=== PATIENT | female | born 1945 | race Caucasian/White ===

== ENCOUNTER → 2023-12-16 05:44 | Outpatient (REF) | payer MEDICARE, MEDICAID, SELFPAY ==
[2023-12-16 08:53] LABS: Hematocrit 36.8 % (37-47); Hemoglobin 11.4 g/dL (12.0-15.0); Mean Corpuscular Hgb 29.8 pg (27.0-32.0); Mean Corpuscular Volume 96.3 fL (81-99); Mean Platelet Vol. 9.2 fl (6.2-12.0); Platelet Count 438 K/mm3 (150-450); RBC Distribution Width CV 14.1 % (11.6-14.6); RBC Distribution Width SD 48.8 fl (35.1-43.9); Red Blood Count 3.82 M/mm3 (4.2-5.4); White Blood Count 13.4 K/mm3 (4.4-11.0)
[2023-12-16 09:39] LABS: ALB/GLOB Ratio 0.6 RATIO (0.9-2.4); AST(SGOT) 22 U/L (15-37); Alanine Aminotransfer ALT/SGPT 25 U/L (13-56); Albumin, Serum 2.4 g/dL (3.2-5.0); Alkaline Phosphatase 111 U/L (45-117); Anion Gap 5 (5-15); BUN 24 mg/dL (7-18); BUN/Creat Ratio 34.5 RATIO (10-20); Chloride 101 mmol/L (98-107); EST Glomerular Filtration Rate 87 mL/min (>60); Est Glom Filt Rate - Afr Amer 105 mL/min (>60); Globulin 4.2 g/dL (2.2-4.2); Glucose 142 mg/dL (74-106); Potassium 4.2 mmol/L (3.5-5.1); Protein, Total 6.6 g/dL (6.4-8.2); Sodium Level 136 mmol/L (136-145)
[2023-12-18 04:08] LABS: KEPPRA (LEVETIRACETAM) 29.4 ug/mL (10.0-40.0)
== END ==
LOC: OLS.SANC 05:44
PROVIDERS: Visit Provider Internal Medicine
DX: E78.5 Hyperlipidemia, unspecified (principal); I50.9 Heart failure, unspecified; I11.0 Hypertensive heart disease with heart failure
CPT/HCPCS: 36415; 80053; 80177; 85027

== ENCOUNTER → 2023-12-18 04:00 | Outpatient (REF) | payer MEDICARE, MEDICAID, SELFPAY ==
[2023-12-18 08:42] LABS: Hematocrit 36.3 % (37-47); Hemoglobin 11.4 g/dL (12.0-15.0); Mean Corp Hgb Conc 31.4 g/dL (32-36); Mean Corpuscular Hgb 30.2 pg (27.0-32.0); Platelet Count 377 K/mm3 (150-450); RBC Distribution Width CV 14.1 % (11.6-14.6); RBC Distribution Width SD 48.9 fl (35.1-43.9); Red Blood Count 3.78 M/mm3 (4.2-5.4); White Blood Count 10.6 K/mm3 (4.4-11.0)
[2023-12-18 08:53] LABS: Anion Gap 5 (5-15); BUN 23 mg/dL (7-18); BUN/Creat Ratio 34.7 RATIO (10-20); Calcium,Total 8.9 mg/dL (8.5-10.1); Chloride 97 mmol/L (98-107); Creatinine, Serum 0.66 mg/dL (0.55-1.02); EST Glomerular Filtration Rate 92 mL/min (>60); Est Glom Filt Rate - Afr Amer 111 mL/min (>60); Glucose 117 mg/dL (74-106); Potassium 3.6 mmol/L (3.5-5.1); Sodium Level 136 mmol/L (136-145)
[2023-12-18 09:11] LABS: Color, Urine Yellow (Yellow); Glucose, Dipstick Normal (Normal); Ketone-Dipstick Negative (Negative); Leukocyte Esterase-Dipstick 100 /ul (Negative); Nitrite-Dipstick Negative (Negative); Occult Blood-Urine Negative /ul (Negative); Protein-Dipstick Negative (Negative); Specific Gravity, Urine 1.015 (1.002-1.030); Urine Bilirubin Dipstick Negative (Negative); Urine Clarity Clear (Clear); Urine Urobilinogen Normal (Normal)
== END ==
LOC: OLS.SANC 04:00
PROVIDERS: Referring Provider Internal Medicine; Visit Provider Internal Medicine
DX: I50.9 Heart failure, unspecified (principal); J44.9 Chronic obstructive pulmonary disease, unspecified; E11.9 Type 2 diabetes mellitus without complications; Z79.899 Other long term (current) drug therapy
CPT/HCPCS: 36415; 80048; 81002; 85027; 87077; 87086; 87088; 87186

== ENCOUNTER → 2023-12-25 04:00 | Outpatient (REF) | payer MEDICARE, MEDICAID, SELFPAY ==
[2023-12-25 09:07] LABS: Hematocrit 35.5 % (37-47); Hemoglobin 11.1 g/dL (12.0-15.0); Mean Corp Hgb Conc 31.3 g/dL (32-36); Mean Corpuscular Hgb 30.2 pg (27.0-32.0); Mean Corpuscular Volume 96.5 fL (81-99); Platelet Count 219 K/mm3 (150-450); RBC Distribution Width CV 13.9 % (11.6-14.6); RBC Distribution Width SD 49.1 fl (35.1-43.9); Red Blood Count 3.68 M/mm3 (4.2-5.4); White Blood Count 8.5 K/mm3 (4.4-11.0)
[2023-12-25 09:29] LABS: Anion Gap 2 (5-15); BUN 19 mg/dL (7-18); BUN/Creat Ratio 17.3 RATIO (10-20); Chloride 96 mmol/L (98-107); EST Glomerular Filtration Rate 51 mL/min (>60); Est Glom Filt Rate - Afr Amer 62 mL/min (>60); Glucose 103 mg/dL (74-106); Potassium 3.4 mmol/L (3.5-5.1); Sodium Level 137 mmol/L (136-145)
== END ==
LOC: OLS.SANC 04:00
PROVIDERS: Referring Provider Internal Medicine; Visit Provider Internal Medicine
DX: J44.9 Chronic obstructive pulmonary disease, unspecified (principal); E11.9 Type 2 diabetes mellitus without complications; I10 Essential (primary) hypertension; E78.5 Hyperlipidemia, unspecified
CPT/HCPCS: 36415; 80048; 85027

== ENCOUNTER → 2024-05-20 | Outpatient (REF) | payer MEDICARE, MEDICAID, SELFPAY ==
[2024-05-20 08:22] LABS: Hematocrit 42.8 % (37-47); Hemoglobin 13.5 g/dL (12.0-15.0); Mean Corp Hgb Conc 31.5 g/dL (32-36); Mean Corpuscular Hgb 29.9 pg (27.0-32.0); Mean Corpuscular Volume 94.9 fL (81-99); Mean Platelet Vol. 9.7 fl (6.2-12.0); Platelet Count 280 K/mm3 (150-450); RBC Distribution Width CV 13.2 % (11.6-14.6); RBC Distribution Width SD 46.2 fl (35.1-43.9); Red Blood Count 4.51 M/mm3 (4.2-5.4); White Blood Count 11.1 K/mm3 (4.4-11.0)
[2024-05-20 08:24] LABS: Anion Gap 3 (5-15); BUN 15 mg/dL (7-18); BUN/Creat Ratio 17.3 RATIO (10-20); Calcium,Total 9.4 mg/dL (8.5-10.1); Chloride 106 mmol/L (98-107); Creatinine, Serum 0.87 mg/dL (0.55-1.02); EST Glomerular Filtration Rate 67 mL/min (>60); Est Glom Filt Rate - Afr Amer 82 mL/min (>60); Glucose 115 mg/dL (74-106); Potassium 4.1 mmol/L (3.5-5.1); Sodium Level 141 mmol/L (136-145)
[2024-05-20 08:48] LABS: Hemoglobin A1c 6.4 % (3.8-5.6)
[2024-05-22 16:11] LABS: KEPPRA (LEVETIRACETAM) 52.4 ug/mL (10.0-40.0)
== END ==
LOC: OLS.SANC 04:00
PROVIDERS: Referring Provider Internal Medicine; Visit Provider Internal Medicine
DX: J44.9 Chronic obstructive pulmonary disease, unspecified (principal); E11.9 Type 2 diabetes mellitus without complications; E78.5 Hyperlipidemia, unspecified; Z79.899 Other long term (current) drug therapy
CPT/HCPCS: 36415; 80048; 80177; 83036; 85027

== ENCOUNTER → 2024-06-05 05:00 | Outpatient (REF) | payer MEDICARE, MEDICAID, SELFPAY ==
[2024-06-08 16:09] LABS: KEPPRA (LEVETIRACETAM) 28.7 ug/mL (10.0-40.0)
== END ==
LOC: OLS.SANC 05:00
DX: Z79.899 Other long term (current) drug therapy (principal)
CPT/HCPCS: 36415; 80177

== ENCOUNTER → 2024-09-17 | Outpatient (REF) | payer MEDICARE, MEDICAID, SELFPAY | LOC: OLS.SANC 04:00 | DX: G40.89 Other seizures (principal); Z79.899 Other long term (current) drug therapy | CPT/HCPCS: 36415; 80177 ==

== ENCOUNTER → 2024-09-25 | Outpatient (REF) | payer MEDICARE, MEDICAID, SELFPAY ==
[2024-09-29 16:09] LABS: KEPPRA (LEVETIRACETAM) 28.8 ug/mL (10.0-40.0)
== END ==
LOC: OLS.SANC 05:00
PROVIDERS: Visit Provider Internal Medicine
DX: Z79.899 Other long term (current) drug therapy (principal)
CPT/HCPCS: 36415; 80177

== ENCOUNTER → 2024-11-16 | Outpatient (REF) | payer MEDICARE, SELFPAY ==
[2024-11-16 09:59] LABS: Hematocrit 37.4 % (37-47); Hemoglobin 11.6 g/dL (12.0-15.0); Mean Corpuscular Hgb 29.9 pg (27.0-32.0); Mean Corpuscular Volume 96.4 fL (81-99); Mean Platelet Vol. 9.7 fl (6.2-12.0); Platelet Count 315 K/mm3 (150-450); RBC Distribution Width CV 13.8 % (11.6-14.6); RBC Distribution Width SD 48.7 fl (35.1-43.9); Red Blood Count 3.88 M/mm3 (4.2-5.4); White Blood Count 8.8 K/mm3 (4.4-11.0)
[2024-11-16 10:14] LABS: Anion Gap 7 (5-15); BUN 12 mg/dL (4-19); BUN/Creat Ratio 15.5 RATIO (10-20); Calcium,Total 9.4 mg/dL (7.6-11.0); Carbon Dioxide 29.8 mmol/L (21.0-32.0); Chloride 104 mmol/L (98-108); EST Glomerular Filtration Rate 76 (>60); Glucose 98 mg/dL (70-99); Potassium 4.6 mmol/L (3.3-5.1); Sodium Level 142 mmol/L (133-145)
== END ==
LOC: OLS.SANC 05:00
DX: I50.9 Heart failure, unspecified (principal); J44.9 Chronic obstructive pulmonary disease, unspecified; E11.9 Type 2 diabetes mellitus without complications; E78.5 Hyperlipidemia, unspecified
CPT/HCPCS: 36415; 80048; 85027

== ENCOUNTER → 2024-12-30 | Outpatient (REF) | payer MEDICARE, SELFPAY ==
--- OUTSIDE RECORDS SUMMARY | 2024-12-30 04:09 | XMS RPT_ITS | CCD ---
Author Organization [facility] Care Team Providers Care Delicatessen Clerk Name Role Phone Emanuel Novak Unavailable Unavailable VAUGHN, ROMÁN Unavailable Unavailable VAUGHN, ROMÁN Unavailable Unavailable VAUGHN, ROMÁN Unavailable Unavailable VAUGHN, ROMÁN Unavailable Unavailable VAUGHN, ROMÁN Unavailable Unavailable OCTAVIA WILDE Unavailable Unavailable VAUGHN, ROMÁN Unavailable Unavailable VAUGHN, ROMÁN Unavailable Unavailable Cid, Mariaelena Unavailable Unavailable VAUGHN, ROMÁN Unavailable Unavailable VAUGHN, ROMÁN Unavailable Unavailable Hashiguchi, Luke Unavailable Unavailable VAUGHN, ROMÁN Unavailable Unavailable VAUGHN, ROMÁN Unavailable Unavailable Radwany, Umang Unavailable Unavailable VAUGHN, ROMÁN Unavailable Unavailable VAUGHN, ROMÁN Unavailable Unavailable Radwany, Umang Unavailable Unavailable VAUGHN, ROMÁN Unavailable Unavailable VAUGHN, ROMÁN Unavailable Unavailable Zaira EVANS, Shivani Tesfaye Primary Care Prov ider Savage Elise BURGER Unavailable Plate DO, Tami S Primary Care Provider Dahiana Martin MD Unavailable Plate DO, Tami S Primary Care Provider Dahiana Martin MD Unavailable Plate DO, Tami S Primary Care Provider Dahiana Martin MD Unavailable Plate DO, Tami S Primary Care Provider Dahiana Martin MD Unavailable Veronica EVANS MD, Dahiana Primary Care Provider Plate DO, Tami S Primary Care Provider Veronica EVANS MD, Dahiana Primary Care Provider Plate DO, Tami S Primary Care Provider Vaughn DO, Antonio Primary Care Provider Clement DO, Barbara Unavailable Clement DO, Barbara Unavailable Clement DO, Barbara Unavailable Dawood Carcamo RN Unavailable Unavailable Vaughn DO, Antonio Unavailable BILLY HOBSON Attending Unavailable No Family, Physician Primary Care Unavailable [place] DO, Susan Unavailable Vaughn DO, Antonio Primary Care Provider Dawood Carcamo RN Unavailable Unavailable Vaughn DO, Antonio Primary Care Provider [phone] VAUGHN, ANTONIO Primary Care Unavailable PLATE, TAMI S Admitting Unavailable PLATE, TAMI S Attending Unavailable VADIM HAIRSTONOSI Admitting Unavailable VAUGHN, ANTONIO Primary Care Unavailable LEW DUBON Attending Unavailera Acevedo MD [facility] Primary Care Provider HectorMayur Primary Care Provider Kristina EVANS, Dr. Dickerson Attending Provider Unava ilable Kristina EVANS, Dr. Dickerson Referring Provider Unava ilable Luis Whittaker Attending Provider Unavailab JASON Jimenez Attending Unavailable MAYUR YOUNG Primary Care Unavailable MORANJASON SEXTON Attending Unavailable HECTOR MAYUR Primary Care Unavailable VONNIE LOVE Attending Unavailable [facility] Primary Care Unavailable BA CLEMENT Attending Unavailable SELWYN PENA Admitting Unavailable MURIEL MCKEON Consulting Unavailable MAYUR YOUNG Primary Care Unavailable VONNIE LOVE Referring Unavailable HECTOR MAYUR Primary Care Unavailable Sadie Barnes MD Attending Provider Unava ilable Luis Whittaker Attending Unavailable Sadie Godfrey Attending Unavail able Katsaros RAJAN, Luis Attending Unavailable Capricea Sadie TOLENTINO Attending Unavail able Katsaros Luis TOLENTINO Attending Unavailable Desire TOLENTINO, Luis Referring Unavailable Katsaros RAJAN, Luis Referring Unavailable Katsaros RAJAN, Luis Attending Unavailable Katsaros RAJAN, Luis Referring Unavailable Katsaros OLS, Luis Attending Unavailable AcevedoJayla Morales Attending Unavailable Acevedo Jayla TOLENTINO Attending Unavailable Acevedo Jayla TOLENTINO Referring Unavailable Antonio Vaughn DO Primary Care Provider Adrian Antonio BURGER Unavailable Barbara Herman DO Unavailable Susan Rodriguez DO Unavailable ACEVEDO, ISIAH Primary Care Unavailable ANTONIO VAUGHN M Primary Care Unavailable LEYDI LEON Referring Unavailable ANTONOI VAUGHN M Primary Care Unavailable SELF Referring Unavailable ACEVEDO, ISIAH Primary Care Unavailable MINISTERIO ESPOSITO Attending Unavailable ACEVEDO, ISIAH Primary Care Unavailable YAZMIN MITCHELL Admitting Unavailable ACEVEDO, ISIAH Primary Care Unavailable YAZMIN MITCHELL Attending Unavailable ACEVEDO, ISIAH Primary Care Unavailable MARVA JACOBS Attending Unavailable HECTOR BERGER Admitting UnavailLAUREN Conrad Consulting Unavailable ACEVEDO, ISIAH Primary Care Unavailable ELIZA LION Attending Unavailable Allergies Allergy Classification Reported Allergen(s) Allergy Type Date of Onset Reaction(s) Facility Acetaminophen (3 sources) Acetaminophen Drug Allergy 6 GI Upset [facility] Work Phone: Nitrate Vasodilator (3 sources) Nitroglycerin Drug Allergy 5 Cough [facility] NSAIDs (3 sources) nabumetone Drug Allergy 5 GI Upset [facility] Work Phone: Opioid Agonists (6 sources) Codeine Drug Allergy 5 Rash, Other: See Comments [facility] Proton Pump Inhibitors (3 sources) Omeprazole Drug Allergy 5 Diarrhea [facility] (20 sources) Acetaminophen; Translations: [ACETAMINOPHEN] Drug Allergy 6 GI Upset [facility] Work Phone: (20 sources) Codeine; Translations: [CODEINE] Drug Allergy 5 Rash, Unknown [facility] (20 sources) nabumetone; Translations: [NABUMETONE] Drug Allergy 5 GI Upset [facility] (20 sources) Nitroglycerin; Translations: [NITROGLYCERIN] Drug Allergy 5 Cough, Unknown [facility] (20 sources) Omeprazole; Translations: [OMEPRAZOLE] Drug Allergy 5 Diarrhea [facility] (20 sources) Propoxyphene; Translations: [PROPOXYPHENE] Drug Allergy 5 Other: See Comments [facility] (8 sources) Acetaminophen Drug Allergy 6 Nausea And Vomiting [facility] (8 sources) Acetaminophen / Codeine Drug Allergy 4 [facility] (8 sources) nabumetone Drug Allergy 5 Nausea And Vomiting [facility] (8 sources) Nitroglycerin Allergy to substance 5 [facility] Medications Current Medications Medication Drug Class(es) Dates Sig (Normalized) Sig (Original) [id number] 200 actuat albuterol 0.09 mg/actuat metered dose inhaler (20 sources) beta2-Adrenergic Agonist Start: 12-11-2023 take 2 puff(s) by inhalation every six hours as needed for wheezing albuterol HFA (PROVENTIL HFA, VENTOLIN HFA) 90 mcg/actuation inhaler Inhale 2 Puffs as instructed every 6 hours as needed for wheezing/shortnes s of breath. 12/11/2023 Active Start: 11-18-2023 take 2 puff(s) by in halation three times daily Ventolin HFA 108 (90 Base) MCG/ACT inhaler Inhale 2 puffs three times daily. 11/18/2023 Active Start: 04-05-2023 End: 11-15-2023 take 2 puff(s) by mouth every six hours as needed albuterol HFA (PROVENTIL HFA, VENTOLIN HFA) 90 mcg/actuation inhaler Indications: MARY (obstructive sleep apnea) INHALE 2 PUFFS BY MOUTH EVERY 6 HOURS INSTRUCTED NEEDED 18 g 1 11/15/2023 Active Start: 03-09-2023 take 2 puff(s) by mo uth every six hours as needed albuterol HFA (PROVENTIL HFA, VENTOLIN HFA) 90 mcg/actuation inhaler Indications: MARY (obstructive sleep apnea) INHALE 2 PUFFS BY MOUTH EVERY 6 HOURS INSTRUCTED NEEDED 8.5 g 11 03/09/2023 Active Start: 12-30-2020 End: 09-21-2022 take 2 puff(s) by mouth every six hours as needed albuterol HFA (PROVENTIL HFA, VENTOLIN HFA) 90 mcg/actuation inhaler Indications: MARY (obstructive sleep apnea) INHALE 2 PUFFS BY MOUTH EVERY 6 HOURS INSTRUCTED NEEDED 8.5 g 11 09/21/2022 Suspended Comment on above: INHALE 2 PUFFS BY MO [facility] EVERY 6 HOURS INSTRUCTED NEEDED albuterol 0.833 mg/ml / ipratropium bromide 0.167 mg/ml inhalation solution (6 sources) Anticholinergic, beta2-Adrenergic Agonist Start: 10-19-2024 End: 11-18-2024 ipratropium-albuterol (Duo-Neb) 0.5-2.5 mg/3 mL nebulizer solution Indications: Chronic bronchitis, unspecified chronic bronchitis type (HCC) Take 3 mL by nebulization 4 times daily. 180 mL 1 11/18/2024 Active Start: 07-10-2024 End: 07-15-2024 3 mL, Nebulization, 3 times daily, First dose (after last modification) on Sat07/10/24 at 2000 Start: 07-07-2024 End: 07-10-2024 3 mL, Nebulization, 4 times daily, First dose on Sat07/07/24 at 2200 amoxicillin 875 mg oral tablet (1 source) Penicillin-class Antibacterial Start: 12-29-2023 End: 01-03-2024 take 1 tablet by mouth every twelve hours amoxicillin (AMOXIL) 875 mg tablet Take 1 tablet by mouth every 12 hours for 5 days. 10 tablet 0 12/29/2023 01/03/2024 Active amoxicillin 875 mg / clavulanate 125 mg oral tablet (2 sources) Penicillin-class Antibacterial Start: 08-15-2022 End: 08-20-2022 take 1 tablet by mouth twice daily amoxicillin-clavu lanic acid (AUGMENTIN) 875-125 mg per tablet Take 1 tablet by mouth twice daily for 5 days. 10 tablet 0 08/15/2022 08/20/2022 Active Comment on above: Take 1 tablet by jose juan twice daily for 5 days. apixaban 5 mg oral tablet (1 source) Factor Xa Inhibitor Start: 12-23-2024 take 1 tablet by mouth twice daily apixaban (ELIQUIS) 5 mg tab(s) Indications: Atrial flutter, unspecified type (HCC) Take 1 tablet by mouth two times a day. 90 tablet 3 12/23/2024 Active atorvastatin 80 mg oral tablet (20 sources) HMG-CoA Reductase Inhibitor Start: 07-18-2023 End: 07-15-2024 take 1 tablet by mouth once daily at bedtime atorvastatin (LIPITOR) 80 mg tablet Indications: Type 2 diabetes mellitus with complication, without long-term current use of insulin (HCC) Take 1 tablet by mouth daily at bedtime. 90 tablet 1 11/15/2023 Active Start: 02-02-2021 End: 04-06-2023 take 1 tablet by mouth once daily at bedtime atorvastatin (LIPITOR) 80 mg tablet Indications: Type 2 diabetes mellitus with complication, without long-term current use of insulin (HCC) Take 1 tablet by mouth daily at bedtime. 90 tablet 1 04/05/2023 Active Comment on above: TAKE 1 TABLET BY JOSE JUAN TH AT BEDTIME Take 1 tablet by jose juan th daily at bedtime. TAKE 1 TABLET BY JOSE JUAN TH EVERY NIGHT AT BEDTIME D7-ojpkv-L35-coffee -phosphatid 1.7 mg-400 mcg- 2.4 mcg cap (20 sources) Start: 12-11-2023 take 1 capsule by mouth once daily L2-higzz-X84-coffe e-phosphatid 1.7 mg-400 mcg- 2.4 mcg cap Take 1 capsule by mouth once daily. 12/11/2023 Active Start: 12-11-2023 take 1 capsule by mouth once daily R7-wtzcb-C29Q08-dzsozw-qsxlakskvc 1.7 mg-40 0 mcg- 2.4 mcg cap Take 1 capsule by mouth once daily. 0 12/11/2023 Active Start: 11-15-2023 take 1 capsule by mouth once daily O8-scqsz-O27J67-kjnpwp-kgwomrrdxp 1.7 mg-40 0 mcg- 2.4 mcg cap Take 1 capsule by mouth once daily. 90 capsule 1 11/15/2023 Active End: 11-15-2023 take 1 capsule by mouth once daily A4-rbunm-Q17H07-ufelhx-huuqcomudz 1.7 mg-40 0 mcg- 2.4 mcg cap Take 1 capsule by mouth once daily. 0 11/15/2023 Discontinued take 1 capsule by mouth once daily A2-mecun-H25G34-zwtuxw-dkjhhddqol 1.7 mg-40 0 mcg- 2.4 mcg cap Take 1 capsule by mouth once daily. 0 Active take 1 capsule by mouth once daily S9-ymeuq-F86N69-xpxqbf-vesoihjopf 1.7 mg-40 0 mcg- 2.4 mcg cap Take 1 capsule by mouth once daily. 0 Suspended Comment on above: Take 1 capsule by mo [facility] once daily. biotin 10 mg oral capsule (20 sources) Start: 12-11-2023 take 1 capsule by mouth once daily Biotin 10,000 mcg cap Take 1 capsule by mouth once daily. 12/11/2023 Active Start: 12-11-2023 biotin 10 MG c apsule Take 10,000 mcg by mouth daily. 12/11/2023 Active End: 12-09-2024 take 1 tablet by mouth once daily BIOTIN 10,000 TABLET Take 1 tablet by mouth once daily. 12/09/2024 Discontinued [facility] BI[facility]IN 10,000 TABLET Take 1 tablet by mouth once daily. Active take 1 tablet by jose juan once daily BIOTIN 10,000 TABLET Take 1 tablet by mouth once daily. 0 Active Comment on above: Take 1 tablet by jose juan once daily. bisacodyl 5 mg delayed release oral tablet (2 sources) Stimulant Laxative take 1 tablet by mouth every twenty-four hours as needed for constipation bisacodyl (Bisacodyl EC) 5 MG EC tablet Take 5 mg by mouth Daily as needed for constipation. Do not crush, chew, or split. Active calcium carbonate 1250 mg / cholecalciferol 200 unt oral tablet (20 sources) Vitamin D Start: 03-09-20 take 1 tablet by mouth once daily in the morning calcium-carbonate -vitamin D3 (OYSTER SHELL CALCIUM-VITAMIN D) 500 mg-5 mcg (200 unit) per tablet TAKE 1 TABLET BY MOUTH EVERY MORNING 30 tablet 5 10/08/2023 Active Start: 05-04-2022 End: 12-28-2022 take 1 tablet by mouth once daily in the morning fulwhzu-pocmvuvux-rgpfcey D3 (OYSTER SHE LL CALCIUM-VITAMIN D) 500 mg-5 mcg (200 unit) per tablet TAKE 1 TABLET BY MOUTH EVERY MORNING 30 tablet 5 12/28/2022 Suspended Start: 03-17-2021 End: 02-26-2022 take 1 tablet by mouth once daily in the morning kfqmqsp-auiophrda-dufxvua D3 (OYSTER SHE LL CALCIUM-VITAMIN D) 500 mg(1,250mg) -200 unit per tablet TAKE 1 TABLET BY MOUTH EVERY MORNING 31 tablet 11 03/17/2021 02/26/2022 Discontinued (.All criteria met for discontinuation) Comment on above: TAKE 1 TABLET BY JOSE JUAN TH EVERY MORNING Calcium Carbonate-Vitamin D (Oyster Shell Calcium/D) 500-5 MG-MCG tablet (10 sources) Start: take 1 tablet by mouth once daily Calcium Carbonate-Vitamin D (Oyster Shell Calcium/D) 500-5 MG-MCG tablet Take 1 tablet by mouth daily. 10/08/2023 Active cefdinir 300 mg oral capsule (3 sources) Cephalosporin Antibacterial Start: End: cefdinir (OMNICEF) 300 mg capsule Take 1 capsule by mouth two times a day for 1 day. Patient should start on November 06, 2024. 2 capsule 11/06/2024 11/07/2024 Active cetirizine hydrochloride 10 mg oral tablet (20 sources) Histamine-1 Receptor Antagonist Start: take 0.5 tablet by mouth once daily cetirizine (ZyrTEC) 10 MG tablet Take 0.5 tablets (5 mg) by mouth daily. 0 07/14/2024 Active Start: 07-09-2024 End: 07-15-2024 take 5 mg by mouth once daily 5 mg, Oral, Daily, First dose on [place] 07/09/24 at 0800 Start: 03-09-2023 End: 07-14-2024 take 1 tablet by mouth once daily cetirizine (ZYRTEC) 10 mg tablet Indications: Allergic rhinitis, unspecified seasonality, unspecified trigger Take 1 tablet by mouth once daily. 31 tablet 11 03/09/2023 Active Start: 02-13-2023 End: 03-07-2023 take 1 tablet by mouth once daily cetirizine (ZYRTEC) 10 mg tablet Indications: Allergic rhinitis, unspecified seasonality, unspecified trigger TAKE 1 TABLET BY MOUTH EVERY DAY 31 tablet 11 03/07/2023 Active Start: 05-03-2021 End: 01-29-2023 take 1 tablet by mouth once daily cetirizine (ZYRTEC) 10 mg tablet Take 1 tablet by mouth once daily. 30 tablet 5 08/02/2022 01/29/2023 Active Comment on above: Take 1 tablet by jose juan once daily. TAKE 1 TABLET BY JOSE JUAN TH EVERY DAY Cobalamin Combinations (Neuriva Plus) capsule (10 sources) Start: 11-15-19 take 1 capsule by mouth once daily Cobalamin Combinations (Neuriva Plus) capsule Take 1 capsule by mouth daily. 11/15/2023 Active diclofenac sodium 0.01 mg/mg topical gel (20 sources) Nonsteroidal Anti-inflammatory Drug Start: 04-05-20 apply 4 g topically every six hours as needed diclofenac (VOLTAREN) 1 % topical gel Apply 4 g to affected area four times a day as needed (Pain). 450 g 2 04/05/2023 Active Start: 03-09-2023 apply 4 g topically every six hours as needed diclofenac (VOLTAREN) 1 % topical gel Apply 4 g to affected area four times daily as needed (Pain). 450 g 2 03/09/2023 Active Start: 05-04-2022 apply 4 g topically every six hours as needed diclofenac (VOLTAREN) 1 % topical gel Apply 4 g to affected area four times daily as needed (Pain). 450 g 2 05/04/2022 Suspended Start: 02-14-2022 End: 05-04-2022 diclofenac (VOLTAREN) 1 % to pical gel Comment on above: Apply 4 g to affecte d area four times daily as needed (Pain). Apply 4 g to affecte d area four times a day as needed (Pain). doxycycline monohydrate 100 mg oral tablet (2 sources) Tetracycline-class Drug Start: 3 End: 3 take 1 tablet by mouth twice daily doxycycline monohydrate 100 mg tablet Take 1 tablet by mouth twice daily for 5 days. 10 tablet 0 08/15/2022 08/20/2022 Active Comment on above: Take 1 tablet by jose juan twice daily for 5 days. fluticasone propionate 0.05 mg/actuat metered dose nasal spray (20 sources) Corticosteroid Start: 4 take 1 spray(s) nasal route once daily fluticasone (FLONASE ALLERGY RELIEF) 50 mcg/actuation nasal spray Use 1 [place] in each nostril once daily. 12/11/2023 Active Start: 11-15-2023 fluticasone (F lonase) 50 MCG/ACT nasal spray 1 spray daily. 11/15/2023 Active Start: 07-24-2023 End: 11-15-2023 take 1 spray(s) nasal route once daily fluticasone (FLONASE) 50 mcg/actuation nasal spray Indications: Allergic rhinitis, unspecified seasonality, unspecified trigger Use 1 [place] in each nostril once daily. 16 g 11/15/2023 Active Start: 04-05-2023 End: 04-12-2023 take 1 spray(s) nasal route once daily fluticasone (FLONASE) 50 mcg/actuation nasal spray Indications: Allergic rhinitis, unspecified seasonality, unspecified trigger Use 1 [place] in each nostril once daily. 16 g 0 04/12/2023 Active Start: 11-02-2018 End: 02-26-2022 take 1 spray(s) nasal route once daily fluticasone (FLONASE) 50 mcg/actuation nasal spray USE 1 SPRAY IN EACH NOSTRIL EVERY DAY 16 g 11 11/02/2018 02/26/2022 Discontinued (.All criteria met for discontinuation) Comment on above: USE 1 SPRAY IN EACH NOSTRIL EVERY DAY Use 1 [place] in each nostril once daily. isopropyl alcohol 0.7 ml/ml medicated pad (20 sources) Start: 11-18-2023 Alcohol Swabs (Alcohol Prep) 70 % pads 11/18/2023 Active Start: 03-09-2023 End: 10-23-2023 alcohol swabs (ALCOHOL PREP PADS) Indications: Type 2 diabetes mellitus with complication, without long-term current use of insulin (HCC) APPLY TOPICALLY TO AFFECTED AREA(S) EVERY DAY DIRECTED 100 Each 11 03/09/2023 10/23/2023 Discontinued (Adjust Sig - Block E-Cancel) Start: 03-17-2021 End: 03-07-2023 alcohol swabs (ALCOHOL PREP PADS) Indications: Type 2 diabetes mellitus with complication, without long-term current use of insulin (HCC) APPLY TOPICALLY TO AFFECTED AREA(S) EVERY DAY DIRECTED 100 Each 11 03/07/2023 Active Comment on above: APPLY 1 APPLICATION TOPICALLY TO THE AFFECTED AREA(S) EVERY DAY APPLY TOPICALLY TO A FFECTED AREA(S) EVERY DAY DIRECTED levETIRAcetam 750 mg oral tablet (20 sources) Start: 12-29-19 End: 08-11-19 take 1 tablet by mouth twice daily levETIRAcetam (Keppra) 750 MG tablet Take 750 mg by mouth twice a day. 11/15/2023 Active Start: 08-04-2021 End: 12-20-2022 take 1 tablet by mouth twice daily levETIRAcetam (KEPPRA) 750 mg tablet Indications: Seizure disorder (HCC) Take 1 tablet by mouth twice daily. 180 tablet 0 09/21/2022 Active take 1 tablet by jose juan th twice daily levETIRAcetam (KEPPRA) 500 mg tablet Take 500 mg by mouth two times a day. Active Comment on above: TAKE 1 TABLET BY JOSE JUAN TH TWICE DAILY Take 1 tablet by jose juan th twice daily. Take 1 tablet by jose juan th two times a day. magnesium hydroxide 80 mg/ml oral suspension (2 sources) take 30 mL by mouth once daily magnesium hydroxide (Milk of Magnesia) 400 MG/5ML suspension Take 30 mL by mouth Nightly. Active magnesium oxide 400 mg oral tablet (9 sources) Start: 5 End: 5 take 1 tablet by mouth once daily magnesium oxide (MAG-OX) 400 mg (241.3 mg magnesium) tablet Take 1 tablet by mouth once daily. 30 tablet 11/05/2024 Active metFORMIN hydrochloride 1000 mg oral tablet (20 sources) Biguanide Start: 2 End: 5 take 1 tablet by mouth twice daily at mealtime metFORMIN (GLUCOPHAGE) 1,000 mg tablet Indications: Type 2 diabetes mellitus with complication, without long-term current use of insulin (HCC) Take 1 tablet by mouth two times a day with meals. 180 tablet 2 11/15/2023 Active Start: 09-01-2021 take 1 tablet by jose juan th twice daily at mealtime metFORMIN (GLUCOPHAGE) 1,000 mg tablet Indications: Type 2 diabetes mellitus with complication, without long-term current use of insulin (HCC) TAKE 1 TABLET BY MOUTH TWICE DAILY WITH MEALS 62 tablet 11 09/01/2021 Active Comment on above: TAKE 1 TABLET BY JOSE JUAN TH TWICE DAILY WITH MEALS Take 1 tablet by jose juan th twice daily with meals. Take 1 tablet by jose juan th two times a day with meals. multivitamin with minerals (VISION/OPTIGEN) tablet (20 sources) Start: 03-09-2023 take 1 tablet by mouth once daily multivitamin with minerals (VISION/OPTIGEN) tablet Take 1 tablet by mouth once daily. 250 tablet 3 03/09/2023 Suspended Start: 03-09-2023 take 1 tablet by jose juan th once daily multivitamin with minerals (VISION/OPTIGEN) tablet Take 1 tablet by mouth once daily. 250 tablet 3 03/09/2023 Active take 1 tablet by jose juan th once daily multivitamin with minerals (VISION/OPTIGEN) tablet Take 1 tablet by mouth once daily. 0 Suspended take 1 tablet by jose juan th once daily multivitamin with minerals (VISION/OPTIGEN) tablet Take 1 tablet by mouth once daily. 0 Active Comment on above: Take 1 tablet by jose juan th once daily. mupirocin 0.02 mg/mg topical ointment (20 sources) RNA Synthetase Inhibitor Antibacterial Start: 03-09-2023 End: 03-14-2023 mupirocin (BACTROBAN) 2 % ointment Indications: Skin lesion of breast Apply 1 application to affected area three times daily for 5 days. 22 g 0 03/09/2023 03/14/2023 Active Start: 01-30-2022 mupirocin (TL TROBAN) 2 % ointment Indications: Skin lesion of breast Apply 1 application to affected area three times daily. 22 g 0 01/30/2022 Suspended Comment on above: Apply 1 application to affected area three times daily. Apply 1 application to affected area three times daily for 5 days. nystatin 100 unt/mg topical powder (20 sources) Polyene Antifungal Start: 11-18-2023 Nystop [id number] UNIT/GM powder Apply 1 Application topically daily. 11/18/2023 Active Start: 04-05-2023 nystatin (MYCO STATIN) powder APPLY TOPICALLY TO AFFECTED AREAS TWICE DAILY 60 g 11 04/05/2023 Active Start: 03-09-2023 nystatin (MYCO STATIN) powder APPLY TOPICALLY TO AFFECTED AREAS TWICE DAILY 60 g 11 03/09/2023 Active Start: 11-26-2022 nystatin (MYCO STATIN) powder APPLY TOPICALLY TO AFFECTED AREAS TWICE DAILY 60 g 11 11/26/2022 Suspended Start: 12-06-2020 End: 12-06-2021 nystatin (NYSTOP) powder ABDIRIZAK LY TOPICALLY TO AFFECTED AREA(S) two TIMES DAILY 60 g 11 12/06/2021 Active Comment on above: APPLY TOPICALLY TO A FFECTED AREA(S) two TIMES DAILY APPLY TOPICALLY TO A FFECTED AREAS TWICE DAILY polyethylene glycol 3350 04471 mg powder for oral solution (11 sources) Osmotic Laxative Start: 11-05-2024 polyethylene glycol 3350 (MIRALAX) 17 gram/dose powder Take 17 g by mouth once daily. Dissolve dose in 4 - 8 ounces of liquid and take as directed. 476 g 11/05/2024 Active Start: 11-05-2024 polyethylene g lycol, PEG, 3350 (Glycolax) 17 GM/SCOOP powder Take 17 g by mouth daily. 11/05/2024 Active Start: 07-07-2024 End: 07-15-2024 take 17 g by mouth every twenty-four hours as needed for constipation polyethylene glycol 400 4 mg/ml / propylene glycol 3 mg/ml ophthalmic solution (1 source) Start: 11-21-2023 Polyethyl Glycol-Propyl Glycol (Systane) 0.4-0.3 % solution 1 drop 2 times daily. 11/21/2023 Active polyvinyl alcohol 0.014 ml/ml ophthalmic solution (20 sources) Start: 04-05-2023 End: 09-14-2024 polyvinyl alcohol (LIQUIFILM TEARS) 1.4 % ophthalmic solution Use 1 Drop in both eyes as needed. 15 mL 11/21/2023 Active Comment on above: Use 1 Drop in both e yes as needed. prednisoLONE acetate 10 mg/ml ophthalmic suspension (20 sources) Corticosteroid Start: 10-26-2023 take 1 drop(s) into the eye(s) every eight hours prednisoLONE acetate (Pred-Forte) 1 % ophthalmic suspension Administer 1 drop into affected eye(s) every 8 hours. 10/26/2023 Active Start: 06-13-2020 End: 02-26-2022 prednisoLONE acetate (PRED F ORTE, ECONOPRED PLUS) 1 % ophthalmic suspension Use 1 Drop in the left eye four times daily. 5 mL 1 06/13/2020 02/26/2022 Discontinued prednisoLONE noemy benitez (PRED FORTE) 1 % ophthalmic suspension Use 1 Drop in both eyes three times a day. Active End: 12-09-2024 prednisoLONE acetate (PRED F ORTE, ECONOPRED PLUS) 1 % ophthalmic suspension 1 Drop three times a day. Both eyes 12/09/2024 Discontinued prednisoLONE noemy benitez (PRED FORTE, ECONOPRED PLUS) 1 % ophthalmic suspension 1 Drop three times a day. Both eyes 0 Active Comment on above: Use 1 Drop in the le ft eye four times daily. 1 Drop three times a day. 1 Drop three times a day. Both eyes predniSONE 20 mg oral tablet (6 sources) Start: 07-13-2024 End: 07-18-2024 take 1 tablet by mouth once daily predniSONE (Deltasone) 20 MG tablet Take 1 tablet (20 mg) by mouth daily for 2 doses. 2 tablet 07/16/2024 07/18/2024 Active Start: 12-12-2023 End: 12-14-2023 take 2 tablets by mouth once daily predniSONE (DELTASONE) 20 mg tablet Take 2 tablets by mouth once daily for 2 doses. 4 tablet 0 12/12/2023 12/14/2023 Active Start: 05-18-2023 End: 05-20-2023 take 2 tablets by mouth once daily predniSONE (DELTASONE) 20 mg tablet Take 2 tablets by mouth once daily for 2 doses. 4 tablet 0 05/18/2023 05/20/2023 Suspended Comment on above: Take 2 tablets by [facility] once daily for 2 doses. sennosides, residential 8.6 mg oral tablet (8 sources) Start: 11-06-19 25 End: 12-06-19 25 take 1 tablet by mouth once daily sennosides (Senokot) 8.6 MG tablet Take 8.6 mg by mouth daily. 11/05/2024 12/05/2024 Active 30 actuat umeclidinium 0.0625 mg/actuat / vilanterol 0.025 mg/actuat dry powder inhaler (20 sources) Anticholinergic, beta2-Adrenergic Agonist Start: 05-18-20 23 End: 11-15-19 24 take 1 dose by inhalation once daily umeclidinium-vilant key (ANORO ELLIPTA) 62.5-25 mcg/actuation inhaler Inhale 1 Inhalation as instructed once daily. 60 Each 3 11/15/2023 Active Comment on above: Inhale 1 Inhalation as instructed once daily. Vitamin E external oil (20 sources) Start: 10-03-19 Vitamin E external oil Apply 1 application to affected area once daily. 30 mL 10/03/2023 Active Start: 10-03-2023 Vitamin E exte rnal oil Apply 1 application to affected area once daily. 30 mL 0 10/03/2023 Suspended Start: 10-03-2023 Vitamin E exte rnal oil Apply 1 application to affected area once daily. 30 mL 0 10/03/2023 Active Start: 06-10-2023 Vitamin E exte rnal oil Apply 1 application to affected area once daily. 30 mL 0 06/10/2023 Active Start: 04-24-2023 End: 06-10-2023 Vitamin E external oil Apply 1 application to affected area once daily. 30 mL 0 04/24/2023 06/10/2023 Discontinued Start: 04-24-2023 Vitamin E exte rnal oil Apply 1 application to affected area once daily. 30 mL 0 04/24/2023 Suspended Start: 04-24-2023 Vitamin E exte rnal oil Apply 1 application to affected area once daily. 30 mL 0 04/24/2023 Active Comment on above: Apply 1 application to affected area once daily. Completed/Discontinued Medications Medication Drug Class(es) Dates Sig (Normalized) Sig (Original) Acetaminophen (14 sources) Start: 07-07-2024 End: 07-15-2024 take 1 tablet by mouth every six hours as needed for pain and fever acetaminophen (Tylenol) tablet 650 mg Start: 07-07-2024 End: 07-07-2024 650 mg, Oral, Once, On Sat at 1455, For 1 dose, Maximum dose of acetaminophen is 4000 mg from all sources in 24 hours. take 2 capsules by m outh every six hours as needed acetaminophen 325 mg cap Take 650 mg by mouth every 6 hours as needed for pain or fever (specify temp.). Active take 325 mg rectal r oute every four hours as needed for pain acetaminophen (Tylenol) 325 MG suppository Insert 325 mg into the rectum every 4 hours as needed for mild pain (1-3). Active aspirin 81 mg delayed release oral tablet (20 sources) Platelet Aggregation Inhibitor, Nonsteroidal Anti-inflammatory Drug Start: 07-08-2024 End: 07-15-2024 take 81 mg by mouth once daily 81 mg, Oral, Daily, First dose on Sat07/08/24 at 1150, Do not crush, chew, or split. Start: 12-11-2023 take 1 tablet by jose juan th once daily aspirin 81 mg chewable tablet Take 1 tablet by mouth once daily. 12/11/2023 Active Start: 04-05-2023 End: 11-15-2023 aspirin ([place] CHEWABLE ASPI RIN) 81 mg chewable tablet Orally 100 tablet 2 11/15/2023 Active Start: 03-09-2023 aspirin (VALORIE CHEWABLE ASPIRIN) 81 mg chewable tablet Orally 100 tablet 2 03/09/2023 Active Start: 01-20-2018 End: 02-26-2022 take 1 tablet by mouth once daily aspirin, enteric coated (ASPIRIN, ENTERIC COATED) 81 mg EC tablet Indications: Type 2 diabetes mellitus with other specified complication, without long-term current use of insulin (HCC) Take 81 mg by mouth once daily. 0 01/20/2018 02/26/2022 Discontinued (.All criteria met for discontinuation) aspirin (VALORIE C HEWABLE ASPIRIN) 81 mg chewable tablet Orally 0 Suspended Comment on above: Take 81 mg by mouth once daily. Orally B6/folic/B12/coffee/phosphat i d (NEURIVA PLUS BRAIN PERFORMANCE ORAL) (20 sources) B6/folic/B12/cof fee/phosphat id (NEURIVA PLUS BRAIN PERFORMANCE ORAL) Take by mouth. 0 Suspended B6/folic/B12/cof fee/phosphatid (NEURIVA PLUS BRAIN PERFORMANCE ORAL) Take by mouth. 0 Active Comment on above: Take by mouth. Calcium Carbonate (18 sources) End: 07-05-2022 calcium carbonate (TUMS 500 ORAL) Take by mouth. 0 07/05/2022 Discontinued calcium carbonat e (TUMS 500 ORAL) Take by mouth. 0 Active Comment on above: Take by mouth. cholecalciferol 9.52 unt/ml / glucose 357 mg/ml oral gel (2 sources) Vitamin D Start: 07-07-2024 End: 07-15-2024 Diaper,Brief, Adult,Disposable (PREVAIL UNDERWEAR) (20 sources) Start: 10-09-2023 End: 10-23-2023 Diaper,Brief, Adult,Disposable (PREVAIL UNDERWEAR) Indications: Stress incontinence 1 Units once daily. 48 Each 10/09/2023 10/23/2023 Discontinued (Adjust Sig - Block E-Cancel) Start: 10-09-2023 Diaper,Brief, Adult,Disposable (PREVAIL UNDERWEAR) Indications: Stress incontinence 1 Units once daily. 48 Each 10/09/2023 Suspended Start: 10-09-2023 Diaper,Brief, Adult,Disposable (PREVAIL UNDERWEAR) Indications: Stress incontinence 1 Units once daily. 48 Each 10/09/2023 Active Start: 03-09-2023 End: 10-09-2023 Diaper,Brief, Adult,Disposab le (PREVAIL UNDERWEAR) Indications: Stress incontinence 1 Units once daily. 48 Each 03/09/2023 10/09/2023 Discontinued Start: 03-09-2023 Diaper,Brief, Adult,Disposable (PREVAIL UNDERWEAR) Indications: Stress incontinence 1 Units once daily. 48 Each 03/09/2023 Suspended Start: 03-09-2023 Diaper,Brief, Adult,Disposable (PREVAIL UNDERWEAR) Indications: Stress incontinence 1 Units once daily. 48 Each 03/09/2023 Active Comment on above: 1 Units once daily. Diaper,Brief, Adult,Disposable (PREVAIL UNDERWEAR) misc (20 sources) Start: 09-11-2019 Diaper,Brief, Adult,Disposable (PREVAIL UNDERWEAR) misc Indications: Stress incontinence 1 Units once daily. 48 Each 09/11/2019 Suspended Start: 09-11-2019 Diaper,Brief, Adult,Disposable (PREVAIL UNDERWEAR) misc Indications: Stress incontinence 1 Units once daily. 48 Each 09/11/2019 Active Comment on above: 1 Units once daily. Dietary Supplement cap (7 sources) End: 02-26-2022 take 1 capsule by mouth once daily Dietary Supplement cap Take by mouth once daily. Prevagen to help with memory 0 02/26/2022 Discontinued (.All criteria met for discontinuation) take 1 capsule by mouth once cain ly Dietary Supplement cap Take by mouth once daily. Prevagen to help with memory 0 Active Comment on above: Take by mouth once d aily. Prevagen to help with memory Disposable Gloves (DISPOSABLE LATEX-FREE GLOVES) [facility] (7 sources) Start: 10-09-2023 End: 10-23-2023 Disposable Gloves (DISPOSABLE LATEX-FREE GLOVES) [facility] 1 Box as directed. 10 Each 10/09/2023 10/23/2023 Discontinued (Adjust Sig - Block E-Cancel) Start: 10-09-2023 Disposable Katie ves (DISPOSABLE LATEX-FREE GLOVES) [facility] 1 Box as directed. 10 Each 1 10/09/2023 Suspended Start: 10-09-2023 Disposable Katie ves (DISPOSABLE LATEX-FREE GLOVES) [facility] 1 Box as directed. 10 Each 10/09/2023 Active Comment on above: 1 Box as directed. DL-Vitamin E Acetate oil (18 sources) Start: 09-22-2020 End: 02-26-2022 DL-Vitamin E Acetate oil Apply 1 application to affected area once daily. 89 mL 2 09/22/2020 02/26/2022 Discontinued (.All criteria met for discontinuation) Start: 09-22-2020 DL-Vitamin E A cetate oil Apply 1 application to affected area once daily. 89 mL 2 09/22/2020 Active Comment on above: Apply 1 application to affected area once daily. 0.4 ml enoxaparin sodium 100 mg/ml prefilled syringe (2 sources) Low Molecular Weight Heparin Start: 025 End: 025 inject 40 mg by subcutaneous injection every twenty-four hours 40 mg, SubCUTAneous, Every 24 hours scheduled (Daily), First dose on Sat07/08/24 at 0900, Indication of Use: Prophylaxis-DVT/PE, Indications: Prophylaxis of Venous Thromboembolism ergocalciferol, vitamin D2, (VITAMIN D2 ORAL) (18 sources) End: 022 ergocalciferol, vitamin D2, (VITAMIN D2 ORAL) Take by mouth. 0 07/05/2022 Discontinued ergocalciferol, vitamin D2, (VITAMIN D2 ORAL) Take by mouth. 0 Active Comment on above: Take by mouth. 120 actuat formoterol fumarate 0.0048 mg/actuat / glycopyrrolate 0.009 mg/actuat metered dose inhaler (2 sources) beta2-Adrenergic Agonist Start: 07-09-2024 End: 07-15-2024 take 2 puff(s) by inhalation twice daily 2 puff, Inhalation, 2 times daily, First dose on Sat07/09/24 at 0800 2 ml furosemide 10 mg/ml injection (20 sources) Loop Diuretic Start: 07-13-2024 End: 07-13-2024 40 mg, IntraVENous, Once, On Sat07/13/24 at 0930, For 1 dose Start: 07-10-2024 End: 07-11-2024 40 mg, IntraVENous, 2 times daily, First dose on Sat07/10/24 at 0945, For 2 days Start: 07-08-2024 End: 07-09-2024 40 mg, IntraVENous, Once, On Sat07/09/24 at 0910, For 1 dose Start: 12-11-2023 End: 01-17-2024 take 2 tablets by mouth once daily, then take 1 tablet by mouth once daily furosemide (LASIX) 20 mg tablet Take 2 tablets by mouth once daily for 7 days, THEN 1 tablet once daily. 12/11/2023 Active Start: 05-24-2023 End: 07-15-2024 take 1 tablet by mouth once daily furosemide (LASIX) 20 mg tablet Take 1 tablet by mouth once daily. 90 tablet 1 11/15/2023 Active Start: 05-17-2023 take 1 tablet by jose juan th once daily furosemide (LASIX) 40 mg tablet Take 1 tablet by mouth once daily. 30 tablet 0 05/17/2023 Suspended Start: 05-03-2021 End: 04-06-2023 furosemide (LASIX) 20 mg tab let Indications: Leg swelling Take 1 tablet by mouth as needed. 90 tablet 1 04/05/2023 Active Comment on above: Take 1 tablet by jose juan th once daily. TAKE 1 TABLET BY JOSE JUAN TH EVERY DAY Take 1 tablet by jose juan th as needed. glucagon (rdna) 1 mg injection (2 sources) Antihypoglycemic Agent Start: 07-07-2024 End: 07-15-2024 glucosamine/msm/chond roit sulf (GLUCOSAMINE [id number] ORAL) (18 sources) End: 02-26-2022 glucosamine/msm/chondro it sulf (GLUCOSAMINE [id number] ORAL) Take by mouth once daily. 0 02/26/2022 Discontinued (.All criteria met for discontinuation) glucosamine/msm/ chondroit sulf (GLUCOSAMINE [id number] ORAL) Take by mouth once daily. 0 Active Comment on above: Take by mouth once d aily. 150 ml glucose 50 mg/ml inje ction (4 sources) Start: 07-07-2024 End: 07-15-2024 Start: 07-07-2024 End: 07-15-2024 12 hr guaiFENesin 600 mg extended release oral tablet (2 sources) Start: 07-07-2024 End: 07-15-2024 take 600 mg by mouth twice daily 600 mg, Oral, 2 times daily, First dose on Sat07/07/24 at 2200, Administer with plenty of fluids to ensure proper action. Do not crush, chew, or split. Incontinence Pad, Liner, Disp (BLADDER CONTROL PAD EXTRA PLUS) pads (18 sources) Start: 05-05-2021 End: 02-26-2022 Incontinence Pad, Liner, Disp (BLADDER CONTROL PAD EXTRA PLUS) pads Indications: Stress incontinence Change pad 4 times daily as needed 120 Each 5 05/05/2021 02/26/2022 Discontinued (.All criteria met for discontinuation) Start: 05-05-2021 Incontinence P ad, Liner, Disp (BLADDER CONTROL PAD EXTRA PLUS) pads Indications: Stress incontinence Change pad 4 times daily as needed 120 Each 5 05/05/2021 Active Comment on above: Change pad 4 times d aily as needed Incontinence Pad, Liner, Disp (PREVAIL PADS) pads (18 sources) Start: 09-11-2019 End: 02-26-2022 Incontinence Pad, Liner, Disp (PREVAIL PADS) pads Indications: Stress incontinence 1 Units once daily. 66 Each 5 09/11/2019 02/26/2022 Discontinued (.All criteria met for discontinuation) Start: 09-11-2019 Incontinence P ad, Liner, Disp (PREVAIL PADS) pads Indications: Stress incontinence 1 Units once daily. 66 Each 5 09/11/2019 Active Comment on above: 1 Units once daily. Incontinence Pad, Liner, Disp pads (20 sources) Start: 10-09-2023 End: 10-23-2023 Incontinence Pad, Liner, Disp pads Indications: Stress incontinence Use as many pads/liners daily as needed 200 Each 4 10/09/2023 10/23/2023 Discontinued (Adjust Sig - Block E-Cancel) Start: 10-09-2023 Incontinence P ad, Liner, Disp pads Indications: Stress incontinence Use as many pads/liners daily as needed 200 Each 4 10/09/2023 Suspended Start: 10-09-2023 Incontinence P ad, Liner, Disp pads Indications: Stress incontinence Use as many pads/liners daily as needed 200 Each 10/09/2023 Active Start: 03-09-2023 End: 10-23-2023 Incontinence Pad, Liner, Dis p pads 1 Pad as needed. 200 Each 03/09/2023 10/23/2023 Discontinued (Adjust Sig - Block E-Cancel) Start: 03-09-2023 Incontinence P ad, Liner, Disp pads 1 Pad as needed. 200 Each 03/09/2023 Suspended Start: 03-09-2023 Incontinence P ad, Liner, Disp pads 1 Pad as needed. 200 Each 03/09/2023 Active Incontinence Pad , Liner, Disp pads Comment on above: 1 Pad as needed. Use as many pads/hawk ers daily as needed Insulin Lispro (Humalog) injection 0-12 Units (2 sources) Start: 07-08-2024 End: 07-15-2024 Insulin Lispro (Humalog) injection 0-12 Units Latex Gloves (LATEX GLOVES, LARGE) misc (20 sources) Start: 03-09-2023 End: 10-23-2023 Latex Gloves (LATEX GLOVES, LARGE) misc Indications: Stress incontinence 1 Units once daily. 120 Each 03/09/2023 10/23/2023 Discontinued (Adjust Sig - Block E-Cancel) Start: 03-09-2023 Latex Gloves ( LATEX GLOVES, LARGE) misc Indications: Stress incontinence 1 Units once daily. 120 Each 03/09/2023 Suspended Start: 03-09-2023 Latex Gloves ( LATEX GLOVES, LARGE) misc Indications: Stress incontinence 1 Units once daily. 120 Each 03/09/2023 Active Start: 02-26-2022 Latex Gloves ( LATEX GLOVES, LARGE) misc Indications: Stress incontinence 1 Units once daily. 120 Each 02/26/2022 Suspended Start: 02-26-2022 Latex Gloves ( LATEX GLOVES, LARGE) [facility] Indications: Stress incontinence 1 Units once daily. 120 Each 02/26/2022 Active Comment on above: 1 Units once daily. lidocaine 0.05 mg/mg medicated patch (20 sources) Antiarrhythmic, Amide Local Anesthetic Start: 03-09-20 apply 1 dose transdermal route once daily, then apply 1 dose transdermal route every twelve hours lidocaine (LIDODERM) 5 % Apply 1 Patch as directed once daily. to lateral chest wall. Remove patch after 12 hours. 30 Patch 3 03/09/2023 Active Comment on above: Apply 1 Patch as dir ected once daily. to lateral chest wall. Remove patch after 12 hours. loratadine 10 mg oral tablet (7 sources) End: 09-15-19 take 1 tablet by mouth once daily loratadine (Claritin) 10 MG tablet Take 1 tablet by mouth daily. 09/14/2024 Discontinued (Therapy completed) 50 ml magnesium sulfate 40 mg/ml injection (2 sources) Start: 07-07-20 End: 07-08-19 2,000 mg, IntraVENous, at 25 mL/hr, Administer over 2 Hours, Once, On Sat07/07/24 at 2200, For 1 dose, Recommended infusion rate not to exceed 1,000 mg (milligrams) per hour. MEDICATION, NON-DATABASE (18 sources) End: 02-27-20 MEDICATION, NON-DATABASE once daily. Prevagen 0 02/26/2022 Discontinued (.All criteria met for discontinuation) MEDICATION, NON- DATABASE once daily. Prevagen 0 Active Comment on above: once daily. Prevagen multivitamin with minerals (HAIR,SKIN AND NAILS) tablet (17 sources) take 1 tablet by mouth once daily multivitamin with minerals (HAIR,SKIN AND NAILS) tablet Take 1 tablet by mouth once daily. 0 Active Comment on above: Take 1 tablet by jose juan once daily. ondansetron ODT (Zofran-ODT) disintegrating tablet 4 mg (2 sources) Start: 024 End: 025 take 1 tablet by mouth every eight hours as needed for nausea and vomiting ondansetron ODT (Zofran-ODT) disintegrating tablet 4 mg piperacillin-tazobacta m (Zosyn) 3,375 mg in sodium chloride 0.9 % 50 mL IVPB Mini-Bag Plus (2 sources) Start: 025 End: take 3375 mg intravenously every eight hours 3,375 mg, IntraVENous, at 12.5 mL/hr, Administer over 4 Hours, Every 8 hours, First dose on Sat07/08/24 at 0100, Mini-Bag Plus bag, Suspected Indication (Select all that apply): Pneumonia (CAP) piperacillin-tazobacta m (Zosyn) 4,500 mg in sodium chloride 0.9 % 100 mL IVPB Mini-Bag Plus (2 sources) Start: End: 4,500 mg, IntraVENous, at 200 mL/hr, Administer over 0.5 Hours, Once, On Sat07/07/24 at 1625, For 1 dose, Mini-Bag Plus bag, Suspected Indication (Select all that apply): Pneumonia (HAP) propylene glycol 6 mg/ml ophthalmic solution (18 sources) Start: 018 End: take 2 drop(s) into the eye(s) once daily propylene glycol (SYSTANE BALANCE) 0.6 % drop Use 2 Drops in the right eye once daily. 0 04/01/2018 02/26/2022 Discontinued (.All criteria met for discontinuation) Comment on above: Use 2 Drops in the r ight eye once daily. PULSE OXIMETER [facility] (18 sources) Start: End: PULSE OXIMETER [facility] Indications: Shortness of breath , Syncope, unspecified syncope type 1 Piece once daily. Check oxygen saturation when feeling dizzy or short of breath. If O2 1 Each 0 01/13/2021 02/26/2022 Discontinued (.All criteria met for discontinuation) Start: 01-13-2021 PULSE OXIMETER [facility] Indications: Shortness of breath , Syncope, unspecified syncope type 1 Piece once daily. Check oxygen saturation when feeling dizzy or short of breath. If O2 1 Each 0 01/13/2021 Active Comment on above: 1 Piece once daily. Check oxygen saturation when feeling dizzy or short of breath. If O2< 88%, please call the office. 1000 ml sodium chloride 9 mg/ml injection (4 sources) Start: End: take 50 mL intravenously every hour 50 mL/hr, IntraVENous, Continuous, Starting on Sat07/07/24 at 2000, For 12 hours Start: 07-07-2024 End: 07-07-2024 500 mL, IntraVENous, at 500 mL/hr, Administer over 1 Hours, Once, On Sat07/07/24 at 1455, For 1 dose Vancomycin (4 sources) Glycopeptide Antibacterial Start: 07-08-2024 End: 07-10-2024 1,250 mg, IntraVENous, at 166.7 mL/hr, Administer over 90 Minutes, Every 24 hours, First dose (after last modification) on Sat07/08/24 at 2200, premix bag, Suspected Indication (Select all that apply): Pneumonia (CAP) Start: 07-07-2024 End: 07-07-2024 1,500 mg, IntraVENous, at 12 5 mL/hr, Administer over 120 Minutes, Once, On Sat07/07/24 at 1625, For 1 dose, premix bag, Suspected Indication (Select all that apply): Pneumonia (HAP) vitamin e 100 unt oral capsule (19 sources) Start: 04-22-2023 End: 04-24-2023 take 1 capsule by mouth once daily vitamin E, dl,tocopheryl acet, (VITAMIN E, DL, ACETATE,) 45 mg (100 unit) capsule Take 1 capsule by mouth once daily. 30 capsule 0 04/22/2023 04/24/2023 Discontinued End: 02-26-2022 take 1 capsule by mouth once daily alpha tocopheryl acetate (VITAMIN E) 100 unit capsule Take 100 Units by mouth once daily. 0 02/26/2022 Discontinued (.All criteria met for discontinuation) Comment on above: Take 100 Units by mo ut once daily. Take 1 capsule by mo [facility] once daily. Problems Active Problems Problem Classification Problem Date Documented Da te Episodic/Chronic Anxiety disorders (20 sources) Anxiety; Translations: [Anxiety disorder, unspecified] Onset: 5 02-06-2018 Chronic Cardiac dysrhythmias (20 sources) Sinus node dysfunction; Translations: [Sick sinus syndrome] Onset: 4 10-23-2023 Chronic Cataract (20 sources) Bilateral cortical age-related cataract eyes; Translations: [Cortical age-related cataract, bilateral] Onset: 8 Resolved: 3 04-01-2018 Chronic Chronic obstructive pulmonary disease and bronchiectasis (20 sources) Chronic obstructive lung disease; Translations: [Chronic obstructive pulmonary disease, unspecified] Onset: 5 10-14-2020 Chronic Conduction disorders (20 sources) Jiménez-Hutson attack; 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, unspecified] Onset: 4 10-21-2023 Chronic Congestive heart failure; nonhypertensive (20 sources) Acute heart failure co-occurrent with normal ejection fraction; Translations: [Acute diastolic (congestive) heart failure] Onset: 3 05-17-2023 Chronic Diabetes mellitus with complications (20 sources) Type 2 diabetes mellitus with hyperosmolarity without nonketotic hyperglycemic-hyperosm olar coma ([facility]); Translations: [Type 2 diabetes mellitus] Onset: 8 12-25-2020 Chronic Diabetes mellitus without complication (20 sources) Diabetes mellitus type 2 without retinopathy; Translations: [Type 2 diabetes mellitus without complications] Onset: 5 09-16-2020 Chronic Diseases of mouth; excluding dental (2 sources) Other lesions of oral mucosa; Translations: [Other lesions of oral mucosa] Onset: 8 Episodic Diseases of white blood cells (11 sources) Elevated white blood cell count, unspecified; Translations: [Leukocytosis] Onset: 8 11-03-2024 Chronic Disorders of lipid metabolism (20 sources) Hypercholesterolemia; Translations: [Pure hypercholesterolemia, unspecified] Onset: 5 01-22-2019 Chronic Epilepsy; convulsions (20 sources) Seizure disorder; Translations: [Epilepsy, unspecified, not intractable, without status epilepticus] Onset: 8 12-25-2020 Chronic Esophageal disorders (20 sources) Gastroesophageal reflux disease; Translations: [Gastro-esophageal reflux disease without esophagitis] Onset: 5 12-25-2020 Chronic Essential hypertension (20 sources) Essential (primary) hypertension; Translations: [Hypertensive disorder] Onset: 5 Resolved: 3 12-25-2020 Chronic Fluid and electrolyte disorders (20 sources) Dehydration; Translations: [Dehydration] Onset: 3 03-09-2023 Episodic Gastrointestinal hemorrhage (9 sources) Black feces; Translations: [Melena] Onset: 5 11-03-2024 Episodic Genitourinary symptoms and ill-defined conditions (20 sources) Genuine stress incontinence; Translations: [Stress incontinence (female) (male)] Onset: 9 08-06-2018 Chronic Headache; including migraine (10 sources) Migraine; Translations: [Migraine, unspecified, not intractable, without status migrainosus] Onset: 5 04-19-2022 Chronic Hypertension with complications and secondary hypertension (15 sources) Secondary hypertension; Translations: [Other secondary hypertension] Onset: 3 Chronic Immunizations and screening for infectious disease (5 sources) Encounter for immunization; Translations: [Vaccination needed] Onset: 7 Episodic Malaise and fatigue (20 sources) Other malaise; Translations: [Asthenia] Onset: 5 12-25-2020 Episodic Mood disorders (10 sources) Depressive disorder; Translations: [Depression] Onset: 5 04-19-2022 Chronic Nausea and vomiting (9 sources) Nausea; Translations: [Nausea] Onset: 5 11-03-2024 Episodic Noninfectious gastroenteritis (1 source) Chronic diarrhea; Translations: [Noninfective gastroenteritis and colitis, unspecified] Episodic Osteoarthritis (20 sources) Osteoarthritis; Translations: [Unspecified osteoarthritis, unspecified site] Onset: 5 02-09-2018 Chronic Osteoporosis (2 sources) Age-related osteoporosis without current pathological fracture; Translations: [Age-related osteoporosis w/o current pathological fracture] Onset: 8 Chronic Other aftercare (1 source) Post-discharge follow-up; Translations: [Encounter for follow-up examination after completed treatment for conditions other than malignant neoplasm] 08-13-2024 Episodic Other aftercare (2 sources) Other jail (current) drug therapy; Translations: [Other ferry [employer] agent (current) drug therapy] Onset: 4 Episodic Other connective tissue disease (4 sources) Swelling of bilateral lower limbs; Translations: [Other specified soft tissue disorders] Episodic Other connective tissue disease (1 source) Pain in hallux; Translations: [Pain in left toe(s)] Episodic Other connective tissue disease (2 sources) Swelling of lower limb; Translations: [Other specified soft tissue disorders] Episodic Other diseases of veins and lymphatics (20 sources) Lymphedema of bilateral lower limbs; Translations: [Lymphedema, not elsewhere classified] Onset: 8 04-01-2018 Chronic Other diseases of veins and lymphatics (20 sources) Lymphedema; Translations: [Lymphedema, not elsewhere classified] Onset: 5 12-09-2023 Chronic Other ear and sense organ disorders (2 sources) Unspecified hearing loss, bilateral; Translations: [Unspecified hearing loss, bilateral] Onset: 7 Chronic Other ear and sense organ disorders (1 source) Decreased hearing ; Translations: [Unspecified hearing loss, bilateral] 01-18-2023 Chronic Other gastrointestinal disorders (10 sources) Diarrhea; Translations: [Diarrhea, unspecified] Onset: 5 Episodic Other gastrointestinal disorders (2 sources) Diarrhea, unspecified; Translations: [Diarrhea, unspecified type] Onset: 4 Episodic Other inflammatory condition of skin (2 sources) Erythema intertrigo; Translations: [Erythema intertrigo] Onset: 8 Episodic Other lower respiratory disease (20 sources) Fibrosis of lung; Translations: [Pulmonary fibrosis, unspecified] Onset: 1 03-28-2021 Chronic Other lower respiratory disease (20 sources) Interstitial lung disease; Translations: [Interstitial pulmonary disease, unspecified] Onset: 3 05-17-2023 Chronic Other lower respiratory disease (2 sources) Pulmonary fibrosis, unspecified; Translations: [Pulmonary fibrosis, unspecified (HCC)] Onset: 5 Chronic Other lower respiratory disease (2 sources) Interstitial pulmonary disease, unspecified; Translations: [Interstitial pulmonary disease, unspecified (HCC)] Onset: 5 Chronic Other lower respiratory disease (20 sources) Dyspnea; Translations: [Shortness of breath] Onset: 2 Episodic Other lower respiratory disease (20 sources) H/O: pneumonia; Translations: [Personal history of pneumonia (recurrent)] Onset: 3 03-29-2023 Episodic Other lower respiratory disease (9 sources) Productive cough ; Translations: [Productive cough] Onset: 5 11-03-2024 Episodic Other lower respiratory disease (1 source) Hypoxemia; Translations: [Hypoxia] Onset: 5 Episodic Other non-traumatic joint disorders (1 source) Chronic pain of right upper limb; Translations: [Pain in right shoulder] 05-28-2023 Episodic Other nutritional; endocrine; and metabolic disorders (4 sources) Morbid (severe) obesity due to excess calories; Translations: [Morbid (severe) obesity due to excess calories] Onset: 8 Chronic Other nutritional; endocrine; and metabolic disorders (20 sources) Extreme obesity with alveolar hypoventilation; Translations: [Morbid (severe) obesity with alveolar hypoventilation] Onset: 8 11-24-2019 Chronic Other nutritional; endocrine; and metabolic disorders (20 sources) Severe obesity; Translations: [Morbid (severe) obesity due to excess calories] Onset: 1 12-25-2020 Chronic Other nutritional; endocrine; and metabolic disorders (16 sources) Body mass index 40+ - severely obese; Translations: [Morbid (severe) obesity due to excess calories] Onset: 3 Chronic Other nutritional; endocrine; and metabolic disorders (17 sources) Morbid obesity; Translations: [Morbid (severe) obesity due to excess calories] Onset: 5 05-28-2023 Chronic Other nutritional; endocrine; and metabolic disorders (14 sources) Excess panniculus of abdomen; Translations: [Localized adiposity] Onset: 4 12-05-2023 Chronic Other skin disorders (4 sources) Hypertrophy of nail; Translations: [Onychogryphosis] Episodic Other skin disorders (4 sources) Callosity; Translations: [Corns and callosities] Episodic Other skin disorders (1 source) Lesion of skin of breast; Translations: [Other specified disorders of the skin and subcutaneous tissue] Episodic Other upper respiratory disease (20 sources) Allergic rhinitis; Translations: [Allergic rhinitis, unspecified] Onset: 5 02-06-2018 Chronic Other upper respiratory disease (13 sources) Seasonal allergic rhinitis; Translations: [Other seasonal allergic rhinitis] Onset: 4 12-28-2023 Chronic Other upper respiratory disease (2 sources) Allergic rhinitis, unspecified; Translations: [Allergic rhinitis, unspecified] Onset: 2 Chronic Peripheral and visceral atherosclerosis (9 sources) Peripheral vascular disease; Translations: [Peripheral vascular disease, unspecified] Chronic Pneumonia (except that caused by tuberculosis or sexually transmitted disease) (20 sources) Community acquired pneumonia; Translations: [Pneumonia, unspecified organism] Onset: 3 Resolved: 4 03-05-2023 Episodic Pulmonary heart disease (20 sources) Pulmonary hypertension; Translations: [Pulmonary hypertension, unspecified] Onset: 1 03-28-2021 Chronic Residual codes; unclassified (20 sources) Obstructive sleep apnea syndrome; Translations: [Obstructive sleep apnea (adult) (pediatric)] Onset: 5 12-25-2020 Chronic Residual codes; unclassified (2 sources) Altered mental status; Translations: [Altered mental status, unspecified] 07-07-2024 Episodic Respiratory failure; insufficiency; arrest (adult) (20 sources) Chronic hypoxemic respiratory failure; Translations: [Chronic respiratory failure with hypoxia] Onset: 4 Resolved: 4 05-28-2023 Chronic Respiratory failure; insufficiency; arrest (adult) (6 sources) Acute respiratory failure with hypoxia; Translations: [Acute hypoxemic respiratory failure] Onset: 4 07-08-2024 Episodic Retinal detachments; defects; vascular occlusion; and retinopathy (20 sources) Retinal pigment epithelial abnormality; 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] Onset: 1 09-16-2020 Chronic Rheumatoid arthritis and related disease (14 sources) Rheumatoid arthritis; Translations: [Rheumatoid arthritis, unspecified] Onset: 4 12-04-2023 Chronic Spondylosis; intervertebral disc disorders; other back problems (2 sources) Radiculopathy, lumbar region; Translations: [Radiculopathy, lumbar region] Onset: 8 Episodic Superficial injury; contusion (1 source) Subungual hematoma of toe of left foot; Translations: [Contusion of left lesser toe(s) with damage to nail, initial encounter] Episodic Unclassified (20 sources) Obstructive sleep apnea (adult) (pediatric); Translations: [Body mass index (BMI) 45.0-49.9, adult] Onset: 8 12-04-2023 Chronic Unclassified (11 sources) Encounter for screening mammogram for malignant neoplasm of breast; Translations: [Other specified abnormal findings of blood chemistry] Onset: 7 11-03-2024 Episodic Unclassified (1 source) OPENED IN ERROR 03-15-2023 Past or Other Problems Problem Classification Problem Date Documented Da te Episodic/Chronic Abdominal hernia (20 sources) Hiatal hernia; Translations: [Diaphragmatic hernia without obstruction or gangrene] Onset: 2018 2018 Episodic Acute and unspecified renal failure (14 sources) Acute renal failure syndrome; Translations: [Acute kidney failure, unspecified] Onset: 12-28-2023 Resolved: 12-29-2023 12-29-2023 Episodic Administrative/social admission (20 sources) Housing unsuited to needs; Translations: [Inadequate housing] Onset: 12-23-2020 12-25-2020 Episodic Blindness and vision defects (20 sources) Disorder of refraction; Translations: [Unspecified disorder of refraction] Onset: 09-16-2020 09-16-2020 Episodic Calculus of urinary tract (20 sources) Kidney stone; Translations: [Calculus of kidney] Onset: 03-04-2015 Resolved: 03-29-2023 10-14-2020 Episodic Cardiac dysrhythmias (20 sources) Bradycardia; Translations: [Bradycardia, unspecified] Onset: 10-21-2023 10-21-2023 Episodic Conditions associated with dizziness or vertigo (10 sources) Dizziness; Translations: [Dizziness and giddiness] Onset: 03-04-2015 04-19-2022 Episodic E Codes: Fall (20 sources) Fall; Translations: [Unspecified fall, subsequent encounter] Onset: 12-04-2023 Resolved: 12-10-2023 Episodic Epilepsy; convulsions (11 sources) Seizure; Translations: [Unspecified convulsions] Onset: 03-04-2015 03-13-2023 Episodic Gastroduodenal ulcer (except hemorrhage) (20 sources) H/O: peptic ulcer; Translations: [Personal history of peptic ulcer disease] Onset: 2018 2018 Episodic Genitourinary symptoms and ill-defined conditions (20 sources) Dysuria; Translations: [Proteinuria, unspecified] Onset: 11-19-2017 Resolved: 05-17-2023 05-17-2023 Episodic Medical examination/evaluation (2 sources) Encounter for general adult medical examination without abnormal findings; Translations: [Encntr for general adult medical exam w/o abnormal findings] Onset: 01-22-2017 Episodic Mycoses (10 sources) Dermal mycosis; Translations: [Superficial mycosis, unspecified] Onset: 06-07-2015 04-19-2022 Episodic Other aftercare (2 sources) Encounter for follow-up examination after completed treatment for conditions other than malignant neoplasm; Translations: [Encounter for follow-up examination after completed treatment for conditions other than malignant neoplasm] Onset: 08-13-2024 Episodic Other circulatory disease (20 sources) Elevated blood-pressure reading without diagnosis of hypertension; Translations: [Elevated blood-pressure reading, without diagnosis of hypertension] Onset: 03-28-2021 03-28-2021 Episodic Other connective tissue disease (20 sources) Recurrent falls ; Translations: [Repeated falls] Onset: 10-19-2023 10-19-2023 Episodic Other eye disorders (20 sources) H/O: Bilateral cataract extraction; Translations: [Cataract extraction status, right eye] Onset: 11-24-2019 11-24-2019 Episodic Other inflammatory condition of skin (20 sources) Intertrigo; Translations: [Erythema intertrigo] Onset: 03-28-2019 03-28-2019 Episodic Other inflammatory condition of skin (20 sources) Irritant contact dermatitis; Translations: [Erythema intertrigo] Onset: 03-28-2019 05-17-2023 Episodic Other lower respiratory disease (20 sources) Restrictive lung disease; Translations: [Other disorders of lung] Onset: 03-13-2018 05-23-2019 Episodic Other lower respiratory disease (20 sources) Radiologic infiltrate of lung ; Translations: [Other nonspecific abnormal finding of lung field] Onset: 12-23-2020 12-25-2020 Episodic Other lower respiratory disease (20 sources) Single lobe lung infiltrate; Translations: [Other nonspecific abnormal finding of lung field] Onset: 12-23-2020 Resolved: 10-19-2023 12-25-2020 Episodic Other lower respiratory disease (20 sources) Acute pulmonary edema; Translations: [Acute pulmonary edema] Onset: 05-14-2023 Resolved: 05-17-2023 05-17-2023 Episodic Other lower respiratory disease (1 source) Shortness of breath; Translations: [Shortness of breath] Onset: 09-22-2024 Episodic Other nutritional; endocrine; and metabolic disorders (20 sources) Hypomagnesemia; Translations: [Hypomagnesemia] Onset: 10-19-2023 Resolved: 12-09-2024 10-19-2023 Chronic Residual codes; unclassified (3 sources) Altered mental status, unspecified; Translations: [Altered mental status, unspecified altered mental status type] Onset: 12-04-2023 Episodic Screening and history of mental health and substance abuse codes (3 sources) Tobacco use and exposure - finding; Translations: [Personal history of nicotine dependence] Onset: 08-13-2024 08-13-2024 Episodic Septicemia (except in labor) (4 sources) Sepsis; Translations: [Sepsis, unspecified organism] Onset: 07-07-2024 07-07-2024 Episodic Syncope (20 sources) Syncope and collapse; Translations: [Syncope and collapse] Onset: 12-23-2020 12-25-2020 Episodic Unclassified (2 sources) Asymptomatic menopausal state; Translations: [Asymptomatic menopausal state] Onset: 04-12-2017 Episodic Urinary tract infections (20 sources) Urinary tract infectious disease; Translations: [Urinary tract infection, site not specified] Onset: 03-05-2023 Resolved: 12-10-2023 03-05-2023 Episodic Results Test Name Value Interpretation Reference Range Facility [facility] 12-23-2024 CNPN Normal [facility] CNOVon 12-14-2024 CNOV Normal [facility] CNCOon 12-10-[address] [facility] 12-10-2024 [facility] Basic metabolic 2000 panelon 12-09-2024 Anion gap [Moles/Vol] 11 mmol/L Normal 8-15 [facility] Comment on above: Order Comment: Speci men Type: BLOOD SPECIMENOrdering Facility: [facility] Address: [address] [place] [address] [place] [id number] Performed By: #### 1 9123-9, 31318-2, 2776- ####[facility]ATORYCLIA [id number] [place] [address] [place] Calcium [Mass/Vol] 8.5 mg/dL Normal 8.5-10.2 [facility] Comment on above: Order Comment: Speci men Type: BLOOD SPECIMENOrdering Facility: [facility] Address: [address] [place] [address] Performed By: #### 1 9123-9, 46631-1, 2776- ####[facility]ATORYCLIA [id number] [place] [address] [place] Chloride [Moles/Vol] 98 mmol/L Normal 98-107 [facility] Comment on above: Order Comment: Speci men Type: BLOOD SPECIMENOrdering Facility: [facility] Address: [address] [place] [address] Performed By: #### 1 9123-9, 58144-8, 2776-07 ####[facility]ATORYCLIA [id number] [place] [address] [place] CO2 [Moles/Vol] 28 mmol/L Normal 22-30 [facility] Comment on above: Order Comment: Speci men Type: BLOOD SPECIMENOrdering Facility: [facility] Address: [address] [place] [address] Performed By: #### 1 9123-9, 58363-2, 2776-07 ####[facility]ATORYCLIA [id number] [place] [address] [place] Creatinine [Mass/Vol] 0.85 mg/dL Normal 0.58-0.96 [facility] Comment on above: Order Comment: Speci men Type: BLOOD SPECIMENOrdering Facility: [facility] Address: [address] [place] [address] Performed By: #### 1 9123-9, 24733-5, 2776- ####[facility]ATORYCLIA [id number] [place] [address] [place] Creatinine and Glomerular filtration rate.predicted panel (S/P/Bld) 71 mL/min/1.73m??? Normal >=60 [facility] Comment on above: Order Comment: Ashu garcia Type: BLOOD SPECIMENOrdering Facility: [facility] Address: [address] [place] [address] Result Comment: Whitney mated Glomerular Filtration Rate (eGFR) is calculated using the 2020 CKD-EPI creatinine equation. This equation utilizes serum creatinine, sex, and age as parameters. The creatinine assay has traceable calibration to isotope dilution-mass spectrometry. Refer to KDIGO guidelines for clinical interpretation. In patients with unstable renal function, e.g. those with acute kidney injury, the eGFR may not accurately reflect actual GFR. Performed By: #### 1 9123-9, 17150-6, 2776- ####[facility]ATORYCLIA [id number] [place] [address] [place] Glucose [Mass/Vol] 115 mg/dL High 74-99 [facility] Comment on above: Order Comment: Ashu garcia Type: BLOOD SPECIMENOrdering Facility: [facility] Address: [address] [place] [address] Result Comment: The [place] [employer] (ADA) provides guidance for cutoff values for fasting glucose and random glucose. The ADA defines fasting as no caloric intake for at least 8 hours. Fasting plasma glucose results between 100 to 125 mg/dL indicate increased risk for diabetes (prediabetes).Fasting plasma glucose results greater than or equal to 126 mg/dL meet the criteria for diagnosis of diabetes. In the absence of unequivocal hyperglycemia, results should be confirmed by repeat testing. In a patient with classic symptoms of hyperglycemia or hyperglycemic crisis, random plasma glucose results greater than or equal to 200 mg/dL meet the criteria for diagnosis of diabetes.Reference: Standards of Medical Care in Diabetes 2016, [place] [employer]. Diabetes Care. 2016.39(Suppl 1). Performed By: #### 1 9123-9, 17857-7, 2776-07 ####[facility]ATORYCLIA [id number] [place] [address] [place] Potassium [Moles/Vol] 4.1 mmol/L Normal 3.7-5.1 [facility] Comment on above: Order Comment: Speci men Type: BLOOD SPECIMENOrdering Facility: [facility] Address: [address] [place] [address] Performed By: #### 1 9123-9, 23723-5, 2777- ####[facility]ATORYCLIA [id number] [address] [place] Sodium [Moles/Vol] 137 mmol/L Normal 136-144 [facility] Comment on above: Order Comment: Speci men Type: BLOOD SPECIMENOrdering Facility: [facility] Address: [address] [place] [address] Performed By: #### 1 9123-9, 39087-9, 27701-05 ####[facility]ATORYCLIA [id number] [address] [place] Urea nitrogen [Mass/Vol] 20 mg/dL Normal 7-21 [facility] Comment on above: Order Comment: Speci men Type: BLOOD SPECIMENOrdering Facility: [facility] Address: [address] [place] [address] Performed By: #### 1 9123-9, 42567-2, 2777 ####[facility]ATORYCLIA [id number] [address] [place] CASE MANAGEMon 12-09-2024 CASE MANAGEM Normal [facility] CBC panel Auto (Bld)on 12-09 Erythrocyte distribution width (RBC) [Ratio] 14.7 % Normal 11.5-15.0 [facility] Comment on above: Order Comment: Speci men Type: BLOOD SPECIMENOrdering Facility: [facility] Address: [address] [place] [address] Performed By: #### 5 8410-2 ####[facility]ATORYCLIA [id number] [address] [place] Hematocrit (Bld) [Volume fraction] 35.2 % Low 36.0-46.0 [facility] Comment on above: Order Comment: Speci men Type: BLOOD SPECIMENOrdering Facility: [facility] Address: [address] [place] [address] Performed By: #### 5 8410-2 ####[facility]ATORYCLIA [id number] [address] STATES OF [facility] Hemoglobin (Bld) [Mass/Vol] 11.1 g/dL Low 11.5-15.5 [facility] Comment on above: Order Comment: Speci men Type: BLOOD SPECIMENOrdering Facility: [facility] Address: [address] [place] [address] Performed By: #### 5 8410-2 ####[facility]ORATORYCLIA [id number] [address] OF [facility] MCH (RBC) [Entitic mass] 30.0 pg Normal 26.0-34.0 [facility] Comment on above: Order Comment: Speci men Type: BLOOD SPECIMENOrdering Facility: [facility] Address: [address] [place] [address] Performed By: #### 5 8410-2 ####[facility]ATORYCLIA [id number] [address] MCHC (RBC) [Mass/Vol] 31.5 g/dL Normal 30.5-36.0 [facility] Comment on above: Order Comment: Speci men Type: BLOOD SPECIMENOrdering Facility: [facility] Address: [address] [place] [address] Performed By: #### 5 8410-2 ####[facility]ATORYCLIA [id number] [address] MCV (RBC) [Entitic vol] 95.1 fL Normal 80.0-100.0 [facility] Comment on above: Order Comment: Speci men Type: BLOOD SPECIMENOrdering Facility: [facility] Address: [address] [place] [address] Performed By: #### 5 8410-2 ####[facility]ATORYCLIA [id number] [address] Nucleated RBC (Bld) [#/Vol] 10*3/uL Normal <0.01 [facility] Comment on above: Order Comment: Speci men Type: BLOOD SPECIMENOrdering Facility: [facility] Address: [address] [place] [address] Performed By: #### 5 8410-2 ####[facility]ATORYCLIA [id number] [address] [place] Platelet mean volume (Bld) [Entitic vol] 9.1 fL Normal 9.0-12.7 [facility] Comment on above: Order Comment: Speci men Type: BLOOD SPECIMENOrdering Facility: [facility] Address: [address] [place] [address] Performed By: #### 5 8410-2 ####[facility]ATORYCLIA [id number] [address] [place] Platelets (Bld) [#/Vol] 300 10*3/uL Normal 150-400 [facility] Comment on above: Order Comment: Speci men Type: BLOOD SPECIMENOrdering Facility: [facility] Address: [address] [place] [address] Performed By: #### 5 8410-2 ####[facility]ATORYCLIA [id number] [address] [place] RBC (Bld) [#/Vol] 3.70 10*6/uL Low 3.90-5.20 [facility] Comment on above: Order Comment: Speci men Type: BLOOD SPECIMENOrdering Facility: [facility] Address: [address] [place] [address] Performed By: #### 5 8410-2 ####[facility]ATORYCLIA [id number] [address] [place] WBC (Bld) [#/Vol] 10.62 10*3/uL Normal 3.70-11.00 [facility] Comment on above: Order Comment: Speci men Type: BLOOD SPECIMENOrdering Facility: [facility] Address: [address] [place] [address] Performed By: #### 5 8410-2 ####[facility]ATORYCLIA [id number] [address] [place] CNDSon 12-09-2024 CNDS Normal [facility] Magnesium SerPl-ncon 12-09 Magnesium [Mass/Vol] 1.9 mg/dL Normal 1.7-2.3 [facility] Comment on above: Order Comment: Speci men Type: BLOOD SPECIMENOrdering Facility: [facility] Address: [address] [place] [address] Performed By: #### 1 9123-9, 61256-0, 2777-1 ####[facility]ATORYCLIA [id number] [address] OF [facility] NURSING PROGon 12-09-2024 NURSING PROG Normal [facility] Phosphate SerPl-ncon 12-09 Phosphate [Mass/Vol] 3.9 mg/dL Normal 2.7-4.8 [facility] Comment on above: Order Comment: Speci men Type: BLOOD SPECIMENOrdering Facility: [facility] Address: [address] [place] [address] Performed By: #### 1 9123-9, 74933-2, 2777- ####[facility]ATORYCLIA [id number] [address] [place] Basic metabolic 2000 panelon 12-08-2024 Anion gap [Moles/Vol] 12 mmol/L Normal 8-15 [facility] Comment on above: Order Comment: Speci men Type: BLOOD SPECIMENOrdering Facility: [facility] Address: [address] [place] [address] Performed By: #### 1 9123-9, 80618-6, 45801-4, 2777-1 ####[facility]ATORYCLIA [id number] [address] OF [facility] Calcium [Mass/Vol] 8.5 mg/dL Normal 8.5-10.2 [facility] Comment on above: Order Comment: Speci men Type: BLOOD SPECIMENOrdering Facility: [facility] Address: [address] [place] [address] Performed By: #### 1 9123-9, 00413-0, 65920-9, 2777-1 ####[facility]ATORYCLIA [id number] [place] [address] [place] Chloride [Moles/Vol] 99 mmol/L Normal 98-107 [facility] Comment on above: Order Comment: Speci men Type: BLOOD SPECIMENOrdering Facility: [facility] Address: [address] [place] [address] Performed By: #### 1 9123-9, 81086-4, 53896-7, 2777-1 ####[facility] [id number] [address] [place] CO2 [Moles/Vol] 26 mmol/L Normal 22-30 [facility] Comment on above: Order Comment: Speci men Type: BLOOD SPECIMENOrdering Facility: [facility] Address: [address] [place] [address] Performed By: #### 1 9123-9, 21530-2, 44517-9, 2777-1 ####[facility]ORYCLIA [id number] [address] [place] Creatinine [Mass/Vol] 0.90 mg/dL Normal 0.58-0.96 [facility] Comment on above: Order Comment: Speci men Type: BLOOD SPECIMENOrdering Facility: [facility] Address: [address] [place] [address] Performed By: #### 1 9123-9, 52553-9, 03343-1, 2777-1 ####[facility]ATORYCLIA [id number] [address] Creatinine and Glomerular filtration rate.predicted panel (S/P/Bld) 66 mL/min/1.73m??? Normal >=60 [facility] Comment on above: Order Comment: Speci men Type: BLOOD SPECIMENOrdering Facility: [facility] Address: [address] [place] [address] Result Comment: Whitney mated Glomerular Filtration Rate (eGFR) is calculated using the 2020 CKD-EPI creatinine equation. This equation utilizes serum creatinine, sex, and age as parameters. The creatinine assay has traceable calibration to isotope dilution-mass spectrometry. Refer to KDIGO guidelines for clinical interpretation. In patients with unstable renal function, e.g. those with acute kidney injury, the eGFR may not accurately reflect actual GFR. Performed By: #### 1 9123-9, 03114-9, 10370-9, 2777-1 ####[facility]ATORYCLIA [id number] [place] [address] [place] Glucose [Mass/Vol] 207 mg/dL High 74-99 [facility] Comment on above: Order Comment: Ashu garcia Type: BLOOD SPECIMENOrdering Facility: [facility] [facility] Address: [address] [place] [address] Result Comment: The [place] [employer] (ADA) provides guidance for cutoff values for fasting glucose and random glucose. The ADA defines fasting as no caloric intake for at least 8 hours. Fasting plasma glucose results between 100 to 125 mg/dL indicate increased risk for diabetes (prediabetes).Fasting plasma glucose results greater than or equal to 126 mg/dL meet the criteria for diagnosis of diabetes. In the absence of unequivocal hyperglycemia, results should be confirmed by repeat testing. In a patient with classic symptoms of hyperglycemia or hyperglycemic crisis, random plasma glucose results greater than or equal to 200 mg/dL meet the criteria for diagnosis of diabetes.Reference: Standards of Medical Care in Diabetes 2016, [place] [employer]. Diabetes Care. 2016.39(Suppl 1). Performed By: #### 1 9123-9, 37376-1, 37665-1, 277-1 ####[facility] LABORATORYIA [id number] [place] [address] [place] Potassium [Moles/Vol] 4.1 mmol/L Normal 3.7-5.1 [facility] Comment on above: Order Comment: Ashu garcia Type: BLOOD SPECIMENOrdering Facility: [facility] Address: [address] [place] [address] Performed By: #### 1 9123-9, 73734-1, 78256-4, 277-1 ####[facility] LABORATORYCLIA [id number] [address] STATES OF [facility] Sodium [Moles/Vol] 137 mmol/L Normal 136-144 [facility] Comment on above: Order Comment: Speci men Type: BLOOD SPECIMENOrdering Facility: [facility] Address: [address] [place] [address] Performed By: #### 1 9123-9, 84268-1, 21366-0, 2777-1 ####[facility]ORATORYCLIA [id number] [address] [place] Urea nitrogen [Mass/Vol] 18 mg/dL Normal 7-21 [facility] Comment on above: Order Comment: Speci men Type: BLOOD SPECIMENOrdering Facility: [facility] Address: [address] [place] [address] Performed By: #### 1 9123-9, 36347-7, 30948-2, 2777-1 ####[facility]ORATORYCLIA [id number] [address] [place] CASE MGT INIT ASSESon 2024 CASE MGT INIT ASSES Normal [facility] CBC panel Auto (Bld)on 12-08 Erythrocyte distribution width (RBC) [Ratio] 14.6 % Normal 11.5-15.0 [facility] Comment on above: Order Comment: Speci men Type: BLOOD SPECIMENOrdering Facility: [facility] Address: [address] [place] [address] Performed By: #### 5 8410-2 ####[facility] LABORATORYCLIA [id number] [address] OF [facility] Hematocrit (Bld) [Volume fraction] 36.1 % Normal 36.0-46.0 [facility] Comment on above: Order Comment: Speci men Type: BLOOD SPECIMENOrdering Facility: [facility] Address: [address] [place] [address] Performed By: #### 5 8410-2 ####[facility] LABORATORYCLIA [id number] [address] OF [facility] Hemoglobin (Bld) [Mass/Vol] 11.5 g/dL Normal 11.5-15.5 [facility] Comment on above: Order Comment: Speci men Type: BLOOD SPECIMENOrdering Facility: [facility] Address: [address] [place] [address] Performed By: #### 5 8410-2 ####[facility]ORATORYCLIA [id number] [address] MCH (RBC) [Entitic mass] 29.7 pg Normal 26.0-34.0 [facility] Comment on above: Order Comment: Speci men Type: BLOOD SPECIMENOrdering Facility: [facility] Address: [address] [place] [address] Performed By: #### 5 8410-2 ####[facility] LABORATORYCLIA [id number] [address] MCHC (RBC) [Mass/Vol] 31.9 g/dL Normal 30.5-36.0 [facility] Comment on above: Order Comment: Speci men Type: BLOOD SPECIMENOrdering Facility: [facility] Address: [address] [place] [address] Performed By: #### 5 8410-2 ####[facility]ORATORYCLIA [id number] [address] MCV (RBC) [Entitic vol] 93.3 fL Normal 80.0-100.0 [facility] Comment on above: Order Comment: Speci men Type: BLOOD SPECIMENOrdering Facility: [facility] Address: [address] [place] [address] Performed By: #### 5 8410-2 ####[facility]ORATORYCLIA [id number] [address] Nucleated RBC (Bld) [#/Vol] 10*3/uL Normal <0.01 [facility] Comment on above: Order Comment: Speci men Type: BLOOD SPECIMENOrdering Facility: [facility] Address: [address] [place] [address] Performed By: #### 5 8410-2 ####[facility]ORATORYCLIA [id number] [address] [place] Platelet mean volume (Bld) [Entitic vol] 9.2 fL Normal 9.0-12.7 [facility] Comment on above: Order Comment: Speci men Type: BLOOD SPECIMENOrdering Facility: [facility] Address: [address] [place] [address] Performed By: #### 5 8410-2 ####[facility]ORATORYCLIA [id number] [address] [place] Platelets (Bld) [#/Vol] 274 10*3/uL Normal 150-400 [facility] Comment on above: Order Comment: Speci men Type: BLOOD SPECIMENOrdering Facility: [facility] Address: [address] [place] [address] Performed By: #### 5 8410-2 ####[facility]ORATORYCLIA [id number] [address] [place] RBC (Bld) [#/Vol] 3.87 10*6/uL Low 3.90-5.20 [facility] Comment on above: Order Comment: Speci men Type: BLOOD SPECIMENOrdering Facility: [facility] Address: [address] [place] [address] Performed By: #### 5 8410-2 ####[facility]ORATORYCLIA [id number] [address] [place] WBC (Bld) [#/Vol] 5.74 10*3/uL Normal 3.70-11.00 [facility] Comment on above: Order Comment: Speci men Type: BLOOD SPECIMENOrdering Facility: [facility] Address: [address] [place] [address] Performed By: #### 5 8410-2 ####[facility]ORATORYCLIA [id number] [address] [place] Gas and Carbon monoxide pane l (BldV)on 12-08-2024 Base excess Calc (BldV) [Moles/Vol] 3 mmol/L High 0-2 [facility] Comment on above: Order Comment: Speci men Type: VENOUS BLOOD SPECIMENOrdering Facility: [facility] Address: [address] [place] [address] Performed By: #### 2 4344-4 ####[facility]ORATORYCLIA [id number] [address] [place] Body temperature 97.88 [degF] Normal [facility] Comment on above: Order Comment: Speci men Type: VENOUS BLOOD SPECIMENOrdering Facility: [facility] Address: [address] [place] [address] Performed By: #### 2 4344-4 ####[facility]ORATORYCLIA [id number] [address] [place] Calcium.ionized (BldV) [Mass/Vol] 1.17 mmol/L Normal 1.08-1.30 [facility] Comment on above: Order Comment: Speci men Type: VENOUS BLOOD SPECIMENOrdering Facility: [facility] Address: [address] [place] [address] Performed By: #### 2 4344-4 ####[facility]ORATORYCLIA [id number] [address] [place] Calcium.ionized adjusted to pH 7.4 (BldA) [Moles/Vol] 1.12 mmol/L Normal 1.08-1.30 [facility] Comment on above: Order Comment: Speci men Type: VENOUS BLOOD SPECIMENOrdering Facility: [facility] Address: [address] [place] [address] Performed By: #### 2 4344-4 ####[facility]ORATORYCLIA [id number] [address] [place] Carboxyhemoglobin (BldV) [Mass fraction] 2.3 % High 0.0-2.0 [facility] Comment on above: Order Comment: Speci men Type: VENOUS BLOOD SPECIMENOrdering Facility: [facility] Address: [address] [place] [address] Result Comment: Carb oxyhemoglobin Reference Range for Smokers: 2.0-8.0% Performed By: #### 2 4344-4 ####[facility]ORATORYCLIA [id number] [place] [address] [place] Chloride [Moles/Vol] 100 mmol/L Normal 97-105 [facility] Comment on above: Order Comment: Speci men Type: VENOUS BLOOD SPECIMENOrdering Facility: [facility] Address: [address] [place] [address] Performed By: #### 2 4344-4 ####[facility] LABORATORYCLIA [id number] [address] [place] CO2 (BldV) [Partial pressure] 60 mm[Hg] High 42-55 [facility] Comment on above: Order Comment: Speci men Type: VENOUS BLOOD SPECIMENOrdering Facility: [facility] Address: [address] [place] [address] Performed By: #### 2 4344-4 ####[facility]ORATORYCLIA [id number] [address] [place] CO2 adjusted to patient's actual temperature (BldV) [Partial pressure] 59 mmHg High 42-55 [facility] Comment on above: Order Comment: Speci men Type: VENOUS BLOOD SPECIMENOrdering Facility: [facility] Address: [address] [place] [address] Performed By: #### 2 4344-4 ####[facility] [facility]ORATORYCLIA [id number] [place] [address] [place] Glucose [Mass/Vol] 210 mg/dL High 60-105 [facility] Comment on above: Order Comment: Speci men Type: VENOUS BLOOD SPECIMENOrdering Facility: [facility] Address: [address] [place] [address] Performed By: #### 2 4344-4 ####[facility]ORATORYCLIA [id number] [place] [address] [place] HCO3 (Bld) [Moles/Vol] 30 mmol/L High 24-28 [facility] Comment on above: Order Comment: Speci men Type: VENOUS BLOOD SPECIMENOrdering Facility: [facility] Address: [facility] [place] [address] Performed By: #### 2 4344-4 ####[facility]ORATORYCLIA [id number] [address] [place] Hematocrit (Bld) [Volume fraction] 36.5 % Normal 36.0-46.0 [facility] Comment on above: Order Comment: Speci men Type: VENOUS BLOOD SPECIMENOrdering Facility: [facility] Address: [address] [place] [address] Performed By: #### 2 4344-4 ####[facility]ORATORYCLIA [id number] [address] [place] Hemoglobin (Bld) [Mass/Vol] 11.9 g/dL Normal 11.5-15.5 [facility] Comment on above: Order Comment: Speci men Type: VENOUS BLOOD SPECIMENOrdering Facility: [facility] Address: [address] [place] [address] Performed By: #### 2 4344-4 ####[facility]ORATORYCLIA [id number] [address] [place] Lactate [Moles/Vol] 2.3 mmol/L High 0.5-2.2 [facility] Comment on above: Order Comment: Speci men Type: VENOUS BLOOD SPECIMENOrdering Facility: [facility] Address: [address] [place] [address] Performed By: #### 2 4344-4 ####[facility]ORATORYCLIA [id number] [address] [place] Methemoglobin (Bld) [Mass fraction] 0.8 % Normal 0.0-1.5 [facility] Comment on above: Order Comment: Speci men Type: VENOUS BLOOD SPECIMENOrdering Facility: [facility] Address: [address] [place] [address] Performed By: #### 2 4344-4 ####[facility]ORATORYCLIA [id number] [address] [place] O2 THERAPY NC = Nasal Cannula Normal [facility] Comment on above: Order Comment: Speci men Type: VENOUS BLOOD SPECIMENOrdering Facility: [facility] Address: [address] [place] [address] Result Comment: 4L Performed By: #### 2 4344-4 ####[facility]ORATORYCLIA [id number] [address] [place] Oxygen (BldV) [Partial pressure] 72 mm[Hg] High 35-45 [facility] Comment on above: Order Comment: Speci men Type: VENOUS BLOOD SPECIMENOrdering Facility: [facility] Address: [address] [place] [address] Performed By: #### 2 4344-4 ####[facility]ORATORYCLIA [id number] [address] [place] Oxygen adjusted to patient's actual temperature (BldV) [Partial pressure] 70 mmHg High 35-45 [facility] Comment on above: Order Comment: Speci men Type: VENOUS BLOOD SPECIMENOrdering Facility: [facility] Address: [address] [place] [address] Performed By: #### 2 4344-4 ####[facility]ORATORYCLIA [id number] [address] [place] Oxygen saturation in Venous blood 92 % High 60-85 [facility] Comment on above: Order Comment: Speci men Type: VENOUS BLOOD SPECIMENOrdering Facility: [facility] Address: [address] [place] [address] Performed By: #### 2 4344-4 ####[facility]ATORYCLIA [id number] [address] [place] Oxyhemoglobin (BldV) [Mass fraction] 89 % High 60-85 [facility] Comment on above: Order Comment: Speci men Type: VENOUS BLOOD SPECIMENOrdering Facility: [facility] Address: [address] [place] [address] Performed By: #### 2 4344-4 ####[facility]ORATORYCLIA [id number] [place] [address] [place] pH (BldV) 7.32 [pH] Normal 7.32-7.42 [facility] Comment on above: Order Comment: Speci men Type: VENOUS BLOOD SPECIMENOrdering Facility: [facility] Address: [address] [place] [address] Performed By: #### 2 4344-4 ####[facility]ATORYCLIA [id number] [address] [place] pH adjusted to patient's actual temperature (BldV) 7.33 Normal 7.32-7.42 [facility] Comment on above: Order Comment: Speci men Type: VENOUS BLOOD SPECIMENOrdering Facility: [facility] Address: [address] [place] [address] Performed By: #### 2 4344-4 ####[facility]ORATORYCLIA [id number] [place] [address] [place] Potassium [Moles/Vol] 4.0 mmol/L Normal 3.5-5.0 [facility] Comment on above: Order Comment: Speci men Type: VENOUS BLOOD SPECIMENOrdering Facility: [facility] Address: [address] [place] [address] Performed By: #### 2 4344-4 ####[facility]ORATORYCLIA [id number] [place] [address] [place] Sodium [Moles/Vol] 141 mmol/L Normal 136-144 [facility] Comment on above: Order Comment: Speci men Type: VENOUS BLOOD SPECIMENOrdering Facility: [facility] Address: [address] [place] [address] Performed By: #### 2 4344-4 ####[facility]ORATORYCLIA [id number] [place] [address] [place] Magnesium SerPl-mCncon 12-08 Magnesium [Mass/Vol] 1.2 mg/dL Low 1.7-2.3 [facility] Comment on above: Order Comment: Speci men Type: BLOOD SPECIMENOrdering Facility: [facility] Address: [address] [place] [address] Performed By: #### 1 9123-9, 00468-5, 38194-7, 2777-1 ####[facility]ATORYCLIA [id number] [address] [place] Phosphate SerPl-mCncon 12-08 Phosphate [Mass/Vol] 4.4 mg/dL Normal 2.7-4.8 [facility] Comment on above: Order Comment: Speci men Type: BLOOD SPECIMENOrdering Facility: [facility] Address: [address] [place] [address] Performed By: #### 1 9123-9, 60131-5, 84678-2, 2776- ####[facility] [id number] [address] Procalcitonin SerPl-mCncon 0 12-08-2024 Procalcitonin [Mass/Vol] ng/mL Normal <0.09 [facility] Comment on above: Order Comment: Speci [facility] Type: BLOOD SPECIMENOrdering Facility: [facility] Address: [address] [place] [address] Result Comment: For a guided interpretation of test results, please visit the Change in Procalcitonin Calculator, [email or web address]. Performed By: #### 1 9123-9, 16756-3, 32632-2, 277-1 ####[facility]ATORYCLIA [id number] [address] [place] Bacteria Ur Culton Bacteria identified Cx Nom (U) Abnormal [facility] Comment on above: Performed By: #### 6 30-4, 61480-8 ####[facility]ATORYCLIA [id number] [place] [address] [place] CBC W Auto Differential pane l (Bld)on 12-07-2024 Basophils (Bld) [#/Vol] 0.08 10*3/uL Normal <0.11 [facility] Comment on above: Order Comment: Speci men Type: BLOOD SPECIMENOrdering Facility: [facility] Address: [address] [place] [address] Performed By: #### 5 7021-8 ####[facility]ORATORYCLIA [id number] [address] STATES [facility] Basophils/100 WBC (Bld) 0.8 % Normal A [facility] Comment on above: Order Comment: Speci men Type: BLOOD SPECIMENOrdering Facility: [facility] Address: [address] [place] [address] Performed By: #### 5 7021-8 ####[facility]ORATORYCLIA [id number] [address] Differential cell count method Nom (Bld) Auto Normal [facility] Comment on above: Order Comment: Speci men Type: BLOOD SPECIMENOrdering Facility: [facility] Address: [address] [place] [address] Performed By: #### 5 7021-8 ####[facility]ORATORYCLIA [id number] [address] OF [facility] Eosinophils (Bld) [#/Vol] 0.69 10*3/uL High <0.46 [facility] Comment on above: Order Comment: Speci men Type: BLOOD SPECIMENOrdering Facility: [facility] Address: [address] [place] [address] Performed By: #### 5 7021-8 ####[facility]ATORYCLIA [id number] [address] Eosinophils/100 WBC (Bld) 6.9 % Normal [facility] Comment on above: Order Comment: Speci men Type: BLOOD SPECIMENOrdering Facility: [facility] Address: [address] [place] [address] Performed By: #### 5 7021-8 ####[facility]ORATORYCLIA [id number] [place] [address] [place] Erythrocyte distribution width (RBC) [Ratio] 14.6 % Normal 11.5-15.0 [facility] Comment on above: Order Comment: Speci men Type: BLOOD SPECIMENOrdering Facility: [facility] Address: [address] [place] [address] Performed By: #### 5 7021-8 ####[facility]ATORYCLIA [id number] [address] [place] Hematocrit (Bld) [Volume fraction] 40.2 % Normal 36.0-46.0 [facility] Comment on above: Order Comment: Speci men Type: BLOOD SPECIMENOrdering Facility: [facility] Address: [address] [place] [address] Performed By: #### 5 7021-8 ####[facility]ATORYCLIA [id number] [address] [place] Hemoglobin (Bld) [Mass/Vol] 12.5 g/dL Normal 11.5-15.5 [facility] Comment on above: Order Comment: Speci men Type: BLOOD SPECIMENOrdering Facility: [facility] Address: [address] [place] [address] Performed By: #### 5 7021-8 ####[facility]ATORYCLIA [id number] [address] [place] Immature granulocytes (Bld) [#/Vol] 0.03 10*3/uL Normal <0.10 [facility] Comment on above: Order Comment: Speci men Type: BLOOD SPECIMENOrdering Facility: [facility] Address: [address] [place] [address] Performed By: #### 5 7021-8 ####[facility]ATORYCLIA [id number] [address] [place] Immature granulocytes/100 WBC (Bld) 0.3 % Normal [facility] Comment on above: Order Comment: Speci men Type: BLOOD SPECIMENOrdering Facility: [facility] Address: [address] [place] [address] Performed By: #### 5 7021-8 ####[facility]ATORYCLIA [id number] [address] [place] Lymphocytes (Bld) [#/Vol] 3.00 10*3/uL Normal 1.00-4.00 [facility] Comment on above: Order Comment: Speci men Type: BLOOD SPECIMENOrdering Facility: [facility] Address: [address] [place] [address] Performed By: #### 5 7021-8 ####[facility]ATORYCLIA [id number] [address] Lymphocytes/100 WBC (Bld) 29.9 % Normal [facility] Comment on above: Order Comment: Speci men Type: BLOOD SPECIMENOrdering Facility: [facility] Address: [address] [place] [address] Performed By: #### 5 7021-8 ####[facility]ATORYCLIA [id number] [address] MCH (RBC) [Entitic mass] 29.6 pg Normal 26.0-34.0 [facility] Comment on above: Order Comment: Speci men Type: BLOOD SPECIMENOrdering Facility: [facility] Address: [address] [place] [address] Performed By: #### 5 7021-8 ####[facility]ATORYCLIA [id number] [address] [place] MCHC (RBC) [Mass/Vol] 31.1 g/dL Normal 30.5-36.0 [facility] Comment on above: Order Comment: Speci men Type: BLOOD SPECIMENOrdering Facility: [facility] Address: [address] [place] [address] Performed By: #### 5 7021-8 ####[facility]ATORYCLIA [id number] [address] MCV (RBC) [Entitic vol] 95.0 fL Normal 80.0-100.0 [facility] Comment on above: Order Comment: Speci men Type: BLOOD SPECIMENOrdering Facility: [facility] Address: [address] [place] [address] Performed By: #### 5 7021-8 ####[facility]ORATORYCLIA [id number] [address] [place] Monocytes (Bld) [#/Vol] 0.71 10*3/uL Normal <0.87 [facility] Comment on above: Order Comment: Speci men Type: BLOOD SPECIMENOrdering Facility: [facility] Address: [address] [place] [address] Performed By: #### 5 7021-8 ####[facility] LABORATORYCLIA [id number] [address] Monocytes/100 WBC (Bld) 7.1 % Normal A [facility] Comment on above: Order Comment: Speci men Type: BLOOD SPECIMENOrdering Facility: [facility] Address: [address] [place] [address] Performed By: #### 5 7021-8 ####[facility]ORATORYCLIA [id number] [address] [place] Neutrophils (Bld) [#/Vol] 5.53 10*3/uL Normal 1.45-7.50 [facility] Comment on above: Order Comment: Speci men Type: BLOOD SPECIMENOrdering Facility: [facility] Address: [address] [place] [address] Performed By: #### 5 7021-8 ####[facility]ATORYCLIA [id number] [address] [place] Neutrophils/100 WBC (Bld) 55.0 % Normal [facility] Comment on above: Order Comment: Speci men Type: BLOOD SPECIMENOrdering Facility: [facility] Address: [address] [place] [address] Performed By: #### 5 7021-8 ####[facility]ORATORYCLIA [id number] [address] [place] Nucleated RBC (Bld) [#/Vol] 10*3/uL Normal <0.01 [facility] Comment on above: Order Comment: Speci men Type: BLOOD SPECIMENOrdering Facility: [facility] Address: [address] [place] [address] Performed By: #### 5 7021-8 ####[facility]ORATORYCLIA [id number] [place] [address] [place] Nucleated RBC/100 WBC (Bld) [Ratio] 0.0 /100 WBC Normal [facility] Comment on above: Order Comment: Speci men Type: BLOOD SPECIMENOrdering Facility: [facility] Address: [address] [place] [address] Performed By: #### 5 7021-8 ####[facility]ATORYCLIA [id number] [place] [address] [place] Platelet mean volume (Bld) [Entitic vol] 9.1 fL Normal 9.0-12.7 [facility] Comment on above: Order Comment: Speci men Type: BLOOD SPECIMENOrdering Facility: [facility] Address: [address] [place] [address] Performed By: #### 5 7021-8 ####[facility]ATORYCLIA [id number] [place] [address] [place] Platelets (Bld) [#/Vol] 288 10*3/uL Normal 150-400 [facility] Comment on above: Order Comment: Speci men Type: BLOOD SPECIMENOrdering Facility: [facility] Address: [address] [place] [address] Performed By: #### 5 7021-8 ####[facility]ATORYCLIA [id number] [place] [address] [place] RBC (Bld) [#/Vol] 4.23 10*6/uL Normal 3.90-5.20 [facility] Comment on above: Order Comment: Speci men Type: BLOOD SPECIMENOrdering Facility: [facility] Address: [address] [place] [address] Performed By: #### 5 7021-8 ####[facility]ORATORYCLIA [id number] [place] [address] [place] WBC (Bld) [#/Vol] 10.04 10*3/uL Normal 3.70-11.00 [facility] Comment on above: Order Comment: Speci men Type: BLOOD SPECIMENOrdering Facility: [facility] Address: [address] [place] [address] Performed By: #### 5 7021-8 ####[facility] LABORATORYCLIA [id number] [address] [place] CNPNon 12-07-2024 CNPN Normal [facility] Comprehensive metabolic 2000 panelon 12-07-2024 Albumin [Mass/Vol] 3.2 g/dL Low 3.9-4.9 [facility] Comment on above: Order Comment: Speci men Type: BLOOD SPECIMENOrdering Facility: [facility] Address: [address] [place] [address] Performed By: #### 2 4323-8, 67911-1, 51049-3 ####[facility]ORATORYCLIA [id number] [address] [place] ALP [Catalytic activity/Vol] 100 U/L Normal 34-123 [facility] Comment on above: Order Comment: Speci men Type: BLOOD SPECIMENOrdering Facility: [facility] Address: [address] [place] [address] Performed By: #### 2 4323-8, 94448-6, 20988-3 ####[facility]ATORYCLIA [id number] [address] [place] ALT With P-5'-P [Catalytic activity/Vol] 7 U/L Normal 7-38 [facility] Comment on above: Order Comment: Speci men Type: BLOOD SPECIMENOrdering Facility: [facility] Address: [address] [place] [address] Performed By: #### 2 4323-8, 31813-8, 39477-9 ####[facility]ORATORYCLIA [id number] [address] Anion gap [Moles/Vol] 8 mmol/L Normal 8-15 [facility] Comment on above: Order Comment: Speci men Type: BLOOD SPECIMENOrdering Facility: [facility] Address: [address] [place] [address] Performed By: #### 2 4323-8, 31809-8, 60031-3 ####[facility]ORATORYCLIA [id number] [place] [address] [place] AST With P-5'-P [Catalytic activity/Vol] 13 U/L Normal 13-35 [facility] Comment on above: Order Comment: Speci men Type: BLOOD SPECIMENOrdering Facility: [facility] Address: [address] [place] [address] Performed By: #### 2 4323-8, 49785-8, 00334-9 ####[facility]ATORYCLIA [id number] [place] [address] [place] Bilirubin [Mass/Vol] 0.4 mg/dL Normal 0.2-1.3 [facility] Comment on above: Order Comment: Speci men Type: BLOOD SPECIMENOrdering Facility: [facility] Address: [address] [place] [address] Performed By: #### 2 4323-8, 78651-8, 96444-1 ####[facility]ORATORYCLIA [id number] [place] [address] [place] Calcium [Mass/Vol] 9.2 mg/dL Normal 8.5-10.2 [facility] Comment on above: Order Comment: Speci men Type: BLOOD SPECIMENOrdering Facility: [facility] Address: [address] [place] [address] Performed By: #### 2 4323-8, 47571-6, 48971-7 ####[facility]ATORYCLIA [id number] [place] [address] [place] Chloride [Moles/Vol] 101 mmol/L Normal 98-107 [facility] Comment on above: Order Comment: Speci men Type: BLOOD SPECIMENOrdering Facility: [facility] Address: [address] [place], [place] [address] Performed By: #### 2 4323-8, 90953-4, 23405-0 ####[facility] [id number] [place] [id number] [place] CO2 [Moles/Vol] 30 mmol/L Normal 22-30 [facility] Comment on above: Order Comment: Speci men Type: BLOOD SPECIMENOrdering Facility: [facility] Address: [address] [place] [address] Performed By: #### 2 4323-8, 20957-7, 96113-6 ####[facility]ITALCLIA [id number] [address] OF [facility] Creatinine [Mass/Vol] 0.86 mg/dL Normal 0.58-0.96 [facility] Comment on above: Order Comment: Speci men Type: BLOOD SPECIMENOrdering Facility: [facility] Address: [address] [place] [address] Performed By: #### 2 4323-8, 81497-6, 75137-9 ####[facility]PITALIA [id number] [address] Creatinine and Glomerular filtration rate.predicted panel (S/P/Bld) 70 mL/min/1.73m??? Normal >=60 [facility] Comment on above: Order Comment: Speci men Type: BLOOD SPECIMENOrdering Facility: [facility] Address: [address] [place] [address] Result Comment: Whitney mated Glomerular Filtration Rate (eGFR) is calculated using the 2020 CKD-EPI creatinine equation. This equation utilizes serum creatinine, sex, and age as parameters. The creatinine assay has traceable calibration to isotope dilution-mass spectrometry. Refer to KDIGO guidelines for clinical interpretation. In patients with unstable renal function, e.g. those with acute kidney injury, the eGFR may not accurately reflect actual GFR. Performed By: #### 2 4323-8, 68815-5, 39375-0 ####[facility]ATORYCLIA [id number] [place] [id number] [place] Glucose [Mass/Vol] 95 mg/dL Normal 74-99 [facility] Comment on above: Order Comment: Speci men Type: BLOOD SPECIMENOrdering Facility: [facility] Address: [address] [place] [address] Result Comment: The [place] [employer] (ADA) provides guidance for cutoff values for fasting glucose and random glucose. The ADA defines fasting as no caloric intake for at least 8 hours. Fasting plasma glucose results between 100 to 125 mg/dL indicate increased risk for diabetes (prediabetes).Fasting plasma glucose results greater than or equal to 126 mg/dL meet the criteria for diagnosis of diabetes. In the absence of unequivocal hyperglycemia, results should be confirmed by repeat testing. In a patient with classic symptoms of hyperglycemia or hyperglycemic crisis, random plasma glucose results greater than or equal to 200 mg/dL meet the criteria for diagnosis of diabetes.Reference: Standards of Medical Care in Diabetes 2016, [place] [employer]. Diabetes Care. 2016.39(Suppl 1). Performed By: #### 2 4323-8, 51551-1, 65349-8 ####[facility]ATORYCLIA [id number] [place] [address] [place] Potassium [Moles/Vol] 4.0 mmol/L Normal 3.7-5.1 [facility] Comment on above: Order Comment: Ashu garcia Type: BLOOD SPECIMENOrdering Facility: [facility] Address: [address] [place] [address] Performed By: #### 2 4323-8, 52896-8, 90767-1 ####[facility]ATORYCLIA [id number] [place] [id number] [place] Protein [Mass/Vol] 7.4 g/dL Normal 6.3-8.0 [facility] Comment on above: Order Comment: Ashu garcia Type: BLOOD SPECIMENOrdering Facility: [facility] Address: [address] [place] [address] Performed By: #### 2 4323-8, 05639-0, 21172-0 ####[facility]ORATORYCLIA [id number] [place] [address] [place] Sodium [Moles/Vol] 139 mmol/L Normal 136-144 [facility] Comment on above: Order Comment: Speci men Type: BLOOD SPECIMENOrdering Facility: [facility] Address: [address] [place], [place] [address] Performed By: #### 2 4323-8, 01325-6, 17310-7 ####[facility]ATORYCLIA [id number] [place] [id number] [facility] Urea nitrogen [Mass/Vol] 10 mg/dL Normal 7-21 [facility] Comment on above: Order Comment: Speci men Type: BLOOD SPECIMENOrdering Facility: [facility] Address: [address] [place], [place] [address] Performed By: #### 2 4323-8, 10073-6, 21506-4 ####[facility]ORATORYCLIA [id number] [place] [id number] [facility] ED NOTEon 12-07-2024 ED NOTE HNO ID: [id number] Author: RICO BRAUN RN Service: Emergency Medicine Author Type: Registered Nurse Type: ED Notes Filed: 12/07/2024 23:02 Note Text: Called up to 4200 to ensure bed is ready. Per community pharmacist bed is ready at this time. [facility] ED NOTE HNO ID: [id number] Author: XOCHITL MARTINEZ RN Service: ? Author Type: Registered Nurse Type: ED Notes Filed: 12/07/2024 18:30 Note Text: Meal tray given. Pt more sleepy than earlier. BGL checked. Pt denies any needs. [facility] ED NOTE HNO ID: [id number] Author: XOCHITL MARTINEZ RN Service: ? Author Type: Registered Nurse Type: ED Notes Filed: 12/07/2024 18:29 Note Text: Attempted to check blood glucose, pt refsused. Pt also refusing insulin [facility] ED NOTE HNO ID: [id number] Author: PINO ODOM RN Service: ? Author Type: Registered Nurse Type: ED Notes Filed: 12/07/2024 17:00 Note Text: Bed: 11-ED Expected date: Expected time: Means of arrival: Comments: squad Normal [facility] ED NOTE Normal [facility] ED PROV NOTEon 12-07-2024 ED PROV NOTE Normal [facility] ED PROV NOTE Normal [facility] HIGH SENSITIVITY TROPONIN T (INITIAL)on 12-07-2024 Troponin T.cardiac High sensitivity method [Mass/Vol] 9 ng/L Normal <12 [facility] Comment on above: Order Comment: Speci men Type: BLOOD SPECIMENOrdering Facility: [facility] Address: [address] [place] [address] Performed By: #### L [id number] ####[facility]ATORYCLIA [id number] [address] HIGH SENSITIVITY TROPONIN T (SECOND)on 12-07-2024 Troponin T.cardiac High sensitivity method [Mass/Vol] 8 ng/L Normal <12 [facility] Comment on above: Order Comment: Speci men Type: BLOOD SPECIMENOrdering Facility: [facility] Address: [address] [place] [address] Performed By: #### L [id number] ####[facility]ATORYCLIA [id number] [address] STATES [facility] HISTORY PHYSICALon HISTORY PHYSICAL Normal [facility] NT-proBNP SerPl-mCncon 12-07 Natriuretic peptide.B prohormone N-Terminal [Mass/Vol] 1788 pg/mL High <450 [facility] Comment on above: Order Comment: Speci men Type: BLOOD SPECIMENOrdering Facility: [facility] Address: [address] [place] [address] Performed By: #### 2 4323-8, 48527-4, 67402-0 ####[facility]ATORYCLIA [id number] [address] Procalcitonin SerPl-mCncon 0 12-07-2024 Procalcitonin [Mass/Vol] ng/mL Normal <0.09 [facility] Comment on above: Order Comment: Speci men Type: BLOOD SPECIMENOrdering Facility: [facility] Address: [address] [place] [address] Result Comment: For a guided interpretation of test results, please visit the Change in Procalcitonin Calculator, [email or web address]. Performed By: #### 2 4323-8, 25577-3, 63899-9 ####[facility]ATORYCLIA [id number] [address] OF [facility] STREPTOCOCCUS PNEUMONIAE ANT IGEN URINEon 12-07-2024 STREPTOCOCCUS PNEUMONIAE ANTIGEN URINE Normal [facility] Comment on above: Performed By: #### S PNAG ####[facility]ORATORYCLIA [id number] [address] Urinalysis complete panel (U )on 12-07-2024 Bilirubin Ql (U) Negative Normal Negative [facility] Comment on above: Order Comment: Speci men Type: URINE SPECIMENOrdering Facility: [facility] Address: [address] [place] [address] Performed By: #### 6 30-4, 16550-8 ####[facility]ATORYCLIA [id number] [address] [place] Clarity (Unsp spec) Clear Normal Clear [facility] Comment on above: Order Comment: Speci men Type: URINE SPECIMENOrdering Facility: [facility] Address: [address] [place] [address] Performed By: #### 6 30-4, 13692-9 ####[facility]ATORYCLIA [id number] [address] Color (U) Light Yellow Normal yellow [facility] Comment on above: Order Comment: Speci men Type: URINE SPECIMENOrdering Facility: [facility] Address: [address] [place] [address] Performed By: #### 6 30-4, 01220-3 ####[facility]ATORYCLIA [id number] [address] [place] Epithelial cells LM.HPF (Urine sed) [#/Area] Few Normal [facility] Comment on above: Order Comment: Speci men Type: URINE SPECIMENOrdering Facility: [facility] Address: [address] [place] [address] Performed By: #### 6 30-4, 37820-3 ####[facility]ORATORYCLIA [id number] [address] Glucose Test strip (U) [Mass/Vol] Negative Normal Trace, Negative [facility] Comment on above: Order Comment: Speci men Type: URINE SPECIMENOrdering Facility: [facility] Address: [address] [place] [address] Performed By: #### 6 30-4, 93137-7 ####[facility]ORATORYCLIA [id number] [address] Hemoglobin Ql (U) Negative Normal Negative, Trace [facility] Comment on above: Order Comment: Speci men Type: URINE SPECIMENOrdering Facility: [facility] Address: [address] [place] [address] Performed By: #### 6 30-4, 96845-3 ####[facility]ATORYCLIA [id number] [address] Ketones Ql (U) Negative Normal Negative, Trace [facility] Comment on above: Order Comment: Speci men Type: URINE SPECIMENOrdering Facility: [facility] Address: [address] [place] [address] Performed By: #### 6 30-4, 83911-1 ####[facility]ATORYCLIA [id number] [address] Leukocyte esterase Test strip Ql (U) 500 [place]/uL Abnormal Negative, 25 [place]/uL [facility] Comment on above: Order Comment: Speci men Type: URINE SPECIMENOrdering Facility: [facility] Address: [address] [place] [address] Performed By: #### 6 30-4, 06001-4 ####[facility] LABORATORYCLIA [id number] [address] [place] Nitrite Ql (U) 1+ Abnormal Negative [facility] Comment on above: Order Comment: Speci men Type: URINE SPECIMENOrdering Facility: [facility] Address: [address] [place] [address] Performed By: #### 6 30-4, 38366-3 ####[facility]ATORYCLIA [id number] [address] STATES OF [facility] pH (U) 5.0 [pH] Normal 5.0-8.0 [facility] Comment on above: Order Comment: Speci men Type: URINE SPECIMENOrdering Facility: [facility] Address: [address] [place] [address] Performed By: #### 6 30-4, 47262-6 ####[facility]ATORYCLIA [id number] [address] [place] Protein (U) [Mass/Vol] Negative Normal Trace , Negative [facility] Comment on above: Order Comment: Speci men Type: URINE SPECIMENOrdering Facility: [facility] Address: [address] [place] [address] Performed By: #### 6 30-4, 64076-7 ####[facility]ATORYCLIA [id number] [address] [place] RBC LM.HPF (Urine sed) [#/Area] 3-5 /HPF Abnormal 0-3 /HPF [facility] Comment on above: Order Comment: Speci men Type: URINE SPECIMENOrdering Facility: [facility] Address: [address] [place] [address] Performed By: #### 6 30-4, 99384-7 ####[facility]ATORYCLIA [id number] [address] [place] Specific gravity (U) [Rel density] 1.010 Normal 1.005-1.030 [facility] Comment on above: Order Comment: Speci men Type: URINE SPECIMENOrdering Facility: [facility] Address: [address] [place] [address] Performed By: #### 6 30-4, 11493-3 ####[facility]ATORYCLIA [id number] [place] [address] [facility] Urobilinogen Ql (U) Normal Normal Normal [facility] Comment on above: Order Comment: Speci men Type: URINE SPECIMENOrdering Facility: [facility] Address: [address] [place], [place] [address] Performed By: #### 6 30-4, 39933-7 ####[facility]ORATORYCLIA [id number] [place] [address] [facility] WBC LM.HPF (Urine sed) [#/Area] 11-25 /HPF Abnormal 0-5 /HPF [facility] Comment on above: Order Comment: Speci men Type: URINE SPECIMENOrdering Facility: [facility] Address: [address] [place], [place] [address] Performed By: #### 6 30-4, 59305-7 ####[facility]ORATORYCLIA [id number] [place] [address] [facility] XR CHEST 1V FRONTALon 2024 XR CHEST 1V FRONTAL Normal [facility] 37on 11-18-2024 37 YOUR APPOINTMENT TOMarilia HARVEY WAS WITH THE [facility], COPD CLINIC, PULMONARY AND SLEEP MEDICINE OFFICE. PLEASE CALL OUR OFFICE AT [phone] for our [place] office location or [phone] for our [place] location, IF YOU HAVE NOT RECEIVED YOUR TEST RESULTS 7 DAYS AFTER TESTING IS COMPLETED. PLEASE REMEMBER TO REQUEST REFILLS AT YOUR OFFICE VISITS. PHONE/FAX REQUESTS REQUIRE 48-72 HOURS FOR RESPONSE. A FRIENDLY REMINDER COPAYS ARE DUE AT TIME OF SERVICE. THANK YOU. Our Patients Are Important! We want to improve and you can help. After your visit we want you to feel: Listened to, Respected and have your health care explained. You may receive a survey asking you about your visit. Please complete the survey. We will use your feedback to make improvements. COVID-19 VACCINATION INFORMATION: PH. [phone] [email or web address] /VACCINE [facility] Central Scheduling [phone] [facility] Sleep Scheduling [phone] Normal [facility] Office Visiton 11-18-2024 Follow-up visit [id number] Tata Lopes 1945 F Date Provider Department Center 11/18/2024 [id number]-OSKFSUKJASON MORAN SHMGMITPULM None Family History Problem Relation Age of Onset Dementia Mother Family Status - Relation Status Age at Mother Level of Service:05853 AR OFFICE/OUTPATIENT ESTABLISHED MOD MDM 30 MIN Reason for Visit and Comments: Follow-up [098151] - 2month,copd,mary Normal [facility] Progress Noteon 11-18-2024 Progress Note [facility]- Pulmonary and Sleep Medicine [address] [place] , [address] [facility] [address] PH: [phone] Visit type: An Established patient 11/18/2024 CHIEF COMPLAINT/REASON FOR REFERRAL: Chief Complaint Patient presents with Follow-up 2month,copd,mary History of Present Illness Ana Lopes is a 79 y.o. female with history of pulmonary fibrosis, COPD chronic respiratory failure on supplemental oxygen, DVT hypertension sleep apnea currently in extended-care facility presents to the office for follow-up on 2 to 3 L supplemental oxygen Patient states that she walks with a physical therapist with a walker Pneumonia vaccine: not sure Seasonal flu vaccine: 2023 COVID vaccine:04/2023 RSV vaccine: not sure MMRC Dyspnea Scale: Grade Description of Breathlessness 0 I only get breathless with strenuous exercise. 1 I get short of breath when hurrying on level ground or walking up a slight hill. 2 On level ground, I walk slower than people of the same age because of breathlessness, or have to stop for breath when walking at my own pace. 3 I stop for breath after walking about 100 yards or after a few minutes on level ground. 4 I am too breathless to leave the house or I am breathless when dressing. PastMedical History Medical History[1] Past Surgical History Surgical History[2] Allergies Allergies[3] Medications Current Medications[4] Social History Social History Tobacco Use Smoking status: Former Smokeless tobacco: Never Tobacco comments: Quit smoking: quit in highschool Substance Use Topics Alcohol use: No Alcohol/week: 0.0 standard drinks of alcohol FamilyHistory Family History[5] Review of Systems Review of Systems Constitutional: Positive for fatigue. Respiratory: Positive for apnea and shortness of breath. Cardiovascular: Positive for leg swelling. Physical Exam Vitals: 11/18/24 1032 BP: 100/62 Pulse: 104 SpO2: 92% Weight: 224 lb (102 kg) Height: 5' 2" (1.575 m) Physical Exam Vitals reviewed. Constitutional: Appearance: She is obese. HENT: Head: Normocephalic and atraumatic. Cardiovascular: Rate and Rhythm: Normal rate and regular rhythm. Pulses: Normal pulses. Heart sounds: Normal heart sounds. Pulmonary: Effort: Pulmonary effort is normal. Breath sounds: Rales present. Musculoskeletal: Cervical back: Normal range of motion. Neurological: Mental Status: She is alert. Psychiatric: Mood and Affect: Mood normal. Behavior: Behavior normal. Data Reviewed and Summarized LABS and Studies: Available studies were personally reviewed. Salient findings summarized in HPI & A/P Imaging: Available studies were personally reviewed. Salient findings summarized in HPI & A/P CT scan of the chest done on 10 September 2024 interpreted by me shows bilateral interstitial changes consistent with fibrosis with mild bronchiectasis there are some areas of groundglass opacities as well stable in comparison to previous CAT scan, 08 July 2024 PFT's: Pulmonary Functions Testing Results: No results found for: "FEV1", "FVC", "CUE6OHC", "TLC", DLCO Assessment and Plan 1. Pulmonary fibrosis (HCC) (Primary) PFT never done 2. Chronic respiratory failure with hypoxia (HCC) Continue supplemental oxygen 3. Chronic bronchitis, unspecified chronic bronchitis type (HCC) - ipratropium-albuterol (Duo-Neb) 0.5-2.5 mg/3 mL nebulizer solution; Take 3 mL by nebulization 4 times daily. Dispense: 180 mL; Refill: 1 4. MARY (obstructive sleep apnea) Encourage patient to use CPAP patient currently in a facility 5. Morbid obesity (HCC) -Weight loss 6. Allergic rhinitis, unspecified seasonality, unspecified trigger Continue Victor Hugoe Jason Moran MD Pulmonary, Critical Care, & Sleep Medicine Portions of the information within this encounter were entered using an electronic dictation system. Best attempts were made to edit/proofread the information prior to note completion. Despite the review of information, some errors may remain. If there are questions related to the information contained within the note please contact the [1] Past Medical History: Diagnosis Date Allergic rhinitis Anxiety COPD (chronic obstructive pulmonary disease) (HCC) Debility Depression Dizziness DM2 (diabetes mellitus, type 2) (HCC) DVT (deep venous thrombosis) (HCC) GERD (gastroesophageal reflux disease) Hypercholesteremia Hypertension Lymphedema Migraine headache Morbid obesity (HCC) Nephrolithiasis status post perc nephrolithotomy MARY (obstructive sleep apnea) Osteoarthrosis Pneumonia Seizures (HCC) [2] Past Surgical History: Procedure Laterality Date CHOLECYSTECTOMY 1991 EYE SURGERY 2005 orbital I and D KIDNEY STONE SURGERY 2011 right then left nephrolithotomy TONSILLECTOMY (HISTORICAL) [3] Allergies Allergen Reactions Acetaminophen-Codeine Nitroglycerin Other Reaction(s): Co (more content not included)... Normal [facility] Anion gap in Serum or Plasma Ordered By: Sadie Barnes on 11-16-2024 Anion gap [Moles/Vol] 7 mmol/L 5-15 [facility] Automated blood erythrocyte countOrdered By: Sadie Barnes on 11-16-2024 RBC (Bld) [#/Vol] 3.88 10*6/uL Low 4.2-5.4 [facility] Comment on above: Order Comment: 207.1 Performed By: #### L 500.2500, L100.0500 #### [facility] [address], [place], [id number] Automated blood hematocrit ( percentage)Ordered By: Sadie Barnes on 11-16-2024 Hematocrit (Bld) [Volume fraction] 37.4 % Normal 37-47 [facility] Comment on above: Order Comment: 207.1 Performed By: #### L 500.2500, L100.0500 #### [facility] [address] [place], [address] BUN/creatinine ratioOrdered By: Sadie Barnes on 11-16-2024 Urea nitrogen/Creatinine [Mass ratio] 15.5 mg/mg - [facility] Basic Metabolic Profile (BMP )on 11-16-2024 BUN/CRE 15.5 RATIO Normal - [facility] Comment on above: Order Comment: 304.1 Performed By: #### L 100.0500, L500.2500 #### [facility] [address] [place], [address] GAP 7 Normal 5-15 [facility] Comment on above: Order Comment: 304.1 Performed By: #### L 100.0500, L500.2500 #### [facility] [address] [place], [address] Potassium [Moles/Vol] 4.6 mmol/L Normal 3.3-5.1 [facility] Comment on above: Order Comment: 304.1 Performed By: #### L 100.0500, L500.2500 #### [facility] [address] [place], [address] CBC-Complete Blood Cnt No Di ffon 11-16-2024 RDW SD 48.7 fl High 35.1-43.9 [facility] Comment on above: Order Comment: 207.1 Performed By: #### L 500.2500, L100.0500 #### [facility] [address] [place], [address] Carbon dioxide, total [Moles /volume] in Central venous bloodOrdered By: Sadie Barnes on 11-16-2024 CO2 [Moles/Vol] 29.8 mmol/L Normal 21.0-32.0 [facility] Comment on above: Order Comment: 304.1 Performed By: #### L 100.0500, L500.2500 #### [facility] [address] [place], [address] Chloride assayOrdered By: Lee Barnes on 11-16-2024 Chloride [Moles/Vol] 104 mmol/L Normal 98-108 [facility] Comment on above: Order Comment: 304.1 Performed By: #### L 100.0500, L500.2500 #### [facility] [address] [place], [place], [address] Erythrocyte distribution wid th ratioOrdered By: Sadie Barnes on 11-16-2024 Erythrocyte distribution width (RBC) [Ratio] 13.8 % Normal 11.6-14.6 [facility] Comment on above: Order Comment: 207.1 Performed By: #### L 500.2500, L100.0500 #### [facility] [address] [place], [address] (866) Erythrocyte distribution wid th standard deviationOrdered By: Sadie Barnes on 11-16-2024 Erythrocyte distribution width (RBC) [Ratio] 48.7 fl High 35.1-43.9 [facility] Glomerular filtration rate ( GFR) estimation/1.73 sq m using serum, plasma, or whole bOrdered By: Sadie Barnes on 11-16-2024 GFR/1.73 sq M.predicted among non-blacks MDRD (S/P/Bld) [Vol rate/Area] 76 mL/min/{1.73_m2} Normal >60 [facility] Comment on above: mL/min/1.73m2 CKD-EP I Creatinine Equation (2020) Order Comment: 304.1 Result Comment: mL/m in/1.73m2 CKD-EPI Creatinine Equation (2020) Performed By: #### L 100.0500, L500.2500 #### [facility] [address] [place], [address] Hemoglobin measurementOrdere d By: Sadie Barnes on 11-16-2024 Hemoglobin (Bld) [Mass/Vol] 11.6 g/dL Low 12.0-15.0 [facility] Comment on above: Order Comment: 207.1 Performed By: #### L 500.2500, L100.0500 #### [facility] [address] [place], [address] MCV (mean corpuscular volume ) determinationOrdered By: Sadie Barnes on 11-16-2024 MCV (RBC) [Entitic vol] 96.4 fL Normal 81-99 [facility] Comment on above: Order Comment: 207.1 Performed By: #### L 500.2500, L100.0500 #### [facility] [address] [place], [address] Mean corpuscular hemoglobin (MCH) determinationOrdered By: Sadie Barnes on 11-16-2024 MCH (RBC) [Entitic mass] 29.9 pg Normal 27.0-32.0 [facility] Comment on above: Order Comment: 207.1 Performed By: #### L 500.2500, L100.0500 #### [facility] [address] [place], [address] Mean corpuscular hemoglobin concentration (MCHC) determinationOrdered By: Sadie Barnes on 11-16-2024 MCHC (RBC) [Mass/Vol] 31.0 g/dL Low 32-36 [facility] Comment on above: Order Comment: 207.1 Performed By: #### L 500.2500, L100.0500 #### [facility] [address] [place], [address] Mean platelet volume determi nationOrdered By: Sadie Barnes on 11-16-2024 Platelet mean volume (Bld) [Entitic vol] 9.7 fL Normal 6.2-12.0 [facility] Comment on above: Order Comment: 207.1 Performed By: #### L 500.2500, L100.0500 #### [facility] [address] [place], [address] Platelet countOrdered By: Lee Barnes on 11-16-2024 Platelets (Bld) [#/Vol] 315 10*3/uL Normal 150-450 [facility] Comment on above: Order Comment: 207.1 Performed By: #### L 500.2500, L100.0500 #### [facility] [address] [place], [address] Potassium measurement (mass/ volume)Ordered By: Sadie Barnes on 11-16-2024 Potassium (Unsp spec) [Mass/Vol] 4.6 mmol/L 3.3-5.1 [facility] Serum creatinine measurement (mass/volume)Ordered By: Sadie Barnes on 11-16-2024 Creatinine [Mass/Vol] 0.80 mg/dL Normal 0.70-1.20 [facility] Comment on above: Order Comment: 304.1 Performed By: #### L 100.0500, L500.2500 #### [facility] [address] [place], [address] Serum glucose measurement (m ass/volume)Ordered By: Sadie Barnes on 11-16-2024 Glucose [Mass/Vol] 98 mg/dL Normal 70-99 [facility] Comment on above: Order Comment: 304.1 Performed By: #### L 100.0500, L500.2500 #### [facility] [address] [place], [address] Serum or plasma calcium lainey urement (mass/volume)Ordered By: Sadie Barnes on 11-16-2024 Calcium [Mass/Vol] 9.4 mg/dL Normal 7.6-11.0 [facility] Comment on above: Order Comment: 304.1 Performed By: #### L 100.0500, L500.2500 #### [facility] [address] [place], [address] Serum or plasma urea nitroge n measurement (mass/volume)Ordered By: Sadie Barnes on 11-16-2024 Urea nitrogen [Mass/Vol] 12 mg/dL Normal 4-19 [facility] Comment on above: Order Comment: 304.1 Performed By: #### L 100.0500, L500.2500 #### [facility] [address] [place], [address] Sodium levelOrdered By: David Barnes on 11-16-2024 Sodium [Moles/Vol] 142 mmol/L Normal 133-145 [facility] Comment on above: Order Comment: 304.1 Performed By: #### L 100.0500, L500.2500 #### [facility] [address] [place], [address] White blood cell (WBC) count Ordered By: Janicestephanie Barnes on 11-16-2024 WBC (Bld) [#/Vol] 8.8 10*3/uL Normal 4.4-11.0 [facility] Comment on above: Order Comment: 207.1 Performed By: #### L 500.2500, L100.0500 #### [facility] [address] [place], [address] Basic Metabolic Profile (BMP )on 11-13-2024 BUN Normal 4-19 [facility] Comment on above: Order Comment: 304.1 Result Comment: UTO X1 Performed By: #### L 100.0500, L500.2500 #### [facility] [address] [place], [address] BUN/CRE Normal 10-20 [facility] Comment on above: Order Comment: 304.1 Result Comment: UTO X1 Performed By: #### L 100.0500, L500.2500 #### [facility] [address] [place], [address] Calcium Normal 7.6-11.0 [facility] Comment on above: Order Comment: 304.1 Result Comment: UTO X1 Performed By: #### L 100.0500, L500.2500 #### [facility] [address] [place], [address] CL Normal 98-108 [facility] Comment on above: Order Comment: 304.1 Result Comment: UTO X1 Performed By: #### L 100.0500, L500.2500 #### [facility] [address] [place], [address] CO2 Normal 21.0-32.0 [facility] Comment on above: Order Comment: 304.1 Result Comment: UTO X1 Performed By: #### L 100.0500, L500.2500 #### [facility] [address] [place], [address] CREAT,SERUM Normal 0.70-1.20 [facility] Comment on above: Order Comment: 304.1 Result Comment: UTO X1 Performed By: #### L 100.0500, L500.2500 #### [facility] [address] [place], [address] eGFR Normal >60 [facility] Comment on above: Order Comment: 304.1 Result Comment: UTO X1 Performed By: #### L 100.0500, L500.2500 #### [facility] [address] [place], [address] GAP Normal 5-15 [facility] Comment on above: Order Comment: 304.1 Result Comment: UTO X1 Performed By: #### L 100.0500, L500.2500 #### [facility] [address] [place], [address] GLU Normal 70-99 [facility] Comment on above: Order Comment: 304.1 Result Comment: UTO X1 Performed By: #### L 100.0500, L500.2500 #### [facility] [address] [place], [address] Potassium Normal 3.3-5.1 [facility] Comment on above: Order Comment: 304.1 Result Comment: UTO X1 Performed By: #### L 100.0500, L500.2500 #### [facility] [address] [place], [address] Basic Metabolic Profile (BMP) Normal 133-145 [facility] Comment on above: Order Comment: 304.1 Result Comment: UTO X1 Performed By: #### L 100.0500, L500.2500 #### [facility] [address] [place], [address] CBC-Complete Blood Cnt No Di ffon 11-13-2024 HCT Normal 37-47 [facility] Comment on above: Order Comment: 304.1 Result Comment: UTO X1 Performed By: #### L 100.0500, L500.2500 #### [facility] [address] [place], [address] HGB Normal 12.0-15.0 [facility] Comment on above: Order Comment: 304.1 Result Comment: UTO X1 Performed By: #### L 100.0500, L500.2500 #### [facility] [address] [place], [address] MCH Normal 27.0-32.0 [facility] Comment on above: Order Comment: 304.1 Result Comment: UTO X1 Performed By: #### L 100.0500, L500.2500 #### [facility] [address] [place], [address] MCHC Normal 32-36 [facility] Comment on above: Order Comment: 304.1 Result Comment: UTO X1 Performed By: #### L 100.0500, L500.2500 #### [facility] [address] [place], [address] MCV Normal 81-99 [facility] Comment on above: Order Comment: 304.1 Result Comment: UTO X1 Performed By: #### L 100.0500, L500.2500 #### [facility] [address] [place], [address] PLT Normal 150-450 [facility] Comment on above: Order Comment: 304.1 Result Comment: UTO X1 Performed By: #### L 100.0500, L500.2500 #### [facility] [address] [place], [address] RBC Normal 4.2-5.4 [facility] Comment on above: Order Comment: 304.1 Result Comment: UTO X1 Performed By: #### L 100.0500, L500.2500 #### [facility] [address] [place], [address] RDW CV Normal 11.6-14.6 [facility] Comment on above: Order Comment: 304.1 Result Comment: UTO X1 Performed By: #### L 100.0500, L500.2500 #### [facility] [address] [place], [address] RDW SD Normal 35.1-43.9 [facility] Comment on above: Order Comment: 304.1 Result Comment: UTO X1 Performed By: #### L 100.0500, L500.2500 #### [facility] [address] [place], [address] WBC Normal 4.4-11.0 [facility] Comment on above: Order Comment: 304.1 Result Comment: UTO X1 Performed By: #### L 100.0500, L500.2500 #### [facility] [address] [place], [address] CNPNon 11-06-2024 CNPN Normal [facility] No Panel Informationon 11-06 BLANK _ [facility] Implant Date 10/22/2023 [facility] PACEMAKER REMOTE CHECKon AV Delay Adaptive Paced Minimum (ms) 300 ms [facility] AV Delay Adaptive Sensed Minimum (ms) 250 ms [facility] AV Delay Adaptive Status DISABLED [facility] Battery Voltage (volts) 3.04 V [facility] Дмитрий RA Pacing Amplitude (volts) 2.25 V [facility] Дмитрий RA Pacing Polarity BI [facility] Дмитрий RA Pacing Pulse Width (ms) 0.4 ms [facility] Дмитрий RA Sensing Amplitude (mvolts) 0.3 mV [facility] Дмитрий RA Sensing Blanking Period (ms) 150 ms [facility] Дмитрий RA Sensing Polarity BI [facility] Дмитрий RA Sensing Refractory Period (ms) Auto [facility] Дмитрий RV Pacing Amplitude (volts) 2 V [facility] Дмитрий RV Pacing Polarity BI [facility] Дмитрий RV Pacing Pulse Width (ms) 0.4 ms [facility] Дмитрий RV Sensing Amplitude (mvolts) 0.9 mV [facility] Дмитрий RV Sensing Blanking Period (ms) 200 ms [facility] Дмитрий RV Sensing Polarity BI [facility] Hysteresis Rate (bpm) DISABLED [facility] Lead1 Mfg Medtronic [facility] Lead2 Mfg Medtronic [facility] Location RV [facility] Location RA [facility] Lower Rate (bpm) 60 {beats}/min [facility] Max Sensor Rate (bmp) 120 {beats}/min [facility] Model [id number] Rakel XT DR MRI Cl [facility] Model 3830-69 [facility] Model 5076-52 Capsurefix Novus [facility] Pacing Mode DDD [facility] PM-Device Mfg MDT [facility] PM-Percent Pacing (A) 9.44 % [facility] PM-Percent Pacing (V) 99.47 % [facility] PM-PMT Intervention ENABLED [facility] PM-PVC Intervention ENABLED [facility] PM-Rate Modulation Acceleration Reaction 30 s [facility] PM-Rate Modulation ADL Rate (bpm) 95 {beats}/min [facility] PM-Rate Modulation Deceleration Exercise [facility] PM-Rate Modulation Greenlee 3 [facility] PM-Rate Modulation Threshold Low [facility] RA Bipolar Impedance ohms 589 ohm [facility] RA Unipolar Impedance ohms 304 ohm [facility] RV Bipolar Impedance ohms 532 ohm [facility] RV Unipolar Impedance 380 ohm [facility] Serial Number [id number] [facility] Serial Number [id number] [facility] Serial Number [id number] [facility] Thresh RA Capture Amplitude (volts) 1.125 V [facility] Thresh RA Capture Duration (ms) 0.4 ms [facility] Thresh RA Sensing Amplitude (mvolts) 4 mV [facility] Thresh RV Capture Amplitude (volts) 0.625 V [facility] Thresh RV Capture Duration (ms) 0.4 ms [facility] Thresh RV Sensing Amplitude (mvolts) 9 mV [facility] Tracking Rate (bpm) 120 {beats}/min [facility] PM remote interrogation. Presenting EGM shows p-synch RV paced @ 90 ppm. Interrogation shows no ventricular high rate or mode switch episodes since last check. Lead impedances and sensing measurements stable. Battery voltage stable. Recommended replacement time is 11.5 years. Vamshi CVT NOTE TO PROVIDERS: "CARD" Flowsheets contain detailed device programming and testing data. Paceart/Interrogation PDF can be found under CARDIAC DATA AND REPORT, "Scanned Documents" section. PACEART 11/06/2024 Formattin g of this note might be different from the original. PM remote interrogation. Presenting EGM shows p-synch RV paced @ 90 ppm. Interrogation shows no ventricular high rate or mode switch episodes since last check. Lead impedances and sensing measurements stable. Battery voltage stable. Recommended replacement time is 11.5 years. Vamshi CVT NOTE TO PROVIDERS: "CARD" Flowsheets contain detailed device programming and testing data. Paceart/Interrogation PDF can be found under CARDIAC DATA AND REPORT, "Scanned Documents" section. [facility] Basic Metabolic Profile (BMP )on 11-05-2024 BUN Normal 4-19 [facility] Comment on above: Order Comment: 304-1 Result Comment: [facility] Performed By: #### L 100.0500, L500.2500 #### [facility] [address] [facility] [address] BUN/CRE Normal 10-20 [facility] Comment on above: Order Comment: 304-1 Result Comment: [facility] Performed By: #### L 100.0500, L500.2500 #### [facility] [address] [place], [address] Calcium Normal 7.6-11.0 [facility] Comment on above: Order Comment: 304-1 Result Comment: [facility] Performed By: #### L 100.0500, L500.2500 #### [facility] [address] [place], [address] CL Normal 98-108 [facility] Comment on above: Order Comment: 304-1 Result Comment: [facility] Performed By: #### L 100.0500, L500.2500 #### [facility] [address] [place], [address] CO2 Normal 21.0-32.0 [facility] Comment on above: Order Comment: 304-1 Result Comment: [facility] Performed By: #### L 100.0500, L500.2500 #### [facility] [address] [place], [address] CREAT,SERUM Normal 0.70-1.20 [facility] Comment on above: Order Comment: 304- Result Comment: [facility] Performed By: #### L 100.0500, L500.2500 #### [facility] [address] [place], [address] eGFR Normal >60 [facility] Comment on above: Order Comment: 304- Result Comment: [facility] Performed By: #### L 100.0500, L500.2500 #### [facility] [address] [place], [address] GAP Normal 5-15 [facility] Comment on above: Order Comment: 304- Result Comment: [facility]SE Performed By: #### L 100.0500, L500.2500 #### [facility] [address] [place], [address] GLU Normal 70-99 [facility] Comment on above: Order Comment: 304-1 Result Comment: [facility] Performed By: #### L 100.0500, L500.2500 #### [facility] [address] [place], [address] Potassium Normal 3.3-5.1 [facility] Comment on above: Order Comment: 304-1 Result Comment: [facility] Performed By: #### L 100.0500, L500.2500 #### [facility] [address] [place], [address] Basic Metabolic Profile (BMP) Normal 133-145 [facility] Comment on above: Order Comment: 304-1 Result Comment: [facility]SE Performed By: #### L 100.0500, L500.2500 #### [facility] [address] [place], [address] Basic metabolic 2000 panelon 11-05-2024 Anion gap [Moles/Vol] 9 mmol/L Normal 8-15 [facility] Comment on above: Order Comment: Speci men Type: BLOOD SPECIMENOrdering Facility: [facility] Address: [address] [place] [address] Performed By: #### 2 4321-2, ####[facility]ORY[facility]IA [id number] [place] [address] [place] Calcium [Mass/Vol] 8.8 mg/dL Normal 8.5-10.2 [facility] Comment on above: Order Comment: Speci men Type: BLOOD SPECIMENOrdering Facility: [facility] Address: [address] [place] [address] Performed By: #### 2 4321-2, ####[facility]ATORYCLIA [id number] [place] [address] [place] Chloride [Moles/Vol] 99 mmol/L Normal 98-107 [facility] Comment on above: Order Comment: Speci men Type: BLOOD SPECIMENOrdering Facility: [facility] Address: [address] [place] [address] Performed By: #### 2 4321-2, ####[facility]ORYCLIA [id number] [place] [address] [place] CO2 [Moles/Vol] 27 mmol/L Normal 22-30 [facility] Comment on above: Order Comment: Speci men Type: BLOOD SPECIMENOrdering Facility: [facility] Address: [address] [place] [address] Performed By: #### 2 4321-2, ####[facility]ATORYCLIA [id number] [address] STATES OF [facility] Creatinine [Mass/Vol] 0.86 mg/dL Normal 0.58-0.96 [facility] Comment on above: Order Comment: Ashu garcia Type: BLOOD SPECIMENOrdering Facility: [facility] Address: [address] [place] [address] Performed By: #### 2 4321-2, ####[facility]ORATORYIA [id number] [address] Creatinine and Glomerular filtration rate.predicted panel (S/P/Bld) 70 mL/min/1.73m??? Normal >=60 [facility] Comment on above: Order Comment: Ashu garcia Type: BLOOD SPECIMENOrdering Facility: [facility] Address: [address] [place] [address] Result Comment: Whitney mated Glomerular Filtration Rate (eGFR) is calculated using the 2020 CKD-EPI creatinine equation. This equation utilizes serum creatinine, sex, and age as parameters. The creatinine assay has traceable calibration to isotope dilution-mass spectrometry. Refer to KDIGO guidelines for clinical interpretation. In patients with unstable renal function, e.g. those with acute kidney injury, the eGFR may not accurately reflect actual GFR. Performed By: #### 2 4321-2, ####[facility]ORATORYIA [id number] [place] [id number] [place] Glucose [Mass/Vol] 125 mg/dL High 74-99 [facility] Comment on above: Order Comment: Ashu garcia Type: BLOOD SPECIMENOrdering Facility: [facility] Address: [address] [place] [address] Result Comment: The [place] [employer] (ADA) provides guidance for cutoff values for fasting glucose and random glucose. The ADA defines fasting as no caloric intake for at least 8 hours. Fasting plasma glucose results between 100 to 125 mg/dL indicate increased risk for diabetes (prediabetes).Fasting plasma glucose results greater than or equal to 126 mg/dL meet the criteria for diagnosis of diabetes. In the absence of unequivocal hyperglycemia, results should be confirmed by repeat testing. In a patient with classic symptoms of hyperglycemia or hyperglycemic crisis, random plasma glucose results greater than or equal to 200 mg/dL meet the criteria for diagnosis of diabetes.Reference: Standards of Medical Care in Diabetes 2016, [place] [employer]. Diabetes Care. 2016.39(Suppl 1). Performed By: #### 2 4321-2, ####[facility]ATORYCLIA [id number] [address] STATES OF [facility] Potassium [Moles/Vol] 4.0 mmol/L Normal 3.7-5.1 [facility] Comment on above: Order Comment: Speci men Type: BLOOD SPECIMENOrdering Facility: [facility] Address: [address] [place] [address] Performed By: #### 2 4320-08, ####[facility]ATORYCLIA [id number] [address] STATES OF [facility] Sodium [Moles/Vol] 135 mmol/L Low 136-144 [facility] Comment on above: Order Comment: Adii jose Type: BLOOD SPECIMENOrdering Facility: [facility] Address: [address] [place] [address] Performed By: #### 2 4320-08, ####[facility]ATORYCLIA [id number] [address] STATES [facility] Urea nitrogen [Mass/Vol] 17 mg/dL Normal 7-21 [facility] Comment on above: Order Comment: Ashu garcia Type: BLOOD SPECIMENOrdering Facility: [facility] Address: [address] [place] [address] Performed By: #### 2 2, ####[facility]ATORYCLIA [id number] [place] [id number] [place] CASE MANAGEMon 11-05-2024 CASE MANAGEM Normal [facility] CBC panel Auto (Bld)on 11-05 Erythrocyte distribution width (RBC) [Ratio] 13.5 % Normal 11.5-15.0 [facility] Comment on above: Order Comment: Speci men Type: BLOOD SPECIMENOrdering Facility: [facility] Address: [address] [place] [address] Performed By: #### 5 8410-2 ####[facility]ATORYCLIA [id number] [address] Hematocrit (Bld) [Volume fraction] 38.6 % Normal 36.0-46.0 [facility] Comment on above: Order Comment: Speci men Type: BLOOD SPECIMENOrdering Facility: [facility] Address: [address] [place] [address] Performed By: #### 5 8410-2 ####[facility]ATORYCLIA [id number] [address] OF [facility] Hemoglobin (Bld) [Mass/Vol] 12.4 g/dL Normal 11.5-15.5 [facility] Comment on above: Order Comment: Speci men Type: BLOOD SPECIMENOrdering Facility: [facility] Address: [address] [place] [address] Performed By: #### 5 8410-2 ####[facility]ATORYCLIA [id number] [address] MCH (RBC) [Entitic mass] 30.2 pg Normal 26.0-34.0 [facility] Comment on above: Order Comment: Speci men Type: BLOOD SPECIMENOrdering Facility: [facility] Address: [address] [place] [address] Performed By: #### 5 8410-2 ####[facility]ORATORYCLIA [id number] [address] OF [facility] MCHC (RBC) [Mass/Vol] 32.1 g/dL Normal 30.5-36.0 [facility] Comment on above: Order Comment: Speci men Type: BLOOD SPECIMENOrdering Facility: [facility] Address: [address] [place] [address] Performed By: #### 5 8410-2 ####[facility]ATORYCLIA [id number] [address] MCV (RBC) [Entitic vol] 94.1 fL Normal 80.0-100.[address] [facility] Comment on above: Order Comment: Speci men Type: BLOOD SPECIMENOrdering Facility: [facility] Address: [address] [place] [address] Performed By: #### 5 8410-2 ####[facility]ORATORYCLIA [id number] [place] [address] [place] Nucleated RBC (Bld) [#/Vol] 10*3/uL Normal <0.01 [facility] Comment on above: Order Comment: Speci men Type: BLOOD SPECIMENOrdering Facility: [facility] Address: [address] [place] [address] Performed By: #### 5 8410-2 ####[facility]ORATORYCLIA [id number] [address] [place] Platelet mean volume (Bld) [Entitic vol] 9.2 fL Normal 9.0-12.7 [facility] Comment on above: Order Comment: Speci men Type: BLOOD SPECIMENOrdering Facility: [facility] Address: [address] [place] [address] Performed By: #### 5 8410-2 ####[facility]ORATORYCLIA [id number] [address] [place] Platelets (Bld) [#/Vol] 305 10*3/uL Normal 150-400 [facility] Comment on above: Order Comment: Speci men Type: BLOOD SPECIMENOrdering Facility: [facility] Address: [address] [place] [address] Performed By: #### 5 8410-2 ####[facility]ORATORYCLIA [id number] [place] [address] [place] RBC (Bld) [#/Vol] 4.10 10*6/uL Normal 3.90-5.20 [facility] Comment on above: Order Comment: Speci men Type: BLOOD SPECIMENOrdering Facility: [facility] Address: [address] [place] [address] Performed By: #### 5 8410-2 ####[facility]ORATORYCLIA [id number] [place] [address] [place] WBC (Bld) [#/Vol] 9.41 10*3/uL Normal 3.70-11.00 [facility] Comment on above: Order Comment: Speci men Type: BLOOD SPECIMENOrdering Facility: [facility] Address: [address] [place] [address] Performed By: #### 5 8410-2 ####[facility]ORATORYCLIA [id number] [place] [address] [place] CBC-Complete Blood Cnt No Di ffon 11-05-2024 HCT Normal 37-47 [place] Comment on above: Order Comment: Result Comment: [facility] Performed By: #### L 100.0500, L500.2500 #### [facility] [address] [place], [address] HGB Normal 12.0-15.0 [place] Comment on above: Order Comment: Result Comment: [facility] Performed By: #### L 100.0500, L500.2500 #### [facility] [address] [place], [address] MCH Normal 27.0-32.0 [facility] Comment on above: Order Comment: 304 Result Comment: [facility] Performed By: #### L 100.0500, L500.2500 #### [facility] [address] [place], [address] MCHC Normal 32-36 [facility] Comment on above: Order Comment: 304-1 Result Comment: [facility] Performed By: #### L 100.0500, L500.2500 #### [facility] [address] [place], [address] MCV Normal 81-99 [facility] Comment on above: Order Comment: 304-1 Result Comment: [facility] Performed By: #### L 100.0500, L500.2500 #### [facility] [address] [place], [address] PLT Normal 150-450 [facility] Comment on above: Order Comment: 304-1 Result Comment: [facility] Performed By: #### L 100.0500, L500.2500 #### [facility] [address] [place], [address] RBC Normal 4.2-5.4 [facility] Comment on above: Order Comment: 304-1 Result Comment: [facility] Performed By: #### L 100.0500, L500.2500 #### [facility] [address] [place], [address] RDW CV Normal 11.6-14.6 [facility] Comment on above: Order Comment: 304- Result Comment: [facility] Performed By: #### L 100.0500, L500.2500 #### [facility] [address] [place], [address] RDW SD Normal 35.1-43.9 [facility] Comment on above: Order Comment: 304- Result Comment: [facility] Performed By: #### L 100.0500, L500.2500 #### [facility] [address] [place], [address] WBC Normal 4.4-11.0 [facility] Comment on above: Order Comment: 304- Result Comment: [facility] Performed By: #### L 100.0500, L500.2500 #### [facility] [address] [place], [address] CNDSon 11-05-2024 CNDS Normal [facility] Magnesium SerPl-mCncon 11-05 Magnesium [Mass/Vol] 1.5 mg/dL Low 1.7-2.3 [facility] Comment on above: Order Comment: Speci men Type: BLOOD SPECIMENOrdering Facility: [facility] Address: [address] [place] [address] Performed By: #### 2 4320-2, ####[facility] LABORATORYCLIA [id number] [place] [address] [place] Basic metabolic 2000 panelon 11-04-2024 Anion gap [Moles/Vol] 10 mmol/L Normal 8-15 [facility] Comment on above: Order Comment: Speci men Type: BLOOD SPECIMENOrdering Facility: [facility] Address: [address] [place] [address] Performed By: #### 2 4320-2, ####[facility] LABORATORYCLIA [id number] [place] [address] [place] Calcium [Mass/Vol] 8.8 mg/dL Normal 8.5-10.2 [facility] Comment on above: Order Comment: Speci men Type: BLOOD SPECIMENOrdering Facility: [facility] Address: [address] [place] [address] Performed By: #### 2 4320-08, ####[facility] LABORATORYCLIA [id number] [place] [address] [place] Chloride [Moles/Vol] 100 mmol/L Normal 98-107 [facility] Comment on above: Order Comment: Speci men Type: BLOOD SPECIMENOrdering Facility: [facility] Address: [address] [place] [address] Performed By: #### 2 4320-2, ####[facility]ATORYCLIA [id number] [place] [address] [place] CO2 [Moles/Vol] 28 mmol/L Normal 22-30 [facility] Comment on above: Order Comment: Speci men Type: BLOOD SPECIMENOrdering Facility: [facility] Address: [address] [place], [place] [address] Performed By: #### 2 4320-2, ####[facility]OSPITALIA [id number] [place] [address] [place] [facility] Creatinine [Mass/Vol] 0.95 mg/dL Normal 0.58-0.96 [facility] Comment on above: Order Comment: Ashu garcia Type: BLOOD SPECIMENOrdering Facility: [facility] Address: [address] [place] [address] Performed By: #### 2 4321-2, ####[facility] HOSPITALIA [id number] [place] [id number] [facility] Creatinine and Glomerular filtration rate.predicted panel (S/P/Bld) 62 mL/min/1.73m??? Normal >=60 [facility] Comment on above: Order Comment: Ashu garcia Type: BLOOD SPECIMENOrdering Facility: [facility] Address: [address] [place] [address] Result Comment: Whitney mated Glomerular Filtration Rate (eGFR) is calculated using the 2020 CKD-EPI creatinine equation. This equation utilizes serum creatinine, sex, and age as parameters. The creatinine assay has traceable calibration to isotope dilution-mass spectrometry. Refer to KDIGO guidelines for clinical interpretation. In patients with unstable renal function, e.g. those with acute kidney injury, the eGFR may not accurately reflect actual GFR. Performed By: #### 2 4321-2, ####[facility] HOSPITALIA [id number] [place] [address] [place] Glucose [Mass/Vol] 122 mg/dL High 74-99 [facility] Comment on above: Order Comment: Ashu garcia Type: BLOOD SPECIMENOrdering Facility: [facility] Address: [address] [place] [address] Result Comment: The [place] [employer] (ADA) provides guidance for cutoff values for fasting glucose and random glucose. The ADA defines fasting as no caloric intake for at least 8 hours. Fasting plasma glucose results between 100 to 125 mg/dL indicate increased risk for diabetes (prediabetes).Fasting plasma glucose results greater than or equal to 126 mg/dL meet the criteria for diagnosis of diabetes. In the absence of unequivocal hyperglycemia, results should be confirmed by repeat testing. In a patient with classic symptoms of hyperglycemia or hyperglycemic crisis, random plasma glucose results greater than or equal to 200 mg/dL meet the criteria for diagnosis of diabetes.Reference: Standards of Medical Care in Diabetes 2016, [place] [employer]. Diabetes Care. 2016.39(Suppl 1). Performed By: #### 2 1-2, ####[facility]ORATORYCLIA [id number] [place] [address] [place] Potassium [Moles/Vol] 4.3 mmol/L Normal 3.7-5.1 [facility] Comment on above: Order Comment: Speci men Type: BLOOD SPECIMENOrdering Facility: [facility] Address: [address] [place] [address] Performed By: #### 2 4320-08, ####[facility]ORATORYCLIA [id number] [address] [place] Sodium [Moles/Vol] 138 mmol/L Normal 136-144 [facility] Comment on above: Order Comment: Adii jose Type: BLOOD SPECIMENOrdering Facility: [facility] Address: [address] [place] [address] Performed By: #### 2 4320-08, ####[facility]ATORYCLIA [id number] [address] [place] Urea nitrogen [Mass/Vol] 18 mg/dL Normal 7-21 [facility] Comment on above: Order Comment: Ashu garcia Type: BLOOD SPECIMENOrdering Facility: [facility] Address: [address] [place] [address] Performed By: #### 2 4320-08, ####[facility]ORATORYCLIA [id number] [address] [place] CASE MGT INIT ASSESon 2024 CASE MGT INIT ASSES Normal [facility] CBC panel Auto (Bld)on 11-04 Erythrocyte distribution width (RBC) [Ratio] 13.7 % Normal 11.5-15.0 [facility] Comment on above: Order Comment: Adii men Type: BLOOD SPECIMENOrdering Facility: [facility] Address: [address] [place] [address] Performed By: #### 5 8410-2 ####[facility]ORATORYCLIA [id number] [address] Hematocrit (Bld) [Volume fraction] 40.2 % Normal 36.0-46.0 [facility] Comment on above: Order Comment: Speci men Type: BLOOD SPECIMENOrdering Facility: [facility] Address: [address] [place] [address] Performed By: #### 5 8410-2 ####[facility]ORATORYCLIA [id number] [address] OF [facility] Hemoglobin (Bld) [Mass/Vol] 12.9 g/dL Normal 11.5-15.5 [facility] Comment on above: Order Comment: Speci men Type: BLOOD SPECIMENOrdering Facility: [facility] Address: [address] [place] [address] Performed By: #### 5 8410-2 ####[facility]ORATORYCLIA [id number] [address] MCH (RBC) [Entitic mass] 30.4 pg Normal 26.0-34.0 [facility] Comment on above: Order Comment: Speci men Type: BLOOD SPECIMENOrdering Facility: [facility] Address: [address] [place] [address] Performed By: #### 5 8410-2 ####[facility]ORATORYCLIA [id number] [address] [place] MCHC (RBC) [Mass/Vol] 32.1 g/dL Normal 30.5-36.0 [facility] Comment on above: Order Comment: Speci men Type: BLOOD SPECIMENOrdering Facility: [facility] Address: [address] [place] [address] Performed By: #### 5 8410-2 ####[facility]ORATORYCLIA [id number] [place] [address] [place] MCV (RBC) [Entitic vol] 94.8 fL Normal 80.0-100.[address] [facility] Comment on above: Order Comment: Speci men Type: BLOOD SPECIMENOrdering Facility: [facility] Address: [address] [place] [address] Performed By: #### 5 8410-2 ####[facility]ORATORYCLIA [id number] [place] [address] [place] Nucleated RBC (Bld) [#/Vol] 10*3/uL Normal <0.01 [facility] Comment on above: Order Comment: Speci men Type: BLOOD SPECIMENOrdering Facility: [facility] Address: [address] [place] [address] Performed By: #### 5 8410-2 ####[facility]ATORYCLIA [id number] [address] [place] Platelet mean volume (Bld) [Entitic vol] 9.3 fL Normal 9.0-12.7 [facility] Comment on above: Order Comment: Speci men Type: BLOOD SPECIMENOrdering Facility: [facility] Address: [address] [place] [address] Performed By: #### 5 8410-2 ####[facility]ATORYCLIA [id number] [address] [place] Platelets (Bld) [#/Vol] 304 10*3/uL Normal 150-400 [facility] Comment on above: Order Comment: Speci men Type: BLOOD SPECIMENOrdering Facility: [facility] Address: [address] [place] [address] Performed By: #### 5 8410-2 ####[facility]ATORYCLIA [id number] [place] [address] [place] RBC (Bld) [#/Vol] 4.24 10*6/uL Normal 3.90-5.20 [facility] Comment on above: Order Comment: Speci men Type: BLOOD SPECIMENOrdering Facility: [facility] Address: [address] [place] [address] Performed By: #### 5 8410-2 ####[facility]ATORYCLIA [id number] [address] [place] WBC (Bld) [#/Vol] 10.64 10*3/uL Normal 3.70-11.00 [facility] Comment on above: Order Comment: Speci men Type: BLOOD SPECIMENOrdering Facility: [facility] Address: [address] [place] [address] Performed By: #### 5 8410-2 ####[facility]ATORYCLIA [id number] [address] [place] CONSULT PROGon 11-04-2024 CONSULT PROG Normal [facility] CONSULT PROG Normal [facility] Magnesium SerPl-mCncon 11-04 Magnesium [Mass/Vol] 1.6 mg/dL Low 1.7-2.3 [facility] Comment on above: Order Comment: Speci men Type: BLOOD SPECIMENOrdering Facility: [facility] Address: [address] [place] [address] Performed By: #### 2 4321-2, 87535-0 ####[facility]ATORYCLIA [id number] [address] NURSING PROGon 11-04-2024 NURSING PROG Normal [facility] THERAPY NTon 11-04-2024 THERAPY NT Normal [facility] Basic Metabolic Profile (BMP )on 11-03-2024 BUN Normal 4-19 [facility] Comment on above: Order Comment: 304.1 Result Comment: [facility] Performed By: #### L 100.0500, L500.2500 #### [facility] [address] [place], [address] BUN/CRE Normal 10-20 [facility] Comment on above: Order Comment: 304.1 Result Comment: [facility] Performed By: #### L 100.0500, L500.2500 #### [facility] [address] [place], [address] Calcium Normal 7.6-11.0 [facility] Comment on above: Order Comment: 304.1 Result Comment: [facility] Performed By: #### L 100.0500, L500.2500 #### [facility] [address] [place], [address] CL Normal 98-108 [facility] Comment on above: Order Comment: 304.1 Result Comment: [facility] Performed By: #### L 100.0500, L500.2500 #### [facility] [address] [place], [address] CO2 Normal 21.0-32.0 [facility] Comment on above: Order Comment: 304.1 Result Comment: [facility] Performed By: #### L 100.0500, L500.2500 #### [facility] [address] [place], [address] CREAT,SERUM Normal 0.70-1.20 [facility] Comment on above: Order Comment: 304.1 Result Comment: [facility] Performed By: #### L 100.0500, L500.2500 #### [facility] [address] [place], [address] eGFR Normal >60 [facility] Comment on above: Order Comment: 304.1 Result Comment: [facility] Performed By: #### L 100.0500, L500.2500 #### [facility] [address] [place], [address] GAP Normal 5-15 [facility] Comment on above: Order Comment: 304.1 Result Comment: [facility] Performed By: #### L 100.0500, L500.2500 #### [facility] [address] [place], [address] GLU Normal 70-99 [facility] Comment on above: Order Comment: 304.1 Result Comment: [facility] Performed By: #### L 100.0500, L500.2500 #### [facility] [address] [place], [address] Potassium Normal 3.3-5.1 [facility] Comment on above: Order Comment: 304.1 Result Comment: [facility] Performed By: #### L 100.0500, L500.2500 #### [facility] [address] [place], [address] Basic Metabolic Profile (BMP) Normal 133-145 [facility] Comment on above: Order Comment: 304.1 Result Comment: [facility] I [facility] Performed By: #### L 100.0500, L500.2500 #### [facility] [address] [place], [address] Basic metabolic 2000 panelon 11-03-2024 Anion gap [Moles/Vol] 13 mmol/L Normal 8-15 [facility] Comment on above: Order Comment: Speci men Type: BLOOD SPECIMENOrdering Facility: [facility] Address: [address] [place] [address] Performed By: #### 3 3959-8, 24031-0, 80464-1 ####[facility]ORATORYCLIA [id number] [place] [address] [place] Calcium [Mass/Vol] 7.7 mg/dL Low 8.5-10.2 [facility] Comment on above: Order Comment: Speci men Type: BLOOD SPECIMENOrdering Facility: [facility] Address: [address] [place] [address] Performed By: #### 3 3959-8, 56044-0, 06131-3 ####[facility]ORATORYCLIA [id number] [place] [address] [place] Chloride [Moles/Vol] 104 mmol/L Normal 98-107 [facility] Comment on above: Order Comment: Speci men Type: BLOOD SPECIMENOrdering Facility: [facility] Address: [address] [place] [address] Performed By: #### 3 3959-8, 12365-9, 84817-2 ####[facility]ATORYCLIA [id number] [place] [address] [place] CO2 [Moles/Vol] 22 mmol/L Normal 22-30 [facility] Comment on above: Order Comment: Speci men Type: BLOOD SPECIMENOrdering Facility: [facility] Address: [address] [place] [address] Performed By: #### 3 3959-8, 13472-5, ####[facility]ATORYCLIA [id number] [address] STATES OF [facility] Creatinine [Mass/Vol] 0.87 mg/dL Normal 0.58-0.96 [facility] Comment on above: Order Comment: Speci men Type: BLOOD SPECIMENOrdering Facility: [facility] Address: [address] [place] [address] Performed By: #### 3 3959-8, , ####[facility]PITALIA [id number] [address] Creatinine and Glomerular filtration rate.predicted panel (S/P/Bld) 69 mL/min/1.73m??? Normal >=60 [facility] Comment on above: Order Comment: Speci men Type: BLOOD SPECIMENOrdering Facility: [facility] Address: [address] [place] [address] Result Comment: Whitney mated Glomerular Filtration Rate (eGFR) is calculated using the 2020 CKD-EPI creatinine equation. This equation utilizes serum creatinine, sex, and age as parameters. The creatinine assay has traceable calibration to isotope dilution-mass spectrometry. Refer to KDIGO guidelines for clinical interpretation. In patients with unstable renal function, e.g. those with acute kidney injury, the eGFR may not accurately reflect actual GFR. Performed By: #### 3 3959-8, 04704-9, 63007-0 ####[facility]ORATORYCLIA [id number] [place] [address] [place] Glucose [Mass/Vol] 189 mg/dL High 74-99 [facility] Comment on above: Order Comment: Speci men Type: BLOOD SPECIMENOrdering Facility: [facility] Address: [address] [place] [address] Result Comment: The [place] [employer] (ADA) provides guidance for cutoff values for fasting glucose and random glucose. The ADA defines fasting as no caloric intake for at least 8 hours. Fasting plasma glucose results between 100 to 125 mg/dL indicate increased risk for diabetes (prediabetes).Fasting plasma glucose results greater than or equal to 126 mg/dL meet the criteria for diagnosis of diabetes. In the absence of unequivocal hyperglycemia, results should be confirmed by repeat testing. In a patient with classic symptoms of hyperglycemia or hyperglycemic crisis, random plasma glucose results greater than or equal to 200 mg/dL meet the criteria for diagnosis of diabetes.Reference: Standards of Medical Care in Diabetes 2016, [place] [employer]. Diabetes Care. 2016.39(Suppl 1). Performed By: #### 3 3959-8, 09130-8, 82854-6 ####[facility]ORATORYCLIA [id number] [place] [address] [place] Potassium [Moles/Vol] 3.6 mmol/L Low 3.7-5.1 [facility] Comment on above: Order Comment: Ashu garcia Type: BLOOD SPECIMENOrdering Facility: [facility] Address: [address] [place] [address] Performed By: #### 3 3959-8, 30550-5, 05933-6 ####[facility]ATORYCLIA [id number] [place] [address] [place] Sodium [Moles/Vol] 139 mmol/L Normal 136-144 [facility] Comment on above: Order Comment: Adii men Type: BLOOD SPECIMENOrdering Facility: [facility] Address: [address] [place] [address] Performed By: #### 3 3959-8, 13434-3, 60041-1 ####[facility]ATORYCLIA [id number] [place] [address] [place] Urea nitrogen [Mass/Vol] 17 mg/dL Normal 7-21 [facility] Comment on above: Order Comment: Speci men Type: BLOOD SPECIMENOrdering Facility: [facility] Address: [address] [place] [address] Performed By: #### 3 3959-8, 85579-4, 21786-2 ####[facility]ATORYCLIA [id number] [address] CBC panel Auto (Bld)on 11-03 Erythrocyte distribution width (RBC) [Ratio] 13.7 % Normal 11.5-15.0 [facility] Comment on above: Order Comment: Speci men Type: BLOOD SPECIMENOrdering Facility: [facility] Address: [address] [place] [address] Performed By: #### 5 8410-2 ####[facility]ORATORYCLIA [id number] [address] [place] Hematocrit (Bld) [Volume fraction] 40.2 % Normal 36.0-46.0 [facility] Comment on above: Order Comment: Speci men Type: BLOOD SPECIMENOrdering Facility: [facility] Address: [address] [place] [address] Performed By: #### 5 8410-2 ####[facility]ATORYCLIA [id number] [address] [place] Hemoglobin (Bld) [Mass/Vol] 13.0 g/dL Normal 11.5-15.5 [facility] Comment on above: Order Comment: Speci men Type: BLOOD SPECIMENOrdering Facility: [facility] Address: [address] [place] [address] Performed By: #### 5 8410-2 ####[facility]ATORYCLIA [id number] [address] [place] MCH (RBC) [Entitic mass] 30.3 pg Normal 26.0-34.0 [facility] Comment on above: Order Comment: Speci men Type: BLOOD SPECIMENOrdering Facility: [facility] Address: [address] [place] [address] Performed By: #### 5 8410-2 ####[facility]ATORYCLIA [id number] [address] [place] MCHC (RBC) [Mass/Vol] 32.3 g/dL Normal 30.5-36.0 [facility] Comment on above: Order Comment: Speci men Type: BLOOD SPECIMENOrdering Facility: [facility] Address: [address] [place] [address] Performed By: #### 5 8410-2 ####[facility]ORATORYCLIA [id number] [address] OF [facility] MCV (RBC) [Entitic vol] 93.7 fL Normal 80.0-100.0 [facility] Comment on above: Order Comment: Speci men Type: BLOOD SPECIMENOrdering Facility: [facility] Address: [address] [place] [address] Performed By: #### 5 8410-2 ####[facility]ATORYCLIA [id number] [address] Nucleated RBC (Bld) [#/Vol] 10*3/uL Normal <0.01 [facility] Comment on above: Order Comment: Speci men Type: BLOOD SPECIMENOrdering Facility: [facility] Address: [address] [place] [address] Performed By: #### 5 8410-2 ####[facility]ATORYCLIA [id number] [address] [place] Platelet mean volume (Bld) [Entitic vol] 9.1 fL Normal 9.0-12.7 [facility] Comment on above: Order Comment: Speci men Type: BLOOD SPECIMENOrdering Facility: [facility] Address: [address] [place] [address] Performed By: #### 5 8410-2 ####[facility]ATORYCLIA [id number] [address] [place] Platelets (Bld) [#/Vol] 302 10*3/uL Normal 150-400 [facility] Comment on above: Order Comment: Speci men Type: BLOOD SPECIMENOrdering Facility: [facility] Address: [address] [place], [place] [address] Performed By: #### 5 8410-2 ####[facility]ORATORYCLIA [id number] [place] [id number] [place] RBC (Bld) [#/Vol] 4.29 10*6/uL Normal 3.90-5.20 [facility] Comment on above: Order Comment: Speci men Type: BLOOD SPECIMENOrdering Facility: [facility] [facility] Address: [address] [place] [address] Performed By: #### 5 8410-2 ####[facility]ORATORYCLIA [id number] [place] [id number] [place] WBC (Bld) [#/Vol] 12.58 10*3/uL High 3.70-11.00 [facility] Comment on above: Order Comment: Speci men Type: BLOOD SPECIMENOrdering Facility: [facility] Address: [address] [place] [address] Performed By: #### 5 8410-2 ####[facility]ORATORYCLIA [id number] [place] [id number] [facility] [place] CBC-Complete Blood Cnt No Di ffon 11-03-2024 HCT Normal 37-47 [place] Comment on above: Order Comment: 304.1 Result Comment: [facility] Performed By: #### L 100.0500, L500.2500 #### [facility] [address] [place], [address] HGB Normal 12.0-15.0 [place] Comment on above: Order Comment: 304.1 Result Comment: [facility] Performed By: #### L 100.0500, L500.2500 #### [facility] [address] [facility] [place], [address] MCH Normal 27.0-32.0 [place] Comment on above: Order Comment: 304.1 Result Comment: [facility] Performed By: #### L 100.0500, L500.2500 #### [facility] [address] [place], [address] MCHC Normal 32-36 [place] Comment on above: Order Comment: 304.1 Result Comment: [facility] Performed By: #### L 100.0500, L500.2500 #### [facility] [address] [place], [address] MCV Normal 81-99 [place] Comment on above: Order Comment: 304.1 Result Comment: [facility] Performed By: #### L 100.0500, L500.2500 #### [facility] [address] [place], [address] PLT Normal 150-450 [place] Comment on above: Order Comment: 304.1 Result Comment: [facility] Performed By: #### L 100.0500, L500.2500 #### [facility] [address] [place], [address] RBC Normal 4.2-5.4 [place] Comment on above: Order Comment: 304.1 Result Comment: [facility] Performed By: #### L 100.0500, L500.2500 #### [facility] [address] [place], [address] RDW CV Normal 11.6-14.6 [facility] Comment on above: Order Comment: 304.1 Result Comment: [facility] Performed By: #### L 100.0500, L500.2500 #### [facility] [address] [place], [address] RDW SD Normal 35.1-43.9 [facility] Comment on above: Order Comment: 304.1 Result Comment: [facility] Performed By: #### L 100.0500, L500.2500 #### [facility] [address] [place], [address] WBC Normal 4.4-11.0 [facility] Comment on above: Order Comment: 304.1 Result Comment: [facility] Performed By: #### L 100.0500, L500.2500 #### [facility] [place], [address] CONSULTon 11-03-2024 CONSULT Normal [facility] ED NOTEon 11-03-2024 ED NOTE HNO ID: [id number] Author: HALI SAHU RN Service: Emergency Medicine Author Type: Registered Nurse Type: ED Notes Filed: 11/03/2024 14:35 Note Text: Bed is ready per 4200 [facility] ED NOTE HNO ID: [id number] Author: HALI SAHU RN Service: Emergency Medicine Author Type: Registered Nurse Type: ED Notes Filed: 11/03/2024 14:02 Note Text: PT to BS [facility] ED NOTE HNO ID: [id number] Author: HALI SAHU RN Service: Emergency Medicine Author Type: Registered Nurse Type: ED Notes Filed: 11/03/2024 14:02 Note Text: Pt ate approx 80% of her lunch tray [facility] ED NOTE HNO ID: [id number] Author: HALI SHAU RN Service: Emergency Medicine Author Type: Registered Nurse Type: ED Notes Filed: 11/03/2024 12:55 Note Text: Lunch tray offered to pt @ this time. Pt fell back to sleep Normal [facility] ED NOTE HNO ID: [id number] Author: HALI SAHU RN Service: Emergency Medicine Author Type: Registered Nurse Type: ED Notes Filed: 11/03/2024 10:40 Note Text: Physician consult @ BS [facility] ED NOTE Normal [facility] ED NOTE Normal [facility] ED NOTE Normal [facility] ED NOTE HNO ID: [id number] Author: ALISON MCCOY RN Service: ? Author Type: Registered Nurse Type: ED Notes Filed: 11/03/2024 02:57 Note Text: Seizure precautions placed at bedside, RT notified of pt duoneb and CPAP Normal [facility] Gas + CO Pnl BldVon 11-04-19 25 Lactate [Moles/Vol] 1.3 mmol/L Normal 0.5-2.2 [facility] Comment on above: Order Comment: Speci men Type: VENOUS BLOOD SPECIMENOrdering Facility: [facility] Address: [address] [place] [address] Performed By: #### 2 4344-4 ####[facility]ORATORYCLIA [id number] [address] Order Comment: Speci men Type: BLOOD SPECIMENOrdering Facility: [facility] Address: [address] [place] [address] Performed By: #### 3 2693-4 ####[facility]ATORYCLIA [id number] [address] Gas and Carbon monoxide pane l (BldV)on 11-03-2024 Base excess Calc (BldV) [Moles/Vol] 1 mmol/L Normal 0-2 [facility] Comment on above: Order Comment: Speci men Type: VENOUS BLOOD SPECIMENOrdering Facility: [facility] Address: [address] [place] [address] Performed By: #### 2 4344-4 ####[facility]ATORYCLIA [id number] [address] Body temperature 98.42 [degF] Normal [facility] Comment on above: Order Comment: Speci men Type: VENOUS BLOOD SPECIMENOrdering Facility: [facility] Address: [address] [place] [address] Performed By: #### 2 4344-4 ####[facility]ORATORYCLIA [id number] [address] [place] [facility] Calcium.ionized (BldV) [Mass/Vol] 1.16 mmol/L Normal 1.08-1.30 [facility] Comment on above: Order Comment: Speci men Type: VENOUS BLOOD SPECIMENOrdering Facility: [facility] Address: [address] [place] [address] Performed By: #### 2 4344-4 ####[facility]ORATORYCLIA [id number] [address] Calcium.ionized adjusted to pH 7.4 (BldA) [Moles/Vol] 1.11 mmol/L Normal 1.08-1.30 [facility] Comment on above: Order Comment: Speci men Type: VENOUS BLOOD SPECIMENOrdering Facility: [facility] Address: [address] [place] [address] Performed By: #### 2 4344-4 ####[facility]ATORYCLIA [id number] [address] [place] Carboxyhemoglobin (BldV) [Mass fraction] 1.7 % Normal 0.0-2.0 [facility] Comment on above: Order Comment: Speci men Type: VENOUS BLOOD SPECIMENOrdering Facility: [facility] Address: [address] [place] [address] Result Comment: Carb oxyhemoglobin Reference Range for Smokers: 2.0-8.0% Performed By: #### 2 4344-4 ####[facility]ATORYCLIA [id number] [address] [place] Chloride [Moles/Vol] 103 mmol/L Normal 97-105 [facility] Comment on above: Order Comment: Speci men Type: VENOUS BLOOD SPECIMENOrdering Facility: [facility] Address: [address] [place] [address] Performed By: #### 2 4344-4 ####[facility]ORATORYCLIA [id number] [address] [place] CO2 (BldV) [Partial pressure] 53 mm[Hg] Normal 42-55 [facility] Comment on above: Order Comment: Speci men Type: VENOUS BLOOD SPECIMENOrdering Facility: [facility] Address: [address] [place] [address] Performed By: #### 2 4344-4 ####[facility]ATORYCLIA [id number] [address] [place] CO2 adjusted to patient's actual temperature (BldV) [Partial pressure] 53 mmHg Normal 42-55 [facility] Comment on above: Order Comment: Speci men Type: VENOUS BLOOD SPECIMENOrdering Facility: [facility] Address: [address] [place] [address] Performed By: #### 2 4344-4 ####[facility]ORATORYCLIA [id number] [address] [place] Glucose [Mass/Vol] 129 mg/dL High 60-105 [facility] Comment on above: Order Comment: Speci men Type: VENOUS BLOOD SPECIMENOrdering Facility: [facility] Address: [address] [place] [address] Performed By: #### 2 4344-4 ####[facility]ATORYCLIA [id number] [address] [place] HCO3 (Bld) [Moles/Vol] 27 mmol/L Normal 24-28 [facility] Comment on above: Order Comment: Speci men Type: VENOUS BLOOD SPECIMENOrdering Facility: [facility] Address: [address] [place] [address] Performed By: #### 2 4344-4 ####[facility]ATORYCLIA [id number] [address] [place] Hematocrit (Bld) [Volume fraction] 40.3 % Normal 36.0-46.0 [facility] Comment on above: Order Comment: Speci men Type: VENOUS BLOOD SPECIMENOrdering Facility: [facility] Address: [address] [place] [address] Performed By: #### 2 4344-4 ####[facility]ORATORYCLIA [id number] [place] [address] [place] Hemoglobin (Bld) [Mass/Vol] 13.1 g/dL Normal 11.5-15.5 [facility] Comment on above: Order Comment: Speci men Type: VENOUS BLOOD SPECIMENOrdering Facility: [facility] Address: [address] [place] [address] Performed By: #### 2 4344-4 ####[facility]ORATORYCLIA [id number] [place] [address] Methemoglobin (Bld) [Mass fraction] 0.6 % Normal 0.0-1.5 [facility] Comment on above: Order Comment: Speci men Type: VENOUS BLOOD SPECIMENOrdering Facility: [facility] Address: [address] [place] [address] Performed By: #### 2 4344-4 ####[facility]ORATORYCLIA [id number] [address] O2 THERAPY Positive Normal [facility] Comment on above: Order Comment: Speci men Type: VENOUS BLOOD SPECIMENOrdering Facility: [facility] Address: [address] [place] [address] Performed By: #### 2 4344-4 ####[facility]ATORYCLIA [id number] [address] Oxygen (BldV) [Partial pressure] 52 mm[Hg] High 35-45 [facility] Comment on above: Order Comment: Speci men Type: VENOUS BLOOD SPECIMENOrdering Facility: [facility] Address: [address] [place] [address] Performed By: #### 2 4344-4 ####[facility]ATORYCLIA [id number] [address] Oxygen adjusted to patient's actual temperature (BldV) [Partial pressure] 51 mmHg High 35-45 [facility] Comment on above: Order Comment: Speci men Type: VENOUS BLOOD SPECIMENOrdering Facility: [facility] Address: [address] [place] [address] Performed By: #### 2 4344-4 ####[facility]ORATORYCLIA [id number] [address] Oxygen saturation in Venous blood 79 % Normal 60-85 [facility] Comment on above: Order Comment: Speci men Type: VENOUS BLOOD SPECIMENOrdering Facility: [facility] Address: [address] [place] [address] Performed By: #### 2 4344-4 ####[facility] LABORATORYCLIA [id number] [address] [place] Oxyhemoglobin (BldV) [Mass fraction] 78 % Normal 60-85 [facility] Comment on above: Order Comment: Speci men Type: VENOUS BLOOD SPECIMENOrdering Facility: [facility] Address: [address] [place] [address] Performed By: #### 2 4344-4 ####[facility]ORATORYCLIA [id number] [place] [address] [place] pH (BldV) 7.33 [pH] Normal 7.32-7.42 [facility] Comment on above: Order Comment: Speci men Type: VENOUS BLOOD SPECIMENOrdering Facility: [facility] Address: [address] [place] [address] Performed By: #### 2 4344-4 ####[facility]ORATORYCLIA [id number] [address] STATES [facility] pH adjusted to patient's actual temperature (BldV) 7.33 Normal 7.32-7.42 [facility] Comment on above: Order Comment: Speci men Type: VENOUS BLOOD SPECIMENOrdering Facility: [facility] Address: [address] [place] [address] Performed By: #### 2 4344-4 ####[facility]ATORYCLIA [id number] [place] [address] [place] Potassium [Moles/Vol] 3.7 mmol/L Normal 3.5-5.0 [facility] Comment on above: Order Comment: Speci men Type: VENOUS BLOOD SPECIMENOrdering Facility: [facility] Address: [address] [place] [address] Performed By: #### 2 4344-4 ####[facility]ATORYCLIA [id number] [place] [address] [place] Sodium [Moles/Vol] 141 mmol/L Normal 136-144 [facility] Comment on above: Order Comment: Speci men Type: VENOUS BLOOD SPECIMENOrdering Facility: [facility] Address: [address] [place] [address] Performed By: #### 2 4344-4 ####[facility]ORATORYCLIA [id number] [place] [address] [place] [facility] HISTORY PHYSICALon HISTORY PHYSICAL Normal [facility] HISTORY PHYSICAL Normal [facility] HbA1c (Bld)on 11-03-2024 Average glucose Estimated from glycated hemoglobin (Bld) [Mass/Vol] 143 mg/dL Normal [facility] Comment on above: Order Comment: Speci men Type: BLOOD SPECIMENOrdering Facility: [facility] Address: [address] [place] [address] Result Comment: eAG: (Estimated average glucose) is a calculated value from HgbA1c and is distribution sales representative of the average blood glucose level in the last 2-3 month period. Performed By: #### 5 5454-3 ####[facility] LABCLIA [id number] [address] STATES [facility] HbA1c (Bld) [Mass fraction] 6.6 % High 4.3-5.6 [facility] Comment on above: Order Comment: Specej [facility] Type: BLOOD SPECIMENOrdering Facility: [facility] Address: [address] [place] [address] Result Comment: Amer ican Diabetes Association guidelines indicate that patients with HgbA1c in the range 5.7-6.4% are at increased risk for development of diabetes, and intervention by lifestyle modification may be beneficial. HgbA1c greater or equal to 6.5% is considered diagnostic of diabetes. Performed By: #### 5 5454-3 ####[facility] LABCLIA [id number] [place] [id number] [facility] [place] LIPID PANEL, NONFASTINGon Cholesterol [Mass/Vol] 76 mg/dL Normal <200 [facility] Comment on above: Order Comment: Adii men Type: BLOOD SPECIMENOrdering Facility: [facility] Address: [address] [place] [address] Result Comment: <200 mg/dL, Desirable 200-239 mg/dL, Borderline high>239 mg/dL, High Performed By: #### L IPNF, , 3015-3, 2776-07 ####[facility]ATORYCLIA [id number] [address] HDL CHOLESTEROL, NF 25 mg/dL Low >39 [facility] Comment on above: Order Comment: Speci men Type: BLOOD SPECIMENOrdering Facility: [facility] Address: [address] [place] [address] Result Comment: 40-5 9 mg/dL, Acceptable>59 mg/dL, High: Negative risk factor for coronary heart disease<40 mg/dL, Low: Positive risk factor for coronary heart disease Performed By: #### L IPNF, , 3015-09, 2776-07 ####[facility]ATORYCLIA [id number] [address] LDL CHOLESTEROL CALCULATED, NF 23 mg/dL Normal <100 [facility] Comment on above: Order Comment: Adii [facility] Type: BLOOD SPECIMENOrdering Facility: [facility] Address: [address] [place] [address] Result Comment: <100 mg/dL, Optimal 100-129 mg/dL, Near optimal/above optimal 130-159 mg/dL, Borderline high 160-189 mg/dL, High>189 mg/dL, Very highSecondary prevention optimal LDL Cholesterol levels are recommended to be <70 mg/dLLDL cholesterol is calculated using the Chris-NIH equation. Performed By: #### L IPNF, , 3015-09, 2776-07 ####[facility]ATORYCLIA [id number] [address] LDL/HDL RATIO, NF 0.92 mg/dL Normal <2.54 [facility] Comment on above: Order Comment: Ashu [facility] Type: BLOOD SPECIMENOrdering Facility: [facility] Address: [address] [place] [address] Result Comment: Refe rence:1. National Cholesterol Education Program ATP III Guideline At-A-Glance Quick Desk Reference: National Heart, Lung, and Blood [place]. National Institutes of Health. 2001: NIH Publication No. 01-3305.2. An International Atherosclerosis Society position paper: global recommendations for the management of dyslipidemia: executive summary, Atherosclerosis. 2014: 232(2):410-413. Performed By: #### L DARY, , 3015-09, 2776-07 ####[facility]ATORYCLIA [id number] [address] NON HDL CHOL, NF 51 mg/dL Normal <130 [facility] Comment on above: Order Comment: Speci men Type: BLOOD SPECIMENOrdering Facility: [facility] Address: [address] [place] [address] Result Comment: <130 mg/dL, Optimal 130-159 mg/dL, Near optimal/above optimal 160-189 mg/dL, Borderline high 190-219 mg/dL, High>219 mg/dL, Very highSecondary prevention optimal non HDL Cholesterol levels are recommended to be <100 mg/dL Performed By: #### Ankur FOOTE, , 3015-09, 2776-07 ####[facility]ATORYCLIA [id number] [address] T CHOL/HDL RATIO NF 3.04 mg/dL Normal <5.10 [facility] Comment on above: Order Comment: Speci men Type: BLOOD SPECIMENOrdering Facility: [facility] Address: [address] [place] [address] Performed By: #### Ankur FOOTE, , 3015-09, 2776-07 ####[facility]ATORYCLIA [id number] [address] TRIGLYCERIDES, NF 165 mg/dL High <150 [facility] Comment on above: Order Comment: Speci men Type: BLOOD SPECIMENOrdering Facility: [facility] Address: [facility] [place] [address] Result Comment: <150 mg/dL, Normal 150-199 mg/dL, Borderline high 200-499 mg/dL, High>499 mg/dL, Very high Performed By: #### Ankur FOOTE, , 3015-09, 2776-07 ####[facility]ORATORYCLIA [id number] [place] [address] [place] VLDL CHOLESTEROL, NF 21 mg/dL Normal <30 [facility] Comment on above: Order Comment: Ashu garcia Type: BLOOD SPECIMENOrdering Facility: [facility] Address: [address] [place] [address] Performed By: #### [place], [address]-5, 3016-3, 2777-1 ####[facility]ATORYCLIA [id number] [place] [address] [place] Magnesium SerPl-mCncon 11-03 Magnesium [Mass/Vol] 1.4 mg/dL Low 1.7-2.3 [facility] Comment on above: Order Comment: Ashu garcia Type: BLOOD SPECIMENOrdering Facility: [facility] Address: [address] [place] [address] Performed By: #### [place], [address]-7, 3016-3, 2777-1 ####[facility]ATORYCLIA [id number] [address] [place] PT panel Coag (PPP)on 2024 INR Coag (PPP) [Relative time] 1.1 {INR} Normal 0.9-1.3 [facility] Comment on above: Order Comment: Ashu garcia Type: BLOOD SPECIMENOrdering Facility: [facility] Address: [address] [place] [address] Result Comment: Supriya min K Antagonist (VKA) Therapeutic Range: INR 2 to 3 (Target INR of 2.5)Note: For patients treated with VKA drugs, such as warfarin, the [place] [employer] 2012 Guideline recommends a therapeutic INR range of 2 to 3 (target INR of 2.5). This recommendation includes high-risk patients with antiphospholipid syndrome with previous arterial or venous thromboembolism, current-generation mechanical or bioprosthetic aortic heart valve replacement.Note: Patients with mechanical aortic valve replacement and additional risk factors for thromboembolic events (atrial fibrillation, previous thromboembolism, LV dysfunction, hypercoagulable conditions) or an older generation mechanical AVR (i.e., ball in-Cage) or any mechanical MVR should have a INR therapeutic range of 2.5 to 3.5 (target INR of 3).Betty GH, et al. Chest 2012, 141:7S-47SNishimura RA, et al. [facility] 2017, 70: 252-289 Performed By: #### 3 4528-0, 62631-8 ####[facility]ATORYCLIA [id number] [place] [address] [place] PT Coag (PPP) [Time] 11.6 s Normal 9.7-13.0 [facility] Comment on above: Order Comment: Speci men Type: BLOOD SPECIMENOrdering Facility: [facility] Address: [address] [place] [address] Performed By: #### 3 4528-0, 35901-3 ####[facility]ATORYCLIA [id number] [place] [id number] [place] Phosphate SerPl-mCncon 11-03 Phosphate [Mass/Vol] 4.3 mg/dL Normal 2.7-4.8 [facility] Comment on above: Order Comment: Speci men Type: BLOOD SPECIMENOrdering Facility: [facility] Address: [address] [place] [address] Performed By: #### L IPNF, 71210-2, 3016-3, 2777-1 ####[facility]ORATORYCLIA [id number] [place] [address] [place] Prealbumin [Mass/Vol]on 10-07 Prealbumin Nephelometry [Mass/Vol] 13 mg/dL Low 17-36 [facility] Comment on above: Order Comment: Speci men Type: BLOOD SPECIMENOrdering Facility: [facility] Address: [address] [place] [address] Performed By: #### 3 3959-8, 73047-3, 42412-4 ####[facility]ATORYCLIA [id number] [place] [id number] [place] Procalcitonin SerPl-mCncon 0 11-03-2024 Procalcitonin [Mass/Vol] ng/mL Normal <0.09 [facility] Comment on above: Order Comment: Speci men Type: BLOOD SPECIMENOrdering Facility: [facility] Address: [address] [place] [address] Result Comment: For a guided interpretation of test results, please visit the Change in Procalcitonin Calculator, [email or web address]. Performed By: #### 3 3959-8, 58176-8, 15133-4 ####[facility]ORATORYCLIA [id number] [address] STREPTOCOCCUS PNEUMONIAE ANT IGEN URINEon 11-03-2024 STREPTOCOCCUS PNEUMONIAE ANTIGEN URINE Normal [facility] Comment on above: Performed By: #### S PNAG ####[facility]ATORYCLIA [id number] [address] THERAPY NTon 11-03-2024 THERAPY NT Normal [facility] TSH SerPl-aCncon 11-03-2024 TSH Qn 2.420 m[IU]/L Normal 0.270-4.200 [facility] Comment on above: Order Comment: Speci men Type: BLOOD SPECIMENOrdering Facility: [facility] Address: [address] [place] [address] Performed By: #### L IPNF, 20089-9, 3016-3, 2777-1 ####[facility]ATORYCLIA [id number] [address] aPTT PPPon 11-03-2024 aPTT Coag (PPP) [Time] 23.9 s Normal 23.0-32.4 [facility] Comment on above: Order Comment: Speci men Type: BLOOD SPECIMENOrdering Facility: [facility] Address: [address] [place] [address] Performed By: #### 3 4528-0, 22842-6 ####[facility]ATORYCLIA [id number] [address] [place] ALLIED HEALTHon 11-02-2024 ALLIED HEALTH Normal [facility] Bacteria Bld Culton 11-03-19 25 Bacteria identified Cx Nom (Bld) CULTURE, BLOOD: No growth 5 days Normal [facility] Comment on above: Performed By: #### 6 00-7 ####[facility]ATORYCLIA [id number] [address] Bacteria identified Cx Nom (Bld) CULTURE, BLOOD: No growth 5 days Normal [facility] Comment on above: Performed By: #### 6 00-7 ####[facility]ATORYCLIA [id number] [address] Bacteria Ur Culton 5 Bacteria identified Cx Nom (U) CULTURE, URINE: 50,000-<100,000 CFU/mL Three or more organisms, no one type predominant, suggesting contamination during collection. Recollect if clinically indicated. Abnormal [facility] Comment on above: Performed By: #### 6 30-4, 40223-7 ####[facility]ATORYCLIA [id number] [address] CBC W Auto Differential pane l (Bld)on 11-02-2024 Basophils (Bld) [#/Vol] 0.07 10*3/uL Normal <0.11 [facility] Comment on above: Order Comment: Speci men Type: BLOOD SPECIMENOrdering Facility: [facility] Address: [address] [place] [address] Performed By: #### 5 7021-8 ####[facility]ORATORYCLIA [id number] [address] Basophils/100 WBC (Bld) 0.6 % Normal A [facility] Comment on above: Order Comment: Speci men Type: BLOOD SPECIMENOrdering Facility: [facility] [facility] Address: [address] [place] [address] Performed By: #### 5 7021-8 ####[facility]ORATORYCLIA [id number] [address] Differential cell count method Nom (Bld) Auto Normal [facility] Comment on above: Order Comment: Speci men Type: BLOOD SPECIMENOrdering Facility: [facility] Address: [address] [place] [address] Performed By: #### 5 7021-8 ####[facility]ORATORYCLIA [id number] [address] Eosinophils (Bld) [#/Vol] 0.78 10*3/uL High <0.46 [facility] Comment on above: Order Comment: Speci men Type: BLOOD SPECIMENOrdering Facility: [facility] Address: [address] [place] [address] Performed By: #### 5 7021-8 ####[facility]ORATORYCLIA [id number] [address] Eosinophils/100 WBC (Bld) 6.5 % Normal [facility] Comment on above: Order Comment: Speci men Type: BLOOD SPECIMENOrdering Facility: [facility] Address: [address] [place] [address] Performed By: #### 5 7021-8 ####[facility]ORATORYCLIA [id number] [address] Erythrocyte distribution width (RBC) [Ratio] 13.8 % Normal 11.5-15.0 [facility] Comment on above: Order Comment: Speci men Type: BLOOD SPECIMENOrdering Facility: [facility] Address: [address] [place] [address] Performed By: #### 5 7021-8 ####[facility]ATORYCLIA [id number] [address] Hematocrit (Bld) [Volume fraction] 40.6 % Normal 36.0-46.0 [facility] Comment on above: Order Comment: Speci men Type: BLOOD SPECIMENOrdering Facility: [facility] Address: [address] [place] [address] Performed By: #### 5 7021-8 ####[facility]ATORYCLIA [id number] [address] [place] Hemoglobin (Bld) [Mass/Vol] 13.1 g/dL Normal 11.5-15.5 [facility] Comment on above: Order Comment: Speci men Type: BLOOD SPECIMENOrdering Facility: [facility] Address: [address] [place] [address] Performed By: #### 5 7021-8 ####[facility]ORATORYCLIA [id number] [place] [address] [place] Immature granulocytes (Bld) [#/Vol] 0.04 10*3/uL Normal <0.10 [facility] Comment on above: Order Comment: Speci men Type: BLOOD SPECIMENOrdering Facility: [facility] Address: [address] [place] [address] Performed By: #### 5 7021-8 ####[facility]ATORYCLIA [id number] [address] [place] Immature granulocytes/100 WBC (Bld) 0.3 % Normal [facility] Comment on above: Order Comment: Speci men Type: BLOOD SPECIMENOrdering Facility: [facility] Address: [address] [place] [address] Performed By: #### 5 7021-8 ####[facility]ORATORYCLIA [id number] [place] [address] [place] Lymphocytes (Bld) [#/Vol] 3.37 10*3/uL Normal 1.00-4.00 [facility] Comment on above: Order Comment: Speci men Type: BLOOD SPECIMENOrdering Facility: [facility] Address: [address] [place] [address] Performed By: #### 5 7021-8 ####[facility]ORATORYCLIA [id number] [place] [address] [place] Lymphocytes/100 WBC (Bld) 28.2 % Normal [facility] Comment on above: Order Comment: Speci men Type: BLOOD SPECIMENOrdering Facility: [facility] Address: [address] [place] [address] Performed By: #### 5 7021-8 ####[facility]ORATORYCLIA [id number] [address] MCH (RBC) [Entitic mass] 30.4 pg Normal 26.0-34.0 [facility] Comment on above: Order Comment: Speci men Type: BLOOD SPECIMENOrdering Facility: [facility] Address: [address] [place] [address] Performed By: #### 5 7021-8 ####[facility]ATORYCLIA [id number] [address] [place] MCHC (RBC) [Mass/Vol] 32.3 g/dL Normal 30.5-36.0 [facility] Comment on above: Order Comment: Speci men Type: BLOOD SPECIMENOrdering Facility: [facility] Address: [address] [place] [address] Performed By: #### 5 7021-8 ####[facility]ATORYCLIA [id number] [address] MCV (RBC) [Entitic vol] 94.2 fL Normal 80.0-100.0 [facility] Comment on above: Order Comment: Speci men Type: BLOOD SPECIMENOrdering Facility: [facility] Address: [address] [place] [address] Performed By: #### 5 7021-8 ####[facility]ATORYCLIA [id number] [address] Monocytes (Bld) [#/Vol] 0.85 10*3/uL Normal <0.87 [facility] Comment on above: Order Comment: Speci men Type: BLOOD SPECIMENOrdering Facility: [facility] Address: [address] [place] [address] Performed By: #### 5 7021-8 ####[facility]ATORYCLIA [id number] [address] Monocytes/100 WBC (Bld) 7.1 % Normal [facility] Comment on above: Order Comment: Speci men Type: BLOOD SPECIMENOrdering Facility: [facility] Address: [address] [place] [address] Performed By: #### 5 7021-8 ####[facility]ORATORYCLIA [id number] [place] [address] [place] Neutrophils (Bld) [#/Vol] 6.83 10*3/uL Normal 1.45-7.50 [facility] Comment on above: Order Comment: Speci men Type: BLOOD SPECIMENOrdering Facility: [facility] Address: [address] [place] [address] Performed By: #### 5 7021-8 ####[facility]ATORYCLIA [id number] [address] [place] Neutrophils/100 WBC (Bld) 57.3 % Normal [facility] Comment on above: Order Comment: Speci men Type: BLOOD SPECIMENOrdering Facility: [facility] Address: [address] [place] [address] Performed By: #### 5 7021-8 ####[facility]ATORYCLIA [id number] [address] [place] Nucleated RBC (Bld) [#/Vol] 0.02 10*3/uL High <0.01 [facility] Comment on above: Order Comment: Speci men Type: BLOOD SPECIMENOrdering Facility: [facility] Address: [address] [place] [address] Performed By: #### 5 7021-8 ####[facility]ATORYCLIA [id number] [address] [place] Nucleated RBC/100 WBC (Bld) [Ratio] 0.2 /100 WBC Normal [facility] Comment on above: Order Comment: Speci men Type: BLOOD SPECIMENOrdering Facility: [facility] Address: [address] [place] [address] Performed By: #### 5 7021-8 ####[facility]ORATORYCLIA [id number] [address] [place] Platelet mean volume (Bld) [Entitic vol] 9.8 fL Normal 9.0-12.7 [facility] Comment on above: Order Comment: Speci men Type: BLOOD SPECIMENOrdering Facility: [facility] Address: [address] [place] [address] Performed By: #### 5 7021-8 ####[facility]ATORYCLIA [id number] [address] Platelets (Bld) [#/Vol] 321 10*3/uL Normal 150-400 [facility] Comment on above: Order Comment: Speci men Type: BLOOD SPECIMENOrdering Facility: [facility] Address: [address] [place] [address] Performed By: #### 5 7021-8 ####[facility]ATORYCLIA [id number] [address] [place] RBC (Bld) [#/Vol] 4.31 10*6/uL Normal 3.90-5.20 [facility] Comment on above: Order Comment: Speci men Type: BLOOD SPECIMENOrdering Facility: [facility] Address: [address] [place] [address] Performed By: #### 5 7021-8 ####[facility]ORATORYCLIA [id number] [address] OF [facility] WBC (Bld) [#/Vol] 11.94 10*3/uL High 3.70-11.00 [facility] Comment on above: Order Comment: Speci men Type: BLOOD SPECIMENOrdering Facility: [facility] Address: [address] [place] [address] Performed By: #### 5 7021-8 ####[facility]ATORYCLIA [id number] [address] [place] ABD/PEL W IVCONon 025 CT ABD/PEL W IVCON Normal [facility] CTA CHEST (NON GATED) W IVCO N PEon 11-02-2024 CTA CHEST (NON GATED) W IVCON PE Normal [facility] Comprehensive metabolic 2000 panelon 11-02-2024 Albumin [Mass/Vol] 3.2 g/dL Low 3.9-4.9 [facility] Comment on above: Order Comment: Speci men Type: BLOOD SPECIMENOrdering Facility: [facility] Address: [address] [place] [address] Performed By: #### 3 3762-6, 3040-3, 85387-2, 80096-7 ####[facility]ATORYCLIA [id number] [place], [place] [id number] [place] [address] [place] [facility] ALP [Catalytic activity/Vol] 94 U/L Normal 34-123 [facility] Comment on above: Order Comment: Speci men Type: BLOOD SPECIMENOrdering Facility: [facility] Address: [address] [place] [address] Performed By: #### 3 3762-6, 3040-3, 96187-1, ####[facility]CLIA [id number] [address] STATES OF [facility] ALT With P-5'-P [Catalytic activity/Vol] 7 U/L Normal 7-38 [facility] Comment on above: Order Comment: Speci men Type: BLOOD SPECIMENOrdering Facility: [facility] Address: [address] [place] [address] Performed By: #### 3 3762-6, 3040-3, 25481-7, 22644-1 ####[facility]ITALCLIA [id number] [address] STATES OF [facility] Anion gap [Moles/Vol] 13 mmol/L Normal 8-15 [facility] Comment on above: Order Comment: Speci men Type: BLOOD SPECIMENOrdering Facility: [facility] Address: [address] [place] [address] Performed By: #### 3 3762-6, 3040-3, 31325-6, 74092-9 ####[facility]ATORYCLIA [id number] [address] STATES OF [facility] AST With P-5'-P [Catalytic activity/Vol] 13 U/L Normal 13-35 [facility] Comment on above: Order Comment: Speci men Type: BLOOD SPECIMENOrdering Facility: [facility] Address: [address] [place] [address] Performed By: #### 3 3762-6, 3040-3, 81508-1, ####[facility]ORATORYCLIA [id number] [place] [address] [place] Bilirubin [Mass/Vol] 0.4 mg/dL Normal 0.2-1.3 [facility] Comment on above: Order Comment: Speci men Type: BLOOD SPECIMENOrdering Facility: [facility] Address: [address] [place] [address] Performed By: #### 3 3762-6, 3040-3, 07710-9, ####[facility]ATORYCLIA [id number] [place] [address] [place] Calcium [Mass/Vol] 8.8 mg/dL Normal 8.5-10.2 [facility] Comment on above: Order Comment: Speci men Type: BLOOD SPECIMENOrdering Facility: [facility] Address: [address] [place] [address] Performed By: #### 3 3762-6, 3040-3, 87637-6, ####[facility]ATORYCLIA [id number] [place] [address] [place] Chloride [Moles/Vol] 105 mmol/L Normal 98-107 [facility] Comment on above: Order Comment: Speci men Type: BLOOD SPECIMENOrdering Facility: [facility] Address: [address] [place] [address] Performed By: #### 3 3762-6, 3040-3, 39603-7, 06055-6 ####[facility]ATORYCLIA [id number] [place] [address] [place] CO2 [Moles/Vol] 21 mmol/L Low 22-30 [facility] Comment on above: Order Comment: Speci men Type: BLOOD SPECIMENOrdering Facility: [facility] Address: [address] [place] [address] Performed By: #### 3 3762-6, 3040-3, 73301-4, 52047-1 ####[facility]ITALCLIA [id number] [place] [address] [place] [facility] Creatinine [Mass/Vol] 1.06 mg/dL High 0.58-0.96 [facility] Comment on above: Order Comment: Speci jose Type: BLOOD SPECIMENOrdering Facility: [facility] Address: [address] [place] [address] Performed By: #### 3 3762-6, 3040-3, 69650-8, 45602-4 ####[facility] HOSPITALIA [id number] [place] [id number] [facility] Creatinine and Glomerular filtration rate.predicted panel (S/P/Bld) 54 mL/min/1.73m??? Low >=60 [facility] Comment on above: Order Comment: Ashu garcia Type: BLOOD SPECIMENOrdering Facility: [facility] Address: [address] [place] [address] Result Comment: Whitney mated Glomerular Filtration Rate (eGFR) is calculated using the 2020 CKD-EPI creatinine equation. This equation utilizes serum creatinine, sex, and age as parameters. The creatinine assay has traceable calibration to isotope dilution-mass spectrometry. Refer to KDIGO guidelines for clinical interpretation. In patients with unstable renal function, e.g. those with acute kidney injury, the eGFR may not accurately reflect actual GFR. Performed By: #### 3 3762-6, 3040-3, 88017-3, 05852-3 ####[facility]ORATORYCLIA [id number] [place] [id number] [place] [facility] Glucose [Mass/Vol] 145 mg/dL High 74-99 [facility] Comment on above: Order Comment: Speci men Type: BLOOD SPECIMENOrdering Facility: [facility] Address: [address] [place] [address] Result Comment: The [place] [employer] (ADA) provides guidance for cutoff values for fasting glucose and random glucose. The ADA defines fasting as no caloric intake for at least 8 hours. Fasting plasma glucose results between 100 to 125 mg/dL indicate increased risk for diabetes (prediabetes).Fasting plasma glucose results greater than or equal to 126 mg/dL meet the criteria for diagnosis of diabetes. In the absence of unequivocal hyperglycemia, results should be confirmed by repeat testing. In a patient with classic symptoms of hyperglycemia or hyperglycemic crisis, random plasma glucose results greater than or equal to 200 mg/dL meet the criteria for diagnosis of diabetes.Reference: Standards of Medical Care in Diabetes 2016, [place] [employer]. Diabetes Care. 2016.39(Suppl 1). Performed By: #### 3 3762-6, 3040-3, 19229-2, 54332-3 ####[facility]ORATORYCLIA [id number] [place] [address] [place] Potassium [Moles/Vol] 4.6 mmol/L Normal 3.7-5.1 [facility] Comment on above: Order Comment: Ashu garcia Type: BLOOD SPECIMENOrdering Facility: [facility] Address: [address] [place] [address] Performed By: #### 3 3762-6, 3040-3, 45199-0, 09175-3 ####[facility]ORATORYCLIA [id number] [place] [address] [place] Protein [Mass/Vol] 7.1 g/dL Normal 6.3-8.0 [facility] Comment on above: Order Comment: Ashu garcia Type: BLOOD SPECIMENOrdering Facility: [facility] Address: [address] [place] [address] Performed By: #### 3 3762-6, 3040-3, 16134-2, 72385-7 ####[facility]ORATORYCLIA [id number] [place] [address] [place] Sodium [Moles/Vol] 139 mmol/L Normal 136-144 [facility] Comment on above: Order Comment: Ashu garcia Type: BLOOD SPECIMENOrdering Facility: [facility] Address: [address] [place] [address] Performed By: #### 3 3762-6, 3040-3, 35751-1, 81364-2 ####[facility]ORATORYCLIA [id number] [facility] [address] [address] Urea nitrogen [Mass/Vol] 22 mg/dL High 7-21 [facility] Comment on above: Order Comment: Speci men Type: BLOOD SPECIMENOrdering Facility: [facility] Address: [facility] [place] [address] Performed By: #### 3 3762-6, 3040-3, 92767-4, 98784-1 ####[facility]ORATORYCLIA [id number] [address] ED NOTEon 11-02-2024 ED NOTE HNO ID: [id number] Author: PILI MOURA RN Service: ? Author Type: Registered Nurse Type: ED Notes Filed: 11/02/2024 22:50 Note Text: Bed: 14-ED Expected date: Expected time: Means of arrival: Comments: Room 47 Normal [facility] ED NOTE HNO ID: [id number] Author: DAWOOD SUTTON RN Service: Emergency Medicine Author Type: Registered Nurse Type: ED Notes Filed: 11/02/2024 20:36 Note Text: Patient's linens changed and patient positioned for comfort. [facility] ED NOTE HNO ID: [id number] Author: DAWOOD SUTTON RN Service: Emergency Medicine Author Type: Registered Nurse Type: ED Notes Filed: 11/02/2024 17:50 Note Text: CT notified that patient is ready for exam. [facility] ED NOTE HNO ID: [id number] Author: DAWOOD SUTTON RN Service: Emergency Medicine Author Type: Registered Nurse Type: ED Notes Filed: 11/02/2024 17:08 Note Text: RT notified that patient is ready for Duoneb. [facility] ED NOTE HNO ID: [id number] Author: KALYANI SHARPE RN Service: ? Author Type: Registered Nurse Type: ED Notes Filed: 11/02/2024 16:07 Note Text: Bed: 47-ED Expected date: Expected time: Means of arrival: Comments: [facility] hgb Normal [facility] ED PROV NOTEon 11-02-2024 ED PROV NOTE Normal [facility] HIGH SENSITIVITY TROPONIN T (INITIAL)on 11-02-2024 Troponin T.cardiac High sensitivity method [Mass/Vol] 12 ng/L High <12 [facility] Comment on above: Order Comment: Speci men Type: BLOOD SPECIMENOrdering Facility: [facility] Address: [address] [place] [address] Performed By: #### L [id number] ####[facility]ATORYCLIA [id number] [address] HIGH SENSITIVITY TROPONIN T (SECOND)on 11-02-2024 Troponin T.cardiac High sensitivity method [Mass/Vol] 10 ng/L Normal <12 [facility] Comment on above: Order Comment: Speci men Type: BLOOD SPECIMENOrdering Facility: [facility] Address: [address] [place] [address] Performed By: #### L [id number] ####[facility]ATORYCLIA [id number] [address] HIGH SENSITIVITY TROPONIN T (THIRD) 3 HRS AFTER INITIALon 11-02-2024 Troponin T.cardiac High sensitivity method [Mass/Vol] 9 ng/L Normal <12 [facility] Comment on above: Order Comment: Speci men Type: BLOOD SPECIMENOrdering Facility: [facility] Address: [address] [place] [address] Performed By: #### L [id number] ####[facility]ORATORYCLIA [id number] [address] [place] Legionella Ag Ur Qlon 2024 Legionella sp Ag Ql (U) Negative Normal Negative A [facility] Comment on above: Order Comment: Speci men Type: URINE SPECIMENOrdering Facility: [facility] Address: [address] [place] [address] Result Comment: Pres umptive negative for L. pneumophila serogroup 1 antigen in urine, suggesting no recent or current infection. Infection due to Legionella cannot be ruled out since other serogroups and species may cause disease, antigen may not be present in urine in early infection, and the level of antigen present in the urine may be below the detection limit of the test. Performed By: #### 3 2781-7 ####[facility]ORATORYCLIA [id number] [place] [address] [place] Lipase SerPl-cCncon 11-03-19 25 Lipase [Catalytic activity/Vol] 31 U/L Normal 16-61 [facility] Comment on above: Order Comment: Speci men Type: BLOOD SPECIMENOrdering Facility: [facility] Address: [address] [place] [address] Performed By: #### 3 3762-6, 3040-3, 32909-9, 34304-8 ####[facility]ATORYCLIA [id number] [place] [address] [place] [facility]-02 Magnesium [Mass/Vol] 1.5 mg/dL Low 1.7-2.3 [facility] Comment on above: Order Comment: Speci men Type: BLOOD SPECIMENOrdering Facility: [facility] Address: [address] [place] [address] Performed By: #### 3 3762-6, 3040-3, 40850-2, 60700-2 ####[facility]ITALCLIA [id number] [address] [facility] Barbourl-ncon 11-02 Natriuretic peptide.B prohormone N-Terminal [Mass/Vol] 8202 pg/mL High <450 [facility] Comment on above: Order Comment: Speci men Type: BLOOD SPECIMENOrdering Facility: [facility] Address: [address] [place] [address] Performed By: #### 3 3762-6, 3040-3, 73276-9, 28532-5 ####[facility]ATORYCLIA [id number] [address] [place] Urinalysis complete panel (U )on 11-02-2024 Bacteria LM.HPF (Urine sed) [#/Area] Few Abnormal None Seen [facility] Comment on above: Order Comment: Speci men Type: URINE SPECIMENOrdering Facility: [facility] Address: [address] [place], [place] [address] Performed By: #### 6 30-4, 39905-8 ####[facility]ORATORYCLIA [id number] [address] Bilirubin Ql (U) Negative Normal Negative [facility] Comment on above: Order Comment: Speci men Type: URINE SPECIMENOrdering Facility: [facility] Address: [address] [place] [address] Performed By: #### 6 30-4, 73530-7 ####[facility]ATORYCLIA [id number] [address] Clarity (Unsp spec) Clear Normal Clear [facility] Comment on above: Order Comment: Speci men Type: URINE SPECIMENOrdering Facility: [facility] Address: [address] [place] [address] Performed By: #### 6 30-4, 83231-3 ####[facility]ATORYCLIA [id number] [address] Color (U) Light Yellow Normal yellow [facility] Comment on above: Order Comment: Speci men Type: URINE SPECIMENOrdering Facility: [facility] Address: [address] [place] [address] Performed By: #### 6 30-4, 01587-4 ####[facility]ATORYCLIA [id number] [address] Epithelial cells LM.HPF (Urine sed) [#/Area] Few Normal [facility] Comment on above: Order Comment: Speci men Type: URINE SPECIMENOrdering Facility: [facility] Address: [address] [place] [address] Performed By: #### 6 30-4, 72814-5 ####[facility]ATORYCLIA [id number] [address] Glucose Test strip (U) [Mass/Vol] Negative Normal Trace, Negative [facility] Comment on above: Order Comment: Speci men Type: URINE SPECIMENOrdering Facility: [facility] Address: [address] [place] [address] Performed By: #### 6 30-4, 07024-0 ####[facility]ATORYCLIA [id number] [place] [address] [place] Hemoglobin Ql (U) Negative Normal Negative, Trace [facility] Comment on above: Order Comment: Speci men Type: URINE SPECIMENOrdering Facility: [facility] Address: [address] [place] [address] Performed By: #### 6 30-4, 86841-4 ####[facility]ATORYCLIA [id number] [place] [address] [place] Ketones Ql (U) Negative Normal Negative, Trace [facility] Comment on above: Order Comment: Speci men Type: URINE SPECIMENOrdering Facility: [facility] Address: [address] [place] [address] Performed By: #### 6 30-4, 67888-9 ####[facility]ATORYCLIA [id number] [address] Leukocyte esterase Test strip Ql (U) 500 [place]/uL Abnormal Negative, 25 [place]/uL [facility] Comment on above: Order Comment: Speci men Type: URINE SPECIMENOrdering Facility: [facility] Address: [address] [place] [address] Performed By: #### 6 30-4, 22971-4 ####[facility]ATORYCLIA [id number] [address] [place] Nitrite Ql (U) 2+ Abnormal Negative [facility] Comment on above: Order Comment: Speci men Type: URINE SPECIMENOrdering Facility: [facility] Address: [address] [place] [address] Performed By: #### 6 30-4, 33914-8 ####[facility]ATORYCLIA [id number] [address] [place] pH (U) 5.5 [pH] Normal 5.0-8.0 [facility] Comment on above: Order Comment: Speci men Type: URINE SPECIMENOrdering Facility: [facility] Address: [address] [place] [address] Performed By: #### 6 30-, 95711-8 ####[facility]ATORYCLIA [id number] [address] Protein (U) [Mass/Vol] Negative Normal Trace , Negative [facility] Comment on above: Order Comment: Speci men Type: URINE SPECIMENOrdering Facility: [facility] Address: [address] [place] [address] Performed By: #### 6 30, 28063-8 ####[facility]ATORYCLIA [id number] [address] RBC LM.HPF (Urine sed) [#/Area] 3-5 /HPF Abnormal 0-3 /HPF [facility] Comment on above: Order Comment: Speci men Type: URINE SPECIMENOrdering Facility: [facility] Address: [address] [place] [address] Performed By: #### 6 30-, 44957-0 ####[facility] [id number] [address] Specific gravity (U) [Rel density] 1.036 High 1.005-1.030 [facility] Comment on above: Order Comment: Speci men Type: URINE SPECIMENOrdering Facility: [facility] Address: [address] [place] [address] Performed By: #### 6 30-, 36893-7 ####[facility]ORATORYCLIA [id number] [address] Urobilinogen Ql (U) Normal Normal Normal [facility] Comment on above: Order Comment: Speci men Type: URINE SPECIMENOrdering Facility: [facility] Address: [address] [place] [address] Performed By: #### 6 30-, 11398-3 ####[facility]ORATORYCLIA [id number] [address] WBC LM.HPF (Urine sed) [#/Area] 11-25 /HPF Abnormal 0-5 /HPF [facility] Comment on above: Order Comment: Speci men Type: URINE SPECIMENOrdering Facility: [facility] Address: [address] [place] [address] Performed By: #### 6 30-4, 47181-8 ####[facility]ORATORYCLIA [id number] [place] [address] [facility] KEPPRA (LEVETIRACETAM)on KEPPRA 28.8 ug/mL Normal 10.0-40.0 [place] Comment on above: Order Comment: 304.1 Result Comment: Perf ormed at: [facility] [address] [id number] Director Employee Safety And Health: Yudy Owen MD, Phone: [phone] Performed By: #### L 100.0500, L500.2500 #### [facility] [address] [facility] [place], [address] LevetiracetamOrdered By: Pet noman Phipps on 09-25-2024 Levetiracetam (Keppra) Level 28.8 ug/mL 10.0-40.0 [place] Comment on above: Performed at: [facility] [address] [id number] Director: Yudy Owen MD, Phone: [phone] levETIRAcetam [Mass/Vol] 28.8 ug/mL 10.0-40.0 [place] Comment on above: Performed at: [employer] [address] [id number] Director: Yudy Owen MD, Phone: [phone] CBC W Auto Differential pane l (Bld)on 09-22-2024 Basophils (Bld) [#/Vol] 0.10 10*3/uL Normal <0.11 [facility] Comment on above: Order Comment: Speci men Type: BLOOD SPECIMENOrdering Facility: [facility] Address: [address] [place] [address] [facility] Performed By: #### 5 7021-8 ####[facility] LABORATORYCLIA [id number] [address] Basophils/100 WBC (Bld) 0.8 % Normal [facility] Comment on above: Order Comment: Speci men Type: BLOOD SPECIMENOrdering Facility: [facility] Address: [address] [place] [address] Performed By: #### 5 7021-8 ####[facility]ATORYCLIA [id number] [address] OF [facility] Differential cell count method Nom (Bld) Auto Normal [facility] Comment on above: Order Comment: Speci men Type: BLOOD SPECIMENOrdering Facility: [facility] Address: [address] [place] [address] Performed By: #### 5 7021-8 ####[facility]ORATORYCLIA [id number] [address] OF [facility] Eosinophils (Bld) [#/Vol] 0.97 10*3/uL High <0.46 [facility] Comment on above: Order Comment: Speci men Type: BLOOD SPECIMENOrdering Facility: [facility] Address: [address] [place] [address] Performed By: #### 5 7021-8 ####[facility]ATORYCLIA [id number] [address] Eosinophils/100 WBC (Bld) 7.8 % Normal [facility] Comment on above: Order Comment: Speci men Type: BLOOD SPECIMENOrdering Facility: [facility] Address: [address] [place] [address] Performed By: #### 5 7021-8 ####[facility]ORYCLIA [id number] [address] Erythrocyte distribution width (RBC) [Ratio] 13.6 % Normal 11.5-15.0 [facility] Comment on above: Order Comment: Speci men Type: BLOOD SPECIMENOrdering Facility: [facility] Address: [address] [place] [address] Performed By: #### 5 7021-8 ####[facility]ORATORYCLIA [id number] [address] [place] Hematocrit (Bld) [Volume fraction] 47.2 % High 36.0-46.0 [facility] Comment on above: Order Comment: Speci men Type: BLOOD SPECIMENOrdering Facility: [facility] Address: [address] [place] [address] Performed By: #### 5 7021-8 ####[facility]ATORYCLIA [id number] [address] [place] Hemoglobin (Bld) [Mass/Vol] 15.3 g/dL Normal 11.5-15.5 [facility] Comment on above: Order Comment: Speci men Type: BLOOD SPECIMENOrdering Facility: [facility] Address: [address] [place] [address] Performed By: #### 5 7021-8 ####[facility]ATORYCLIA [id number] [address] [place] Immature granulocytes (Bld) [#/Vol] 0.03 10*3/uL Normal <0.10 [facility] Comment on above: Order Comment: Speci men Type: BLOOD SPECIMENOrdering Facility: [facility] Address: [address] [place] [address] Performed By: #### 5 7021-8 ####[facility]ATORYCLIA [id number] [address] [place] Immature granulocytes/100 WBC (Bld) 0.2 % Normal [facility] Comment on above: Order Comment: Speci men Type: BLOOD SPECIMENOrdering Facility: [facility] Address: [address] [place] [address] Performed By: #### 5 7021-8 ####[facility]ORATORYCLIA [id number] [place] [address] [place] Lymphocytes (Bld) [#/Vol] 4.81 10*3/uL High 1.00-4.00 [facility] Comment on above: Order Comment: Speci men Type: BLOOD SPECIMENOrdering Facility: [facility] Address: [address] [place] [address] Performed By: #### 5 7021-8 ####[facility]ATORYCLIA [id number] [address] STATES [facility] Lymphocytes/100 WBC (Bld) 38.7 % Normal [facility] Comment on above: Order Comment: Speci men Type: BLOOD SPECIMENOrdering Facility: [facility] Address: [address] [place] [address] Performed By: #### 5 7021-8 ####[facility]ATORYCLIA [id number] [address] [place] MCH (RBC) [Entitic mass] 30.7 pg Normal 26.0-34.0 [facility] Comment on above: Order Comment: Speci men Type: BLOOD SPECIMENOrdering Facility: [facility] Address: [address] [place] [address] Performed By: #### 5 7021-8 ####[facility]ATORYCLIA [id number] [address] STATES [facility] MCHC (RBC) [Mass/Vol] 32.4 g/dL Normal 30.5-36.0 [facility] Comment on above: Order Comment: Speci men Type: BLOOD SPECIMENOrdering Facility: [facility] Address: [address] [place] [address] Performed By: #### 5 7021-8 ####[facility]ATORYCLIA [id number] [address] [place] MCV (RBC) [Entitic vol] 94.8 fL Normal 80.0-100.0 [facility] Comment on above: Order Comment: Speci men Type: BLOOD SPECIMENOrdering Facility: [facility] Address: [address] [place] [address] Performed By: #### 5 7021-8 ####[facility]ORATORYCLIA [id number] [place] [address] [place] Monocytes (Bld) [#/Vol] 0.90 10*3/uL High <0.87 [facility] Comment on above: Order Comment: Speci men Type: BLOOD SPECIMENOrdering Facility: [facility] Address: [address] [place] [address] Performed By: #### 5 7021-8 ####[facility] LABORATORYCLIA [id number] [place] [address] [place] Monocytes/100 WBC (Bld) 7.2 % Normal [facility] Comment on above: Order Comment: Speci men Type: BLOOD SPECIMENOrdering Facility: [facility] Address: [address] [place] [address] Performed By: #### 5 7021-8 ####[facility] [facility]ORATORYCLIA [id number] [address] [place] Neutrophils (Bld) [#/Vol] 5.61 10*3/uL Normal 1.45-7.50 [facility] Comment on above: Order Comment: Speci men Type: BLOOD SPECIMENOrdering Facility: [facility] Address: [address] [place] [address] Performed By: #### 5 7021-8 ####[facility]ATORYCLIA [id number] [address] [place] Neutrophils/100 WBC (Bld) 45.3 % Normal [facility] Comment on above: Order Comment: Speci men Type: BLOOD SPECIMENOrdering Facility: [facility] Address: [address] [place] [address] Performed By: #### 5 7021-8 ####[facility]ORATORYCLIA [id number] [place] [address] [place] Nucleated RBC (Bld) [#/Vol] 10*3/uL Normal <0.01 [facility] Comment on above: Order Comment: Speci men Type: BLOOD SPECIMENOrdering Facility: [facility] Address: [address] [place] [address] Performed By: #### 5 7021-8 ####[facility] [facility]ORATORYCLIA [id number] [place] [address] [place] Nucleated RBC/100 WBC (Bld) [Ratio] 0.0 /100 WBC Normal [facility] Comment on above: Order Comment: Speci men Type: BLOOD SPECIMENOrdering Facility: [facility] Address: [address] [place] [address] Performed By: #### 5 7021-8 ####[facility]ORATORYCLIA [id number] [place] [address] [place] Platelet mean volume (Bld) [Entitic vol] 9.3 fL Normal 9.0-12.7 [facility] Comment on above: Order Comment: Speci men Type: BLOOD SPECIMENOrdering Facility: [facility] Address: [address] [place] [address] Performed By: #### 5 7021-8 ####[facility]ORATORYCLIA [id number] [address] [place] Platelets (Bld) [#/Vol] 340 10*3/uL Normal 150-400 [facility] Comment on above: Order Comment: Speci men Type: BLOOD SPECIMENOrdering Facility: [facility] Address: [address] [place] [address] Performed By: #### 5 7021-8 ####[facility]ORATORYCLIA [id number] [place] [address] [place] RBC (Bld) [#/Vol] 4.98 10*6/uL Normal 3.90-5.20 [facility] Comment on above: Order Comment: Speci men Type: BLOOD SPECIMENOrdering Facility: [facility] Address: [address] [place] [address] Performed By: #### 5 7021-8 ####[facility]ORATORYCLIA [id number] [address] [place] WBC (Bld) [#/Vol] 12.42 10*3/uL High 3.70-11.00 [facility] Comment on above: Order Comment: Speci men Type: BLOOD SPECIMENOrdering Facility: [facility] Address: [address] [place] [address] Performed By: #### 5 7021-8 ####[facility]ORATORYCLIA [id number] [place] [id number] [facility] Comprehensive metabolic 2000 panelon 09-22-2024 Albumin [Mass/Vol] 3.8 g/dL Low 3.9-4.9 [facility] Comment on above: Order Comment: Speci men Type: BLOOD SPECIMENOrdering Facility: [facility] Address: [address] [place] [address] Performed By: #### 2 4323-8, 51543-8 ####[facility]ORATORYCLIA [id number] [address] OF [facility] ALP [Catalytic activity/Vol] 113 U/L Normal 34-123 [facility] Comment on above: Order Comment: Speci men Type: BLOOD SPECIMENOrdering Facility: [facility] Address: [address] [place] [address] Performed By: #### 2 4323-8, 88356-0 ####[facility]ATORYCLIA [id number] [address] ALT With P-5'-P [Catalytic activity/Vol] Normal [facility] Comment on above: Order Comment: Speci men Type: BLOOD SPECIMENOrdering Facility: [facility] Address: [address] [place] [address] Result Comment: Unab le to assay due to interference from hemolysis. Suggest reorder as clinically indicated. Performed By: #### 2 4323-8, 26899-9 ####[facility]ATORYCLIA [id number] [address] Anion gap [Moles/Vol] 13 mmol/L Normal 8-15 [facility] Comment on above: Order Comment: Speci men Type: BLOOD SPECIMENOrdering Facility: [facility] Address: [address] [place] [address] Performed By: #### 2 4323-8, 64469-6 ####[facility]ATORYCLIA [id number] [place] [address] [place] AST With P-5'-P [Catalytic activity/Vol] Normal [facility] Comment on above: Order Comment: Speci men Type: BLOOD SPECIMENOrdering Facility: [facility] Address: [address] [place] [address] Result Comment: Unab le to assay due to interference from hemolysis. Suggest reorder as clinically indicated. Performed By: #### 2 4323-8, 32393-9 ####[facility]ATORYCLIA [id number] [place] [address] [place] Bilirubin [Mass/Vol] 0.3 mg/dL Normal 0.2-1.3 [facility] Comment on above: Order Comment: Speci men Type: BLOOD SPECIMENOrdering Facility: [facility] Address: [address] [place] [address] Performed By: #### 2 4323-8, 32689-7 ####[facility]ATORYCLIA [id number] [place] [address] [place] Calcium [Mass/Vol] 9.7 mg/dL Normal 8.5-10.2 [facility] Comment on above: Order Comment: Speci men Type: BLOOD SPECIMENOrdering Facility: [facility] Address: [address] [place] [address] Performed By: #### 2 4323-8, 25990-2 ####[facility]ATORYCLIA [id number] [place] [address] [place] Chloride [Moles/Vol] 100 mmol/L Normal 98-107 [facility] Comment on above: Order Comment: Speci men Type: BLOOD SPECIMENOrdering Facility: [facility] Address: [address] [place] [address] Performed By: #### 2 4323-8, 88491-6 ####[facility]ATORYCLIA [id number] [place] [address] [place] CO2 [Moles/Vol] 25 mmol/L Normal 22-30 [facility] Comment on above: Order Comment: Speci men Type: BLOOD SPECIMENOrdering Facility: [facility] Address: [address] [place] [address] Performed By: #### 2 4323-8, 87908-2 ####[facility]ITALCL[facility] [id number] [address] [place] Creatinine [Mass/Vol] 0.95 mg/dL Normal 0.58-0.96 [facility] Comment on above: Order Comment: Speci men Type: BLOOD SPECIMENOrdering Facility: [facility] Address: [address] [place] [address] Performed By: #### 2 4323-8, 06334-9 ####[facility]ATORYCLIA [id number] [address] Creatinine and Glomerular filtration rate.predicted panel (S/P/Bld) 62 mL/min/1.73m??? Normal >=60 [facility] Comment on above: Order Comment: Ashu men Type: BLOOD SPECIMENOrdering Facility: [facility] Address: [address] [place] [address] Result Comment: Whitney mated Glomerular Filtration Rate (eGFR) is calculated using the 2020 CKD-EPI creatinine equation. This equation utilizes serum creatinine, sex, and age as parameters. The creatinine assay has traceable calibration to isotope dilution-mass spectrometry. Refer to KDIGO guidelines for clinical interpretation. In patients with unstable renal function, e.g. those with acute kidney injury, the eGFR may not accurately reflect actual GFR. Performed By: #### 2 4323-8, 70070-5 ####[facility]ATORYCLIA [id number] [address] [place] Glucose [Mass/Vol] 111 mg/dL High 74-99 [facility] Comment on above: Order Comment: Ashu jose Type: BLOOD SPECIMENOrdering Facility: [facility] Address: [address] [place] [address] Result Comment: The [place] [employer] (ADA) provides guidance for cutoff values for fasting glucose and random glucose. The ADA defines fasting as no caloric intake for at least 8 hours. Fasting plasma glucose results between 100 to 125 mg/dL indicate increased risk for diabetes (prediabetes).Fasting plasma glucose results greater than or equal to 126 mg/dL meet the criteria for diagnosis of diabetes. In the absence of unequivocal hyperglycemia, results should be confirmed by repeat testing. In a patient with classic symptoms of hyperglycemia or hyperglycemic crisis, random plasma glucose results greater than or equal to 200 mg/dL meet the criteria for diagnosis of diabetes.Reference: Standards of Medical Care in Diabetes 2016, [place] [employer]. Diabetes Care. 2016.39(Suppl 1). Performed By: #### 2 4323-8, 14945-6 ####[facility]ORATORYCLIA [id number] [place] [address] [place] Potassium [Moles/Vol] 5.0 mmol/L Normal 3.7-5.1 [facility] Comment on above: Order Comment: Ashu garcia Type: BLOOD SPECIMENOrdering Facility: [facility] Address: [address] [place] [address] Performed By: #### 2 4323-8, 79686-4 ####[facility]ATORYCLIA [id number] [place] [address] [place] Protein [Mass/Vol] 8.1 g/dL High 6.3-8.0 [facility] Comment on above: Order Comment: Ashu garcia Type: BLOOD SPECIMENOrdering Facility: [facility] Address: [address] [place] [address] Performed By: #### 2 4323-8, 41069-1 ####[facility]ATORYCLIA [id number] [place] [address] [place] Sodium [Moles/Vol] 138 mmol/L Normal 136-144 [facility] Comment on above: Order Comment: Ashu garcia Type: BLOOD SPECIMENOrdering Facility: [facility] Address: [address] [place] [address] Performed By: #### 2 4323-8, 66873-2 ####[facility]ORATORYCLIA [id number] [place] [address] [place] Urea nitrogen [Mass/Vol] 18 mg/dL Normal 7-21 [facility] Comment on above: Order Comment: Speci men Type: BLOOD SPECIMENOrdering Facility: [facility] Address: [address] [place] [address] Performed By: #### 2 4323-8, 60529-9 ####[facility]ORATORYCLIA [id number] [place] [address] [place] ECG COMPLETEon 09-22-2024 ECG COMPLETE Normal [facility] ED NOTEon 09-22-2024 ED NOTE Normal [facility] ED NOTE HNO ID: [id number] Author: LUPE GREEN RN Service: Emergency Medicine Author Type: Registered Nurse Type: ED Notes Filed: 09/22/2024 17:53 Note Text: 4- Ride called Normal [facility] ED NOTE HNO ID: [id number] Author: LUPE GREEN RN Service: Emergency Medicine Author Type: Registered Nurse Type: ED Notes Filed: 09/22/2024 17:48 Note Text: Rpt. Given to Lisa at [facility] Normal [facility] ED NOTE HNO ID: [id number] Author: LUPE GREEN RN Service: Emergency Medicine Author Type: Registered Nurse Type: ED Notes Filed: 09/22/2024 14:38 Note Text: Xray called; left vocera message Normal [facility] ED NOTE HNO ID: [id number] Author: TRE JAY PA-C Service: Emergency Medicine Author Type: Physician [employer] [facility] Manager Type: ED Notes Filed: 09/22/2024 13:58 Note Text: I did not evaluate or participate in the care of this patient. Normal [facility] ED NOTE Normal [facility] ED NOTE Normal [facility] ED PROV NOTEon 09-22-2024 ED PROV NOTE Normal [facility] ED PROV NOTE Normal [facility] ED PROV NOTE Normal [facility] HIGH SENSITIVITY TROPONIN T (INITIAL)on 09-22-2024 Troponin T.cardiac High sensitivity method [Mass/Vol] 8 ng/L Normal <12 [facility] Comment on above: Order Comment: Speci men Type: BLOOD SPECIMENOrdering Facility: [facility] Address: [address] [place] [address] Performed By: #### L [id number] ####[facility]ATORYCLIA [id number] [address] HIGH SENSITIVITY TROPONIN T (SECOND)on 09-22-2024 Troponin T.cardiac High sensitivity method [Mass/Vol] 7 ng/L Normal <12 [facility] Comment on above: Order Comment: Speci men Type: BLOOD SPECIMENOrdering Facility: [facility] Address: [address] [place] [address] Performed By: #### L [id number] ####[facility]ORATORYCLIA [id number] [place] [id number] [facility] [place] NT-proBNP [facility] Natriuretic peptide.B prohormone N-Terminal [Mass/Vol] 705 pg/mL High <450 [facility] Comment on above: Order Comment: Speci men Type: BLOOD SPECIMENOrdering Facility: [facility] Address: [address] [place] [address] Performed By: #### 2 4323-8, 32169-8 ####[facility]ORATORYCLIA [id number] [address] [place] XR CHEST 2V FRONTAL/LATon XR CHEST 2V FRONTAL/LAT Normal A [facility] KEPPRA (LEVETIRACETAM)on KEPPRA 45.0 ug/mL Abnormal 10.0-40.0 [place] Comment on above: Order Comment: 304.1 Result Comment: Perf ormed at: [facility] [address] [id number] Director Employee Safety And Health: Yudy Owen MD, Phone: [phone] Performed By: #### L 3310.0000 #### [facility] [address] [place], [place], [id number] LevetiracetamOrdered By: Garcia Acevedo on 09-17-2024 Levetiracetam (Keppra) Level 45.0 ug/mL High 10.0-40.0 [facility] Comment on above: Performed at: [facility] - [facility] [address] [place], [place] [id number] Director: Yudy Owen MD, Phone: [phone] levETIRAcetam [Mass/Vol] 45.0 ug/mL High 10.0-40.0 [facility] Comment on above: Performed at: [facility] [address] [id number] Director: Yudy Owen MD, Phone: [phone] Office Visiton 09-14-2024 Follow-up visit [id number] Tata Lopes Ankur 1945 F Date Provider Department Center 09/14/2024 96183-LSBYQYTJASON PAGE SHMGMITPULRebeka None Family History Problem Relation Age of Onset Dementia Mother Family Status - Relation Status Age at Mother Level of Service:01284 AR OFFICE/OUTPATIENT ESTABLISHED MOD MDM 30 MIN Reason for Visit and Comments: Follow-up [878365] - 1 month Normal [facility] Progress Noteon 09-14-2024 Progress Note [facility]- Pulmonary and Sleep Medicine [address] , [address] [facility] [address] PH: [phone] Visit type: An Established patient 09/14/2024 CHIEF COMPLAINT/REASON FOR REFERRAL: Chief Complaint Patient presents with Follow-up 1 month History of Present Illness Ana Lopes is a 79 y.o. female with multiple medical problems including pulmonary fibrosis COPD chronic respiratory failure DVT hypertension hyperlipidemia sleep apnea recent hospitalization from 07 July to 15 July at [facility] for sepsis secondary to pneumonia treated with antibiotics, acute on chronic heart failure with reduced ejection fraction discharged home patient currently at an extended care facility, uses a walker for mobility dyspnea on exertion MMRC Dyspnea Scale: Grade Description of Breathlessness 0 I only get breathless with strenuous exercise. 1 I get short of breath when hurrying on level ground or walking up a slight hill. 2 On level ground, I walk slower than people of the same age because of breathlessness, or have to stop for breath when walking at my own pace. 3 I stop for breath after walking about 100 yards or after a few minutes on level ground. 4 I am too breathless to leave the house or I am breathless when dressing. PastMedical History Past Medical History: Diagnosis Date Allergic rhinitis Anxiety COPD (chronic obstructive pulmonary disease) ([facility]) Debility Depression Dizziness DM2 (diabetes mellitus, type 2) ([facility]) DVT (deep venous thrombosis) ([facility]) GERD (gastroesophageal reflux disease) Hypercholesteremia Hypertension Lymphedema Migraine headache Morbid obesity ([facility]) Nephrolithiasis status post perc nephrolithotomy MARY (obstructive sleep apnea) Osteoarthrosis Pneumonia Seizures ([facility]) Past Surgical History Past Surgical History: Procedure Laterality Date CHOLECYSTECTOMY 1991 EYE SURGERY 2005 orbital I and D KIDNEY STONE SURGERY 2011 right then left nephrolithotomy TONSILLECTOMY (HISTORICAL) Allergies Allergies Allergen Reactions Acetaminophen-Codeine Nitroglycerin Other Reaction(s): Cough, Unknown Seizure Omeprazole Diarrhea Propoxyphene Other Reaction(s): Other: See Comments Headache Acetaminophen Nausea And Vomiting Other Reaction(s): GI Upset Codeine Rash Other Reaction(s): Unknown Nabumetone Nausea And Vomiting Other Reaction(s): GI Upset Medications Current Outpatient Medications: acetaminophen (Tylenol) 325 MG suppository, Insert 325 mg into the rectum every 4 hours as needed for mild pain (1-3)., Disp: , Rfl: Alcohol Swabs (Alcohol Prep) 70 % pads, , Disp: , Rfl: aspirin 81 MG chewable tablet, Chew 81 mg daily., Disp: , Rfl: atorvastatin (Lipitor) 80 MG tablet, Take 80 mg by mouth daily., Disp: , Rfl: biotin 10 MG capsule, Take 10,000 mcg by mouth daily., Disp: , Rfl: bisacodyl (Bisacodyl EC) 5 MG EC tablet, Take 5 mg by mouth Daily as needed for constipation. Do not crush, chew, or split., Disp: , Rfl: Calcium Carbonate-Vitamin D (Oyster Shell Calcium/D) 500-5 MG-MCG tablet, Take 1 tablet by mouth daily., Disp: , Rfl: cetirizine (ZyrTEC) 10 MG tablet, Take 0.5 tablets (5 mg) by mouth daily., Disp: , Rfl: 0 Cobalamin Combinations (Neuriva Plus) capsule, Take 1 capsule by mouth daily., Disp: , Rfl: Diclofenac Sodium (Voltaren) 1 % gel, Apply 4 g topically 4 times a day., Disp: , Rfl: fluticasone (Flonase) 50 MCG/ACT nasal spray, 1 spray daily., Disp: , Rfl: furosemide (Lasix) 20 MG tablet, Take 20 mg by mouth daily., Disp: , Rfl: Lancets (OneTouch Delica Plus [id number]) [facility], , Disp: , Rfl: levETIRAcetam (Keppra) 750 MG tablet, Take 750 mg by mouth twice a day., Disp: , Rfl: magnesium hydroxide (Milk of Magnesia) 400 MG/5ML suspension, Take 30 mL by mouth Nightly., Disp: , Rfl: metFORMIN (Glucophage) 1000 MG tablet, Take 1 tablet by mouth 2 times daily (with meals)., Disp: , Rfl: Nystop [id number] UNIT/GM powder, Apply 1 Application topically daily., Disp: , Rfl: OneTouch Verio test strip, , Disp: , Rfl: umeclidinium-vilantero l (Anoro Ellipta) 62.5-25 MCG/ACT aerosol powder , Inhale 1 Inhalation daily., Disp: , Rfl: Ventolin HFA 108 (90 Base) MCG/ACT inhaler, Inhale 2 puffs three times daily., Disp: , Rfl: Social History Social History Tobacco Use Smoking status: Former Smokeless tobacco: Never Tobacco comments: Quit smoking: quit in [employer] Substance Use Topics Alcohol use: No Alcohol/week: 0.0 standard drinks of alcohol FamilyHistory Family History Problem Relation Name Age of Onset Dementia Mother Review of Systems Review of Systems Constitutional: Positive for fatigue. Respiratory: Positive for apnea and shortness of breath. Cardiovascular: Positive for leg swelling. Physical Exam Vitals: 09/14/24 0914 BP: 121/70 Pulse: 62 SpO2: 93% Weight: 227 lb (103 kg) Height: 5' 2" (1.575 m) Physical Exam Vitals r (more content not included)... Normal [facility] CT CHEST WO IV CONTRASTon CT CHEST WO IV CONTRAST [facility] 1945 [id number] Exam Date/Time: 09/10/2024 15:27 Procedure: CT CHEST WO IV CONTRAST Ordering Provider: LOVE JULIE Reason For Exam: follow up ?ILD EXAMINATION: CT CHEST WO IV CONTRAST CLINICAL HISTORY: follow up ?ILD COMPARISON: 07/08/2024 TECHNIQUE: Contiguous axial images of the chest without contrast were obtained from above the lung apices through the level of the adrenal glands. Dose reduction was employed with automated exposure control. FINDINGS: Cardiovasculature: The heart is large. Moderate coronary calcifications are noted. Atherosclerotic plaque is present within the thoracic aorta. Pacemaker leads in the right atrium and ventricle. Calcification of the mitral annulus. Large pulmonary trunk. Mediastinum/Pericardiu m: Mild thickening of the esophageal wall. Lymph Nodes: Stable mediastinal lymph nodes, a few of which are mildly enlarged. Pleura: Unremarkable Central Airways: Widely patent. Lungs: Diffuse fibrotic interstitial opacities bilaterally with mild bronchiectasis and several areas of groundglass opacity bilaterally. No significant change from the prior study. Nodules: No nodules are present that require follow up. Included images of the upper abdomen: Unremarkable Visualized musculoskeletal structures: No acute fracture or destructive osseous lesion is identified. IMPRESSION: Diffuse interstitial lung disease and bronchiectasis are similar to the prior study. Associated pulmonary hypertension. Cardiomegaly and moderate coronary artery calcification. Nonspecific esophageal wall thickening. Report Dictated on Electronically Signed By: Jarrell Guallpa MD Electronically Signed Date/Time: 09/11/2024 1:47 PM EST F/U PT NOT SURE WHY SHE IS HAVING THIS TEST DONE [facility] 08-21-2024 36 Name of caller: Zahira Contact phone number: [phone] [facility] to [facility] Provider: THIAGO Love CNP Practice: [facility] Chief Complaint/Reason for Call: fpc need the BIPAP order faxed to them. #[phone] Best time of day caller can be reached: PM Normal [facility] [id number] 36 Your patient has bee n scheduled for their CT chest WO on 09/10/24 at [facility]. If testing requires an insurance authorization, the authorization must be in place 48 hours prior to the scheduled test or testing will be cancelled. Thank you, Central Scheduling Normal [facility] 36on 08-13-2024 36 Noted, thank you [facility] 36 Spoke with nurse taking care of patient at [facility]. She tells me patient does not have active order for BiPAP and would likely need to bring in her own home device to use there. During office visit today, patient stated she is agreeable to resume her PAP therapy. I have placed an order for this, please send to DME supplier. I am aware she hasn't had sleep study done since 2019, so new medicare guidelines may require she have a repeat sleep study to re-instate her PAP. Please let me know if that is the case and if patient is agreeable to new sleep study, I will order. [facility] 37on 08-13-2024 37 YOUR APPOINTMENT TOMarilia HARVEY WAS WITH THE [facility], COPD CLINIC, PULMONARY AND SLEEP MEDICINE OFFICE. PLEASE CALL OUR OFFICE AT [phone] for our [place] office location or [phone] for our [place] location, IF YOU HAVE NOT RECEIVED YOUR TEST RESULTS 7 DAYS AFTER TESTING IS COMPLETED. PLEASE REMEMBER TO REQUEST REFILLS AT YOUR OFFICE VISITS. PHONE/FAX REQUESTS REQUIRE 48-72 HOURS FOR RESPONSE. A FRIENDLY REMINDER COPAYS ARE DUE AT TIME OF SERVICE. THANK YOU. Our Patients Are Important! We want to improve and you can help. After your visit we want you to feel: Listened to, Respected and have your health care explained. You may receive a survey asking you about your visit. Please complete the survey. We will use your feedback to make improvements. COVID-19 VACCINATION INFORMATION: [facility] [phone] [email or web address] /[email or web address] [facility] Central Scheduling [phone] [facility] Sleep Scheduling [phone] [facility] Office Visiton 08-13-2024 Follow-up visit [id number] Tata Lopes 1945 F Date Provider Department Center 08/13/2024 [facility]2601[facility] None Family History Problem Relation Age of Onset Dementia Mother Family Status - Relation Status Age at Mother Level of Service:16494 AR OFFICE/OUTPATIENT ESTABLISHED MOD MDM 30 MIN Reason for Visit and Comments: Hospital Follow-up [832] - Copd Normal [facility] Progress Noteon 08-13-2024 Progress Note [facility] [address] [place] [address] Date of Service: 08/13/2024 Visit type: An Established patient Chief Complaint/Reason for Referral: Hospital Follow-up (Copd ) SUBJECTIVE History of Present Illness: Ana Lopes ( 1945) is a 79 y.o. female patient, with significant PMH of seizure disorder, HFrEF, CHB s/p PPM, COPD, chronic hypoxic respiratory failure, MARY, and tobacco use, being seen for hospital follow up. The patient was admitted to [facility] on 07/07-07/15/24 for acute on chronic HFpEF. Pulmonary consulted for pulmonary edema. CXR with patchy opacities in RUL and LLL, though PNA work up negative. Started empiric antibiotics, but discontinued due to negative work up. Treated with diuretics. Remained on baseline 2L O2. Discharged in stable condition to SNF. Today, patient reports dyspnea has been stable at baseline. Feels sleepy, which is normal for her. Reports dry cough for quite a long time. She is unable to quantify how long. Takes anoro daily, which she feels does help. Has chronic nasal congestion, and uses nasal spray which helps. Uses 2L O2 all the time. Spends majority of time in chair, but able to walk short distances such as to the bathroom and back. Working with therapy. States she has resided at SNF for last 8 months, but planning to move to independent living but unsure when. Says she hasn't been using her CPAP because it got recalled and she didn't turn it in yet. Says she would use it, because it did make her feel better before. ESS: ACT: CAT: MMRC Dyspnea Scale: Grade Description of Breathlessness 0 I only get breathless with strenuous exercise. 1 I get short of breath when hurrying on level ground or walking up a slight hill. 2 On level ground, I walk slower than people of the same age because of breathlessness, or have to stop for breath when walking at my own pace. 3 I stop for breath after walking about 100 yards or after a few minutes on level ground. 4 I am too breathless to leave the house or I am breathless when dressing. OBJECTIVE MEDICAL HISTORY: Past Medical History: Diagnosis Date Allergic rhinitis Anxiety COPD (chronic obstructive pulmonary disease) ([facility]) Debility Depression Dizziness DM2 (diabetes mellitus, type 2) ([facility]) DVT (deep venous thrombosis) ([facility]) GERD (gastroesophageal reflux disease) Hypercholesteremia Hypertension Lymphedema Migraine headache Morbid obesity ([facility]) Nephrolithiasis status post perc nephrolithotomy MARY (obstructive sleep apnea) Osteoarthrosis Pneumonia Seizures ([facility]) SURGICAL HISTORY: Past Surgical History: Procedure Laterality Date CHOLECYSTECTOMY 1991 EYE SURGERY 2005 orbital I and D KIDNEY STONE SURGERY 2012 right then left nephrolithotomy TONSILLECTOMY (HISTORICAL) ALLERGIES: Allergies Allergen Reactions Acetaminophen-Codeine Nitroglycerin Other Reaction(s): Cough, Unknown Seizure Omeprazole Diarrhea Propoxyphene Other Reaction(s): Other: See Comments Headache Acetaminophen Nausea And Vomiting Other Reaction(s): GI Upset Codeine Rash Other Reaction(s): Unknown Nabumetone Nausea And Vomiting Other Reaction(s): GI Upset MEDICATIONS: Current Outpatient Medications: Alcohol Swabs (Alcohol Prep) 70 % pads, , Disp: , Rfl: aspirin 81 MG chewable tablet, Chew 81 mg daily., Disp: , Rfl: atorvastatin (Lipitor) 80 MG tablet, Take 80 mg by mouth daily., Disp: , Rfl: biotin 10 MG capsule, Take 10,000 mcg by mouth daily., Disp: , Rfl: Calcium Carbonate-Vitamin D (Oyster Shell Calcium/D) 500-5 MG-MCG tablet, Take 1 tablet by mouth daily., Disp: , Rfl: cetirizine (ZyrTEC) 10 MG tablet, Take 0.5 tablets (5 mg) by mouth daily., Disp: , Rfl: 0 Cobalamin Combinations (Neuriva Plus) capsule, Take 1 capsule by mouth daily., Disp: , Rfl: Diclofenac Sodium (Voltaren) 1 % gel, Apply 4 g topically 4 times a day., Disp: , Rfl: fluticasone (Flonase) 50 MCG/ACT nasal spray, 1 spray daily., Disp: , Rfl: furosemide (Lasix) 20 MG tablet, Take 20 mg by mouth daily., Disp: , Rfl: Lancets (OneTouch Delica Plus [id number]) [facility], , Disp: , Rfl: levETIRAcetam (Keppra) 750 MG tablet, Take 750 mg by mouth twice a day., Disp: , Rfl: metFORMIN (Glucophage) 1000 MG tablet, Take 1 tablet by mouth 2 times daily (with meals)., Disp: , Rfl: Nystop [id number] UNIT/GM powder, Apply 1 Application topically daily., Disp: , Rfl: OneTouch Verio test strip, , Disp: , Rfl: polyvinyl alcohol (Liquifilm Tears) 1.4 % ophthalmic solution, Administer 1 drop into affected eye(s) if needed., Disp: , Rfl: prednisoLONE acetate (Pred-Forte) 1 % ophthalmic suspension, 1 drop by Other route 3 times a day., Disp: , Rfl: umeclidinium-vilantero l (Anoro Ellipta) 62.5-25 MCG/ACT aerosol powder , Inhale 1 Inhalation daily., Disp: , Rfl: Ventolin HFA 108 (90 Base) MCG/AC (more content not included)... Normal [facility] No Panel Informationon 07-22 BLANK _ [facility] Implant Date 10/22/2023 [facility] PACEMAKER REMOTE CHECKon AV Delay Adaptive Paced Minimum (ms) 300 ms [facility] AV Delay Adaptive Sensed Minimum (ms) 250 ms [facility] AV Delay Adaptive Status DISABLED [facility] Battery Voltage (volts) 3.06 V [facility] Дмитрий RA Pacing Amplitude (volts) 1.5 V [facility] Дмитрий RA Pacing Polarity BI [facility] Дмитрий RA Pacing Pulse Width (ms) 0.4 ms [facility] Дмитрий RA Sensing Amplitude (mvolts) 0.3 mV [facility] Дмитрий RA Sensing Blanking Period (ms) 150 ms [facility] Дмитрий RA Sensing Polarity BI [facility] Дмитрий RA Sensing Refractory Period (ms) Auto [facility] Дмитрий RV Pacing Amplitude (volts) 2 V [facility] Дмитрий RV Pacing Polarity BI [facility] Дмитрий RV Pacing Pulse Width (ms) 0.4 ms [facility] Дмитрий RV Sensing Amplitude (mvolts) 0.9 mV [facility] Дмитрий RV Sensing Blanking Period (ms) 200 ms [facility] Дмитрий RV Sensing Polarity BI [facility] Hysteresis Rate (bpm) DISABLED [facility] Lead1 [facility] Lead2 Mfg Medtronic [facility] Location RV [facility] Location RA [facility] Lower Rate (bpm) 60 {beats}/min [facility] Max Sensor Rate (bmp) 120 {beats}/min [facility] Model [id number] Rakel XT DR MRI Cl [facility] Model 3830-69 [facility] Model 5076-52 Capsurefix Novus [facility] Pacing Mode DDD [facility] PM-Device Mfg MDT [facility] PM-Percent Pacing (A) 10.88 % [facility] PM-Percent Pacing (V) 94.07 % [facility] PM-PMT Intervention ENABLED [facility] PM-PVC Intervention ENABLED [facility] PM-Rate Modulation Acceleration Reaction 30 s [facility] PM-Rate Modulation ADL Rate (bpm) 95 {beats}/min [facility] PM-Rate Modulation Deceleration Exercise [facility] PM-Rate Modulation Greenlee 3 [facility] PM-Rate Modulation Threshold Low [facility] RA Bipolar Impedance ohms 437 ohm [facility] RA Unipolar Impedance ohms 304 ohm [facility] RV Bipolar Impedance ohms 551 ohm [facility] RV Unipolar Impedance 380 ohm [facility] Serial Number [id number] [facility] Serial Number [id number] [facility] Serial Number [id number] [facility] Thresh RA Capture Amplitude (volts) 0.625 V [facility] Thresh RA Capture Duration (ms) 0.4 ms [facility] Thresh RA Sensing Amplitude (mvolts) 3.375 mV [facility] Thresh RV Capture Amplitude (volts) 0.5 V [facility] Thresh RV Capture Duration (ms) 0.4 ms [facility] Thresh RV Sensing Amplitude (mvolts) 7.875 mV [facility] Tracking Rate (bpm) 120 {beats}/min [facility] PM remote interrogation. Presenting EGM shows p-synch RV paced @ 75 ppm. Interrogation shows no ventricular high rate or mode switch episodes since last check. Lead impedances and sensing measurements stable. Battery voltage stable. Recommended replacement time is 11.9 years. Vamshi CVT NOTE TO PROVIDERS: "CARD" Flowsheets contain detailed device programming and testing data. Paceart/Interrogation PDF can be found under CARDIAC DATA AND REPORT, "Scanned Documents" section. PACEART 07/22/2024 Formattin g of this note might be different from the original. PM remote interrogation. Presenting EGM shows p-synch RV paced @ 75 ppm. Interrogation shows no ventricular high rate or mode switch episodes since last check. Lead impedances and sensing measurements stable. Battery voltage stable. Recommended replacement time is 11.9 years. [employer]amshi CVT NOTE TO PROVIDERS: "CARD" Flowsheets contain detailed device programming and testing data. Paceart/Interrogation PDF can be found under CARDIAC DATA AND REPORT, "Scanned Documents" section. [facility] [id number] 07-15-2024 [id number] Asked by T[facility] to set transport to return to [facility]. The [employer] Vehicle you requested for Ana Middleton in unit/room [facility] [id number] on 07/15/2024 is scheduled to arrive at 6:00pm ESTSmartStart is handling this ride and you can contact them at . Pt, nurse, unit sec, TCC, and facility informed of time. [facility] [phone] [facility] tasked in Carepo rt yesterday to begin [facility] auth for [facility]. Submitting for auth this AM. TCC will continue to follow. [facility] BASIC METABOLIC PANELon -0 Anion gap [Moles/Vol] 8 mmol/L Normal 3-13 [facility] Comment on above: Performed By: #### L AB15 ####Supply Officer: JUSTICE ABDULLAHI ([id number])[facility] (SBHLAB)[address] Calcium [Mass/Vol] 9.1 mg/dL Normal 8.8-10.0 [facility] Comment on above: Performed By: #### L AB15 ####Supply Officer: JUSTICE ABDULLAHI ([id number])[facility] ([facility])[address] Chloride [Moles/Vol] 102 mmol/L Normal 98-107 [facility] Comment on above: Performed By: #### L AB15 ####Supply Officer: JUSTICE ABDULLAHI ([id number])[facility] ([facility])[address] CO2 [Moles/Vol] 30 mmol/L Normal 23-31 [facility] Comment on above: Performed By: #### L AB15 ####Supply Officer: JUSTICE ABDULLAHI ([id number])[facility] ([facility])[address] Creatinine [Mass/Vol] 0.78 mg/dL Normal 0.57-1.11 [facility] Comment on above: Performed By: #### L AB15 ####Supply Officer: JUSTICE ABDULLAHI ([id number])[facility] [place] [address] [place] GLOMERULAR FILTRATION RATE ML/MIN/1.73 SQ M.PREDICTED 78.3 mL/min/1.73m*2 Normal >60.0 [facility] Comment on above: Result Comment: Calc ulation based on the Chronic Kidney Disease Epidemiology Collaboration (CKD-EPI) equation refit without adjustment for race Performed By: #### L AB15 ####Supply Officer: JUSTICE ABDULLAHI ([id number])[facility] (HLAB)[address] Glucose [Mass/Vol] 155 mg/dL High 82-115 [facility] Comment on above: Performed By: #### L AB15 ####Supply Officer: JUSTICE ABDULLAHI ([id number])[facility] ([facility])[address] [place] [address] [place] Potassium [Moles/Vol] 4.3 mmol/L Normal 3.5-5.1 [facility] Comment on above: Result Comment: [facility] potassium values may be up to 0.5 mmol/L lower than serum values. Performed By: #### L AB15 ####Supply Officer: JUSTICE ABDULLAHI ([id number])[facility] ([facility])[address] Sodium [Moles/Vol] 140 mmol/L Normal 136-145 [facility] Comment on above: Performed By: #### L AB15 ####Supply Officer: JUSTICE BHAVESHNARA ([id number])[facility] ([facility])[address] Urea nitrogen [Mass/Vol] 26 mg/dL High 9-23 [facility] Comment on above: Performed By: #### L AB15 ####Supply Officer: JUSTICE ABDULLAHI ([id number])[facility] ([facility])[address] Basic metabolic 1998 panelon 07-15-2024 Anion gap [Moles/Vol] 8 mmol/L 3 - 13 mmol/L [facility] Calcium [Mass/Vol] 9.1 mg/dL 8.8 - 10. 0 mg/dL [facility] Chloride [Moles/Vol] 102 mmol/L 98 - 10 7 mmol/L [facility] CO2 [Moles/Vol] 30 mmol/L 23 - 31 mmol/L [facility] Creatinine [Mass/Vol] 0.78 mg/dL 0.57 - 1.11 mg/dL [facility] GFR/1.73 sq M.predicted (S/P/Bld) [Vol rate/Area] 78.3 mL/min - PINF [facility] Comment on above: Calculation based on the Chronic Kidney Disease Epidemiology Collaboration (CKD-EPI) equation refit without adjustment for race Glucose [Mass/Vol] 155 mg/dL High 82 - 115 mg/dL [facility] Interpretation and review of laboratory results Abnormal [facility] Potassium [Moles/Vol] 4.3 mmol/L 3.5 - 5.1 mmol/L [facility] Comment on above: Plasma potassium guillermo ues may be up to 0.5 mmol/L lower than serum values. Sodium [Moles/Vol] 140 mmol/L 136 - 145 mmol/L [facility] Urea nitrogen [Mass/Vol] 26 mg/dL High 9 - 23 mg/d L [facility] CBC W Auto Differential pane l (Bld)on 07-15-2024 Basophils (Bld) [#/Vol] 0.1 10*3/uL 0.0 - 0.2 10*3/uL [facility] Basophils/100 WBC (Bld) 0.5 % 0.0 - 2.0 % [facility] Eosinophils (Bld) [#/Vol] 0.3 10*3/uL 0.0 - 0.5 10*3/uL [facility] Eosinophils/100 WBC (Bld) 2.6 % 0.0 - 6.0 % [facility] Erythrocyte distribution width (RBC) [Ratio] 15 % 11.5 - 15.0 % [facility] Hematocrit (Bld) [Volume fraction] 35.2 % 35.0 - 47.0 % [facility] Hemoglobin (Bld) [Mass/Vol] 11.4 g/dL Low 11.7 - 16.0 g/dL [facility] Immature granulocytes (Bld) [#/Vol] 0 10*3/uL NINF - 0.1 10*3/uL [facility] Immature granulocytes/100 WBC (Bld) 0.4 % 0.0 - 2.0 % [facility] Interpretation and review of laboratory results Abnormal [facility] Lymphocytes (Bld) [#/Vol] 3.2 10*3/uL 1.0 - 4.3 10*3/uL [facility] Lymphocytes/100 WBC (Bld) 32.4 % 15.0 - 45.0 % [facility] MCH (RBC) [Entitic mass] 30.1 pg 26. 0 - 34.0 pg [facility] MCHC (RBC) [Mass/Vol] 32.4 % 30.5 - 36.0 % [facility] MCV (RBC) [Entitic vol] 92.9 fL 77.0 - 99.0 fL [facility] Monocytes (Bld) [#/Vol] 0.7 10*3/uL 0.0 - 0.9 10*3/uL [facility] Monocytes/100 WBC (Bld) 6.7 % 5.0 - 13.0 % [facility] Neutrophils (Bld) [#/Vol] 5.6 10*3/uL 1.8 - 7.5 10*3/uL [facility] Neutrophils/100 WBC (Bld) 57.4 % 38.0 - 82.0 % [facility] Nucleated RBC/100 WBC (Bld) [Ratio] 0 % [facility] Platelet mean volume (Bld) [Entitic vol] 9 fL 9.0 - 12.7 fL [facility] Platelets (Bld) [#/Vol] 283 10*3/uL 140 - 440 10*3/uL [facility] RBC (Bld) [#/Vol] 3.79 10*6/uL Low 3.80 - 5.2 0 10*6/uL [facility] WBC (Bld) [#/Vol] 9.8 10*3/uL 3.6 - 10.7 10*3/uL [facility] CBC WITH AUTO DIFFERENTIALon 07-15-2024 Basophils (Bld) [#/Vol] 0.1 10*3/uL Normal 0.0-0.2 [facility] Comment on above: Performed By: #### L [id number] ####Supply Officer: JUSTICE ABDULLAHI ([id number])[facility] ([facility])[address] [place] [address] Basophils/100 WBC (Bld) 0.5 % Normal 0.0-2.0 [facility] Comment on above: Performed By: #### L [id number] ####Supply Officer: JUSTICE ABDULLAHI ([id number])[facility] ([facility] [place] [address] Eosinophils (Bld) [#/Vol] 0.3 10*3/uL Normal 0.0-0.5 [facility] Comment on above: Performed By: #### L [id number] ####Supply Officer: JUSTICE ABDULLAHI ([id number])[facility] [place] ([facility])[address] [place] [address] Eosinophils/100 WBC (Bld) 2.6 % Normal 0.0-6.0 [facility] Comment on above: Performed By: #### L [id number] ####Supply Officer: JUSTICE ABDULLAHI ([id number])[facility] ([facility])[address] [place] [address] Erythrocyte distribution width (RBC) [Ratio] 15.0 % Normal 11.5-15.0 [facility] Comment on above: Performed By: #### L [id number] ####Supply Officer: JUSTICE ABDULLAHI ([id number])[facility] ([facility])[address] [place] [address] Hematocrit (Bld) [Volume fraction] 35.2 % Normal 35.0-47.0 [facility] Comment on above: Performed By: #### L [id number] ####Supply Officer: JUSTICE ABDULLAHI ([phone])[facility] ([facility])[address] [place] [address] Hemoglobin (Bld) [Mass/Vol] 11.4 g/dL Low 11.7-16.0 [facility] Comment on above: Performed By: #### L [id number] ####Supply Officer: JUSTICE ABDULLAHI ([id number])[facility] ([facility])[address] [place] [address] IMMATURE GRANS % 0.4 % Normal 0.0-2.0 [facility] Comment on above: Performed By: #### L [id number] ####Supply Officer: JUSTICE ABDULLAHI ([id number])[facility] ([facility])[address] [place] [address] IMMATURE GRANS ABSOLUTE 0.0 10*3/uL Normal <0.1 [facility] Comment on above: Performed By: #### L [id number] ####Supply Officer: JUSTICE ABDULLAHI ([id number])[facility] ([facility])[address] [place] [address] Lymphocytes (Bld) [#/Vol] 3.2 10*3/uL Normal 1.0-4.3 [facility] Comment on above: Performed By: #### L [id number] ####Supply Officer: JUSTICE OPSINANARA ([id number])[facility])[address] [place] [address] Lymphocytes/100 WBC (Bld) 32.4 % Normal 15.0-45.0 [facility] Comment on above: Performed By: #### L [id number] ####Supply Officer: JUSTICE OSPINANARA ([id number])[facility] ([facility])[address] MCH (RBC) [Entitic mass] 30.1 pg Normal 26.0-34.0 [facility] Comment on above: Performed By: #### L [id number] ####Supply Officer: JUSTICE KAYLEN ([id number])[facility] ([facility])[address] MCHC 32.4 % Normal 30.5-36.0 [facility] Comment on above: Performed By: #### L [id number] ####Supply Officer: JUSTICE KAYLEN ([id number])[facility] [place] (SBHLAB)[address] [place] [address] MCV (RBC) [Entitic vol] 92.9 fL Normal 77.0-99.0 [facility] Comment on above: Performed By: #### L [id number] ####Supply Officer: JUSTICE OSPINANARA ([phone])[facility] [place] ([facility])[address] [place] [address] Monocytes (Bld) [#/Vol] 0.7 10*3/uL Normal 0.0-0.9 [facility] Comment on above: Performed By: #### L [id number] ####Supply Officer: JUSTICE ABDULLAHI ([id number])[facility] [place] (SBHLAB)[address] [place] [address] [place] Monocytes/100 WBC (Bld) 6.7 % Normal 5.0-13.0 [facility] Comment on above: Performed By: #### L [id number] ####Supply Officer: JUSTICE OSPINANARA ([id number])[facility] [place] (SBHL[facility])[address] NEUTROPHILS ABSOLUTE 5.6 10*3/uL Normal 1.8-7.5 [facility] Comment on above: Performed By: #### L [id number] ####Supply Officer: JUSTICE ABDULLAHI ([id number])[facility] [place] ([facility])[address] Neutrophils/100 WBC (Bld) 57.4 % Normal 38.0-82.0 [facility] Comment on above: Performed By: #### L [id number] ####Supply Officer: JUSTICE ABDULLAHI ([id number])[facility] [place] ([facility])[address] NRBC 0.0 /100 WBCs Normal 0.0-2.0 [facility] Comment on above: Performed By: #### L [id number] ####Supply Officer: JUSTICE ABDULLAHI ([id number])[facility] [place] ([facility])[address] Platelet mean volume (Bld) [Entitic vol] 9.0 fL Normal 9.0-12.7 [facility] Comment on above: Performed By: #### L [id number] ####Supply Officer: JUSTICE ABDULLAHI ([id number])[facility] [place] ([facility])[address] [place] [address] [place] Platelets (Bld) [#/Vol] 283 10*3/uL Normal 140-440 [facility] Comment on above: Performed By: #### L [id number] ####Supply Officer: JUSTICE ABDULLAHI ([id number])[facility] [place] ([facility])[address] [place] [address] [place] RBC (Bld) [#/Vol] 3.79 10*6/uL Low 3.80-5.20 [facility] Comment on above: Performed By: #### L [id number] ####Supply Officer: JUSTICE ABDULLAHI ([id number])[facility] [place] ([facility])[address] [place] [address] [place] WBC (Bld) [#/Vol] 9.8 10*3/uL Normal 3.6-10.7 [facility] Comment on above: Performed By: #### L [id number] ####Supply Officer: JUSTICE ABDULLAHI ([id number])[facility] ([facility])[address] [place] [address] Consulton 07-15-2024 Consult [facility] Wound Care Prevention CONSULT Note Ana Lopes AGE: 79 y.o. GENDER: female : 1945 Subjective: HISTORY of PRESENT ILLNESS HPI Ana Lopes is a 79 y.o. female who presents for a wound care prevention consult. History of Wound Context: Ana is a 79 y.o. female who presents with chief complaint of altered mental status and fall from SNF. She was sent in from facility with altered mental status and was found down on the floor. She states she had a seizure but none witnessed or reported. Consult placed for Enrique score prevention and skin assessment was performed with legal director at bedside and no open wounds or areas of concern for breakdown found. Hospital prevention measures in place, including: Broomfield sheet (obtained) with pillows/wedges, Foam heel protectors (obtained and applied), Heels elevated off bed on pillows, Sacral foam (obtained and applied), Zinc/Moisture Barrier ointment (obtained), Waffle chair cushion (obtain for pt once getting out of bed to chair). PAST MEDICAL HISTORY Past Medical History: Diagnosis Date Allergic rhinitis Anxiety COPD (chronic obstructive pulmonary disease) ([facility]) Debility Depression Dizziness DM2 (diabetes mellitus, type 2) ([facility]) DVT (deep venous thrombosis) ([facility]) GERD (gastroesophageal reflux disease) Hypercholesteremia Hypertension Lymphedema Migraine headache Morbid obesity (CMS/HCC) ([facility]) Nephrolithiasis status post perc nephrolithotomy MARY (obstructive sleep apnea) Osteoarthrosis Pneumonia Seizures ([facility]/HCC) ([facility]) PAST SURGICAL HISTORY Past Surgical History: Procedure Laterality Date CHOLECYSTECTOMY 1991 EYE SURGERY 2006 orbital I and D KIDNEY STONE SURGERY 2012 right then left nephrolithotomy TONSILLECTOMY (HISTORICAL) FAMILY HISTORY Family History Problem Relation Name Age of Onset Dementia Mother SOCIAL HISTORY Social History Tobacco Use Smoking status: Former Smokeless tobacco: Never Tobacco comments: Quit smoking: quit in highschool Substance Use Topics Alcohol use: No Alcohol/week: 0.0 standard drinks of alcohol Drug use: No ALLERGIES No Known Allergies MEDICATIONS No current facility-administered medications on file prior to encounter. Current Outpatient Medications on File Prior to Encounter Medication Sig Dispense Refill atorvastatin (Lipitor) 80 MG tablet Take 80 mg by mouth daily. biotin 10 MG capsule Take 10,000 mcg by mouth daily. Calcium Carbonate-Vitamin D (Oyster Shell Calcium/D) 500-5 MG-MCG tablet Take 1 tablet by mouth daily. Cobalamin Combinations (Neuriva Plus) capsule Take 1 capsule by mouth daily. Diclofenac Sodium (Voltaren) 1 % gel Apply 4 g topically 4 times a day. fluticasone (Flonase) 50 MCG/ACT nasal spray 1 spray daily. furosemide (Lasix) 20 MG tablet Take 20 mg by mouth daily. levETIRAcetam (Keppra) 750 MG tablet Take 750 mg by mouth twice a day. metFORMIN (Glucophage) 1000 MG tablet Take 1 tablet by mouth 2 times daily (with meals). umeclidinium-vilantero l (Anoro Ellipta) 62.5-25 MCG/ACT aerosol powder Inhale 1 Inhalation daily. [DISCONTINUED] cetirizine (ZyrTEC) 10 MG tablet Take 10 mg by mouth daily. REVIEW OF SYSTEMS Pertinent items are noted in HPI. Objective: BP 111/58 (BP Location: Left arm, Patient Position: Sitting) Pulse 80 Temp 36.5 ?C (97.7 ?F) (Temporal) Resp 18 Ht 5' 4" (1.626 m) Wt 227 lb 1.2 oz (103 kg) SpO2 95% BMI 38.98 kg/m? PHYSICAL EXAM General appearance: in no apparent distress, well developed and well nourished, in no respiratory distress and acyanotic, alert, and oriented times 3 Skin: warm and dry, no open wounds or rashes Pulmonary: Normal effort, no respiratory distress, no cyanosis Abdomen: soft, nontender, and nondistended Extremities: no cyanosis, clubbing or edema LABS CBC: Lab Results Component Value Date WBC 9.8 07/15/2024 HGB 11.4 (L) 07/15/2024 HCT 35.2 07/15/2024 MCV 92.9 07/15/2024 PLT 283 07/15/2024 BMP: Lab Results Component Value Date NA 140 07/15/2024 K 4.3 07/15/2024 CL 102 07/15/2024 CO2 30 07/15/2024 BUN 26 (H) 07/15/2024 CREATININE 0.78 07/15/2024 PT/INR: No results found for: "PROTIME", INR Prealbumin: No results found for: PREALBUMIN Albumin:No components found for: "LABALBU" Sed Rate:No results found for: "SEDRATE" Micro: No components found for: "BC" Assessment/Plan: PREVENTION RECOMMENDATION: 1. Turn and reposition every 2 hours and PRN while in bed 2. Reposition every 1 hour while sitting up in chair. Limit time up in chair to 2 hour time intervals if patient is unable to reposition self. 3. Q2H incontinence checks, NO BRIEFS IN BED 4. Monitor bony prominences for redness or skin breakdown 5. Change foam dressing for prevention applied to site/bony prominence every 7 days. Pull back foam dressing and reassess skin every shift. 6. Maintain head (more content not included)... Normal [facility] Laboratory - Chemistry and C hemistry - challengeon 07-15-2024 Glucose [Mass/Vol] 258 mg/dL High 70 - 100 mg/dL [facility] Panels Glucose [Mass/Vol] 152 mg/dL High 70 - 100 mg/dL [facility] Glucose [Mass/Vol] 178 mg/dL High 70 - 100 mg/dL [facility] No Panel Informationon 07-15 Interpretation and review of laboratory results Abnormal [facility] Performed by: [facility] [employer] [facility], [address] [place] [id number] CLIA ID: [id number] [facility] Interpretation and review of laboratory results Abnormal [facility] Performed by: [facility], [address] [place] [id number] CLIA ID: [id number] [facility] Interpretation and review of laboratory results Abnormal [facility] Performed by: [facility], [address] [place] [id number] CLIA ID: [id number] [facility] Nursing Noteon 07-15-2024 Nursing Note Wound Care consulted for Pressure Injury Prevention. Pt's Enrique score= 18 on 07/14 Pt's pressure points assessed. Pt's Heels, Buttocks/coccyx, Back, Elbows, Occiput and ears all intact. Prevention Measures in place, including: Broomfield sheet (obtained) with pillows/wedges, Foam heel protectors (obtained and applied), Heels elevated off bed on pillows, Sacral foam (obtained and applied), Zinc/Moisture Barrier ointment (obtained), Waffle chair cushion (obtain for pt once getting out of bed to chair). Skin Care precaution order set in place. Dietitian consult in place. PT/OT consult in place. D/W nursing staff. Will continue to follow pt. Please secure chat for any questions or concerns. Xochitl Brown RN Normal [facility] BASIC METABOLIC PANELon 01-0 Anion gap [Moles/Vol] 8 mmol/L Normal 3-13 [facility] Comment on above: Performed By: #### L [id number] ####Supply Officer: JUSTICE ABDULLAHI ([id number])[facility] ([facility])[address] [place] [address] Calcium [Mass/Vol] 9.3 mg/dL Normal 8.8-10.0 [facility] Comment on above: Performed By: #### L [id number] ####Supply Officer: JUSTICE ABDULLAHI ([phone])[facility] ([facility])[address] [place] [address] Chloride [Moles/Vol] 100 mmol/L Normal 98-107 [facility] Comment on above: Performed By: #### L [id number] ####Supply Officer: JUSTICE ABDULLAHI ([id number])[facility] ([facility])[address] [place] [address] CO2 [Moles/Vol] 31 mmol/L Normal 23-31 [facility] Comment on above: Performed By: #### L AB15 ####Supply Officer: JUSTICE ABDULLAHI ([id number])[facility] ([facility])[address] [place] [address] Glucose [Mass/Vol] 129 mg/dL High 82-115 [facility] Comment on above: Performed By: #### L AB15 ####Supply Officer: JUSTICE ORNELASCER ([id number])[facility] [place] ([facility])[address] Potassium [Moles/Vol] 4.1 mmol/L Normal 3.5-5.1 [facility] Comment on above: Plasma potassium guillermo ues may be up to 0.5 mmol/L lower than serum values. Result Comment: [facility] potassium values may be up to 0.5 mmol/L lower than serum values. Performed By: #### L AB15 ####Supply Officer: JUSTICE ABDULLAHI ([id number])[facility] [place] ([facility])[address] Sodium [Moles/Vol] 139 mmol/L Normal 136-145 [facility] Comment on above: Performed By: #### L AB15 ####Supply Officer: JUSTICE ABDULLAHI ([id number])[facility] [place] ([facility])[address] Urea nitrogen [Mass/Vol] 24 mg/dL High 9-23 [facility] Comment on above: Performed By: #### L AB15 ####Supply Officer: JUSTICE ABDULLAHI ([phone])[facility] [place] ([facility])[address] Creatinine [Mass/Vol] 0.70 mg/dL Normal 0.57-1.11 [facility] Comment on above: Performed By: #### L AB15 ####Supply Officer: JUSTICE OSPINANARA ([id number])[facility] [place] (SB[facility])[address] [place] [address] [place] GLOMERULAR FILTRATION RATE ML/MIN/1.73 SQ M.PREDICTED 89.2 mL/min/1.73m*2 Normal >60.0 [facility] Comment on above: Result Comment: Calc ulation based on the Chronic Kidney Disease Epidemiology Collaboration (CKD-EPI) equation refit without adjustment for race Performed By: #### L AB15 ####Supply Officer: JUSTICE ABDULLAHI ([id number])[facility] [place] ([facility])[address] Basic metabolic 1998 panelon 07-14-2024 Creatinine [Mass/Vol] 0.7 mg/dL 0.57 - 1.11 mg/dL [facility] GFR/1.73 sq M.predicted (S/P/Bld) [Vol rate/Area] 89.2 mL/min - PINF [facility] Comment on above: Calculation based on the Chronic Kidney Disease Epidemiology Collaboration (CKD-EPI) equation refit without adjustment for race Interpretation and review of laboratory results Abnormal [facility] CBC W Auto Differential pane l (Bld)on 07-14-2024 Immature granulocytes (Bld) [#/Vol] 0 10*3/uL NINF - 0.1 10*3/uL [facility] Immature granulocytes/100 WBC (Bld) 0.2 % 0.0 - 2.0 % [facility] Interpretation and review of laboratory results Abnormal [facility] MCHC (RBC) [Mass/Vol] 31.7 % 30.5 - 36.0 % [facility] MCV (RBC) [Entitic vol] 93 fL 77.0 - 99.0 fL [facility] Monocytes/100 WBC (Bld) 8 % 5.0 - 13.0 % [facility] Neutrophils (Bld) [#/Vol] 4.9 10*3/uL 1.8 - 7.5 10*3/uL [facility] Nucleated RBC/100 WBC (Bld) [Ratio] 0 % [facility] CBC WITH AUTO DIFFERENTIALon 07-14-2024 Basophils (Bld) [#/Vol] 0.1 10*3/uL Normal 0.0-0.2 [facility] Comment on above: Performed By: #### L [id number] #### Supply Officer: JUSTICE ABDULLAHI ([id number]) [facility] ([facility]) [address] [place] [address] [place] Basophils/100 WBC (Bld) 0.5 % Normal 0.0-2.0 [facility] Comment on above: Performed By: #### L [id number] #### Supply Officer: JUSTICE ABDULLAHI ([phone]) [facility] (SB[facility]) [address] [place] [address] [place] Eosinophils (Bld) [#/Vol] 0.4 10*3/uL Normal 0.0-0.5 [facility] Comment on above: Performed By: #### L [id number] #### Supply Officer: JUSTICE ABDULLAHI ([id number]) [facility] ([facility]) [address] Eosinophils/100 WBC (Bld) 3.9 % Normal 0.0-6.0 [facility] Comment on above: Performed By: #### L [id number] #### Supply Officer: JUSTICE ABDULLAHI ([id number]) [facility] ([facility]) [address] [place] [address] Erythrocyte distribution width (RBC) [Ratio] 15.2 % High 11.5-15.0 [facility] Comment on above: Performed By: #### L [id number] #### Supply Officer: JUSTICE ABDULLAHI ([phone]) [facility] ([facility]) [address] [place] [address] Hematocrit (Bld) [Volume fraction] 35.7 % Normal 35.0-47.0 [facility] Comment on above: Performed By: #### L [id number] #### Supply Officer: JUSTICE KAYLEN ([id number]) [facility] ([facility]) [address] [place] [address] Hemoglobin (Bld) [Mass/Vol] 11.3 g/dL Low 11.7-16.0 [facility] Comment on above: Performed By: #### L [id number] #### Supply Officer: JUSTICE KAYLEN ([id number]) [facility] [address] Lymphocytes (Bld) [#/Vol] 3.1 10*3/uL Normal 1.0-4.3 [facility] Comment on above: Performed By: #### L [id number] #### Supply Officer: JUSTICE KAYLEN ([id number]) [facility] [address] [place] [address] [place] Lymphocytes/100 WBC (Bld) 33.8 % Normal 15.0-45.0 [facility] Comment on above: Performed By: #### L [id number] #### Supply Officer: JUSTICE OSPINANARA ([id number]) [facility] (SB[facility]) [address] MCH (RBC) [Entitic mass] 29.4 pg Normal 26.0-34.0 [facility] Comment on above: Performed By: #### L [id number] #### Supply Officer: JUSTICE OSPINANARA ([id number]) [facility] ([facility]) [address] Monocytes (Bld) [#/Vol] 0.7 10*3/uL Normal 0.0-0.9 [facility] Comment on above: Performed By: #### L [id number] #### Supply Officer: JUSTICE RODRIGUEZGERONIMO ([phone]) [facility] [address] Neutrophils/100 WBC (Bld) 53.6 % Normal 38.0-82.0 [facility] Comment on above: Performed By: #### L [id number] #### Supply Officer: JUSTICE OSPINANARA ([id number]) [facility] [address] Platelet mean volume (Bld) [Entitic vol] 9.3 fL Normal 9.0-12.7 [facility] Comment on above: Performed By: #### L [id number] #### Supply Officer: JUSTICE OSPINANARA ([id number]) [facility] ([facility]) [address] Platelets (Bld) [#/Vol] 273 10*3/uL Normal 140-440 [facility] Comment on above: Performed By: #### L [id number] #### Supply Officer: JUSTICE ABDULLAHI ([id number]) [facility] ([facility]) [address] RBC (Bld) [#/Vol] 3.84 10*6/uL Normal 3.80-5.20 [facility] Comment on above: Performed By: #### L [id number] #### Supply Officer: JUSTICE ABDULLAHI ([id number]) [facility] ([facility]) [address] WBC (Bld) [#/Vol] 9.2 10*3/uL Normal 3.6-10.7 [facility] Comment on above: Performed By: #### L [id number] #### Supply Officer: JUSTICE ABDULLAHI ([id number]) [facility] [address] IMMATURE GRANS % 0.2 % Normal 0.0-2.0 [facility] Comment on above: Performed By: #### L [id number] #### Supply Officer: JUSTICE ABDULLAHI ([phone]) [facility]) [address] [place] [address] IMMATURE GRANS ABSOLUTE 0.0 10*3/uL Normal <0.1 [facility] Comment on above: Performed By: #### L [id number] #### Supply Officer: JUSTICE ABDULLAHI ([id number]) [facility]) [address] [place] [address] MCHC 31.7 % Normal 30.5-36.0 [facility] Comment on above: Performed By: #### L [id number] #### Supply Officer: JUSTICE ABDULLAHI ([id number]) [facility] [address] [place] [address] MCV (RBC) [Entitic vol] 93.0 fL Normal 77.0-99.0 [facility] Comment on above: Performed By: #### L [id number] #### Supply Officer: JUSTICE ABDULLAHI ([id number]) [facility] (HLAB) [address] Monocytes/100 WBC (Bld) 8.0 % Normal 5.0-13.0 [facility] Comment on above: Performed By: #### L [id number] #### Supply Officer: JUSTICE ABDULLAHI ([id number]) [facility] (SBHLAB) [address] NEUTROPHILS ABSOLUTE 4.9 10*3/uL Normal 1.8-7.5 [facility] Comment on above: Performed By: #### L [id number] #### Supply Officer: JUSTICE ABDULLAHI ([id number]) [facility] (SBHLAB) [address] NRBC 0.0 /100 WBCs Normal 0.0-2.0 [facility] Comment on above: Performed By: #### L [id number] #### Supply Officer: JUSTICE ABDULLAHI ([id number]) [facility] (SBHLAB) [address] [place] [address] Laboratory - Chemistry and C hemistry - challengeon 07-14-2024 Glucose [Mass/Vol] 288 mg/dL High 70 - 100 mg/dL [facility] Glucose [Mass/Vol] 263 mg/dL High 70 - 100 mg/dL [facility] Glucose [Mass/Vol] 202 mg/dL High 70 - 100 mg/dL [facility] Glucose [Mass/Vol] 125 mg/dL High 70 - 100 mg/dL [facility] No Panel Informationon 07-14 Interpretation and review of laboratory results Abnormal [facility] Performed by: [facility], [address] [place] [id number] CLIA ID: [id number] [facility] Livra Panels [facility] Interpretation and review of laboratory results Abnormal [facility] Performed by: [facility], [address] [place] [id number] CLIA ID: [id number] [facility] Interpretation and review of laboratory results Abnormal [facility] Performed by: [facility], [address] [place] [id number] CLIA ID: [id number] [facility] Livra Panels [facility] Interpretation and review of laboratory results Abnormal [facility] Performed by: [facility], [address] [place] [id number] CLIA ID: [id number] [facility] Progress Noteon 07-14-2024 Progress Note OCCUPATIONAL THERAPY [facility] Treatment Note Name/MRN: Ana Lopes ([id number]) Date of : 1945 Age: 79 y.o. Room/Bed: [facility] A Visit #: 2 out of 7 visits Discharge Recommendation: Retirement Facility Equipment Needed: No Prior Level of Function Prior Level of ADL Function: Independent Prior Level of Mobility: Independent; Device: Front wheeled walker and Wheelchair - manual FWW for short distances, W/c for longer distances. Prior Level of Transfers: Independent Assessment Pt tolerated session fairly well and continues to improve with OT POC. Pt completed bed mobility with SBA-Min A and toileting tasks with CGA. She performed STS transfers, stand step transfer, BSC transfer, and standing balance with CGA. She is limited by impaired strength, balance, and endurance. Pt would continue to benefit from skilled OT services in order to increase safety and improve functional activity tolerance necessary for ADL task completion. OT rec is SNF upon planned discharge. Subjective Pt supine in bed upon arrival, pleasant and agreeable. Per RN, pt okay to see. Pain: Pt denies any current pain. Medical Precautions: No active isolations Proper PPE donned/doffed in accordance with facility standards. Fall Risk: Cherry Fall Risk Score: 85 (High Risk) Precautions/Restrictio ns: N/A Family/Caregiver Present: none Objective ADLs Toileting: Contact Guard Pt completed toileting tasks at BS with CGA, she completed standing pericare. CGA for stability in standing while completing hygiene. Bed Mobility Supine to sit: SBA Sit to supine: Min Assist Pt completed bed mobility from supine to EOB with SBA, HOB elevated and with use of bed rails. Increased time to complete. She required Min A to return to supine for light mgmt of BLEs back into bed. Denied dizziness with positional changes. Transfers/Mobility Sit to stand: Contact Guard Stand to sit: Contact Guard Stand step: Contact Guard Bedside commode: Contact Guard Standing balance: Contact Guard Pt performed STS transfers to/from EOB to FWW with CGA, VC's for hand placement for push up from/reach back to seated surfaces with fair carry over. CGA for stand step transfer to BSC, heavy reliance on FWW. CGA for steadiness. VC's for sequencing/device mgmt with fair carry over. CGA for [place] to[place] [facility] she demo'd good hand placement for push up from/reach back to arms of [facility]. Pt completed standing balance at FWW for approx 2 min with CGA, she demo'd increased reliance on FWW. Slight instability but no true LOB noted. Device(s) used: Front wheeled walker Cognition -WFL Plan Continue acute OT per plan of care. Safety/Education Safety Safety Devices in place: All fall risk precautions in place, call light within reach, left in bed, gait belt, patient at risk for falls, nurse notified, and no alarms engaged upon entry Restraints: No Education Education Given To: patient Education Provided: OT Role, Plan of Care, ADL Adaptive Strategies, Transfer Training, Energy Conservation, Fall Prevention Education, Discharge Recommendations, and Benefits of Increasing Activity Education Method: Verbal, Demonstration, and Teach Back Barriers to Learning: None Education Outcome: Verbalized Understanding, Demonstrated Understanding, and Continued Education Needed AM-PAC AM-PAC Inpatient Daily Activity Raw Score: 16 ADL Inpatient CMS G-Code Modifier: CK Goals Patient Stated Goal: none stated at this time. Encounter Problems Encounter Problems (Active) Dressing Upper Extremities Patient will complete upper body dressing MOD I (Not Addressed) Start: 07/09/24 Expected End: 07/19/24 Dressings Lower Extremities Patient will dress lower body MOD I (Not Addressed) Start: 07/09/24 Expected End: 07/19/24 Mobility Patient will demonstrate functional mobility with MOD I And FWW (Progressing) Start: 07/09/24 Expected End: 07/19/24 Therapeutic Exercise Pt will demo good participation in BUE exercises to increase endurance and strength for participation in ADL tasks. (Not Addressed) Start: 07/09/24 Expected End: 07/19/24 Toileting Patient will complete toileting tasks at standard toilet with modified independence. (Progressing) Start: 07/09/24 Expected End: 07/19/24 Transfers Patient will complete functional transfer with rolling walker with modified independence in order to prepare for ambulation. (Progressing) Start: 07/09/24 Expected End: 07/19/24 Therapy Time Individual Co-treatment Time In 1018 Time Out 1042 Minutes 24 Timed Code Treatment Minutes: 24 Minutes (1 ADL, 1 THER ACT) CRISTINO Palacio Normal [facility] Progress Note PHYSICAL THERAPY [facility] Treatment Note Name/MRN: Ana Lopes ([id number]) Date of : 1945 Age: 79 y.o. Room/Bed: B4464/B4464 A Visit #: 2 out of 7 Discharge Recommendation: Retirement Facility Other: TBD at next leve of care Assessment Pt demos minimal progress toward therapy goals. Pt requires SBA to min A for bed mobility, min A for functional transfers and lateral steps EOB. Pt is currently limited by weakness, endurance, fatigue and will benefit from acute skilled PT to address current deficits. Recommendation for SNF remains appropriate. Subjective Pt pleasant and agreeable to therapy session Pain: Pt denies any current pain. Medical Precautions: No active isolations Proper PPE donned/doffed in accordance with facility standards. Fall Risk: Cherry Fall Risk Score: 85 (High Risk) Precautions/Restrictio ns: N/A Overall Cognitive Status: WFL Overall Orientation Status: Oriented x4 Family/Caregiver Present: none Objective Bed Mobility Supine to sit: SBA Sit to supine: Min Assist Pt completes supine->sit at SBA with HOB elevated and use of bed rails. Increased time and effort required to complete. Pt returns to supine requiring min A x1 to elevate LLE into bed with cues for positioning. Transfers/Mobility Sit to stand: Min Assist Stand to sit: Min Assist Pt completes x2 sit<->stand transfers from EOB to standard walker. Pt requires min A x1 to elevate and assist in controlled descent. Cues provided for hand placement when descending with fair carryover. Lateral steps: Pt completes ~4 lateral steps EOB requiring min A x1 for weightshifting and walker management. X2 bouts with seated rest break between trials. Device(s) used: Standard walker Plan Continue acute PT per plan of care. Safety/Education Safety Safety Devices in place: All fall risk precautions in place, call light within reach, left in bed, gait belt, patient at risk for falls, and no alarms engaged upon entry Restraints: N/A Education Education Given To: patient Education Provided: PT Role, PT Goals, Plan of Care, Transfer Training, Energy Conservation, Equipment, Discharge Recommendations, and Benefits of Increasing Activity Education Method: Verbal and Demonstration Barriers to Learning: None Education Outcome: Verbalized Understanding, Demonstrated Understanding, and Continued Education Needed Outcome Measures AM-PAC AM-PAC Inpatient Mobility Raw Score (No Stairs) : 14 Goals Patient Stated Goal: pt did not state Encounter Problems Encounter Problems (Active) Balance Patient will maintain dynamic standing balance for 5 minutes with modified independence in order to demonstrate decreased risk of falling. (Not Addressed) Start: 07/09/24 Expected End: 07/16/24 Exercise Patient will complete lower extremity exercises for 1-2 sets / 10 reps in order to improve strength and activity tolerance for mobility. (Not Addressed) Start: 07/09/24 Expected End: 07/16/24 Mobility Patient will ambulate 25 feet x 2 with modified independence and rolling walker in order to improve safety and independence with mobility. (Progressing) Start: 07/09/24 Expected End: 07/16/24 Patient will propel the wheelchair for 100 ft and modified independence in order to improve safety and independence with functional mobility. (Not Addressed) Start: 07/09/24 Expected End: 07/16/24 Transfers Patient will perform bed mobility with modified independence in order to improve independence and prepare for out of bed mobility. (Progressing) Start: 07/09/24 Expected End: 07/16/24 Patient will complete functional transfers with rolling walker with modified independence in order to prepare for ambulation. (Progressing) Start: 07/09/24 Expected End: 07/16/24 Therapy Time Individual Co-treatment Time In 0935 Time Out 0945 Minutes 10 Timed Code Treatment Minutes: 8 Minutes (ther act x1) Betzaida Johnson, PT [facility] Progress Note [facility], Pulmonary Medicine [address] [place] [id number] Patient - Ana Lopes, Age - 79 y.o. - 1945 Room Number - [id number] A Consulting - Ba Clement MD [phone] Date of Admission - 07/07/2024 2:12 PM Hospital Day - 7 Chief Complaint Ana Lopes is a 79 y.o. female who presented with chief complaint of altered mental status. Pulmonary following for pulmonary edema Hx Seizure disorder (on Keppra), CHB s/p PPM, reported COPD (no PFT, on Anoro), chronic respiratory failure (2-3 liters NC), prior tobacco use, obesity and MARY not currently using PAP therapy. Interval history Patient awake lying in bed watching TV. States her breathing is better today. Reports occasional productive cough. On 2 L nasal cannula. No new overnight concerns. A pertinent review of systems was performed and was otherwise non-contributory except as detailed in subjective section above. Objective Vitals: BP 105/55 (BP Location: Right arm, Patient Position: Lying) Pulse 64 Temp (!) 35.9 ?C (96.7 ?F) (Temporal) Resp 18 Ht 5' 4" (1.626 m) Wt 235 lb (107 kg) SpO2 94% BMI 40.34 kg/m? Pulse Ox: SpO2 Av.8 % Min: 94 % Max: 96 % Supplemental O2: O2 Flow Rate (L/min): 2 L/min I/O 24HR INTAKE/OUTPUT: No intake or output data in the 24 hours ending 07/14/24 0937 Exam Physical Exam Vitals and nursing note reviewed. Constitutional: General: She is not in acute distress. Appearance: She is obese. HENT: Head: Normocephalic and atraumatic. Nose: Nose normal. No congestion or rhinorrhea. Eyes: General: No scleral icterus. Conjunctiva/sclera: Conjunctivae normal. Pupils: Pupils are equal, round, and reactive to light. Cardiovascular: Rate and Rhythm: Normal rate and regular rhythm. Pulmonary: Effort: Pulmonary effort is normal. No respiratory distress. Breath sounds: No stridor. Rales present. No wheezing or rhonchi. Chest: Chest wall: No tenderness. Musculoskeletal: Right lower leg: No edema. Left lower leg: No edema. Neurological: General: No focal deficit present. Mental Status: She is alert and oriented to person, place, and time. Mental status is at baseline. Psychiatric: Mood and Affect: Mood normal. Behavior: Behavior normal. Thought Content: Thought content normal. Judgment: Judgment normal. Medications Current Medications aspirin, 81 mg, Oral, Daily atorvastatin, 80 mg, Oral, Daily cetirizine, 5 mg, Oral, Daily enoxaparin, 40 mg, SubCUTAneous, Daily furosemide, 20 mg, Oral, Daily Glycopyrrolate-Formote rol, 2 puff, Inhalation, BID guaiFENesin, 600 mg, Oral, BID influenza, 0.5 mL, IntraMUSCular, Prior to discharge insulin lispro, 0-12 Units, SubCUTAneous, TID WC And insulin lispro, 0-12 Units, SubCUTAneous, Nightly ipratropium-albuterol, 3 mL, Nebulization, TID levETIRAcetam, 750 mg, Oral, BID predniSONE, 20 mg, Oral, Daily PRN Mediations PRN medications: acetaminophen OR acetaminophen, dextrose, dextrose, glucagon (rDNA), glucose, ondansetron ODT OR ondansetron, polyethylene glycol (PEG) 3350 Labs CBC Results from last 7 days Lab Units 07/14/24 0500 WBC AUTO 10*3/uL 9.2 HEMOGLOBIN g/dL 11.3* HEMATOCRIT % 35.7 PLATELETS 10*3/uL 273 BMP: Results from last 7 days Lab Units 07/14/24 0500 07/12/24 0411 07/11/24 0235 SODIUM mmol/L 139 141 137 POTASSIUM mmol/L 4.1 4.1 4.1 CHLORIDE mmol/L 100 102 100 CO2 mmol/L 31 29 30 BUN mg/dL 24* 21 21 CREATININE mg/dL 0.70 0.70 0.74 GLUCOSE mg/dL 129* 126* 124* CALCIUM mg/dL 9.3 9.2 9.0 LIVER PROFILE Results from last 7 days Lab Units 07/11/24 0235 07/10/24 0549 07/09/24 0419 ALK PHOS U/L 81 78 77 BILIRUBIN TOTAL mg/dL 0.3 0.4 0.5 PROTEIN TOTAL g/dL 6.8 6.7 6.5 ALT U/L 6 <6 <6 AST U/L 19 18 21 Cultures COVID/Flu/RSV: Negative Respiratory pathogens PCR: Negative Urine antigens: Negative Urine culture: + E. Coli, ESBL Blood cultures: NGTD x 48 hours MRSA PCR: negative Radiology CXR 07/13/24: MPRESSION: Lines, tubes, and devices: Unchanged dual chamber pacemaker. Lungs and pleura: Likely underlying chronic interstitial coarsening. Patchy opacities in the right upper lung and left lower lobe are similar compared to prior exam. No sizable pleural effusion or pneumothorax. Cardiomediastinal silhouette: Stable cardiomediastinal silhouette. Other: Degenerative changes of the spine and shoulders CT chest 07/08/24: Impression: Suspected pulmonary edema, superimposed on chronic interstitial changes, scarring/fibrosis. Short-term interval follow-up recommended. Cardiomegaly with cardiac pacemaker. Slightly enlarged main pulmonary artery, which may be seen with pulmonary arterial hypertension Echocardiogram 07/09/24: Left Ventricle: Left ventricle is mildly dilated. Normal wall thickness. Mildly reduced left ventricular systoli (more content not included)... Normal [facility] 30on 07-13-2024 30 Problem: Knowledge Deficit Goal: Patient/family/caregiv er demonstrates understanding of disease process, treatment plan, medications, and discharge instructions Outcome: Progressing Problem: Problem Interventions Goal: Promote nutritional intake Outcome: Progressing Normal [facility] [id number] 07-13-2024 [id number] IV Lasix changed to PO, pt stated breathing is much better". PNA testing all neg, atb DC. Will need updated PT and OT notes to submit for [facility] insurance auth. [facility] will continue to follow. Normal [facility] Laboratory - Chemistry and C hemistry - challengeon 07-13-2024 Glucose [Mass/Vol] 248 mg/dL High 70 - 100 mg/dL [facility]ra Panels Glucose [Mass/Vol] 258 mg/dL High 70 - 100 mg/dL [facility] Pan[facility] Glucose [Mass/Vol] 158 mg/dL High 70 - 100 mg/dL [facility] Panels Glucose [Mass/Vol] 111 mg/dL High 70 - 100 mg/dL [facility]ra Panels No Panel Informationon 07-13 Interpretation and review of laboratory results Abnormal [facility] Per[facility] by: [facility], [address] [place] [id number] CLIA ID: [id number] [facility] Livra Panels [facility] Interpretation and review of laboratory results Abnormal [facility] Performed by: [facility], [address] [facility] [address] CLIA ID: [id number] [facility] Livra Panels [facility] Interpretation and review of laboratory results Abnormal [facility] Performed by: [facility], [address] [facility] [address] CLIA ID: [id number] [facility] Livra Panels [facility] Interpretation and review of laboratory results Abnormal [facility] Performed by: [facility], [address] [facility] [address] CLIA ID: [id number] [facility] Progress Noteon 07-13-2024 Progress Note Speech-Language Pathology SPEECH LANGUAGE PATHOLOGY [facility] Dysphagia Treatment Note Patient Name: Ana Lopes Evaluation Date: 07/13/2024 Date of : 1945 Admission Date: 07/07/2024 2:12 PM Age: 79 y.o. Room[facility]Bed: [facility] A Subjective Patient alert and cooperative. Seen semi-upright in bed. Answers all basic questions with clear vocal quality. Follows all basic commands. No visitors at bedside. Current Diet: Dietary Orders (From admission, onward) Start Ordered 07/13/24 1015 Adult diet Easy to Chew; 5 carb choices (75 gm/meal) Diet effective now Comments: CHOPPED MEATS Question Answer Comment Diet type Easy to Chew Carbohydrate restriction: 5 carb choices (75 gm/meal) 07/13/24 1014 Aspiration Precautions: - Upright positioning for all PO intake - Small bites/sips - Alternate solid and liquids as needed - Consistent mouth care Oxygen: Oxygen Therapy: Supplemental oxygen O2 Delivery Method: Nasal cannula O2 Flow Rate (L/min): 2 L/min Pt was talking about previous toileting needs. Pain: Pt denies any current pain. PPE Worn: surgical mask, gloves Objective & Assessment Dysphagia Treatment Dysphagia Activity 1: Assess tolerance of recommended diet and advanced diet trials. Pt with appropriate tolerance of easy to chew/soft diet. "I don't eat meat" She does complain about certain foods. Agree to small trial of more cracker with peanut butter. +taking very small bites, chewing is prolonged, however adequate with soft foods for ease and safety. Feel pt is at baseline function. Edentulous and unable to chew if food if regular/hard. Plan & Recommendations Plan: Goals met. Recommend Easy to chew solids (chopped meats) and Thin liquids and meds as tolerated and the following precautions: - Upright positioning for all PO intake - PO only when fully alert - Alternate solid and liquids as needed - Consistent mouth care D/C Recommendations: No follow up therapy recommended post discharge Education Education Given: swallowing strategies, diet recommendations Given To: patient Response: verbalizes understanding Goals Patient Stated Goal: To eat pizza, I like pizza. Encounter Problems Encounter Problems (Resolved) Swallowing Patient will tolerate the least restrictive diet consistency to allow for safe consumption of daily meals (Completed) Start: 07/08/24 Expected End: 07/22/24 Resolved: 07/13/24 Patient will demonstrate safe swallowing Intervention/technique s (Completed) Start: 07/08/24 Expected End: 07/22/24 Resolved: 07/13/24 Therapy Time SENIOR RADIATION THERAPIST Individual Minutes Time In: 1429 Time Out: 1440 Minutes: 11 Ena Dsouza, VALERIANO [facility] Progress Note Nutrition Assessment Type and Reason for Visit: Reassess Nutrition Recommendations/Plan: Continue with Adult diet Easy to Chew; 5 carb choices (75 gm/meal). Will send chopped meats. Please document pt's PO intakes via flowsheet to accurately assess PO intake adequacy. ONS not currently indicated; PO intakes are adequate. Monitor intakes, weights, and labs weekly. RD will follow. 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 Tried to assure pt that she is on solid foods. Pt stated that she does not like receiving ground meats. Per SENIOR RADIATION THERAPIST recommendation on 07/09, recommended Easy to Chew with chopped meats; will modify to reflect the same in order to encourage PO intakes. Pt was sitting on the BSC during RD visit this AM, so RD kept interview brief to give pt privacy. Last documented BM prior to today was 07/06 (7 days if accurate) Estimated Daily Nutrient Needs: Energy Requirements Based On: Kcal/kg Weight Used for Energy Requirements: [place] Weight for Energy Calculation (kg): 55 kg Total Energy Requirements (kcals/day): 5437-1071 (25-30 kcal/kg IBW) Weight Used for Protein Requirements: [place] Weight in Kg Used for Protein Requirements: 55 kg Estimated Total Protein (g/day): 55-83 (1.0-1.5 g protein/kg IBW) Estimated Daily Total Fluid (ml/day): per MD Nutrition Related Findings: no edema; Glucose 126, 124, 120, Hgb 12.0, Hct 37.9, albumin 2.7, Hgb A1c 6.0% (07/08/24) Wound Type: (red coccyx, ab fold) Current Nutrition Therapies: Adult diet Easy to Chew; 5 carb choices (75 gm/meal) Current Oral Intake Average Meal Intake: 76-100%, 51-75% Average Supplements Intake: None Ordered Anthropometric Measures: Height: 162.6 cm (5' 4") Current Body Weight: 107 kg (235 lb) Weight Source: Bed Scale Admission Body Weight: 103 kg (228 lb) (stated) Usual Body Weight: 103 kg (228 lb) (per EMR--> 220# 10/03/23 and 10/15/23; 229.5# 12/28/23. per SNF 28# on 06/11/24) % Weight Change (Calculated): -1.2 [place] Body Weight (lbs) (Calculated): 120 lbs [place] Body Weight (Kg) (Calculated): 55 kg % [place] Body Weight (Calculated): 195.8 % BMI (kg/m2) (Calculated): 40.3 Weight Adjustment For: No Adjustment BMI Categories: Obese Class 3 (BMI 40.0 or greater) Nutrition Diagnosis: Altered nutrition-related lab values related to endocrine dysfuntion as evidenced by lab values Biting/chewing (masticatory) difficulty related to partial or complete edentulism as evidenced by poor dentition, other (comment) (on Easy to Chew diet) Nutrition Interventions: Nutrition Education/Counseling: No recommendation at this time Coordination of Nutrition Care: Continue to monitor while inpatient Plan of Care discussed with: Patient Goals: Previous Goal Met: Progressing toward Goal(s) Goals: PO intake 75% or greater, by next RD assessment, other (specify) Specify Other Goals: Will tolerate diet textures with ease of mastication Nutrition Monitoring and Evaluation: Behavioral-Environment al Outcomes: None Identified Food/Nutrient Intake Outcomes: Diet Advancement/Tolerance, Food and Nutrient Intake Physical Signs/Symptoms Outcomes: Biochemical Data, GI Status, Nausea or Vomiting, Fluid Status or Edema, Nutrition Focused Physical Findings, Skin, Weight Discharge Planning: Continue current diet Darin Dumont RD Contact: *[phone] or via Secure Chat [facility] Progress Note [facility], Pulmonary Medicine [address], [facility] [id number] Patient - Ana Lopes, Age - 79 y.o. - 1945 Room Number - [id number] A Consulting - Ba Clement MD [facility] [phone] Date of Admission - 07/07/2024 2:12 PM Hospital Day - 6 Chief Complaint Ana Lopes is a 79 y.o. female who presented with chief complaint of altered mental status. Pulmonary following for pulmonary edema Hx Seizure disorder (on Keppra), CHB s/p PPM, reported COPD (no PFT, on Anoro), chronic respiratory failure (2-3 liters NC), prior tobacco use, obesity and MARY not currently using PAP therapy. Interval history Patient awake lying in bed receiving am breathing treatment. Reports increased cough through the night. Appears comfortable and in no acute distress. On 2 liters NC. Declined PAP last night. No additional concerns at this time. A pertinent review of systems was performed and was otherwise non-contributory except as detailed in subjective section above. Objective Vitals: BP 157/95 (BP Location: Left arm, Patient Position: Lying) Pulse 74 Temp 36.1 ?C (96.9 ?F) (Temporal) Resp 18 Ht 5' 4" (1.626 m) Wt 235 lb 14.3 oz (107 kg) Comment: Bed Scale SpO2 95% BMI 40.49 kg/m? Pulse Ox: SpO2 Av.8 % Min: 90 % Max: 97 % Supplemental O2: O2 Flow Rate (L/min): 2 L/min I/O 24HR INTAKE/OUTPUT: Intake/Output Summary (Last 24 hours) at 07/13/2024 0908 Last data filed at 07/12/2024 2213 Gross per 24 hour Intake 390 ml Output -- Net 390 ml Exam Physical Exam Vitals and nursing note reviewed. Constitutional: General: She is not in acute distress. Appearance: She is obese. HENT: Head: Normocephalic and atraumatic. Nose: Nose normal. No congestion or rhinorrhea. Eyes: General: No scleral icterus. Conjunctiva/sclera: Conjunctivae normal. Pupils: Pupils are equal, round, and reactive to light. Cardiovascular: Rate and Rhythm: Normal rate and regular rhythm. Pulmonary: Effort: Pulmonary effort is normal. No respiratory distress. Breath sounds: No stridor. Wheezing and rales present. No rhonchi. Chest: Chest wall: No tenderness. Musculoskeletal: Right lower leg: No edema. Left lower leg: No edema. Neurological: General: No focal deficit present. Mental Status: She is alert and oriented to person, place, and time. Mental status is at baseline. Psychiatric: Mood and Affect: Mood normal. Behavior: Behavior normal. Thought Content: Thought content normal. Judgment: Judgment normal. Medications Current Medications aspirin, 81 mg, Oral, Daily atorvastatin, 80 mg, Oral, Daily cetirizine, 5 mg, Oral, Daily enoxaparin, 40 mg, SubCUTAneous, Daily [Held by provider] furosemide, 20 mg, Oral, Daily Glycopyrrolate-Formote rol, 2 puff, Inhalation, BID guaiFENesin, 600 mg, Oral, BID influenza, 0.5 mL, IntraMUSCular, Prior to discharge insulin lispro, 0-12 Units, SubCUTAneous, TID WC And insulin lispro, 0-12 Units, SubCUTAneous, Nightly ipratropium-albuterol, 3 mL, Nebulization, TID levETIRAcetam, 750 mg, Oral, BID predniSONE, 20 mg, Oral, Daily PRN Mediations PRN medications: acetaminophen OR acetaminophen, dextrose, dextrose, glucagon (rDNA), glucose, ondansetron ODT OR ondansetron, polyethylene glycol (PEG) 3350 Labs CBC Results from last 7 days Lab Units 07/12/24 0411 WBC AUTO 10*3/uL 8.7 HEMOGLOBIN g/dL 12.0 HEMATOCRIT % 37.9 PLATELETS 10*3/uL 270 BMP: Results from last 7 days Lab Units 07/12/24 0411 07/11/24 0235 07/10/24 0549 SODIUM mmol/L 141 137 139 POTASSIUM mmol/L 4.1 4.1 3.9 CHLORIDE mmol/L 102 100 104 CO2 mmol/L 29 30 28 BUN mg/dL 21 21 14 CREATININE mg/dL 0.70 0.74 0.77 GLUCOSE mg/dL 126* 124* 120* CALCIUM mg/dL 9.2 9.0 9.0 LIVER PROFILE Results from last 7 days Lab Units 07/11/24 0235 07/10/24 0549 07/09/24 0419 ALK PHOS U/L 81 78 77 BILIRUBIN TOTAL mg/dL 0.3 0.4 0.5 PROTEIN TOTAL g/dL 6.8 6.7 6.5 ALT U/L 6 <6 <6 AST U/L 19 18 21 Cultures COVID/Flu/RSV: Negative Respiratory pathogens PCR: Negative Urine antigens: Negative Urine culture: + E. Coli, ESBL Blood cultures: NGTD x 48 hours MRSA PCR: negative Radiology CXR 07/13/24: - Ordered, pending CT chest 07/08/24: Impression: Suspected pulmonary edema, superimposed on chronic interstitial changes, scarring/fibrosis. Short-term interval follow-up recommended. Cardiomegaly with cardiac pacemaker. Slightly enlarged main pulmonary artery, which may be seen with pulmonary arterial hypertension Echocardiogram 07/09/24: Left Ventricle: Left ventricle is mildly dilated. Normal wall thickness. Mildly reduced left ventricular systolic function. The EF by visual approximation is 45%. Mild hypokinesis of the following segments: mid anteroseptal. Indeterminate diastolic function due to poor image quality. Right Ventricle: Not well (more content not included)... Normal [facility] XR CHEST 1 VIEWon 07-13-2024 XR CHEST 1 VIEW Patient Name: ANA LOPES : 1945 [facility]#: [id number] Exam Date/Time: 07/13/2024 09:24 Procedure: XR CHEST 1 VIEW Ordering Provider: LEUNG HEIDI Reason For Exam: shortness of breath, worsening cough EXAMINATION: CHEST RADIOGRAPH (SINGLE VIEW AP OR PA) Clinical History: shortness of breath, worsening cough Comparison: AP chest radiograph 07/11/2024 RESULT: See impression IMPRESSION: Lines, tubes, and devices: Unchanged dual chamber pacemaker. Lungs and pleura: Likely underlying chronic interstitial coarsening. Patchy opacities in the right upper lung and left lower lobe are similar compared to prior exam. No sizable pleural effusion or pneumothorax. Cardiomediastinal silhouette: Stable cardiomediastinal silhouette. Other: Degenerative changes of the spine and shoulders Report Dictated on Electronically Signed By: Gerard An MD Electronically Signed Date/Time: 07/13/2024 10:20 AM EST Congested cough; follow up pneumonia Normal [facility] XR Chest Single viewon 07-13 Lines, tubes, and devices: Unchanged dual chamber pacemaker. Lungs and pleura: Likely underlying chronic interstitial coarsening. Patchy opacities in the right upper lung and left lower lobe are similar compared to prior exam. No sizable pleural effusion or pneumothorax. Cardiomediastinal silhouette: Stable cardiomediastinal silhouette. Other: Degenerative changes of the spine and shoulders Report Dictated on Electronically Signed By: Gerard An MD Electronically Signed Date/Time: 07/13/2024 10:20 AM [facility] Patient Name: ANA LOPES : 1945 Exam Date/Time: 07/13/2024 09:24 Procedure: XR CHEST 1 VIEW Ordering Provider: LEUNG HEIDI Reason For Exam: shortness of breath, worsening cough EXAMINATION: CHEST RADIOGRAPH (SINGLE VIEW AP OR PA) Clinical History: shortness of breath, worsening cough Comparison: AP chest radiograph 07/11/2024 RESULT: See impression [facility] Gerard An MD - 07/13/2024 Patient Name: ANA LOPES : 1945 Exam Date/Time: 07/13/2024 09:24 Procedure: XR CHEST 1 VIEW Ordering Provider: LEUNG HEIDI Reason For Exam: shortness of breath, worsening cough EXAMINATION: CHEST RADIOGRAPH (SINGLE VIEW AP OR PA) Clinical History: shortness of breath, worsening cough Comparison: AP chest radiograph 07/11/2024 RESULT: See impression IMPRESSION: Lines, tubes, and devices: Unchanged dual chamber pacemaker. Lungs and pleura: Likely underlying chronic interstitial coarsening. Patchy opacities in the right upper lung and left lower lobe are similar compared to prior exam. No sizable pleural effusion or pneumothorax. Cardiomediastinal silhouette: Stable cardiomediastinal silhouette. Other: Degenerative changes of the spine and shoulders Report Dictated on Electronically Signed By: Gerard An MD Electronically Signed Date/Time: 07/13/2024 10:20 AM EST [facility] Radiology Study observation (narrative) [facility] BASIC METABOLIC PANELon 01-0 Anion gap [Moles/Vol] 10 mmol/L Normal 3-13 [facility] Comment on above: Performed By: #### L [id number] ####Supply Officer: JUSTICE ABDULLAHI ([phone])[facility] ([facility])[address] Calcium [Mass/Vol] 9.2 mg/dL Normal 8.8-10.0 [facility] Comment on above: Performed By: #### L AB15 ####Supply Officer: JUSTICE ABDULLAHI ([phone])[facility] ([facility])[address] Chloride [Moles/Vol] 102 mmol/L Normal 98-107 [facility] Comment on above: Performed By: #### L AB15 ####Supply Officer: JUSTICE ABDULLAHI ([id number])[facility] ([facility])[address] CO2 [Moles/Vol] 29 mmol/L Normal 23-31 [facility] Comment on above: Performed By: #### L AB15 ####Supply Officer: JUSTICE ABDULLAHI ([id number])[facility] ([facility])155 [place] [address] [place] Creatinine [Mass/Vol] 0.70 mg/dL Normal 0.57-1.11 [facility] Comment on above: Performed By: #### L AB15 ####Supply Officer: JUSTICE ABDULLAHI ([phone])[facility] ([facility])[address] GLOMERULAR FILTRATION RATE ML/MIN/1.73 SQ M.PREDICTED 89.2 mL/min/1.73m*2 Normal >60.0 [facility] Comment on above: Result Comment: Calc ulation based on the Chronic Kidney Disease Epidemiology Collaboration (CKD-EPI) equation refit without adjustment for race Performed By: #### L AB15 ####Supply Officer: JUSTICE ABDULLAHI ([id number])[facility]ENT[facility] ([facility])[address] Glucose [Mass/Vol] 126 mg/dL High 82-115 [facility] Comment on above: Performed By: #### L AB15 ####Supply Officer: JUSTICE ABDULLAHI ([phone])[facility] ([facility])[address] Potassium [Moles/Vol] 4.1 mmol/L Normal 3.5-5.1 [facility] Comment on above: Result Comment: [facility] potassium values may be up to 0.5 mmol/L lower than serum values. Performed By: #### L AB15 ####Supply Officer: JUSTICE ABDULLAHI ([phone])[facility] ([facility])[address] Sodium [Moles/Vol] 141 mmol/L Normal 136-145 [facility] Comment on above: Performed By: #### L AB15 ####Supply Officer: JUSTICE ABDULLAHI ([id number])[facility] ([facility])[address] Urea nitrogen [Mass/Vol] 21 mg/dL Normal 9-23 [facility] Comment on above: Performed By: #### L AB15 ####Supply Officer: JUSTICE ABDULLAHI ([phone])[facility] ([facility])[address] Bacteria identified Cx Nom ( Bld)on 07-12-2024 Interpretation and review of laboratory results Normal [facility] Blood Collection Sit e: Left Arm [facility] Blood Collection Sit e: Right Arm [facility] Basic metabolic 1998 panelon 07-12-2024 Anion gap [Moles/Vol] 10 mmol/L 3 - 13 mmol/L [facility] Calcium [Mass/Vol] 9.2 mg/dL 8.8 - 10. 0 mg/dL [facility] Chloride [Moles/Vol] 102 mmol/L 98 - 10 7 mmol/L [facility] CO2 [Moles/Vol] 29 mmol/L 23 - 31 mmol/L [facility] Creatinine [Mass/Vol] 0.7 mg/dL 0.57 - 1.11 mg/dL [facility] GFR/1.73 sq M.predicted (S/P/Bld) [Vol rate/Area] 89.2 mL/min - PINF [facility] Comment on above: Calculation based on the Chronic Kidney Disease Epidemiology Collaboration (CKD-EPI) equation refit without adjustment for race Glucose [Mass/Vol] 126 mg/dL High 82 - 115 mg/dL [facility] Interpretation and review of laboratory results Abnormal [facility] Potassium [Moles/Vol] 4.1 mmol/L 3.5 - 5.1 mmol/L [facility] Comment on above: Plasma potassium guillermo ues may be up to 0.5 mmol/L lower than serum values. Sodium [Moles/Vol] 141 mmol/L 136 - 145 mmol/L [facility] Urea nitrogen [Mass/Vol] 21 mg/dL 9 - 23 mg/d L [facility] CBC (HEMOGRAM)on 07-12-2024 Erythrocyte distribution width (RBC) [Ratio] 15.4 % High 11.5-15.0 [facility] Comment on above: Performed By: #### L [id number] ####Supply Officer: JUSTICE ABDULLAHI ([id number])[facility] ([facility])[address] [place] [address] Hematocrit (Bld) [Volume fraction] 37.9 % Normal 35.0-47.0 [facility] Comment on above: Performed By: #### L [id number] ####Supply Officer: JUSTICE ABDULLAHI ([id number])[facility] ([facility])[address] [place] [address] Hemoglobin (Bld) [Mass/Vol] 12.0 g/dL Normal 11.7-16.0 [facility] Comment on above: Performed By: #### L [id number] ####Supply Officer: JUSTICE ABDULLAHI ([id number])[facility]ENTERRuth [facility]ENTER[facility] ([facility])[address] MCH (RBC) [Entitic mass] 29.3 pg Normal 26.0-34.0 [facility] Comment on above: Performed By: #### L [id number] ####Supply Officer: JUSTICE ABDULLAHI ([id number])[facility] ([facility])[address] MCHC 31.7 % Normal 30.5-36.0 [facility] Comment on above: Performed By: #### L [id number] ####Supply Officer: JUSTICE ABDULLAHI ([id number])[facility]ENTERRuth [facility] CENTERMichael ([facility])[address] MCV (RBC) [Entitic vol] 92.7 fL Normal 77.0-99.0 [facility] Comment on above: Performed By: #### L [id number] ####Supply Officer: JUSTICE ABDULLAHI ([phone])[facility] ([facility])[address] Platelet mean volume (Bld) [Entitic vol] 9.1 fL Normal 9.0-12.7 [facility] Comment on above: Performed By: #### L [id number] ####Supply Officer: JUSTICE ABDULLAHI ([id number])[facility] ([facility])[address] Platelets (Bld) [#/Vol] 270 10*3/uL Normal 140-440 [facility] Comment on above: Performed By: #### L [id number] ####Supply Officer: JUSTICE ABDULLAHI ([id number])[facility] ([facility])[address] RBC (Bld) [#/Vol] 4.09 10*6/uL Normal 3.80-5.20 [facility] Comment on above: Performed By: #### L [id number] ####Supply Officer: JUSTICE ABDULLAHI ([id number])[facility] ([facility])[address] [place] [address] WBC (Bld) [#/Vol] 8.7 10*3/uL Normal 3.6-10.7 [facility] Comment on above: Performed By: #### L [id number] ####Supply Officer: JUSTICE OSPINANARA ([id number])[facility] ([facility])[address] CBC panel Auto (Bld)on 07-12 Erythrocyte distribution width (RBC) [Ratio] 15.4 % High 11.5 - 15.0 % [facility] Hematocrit (Bld) [Volume fraction] 37.9 % 35.0 - 47.0 % [facility] Hemoglobin (Bld) [Mass/Vol] 12 g/dL 11.7 - 16.0 g/dL [facility] Interpretation and review of laboratory results Abnormal [facility] MCH (RBC) [Entitic mass] 29.3 pg 26. 0 - 34.0 pg [facility] MCHC (RBC) [Mass/Vol] 31.7 % 30.5 - 36.0 % [facility] MCV (RBC) [Entitic vol] 92.7 fL 77.0 - 99.0 fL [facility] Platelet mean volume (Bld) [Entitic vol] 9.1 fL 9.0 - 12.7 fL [facility] Platelets (Bld) [#/Vol] 270 10*3/uL 140 - 440 10*3/uL [facility] RBC (Bld) [#/Vol] 4.09 10*6/uL 3.80 - 5.2 0 10*6/uL [facility] WBC (Bld) [#/Vol] 8.7 10*3/uL 3.6 - 10.7 10*3/uL [facility] Laboratory - Chemistry and C hemistry - challengeon 07-12-2024 Glucose [Mass/Vol] 199 mg/dL High 70 - 100 mg/dL [facility] Glucose [Mass/Vol] 137 mg/dL High 70 - 100 mg/dL [facility] Glucose [Mass/Vol] 189 mg/dL High 70 - 100 mg/dL [facility] Glucose [Mass/Vol] 117 mg/dL High 70 - 100 mg/dL [facility] Laboratory - Microbiology an d Antimicrobial susceptibilityon 07-12-2024 Bacteria identified Cx Nom (Bld) No growth at 5 days [facility] No Panel Informationon 07-12 Interpretation and review of laboratory results Abnormal [facility] Performed by: [facility], [address] [place] [address], [facility] [address] CLIA ID: [id number] [facility] Interpretation and review of laboratory results Abnormal [facility] Performed by: [facility], [address] [facility], [facility] [address] CLIA ID: [id number] [facility] Interpretation and review of laboratory results Abnormal [facility] Performed by: [facility], [address] [facility], [facility] [address] CLIA ID: [id number] [facility] Interpretation and review of laboratory results Abnormal [facility] Performed by: [facility], [address] [place] [address], [facility] [address] CLIA ID: [id number] [facility] Progress Noteon 07-12-2024 Progress Note PHYSICAL THERAPY [facility] Treatment Note Name/MRN: Ana Lopes ([id number]) Date of : 1945 Age: 79 y.o. Room[facility]Bed: [facility] A Visit #: 1 out of 7 visits Discharge Recommendation: Retirement Facility Other[facility] Prior Level of Function Prior Level of ADL Function: Independent Prior Level of Mobility: Independent; Device: Front wheeled walker and Wheelchair - manual FWW for short distances, wheelchair for longer distances OOR Prior Level of Transfers: Independent Assessment Pt demonstrates fair tolerance to session. Pt completes bed mobility with Min A, transfers with CGA-Min A. Pt declines ambulation this session due to fatigue. Pt is limited by fatigue, weakness, and decreased activity tolerance. Pt will continue to benefit from skilled PT services to improve in overall safety and independence. Recommend SNF at discharge. Subjective Pt supine in bed, agreeable to session. Per RN, pt okay for therapy. Pain: Pt denies any current pain. Medical Precautions: No active isolations Proper PPE donned/doffed in accordance with facility standards. Fall Risk: Cherry Fall Risk Score: 70 (High Risk) Precautions/Restrictio ns: N/A Overall Cognitive Status: WFL Overall Orientation Status: Oriented x4 Family/Caregiver Present: none Objective Bed Mobility Supine to sit: Min Assist Sit to supine: Min Assist Pt completes supine to sit with HOB elevated and use of bedrail. Pt completes with increased time and effort. Pt requires Min A for assisting with lifting trunk upright. Pt completes sit to supine with Min A for assisting lifting B LE into bed. Transfers/Mobility Sit to stand: Contact Guard Stand to sit: Contact Guard Stand step: Contact Guard, Min Assist Bedside commode: Contact Guard Pt completes STS transfer from EOB to FWW with CGA. Pt requires cues for hand placement for transfers. Pt completes stand step transfer from EOB to BSC with FWW and CGA-Min A for balance. Increased flexed posture during transfer. Cues for safety with FWW management. Pt completes transfer from BSC to FWW with CGA. Pt able to complete toilet hygiene, but requires assist for overall completion. Device(s) used: Front wheeled walker Plan Continue acute PT per plan of care. Safety/Education Safety Safety Devices in place: All fall risk precautions in place, call light within reach, left in bed, gait belt, patient at risk for falls, nurse notified, and no alarms engaged upon entry Restraints: No Education Education Given To: patient Education Provided: PT Role, PT Goals, Plan of Care, Transfer Training, Discharge Recommendations, and Benefits of Increasing Activity Education Method: Verbal and Demonstration Barriers to Learning: None Education Outcome: Verbalized Understanding, Demonstrated Understanding, and Continued Education Needed Outcome Measures AM-PAC AM-PAC Inpatient Mobility Raw Score (No Stairs) : 14 Goals Patient Stated Goal: Patient states she wants to stop falling. Encounter Problems Encounter Problems (Active) Balance Patient will maintain dynamic standing balance for 5 minutes with modified independence in order to demonstrate decreased risk of falling. Start: 07/09/24 Expected End: 07/16/24 Exercise Patient will complete lower extremity exercises for 1-2 sets / 10 reps in order to improve strength and activity tolerance for mobility. Start: 07/09/24 Expected End: 07/16/24 Mobility Patient will ambulate 25 feet x 2 with modified independence and rolling walker in order to improve safety and independence with mobility. Start: 07/09/24 Expected End: 07/16/24 Patient will propel the wheelchair for 100 ft and modified independence in order to improve safety and independence with functional mobility. Start: 07/09/24 Expected End: 07/16/24 Transfers Patient will perform bed mobility with modified independence in order to improve independence and prepare for out of bed mobility. Start: 07/09/24 Expected End: 07/16/24 Patient will complete functional transfers with rolling walker with modified independence in order to prepare for ambulation. Start: 07/09/24 Expected End: 07/16/24 Therapy Time Individual Co-treatment Time In 0814 Time Out 0843 Minutes 29 Timed Code Treatment Minutes: 26 Minutes (2 theract) [place], PT Normal [facility] CBC W Auto Differential pane l (Bld)on 07-11-2024 Basophils (Bld) [#/Vol] 0.1 10*3/uL 0.0 - 0.2 10*3/uL [facility] Basophils/100 WBC (Bld) 0.7 % 0.0 - 2.0 % [facility] Eosinophils (Bld) [#/Vol] 0.9 10*3/uL High 0.0 - 0.5 10*3/uL [facility] Eosinophils/100 WBC (Bld) 10.2 % High 0.0 - 6.0 % [facility] Erythrocyte distribution width (RBC) [Ratio] 15.7 % High 11.5 - 15.0 % [facility] Hematocrit (Bld) [Volume fraction] 36 % 35.0 - 47.0 % [facility] Hemoglobin (Bld) [Mass/Vol] 11.6 g/dL Low 11.7 - 16.0 g/dL [facility] Immature granulocytes (Bld) [#/Vol] 0 10*3/uL NINF - 0.1 10*3/uL [facility] Immature granulocytes/100 WBC (Bld) 0.2 % 0.0 - 2.0 % [facility] Interpretation and review of laboratory results Abnormal [facility] Lymphocytes (Bld) [#/Vol] 3.1 10*3/uL 1.0 - 4.3 10*3/uL [facility] Lymphocytes/100 WBC (Bld) 34.4 % 15.0 - 45.0 % [facility] MCH (RBC) [Entitic mass] 30.2 pg 26. 0 - 34.0 pg [facility] MCHC (RBC) [Mass/Vol] 32.2 % 30.5 - 36.0 % [facility] MCV (RBC) [Entitic vol] 93.8 fL 77.0 - 99.0 fL [facility] Monocytes (Bld) [#/Vol] 0.9 10*3/uL 0.0 - 0.9 10*3/uL [facility] Monocytes/100 WBC (Bld) 9.3 % 5.0 - 13.0 % [facility] Neutrophils (Bld) [#/Vol] 4.1 10*3/uL 1.8 - 7.5 10*3/uL [facility] Neutrophils/100 WBC (Bld) 45.2 % 38.0 - 82.0 % [facility] Nucleated RBC/100 WBC (Bld) [Ratio] 0 % [facility] Platelet mean volume (Bld) [Entitic vol] 9 fL 9.0 - 12.7 fL [facility] Platelets (Bld) [#/Vol] 264 10*3/uL 140 - 440 10*3/uL [facility] RBC (Bld) [#/Vol] 3.84 10*6/uL 3.80 - 5.2 0 10*6/uL [facility] WBC (Bld) [#/Vol] 9.1 10*3/uL 3.6 - 10.7 10*3/uL [facility] CBC WITH AUTO DIFFERENTIALon 07-11-2024 Basophils (Bld) [#/Vol] 0.1 10*3/uL Normal 0.0-0.2 [facility] Comment on above: Performed By: #### L [id number] #### Supply Officer: JUSTICE ABDULLAHI ([phone]) [facility] ([facility]) [address] [place] [address] Basophils/100 WBC (Bld) 0.7 % Normal 0.0-2.0 [facility] Comment on above: Performed By: #### L [id number] #### Supply Officer: JUSTICE ABDULLAHI ([id number]) [facility] [place] ([facility]) [address] Eosinophils (Bld) [#/Vol] 0.9 10*3/uL High 0.0-0.5 [facility] Comment on above: Performed By: #### L [id number] #### Supply Officer: JUSTICE ABDULLAHI ([id number]) [facility] ([facility]) [address] Eosinophils/100 WBC (Bld) 10.2 % High 0.0-6.0 [facility] Comment on above: Performed By: #### L [id number] #### Supply Officer: JUSTICE ABDULLAHI ([id number]) [facility] ([facility]) [address] Erythrocyte distribution width (RBC) [Ratio] 15.7 % High 11.5-15.0 [facility] Comment on above: Performed By: #### L [id number] #### Supply Officer: JUSTICE ABDULLAHI ([id number]) [facility] ([facility]) [address] Hematocrit (Bld) [Volume fraction] 36.0 % Normal 35.0-47.0 [facility] Comment on above: Performed By: #### L [id number] #### Supply Officer: JUSTICE ABDULLAHI ([id number]) [facility] [address] [place] [address] Hemoglobin (Bld) [Mass/Vol] 11.6 g/dL Low 11.7-16.0 [facility] Comment on above: Performed By: #### L [id number] #### Supply Officer: JUSTICE ABDULLAHI ([phone]) [facility] [address] IMMATURE GRANS % 0.2 % Normal 0.0-2.0 [facility] Comment on above: Performed By: #### L [id number] #### Supply Officer: JUSTICE ABDULLAHI ([id number]) [facility] ([facility] [address] IMMATURE GRANS ABSOLUTE 0.0 10*3/uL Normal <0.1 [facility] Comment on above: Performed By: #### L [id number] #### Supply Officer: JUSTICE ABDULLAHI ([phone]) [facility] ([facility]) [address] Lymphocytes (Bld) [#/Vol] 3.1 10*3/uL Normal 1.0-4.3 [facility] Comment on above: Performed By: #### L [id number] #### Supply Officer: JUSTICE ABDULLAHI ([id number]) [facility] ([facility]) [address] Lymphocytes/100 WBC (Bld) 34.4 % Normal 15.0-45.0 [facility] Comment on above: Performed By: #### L [id number] #### Supply Officer: JUSTICE ABDULLAHI ([id number]) [facility] ([facility]) [address] MCH (RBC) [Entitic mass] 30.2 pg Normal 26.0-34.0 [facility] Comment on above: Performed By: #### L [id number] #### Supply Officer: JUSTICE ABDULLAHI ([id number]) [facility] ([facility]) [address] MCHC 32.2 % Normal 30.5-36.0 [facility] Comment on above: Performed By: #### L [id number] #### Supply Officer: JUSTICE ABDULLAHI ([phone]) [facility] ([facility]) [address] MCV (RBC) [Entitic vol] 93.8 fL Normal 77.0-99.0 S [facility] Comment on above: Performed By: #### L [id number] #### Supply Officer: JUSTICE ABDULLAHI ([id number]) [facility] ([facility]) [address] Monocytes (Bld) [#/Vol] 0.9 10*3/uL Normal 0.0-0.9 [facility] Comment on above: Performed By: #### L [id number] #### Supply Officer: JUSTICE ABDULLAHI ([phone]) [facility] ([facility]) [address] [place] [address] [place] Monocytes/100 WBC (Bld) 9.3 % Normal 5.0-13.0 [facility] Comment on above: Performed By: #### L [id number] #### Supply Officer: JUSTICE ABDULLAHI ([id number]) [facility] [place] ([facility]) [address] NEUTROPHILS ABSOLUTE 4.1 10*3/uL Normal 1.8-7.5 [facility] Comment on above: Performed By: #### L [id number] #### Supply Officer: JUSTICE ABDULLAHI ([id number]) [facility] [place] ([facility]) [address] Neutrophils/100 WBC (Bld) 45.2 % Normal 38.0-82.0 [facility] Comment on above: Performed By: #### L [id number] #### Supply Officer: JUSTICE ABDULLAHI ([id number]) [facility] ([facility]) [address] NRBC 0.0 /100 WBCs Normal 0.0-2.0 [facility] Comment on above: Performed By: #### L [id number] #### Supply Officer: JUSTICE ABDULLAHI ([id number]) [facility] [place] ([facility]) [address] [place] [address] [place] Platelet mean volume (Bld) [Entitic vol] 9.0 fL Normal 9.0-12.7 [facility] Comment on above: Performed By: #### L [id number] #### Supply Officer: JUSTICE ABDULLAHI ([id number]) [facility] ([facility]) [address] Platelets (Bld) [#/Vol] 264 10*3/uL Normal 140-440 [facility] Comment on above: Performed By: #### L [id number] #### Supply Officer: JUSTICE ABDULLAHI ([id number]) [facility] ([facility]) [address] RBC (Bld) [#/Vol] 3.84 10*6/uL Normal 3.80-5.20 [facility] Comment on above: Performed By: #### L [id number] #### Supply Officer: JUSTICE ABDULLAHI ([id number]) [facility] ([facility]) [address] WBC (Bld) [#/Vol] 9.1 10*3/uL Normal 3.6-10.7 [facility] Comment on above: Performed By: #### L [id number] #### Supply Officer: JUSTICE ABDULLAHI ([id number]) [facility] ([facility]) [address] COMPREHENSIVE METABOLIC PANE Jamie 07-11-2024 Albumin [Mass/Vol] 2.7 g/dL Low 3.4-4.8 [facility] Comment on above: Performed By: #### L [id number] #### Supply Officer: JUSTICE ABDULLAHI ([id number]) [facility] ([facility]) [address] ALP [Catalytic activity/Vol] 81 U/L Normal 40-150 [facility] Comment on above: Performed By: #### L [id number] #### Supply Officer: JUSTICE ABDULLAHI ([id number]) [facility] ([facility]) [address] ALT [Catalytic activity/Vol] 6 U/L Normal <30 [facility] Comment on above: Performed By: #### L [id number] #### Supply Officer: JUSTICE ABDULLAHI ([id number]) [facility] ([facility]) [address] [place], [place] [address] [place] [address] Anion gap [Moles/Vol] 7 mmol/L Normal 3-13 [facility] Comment on above: Performed By: #### L [id number] #### Supply Officer: JUSTICE ABDULLAHI ([id number]) [facility] ([facility]) [address] AST [Catalytic activity/Vol] 19 U/L Normal <34 [facility] Comment on above: Performed By: #### L [id number] #### Supply Officer: JUSTICE ABDULLAHI ([id number]) [facility] ([facility]) [address] Bilirubin [Mass/Vol] 0.3 mg/dL Normal <1.2 [facility] Comment on above: Performed By: #### L [id number] #### Supply Officer: JUSTICE ABDULLAHI ([phone]) [facility] ([facility]) [address] Calcium [Mass/Vol] 9.0 mg/dL Normal 8.8-10.0 [facility] Comment on above: Performed By: #### L [id number] #### Supply Officer: JUSTICE ABDULLAHI ([id number]) [facility] ([facility]) [address] [place] [address] [place] Chloride [Moles/Vol] 100 mmol/L Normal 98-107 [facility] Comment on above: Performed By: #### L [id number] #### Supply Officer: JUSTICE ABDULLAHI ([id number]) [facility] ([facility]) [address] [place] [address] [place] CO2 [Moles/Vol] 30 mmol/L Normal 23-31 [facility] Comment on above: Performed By: #### L [id number] #### Supply Officer: JUSTICE ABDULLAHI ([phone]) [facility] ([facility]) [address] [place] [address] [place] Creatinine [Mass/Vol] 0.74 mg/dL Normal 0.57-1.11 [facility] Comment on above: Performed By: #### L [id number] #### Supply Officer: JUSTICE ABDULLAHI ([id number]) [facility] ([facility]) [address] GLOMERULAR FILTRATION RATE ML/MIN/1.73 SQ M.PREDICTED 83.4 mL/min/1.73m*2 Normal >60.0 [facility] Comment on above: Result Comment: Calc ulation based on the Chronic Kidney Disease Epidemiology Collaboration (CKD-EPI) equation refit without adjustment for race Performed By: #### L [id number] #### Supply Officer: JUSTICE ABDULLAHI ([id number]) [facility] ([facility]) [address] [place] [address] Glucose [Mass/Vol] 124 mg/dL High 82-115 [facility] Comment on above: Performed By: #### L [id number] #### Supply Officer: JUSTICE ABDULLAHI ([id number]) [facility] ([facility]) [address] [place] [address] Potassium [Moles/Vol] 4.1 mmol/L Normal 3.5-5.1 [facility] Comment on above: Result Comment: [facility] potassium values may be up to 0.5 mmol/L lower than serum values. Performed By: #### L [id number] #### Supply Officer: JUSTICE ABDULLAHI ([phone]) [facility] ([facility]) [address] [place] [address] Protein [Mass/Vol] 6.8 g/dL Normal 6.4-8.3 [facility] Comment on above: Performed By: #### L [id number] #### Supply Officer: JUSTICE ABDULLAHI ([id number]) [facility] ([facility]) [address] [place] [address] Sodium [Moles/Vol] 137 mmol/L Normal 136-145 [facility] Comment on above: Performed By: #### L [id number] #### Supply Officer: JUSTICE ABDULLAHI ([id number]) [facility] ([facility]) [address] Urea nitrogen [Mass/Vol] 21 mg/dL Normal 9-23 [facility] Comment on above: Performed By: #### L [id number] #### Supply Officer: JUSTICE ABDULLAHI ([phone]) [facility] ([facility]) [address] Comprehensive metabolic 1998 panelon 07-11-2024 Albumin [Mass/Vol] 2.7 g/dL Low 3.4 - 4.8 g/dL [facility] ALP [Catalytic activity/Vol] 81 U/L 40 - 150 U/L [facility] ALT [Catalytic activity/Vol] 6 U/L NINF - 30 U/L [facility] Anion gap [Moles/Vol] 7 mmol/L 3 - 13 mmol/L [facility] AST [Catalytic activity/Vol] 19 U/L NINF - 34 U/L [facility] Bilirubin [Mass/Vol] 0.3 mg/dL NINF - 1.2 mg/dL [facility] Calcium [Mass/Vol] 9 mg/dL 8.8 - 10. 0 mg/dL [facility] Chloride [Moles/Vol] 100 mmol/L 98 - 10 7 mmol/L [facility] CO2 [Moles/Vol] 30 mmol/L 23 - 31 mmol/L [facility] Creatinine [Mass/Vol] 0.74 mg/dL 0.57 - 1.11 mg/dL [facility] GFR/1.73 sq M.predicted (S/P/Bld) [Vol rate/Area] 83.4 mL/min - PINF [facility] Comment on above: Calculation based on the Chronic Kidney Disease Epidemiology Collaboration (CKD-EPI) equation refit without adjustment for race Glucose [Mass/Vol] 124 mg/dL High 82 - 115 mg/dL [facility] Interpretation and review of laboratory results Abnormal [facility] Potassium [Moles/Vol] 4.1 mmol/L 3.5 - 5.1 mmol/L [facility] Comment on above: Plasma potassium guillermo ues may be up to 0.5 mmol/L lower than serum values. Protein [Mass/Vol] 6.8 g/dL 6.4 - 8.3 g/dL [facility] Sodium [Moles/Vol] 137 mmol/L 136 - 145 mmol/L [facility] Urea nitrogen [Mass/Vol] 21 mg/dL 9 - 23 mg/d L [facility] - Chemistry and C hemistry - challengeon 07-11-2024 Glucose [Mass/Vol] 196 mg/dL High 70 - 100 mg/dL [facility] Glucose [Mass/Vol] 144 mg/dL High 70 - 100 mg/dL [facility] Glucose [Mass/Vol] 192 mg/dL High 70 - 100 mg/dL [facility] Glucose [Mass/Vol] 122 mg/dL High 70 - 100 mg/dL [facility] - Drug toxicology on 07-11-2024 levETIRAcetam [Mass/Vol] 13.8 ug/mL [facility] Comment on above: Brivaracetam (Briviact(R), Rikelta(R)) exhibits significant cross-reactivity in the Levetiracetam (Keppra(R), Spritam(R)) immunoassay. If Brivaracetam has been prescribed, order test code 16826 Levetiracetam by LCMSMS. Test Performed by [facility], [facility], [address] [place] [id number] Scooter Hairston M.D., Ph.D., Director of Laboratories , CLIA [id number] No Panel Informationon 07-11 Interpretation and review of laboratory results Abnormal [facility] Performed by: [facility], [address] [place] [id number] CLIA ID: [id number] [facility] Interpretation and review of laboratory results Abnormal [facility] Performed by: [facility], [address] [place] [address] CLIA ID: [id number] [facility] Interpretation and review of laboratory results Abnormal [facility] Performed by: [facility], [address] [place] [address] CLIA ID: [id number] [facility] Interpretation and review of laboratory results Abnormal [facility] Performed by: [facility], [address] [facility] [address] CLIA ID: [id number] [facility] Progress Noteon 07-11-2024 Progress Note OCCUPATIONAL THERAPY [facility] Treatment Note Name/MRN: Ana Lopes ([id number]) Date of : 1945 Age: 79 y.o. Room/Bed: [facility] A Visit #: 1 out of 7 visits Discharge Recommendation: [facility] Facility Equipment Needed: No Prior Level of Function Prior Level of ADL Function: Independent Prior Level of Mobility: Independent; Device: Front wheeled walker and Wheelchair - manual FWW for short distances, W/c for longer distances. Prior Level of Transfers: Independent Assessment Pt in bed upon arrival, agreeable to OT tx. Pt was SBA-min assist for bed-mobility, CGA for STS, CGA for light mobility and CGA for functional transfers. Pt was CGA for LB pericare with increased time to complete. Pt is progressing well OT goals but still remains below baseline. She is limited by increased fatigue, weakness, and instability at this time. She would benefit from skilled OT services to adapt to deficits and increase Occupational Performance. Recommend plan discharge for SNF at this time. Subjective Ok to see for therapy. Pain: Pt denies any current pain. Medical Precautions: No active isolations Proper PPE donned/doffed in accordance with facility standards. Fall Risk: Cherry Fall Risk Score: 70 (High Risk) Precautions/Restrictio ns: N/A Family/Caregiver Present: none Objective ADLs LE Dressing: Dependent Toileting: Contact Guard Pt was dependent for donning socks d/t limited reach. Pt completed posterior hygiene and anterior in standing with increased time to complete. Bed Mobility Supine to sit: SBA Sit to supine: Min Assist HOB slightly elevated and use of bed-rails. Pt completed supine to sit with increased time to complete. No reports of dizziness with positional changes. Pt returned supine with min assist to elevate BL LE's into bed. Transfers/Mobility Sit to stand: Contact Guard Stand to sit: Contact Guard Stand step: Contact Guard Bedside commode: Contact Guard Standing balance: Contact Guard Functional mobility: Contact Guard Pt completed x2 STS to fww with CGA for steadiness with STS d/t increased fatigue. Pt completed stand step transfer to EOB with heavy reliance of fww and CGA for balance. Pt completed stand pivot transfer with CGA for steadiness and increased time to complete, v/c's for sequencing provided. Pt completed light mobility with CGA and fww. Device(s) used: Front wheeled walker Cognition wfl Plan Continue acute OT per plan of care. Safety/Education Safety Safety Devices in place: All fall risk precautions in place, call light within reach, left in bed, gait belt, patient at risk for falls, and nurse notified Restraints: No Education Education Given To: patient Education Provided: OT Role, Plan of Care, ADL Adaptive Strategies, Transfer Training, Equipment, Fall Prevention Education, Discharge Recommendations, and Benefits of Increasing Activity Education Method: Verbal, Demonstration, and Teach Back Barriers to Learning: None Education Outcome: Continued Education Needed AM-PAC AM-PAC Inpatient Daily Activity Raw Score: 16 ADL Inpatient CMS G-Code Modifier: CK Goals Patient Stated Goal: none stated at this time. Encounter Problems Encounter Problems (Active) Dressing Upper Extremities Patient will complete upper body dressing MOD I (Not Addressed) Start: 07/09/24 Expected End: 07/19/24 Dressings Lower Extremities Patient will dress lower body MOD I (Not Addressed) Start: 07/09/24 Expected End: 07/19/24 Mobility Patient will demonstrate functional mobility with MOD I And FWW (Progressing) Start: 07/09/24 Expected End: 07/19/24 Therapeutic Exercise Pt will demo good participation in BUE exercises to increase endurance and strength for participation in ADL tasks. (Not Addressed) Start: 07/09/24 Expected End: 07/19/24 Toileting Patient will complete toileting tasks at standard toilet with modified independence. (Progressing) Start: 07/09/24 Expected End: 07/19/24 Transfers Patient will complete functional transfer with rolling walker with modified independence in order to prepare for ambulation. (Progressing) Start: 07/09/24 Expected End: 07/19/24 Therapy Time Individual Co-treatment Time In 1257 Time Out 1322 Minutes 25 Timed Code Treatment Minutes: 25 Minutes (1 ADL, 1 ACT) JANAK Ellis/Ankur [facility] XR CHEST 1 VIEWon 07-11-2024 XR CHEST 1 VIEW Patient Name: ANA LOPES : 1945 Exam Date/Time: 07/11/2024 09:05 Procedure: XR CHEST 1 VIEW Ordering Provider: GARCIA ANGELA Reason For Exam: INCREASED COUGH EXAMINATION: XR chest AP. EXAM DATE AND TIME: 07/11/2024 9:05 AM EST INDICATION: INCREASED COUGH ADDITIONAL INFORMATION: 79-year-old female with increased cough presents for evaluation COMPARISON: Chest x-ray dated 07/10/2024 TECHNIQUE: Frontal view of the chest was obtained. FINDINGS: Lines/support devices: Unchanged left chest ICD. Cardiomediastinal silhouette: Within normal limits. Lungs/pleura: New patchy airspace opacities project over the right upper lobe. Stable appearance of medial left basilar patchy airspace opacities on a background of chronic lung changes. No pleural effusions or pneumothorax. Osseous structures: Unchanged. Other findings: None. IMPRESSION: New patchy airspace opacities projecting over the right upper lobe, suspicious for pneumonia. Report Dictated on Electronically Signed By: Burke Izaguirre MD Electronically Signed Date/Time: 07/11/2024 9:36 AM EST [facility] XR Chest Single viewon 07-11 New patchy airspace opacities projecting over the right upper lobe, suspicious for pneumonia. Report Dictated on Electronically Signed By: Burke Izaguirre MD Electronically Signed Date/Time: 07/11/2024 9:36 AM EST [facility] 1945 [id number] Exam Date/Time: 07/11/2024 09:05 Procedure: XR CHEST 1 VIEW Ordering Provider: GARCIA ANGELA Reason For Exam: INCREASED COUGH EXAMINATION: XR chest AP. EXAM DATE & TIME: 07/11/2024 9:05 AM EST INDICATION: INCREASED COUGH ADDITIONAL INFORMATION: 79-year-old female with increased cough presents for evaluation COMPARISON: Chest x-ray dated 07/10/2024 TECHNIQUE: Frontal view of the chest was obtained. FINDINGS: Lines/support devices: Unchanged left chest ICD. Cardiomediastinal silhouette: Within normal limits. Lungs/pleura: New patchy airspace opacities project over the right upper lobe. Stable appearance of medial left basilar patchy airspace opacities on a background of chronic lung changes. No pleural effusions or pneumothorax. Osseous structures: Unchanged. Other findings: None. [facility] Burke Izaguirre MD - 07/11/2024 Patient Name: ANA LOPES : 1945 [facility]#: [id number] Exam Date/Time: 07/11/2024 09:05 Procedure: XR CHEST 1 VIEW Ordering Provider: GARCIA ANGELA Reason For Exam: INCREASED COUGH EXAMINATION: XR chest AP. EXAM DATE & TIME: 07/11/2024 9:05 AM EST INDICATION: INCREASED COUGH ADDITIONAL INFORMATION: 79-year-old female with increased cough presents for evaluation COMPARISON: Chest x-ray dated 07/10/2024 TECHNIQUE: Frontal view of the chest was obtained. FINDINGS: Lines/support devices: Unchanged left chest ICD. Cardiomediastinal silhouette: Within normal limits. Lungs/pleura: New patchy airspace opacities project over the right upper lobe. Stable appearance of medial left basilar patchy airspace opacities on a background of chronic lung changes. No pleural effusions or pneumothorax. Osseous structures: Unchanged. Other findings: None. IMPRESSION: New patchy airspace opacities projecting over the right upper lobe, suspicious for pneumonia. Report Dictated on Electronically Signed By: Burke Izaguirre MD Electronically Signed Date/Time: 07/11/2024 9:36 AM EST [facility] Radiology Study observation (narrative) [facility] XR Chest Single viewOrdered By: Burke Izaguirre on 07-11-2024 [facility] [employer] Work Phone: 30on 07-10-2024 30 Problem: Knowledge Deficit Goal: Patient/family/caregiv er demonstrates understanding of disease process, treatment plan, medications, and discharge instructions Outcome: Progressing Problem: Potential for Compromised Skin Integrity Goal: Skin Integrity is Maintained or Improved Outcome: Progressing Goal: Nutritional status is improving Outcome: Progressing Problem: Urinary Incontinence Goal: Perineal skin integrity is maintained or improved Outcome: Progressing Problem: Problem Interventions Goal: Promote nutritional intake Outcome: Progressing Normal [facility] [id number] 07-10-2024 [id number] Pt from [facility] PT/OT rec SNF, will need auth to return skilled. TCC will continue to follow. Normal [facility] Bacteria identified Cx Nom ( U)Ordered By: Sun Colunga on 07-10-2024 Interpretation and review of laboratory results Abnormal [facility] CBC W Auto Differential pane l (Bld)on 07-10-2024 Basophils (Bld) [#/Vol] 0.1 10*3/uL 0.0 - 0.2 10*3/uL [facility] Basophils/100 WBC (Bld) 0.8 % 0.0 - 2.0 % [facility] Eosinophils (Bld) [#/Vol] 0.9 10*3/uL High 0.0 - 0.5 10*3/uL [facility] Eosinophils/100 WBC (Bld) 10.2 % High 0.0 - 6.0 % [facility] Erythrocyte distribution width (RBC) [Ratio] 15.8 % High 11.5 - 15.0 % [facility] Hematocrit (Bld) [Volume fraction] 36.8 % 35.0 - 47.0 % [facility] Hemoglobin (Bld) [Mass/Vol] 11.7 g/dL 11.7 - 16.0 g/dL [facility] Immature granulocytes (Bld) [#/Vol] 0 10*3/uL NINF - 0.1 10*3/uL [facility] Immature granulocytes/100 WBC (Bld) 0.2 % 0.0 - 2.0 % [facility] Interpretation and review of laboratory results Abnormal [facility] Lymphocytes (Bld) [#/Vol] 2.8 10*3/uL 1.0 - 4.3 10*3/uL [facility] Lymphocytes/100 WBC (Bld) 31.7 % 15.0 - 45.0 % [facility] MCH (RBC) [Entitic mass] 29.9 pg 26. 0 - 34.0 pg [facility] MCHC (RBC) [Mass/Vol] 31.8 % 30.5 - 36.0 % [facility] MCV (RBC) [Entitic vol] 94.1 fL 77.0 - 99.0 fL [facility] Monocytes (Bld) [#/Vol] 0.7 10*3/uL 0.0 - 0.9 10*3/uL [facility] Monocytes/100 WBC (Bld) 8.1 % 5.0 - 13.0 % [facility] Neutrophils (Bld) [#/Vol] 4.3 10*3/uL 1.8 - 7.5 10*3/uL [facility] Neutrophils/100 WBC (Bld) 49 % 38.0 - 82.0 % [facility] Nucleated RBC/100 WBC (Bld) [Ratio] 0 % [facility] Platelet mean volume (Bld) [Entitic vol] 9.1 fL 9.0 - 12.7 fL [facility] Platelets (Bld) [#/Vol] 247 10*3/uL 140 - 440 10*3/uL [facility] RBC (Bld) [#/Vol] 3.91 10*6/uL 3.80 - 5.2 0 10*6/uL [facility] WBC (Bld) [#/Vol] 8.8 10*3/uL 3.6 - 10.7 10*3/uL [facility] CBC WITH AUTO DIFFERENTIALon 07-10-2024 Basophils (Bld) [#/Vol] 0.1 10*3/uL Normal 0.0-0.2 [facility] Comment on above: Performed By: #### L [id number] ####Supply Officer: JUSTICE ABDULLAHI ([phone])[facility] ([facility] [place] [address] Basophils/100 WBC (Bld) 0.8 % Normal 0.0-2.0 S [facility] Comment on above: Performed By: #### L [id number] ####Supply Officer: JUSTICE ABDULLAHI ([phone])[facility] ([facility])[address] Eosinophils (Bld) [#/Vol] 0.9 10*3/uL High 0.0-0.5 [facility] Comment on above: Performed By: #### L [id number] ####Supply Officer: JUSTICE ABDULLAHI ([phone])[facility] ([facility])[address] Eosinophils/100 WBC (Bld) 10.2 % High 0.0-6.0 [facility] Comment on above: Performed By: #### L [id number] ####Supply Officer: JUSTICE ABDULLAHI ([id number])[facility] ([facility])[address] Erythrocyte distribution width (RBC) [Ratio] 15.8 % High 11.5-15.0 [facility] Comment on above: Performed By: #### L [id number] ####Supply Officer: JUSTICE ABDULLAHI ([phone])[facility] ([facility])[address] Hematocrit (Bld) [Volume fraction] 36.8 % Normal 35.0-47.0 [facility] Comment on above: Performed By: #### L [id number] ####Supply Officer: JUSTICE ABDULLAHI ([phone])[facility])[address] [place] [address] Hemoglobin (Bld) [Mass/Vol] 11.7 g/dL Normal 11.7-16.0 [facility] Comment on above: Performed By: #### L [id number] ####Supply Officer: JUSTICE ABDULLAHI ([phone])[facility])[address] IMMATURE GRANS % 0.2 % Normal 0.0-2.0 [facility] Comment on above: Performed By: #### L [id number] ####Supply Officer: JUSTICE ABDULLAHI ([phone])[facility])[address] IMMATURE GRANS ABSOLUTE 0.0 10*3/uL Normal <0.1 [facility] Comment on above: Performed By: #### L [id number] ####Supply Officer: JUSTICE ABDULLAHI ([phone])[facility] ([facility])[address] Lymphocytes (Bld) [#/Vol] 2.8 10*3/uL Normal 1.0-4.3 [facility] Comment on above: Performed By: #### L [id number] ####Supply Officer: JUSTICE ABDULLAHI ([phone])[facility] [place] ([facility])[address] Lymphocytes/100 WBC (Bld) 31.7 % Normal 15.0-45.0 [facility] Comment on above: Performed By: #### L [id number] ####Supply Officer: JUSTICE ABDULLAHI ([id number])[facility] [place] ([facility])[address] MCH (RBC) [Entitic mass] 29.9 pg Normal 26.0-34.0 [facility] Comment on above: Performed By: #### L [id number] ####Supply Officer: JUSTICE ABDULLAHI ([phone])[facility] MCHC 31.8 % Normal 30.5-36.0 [facility] Comment on above: Performed By: #### L [id number] ####Supply Officer: JUSTICE ABDULLAHI ([phone])[facility] [place] ([facility])[address] MCV (RBC) [Entitic vol] 94.1 fL Normal 77.0-99.0 [facility] Comment on above: Performed By: #### L [id number] ####Supply Officer: JUSTICE ABDULLAHI ([id number])[facility] [place] ([facility])[address] [place] [address] [place] Monocytes (Bld) [#/Vol] 0.7 10*3/uL Normal 0.0-0.9 [facility] Comment on above: Performed By: #### L [id number] ####Supply Officer: JUSTICE ABDULLAHI ([id number])[facility] ([facility])[address] Monocytes/100 WBC (Bld) 8.1 % Normal 5.0-13.0 [facility] Comment on above: Performed By: #### L [id number] ####Supply Officer: JUSTICE ABDULLAHI ([id number])[facility] [place] ([facility])[address] NEUTROPHILS ABSOLUTE 4.3 10*3/uL Normal 1.8-7.5 [facility] Comment on above: Performed By: #### L [id number] ####Supply Officer: JUSTICE ABDULLAHI ([id number])[facility] ([facility])[address] Neutrophils/100 WBC (Bld) 49.0 % Normal 38.0-82.0 [facility] Comment on above: Performed By: #### L [id number] ####Supply Officer: JUSTICE ABDULLAHI ([id number])[facility] [place] ([facility])[address] NRBC 0.0 /100 WBCs Normal 0.0-2.0 [facility] Comment on above: Performed By: #### L [id number] ####Supply Officer: JUSTICE ABDULLAHI ([id number])[facility] [place] ([facility])[address] Platelet mean volume (Bld) [Entitic vol] 9.1 fL Normal 9.0-12.7 [facility] Comment on above: Performed By: #### L [id number] ####Supply Officer: JUSTICE ABDULLAHI ([id number])[facility] ([facility])[address] [place] [address] [place] Platelets (Bld) [#/Vol] 247 10*3/uL Normal 140-440 [facility] Comment on above: Performed By: #### L [id number] ####Supply Officer: JUSTICE ABDULLAHI ([phone])[facility] [place] ([facility])[address] RBC (Bld) [#/Vol] 3.91 10*6/uL Normal 3.80-5.20 [facility] Comment on above: Performed By: #### L [id number] ####Supply Officer: JUSTICE ABDULLAHI ([phone])[facility] ([facility])[address] WBC (Bld) [#/Vol] 8.8 10*3/uL Normal 3.6-10.7 [facility] Comment on above: Performed By: #### L [id number] ####Supply Officer: JUSTICE ABDULLAHI ([phone])[facility] ([facility])[address] COMPREHENSIVE METABOLIC PANE Jamie 07-10-2024 Albumin [Mass/Vol] 2.7 g/dL Low 3.4-4.8 [facility] Comment on above: Performed By: #### L [id number] #### Supply Officer: JUSTICE ABDULLAHI ([phone]) [facility] ([facility] [address] ALP [Catalytic activity/Vol] 78 U/L Normal 40-150 [facility] Comment on above: Performed By: #### L [id number] #### Supply Officer: JUSTICE ABDULLAHI ([id number]) [facility] ([facility] [address] ALT [Catalytic activity/Vol] U/L Normal <30 [facility] Comment on above: Performed By: #### L [id number] #### Supply Officer: JUSTICE ABDULLAHI ([id number]) [facility] ([facility] [address] Anion gap [Moles/Vol] 7 mmol/L Normal 3-13 [facility] Comment on above: Performed By: #### L [id number] #### Supply Officer: JUSTICE ABDULLAHI ([id number]) [facility] ([facility]) [address] [place] [address] [place] AST [Catalytic activity/Vol] 18 U/L Normal <34 [facility] Comment on above: Performed By: #### L [id number] #### Supply Officer: JUSTICE ABDULLAHI ([id number]) [facility] [place] ([facility]) [address] [place] [address] [place] Bilirubin [Mass/Vol] 0.4 mg/dL Normal <1.2 [facility] Comment on above: Performed By: #### L [id number] #### Supply Officer: JUSTICE ABDULLAHI ([id number]) [facility] [place] ([facility]) [address] Calcium [Mass/Vol] 9.0 mg/dL Normal 8.8-10.0 [facility] Comment on above: Performed By: #### L [id number] #### Supply Officer: JUSTICE ABDULLAHI ([phone]) [facility] [place] ([facility]) [address] [place] [address] [place] Chloride [Moles/Vol] 104 mmol/L Normal 98-107 [facility] Comment on above: Performed By: #### L [id number] #### Supply Officer: JUSTICE ABDULLAHI ([id number]) [facility] [place] ([facility]) [address] [place] [address] [place] CO2 [Moles/Vol] 28 mmol/L Normal 23-31 [facility] Comment on above: Performed By: #### L [id number] #### Supply Officer: JUSTICE ABDULLAHI ([id number]) [facility] [place] ([facility]) [address] [place] [address] [place] Creatinine [Mass/Vol] 0.77 mg/dL Normal 0.57-1.11 [facility] Comment on above: Performed By: #### L [id number] #### Supply Officer: JUSTICE ABDULLAHI ([id number]) [facility] [place] ([facility]) [address] [place] [address] [place] GLOMERULAR FILTRATION RATE ML/MIN/1.73 SQ M.PREDICTED 79.6 mL/min/1.73m*2 Normal >60.0 [facility] Comment on above: Result Comment: Calc ulation based on the Chronic Kidney Disease Epidemiology Collaboration (CKD-EPI) equation refit without adjustment for race Performed By: #### L [id number] #### Supply Officer: JUSTICE ABDULLAHI ([phone]) [facility] [address] [place] [address] [place] Glucose [Mass/Vol] 120 mg/dL High 82-115 [facility] Comment on above: Performed By: #### L [id number] #### Supply Officer: JUSTICE ABDULLAHI ([id number]) [facility]) [address] Potassium [Moles/Vol] 3.9 mmol/L Normal 3.5-5.1 [facility] Comment on above: Result Comment: [facility] potassium values may be up to 0.5 mmol/L lower than serum values. Performed By: #### L [id number] #### Supply Officer: JUSTICE ABDULLAHI ([id number]) [facility]) [address] Protein [Mass/Vol] 6.7 g/dL Normal 6.4-8.3 [facility] Comment on above: Performed By: #### L [id number] #### Supply Officer: JUSTICE ABDULLAHI ([phone]) [facility] [address] [place] [address] [place] Sodium [Moles/Vol] 139 mmol/L Normal 136-145 [facility] Comment on above: Performed By: #### L [id number] #### Supply Officer: JUSTICE ABDULLAHI ([phone]) [facility] [address] [place] [address] [place] Urea nitrogen [Mass/Vol] 14 mg/dL Normal 9-23 [facility] Comment on above: Performed By: #### L [id number] #### Supply Officer: JUSTICE ABDULLAHI ([id number]) [facility] [place] ([facility]) [address] Comprehensive metabolic 1998 panelon 07-10-2024 Albumin [Mass/Vol] 2.7 g/dL Low 3.4 - 4.8 g/dL [facility] ALP [Catalytic activity/Vol] 78 U/L 40 - 150 U/L [facility] ALT [Catalytic activity/Vol] U/L NINF - 30 U/L [facility] Anion gap [Moles/Vol] 7 mmol/L 3 - 13 mmol/L [facility] AST [Catalytic activity/Vol] 18 U/L NINF - 34 U/L [facility] Bilirubin [Mass/Vol] 0.4 mg/dL NINF - 1.2 mg/dL [facility] Calcium [Mass/Vol] 9 mg/dL 8.8 - 10. 0 mg/dL [facility] Chloride [Moles/Vol] 104 mmol/L 98 - 10 7 mmol/L [facility] CO2 [Moles/Vol] 28 mmol/L 23 - 31 mmol/L [facility] Creatinine [Mass/Vol] 0.77 mg/dL 0.57 - 1.11 mg/dL [facility] GFR/1.73 sq M.predicted (S/P/Bld) [Vol rate/Area] 79.6 mL/min - PINF [facility] Comment on above: Calculation based on the Chronic Kidney Disease Epidemiology Collaboration (CKD-EPI) equation refit without adjustment for race Glucose [Mass/Vol] 120 mg/dL High 82 - 115 mg/dL [facility] Interpretation and review of laboratory results Abnormal [facility] Potassium [Moles/Vol] 3.9 mmol/L 3.5 - 5.1 mmol/L [facility] Comment on above: Plasma potassium guillermo ues may be up to 0.5 mmol/L lower than serum values. Protein [Mass/Vol] 6.7 g/dL 6.4 - 8.3 g/dL [facility] Sodium [Moles/Vol] 139 mmol/L 136 - 145 mmol/L [facility] Urea nitrogen [Mass/Vol] 14 mg/dL 9 - 23 mg/d L [facility] Consulton 07-10-2024 Consult Vancomycin therapy h as been discontinued by Brittany Garcia on 07/10/24. Thank you for the consult. Pharmacy signing off for vancomycin dosing. Chloe Garnica, GregoryD Date: 07/10/24 Time: 9:39 AM Normal [facility] Laboratory - Chemistry and C hemistry - challengeon 07-10-2024 Glucose [Mass/Vol] 218 mg/dL High 70 - 100 mg/dL [facility] Glucose [Mass/Vol] 147 mg/dL High 70 - 100 mg/dL [facility] Glucose [Mass/Vol] 172 mg/dL High 70 - 100 mg/dL [facility] Glucose [Mass/Vol] 103 mg/dL High 70 - 100 mg/dL [facility] Laboratory - Microbiology an d Antimicrobial susceptibilityOrdered By: Sun Colunga on 07-10-2024 Bacteria identified Cx Nom (U) >100,000 CFU/mL Escherichia coli Abnormal [facility] Comment on above: This phenotype is zimmer ggestive of an ESBL-producing organism. Treatment with beta-lactam antibiotics other than carbapenems may not be effective. MRSA BY PCRon 07-10-2024 MRSA BY PCR STAPHYLOCOCCUS AUREU S Reference Not Detected Not Detected MECA GENE Reference Not Detected Not Detected ORDER COMMENTS: No Staphylococcus aureus detected. Negative nasal MRSA PCR has a high negative predictive value for MRSA pneumonia. Consider stopping Vancomycin if no other clinical indication. Contact Antimicrobial Stewardship for further recommendations. Staphylococcus aureus nasal screen by real-time PCR. This test was modified and its performance characteristics determined by [facility] Microbiology Service. The U. S. Food and Drug Administration has not approved or cleared this test; however, FDA clearance or approval is not currently required for clinical use. The results are not intended to be used as the sole means for clinical diagnosis or patient management decisions. Normal [facility] Comment on above: Performed By: #### L [id number] ####Supply Officer: ENA MARRERO ([phone])[facility] ([facility])[address] [place] [address] MRSA DNA [place]+probe Ql (Nose) on 07-10-2024 Interpretation and review of laboratory results Normal [facility] mecA gene Not detected Not Detected [facility] Staphylococcus aureus Not detected Not Detected [facility] No Staphylococcus aureus detected. Negative nasal MRSA PCR has a high negative predictive value for MRSA pneumonia. Consider stopping Vancomycin if no other clinical indication. Contact Antimicrobial Stewardship for further recommendations. Staphylococcus aureus nasal screen by real-time PCR. This test was modified and its performance characteristics determined by [facility]. The U. S. Food and Drug Administration has not approved or cleared this test; however, FDA clearance or approval is not currently required for clinical use. The results are not intended to be used as the sole means for clinical diagnosis or patient management decisions. [facility] No Panel Informationon 07-10 Interpretation and review of laboratory results Abnormal [facility] Performed by: [facility] [place] [facility], [address] [facility] [address] CLIA ID: [id number] [facility] Interpretation and review of laboratory results Abnormal [facility] Performed by: [facility], [address] [facility] [address] CLIA ID: [id number] [facility] Interpretation and review of laboratory results Abnormal [facility] Performed by: [facility] [place] [facility], [address] [facility] [address] CLIA ID: [id number] [facility] Interpretation and review of laboratory results Abnormal [facility] Performed by: [facility], [facility] [address] CLIA ID: [id number] [facility] Progress Noteon 07-10-2024 Progress Note Pt chart reviewed an d attempted to see for therapy. Pt sleeping upon arrival, states she is too tired to participate in therapy. Unable to encourage. Will continue to follow and attempt as schedule allows. Bettye BRICENO/Ankur Normal [facility] Progress Note [facility], Pulmonary Medicine [address], [facility] [address] Patient - Ana Lopes, Age - 79 y.o. - 1945 Room Number - [id number] A Consulting - Rambo Mcclelland DO Primary Care Physician - Mayur Young Date of Admission - 07/07/2024 2:12 PM Hospital Day - 3 Chief Complaint Ana Lopes is a 79 y.o. female who presented with chief complaint of altered mental status. Pulmonary following for pulmonary edema Hx Seizure disorder (on Keppra), CHB s/p PPM, reported COPD (no PFT, on Anoro), chronic respiratory failure (2-3 liters NC), prior tobacco use, obesity and MARY not currently using PAP therapy. Interval history Patient awake sitting up in bed eating a banana. States her breathing is better today. No chest pain, cough, shortness of breath, nausea, vomiting, fever or chills. On 2 liters NC which is her baseline. No new overnight concerns. A pertinent review of systems was performed and was otherwise non-contributory except as detailed in subjective section above. Objective Vitals: BP 110/56 (BP Location: Left arm, Patient Position: Lying) Pulse 71 Temp 36.3 ?C (97.4 ?F) (Temporal) Resp 16 Ht 5' 4" (1.626 m) Wt 225 lb (102 kg) SpO2 96% BMI 38.62 kg/m? Pulse Ox: SpO2 Av.2 % Min: 95 % Max: 98 % Supplemental O2: O2 Flow Rate (L/min): 2 L/min I/O 24HR INTAKE/OUTPUT: Intake/Output Summary (Last 24 hours) at 07/10/2024 1426 Last data filed at 07/09/2024 1751 Gross per 24 hour Intake 50 ml Output -- Net 50 ml Exam Physical Exam Vitals and nursing note reviewed. Constitutional: General: She is not in acute distress. Appearance: She is obese. HENT: Head: Normocephalic and atraumatic. Nose: Nose normal. No congestion or rhinorrhea. Eyes: General: No scleral icterus. Conjunctiva/sclera: Conjunctivae normal. Pupils: Pupils are equal, round, and reactive to light. Cardiovascular: Rate and Rhythm: Normal rate and regular rhythm. Pulmonary: Effort: Pulmonary effort is normal. No respiratory distress. Breath sounds: No stridor. Rales present. No wheezing or rhonchi. Chest: Chest wall: No tenderness. Musculoskeletal: Right lower leg: No edema. Left lower leg: No edema. Neurological: General: No focal deficit present. Mental Status: She is alert and oriented to person, place, and time. Mental status is at baseline. Psychiatric: Mood and Affect: Mood normal. Behavior: Behavior normal. Thought Content: Thought content normal. Judgment: Judgment normal. Medications Current Medications aspirin, 81 mg, Oral, Daily atorvastatin, 80 mg, Oral, Daily cetirizine, 5 mg, Oral, Daily enoxaparin, 40 mg, SubCUTAneous, Daily furosemide, 40 mg, IntraVENous, BID [Held by provider] furosemide, 20 mg, Oral, Daily Glycopyrrolate-Formote rol, 2 puff, Inhalation, BID guaiFENesin, 600 mg, Oral, BID influenza, 0.5 mL, IntraMUSCular, Prior to discharge insulin lispro, 0-12 Units, SubCUTAneous, TID WC And insulin lispro, 0-12 Units, SubCUTAneous, Nightly ipratropium-albuterol, 3 mL, Nebulization, TID levETIRAcetam, 750 mg, Oral, BID PRN Mediations PRN medications: acetaminophen OR acetaminophen, dextrose, dextrose, glucagon (rDNA), glucose, ondansetron ODT OR ondansetron, polyethylene glycol (PEG) 3350 Labs CBC Results from last 7 days Lab Units 07/10/24 0549 WBC AUTO 10*3/uL 8.8 HEMOGLOBIN g/dL 11.7 HEMATOCRIT % 36.8 PLATELETS 10*3/uL 247 BMP: Results from last 7 days Lab Units 07/10/24 0549 07/09/24 0419 07/08/24 0515 SODIUM mmol/L 139 138 139 POTASSIUM mmol/L 3.9 3.9 4.1 CHLORIDE mmol/L 104 107 107 CO2 mmol/L 28 23 26 BUN mg/dL 14 15 16 CREATININE mg/dL 0.77 0.83 0.81 GLUCOSE mg/dL 120* 106 127* CALCIUM mg/dL 9.0 8.5* 8.9 LIVER PROFILE Results from last 7 days Lab Units 07/10/24 0549 07/09/24 0419 07/08/24 0515 ALK PHOS U/L 78 77 79 BILIRUBIN TOTAL mg/dL 0.4 0.5 0.6 PROTEIN TOTAL g/dL 6.7 6.5 6.6 ALT U/L <6 <6 <6 AST U/L 18 21 21 Cultures COVID/Flu/RSV: Negative Respiratory pathogens PCR: Negative Urine antigens: Negative Urine culture: + E. Coli, ESBL Blood cultures: NGTD x 48 hours MRSA PCR: negative Radiology CXR 07/10/24: IMPRESSION: Diffuse interstitial edema, unchanged. Cardiomegaly is stable. Interval moderate gastrectasis. CT chest 07/08/24: Impression: Suspected pulmonary edema, superimposed on chronic interstitial changes, scarring/fibrosis. Short-term interval follow-up recommended. Cardiomegaly with cardiac pacemaker. Slightly enlarged main pulmonary artery, which may be seen with pulmonary arterial hypertension Outpatient testing Pulmonary function test 05/22/21: Located under media tab: No overt airflow obstruction. Reduced VC could be secondary to restriction or air trapping. No lung volumes available. Absolute Value % Predicted Z-score FEV1/FVC 93% FEV1 0.94 44 FVC (more content not included)... Normal [facility] Progress Note Speech-Language Pathology SPEECH LANGUAGE PATHOLOGY [facility] Dysphagia Treatment Note Patient Name: Ana Lopes Evaluation Date: 07/10/2024 Date of : 1945 Admission Date: 07/07/2024 2:12 PM Age: 79 y.o. Room[facility]Bed: [facility] A Subjective Patient was sleeping and woke easily; some hard of hearing. Seen upright in bed, after repositioning. Answers all basic questions with clear vocal quality. Follows all basic commands. No visitors at bedside. Spoke with BLANCA Whitlock who cleared pt for treatment. Current Diet: Dietary Orders (From admission, onward) Start Ordered 07/10/24 0912 Adult diet Easy to Chew; 5 carb choices (75 gm/meal) Diet effective now Comments: Ground meats Question Answer Comment Diet type Easy to Chew Carbohydrate restriction: 5 carb choices (75 gm/meal) 07/10/24 0911 Aspiration Precautions: - Upright positioning for all PO intake - Slow rate of intake - Small bites/sips - Alternate solid and liquids - Consistent mouth care Oxygen: Oxygen Therapy: Supplemental oxygen O2 Delivery Method: Nasal cannula O2 Flow Rate (L/min): 2 L/min I don't eat eggs Pain: Pt denies any current pain. PPE Worn: surgical mask, gloves Objective & Assessment Dysphagia Treatment Dysphagia Activity 1: Assess tolerance of recommended diet and advanced diet trials. Pt with continue c/o not getting noodles in her chicken noodle soup. Seen with breakfast tray. Would not trial eggs. Dislike for same, especially after emesis before. Only like fried egg. Pt with good oral control and oral transit of oatmeal. More cracker require some additional manipulation. Overtly functional control and oral transit. Feel pt would be appropriate for soft bread items, however would continue to have difficulty with meats d/t edentulous status. Spoke with physician re: advancement and diet was modified to Easy to chew and will trial ground meats. This will increased food choices and ability to have mixed textures. Plan & Recommendations Plan: Assess advanced diet textures prandially. Recommend Easy to chew solids with ground (?chopped) meats and Thin liquids and meds as tolerated and the following precautions: - Upright positioning for all PO intake - Small bites/sips - Alternate solid and liquids as needed - Consistent mouth care D/C Recommendations: No follow up therapy recommended post discharge Education Education Given: swallowing strategies, diet recommendations Given To: patient Response: demonstrated understanding Goals Patient Stated Goal: To have hot chocolate" Encounter Problems Encounter Problems (Active) Swallowing Patient will tolerate the least restrictive diet consistency to allow for safe consumption of daily meals (Progressing) Start: 07/08/24 Expected End: 07/22/24 Patient will demonstrate safe swallowing Intervention/technique s (Progressing) Start: 07/08/24 Expected End: 07/22/24 Therapy Time SENIOR RADIATION THERAPIST Individual Minutes Time In: 0839 Time Out: 0856 Minutes: 17 VALERIANO Torres [facility] XR CHEST 1 VIEWon 07-10-2024 XR CHEST 1 VIEW Patient Name: ANA LOPES : 1945 Exam Date/Time: 07/10/2024 10:45 Procedure: XR CHEST 1 VIEW Ordering Provider: MCKEON MANSUR Reason For Exam: follow pulm edema EXAM: XR Chest, 1 View CLINICAL INDICATION: follow pulm edema TECHNIQUE: Frontal view of the chest. COMPARISON: XR Chest dated 07/09/2024 FINDINGS: LUNGS AND PLEURAL SPACES: Diffuse bilateral interstitial edema, unchanged. Vascular pedicle is widened. No focal consolidation. No pneumothorax. HEART: Mild cardiomegaly, unchanged. MEDIASTINUM: Unremarkable. Normal mediastinal contour. BONES/JOINTS: Thoracic degenerative spondylosis. No acute fracture. TUBES, LINES AND DEVICES: Left pacemaker leads terminate in RA, unchanged. UPPER ABDOMEN: Interval moderate gastrectasis. IMPRESSION: Diffuse interstitial edema, unchanged. Cardiomegaly is stable. Interval moderate gastrectasis. Report Dictated on Electronically Signed By: Dawood Cosme DO Electronically Signed Date/Time: 07/10/2024 10:52 AM EST Pt c/o mid epigastric pain; mid back pain; follow up edema Normal [facility] XR Chest Single viewon 07-10 Diffuse interstitial edema, unchanged. Cardiomegaly is stable. Interval moderate gastrectasis. Report Dictated on Electronically Signed By: Dawood Cosme DO Electronically Signed Date/Time: 07/10/2024 10:[address] [facility] Patient Name: ANA LOPES : 1945 Exam Date/Time: 07/10/2024 10:45 Procedure: XR CHEST 1 VIEW Ordering Provider: MCKEON MANSUR Reason For Exam: follow pulm edema EXAM: XR Chest, 1 View CLINICAL INDICATION: follow pulm edema TECHNIQUE: Frontal view of the chest. COMPARISON: XR Chest dated 07/09/2024 FINDINGS: LUNGS AND PLEURAL SPACES: Diffuse bilateral interstitial edema, unchanged. Vascular pedicle is widened. No focal consolidation. No pneumothorax. HEART: Mild cardiomegaly, unchanged. MEDIASTINUM: Unremarkable. Normal mediastinal contour. BONES/JOINTS: Thoracic degenerative spondylosis. No acute fracture. TUBES, LINES AND DEVICES: Left pacemaker leads terminate in RA, unchanged. UPPER ABDOMEN: Interval moderate gastrectasis. [facility] Dawood Cosme DO - 07/10/2024 Patient Name: ANA LOPES : 1945 Exam Date/Time: 07/10/2024 10:45 Procedure: XR CHEST 1 VIEW Ordering Provider: MCKEON MANSUR Reason For Exam: follow pulm edema EXAM: XR Chest, 1 View CLINICAL INDICATION: follow pulm edema TECHNIQUE: Frontal view of the chest. COMPARISON: XR Chest dated 07/09/2024 FINDINGS: LUNGS AND PLEURAL SPACES: Diffuse bilateral interstitial edema, unchanged. Vascular pedicle is widened. No focal consolidation. No pneumothorax. HEART: Mild cardiomegaly, unchanged. MEDIASTINUM: Unremarkable. Normal mediastinal contour. BONES/JOINTS: Thoracic degenerative spondylosis. No acute fracture. TUBES, LINES AND DEVICES: Left pacemaker leads terminate in RA, unchanged. UPPER ABDOMEN: Interval moderate gastrectasis. IMPRESSION: Diffuse interstitial edema, unchanged. Cardiomegaly is stable. Interval moderate gastrectasis. Report Dictated on Electronically Signed By: Dawood Cosme DO Electronically Signed Date/Time: 07/10/2024 10:52 AM EST [facility] Radiology Study observation (narrative) [facility] kenya 30on 07-09-2024 30 Problem: Knowledge Deficit Goal: Patient/family/caregiv er demonstrates understanding of disease process, treatment plan, medications, and discharge instructions Outcome: Progressing Problem: Potential for Compromised Skin Integrity Goal: Skin Integrity is Maintained or Improved Outcome: Progressing Flowsheets (Taken 07/09/2024103) Skin integrity is maintained or improved: Assess and monitor skin integrity Keep skin clean and dry Identify patients at risk for skin breakdown on admission and per policy Problem: Urinary Incontinence Goal: Perineal skin integrity is maintained or improved Flowsheets (Taken 07/09/2024103) Perineal skin integrity is maintained or improved: Assess genitourinary system, perineal skin, labs (urinalysis), and history of incontinence to include past management, aggravating, and alleviating factors Keep skin clean and dry Normal [facility] CBC W Auto Differential pane l (Bld)on 07-09-2024 Basophils (Bld) [#/Vol] 0.1 10*3/uL 0.0 - 0.2 10*3/uL [facility] Basophils/100 WBC (Bld) 0.8 % 0.0 - 2.0 % [facility] Eosinophils (Bld) [#/Vol] 0.8 10*3/uL High 0.0 - 0.5 10*3/uL [facility] Eosinophils/100 WBC (Bld) 8.2 % High 0.0 - 6.0 % [facility] Erythrocyte distribution width (RBC) [Ratio] 15.8 % High 11.5 - 15.0 % [facility] Hematocrit (Bld) [Volume fraction] 36.3 % 35.0 - 47.0 % [facility] Hemoglobin (Bld) [Mass/Vol] 11.6 g/dL Low 11.7 - 16.0 g/dL [facility] Livra Panels Immature granulocytes (Bld) [#/Vol] 0 10*3/uL NINF - 0.1 10*3/uL [facility] Immature granulocytes/100 WBC (Bld) 0.3 % 0.0 - 2.0 % [facility] Interpretation and review of laboratory results Abnormal [facility] Lymphocytes (Bld) [#/Vol] 2.7 10*3/uL 1.0 - 4.3 10*3/uL [facility] Lymphocytes/100 WBC (Bld) 29.4 % 15.0 - 45.0 % [facility] MCH (RBC) [Entitic mass] 30.1 pg 26. 0 - 34.0 pg [facility] MCHC (RBC) [Mass/Vol] 32 % 30.5 - 36.0 % [facility] MCV (RBC) [Entitic vol] 94.3 fL 77.0 - 99.0 fL [facility] [employer] Monocytes (Bld) [#/Vol] 0.8 10*3/uL 0.0 - 0.9 10*3/uL [facility] Monocytes/100 WBC (Bld) 8.4 % 5.0 - 13.0 % [facility] Neutrophils (Bld) [#/Vol] 4.9 10*3/uL 1.8 - 7.5 10*3/uL [facility] Neutrophils/100 WBC (Bld) 52.9 % 38.0 - 82.0 % [facility] Nucleated RBC/100 WBC (Bld) [Ratio] 0 % [facility] Platelet mean volume (Bld) [Entitic vol] 9 fL 9.0 - 12.7 fL [facility] Platelets (Bld) [#/Vol] 231 10*3/uL 140 - 440 10*3/uL [facility] RBC (Bld) [#/Vol] 3.85 10*6/uL 3.80 - 5.2 0 10*6/uL [facility] WBC (Bld) [#/Vol] 9.3 10*3/uL 3.6 - 10.7 10*3/uL [facility] CBC WITH AUTO DIFFERENTIALon 07-09-2024 Basophils (Bld) [#/Vol] 0.1 10*3/uL Normal 0.0-0.2 [facility] Comment on above: Performed By: #### L [id number] ####Supply Officer: JUSTICE ABDULLAHI ([id number])[facility] (SBHLAB)[address] Basophils/100 WBC (Bld) 0.8 % Normal 0.0-2.0 [facility] Comment on above: Performed By: #### L [id number] ####Supply Officer: JUSTICE ABDULLAHI ([id number])[facility] (SBHLAB)[address] Eosinophils (Bld) [#/Vol] 0.8 10*3/uL High 0.0-0.5 [facility] Comment on above: Performed By: #### L [id number] ####Supply Officer: JUSTICE ABDULLAHI ([id number])[facility] [place] ([facility])[address] Eosinophils/100 WBC (Bld) 8.2 % High 0.0-6.0 [facility] Comment on above: Performed By: #### L [id number] ####Supply Officer: JUSTICE ABDULLAHI ([id number])[facility] [place] (SB[facility])[address] [place] [address] Erythrocyte distribution width (RBC) [Ratio] 15.8 % High 11.5-15.0 [facility] Comment on above: Performed By: #### L [id number] ####Supply Officer: JUSTICE ABDULLAHI ([id number])[facility] (SB[facility])[address] [place] [address] Hematocrit (Bld) [Volume fraction] 36.3 % Normal 35.0-47.0 [facility] Comment on above: Performed By: #### L [id number] ####Supply Officer: JUSTICE ABDULLAHI ([id number])[facility] [place] ([facility])[address] [place] [address] Hemoglobin (Bld) [Mass/Vol] 11.6 g/dL Low 11.7-16.0 [facility] Comment on above: Performed By: #### L [id number] ####Supply Officer: JUSTICE ABDULLAHI ([phone])[facility] ([facility])[address] IMMATURE GRANS % 0.3 % Normal 0.0-2.0 [facility] Comment on above: Performed By: #### L [id number] ####Supply Officer: JUSTICE ABDULLAHI ([id number])[facility] ([facility])[address] IMMATURE GRANS ABSOLUTE 0.0 10*3/uL Normal <0.1 [facility] Comment on above: Performed By: #### L [id number] ####Supply Officer: JUSTICE ABDULLAHI ([id number])[facility] (SBAB)[address] [place] [address] Lymphocytes (Bld) [#/Vol] 2.7 10*3/uL Normal 1.0-4.3 [facility] Comment on above: Performed By: #### L [id number] ####Supply Officer: JUSTICE ABDULLAHI ([id number])[facility] (SBAB)[address] [place] [address] Lymphocytes/100 WBC (Bld) 29.4 % Normal 15.0-45.0 [facility] Comment on above: Performed By: #### L [id number] ####Supply Officer: JUSTICE ABDULLAHI ([id number])[facility] ([facility])[address] [place] [address] MCH (RBC) [Entitic mass] 30.1 pg Normal 26.0-34.0 [facility] Comment on above: Performed By: #### L [id number] ####Supply Officer: JUSTICE ABDULLAHI ([id number])[facility] (SB[facility])[address] [place] [address] MCHC 32.0 % Normal 30.5-36.0 [facility] Comment on above: Performed By: #### L [id number] ####Supply Officer: JSUTICE ABDULLAHI ([id number])[facility] ([facility])[address] MCV (RBC) [Entitic vol] 94.3 fL Normal 77.0-99.0 [facility] Comment on above: Performed By: #### L [id number] ####Supply Officer: JUSTICE ABDULLAHI ([id number])[facility] [place] ([facility])[address] Monocytes (Bld) [#/Vol] 0.8 10*3/uL Normal 0.0-0.9 [facility] Comment on above: Performed By: #### L [id number] ####Supply Officer: JUSTICE ABDULLAHI ([id number])[facility] [place] ([facility])[address] Monocytes/100 WBC (Bld) 8.4 % Normal 5.0-13.0 [facility] Comment on above: Performed By: #### L [id number] ####Supply Officer: JUSTICE ABDULLAHI ([id number])[facility] [place] ([facility])[address] NEUTROPHILS ABSOLUTE 4.9 10*3/uL Normal 1.8-7.5 [facility] Comment on above: Performed By: #### L [id number] ####Supply Officer: JUSTICE ABDULLAHI ([id number])[facility] [place] ([facility])[address] Neutrophils/100 WBC (Bld) 52.9 % Normal 38.0-82.0 [facility] Comment on above: Performed By: #### L [id number] ####Supply Officer: JUSTICE ABDULLAHI ([id number])[facility] [place] ([facility])[address] NRBC 0.0 /100 WBCs Normal 0.0-2.0 [facility] Comment on above: Performed By: #### L [id number] ####Supply Officer: JUSTICE ABDULLAHI ([id number])[facility] ([facility])[address] Platelet mean volume (Bld) [Entitic vol] 9.0 fL Normal 9.0-12.7 [facility] Comment on above: Performed By: #### L [id number] ####Supply Officer: JUSTICE ABDULLAHI ([id number])[facility] ([facility])[address] Platelets (Bld) [#/Vol] 231 10*3/uL Normal 140-440 [facility] Comment on above: Performed By: #### L [id number] ####Supply Officer: JUSTICE OSPINANARA ([id number])[facility] (SB[facility])[address] [place] [address] RBC (Bld) [#/Vol] 3.85 10*6/uL Normal 3.80-5.20 [facility] Comment on above: Performed By: #### L [id number] ####Supply Officer: JUSTICE ABDULLAHI ([id number])[facility] ([facility])[address] WBC (Bld) [#/Vol] 9.3 10*3/uL Normal 3.6-10.7 [facility] Comment on above: Performed By: #### L [id number] ####Supply Officer: JUSTICE ABDULLAHI ([id number])[facility] ([facility])[address] COMPREHENSIVE METABOLIC PANE Jamie 07-09-2024 Albumin [Mass/Vol] 2.6 g/dL Low 3.4-4.8 [facility] Comment on above: Performed By: #### L [id number] #### Supply Officer: JUSTICE ABDULLAHI ([id number]) [facility] ([facility]) [address] ALP [Catalytic activity/Vol] 77 U/L Normal 40-150 [facility] Comment on above: Performed By: #### L [id number] #### Supply Officer: JUSTICE ABDULLAHI ([id number]) [facility] (HLAB) [address] ALT [Catalytic activity/Vol] U/L Normal <30 [facility] Comment on above: Performed By: #### L [id number] #### Supply Officer: JUSTICE ABDULLAHI ([id number]) [facility] (HLAB) [address] Anion gap [Moles/Vol] 8 mmol/L Normal 3-13 [facility] Comment on above: Performed By: #### L AB17 #### Supply Officer: JUSTICE ABDULLAHI ([id number]) [facility] [address] AST [Catalytic activity/Vol] 21 U/L Normal <34 [facility] Comment on above: Performed By: #### L [id number] #### Supply Officer: JUSTICE ABDULLAHI ([id number]) [facility] [address] Bilirubin [Mass/Vol] 0.5 mg/dL Normal <1.2 [facility] Comment on above: Performed By: #### L [id number] #### Supply Officer: JUSTICE ABDULLAHI ([id number]) [facility] (HLAB) [address] Calcium [Mass/Vol] 8.5 mg/dL Low 8.8-10.0 [facility] Comment on above: Performed By: #### L [id number] #### Supply Officer: JUSTICE ABDULLAHI ([id number]) [facility] (HL[facility]) [address] Chloride [Moles/Vol] 107 mmol/L Normal 98-107 [facility] Comment on above: Performed By: #### L [id number] #### Supply Officer: JUSTICE ABDULLAHI ([id number]) [facility] ([facility]) [address] CO2 [Moles/Vol] 23 mmol/L Normal 23-31 [facility] Comment on above: Performed By: #### L [id number] #### Supply Officer: JUSTICE ABDULLAHI ([id number]) [facility] ([facility]) [address] Creatinine [Mass/Vol] 0.83 mg/dL Normal 0.57-1.11 [facility] Comment on above: Performed By: #### L AB17 #### Supply Officer: JUSTICE ABDULLAHI ([id number]) [facility] [address] GLOMERULAR FILTRATION RATE ML/MIN/1.73 SQ M.PREDICTED 72.7 mL/min/1.73m*2 Normal >60.0 [facility] Comment on above: Result Comment: Calc ulation based on the Chronic Kidney Disease Epidemiology Collaboration (CKD-EPI) equation refit without adjustment for race Performed By: #### L [id number] #### Supply Officer: JUSTICE ABDULLAHI ([id number]) [facility] [address] Glucose [Mass/Vol] 106 mg/dL Normal 82-115 [facility] Comment on above: Performed By: #### L [id number] #### Supply Officer: JUSTICE ABDULLAHI ([id number]) [facility] ([facility]) [address] Potassium [Moles/Vol] 3.9 mmol/L Normal 3.5-5.1 [facility] Comment on above: Result Comment: [facility] potassium values may be up to 0.5 mmol/L lower than serum values. Performed By: #### L [id number] #### Supply Officer: JUSTICE ABDULLAHI ([id number]) [facility] ([facility]) [address] Protein [Mass/Vol] 6.5 g/dL Normal 6.4-8.3 [facility] Comment on above: Performed By: #### L [id number] #### Supply Officer: JUSTICE ABDULLAHI ([id number]) [facility] ([facility]) [address] Sodium [Moles/Vol] 138 mmol/L Normal 136-145 [facility] Comment on above: Performed By: #### L [id number] #### Supply Officer: JUSTICE ABDULLAHI ([id number]) [facility] ([facility]) [address] Urea nitrogen [Mass/Vol] 15 mg/dL Normal 9-23 [facility] Comment on above: Performed By: #### L [id number] #### Supply Officer: JUSTICE OSPINANARA ([id number]) [facility] [address] Comprehensive metabolic 1998 panelon 07-09-2024 Albumin [Mass/Vol] 2.6 g/dL Low 3.4 - 4.8 g/dL [facility] ALP [Catalytic activity/Vol] 77 U/L 40 - 150 U/L [facility] ALT [Catalytic activity/Vol] U/L NINF - 30 U/L [facility] Anion gap [Moles/Vol] 8 mmol/L 3 - 13 mmol/L [facility] AST [Catalytic activity/Vol] 21 U/L [facility] U/L [facility] Bilirubin [Mass/Vol] 0.5 mg/dL NINF - 1.2 mg/dL [facility] Calcium [Mass/Vol] 8.5 mg/dL Low 8.8 - 10. 0 mg/dL [facility] Chloride [Moles/Vol] 107 mmol/L 98 - 10 7 mmol/L [facility] CO2 [Moles/Vol] 23 mmol/L 23 - 31 mmol/L [facility] Creatinine [Mass/Vol] 0.83 mg/dL 0.57 - 1.11 mg/dL [facility] GFR/1.73 sq M.predicted (S/P/Bld) [Vol rate/Area] 72.7 mL/min - PINF [facility] Comment on above: Calculation based on the Chronic Kidney Disease Epidemiology Collaboration (CKD-EPI) equation refit without adjustment for race Glucose [Mass/Vol] 106 mg/dL 82 - 115 mg/dL [facility] Interpretation and review of laboratory results Abnormal [facility] Potassium [Moles/Vol] 3.9 mmol/L 3.5 - 5.1 mmol/L [facility] Comment on above: Plasma potassium guillermo ues may be up to 0.5 mmol/L lower than serum values. Protein [Mass/Vol] 6.5 g/dL 6.4 - 8.3 g/dL [facility] Sodium [Moles/Vol] 138 mmol/L 136 - 145 mmol/L [facility] Urea nitrogen [Mass/Vol] 15 mg/dL 9 - 23 mg/d L [facility] ECG 12-LEADon 07-09-2024 ECG 12-LEAD IMPRESSION: Sinus or ectopic atrial rhythm No acute change compared to first previous EKG. Prolonged AR interval Left bundle branch block Prolonged QT interval Electronically Signed On 07-09-2024 02:33:46 EST by Selwyn Lai Normal [facility] Laboratory - Chemistry and C hemistry - challengeon 07-09-2024 Glucose [Mass/Vol] 163 mg/dL High 70 - 100 mg/dL [facility] Glucose [Mass/Vol] 133 mg/dL High 70 - 100 mg/dL [facility] Glucose [Mass/Vol] 157 mg/dL High 70 - 100 mg/dL [facility] Glucose [Mass/Vol] 115 mg/dL High 70 - 100 mg/dL [facility] Laboratory - Drug toxicology on 07-09-2024 levETIRAcetam [Mass/Vol] 32.9 ug/mL [facility] Comment on above: Brivaracetam (Briviact(R), Rikelta(R)) exhibits significant cross-reactivity in the Levetiracetam (Keppra(R), Spritam(R)) immunoassay. If Brivaracetam has been prescribed, order test code 65201 Levetiracetam by LCMSMS. Test Performed by [facility], [address] [place] [address] Scooter Hairston M.D., Ph.D., Director of Laboratories , CLIA [id number] No Panel Informationon 07-09 Interpretation and review of laboratory results Abnormal [facility] Performed by: [facility], [address] [facility], [facility] [address] CLIA ID: [id number] [facility] Interpretation and review of laboratory results Abnormal [facility] Performed by: [facility], [address] [facility], [facility] [address] CLIA ID: [id number] [facility] Interpretation and review of laboratory results Abnormal [facility] Performed by: [facility], [address] [facility], [facility] [address] CLIA ID: [id number] [facility] Interpretation and review of laboratory results Abnormal [facility] Performed by: [facility], [address] [facility], [facility] [address] CLIA ID: [id number] [facility] P [place] 0 degrees [facility] AR Interval 296 ms [facility] QRS [place] 52 degrees [facility] QRSD Interval 141 ms [facility] QT Interval 534 ms [facility] QTC Interval 629 ms [facility] T Wave [place] 73 degrees [facility] Sinus or ectopic atrial rhythm No acute change compared to first previous EKG. Prolonged AR interval Left bundle branch block Prolonged QT interval Electronically Signed On 07-09-2024 02:33:46 EST by Selwyn Lai CV Selwyn Khan MD - 07/09/2024 IMPRESSION: Sinus or ectopic atrial rhythm No acute change compared to first previous EKG. Prolonged AR interval Left bundle branch block Prolonged QT interval Electronically Signed On 07-09-2024 02:33:46 EST by Selwyn Lai [facility] Progress Noteon 07-09-2024 Progress Note Speech-Language Pathology SPEECH LANGUAGE PATHOLOGY [facility] Dysphagia Treatment Note Patient Name: Ana Lopes Evaluation Date: 07/09/2024 Date of : 1945 Admission Date: 07/07/2024 2:12 PM Age: 79 y.o. Room/Bed: 35/35 Subjective Patient alert and cooperative. Seen upright in bed. No visitors at bedside. Pt is hard of hearing. I don't like the liquid diet that they are giving me" Pain: Pt denies any current pain. PPE Worn: gloves Objective & Assessment Dysphagia Treatment # of Activities: 1 Dysphagia Activity 1: Assess tolerance of recommended diet and advanced diet trials. Pt with limited mastication d/t edentulous status. Pt is suspected to be on soft foods with ground meats per her description. She ordered chicken noodle soup for lunch and only got broth d/t soft and bite sized diet will not allow mixed textures. Pt taking bites of more cracker with very slow mastication using her gums. Pt is able to gum the soft foods. Will suggest soft easy to chew diet and chop her meats fine. Pt is able to cut up into smaller bites as needed. Foods just need cooked soft for ease of preparation. Plan & Recommendations Plan: RECOMMEND advanced diet to EASY TO CHEW with chopped meat, cook foods soft. (Add chopped meats in comments) - Upright positioning for all PO intake - Slow rate of intake - Small bites/sips - Alternate solid and liquids - Consistent mouth care D/C Recommendations: No follow up therapy recommended post discharge Education Education Given: diet recommendations Given To: patient Response: demonstrated understanding Goals Patient Stated Goal: To get something other than liquids" Encounter Problems Encounter Problems (Active) Swallowing Patient will tolerate the least restrictive diet consistency to allow for safe consumption of daily meals (Progressing) Start: 07/08/24 Expected End: 07/22/24 Patient will demonstrate safe swallowing Intervention/technique s (Progressing) Start: 07/08/24 Expected End: 07/22/24 Therapy Time Ena Dsouza, VALERIANO [facility] Progress Note [facility] Pulmonary Medicine [address] [place] [id number] Patient - Ana Lopes, Age - 79 y.o. - 1945 Room Number - 35/35 Consulting - Rambo Mcclelland DO Primary Care Physician - Mayur Young Date of Admission - 07/07/2024 2:12 PM Hospital Day - 2 Chief Complaint: shortness of breath Ana Lopes is a 79 y.o. female who pulmonary is following for pulmonary edema Interval History Patient doing well this morning. Saturating well on home 3 LPM O2. She desaturated to 85% when off oxygen. She feels mildly improved compared to yesterday, still has some cough, non-productive. She is hemodynamically stable and in no acute distress. All other systems reviewed and negative unless otherwise stated in HPI. Objective Vitals: BP 96/50 Pulse 87 Temp 36.4 ?C (97.6 ?F) (Temporal) Resp 15 Ht 5' 4" (1.626 m) Wt 225 lb 5 oz (102 kg) SpO2 99% BMI 38.67 kg/m? Pulse Ox: SpO2 Av.2 % Min: 95 % Max: 100 % Supplemental O2: O2 Flow Rate (L/min): 3 L/min I/O 24HR INTAKE/OUTPUT: Intake/Output Summary (Last 24 hours) at 07/09/2024 0907 Last data filed at 07/08/2024 1338 Gross per 24 hour Intake 50 ml Output -- Net 50 ml Exam General appearance: Awake, alert, no acute distress. On 3 liters/min NC. HEENT: Normocephalic, atraumatic. No scleral icterus, no right/left eye discharge. Conjunctivae normal. Pupils equal round and reactive to light. Right external ear normal, Left external ear normal. No congestion. Mouth: mucous membranes moist. Pharynx, Oropharynx is clear. No oropharyngeal exudate. Neck: ROM normal, No thyromegaly. No cervical lymphadenopathy Cardiovascular: Regular rate and rhythm. Heart sounds normal. Negative for murmur, friction rub, or gallop. Pulmonary: Effort normal, no respiratory distress. No stridor. Bilateral crackles, no wheezing. Abdomen: Soft, no distention, no abdominal tenderness. No guarding. No masses. Musculoskeletal: ROM normal. Skin: Warm and dry. Skin is not jaundiced. No rash Extremities: No clubbing or cyanosis. No lower extremity edema. Neurological: No focal deficits. Alert and oriented x person, place and time. Mental status is at baseline. No motor weakness. Psychiatric: Mood, behavior, thought content normal. Cooperative with exam. Medications Current Medications aspirin, 81 mg, Oral, Daily atorvastatin, 80 mg, Oral, Daily cetirizine, 5 mg, Oral, Daily enoxaparin, 40 mg, SubCUTAneous, Daily furosemide, 40 mg, IntraVENous, Once furosemide, 20 mg, Oral, Daily Glycopyrrolate-Formote rol, 2 puff, Inhalation, BID guaiFENesin, 600 mg, Oral, BID influenza, 0.5 mL, IntraMUSCular, Prior to discharge insulin lispro, 0-12 Units, SubCUTAneous, TID WC And insulin lispro, 0-12 Units, SubCUTAneous, Nightly ipratropium-albuterol, 3 mL, Nebulization, 4x daily levETIRAcetam, 750 mg, Oral, BID piperacillin-tazobacta m, 3,375 mg, IntraVENous, q8h vancomycin, 1,250 mg, IntraVENous, q24h PRN Mediations PRN medications: acetaminophen OR acetaminophen, dextrose, dextrose, glucagon (rDNA), glucose, ondansetron ODT OR ondansetron, polyethylene glycol (PEG) 3350 IV Drips/Infusions Labs CBC Results from last 7 days Lab Units 07/09/24418 WBC AUTO 10*3/uL 9.3 HEMOGLOBIN g/dL 11.6* HEMATOCRIT % 36.3 PLATELETS 10*3/uL 231 BMP: Results from last 7 days Lab Units 07/09/2441807/08/24 0515 07/07/24 1515 SODIUM mmol/L 138 139 137 POTASSIUM mmol/L 3.9 4.1 5.3* CHLORIDE mmol/L 107 107 104 CO2 mmol/L 23 26 22* BUN mg/dL 15 16 19 CREATININE mg/dL 0.83 0.81 1.00 GLUCOSE mg/dL 106 127* 205* CALCIUM mg/dL 8.5* 8.9 10.0 ABG: LIVER PROFILE Results from last 7 days Lab Units 07/09/24 04107/08/2415 07/07/24 1515 ALK PHOS U/L 77 79 98 BILIRUBIN TOTAL mg/dL 0.5 0.6 0.5 PROTEIN TOTAL g/dL 6.5 6.6 8.6* ALT U/L <6 <6 12 AST U/L 21 21 34* INR PTT No results found for: "PTT" PFT (05/22/21) - Media tab Absolute Value % Predicted Z-score FEV1/FVC 93% FEV1 0.94 44 FVC 1.01 36 TLC RV/TLC DLCO My personal interpretation: Spirometry shows no overt airflow obstruction. Reduction in vital capacity could be due to restriction or air trapping, but there are no lung volumes. Sleep study 04/08/2019 1. Moderate obstructive sleep apnea. Respiratory events were associated with oxygen desaturations to a parth of 86.0%. This apnea-hypopnea index (AHI) may be underestimated due to the absence of recorded REM sleep in the baseline portion of the study. 2. At a Bilevel PAP setting of 16/11 cmH2O, during which sleep was recorded in the supine position, the overall apnea-hypopnea index (AHI) was normalized, snoring was eliminated, and oxygen saturation was maintained above 90%. HOWEVER, during this study, the REM related apnea-hypopnea index was not normalized and remained in the severe range on pressure settings as high as 14 (more content not included)... Normal [facility] [employer] [facility] US Heart TransthoracicOrdere d By: Wicho Mc on 07-09-2024 Ao Root Index 1.55 cm/m2 [facility] [email or web address] Work Phone: Aortic Arch 2.7 cm [facility] [employer] Phone: [phone] Aortic Root 3.2 cm [facility] [employer] Work Phone: [phone] Aortic valve Orifice area by US 2.8 cm2 [facility] [employer] Phone: [phone] Ascending Aorta 3.3 cm [facility] Work Phone: [phone] Ascending Aorta Index 1.6 cm/m2 [facility] [employer] Work Phone: [phone] Est. RA Pressure 3 mmHg [facility] Work Phone: [phone] Fractional Shortening 2D 28 % 28 - 44 % [facility] [employer] Phone: Interpretation and review of laboratory results Abnormal [facility] [employer] Phone: [phone] IVC Diameter 1.5 cm [facility] [employer] Phone: [phone] IVSd 0.9 cm 0.6 - 0.9 cm [facility] [employer] Phone: [phone] LA Diameter 3.4 cm [facility] [employer] Phone: [phone] LA Size Index 1.65 cm/m2 [facility] Work Phone: LA Volume 4C 52 mL 22 - 52 mL [facility] [employer] Phone: LA Volume Index 4C 25 mL/m2 16 - 34 mL/m2 [facility] Health Work Phone: [phone] LA/AO Root Ratio 1.06 [facility] Work Phone: [phone] LV Mass 2D 142.7 g 67 - 162 g [facility] Health Work Phone: [phone] LV Mass 2D Index 69.3 g/m2 43 - 95 g/m2 [facility] [employer] Work Phone: [phone] LV RWT Ratio 0.38 [facility] [employer] Work Phone: [phone] LVIDd 4.7 cm 3.9 - 5.3 cm [facility] [employer] Work Phone: [phone] LVIDd Index 2.28 cm/m2 [facility] [employer] Work Phone: [phone] LVIDs 3.4 cm [facility] [employer] Work Phone: [phone] LVIDs Index 1.65 cm/m2 [facility] [employer] Work Phone: [phone] LVOT Cardiac Output 2.5 liter/minute [facility] [employer] Work Phone: [phone] LVOT Diameter 1.9 cm [facility] Work Phone: [phone] LVOT Mean Gradient 1 mmHg [facility] [employer] Work Phone: [phone] LVOT Peak Gradient 1 mmHg [facility] [employer] Work Phone: [phone] LVOT Peak Velocity 0.6 m/s [facility] [employer] Work Phone: [phone] LVOT Stroke Volume Index 14 mL/m2 [facility] [employer] Work Phone: [phone] LVOT SV 28.9 ml [facility] [employer] Work Phone: [phone] LVOT VTI 10.2 cm [facility] [employer] Work Phone: [phone] LVPWd 0.9 cm 0.6 - 0.9 cm [facility] [employer] Work Phone: [phone] PASP 26 mmHg [facility] [employer] Work Phone: [phone] RVSP 26 mmHg [facility] [employer] Work Phone: [phone] Sinotubular Junction 2.3 cm [facility] [employer] Work Phone: [phone] TAPSE 1.6 cm Abnormal 1.7 cm [facility] [employer] Work Phone: [phone] TR Max Velocity 2.41 m/s Liborio Mukherjee [facility] Work Phone: [phone] Peak Gradient 23 mmHg [facility] Work Phone: [phone] [facility] Work Phone: [phone] [facility] Transthoracicon Left Ventricle: Left ventricle is mildly dilated. Normal wall thickness. Mildly reduced left ventricular systolic function. The EF by visual approximation is 45%. Mild hypokinesis of the following segments: mid anteroseptal. Indeterminate diastolic function due to poor image quality. Right Ventricle: Not well visualized. Mildly reduced systolic function. TAPSE is abnormal. Aortic Valve: Mild (1+) regurgitation with a centrally directed jet. Mitral Valve: Valve structure is normal. Mild annular calcification (posterior). Mild to moderate (1-2+) regurgitation. Tricuspid Valve: RVSP is 26 mmHg. Left Atrium: Left atrium size is normal. IVC/SVC: IVC diameter is normal and decreases greater than 50% during inspiration; therefore the estimated right atrial pressure is normal (~3 mmHg). This study can be compared to 1 dated May 15, 2023. On that study the LV systolic function and ejection fraction were normal. On this study, the anteroseptal region appears abnormal. This may be from ventricular pacing or a ventricular conduction delay not related to the pacer. Left Ventricle Left ventricle is mildly dilated. Normal wall thickness. Mildly reduced left ventricular systolic function. The EF by visual approximation is 45%. Mild hypokinesis of the following segments: mid anteroseptal. Indeterminate diastolic function due to poor image quality. Right Ventricle Not well visualized. Mildly reduced systolic function. TAPSE is abnormal. Left Atrium Left atrium size is normal. Right Atrium Not well visualized. IVC/SVC IVC diameter is normal and decreases greater than 50% during inspiration; therefore the estimated right atrial pressure is normal (~3 mmHg). Mitral Valve Valve structure is normal. Mild annular calcification (posterior). Mild to moderate (1-2+) regurgitation. No stenosis noted. Tricuspid Valve Valve structure is normal. Mild (1+) regurgitation. RVSP is 26 mmHg. Aortic Valve Trileaflet. No cusp thickening. No cusp calcification. Mild (1+) regurgitation with a centrally directed jet. No stenosis. Pulmonic Valve The pulmonic valve visualization is suboptimal but appears to be functioning normally. Trace regurgitation. Ascending Aorta Normal sized sinuses of Valsalva and ascending aorta. Pericardium No pericardial effusion. Septum No interatrial shunt visualized on color Doppler. Pulmonary Artery Pulmonary hypertension not present. Study Details Image quality: suboptimal. Heart rate: 96 bpm. Blood pressure: 96/50 mmHg. Cardiac history: PPM/AICD. Technical qualifiers: Technically difficult study due to patient's body habitus and procedure performed with the patient in a supine position. Patient declined use of ultrasound enhancement agent to enhance imaging. CV CPACS Vital signson 07-09-2024 Heart rate 83 /min bpm [facility] XR Chest Single viewon 07-09 FINDINGS AND IMPRESSION: SUPPORT DEVICES: Unchanged left pacemaker OSSEOUS STRUCTURES: Unremarkable. HEART AND MEDIASTINUM: The cardiomediastinal silhouette appears unchanged from the prior exam. LUNGS AND PLEURA: Unchanged pulmonary edema. No new consolidation. No sizable pleural effusion. Report Dictated on Electronically Signed By: Rohith Casey MD Electronically Signed Date/Time: 07/09/2024 8:52 AM [facility] RADIOLOGY SYSTEM Patient Name: ANA LOPES : 1945 Exam Date/Time: 07/09/2024 08:42 Procedure: XR CHEST 1 VIEW Ordering Provider: MCKEON MANSUR Reason For Exam: follow-up pulm edema CHEST CLINICAL INDICATION: Pulmonary edema TECHNIQUE: AP portable chest COMPARISON: 07/07/2024 [facility] Rohith Casey MD - 07/09/2024 Patient Name: ANA LOPES : 1945 Exam Date/Time: 07/09/2024 08:42 Procedure: XR CHEST 1 VIEW Ordering Provider: MCKEON MANSUR Reason For Exam: follow-up pulm edema CHEST CLINICAL INDICATION: Pulmonary edema TECHNIQUE: AP portable chest COMPARISON: 07/07/2024 IMPRESSION: FINDINGS AND IMPRESSION: SUPPORT DEVICES: Unchanged left pacemaker OSSEOUS STRUCTURES: Unremarkable. HEART AND MEDIASTINUM: The cardiomediastinal silhouette appears unchanged from the prior exam. LUNGS AND PLEURA: Unchanged pulmonary edema. No new consolidation. No sizable pleural effusion. Report Dictated on Electronically Signed By: Rohith Casey MD Electronically Signed Date/Time: 07/09/2024 8:52 AM EST [facility] [employer] Radiology Study observation (narrative) [facility] He alth XR Chest Single viewOrdered By: Rohith Casey on 07-09-2024 [facility] [employer] Work Phone: CBC W Auto Differential pane l (Bld)Ordered By: Carrington Olmos on 07-08-2024 Basophils (Bld) [#/Vol] 0.1 10*3/uL 0.0 - 0.2 10*3/uL [facility] [employer] Basophils/100 WBC (Bld) 0.7 % 0.0 - 2.0 % [facility] [employer] Eosinophils (Bld) [#/Vol] 0.6 10*3/uL High 0.0 - 0.5 10*3/uL [facility] [employer] Eosinophils/100 WBC (Bld) 6.6 % High 0.0 - 6.0 % [facility] [employer] Erythrocyte distribution width (RBC) [Ratio] 15.7 % High 11.5 - 15.0 % [facility] [employer] Hematocrit (Bld) [Volume fraction] 39.2 % 35.0 - 47.0 % [facility] [employer] Hemoglobin (Bld) [Mass/Vol] 12.4 g/dL 11.7 - 16.0 g/dL [facility] [employer] Immature granulocytes (Bld) [#/Vol] 0 10*3/uL NINF - 0.1 10*3/uL [facility] [employer] Immature granulocytes/100 WBC (Bld) 0.2 % 0.0 - 2.0 % [facility] [employer] Interpretation and review of laboratory results Abnormal [facility] [employer] Lymphocytes (Bld) [#/Vol] 2.8 10*3/uL 1.0 - 4.3 10*3/uL [facility] [employer] Lymphocytes/100 WBC (Bld) 30.9 % 15.0 - 45.0 % [facility] MCH (RBC) [Entitic mass] 29.6 pg 26. 0 - 34.0 pg [facility] [employer] MCHC (RBC) [Mass/Vol] 31.6 % 30.5 - 36.0 % [facility] [employer] MCV (RBC) [Entitic vol] 93.6 fL 77.0 - 99.0 fL [facility] Monocytes (Bld) [#/Vol] 0.8 10*3/uL 0.0 - 0.9 10*3/uL [facility] Monocytes/100 WBC (Bld) 8.3 % 5.0 - 13.0 % [facility] Neutrophils (Bld) [#/Vol] 4.8 10*3/uL 1.8 - 7.5 10*3/uL [facility] Neutrophils/100 WBC (Bld) 53.3 % 38.0 - 82.0 % [facility] Nucleated RBC/100 WBC (Bld) [Ratio] 0 % [facility] [employer] Platelet mean volume (Bld) [Entitic vol] 9.2 fL 9.0 - 12.7 fL [facility] Platelets (Bld) [#/Vol] 277 10*3/uL 140 - 440 10*3/uL [facility] RBC (Bld) [#/Vol] 4.19 10*6/uL 3.80 - 5.2 0 10*6/uL [facility] WBC (Bld) [#/Vol] 9.1 10*3/uL 3.6 - 10.7 10*3/uL [facility] CBC WITH AUTO DIFFERENTIALon 07-08-2024 Basophils (Bld) [#/Vol] 0.1 10*3/uL Normal 0.0-0.2 [facility] Comment on above: Performed By: #### L [id number] ####Supply Officer: JUSTICE ABDULLAHI ([id number])[facility] ([facility])[address] [place] [address] Basophils/100 WBC (Bld) 0.7 % Normal 0.0-2.0 S [facility] Comment on above: Performed By: #### L [id number] ####Supply Officer: JUSTICE ABDULLAHI ([id number])[facility] ([facility])[address] Eosinophils (Bld) [#/Vol] 0.6 10*3/uL High 0.0-0.5 [facility] Comment on above: Performed By: #### L [id number] ####Supply Officer: JUSTICE ABDULLAHI ([id number])[facility] ([facility])[address] Eosinophils/100 WBC (Bld) 6.6 % High 0.0-6.0 [facility] Comment on above: Performed By: #### L [id number] ####Supply Officer: JUSTICE ABDULLAHI ([id number])[facility] ([facility])[address] Erythrocyte distribution width (RBC) [Ratio] 15.7 % High 11.5-15.0 [facility] Comment on above: Performed By: #### L [id number] ####Supply Officer: JUSTICE ABDULLAHI ([id number])[facility] ([facility])[address] [place] [address] Hematocrit (Bld) [Volume fraction] 39.2 % Normal 35.0-47.0 [facility] Comment on above: Performed By: #### L [id number] ####Supply Officer: JUSTICE ABDULLAHI ([id number])[facility] ([facility])[address] [place] [address] Hemoglobin (Bld) [Mass/Vol] 12.4 g/dL Normal 11.7-16.0 [facility] Comment on above: Performed By: #### L [id number] ####Supply Officer: JUSTICE ABDULLAHI ([id number])[facility])[address] IMMATURE GRANS % 0.2 % Normal 0.0-2.0 [facility] Comment on above: Performed By: #### L [id number] ####Supply Officer: JUSTICE ABDULLAHI ([id number])[facility] ([facility])[address] IMMATURE GRANS ABSOLUTE 0.0 10*3/uL Normal <0.1 [facility] Comment on above: Performed By: #### L [id number] ####Supply Officer: JUSTICE ABDULLAHI ([id number])[facility] ([facility])[address] Lymphocytes (Bld) [#/Vol] 2.8 10*3/uL Normal 1.0-4.3 [facility] Comment on above: Performed By: #### L [id number] ####Supply Officer: JUSTICE ABDULLAHI ([id number])[facility] ([facility])[address] Lymphocytes/100 WBC (Bld) 30.9 % Normal 15.0-45.0 [facility] Comment on above: Performed By: #### L [id number] ####Supply Officer: JUSTICE ABDULLAHI ([id number])[facility]ENT[facility]uth JONASN ([facility])[address] MCH (RBC) [Entitic mass] 29.6 pg Normal 26.0-34.0 [facility] Comment on above: Performed By: #### L [id number] ####Supply Officer: JUSTICE ABDULLAHI ([id number])[facility]uth JONASMichael ([facility])[address] MCHC 31.6 % Normal 30.5-36.0 [facility] Comment on above: Performed By: #### L [id number] ####Supply Officer: JUSTICE ABDULLAHI ([id number])[facility] LUCEROJAZMIN ([facility])[address] MCV (RBC) [Entitic vol] 93.6 fL Normal 77.0-99.0 [facility] Comment on above: Performed By: #### L [id number] ####Supply Officer: JUSTICE ABDULLAHI ([id number])[facility] LUCEROLOYDN ([facility])[address] Monocytes (Bld) [#/Vol] 0.8 10*3/uL Normal 0.0-0.9 [facility] Comment on above: Performed By: #### L [id number] ####Supply Officer: JUSTICE ABDULLAHI ([id number])[facility] ([facility])[address] [place] [address] [place] Monocytes/100 WBC (Bld) 8.3 % Normal 5.0-13.0 [facility] Comment on above: Performed By: #### L [id number] ####Supply Officer: JUSTICE ABDULLAHI ([id number])[facility] [place] ([facility])[address] NEUTROPHILS ABSOLUTE 4.8 10*3/uL Normal 1.8-7.5 [facility] Comment on above: Performed By: #### L [id number] ####Supply Officer: JUSTICE ABDULLAHI ([id number])[facility] [place] ([facility])[address] Neutrophils/100 WBC (Bld) 53.3 % Normal 38.0-82.0 [facility] Comment on above: Performed By: #### L [id number] ####Supply Officer: JUSTICE ABDULLAHI ([id number])[facility] [place] ([facility])[address] NRBC 0.0 /100 WBCs Normal 0.0-2.0 [facility] Comment on above: Performed By: #### L [id number] ####Supply Officer: JUSTICE ABDULLAHI ([id number])[facility] [place] ([facility])[address] [place] [address] [place] Platelet mean volume (Bld) [Entitic vol] 9.2 fL Normal 9.0-12.7 [facility] Comment on above: Performed By: #### L [id number] ####Supply Officer: JUSTICE ABDULLAHI ([id number])[facility] [place] ([facility])[address] [place] [address] [place] Platelets (Bld) [#/Vol] 277 10*3/uL Normal 140-440 [facility] Comment on above: Performed By: #### L [id number] ####Supply Officer: JUSTICE ABDULLAHI ([id number])[facility]ENT[facility]uth [facility] ([facility])[address] RBC (Bld) [#/Vol] 4.19 10*6/uL Normal 3.80-5.20 [facility] Comment on above: Performed By: #### L [id number] ####Supply Officer: JUSTICE OSPINANARA ([id number])[facility] ([facility])[address] WBC (Bld) [#/Vol] 9.1 10*3/uL Normal 3.6-10.7 [facility] Comment on above: Performed By: #### L [id number] ####Supply Officer: JUSTICE ABDULLAHI ([id number])[facility] ([facility])[address] [place] [address] COMPREHENSIVE METABOLIC PANE Jamie 07-08-2024 Albumin [Mass/Vol] 2.7 g/dL Low 3.4-4.8 [facility] Comment on above: Performed By: #### L [id number], [id number], [id number] ####Supply Officer: JUSTICE ABDULLAHI ([id number])[facility] ([facility])[address] [place] [address] ALP [Catalytic activity/Vol] 79 U/L Normal 40-150 [facility] Comment on above: Performed By: #### L [id number], [id number], [id number] ####Supply Officer: JUSTICE ABDULLAHI ([id number])[facility] ([facility])[address] ALT [Catalytic activity/Vol] U/L Normal <30 [facility] Comment on above: Performed By: #### L [id number], [id number], [id number] ####Supply Officer: JUSTICE ABDULLAHI ([id number])[facility] ([facility])[address] [place] [address] Anion gap [Moles/Vol] 6 mmol/L Normal 3-13 [facility] Comment on above: Performed By: #### L [id number], [id number], [id number] ####Supply Officer: JUSTICE KAYLEN ([id number])[facility]ENTERRuth MOE ([facility])[address] AST [Catalytic activity/Vol] 21 U/L Normal <34 [facility] Comment on above: Performed By: #### L [id number], [id number], [id number] ####Supply Officer: JUSTICE KAYLEN ([id number])[facility] ([facility])[address] Bilirubin [Mass/Vol] 0.6 mg/dL Normal <1.2 [facility] Comment on above: Performed By: #### L [id number], [id number], [id number] ####Supply Officer: JUSTICE KAYLEN ([id number])[facility] ([facility])[address] Calcium [Mass/Vol] 8.9 mg/dL Normal 8.8-10.0 [facility] Comment on above: Performed By: #### L [id number], [id number], [id number] ####Supply Officer: JUSTICE RODRIGUEZMALICKNARA ([id number])[facility]ENT[facility]uth [facility] ([facility])[address] [place] [address] [place] Chloride [Moles/Vol] 107 mmol/L Normal 98-107 [facility] Comment on above: Performed By: #### L [id number], [id number], [id number] ####Supply Officer: JUSTICE OSPINANARA ([id number])[facility] ([facility])[address] [place] [address] [place] CO2 [Moles/Vol] 26 mmol/L Normal 23-31 [facility] Comment on above: Performed By: #### L [id number], [id number], [id number] ####Supply Officer: JUSTICE RODRIGUEZGERONIMO ([id number])[facility] ([facility])[address] [place] [address] [place] Creatinine [Mass/Vol] 0.81 mg/dL Normal 0.57-1.11 [facility] Comment on above: Performed By: #### L AB17, [id number], [id number] ####Supply Officer: JUSTICE ABDULLAHI ([id number])[facility] ([facility])[address] [place] [address] GLOMERULAR FILTRATION RATE ML/MIN/1.73 SQ M.PREDICTED 74.9 mL/min/1.73m*2 Normal >60.0 [facility] Comment on above: Result Comment: Calc ulation based on the Chronic Kidney Disease Epidemiology Collaboration (CKD-EPI) equation refit without adjustment for race Performed By: #### L [id number], [id number], [id number] ####Supply Officer: JUSTICE ABDULLAHI ([id number])[facility] ([facility])[address] [place] [address] Glucose [Mass/Vol] 127 mg/dL High 82-115 [facility] Comment on above: Performed By: #### Ankur AB17, [id number], [id number] ####Supply Officer: JUSTICE ABDULLAHI ([id number])[facility] ([facility])[address] [place] [address] Potassium [Moles/Vol] 4.1 mmol/L Normal 3.5-5.1 [facility] Comment on above: Result Comment: [facility] potassium values may be up to 0.5 mmol/L lower than serum values. Performed By: #### Ankur AB17, [id number], [id number] ####Supply Officer: JUSTICE ABDULLAHI ([id number])[facility] ([facility])[address] [place] [address] Protein [Mass/Vol] 6.6 g/dL Normal 6.4-8.3 [facility] Comment on above: Performed By: #### L AB17, [id number], [id number] ####Supply Officer: JUSTICE ABDULLAHI ([id number])[facility])[address] [place] [address] Sodium [Moles/Vol] 139 mmol/L Normal 136-145 [facility] Comment on above: Performed By: #### L AB17, [id number], [id number] ####Supply Officer: JUSTICE ABDULLAHI ([id number])[facility] ([facility])[address] [place] [address] Urea nitrogen [Mass/Vol] 16 mg/dL Normal 9-23 [facility] Comment on above: Performed By: #### L AB17, [id number], [id number] ####Supply Officer: JUSTICE ABDULLAHI ([id number])[facility] ([facility])[address] [place] [address] CT CHEST WO IV CONTRASTon CT CHEST WO IV CONTRAST [facility] 1945 [id number] Exam Date/Time: 07/08/2024 10:43 Procedure: CT CHEST WO IV CONTRAST Ordering Provider: MCKEON MANSUR Reason For Exam: Pneumonia, complication suspected, xray done Examination: CT chest Indication: Pneumonia, complication suspected, xray done Technique: Axial CT images of the chest were obtained from the thoracic inlet through the lung bases at 1 mm intervals without IV contrast. Dose reduction was employed with automatic exposure control. Coronal and sagittal reconstructions were also provided for review. Findings: The main pulmonary artery is slightly enlarged, relative to the ascending thoracic aorta. It measures approximately 3.7 cm in the ascending thoracic aorta measures approximately 3.3 cm. Moderate left-sided coronary artery calcification present. Heart size is slightly enlarged. Fairly extensive mitral valve annular calcification present. There is a left-sided cardiac pacemaker present. Mild to moderate calcification of the thoracic aorta is noted. There is no significant adenopathy demonstrated. There are small subcentimeter mediastinal lymph nodes. There is no sizable pleural or pericardial effusion. There is extensive coarsening of interstitium with scarring/fibrotic changes. The visualized upper abdomen is grossly unremarkable. Small to moderate anterior osteophytes of the spine are present. IMPRESSION: Impression: Suspected pulmonary edema, superimposed on chronic interstitial changes, scarring/fibrosis. Short-term interval follow-up recommended. Cardiomegaly with cardiac pacemaker. Slightly enlarged main pulmonary artery, which may be seen with pulmonary arterial hypertension. Report Dictated on Electronically Signed By: Khang Pinedo MD Electronically Signed Date/Time: 07/08/2024 11:21 AM EST Table formatting from the original note was not included. Unwitnessed fall, found by fpc staff Normal [facility] CT Chest WO contraston 07-08 Impression: Suspected pulmonary edema, superimposed on chronic interstitial changes, scarring/fibrosis. Short-term interval follow-up recommended. Cardiomegaly with cardiac pacemaker. Slightly enlarged main pulmonary artery, which may be seen with pulmonary arterial hypertension. Report Dictated on Electronically Signed By: Khang Pinedo MD Electronically Signed Date/Time: 07/08/2024 11:21 AM EST [facility] [employer] [facility] Patient Name: ANA LPOES DOB: 1945 Exam Date/Time: 07/08/2024 10:43 Procedure: CT CHEST WO IV CONTRAST Ordering Provider: MCKEON MANSUR Reason For Exam: Pneumonia, complication suspected, xray done Examination: CT chest Indication: Pneumonia, complication suspected, xray done Technique: Axial CT images of the chest were obtained from the thoracic inlet through the lung bases at 1 mm intervals without IV contrast. Dose reduction was employed with automatic exposure control. Coronal and sagittal reconstructions were also provided for review. Findings: The main pulmonary artery is slightly enlarged, relative to the ascending thoracic aorta. It measures approximately 3.7 cm in the ascending thoracic aorta measures approximately 3.3 cm. Moderate left-sided coronary artery calcification present. Heart size is slightly enlarged. Fairly extensive mitral valve annular calcification present. There is a left-sided cardiac pacemaker present. Mild to moderate calcification of the thoracic aorta is noted. There is no significant adenopathy demonstrated. There are small subcentimeter mediastinal lymph nodes. There is no sizable pleural or pericardial effusion. There is extensive coarsening of interstitium with scarring/fibrotic changes. The visualized upper abdomen is grossly unremarkable. Small to moderate anterior osteophytes of the spine are present. [facility] Khang Pinedo MD - 07/08/2024 Patient Name: ANA LOPES : 1945 [facility]#: [id number] Exam Date/Time: 07/08/2024 10:43 Procedure: CT CHEST WO IV CONTRAST Ordering Provider: MCKEON MANSUR Reason For Exam: Pneumonia, complication suspected, xray done Examination: CT chest Indication: Pneumonia, complication suspected, xray done Technique: Axial CT images of the chest were obtained from the thoracic inlet through the lung bases at 1 mm intervals without IV contrast. Dose reduction was employed with automatic exposure control. Coronal and sagittal reconstructions were also provided for review. Findings: The main pulmonary artery is slightly enlarged, relative to the ascending thoracic aorta. It measures approximately 3.7 cm in the ascending thoracic aorta measures approximately 3.3 cm. Moderate left-sided coronary artery calcification present. Heart size is slightly enlarged. Fairly extensive mitral valve annular calcification present. There is a left-sided cardiac pacemaker present. Mild to moderate calcification of the thoracic aorta is noted. There is no significant adenopathy demonstrated. There are small subcentimeter mediastinal lymph nodes. There is no sizable pleural or pericardial effusion. There is extensive coarsening of interstitium with scarring/fibrotic changes. The visualized upper abdomen is grossly unremarkable. Small to moderate anterior osteophytes of the spine are present. IMPRESSION: Impression: Suspected pulmonary edema, superimposed on chronic interstitial changes, scarring/fibrosis. Short-term interval follow-up recommended. Cardiomegaly with cardiac pacemaker. Slightly enlarged main pulmonary artery, which may be seen with pulmonary arterial hypertension. Report Dictated on Electronically Signed By: Khang Pinedo MD Electronically Signed Date/Time: 07/08/2024 11:21 AM EST [facility] Radiology Study observation (narrative) [facility] alth CT Chest WO contrastOrdered By: Khang Pinedo on 07-08-2024 [employer] Work Phone: Comprehensive metabolic 1998 panelOrdered By: Walker Guerrero on 07-08-2024 Albumin [Mass/Vol] 2.7 g/dL Low 3.4 - 4.8 g/dL [facility] ALP [Catalytic activity/Vol] 79 U/L 40 - 150 U/L [facility] ALT [Catalytic activity/Vol] U/L NINF - 30 U/L [facility] Anion gap [Moles/Vol] 6 mmol/L 3 - 13 mmol/L [facility] AST [Catalytic activity/Vol] 21 U/L NINF - 34 U/L [facility] Bilirubin [Mass/Vol] 0.6 mg/dL NINF - 1.2 mg/dL [facility] Calcium [Mass/Vol] 8.9 mg/dL 8.8 - 10. 0 mg/dL [facility] Chloride [Moles/Vol] 107 mmol/L 98 - 10 7 mmol/L [facility] CO2 [Moles/Vol] 26 mmol/L 23 - 31 mmol/L [facility] Creatinine [Mass/Vol] 0.81 mg/dL 0.57 - 1.11 mg/dL [facility] GFR/1.73 sq M.predicted (S/P/Bld) [Vol rate/Area] 74.9 mL/min - PINF [facility] Comment on above: Calculation based on the Chronic Kidney Disease Epidemiology Collaboration (CKD-EPI) equation refit without adjustment for race Glucose [Mass/Vol] 127 mg/dL High 82 - 115 mg/dL [facility] Interpretation and review of laboratory results Abnormal [facility] Potassium [Moles/Vol] 4.1 mmol/L 3.5 - 5.1 mmol/L [facility] Comment on above: Plasma potassium guillermo ues may be up to 0.5 mmol/L lower than serum values. Protein [Mass/Vol] 6.6 g/dL 6.4 - 8.3 g/dL [facility] Sodium [Moles/Vol] 139 mmol/L 136 - 145 mmol/L [facility] Urea nitrogen [Mass/Vol] 16 mg/dL 9 - 23 mg/d L [facility] Consulton 07-08-2024 Consult [facility] Pulmonary Medicine [address] [place] [address] [id number] 1945 Date of Admission - 07/07/2024 2:12 PM Date of Evaluation - 07/08/2024 Room - [facility] Hospital Day - 1 Consulting - Selwyn Lai MD;Mickey* PCP - Mayur Young Reason for Consult SOB/cough/hx COPD/MARY" History of Present Illness Ana Lopes is a 79 y.o. female admitted for possible seizure. Patient has a past medical history of: - seizures on Keppra - CHB s/p PPM - reported COPD on Anoro - chronic hypoxemic respiratory failure on 2-3 LPM - prior tobacco abuse - obesity class II - MARY, not currently on PAP therapy Patient is new to the [facility] pulmonary service, patient has never been evaluated by a supervisor patching in the past. She was given a diagnosis of COPD, currently uses Anoro, but she does not remember the names of her inhalers. She was admitted to [facility] from [facility] [place] 07/07/24 after she was found unresponsive in bed, unclear if she had a true seizure. Patient reports missing her afternoon dose of Keppra yesterday, she also states dose was reduced from 750 BID to 500 BID recently. She currently feels back to baseline, but she does endorse worsening dyspnea compared to baseline along with associated dry cough. Saturating well on 3 LPM O2. She denies fever, chills, chest pain, wheezing, orthopnea, hemoptysis, abdominal pain, nausea, vomiting, diarrhea, constipation,lighthead edness, dizziness, dysuria, hematuria, melena, hematochezia, leg pain, leg swelling. She endorses a smoking history but cannot tell me when she started or quit, just states she stopped "a long time ago." She is hemodynamically stable and in no acute distress. Active Hospital Problem List Patient Active Problem List Diagnosis Morbid obesity (HCC) Seizures (HCC) Dizziness DM2 (diabetes mellitus, type 2) ([facility]) Debility Fungal skin infection Hypertension Hypercholesteremia Lymphedema Nephrolithiasis Osteoarthrosis Migraine headache Anxiety Depression MARY (obstructive sleep apnea) COPD (chronic obstructive pulmonary disease) (HCC) GERD (gastroesophageal reflux disease) Allergic rhinitis Pneumonia due to infectious organism, unspecified laterality, unspecified part of lung Medical History Past Medical History Past Medical History: Diagnosis Date Allergic rhinitis Anxiety COPD (chronic obstructive pulmonary disease) (HCC) Debility Depression Dizziness DM2 (diabetes mellitus, type 2) ([facility]) DVT (deep venous thrombosis) (HCC) GERD (gastroesophageal reflux disease) Hypercholesteremia Hypertension Lymphedema Migraine headache Morbid obesity (CMS/HCC) (HCC) Nephrolithiasis status post perc nephrolithotomy MARY (obstructive sleep apnea) Osteoarthrosis Pneumonia Seizures (CMS/HCC) (HCC) Past Surgical History Past Surgical History: Procedure Laterality Date CHOLECYSTECTOMY 1992 EYE SURGERY 2006 orbital I and D KIDNEY STONE SURGERY 2012 right then left nephrolithotomy TONSILLECTOMY (HISTORICAL) Social History Social History Socioeconomic History Marital status: Spouse name: Not on file Number of children: Not on file Years of education: Not on file Highest education level: Not on file Occupational History Not on file Tobacco Use Smoking status: Former Smokeless tobacco: Never Tobacco comments: Quit smoking: quit in highschool Substance and Sexual Activity Alcohol use: No Alcohol/week: 0.0 standard drinks of alcohol Drug use: No Sexual activity: Not on file Other Topics Concern Not on file Social History Narrative Not on file Social Drivers of Health Financial Resource Strain: Low Risk (05/21/2023) Received from [facility], [facility] Overall Financial Resource Strain (CARDIA) Difficulty of Paying Living Expenses: Not very hard Food Insecurity: Patient Declined (12/29/2023) Received from [facility] Hunger Vital Sign Worried About Running Out of Food in the Last Year: Patient declined Ran Out of Food in the Last Year: Patient declined Transportation Needs: Patient Declined (12/29/2023) Received from [facility] PRAPARE - Transportation Lack of Transportation (Medical): Patient declined Lack of Transportation (Non-Medical): Patient declined Physical Activity: Not on file Stress: Not on file Social Connections: Not on file Intimate Partner Violence: Not on file Housing Stability: Patient Declined (12/29/2023) Received from [facility] Housing Stability Vital Sign Unable to Pay for Housing in the Last Year: Patient declined Number of Places Lived in the Last Year: Not on file Unstable Housing in the Last Year: Patient declined Family History Family History Problem Relation Name Age of Onset Dementia Mother Immunization History Immunization History Administered Date(s) Administ (more content not included)... Normal [facility] ED Nursing Noteon 07-08-2024 ED Nursing Note Requested sputum sample from pt. Pt states she is unable to cough up any sputum at this time [facility] ED Nursing Note Secure chat with pharmacist for retiming of vancomycin due to pt being difficult IV access and only having one PIV with zosyn running which is not compatible with vancomycin per lexicomp Normal [facility] ED Nursing Note Meal tray ordered Normal [facility] ED Nursing Note Meal tray still not arrived. Called dietary and reordered tray. Per dietary pt was showing up in ED room 24. Dietary updated pt room on their end and will be delivering tray shortly. Normal [facility] ED Nursing Note Meal tray ordered Normal [facility] ED Nursing Note Called lab to see if pt urine sample is available for legionella add-on. Normal [facility] HEMOGLOBIN A1Con 07-08-2024 Glucose [Mass/Vol] 126 mg/dL Normal [facility] Comment on above: Result Comment: FIDELINA Woo COMMENTS: If not done within the last 3 mos HbA1c values of 5.7-6.4 percent indicate an increased risk for developing diabetes mellitus. HbA1c values greater than or equal to 6.5 percent are diagnostic of diabetes mellitus. For diagnosis of diabetes in individuals without unequivocal hyperglycemia, results should be confirmed by repeat testing. Performed By: #### L [id number] ####Supply Officer: JUSTICE ABDULLAHI ([id number])[facility] ([facility])[address] [place] [address] HEMOGLOBIN A1C 6.0 %HbA1C High <5.7 [facility] Comment on above: Result Comment: Norm al less than 5.7% Prediabetes 5.7% to 6.4% Diabetes 6.5% or higher --HgbA1C levels may not be accurate in patients who have renal disease, received recent blood transfusions, are anemic, or who have dyshemoglobinemia. Performed By: #### L [id number] ####Supply Officer: JUSTICE ABDULLAHI ([id number])[facility] ([facility])[address] [place] [address] LACTIC ACID WITH REFLEXon Lactate [Moles/Vol] 0.9 mmol/L Normal 0.5-2.2 [facility] Comment on above: Performed By: #### L [id number] #### Supply Officer: JUSTICE ABDULLAHI ([id number]) [facility]) [address] [place] [address] LEVETIRACETAM LEVEL (BKR QUE ST)on 07-08-2024 QUEST LEVETIRACETAM, IMMUNOASSAY 13.8 mcg/mL Normal 6.0-46.0 [facility] Comment on above: Result Comment: Brivaracetam (Briviact(R), Rikelta(R)) exhibits significant cross-reactivity in the Levetiracetam (Keppra(R), Spritam(R)) immunoassay. If Brivaracetam has been prescribed, order test code 15618 Levetiracetam by LCMSMS. Test Performed by [facility], [employer] [facility], [address] [place] [address] Scooter Hairston M.D., Ph.D., Director of Laboratories , CLIA [id number] Performed By: #### L [id number] #### Supply Officer: JUSTICE ABDULLAHI ([id number]) [facility] ([facility]) [address] [place] [address] Laboratory - Chemistry and C hemistry - challengeon 07-08-2024 Glucose [Mass/Vol] 154 mg/dL High 70 - 100 mg/dL [facility] Glucose [Mass/Vol] 174 mg/dL High 70 - 100 mg/dL [facility] Glucose [Mass/Vol] 147 mg/dL High 70 - 100 mg/dL [facility] Glucose [Mass/Vol] 132 mg/dL High 70 - 100 mg/dL [facility] Procalcitonin [Mass/Vol] 0.02 ng/mL [facility] - 0.07 ng/mL [facility] Average glucose Estimated from glycated hemoglobin (Bld) [Mass/Vol] 126 mg/dL [facility] Lactate [Moles/Vol] 0.9 mmol/L 0.5 - 2. 2 mmol/L [facility] Laboratory - Drug toxicology on 07-08-2024 Vancomycin [Mass/Vol] 13.2 ug/mL [facility] Laboratory - Hematology and Cell countson 07-08-2024 HbA1c (Bld) [Mass fraction] 6 % High [facility] Comment on above: Normal less than 5.7 % Prediabetes 5.7% to 6.4% Diabetes 6.5% or higher --HgbA1C levels may not be accurate in patients who have renal disease, received recent blood transfusions, are anemic, or who have dyshemoglobinemia. NT PRO BNPon 07-08-2024 Natriuretic peptide B (Bld) [Mass/Vol] 1548 pg/mL High <450 [facility] [facility] Comment on above: Performed By: #### L [id number] #### Supply Officer: JUSTICE ABDULLAHI ([id number]) [facility] ([facility]) [address] Natriuretic peptide B [Mass/ Vol]on 07-08-2024 Interpretation and review of laboratory results Abnormal [facility] Natriuretic peptide B (Bld) [Mass/Vol] 1548 pg/mL High NINF - 450 pg/mL [facility] [facility] No Panel Informationon 07-08 Interpretation and review of laboratory results Abnormal [facility] Performed by: [facility], [address] [place] [id number] CLIA ID: [id number] [facility] Interpretation and review of laboratory results Abnormal [facility] Performed by: [facility], [address] [place] [id number] CLIA ID: [id number] [facility] [facility] Interpretation and review of laboratory results Abnormal [facility] Performed by: [facility], [address] [place] [id number] CLIA ID: [id number] [facility] [facility] Interpretation and review of laboratory results Abnormal [facility] Performed by: [facility], [address] [place] [id number] CLIA ID: [id number] [facility] Interpretation and review of laboratory results Abnormal [facility] HbA1c values of 5.7-6.4 percent indicate an increased risk for developing diabetes mellitus. HbA1c values greater than or equal to 6.5 percent are diagnostic of diabetes mellitus. For diagnosis of diabetes in individuals without unequivocal hyperglycemia, results should be confirmed by repeat testing. [facility] Toxicity is seen at concentrations >80-100 ug/mL Therapeutic (Peak) range: 20-40 Therapeutic (Trough) range: 5-10 [facility] Interpretation and review of laboratory results Normal [facility] No Panel InformationOrdered By: David Jacques on 07-08-2024 Interpretation and review of laboratory results Normal [facility] Legionella pneumophila Ag Not detected Not Detected [facility] Streptococcus pneumoniae Ag Not detected Not Detected [facility] Methodology: Lateral flow enzyme immunoassay This assay is approved for detection of antigens to Streptococcus pneumoniae and Legionella pneumophila serogroup 1; however, other L. pneumophila serogroups may also be detected. [facility] PROCALCITONIN TESTon 025 PROCALCITONIN 0.02 ng/mL Normal <0.07 [facility] Comment on above: Result Comment: FIDELINA Woo COMMENTS: PCT <0.50 = Low risk of severe sepsis and/or septic shock. PCT >2.00 = High risk of severe sepsis and/or septic shock. Performed By: #### L [id number], [id number], [id number] ####Supply Officer: JUSTICE ABDULLAHI ([id number])[facility] ([facility])[address] [place] [address] Procalcitonin [Mass/Vol]on 0 07-08-2024 Interpretation and review of laboratory results Normal [facility] PCT <0.50 = Low risk of severe sepsis and/or septic shock. PCT >2.00 = High risk of severe sepsis and/or septic shock. [facility] Progress Noteon 07-08-2024 Progress Note Nutrition Assessment Type and Reason for Visit: Initial, Consult (Enrique) Nutrition Recommendations/Plan: Per MNT protocol, downgraded diet per SENIOR RADIATION THERAPIST recommendations to: Soft and Bite Sized: 5 carbohydrate choices/75 g CHO per meal diet Assist patient ion room-service participation and encourage patient to select well balanced meals Please document all oral intake in EMR for most accurate nutrient intake assessment As able, please obtain weekly standing scale weights for most accurate anthropometric data and calculation of macronutrient and fluid needs RDN to continue to monitor weekly: fluid accumulation, weight, skin integrity, trends in lab values, tolerance of PO, improvement in clinical status, discharge planning. 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 Presented to [facility] after an unwitnessed fall from [facility] [place]. Significant labs on admit: K+(5.3), Mg+(1.5), AST(34), WBC(10.9), lactic acid(2.9), troponins(45->33). +Urine with nitrated and leukocytes. Chest imaging on admit with Bilateral mild interstitial infiltrates. Head CT without evidence of an acute intracranial abnormality. Pulmonology consulted, recommending empiric diuresis and antibiotics. Recommending nocturnal BiPAP. Resting in bed at time of assessment, irritable that her lunch ahs not yet been delivered. Alerted patient that it may take up to one hour to deliver. Last oral intake was ?tuna casserole for supper yesterday?. Denies: pain, nausea, GI distress when eating. Per review of chart on [employer] diet at facility. Per patient UBW is 228#,confirmed with SNF- weight noted on 06/11/24. Difficult to keep on track regarding diet and nutrition concerns as patient was focused on ?that nurse forgetting to give me my medication. And she called me a liar!?. Patient listed many of the medications she was prescribed to RDN. Deferred NFPE Estimated Daily Nutrient Needs: Energy Requirements Based On: Kcal/kg Weight Used for Energy Requirements: [place] Weight for Energy Calculation (kg): 55 kg Total Energy Requirements (kcals/day): 3639-4084 (25-30 kcal/kg IBW) Weight Used for Protein Requirements: [place] Weight in Kg Used for Protein Requirements: 55 kg Estimated Total Protein (g/day): 55-83 (1.0-1.5 g protein/kg IBW) Estimated Daily Total Fluid (ml/day): per MD Nutrition Related Findings: +I/O balance, A+Ox3. +edentulous, Enrique score=12. SENIOR RADIATION THERAPIST recommending Soft and Bite Sized Diet. Meds: Lovenox, insulin, Keppra, Zosyn. Labs: BNP(1548), BGL(114->132->147). Wound Type: Wound Consult Pending Current Nutrition Therapies: Adult diet Dysphagia - Soft and Bite Sized; 5 carb choices (75 gm/meal) Current Oral Intake Average Meal Intake: Unable to assess (No PO since admit) Average Supplements Intake: None Ordered Anthropometric Measures: Height: 162.6 cm (5' 4") Current Body Weight: 102 kg (225 lb 5 oz) Weight Source: Bed Scale Admission Body Weight: 103 kg (228 lb) (stated) Usual Body Weight: 103 kg (228 lb) (per EMR--> 220# 10/03/23 and 10/15/23; 229.5# 12/28/23. per SNF 28# on 06/11/24) % Weight Change (Calculated): -1.2 [place] Body Weight (lbs) (Calculated): 120 lbs [place] Body Weight (Kg) (Calculated): 55 kg % [place] Body Weight (Calculated): 187.8 % BMI (kg/m2) (Calculated): 38.7 Weight Adjustment For: No Adjustment BMI Categories: Obese Class 2 (BMI 35.0 -39.9) Nutrition Diagnosis: Altered nutrition-related lab values related to endocrine dysfuntion as evidenced by lab values related to as evidenced by Nutrition Interventions: Nutrition Education/Counseling: Education not indicated Coordination of Nutrition Care: Continue to monitor while inpatient, Speech Therapy Plan of Care discussed with: patient Goals: Goals: PO intake 50% or greater, prior to discharge Nutrition Monitoring and Evaluation: Behavioral-Environment al Outcomes: None Identified Food/Nutrient Intake Outcomes: Food and Nutrient Intake Physical Signs/Symptoms Outcomes: Biochemical Data, Chewing or Swallowing, GI Status, Meal Time Behavior, Hemodynamic Status, Weight, Skin, Fluid Status or Edema, Nutrition Focused Physical Findings, Nausea or Vomiting Discharge Planning: Continue current diet Nazia Mathis RDN, LDN, Contact: *[phone] [facility] Progress Note Speech-Language Pathology SPEECH LANGUAGE PATHOLOGY [facility] Bedside Swallow Evaluation Patient Name: Ana Lopes Evaluation Date: 07/08/2024 Date of : 1945 Admission Date: 07/07/2024 2:12 PM Age: 79 y.o. Room/Bed: / IMPRESSION: No s/s oropharyngeal dysphagia. No overt clinical s/s pulmonary compromise with PO. Risk factors for aspiration include GERD, MARY, COPD, pna rule out. RECOMMENDATION: Recommend Soft and bite-sized solids and Thin liquids and meds as tolerated and the following precautions: - Upright positioning for all PO intake - Slow rate of intake - Small bites/sips - Alternate solid and liquids - Consistent mouth care Dysphagia NOMS: Level 6: Swallowing is safe, and individual eats and drinks independently and requires no more than minimal cueing. Individual usually self-cues when difficulty occurs. May need to avoid specific food items (e.g., popcorn) or require additional time (due to difficulty with mastication). Pt would benefit from skilled acute SENIOR RADIATION THERAPIST services to address least restrictive diet. Frequency: 3 days/wk for 2 weeks Barriers: None Prognosis: good D/C Recommendations: to be determined Subjective Patient alert and cooperative. Seen upright in bed. Answers all basic questions with clear, strong vocal quality. Follows all basic commands. Visitors at bedside - RN. Spoke with RN, Savannah, who cleared pt to be evaluated. Dysphagia History: No history of SENIOR RADIATION THERAPIST services in EMR with retrospective chart review Baseline Diet: "They have me on ground meat at the [facility]" mechanical soft? Current Diet: Dietary Orders (From admission, onward) Start Ordered 07/07/242146 Adult diet Regular; 4 carb choices (60 gm/meal) Diet effective now Question Answer Comment Diet type Regular Carbohydrate restriction: 4 carb choices (60 gm/meal) 07/07/242145 Tube Feeding: no Tracheostomy: no Recent Chest Xray/CT of Chest: XR chest 1 view 07/07/2024 Impression Mild interstitial infiltrates bilaterally may be due to edema or interstitial pneumonia. Report Dictated on Electronically Signed By: Dawood Cosme DO Electronically Signed Date/Time: 07/07/2024 3:37 PM EST Oxygen: Oxygen Therapy: Supplemental oxygen O2 Delivery Method: Nasal cannula O2 Flow Rate (L/min): (S) 3 L/min (decreased to 3L N[place]) Past Medical History: Past Medical History: Diagnosis Date Allergic rhinitis Anxiety COPD (chronic obstructive pulmonary disease) ([facility]) Debility Depression Dizziness DM2 (diabetes mellitus, type 2) ([facility]) DVT (deep venous thrombosis) ([facility]) GERD (gastroesophageal reflux disease) Hypercholesteremia Hypertension Lymphedema Migraine headache Morbid obesity (CMS/HCC) ([facility]) Nephrolithiasis status post perc nephrolithotomy MARY (obstructive sleep apnea) Osteoarthrosis Pneumonia Seizures ([facility]/HCC) ([facility]) Past Surgical History: Past Surgical History: Procedure Laterality Date CHOLECYSTECTOMY 1991 EYE SURGERY 2005 orbital I and D KIDNEY STONE SURGERY 2011 right then left nephrolithotomy TONSILLECTOMY (HISTORICAL) Admission Diagnosis: Patient Active Problem List Diagnosis Date Noted Pneumonia due to infectious organism, unspecified laterality, unspecified part of lung 07/07/2024 Fungal skin infection 06/07/2015 Morbid obesity ([facility]) 03/04/2015 Seizures ([facility]) 03/04/2015 Dizziness 03/04/2015 DM2 (diabetes mellitus, type 2) ([facility]) 03/04/2015 Debility 03/04/2015 Hypertension 03/04/2015 Hypercholesteremia 03/04/2015 Lymphedema 03/04/2015 Nephrolithiasis 03/04/2015 Osteoarthrosis 03/04/2015 Migraine headache 03/04/2015 Anxiety 03/04/2015 Depression 03/04/2015 MARY (obstructive sleep apnea) 03/04/2015 COPD (chronic obstructive pulmonary disease) ([facility]) 03/04/2015 GERD (gastroesophageal reflux disease) 03/04/2015 Allergic rhinitis 03/04/2015 History of Present Illness: Ana Lopes is a 79 y.o. female who presents to the emergency department patient presents with altered mental status. She said she lowered her self to the ground. She has history of seizures. She has had cough congestion. Patient overall poor historian. By squad. Sent in from [facility]. Patient Complaint: "I can't chew real hard stuff like peanuts or crusty bread" Pain: Pt denies any current pain. PPE Worn: surgical mask, gloves Objective Bedside swallow eval completed. Oral Motor Mechanism Adequate structure, strength, and ROM in lingual, labial, and buccal musculature. 1 volitional swallow. Edentulous Oral Hygiene: moist, clean Swallowing Examination PO Trials - thin liquid, (cup edge, self administered) - puree, (fed by clinician) - soft and bite sized solids - regular solids Oral Phase Pt with adequate oral receipt of PO trials. No anterior spillage. Mastication with regular appeared disorganized, incomplete, and prolonged. Oral transit time a (more content not included)... Normal [facility] Respiratory pathogens DNA an d RNA panel ISRAEL+non-probe (Nph)on 07-08-2024 Adenovirus Not detected Not Detected [facility] th B. pertussis DNA ISRAEL+probe Ql (Unsp spec) Not detected Not Detected [facility] ealth Bordetella parapertussis Not detected Not Detec tiffany [facility] Chlamydia pneumoniae Not detected Not Detected [facility] Coronavirus 229E Not detected Not Detected [facility] Coronavirus HKU1 Not detected Not Detected [facility] Coronavirus NL63 Not detected Not Detected [facility] Coronavirus OC43 Not detected Not Detected [facility] FLUAV RNA ISRAEL+non-probe Ql (Nph) Not detected Not Detected [facility] FLUBV RNA ISRAEL+non-probe Ql (Nph) Not detected Not Detected [facility] Human Metapneumovirus Not detected Not Detected [facility] Human Rhinovirus/Enterovirus Not detected Not Detected [facility] Interpretation and review of laboratory results Normal [facility] Mycoplasma pneumoniae Not detected Not Detected [facility] Parainfluenza 1 Not detected Not Detected [facility] Parainfluenza 2 Not detected Not Detected [facility] Parainfluenza 3 Not detected Not Detected [facility] Parainfluenza 4 Not detected Not Detected [facility] Respiratory Syncytial Virus Not detected Not Detected [facility] SARS-CoV-2 (COVID-19) RNA ISRAEL+non-probe Ql (Nph) Not detected Not Detected [facility] Methodology: Multipl ex PCR [facility] VANCOMYCIN, RANDOMon 025 VANCOMYCIN 13.2 ug/mL Normal [facility] Comment on above: Result Comment: ORDE R COMMENTS: Toxicity is seen at concentrations >80-100 ug/mL Therapeutic (Peak) range: 20-40 Therapeutic (Trough) range: 5-10 Performed By: #### L [id number] ####Supply Officer: JUSTICE ABDULLAHI ([id number])[facility] ([facility])[address] [place] [address] BLOOD CULTUREon 07-07-2024 Bacteria identified Cx Nom (Bld) BLOOD CULTURE Reference No growth at 5 days ORDER COMMENTS: Blood Collection Site: Left Arm [ S = SUSCEPTIBLE R = RESISTANT I = INTERMEDIATE S-DD = Susceptible-dose dependent NS = Non-susceptible NO = No Interpretation ] Normal [facility] Comment on above: Performed By: #### L [id number] ####Supply Officer: ENA MARRERO ([id number])[facility] ([facility])[address] [place] [address] Bacteria identified Cx Nom (Bld) BLOOD CULTURE Reference No growth at 5 days ORDER COMMENTS: Blood Collection Site: Right Arm [ S = SUSCEPTIBLE R = RESISTANT I = INTERMEDIATE S-DD = Susceptible-dose dependent NS = Non-susceptible NO = No Interpretation ] Normal [facility] Comment on above: Performed By: #### L [id number] ####Supply Officer: ENA MARRERO ([id number])[facility] ([facility])[address] [place] [address] CBC W Auto Differential pane l (Bld)on 07-07-2024 Basophils (Bld) [#/Vol] 0.1 10*3/uL 0.0 - 0.2 10*3/uL [facility] Basophils/100 WBC (Bld) 0.7 % 0.0 - 2.0 % [facility] Eosinophils (Bld) [#/Vol] 0.4 10*3/uL 0.0 - 0.5 10*3/uL [facility] Eosinophils/100 WBC (Bld) 4 % 0.0 - 6.0 % [facility] Erythrocyte distribution width (RBC) [Ratio] 15.5 % High 11.5 - 15.0 % [facility] Hematocrit (Bld) [Volume fraction] 46.3 % 35.0 - 47.0 % [facility] Hemoglobin (Bld) [Mass/Vol] 14.9 g/dL 11.7 - 16.0 g/dL [facility] Immature granulocytes (Bld) [#/Vol] 0.1 10*3/uL High NINF - 0.1 10*3/uL [facility] Health Immature granulocytes/100 WBC (Bld) 0.5 % 0.0 - 2.0 % [facility] Interpretation and review of laboratory results Abnormal [facility] Lymphocytes (Bld) [#/Vol] 2.2 10*3/uL 1.0 - 4.3 10*3/uL [facility] Lymphocytes/100 WBC (Bld) 20.1 % 15.0 - 45.0 % [facility] MCH (RBC) [Entitic mass] 29.9 pg 26. 0 - 34.0 pg [facility] MCHC (RBC) [Mass/Vol] 32.2 % 30.5 - 36.0 % [facility] MCV (RBC) [Entitic vol] 93 fL 77.0 - 99.0 fL [facility] Monocytes (Bld) [#/Vol] 0.6 10*3/uL 0.0 - 0.9 10*3/uL [facility] Monocytes/100 WBC (Bld) 5.2 % 5.0 - 13.0 % [facility] Neutrophils (Bld) [#/Vol] 7.6 10*3/uL High 1.8 - 7.5 10*3/uL [facility] Neutrophils/100 WBC (Bld) 69.5 % 38.0 - 82.0 % [facility] Nucleated RBC/100 WBC (Bld) [Ratio] 0 % [facility] Platelet mean volume (Bld) [Entitic vol] 9.4 fL 9.0 - 12.7 fL [facility] Platelets (Bld) [#/Vol] 321 10*3/uL 140 - 440 10*3/uL [facility] RBC (Bld) [#/Vol] 4.98 10*6/uL 3.80 - 5.2 0 10*6/uL [facility] WBC (Bld) [#/Vol] 10.9 10*3/uL High 3.6 - 10.7 10*3/uL [facility] CBC WITH AUTO DIFFERENTIALon 07-07-2024 Basophils (Bld) [#/Vol] 0.1 10*3/uL Normal 0.0-0.2 [facility] Comment on above: Performed By: #### L [id number] #### Supply Officer: JUSTICE ABDULLAHI ([id number]) [facility] ([facility]) [address] Basophils/100 WBC (Bld) 0.7 % Normal 0.0-2.0 S [facility] Comment on above: Performed By: #### L [id number] #### Supply Officer: JUSTICE ABDULLAHI ([id number]) [facility] ([facility]) [address] [place] [place] [address] [place] Eosinophils (Bld) [#/Vol] 0.4 10*3/uL Normal 0.0-0.5 [facility] Comment on above: Performed By: #### L [id number] #### Supply Officer: JUSTICE ABDULLAHI ([id number]) [facility] ([facility] [address] Eosinophils/100 WBC (Bld) 4.0 % Normal 0.0-6.0 [facility] Comment on above: Performed By: #### L [id number] #### Supply Officer: JUSTICE ABDULLAHI ([id number]) [facility] ([facility]) [address] Erythrocyte distribution width (RBC) [Ratio] 15.5 % High 11.5-15.0 [facility] Comment on above: Performed By: #### L [id number] #### Supply Officer: JUSTICE ABDULLAHI ([id number]) [facility] ([facility]) [address] Hematocrit (Bld) [Volume fraction] 46.3 % Normal 35.0-47.0 [facility] Comment on above: Performed By: #### L [id number] #### Supply Officer: JUSTICE ABDULLAHI ([id number]) [facility] ([facility]) [address] Hemoglobin (Bld) [Mass/Vol] 14.9 g/dL Normal 11.7-16.0 [facility] Comment on above: Performed By: #### L [id number] #### Supply Officer: JUSTICE ABDULLAHI ([id number]) [facility] ([facility]) [address] IMMATURE GRANS % 0.5 % Normal 0.0-2.0 [facility] Comment on above: Performed By: #### L [id number] #### Supply Officer: JUSTICE ABDULLAHI ([id number]) [facility] ([facility]) [address] IMMATURE GRANS ABSOLUTE 0.1 10*3/uL High <0.1 [facility] Comment on above: Performed By: #### L [id number] #### Supply Officer: JUSTICE ABDULLAHI ([id number]) [facility] ([facility]) [address] Lymphocytes (Bld) [#/Vol] 2.2 10*3/uL Normal 1.0-4.3 [facility] Comment on above: Performed By: #### L [id number] #### Supply Officer: JUSTICE ABDULLAHI ([id number]) [facility] ([facility]) [address] Lymphocytes/100 WBC (Bld) 20.1 % Normal 15.0-45.0 [facility] Comment on above: Performed By: #### L [id number] #### Supply Officer: JUSTICE ABDULLAHI ([id number]) [facility] ([facility]) [address] MCH (RBC) [Entitic mass] 29.9 pg Normal 26.0-34.0 [facility] Comment on above: Performed By: #### L [id number] #### Supply Officer: JUSTICE ABDULLAHI ([id number]) [facility] ([facility]) [address] MCHC 32.2 % Normal 30.5-36.0 [facility] Comment on above: Performed By: #### L [id number] #### Supply Officer: JUSTICE ABDULLAHI ([id number]) [facility] ([facility]) [address] MCV (RBC) [Entitic vol] 93.0 fL Normal 77.0-99.0 S [facility] Comment on above: Performed By: #### L [id number] #### Supply Officer: JUSTICE ABDULLAHI ([id number]) [facility] ([facility]) [address] Monocytes (Bld) [#/Vol] 0.6 10*3/uL Normal 0.0-0.9 [facility] Comment on above: Performed By: #### L [id number] #### Supply Officer: JUSTICE ABDULLAHI ([id number]) [facility] ([facility] [address] Monocytes/100 WBC (Bld) 5.2 % Normal 5.0-13.0 [facility] Comment on above: Performed By: #### L [id number] #### Supply Officer: JUSTICE ABDULLAHI ([id number]) [facility] ([facility]) [address] NEUTROPHILS ABSOLUTE 7.6 10*3/uL High 1.8-7.5 [facility] Comment on above: Performed By: #### L [id number] #### Supply Officer: JUSTICE ABDULLAHI ([id number]) [facility] ([facility] [address] Neutrophils/100 WBC (Bld) 69.5 % Normal 38.0-82.0 [facility] Comment on above: Performed By: #### L [id number] #### Supply Officer: JUSTICE ABDULLAHI ([id number]) [facility] ([facility]) [address] NRBC 0.0 /100 WBCs Normal 0.0-2.0 [facility] Comment on above: Performed By: #### L [id number] #### Supply Officer: JUSTICE ABDULLAHI ([id number]) [facility] ([facility]) [address] [place] [address] [place] Platelet mean volume (Bld) [Entitic vol] 9.4 fL Normal 9.0-12.7 [facility] Comment on above: Performed By: #### L [id number] #### Supply Officer: JUSTICE ABDULLAHI ([id number]) [facility] ([facility]) [address] [place] [address] [place] Platelets (Bld) [#/Vol] 321 10*3/uL Normal 140-440 [facility] Comment on above: Performed By: #### L [id number] #### Supply Officer: JUSTICE ABDULLAHI ([id number]) [facility] ([facility]) [address] RBC (Bld) [#/Vol] 4.98 10*6/uL Normal 3.80-5.20 [facility] Comment on above: Performed By: #### L [id number] #### Supply Officer: JUSTICE ABDULLAHI ([id number]) [facility] ([facility]) [address] WBC (Bld) [#/Vol] 10.9 10*3/uL High 3.6-10.7 [facility] Comment on above: Performed By: #### L [id number] #### Supply Officer: JUSTICE ABDULLAHI ([id number]) [facility] ([facility]) [address] [place] [address] COMPLETE URINALYSISon 2023 BACTERIA (#/HPF) IN URINE Many Abnormal Negative [facility] Comment on above: Performed By: #### L [id number] ####Supply Officer: ENA MARRERO ([id number])[facility] ([facility])[address] [place] [address]#### [id number] ####Supply Officer: JUSTICE ABDULLAHI ([id number])[facility] ([facility])[address] [place] [address] BILIRUBIN, TOTAL PRESENCE IN URINE Negative Normal Negative [facility] Comment on above: Performed By: #### L [id number] ####Supply Officer: ENA MARRERO ([id number])[facility] ([facility])[address] [place] [address]#### [id number] ####Supply Officer: JUSTICE ABDULLAHI ([id number])[facility] ([facility])[address] [place] [address] Clarity (U) Cloudy Abnormal Clear [facility] Comment on above: Performed By: #### L [id number] ####Supply Officer: ENA MARRERO ([id number])[facility] ([facility])[address] [place] [address]#### [id number] ####Supply Officer: JUSTICE ABDULLAHI ([id number])[facility] ([facility])[address] [place] [address] Color (U) Yellow Normal Lt. Yellow [facility] Comment on above: Performed By: #### L [id number] ####Supply Officer: ENA MARRERO ([id number])[facility] ([facility])[address] [place] [address]#### [id number] ####Supply Officer: JUSTICE ABDULLAHI ([id number])[facility] ([facility])[address] [place] [address] GLUCOSE (MG/DL) IN URINE Normal Normal Normal (<70 ) [facility] Comment on above: Performed By: #### L [id number] ####Supply Officer: ENA MARRERO ([id number])[facility] ([facility])[address] [place] [address]#### [id number] ####Supply Officer: JUSTICE ABDULLAHI ([id number])[facility] ([facility])[address] [place] [address] HEMOGLOBIN PRESENCE IN URINE Negative Normal Negative [facility] Comment on above: Performed By: #### L [id number] ####Supply Officer: ENA MARRERO ([id number])[facility] ([facility])[address] [place] [address]#### [id number] ####Supply Officer: JUSTICE ABDULLAHI ([id number])[facility] ([facility])[address] [place] [address] HYALINE CASTS (#/LPF) IN URINE SEDIMENT BY MICROSCOPY 3-5 Abnormal Negative [facility] Comment on above: Performed By: #### L [id number] ####Supply Officer: ENA MARRERO ([id number])[facility] ([facility])[address] [place] [address]#### [id number] ####Supply Officer: JUSTICE ABDULLAHI ([id number])[facility] ([facility])[address] [place] [address] Ketones Ql (U) Negative Normal Negative [facility] Comment on above: Performed By: #### L [id number] ####Supply Officer: ENA MARRERO ([id number])[facility] ([facility])[address] [place] [address]#### [id number] ####Supply Officer: JUSTICE ABDULLAHI ([id number])[facility] ([facility])[address] [place] [address] LEUKOCYTE ESTERASE PRESENCE IN URINE BY TEST STRIP 500 [place]/uL Abnormal Negative [facility] Comment on above: Performed By: #### L [id number] ####Supply Officer: ENA MARRERO ([id number])[facility] ([facility])[address] [place] [address]#### [id number] ####Supply Officer: JUSTICE ABDULLAHI ([id number])[facility] ([facility])[address] [place] [address] MUCUS (#/LPF) IN URINE SEDIMENT Few Normal Negative [facility] Comment on above: Performed By: #### L [id number] ####Supply Officer: ENA MARRERO ([id number])[facility] ([facility])[address] [place] [address]#### [id number] ####Supply Officer: JUSTICE ABDULLAHI ([id number])[facility] ([facility])[address] [place] [address] NITRITE PRESENCE IN URINE Positive Abnormal Negative [facility] Comment on above: Performed By: #### L [id number] ####Supply Officer: ENA MARRERO ([id number])[facility] ([facility])[address] [place] [address]#### [id number] ####Supply Officer: JUSTICE [id number])[facility] ([facility])[address] [place] [address] pH (U) 5.0 [pH] Normal 5.0-8.0 [facility] Comment on above: Performed By: #### L [id number] ####Supply Officer: ENA MARRERO ([id number])[facility] ([facility])[address] [place] [address]#### [id number] ####Supply Officer: JUSTICE ABDULLAHI ([phone])[facility] ([facility])[address] [place] [address] Protein (U) [Mass/Vol] Negative Normal Negative [facility] Comment on above: Performed By: #### L [id number] ####Supply Officer: ENA MARRERO ([id number])[facility] ([facility])[address] [place] [address]#### [id number] ####Supply Officer: JUSTICE ABDULLAHI ([id number])[facility] ([facility])[address] [place] [address] RBC (#/HPF) IN URINE SEDIMENT 3-5 Abnormal 0-2 [facility] Comment on above: Performed By: #### L [id number] ####Supply Officer: ENA MARRERO ([id number])[facility] ([facility])[address] [place] [address]#### [id number] ####Supply Officer: JUSTICE ABDULLAHI ([id number])[facility] ([facility])[address] [place] [address] Specific gravity (U) [Rel density] 1.014 Normal 1.005-1.030 [facility] Comment on above: Performed By: #### L [id number] ####Supply Officer: ENA MARRERO ([id number])[facility] ([facility])[address] [place] [address]#### [id number] ####Supply Officer: JUSTICE ABDULLAHI ([phone])[facility] [facility] ([facility] SQUAMOUS EPITHELIAL CELLS (#/HPF) IN URINE SEDIMENT 0-2 Normal 3-5 [facility] Comment on above: Performed By: #### L [id number] ####Supply Officer: ENA MARRERO ([phone])[facility] ([facility])[address] [place] [address]#### [id number] ####Supply Officer: JUSTICE ABDULLAHI ([phone])[facility] ([facility])[address] UROBILINOGEN (MG/DL) IN URINE Normal Normal Normal (0-1) [facility] Comment on above: Performed By: #### L [id number] ####Supply Officer: ENA MARRERO ([phone])[facility] ([facility])[address] [place] [address]#### [id number] ####Supply Officer: JUSTICE ABDULLAHI ([phone])[facility] ([facility])[address] [place] [address] WBC (LEUKOCYTE) (#/HPF) IN URINE SEDIMENT 51-100 Abnormal 0-5 [facility] Comment on above: Performed By: #### L [id number] ####Supply Officer: ENA MARRERO ([id number])[facility] ([facility])[address] [place] [address]#### [id number] ####Supply Officer: JUSTICE ABDULLAHI ([phone])[facility] ([facility])[address] COMPREHENSIVE METABOLIC PANE Jamie 07-07-2024 Albumin [Mass/Vol] 3.4 g/dL Normal 3.4-4.8 [facility] Comment on above: Performed By: #### L [id number], [id number], [id number] ####Supply Officer: JUSTICE ABDULLAHI ([phone])[facility] ([facility])[address] [place] [address] [place] ALP [Catalytic activity/Vol] 98 U/L Normal 40-150 [facility] Comment on above: Performed By: #### Ankur [id number], [id number], [id number] ####Supply Officer: JUSTICE ABDULLAHI ([phone])[facility] ALT [Catalytic activity/Vol] 12 U/L Normal <30 [facility] Comment on above: Performed By: #### Ankur [id number], [id number], LAB17 ####Supply Officer: JUSTICE ABDULLAHI ([phone])[facility] ([facility] Anion gap [Moles/Vol] 11 mmol/L Normal 3-13 [facility] Comment on above: Performed By: #### Ankur [id number], [id number], [id number] ####Supply Officer: JUSTICE ABDULLAHI ([id number])[facility] AST [Catalytic activity/Vol] 34 U/L High <34 [facility] Comment on above: Result Comment: TC Potential interference from hemolysis Performed By: #### Ankur [id number], [id number], LAB17 ####Supply Officer: JUSTICE ABDULLAHI ([id number])[facility] ([facility] Bilirubin [Mass/Vol] 0.5 mg/dL Normal <1.2 [facility] Comment on above: Performed By: #### L [id number], [id number], LAB17 ####Supply Officer: JUSTICE ABDULLAHI ([id number])[facility] ([facility])[address] Calcium [Mass/Vol] 10.0 mg/dL Normal 8.8-10.0 [facility] Comment on above: Performed By: #### Ankur [id number], [id number], LAB17 ####Supply Officer: JUSTICE ABDULLAHI ([phone])[facility] [place] ([facility])[address] [place] [address] [place] Chloride [Moles/Vol] 104 mmol/L Normal 98-107 [facility] Comment on above: Performed By: #### Ankur [id number], [id number], LAB17 ####Supply Officer: JUSTICE ABDULLAHI ([id number])[facility] JONASN (SBHLAB)[address] [place] [address] [place] CO2 [Moles/Vol] 22 mmol/L Low 23-31 [facility] Comment on above: Performed By: #### Ankur [id number], [id number], LAB17 ####Supply Officer: JUSTICE ABDULLAHI ([id number])[facility]uth [facility] ([facility])[address] Creatinine [Mass/Vol] 1.00 mg/dL Normal 0.57-1.11 [facility] Comment on above: Performed By: #### Ankur [id number], [id number], LAB17 ####Supply Officer: JUSTICE ABDULLAHI ([phone])[facility]uth [facility] ([facility])[address] [place] [address] [place] GLOMERULAR FILTRATION RATE ML/MIN/1.73 SQ M.PREDICTED 58.1 mL/min/1.73m*2 Low >60.0 [facility] Comment on above: Result Comment: Calc ulation based on the Chronic Kidney Disease Epidemiology Collaboration (CKD-EPI) equation refit without adjustment for race Performed By: #### Ankur [id number], [id number], LAB17 ####Supply Officer: JUSTICE ABDULLAHI ([phone])[facility] JONASN ([facility])[address] [place] [address] [place] Glucose [Mass/Vol] 205 mg/dL High 82-115 [facility] Comment on above: Performed By: #### Ankur [id number], [id number], LAB17 ####Supply Officer: JUSTICE ABDULLAHI ([phone])[facility] ([facility])[address] [place] [address] [place] Potassium [Moles/Vol] 5.3 mmol/L High 3.5-5.1 [facility] Comment on above: Result Comment: [facility] potassium values may be up to 0.5 mmol/L lower than serum values. Performed By: #### L [id number], [id number], LAB17 ####Supply Officer: JUSTICE ABDULLAHI ([id number])[facility] ([facility])[address] Protein [Mass/Vol] 8.6 g/dL High 6.4-8.3 [facility] Comment on above: Performed By: #### L [id number], [id number], LAB17 ####Supply Officer: JUSTICE ABDULLAHI ([id number])[facility] ([facility])[address] Sodium [Moles/Vol] 137 mmol/L Normal 136-145 [facility] Comment on above: Performed By: #### L [id number], [id number], LAB17 ####Supply Officer: JUSTICE ABDULLAHI ([id number])[facility] ([facility])[address] Urea nitrogen [Mass/Vol] 19 mg/dL Normal 9-23 [facility] Comment on above: Performed By: #### L [id number], [id number], LAB17 ####Supply Officer: JUSTICE ABDULLAHI ([id number])[facility] ([facility])[address] COVID-19, Flu A/B, and RSV C omboon 07-07-2024 Interpretation and review of laboratory results Normal [facility] CT HEAD WO IV CONTRASTon CT HEAD WO IV CONTRAST Patient Name: ANA NUNEZ : 1945 Exam Date/Time: 07/07/2024 15:04 Procedure: CT HEAD WO IV CONTRAST Ordering Provider: LAI GREGORY Reason For Exam: dizzy, possible seizure EXAMINATION: CT HEAD WO IV CONTRAST HISTORY: dizzy, possible seizure TECHNIQUE: CT head without contrast. Dose reduction was employed with automated exposure control. COMPARISON: Head CT 11/09/2014 RESULT: Acute change: No evidence of an acute intracranial process. Hemorrhage: No evidence of acute intracranial hemorrhage. Mass Lesion / Mass Effect: No evidence of an intracranial mass, extra-axial fluid collection, or significant localized mass effect. Chronic change: Scattered patchy foci of low attenuation are present within supratentorial white matter which is a nonspecific finding but likely represents mild microvascular ischemia. Mineralization of the bilateral globus pallidus and bilateral cerebellar hemispheres. Atherosclerotic calcifications of the carotid siphons. Parenchyma: There is mild generalized volume loss. Ventricles: Normal caliber and morphology. Other: The calvarium, skull base, imaged paranasal sinuses, mastoids, orbits and extracranial soft tissues are unremarkable. IMPRESSION: No CT evidence of an acute intracranial abnormality. Chronic parenchymal changes as described. Report Dictated on Electronically Signed By: Gerard An MD Electronically Signed Date/Time: 07/07/2024 4:10 PM EST Table formatting from the original note was not included. Altered Mental Status Fall Unwitnessed fall, found by [facility]pc staff Table formatting from the original note was not included. Pt unable to recall her birthday upon arrival to the ED. Denies pain. 2L NC at baseline. 85% SpO2 upon EMS arrival. History of seizures. Normal [facility] CT Head WO contraston [address] evidence of an acute intracranial abnormality. Chronic parenchymal changes as described. Report Dictated on Electronically Signed By: Gerard An MD Electronically Signed Date/Time: 07/07/2024 4:10 PM [facility] RADIOLOGY SYSTEM [facility] 1945 [id number] Exam Date/Time: 07/07/2024 15:04 Procedure: CT HEAD WO IV CONTRAST Ordering Provider: LAI GREGORY Reason For Exam: dizzy, possible seizure EXAMINATION: CT HEAD WO IV CONTRAST HISTORY: dizzy, possible seizure TECHNIQUE: CT head without contrast. Dose reduction was employed with automated exposure control. COMPARISON: Head CT 11/09/2014 RESULT: Acute change: No evidence of an acute intracranial process. Hemorrhage: No evidence of acute intracranial hemorrhage. Mass Lesion / Mass Effect: No evidence of an intracranial mass, extra-axial fluid collection, or significant localized mass effect. Chronic change: Scattered patchy foci of low attenuation are present within supratentorial white matter which is a nonspecific finding but likely represents mild microvascular ischemia. Mineralization of the bilateral globus pallidus and bilateral cerebellar hemispheres. Atherosclerotic calcifications of the carotid siphons. Parenchyma: There is mild generalized volume loss. Ventricles: Normal caliber and morphology. Other: The calvarium, skull base, imaged paranasal sinuses, mastoids, orbits and extracranial soft tissues are unremarkable. [facility] Gerard An MD - 07/07/2024 Patient Name: ANA LOPES : 1945 [facility]#: [id number] Exam Date/Time: 07/07/2024 15:04 Procedure: CT HEAD WO IV CONTRAST Ordering Provider: LAI GREGORY Reason For Exam: dizzy, possible seizure EXAMINATION: CT HEAD WO IV CONTRAST HISTORY: dizzy, possible seizure TECHNIQUE: CT head without contrast. Dose reduction was employed with automated exposure control. COMPARISON: Head CT 11/09/2014 RESULT: Acute change: No evidence of an acute intracranial process. Hemorrhage: No evidence of acute intracranial hemorrhage. Mass Lesion / Mass Effect: No evidence of an intracranial mass, extra-axial fluid collection, or significant localized mass effect. Chronic change: Scattered patchy foci of low attenuation are present within supratentorial white matter which is a nonspecific finding but likely represents mild microvascular ischemia. Mineralization of the bilateral globus pallidus and bilateral cerebellar hemispheres. Atherosclerotic calcifications of the carotid siphons. Parenchyma: There is mild generalized volume loss. Ventricles: Normal caliber and morphology. Other: The calvarium, skull base, imaged paranasal sinuses, mastoids, orbits and extracranial soft tissues are unremarkable. IMPRESSION: No CT evidence of an acute intracranial abnormality. Chronic parenchymal changes as described. Report Dictated on Electronically Signed By: Gerard An MD Electronically Signed Date/Time: 07/07/2024 4:10 PM EST [facility] Radiology Study observation (narrative) [facility] CT Head WO contrastOrdered B y: Gerard An on 07-07-2024 [facility] Work Phone: Comprehensive metabolic 1998 panelon 07-07-2024 Albumin [Mass/Vol] 3.4 g/dL 3.4 - 4.8 g/dL [facility] [facility] ALP [Catalytic activity/Vol] 98 U/L 40 - 150 U/L [facility] ALT [Catalytic activity/Vol] 12 U/L NINF - 30 U/L [facility] Anion gap [Moles/Vol] 11 mmol/L 3 - 13 mmol/L [facility] AST [Catalytic activity/Vol] 34 U/L High NINF - 34 U/L [facility] Comment on above: TC Potential interference from hemolysis Bilirubin [Mass/Vol] 0.5 mg/dL NINF - 1.2 mg/dL [facility] Calcium [Mass/Vol] 10 mg/dL 8.8 - 10. 0 mg/dL [facility] Chloride [Moles/Vol] 104 mmol/L 98 - 10 7 mmol/L [facility] CO2 [Moles/Vol] 22 mmol/L Low 23 - 31 mmol/L [facility] Creatinine [Mass/Vol] 1 mg/dL 0.57 - 1.11 mg/dL [facility] GFR/1.73 sq M.predicted (S/P/Bld) [Vol rate/Area] 58.1 mL/min Low - PINF [facility] Comment on above: Calculation based on the Chronic Kidney Disease Epidemiology Collaboration (CKD-EPI) equation refit without adjustment for race Glucose [Mass/Vol] 205 mg/dL High 82 - 115 mg/dL [facility] Potassium [Moles/Vol] 5.3 mmol/L High 3.5 - 5.1 mmol/L [facility] Comment on above: Plasma potassium guillermo ues may be up to 0.5 mmol/L lower than serum values. Protein [Mass/Vol] 8.6 g/dL High 6.4 - 8.3 g/dL [facility] Sodium [Moles/Vol] 137 mmol/L 136 - 145 mmol/L [facility] Urea nitrogen [Mass/Vol] 19 mg/dL 9 - 23 mg/d L [facility] Consulton 07-07-2024 Consult Pharmacy Managed Vancomycin Dosing Service Consult Note Consult Date: 07/07/24 Patient Name: Ana Lopes Allergies: Patient has no known allergies. Age: 79 y.o. Sex: female Estimated body mass index is 38.67 kg/m? as calculated from the following: Height as of this encounter: 1.626 m (5' 4"). Weight as of this encounter: 102 kg (225 lb 5 oz). Lab Results Component Value Date CREATININE 1.00 07/07/2024 BUN 19 07/07/2024 WBC 10.9 (H) 07/07/2024 Calculated CrCl: 75.6 mL/min Consulted By: Dr. Pena Infectious Diagnosis: CAP (AUC Goal 400-600 mg/L*hr) Antimicrobials: Patient recently received an antibiotic (last 12 hours) Date/Time Action Medication Dose Rate 07/07/24 1756 New Bag vancomycin IVPB 1500 mg in 250 mL NS (premix) 1,500 mg 125 mL/hr 07/07/24 1649 New Bag piperacillin-tazobacta m (Zosyn) 4,500 mg in sodium chloride 0.9 % 100 mL IVPB Mini-Bag Plus 4,500 mg 200 mL/hr Assessment/Plan: Doses, serum creatinine, and vancomycin levels interfaced automatically to [employer] and data has been analyzed and interpreted. Start Vancomycin 1250 mg Q 24 hours based on patient age, weight, renal function, and infectious diagnosis (12.3 mg/kg). Predicted AUC = 536 mg/L*hr (goal 400-600 mg/L*hr) Will assess level on 07-08-24 040 and adjust as appropriate. Trend serum creatinine. Orders placed. Thank you for this consult. Please secure text or call with questions. ____ DATE: 07/07/24 TIME: 9:49 PM Epi P[facility]ell [facility] Clinical Pharmacist Available via Secure Chat [facility] ECG 12-LEADon 07-07-2024 ECG 12-LEAD IMPRESSION: Sinus or ectopic atrial rhythm Prolonged AR interval IVCD, consider LBBB Electronically Signed On 07-07-2024 21:17:34 EST by Selwyn Lai [facility] ED Nursing Noteon 07-07-2024 ED Nursing Note Pt arrives via EMS after an unwitnessed fall at [facility]. Per EMS, nursing staff found pt on the floor by her bed. Per EMS, pt states she "slid out of bed". Nursing staff also reports periods of unresponsiveness. Pt is normally A&O x4, was disoriented per nursing staff. Pt unable to recall her birthday upon arrival to the ED. Denies pain. 2L NC at baseline. 85% SpO2 upon EMS arrival. History of seizures. Normal [facility] ED Provider Noteon ED Provider Note [facility] ED EMERGENCY DEPARTMENT ENCOUNTER Pt Name: Ana Lopes Birthdate 1945 Date of evaluation: 07/07/2024 Provider: Selwyn Lai MD CHIEF COMPLAINT Chief Complaint Patient presents with Altered Mental Status Fall Unwitnessed fall, found by [facility] staff HISTORY OF PRESENT ILLNESS (Location/Symptom, Timing/Onset,Context/S etting, Quality, Duration, Modifying Factors, Severity) Note limiting factors. Ana Lopes is a 79 y.o. female who presents to the emergency department patient presents with altered mental status. She said she lowered her self to the ground. She has history of seizures. She has had cough congestion. Patient overall poor historian. By remi. Sent in from [facility]. HPI Historian is the patient Nurse's notes for past medical history, surgical history, social history were reviewed. Medications and allergies reviewed. PAST MEDICAL HISTORY Past Medical History: Diagnosis Date Allergic rhinitis Anxiety COPD (chronic obstructive pulmonary disease) ([facility]) Debility Depression Dizziness DM2 (diabetes mellitus, type 2) ([facility]) DVT (deep venous thrombosis) ([facility]) GERD (gastroesophageal reflux disease) Hypercholesteremia Hypertension Lymphedema Migraine headache Morbid obesity (CMS/HCC) ([facility]) Nephrolithiasis status post perc nephrolithotomy MARY (obstructive sleep apnea) Osteoarthrosis Pneumonia Seizures ([facility]/HCC) ([facility]) SURGICALHISTORY Past Surgical History: Procedure Laterality Date CHOLECYSTECTOMY 1991 EYE SURGERY 2005 orbital I and D KIDNEY STONE SURGERY 2011 right then left nephrolithotomy TONSILLECTOMY (HISTORICAL) CURRENT MEDICATIONS Previous Medications No medications on file Patient has no known allergies. FAMILY HISTORY Family History Problem Relation Name Age of Onset Dementia Mother SOCIAL HISTORY Social History Socioeconomic History Marital status: Tobacco Use Smoking status: Former Smokeless tobacco: Never Tobacco comments: Quit smoking: quit in highschool Substance and Sexual Activity Alcohol use: No Alcohol/week: 0.0 standard drinks of alcohol Drug use: No Social Drivers of Health Financial Resource Strain: Low Risk (05/21/2023) Received from [facility], [facility] Overall Financial Resource Strain (CARDIA) Difficulty of Paying Living Expenses: Not very hard Food Insecurity: Patient Declined (12/29/2023) Received from [facility] Hunger Vital Sign Worried About Running Out of Food in the Last Year: Patient declined Ran Out of Food in the Last Year: Patient declined Transportation Needs: Patient Declined (12/29/2023) Received from [facility] PRAPARE - Transportation Lack of Transportation (Medical): Patient declined Lack of Transportation (Non-Medical): Patient declined Housing Stability: Patient Declined (12/29/2023) Received from [facility] Housing Stability Vital Sign Unable to Pay for Housing in the Last Year: Patient declined Unstable Housing in the Last Year: Patient declined SCREENINGS PHYSICAL EXAM (up to 7 for level 4, 8 or more for level 5) @EDTRIAGEVSS@ Appropriate PPE including n 95, gown, gloves, goggles where worn when appropriate with this patient. Physical Exam Vital signs reviewed general: Alert and oriented ?3 head: Atraumatic, no cephalhematoma eyes: Equal round reactive to light and accommodating, pupils are equal, round and reactive to light and accommodation oropharynx: Clear and well hydrated neck: Supple heart: Regular rate and rhythm, no murmurs lungs: Coarse breath sounds slightly diminished bilaterally abdomen: Soft nontender, positive bowel sounds, no peritoneal findings. Extremities: Moving all fours, no tenderness. Normal capillary refill. Skin: No rash or lesions -to the exposed skin neurologically: Alert and oriented ?3, cranial nerves grossly intact, strength diffusely weak but no focal weakness, sensation, intact. NIH equals 0 DIAGNOSTIC RESULTS RADIOLOGY: Interpretation per the Radiologist below, if availableat the time of this note: CT head wo IV contrast Final Result No CT evidence of an acute intracranial abnormality. Chronic parenchymal changes as described. Report Dictated on Electronically Signed By: Gerard An MD Electronically Signed Date/Time: 07/07/2024 4:10 PM EST XR chest 1 view Final Result Mild interstitial infiltrates bilaterally may be due to edema or interstitial pneumonia. Report Dictated on Electronically Signed By: Dawood Cosme DO Electronically Signed Date/Time: 07/07/2024 3:37 PM EST ED BEDSIDE ULTRASOUND: Performed by ED Physician - none LABS: Labs Reviewed COMPREHENSIVE METABOLIC PANEL - Abnormal Result Value SODIUM 137 POTASSIUM 5.3 (*) CHLORIDE 104 CARBON DIOXIDE 22 (*) ANION GAP 11 UREA NITROGEN 19 CREATININE 1.00 (more content not included)... Normal [facility] HIGH SENSITIVITY TROPONIN, S ERIAL BASELINEon 07-07-2024 TROPONIN HIGH SENSITIVITY BASELINE 45 ng/L High <=14 [facility] Comment on above: Performed By: #### L [id number], [id number], LAB17 ####Supply Officer: JUSTICE ABDULLAHI ([phone])[facility] ([facility])[address] [place] [address] HIGH SENSITIVITY TROPONIN, S ERIAL, SECOND TESTon 07-07-2024 TROPONIN HS DELTA, BASELINE TO SECOND -12 ng/L Normal <=2 [facility] Comment on above: Result Comment: A tr oponin delta greater than or equal to 15 ng/L is significant for acute cardiac injury. Values less than 15 but greater than 2 are an intermediate change requiring a 3rd serial troponin to be drawn. Values less than or equal to 2 indicate acute cardiac injury is not likely, see external algorithms for further clinical guidance. Performed By: #### L [id number] ####Supply Officer: JUSTICE ABDULLAHI ([phone])[facility] ([facility])[address] [place] [address] TROPONIN HS, SERIAL REFLEX, TEST TWO 33 ng/L High <=14 [facility] Comment on above: Performed By: #### L [id number] ####Supply Officer: JUSTICE ABDULLAHI ([phone])[facility] ([facility])[address] [place] [address] LACTIC ACID WITH REFLEXon Lactate [Moles/Vol] 2.1 mmol/L Normal 0.5-2.2 [facility] Comment on above: Performed By: #### L [id number] #### Supply Officer: JUSTICE ABDULLAHI ([phone]) [facility] ([facility]) [address] [place] [address] Lactate [Moles/Vol] 2.9 mmol/L High 0.5-2.2 [facility] Comment on above: Performed By: #### L [id number] ####Supply Officer: JUSTICE ABDULLAHI ([phone])[facility] ([facility])[address] LEGIONELLA AND STREPTOCOCCUS URINE ANTIGENon 07-07-2024 LEGIONELLA AND STREPTOCOCCUS URINE ANTIGEN LEGIONELLA PNEUMOPHILA URINE ANTIGEN Reference Not Detected Not Detected STREPTOCOCCUS PNEUMONIAE URINE ANTIGEN Reference Not Detected Not Detected ORDER COMMENTS: Methodology: Lateral flow enzyme immunoassay This assay is approved for detection of antigens to Streptococcus pneumoniae and Legionella pneumophila serogroup 1; however, other L. pneumophila serogroups may also be detected. Normal [facility] Comment on above: Performed By: #### L [id number] #### Supply Officer: ENA MARRERO ([phone]) [facility] ([facility]) [address] [place] [address] LEVETIRACETAM LEVEL (BKR QUE ST)on 07-07-2024 QUEST LEVETIRACETAM, IMMUNOASSAY 32.9 mcg/mL Normal 6.0-46.0 [facility] Comment on above: Result Comment: Brivaracetam (Briviact(R), Rikelta(R)) exhibits significant cross-reactivity in the Levetiracetam (Keppra(R), Spritam(R)) immunoassay. If Brivaracetam has been prescribed, order test code 83053 Levetiracetam by LCMSMS. Test Performed by [facility], [facility], [address] [place] [id number] Scooter Hairston M.D., Ph.D., Director of Laboratories , CLIA [id number] Performed By: #### L [id number] #### Supply Officer: JUSTICE ABDULLAHI ([phone]) [facility] ([facility]) [address] Laboratory - Chemistry and C hemistry - challengeon 07-07-2024 Glucose [Mass/Vol] 114 mg/dL High 70 - 100 mg/dL [facility] Lactate [Moles/Vol] 2.1 mmol/L 0.5 - 2. 2 mmol/L [facility] Magnesium [Mass/Vol] 1.5 mg/dL Low 1.6 - 2 .6 mg/dL [facility] Lactate [Moles/Vol] 2.9 mmol/L High 0.5 - 2. 2 mmol/L [facility] Laboratory - Microbiology an d Antimicrobial susceptibilityon 07-07-2024 FLUAV RNA ISRA[place]+probe Ql (Resp) Not detected Not Detected [facility] FLUBV RNA ISRAEL+probe Ql (Resp) Not detected Not Detected [facility] RSV RNA ISRAEL+probe Ql (Resp) Not detected Not Detected [facility] SARS-CoV-2 (COVID-19) RNA ISRAEL+probe Ql (Resp) Not detected Not Detected [facility] alth SARS-CoV-2 (COVID-19) RNA ISRAEL+probe Ql (Unsp spec) Methodology: real-time, RT-PCR The SARS-CoV-2, Flu A/B, and RSV Combo assay is intended for in vitro diagnostic use under the FDA Emergency Use Authorization (EUA). This test has not been FDA cleared or approved. In compliance with this authorization, please visit www.fda.gov/media/5684 35/download or www.fda.gov/media/1420 36/download to access the applicable information sheets. [facility] MAGNESIUMon 07-07-2024 Magnesium [Mass/Vol] 1.5 mg/dL Low 1.6-2.6 [facility] Comment on above: Result Comment: FIDELINA Woo COMMENTS: Higher values can be expected in females during menses. Performed By: #### L [id number], [id number], [id number] ####Supply Officer: JUSTICE ABDULLAHI ([phone])[facility] ([facility])[address] Magnesium [Mass/Vol]on 07-07 Higher values can be expected in females during menses. [facility] No Panel Informationon 07-07 Interpretation and review of laboratory results Abnormal [facility] Performed by: [facility], [address] [place] [address], [place] [address] CLIA ID: [id number] [facility] P [place] 138 degrees [facility] AR Interval 300 ms [facility] QRS [place] 60 degrees [facility] QRSD Interval 132 ms [facility] h QT Interval 445 ms [facility] QTC Interval 444 ms [facility] T Wave [place] 93 degrees [facility] Sinus or ectopic atrial rhythm Prolonged AR interval IVCD, consider LBBB Electronically Signed On 07-07-2024 21:17:34 EST by Selwyn Lai CV Selwyn Khan MD - 07/07/2024 IMPRESSION: Sinus or ectopic atrial rhythm Prolonged AR interval IVCD, consider LBBB Electronically Signed On 07-07-2024 21:17:34 EST by Selwyn Lai [facility] Interpretation and review of laboratory results Normal [facility] Interpretation and review of laboratory results Abnormal [facility] Troponin HS Delta, Baseline to Second -12 ng/L NINF - 2 ng/L [facility] Comment on above: A troponin delta gre ater than or equal to 15 ng/L is significant for acute cardiac injury. Values less than 15 but greater than 2 are an intermediate change requiring a 3rd serial troponin to be drawn. Values less than or equal to 2 indicate acute cardiac injury is not likely, see external algorithms for further clinical guidance. Troponin HS, Serial Second 33 ng/L High NINF - 14 ng/L [facility] Interpretation and review of laboratory results Abnormal [facility] Troponin HS, Serial Baseline 45 ng/L High NINF - 14 ng/L [facility] Interpretation and review of laboratory results Abnormal [facility] Interpretation and review of laboratory results Abnormal [facility] RESPIRATORY PATHOGENS PANEL BY PCRon 07-07-2024 RESPIRATORY PATHOGENS PANEL BY PCR SARS-COV-2 Reference Not Detected Not Detected ADENOVIRUS Reference Not Detected Not Detected CORONAVIRUS HKU1 Reference Not Detected Not Detected CORONAVIRUS NL63 Reference Not Detected Not Detected CORONAVIRUS 229E Reference Not Detected Not Detected CORONAVIRUS OC43 Reference Not Detected Not Detected HUMAN METAPNEUMOVIRUS Reference Not Detected Not Detected HUMAN RHINOVIRUS/ENTEROVIRUS Reference Not Detected Not Detected INFLUENZA A Reference Not Detected Not Detected INFLUENZA B Reference Not Detected Not Detected PARAINFLUENZA 1 Reference Not Detected Not Detected PARAINFLUENZA 2 Reference Not Detected Not Detected PARAINFLUENZA 3 Reference Not Detected Not Detected PARAINFLUENZA 4 Reference Not Detected Not Detected RESPIRATORY SYNCYTIAL VIRUS Reference Not Detected Not Detected BORDETELLA PERTUSSIS Reference Not Detected Not Detected BORDETELLA PARAPERTUSSIS Reference Not Detected Not Detected CHLAMYDIA PNEUMONIAE Reference Not Detected Not Detected MYCOPLASMA PNEUMONIAE Reference Not Detected Not Detected ORDER COMMENTS: Methodology: Multiplex PCR Normal [facility] Comment on above: Performed By: #### L [id number] ####Supply Officer: ENA MARRERO ([id number])[facility] ([facility])[address] [place] [address] SARS-COV-2, FLU A/B, AND RSV COMBOon 07-07-2024 SARS-CoV-2 (COVID-19) RNA ISRAEL+probe Ql (Unsp spec) SARS-COV-2 Reference Not Detected Not Detected RESPIRATORY SYNCYTIAL VIRUS Reference Not Detected Not Detected INFLUENZA A (CEPHEID) Reference Not Detected Not Detected INFLUENZA B (CEPHEID) Reference Not Detected Not Detected ORDER COMMENTS: Methodology: real-time, RT-PCR The SARS-CoV-2, Flu A/B, and RSV Combo assay is intended for in vitro diagnostic use under the FDA Emergency Use Authorization (EUA). This test has not been FDA cleared or approved. In compliance with this authorization, please visit www.fda.gov/media/1424 35/download or www.fda.gov/media/1424 36/download to access the applicable information sheets. Normal [facility] Comment on above: Performed By: #### L [id number] ####Supply Officer: JUSTICE ABDULLAHI ([id number])[facility] ([facility])[address] [place] [address] URINE CULTUREon 07-07-2024 Bacteria identified Cx Nom (U) URINE CULTURE (A) Reference ESCHERICHIA COLI >100,000 CFU/mL Escherichia coli (A) This phenotype is suggestive of an ESBL-producing organism. Treatment with beta-lactam antibiotics other than carbapenems may not be effective. Organism: ESCHERICHIA COLI Antibiotic DARIN Interpretation Status Amoxicillin / Clavulanate R F Ampicillin R F Ampicillin / Sulbactam R F Aztreonam >=64 ug/ml R F Cefazolin R F Cefepime R F Ceftriaxone >=64 ug/ml R F Ciprofloxacin >=4 ug/ml R F Gentamicin <=1 ug/ml S F Meropenem <=0.25 ug/ml S F Nitrofurantoin <=16 ug/ml S F Piperacillin / Tazobactam R F Trimethoprim / Sulfamethoxazole >=320 ug/ml R F [ S = SUSCEPTIBLE R = RESISTANT I = INTERMEDIATE S-DD = Susceptible-dose dependent NS = Non-susceptible NO = No Interpretation ] Normal [facility] Comment on above: Performed By: #### L [id number] ####Supply Officer: ENA MARRERO ([id number])[facility] ([facility])[address] [place] [address]#### [id number] ####Supply Officer: JUSTICE ABDULLAHI ([id number])[facility] ([facility])[address] [place] [address] Urinalysis complete panel (U )Ordered By: Masha Jordan on 07-07-2024 Bacteria LM.HPF (Urine sed) [#/Area] Many Abnormal Negative /HPF [facility] Bilirubin Ql (U) Negative Negative mg/dL [facility] Clarity (U) Cloudy Abnormal Clear [facility] Color (U) Yellow Lt. Yellow [facility] Epithelial cells.squamous LM.HPF (Urine sed) [#/Area] 0-2 [facility] h Glucose Ql (U) Normal Normal (<70) mg/dL [facility] Hemoglobin Ql (U) Negative Negative mg/dL [facility] Hyaline casts Auto (Urine sed) [#/Area] 3-5 Abnormal Negative /LPF [facility] Interpretation and review of laboratory results Abnormal [facility] Ketones (U) [Mass/Vol] Negative Negat todd mg/dL [facility] Leukocyte esterase Test strip Ql (U) 500 Abnormal Negative [place]/uL [facility] Mucus LM.HPF (Urine sed) [#/Area] Few Negative /LPF [facility] Nitrite Ql (U) Positive Abnormal Negative [facility] th pH (U) 5.0 [pH] 5.0 - 8.0 pH [facility] Protein (U) [Mass/Vol] Negative Negat todd mg/dL [facility] RBC LM.HPF (Urine sed) [#/Area] 3-5 Abnormal [facility] Specific gravity (U) [Rel density] 1.014 1.005 - 1.030 [facility] Urobilinogen (U) [Mass/Vol] Normal Normal (0-1) mg/dL [facility] WBC LM.HPF (Urine sed) [#/Area] 51-100 Abnormal [facility] Vital signson 07-07-2024 Heart rate 60 /min bpm [facility] XR Chest Single viewon 07-07 Mild interstitial infiltrates bilaterally may be due to edema or interstitial pneumonia. Report Dictated on Electronically Signed By: Dawood Cosme DO Electronically Signed Date/Time: 07/07/2024 3:37 PM EST [facility] Patient Name: ANA LOPES : 1945 Exam Date/Time: 07/07/2024 15:11 Procedure: XR CHEST 1 VIEW Ordering Provider: LAI GREGORY Reason For Exam: fever EXAM: XR Chest, 1 View CLINICAL INDICATION: fever TECHNIQUE: Frontal view of the chest. COMPARISON: 10/09/2016 FINDINGS: LUNGS AND PLEURAL SPACES: Mild interstitial infiltrates bilaterally may be due to edema or interstitial pneumonia. No pneumothorax. No pleural effusion. HEART: Borderline cardiomegaly, unchanged. MEDIASTINUM: Unremarkable. Normal mediastinal contour. BONES/JOINTS: Unremarkable. No acute fracture. TUBES, LINES AND DEVICES: Interval pacemaker leads terminate in the RA and RV. [facility] Dawood Cosme DO - 07/07/2024 Patient Name: ANA LOPES : 1945 Exam Date/Time: 07/07/2024 15:11 Procedure: XR CHEST 1 VIEW Ordering Provider: LAI GREGORY Reason For Exam: fever EXAM: XR Chest, 1 View CLINICAL INDICATION: fever TECHNIQUE: Frontal view of the chest. COMPARISON: 10/09/2016 FINDINGS: LUNGS AND PLEURAL SPACES: Mild interstitial infiltrates bilaterally may be due to edema or interstitial pneumonia. No pneumothorax. No pleural effusion. HEART: Borderline cardiomegaly, unchanged. MEDIASTINUM: Unremarkable. Normal mediastinal contour. BONES/JOINTS: Unremarkable. No acute fracture. TUBES, LINES AND DEVICES: Interval pacemaker leads terminate in the RA and RV. IMPRESSION: Mild interstitial infiltrates bilaterally may be due to edema or interstitial pneumonia. Report Dictated on Electronically Signed By: Dawood Cosme DO Electronically Signed Date/Time: 07/07/2024 3:37 PM EST [facility] Radiology Study observation (narrative) [facility] XR Chest Single viewOrdered By: Dawood Cosme on 07-07-2024 [facility] [employer] Work Phone: KEPPRA (LEVETIRACETAM)on KEPPRA 28.7 ug/mL Normal 10.0-40.0 [place] Comment on above: Order Comment: 409.1 Result Comment: Perf ormed at: [email or web address] [id number] Director Employee Safety And Health: Yudy Owen MD, Phone: [phone] Performed By: #### L 3310.0000 #### [facility] [address] [place], [address] CNPTOUTREACHon 05-27-2024 CNPTOUTREACH Normal [facility] KEPPRA (LEVETIRACETAM)on KEPPRA 52.4 ug/mL Abnormal 10.0-40.0 [place] Comment on above: Order Comment: 207.1 Result Comment: Perf ormed at: [email or web address] [id number] Director Employee Safety And Health: Yudy Owen MD, Phone: [phone] Performed By: #### L 500.2500, L100.0500 #### [facility] [address] [place], [address] Basic Metabolic Profile (BMP )on 05-20-2024 BUN/CRE 17.3 RATIO Normal - [facility] Comment on above: Order Comment: 409.1 Performed By: #### L [id number], L100.0500, L500.2500, L3310.0000 #### [facility] [address] [place], [address] CA,Total 9.4 mg/dL Normal 8.5-10.1 [facility] Comment on above: Order Comment: 409.1 Performed By: #### L 501.9985, L100.0500, L500.2500, L3310.0000 #### [facility] [address] [place], [address] Chloride [Moles/Vol] 106 mmol/L Normal 98-107 [facility] Comment on above: Order Comment: 409.1 Performed By: #### L 501.9985, L100.0500, L500.2500, L3310.0000 #### [facility] [address] [place], [address] CO2 [Moles/Vol] 32.0 mmol/L Normal 21.0-32.0 [facility] Comment on above: Order Comment: 409.1 Performed By: #### L 501.9985, L100.0500, L500.2500, L3310.0000 #### [facility] [address] [place], [address] Creatinine [Mass/Vol] 0.87 mg/dL Normal 0.55-1.02 [facility] Comment on above: Order Comment: 409.1 Result Comment: The validity of the calculated GFR GFRAA in patients over 70 years has not been determined. Clinical correlation is essential. Performed By: #### L 501.9985, L100.0500, L500.2500, L3310.0000 #### [facility] [address] [place], [address] EST GFR - AA 82 mL/min Normal >60 [facility] Comment on above: Order Comment: 409.1 Result Comment: Afri can [place] GFR Calc Performed By: #### L 501.9985, L100.0500, L500.2500, L3310.0000 #### [facility] [address] [place], [address] GAP 3 Low 5-15 [facility] Comment on above: Order Comment: 409.1 Performed By: #### L 501.9985, L100.0500, L500.2500, L3310.0000 #### [facility] [address] [place], [address] GFR/1.73 sq M.predicted among non-blacks MDRD (S/P/Bld) [Vol rate/Area] 67 mL/min/{1.73_m2} Normal >60 [facility] Comment on above: Order Comment: 409.1 Result Comment: Non- GFR Calc Performed By: #### L 501.9985, L100.0500, L500.2500, L3310.0000 #### [facility] [address] [place], [address] Glucose [Mass/Vol] 115 mg/dL High 74-106 [facility] Comment on above: Order Comment: 409.1 Result Comment: Fast ing Glucose result from 100 to 125 mg/dL suggests IMPAIRED HOMEOSTASIS per A.D.A. criteria. Performed By: #### L 501.9985, L100.0500, L500.2500, L3310.0000 #### [facility] [address] [place], [address] Potassium [Moles/Vol] 4.1 mmol/L Normal 3.5-5.1 [facility] Comment on above: Order Comment: 409.1 Performed By: #### L 501.9985, L100.0500, L500.2500, L3310.0000 #### [facility] [address] [place], [address] Sodium [Moles/Vol] 141 mmol/L Normal 136-145 [facility] Comment on above: Order Comment: 409.1 Performed By: #### L 501.9985, L100.0500, L500.2500, L3310.0000 #### [facility] [address] [place], [address] Urea nitrogen [Mass/Vol] 15 mg/dL Normal 7-18 [place] Comment on above: Order Comment: 409.1 Performed By: #### L 501.9985, L100.0500, L500.2500, L3310.0000 #### [facility] [address] [place], [address] CBC-Complete Blood Cnt No Di ffon 05-20-2024 Erythrocyte distribution width (RBC) [Ratio] 13.2 % Normal 11.6-14.6 [facility] Comment on above: Order Comment: 409.1 Performed By: #### L 501.9985, L100.0500, L500.2500, L3310.0000 #### [facility] [address] [place], [address] Hematocrit (Bld) [Volume fraction] 42.8 % Normal 37-47 [facility] Comment on above: Order Comment: 409.1 Performed By: #### L 501.9985, L100.0500, L500.2500, L3310.0000 #### [facility] [address] [place], [address] Hemoglobin (Bld) [Mass/Vol] 13.5 g/dL Normal 12.0-15.0 [facility] Comment on above: Order Comment: 409.1 Performed By: #### L 501.9985, L100.0500, L500.2500, L3310.0000 #### [facility] [address] [place], [address] MCH (RBC) [Entitic mass] 29.9 pg Normal 27.0-32.0 [facility] Comment on above: Order Comment: 409.1 Performed By: #### L 501.9985, L100.0500, L500.2500, L3310.0000 #### [facility] [address] [place], [address] MCHC (RBC) [Mass/Vol] 31.5 g/dL Low 32-36 [facility] Comment on above: Order Comment: 409.1 Performed By: #### L 501.9985, L100.0500, L500.2500, L3310.0000 #### [facility] [address] [place], [address] MCV (RBC) [Entitic vol] 94.9 fL Normal 81-99 [facility] Comment on above: Order Comment: 409.1 Performed By: #### L 501.9985, L100.0500, L500.2500, L3310.0000 #### [facility] [address] [place], [address] Platelet mean volume (Bld) [Entitic vol] 9.7 fL Normal 6.2-12.0 [facility] Comment on above: Order Comment: 409.1 Performed By: #### L 501.9985, L100.0500, L500.2500, L3310.0000 #### [facility] [address] [place], [address] Platelets (Bld) [#/Vol] 280 10*3/uL Normal 150-450 [facility] Comment on above: Order Comment: 409.1 Performed By: #### L 501.9985, L100.0500, L500.2500, L3310.0000 #### [facility] [address] [place], [address] RBC (Bld) [#/Vol] 4.51 10*6/uL Normal 4.2-5.4 [facility] Comment on above: Order Comment: 409.1 Performed By: #### L 501.9985, L100.0500, L500.2500, L3310.0000 #### [facility] [address] [place], [address] RDW SD 46.2 fl High 35.1-43.9 [facility] Comment on above: Order Comment: 409.1 Performed By: #### L 501.9985, L100.0500, L500.2500, L3310.0000 #### [facility] [address] [place], [address] WBC (Bld) [#/Vol] 11.1 10*3/uL High 4.4-11.0 [facility] Comment on above: Order Comment: 409.1 Performed By: #### L 501.9985, L100.0500, L500.2500, L3310.0000 #### [facility] [address] [place], [address] Hemoglobin A1con 05-20-2024 HbA1c (Bld) [Mass fraction] 6.4 % High 3.8-5.6 [facility] Comment on above: Order Comment: 207.1 Result Comment: Norm al < 5.7 % Prediabetic 5.7 - 6.4 % Diabetic >or= 6.5 % Please note range changes. Performed By: #### L 500.2500, L100.0500 #### [facility] [address] [place], [place], [address] [facility] A[facility] ([id number]) 1945 F T Date Time Provider Department 04/20/24 VONNIE ZIEGLER [facility] During your visit today, we recorded the following information about you: Allergies As of Date: 04/20/2024 Noted Allergy Reaction CODEINE 03/09/2023 16 - Unknown NITROGLYCERIN 03/04/2015 3 - Cough Comments: Seizure NITROGLYCERIN 03/09/2023 16 - Unknown OMEPRAZOLE 03/04/2015 6 - Diarrhea PROPOXYPHENE 03/04/2015 14 - Other: See Comments Comments: Headache ACETAMINOPHEN 03/15/2016 8 - GI Upset CODEINE 03/04/2015 2 - Rash NABUMETONE 03/04/2015 8 - GI Upset Date Reviewed: 12/27/2023 Reviewed by: Umang Phillips RN - Fully Assessed Prescriptions as of 12/10/2024 - Senna 8.6 mg tab Take 8.6 mg by mouth once daily. - polyethylene glycol 3350 (MIRALAX) 17 gram/dose powder Take 17 g by mouth once daily. Dissolve dose in 4 - 8 ounces of liquid and take as directed. - magnesium oxide (MAG-OX) 400 mg (241.3 mg magnesium) tablet Take 1 tablet by mouth once daily. - levETIRAcetam (KEPPRA) 500 mg tablet Take 500 mg by mouth two times a day. - acetaminophen 325 mg cap Take 650 mg by mouth every 6 hours as needed for pain or fever (specify temp.). - aspirin 81 mg chewable tablet Take 1 tablet by mouth once daily. - Biotin 10,000 mcg cap Take 1 capsule by mouth once daily. - prednisoLONE acetate (PRED FORTE) 1 % ophthalmic suspension Use 1 Drop in both eyes three times a day. - polyvinyl alcohol (LIQUIFILM TEARS) 1.4 % ophthalmic solution Use 1 Drop in both eyes as needed. - albuterol HFA (PROVENTIL HFA, VENTOLIN HFA) 90 mcg/actuation inhaler INHALE 2 PUFFS BY MOUTH EVERY 6 HOURS INSTRUCTED NEEDED - [id number]-[id number] osphatid 1.7 mg-400 mcg- 2.4 mcg cap Take 1 capsule by mouth once daily. - umeclidinium-vilantero l (ANORO ELLIPTA) 62.5-25 mcg/actuation inhaler Inhale 1 Inhalation as instructed once daily. - atorvastatin (LIPITOR) 80 mg tablet Take 1 tablet by mouth daily at bedtime. - fluticasone (FLONASE) 50 mcg/actuation nasal spray Use 1 [place] in each nostril once daily. - furosemide (LASIX) 20 mg tablet Take 1 tablet by mouth once daily. - metFORMIN (GLUCOPHAGE) 1,000 mg tablet Take 1 tablet by mouth two times a day with meals. - odavela-yyuwzezzf-svzc min D3 (OYSTER SHELL CALCIUM-VITAMIN D) 500 mg-5 mcg (200 unit) per tablet TAKE 1 TABLET BY MOUTH EVERY MORNING - Vitamin E external oil Apply 1 application to affected area once daily. - nystatin (MYCOSTATIN) powder APPLY TOPICALLY TO AFFECTED AREAS TWICE DAILY - diclofenac (VOLTAREN) 1 % topical gel Apply 4 g to affected area four times a day as needed (Pain). - multivitamin with minerals (VISION/OPTIGEN) tablet Take 1 tablet by mouth once daily. - cetirizine (ZYRTEC) 10 mg tablet Take 1 tablet by mouth once daily. Meds Comments as of 02/26/2022: Updated on 02/26/22 per a packing slip from "[facility]" on 01/17/22 Problem List As Of Date 04/20/2024 Noted Resolved Debility [R53.81] 02/06/2018 Hypercholesteremia [E78.00] 02/06/2018 MARY (obstructive sleep apnea) [G47.33] 02/06/2018 Allergic rhinitis [J30.9] 02/06/2018 Anxiety [F41.9] 02/06/2018 Hypertension [I10] 02/06/2018 03/09/2023 Seizure disorder (HCC) [G40.909] 02/06/2018 Lymphedema of both lower extremities [I89.0] 02/09/2018 GERD (gastroesophageal reflux disease) [K21.9] 02/09/2018 Osteoarthrosis [M19.90] 02/09/2018 Type 2 diabetes mellitus with complication, wit*02/26/2018 Restrictive lung disease [J98.4] 03/13/2018 Cortical age-related cataract of both eyes [H25*04/01/2018 Class 3 obesity with alveolar hypoventilation w*04/01/2018 History of peptic ulcer disease [Z87.11] 2018 Hiatal hernia [K44.9] 2018 Stress incontinence [N39.3] 08/06/2018 Intertriginous dermatitis associated with moist*03/28/2019 History of bilateral cataract extraction [Z98.4*11/24/2019 Refractive error [H52.7] 09/16/2020 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] 09/16/2020 Type 2 diabetes mellitus without retinopathy (H*09/16/2020 Pseudophakia of both eyes [Z96.1] 09/16/2020 Pseudophakia of left eye [Z96.1] 09/16/2020 03/29/2023 Nephrolithiasis [N20.0] 10/14/2020 03/29/2023 COPD (chronic obstructive pulmonary disease) (H*10/14/2020 Syncope and collapse [R55] 12/23/2020 Inadequate housing [Z59.10] 12/23/2020 Infiltrate of upper lobe of right lung present *12/23/2020 10/19/2023 Lung fibrosis (HCC) [J84.10] 03/28/2021 Pulmonary hypertension (HCC) [I27.20] 03/28/2021 Pneumonia [J18.9] 03/05/2023 03/05/2023 Asymptomatic bacteriuria [R82.71] 03/05/2023 05/17/2023 Acute pulmonary edema (HCC) [J81.0] 05/14/2023 05/17/2023 Chronic heart failure with preserved ejection f*05/16/2023 Interstitial lung disease (HCC) [J84.9] 05/16/2023 Breakthrough seizure (HCC) [G40.919] 10/19/2023 Frequent falls [R29.6] 10/19/2023 Hypomagnesemia [ (more content not included)... Normal [facility] CNPNon 04-14-2024 CNPN Normal [facility] No Panel Informationon 04-13 BLANK _ [facility] Implant Date 10/22/2023 [facility] PACEMAKER REMOTE CHECKon AV Delay Adaptive Paced Minimum (ms) 300 ms [facility] AV Delay Adaptive Sensed Minimum (ms) 250 ms [facility] AV Delay Adaptive Status DISABLED [facility] Battery Voltage (volts) 3.11 V [facility] Дмитрий RA Pacing Amplitude (volts) 2.25 V [facility] Дмитрий RA Pacing Polarity BI [facility] Дмитрий RA Pacing Pulse Width (ms) 0.4 ms [facility] Дмитрий RA Sensing Amplitude (mvolts) 0.3 mV [facility] Дмитрий RA Sensing Blanking Period (ms) 150 ms [facility] Дмитрий RA Sensing Polarity BI [facility] Дмитрий RA Sensing Refractory Period (ms) Auto [facility] Дмитрий RV Pacing Amplitude (volts) 2 V [facility] Дмитрий RV Pacing Polarity BI [facility] Дмитрий RV Pacing Pulse Width (ms) 0.4 ms [facility] Дмитрий RV Sensing Amplitude (mvolts) 0.9 mV [facility] Дмитрий RV Sensing Blanking Period (ms) 200 ms [facility] Дмитрий RV Sensing Polarity BI [facility] Hysteresis Rate (bpm) DISABLED [facility] Lead1 [employer]fg [employer] [facility] [facility] [facility] Location RV [facility] Location RA [facility] Lower Rate (bpm) 60 {beats}/min [facility] Max Sensor Rate (bmp) 120 {beats}/min [facility] Model [id number] [place] XT DR MRI Cl [facility] Model 3830-69 [facility] Model 5076-52 Capsurefix Novus [facility] Pacing Mode DDD [facility] PM-Device Mfg MDT [facility] PM-Percent Pacing (A) 5.9 % [facility] PM-Percent Pacing (V) 99.84 % [facility] PM-PMT Intervention ENABLED [facility] PM-PVC Intervention ENABLED [facility] PM-Rate Modulation Acceleration Reaction 30 s [facility] PM-Rate Modulation ADL Rate (bpm) 95 {beats}/min [facility] PM-Rate Modulation Deceleration Exercise [facility] PM-Rate Modulation Greenlee 3 [facility] PM-Rate Modulation Threshold Low [facility] RA Bipolar Impedance ohms 627 ohm [facility] RA Unipolar Impedance ohms 304 ohm [facility] RV Bipolar Impedance ohms 570 ohm [facility] RV Unipolar Impedance 418 ohm [facility] Serial Number [id number] [facility] Serial Number [id number] [facility] Serial Number [id number] [facility] Thresh RA Capture Amplitude (volts) 1.125 V [facility] Thresh RA Capture Duration (ms) 0.4 ms [facility] Thresh RA Sensing Amplitude (mvolts) 3.125 mV [facility] Thresh RV Capture Amplitude (volts) 0.625 V [facility] Thresh RV Capture Duration (ms) 0.4 ms [facility] Thresh RV Sensing Amplitude (mvolts) 6.5 mV [facility] Tracking Rate (bpm) 120 {beats}/min [facility] PM remote interrogation. 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 Interrogation shows 1 ventricular high rate and no mode switch episodes since last check 01/06/24. EGM shows NSVT, duration 14 beats. Lead impedances and RA sensing measurements stable. Battery voltage stable. Recommended replacement time is 12.2 years (11.7-12.8 years). Sushil Gamez RN NOTE TO PROVIDERS: "CARD" Flowsheets contain detailed device programming and testing data. Paceart/Interrogation PDF can be found under CARDIAC DATA AND REPORT, "Scanned Documents" section. PACEART 04/13/2024 Formattin g of this note might be different from the original. PM remote interrogation. 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 Interrogation shows 1 ventricular high rate and no mode switch episodes since last check 01/06/24. EGM shows NSVT, duration 14 beats. Lead impedances and RA sensing measurements stable. Battery voltage stable. Recommended replacement time is 12.2 years (11.7-12.8 years). Sushil Gamez RN NOTE TO PROVIDERS: "CARD" Flowsheets contain detailed device programming and testing data. Paceart/Interrogation PDF can be found under CARDIAC DATA AND REPORT, "Scanned Documents" section. [facility] CNPNon 01-07-2024 CNPN Normal [facility] No Panel Informationon 01-05 BLANK _ [facility] Implant Date 10/22/2023 [facility] PACEMAKER REMOTE CHECKon AV Delay Adaptive Paced Minimum (ms) 300 ms [facility] AV Delay Adaptive Sensed Minimum (ms) 250 ms [facility] AV Delay Adaptive Status DISABLED [facility] Battery Voltage (volts) 3.16 V [facility] Дмитрий RA Pacing Amplitude (volts) 2 V [facility] Дмитрий RA Pacing Polarity BI [facility] Дмитрий RA Pacing Pulse Width (ms) 0.4 ms [facility] Дмитрий RA Sensing Amplitude (mvolts) 0.3 mV [facility] Дмитрий RA Sensing Blanking Period (ms) 150 ms [facility] Дмитрий RA Sensing Polarity BI [facility] Дмитрий RA Sensing Refractory Period (ms) Auto [facility] Дмитрий RV Pacing Amplitude (volts) 2 V [facility] Дмитрий RV Pacing Polarity BI [facility] Дмитрий RV Pacing Pulse Width (ms) 0.4 ms [facility] Дмитрий RV Sensing Amplitude (mvolts) 0.9 mV [facility] Дмитрий RV Sensing Blanking Period (ms) 200 ms [facility] Дмитрий RV Sensing Polarity BI [facility] Hysteresis Rate (bpm) DISABLED [facility] Lead1 Mfg Medtronic [facility] Lead2 Mfg Medtronic [facility] Location RV [facility] Location RA [facility] Lower Rate (bpm) 60 {beats}/min [facility] Max Sensor Rate (bmp) 120 {beats}/min [facility] Model [id number] [place] XT DR MRI Cl [facility] Model 3830-69 [facility] Model 5076-52 Capsurefix Novus [facility] Pacing Mode DDD [facility] PM-Device Mfg MDT [facility] PM-Percent Pacing (A) 21.77 % [facility] PM-Percent Pacing (V) 99.87 % [facility] PM-PMT Intervention ENABLED [facility] PM-PVC Intervention ENABLED [facility] PM-Rate Modulation Acceleration Reaction 30 s [facility] PM-Rate Modulation ADL Rate (bpm) 95 {beats}/min [facility] PM-Rate Modulation Deceleration Exercise [facility] PM-Rate Modulation Greenlee 3 [facility] PM-Rate Modulation Threshold Low [facility] RA Bipolar Impedance ohms 475 ohm [facility] RA Unipolar Impedance ohms 304 ohm [facility] RV Bipolar Impedance ohms 570 ohm [facility] RV Unipolar Impedance 418 ohm [facility] Serial Number [id number] [facility] Serial Number [id number] [facility] Serial Number [id number] [facility] Thresh RA Capture Amplitude (volts) 0.875 V [facility] Thresh RA Capture Duration (ms) 0.4 ms [facility] Thresh RA Sensing Amplitude (mvolts) 2.875 mV [facility] Thresh RV Capture Amplitude (volts) 0.625 V [facility] Thresh RV Capture Duration (ms) 0.4 ms [facility] Thresh RV Sensing Amplitude (mvolts) 7 mV [facility] Tracking Rate (bpm) 120 {beats}/min [facility] PM remote interrogation. 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 Interrogation shows no ventricular high rate or mode switch episodes since last check. Lead impedances and sensing measurements stable. Battery voltage stable. Recommended replacement time is 12.7 years. Pooja Ferrera RN NOTE TO PROVIDERS: "CARD" Flowsheets contain detailed device programming and testing data. Paceart/Interrogation PDF can be found under CARDIAC DATA AND REPORT, "Scanned Documents" section. PACEART 01/06/2024 Formattin g of this note might be different from the original. PM remote interrogation. 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 Interrogation shows no ventricular high rate or mode switch episodes since last check. Lead impedances and sensing measurements stable. Battery voltage stable. Recommended replacement time is 12.7 years. Pooja Ferrera RN NOTE TO PROVIDERS: "CARD" Flowsheets contain detailed device programming and testing data. Paceart/Interrogation PDF can be found under CARDIAC DATA AND REPORT, "Scanned Documents" section. [facility] CNPTOUTREACHon 01-01-2024 CNPUTREA Normal [facility] CNPTOUTREACHon 12-30-2023 [facility] Basic metabolic 2000 panelon 12-29-2023 Anion gap [Moles/Vol] 9 mmol/L Normal 8-15 [facility] Comment on above: Order Comment: Speci men Type: URINE SPECIMEN Ordering Facility: [facility] Address: [address] [place] [address] Performed By: #### 2 4356-8 #### [facility] CLIA [id number] [address] [place] [address] Order Comment: Speci men Type: BLOOD SPECIMENOrdering Facility: [facility] Address: [address] [place] [address] Performed By: #### 2 4321-2 ####[facility] [id number] [address] STATES OF [facility] Calcium [Mass/Vol] 8.6 mg/dL Normal 8.5-10.2 [facility] Comment on above: Order Comment: Speci men Type: URINE SPECIMEN Ordering Facility: [facility] Address: [address] [place] [address] Performed By: #### 2 4356-8 #### [facility] CLIA [id number] [address] [place] [address] Order Comment: Speci men Type: BLOOD SPECIMENOrdering Facility: [facility] Address: [address] [place] [address] Performed By: #### 2 4321-2 ####[facility] [id number] [address] Chloride [Moles/Vol] 99 mmol/L Normal 98-107 [facility] Comment on above: Order Comment: Speci men Type: URINE SPECIMEN Ordering Facility: [facility] Address: [address] [place] [address] Performed By: #### 2 4356-8 #### [facility] CLIA [id number] [address] Order Comment: Speci men Type: BLOOD SPECIMENOrdering Facility: [facility] Address: [address] [place] [address] Performed By: #### 2 4321-2 ####[facility] [id number] [address] CO2 [Moles/Vol] 31 mmol/L High 22-30 [facility] Comment on above: Order Comment: Speci men Type: URINE SPECIMEN Ordering Facility: [facility] Address: [address] [place] [address] Performed By: #### 2 4356-8 #### [facility] CLIA [id number] [address] Order Comment: Speci men Type: BLOOD SPECIMENOrdering Facility: [facility] Address: [address] [place] [address] Performed By: #### 2 4321-2 ####[facility] [id number] [address] [place] Creatinine [Mass/Vol] 0.82 mg/dL Normal 0.58-0.96 [facility] Comment on above: Order Comment: Speci men Type: URINE SPECIMEN Ordering Facility: [facility] Address: [address] [place] [address] Performed By: #### 2 4356-8 #### [facility] CL[facility] [id number] [address] Order Comment: Speci men Type: BLOOD SPECIMENOrdering Facility: [facility] Address: [address] [place] [address] Performed By: #### 2 4321-2 ####[facility] [id number] [address] Creatinine and Glomerular filtration rate.predicted panel (S/P/Bld) 74 mL/min/1.73m??? Normal >=60 [facility] Comment on above: Order Comment: Speci men Type: URINE SPECIMEN Ordering Facility: [facility] Address: [address] [place] [address] Result Comment: Whitney mated Glomerular Filtration Rate (eGFR) is calculated using the 2020 CKD-EPI creatinine equation. This equation utilizes serum creatinine, sex, and age as parameters. The creatinine assay has traceable calibration to isotope dilution-mass spectrometry. Refer to KDIGO guidelines for clinical interpretation. In patients with unstable renal function, e.g. those with acute kidney injury, the eGFR may not accurately reflect actual GFR. Performed By: #### 2 4356-8 #### [facility] CLIA [id number] [address] [place] [address] Order Comment: Speci men Type: BLOOD SPECIMENOrdering Facility: [facility] Address: [address] [place] [address] Result Comment: Whitney mated Glomerular Filtration Rate (eGFR) is calculated using the 2020 CKD-EPI creatinine equation. This equation utilizes serum creatinine, sex, and age as parameters. The creatinine assay has traceable calibration to isotope dilution-mass spectrometry. Refer to KDIGO guidelines for clinical interpretation. In patients with unstable renal function, e.g. those with acute kidney injury, the eGFR may not accurately reflect actual GFR. Performed By: #### 2 4321-2 ####[facility] [id number] [address] STATES OF [facility] Glucose [Mass/Vol] 102 mg/dL High 74-99 [facility] Comment on above: Order Comment: [facility] Type: URINE SPECIMEN Ordering Facility: [facility] Address: [address] [place] [address] Result Comment: The [place] [employer] (ADA) provides guidance for cutoff values for fasting glucose and random glucose. The ADA defines fasting as no caloric intake for at least 8 hours. Fasting plasma glucose results between 100 to 125 mg/dL indicate increased risk for diabetes (prediabetes). Fasting plasma glucose results greater than or equal to 126 mg/dL meet the criteria for diagnosis of diabetes. In the absence of unequivocal hyperglycemia, results should be confirmed by repeat testing. In a patient with classic symptoms of hyperglycemia or hyperglycemic crisis, random plasma glucose results greater than or equal to 200 mg/dL meet the criteria for diagnosis of diabetes. Reference: Standards of Medical Care in Diabetes 2016, [place] [employer]. Diabetes Care. 2016.39(Suppl 1). Performed By: #### 2 4356-8 #### [facility] CLIA [id number] [address] OF [facility] Type: BLOOD SPECIMENOrdering Facility: [facility] Address: [address] [place] [address] Result Comment: The [place] [employer] (ADA) provides guidance for cutoff values for fasting glucose and random glucose. The ADA defines fasting as no caloric intake for at least 8 hours. Fasting plasma glucose results between 100 to 125 mg/dL indicate increased risk for diabetes (prediabetes).Fasting plasma glucose results greater than or equal to 126 mg/dL meet the criteria for diagnosis of diabetes. In the absence of unequivocal hyperglycemia, results should be confirmed by repeat testing. In a patient with classic symptoms of hyperglycemia or hyperglycemic crisis, random plasma glucose results greater than or equal to 200 mg/dL meet the criteria for diagnosis of diabetes.Reference: Standards of Medical Care in Diabetes 2016, [place] [employer]. Diabetes Care. 2016.39(Suppl 1). Performed By: #### 2 4321-2 ####[facility] [id number] [address] [place] Potassium [Moles/Vol] 3.8 mmol/L Normal 3.7-5.1 [facility] Comment on above: Order Comment: Adii men Type: URINE SPECIMEN Ordering Facility: [facility] Address: [address] [place] [address] Performed By: #### 2 4356-8 #### [facility] CLIA [id number] [address] Order Comment: Speci men Type: BLOOD SPECIMENOrdering Facility: [facility] Address: [address] [place] [address] Performed By: #### 2 4321-2 ####[facility] [id number] [address] Sodium [Moles/Vol] 139 mmol/L Normal 136-144 [facility] Comment on above: Order Comment: Speci men Type: URINE SPECIMEN Ordering Facility: [facility] Address: [address] [place] [address] Performed By: #### 2 4356-8 #### [facility] CLIA [id number] [address] Order Comment: Speci men Type: BLOOD SPECIMENOrdering Facility: [facility] Address: [address] [place] [address] Performed By: #### 2 4321-2 ####[facility] [id number] [address] Urea nitrogen [Mass/Vol] 12 mg/dL Normal 7-21 [facility] Comment on above: Order Comment: Speci men Type: URINE SPECIMEN Ordering Facility: [facility] Address: [address] [place] [address] Performed By: #### 2 4356-8 #### [facility] CLIA [id number] [address] Order Comment: Speci men Type: BLOOD SPECIMENOrdering Facility: [facility] Address: [facility] [place] [address] Performed By: #### 2 4321-2 ####[facility] [id number] [address] CASE MANAGEMon 12-29-2023 CASE MANAGEM Normal [facility] CASE MANAGEM Normal [facility] CASE MGT INIT ASSESon 2023 CASE MGT INIT ASSES Normal [facility] CBC panel Auto (Bld)on 12-28 Erythrocyte distribution width (RBC) [Ratio] 14.0 % Normal 11.5-15.0 [facility] Comment on above: Order Comment: Speci men Type: BLOOD SPECIMENOrdering Facility: [facility] Address: [address] [place] [address] Performed By: #### 5 8410-2 ####[facility] [id number] [address] Order Comment: Speci men Type: BLOOD SPECIMENOrdering Facility: [facility] Address: [address] [place] [address] Performed By: #### 5 8410-2 ####[facility] [id number] [address] [place] Hematocrit (Bld) [Volume fraction] 34.9 % Low 36.0-46.0 [facility] Comment on above: Order Comment: Speci men Type: BLOOD SPECIMENOrdering Facility: [facility] Address: [address] [place] [address] Performed By: #### 5 8410-2 ####[facility] [id number] [address] Order Comment: Speci men Type: BLOOD SPECIMENOrdering Facility: [facility] Address: [address] [place] [address] Performed By: #### 5 8410-2 ####[facility] [id number] [place] [address] [place] Hemoglobin (Bld) [Mass/Vol] 11.1 g/dL Low 11.5-15.5 [facility] Comment on above: Order Comment: Speci men Type: BLOOD SPECIMENOrdering Facility: [facility] Address: [address] [place] [address] Performed By: #### 5 8410-2 ####[facility] [id number] [address] Order Comment: Speci men Type: BLOOD SPECIMENOrdering Facility: [facility] Address: [address] [place] [address] Performed By: #### 5 8410-2 ####[facility] [id number] [address] MCH (RBC) [Entitic mass] 30.7 pg Normal 26.0-34.0 [facility] Comment on above: Order Comment: Speci men Type: BLOOD SPECIMENOrdering Facility: [facility] Address: [address] [place] [address] Performed By: #### 5 8410-2 ####[facility]ORY[facility]IA [id number] [address] Order Comment: Speci men Type: BLOOD SPECIMENOrdering Facility: [facility] Address: [address] [place] [address] Performed By: #### 5 8410-2 ####[facility] [id number] [address] MCHC (RBC) [Mass/Vol] 31.8 g/dL Normal 30.5-36.0 [facility] Comment on above: Order Comment: Speci men Type: BLOOD SPECIMENOrdering Facility: [facility] Address: [address] [place] [address] Performed By: #### 5 8410-2 ####[facility] [id number] [address] Order Comment: Speci men Type: BLOOD SPECIMENOrdering Facility: [facility] Address: [address] [place] [address] Performed By: #### 5 8410-2 ####[facility]ORYCLIA [id number] [address] OF [facility] MCV (RBC) [Entitic vol] 96.4 fL Normal 80.0-100.0 [facility] Comment on above: Order Comment: Speci men Type: BLOOD SPECIMENOrdering Facility: [facility] Address: [address] [place] [address] Performed By: #### 5 8410-2 ####[facility] [id number] [address] Order Comment: Speci men Type: BLOOD SPECIMENOrdering Facility: [facility] Address: [address] [place] [address] Performed By: #### 5 8410-2 ####[facility] [id number] [address] Nucleated RBC (Bld) [#/Vol] 10*3/uL Normal <0.01 [facility] Comment on above: Order Comment: Speci men Type: BLOOD SPECIMENOrdering Facility: [facility] Address: [address] [place] [address] Performed By: #### 5 8410-2 ####[facility]ORYCLIA [id number] [address] Order Comment: Speci men Type: BLOOD SPECIMENOrdering Facility: [facility] Address: [address] [place] [address] Performed By: #### 5 8410-2 ####[facility] [id number] [address] Platelet mean volume (Bld) [Entitic vol] 9.4 fL Normal 9.0-12.7 [facility] Comment on above: Order Comment: Speci men Type: BLOOD SPECIMENOrdering Facility: [facility] Address: [address] [place] [address] Performed By: #### 5 8410-2 ####[facility] [id number] [address] Order Comment: Speci men Type: BLOOD SPECIMENOrdering Facility: [facility] Address: [address] [place] [address] Performed By: #### 5 8410-2 ####[facility] [id number] [address] Platelets (Bld) [#/Vol] 157 10*3/uL Normal 150-400 [facility] Comment on above: Order Comment: Speci men Type: BLOOD SPECIMENOrdering Facility: [facility] Address: [address] [place] [address] Performed By: #### 5 8410-2 ####[facility] [id number] [address] Order Comment: Speci men Type: BLOOD SPECIMENOrdering Facility: [facility] Address: [address] [place] [address] Performed By: #### 5 8410-2 ####[facility] [id number] [address] RBC (Bld) [#/Vol] 3.62 10*6/uL Low 3.90-5.20 [facility] Comment on above: Order Comment: Speci men Type: BLOOD SPECIMENOrdering Facility: [facility] Address: [address] [place] [address] Performed By: #### 5 8410-2 ####[facility] [id number] [address] Order Comment: Speci men Type: BLOOD SPECIMENOrdering Facility: [facility] Address: [address] [place] [address] Performed By: #### 5 8410-2 ####[facility] [id number] [address] WBC (Bld) [#/Vol] 7.59 10*3/uL Normal 3.70-11.00 [facility] Comment on above: Order Comment: Speci men Type: BLOOD SPECIMENOrdering Facility: [facility] Address: [address] [place] [address] Performed By: #### 5 8410-2 ####[facility]ORY[facility]IA [id number] [address] Order Comment: Ashu garcia Type: BLOOD SPECIMENOrdering Facility: [facility] Address: [address] [place] [address] Performed By: #### 5 8410-2 ####[facility]ORYCL[facility] [id number] [address] CNDSon 12-29-2023 CNDS HNO ID: [id number] Author: TAMI LONG DO Service: Family Practice Author Type: Resident Type: Discharge Summary Filed: 12/29/2023 23:54 Note Text: Attestation signed by Tami Long DO at 12/29/2023 11:54 PM Attending Note I evaluated the patient 12/29/23 and personally participated in the clayton components. I agree with the resident's findings and plan as documented and have discussed the case and management of the patient's care with the resident. Plan of care discussed with: Provider, RN, Patient. Pt tolerating po well, no N/V/D since admission Labs look good pLAN: - CM to assist with d/c back to SNF I have performed the szbf-rn-qann and relevant services for a total of < 30 minutes. Signature: Tami Long DO Date: December 29, 2023 Time: 11:51 PM DISCHARGE SUMMARY [facility] Patient Name: Ana Lopes Admission Date: 12/27/2023 Discharge Date: 12/29/2023 Length of Stay: 1 day(s) Disposition:SNF: Name of Facility: [facility] Condition at Discharge: Stable Code Status: Not on file Attending At Discharge: Dr. Tami Long DO Reason For Admission: SAQIB (acute kidney injury) (HCC) Physical Exam see today's progress note HOSPITAL DIAGNOSIS LIST: Principal Problem (Resolved): SAQIB (acute kidney injury) (HCC) (POA: Yes) Active Problems: Chronic obstructive pulmonary disease, unspecified (HCC) (POA: Yes) Chronic diastolic (congestive) heart failure (HCC) (POA: Yes) Hyperlipidemia, unspecified (POA: Yes) Hypertensive heart disease with heart failure (HCC) (POA: Yes) Interstitial pulmonary disease, unspecified (HCC) (POA: Yes) Morbid (severe) obesity with alveolar hypoventilation (HCC) (POA: Yes) Obstructive sleep apnea (adult) (pediatric) (POA: Yes) Presence of cardiac pacemaker (POA: Yes) Rheumatoid arthritis, unspecified (HCC) (POA: Yes) Type 2 diabetes mellitus without complication, without long-term current use of insulin (HCC) (POA: Yes) Sick sinus syndrome (HCC) (POA: Yes) Seizure disorder (HCC) (POA: Yes) Lymphedema (POA: Yes) UTI (urinary tract infection) (POA: Yes) Seasonal rhinitis (POA: Yes) Medications: Medication List START taking these medications amoxicillin 875 mg tablet Commonly known as: AMOXIL Take 1 tablet by mouth every 12 hours for 5 days. CONTINUE taking these medications albuterol HFA 90 mcg/actuation inhaler Commonly known as: PROVENTIL HFA, VENTOLIN HFA Inhale 2 Puffs as instructed every 6 hours as needed for wheezing/shortness of breath. aspirin 81 mg chewable tablet Take 1 tablet by mouth once daily. atorvastatin 80 mg tablet Commonly known as: LIPITOR Take 1 tablet by mouth once daily. A0-ydyyp-[id number]-zjabfs-se osphatid 1.7 mg-400 mcg- 2.4 mcg Cap Take 1 capsule by mouth once daily. Biotin 10,000 mcg Cap Take 1 capsule by mouth once daily. xqmqace-ygdkkynnd-lxjd min D3 500 mg-5 mcg (200 unit) per tablet Commonly known as: Oyster Shell Calcium-Vitamin D Take 1 tablet by mouth once daily. cetirizine 10 mg tablet Commonly known as: ZyrTEC Take 1 tablet by mouth once daily. diclofenac 1 % topical gel Commonly known as: VOLTAREN ARTHRITIS PAIN Apply 4 g to affected area four times daily. fluticasone 50 mcg/actuation nasal spray Commonly known as: FLONASE ALLERGY RELIEF Use 1 [place] in each nostril once daily. furosemide 20 mg tablet Commonly known as: LASIX Take 2 tablets by mouth once daily for 7 days, THEN 1 tablet once daily. Start taking on: December 11, 2023 levETIRAcetam 750 mg tablet Commonly known as: KEPPRA Take 1 tablet by mouth two times a day. metFORMIN 1,000 mg tablet Commonly known as: GLUCOPHAGE Take 1 tablet by mouth two times a day with meals. polyvinyl alcohol 1.4 % ophthalmic solution Commonly known as: LIQUIFILM TEARS Use 1 Drop in both eyes as needed (both eyes). PRED FORTE 1 % ophthalmic suspension Generic drug: prednisoLONE acetate umeclidinium-vilantero l 62.5-25 mcg/actuation inhaler Commonly known as: ANORO ELLIPTA Inhale 1 Inhalation as instructed once daily. Hospital Course: Ana Lopes is a 78 year old female presented with past medical history of Type II DM, sick sinus syndrome s/p pacemaker, HTN, HFpEF, HLD, seizure disorder, MARY, morbid obesity with hypoventilation syndrome, COPD, interstitial pulmonary disease, lymphedema, and RAMON who was admitted to [facility] for SAQIB. Patient was treated with Rocephin for UTI, therapy was altered based on culture data. Patient condition improved and she returned to baseline. She was able to be discharged back to SNF in stable condition with plan for outpatient follow-up with PCP. Outpatient Follow Up Issues: - Follow-up with Antonio Vaughn DO in 7 to 14 days [place] FOR FOLLOW UP: -Follow-up on urine culture sensi (more content not included)... Normal [facility] CNDS Normal [facility] Basic metabolic 2000 panelon 12-28-2023 Anion gap [Moles/Vol] 10 mmol/L Normal 8-15 [facility] Comment on above: Order Comment: Speci men Type: BLOOD SPECIMENOrdering Facility: [facility] Address: [address] [place] [address] [place] [address] Performed By: #### 2 4321-2 ####[facility]ATORYCLIA [id number] [address] Order Comment: Speci men Type: BLOOD SPECIMENOrdering Facility: [facility] Address: [address] [place] [address] Performed By: #### 2 4321-2 ####[facility]ORATORYCLIA [id number] [address] STATES OF [facility] Calcium [Mass/Vol] 8.3 mg/dL Low 8.5-10.2 [facility] Comment on above: Order Comment: Speci men Type: BLOOD SPECIMENOrdering Facility: [facility] Address: [address] [place] [address] Performed By: #### 2 4321-2 ####[facility]ORATORYCLIA [id number] [address] Order Comment: Speci men Type: BLOOD SPECIMENOrdering Facility: [facility] Address: [address] [place] [address] Performed By: #### 2 4321-2 ####[facility]ORATORYCLIA [id number] [place] [address] [place] Chloride [Moles/Vol] 98 mmol/L Normal 98-107 [facility] Comment on above: Order Comment: Speci men Type: BLOOD SPECIMENOrdering Facility: [facility] Address: [address] [place] [address] Performed By: #### 2 4321-2 ####[facility]ATORYCLIA [id number] [address] Order Comment: Speci men Type: BLOOD SPECIMENOrdering Facility: [facility] Address: [address] [place] [address] Performed By: #### 2 4321-2 ####[facility]ORATORYCLIA [id number] [address] [place] CO2 [Moles/Vol] 33 mmol/L High 22-30 [facility] Comment on above: Order Comment: Speci men Type: BLOOD SPECIMENOrdering Facility: [facility] Address: [address] [place] [address] Performed By: #### 2 4321-2 ####[facility]ATORYCLIA [id number] [address] Order Comment: Speci men Type: BLOOD SPECIMENOrdering Facility: [facility] Address: [address] [place] [address] Performed By: #### 2 4321-2 ####[facility]ATORYCLIA [id number] [address] Creatinine [Mass/Vol] 0.89 mg/dL Normal 0.58-0.96 [facility] Comment on above: Order Comment: Speci men Type: BLOOD SPECIMENOrdering Facility: [facility] Address: [address] [place] [address] Performed By: #### 2 4321-2 ####[facility]PITALIA [id number] [address] Order Comment: Speci men Type: BLOOD SPECIMENOrdering Facility: [facility] Address: [address] [place] [address] Performed By: #### 2 4321-2 ####[facility]PITALIA [id number] [address] Creatinine and Glomerular filtration rate.predicted panel (S/P/Bld) 67 mL/min/1.73m??? Normal >=60 [facility] Comment on above: Order Comment: Speci men Type: BLOOD SPECIMENOrdering Facility: [facility] Address: [address] [place] [address] Result Comment: Whitney mated Glomerular Filtration Rate (eGFR) is calculated using the 2020 CKD-EPI creatinine equation. This equation utilizes serum creatinine, sex, and age as parameters. The creatinine assay has traceable calibration to isotope dilution-mass spectrometry. Refer to KDIGO guidelines for clinical interpretation. In patients with unstable renal function, e.g. those with acute kidney injury, the eGFR may not accurately reflect actual GFR. Performed By: #### 2 4321-2 ####[facility]ITALIA [id number] [address] Order Comment: Ashu garcia Type: BLOOD SPECIMENOrdering Facility: [facility] Address: [address] [place] [address] Result Comment: Whitney mated Glomerular Filtration Rate (eGFR) is calculated using the 2020 CKD-EPI creatinine equation. This equation utilizes serum creatinine, sex, and age as parameters. The creatinine assay has traceable calibration to isotope dilution-mass spectrometry. Refer to KDIGO guidelines for clinical interpretation. In patients with unstable renal function, e.g. those with acute kidney injury, the eGFR may not accurately reflect actual GFR. Performed By: #### 2 4321-2 ####[facility] [id number] [address] STATES [facility] Glucose [Mass/Vol] 88 mg/dL Normal 74-99 [facility] Comment on above: Order Comment: Ashu garcia Type: BLOOD SPECIMENOrdering Facility: [facility] Address: [address] [place] [address] Result Comment: The [place] [employer] (ADA) provides guidance for cutoff values for fasting glucose and random glucose. The ADA defines fasting as no caloric intake for at least 8 hours. Fasting plasma glucose results between 100 to 125 mg/dL indicate increased risk for diabetes (prediabetes). Fasting plasma glucose results greater than or equal to 126 mg/dL meet the criteria for diagnosis of diabetes. In the absence of unequivocal hyperglycemia, results should be confirmed by repeat testing. In a patient with classic symptoms of hyperglycemia or hyperglycemic crisis, random plasma glucose results greater than or equal to 200 mg/dL meet the criteria for diagnosis of diabetes. Reference: Standards of Medical Care in Diabetes 2016, [place] [employer]. Diabetes Care. 2016.39(Suppl 1). Performed By: #### 2 4321-2 ####[facility]ORATORYIA [id number] [address] Order Comment: Ashu garcia Type: BLOOD SPECIMENOrdering Facility: [facility] Address: [address] [place] [address] Result Comment: The [place] Diabetes [employer] (ADA) provides guidance for cutoff values for fasting glucose and random glucose. The ADA defines fasting as no caloric intake for at least 8 hours. Fasting plasma glucose results between 100 to 125 mg/dL indicate increased risk for diabetes (prediabetes).Fasting plasma glucose results greater than or equal to 126 mg/dL meet the criteria for diagnosis of diabetes. In the absence of unequivocal hyperglycemia, results should be confirmed by repeat testing. In a patient with classic symptoms of hyperglycemia or hyperglycemic crisis, random plasma glucose results greater than or equal to 200 mg/dL meet the criteria for diagnosis of diabetes.Reference: Standards of Medical Care in Diabetes 2016, [place] [employer]. Diabetes Care. 2016.39(Suppl 1). Performed By: #### 2 4321-2 ####[facility]ORATORYCLIA [id number] [address] Potassium [Moles/Vol] 3.5 mmol/L Low 3.7-5.1 [facility] Comment on above: Order Comment: Speci men Type: BLOOD SPECIMENOrdering Facility: [facility] Address: [address] [place] [address] Performed By: #### 2 1-2 ####[facility]ORATORYCLIA [id number] [address] Order Comment: Speci men Type: BLOOD SPECIMENOrdering Facility: [facility] Address: [address] [place] [address] Performed By: #### 2 1-2 ####[facility]ATORYCLIA [id number] [address] Sodium [Moles/Vol] 141 mmol/L Normal 136-144 [facility] Comment on above: Order Comment: Speci men Type: BLOOD SPECIMENOrdering Facility: [facility] Address: [address] [place] [address] Performed By: #### 2 1-2 ####[facility]ATORYCLIA [id number] [address] Order Comment: Speci men Type: BLOOD SPECIMENOrdering Facility: [facility] Address: [address] [place] [address] Performed By: #### 2 4321-2 ####[facility]ATORYCLIA [id number] [address] Urea nitrogen [Mass/Vol] 13 mg/dL Normal 7-21 [facility] Comment on above: Order Comment: Speci men Type: BLOOD SPECIMENOrdering Facility: [facility] Address: [address] [place] [address] Performed By: #### 2 4321-2 ####[facility]ORATORYCLIA [id number] [address] Order Comment: Speci men Type: BLOOD SPECIMENOrdering Facility: [facility] Address: [address] [place] [address] Performed By: #### 2 4321-2 ####[facility]ORATORYCLIA [id number] [address] CBC panel Auto (Bld)on 12-27 Erythrocyte distribution width (RBC) [Ratio] 14.0 % Normal 11.5-15.0 [facility] Comment on above: Order Comment: Speci men Type: BLOOD SPECIMENOrdering Facility: [facility] Address: [address] [place] [address] Performed By: #### 5 8410-2 ####[facility]ATORYCLIA [id number] [address] Order Comment: Speci men Type: BLOOD SPECIMENOrdering Facility: [facility] Address: [address] [place] [address] Performed By: #### 5 8410-2 ####[facility]ORATORYCLIA [id number] [address] Hematocrit (Bld) [Volume fraction] 35.2 % Low 36.0-46.0 [facility] Comment on above: Order Comment: Speci men Type: BLOOD SPECIMENOrdering Facility: [facility] Address: [address] [place] [address] Performed By: #### 5 8410-2 ####[facility]ORATORYCLIA [id number] [address] Order Comment: Speci men Type: BLOOD SPECIMENOrdering Facility: [facility] Address: [address] [place] [address] Performed By: #### 5 8410-2 ####[facility]ATORYCLIA [id number] [address] Hemoglobin (Bld) [Mass/Vol] 11.0 g/dL Low 11.5-15.5 [facility] Comment on above: Order Comment: Speci men Type: BLOOD SPECIMENOrdering Facility: [facility] Address: [address] [place] [address] Performed By: #### 5 8410-2 ####[facility]ATORYCLIA [id number] [address] Order Comment: Speci men Type: BLOOD SPECIMENOrdering Facility: [facility] Address: [address] [place] [address] Performed By: #### 5 8410-2 ####[facility]ATORYCLIA [id number] [address] MCH (RBC) [Entitic mass] 30.3 pg Normal 26.0-34.0 [facility] Comment on above: Order Comment: Speci men Type: BLOOD SPECIMENOrdering Facility: [facility] Address: [address] [place] [address] Performed By: #### 5 8410-2 ####[facility]ATORYCLIA [id number] [address] Order Comment: Speci men Type: BLOOD SPECIMENOrdering Facility: [facility] Address: [address] [place] [address] Performed By: #### 5 8410-2 ####[facility]ATORYCLIA [id number] [address] MCHC (RBC) [Mass/Vol] 31.3 g/dL Normal 30.5-36.0 [facility] Comment on above: Order Comment: Speci men Type: BLOOD SPECIMENOrdering Facility: [facility] Address: [address] [place] [address] Performed By: #### 5 8410-2 ####[facility]ATORYCLIA [id number] [address] Order Comment: Speci men Type: BLOOD SPECIMENOrdering Facility: [facility] Address: [address] [place] [address] Performed By: #### 5 8410-2 ####[facility]ATORYCLIA [id number] [address] MCV (RBC) [Entitic vol] 97.0 fL Normal 80.0-100.0 [facility] Comment on above: Order Comment: Speci men Type: BLOOD SPECIMENOrdering Facility: [facility] Address: [address] [place] [address] Performed By: #### 5 8410-2 ####[facility]ATORYCLIA [id number] [address] Order Comment: Speci men Type: BLOOD SPECIMENOrdering Facility: [facility] Address: [address] [place] [address] Performed By: #### 5 8410-2 ####[facility]ATORYCLIA [id number] [address] Nucleated RBC (Bld) [#/Vol] 10*3/uL Normal <0.01 [facility] Comment on above: Order Comment: Speci men Type: BLOOD SPECIMENOrdering Facility: [facility] Address: [address] [place] [address] Performed By: #### 5 8410-2 ####[facility]ATORYCLIA [id number] [address] Order Comment: Speci men Type: BLOOD SPECIMENOrdering Facility: [facility] Address: [address] [place] [address] Performed By: #### 5 8410-2 ####[facility]ATORYCLIA [id number] [address] Platelet mean volume (Bld) [Entitic vol] 9.6 fL Normal 9.0-12.7 [facility] Comment on above: Order Comment: Speci men Type: BLOOD SPECIMENOrdering Facility: [facility] Address: [address] [place] [address] Performed By: #### 5 8410-2 ####[facility]ORATORYCLIA [id number] [address] Order Comment: Speci men Type: BLOOD SPECIMENOrdering Facility: [facility] Address: [address] [place] [address] Performed By: #### 5 8410-2 ####[facility]ORYCLIA [id number] [address] Platelets (Bld) [#/Vol] 166 10*3/uL Normal 150-400 [facility] Comment on above: Order Comment: Speci men Type: BLOOD SPECIMENOrdering Facility: [facility] Address: [address] [place] [address] Performed By: #### 5 8410-2 ####[facility]ORYCLIA [id number] [address] Order Comment: Speci men Type: BLOOD SPECIMENOrdering Facility: [facility] Address: [address] [place] [address] Performed By: #### 5 8410-2 ####[facility]ORYCLIA [id number] [address] RBC (Bld) [#/Vol] 3.63 10*6/uL Low 3.90-5.20 [facility] Comment on above: Order Comment: Speci men Type: BLOOD SPECIMENOrdering Facility: [facility] Address: [address] [place] [address] Performed By: #### 5 8410-2 ####[facility]ATORYCLIA [id number] [address] Order Comment: Speci men Type: BLOOD SPECIMENOrdering Facility: [facility] Address: [address] [place], [place] [address] Performed By: #### 5 8410-2 ####[facility]ATORYCLIA [id number] [address] WBC (Bld) [#/Vol] 9.18 10*3/uL Normal 3.70-11.00 [facility] Comment on above: Order Comment: Speci men Type: BLOOD SPECIMENOrdering Facility: [facility] Address: [address] [place] [address] Performed By: #### 5 8410-2 ####[facility]ORYCLIA [id number] [address] Order Comment: Speci men Type: BLOOD SPECIMENOrdering Facility: [facility] Address: [address] [place] [address] Performed By: #### 5 8410-2 ####[facility]ATORYCLIA [id number] [place] [id number] [facility] ED NOTEon 12-28-2023 ED NOTE HNO ID: [id number] Author: LANNY BEASLEY, BLANCA Service: Emergency Medicine Author Type: Registered Nurse Type: ED Notes Filed: 12/28/2023 02:34 Note Text: Pt report called to [id number]. Pt report given to Leeanne RIOS Normal [facility] ED NOTE HNO ID: [id number] Author: JASPREET FIELDS CT Service: ? Author Type: Registered Nurse Type: ED Notes Filed: 12/28/2023 02:34 Note Text: Up w/ jaspreet Normal [facility] ED NOTE HNO ID: [id number] Author: LANNY BEASLEY, BLANCA Service: Emergency Medicine Author Type: Registered Nurse Type: ED Notes Filed: 12/28/2023 00:37 Note Text: Admitting Resident at bedside. Made aware pt BP has been reading soft with SBPs in 90s and 100s and DBPs reading in 30s and 40s. No further orders at this time. Normal [facility] ED NOTE Normal [facility] XR CHEST 1V FRONTALon 2023 XR CHEST 1V FRONTAL * * *Final Report* * * DATE OF EXAM: Dec 28 2023 1:41AM AKX [id number] - XR CHEST 1V FRONTAL / PROCEDURE REASON: Wheezing * * * * Physician Interpretation * * * * EXAMINATION: CHEST RADIOGRAPH (SINGLE VIEW AP OR PA) CLINICAL HISTORY: Wheezing, Other, crackles in lung bases B/L after fluid administration MQ: XC1_5 Comparison: 12/08/2023. RESULT: Lines, tubes, and devices: Left-sided pacemaker. Lungs and pleura: Prominence of interstitial markings. Cardiomediastinal silhouette: Normal cardiomediastinal silhouette. IMPRESSION: Chronic lung disease. Director Patient: PSCRhona Transcribe Date/Time: Dec 28 2023 2:01A Dictated by : RACHANA TUTTLE MD This examination was interpreted and the report reviewed and electronically signed by: RACHANA TUTTLE MD on Dec 28 2023 2:03AM EST [id number] Normal [facility] XR CHEST 1V FRONTAL Normal [facility] ALLIED HEALTHon 12-27-2023 ALLIED HEALTH HNO ID: [id number] Author: BETZAIDA MICHAELS RT(R) Service: Radiology Author Type: Battery Tester Field Type: [employer] [facility] Filed: 12/27/2023 21:50 Note Text: Radiology Service Progress Note DATE OF SERVICE: December 27, 2023 TIME: 9:49 PM PATIENT IDENTITY VERIFICATION COMPLETED USING TWO (2) STANDARD IDENTIFIERS: Name and Date of confirmed by patient verbally. FALL SCREENING: Has the patient had 2 falls in the last year or 1 fall with injury or currently using an Ambulatory Assistive Device (Walker, Cane, Wheelchair, Crutches, etc.)? Emergency Room Patient: Screened in ED PATIENT GENDER DATA: Female. status: : No status: NO. PATIENT RELEVANT IMPLANT DATA REVIEWED: Not Applicable PATIENT PRESENTS WITH AN IMPLANTABLE OR ATTACHED MARGARINE CHURN OPERATOR: No ALLERGIES: Reviewed and unchanged CONTRAST ALLERGY: NO. EXAM: CT -CONTRAST INDUCED NEPHROPATHY RISK FACTORS: Not applicable CREATININE: Creatinine Date Value Ref Range Status 12/27/2023 1.08 (H) 0.58 - 0.96 mg/dL Final 12/11/2023 0.59 0.58 - 0.96 mg/dL Final 12/10/2023 0.57 (L) 0.58 - 0.96 mg/dL Final Estimated Glomerular Filtration Rate Date Value Ref Range Status 12/27/2023 53 (L) >=60 mL/min/1.73m? Final Comment: Estimated Glomerular Filtration Rate (eGFR) is calculated using the 2020 CKD-EPI creatinine equation. This equation utilizes serum creatinine, sex, and age as parameters. The creatinine assay has traceable calibration to isotope dilution-mass spectrometry. Refer to KDIGO guidelines for clinical interpretation. In patients with unstable renal function, e.g. those with acute kidney injury, the eGFR may not accurately reflect actual GFR. P.O.C.T. RESULTS: POC done: Yes, See Lab Tab December 27, 2023 TREATMENT: N/A and No Hydration needed. PERIPHERAL IV DATA: Inpatient - refer to [facility] documentation RADIOLOGY DEPARTMENT: CT; Exam(s) Completed: Abdomen/Pelvis SIGNATURE: RT Susanne(R) PATIENT NAME: Ana Lopes DATE: December 27, 2023 TIME: 9:49 PM Normal [facility] CBC W Auto Differential pane l (Bld)on 12-27-2023 Basophils (Bld) [#/Vol] 0.04 10*3/uL Normal <0.11 [facility] Comment on above: Order Comment: Speci men Type: BLOOD SPECIMENOrdering Facility: [facility] Address: [address] [place] [address] Performed By: #### 5 7021-8 ####[facility]ORATORYCLIA [id number] [place] [address] [place] Basophils/100 WBC (Bld) 0.4 % Normal A [facility] Comment on above: Order Comment: Speci men Type: BLOOD SPECIMENOrdering Facility: [facility] Address: [address] [place] [address] Performed By: #### 5 7021-8 ####[facility]ATORYCLIA [id number] [place] [address] [place] Differential cell count method Nom (Bld) Auto Normal [facility] Comment on above: Order Comment: Speci men Type: BLOOD SPECIMENOrdering Facility: [facility] Address: [address] [place] [address] Performed By: #### 5 7021-8 ####[facility]ORYCLIA [id number] [address] [place] Eosinophils (Bld) [#/Vol] 0.65 10*3/uL High <0.46 [facility] Comment on above: Order Comment: Speci men Type: BLOOD SPECIMENOrdering Facility: [facility] Address: [address] [place] [address] Performed By: #### 5 7021-8 ####[facility]ORYCLIA [id number] [address] [place] Eosinophils/100 WBC (Bld) 7.0 % Normal [facility] Comment on above: Order Comment: Speci men Type: BLOOD SPECIMENOrdering Facility: [facility] Address: [address] [place] [address] Performed By: #### 5 7021-8 ####[facility]ORYCLIA [id number] [address] Erythrocyte distribution width (RBC) [Ratio] 13.9 % Normal 11.5-15.0 [facility] Comment on above: Order Comment: Speci men Type: BLOOD SPECIMENOrdering Facility: [facility] Address: [address] [place] [address] Performed By: #### 5 7021-8 ####[facility]ORATORYCLIA [id number] [address] [place] Hematocrit (Bld) [Volume fraction] 37.6 % Normal 36.0-46.0 [facility] Comment on above: Order Comment: Speci men Type: BLOOD SPECIMENOrdering Facility: [facility] Address: [address] [place] [address] Performed By: #### 5 7021-8 ####[facility]ORATORYCLIA [id number] [address] Hemoglobin (Bld) [Mass/Vol] 12.0 g/dL Normal 11.5-15.5 [facility] Comment on above: Order Comment: Speci men Type: BLOOD SPECIMENOrdering Facility: [facility] Address: [address] [place] [address] Performed By: #### 5 7021-8 ####[facility] LABORATORYCLIA [id number] [address] Immature granulocytes (Bld) [#/Vol] 10*3/uL Normal <0.10 [facility] Comment on above: Order Comment: Speci men Type: BLOOD SPECIMENOrdering Facility: [facility] Address: [address] [place] [address] Performed By: #### 5 7021-8 ####[facility]ATORYCLIA [id number] [address] Immature granulocytes/100 WBC (Bld) 0.2 % Normal [facility] Comment on above: Order Comment: Speci men Type: BLOOD SPECIMENOrdering Facility: [facility] Address: [address] [place] [address] Performed By: #### 5 7021-8 ####[facility]ATORYCLIA [id number] [address] STATES [facility] Lymphocytes (Bld) [#/Vol] 2.86 10*3/uL Normal 1.00-4.00 [facility] Comment on above: Order Comment: Speci men Type: BLOOD SPECIMENOrdering Facility: [facility] Address: [address] [place] [address] Performed By: #### 5 7021-8 ####[facility]ATORYCLIA [id number] [address] Lymphocytes/100 WBC (Bld) 30.6 % Normal [facility] Comment on above: Order Comment: Speci men Type: BLOOD SPECIMENOrdering Facility: [facility] Address: [address] [place] [address] Performed By: #### 5 7021-8 ####[facility]ATORYCLIA [id number] [place] [address] [place] MCH (RBC) [Entitic mass] 30.7 pg Normal 26.0-34.0 [facility] Comment on above: Order Comment: Speci men Type: BLOOD SPECIMENOrdering Facility: [facility] Address: [address] [place] [address] Performed By: #### 5 7021-8 ####[facility]ATORYCLIA [id number] [address] [place] MCHC (RBC) [Mass/Vol] 31.9 g/dL Normal 30.5-36.0 [facility] Comment on above: Order Comment: Speci men Type: BLOOD SPECIMENOrdering Facility: [facility] Address: [address] [place] [address] Performed By: #### 5 7021-8 ####[facility]ATORYCLIA [id number] [address] [place] MCV (RBC) [Entitic vol] 96.2 fL Normal 80.0-100.0 [facility] Comment on above: Order Comment: Speci men Type: BLOOD SPECIMENOrdering Facility: [facility] Address: [address] [place] [address] Performed By: #### 5 7021-8 ####[facility]ATORYCLIA [id number] [address] [place] Monocytes (Bld) [#/Vol] 0.80 10*3/uL Normal <0.87 [facility] Comment on above: Order Comment: Speci men Type: BLOOD SPECIMENOrdering Facility: [facility] Address: [address] [place] [address] Performed By: #### 5 7021-8 ####[facility]ATORYCLIA [id number] [address] Monocytes/100 WBC (Bld) 8.6 % Normal [facility] Comment on above: Order Comment: Speci men Type: BLOOD SPECIMENOrdering Facility: [facility] Address: [address] [place] [address] Performed By: #### 5 7021-8 ####[facility]ATORYCLIA [id number] [place] [address] [place] Neutrophils (Bld) [#/Vol] 4.97 10*3/uL Normal 1.45-7.50 [facility] Comment on above: Order Comment: Speci men Type: BLOOD SPECIMENOrdering Facility: [facility] Address: [address] [place] [address] Performed By: #### 5 7021-8 ####[facility]ATORYCLIA [id number] [place] [address] [place] Neutrophils/100 WBC (Bld) 53.2 % Normal [facility] Comment on above: Order Comment: Speci men Type: BLOOD SPECIMENOrdering Facility: [facility] Address: [address] [place] [address] Performed By: #### 5 7021-8 ####[facility]ATORYCLIA [id number] [place] [address] [place] Nucleated RBC (Bld) [#/Vol] 10*3/uL Normal <0.01 [facility] Comment on above: Order Comment: Speci men Type: BLOOD SPECIMENOrdering Facility: [facility] Address: [address] [place] [address] Performed By: #### 5 7021-8 ####[facility]ATORYCLIA [id number] [address] [place] Nucleated RBC/100 WBC (Bld) [Ratio] 0.0 /100 WBC Normal [facility] Comment on above: Order Comment: Speci men Type: BLOOD SPECIMENOrdering Facility: [facility] Address: [address] [place] [address] Performed By: #### 5 7021-8 ####[facility]ATORYCLIA [id number] [place] [address] [place] Platelet mean volume (Bld) [Entitic vol] 9.7 fL Normal 9.0-12.7 [facility] Comment on above: Order Comment: Speci men Type: BLOOD SPECIMENOrdering Facility: [facility] Address: [address] [place] [address] Performed By: #### 5 7021-8 ####[facility]ATORYCLIA [id number] [place] [address] [place] Platelets (Bld) [#/Vol] 190 10*3/uL Normal 150-400 [facility] Comment on above: Order Comment: Speci men Type: BLOOD SPECIMENOrdering Facility: [facility] Address: [address] [place] [address] Performed By: #### 5 7021-8 ####[facility]ATORYCLIA [id number] [place] [address] [place] RBC (Bld) [#/Vol] 3.91 10*6/uL Normal 3.90-5.20 [facility] Comment on above: Order Comment: Speci men Type: BLOOD SPECIMENOrdering Facility: [facility] Address: [address] [place] [address] Performed By: #### 5 7021-8 ####[facility]ATORYCLIA [id number] [address] OF [facility] WBC (Bld) [#/Vol] 9.34 10*3/uL Normal 3.70-11.00 [facility] Comment on above: Order Comment: Speci men Type: BLOOD SPECIMENOrdering Facility: [facility] Address: [address] [place] [address] Performed By: #### 5 7021-8 ####[facility]ORATORYCLIA [id number] [address] OF [facility] CT ABD/PEL W IVCONon 024 CT ABD/PEL W IVCON * * *Final Report* * * DATE OF EXAM: Dec 27 2023 9:53PM [facility] 0530 - CT ABD/PEL W IVCON / PROCEDURE REASON: Abdominal abscess/infection suspected * * * * Physician Interpretation * * * * EXAMINATION: CT ABDOMEN AND PELVIS WITH IV CONTRAST CLINICAL HISTORY: Diarrhea TECHNIQUE: CT of the abdomen and pelvis was performed using standard technique, scanning from just above the dome of the diaphragm to the symphysis pubis. MQ: CTAP_3 Contrast: IV: 100 ml of Omnipaque 350 : ml of CT Radiation dose: Integrated Dose-length product (DLP) for this visit = 1314 mGy*cm. CT Dose Reduction Employed: Automated exposure control(AEC) and iterative recon COMPARISON: None. RESULT: Lung bases: Fibrotic-type changes are seen in the visualized lung bases. Liver: Normal liver parenchyma is noted. No focal hepatic mass is seen. The portal vein and hepatic veins are within normal limits. Bile ducts: No intra or extrahepatic bile duct dilatation is noted. Gallbladder: Surgically absent. Spleen: The spleen is of normal size and enhancement Pancreas: The pancreatic parenchyma is of normal enhancement without a discrete mass identified. No peripancreatic fluid or fat stranding is appreciated. The pancreatic duct is of normal caliber. Adrenal glands :The adrenal glands are normal in morphology. No discrete nodule is identified. Kidneys: Normal enhancement of the renal parenchyma is noted. No solid mass is identified. No discrete stone is identified. There is no evidence of hydronephrosis or hydroureter. Abdominal aorta: The abdominal aorta is of normal caliber without evidence of dissection. A normal-appearing aortic bifurcation is present. Lymphadenopathy: There is no intra-abdominal, retroperitoneal, or inguinal lymphadenopathy. Ascites: No fluid collection is seen in the abdomen or pelvis. Urinary bladder: The urinary bladder is unremarkable without an intraluminal filling defect. No perivesical fat stranding is appreciated. Bowel: No dilated loops of small bowel are seen to suggest bowel obstruction. Appendix: The appendix is of normal caliber without periappendiceal inflammatory changes. Osseous structures: No osteolytic or osteoblastic bone lesion is identified. No acute osseous abnormality is seen. IMPRESSION: 1. No evidence of significant intra-abdominal or intrapelvic pathology. Director [facility] Transcribe Date/Time: Dec 27 2023 10:01P Dictated by : CLEMENTINA LUJAN MD This examination was interpreted and the report reviewed and electronically signed by: CLEMENTINA LUJAN MD on Dec 27 2023 10:23PM EST [id number] Normal [facility] Comprehensive metabolic 2000 panelon 12-27-2023 Albumin [Mass/Vol] 3.5 g/dL Low 3.9-4.9 [facility] Comment on above: Order Comment: Speci men Type: BLOOD SPECIMENOrdering Facility: [facility] Address: [address] [place] [address] Performed By: #### 2 4323-8, 3040-3 ####[facility]ATORYCLIA [id number] [place], [place] [id number] [place] [address] [place] ALP [Catalytic activity/Vol] 87 U/L Normal 34-123 [facility] Comment on above: Order Comment: Speci men Type: BLOOD SPECIMENOrdering Facility: [facility] Address: [address] [place] [address] Performed By: #### 2 4323-8, 3040-3 ####[facility]ORATORYCLIA [id number] [address] STATES OF [facility] ALT With P-5'-P [Catalytic activity/Vol] 9 U/L Normal 7-38 [facility] Comment on above: Order Comment: Speci men Type: BLOOD SPECIMENOrdering Facility: [facility] Address: [address] [place] [address] Performed By: #### 2 4323-8, 0-3 ####[facility]ORATORYCLIA [id number] [address] [place] Anion gap [Moles/Vol] 8 mmol/L Normal 8-15 [facility] Comment on above: Order Comment: Speci men Type: BLOOD SPECIMENOrdering Facility: [facility] Address: [address] [place] [address] Performed By: #### 2 4323-8, 0-3 ####[facility]ATORYCLIA [id number] [address] [place] AST With P-5'-P [Catalytic activity/Vol] 16 U/L Normal 13-35 [facility] Comment on above: Order Comment: Speci men Type: BLOOD SPECIMENOrdering Facility: [facility] Address: [address] [place] [address] Performed By: #### 2 4323-8, 3040-3 ####[facility]ATORYCLIA [id number] [address] [place] Bilirubin [Mass/Vol] 0.4 mg/dL Normal 0.2-1.3 [facility] Comment on above: Order Comment: Speci men Type: BLOOD SPECIMENOrdering Facility: [facility] Address: [address] [place] [address] Performed By: #### 2 4323-8, 0-3 ####[facility] LABORATORYCLIA [id number] [place] [address] [place] Calcium [Mass/Vol] 9.0 mg/dL Normal 8.5-10.2 [facility] Comment on above: Order Comment: Speci men Type: BLOOD SPECIMENOrdering Facility: [facility] Address: [address] [place] [address] Performed By: #### 2 4323-8, 3039-3 ####[facility]ORATORYCLIA [id number] [place] [address] [place] Chloride [Moles/Vol] 94 mmol/L Low 98-107 [facility] Comment on above: Order Comment: Speci men Type: BLOOD SPECIMENOrdering Facility: [facility] Address: [address] [place] [address] Performed By: #### 2 4323-8, 3039-3 ####[facility]ATORYCLIA [id number] [place] [address] [place] CO2 [Moles/Vol] 38 mmol/L High 22-30 [facility] Comment on above: Order Comment: Speci men Type: BLOOD SPECIMENOrdering Facility: [facility] Address: [address] [place] [address] Performed By: #### 2 4323-8, 0-3 ####[facility] LABORATORYCLIA [id number] [place] [address] [place] Creatinine [Mass/Vol] 1.08 mg/dL High 0.58-0.96 [facility] Comment on above: Order Comment: Speci men Type: BLOOD SPECIMENOrdering Facility: [facility] Address: [address] [place] [address] Performed By: #### 2 4323-8, 0-3 ####[facility] HOSPITALIA [id number] [place] [address] [place] Creatinine and Glomerular filtration rate.predicted panel (S/P/Bld) 53 mL/min/1.73m??? Low >=60 [facility] Comment on above: Order Comment: Ashu garcia Type: BLOOD SPECIMENOrdering Facility: [facility] Address: [address] [place] [address] Result Comment: Whitney mated Glomerular Filtration Rate (eGFR) is calculated using the 2020 CKD-EPI creatinine equation. This equation utilizes serum creatinine, sex, and age as parameters. The creatinine assay has traceable calibration to isotope dilution-mass spectrometry. Refer to KDIGO guidelines for clinical interpretation. In patients with unstable renal function, e.g. those with acute kidney injury, the eGFR may not accurately reflect actual GFR. Performed By: #### 2 4323-8, 3040-3 ####[facility] HOSPITALIA [id number] [place] [id number] [place] Glucose [Mass/Vol] 102 mg/dL High 74-99 [facility] Comment on above: Order Comment: Ashu garcia Type: BLOOD SPECIMENOrdering Facility: [facility] Address: [address] [place] [address] Result Comment: The [place] [employer] (ADA) provides guidance for cutoff values for fasting glucose and random glucose. The ADA defines fasting as no caloric intake for at least 8 hours. Fasting plasma glucose results between 100 to 125 mg/dL indicate increased risk for diabetes (prediabetes). Fasting plasma glucose results greater than or equal to 126 mg/dL meet the criteria for diagnosis of diabetes. In the absence of unequivocal hyperglycemia, results should be confirmed by repeat testing. In a patient with classic symptoms of hyperglycemia or hyperglycemic crisis, random plasma glucose results greater than or equal to 200 mg/dL meet the criteria for diagnosis of diabetes. Reference: Standards of Medical Care in Diabetes 2016, [place] [employer]. Diabetes Care. 2016.39(Suppl 1). Performed By: #### 2 4323-8, 3040-3 ####[facility] HOSPITALIA [id number] [place] [address] [place] Potassium [Moles/Vol] 3.7 mmol/L Normal 3.7-5.1 [facility] Comment on above: Order Comment: Speci men Type: BLOOD SPECIMENOrdering Facility: [facility] Address: [address] [place] [address] Performed By: #### 2 4323-8, 3040-3 ####[facility]ORATORYCLIA [id number] [place] [address] [place] Protein [Mass/Vol] 7.0 g/dL Normal 6.3-8.0 [facility] Comment on above: Order Comment: Speci men Type: BLOOD SPECIMENOrdering Facility: [facility] Address: [address] [place] [address] Performed By: #### 2 4323-8, 3040-3 ####[facility]ORATORYCLIA [id number] [address] STATES [facility] Sodium [Moles/Vol] 140 mmol/L Normal 136-144 [facility] Comment on above: Order Comment: Speci men Type: BLOOD SPECIMENOrdering Facility: [facility] Address: [address] [place] [address] Performed By: #### 2 4323-8, 3040-3 ####[facility]ORATORYCLIA [id number] [address] STATES OF [facility] Urea nitrogen [Mass/Vol] 10 mg/dL Normal 7-21 [facility] Comment on above: Order Comment: Speci men Type: BLOOD SPECIMENOrdering Facility: [facility] Address: [address] [place] [address] Performed By: #### 2 4323-8, 3040-3 ####[facility]ATORYCLIA [id number] [place] [id number] [place] ECG COMPLETEon 12-27-2023 ECG COMPLETE Ventricular Rate : 6 3 BPM Atrial Rate : 63 BPM P-R Interval : 274 ms QRS Duration : 144 ms Q-T Interval : 446 ms QTC Calculation(Bazett) : 456 ms Calculated P [place] : -9 degrees Calculated R [place] : 85 degrees Calculated T [place] : -12 degrees Atrial-sensed ventricular-paced rhythm with prolonged AV conduction ABNORMAL ECG WHEN COMPARED WITH ECG OF 09-Dec-2023 08:15, VENT. RATE HAS DECREASED by 47 bpm Confirmed by DO PELAEZ ROHIT ([id number]) on 12/27/2023 6:19:33 PM NAME : ANA LOPES PID : [id number] : 1945 Gender : Female Race : ORD : [id number] Procedure Date : Dec 27 2023 18:12:54 Edit Date : Dec 27 2023 18:19:35 Diagnosis: Atrial-sensed ventricular-paced rhythm with prolonged AV conduction ABNORMAL ECG WHEN COMPARED WITH ECG OF 09-Dec-2023 08:15, VENT. RATE HAS DECREASED by 47 bpm Confirmed by DO PELAEZ ROHIT ([id number]) on 12/27/2023 6:19:33 PM Test Reason : Arrhythmia Location : 4 : [facility] Overread By : DO PELAEZ ROHIT Edited By : DO PELAEZ ROHIT Referred By : , Acquired by : UMANG PHILLIPS [facility] ED NOTEon 12-27-2023 ED NOTE HNO ID: [id number] Author: LANNY BEASLEY RN Service: Emergency Medicine Author Type: Registered Nurse Type: ED Notes Filed: 12/27/2023 22:08 Note Text: Pt states she can not urinated. Pt bladder scanned. ER Resident made aware Normal [facility] ED NOTE HNO ID: [id number] Author: LANNY BEASLEY RN Service: Emergency Medicine Author Type: Registered Nurse Type: ED Notes Filed: 12/27/2023 20:14 Note Text: ER Resident made aware pt BP is soft. 95/41 (58). No further orders at this time Normal [facility] ED NOTE HNO ID: [id number] Author: LANNY BEASLEY RN Service: Emergency Medicine Author Type: Registered Nurse Type: ED Notes Filed: 12/27/2023 19:12 Note Text: CT notified patient is ready for scans. Normal [facility] ED NOTE HNO ID: [id number] Author: LAKESHIA SHAFFER, Medic Service: ? Author Type: [employer] Field Type: ED Notes Filed: 12/27/2023 16:16 Note Text: Bed: 21-ED Expected date: Expected time: Means of arrival: Comments: Physicians 78yo [place] few wks from [place] Normal [facility] ED PROV NOTEon 12-27-2023 ED PROV NOTE HNO ID: [id number] Author: YARY PELAEZ DO Service: Emergency Medicine Author Type: Physician Type: ED Provider Notes Filed: 12/28/2023 12:33 Note Text: Attending Note I evaluated the patient and personally participated in the clayton components. I agree with the resident's findings and plan as documented and have discussed the case and management of the patient's care with the resident. This is a 78-year-old female who was recently admitted here for pneumonia has been convalescing at an [facility] and started having diarrhea yesterday and vomiting today. She has some lower abdominal pain. No fever or chills. No chest pain or shortness of breath. No black or bloody stools. No other complaints. She is awake alert oriented x 3. Head atraumatic normocephalic. Pharynx patent without stridor. Lungs clear bilaterally. Heart regular rate rhythm no murmurs. Abdomen soft nondistended. There is minimal tenderness in the suprapubic region without peritoneal signs. No palpable masses. Distal pulses intact and equal. No cyanosis of the skin. GCS 15. We are getting blood work and will send the stool for C. difficile. We will also get imaging of the belly. EKG has been ordered. Disposition pending. YARY PELAEZ S 12/28/23 1233 Normal [facility] ED PROV NOTE HNO ID: [id number] Author: YARY PELAEZ DO Service: Emergency Medicine Author Type: Physician Type: ED Provider Notes Filed: 12/28/2023 12:04 Note Text: ED Provider Note Patient Name: Ana Lopes : 1945 SERVICE DATE: 12/27/23 History Patient presents with: Nausea AND Vomiting: Pt recently went to [facility] and having complaints of n/v with diarrhea on and off. Pt stated she told them to stop giving her lactulose. Pt complains of no abdominal pain at this time but did throw up her breakfast today. She was recently admitted with pneumonia and went to rehab. The patient is a 78-year-old female past medical history significant for CHF, lymphedema, morbid obesity who presents with nausea, vomiting, diarrhea. Patient currently on levofloxacin for pneumonia and lactulose for diarrhea. Patient reports she has had 5 episodes of diarrhea in the past 2 days. Describes them as watery without any blood. Admits to right lower quadrant pain. Has had 1 episode of vomiting of about 100 mL without blood. Patient reports she does have an appetite. History provided by: Patient No past medical history on file. No past surgical history on file. No family history on file. Social History Tobacco Use Smoking status: Not on file Smokeless tobacco: Not on file Substance and Sexual Activity Alcohol use: Not on file Drug use: Not on file Sexual activity: Not on file ALLERGIES No Known Allergies Review of Systems Constitutional: Negative for chills, diaphoresis and fatigue. HENT: Negative for congestion, facial swelling and rhinorrhea. Eyes: Negative for discharge, redness and visual disturbance. Respiratory: Negative for cough, choking and wheezing. Cardiovascular: Negative for chest pain, palpitations and leg swelling. Gastrointestinal: Negative for abdominal distention, abdominal pain and nausea. Endocrine: Negative for cold intolerance, heat intolerance and polyuria. Genitourinary: Negative for difficulty urinating, dysuria and flank pain. Musculoskeletal: Negative for back pain, gait problem and joint swelling. Skin: Negative for pallor, rash and wound. Neurological: Negative for dizziness, facial asymmetry and headaches. Hematological: Negative for adenopathy. Psychiatric/Behavioral : Negative for agitation, confusion and hallucinations. Physical Exam Vitals BP Pulse Temp Temp src Resp SpO2 Weight Height 12/27/23 1624 12/27/23 1620 12/27/23 1619 12/27/23 1619 12/27/23 1620 12/27/23 1620 12/27/23 1620 -- 109/63 65 36.6 ?C (97.9 ?F) Oral 18 98 % 103.4 kg (228 lb) Physical Exam Vitals and nursing note reviewed. Constitutional: General: She is not in acute distress. Appearance: Normal appearance. HENT: Head: Normocephalic and atraumatic. Nose: Nose normal. No congestion or rhinorrhea. Mouth/Throat: Mouth: Mucous membranes are moist. Pharynx: No oropharyngeal exudate or posterior oropharyngeal erythema. Eyes: General: No scleral icterus. Right eye: No discharge. Left eye: No discharge. Conjunctiva/sclera: Conjunctivae normal. Cardiovascular: Rate and Rhythm: Normal rate and regular rhythm. Pulses: Normal pulses. Heart sounds: Normal heart sounds. No murmur heard. No friction rub. No gallop. Pulmonary: Effort: Pulmonary effort is normal. No respiratory distress. Breath sounds: Normal breath sounds. No wheezing or rhonchi. Chest: Chest wall: No tenderness. Abdominal: General: There is no distension. Tenderness: There is no abdominal tenderness. There is no right CVA tenderness, left CVA tenderness or guarding. Musculoskeletal: General: No swelling or signs of injury. Cervical back: Normal range of motion. No rigidity. Right lower leg: No edema. Left lower leg: No edema. Skin: General: Skin is warm. Capillary Refill: Capillary refill takes less than 2 seconds. Coloration: Skin is not jaundiced or pale. Findings: No bruising, erythema or rash. Neurological: General: No focal deficit present. Mental Status: She is alert and oriented to person, place, and time. Mental status is at baseline. Motor: No weakness. Psychiatric: Mood and Affect: Mood normal. Behavior: Behavior normal. Thought Content: Thought content normal. Judgment: Judgment normal. Diagnostic Testing ED Labs Ordered and Reviewed - No data to display Ultrasound Guided Peripheral Line Access US IV INSERTION (POC) ED USE ONLY ([place], NO AC) Date/Time: 12/28/2023 12:31 AM Performed by: Merly Gutierrez DO Authorized by: Manas Mcclain MD Indication: Patient requires placement of a peripheral venous catheter for emergent administration of IV fluids and or medications. Several blind peripheral attempts were unsuccessful. Procedure in detail Using the linear probe covered in a sterile sheath, a short inaxis views were obtaed of the: Basilic vein. This vein was completely compressible and was identified as (more content not included)... Normal [facility] HISTORY PHYSICALon HISTORY PHYSICAL HNO ID: [id number] Author: TAMI LONG DO Service: Family Practice Author Type: Resident Type: H&P Filed: 12/28/2023 17:31 Note Text: Attestation signed by Tami Long DO at 12/28/2023 5:31 PM Attending Note I evaluated the patient and performed H and P on morning of 12/28/23 after pt being admitted at midnight and personally participated in the clay[place] components. I agree with the resident's findings and plan as documented and have discussed the case and management of the patient's care with the resident. Plan of care discussed with: Provider, RN, Patient. Concerned about intractable N/V/D Admitted for IVF and close monitoring 24 - 48 hours DSP Signature: Tami Long DO Date: December 28, 2023 Time: 5:31 PM [facility] History and Physical Patient Name: Ana Lopes Date: December 27, 2023 Time: 11:55 PM Primary Care Provider: Antonio Vaughn DO Date of Admission: 12/27/2023 Admitting Facility: [facility] Service: [facility] Family Medicine Inpatient Service Attending: Dr. Tami Long DO Reason For Admission: SAQIB (acute kidney injury) (HCC) Subjective HPI: Ana is a 78 year old female with a pertinent PMH of Type II DM, sick sinus syndrome s/p pacemaker, HTN, HFpEF, HLD, seizure disorder, MARY, morbid obesity with hypoventilation syndrome, COPD, interstitial pulmonary disease, lymphedema, and RAMON who was admitted to [facility] for SAQIB. She states that 2 days ago she had 5 episodes of diarrhea and 1-2 episodes of emesis. She states that today, the nurse at her facility realized her SBP was 98 and had her brought to the ED. The patient denies any fevers or chills. She also denies chest pain, SOB. Her diarrhea has since stopped. However, she has had dysuria that started yesterday. ER course: CMP showed a creatinine of 1.08 (baseline of 0.7), EGFR of 53, and albumin of 3.5 but was otherwise unremarkable. Lipase was normal at 35. CBC was completely unremarkable. UA was positive for UTI with 500 leuk esterase, WBC >25, RBC > 25, and moderate bacteria. Culture is pending. CTAP shows no evidence of significant intra-abdominal or intrapelvic pathology. BP has been soft but improves with adjustment of BP cuff on arm. Review of Systems Constitutional: Negative for chills and fever. Respiratory: Negative for shortness of breath. Cardiovascular: Negative for chest pain. Gastrointestinal: Positive for diarrhea and nausea. Negative for abdominal pain. Genitourinary: Positive for dysuria. Past Medical History::No past medical history on file. Past Surgical History: No past surgical history on file. Past Family History: No family history on file. Past Social History: Home Medications: furosemide (LASIX) 20 mg tabletTake 2 tablets by mouth once daily for 7 days, THEN 1 tablet once daily.Disp: Rfl: levETIRAcetam (KEPPRA) 750 mg tabletTake 1 tablet by mouth two times a day.Disp: Rfl: cetirizine (ZYRTEC) 10 mg tabletTake 1 tablet by mouth once daily.Disp: Rfl: metFORMIN (GLUCOPHAGE) 1,000 mg tabletTake 1 tablet by mouth two times a day with meals.Disp: Rfl: atorvastatin (LIPITOR) 80 mg tabletTake 1 tablet by mouth once daily.Disp: Rfl: polyvinyl alcohol (LIQUIFILM TEARS) 1.4 % ophthalmic solutionUse 1 Drop in both eyes as needed (both eyes).Disp: Rfl: umeclidinium-vilantero l (ANORO ELLIPTA) 62.5-25 mcg/actuation inhalerInhale 1 Inhalation as instructed once daily.Disp: Rfl: sqhijpx-jiscpzdss-wdms min D3 (OYSTER SHELL CALCIUM-VITAMIN D) 500 mg-5 mcg (200 unit) per tabletTake 1 tablet by mouth once daily.Disp: Rfl: aspirin 81 mg chewable tabletTake 1 tablet by mouth once daily.Disp: Rfl: diclofenac (VOLTAREN ARTHRITIS PAIN) 1 % topical gelApply 4 g to affected area four times daily.Disp: Rfl: prednisoLONE acetate (PRED FORTE) 1 % ophthalmic suspensionUse 1 Drop in both eyes three times a day.Disp: Rfl: albuterol HFA (PROVENTIL HFA, VENTOLIN HFA) 90 mcg/actuation inhalerInhale 2 Puffs as instructed every 6 hours as needed for wheezing/shortness of breath.Disp: Rfl: [id number]-[id number]-[id number]-obhdnl-tf osphatid 1.7 mg-400 mcg- 2.4 mcg capTake 1 capsule by mouth once daily.Disp: Rfl: fluticasone (FLONASE ALLERGY RELIEF) 50 mcg/actuation nasal sprayUse 1 [place] in each nostril once daily.Disp: Rfl: Biotin 10,000 mcg capTake 1 capsule by mouth once daily.Disp: Rfl: Inpatient Medications: Current Facility-Administered Medications Medication Dose Route Frequency Provider Last Rate Last Admin iv contrast (radiology procedure) INTRAVENOUS DIRECTED PRN Merly Gutierrez DO NaCl 0.9% iv flush bag 20 mL INTRAVENOUS PRN Yary Pelaez DO Current Outpatient Medications Medication Sig Dispense Refill furosemide (LASIX) 20 mg tablet Take 2 tablets by (more content not included)... Normal [facility] HISTORY PHYSICAL Normal [facility] Lipase SerPl-cCncon 12-27-19 24 Lipase [Catalytic activity/Vol] 35 U/L Normal 16-61 [facility] Comment on above: Order Comment: Speci men Type: BLOOD SPECIMENOrdering Facility: [facility] Address: [address] [place] [address] Performed By: #### 2 4323-8, 3040-3 ####[facility] [id number] [place] [address] [place] Urinalysis complete panel (U )on 12-27-2023 Bacteria LM.HPF (Urine sed) [#/Area] Moderate Abnormal None Seen [facility] Comment on above: Order Comment: Speci men Type: URINE SPECIMEN [facility]ing [facility] Address: [address] [place] [address] Performed By: #### 2 4356-8 #### [facility] CLIA [id number] [address] Bilirubin Ql (U) Negative Normal Negative [facility] Comment on above: Order Comment: Speci men Type: URINE SPECIMEN [facility] Address: [facility] [address] [place] [address] Performed By: #### 2 4356-8 #### [facility] CLIA [id number] [address] OF [place] Clarity (Unsp spec) Dense Turbid Abnormal Clear [facility] Comment on above: Order Comment: Speci men Type: URINE SPECIMEN [facility]ing [facility] Address: [address] [place] [address] Performed By: #### 2 4356-8 #### [facility] CLIA [id number] [address] Color (U) [place] Abnormal yellow [facility] Comment on above: Order Comment: Speci men Type: URINE SPECIMEN [facility]ing [facility] Address: [address] [place] [address] Performed By: #### 2 4356-8 #### [facility] CLIA [id number] [address] Epithelial cells LM.HPF (Urine sed) [#/Area] Many Normal [facility] Comment on above: Order Comment: Speci men Type: URINE SPECIMEN [facility] Address: [address] [place] [address] Performed By: #### 2 4356-8 #### [facility] CLIA [id number] [address] [place] Glucose Test strip (U) [Mass/Vol] Negative Normal Trace, Negative [facility] Comment on above: Order Comment: Speci men Type: URINE SPECIMEN [facility] Address: [address] [place] [address] Performed By: #### 2 4356-8 #### [facility] CLIA [id number] [address] [place] [address] [place] Hemoglobin Ql (U) 2+ Abnormal Negative, Trace [facility] Comment on above: Order Comment: Speci men Type: URINE SPECIMEN [facility] Address: [address] [place] [address] Performed By: #### 2 4356-8 #### [facility] CLIA [id number] [address] OF [facility] Ketones Ql (U) Negative Normal Negative, Trace [facility] Comment on above: Order Comment: Speci men Type: URINE SPECIMEN [facility] Address: [address] [place] [address] Performed By: #### 2 4356-8 #### [facility] CLIA [id number] [address] Leukocyte esterase Test strip Ql (U) 500 [place]/uL Abnormal Negative, 25 [place]/uL [facility] Comment on above: Order Comment: Speci men Type: URINE SPECIMEN [facility] Address: [address] [place] [address] Performed By: #### 2 4356-8 #### [facility] CLIA [id number] [address] Nitrite Ql (U) Negative Normal Negative [facility] Comment on above: Order Comment: Speci men Type: URINE SPECIMEN [facility] Address: [address] [place] [address] Performed By: #### 2 4356-8 #### [facility] CLIA [id number] [address] OF [place] pH (U) 6.0 [pH] Normal 5.0-8.0 [facility] Comment on above: Order Comment: Speci men Type: URINE SPECIMEN [facility] Address: [address] [place] [address] Performed By: #### 2 4356-8 #### [facility] CLIA [id number] [address] [place] Protein (U) [Mass/Vol] 1+ Abnormal Trace , Negative [facility] Comment on above: Order Comment: Speci men Type: URINE SPECIMEN [facility] Address: [address] [place] [address] Performed By: #### 2 4356-8 #### [facility] CLIA [id number] [address] RBC LM.HPF (Urine sed) [#/Area] /[HPF] Abnormal 0-3 /HPF [facility] Comment on above: Order Comment: Speci men Type: URINE SPECIMEN [facility] Address: [address] [place] [address] Performed By: #### 2 4356-8 #### [facility] CLIA [id number] [address] Specific gravity (U) [Rel density] 1.022 Normal 1.005-1.030 [facility] Comment on above: Order Comment: Speci men Type: URINE SPECIMEN [facility] Address: [address] [place] [address] Performed By: #### 2 4356-8 #### [facility] CLIA [id number] [address] Urobilinogen Ql (U) Normal Normal Normal [facility] Comment on above: Order Comment: Speci men Type: URINE SPECIMEN [facility] Address: [address] [place] [address] Performed By: #### 2 4356-8 #### [facility] CLIA [id number] [address] [place] [address] WBC LM.HPF (Urine sed) [#/Area] /[HPF] Abnormal 0-5 /HPF [facility] Comment on above: Order Comment: Speci men Type: URINE SPECIMEN [facility] Address: [address] [place] [address] Performed By: #### 2 4356-8 #### [facility] CLIA [id number] [address] [place] [address] [place] Yeast.budding LM.HPF (Urine sed) [#/Area] Few Abnormal None Seen [facility] Comment on above: Order Comment: Speci men Type: URINE SPECIMEN [facility] Address: [address], [place] [address] Performed By: #### 2 4356-8 #### [facility] CLIA [id number] [address] [place] [address] [place] Urinalysis complete pnl [place] 12-27-2023 Urinalysis complete panel (U) COLOR: [place] CLARITY: Dense Turbid GLUCOSE, URINE: Negative BILIRUBIN, URINE: Negative KETONES, URINE: Negative SPECIFIC GRAVITY, UR: 1.022 HEMOGLOBIN/BLOOD, UR: 2+ PH, URINE: 6.0 PROTEIN, URINE: 1+ UROBILINOGEN: Normal NITRITES: Negative LEUKEST: 500 [place]/uL WBC, URINE: >25 /HPF RBC, URINE: >25 /HPF BACTERIA: Moderate SQUAMOUS EPITHELIAL CELLS: Many BUDDING YEAST (UA): Few ORGANISM ID: 1 >=100,000 CFU/ml Vancomycin resistant Enterocococcus faecalis Cephalosporins, clindamycin, and TMP-SMX are not effective for the treatment of enterococcal infections. ORGANISM ID: 2 10,000 -<50,000 CFU/ml Normal urogenital beka ORGANISM ID: 1 (VANCOMYCIN RESISTANT ENTEROCOCOCCUS FAECALIS) -- ANTIBIOTIC INTERPRETATION DARIN STATUS REFERENCE RANGE -- Ampicillin S 2 F Susceptible <=8 , Resistant >8 The results of ampicillin predict the susceptibility to amoxicillin, amoxicillin-clavulanat e, ampicillin-sulbactam and piperacillin-tazobacta m. Vancomycin R >16 F Susceptible <=4 , Intermediate >4 , Resistant >16 Daptomycin S 2 F Susceptible <=2 , Intermediate >2 , Resistant >4 Linezolid S 1 F Susceptible <=2 , Intermediate >2 , Resistant >4 Nitrofurantoin S <=16 F Susceptible <=32 , Intermediate >32 , Resistant >64 Abnormal [facility] Comment on above: Order Comment: Speci men Type: URINE SPECIMEN [facility] Address: [address] [place] [address] Performed By: #### 2 4356-8 #### [facility] CLIA [id number] [address] [place] [address] [facility] Basic Metabolic Profile (BMP )on 12-25-2023 BUN/CRE 17.3 RATIO Normal 10-20 [place] Comment on above: Order Comment: 207.1 Performed By: #### L 500.2500, L100.0500 #### [facility] [address] [place], [address] CA,Total 9.0 mg/dL Normal 8.5-10.1 [facility] Comment on above: Order Comment: 207.1 Performed By: #### L 500.2500, L100.0500 #### [facility] [address] [place], [address] Chloride [Moles/Vol] 96 mmol/L Low 98-107 [facility] Comment on above: Order Comment: 207.1 Performed By: #### L 500.2500, L100.0500 #### [facility] [address] [place], [address] CO2 [Moles/Vol] 39.0 mmol/L High 21.0-32.0 [facility] Comment on above: Order Comment: 207.1 Performed By: #### L 500.2500, L100.0500 #### [facility] [address] [place], [address] Creatinine [Mass/Vol] 1.10 mg/dL High 0.55-1.02 [facility] Comment on above: Order Comment: 207.1 Result Comment: The validity of the calculated GFR GFRAA in patients over 70 years has not been determined. Clinical correlation is essential. Performed By: #### L 500.2500, L100.0500 #### [facility] [address] [place], [address] EST GFR - AA 62 mL/min Normal >60 [facility] Comment on above: Order Comment: 207.1 Result Comment: Afri can [place] GFR Calc Performed By: #### L 500.2500, L100.0500 #### [facility] [address] [place], [address] GAP 2 Low 5-15 [facility] Comment on above: Order Comment: 207.1 Performed By: #### L 500.2500, L100.0500 #### [facility] [address] [place], [address] GFR/1.73 sq M.predicted among non-blacks MDRD (S/P/Bld) [Vol rate/Area] 51 mL/min/{1.73_m2} Low >60 [facility] Comment on above: Order Comment: 207.1 Result Comment: Non- GFR Calc Performed By: #### L 500.2500, L100.0500 #### [facility] [address] [place], [address] Glucose [Mass/Vol] 103 mg/dL Normal 74-106 [facility] Comment on above: Order Comment: 207.1 Result Comment: Fast ing Glucose result from 100 to 125 mg/dL suggests IMPAIRED HOMEOSTASIS per A.D.A. criteria. Performed By: #### L 500.2500, L100.0500 #### [facility] [address] [place], [address] Potassium [Moles/Vol] 3.4 mmol/L Low 3.5-5.1 [facility] Comment on above: Order Comment: 207.1 Performed By: #### L 500.2500, L100.0500 #### [facility] [address] [place], [address] Sodium [Moles/Vol] 137 mmol/L Normal 136-145 [facility] Comment on above: Order Comment: 207.1 Performed By: #### L 500.2500, L100.0500 #### [facility] [address] [place], [address] Urea nitrogen [Mass/Vol] 19 mg/dL High 7-18 [facility] Comment on above: Order Comment: 207.1 Performed By: #### L 500.2500, L100.0500 #### [facility] [address] [place], [address] CBC-Complete Blood Cnt No Di ffon 12-25-2023 Erythrocyte distribution width (RBC) [Ratio] 13.9 % Normal 11.6-14.6 [facility] Comment on above: Order Comment: 207.1 Performed By: #### L 500.2500, L100.0500 #### [facility] [address] [place], [address] Hematocrit (Bld) [Volume fraction] 35.5 % Low 37-47 [facility] Comment on above: Order Comment: 207.1 Performed By: #### L 500.2500, L100.0500 #### [facility] [address] [place], [address] Hemoglobin (Bld) [Mass/Vol] 11.1 g/dL Low 12.0-15.0 [facility] Comment on above: Order Comment: 207.1 Performed By: #### L 500.2500, L100.0500 #### [facility] [address] [place], [address] MCH (RBC) [Entitic mass] 30.2 pg Normal 27.0-32.0 [facility] Comment on above: Order Comment: 207.1 Performed By: #### L 500.2500, L100.0500 #### [facility] [address] [place], [address] MCHC (RBC) [Mass/Vol] 31.3 g/dL Low 32-36 [facility] Comment on above: Order Comment: 207.1 Performed By: #### L 500.2500, L100.0500 #### [facility] [address] [place], [address] MCV (RBC) [Entitic vol] 96.5 fL Normal 81-99 [facility] Comment on above: Order Comment: 207.1 Performed By: #### L 500.2500, L100.0500 #### [facility] [address] [place], [address] Platelet mean volume (Bld) [Entitic vol] 10.0 fL Normal 6.2-12.0 [facility] Comment on above: Order Comment: 207.1 Performed By: #### L 500.2500, L100.0500 #### [facility] [address] [place], [address] Platelets (Bld) [#/Vol] 219 10*3/uL Normal 150-450 [facility] Comment on above: Order Comment: 207.1 Performed By: #### L 500.2500, L100.0500 #### [facility] [address] [place], [address] RBC (Bld) [#/Vol] 3.68 10*6/uL Low 4.2-5.4 [facility] Comment on above: Order Comment: 207.1 Performed By: #### L 500.2500, L100.0500 #### [facility] [address] [place], [address] RDW SD 49.1 fl High 35.1-43.9 [facility] Comment on above: Order Comment: 207.1 Performed By: #### L 500.2500, L100.0500 #### [facility] [address] [place], [address] WBC (Bld) [#/Vol] 8.5 10*3/uL Normal 4.4-11.0 [facility] Comment on above: Order Comment: 207.1 Performed By: #### L 500.2500, L100.0500 #### [facility] [address] [place], [address] Urine Cultureon 12-21-2023 [facility] STRAIGHT CATH Enterococcus faecium [place] Count 80,000-100,000 Enterococcus faecium: REACTION Ampicillin Islt DARIN <=2 S Ciprofloxacin Islt DARIN 2 I Gentamicin Synergy Susc Islt SYN-S S levoFLOXacin Islt DARIN 2 S Linezolid Islt DARIN 2 S Nitrofurantoin Islt DARIN 64 I Streptomycin High Pot Susc Islt SYN-S S Tetracycline Islt DARIN >=16 R Vancomycin Islt DARIN <=0.5 S Normal [facility] Comment on above: Performed By: #### L 500.2500, L100.0500 #### [facility] [address] [place], [address] Basic Metabolic Profile (BMP )on 12-18-2023 BUN/CRE 34.7 RATIO High 10-20 [facility] Comment on above: Order Comment: 207.1 Performed By: #### L 500.2500, L100.0500 #### [facility] [address] [place], [address] CA,Total 8.9 mg/dL Normal 8.5-10.1 [facility] Comment on above: Order Comment: 207.1 Performed By: #### L 500.2500, L100.0500 #### [facility] [address] [place], [address] Chloride [Moles/Vol] 97 mmol/L Low 98-107 [facility] Comment on above: Order Comment: 207.1 Performed By: #### L 500.2500, L100.0500 #### [facility] [address] [place], [address] CO2 [Moles/Vol] 34.0 mmol/L High 21.0-32.0 [facility] Comment on above: Order Comment: 207.1 Performed By: #### L 500.2500, L100.0500 #### [facility] [address] [place], [address] Creatinine [Mass/Vol] 0.66 mg/dL Normal 0.55-1.02 [facility] Comment on above: Order Comment: 207.1 Result Comment: The validity of the calculated GFR GFRAA in patients over 70 years has not been determined. Clinical correlation is essential. Performed By: #### L 500.2500, L100.0500 #### [facility] [address] [place], [address] EST GFR - AA 111 mL/min Normal >60 [facility] Comment on above: Order Comment: 207.1 Result Comment: Afri can [place] GFR Calc Performed By: #### L 500.2500, L100.0500 #### [facility] [address] [place], [address] GAP 5 Normal 5-15 [facility] Comment on above: Order Comment: 207.1 Performed By: #### L 500.2500, L100.0500 #### [facility] [address] [place], [address] GFR/1.73 sq M.predicted among non-blacks MDRD (S/P/Bld) [Vol rate/Area] 92 mL/min/{1.73_m2} Normal >60 [facility] Comment on above: Order Comment: 207.1 Result Comment: Non- GFR Calc Performed By: #### L 500.2500, L100.0500 #### [facility] [address] [place], [address] Glucose [Mass/Vol] 117 mg/dL High 74-106 [facility] Comment on above: Order Comment: 207.1 Result Comment: Fast ing Glucose result from 100 to 125 mg/dL suggests IMPAIRED HOMEOSTASIS per A.D.A. criteria. Performed By: #### L 500.2500, L100.0500 #### [facility] [address] [place], [address] Potassium [Moles/Vol] 3.6 mmol/L Normal 3.5-5.1 [facility] Comment on above: Order Comment: 207.1 Performed By: #### L 500.2500, L100.0500 #### [facility] [address] [place], [address] Sodium [Moles/Vol] 136 mmol/L Normal 136-145 [facility] Comment on above: Order Comment: 207.1 Performed By: #### L 500.2500, L100.0500 #### [facility] [address] [place], [address] Urea nitrogen [Mass/Vol] 23 mg/dL High 7-18 [facility] Comment on above: Order Comment: 207.1 Performed By: #### L 500.2500, L100.0500 #### [facility] [address] [place], [address] CBC-Complete Blood Cnt No Di ffon 12-18-2023 Erythrocyte distribution width (RBC) [Ratio] 14.1 % Normal 11.6-14.6 [facility] Comment on above: Order Comment: 207.1 Performed By: #### L 500.2500, L100.0500 #### [facility] [address] [place], [address] Hematocrit (Bld) [Volume fraction] 36.3 % Low 37-47 [facility] Comment on above: Order Comment: 207.1 Performed By: #### L 500.2500, L100.0500 #### [facility] [address] [place], [address] Hemoglobin (Bld) [Mass/Vol] 11.4 g/dL Low 12.0-15.0 [facility] Comment on above: Order Comment: 207.1 Performed By: #### L 500.2500, L100.0500 #### [facility] [address] [place], [address] MCH (RBC) [Entitic mass] 30.2 pg Normal 27.0-32.0 [facility] Comment on above: Order Comment: 207.1 Performed By: #### L 500.2500, L100.0500 #### [facility] [address] [place], [address] MCHC (RBC) [Mass/Vol] 31.4 g/dL Low 32-36 [facility] Comment on above: Order Comment: 207.1 Performed By: #### L 500.2500, L100.0500 #### [facility] [address] [place], [address] MCV (RBC) [Entitic vol] 96.0 fL Normal 81-99 [facility] Comment on above: Order Comment: 207.1 Performed By: #### L 500.2500, L100.0500 #### [facility] [address] [place], [address] Platelet mean volume (Bld) [Entitic vol] 9.0 fL Normal 6.2-12.0 [facility] Comment on above: Order Comment: 207.1 Performed By: #### L 500.2500, L100.0500 #### [facility] [address] [place], [address] Platelets (Bld) [#/Vol] 377 10*3/uL Normal 150-450 [facility] Comment on above: Order Comment: 207.1 Performed By: #### L 500.2500, L100.0500 #### [facility] [address] [place], [address] RBC (Bld) [#/Vol] 3.78 10*6/uL Low 4.2-5.4 [facility] Comment on above: Order Comment: 207.1 Performed By: #### L 500.2500, L100.0500 #### [facility] [address] [place], [address] RDW SD 48.9 fl High 35.1-43.9 [facility] Comment on above: Order Comment: 207.1 Performed By: #### L 500.2500, L100.0500 #### [facility] [address] [place], [address] WBC (Bld) [#/Vol] 10.6 10*3/uL Normal 4.4-11.0 [facility] [facility] Comment on above: Order Comment: 207.1 Performed By: #### L 500.2500, L100.0500 #### [facility] [address] [place], [address] KEPPRA (LEVETIRACETAM)on KEPPRA 29.4 ug/mL Normal 10.0-40.0 [facility] Comment on above: Order Comment: 207.1 Result Comment: Perf ormed at: - [facility] [phone] Director Employee Safety And Health: Yudy Owen MD, Phone: [phone] Performed By: #### L 500.2500, L100.0500 #### [facility] [address] [place], [address] Urinalysis, Routine (Dipstic k)on 12-18-2023 BILIRUBIN URINE Negative Normal Negative [facility] Comment on above: Order Comment: 207.1 Performed By: #### L 500.2500, L100.0500 #### [facility] [address] [place], [address] Clarity (U) Clear Normal Clear [facility] Comment on above: Order Comment: 207.1 Performed By: #### L 500.2500, L100.0500 #### [facility] [address] [place], [address] Color (U) Yellow Normal Yellow [facility] Comment on above: Order Comment: 207.1 Performed By: #### L 500.2500, L100.0500 #### [facility] [address] [place], [address] GLUCOSE, UR Normal Normal Normal [facility] Comment on above: Order Comment: 207.1 Performed By: #### L 500.2500, L100.0500 #### [facility] [address] [place], [address] KETONE UR Negative Normal Negative [facility] Comment on above: Order Comment: 207.1 Performed By: #### L 500.2500, L100.0500 #### [facility] [address] [place], [address] LEUK ESTERASE 100 /ul Abnormal Negative [facility] Comment on above: Order Comment: 207.1 Performed By: #### L 500.2500, L100.0500 #### [facility] [address] [place], [address] Nitrite Ql (U) Negative Normal Negative [facility] Comment on above: Order Comment: 207.1 Performed By: #### L 500.2500, L100.0500 #### [facility] [address] [place], [address] OCCULT BLOOD-UR Negative Normal Negative [facility] Comment on above: Order Comment: 207.1 Performed By: #### L 500.2500, L100.0500 #### [facility] [address] [place], [address] pH UR 5.0 Normal 5.0 - 8.0 [facility] Comment on above: Order Comment: 207.1 Performed By: #### L 500.2500, L100.0500 #### [facility] [address] [place], [address] PROT DIPSTX Negative Normal Negative [facility] Comment on above: Order Comment: 207.1 Performed By: #### L 500.2500, L100.0500 #### [facility] [address] [place], [address] SP.GR. DIPSTX 1.015 Normal 1.002-1.030 [facility] Comment on above: Order Comment: 207.1 Performed By: #### L 500.2500, L100.0500 #### [facility] [address] [place], [address] UROBILI Normal Normal Normal [facility] Comment on above: Order Comment: 207.1 Performed By: #### L 500.2500, L100.0500 #### [facility] [address] [place], [address] CBC-Complete Blood Cnt No Di ffon 12-16-2023 Erythrocyte distribution width (RBC) [Ratio] 14.1 % Normal 11.6-14.6 [facility] Comment on above: Order Comment: 207.1 Performed By: #### L 500.2500, L100.0500 #### [facility] [address] [place], [address] Hematocrit (Bld) [Volume fraction] 36.8 % Low 37-47 [facility] Comment on above: Order Comment: 207.1 Performed By: #### L 500.2500, L100.0500 #### [facility] [address] [place], [address] Hemoglobin (Bld) [Mass/Vol] 11.4 g/dL Low 12.0-15.0 [facility] Comment on above: Order Comment: 207.1 Performed By: #### L 500.2500, L100.0500 #### [facility] [address] [place], [address] MCH (RBC) [Entitic mass] 29.8 pg Normal 27.0-32.0 [facility] Comment on above: Order Comment: 207.1 Performed By: #### L 500.2500, L100.0500 #### [facility] [address] [place], [address] MCHC (RBC) [Mass/Vol] 31.0 g/dL Low 32-36 [facility] Comment on above: Order Comment: 207.1 Performed By: #### L 500.2500, L100.0500 #### [facility] [address] [place], [address] MCV (RBC) [Entitic vol] 96.3 fL Normal 81-99 [facility] Comment on above: Order Comment: 207.1 Performed By: #### L 500.2500, L100.0500 #### [facility] [address] [place], [address] Platelet mean volume (Bld) [Entitic vol] 9.2 fL Normal 6.2-12.0 [facility] Comment on above: Order Comment: 207.1 Performed By: #### L 500.2500, L100.0500 #### [facility] [address] [place], [address] Platelets (Bld) [#/Vol] 438 10*3/uL Normal 150-450 [facility] Comment on above: Order Comment: 207.1 Performed By: #### L 500.2500, L100.0500 #### [facility] [address] [place], [address] RBC (Bld) [#/Vol] 3.82 10*6/uL Low 4.2-5.4 [facility] Comment on above: Order Comment: 207.1 Performed By: #### L 500.2500, L100.0500 #### [facility] [address] [place], [address] RDW SD 48.8 fl High 35.1-43.9 [facility] Comment on above: Order Comment: 207.1 Performed By: #### L 500.2500, L100.0500 #### [facility] [address] [place], [address] WBC (Bld) [#/Vol] 13.4 10*3/uL High 4.4-11.0 [facility] Comment on above: Order Comment: 207.1 Performed By: #### L 500.2500, L100.0500 #### [facility] [address] [place], [address] Comprehensive Metabolic Prof [facility] 12-16-2023 Albumin [Mass/Vol] 2.4 g/dL Low 3.2-5.0 [facility] Comment on above: Order Comment: 207.1 Performed By: #### L 500.2500, L100.0500 #### [facility] [address] [place], [address] Albumin/Globulin [Mass ratio] 0.6 {ratio} Low 0.9-2.4 [facility] Comment on above: Order Comment: 207.1 Performed By: #### L 500.2500, L100.0500 #### [facility] [address] [place], [address] ALK P 111 U/L Normal 45-117 [facility] Comment on above: Order Comment: 207.1 Performed By: #### L 500.2500, L100.0500 #### [facility] [address] [place], [address] ALT [Catalytic activity/Vol] 25 U/L Normal 13-56 [facility] Comment on above: Order Comment: 207.1 Performed By: #### L 500.2500, L100.0500 #### [facility] [address] [place], [address] AST [Catalytic activity/Vol] 22 U/L Normal 15-37 [facility] Comment on above: Order Comment: 207.1 Result Comment: Slig ht Hemolysis, Result may be falsely increased. Performed By: #### L 500.2500, L100.0500 #### [facility] [address] [place], [address] Bilirubin [Mass/Vol] 0.30 mg/dL Normal 0.20-1.00 [facility] Comment on above: Order Comment: 207.1 Result Comment: For patients on eltrombopag therapy, use of Dimension [place] TBIL is not recommended. Performed By: #### L 500.2500, L100.0500 #### [facility] [address] [place], [address] BUN/CRE 34.5 RATIO High 10-20 [facility] Comment on above: Order Comment: 207.1 Performed By: #### L 500.2500, L100.0500 #### [facility] [address] [place], [address] CA,Total 9.0 mg/dL Normal 8.5-10.1 [facility] Comment on above: Order Comment: 207.1 Performed By: #### L 500.2500, L100.0500 #### [facility] [address] [place], [address] Chloride [Moles/Vol] 101 mmol/L Normal 98-107 [facility] Comment on above: Order Comment: 207.1 Performed By: #### L 500.2500, L100.0500 #### [facility] [address] [place], [address] CO2 [Moles/Vol] 30.0 mmol/L Normal 21.0-32.0 [facility] Comment on above: Order Comment: 207.1 Performed By: #### L 500.2500, L100.0500 #### [facility] [address] [place], [address] Creatinine [Mass/Vol] 0.70 mg/dL Normal 0.55-1.02 [facility] Comment on above: Order Comment: 207.1 Result Comment: The validity of the calculated GFR GFRAA in patients over 70 years has not been determined. Clinical correlation is essential. Performed By: #### L 500.2500, L100.0500 #### [facility] [address] [place], [address] EST GFR - AA 105 mL/min Normal >60 [facility] Comment on above: Order Comment: 207.1 Result Comment: Afri can [place] GFR Calc Performed By: #### L 500.2500, L100.0500 #### [facility] [address] [place], [address] GAP 5 Normal 5-15 [facility] Comment on above: Order Comment: .1 Performed By: #### L 500.2500, L100.0500 #### [facility] [address] [place], [address] GFR/1.73 sq M.predicted among non-blacks MDRD (S/P/Bld) [Vol rate/Area] 87 mL/min/{1.73_m2} Normal >60 [facility] Comment on above: Order Comment: 207.1 Result Comment: Non- GFR Calc Performed By: #### L 500.2500, L100.0500 #### [facility] [address] [place], [address] Globulin (S) [Mass/Vol] 4.2 g/dL Normal 2.2-4.2 [facility] Comment on above: Order Comment: 207.1 Performed By: #### L 500.2500, L100.0500 #### [facility] [address] [place], [address] Glucose [Mass/Vol] 142 mg/dL High 74-106 [facility] Comment on above: Order Comment: 207.1 Result Comment: Fast ing Glucose result greater than or equal to 126 mg/dL suggests DIABETES MELLITUS per A.D.A. criteria. Performed By: #### L 500.2500, L100.0500 #### [facility] [address] [place], [address] Potassium [Moles/Vol] 4.2 mmol/L Normal 3.5-5.1 [facility] Comment on above: Order Comment: 207.1 Result Comment: Slig ht Hemolysis, Result may be falsely increased. Performed By: #### L 500.2500, L100.0500 #### [facility] [address] [place], [address] Sodium [Moles/Vol] 136 mmol/L Normal 136-145 [facility] Comment on above: Order Comment: 207.1 Performed By: #### L 500.2500, L100.0500 #### [facility] [address] [place], [address] T PROT 6.6 g/dL Normal 6.4-8.2 [facility] Comment on above: Order Comment: 207.1 Performed By: #### L 500.2500, L100.0500 #### [facility] [address] [place], [address] Urea nitrogen [Mass/Vol] 24 mg/dL High 7-18 [facility] Comment on above: Order Comment: 207.1 Performed By: #### L 500.2500, L100.0500 #### [facility] [address] [place], [address] Basic metabolic 2000 panelon 12-11-2023 Anion gap [Moles/Vol] 9 mmol/L Normal 8-15 [facility] Comment on above: Order Comment: Speci men Type: BLOOD SPECIMENOrdering Facility: [facility] Address: [address] [place] [address] Performed By: #### 2 4321-2 ####[facility] [id number] [place] [address] [place] Calcium [Mass/Vol] 9.4 mg/dL Normal 8.5-10.2 [facility] Comment on above: Order Comment: Speci men Type: BLOOD SPECIMENOrdering Facility: [facility] Address: [address] [place] [address] Performed By: #### 2 4321-2 ####[facility]ORYCLIA [id number] [place] [address] [place] Chloride [Moles/Vol] 96 mmol/L Low 98-107 [facility] Comment on above: Order Comment: Speci men Type: BLOOD SPECIMENOrdering Facility: [facility] Address: [address] [place] [address] Performed By: #### 2 4321-2 ####[facility]ORY[facility]IA [id number] [place] [address] [place] CO2 [Moles/Vol] 30 mmol/L Normal 22-30 [facility] Comment on above: Order Comment: Speci men Type: BLOOD SPECIMENOrdering Facility: [facility] Address: [address] [place] [address] Performed By: #### 2 4321-2 ####[facility]ORYCLIA [id number] [place] [address] [place] Creatinine [Mass/Vol] 0.59 mg/dL Normal 0.58-0.96 [facility] Comment on above: Order Comment: Speci men Type: BLOOD SPECIMENOrdering Facility: [facility] Address: [address] [place] [address] Performed By: #### 2 4321-2 ####[facility]ORYCLIA [id number] [place] [address] [place] Creatinine and Glomerular filtration rate.predicted panel (S/P/Bld) 94 mL/min/1.73m??? Normal >=60 [facility] Comment on above: Order Comment: Ashu garcia Type: BLOOD SPECIMENOrdering Facility: [facility] Address: [address] [place] [address] Result Comment: Whitney mated Glomerular Filtration Rate (eGFR) is calculated using the 2020 CKD-EPI creatinine equation. This equation utilizes serum creatinine, sex, and age as parameters. The creatinine assay has traceable calibration to isotope dilution-mass spectrometry. Refer to KDIGO guidelines for clinical interpretation. In patients with unstable renal function, e.g. those with acute kidney injury, the eGFR may not accurately reflect actual GFR. Performed By: #### 2 4321-2 ####[facility]ORYCLIA [id number] [place] [address] [place] Glucose [Mass/Vol] 195 mg/dL High 74-99 [facility] Comment on above: Order Comment: Ashu garcia Type: BLOOD SPECIMENOrdering Facility: [facility] Address: [address] [place] [address] Result Comment: The [place] Diabetes Association (ADA) provides guidance for cutoff values for fasting glucose and random glucose. The ADA defines fasting as no caloric intake for at least 8 hours. Fasting plasma glucose results between 100 to 125 mg/dL indicate increased risk for diabetes (prediabetes). Fasting plasma glucose results greater than or equal to 126 mg/dL meet the criteria for diagnosis of diabetes. In the absence of unequivocal hyperglycemia, results should be confirmed by repeat testing. In a patient with classic symptoms of hyperglycemia or hyperglycemic crisis, random plasma glucose results greater than or equal to 200 mg/dL meet the criteria for diagnosis of diabetes. Reference: Standards of Medical Care in Diabetes 2016, [place] [employer] Association. Diabetes Care. 2016.39(Suppl 1). Performed By: #### 2 4321-2 ####[facility]ORYCLIA [id number] [place] [id number] [place] Potassium [Moles/Vol] 4.4 mmol/L Normal 3.7-5.1 [facility] Comment on above: Order Comment: Ashu garcia Type: BLOOD SPECIMENOrdering Facility: [facility] Address: [address] [place], [place] [address] Performed By: #### 2 4321-2 ####[facility]ORYCLIA [id number] [place] [id number] [place] Sodium [Moles/Vol] 135 mmol/L Low 136-144 [facility] Comment on above: Order Comment: Speci men Type: BLOOD SPECIMENOrdering Facility: [facility] Address: [address] [place] [address] Performed By: #### 2 4321-2 ####[facility]ORYCLIA [id number] [place] [id number] [place] Urea nitrogen [Mass/Vol] 26 mg/dL High 7-21 [facility] Comment on above: Order Comment: Speci men Type: BLOOD SPECIMENOrdering Facility: [facility] Address: [address] [place] [address] Performed By: #### 2 4321-2 ####[facility]ORYCLIA [id number] [place] [id number] [place] CASE MANAGEMon 12-11-2023 CASE MANAGEM HNO ID: [id number] Author: JOSTIN ROCHE RN Service: ? Author Type: Registered Nurse Type: Care Mgt Progress Note Filed: 12/11/2023 13:24 Note Text: CARE MANAGEMENT DISCHARGE NOTE SERVICE DATE: December 11, 2023 SERVICE TIME: 1322 Admission Date: 12/04/2023 LOS: 7 days Discharge Arrangement Discharge Arrangement: [facility] Facility Was an expedited discharge program used?: No Services Arranged Provider Name: [facility] Caregiver Assessment Caregiver is ready, willing and able to meet the patient's needs as recommended by the inter-professional team: Yes Name of Caregiver: [facility] Transportation Arrangements Transportation Arrangements: Ambulance Transportation Agency and Phone #:: [facility] ( [facility] ) [phone] / [phone] Date of Trip: 12/11/23 Time of Trip: 1600 Type of Service: BLS Non-emergency Is Patient Medicaid Pending?: No Rocket Scientist Location: [facility] Destination: [facility] Financial Care Management Responsibility: None Handoff Communication: Additional Information: NA Precert to [facility] approved and transport arranged for 1600 via [facility]. Patient and son Chucky informed and agreeable to discharge plan. DC summary and 7000 sent to facility. Transport folder placed on chart and nursing informed of transport time. SIGNATURE: Jostin Roche RN PATIENT NAME: Ana Lopes DATE: December 11, 2023 TIME: 1:22 PM CONTACT #: [phone] Normal [facility] CASE MANAGEM HNO ID: [id number] Author: JOSTIN ROCHE RN Service: ? Author Type: Registered Nurse Type: Care Mgt Progress Note Filed: 12/11/2023 11:14 Note Text: CARE MANAGEMENT PROGRESS NOTE SERVICE DATE: 12/11/2023 SERVICE TIME: 949 LOS: 7 days IMM Follow Up Copy Given: Yes Copy given to:: Patient Method: In Person Informed patient that precert approved to [facility] and discharge planned for today and transport scheduled for 1600. Pt's sister in room and aware of discharge plan. Transport folder placed on chart. SIGNATURE: Jostin Roche RN PATIENT NAME: Ana Lopes DATE: December 11, 2023 TIME: 11:12 AM PAGER/CONTACT #: [phone] Normal [facility] CBC panel Auto (Bld)on 12-10 Erythrocyte distribution width (RBC) [Ratio] 13.1 % Normal 11.5-15.0 [facility] Comment on above: Order Comment: Speci jose Type: BLOOD SPECIMENOrdering Facility: [facility] Address: [address] [place] [address] Performed By: #### 5 8410-2 ####[facility]ORYCLIA [id number] [place] [address] [place] Hematocrit (Bld) [Volume fraction] 36.6 % Normal 36.0-46.0 [facility] Comment on above: Order Comment: Ashu men Type: BLOOD SPECIMENOrdering Facility: [facility] Address: [address] [place] [address] Performed By: #### 5 8410-2 ####[facility]ORYCLIA [id number] [address] STATES OF [facility] Hemoglobin (Bld) [Mass/Vol] 11.6 g/dL Normal 11.5-15.5 [facility] Comment on above: Order Comment: Speci men Type: BLOOD SPECIMENOrdering Facility: [facility] Address: [address] [place] [address] Performed By: #### 5 8410-2 ####[facility]ORYCLIA [id number] [address] MCH (RBC) [Entitic mass] 30.0 pg Normal 26.0-34.0 [facility] Comment on above: Order Comment: Speci men Type: BLOOD SPECIMENOrdering Facility: [facility] Address: [address] [place] [address] Performed By: #### 5 8410-2 ####[facility]ORYCLIA [id number] [address] MCHC (RBC) [Mass/Vol] 31.7 g/dL Normal 30.5-36.0 [facility] Comment on above: Order Comment: Speci men Type: BLOOD SPECIMENOrdering Facility: [facility] Address: [address] [place] [address] Performed By: #### 5 8410-2 ####[facility]ORYCLIA [id number] [address] [place] MCV (RBC) [Entitic vol] 94.6 fL Normal 80.0-100.0 [facility] Comment on above: Order Comment: Speci men Type: BLOOD SPECIMENOrdering Facility: [facility] Address: [address] [place] [address] Performed By: #### 5 8410-2 ####[facility]ORYCLIA [id number] [address] Nucleated RBC (Bld) [#/Vol] 10*3/uL Normal <0.01 [facility] Comment on above: Order Comment: Speci men Type: BLOOD SPECIMENOrdering Facility: [facility] Address: [address] [place] [address] Performed By: #### 5 8410-2 ####[facility]ORYCLIA [id number] [place] [id number] [place] Platelet mean volume (Bld) [Entitic vol] 9.1 fL Normal 9.0-12.7 [facility] Comment on above: Order Comment: Speci men Type: BLOOD SPECIMENOrdering Facility: [facility] Address: [facility] [place] [address] Performed By: #### 5 8410-2 ####[facility]ORYCLIA [id number] [address] [place] Platelets (Bld) [#/Vol] 348 10*3/uL Normal 150-400 [facility] Comment on above: Order Comment: Speci men Type: BLOOD SPECIMENOrdering Facility: [facility] Address: [address] [place] [address] Performed By: #### 5 8410-2 ####[facility]ATORYCLIA [id number] [place] [address] [place] RBC (Bld) [#/Vol] 3.87 10*6/uL Low 3.90-5.20 [facility] Comment on above: Order Comment: Speci men Type: BLOOD SPECIMENOrdering Facility: [facility] Address: [address] [place] [address] Performed By: #### 5 8410-2 ####[facility]ORYCLIA [id number] [address] [place] WBC (Bld) [#/Vol] 12.78 10*3/uL High 3.70-11.00 [facility] Comment on above: Order Comment: Speci men Type: BLOOD SPECIMENOrdering Facility: [facility] Address: [address] [place] [address] Performed By: #### 5 8410-2 ####[facility]ATORYCLIA [id number] [address] [place] CNDSon 12-11-2023 CNDS HNO ID: [id number] Author: LEW DUBON DO Service: Family Practice Author Type: Resident Type: Discharge Summary Filed: 12/11/2023 20:35 Note Text: Attestation signed by Lew Dubon DO at 12/11/2023 8:35 PM Attending Note I evaluated the patient and personally participated in the clayton components. I agree with the resident's findings and plan as documented and have discussed the case and management of the patient's care with the resident. Plan of care discussed with: Provider, RN, Patient. >30 minutes spent in discharge planning Signature: Lew Dubon DO Date: December 11, 2023 Time: 8:32 PM DISCHARGE SUMMARY [facility] Patient Name: Ana Lopes Admission Date: 12/04/2023 Discharge Date: 12/11/2023 Length of Stay: 7 day(s) Disposition:SNF: Name of Facility: [facility] Condition at Discharge: Stable Code Status: Not on file Attending At Discharge: Dr. Lew Dubon DO Reason For Admission: Fall and acute on chronic hypoxic respiratory failure altered mental status in the setting of left lung pneumonia and UTI Physical Exam Constitutional: Appearance: She is obese. HENT: Head: Normocephalic and atraumatic. Nose: Comments: With nasal cannula Cardiovascular: Rate and Rhythm: Normal rate and regular rhythm. Pulses: Normal pulses. Heart sounds: Normal heart sounds. Pulmonary: Effort: Pulmonary effort is normal. Breath sounds: Wheezing (mild wheezing on exhalation) present. Comments: Coarse breath sounds Abdominal: General: Abdomen is flat. Bowel sounds are normal. Palpations: Abdomen is soft. Skin: General: Skin is warm and dry. Capillary Refill: Capillary refill takes less than 2 seconds. Neurological: General: No focal deficit present. Mental Status: She is alert and oriented to person, place, and time. Psychiatric: Mood and Affect: Mood normal. Behavior: Behavior normal. HOSPITAL DIAGNOSIS LIST: Principal Problem (Resolved): Fall (POA: Yes) Active Problems: Chronic respiratory failure with hypoxia (HCC) (POA: Yes) Chronic obstructive pulmonary disease, unspecified (HCC) (POA: Yes) Chronic diastolic (congestive) heart failure (HCC) (POA: Yes) Body mass index (BMI) 45.0-49.9, adult (HCC) (POA: Yes) Atrioventricular block, complete (HCC) (POA: Yes) Dependence on supplemental oxygen (POA: Yes) Hyperlipidemia, unspecified (POA: Yes) Hypertensive heart disease with heart failure (HCC) (POA: Yes) Interstitial pulmonary disease, unspecified (HCC) (POA: Yes) Morbid (severe) obesity with alveolar hypoventilation (HCC) (POA: Yes) Obstructive sleep apnea (adult) (pediatric) (POA: Yes) Presence of cardiac pacemaker (POA: Yes) Rheumatoid arthritis, unspecified (HCC) (POA: Yes) Type 2 diabetes mellitus without complication, without long-term current use of insulin (HCC) (POA: Yes) Seizure disorder (HCC) (POA: Yes) Lymphedema (POA: Yes) Pannus, abdominal (POA: Yes) Resolved Problems: Pneumonia of left lung due to infectious organism (POA: Yes) Pneumonia, unspecified organism (POA: Yes) UTI (urinary tract infection) (POA: Yes) Medications: Medication List START taking these medications predniSONE 20 mg tablet Commonly known as: DELTASONE Take 2 tablets by mouth once daily for 2 doses. Start taking on: December 12, 2023 CHANGE how you take these medications furosemide 20 mg tablet Commonly known as: LASIX Take 2 tablets by mouth once daily for 7 days, THEN 1 tablet once daily. Start taking on: December 11, 2023 What changed: See the new instructions. CONTINUE taking these medications albuterol HFA 90 mcg/actuation inhaler Commonly known as: PROVENTIL HFA, VENTOLIN HFA Inhale 2 Puffs as instructed every 6 hours as needed for wheezing/shortness of breath. aspirin 81 mg chewable tablet Take 1 tablet by mouth once daily. atorvastatin 80 mg tablet Commonly known as: LIPITOR Take 1 tablet by mouth once daily. [id number]-ua osphatid 1.7 mg-400 mcg- 2.4 mcg Cap Take 1 capsule by mouth once daily. Biotin 10,000 mcg Cap Take 1 capsule by mouth once daily. bvszmtm-bmjdvbuod-cjrq min D3 500 mg-5 mcg (200 unit) per tablet Commonly known as: Oyster Shell Calcium-Vitamin D Take 1 tablet by mouth once daily. cetirizine 10 mg tablet Commonly known as: ZyrTEC Take 1 tablet by mouth once daily. diclofenac 1 % topical gel Commonly known as: VOLTAREN ARTHRITIS PAIN Apply 4 g to affected area four times daily. fluticasone 50 mcg/actuation nasal spray Commonly known as: FLONASE ALLERGY RELIEF Use 1 [place] in each nostril once daily. levETIRAcetam 750 mg tablet Commonly known as: KEPPRA Take 1 tablet by mouth two times a day. metFORMIN 1,000 mg tablet Commonly known as: GLUCOPHAGE Take 1 tablet by (more content not included)... Normal [facility] Basic metabolic 2000 panelon 12-10-2023 Anion gap [Moles/Vol] 10 mmol/L Normal 8-15 [facility] Comment on above: Order Comment: Speci men Type: BLOOD SPECIMENOrdering Facility: [facility] Address: [address] [place] [address] Performed By: #### 2 4321-2 ####[facility]ORYCLIA [id number] [place] [address] [place] Calcium [Mass/Vol] 9.0 mg/dL Normal 8.5-10.2 [facility] Comment on above: Order Comment: Speci men Type: BLOOD SPECIMENOrdering Facility: [facility] Address: [address] [place] [address] Performed By: #### 2 4321-2 ####[facility]ORYCLIA [id number] [address] OF [facility] Chloride [Moles/Vol] 95 mmol/L Low 98-107 [facility] Comment on above: Order Comment: Speci men Type: BLOOD SPECIMENOrdering Facility: [facility] Address: [address] [place] [address] Performed By: #### 2 4321-2 ####[facility]ORYCLIA [id number] [address] OF [place] CO2 [Moles/Vol] 30 mmol/L Normal 22-30 [facility] Comment on above: Order Comment: Speci men Type: BLOOD SPECIMENOrdering Facility: [facility] Address: [address] [place] [address] Performed By: #### 2 4321-2 ####[facility] [id number] [address] Creatinine [Mass/Vol] 0.57 mg/dL Low 0.58-0.96 [facility] Comment on above: Order Comment: Speci men Type: BLOOD SPECIMENOrdering Facility: [facility] Address: [address] [place] [address] Performed By: #### 2 4321-2 ####[facility]ORYCLIA [id number] [address] Creatinine and Glomerular filtration rate.predicted panel (S/P/Bld) 94 mL/min/1.73m??? Normal >=60 [facility] Comment on above: Order Comment: Speci men Type: BLOOD SPECIMENOrdering Facility: [facility] Address: [address] [place] [address] Result Comment: Whitney mated Glomerular Filtration Rate (eGFR) is calculated using the 2020 CKD-EPI creatinine equation. This equation utilizes serum creatinine, sex, and age as parameters. The creatinine assay has traceable calibration to isotope dilution-mass spectrometry. Refer to KDIGO guidelines for clinical interpretation. In patients with unstable renal function, e.g. those with acute kidney injury, the eGFR may not accurately reflect actual GFR. Performed By: #### 2 4321-2 ####[facility]ATORYCLIA [id number] [place] [address] [place] Glucose [Mass/Vol] 265 mg/dL High 74-99 [facility] Comment on above: Order Comment: Ashu garcia Type: BLOOD SPECIMENOrdering Facility: [facility] Address: [address] [place] [address] Result Comment: The [place] [employer] (ADA) provides guidance for cutoff values for fasting glucose and random glucose. The ADA defines fasting as no caloric intake for at least 8 hours. Fasting plasma glucose results between 100 to 125 mg/dL indicate increased risk for diabetes (prediabetes). Fasting plasma glucose results greater than or equal to 126 mg/dL meet the criteria for diagnosis of diabetes. In the absence of unequivocal hyperglycemia, results should be confirmed by repeat testing. In a patient with classic symptoms of hyperglycemia or hyperglycemic crisis, random plasma glucose results greater than or equal to 200 mg/dL meet the criteria for diagnosis of diabetes. Reference: Standards of Medical Care in Diabetes 2016, [place] [employer]. Diabetes Care. 2016.39(Suppl 1). Performed By: #### 2 4321-2 ####[facility]IA [id number] [place] [address] [place] Potassium [Moles/Vol] Normal [facility] Comment on above: Order Comment: Ashu garcia Type: BLOOD SPECIMENOrdering Facility: [facility] Address: [address] [place] [address] Result Comment: Unab le to assay due to interference from hemolysis. Suggest reorder as clinically indicated. Performed By: #### 2 4321-2 ####[facility]ATORYCLIA [id number] [place] [address] [place] Sodium [Moles/Vol] 135 mmol/L Low 136-144 [facility] Comment on above: Order Comment: Ashu garcia Type: BLOOD SPECIMENOrdering Facility: [facility] Address: [address] [place] [address] Performed By: #### 2 4321-2 ####[facility]ATORYCLIA [id number] [place] [address] [place] Urea nitrogen [Mass/Vol] 22 mg/dL High 7-21 [facility] Comment on above: Order Comment: Speci men Type: BLOOD SPECIMENOrdering Facility: [facility] Address: [facility] [place] [address] Performed By: #### 2 4321-2 ####[facility]ATORYCLIA [id number] [address] [place] Basic metabolic 2000 panelon 12-09-2023 Anion gap [Moles/Vol] 8 mmol/L Low 9-18 [facility] Comment on above: Order Comment: Speci men Type: URINE SPECIMEN [facility] Address: [address] [place] [address] Performed By: #### 2 4356-8 #### [facility] CLIA [id number] [address] [place] Calcium [Mass/Vol] 8.1 mg/dL Low 8.5-10.2 [facility] Comment on above: Order Comment: Speci men Type: URINE SPECIMEN [facility] Address: [address] [place] [address] Performed By: #### 2 4356-8 #### [facility] CLIA [id number] [address] [place] Chloride [Moles/Vol] 102 mmol/L Normal 97-105 [facility] Comment on above: Order Comment: Speci men Type: URINE SPECIMEN [facility] Address: [address] [place] [address] Performed By: #### 2 4356-8 #### [facility] CLIA [id number] [address] [place] [address] [place] CO2 [Moles/Vol] 29 mmol/L Normal 22-30 [facility] Comment on above: Order Comment: Speci men Type: URINE SPECIMEN [facility] Address: [address] [place] [address] Performed By: #### 2 4356-8 #### [facility] CLIA [id number] [address] [place] Creatinine [Mass/Vol] 0.77 mg/dL Normal 0.58-0.96 [facility] Comment on above: Order Comment: Ashu garcia Type: URINE SPECIMEN [facility] Address: [address] [place] [address] Performed By: #### 2 4356-8 #### [facility] CLIA [id number] [address] Creatinine and Glomerular filtration rate.predicted panel (S/P/Bld) 80 mL/min/1.73m??? Normal >=60 [facility] Comment on above: Order Comment: Ashu garcia Type: URINE SPECIMEN [facility] Address: [address] [place] [address] Result Comment: Whitney mated Glomerular Filtration Rate (eGFR) is calculated using the 2020 CKD-EPI creatinine equation. This equation utilizes serum creatinine, sex, and age as parameters. The creatinine assay has traceable calibration to isotope dilution-mass spectrometry. Refer to KDIGO guidelines for clinical interpretation. In patients with unstable renal function, e.g. those with acute kidney injury, the eGFR may not accurately reflect actual GFR. Performed By: #### 2 4356-8 #### [facility] CLIA [id number] [address] STATES OF [facility] Glucose [Mass/Vol] 123 mg/dL High 74-99 [facility] Comment on above: Order Comment: Ashu garcia Type: URINE SPECIMEN [facility] Address: [address] [place] [address] Result Comment: The [place] Diabetes [employer] (ADA) provides guidance for cutoff values for fasting glucose and random glucose. The ADA defines fasting as no caloric intake for at least 8 hours. Fasting plasma glucose results between 100 to 125 mg/dL indicate increased risk for diabetes (prediabetes). Fasting plasma glucose results greater than or equal to 126 mg/dL meet the criteria for diagnosis of diabetes. In the absence of unequivocal hyperglycemia, results should be confirmed by repeat testing. In a patient with classic symptoms of hyperglycemia or hyperglycemic crisis, random plasma glucose results greater than or equal to 200 mg/dL meet the criteria for diagnosis of diabetes. Reference: Standards of Medical Care in Diabetes 2016, [place] [employer]. Diabetes Care. 2016.39(Suppl 1). Performed By: #### 2 4356-8 #### [facility] CLIA [id number] [address] Potassium [Moles/Vol] 4.2 mmol/L Normal 3.7-5.1 [facility] Comment on above: Order Comment: Speci men Type: URINE SPECIMEN [facility] Address: [address] [place] [address] Performed By: #### 2 4356-8 #### [facility] CLIA [id number] [address] Sodium [Moles/Vol] 139 mmol/L Normal 136-144 [facility] Comment on above: Order Comment: Speci men Type: URINE SPECIMEN [facility] Address: [address] [place] [address] Performed By: #### 2 4356-8 #### [facility] CLIA [id number] [address] Urea nitrogen [Mass/Vol] 17 mg/dL Normal 7-21 [facility] Comment on above: Order Comment: Speci men Type: URINE SPECIMEN [facility] Address: [address] [place] [address] Performed By: #### 2 4356-8 #### [facility] CLIA [id number] [address] OF [facility] CASE MANAGEMon 12-09-2023 CASE MANAGEM HNO ID: [id number] Author: JOSTIN ROCHE RN Service: ? Author Type: Registered Nurse Type: Care Mgt Progress Note Filed: 12/09/2023 14:37 Note Text: CARE MANAGEMENT PROGRESS NOTE SERVICE DATE: 12/09/2023 SERVICE TIME: 1436 LOS: 5 days Needs Prior to Discharge: To Be Determined;Insurance Authorization;Discharg e Transportation Chart reviewed. [facility] is FOC. SNF attestation signed. Will need 7000. Tasked precert to be started. Pt will need cot transport at discharge. CM will continue to follow. SIGNATURE: Jostin Roche RN PATIENT NAME: Ana Lopes DATE: December 09, 2023 TIME: 2:36 PM PAGER/CONTACT #: [phone] Normal [facility] CBC panel Auto (Bld)on 12-08 Erythrocyte distribution width (RBC) [Ratio] 13.3 % Normal 11.5-15.0 [facility] Comment on above: Order Comment: Speci men Type: BLOOD SPECIMENOrdering Facility: [facility] Address: [address] [place] [address] Performed By: #### S PNAG #### [facility] CLIA [id number] [address] Hematocrit (Bld) [Volume fraction] 39.0 % Normal 36.0-46.0 [facility] Comment on above: Order Comment: Speci men Type: BLOOD SPECIMENOrdering Facility: [facility] Address: [address] [place] [address] Performed By: #### S PNAG #### [facility] CLIA [id number] [address] STATES OF [facility] Hemoglobin (Bld) [Mass/Vol] 11.9 g/dL Normal 11.5-15.5 [facility] Comment on above: Order Comment: Speci men Type: BLOOD SPECIMENOrdering Facility: [facility] Address: [address] [place] [address] Performed By: #### S PNAG #### [facility] CLIA [id number] [address] STATES [facility] MCH (RBC) [Entitic mass] 30.2 pg Normal 26.0-34.0 [facility] Comment on above: Order Comment: Speci men Type: BLOOD SPECIMENOrdering Facility: [facility] Address: [address] [place] [address] Performed By: #### S PNAG #### [facility] CLIA [id number] [address] [place] MCHC (RBC) [Mass/Vol] 30.5 g/dL Normal 30.5-36.0 [facility] Comment on above: Order Comment: Speci men Type: BLOOD SPECIMENOrdering Facility: [facility] Address: [address] [place] [address] Performed By: #### S PNAG #### [facility] CLIA [id number] [address] MCV (RBC) [Entitic vol] 99.0 fL Normal 80.0-100.0 [facility] Comment on above: Order Comment: Speci men Type: BLOOD SPECIMENOrdering Facility: [facility] Address: [address] [place] [address] Performed By: #### S PNAG #### [facility] CLIA [id number] [address] Nucleated RBC (Bld) [#/Vol] 10*3/uL Normal <0.01 [facility] Comment on above: Order Comment: Speci men Type: BLOOD SPECIMENOrdering Facility: [facility] Address: [address] [place] [address] Performed By: #### S PNAG #### [facility] CLIA [id number] [address] Platelet mean volume (Bld) [Entitic vol] 10.2 fL Normal 9.0-12.7 [facility] Comment on above: Order Comment: Speci men Type: BLOOD SPECIMENOrdering Facility: [facility] Address: [address] [place] [address] Performed By: #### S PNAG #### [facility] CLIA [id number] [address] Platelets (Bld) [#/Vol] 274 10*3/uL Normal 150-400 [facility] Comment on above: Order Comment: Speci men Type: BLOOD SPECIMENOrdering Facility: [facility] Address: [address] [place] [address] Performed By: #### S PNAG #### [facility] CLIA [id number] [address] [place] [address] [place] RBC (Bld) [#/Vol] 3.94 10*6/uL Normal 3.90-5.20 [facility] Comment on above: Order Comment: Speci men Type: BLOOD SPECIMENOrdering Facility: [facility] Address: [address] [place] [address] Performed By: #### S PNAG #### [facility] CLIA [id number] [address] OF [place] WBC (Bld) [#/Vol] 10.03 10*3/uL Normal 3.70-11.00 [facility] Comment on above: Order Comment: Speci men Type: BLOOD SPECIMENOrdering Facility: [facility] Address: [address] [place] [address] Performed By: #### S PNAG #### [facility] CLIA [id number] [address] ECG COMPLETEon 12-09-2023 ECG COMPLETE Ventricular Rate : 1 10 BPM Atrial Rate : 33 BPM QRS Duration : 106 ms Q-T Interval : 356 ms QTC Calculation(Bazett) : 481 ms Calculated R [place] : 68 degrees Calculated T [place] : -76 degrees Ventricular-paced rhythm ABNORMAL ECG WHEN COMPARED WITH ECG OF 04-Dec-2023 10:25, VENT. RATE HAS INCREASED by 46 bpm Confirmed by MD CRENSHAW KAMALESH ([id number]) on 12/10/2023 2:35:36 PM NAME : ANA LOPES PID : [id number] : 1945 Gender : Female Race : ORD : [id number] Procedure Date : Dec 09 2023 08:15:05 Edit Date : Dec 10 2023 14:35:40 Diagnosis: Ventricular-paced rhythm ABNORMAL ECG WHEN COMPARED WITH ECG OF 04-Dec-2023 10:25, VENT. RATE HAS INCREASED by 46 bpm Confirmed by MD CRENSHAW KAMALESH ([id number]) on 12/10/2023 2:35:36 PM Test Reason : Arrhythmia Location : [address] : [place] [address] Overread By : MD CRENSHAW KAMALESH Edited By : MD CRENSHAW KAMALESH Referred By : , Acquired by : DIVYA MADISON Normal [facility] XR ABDOMEN 1V SUPINEon 12-08 XR ABDOMEN 1V SUPINE * * *Final Report* * * DATE OF EXAM: Dec 09 2023 11:14AM AKX [id number] - XR ABDOMEN 1V SUPINE / PROCEDURE REASON: Abdominal pain * * * * Physician Interpretation * * * * PORTABLE SUPINE KUB TYPE ABDOMEN: CLINICAL INDICATION: Abdominal pain. COMPARISON: Chest radiograph 12/07/2022. Two portable supine KUB type abdomen radiographs are submitted. The radiographs are limited by body habitus. The subdiaphragmatic abdomen is not included. Overlying cardiac monitoring leads. Nondistended air-filled loops of small and large bowel. Moderate stool burden descending colon. Mild/moderate distended urinary bladder. Limited evaluation for the presence of free peritoneal air. Right upper quadrant surgical clips. Degenerative changes lumbar spine. IMPRESSION: Limited single view abdomen. Nonobstructive distribution of bowel gas. Mild/moderate distended urinary bladder. Director Patient: PSCB Transcribe Date/Time: Dec 10 2023 7:43A Dictated by : LAUREN STEELE MD This examination was interpreted and the report reviewed and electronically signed by: LAUREN STEELE MD on Dec 10 2023 7:49AM EST [id number] Normal [facility] Basic metabolic 2000 panelon 12-08-2023 Anion gap [Moles/Vol] 9 mmol/L Normal 9-18 [facility] Comment on above: Order Comment: Speci men Type: BLOOD SPECIMENOrdering Facility: [facility] Address: [address] [place], [place] [address] Performed By: #### 3 3959-8, 33701-6 ####[facility]ORYCLIA [id number] [place] [address] [place] Calcium [Mass/Vol] 8.8 mg/dL Normal 8.5-10.2 [facility] Comment on above: Order Comment: Speci men Type: BLOOD SPECIMENOrdering Facility: [facility] Address: [address] [place] [address] Performed By: #### 3 1499-8, 45741-4 ####[facility]ORYCLIA [id number] [address] OF [facility] Chloride [Moles/Vol] 98 mmol/L Normal 97-105 [facility] Comment on above: Order Comment: Speci men Type: BLOOD SPECIMENOrdering Facility: [facility] Address: [address] [place] [address] Performed By: #### 3 3959-8, 23249-3 ####[facility]ORYCLIA [id number] [address] OF [facility] CO2 [Moles/Vol] 30 mmol/L Normal 22-30 [facility] Comment on above: Order Comment: Speci men Type: BLOOD SPECIMENOrdering Facility: [facility] Address: [address] [place] [address] Performed By: #### 3 3959-8, 48060-7 ####[facility]ORYCLIA [id number] [address] Creatinine [Mass/Vol] 0.69 mg/dL Normal 0.58-0.96 [facility] Comment on above: Order Comment: Speci men Type: BLOOD SPECIMENOrdering Facility: [facility] Address: [address] [place] [address] Performed By: #### 3 3959-8, 60601-6 ####[facility]ORYCLIA [id number] [address] Creatinine and Glomerular filtration rate.predicted panel (S/P/Bld) 90 mL/min/1.73m??? Normal >=60 [facility] Comment on above: Order Comment: Speci men Type: BLOOD SPECIMENOrdering Facility: [facility] Address: [address] [place] [address] Result Comment: Whitney mated Glomerular Filtration Rate (eGFR) is calculated using the 2020 CKD-EPI creatinine equation. This equation utilizes serum creatinine, sex, and age as parameters. The creatinine assay has traceable calibration to isotope dilution-mass spectrometry. Refer to KDIGO guidelines for clinical interpretation. In patients with unstable renal function, e.g. those with acute kidney injury, the eGFR may not accurately reflect actual GFR. Performed By: #### 3 3959-8, 84013-6 ####[facility]ORYCLIA [id number] [place] [address] [place] Glucose [Mass/Vol] 167 mg/dL High 74-99 [facility] Comment on above: Order Comment: Ashu garcia Type: BLOOD SPECIMENOrdering Facility: [facility] Address: [address] [place] [address] Result Comment: The [place] [employer] (ADA) provides guidance for cutoff values for fasting glucose and random glucose. The ADA defines fasting as no caloric intake for at least 8 hours. Fasting plasma glucose results between 100 to 125 mg/dL indicate increased risk for diabetes (prediabetes). Fasting plasma glucose results greater than or equal to 126 mg/dL meet the criteria for diagnosis of diabetes. In the absence of unequivocal hyperglycemia, results should be confirmed by repeat testing. In a patient with classic symptoms of hyperglycemia or hyperglycemic crisis, random plasma glucose results greater than or equal to 200 mg/dL meet the criteria for diagnosis of diabetes. Reference: Standards of Medical Care in Diabetes 2016, [place] [employer]. Diabetes Care. 2016.39(Suppl 1). Performed By: #### 3 3959-8, 73885-3 ####[facility] [id number] [place] [address] [place] Potassium [Moles/Vol] 4.3 mmol/L Normal 3.7-5.1 [facility] Comment on above: Order Comment: Ashu garcia Type: BLOOD SPECIMENOrdering Facility: [facility] Address: [address] [place] [address] Performed By: #### 3 3959-8, 96339-2 ####[facility]ORYCLIA [id number] [place] [address] [place] Sodium [Moles/Vol] 137 mmol/L Normal 136-144 [facility] Comment on above: Order Comment: Ashu garcia Type: BLOOD SPECIMENOrdering Facility: [facility] Address: [address] [place] [address] Performed By: #### 3 3959-8, 75995-8 ####[facility]ORYCLIA [id number] [address] STATES [facility] Urea nitrogen [Mass/Vol] 19 mg/dL Normal 7-21 [facility] Comment on above: Order Comment: Speci men Type: BLOOD SPECIMENOrdering Facility: [facility] Address: [address] [place] [address] Performed By: #### 3 3959-8, 80221-4 ####[facility]ORYCLIA [id number] [address] CBC panel Auto (Bld)on 12-07 Erythrocyte distribution width (RBC) [Ratio] 13.2 % Normal 11.5-15.0 [facility] Comment on above: Order Comment: Speci men Type: BLOOD SPECIMENOrdering Facility: [facility] Address: [address] [place] [address] Performed By: #### S PNAG #### [facility] CLIA [id number] [address] Hematocrit (Bld) [Volume fraction] 35.7 % Low 36.0-46.0 [facility] Comment on above: Order Comment: Speci men Type: BLOOD SPECIMENOrdering Facility: [facility] Address: [address] [place] [address] Performed By: #### S PNAG #### [facility] CLIA [id number] [address] Hemoglobin (Bld) [Mass/Vol] 11.6 g/dL Normal 11.5-15.5 [facility] Comment on above: Order Comment: Speci men Type: BLOOD SPECIMENOrdering Facility: [facility] Address: [address] [place] [address] Performed By: #### S PNAG #### [facility] CLIA [id number] [address] [place] MCH (RBC) [Entitic mass] 30.9 pg Normal 26.0-34.0 [facility] Comment on above: Order Comment: Speci men Type: BLOOD SPECIMENOrdering Facility: [facility] Address: [address] [place] [address] Performed By: #### S PNAG #### [facility] CLIA [id number] [address] MCHC (RBC) [Mass/Vol] 32.5 g/dL Normal 30.5-36.0 [facility] Comment on above: Order Comment: Speci men Type: BLOOD SPECIMENOrdering Facility: [facility] Address: [address] [place] [address] Performed By: #### S PNAG #### [facility] CLIA [id number] [address] MCV (RBC) [Entitic vol] 95.2 fL Normal 80.0-100.0 [facility] Comment on above: Order Comment: Speci men Type: BLOOD SPECIMENOrdering Facility: [facility] Address: [address] [place] [address] Performed By: #### S PNAG #### [facility] CLIA [id number] [address] Nucleated RBC (Bld) [#/Vol] 10*3/uL Normal <0.01 [facility] Comment on above: Order Comment: Speci men Type: BLOOD SPECIMENOrdering Facility: [facility] Address: [address] [place] [address] Performed By: #### S PNAG #### [facility] CLIA [id number] [address] Platelet mean volume (Bld) [Entitic vol] 9.3 fL Normal 9.0-12.7 [facility] Comment on above: Order Comment: Speci men Type: BLOOD SPECIMENOrdering Facility: [facility] Address: [address] [place] [address] Performed By: #### S PNAG #### [facility] CLIA [id number] [address] Platelets (Bld) [#/Vol] 219 10*3/uL Normal 150-400 [facility] Comment on above: Order Comment: Speci men Type: BLOOD SPECIMENOrdering Facility: [facility] Address: [address] [place] [address] Performed By: #### S PNAG #### [facility] CLIA [id number] [address] RBC (Bld) [#/Vol] 3.75 10*6/uL Low 3.90-5.20 [facility] Comment on above: Order Comment: Speci men Type: BLOOD SPECIMENOrdering Facility: [facility] Address: [address] [place] [address] Performed By: #### S PNAG #### [facility] CLIA [id number] [address] WBC (Bld) [#/Vol] 7.23 10*3/uL Normal 3.70-11.00 [facility] Comment on above: Order Comment: Speci men Type: BLOOD SPECIMENOrdering Facility: [facility] Address: [address] [place] [address] Performed By: #### S PNAG #### [facility] CLIA [id number] [address] NURSING PROGon 12-08-2023 NURSING PROG HNO ID: [id number] Author: GALINA FORTE RN Service: Nursing Author Type: Registered Nurse Type: Nursing Progress Note Filed: 12/08/2023 16:40 Note Text: Pt c/o sharp abd pain in the LLQ. This RN assessed and palpated the abd and there is no distention or tenderness except for the LLQ. This RN notified CFM. New orders given. Normal [facility] Procalcitonin SerPl-mCncon 0 12-08-2023 Procalcitonin [Mass/Vol] 0.07 ng/mL Normal <0.09 [facility] Comment on above: Order Comment: Speci men Type: BLOOD SPECIMENOrdering Facility: [facility] Address: [address] [place] [address] Result Comment: For a guided interpretation of test results, please visit the Change in Procalcitonin Calculator, [email or web address]. Performed By: #### 3 3959-8, 36845-3 ####[facility] [id number] [place] [address] [facility] THERAPY NTon 12-08-2023 THERAPY NT HNO ID: [id number] Author: BURKE DUTTA, PT Service: Physical Therapy Author Type: Physical Therapist Type: Therapy (PT/OT/Speech/Resp) Filed: 12/08/2023 14:59 Note Text: Physical Therapy Treatment Summary SERVICE DATE: 12/08/2023 SERVICE TIME: 1420 to 1444 [id number] Clicks Score: 11 DISCHARGE RECOMMENDATIONS Subacute/SNF Recommended Discharge Disposition Comments: Pt is below her baseline level of mobility and is not able to move herself unassisted. Pt will need SNF level therapy to regain safe PLOF prior to return to home. Recommended Discharge Disposition Due to: Patient requires daily, facility-based rehabilitation from at least one discipline due to:, ADL impairment resulting in caregiver dependence, decline in functional status requiring daily skilled care ASSESSMENT Response to Therapy Interventions: Good Participation in Activities Continues to have decreased mobility from her baseline and is at continued increased risk of falling and injury. Recommend SNF setting P.T. at discharge to return to safe PLOF prior to return to home. 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 Reports using w/c for long distance. Normally has some assist with bathing ADL SUBJECTIVE willing to participate THERAPY DIAGNOSIS Reduced mobility-other, Muscle Weakness (generalized), Abnormalities of gait and mobility-other, General symptoms and signs-other TREATMENT INTERVENTIONS Therapeutic Exercise (21931), Therapeutic Activity (99030), Gait Training (16378) Timed Code Treatment (minutes): 24 Skilled Treatment Time (minutes): 24 Therapeutic Exercise (37381) Treatment Minutes: 12 $ Therapeutic Exercise (86060) Billed Units: 1 unit Patient completed supine open kinetic chain active range of motion including straight leg raise, heel slides, hip abduction, Ankle pumps, and quad/glute sets 1x10 without added resistance to increase strength required for safe performance of all transfers/ambulation Therapeutic Activity (03952) Treatment Minutes: 8 $ Therapeutic Activity (77339) Billed Units: 1 unit Directed in bed mobility and transfers sit to stand. Needed multiple attempts to come to stand and needed physical assist. Gait Training (54280) Treatment Minutes: 4 $ Gait Training (93789) Billed Units: 0 units Standing to walker x2. Patient needed to sit to rest only after taking a few side steps. TRAINING AND EDUCATION PROVIDED Anatomy and Impact on Deficits, Assistive Device Use, Bed Mobility, Benefits of In-Hospital Mobility, Discharge Planning, Disease Specific Education, Expected Functional Level, Falls Prevention, Precautions/Restrictio ns, Role of Physical Therapy THERAPEUTIC SKILLS USED Activity Dosing, Cues for Sequencing/Proper Technique for Activity, Cuing Verbal, Movement Facilitation, Muscle Activation Facilitation, Physical Assist FUNCTIONAL STATUS Bed Mobility Rolling: Minimal Assistance Supine To Sit: Moderate Assistance Sit to Supine: Moderate Assistance Transfers Sit To Stand: Moderate Assistance, Additional Information educated on safe technique Stand To Sit: Minimal Assistance Bed to Chair Gait Minimal Assistance Gait Device: Wheeled Walker Gait Distance (feet): 2 side steps x2 Stairs GOALS Able to Perform HEP with: Verbal Cues Only Rolling with: Minimal Assistance Transfer Supine to/from Sit with: Minimal Assistance Transfer Sit to/from Stand with: Minimal Assistance Ambulate with: Minimal Assistance Distance: 15' Device: Wheeled Walker Rehab Potential: Good Progress Toward Goals: Progressing as expected PLAN PT Frequency: 2 Times Per Week (2-3) Treatment Interventions: Education, Joint Mobility, Strengthening, Functional Mobility Training Plan for Next Visit: Sit to Stand Transfers, Walker Training SIGNATURE: Burke Dutta PT PATIENT NAME: Ana Lopes DATE: December 08, 2023 TIME: 2:55 PM Normal [facility] THERAPY NT HNO ID: [id number] Author: MICA CORONA OTR/L Service: Occupational Therapy Author Type: Occupational Therapist Type: Therapy (PT/OT/Speech/Resp) Filed: 12/08/2023 11:48 Note Text: Occupational Therapy Treatment Summary SERVICE DATE: 12/08/2023 SERVICE TIME: 1101 to 1126 ROOM: [id number] OT 6 Clicks Score: 16 DISCHARGE RECOMMENDATIONS Subacute/SNF Recommended Discharge Disposition Due to: Patient requires daily, facility-based rehabilitation from at least one discipline due to:, ADL impairment resulting in caregiver dependence, decline in functional status requiring daily skilled care, ongoing intervention of multiple therapy disciplines ASSESSMENT Response to Therapy Interventions: Good Participation in Activities Patient tolerated session well. Today she was able to get out of bed and get over to chair to complete grooming activity. Patient still remains weaker than baseline and continues to need increased assist for ADLs and transfers. Patient is also unsteady on feet and is noted to be a high fall risk at this time. Further OT services are warranted. 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 Reports using w/c for long distance. Normally has some assist with bathing ADL Baseline Cognition: Oriented to self, Oriented to place, Oriented to time, Oriented to situation SUBJECTIVE agreeable to session COGNITION Responsiveness: Alert Follows Commands: 2-step Commands THERAPY DIAGNOSIS Reduced mobility-other, Decreased activities of daily living (ADL), Muscle Weakness (generalized), Unsteadiness on feet TREATMENT INTERVENTIONS Self Penitentiary Management (96621), Therapeutic Activity (64196) Timed Code Treatment (minutes): 25 Skilled Treatment Time (minutes): 25 Therapeutic Activity (79050) Treatment Minutes: 15 $ Therapeutic Activity (06746) Billed Units: 1 unit Self Penitentiary Management (26784) Treatment Minutes: 10 $ Self Penitentiary Management (38655) Billed Units: 1 unit TRAINING AND EDUCATION PROVIDED Assistive Device Use, Bed Mobility, Benefits of In-Hospital Mobility, Discharge Planning, Disease Specific Education, Functional Mobility Involving ADLs, Lower Extremity Dressing, Role of Occupational Therapy, Safety/Judgment, Standing Balance to Improve Pershing with ADLs/Self-Care, Transfer - Bed to Chair, Transfer - Sit to Stand, Grooming Tasks THERAPEUTIC SKILLS USED Activity Dosing, Assessment of Tolerance Including Vitals Response to Activity, Cues for Sequencing/Proper Technique for Activity, Cuing Verbal, Physical Assist FUNCTIONAL STATUS Activities of Daily Living Assist Level Additional Information Feeding Independent Grooming Set Up While sitting up in chair, challenged patient to complete hair washing and hair combing activity to increase activity tolerance, participation in ADLs and maximize upper extremity strength. Bathing Upper Body Moderate Assistance Bathing Lower Body Maximal Assistance Dressing Upper Body Minimal Assistance Dressing Lower Body Maximal Assistance Jjqw-jr-iwuk verbal direction to don and doff socks. Toileting Maximal Assistance Mobility Assist Level Additional Information Bed Mobility Supine To Sit: Minimal Assistance Min direction to move each lower extremity closer to side of bed while engaging core in order sit upright. Sit To Supine: Minimal Assistance Not tested this session. Sit to Stand Minimal Assistance Min direction for hand and body placement when standing. Provided cues to not pull on walker frame when getting up. Stand to Sit Minimal Assistance Min direction for good eccentric control when sitting down in chair. Bed to Chair Minimal Assistance Bed To Chair Transfer Type: Stepping Bed To Chair Transfer Equipment: Wheeled Walker Min cues for walker management and fall prevention during dynamic mobility over to chair. Instructed patient on the benefit and value of receiving continued OT services at d/c to increased independence with self care and functional transfers. Provided increased time and educated on energy conservation throughout. Toilet/Commode Shower GOALS Able to perform HEP with: Independent (UB strengthening) Grooming with: Modified Independent Upper Body Bathing with: Set Up Upper Body Dressing with: Set Up Lower Body Bathing with: Moderate Assistance Lower Body Dressing with: Moderate Assistance Toilet Hygiene (more content not included)... Normal [facility] XR CHEST 2V FRONTAL/LATon XR CHEST 2V FRONTAL/LAT * * *Final Repor t* * * DATE OF EXAM: Dec 08 2023 4:49PM AKX [id number] - XR CHEST 2V FRONTAL/LAT / PROCEDURE REASON: Cough * * * * Physician Interpretation * * * * EXAMINATION: CHEST RADIOGRAPH (2 VIEW FRONTAL and LATERAL) CLINICAL HISTORY: Cough, Shortness of breath MQ: XC2_6 EXAM DATE/TIME: 12/08/2023 4:49 PM COMPARISON: 12/05/2023. RESULT: Lines, tubes, and devices: A left pacemaker remains in place. Lungs and pleura: There are persistent diffuse bilateral interstitial infiltrates probably due to combination of pulmonary fibrosis and bronchitis. Bronchopneumonia cannot be excluded. Correlation with prior outside exams and follow-up exams are recommended. The pleural margins appear unremarkable. Cardiomediastinal silhouette: Stable cardiomediastinal silhouette with cardiomegaly and prominence of both ilya of indeterminate nature. Bones and soft tissues: Unremarkable. IMPRESSION: Cardiomegaly, bilateral hilar prominence and bilateral interstitial parenchymal changes as described above. Correlation with prior outside exams and follow-up exams are recommended. Director Patient: RAY Transcribe Date/Time: Dec 08 2023 4:52P Dictated by : TERENCE SMITH MD This examination was interpreted and the report reviewed and electronically signed by: TERENCE SMITH MD on Dec 08 2023 4:54PM EST [id number] Normal [facility] Basic metabolic 2000 panelon 12-07-2023 Anion gap [Moles/Vol] 9 mmol/L Normal 9-18 [facility] Comment on above: Order Comment: Speci men Type: BLOOD SPECIMENOrdering Facility: [facility] Address: [address] [place] [address] Performed By: #### 2 4321-2 ####[facility] [id number] [place] [address] [place] Calcium [Mass/Vol] 8.3 mg/dL Low 8.5-10.2 [facility] Comment on above: Order Comment: Speci men Type: BLOOD SPECIMENOrdering Facility: [facility] Address: [address] [place] [address] Performed By: #### 2 4321-2 ####[facility] [id number] [place] [address] [place] Chloride [Moles/Vol] 96 mmol/L Low 97-105 [facility] Comment on above: Order Comment: Speci men Type: BLOOD SPECIMENOrdering Facility: [facility] Address: [address] [place] [address] Performed By: #### 2 4321-2 ####[facility] [id number] [address] STATES OF [facility] CO2 [Moles/Vol] 30 mmol/L Normal 22-30 [facility] Comment on above: Order Comment: Speci men Type: BLOOD SPECIMENOrdering Facility: [facility] Address: [address] [place] [address] Performed By: #### 2 4321-2 ####[facility] [id number] [address] STATES OF [facility] Creatinine [Mass/Vol] 0.87 mg/dL Normal 0.58-0.96 [facility] Comment on above: Order Comment: Speci men Type: BLOOD SPECIMENOrdering Facility: [facility] Address: [address] [place] [address] Performed By: #### 2 4321-2 ####[facility] [id number] [address] Creatinine and Glomerular filtration rate.predicted panel (S/P/Bld) 69 mL/min/1.73m??? Normal >=60 [facility] Comment on above: Order Comment: Speci men Type: BLOOD SPECIMENOrdering Facility: [facility] Address: [address] [place] [address] Result Comment: Whitney mated Glomerular Filtration Rate (eGFR) is calculated using the 2020 CKD-EPI creatinine equation. This equation utilizes serum creatinine, sex, and age as parameters. The creatinine assay has traceable calibration to isotope dilution-mass spectrometry. Refer to KDIGO guidelines for clinical interpretation. In patients with unstable renal function, e.g. those with acute kidney injury, the eGFR may not accurately reflect actual GFR. Performed By: #### 2 4321-2 ####[facility] [id number] [address] Glucose [Mass/Vol] 135 mg/dL High 74-99 [facility] Comment on above: Order Comment: Speci men Type: BLOOD SPECIMENOrdering Facility: [facility] Address: [address] [place], [place] [address] Result Comment: The [place] [employer] (ADA) provides guidance for cutoff values for fasting glucose and random glucose. The ADA defines fasting as no caloric intake for at least 8 hours. Fasting plasma glucose results between 100 to 125 mg/dL indicate increased risk for diabetes (prediabetes). Fasting plasma glucose results greater than or equal to 126 mg/dL meet the criteria for diagnosis of diabetes. In the absence of unequivocal hyperglycemia, results should be confirmed by repeat testing. In a patient with classic symptoms of hyperglycemia or hyperglycemic crisis, random plasma glucose results greater than or equal to 200 mg/dL meet the criteria for diagnosis of diabetes. Reference: Standards of Medical Care in Diabetes 2016, [place] [employer]. Diabetes Care. 2016.39(Suppl 1). Performed By: #### 2 4321-2 ####[facility] [id number] [place] [address] [place] Potassium [Moles/Vol] 4.0 mmol/L Normal 3.7-5.1 [facility] Comment on above: Order Comment: Ashu garcia Type: BLOOD SPECIMENOrdering Facility: [facility] Address: [address] [place] [address] Performed By: #### 2 4321-2 ####[facility] [id number] [place] [address] [place] Sodium [Moles/Vol] 135 mmol/L Low 136-144 [facility] Comment on above: Order Comment: Adii men Type: BLOOD SPECIMENOrdering Facility: [facility] Address: [address] [id number] Performed By: #### 2 4321-2 ####[facility]ORYCLIA [id number] [place] [address] [place] Urea nitrogen [Mass/Vol] 20 mg/dL Normal 7-21 [facility] Comment on above: Order Comment: Speci men Type: BLOOD SPECIMENOrdering Facility: [facility] Address: [address] [place] [address] Performed By: #### 2 4321-2 ####[facility]IA [id number] [address] CBC panel Auto (Bld)on 12-06 Erythrocyte distribution width (RBC) [Ratio] 13.5 % Normal 11.5-15.0 [facility] Comment on above: Order Comment: Speci men Type: BLOOD SPECIMENOrdering Facility: [facility] Address: [address] [place] [address] Performed By: #### 5 8410-2 ####[facility]IA [id number] [address] Hematocrit (Bld) [Volume fraction] 36.5 % Normal 36.0-46.0 [facility] Comment on above: Order Comment: Speci men Type: BLOOD SPECIMENOrdering Facility: [facility] Address: [address] [place] [address] Performed By: #### 5 8410-2 ####[facility]IA [id number] [address] Hemoglobin (Bld) [Mass/Vol] 11.7 g/dL Normal 11.5-15.5 [facility] Comment on above: Order Comment: Speci men Type: BLOOD SPECIMENOrdering Facility: [facility] Address: [address] [place] [address] Performed By: #### 5 8410-2 ####[facility]ORYCLIA [id number] [address] STATES [facility] MCH (RBC) [Entitic mass] 30.3 pg Normal 26.0-34.0 [facility] Comment on above: Order Comment: Speci men Type: BLOOD SPECIMENOrdering Facility: [facility] Address: [address] [place] [address] Performed By: #### 5 8410-2 ####[facility]ORYCLIA [id number] [address] [place] MCHC (RBC) [Mass/Vol] 32.1 g/dL Normal 30.5-36.0 [facility] Comment on above: Order Comment: Speci men Type: BLOOD SPECIMENOrdering Facility: [facility] Address: [address] [place] [address] Performed By: #### 5 8410-2 ####[facility]IA [id number] [address] MCV (RBC) [Entitic vol] 94.6 fL Normal 80.0-100.0 [facility] Comment on above: Order Comment: Speci men Type: BLOOD SPECIMENOrdering Facility: [facility] Address: [address] [place] [address] Performed By: #### 5 8410-2 ####[facility]ORYCLIA [id number] [address] OF [facility] Nucleated RBC (Bld) [#/Vol] 10*3/uL Normal <0.01 [facility] Comment on above: Order Comment: Speci men Type: BLOOD SPECIMENOrdering Facility: [facility] Address: [address] [place] [address] Performed By: #### 5 8410-2 ####[facility]ORYCLIA [id number] [address] Platelet mean volume (Bld) [Entitic vol] 9.4 fL Normal 9.0-12.7 [facility] Comment on above: Order Comment: Speci men Type: BLOOD SPECIMENOrdering Facility: [facility] Address: [address] [place] [address] Performed By: #### 5 8410-2 ####[facility]ORYCLIA [id number] [address] OF [place] Platelets (Bld) [#/Vol] 210 10*3/uL Normal 150-400 [facility] Comment on above: Order Comment: Speci men Type: BLOOD SPECIMENOrdering Facility: [facility] Address: [address] [place] [address] Performed By: #### 5 8410-2 ####[facility]ORYCLIA [id number] [place] [address] [place] RBC (Bld) [#/Vol] 3.86 10*6/uL Low 3.90-5.20 [facility] Comment on above: Order Comment: Speci men Type: BLOOD SPECIMENOrdering Facility: [facility] Address: [address] [place] [address] Performed By: #### 5 8410-2 ####[facility]ORYCLIA [id number] [place] [address] [place] WBC (Bld) [#/Vol] 7.38 10*3/uL Normal 3.70-11.00 [facility] Comment on above: Order Comment: Speci men Type: BLOOD SPECIMENOrdering Facility: [facility] Address: [address] [place] [address] Performed By: #### 5 8410-2 ####[facility]ORYCLIA [id number] [address] OF [place] Basic metabolic 2000 panelon 12-06-2023 Anion gap [Moles/Vol] 10 mmol/L Normal 9-18 [facility] Comment on above: Order Comment: Speci men Type: BLOOD SPECIMENOrdering Facility: [facility] Address: [address] [place] [address] Performed By: #### 2 4321-2 ####[facility]ORYCLIA [id number] [place] [address] [place] Calcium [Mass/Vol] 8.4 mg/dL Low 8.5-10.2 [facility] Comment on above: Order Comment: Speci men Type: BLOOD SPECIMENOrdering Facility: [facility] Address: [address] [place] [address] Performed By: #### 2 4321-2 ####[facility]ORYCLIA [id number] [address] [place] Chloride [Moles/Vol] 96 mmol/L Low 97-105 [facility] Comment on above: Order Comment: Speci men Type: BLOOD SPECIMENOrdering Facility: [facility] Address: [address] [place] [address] Performed By: #### 2 4321-2 ####[facility]ORYCLIA [id number] [place] [id number] [place] CO2 [Moles/Vol] 28 mmol/L Normal 22-30 [facility] Comment on above: Order Comment: Speci men Type: BLOOD SPECIMENOrdering Facility: [facility] Address: [address] [place] [address] Performed By: #### 2 4321-2 ####[facility]ORYCLIA [id number] [address] [place] Creatinine [Mass/Vol] 1.01 mg/dL High 0.58-0.96 [facility] Comment on above: Order Comment: Speci men Type: BLOOD SPECIMENOrdering Facility: [facility] Address: [address] [place] [address] Performed By: #### 2 4321-2 ####[facility]ORYCLIA [id number] [address] Creatinine and Glomerular filtration rate.predicted panel (S/P/Bld) 58 mL/min/1.73m??? Low >=60 [facility] Comment on above: Order Comment: Speci men Type: BLOOD SPECIMENOrdering Facility: [facility] Address: [address] [place] [address] Result Comment: Whitney mated Glomerular Filtration Rate (eGFR) is calculated using the 2020 CKD-EPI creatinine equation. This equation utilizes serum creatinine, sex, and age as parameters. The creatinine assay has traceable calibration to isotope dilution-mass spectrometry. Refer to KDIGO guidelines for clinical interpretation. In patients with unstable renal function, e.g. those with acute kidney injury, the eGFR may not accurately reflect actual GFR. Performed By: #### 2 4321-2 ####[facility]ORYCLIA [id number] [address] [place] Glucose [Mass/Vol] 202 mg/dL High 74-99 [facility] Comment on above: Order Comment: Ashu men Type: BLOOD SPECIMENOrdering Facility: [facility] Address: [address] [place] [address] Result Comment: The [place] Diabetes [employer] (ADA) provides guidance for cutoff values for fasting glucose and random glucose. The ADA defines fasting as no caloric intake for at least 8 hours. Fasting plasma glucose results between 100 to 125 mg/dL indicate increased risk for diabetes (prediabetes). Fasting plasma glucose results greater than or equal to 126 mg/dL meet the criteria for diagnosis of diabetes. In the absence of unequivocal hyperglycemia, results should be confirmed by repeat testing. In a patient with classic symptoms of hyperglycemia or hyperglycemic crisis, random plasma glucose results greater than or equal to 200 mg/dL meet the criteria for diagnosis of diabetes. Reference: Standards of Medical Care in Diabetes 2016, [place] [employer]. Diabetes Care. 2016.39(Suppl 1). Performed By: #### 2 4321-2 ####[facility]ORYCLIA [id number] [place] [address] [place] Potassium [Moles/Vol] 4.6 mmol/L Normal 3.7-5.1 [facility] Comment on above: Order Comment: Ashu jose Type: BLOOD SPECIMENOrdering Facility: [facility] Address: [address] [place] [address] Performed By: #### 2 4321-2 ####[facility]ORYCLIA [id number] [place] [address] [place] Sodium [Moles/Vol] 134 mmol/L Low 136-144 [facility] Comment on above: Order Comment: Adii men Type: BLOOD SPECIMENOrdering Facility: [facility] Address: [address] [place] [address] Performed By: #### 2 4321-2 ####[facility]ORYCLIA [id number] [place] [address] [place] Urea nitrogen [Mass/Vol] 22 mg/dL High 7-21 [facility] Comment on above: Order Comment: Adii men Type: BLOOD SPECIMENOrdering Facility: [facility] Address: [address] [place] [address] Performed By: #### 2 4321-2 ####[facility]ATORYCLIA [id number] [place] [address] [facility] CASE MANAGEMon 12-06-2023 CASE MANAGEM HNO ID: [id number] Author: JOSTIN ROCHE RN Service: ? Author Type: Registered Nurse Type: Care Mgt Progress Note Filed: 12/06/2023 15:55 Note Text: CARE MANAGEMENT PROGRESS NOTE SERVICE DATE: 12/06/2023 SERVICE TIME: 1553 LOS: 2 days Needs Prior to Discharge: To Be Determined;Accepting Facility;Bed Availability;Facility or Agency Choices;Insurance Authorization;Discharg e Transportation TC to pt's son Chucky regarding SNF choices. Referrals were sent to [facility]'s and informed Chucky that [facility] and [facility] accept. Chucky will review for FOC. SIGNATURE: Jostin Roche RN PATIENT NAME: Ana Lopes DATE: December 06, 2023 TIME: 3:53 PM PAGER/CONTACT #: [phone] [facility] CASE MANAGEM HNO ID: [id number] Author: LEW DUBON DO Service: Family Practice Author Type: Registered Nurse Type: Min Mgt Progress Note Filed: 12/06/2023 20:40 Note Text: Attestation signed by Lew Dubon DO at 12/06/2023 8:40 PM Agree with documented information Lew Dubon DO Physician Certification of Less Than 30 Days Post-Acute Nursing Facility Needed Earliest Possible Discharge Date: 12/06/23 To the best of my knowledge, all information provided about the individual is a true and an accurate reflection of Ana Lopes's needs. I certify that following the inpatient level of care, a post-acute nursing facility stay is required for less than 30 days related to the condition(s) for which the patient was treated during the inpatient level of care: Principal Problem: Fall Active Problems: Chronic respiratory failure with hypoxia (HCC) Chronic obstructive pulmonary disease, unspecified (HCC) Chronic diastolic (congestive) heart failure (HCC) Body mass index (BMI) 45.0-49.9, adult (HCC) Atrioventricular block, complete (HCC) Dependence on supplemental oxygen Hyperlipidemia, unspecified Hypertensive heart disease with heart failure (HCC) Interstitial pulmonary disease, unspecified (HCC) Morbid (severe) obesity with alveolar hypoventilation (HCC) Obstructive sleep apnea (adult) (pediatric) Presence of cardiac pacemaker Rheumatoid arthritis, unspecified (HCC) Type 2 diabetes mellitus without complication, without long-term current use of insulin (HCC) Pneumonia of left lung due to infectious organism Seizure disorder (HCC) Lymphedema Pneumonia, unspecified organism UTI (urinary tract infection) Pannus, abdominal Resolved Problems: * No resolved hospital problems. * Physician: Lew Dubon DO Normal [facility] CASE MANAGEM HNO ID: [id number] Author: JOSTIN ROCHE RN Service: ? Author Type: Registered Nurse Type: Care Mgt Progress Note Filed: 12/06/2023 11:31 Note Text: CARE MANAGEMENT PROGRESS NOTE SERVICE DATE: 12/06/2023 SERVICE TIME: 1128 LOS: 2 days Needs Prior to Discharge: To Be Determined;Accepting Facility;Bed Availability;Facility or Agency Choices;Insurance Authorization;Discharg e Transportation [place] of Choice Given: Yes Level of Care Discussed: Retirement Facility Financial Disclosure Provided: Yes Financial Disclosure Comments: [facility] Conmnected Care Provider List: Retirement Facility Provider list within the patient's requested geographic area shared with the patient/family: Yes within: 10 miles of zip code: [address] Quality and resource use metrics shared with the patient that are relevant to the patient's goals of care and treatment preferences:: Yes Metrics: Skin Integrity;Incidence of Major Falls;Potentially Preventable 30-day Post Discharge Readmission Rates Chart reviewed. Discussed SNF placement with pt as per therapy recs. Pt has been to [facility] multiple times and states she wants to go somewhere else. Pt requested CM call son as she states he wants a facility closer to him in [place]. TC to son Chucky and discussed SNF placement. Choice list emailed to Chucky at [email or web address]. Pt will need FOC, precert, 7000, and cot transportation. CM will continue to follow. SIGNATURE: Jostin Roche RN PATIENT NAME: Ana Lopes DATE: December 06, 2023 TIME: 11:28 AM PAGER/CONTACT #: [phone] Normal [facility] CBC panel Auto (Bld)on 12-05 Erythrocyte distribution width (RBC) [Ratio] 13.6 % Normal 11.5-15.0 [facility] Comment on above: Order Comment: Speci men Type: BLOOD SPECIMENOrdering Facility: [facility] Address: [address] [place] [address] Performed By: #### 5 8410-2 ####[facility]ATORYCLIA [id number] [place] [address] [place] Hematocrit (Bld) [Volume fraction] 38.7 % Normal 36.0-46.0 [facility] Comment on above: Order Comment: Speci jose Type: BLOOD SPECIMENOrdering Facility: [facility] Address: [address] [place] [address] Performed By: #### 5 8410-2 ####[facility]ATORYCLIA [id number] [place] [address] [place] Hemoglobin (Bld) [Mass/Vol] 12.6 g/dL Normal 11.5-15.5 [facility] Comment on above: Order Comment: Speci men Type: BLOOD SPECIMENOrdering Facility: [facility] Address: [facility] [place] [address] Performed By: #### 5 8410-2 ####[facility]ATORYCLIA [id number] [place] [address] [place] MCH (RBC) [Entitic mass] 30.8 pg Normal 26.0-34.0 [facility] Comment on above: Order Comment: Speci men Type: BLOOD SPECIMENOrdering Facility: [facility] Address: [address] [place] [address] Performed By: #### 5 8410-2 ####[facility]ATORYCLIA [id number] [address] [place] [facility] MCHC (RBC) [Mass/Vol] 32.6 g/dL Normal 30.5-36.0 [facility] Comment on above: Order Comment: Speci men Type: BLOOD SPECIMENOrdering Facility: [facility] Address: [address] [place] [address] Performed By: #### 5 8410-2 ####[facility]ATORYCLIA [id number] [address] [place] MCV (RBC) [Entitic vol] 94.6 fL Normal 80.0-100.0 [facility] Comment on above: Order Comment: Speci men Type: BLOOD SPECIMENOrdering Facility: [facility] Address: [address] [place] [address] Performed By: #### 5 8410-2 ####[facility]ORYCLIA [id number] [address] Nucleated RBC (Bld) [#/Vol] 10*3/uL Normal <0.01 [facility] Comment on above: Order Comment: Speci men Type: BLOOD SPECIMENOrdering Facility: [facility] Address: [address] [place] [address] Performed By: #### 5 8410-2 ####[facility]ATORYCLIA [id number] [address] Platelet mean volume (Bld) [Entitic vol] 9.3 fL Normal 9.0-12.7 [facility] Comment on above: Order Comment: Speci men Type: BLOOD SPECIMENOrdering Facility: [facility] Address: [address] [place] [address] Performed By: #### 5 8410-2 ####[facility]ATORYCLIA [id number] [place] [address] [place] Platelets (Bld) [#/Vol] 208 10*3/uL Normal 150-400 [facility] Comment on above: Order Comment: Speci men Type: BLOOD SPECIMENOrdering Facility: [facility] Address: [address] [place] [address] Performed By: #### 5 8410-2 ####[facility]ATORYCLIA [id number] [place] [id number] [facility] [place] RBC (Bld) [#/Vol] 4.09 10*6/uL Normal 3.90-5.20 [facility] Comment on above: Order Comment: Speci men Type: BLOOD SPECIMENOrdering Facility: [facility] Address: [address] [place] [address] Performed By: #### 5 8410-2 ####[facility]ATORYCLIA [id number] [address] WBC (Bld) [#/Vol] 7.18 10*3/uL Normal 3.70-11.00 [facility] Comment on above: Order Comment: Speci men Type: BLOOD SPECIMENOrdering Facility: [facility] Address: [address] [place] [address] Performed By: #### 5 8410-2 ####[facility]ATORYCLIA [id number] [place] [id number] [facility] CONSULT PROGon 12-06-2023 CONSULT PROG HNO ID: [id number] Author: ADAMARIS ORR RPh Service: Pharmacy Author Type: Pharmacist Type: Consult Progress Note Filed: 12/06/2023 08:44 Note Text: PHARMACY PROGRESS NOTE Patient Name: Ana Lopes Admission Date: 12/04/2023 Date of Consult: 12/06/2023 Time of Consult: 8:43 AM In accordance with the inpatient pharmacy consult agreement the following medication changes have been made: IV to PO Discontinue Azithromycin 500 mg IV q24h, change to azithromycin 500 mg PO q24h per IV to PO guidelines. *I retained the same duration of therapy as intended from the prior IV dosing regimen. Pharmacy will continue to monitor patient for continued eligibility of these medication changes. Please call with any questions or concerns. SIGNATURE: Adamaris Orr RPh DATE/TIME: 12/06/2023 8:43 AM Normal [facility] STREPTOCOCCUS PNEUMONIAE ANT IGEN URINEon 12-06-2023 STREPTOCOCCUS PNEUMONIAE ANTIGEN URINE STREP PNEUMO AG RESULT: Negative for Streptococcus pneumoniae antigen. Presumptive negative for pneumococcal pneumonia, suggesting no current or recent pneumococcal infection. Infection due to S.pneumoniae cannot be ruled out since the antigen present in the sample may be below the detection limit of the test. Normal [facility] Comment on above: Performed By: #### S PNAG #### [facility] CLIA [id number] [address] [place] [address] THERAPY NTon 12-06-2023 THERAPY NT HNO ID: [id number] Author: ROSALIND TOURE OTR/Ankur Service: Occupational Therapy Author Type: Occupational Therapist Type: Therapy (PT/OT/Speech/Resp) Filed: 12/06/2023 10:57 Note Text: Occupational Therapy Evaluation Summary SERVICE DATE: 12/06/2023 SERVICE TIME: 1018 to 1042 ROOM: [place] [address] OT 6 Clicks Score: 16 DISCHARGE RECOMMENDATIONS Subacute/SNF Recommended Discharge Disposition Due to: Patient requires daily, facility-based rehabilitation from at least one discipline due to:, ADL impairment resulting in caregiver dependence, decline in functional status requiring daily skilled care, ongoing intervention of multiple therapy disciplines ASSESSMENT Response to Therapy Interventions: Good Participation in Activities PRECAUTIONS Fall Risk, Bed/Chair Alarm CURRENT HOSPITAL COURSE fall at home and found to have pneumonia Relevant Past Medical History: obesity, DM2, HF, COPD, Pacemaker, HOME LIVING Patient Lives With: Self/Alone 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 Reports using w/c for long distance. Normally has some assist with bathing ADL Baseline Cognition: Oriented to self, Oriented to place, Oriented to time, Oriented to situation SUBJECTIVE agreeable to session; reports feeling weak COGNITION Responsiveness: Alert Follows Commands: 2-step Commands THERAPY DIAGNOSIS Reduced mobility-other, Decreased activities of daily living (ADL), Muscle Weakness (generalized), Unsteadiness on feet TREATMENT INTERVENTIONS Evaluation, Therapeutic Activity (62967) Timed Code Treatment (minutes): 8 Skilled Treatment Time (minutes): 24 $ Evaluation - Moderate (65752) Billed Units: 1 unit Therapeutic Activity (87443) Treatment Minutes: 8 $ Therapeutic Activity (24716) Billed Units: 1 unit Facilitated safe transition from supine to edge of bed sitting with min verbal cues and fall guarding assistance (min assist) to ensure safety. Cued patient on proper use of bed rails and proper hand placement. Instructed pt on safe sit-stand transfer with min cues to push from bed and to use momentum to come into standing. Able to stand on 2nd attempt after instruction. Then facilitated safe side stepping along bedside to assess functional mobility, activity tolerance, and ability to complete out of bed ADL transfers. Provided min verbal cues for step sequencing and wheeled walker navigation as well as fall guarding assistance to ensure safety due to weakness and low activity tolerance. TRAINING AND EDUCATION PROVIDED Activity Adaptation/Safety Deposit Supervisor y Strategies, Assistive Device Use, Bed Mobility, Benefits of In-Hospital Mobility, Energy Conservation, Functional Mobility Involving ADLs, Positioning, Precautions/Restrictio ns, Role of Occupational Therapy, Sitting Balance to Improve Pershing with ADLs/Self-Care, Standing Balance to Improve Pershing with ADLs/Self-Care, Transfer - Sit to Stand THERAPEUTIC SKILLS USED Activity Dosing, Assessment of Tolerance Including Vitals Response to Activity, Cues for Sequencing/Proper Technique for Activity, Cuing Verbal, Physical Assist FUNCTIONAL STATUS Activities of Daily Living Assist Level Additional Information Feeding Independent Grooming Set Up Bathing Upper Body Moderate Assistance Bathing Lower Body Maximal Assistance Dressing Upper Body Minimal Assistance Dressing Lower Body Maximal Assistance Toileting Maximal Assistance Mobility Assist Level Additional Information Bed Mobility Supine To Sit: Minimal Assistance Sit To Supine: Minimal Assistance Sit to Stand Minimal Assistance Stand to Sit Minimal Assistance Bed to Chair Toilet/Commode Shower Functional Mobility Minimal Assistance Functional Mobility Device: Wheeled Walker ROM STRENGTH Strength Limitation Comments: B UEs 4/5 ACTIVITY TOLERANCE Standing Activity: side stepping S Able to perform HEP with: Independent (UB strengthening) Grooming with: Modified Independent Upper Body Bathing with: Set Up Upper Body Dressing with: Set Up Lower Body Bathing with: Moderate Assistance Lower Body Dressing with: Moderate Assistance Toilet Hygiene with: Moderate Assistance Chair Transfer with: Minimal Assistance Toilet Transfer with: Minimal Assistance Tolerate (minutes of functional activity): 25 Functional Activity with: Contact Guard Assistance Rehab Potential: Good PLAN OT Frequency: 2 Times Per Week Treatment Interventions: Education, Self Care/Home Management, Strengthening, Functional Mobility Training SIGNATURE: INDIRA Hammond/Ankur PATIENT NAME: Ana Lopes DATE: December 06, 2023 MRN: [id number] (more content not included)... Normal [facility] THERAPY NT HNO ID: [id number] Author: BURKE DUTTA PT Service: Physical Therapy Author Type: Physical Therapist Type: Therapy (PT/OT/Speech/Resp) Filed: 12/06/2023 09:23 Note Text: Physical Therapy Evaluation Summary SERVICE DATE: 12/06/2023 SERVICE TIME: 0754 to 0823 ROOM: [place] [address] PT 6 Clicks Score: 11 DISCHARGE RECOMMENDATIONS Subacute/SNF Recommended Discharge Disposition Comments: Pt is below her baseline level of mobility and is not able to move herself unassisted. Pt will need SNF level therapy to regain safe PLOF prior to return to home. 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 Reports using w/c for long distance. SUBJECTIVE c/o being cold THERAPY DIAGNOSIS Reduced mobility-other, Muscle Weakness (generalized), Abnormalities of gait and mobility-other, General symptoms and signs-other TREATMENT INTERVENTIONS Evaluation, Therapeutic Activity (14760) Timed Code Treatment (minutes): 8 Skilled Treatment Time (minutes): 29 $ Evaluation-Moderate (07723) Billed Units: 1 unit Therapeutic Activity (64286) Treatment Minutes: 8 $ Therapeutic Activity (96295) Billed Units: 1 unit Directed in bed mobility and transfers using safe technique to stand to walker. Took multiple steps with walker but fatigued quickly and had to quickly return to sitting. Patient with poor endurance for ambulation TRAINING AND EDUCATION PROVIDED Anatomy and Impact on Deficits, Assistive Device Use, Bed Mobility, Benefits of In-Hospital Mobility, Discharge Planning, Disease Specific Education, Expected Functional Level, Falls Prevention, Precautions/Restrictio ns, Role of Physical Therapy THERAPEUTIC SKILLS USED Activity Dosing, Cues for Sequencing/Proper Technique for Activity, Cuing Verbal, Movement Facilitation, Muscle Activation Facilitation, Physical Assist FUNCTIONAL STATUS Bed Mobility Rolling: Minimal Assistance Supine To Sit: Moderate Assistance Sit to Supine: Moderate Assistance Transfers Sit To Stand: Moderate Assistance Stand To Sit: Minimal Assistance Bed to Chair Gait Minimal Assistance Gait Device: Wheeled Walker General Deviations/Observation s: Flexed trunk posture, Trisha decreased, Shuffling Gait Gait Distance (feet): 2 steps fwd and back and a few side steps Stairs Range of Motion: ROM Limitation Comments ROM Limitation Comments: limited by weakness and reported lack of energy Strength: Strength Limitation Comments Strength Limitation Comments: 3 to 4- GOALS Able to Perform HEP with: Verbal Cues Only Rolling with: Minimal Assistance Transfer Supine to/from Sit with: Minimal Assistance Transfer Sit to/from Stand with: Minimal Assistance Ambulate with: Minimal Assistance Distance: 15' Device: Wheeled Walker Rehab Potential: Good PLAN PT Frequency: 2 Times Per Week (2-3) Treatment Interventions: Education, Joint Mobility, Strengthening, Functional Mobility Training Plan for Next Visit: Sit to Stand Transfers, Walker Training SIGNATURE: Burke Dutta, PT PATIENT NAME: Ana Lopes DATE: December 06, 2023 TIME: 9:21 AM Normal [facility] levETIRAcetam SerPl-mCncon 0 12-06-2023 levETIRAcetam [Mass/Vol] 44.0 ug/mL Normal 12.0-46.0 [facility] Comment on above: Order Comment: Speci men Type: BLOOD SPECIMENOrdering Facility: [facility] Address: [address] [place] [address] Result Comment: This test is not suitable for patients receiving treatment with the drug brivaracetam (Briviact). The drug causes an interference that may lead to falsely elevated levetiracetam results. Reference ranges and high/low indicator flags are provided as general guidelines only. The treating physician must determine appropriate target levels/dosing based on the specific clinical situation. This test was developed and its performance characteristics determined by [facility] [place] ([facility]). It has not been cleared or approved by the FDA. [facility] is regulated under CLIA as qualified to perform high-complexity testing. This test is used for clinical purposes. It should not be regarded as investigational or for research. Performed By: #### 3 0471-7 ####[facility] LABCLIA [id number] [place] [address] [place] Basic metabolic 2000 panelon 12-05-2023 Anion gap [Moles/Vol] 14 mmol/L Normal 9-18 [facility] Comment on above: Order Comment: Speci men Type: BLOOD SPECIMENOrdering Facility: [facility] Address: [address] [place] [address] Performed By: #### 2 4321-2 ####[facility] [id number] [place] [address] [place] Calcium [Mass/Vol] 9.0 mg/dL Normal 8.5-10.2 [facility] Comment on above: Order Comment: Speci men Type: BLOOD SPECIMENOrdering Facility: [facility] Address: [address] [place] [address] Performed By: #### 2 4321-2 ####[facility]ORATORYCLIA [id number] [place] [address] [place] Chloride [Moles/Vol] 96 mmol/L Low 97-105 [facility] Comment on above: Order Comment: Speci men Type: BLOOD SPECIMENOrdering Facility: [facility] Address: [address] [place] [address] Performed By: #### 2 4321-2 ####[facility]ORYCLIA [id number] [address] STATES [facility] CO2 [Moles/Vol] 27 mmol/L Normal 22-30 [facility] Comment on above: Order Comment: Speci men Type: BLOOD SPECIMENOrdering Facility: [facility] Address: [address] [place] [address] Performed By: #### 2 4321-2 ####[facility]ORYCLIA [id number] [address] Creatinine [Mass/Vol] 0.96 mg/dL Normal 0.58-0.96 [facility] Comment on above: Order Comment: Speci men Type: BLOOD SPECIMENOrdering Facility: [facility] Address: [address] [place] [address] Performed By: #### 2 4321-2 ####[facility] [id number] [address] Creatinine and Glomerular filtration rate.predicted panel (S/P/Bld) 61 mL/min/1.73m??? Normal >=60 [facility] Comment on above: Order Comment: Speci men Type: BLOOD SPECIMENOrdering Facility: [facility] [facility] Address: [address] [place] [address] Result Comment: Whitney mated Glomerular Filtration Rate (eGFR) is calculated using the 2020 CKD-EPI creatinine equation. This equation utilizes serum creatinine, sex, and age as parameters. The creatinine assay has traceable calibration to isotope dilution-mass spectrometry. Refer to KDIGO guidelines for clinical interpretation. In patients with unstable renal function, e.g. those with acute kidney injury, the eGFR may not accurately reflect actual GFR. Performed By: #### 2 4321-2 ####[facility]ATORYCLIA [id number] [address] Glucose [Mass/Vol] 200 mg/dL High 74-99 [facility] Comment on above: Order Comment: Speci men Type: BLOOD SPECIMENOrdering Facility: [facility] Address: [address] [place] [address] Result Comment: The [place] Diabetes Association (ADA) provides guidance for cutoff values for fasting glucose and random glucose. The ADA defines fasting as no caloric intake for at least 8 hours. Fasting plasma glucose results between 100 to 125 mg/dL indicate increased risk for diabetes (prediabetes). Fasting plasma glucose results greater than or equal to 126 mg/dL meet the criteria for diagnosis of diabetes. In the absence of unequivocal hyperglycemia, results should be confirmed by repeat testing. In a patient with classic symptoms of hyperglycemia or hyperglycemic crisis, random plasma glucose results greater than or equal to 200 mg/dL meet the criteria for diagnosis of diabetes. Reference: Standards of Medical Care in Diabetes 2016, [place] Diabetes Association. Diabetes Care. 2016.39(Suppl 1). Performed By: #### 2 4321-2 ####[facility]ATORYCLIA [id number] [address] [place] Potassium [Moles/Vol] 4.6 mmol/L Normal 3.7-5.1 [facility] Comment on above: Order Comment: Speci men Type: BLOOD SPECIMENOrdering Facility: [facility] Address: [address] [place] [address] Performed By: #### 2 4321-2 ####[facility]ATORYCLIA [id number] [address] STATES [facility] Sodium [Moles/Vol] 137 mmol/L Normal 136-144 [facility] Comment on above: Order Comment: Speci men Type: BLOOD SPECIMENOrdering Facility: [facility] Address: [address] [place] [address] Performed By: #### 2 4321-2 ####[facility]ATORYCLIA [id number] [address] STATES [facility] Urea nitrogen [Mass/Vol] 15 mg/dL Normal 7-21 [facility] Comment on above: Order Comment: Speci men Type: BLOOD SPECIMENOrdering Facility: [facility] Address: [address] [place] [address] Performed By: #### 2 4321-2 ####[facility]ATORYCLIA [id number] [place] [address] [place] CASE MGT INIT Isauro 2023 CASE MGT INIT MIRACLE HNO ID: [id number] Author: JOSTIN ROCHE RN Service: ? Author Type: Registered Nurse Type: Care Mgt Initial Assessment Filed: 12/05/2023 13:37 Note Text: CARE MANAGEMENT: ASSESSMENT AND DISCHARGE PLAN SERVICE DATE: December 05, 2023 SERVICE TIME: 1331 PCP: Antonio Vaughn DO Primary Contact: Extended Emergency Contact Information Primary Emergency Contact: Ed Lopes Mobile Relation: Son Secondary Emergency Contact: Divya Dorantes Mobile Relation: Sister Admission Status: Inpatient Insurance Provider: [facility] DUAL COMPLETE HMO POS SNP Discharge Planning requested by: Per Department Practice Potential Transition Plans Retirement Facility/Intermediate Care Facility Advance Directives Current Advance Directive: Health Care Power of Full Stack Software Engineer In Chart: No Current Living Arrangements and Support Lives with: Alone Type of Residence: Private Residence (Apartment or Condo) Does the patient have to climb stairs at home?: No 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 No Discharge Planning Participant(s): Patient Patient/Family Comments: Caregiver Assessment: Caregiver is ready, willing and able to meet the patient's needs as recommended by the inter-professional team: Other: See Comment (TBD) Transport at Discharge: Needs Prior to Discharge: Needs Prior to Discharge: To Be Determined;Accepting Facility;Bed Availability;Facility or Agency Choices;Insurance Authorization;OT/PT Evaluation;Discharge Transportation Post-Acute Discharge Plan: Met with patient at bedside. 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 Pt also receives meals from [employer]. +PCP, +DME, +rx. Pt recently [facility] from [facility] (admission 10/24-). Pt states that she wants to go home rather than SNF. Therapy evaluations ordered and pending. Anticipate likely need for SNF. If SNF recommended, will need FOC, auth, 7000, and cot transportation. CM will continue to follow. SIGNATURE: Jostin Roche RN PATIENT NAME: Ana Lopes DATE: December 05, 2023 TIME: 1:31 PM CONTACT #: [phone] Normal [facility] CBC panel Auto (Bld)on 12-04 Erythrocyte distribution width (RBC) [Ratio] 13.7 % Normal 11.5-15.0 [facility] Comment on above: Order Comment: Speci men Type: BLOOD SPECIMENOrdering Facility: [facility] Address: [address] [place] [address] Performed By: #### 5 5454-3 ####[facility] LABCLIA [id number] [place] [address] [place]#### 48518-8 ####[facility]ORATORYCLIA [id number] [place] [address] [place] Hematocrit (Bld) [Volume fraction] 42.7 % Normal 36.0-46.0 [facility] Comment on above: Order Comment: Speci men Type: BLOOD SPECIMENOrdering Facility: [facility] Address: [address] [place] [address] Performed By: #### 5 5454-3 ####[facility] LABCLIA [id number] [place] [address] [place]#### 00146-5 ####[facility]ATORYCLIA [id number] [place] [address] [place] Hemoglobin (Bld) [Mass/Vol] 13.8 g/dL Normal 11.5-15.5 [facility] Comment on above: Order Comment: Speci men Type: BLOOD SPECIMENOrdering Facility: [facility] Address: [address] [place] [address] Performed By: #### 5 5454-3 ####[facility] LABCLIA [id number] [address]#### 31543-5 ####[facility]ATORYCLIA [id number] [address] MCH (RBC) [Entitic mass] 30.9 pg Normal 26.0-34.0 [facility] Comment on above: Order Comment: Speci men Type: BLOOD SPECIMENOrdering Facility: [facility] Address: [address] [place] [address] Performed By: #### 5 5454-3 ####[facility] LABCLIA [id number] [address] [place]#### 10162-2 ####[facility]ATORYCLIA [id number] [address] MCHC (RBC) [Mass/Vol] 32.3 g/dL Normal 30.5-36.0 [facility] Comment on above: Order Comment: Speci men Type: BLOOD SPECIMENOrdering Facility: [facility] Address: [address] [place] [address] Performed By: #### 5 5454-3 ####[facility] LABCLIA [id number] [address]#### 79922-4 ####[facility]ATORYCLIA [id number] [address] [place] MCV (RBC) [Entitic vol] 95.5 fL Normal 80.0-100.0 [facility] Comment on above: Order Comment: Speci men Type: BLOOD SPECIMENOrdering Facility: [facility] Address: [address] [place] [address] Performed By: #### 5 5454-3 ####[facility] LABCLIA [id number] [place] [address] [place]#### 05882-1 ####[facility]ATORYCLIA [id number] [address] [place] Nucleated RBC (Bld) [#/Vol] 10*3/uL Normal <0.01 [facility] Comment on above: Order Comment: Speci men Type: BLOOD SPECIMENOrdering Facility: [facility] Address: [address] [place] [address] Performed By: #### 5 5454-3 ####[facility] LABCLIA [id number] [place] [address] [place]#### 93691-1 ####[facility]ATORYCLIA [id number] [address] STATES [facility] Platelet mean volume (Bld) [Entitic vol] 9.2 fL Normal 9.0-12.7 [facility] Comment on above: Order Comment: Speci men Type: BLOOD SPECIMENOrdering Facility: [facility] Address: [address] [place] [address] Performed By: #### 5 5454-3 ####[facility] LABCLIA [id number] [address] [place]#### 26570-9 ####[facility]ATORYCLIA [id number] [address] [place] Platelets (Bld) [#/Vol] 245 10*3/uL Normal 150-400 [facility] Comment on above: Order Comment: Speci men Type: BLOOD SPECIMENOrdering Facility: [facility] Address: [address] [place] [address] Performed By: #### 5 5454-3 ####[facility] LABCLIA [id number] [place] [address] [place]#### 11394-0 ####[facility]ATORYCLIA [id number] [place] [address] [place] RBC (Bld) [#/Vol] 4.47 10*6/uL Normal 3.90-5.20 [facility] Comment on above: Order Comment: Speci men Type: BLOOD SPECIMENOrdering Facility: [facility] Address: [address] [place] [address] Performed By: #### 5 5454-3 ####[facility] LABCLIA [id number] [place] [address] [place]#### 64843-1 ####[facility]ATORYCLIA [id number] [address] [place] WBC (Bld) [#/Vol] 9.26 10*3/uL Normal 3.70-11.00 [facility] Comment on above: Order Comment: Speci men Type: BLOOD SPECIMENOrdering Facility: [facility] Address: [address] [place] [address] Performed By: #### 5 5454-3 ####[facility] LABCLIA [id number] [place] [address] [place]#### 18014-0 ####[facility]ATORYCLIA [id number] [address] [place] Gas and Carbon monoxide pane l (BldV)on 12-05-2023 Base excess Calc (BldV) [Moles/Vol] 2 mmol/L Normal 0-2 [facility] Comment on above: Order Comment: Speci men Type: VENOUS BLOOD SPECIMENOrdering Facility: [facility] Address: [facility] [place] [address] Performed By: #### 2 4344-4 ####[facility]ATORYCLIA [id number] [address] [place] Body temperature 99.32 [degF] Normal [facility] Comment on above: Order Comment: Speci men Type: VENOUS BLOOD SPECIMENOrdering Facility: [facility] Address: [address] [place] [address] Performed By: #### 2 4344-4 ####[facility]ATORYCLIA [id number] [address] Calcium.ionized (BldV) [Mass/Vol] 1.04 mmol/L Low 1.08-1.30 [facility] Comment on above: Order Comment: Speci men Type: VENOUS BLOOD SPECIMENOrdering Facility: [facility] Address: [address] [place] [address] Performed By: #### 2 4344-4 ####[facility]ATORYCLIA [id number] [address] Calcium.ionized adjusted to pH 7.4 (BldA) [Moles/Vol] 0.99 mmol/L Low 1.08-1.30 [facility] Comment on above: Order Comment: Speci men Type: VENOUS BLOOD SPECIMENOrdering Facility: [facility] Address: [address] [place] [address] Performed By: #### 2 4344-4 ####[facility]ORATORYCLIA [id number] [address] OF [facility] Carboxyhemoglobin (BldV) [Mass fraction] 1.9 % Normal 0.0-2.0 [facility] Comment on above: Order Comment: Speci men Type: VENOUS BLOOD SPECIMENOrdering Facility: [facility] Address: [address] [place] [address] Result Comment: Carb oxyhemoglobin Reference Range for Smokers: 2.0-8.0% Performed By: #### 2 4344-4 ####[facility]ATORYCLIA [id number] [address] OF [facility] Chloride [Moles/Vol] 108 mmol/L Normal 102-109 [facility] Comment on above: Order Comment: Speci men Type: VENOUS BLOOD SPECIMENOrdering Facility: [facility] Address: [address] [place] [address] Performed By: #### 2 4344-4 ####[facility]ATORYCLIA [id number] [place], [place] [address] [place] [address] [place] CO2 (BldV) [Partial pressure] 57 mm[Hg] High 42-55 [facility] Comment on above: Order Comment: Speci men Type: VENOUS BLOOD SPECIMENOrdering Facility: [facility] Address: [address] [place] [address] Performed By: #### 2 4344-4 ####[facility]ATORYCLIA [id number] [address] [place] CO2 adjusted to patient's actual temperature (BldV) [Partial pressure] 58 mmHg High 42-55 [facility] Comment on above: Order Comment: Speci men Type: VENOUS BLOOD SPECIMENOrdering Facility: [facility] Address: [address] [place] [address] Performed By: #### 2 4344-4 ####[facility]ATORYCLIA [id number] [address] [place] Glucose [Mass/Vol] 158 mg/dL High 60-105 [facility] Comment on above: Order Comment: Speci men Type: VENOUS BLOOD SPECIMENOrdering Facility: [facility] Address: [address] [place] [address] Performed By: #### 2 4344-4 ####[facility]ORYCLIA [id number] [address] [place] HCO3 (Bld) [Moles/Vol] 28 mmol/L Normal 24-28 [facility] Comment on above: Order Comment: Speci men Type: VENOUS BLOOD SPECIMENOrdering Facility: [facility] Address: [address] [place] [address] Performed By: #### 2 4344-4 ####[facility]ATORYCLIA [id number] [address] [place] Hematocrit (Bld) [Volume fraction] 38.6 % Normal 36.0-46.0 [facility] Comment on above: Order Comment: Speci men Type: VENOUS BLOOD SPECIMENOrdering Facility: [facility] Address: [address] [place] [address] Performed By: #### 2 4344-4 ####[facility]ATORYCLIA [id number] [address] [place] Hemoglobin (Bld) [Mass/Vol] 12.6 g/dL Normal 11.5-15.5 [facility] Comment on above: Order Comment: Speci men Type: VENOUS BLOOD SPECIMENOrdering Facility: [facility] Address: [address] [place] [address] Performed By: #### 2 4344-4 ####[facility]ATORYCLIA [id number] [address] [place] Lactate [Moles/Vol] 1.7 mmol/L Normal 0.5-2.2 [facility] Comment on above: Order Comment: Speci men Type: VENOUS BLOOD SPECIMENOrdering Facility: [facility] Address: [address] [place] [address] Performed By: #### 2 4344-4 ####[facility]ATORYCLIA [id number] [address] [place] Methemoglobin (Bld) [Mass fraction] 0.2 % Normal 0.0-1.5 [facility] Comment on above: Order Comment: Speci men Type: VENOUS BLOOD SPECIMENOrdering Facility: [facility] Address: [address] [place] [address] Performed By: #### 2 4344-4 ####[facility]ATORYCLIA [id number] [address] O2 THERAPY NC = Nasal Cannula Normal [facility] Comment on above: Order Comment: Speci men Type: VENOUS BLOOD SPECIMENOrdering Facility: [facility] Address: [address] [place] [address] Result Comment: Joanna rivero Performed By: #### 2 4344-4 ####[facility]ATORYCLIA [id number] [address] [place] Oxygen (BldV) [Partial pressure] 41 mm[Hg] Normal 35-45 [facility] Comment on above: Order Comment: Speci men Type: VENOUS BLOOD SPECIMENOrdering Facility: [facility] Address: [address] [place] [address] Performed By: #### 2 4344-4 ####[facility]ORATORYCLIA [id number] [address] [place] Oxygen adjusted to patient's actual temperature (BldV) [Partial pressure] 42 mmHg Normal 35-45 [facility] Comment on above: Order Comment: Speci men Type: VENOUS BLOOD SPECIMENOrdering Facility: [facility] Address: [address] [place] [address] Performed By: #### 2 4344-4 ####[facility]ORATORYCLIA [id number] [address] [place] Oxygen saturation in Venous blood 67 % Normal 60-85 [facility] Comment on above: Order Comment: Speci men Type: VENOUS BLOOD SPECIMENOrdering Facility: [facility] Address: [address] [place] [address] Performed By: #### 2 4344-4 ####[facility]ATORYCLIA [id number] [address] [place] Oxyhemoglobin (BldV) [Mass fraction] 66 % Normal 60-85 [facility] Comment on above: Order Comment: Speci men Type: VENOUS BLOOD SPECIMENOrdering Facility: [facility] Address: [address] [place] [address] Performed By: #### 2 4344-4 ####[facility]ORATORYCLIA [id number] [place] [address] [place] pH (BldV) 7.32 [pH] Normal 7.32-7.42 [facility] Comment on above: Order Comment: Speci men Type: VENOUS BLOOD SPECIMENOrdering Facility: [facility] Address: [address] [place] [address] Performed By: #### 2 4344-4 ####[facility]ORATORYCLIA [id number] [address] [place] pH adjusted to patient's actual temperature (BldV) 7.32 Normal 7.32-7.42 [facility] Comment on above: Order Comment: Speci men Type: VENOUS BLOOD SPECIMENOrdering Facility: [facility] Address: [address] [place] [address] Performed By: #### 2 4344-4 ####[facility]ATORYCLIA [id number] [place] [address] [place] Potassium [Moles/Vol] 3.7 mmol/L Normal 3.5-5.0 [facility] Comment on above: Order Comment: Speci men Type: VENOUS BLOOD SPECIMENOrdering Facility: [facility] Address: [address] [place] [address] Performed By: #### 2 4344-4 ####[facility]ATORYCLIA [id number] [address] [place] Sodium [Moles/Vol] 137 mmol/L Normal 136-144 [facility] Comment on above: Order Comment: Speci men Type: VENOUS BLOOD SPECIMENOrdering Facility: [facility] Address: [address] [place] [address] Performed By: #### 2 4344-4 ####[facility]ORATORYCLIA [id number] [address] [place] HbA1c (Bld)on 12-05-2023 Average glucose Estimated from glycated hemoglobin (Bld) [Mass/Vol] 134 mg/dL Normal [facility] Comment on above: Order Comment: Speci men Type: BLOOD SPECIMENOrdering Facility: [facility] Address: [address] [place] [address] Result Comment: eAG: (Estimated average glucose) is a calculated value from HgbA1c and is distribution sales representative of the average blood glucose level in the last 2-3 month period. Performed By: #### 5 5454-3 ####[facility] LABCLIA [id number] [facility] [id number] [address] [place]#### 42655-6 ####[facility]ORATORYCLIA [id number] [place] [address] [place] HbA1c (Bld) [Mass fraction] 6.3 % High 4.3-5.6 [facility] Comment on above: Order Comment: Speci men Type: BLOOD SPECIMENOrdering Facility: [facility] Address: [address] [place] [address] Result Comment: [place] Diabetes Association guidelines indicate that patients with HgbA1c in the range 5.7-6.4% are at increased risk for development of diabetes, and intervention by lifestyle modification may be beneficial. HgbA1c greater or equal to 6.5% is considered diagnostic of diabetes. Performed By: #### 5 5454-3 ####[facility] LABCLIA [id number] [address] [place]#### 81625-9 ####[facility]ORATORYCLIA [id number] [address] [place] NURSING PROGon 12-05-2023 NURSING PROG HNO ID: [id number] Author: JEANNA GARZON, BLANCA Service: Nursing Author Type: Registered Nurse Type: Nursing Progress Note Filed: 12/05/2023 01:14 Note Text: Dr. Raul Green came in to see patient. Pt's HR 105; RR 32 which triggers sepsis alert. He ordered stat VBG; Lasix 40 mg IV and duoneb treatment x 1 now. Called Tiago from Respiratory. Normal [facility] NUTRITIONon 12-05-2023 NUTRITION HNO ID: [id number] Author: LEYDA VILLASENOR RD Service: Nutrition Therapy Author Type: Registered Dietitian Type: Nutrition Filed: 12/05/2023 14:13 Note Text: NUTRITION THERAPY SCREEN NOTE SERVICE DATE: 12/05/2023 SERVICE TIME: 10:50 AM Care Plan: Change diet to carbohydrate controlled, with heart healthy Discharge Recommendations: Diet Diet: carbohydrate controlled, heart healthy Monitor and Evaluation: Meet greater than 75% of estimated needs Intake History: Nutrition Intake Prior to Admission: Greater than 75% estimated energy needs greater than or equal to 3 months Current Nutrition Intake: Less than 75% estimated energy needs Current Intake Over time: (today, ate most of breakfast except did not eat eggs because she does not like eggs, and will noted this for her in dietary meal order system.) Diet Orders (From admission, onward) Start Ordered 12/04/231829 DIET HEART HEALTHY START NOW Question: Heart Healthy Answer: 4 GM SODIUM (LOW SAT FAT) 12/04/231827 Anthropometrics: Height: 157.5 cm (5' 2") (per patient-) Weight: 109.2 kg (240 lb 11.9 oz) Usual Weight: 112.5 kg (248 lb) 11/12/2023- at [facility] Usual Weight Obtained From: Chart Review (per patient reported before she ever went into a [facility] her weight was 200 lbs.) Weight Change: Weight gain (and suspect bed weight from today of 109.2 kg is not accurate, and bed weight re-taken at this Dietitian visit and bed weight was 108.8 kg.) MNT Billing: $ Initial Assessment: 1-15 minutes SIGNATURE: Leyda Villasenor RD PATIENT NAME: Ana Lopes DATE: December 05, 2023 TIME: 10:50 AM Normal [facility] XR CHEST 2V FRONTAL/LATon XR CHEST 2V FRONTAL/LAT * * *Final Repor t* * * DATE OF EXAM: Dec 05 2023 7:48AM AKX [id number] - XR CHEST 2V FRONTAL/LAT / PROCEDURE REASON: Cough * * * * Physician Interpretation * * * * EXAMINATION: CHEST RADIOGRAPH (2 VIEW FRONTAL and LATERAL) CLINICAL HISTORY: Cough, Interstitial lung disease MQ: XC2_6 EXAM DATE/TIME: 12/05/2023 7:48 AM COMPARISON: 12/04/2023 RESULT: Lines, tubes, and devices: Stable pacemaker Lungs and pleura: Worsening bilateral perihilar infiltrate or edema. Also, there is increasing diffuse interstitial infiltrate or edema. Cardiomediastinal silhouette: Stable cardiomediastinal silhouette. Bones and soft tissues: Unremarkable. IMPRESSION: Increasing bilateral perihilar and interstitial infiltrate or edema. Director Patient: RAY Transcribe Date/Time: Dec 05 2023 7:50A Dictated by : DENY DELCID MD This examination was interpreted and the report reviewed and electronically signed by: DENY DELCID MD on Dec 05 2023 7:52AM EST [id number] Normal [facility] ALLIED HEALTHon 12-04-2023 ALLIED HEALTH HNO ID: [id number] Author: MARIA D MURPHY RT(R) Service: Radiology Author Type: Technologist Type: Allied Health Filed: 12/04/2023 11:50 Note Text: Radiology Service Progress Note PATIENT NAME: Ana Lopes DATE OF SERVICE: December 04, 2023 TIME: 11:50 AM PATIENT IDENTITY VERIFICATION COMPLETED USING TWO (2) IDENTIFIERS: Name and Date of confirmed by patient verbally and Name and Date of confirmed by identification band. FALL SCREENING: Has the patient had 2 falls in the last year or 1 fall with injury or currently using an Ambulatory Assistive Device (Walker, Cane, Wheelchair, Crutches, etc.)? Emergency Room Patient: Screened in ED PATIENT GENDER DATA: Female. status: : No status: NO. PATIENT RELEVANT IMPLANT DATA REVIEWED: Not Applicable PATIENT PRESENTS WITH AN IMPLANTABLE OR ATTACHED MARGARINE CHURN OPERATOR: No RADIOLOGY DEPARTMENT: CT; Exam(s) Completed: Brain PERIPHERAL IV DATA: Not applicable SIGNED BY: RT Destini(R) December 04, 2023 11:50 AM Normal [facility] CBC W Auto Differential pane l (Bld)on 12-04-2023 Basophils (Bld) [#/Vol] 0.08 10*3/uL Normal <0.11 [facility] Comment on above: Order Comment: Speci men Type: URINE SPECIMEN Ordering Facility: [facility] Address: [address] [place] [address] Performed By: #### 2 4356-8 #### [facility] CLIA [id number] [address] STATES OF [facility] Basophils/100 WBC (Bld) 1.0 % Normal A [facility] Comment on above: Order Comment: Speci men Type: URINE SPECIMEN Ordering Facility: [facility] Address: [address] [place] [address] Performed By: #### 2 4356-8 #### [facility] CLIA [id number] [address] [place] Differential cell count method Nom (Bld) Auto Normal [facility] Comment on above: Order Comment: Speci men Type: URINE SPECIMEN Ordering Facility: [facility] Address: [address] [place] [address] Performed By: #### 2 4356-8 #### [facility] CLIA [id number] [address] Eosinophils (Bld) [#/Vol] 0.17 10*3/uL Normal <0.46 [facility] Comment on above: Order Comment: Speci men Type: URINE SPECIMEN Ordering Facility: [facility] Address: [address] [place] [address] Performed By: #### 2 4356-8 #### [facility] CLIA [id number] [address] Eosinophils/100 WBC (Bld) 2.2 % Normal [facility] Comment on above: Order Comment: Speci men Type: URINE SPECIMEN Ordering Facility: [facility] Address: [address] [place] [address] Performed By: #### 2 4356-8 #### [facility] CLIA [id number] [address] Erythrocyte distribution width (RBC) [Ratio] 13.1 % Normal 11.5-15.0 [facility] Comment on above: Order Comment: Speci men Type: URINE SPECIMEN Ordering Facility: [facility] Address: [address] [place] [address] Performed By: #### 2 4356-8 #### [facility] CLIA [id number] [address] Hematocrit (Bld) [Volume fraction] 43.8 % Normal 36.0-46.0 [facility] Comment on above: Order Comment: Speci men Type: URINE SPECIMEN Ordering Facility: [facility] Address: [facility] [place] [address] Performed By: #### 2 4356-8 #### [facility] CLIA [id number] [address] [place] Hemoglobin (Bld) [Mass/Vol] 14.0 g/dL Normal 11.5-15.5 [facility] Comment on above: Order Comment: Speci men Type: URINE SPECIMEN Ordering Facility: [facility] Address: [address] [place] [address] Performed By: #### 2 4356-8 #### [facility] CLIA [id number] 1 [place] [address] [place] Immature granulocytes (Bld) [#/Vol] 0.03 10*3/uL Normal <0.10 [facility] Comment on above: Order Comment: Speci men Type: URINE SPECIMEN Ordering Facility: [facility] Address: [address] [place] [address] Performed By: #### 2 4356-8 #### [facility] CLIA [id number] [address] [place] Immature granulocytes/100 WBC (Bld) 0.4 % Normal [facility] Comment on above: Order Comment: Speci men Type: URINE SPECIMEN Ordering Facility: [facility] Address: [address] [place] [address] Performed By: #### 2 4356-8 #### [facility] CLIA [id number] [address] [place] Lymphocytes (Bld) [#/Vol] 1.53 10*3/uL Normal 1.00-4.00 [facility] Comment on above: Order Comment: Speci men Type: URINE SPECIMEN Ordering Facility: [facility] Address: [address] [place] [address] Performed By: #### 2 4356-8 #### [facility] CLIA [id number] [address] [place] Lymphocytes/100 WBC (Bld) 19.4 % Normal [facility] Comment on above: Order Comment: Speci men Type: URINE SPECIMEN Ordering Facility: [facility] Address: [facility] [place] [address] Performed By: #### 2 4356-8 #### [facility] CLIA [id number] [address] MCH (RBC) [Entitic mass] 30.7 pg Normal 26.0-34.0 [facility] Comment on above: Order Comment: Speci men Type: URINE SPECIMEN Ordering Facility: [facility] Address: [address] [place] [address] Performed By: #### 2 4356-8 #### [facility] CLIA [id number] [address] MCHC (RBC) [Mass/Vol] 32.0 g/dL Normal 30.5-36.0 [facility] Comment on above: Order Comment: Speci men Type: URINE SPECIMEN Ordering Facility: [facility] Address: [address] [place] [address] Performed By: #### 2 4356-8 #### [facility] CLIA [id number] [address] MCV (RBC) [Entitic vol] 96.1 fL Normal 80.0-100.[address] [facility] Comment on above: Order Comment: Speci men Type: URINE SPECIMEN Ordering Facility: [facility] Address: [address] [place] [address] Performed By: #### 2 4356-8 #### [facility] CLIA [id number] [address] Monocytes (Bld) [#/Vol] 0.72 10*3/uL Normal <0.87 [facility] Comment on above: Order Comment: Speci men Type: URINE SPECIMEN Ordering Facility: [facility] Address: [address] [place] [address] Performed By: #### 2 4356-8 #### [facility] CLIA [id number] [address] Monocytes/100 WBC (Bld) 9.1 % Normal [facility] Comment on above: Order Comment: Speci men Type: URINE SPECIMEN Ordering Facility: [facility] Address: [address] [place] [address] Performed By: #### 2 4356-8 #### [facility] CLIA [id number] [address] [place] Neutrophils (Bld) [#/Vol] 5.37 10*3/uL Normal 1.45-7.50 [facility] Comment on above: Order Comment: Speci men Type: URINE SPECIMEN Ordering Facility: [facility] Address: [address] [place] [address] Performed By: #### 2 4356-8 #### [facility] CLIA [id number] [address] Neutrophils/100 WBC (Bld) 67.9 % Normal [facility] Comment on above: Order Comment: Speci men Type: URINE SPECIMEN Ordering Facility: [facility] Address: [address] [place] [address] Performed By: #### 2 4356-8 #### [facility] CLIA [id number] [address] [place] Nucleated RBC (Bld) [#/Vol] 10*3/uL Normal <0.01 [facility] Comment on above: Order Comment: Speci men Type: URINE SPECIMEN Ordering Facility: [facility] Address: [address] [place] [address] Performed By: #### 2 4356-8 #### [facility] CLIA [id number] [address] [place] Nucleated RBC/100 WBC (Bld) [Ratio] 0.0 /100 WBC Normal [facility] Comment on above: Order Comment: Speci men Type: URINE SPECIMEN Ordering Facility: [facility] Address: [address] [place] [address] Performed By: #### 2 4356-8 #### [facility] CLIA [id number] [address] [place] Platelet mean volume (Bld) [Entitic vol] 10.0 fL Normal 9.0-12.7 [facility] Comment on above: Order Comment: Speci men Type: URINE SPECIMEN Ordering Facility: [facility] Address: [address] [place] [address] Performed By: #### 2 4356-8 #### [facility] CLIA [id number] [address] Platelets (Bld) [#/Vol] 228 10*3/uL Normal 150-400 [facility] Comment on above: Order Comment: Speci men Type: URINE SPECIMEN Ordering Facility: [facility] Address: [address] [place] [address] Performed By: #### 2 4356-8 #### [facility] CLIA [id number] [address] [place] [facility] RBC (Bld) [#/Vol] 4.56 10*6/uL Normal 3.90-5.20 [facility] Comment on above: Order Comment: Speci men Type: URINE SPECIMEN Ordering Facility: [facility] Address: [address] [place] [address] Performed By: #### 2 4356-8 #### [facility] CLIA [id number] [address] WBC (Bld) [#/Vol] 7.90 10*3/uL Normal 3.70-11.00 [facility] Comment on above: Order Comment: Speci men Type: URINE SPECIMEN Ordering Facility: [facility] Address: [address] [place] [address] Performed By: #### 2 4356-8 #### [facility] CLIA [id number] [address] CK SerPl-cCncon 12-04-2023 CK [Catalytic activity/Vol] 92 U/L Normal 42-196 [facility] Comment on above: Order Comment: Speci men Type: BLOOD SPECIMENOrdering Facility: [facility] Address: [address] [place] [address] Performed By: #### S PNAG #### [facility] CLIA [id number] [address] [place] OF [facility] CT BRAIN WO IVCONon 12-04-[address] BRAIN WO IVCON * * *Final Report* * * DATE OF EXAM: Dec 04 2023 11:53AM [facility] 0504 - CT BRAIN WO IVCON / PROCEDURE REASON: Mental status change, unknown cause * * * * Physician Interpretation * * * * EXAMINATION: CT BRAIN WO IVCON CLINICAL HISTORY: Change in mental status TECHNIQUE: Serial axial images without IV contrast were obtained from the vertex to the foramen magnum. MQ: CTBWO_3 CT Radiation dose: Integrated Dose-Length Product (DLP) for this visit = 678 mGy*cm CT Dose Reduction Employed: Iterative recon COMPARISON: None. RESULT: Localizer images: No additional findings. Post-operative change: None. Acute change: No evidence of an acute infarct or other acute parenchymal process. Hemorrhage: No evidence of acute intracranial hemorrhage. ECASS hemorrhagic transformation score: Not Applicable Mass Lesion / Mass Effect: There is no evidence of an intracranial mass or extraaxial fluid collection. No significant mass effect. Chronic change: Scattered patchy foci of low attenuation are present within supratentorial white matter which is a nonspecific finding but likely represents mild microvascular ischemia. Senescent calcifications noted in the basal ganglia and dentate nucleus of the cerebellum bilaterally. Parenchyma: There is no significant volume loss. The brain parenchyma is otherwise within normal limits for age. Ventricles: The ventricles are within normal limits of size and configuration for age. Paranasal sinuses and skull base: Mild mucosal thickening in the sphenoid sinuses. Mastoid air cells are clear. The skull base and imaged soft tissues are unremarkable. IMPRESSION: No CT evidence of acute intracranial pathology. Director Patient: RAY Transcribe Date/Time: Dec 04 2023 12:43P Dictated by : TACOS VERDIN MD This examination was interpreted and the report reviewed and electronically signed by: TCAOS VERDIN MD on Dec 04 2023 12:47PM EST [id number] Normal [facility] Comprehensive metabolic 2000 panelon 12-04-2023 Albumin [Mass/Vol] 2.7 g/dL Low 3.9-4.9 [facility] Comment on above: Order Comment: Speci men Type: URINE SPECIMEN Ordering Facility: [facility] Address: [address] [place] [address] Performed By: #### 2 4356-8 #### [facility] CLIA [id number] [address] ALP [Catalytic activity/Vol] 92 U/L Normal 34-123 [facility] Comment on above: Order Comment: Speci men Type: URINE SPECIMEN Ordering Facility: [facility] Address: [address] [place] [address] Performed By: #### 2 4356-8 #### [facility] CLIA [id number] [address] [place] ALT With P-5'-P [Catalytic activity/Vol] 10 U/L Normal 7-38 [facility] Comment on above: Order Comment: Speci men Type: URINE SPECIMEN Ordering Facility: [facility] Address: [address] [place] [address] Performed By: #### 2 4356-8 #### [facility] CLIA [id number] [address] [place] [facility] Anion gap [Moles/Vol] 9 mmol/L Normal 9-18 [facility] Comment on above: Order Comment: Speci men Type: URINE SPECIMEN Ordering Facility: [facility] Address: [address] [place] [address] Performed By: #### 2 4356-8 #### [facility] CLIA [id number] [address] AST With P-5'-P [Catalytic activity/Vol] 17 U/L Normal 13-35 [facility] Comment on above: Order Comment: Speci men Type: URINE SPECIMEN Ordering Facility: [facility] Address: [address] [place] [address] Performed By: #### 2 4356-8 #### [facility] CLIA [id number] [address] [place] Bilirubin [Mass/Vol] 0.2 mg/dL Normal 0.2-1.3 [facility] Comment on above: Order Comment: Speci men Type: URINE SPECIMEN Ordering Facility: [facility] Address: [address] [place] [address] Performed By: #### 2 4356-8 #### [facility] CLIA [id number] [address] [place] Calcium [Mass/Vol] 7.6 mg/dL Low 8.5-10.2 [facility] Comment on above: Order Comment: Speci men Type: URINE SPECIMEN Ordering Facility: [facility] Address: [address] [place] [address] Performed By: #### 2 4356-8 #### [facility] CLIA [id number] 1 [place] [address] [place] Chloride [Moles/Vol] 107 mmol/L High 97-105 [facility] Comment on above: Order Comment: Speci men Type: URINE SPECIMEN Ordering Facility: [facility] Address: [address] [place] [address] Performed By: #### 2 4356-8 #### [facility] CLIA [id number] 1 [place] [address] [place] CO2 [Moles/Vol] 24 mmol/L Normal 22-30 [facility] Comment on above: Order Comment: Speci men Type: URINE SPECIMEN Ordering Facility: [facility] Address: [address] [place] [address] Performed By: #### 2 4356-8 #### [facility] CLIA [id number] 1 [place] [address] [place] Creatinine [Mass/Vol] 0.68 mg/dL Normal 0.58-0.96 [facility] Comment on above: Order Comment: Speci men Type: URINE SPECIMEN Ordering Facility: [facility] Address: [address] [place] [address] Performed By: #### 2 4356-8 #### [facility] CLIA [id number] [address] [place] Creatinine and Glomerular filtration rate.predicted panel (S/P/Bld) 90 mL/min/1.73m??? Normal >=60 [facility] Comment on above: Order Comment: Speci men Type: URINE SPECIMEN Ordering Facility: [facility] Address: [address] [place] [address] Result Comment: Whitney mated Glomerular Filtration Rate (eGFR) is calculated using the 2020 CKD-EPI creatinine equation. This equation utilizes serum creatinine, sex, and age as parameters. The creatinine assay has traceable calibration to isotope dilution-mass spectrometry. Refer to KDIGO guidelines for clinical interpretation. In patients with unstable renal function, e.g. those with acute kidney injury, the eGFR may not accurately reflect actual GFR. Performed By: #### 2 4356-8 #### [facility] CLIA [id number] 1 [place] [address] [place] Glucose [Mass/Vol] 177 mg/dL High 74-99 [facility] Comment on above: Order Comment: Specej men Type: URINE SPECIMEN Ordering Facility: [facility] Address: [address] [place] [address] Result Comment: The [place] [employer] (ADA) provides guidance for cutoff values for fasting glucose and random glucose. The ADA defines fasting as no caloric intake for at least 8 hours. Fasting plasma glucose results between 100 to 125 mg/dL indicate increased risk for diabetes (prediabetes). Fasting plasma glucose results greater than or equal to 126 mg/dL meet the criteria for diagnosis of diabetes. In the absence of unequivocal hyperglycemia, results should be confirmed by repeat testing. In a patient with classic symptoms of hyperglycemia or hyperglycemic crisis, random plasma glucose results greater than or equal to 200 mg/dL meet the criteria for diagnosis of diabetes. Reference: Standards of Medical Care in Diabetes 2016, [place] [employer]. Diabetes Care. 2016.39(Suppl 1). Performed By: #### 2 4356-8 #### [facility] CLIA [id number] 1 [place] [address] [place] Potassium [Moles/Vol] 4.3 mmol/L Normal 3.7-5.1 [facility] Comment on above: Order Comment: Specej garcia Type: URINE SPECIMEN Ordering Facility: [facility] Address: [address] [place] [address] Performed By: #### 2 4356-8 #### [facility] CLIA [id number] [address] Protein [Mass/Vol] 5.9 g/dL Low 6.3-8.0 [facility] Comment on above: Order Comment: Speci men Type: URINE SPECIMEN Ordering Facility: [facility] Address: [address] [place] [address] Performed By: #### 2 4356-8 #### [facility] CLIA [id number] [address] OF [facility] Sodium [Moles/Vol] 140 mmol/L Normal 136-144 [facility] Comment on above: Order Comment: Speci men Type: URINE SPECIMEN Ordering Facility: [facility] Address: [address] [place] [address] Performed By: #### 2 4356-8 #### [facility] CLIA [id number] [address] STATES OF [facility] Urea nitrogen [Mass/Vol] 11 mg/dL Normal 7-21 [facility] Comment on above: Order Comment: Speci men Type: URINE SPECIMEN Ordering Facility: [facility] Address: [address] [place] [address] Performed By: #### 2 4356-8 #### [facility] CLIA [id number] [address] OF [facility] ED PROV NOTEon 12-04-2023 ED PROV NOTE HNO ID: [id number] Author: JEFF CHANEL DO Service: Emergency Medicine Author Type: Physician Type: ED Provider Notes Filed: 12/04/2023 17:05 Note Text: ED Provider Note Patient Name: Ana Huynh : 1945 SERVICE DATE: 12/04/23 History Patient presents with: Fall: Pt at home alone when she was able to get to the phone to call EMS after being on the floor for unknown amount of time. Pt defecated on self and covered with urine and feces on arrival. Pt alert and orient confused at times. -cp, -pain, -sob. Pt BS with EMS 236 Patient is a 78-year-old female with unknown past medical history who presents for altered mental status and possible fall. Patient presents from home where she states that she woke up on the ground and was unable to get up off of the ground. She is unsure what happened prior to this but does state that she has been having a persistent cough over the past couple days. She denies productivity with the cough or chest pain. She otherwise is unable to provide further history given questionable mental status change. She does live alone. Per EMS the patient was found to be soiled with feces and urine upon their arrival. No past medical history on file. No past surgical history on file. No family history on file. Social History Tobacco Use Smoking status: Not on file Smokeless tobacco: Not on file Substance and Sexual Activity Alcohol use: Not on file Drug use: Not on file Sexual activity: Not on file ALLERGIES Not on File Review of Systems Unable to perform ROS: Mental status change Physical Exam Vitals BP Pulse Temp Temp src Resp SpO2 Weight Height -- 12/04/23 1018 12/04/23 1025 12/04/23 1025 12/04/23 1018 12/04/23 1024 -- -- 63 36.8 ?C (98.3 ?F) Oral 12 98 % Physical Exam Vitals and nursing note reviewed. Constitutional: General: She is not in acute distress. Appearance: She is not ill-appearing. HENT: Head: Normocephalic and atraumatic. Right Ear: Tympanic membrane, ear canal and external ear normal. Left Ear: Tympanic membrane, ear canal and external ear normal. Nose: No congestion. Mouth/Throat: Mouth: Mucous membranes are moist. Pharynx: Oropharynx is clear. No oropharyngeal exudate or posterior oropharyngeal erythema. Eyes: Extraocular Movements: Extraocular movements intact. Conjunctiva/sclera: Conjunctivae normal. Pupils: Pupils are equal, round, and reactive to light. Cardiovascular: Rate and Rhythm: Normal rate. Rhythm irregular. Pulses: Normal pulses. Heart sounds: Normal heart sounds. No murmur heard. No friction rub. No gallop. Pulmonary: Effort: Pulmonary effort is normal. Breath sounds: No wheezing, rhonchi or rales. Abdominal: General: Abdomen is flat. Bowel sounds are normal. Palpations: Abdomen is soft. There is no mass. Tenderness: There is no abdominal tenderness. There is no right CVA tenderness, left CVA tenderness, guarding or rebound. Musculoskeletal: General: No tenderness or deformity. Normal range of motion. Cervical back: Normal range of motion and neck supple. Right lower leg: Edema present. Left lower leg: Edema present. Skin: General: Skin is warm and dry. Capillary Refill: Capillary refill takes less than 2 seconds. Findings: No erythema. Neurological: General: No focal deficit present. Mental Status: She is alert. She is disoriented. Cranial Nerves: No cranial nerve deficit. Sensory: No sensory deficit. Motor: No weakness. Diagnostic Testing ED Labs Ordered and Reviewed - No data to display Procedures ED Course / Clinical Impression Clinical Impressions as of 12/04/23 1702 Pneumonia of right lower lobe due to infectious organism Acute respiratory failure with hypoxia (HCC) Altered mental status, unspecified altered mental status type COVID-19 test performed per [facility] [place] policy for suspected COVID community exposure. MDM / Disposition / Plan Patient is a 78-year-old female who presents for evaluation of altered mental status and possible fall. See HPI. On exam patient is ill-appearing but nontoxic in nature and hemodynamically stable. She was found to be hypoxic on room air and started on 2 L nasal cannula. Heart regular rate but irregular rhythm. Lungs are diminished bilaterally with no wheezing rhonchi or rales. Abdomen soft nontender without rebound or guarding present on exam. Bilateral lower extremity edema noted which does appear chronic in nature. Patient alert and oriented x 1. Unknown baseline. Physical exam otherwise documented above. Patient's EKG showed AV dual paced rhythm with no acute ST segment elevation or change. Patient otherwise is unable to provide further history given mental status change. CBC showed no leukocytosis or anemia. CMP showed no elevated creatinine or gross electrolyte abnormality. VBG did show hypokalemia and anemia, however on serum studies there was no evidence of (more content not included)... Normal [facility] FLUABV+SARS-CoV-2+RSV Pnl Re sp ISRA[place]+probeon 12-04-2023 FLUABV+SARS-CoV-2+RSV Pnl Resp [place]+probe COVID 19 RESULT: Not detected The method used is RT-PCR or an equivalent NAAT method. Reference Range(the expected result in uninfected individuals): Not detected INFLUENZA A PCR: Not detected INFLUENZA B PCR: Not detected RSV PCR: Not detected Normal [facility] Comment on above: Performed By: #### 9 5941-1 ####[facility] [id number] [address] HIGH SENSITIVITY TROPONIN T (INITIAL)on 12-04-2023 Troponin T.cardiac High sensitivity method [Mass/Vol] 12 ng/L High <12 [facility] Comment on above: Order Comment: Ashu garcia Type: BLOOD SPECIMENOrdering Facility: [facility] Address: [address] [place] [address] Result Comment: When assessing risk for acute coronary syndromes: In patients undergoing blood draw greater than or equal to 2 hours from symptom onset, with history of very low to moderate risk and non-ischemic ECG, an initial hs-Troponin T less than 12 ng/L AND a 1 hour delta hs-Troponin T less than 3 ng/L should be considered very low risk for 30 day MACE. Performed By: #### L [id number] ####[facility] [id number] [address] HIGH SENSITIVITY TROPONIN T (SECOND)on 12-04-2023 Troponin T.cardiac High sensitivity method [Mass/Vol] 9 ng/L Normal <12 [facility] Comment on above: Order Comment: Ashu garcia Type: BLOOD SPECIMENOrdering Facility: [facility] Address: [address] [place] [address] Result Comment: When assessing risk for acute coronary syndromes: In patients undergoing blood draw greater than or equal to 2 hours from symptom onset, with history of very low to moderate risk and non-ischemic ECG, an initial hs-Troponin T less than 12 ng/L AND a 1 hour delta hs-Troponin T less than 3 ng/L should be considered very low risk for 30 day MACE. Performed By: #### L [id number] ####[facility]IA [id number] [address] HIGH SENSITIVITY TROPONIN T (THIRD) 3 HRS AFTER INITIALon 12-04-2023 Troponin T.cardiac High sensitivity method [Mass/Vol] 8 ng/L Normal <12 [facility] Comment on above: Order Comment: Speci men Type: BLOOD SPECIMENOrdering Facility: [facility] Address: [address] [place] [address] Result Comment: When assessing risk for acute coronary syndromes: In patients undergoing blood draw greater than or equal to 2 hours from symptom onset, with history of very low to moderate risk and non-ischemic ECG, an initial hs-Troponin T less than 12 ng/L AND a 1 hour delta hs-Troponin T less than 3 ng/L should be considered very low risk for 30 day MACE. Performed By: #### L [id number] ####[facility]ORYCLIA [id number] [place] [address] [place] HISTORY PHYSICALon HISTORY PHYSICAL HNO ID: [id number] Author: TAMI SOLORZANO PA-C Service: Family Practice Author Type: Physician [facility] Manager Type: H&P Filed: 12/04/2023 17:02 Note Text: [facility] History and Physical Patient Name: Ana Lopes Date: December 04, 2023 Time: 4:42 PM Primary Care Provider: Antonio Vaughn DO Date of Admission: 12/04/2023 Admitting Facility: [facility] Service: [facility] Inpatient Service Attending: Dr. Justin Hairston MD Reason For Admission: Pneumonia of left lung due to infectious organism Subjective HPI: Ana Lopes is a 78 year old female with past medical history of epilepsy, DM type II, HFpEF, COPD (on chronic 2L NC), interstitial lung disease, MARY, obesity, h/o complete heart block with pacemaker placement 10/21 who presented via EMS to [facility] with altered mental status after being on group after fall with no memory of what happened prior to fall but was able to state per ER that she has had a cough . Otherwise unable to give other information. Of note this chart was not correct and is in process of being merged with prior chart. Spoke with son who was unable to give much information . States patient lives alone but has daily aide and he states that patient thought she had COVID from being out in the rain. He is unable to confirm when she last took her medications but states aide plans on visiting hospital and will be able to provide this information. He does state mental status is not at baseline and she has had a cough and has been fatigued since pacemaker placement. ER course: Review of Systems Unable to perform ROS: Mental status change Past Medical History::No past medical history on file. Past Surgical History: No past surgical history on file. Past Family History: No family history on file. Past Social History: Home Medications: albuterol HFA (PROVENTIL HFA, VENTOLIN HFA) 90 mcg/actuation inhalerInhale 2 Puffs as instructed every 6 hours as needed for wheezing/shortness of breath.Disp: Rfl: aspirin 81 mg chewable tabletTake 81 mg by mouth once daily.Disp: Rfl: atorvastatin (LIPITOR) 80 mg tabletTake 80 mg by mouth once daily.Disp: Rfl: [id number]-ci osphatid 1.7 mg-400 mcg- 2.4 mcg capTake 1 capsule by mouth once daily.Disp: Rfl: Biotin 10,000 mcg capTake 1 capsule by mouth once daily.Disp: Rfl: balxmgd-sljvwygqt-dgsn min D3 (OYSTER SHELL CALCIUM-VITAMIN D) 500 mg-5 mcg (200 unit) per tabletTake 1 tablet by mouth once daily.Disp: Rfl: cetirizine (ZYRTEC) 10 mg tabletTake 10 mg by mouth once daily.Disp: Rfl: diclofenac (VOLTAREN ARTHRITIS PAIN) 1 % topical gelApply 4 g to affected area four times daily.Disp: Rfl: fluticasone (FLONASE ALLERGY RELIEF) 50 mcg/actuation nasal sprayUse 1 [place] in each nostril once daily.Disp: Rfl: furosemide (LASIX) 20 mg tabletTake 20 mg by mouth once daily.Disp: Rfl: levETIRAcetam (KEPPRA) 750 mg tabletTake 750 mg by mouth two times a day.Disp: Rfl: metFORMIN (GLUCOPHAGE) 1,000 mg tabletTake 1,000 mg by mouth two times a day with meals.Disp: Rfl: polyvinyl alcohol (LIQUIFILM TEARS) 1.4 % ophthalmic solutionUse 1 Drop in both eyes as needed (both eyes).Disp: Rfl: prednisoLONE acetate (PRED FORTE) 1 % ophthalmic suspensionUse 1 Drop in both eyes three times a day.Disp: Rfl: umeclidinium-vilantero l (ANORO ELLIPTA) 62.5-25 mcg/actuation inhalerInhale 1 Puff as instructed once daily.Disp: Rfl: Inpatient Medications: Current Facility-Administered Medications Medication Dose Route Frequency Provider Last Rate Last Admin NaCl 0.9% iv flush bag 20 mL INTRAVENOUS PRN Jeff Chanel, DO magnesium sulfate iv piggyback in sterile water 2 g 50 mL 2 g INTRAVENOUS ONCE Jeff Chanel, DO 25 mL/hr at 12/04/23 1545 2 g at 12/04/23 1545 Current Outpatient Medications Medication Sig Dispense Refill albuterol HFA (PROVENTIL HFA, VENTOLIN HFA) 90 mcg/actuation inhaler Inhale 2 Puffs as instructed every 6 hours as needed for wheezing/shortness of breath. aspirin 81 mg chewable tablet Take 81 mg by mouth once daily. atorvastatin (LIPITOR) 80 mg tablet Take 80 mg by mouth once daily. [id number]-tm osphatid 1.7 mg-400 mcg- 2.4 mcg cap Take 1 capsule by mouth once daily. Biotin 10,000 mcg cap Take 1 capsule by mouth once daily. harsqko-olhmqonpp-rssh min D3 (OYSTER SHELL CALCIUM-VITAMIN D) 500 mg-5 mcg (200 unit) per tablet Take 1 tablet by mouth once daily. cetirizine (ZYRTEC) 10 mg tablet Take 10 mg by mouth once daily. diclofenac (VOLTAREN ARTHRITIS PAIN) 1 % topical gel Apply 4 g to affected area four times daily. fluticasone (FLONASE ALLERGY RELIEF) 50 mcg/actuation nasal spray Use 1 [place] in each nostril once daily. furosemide (LASIX) 20 mg tablet Take 20 mg by mouth once daily. levETIRAcetam (KEPPRA) 750 mg tablet Take 750 mg by mouth two times a day. metFORMIN (GLUCOPHAGE) 1,000 mg tablet Take 1,000 mg by mouth (more content not included)... Normal [facility] Magnesium SerPl-mCncon 12-03 Magnesium [Mass/Vol] 1.1 mg/dL Low 1.7-2.3 [facility] Comment on above: Order Comment: Speci men Type: URINE SPECIMEN Ordering Facility: [facility] Address: [address] [place] [address] [place] [address] Performed By: #### 2 4356-8 #### [facility] CLIA [id number] [address] [place] [address] [place] Urinalysis complete pnl Uron 12-04-2023 Urinalysis complete panel (U) COLOR: Yellow CLARITY: Turbid GLUCOSE, URINE: Negative BILIRUBIN, URINE: Negative KETONES, URINE: Negative SPECIFIC GRAVITY, UR: 1.021 HEMOGLOBIN/BLOOD, UR: 2+ PH, URINE: 6.0 PROTEIN, URINE: 1+ UROBILINOGEN: Normal NITRITES: 2+ LEUKEST: 500 [place]/uL WBC, URINE: >25 /HPF RBC, URINE: 6-10 /HPF BACTERIA: Few SQUAMOUS EPITHELIAL CELLS: Few HYALINE CASTS: 1-3 /LPF CULTURE, URINE: >=100,000 CFU/mL Three or more organisms, no one type predominant, suggesting contamination during collection. Recollect if clinically indicated. Abnormal [facility] Comment on above: Order Comment: Speci men Type: URINE SPECIMEN Ordering Facility: [facility] Address: [address] [place] [address] Performed By: #### 2 4356-8 #### [facility] CLIA [id number] [address] [place] [address] [place] XR CHEST 1V FRONTALon 2023 XR CHEST 1V FRONTAL * * *Final Report* * * DATE OF EXAM: Dec 04 2023 10:42AM AKX [id number] - XR CHEST 1V FRONTAL / PROCEDURE REASON: Shortness of breath * * * * Physician Interpretation * * * * EXAMINATION: CHEST RADIOGRAPH (SINGLE VIEW AP OR PA) CLINICAL HISTORY: Shortness of breath MQ: XC1_5 Comparison: RESULT: Lines, tubes, and devices: There is a pacemaking device. Lungs and pleura: There is suspected centralized pulmonary vascular congestion. Mild left basilar atelectasis. No sizable consolidation or pneumothorax. Cardiomediastinal silhouette: Normal cardiomediastinal silhouette. Other: . IMPRESSION: Suspected centralized pulmonary vascular congestion. Left basilar atelectasis or developing pneumonia. Follow-up PA and lateral chest radiograph when patient is able. Director Patient: RAY Transcribe Date/Time: Dec 04 2023 10:58A Dictated by : MONY CASAS MD This examination was interpreted and the report reviewed and electronically signed by: MONY CASAS MD on Dec 04 2023 10:59AM EST [id number] Normal [facility] No Panel Informationon 10-22 BLANK _ [facility] Implant Date 10/22/2023 [facility] PAC[facility]AKER CLIN[facility] CHECKon AV Delay Adaptive Paced Minimum (ms) 300 ms [facility] AV Delay Adaptive Sensed Minimum (ms) 250 ms [facility] AV Delay Adaptive Status DISABLED [facility] Battery Voltage (volts) 3.14 V C [facility] Дмитрий RA Pacing Amplitude (volts) 3.5 V [facility] Дмитрий RA Pacing Polarity BI [facility] Дмитрий RA Pacing Pulse Width (ms) 0.4 ms [facility] Дмитрий RA Sensing Amplitude (mvolts) 0.3 mV [facility] Дмитрий RA Sensing Blanking Period (ms) 150 ms [facility] Дмитрий RA Sensing Polarity BI [facility] Дмитрий RA Sensing Refractory Period (ms) Auto [facility] Дмитрий RV Pacing Amplitude (volts) 3.5 V [facility] Дмитрий RV Pacing Polarity BI [facility] Дмитрий RV Pacing Pulse Width (ms) 0.4 ms [facility] Дмитрий RV Sensing Amplitude (mvolts) 0.9 mV [facility] Дмитрий RV Sensing Blanking Period (ms) 200 ms [facility] Дмитрий RV Sensing Polarity BI [facility] Hysteresis Rate (bpm) DISABLED [facility] Lead1 [facility] Lead2 Mfg [facility] Location RV [facility] Location RA [facility] Lower Rate (bpm) 60 {beats}/min [facility] Max Sensor Rate (bmp) 120 {beats}/min [facility] Model [id number] Rakel XT DR MRI [facility] Model 3830-69 [facility] Model 5076-52 Capsurefix Novus [facility] Pacemaker Dependent? NO [facility] Pacing Mode DDD [facility] PM-Device Mfg MDT [facility] PM-Percent Pacing (A) 34.39 % [facility] PM-Percent Pacing (V) 78.08 % [facility] PM-PMT Intervention ENABLED [facility] PM-PVC Intervention ENABLED [facility] PM-Rate Modulation Acceleration Reaction 30 s [facility] PM-Rate Modulation ADL Rate (bpm) 95 {beats}/min [facility] PM-Rate Modulation Deceleration Exercise [facility] PM-Rate Modulation [place] 3 [facility] PM-Rate Modulation Threshold Low [facility] RA Bipolar Impedance ohms 437 ohm [facility] RA Unipolar Impedance ohms 380 ohm [facility] Rhythm sinus rhythm @ 60 bpm [facility] RV Bipolar Impedance ohms 741 ohm [facility] RV Unipolar Impedance 570 ohm [facility] Serial Number [id number] [facility] Serial Number [id number] [facility] Serial Number [id number] [facility] Thresh RA Capture Amplitude (volts) 0.5 V [facility] Thresh RA Capture Duration (ms) 0.4 ms [facility] Thresh RA Sensing Amplitude (mvolts) 2.25 mV [facility] Thresh RV Capture Amplitude (volts) 0.25 V [facility] Thresh RV Capture Duration (ms) 0.4 ms [facility] Thresh RV Sensing Amplitude (mvolts) 8.75 mV [facility] Tracking Rate (bpm) 120 {beats}/min [facility] HEMOGLOBIN A1C (POC)on 01-18 HbA1c (Bld) [Mass fraction] 7.4 % Abnormal 4.2 - 5.6 % [facility] HEMOGLOBIN A1C (POC)on 12-21 HbA1c (Bld) [Mass fraction] 6.9 % Abnormal 4.2 - 5.6 % [facility] SCREENINGon 09-06-2020 [facility] SCREENING Final Report DATE OF EXAM: Sep 06 2020 10:50AM [facility] [id number] - [facility] SCREENING / PROCEDURE REASON: screening Physician Interpretation #[id number] - ENRIKE SCREENING BILATERAL DIGITAL SCREENING MAMMOGRAM WITH CAD: 09/06/2020 HISTORY: Screening/ Routine screening mammogram. Patient reports no breast problems. RESULT: TECHNIQUE: The study was acquired using full field digital technology and interpreted from soft copy. Current study was also evaluated with a Computer Aided Detection (CAD). Comparison is made to exams dated: 08/06/2019 mammogram, 06/09/2018 mammogram - [facility], and 03/27/2016 mammogram - [facility]. There are scattered fibroglandular elements in both breasts. No significant masses, calcifications, or other findings are seen in either breast. There has been no significant interval change. IMPRESSION: NEGATIVE There is no mammographic evidence of malignancy. A 1 year screening mammogram is recommended. Nelson ford/zaid:09/06/2020 11:39:09 Animal Biologist(s): Mariel Gloria)(Rebeka), Mobile Product Manager Center letter sent: Normal over 40 Mammogram BI-RADS: 1 Negative Multiple national specialty organizations have released breast cancer screening guidelines for women at average risk for developing breast cancer - guidelines that are based on both evidence and opinion, yet differ on when to start and how often to screen for breast cancer. With representation from Breast Imaging, Internal Medicine, Women's Health, Family Medicine, and Medical/Surgical Oncology, the [facility] has carefully reviewed the data and reached the following consensus: 1) All women should engage in shared decision-making with their providers to decide when to start and how often to screen; 2) All women should have the opportunity to start screening mammography at age 40; 3) For women ages 45-55, we recommend annual screening mammograms; 4) For women ages 55 and over, we support both the transition from an annual to a biennial interval if this aligns more with patient's values and preferences, or continuation with annual screening; 5) All women should discuss with their providers when to stop screening mammograms. Director Patient: Zaid Transcribe Date/Time: Sep 06 2020 10:32A Dictated by : NELSON PAZ MD This examination was interpreted and the report reviewed and electronically signed by: NELSON PAZ MD on Sep 06 2020 11:39AM EST Normal [facility] ANES POSTPROC EVALon 021 ANES POSTPROC EVAL HNO ID: [id number] Author: Cori Olivo Service: Anesthesiology Author Type: Anesthesiologist Type: Anesthesia Postprocedure Evaluation Filed: 08/30/2020 8:27 AM Note Text: POST ANESTHESIA EVALUATION NOTE : 1945 Procedure Summary Date: 08/30/20 Room / Location: [place] [address] / [facility] Anesthesia Start: 724 Anesthesia Stop: 756 Procedures: PHACOEMULSIFICATION CATARACT IMPLANT INTRAOCULAR LENS W/O ENDOSCOPIC CYCLOPHOTOCOAGULATION (Left Eye) OPHTHALMIC BIOMETRY BY PARTIAL COHERENCE INTERFEROMETRY W/INTRAOCULAR LENS POWER CALCULATION (Left Eye) Diagnosis: Nuclear senile cataract of left eye (Nuclear senile cataract of left eye [H25.12]) Surgeons: Mattie Cordon Responsible Provider: Cori Olivo Anesthesia Type: MAC ASA Status: 3 Anesthesia Type: MAC Last vitals Vitals Value Taken Time BP 137/84 08/30/20 0809 Temp 36.5 ?C (97.7 ?F) 08/30/20 0759 Pulse 76 08/30/20 0809 Resp 16 08/30/20 0809 SpO2 96 % 08/30/20 0809 Post Anesthesia Patient Status Patient Evaluation: PACU. PACU/ICU Patient Condition: stable. Anticipated Disposition: phase 2 then home. Neurological Status: aware and responsive. Pulmonary Status: breathing comfortably on room air Airway Control: returned to baseline unsupported. Cardiovascular Status: stable. Pain Management: clinically adequate - multimodal analgesia pain management approach Postoperative Hydration: acceptable. Intraoperative Events: no significant anesthesia events Post Operative Nausea/Vomiting Status: no significant post operative nausea or vomiting Anesthetic Observations: no significant anesthetic observations Recommendation: continue current plan of care. SIGNATURE: Cori Olivo MD PATIENT NAME: Ana Lopes DATE: August 30, 2020 TIME: 8:27 AM CSN: [id number] [facility] ANES PRE-OPon 08-30-2020 ANES PRE-OP HNO ID: [id number] Author: Cori Olivo Service: Anesthesiology Author Type: Anesthesiologist Type: Anesthesia Preprocedure Evaluation Filed: 08/30/2020 7:13 AM Note Text: ANESTHESIOLOGY DAY OF SURGERY NOTE : 1945 Procedure(s) (LRB): PHACOEMULSIFICATION CATARACT IMPLANT INTRAOCULAR LENS W/O ENDOSCOPIC CYCLOPHOTOCOAGULATION (Left) OPHTHALMIC BIOMETRY BY PARTIAL COHERENCE INTERFEROMETRY W/INTRAOCULAR LENS POWER CALCULATION (Left) Surgeon(s): Mattie Cordon Estimated body mass index is 51.03 kg/m? as calculated from the following: Height as of 08/15/20: 157.5 cm (5' 2"). Weight as of 08/15/20: 126.6 kg (279 lb). Most recent hematocrit and potassium results: Hematocrit 43.0 04/15/2020 Potassium 4.0 05/20/2020 Relevant Problems ANESTHESIA (+) MARY (obstructive sleep apnea) CARDIO (+) Hypertension ENDO (+) Type 2 diabetes mellitus with complication, without long-term current use of insulin (HCC) GI (+) GERD (gastroesophageal reflux disease) (+) Hiatal hernia NEURO-PSYCH (+) History of peptic ulcer disease (+) Seizure disorder (HCC) PULMONARY (+) MARY (obstructive sleep apnea) I - PHYSICAL EVALUATION AIRWAY Patient intubated: No. Tracheostomy tube not present Mallampati: II. TM distance: >3 FB. Neck ROM: limited flexion and extension. Mouth opening: adequate. Short neck: yes. Thick neck: no DENTAL Dental findings: edentulous. Additional exam findings: no II - ANESTHESIA PLAN ASA Score: 3 Anesthetic Plan: MAC Anesthetic plan additional comments: Last seizure about 6 months ago. The patient is not a current smoker. NPO Status: adequate Monitoring plan: standard ASA. Postoperative analgesic plan: parenteral or oral opioids. Anesthetic Risks, Benefits, Alternatives, Personnel Discussed. Consent obtained from: patient.Patient / Surrogate agrees to blood products: blood products not planned Significant changes in the patient condition since the History and Physical, not otherwise documented in primary service progress note: no. Potential Anesthesia issues that may suggest increased risk of complications or contraindication to planned procedure: none. No vitals data found for the desired time range. Facility-Administered Medications as of 08/30/2020 Medication Dose Route Frequency - sodium chloride 0.9 % (flush) 2-10 mL (BD POSIFLUSH) 2-10 mL INTRAVENOUS q 12 H - tropicamide 1 % 1 Drop (MYDRIACYL) 1 Drop LEFT EYE q 3 min - cyclopentolate 1 % 1 Drop (CYCLOGYL) 1 Drop LEFT EYE q 3 min - PHENYLephrine 2.5 % 1 Drop (AK-DILATE, VALORIE-SYNEPHRINE) 1 Drop LEFT EYE q 3 min - PHENYLephrine syringe 1.5% (15 mg/mL) (VALORIE-SYNEPHRINE) 2 mL LEFT EYE ONCE Outpatient Medications as of 08/30/2020 Medication Sig - [] diclofenac sodium (VOLTAREN) 1 % topical gel Apply 4 g to affected area four times daily. (Patient not taking: Reported on 06/03/2020 ) - DL-Vitamin E Acetate oil Apply 1 application to affected area once daily. - metFORMIN (GLUCOPHAGE) 1,000 mg tablet Take 1 tablet by mouth daily with breakfast. - [] cetirizine (ZYRTEC) 10 mg tablet Take 1 tablet by mouth once daily. - furosemide (LASIX) 20 mg tablet TAKE 1 TABLET BY MOUTH EVERY DAY - alcohol swabs APPLY 1 APPLICATION TO THE AFFECTED AREA(S) EVERY DAY - albuterol HFA (VENTOLIN HFA) 90 mcg/actuation inhaler Inhale 2 Puffs as instructed every 6 hours as needed. - nystatin (NYSTOP) powder APPLY TOPICALLY TO AFFECTED AREA(S) two TIMES DAILY - ONETOUCH VERIO test strip USE DIRECTED - Diaper,Brief, Adult,Disposable (PREVAIL UNDERWEAR) misc 1 Units once daily. - Incontinence Pad, Liner, Disp (PREVAIL PADS) pads 1 Units once daily. - Ketorolac Tromethamine (ACULAR LS) 0.4 % drop Use 1 Drop in the left eye four times daily. - atorvastatin (LIPITOR) 80 mg tablet TAKE 1 TABLET BY MOUTH AT BEDTIME - OYSTER SHELL CALCIUM-VITAMIN D 500 mg(1,250mg) -200 unit per tablet TAKE 1 TABLET BY MOUTH TWICE DAILY (Patient taking differently: Pt is only taking once daily. ) - fluticasone (FLONASE) 50 mcg/actuation nasal spray USE 1 SPRAY IN EACH NOSTRIL EVERY DAY - alpha tocopheryl acetate (VITAMIN E) 100 unit capsule Take 100 Units by mouth once daily. - multivitamin with minerals (HAIR,SKIN AND NAILS) tablet Take 1 tablet by mouth once daily. - propylene glycol (SYSTANE BALANCE) 0.6 % drop Use 2 Drops in the right eye once daily. - aspirin, enteric coated (ASPIRIN, ENTERIC COATED) 81 mg EC tablet Take 81 mg by mouth once daily. I have interviewed and examined the patient. I have reviewed the medical record and/or the pre-anesthesia evaluation, pertinent labs, and test results. This contains updated information obtained within 48 hours of Surgery/Procedure. SIGNATURE: Cori Olivo MD PATIENT NAME: Ana Lopes DATE: August 30, 2020 TIME: 7:04 AM CSN: [id number] [facility] HISTORY PHYSICALon HISTORY PHYSICAL HNO ID: [id number] Author: Mattie Cordon Service: Ophthalmology Author Type: Physician Type: HANDP Filed: 08/30/2020 7:02 AM Note Text: UPDATED HISTORY AND PHYSICAL EXAMINATION SERVICE DATE: 08/30/2020 SERVICE TIME: 7:02 AM PHYSICAL EXAM MUST BE COMPLETED ON ADMISSION The History and Physical (completed in the past 30 days) has been reviewed and the patient has been examined. The contents accurately reflect the patient's condition with the following additions or revisions since the HANDP was completed. Examination indicates no changes. This HANDP can be found in the Electronic Medical Record dated 08/15/20. SIGNATURE: Mattie Simon MD PATIENT NAME: Ana Lopes DATE: August 30, 2020 TIME: 7:02 AM PAGER: [facility] OPERATIVE NOon 08-30-2020 OPERATIVE NO HNO ID: [id number] Author: Mattie Cordon Service: Ophthalmology Author Type: Physician Type: Operative Report Filed: 08/30/2020 7:58 AM Note Text: OPERATIVE/PROCEDURE REPORT OPHTHAMOLOGY LOG ID: [id number] Surgery/Procedure Date: 08/30/2020 Incision/Procedure Start Time: 7:35 AM Incision Close/Procedure End Time: 7:56 AM Surgeon(s)/Procedurali st(s) and [facility] Manager(s): Surgeon(s) and Role: * Mattie Cordon - Primary Procedure(s): Procedure(s) (LRB): PHACOEMULSIFICATION CATARACT IMPLANT INTRAOCULAR LENS W/O ENDOSCOPIC CYCLOPHOTOCOAGULATION (Left) OPHTHALMIC BIOMETRY BY PARTIAL COHERENCE INTERFEROMETRY W/INTRAOCULAR LENS POWER CALCULATION (Left) Preoperative Diagnosis: Nuclear senile cataract of left eye [H25.12] Postoperative Diagnosis: Same as Preop Operative Indications: This is a 75 year old female who complains of inability to see distance and read out of the left eye. On examination, the patient was noted to have a dense nuclear sclerotic cataract in the left eye. The decision to proceed with cataract extraction and implant placement as below was made. Anesthesia: Monitored Anesthesia Care Procedure Details: After the risks and benefits of the procedure were fully explained to the patient and informed consent was obtained, the patient was brought to the operative field, placed in the supine position. Monitored anesthesia care had been achieved. A clear corneal paracentesis was created with katty blade. Then 0.1 cc of 1% MPF-free lidocaine was injected into the anterior chamber through the paracentesis site. A 3 mm katty keratome created a clear corneal temporal tunnel 3 hours counterclockwise from paracentesis after Healon had been used to fill the anterior chamber. Then a bent needle cystitome and Utrata forceps were used to create a continuous curvilinear capsulorrhexis. A zepwlm-[id number]-itvlnzv technique was used to remove the lens nucleus by phacoemulsification. Cortex was removed with Irrigation/ Aspiration. Healon was used to fill the capsular bag and the ACU0T0 with 25.5 diopters was injected through a shooter. I/A was used to remove healon. Each of the wounds was checked for leaks and found to be leak free, and the patient was taken to recovery in good condition after a pressure patch and shield had been applied. Estimated Blood Loss: Minimal unless noted here. Specimens: * No specimens in log * Implantable Devices: Implant Name Type Inv. Item Serial No. Correspondent Lot No. LRB Model Num No. Used LENS ACRYSOF ULTRASERT +25.5 DIOPTER ACRYLIC IOL 1 PIECE FOLDABLE UV BLUE - [id number] Intraocular Lens LENS ACRYSOF ULTRASERT +25.5 DIOPTER ACRYLIC IOL 1 PIECE FOLDABLE UV BLUE [id number] [facility] Left ACU0T0.255 1 Drains: None unless noted here. Complications: None I performed the entire procedure. SIGNATURE: Mattie Simon MD PATIENT NAME: Ana Lopes DATE: August 30, 2020 TIME: 7:57 AM PAGER/CONTACT #: [facility] 06-13-2020 [facility] Patient:Ana Lopes MRN: Height:5' 2"(1.575 m) Weight:279 lb (126.554 kg) Outpatient Medications as of 08/30/20: levETIRAcetam (KEPPRA) 750 mg tablet prednisoLONE acetate (PRED FORTE, ECONOPRED PLUS) 1 % ophthalmic suspension Gatifloxacin 0.5 % drop keTORolac (ACULAR) 0.5 % ophthalmic solution DL-Vitamin E Acetate oil metFORMIN (GLUCOPHAGE) 1,000 mg tablet furosemide (LASIX) 20 mg tablet alcohol swabs albuterol HFA (VENTOLIN HFA) 90 mcg/actuation inhaler nystatin (NYSTOP) powder ONETOUCH VERIO test strip Diaper,Brief, Adult,Disposable (PREVAIL UNDERWEAR) misc Incontinence Pad, Liner, Disp (PREVAIL PADS) pads Ketorolac Tromethamine (ACULAR LS) 0.4 % drop atorvastatin (LIPITOR) 80 mg tablet OYSTER SHELL CALCIUM-VITAMIN D 500 mg(1,250mg) -200 unit per tablet fluticasone (FLONASE) 50 mcg/actuation nasal spray alpha tocopheryl acetate (VITAMIN E) 100 unit capsule multivitamin with minerals (HAIR,SKIN AND NAILS) tablet propylene glycol (SYSTANE BALANCE) 0.6 % drop aspirin, enteric coated (ASPIRIN, ENTERIC COATED) 81 mg EC tablet Admission/Clinic Administered Medications as of 08/30/20: sodium chloride 0.9 % (flush) 2-10 mL (BD POSIFLUSH) PHENYLephrine syringe 1.5% (15 mg/mL) (VALORIE-SYNEPHRINE) Problem List: Debility [R53.81] Hypercholesteremia [E78.00] MARY (obstructive sleep apnea) [G47.33] Allergic rhinitis [J30.9] Anxiety [F41.9] Hypertension [I10] Seizure disorder (HCC) [G40.909] Lymphedema of both lower extremities [I89.0] GERD (gastroesophageal reflux disease) [K21.9] Osteoarthrosis [M19.90] Type 2 diabetes mellitus with complication, without long-term current use of insulin (HCC) [E11.8] Restrictive lung disease [J98.4] 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 with body mass index (BMI) of 45.0 to 49.9 in adult (HCC) [E66.2, Z68.42] History of peptic ulcer disease [Z87.11] Hiatal hernia [K44.9] Stress incontinence [N39.3] Intertrigo [L30.4] History of bilateral cataract extraction [Z98.41, Z98.42] Allergies: Nitroglycerin Omeprazole Propoxyphene Acetaminophen Codeine Nabumetone Date Verified: 08/30/20 Lab Values No results within the last 30 days for the following basenames: K,HCT Progress Notes (OPHT SUMMIT JOE): Masha Roper 08/26/2020 10:46 AM Signed Attempted to contact patient's sister Divya to inform to arrive at [address] [facility] [address] at 6:45 am for 08/30/20 surgery with Mattie Simon MD, to refrain from eating or drinking for 8 hours prior to arrival for surgery, to begin the eyedrops in the left eye on 08/28/20, and to remember to go to [facility] in [place] at 1:50 pm on 08/27/20. Left message on machine to call me with any questions or concerns. Progress Notes (FAMP AG ACC CFM): Zehra Guaman 08/26/2020 7:31 AM Signed Please review and complete. Will be placed in your temp file. Thank you. [facility] Basic Metabolic Panelon 05-1 Calcium 6.1 mg/dL Low 8.4-10.2 [facility] [employer] Comment on above: Performed By: #### H EMDF, LIPD2, BMP3, HA1C2 ####[facility] [address] [place] [address] Glucose mass conc 157 mg/dL High 70-100 [facility] Comment on above: Performed By: #### H EMDF, LIPD2, BMP3, HA1C2 ####[facility] [place] [address] Urea nitrogen 26 mg/dL High 7-20 [facility] Comment on above: Performed By: #### H EMDF, LIPD2, BMP3, HA1C2 ####[facility] [place] [address] Anion gap 20 Normal [facility] [employer] Comment on above: Performed By: #### H EMDF, LIPD2, BMP3, HA1C2 ####[facility] [place] [address] CO2 22 mmol/L Normal 22-30 [facility] [employer] Comment on above: Performed By: #### H EMDF, LIPD2, BMP3, HA1C2 ####[facility] [place] [address] Creatinine 1.12 mg/dL Normal 0.52-1.25 [facility] Comment on above: Performed By: #### H EMDF, LIPD2, BMP3, HA1C2 ####[address] [place] [address] eGFR (black) 58.2 mL/min/{1.73_m2} Normal >60 [facility] Comment on above: Performed By: #### H EMDF, LIPD2, BMP3, HA1C2 ####[address] [place] [address] eGFR (non-black) 48.0 mL/min/{1.73_m2} Normal >60 [facility] Comment on above: Result Comment: Sour ce- MDRD equation with creatinine calibration to IDMS(NKDEP) eGFR not recommended for drug dose adjustment Performed By: #### H EMDF, LIPD2, BMP3, HA1C2 ####[address] Potassium molar conc 4.1 mmol/L Normal 3.5-5.1 [facility] Comment on above: Performed By: #### H EMDF, LIPD2, BMP3, HA1C2 ####[address] Sodium 145 mmol/L Normal 137-145 [facility] Comment on above: Performed By: #### H EMDF, LIPD2, BMP3, HA1C2 ####[address] Chloride 103 mmol/L Normal 98-107 [facility] Comment on above: Performed By: #### H EMDF, LIPD2, BMP3, HA1C2 ####[address] [address] Hemoglobin A1Con 11-22-2017 Glucose mass conc 148 mg/dL Normal [facility] Comment on above: Performed By: #### H EMDF, LIPD2, BMP3, HA1C2 ####[address] [address] Hemoglobin A1c/Hemoglobin.total mass fraction (Bld) 6.8 % High 4.0-5.7 [facility] Comment on above: Result Comment: --Hg bA1C levels may not be accurate in patients who haverenal disease, received recent blood transfusions, are anemic,or who have dyshemoglobinemia. Performed By: #### H EMDF, LIPD2, BMP3, HA1C2 ####[address] Hemogram w/ Autodiffon 11-22 Abs Baso Cnt 0.1 10*3/uL Normal 0.0-0.2 [facility] Comment on above: Performed By: #### H EMDF, LIPD2, BMP3, HA1C2 ####[address] Basophils/100 WBC Auto (Bld) 0.6 % Normal 0.0-2.0 [facility] Comment on above: Performed By: #### H EMDF, LIPD2, BMP3, HA1C2 ####[address] Eosinophils 0.6 10*3/uL High 0.0-0.5 [facility] Comment on above: Performed By: #### H EMDF, LIPD2, BMP3, HA1C2 ####[address] Eosinophils/100 leukocytes 5.9 % Normal 1.0-6.0 [facility] Comment on above: Performed By: #### H EMDF, LIPD2, BMP3, HA1C2 ####[address] Erythrocyte distribution width Auto Ratio (RBC) 14.1 % Normal 11.5-14.5 [facility] Comment on above: Performed By: #### H EMDF, LIPD2, BMP3, HA1C2 ####[address] Erythrocytes (RBC) 4.74 10*6/uL Normal 3.80-5.20 [facility] Comment on above: Performed By: #### H EMDF, LIPD2, BMP3, HA1C2 ####[address] Granulocytes/100 WBC (Bld) 53.3 % Normal 40.0-80.0 [facility] Comment on above: Performed By: #### H EMDF, LIPD2, BMP3, HA1C2 ####[address] Hematocrit (HCT) 45.5 % Normal 35.0-47.0 [facility] Comment on above: Performed By: #### H EMDF, LIPD2, BMP3, HA1C2 ####[address] Hemoglobin mass conc (Bld) 15.4 g/dL Normal 11.7-16.0 [facility] Comment on above: Performed By: #### H EMDF, LIPD2, BMP3, HA1C2 ####[address] Lymphocytes 2.9 10*3/uL Normal 1.0-4.3 [facility] Comment on above: Performed By: #### H EMDF, LIPD2, BMP3, HA1C2 ####[address] Lymphocytes/100 leukocytes 30.2 % Normal 20.0-40.0 [facility] Comment on above: Performed By: #### H EMDF, LIPD2, BMP3, HA1C2 ####[address] MCH 32.4 pg Normal 26.0-34.0 [facility] Comment on above: Performed By: #### H EMDF, LIPD2, BMP3, HA1C2 ####[address] MCHC mass conc (RBC) 33.8 % Normal 32.0-36.0 [facility] Comment on above: Performed By: #### H EMDF, LIPD2, BMP3, HA1C2 ####[address] MCV 96.0 fL Normal 79.0-98.0 [facility] Comment on above: Performed By: #### H EMDF, LIPD2, BMP3, HA1C2 ####[address] [place], [place] Monocytes 0.9 10*3/uL High 0.0-0.8 [facility] Comment on above: Performed By: #### H EMDF, LIPD2, BMP3, HA1C2 ####[address] Monocytes/100 leukocytes 10.0 % Normal 2.0-10.0 [facility] Comment on above: Performed By: #### H EMDF, LIPD2, BMP3, HA1C2 ####[address] Neutrophils 5.1 10*3/uL Normal 1.8-7.0 [facility] Comment on above: Performed By: #### H EMDF, LIPD2, BMP3, HA1C2 ####[address] Platelet mean volume (PMV) 8.4 fL Normal 7.4-10.4 [facility] Comment on above: Performed By: #### H EMDF, LIPD2, BMP3, HA1C2 ####[address] Platelets 206 10*3/uL Normal 140-440 [facility] Comment on above: Performed By: #### H EMDF, LIPD2, BMP3, HA1C2 ####[address] WBC (Leukocytes) 9.5 10*3/uL Normal 3.6-10.7 [facility] Comment on above: Performed By: #### H EMDF, LIPD2, BMP3, HA1C2 ####[address] Lipid Panelon 11-22-2017 Cholesterol to HDL Ratio 20 Normal [facility] Comment on above: Result Comment: Ref Range:< 3 Low Risk for CHD3-6 Mod Risk for CHD> 6 High Risk for CHD Performed By: #### H EMDF, LIPD2, BMP3, HA1C2 ####[address] [place], [place] HDL Cholesterol 5 mg/dL Low 40-60 [facility] Comment on above: Performed By: #### H EMDF, LIPD2, BMP3, HA1C2 ####[address] [place], [place] Low Density Lipoprotein 44 mg/dL Normal <100 [facility] Comment on above: Performed By: #### H EMDF, LIPD2, BMP3, HA1C2 ####[address] [place], [place] Triglyceride 252 mg/dL Abnormal <150 [facility] Comment on above: Performed By: #### H EMDF, LIPD2, BMP3, HA1C2 ####[address] Cholesterol 99 mg/dL Normal < 200 [facility] Comment on above: Performed By: #### H EMDF, LIPD2, BMP3, HA1C2 ####[address] [place], [place] Microalbumin/Creat Ratioon 0 -2018 Microalb/Creat Ratio 66.3 mg/g High 0.0-29.9 [facility] Comment on above: Performed By: #### M ACR1 ####[address] Microalbumin, Ur 98.3 mg/L Normal No Range [facility] Comment on above: Result Comment: Micr oalbumin concentrations <30 are considered normal,30-300 are considered microalbuminuria (or risk of diabeticnephropathy), and >300 are considered clinical albuminuria(clinical nephropathy).Diabetes Care,27, Supplement 1, F81-64, 2003 Performed By: #### M ACR1 ####[address] Creatinine 148.3 mg/dL Normal No Range [facility] Comment on above: Performed By: #### M ACR1 ####[address] [place], [place] CULTURE URINEon 11-21-2017 CULTURE URINE 1 Organism Klebsiell a pneumoniae>100,000 CFU/ml 1 Organism An tibiotic Result Intrp Amika jose cruz(DARIN) <= 2 S Amoxicillin/Clavulanic Acid(DARIN) <= 2 S Ampicillin(DARIN) R Ampicillin/Sulbactam(M IC) = 4 S Aztreonam(DARIN) <= 1 S Cefazolin(DARIN) <= 4 S Cefepime(DARIN) <= 1 S Ceftriaxone(DARIN) <= 1 S Ciprofloxacin(DARIN) <= 0.25 S Ertapenem(DARIN) <= 0.5 S Gentamicin(DARIN) <= 1 S Levofloxacin(DARIN) <= 0.12 S Meropenem(DARIN) <= 0.25 S Nitrofurantoin(DARIN) = 64 I Pip/Tazobactam(DARIN) <= 4 S Trimeth/Sulfa(DARIN) <= 20 S Normal [facility] Comment on above: Order Comment: Speci men Source Comment:Urine, clean catch Performed By: #### C /UR ####[facility] [place] [address]F[facility] [place], [place] [id number] Urinalysis,Macroon 8 Bilirubin (direct) 1 Normal Negative [facility] Comment on above: Performed By: #### U AMAC, UAMIC ####[address] [place], [place] Ketone,Urine 2 + mg/dL Normal Negative [facility] Comment on above: Performed By: #### U AMAC, UAMIC ####[address] [place], [place] Occult Blood,Ur 250 {RBC}/uL Normal Negative [facility] Comment on above: Performed By: #### U AMAC, UAMIC ####[address] [place], [place] Specific Schriever,Urine 1.025 Normal 1.005-1.030 [facility] Comment on above: Performed By: #### U AMAC, UAMIC ####[address] [place], [place] Total Protein,Urine 25 mg/dL Normal Negative [facility] Comment on above: Performed By: #### U AMAC, UAMIC ####[facility] [id number] [place], [place] Urine, appearance cloudy Normal Clear [facility] Comment on above: Performed By: #### U AMAC, UAMIC ####[address] [place], [place] Urine, color dk.yel Normal Lt. Yellow [facility] Comment on above: Performed By: #### U AMAC, UAMIC ####[facility] [id number] [place], [place] Urine, glucose presence NORM Normal Negative [facility] Comment on above: Performed By: #### U AMAC, UAMIC ####[facility] [id number] [place], [place] Urine, nitrite presence Positive Normal Negative [facility] Comment on above: Performed By: #### U AMAC, UAMIC ####[facility] [employer] Urine, pH 5.0 Normal 5.0-8.0 [facility] Comment on above: Performed By: #### U AMAC, UAMIC ####[facility] [id number] [place], [place] Urine, urobilinogen NORM Normal 0-1 [facility] Comment on above: Performed By: #### U AMAC, UAMIC ####[facility] [id number] [place], [place] WBC (Leukocytes) 2 + Normal Negative [facility] Comment on above: Performed By: #### U AMAC, UAMIC ####[facility] [id number] [place], [place] Urinalysis,Microscopicon Ca Oxylate Crystals Moderate (6-50) Normal Negative [facility] Comment on above: Performed By: #### U AMAC, UAMIC ####[facility] [id number] [place], [place] Urine, bacteria in sediment Loaded (>100) Normal Negative [facility] Comment on above: Performed By: #### U AMAC, UAMIC ####[facility] [id number] [place], [place] Urine, epithelial cells in sediment 3 - 5 Normal 3-5 [facility] Comment on above: Performed By: #### U AMAC, UAMIC ####[facility] [id number] [place], [place] Urine, erythrocytes in sediment by area 26 - 50 Normal 0-2 [facility] Comment on above: Performed By: #### U AMAC, UAMIC ####[facility] [id number] [place], [place] Urine, leukocytes in sedmiment /[HPF] Normal 0-5 [facility] Comment on above: Performed By: #### U AMAC, UAMIC ####[facility] [id number] [place], [place] MG Mammogram Digital Screeni ng Blon 04-12-2017 MG Mammogram Digital Screening Bl Patient Name: ANA LOPES Mammography Exam Date/Time 04/12/2017 13:50:00 EDT Exam MG Mammogram Digital Screening Bl Ordering Physician Shelli VAUGHN YESHA Accession Number [id number] CPT4 Codes 90428 () Reason For Exam Screening Report PATIENT HISTORY: Patient is postmenopausal. No known family history of cancer. Took hormonal contraceptives for 20 years. Took estrogen for 6 months. Patient's BMI is 46.3. TIME SINCE LAST MAMMOGRAM: Last mammogram was performed 1 year and 1 month ago. REASON FOR EXAM: screening, asymptomatic. PROCEDURE: MG MAMMOGRAM DIGITAL SCREENING: APRIL 12, 2017 - Bilateral CC and MLO view(s) were taken. Prior study comparison: March 27, 2016, bilateral MG mammogram digital screening performed at [facility]. September 24, 2014, bilateral MG mammogram digital screening performed at [facility]. There are scattered fibroglandular densities. No suspicious masses, architectural distortions or suspiciously clustered microcalcifications are identified. There are no significant changes when compared with prior studies. Markings on images: BB's = Nipples; skin lesions Open orutsararmiut = Palpable Line = Scar 2D digital mammography imaging was performed and reviewed with CAD. ASSESSMENT: Category 1 Negative No mammographic evidence of malignancy. RECOMMENDATION: Routine screening mammogram of both breasts in 1 year. Final Signed Date and Time: 04/15/2017 8:20 am Signed by: MD DIALLO YUN ROBERT [facility] VL Venous Duplex US Lower Ex t Lefton 01-02-2017 VL Venous Duplex US Lower Ext Left Patient Name: ANA LOPES Ultrasound Exam Date/Time 01/02/2017 14:10:48 EDT Exam VL Venous Duplex US Lower Ext Left Ordering Physician MD HEATH DIANA Accession Number [id number] CPT4 Codes 97564 () Reason For Exam swelling Report [facility] --------- --- Left Lower Extremity Venous Duplex Report Patient Name: Ana Lopes : 1945 Study Date: 01/02/2017 (71yrs) Age: 71 Account: [id number] Gender: F Loc: BP: Ordering: Trudi Heath Technologist: Ordering Physician: Trudi Heath New Car Make Ready Mechanic: Masha Yoon RVT Interpreting Physician: Kian Jauregui MD --------- --- Location: [address] INDICATIONS: Edema - pitting. Hyperpigmented gaiter zone - trauma as child, has been that color since then. --------- --- CONCLUSIONS 1. The superficial and deep systems of the left lower extremity appear to be free of thrombus. There is mild reflux noted in the left deep femoral vein. The study was suboptimal as described n the table. --------- --- IMPRESSIONS: The superficial and deep systems of the left lower extremity appear to be free of thrombus. There is mild reflux noted in the left deep femoral vein. The study was suboptimal as described n the table. --------- --- STUDY DATA: Left lower extremity venous duplex evaluation. Birthdate: Patient birthdate: 1945. Age: Patient is 71 yr old. Sex: Gender: female. Ethnicity: Ethnicity: white. Height: Height: 0 cm. Weight: Weight: 0 kg. Doppler flow study including spectral analysis, color and escobar scale imaging. Patient status: Outpatient. Procedure: A vascular evaluation was performed. The images were obtained using a PlastiPure E9 vascular ultrasound machine. The study was technically limited due to body habitus and edema. --------- --- VENOUS FLOW AND IMAGING: + +-- +-------- +------- --------- --+ !Location !Overall !Flow properties !Comments ! + +-- +-------- +------- --------- --+ !Left common !Patent !Normal phasicity; ! --! !femoral ! !spontaneous; normal ! ! ! ! !augmentation; ! ! ! ! !compressible ! ! + +-- +-------- +------- --------- --+ !Left !Patent !Compressible ! --! !saphenofemoral ! ! ! ! !junction ! ! ! ! + +-- +-------- +------- --------- --+ !Left profunda !Patent !Normal phasicity; !1.61 seconds ! !femoral ! !spontaneous; normal !reflux. ! ! ! !augmentation; reflux ! ! + +-- +-------- +------- --------- --+ !L femoral proximal!Patent !Compressible ! --! + +-- +-------- +------- --------- --+ !L femoral mid !Difficult study!Normal phasicity; ! --! ! ! !spontaneous; normal ! ! ! ! !augmentation; ! ! ! ! !compressible ! ! + +-- +-------- +------- --------- --+ !L femoral distal !Difficult study!Compressible ! --! + +-- +-------- +------- --------- --+ !Left popliteal !Patent !Normal phasicity; ! --! ! ! !spontaneous; normal ! ! ! ! !augmentation; ! ! ! ! !compressible ! ! + +-- +-------- +------- --------- --+ !Left gastrocnemius!Patent !Compressible ! --! + +-- +-------- +------- --------- --+ !Left posterior !Difficult study!Compressible !Seen at ankle ! !tibial ! ! !only. ! + +-- +-------- +------- --------- --+ !Left peroneal !Not visualized ! -!Edema. ! + +-- +-------- +------- --------- --+ !Left soleal !Not visualized ! -!Edema. ! + +-- +-------- +------- --------- --+ !Left greater !Patent !Compressible ! --! !saphenous ! ! ! ! + +-- +-------- +------- --------- --+ !Left lesser !Patent !Compressible ! --! !saphenous ! ! ! ! + +-- +-------- +------- --------- --+ !Right common !Patent !Normal phasicity; ! --! !femoral ! !spontaneous; normal ! ! ! ! !augmentation; ! ! ! ! !compressible ! ! + +-- +-------- +------- --------- --+ Electronically signed by: Kian Jauregui MD [id number] Final Dictated: 01/02/2017 5:34 pm Dictating Physician: KIAN JAUREGUI Signed Date and Time: 01/02/2017 5:34 pm Signed by: KIAN JAUREGUI [facility] Vital Signs Date Time Vital Sign Value Performing Clinician Facility 12-14-2024 15:26-0400 Body height 157.5 cm Ministerio Esposito APRN.BOXING AND PRESSING SUPERVISOR Work Phone: [facility] 12-14-2024 15:26-0400 Body mass index (BMI) [Ratio] 43.71 kg/m2 Ministerio Esposito APRN.BOXING AND PRESSING SUPERVISOR Work Phone: [facility] 12-14-2024 15:26-0400 Body weight 108.41 kg Ministerio Esposito APRN.BOXING AND PRESSING SUPERVISOR Work Phone: [facility] Comment on above: PT REPORTED 12-14-2024 15:26-0400 Diastolic blood pressure 66 mm[Hg] Ministerio Esposito APRN.BOXING AND PRESSING SUPERVISOR Work Phone: [facility] 12-14-2024 15:26-0400 Heart rate 81 /min Ministerio Esposito APRN.BOXING AND PRESSING SUPERVISOR Work Phone: [facility] 12-14-2024 15:26-0400 SaO2% (BldA) [Mass fraction] 96 % Ministerio Esposito APRN.BOXING AND PRESSING SUPERVISOR Work Phone: [facility] 12-14-2024 15:26-0400 Systolic blood pressure 104 mm[Hg] Ministerio Esposito APRN.BOXING AND PRESSING SUPERVISOR Work Phone: [facility] 11-18-2024 10:32-0400 Body height 157.5 cm Jason Moran MD Work Phone: [facility] 11-18-2024 10:32-0400 Body mass index (BMI) [Ratio] 40.97 kg/m2 Jason Moran MD Work Phone: [facility] 11-18-2024 10:32-0400 Body weight 101.61 kg Jason Moran MD Work Phone: [facility] 11-18-2024 10:32-0400 Diastolic blood pressure 62 mm[Hg] Jason Moran MD Work Phone: [facility] 11-18-2024 10:32-0400 Heart rate 104 /min Jason Moran MD Work Phone: [facility] 11-18-2024 10:32-0400 SaO2% (BldA) [Mass fraction] 92 % Jason Moran MD Work Phone: [facility] Comment on above: 2L O2 C 11-18-2024 10:32-0400 Systolic blood pressure 100 mm[Hg] Jason Moran MD Work Phone: [facility] 09-14-2024 09:14-0400 Body height 157.5 cm Jason Moran MD Work Phone: [facility] 09-14-2024 09:14-0400 Body mass index (BMI) [Ratio] 41.52 kg/m2 Jason Moran MD Work Phone: [employer] [facility] 09-14-2024 09:14-0400 Body weight 102.97 kg Jason Moran MD Work Phone: [facility] 09-14-2024 09:14-0400 Diastolic blood pressure 70 mm[Hg] Jason Moran MD Work Phone: [employer] [facility] 09-14-2024 09:14-0400 Heart rate 62 /min Jason Moran MD Work Phone: [employer] [facility] 09-14-2024 09:14-0400 SaO2% (BldA) [Mass fraction] 93 % Jason Moran MD Work Phone: [employer] 09-14-2024 09:14-0400 Systolic blood pressure 121 mm[Hg] Jason Moran MD Work Phone: [employer] 08-13-2024 09:31-0500 Body height 157.5 cm Vonnie Love APRN - BOXING AND PRESSING SUPERVISOR Work Phone: [employer] 08-13-2024 09:31-0500 Body mass index (BMI) [Ratio] 40.97 kg/m2 Vonnie Love APRN - BOXING AND PRESSING SUPERVISOR Work Phone: [employer] 08-13-2024 09:31-0500 Body weight 101.61 kg Vonnie Love APRN - BOXING AND PRESSING SUPERVISOR Work Phone: [employer] 08-13-2024 09:31-0500 Diastolic blood pressure 70 mm[Hg] Vonnie Love APRN - BOXING AND PRESSING SUPERVISOR Work Phone: [employer] 08-13-2024 09:31-0500 Heart rate 60 /min Vonnie Love APRN - BOXING AND PRESSING SUPERVISOR Work Phone: [employer] 08-13-2024 09:31-0500 SaO2% (BldA) [Mass fraction] 91 % Vonnie Love APRN - [employer] Work Phone: [employer] Comment on above: 2 L O2 C 08-13-2024 09:31-0500 Systolic blood pressure 107 mm[Hg] Vonnie Love APRN - BOXING AND PRESSING SUPERVISOR Work Phone: [employer] 07-15-2024 14:36-0500 Heart rate 80 /min Selwyn Lai MD Work Phone: [employer] 07-15-2024 14:36-0500 Respiratory rate 18 /min Selwyn Lai MD Work Phone: [employer] 07-15-2024 14:36-0500 SaO2% (BldA) [Mass fraction] 95 % Selwyn Lai MD Work Phone: [employer] 07-15-2024 08:46-0500 Body temperature 97.7 [degF] Selwyn Lai MD Work Phone: [facility] 07-15-2024 08:46-0500 Diastolic blood pressure 58 mm[Hg] Selwyn Lai MD Work Phone: [facility] 07-15-2024 08:46-0500 Systolic blood pressure 111 mm[Hg] Selwyn Lai MD Work Phone: [facility] 07-15-2024 03:58-0500 Body mass index (BMI) [Ratio] 38.98 kg/m2 Selwyn Lai MD Work Phone: [facility] 07-15-2024 03:58-0500 Body weight 103 kg Selwyn Lai MD Work Phone: [facility] 07-13-2024 11:58-0500 Body height 162.6 cm Selwyn Lai MD Work Phone: [facility] 11-21-2023 08:50-0400 Body height 157.5 cm Juliet Fey WEIGH TANK OPERATOR.BOXING AND PRESSING SUPERVISOR Work Phone: [facility] 11-21-2023 08:50-0400 Body temperature 97 [degF] Juliet Fey WEIGH TANK OPERATOR.BOXING AND PRESSING SUPERVISOR Work Phone: [facility] 11-21-2023 08:50-0400 Diastolic blood pressure 76 mm[Hg] Juliet Fey WEIGH TANK OPERATOR.BOXING AND PRESSING SUPERVISOR Work Phone: [facility] 11-21-2023 08:50-0400 Heart rate 89 /min Juliet Fey WEIGH TANK OPERATOR.BOXING AND PRESSING SUPERVISOR Work Phone: [facility] 11-21-2023 08:50-0400 Respiratory rate 14 /min Juliet Fey WEIGH TANK OPERATOR.BOXING AND PRESSING SUPERVISOR Work Phone: [facility] 11-21-2023 08:50-0400 SaO2% (BldA) [Mass fraction] 97 % Juliet Fey WEIGH TANK OPERATOR.BOXING AND PRESSING SUPERVISOR Work Phone: [facility] Comment on above: 11-21-2023 08:50-0400 Systolic blood pressure 134 mm[Hg] Juliet Fey WEIGH TANK OPERATOR.BOXING AND PRESSING SUPERVISOR Work Phone: [facility] 11-15-2023 15:51-0400 Body temperature 98.01 [degF] Sharyn Kittoe WEIGH TANK OPERATOR.BOXING AND PRESSING SUPERVISOR Work Phone: [facility] 11-15-2023 15:51-0400 Diastolic blood pressure 66 mm[Hg] Sharyn Kittoe WEIGH TANK OPERATOR.BOXING AND PRESSING SUPERVISOR Work Phone: [facility] 11-15-2023 15:51-0400 Heart rate 78 /min Sharyn Kittoe WEIGH TANK OPERATOR.BOXING AND PRESSING SUPERVISOR Work Phone: [facility] 11-15-2023 15:51-0400 Respiratory rate 18 /min Sharyn Kittoe WEIGH TANK OPERATOR.BOXING AND PRESSING SUPERVISOR Work Phone: [facility] 11-15-2023 15:51-0400 SaO2% (BldA) [Mass fraction] 98 % Sharyn Kittoe WEIGH TANK OPERATOR.BOXING AND PRESSING SUPERVISOR Work Phone: [facility] 11-15-2023 15:51-0400 Systolic blood pressure 126 mm[Hg] Sharyn Kittoe WEIGH TANK OPERATOR.BOXING AND PRESSING SUPERVISOR Work Phone: [facility] 11-13-2023 12:47-0400 Body temperature 98.01 [degF] Sharyn Kittoe WEIGH TANK OPERATOR.BOXING AND PRESSING SUPERVISOR Work Phone: [facility] 11-13-2023 12:47-0400 Diastolic blood pressure 76 mm[Hg] Sharyn Kittoe WEIGH TANK OPERATOR.BOXING AND PRESSING SUPERVISOR Work Phone: [facility] 11-13-2023 12:47-0400 Heart rate 68 /min Sharyn Kittoe WEIGH TANK OPERATOR.BOXING AND PRESSING SUPERVISOR Work Phone: [facility] 11-13-2023 12:47-0400 Respiratory rate 18 /min Sharyn Kittoe WEIGH TANK OPERATOR.BOXING AND PRESSING SUPERVISOR Work Phone: [facility] 11-13-2023 12:47-0400 SaO2% (BldA) [Mass fraction] 98 % Sharyn Kittoe WEIGH TANK OPERATOR.BOXING AND PRESSING SUPERVISOR Work Phone: [facility] 11-13-2023 12:47-0400 Systolic blood pressure 132 mm[Hg] Sharyn Kittoe WEIGH TANK OPERATOR.BOXING AND PRESSING SUPERVISOR Work Phone: [facility] 11-12-2023 08:55-0400 Body temperature 98.01 [degF] Sharyn Kittoe WEIGH TANK OPERATOR.BOXING AND PRESSING SUPERVISOR Work Phone: [facility] 11-12-2023 08:55-0400 Diastolic blood pressure 62 mm[Hg] Sharyn Kittoe WEIGH TANK OPERATOR.BOXING AND PRESSING SUPERVISOR Work Phone: [facility] 11-12-2023 08:55-0400 Heart rate 78 /min Sharyn Kittoe WEIGH TANK OPERATOR.BOXING AND PRESSING SUPERVISOR Work Phone: [facility] 11-12-2023 08:55-0400 Respiratory rate 18 /min Sharyn Kittoe WEIGH TANK OPERATOR.BOXING AND PRESSING SUPERVISOR Work Phone: [facility] 11-12-2023 08:55-0400 SaO2% (BldA) [Mass fraction] 98 % Sharyn Kittoe WEIGH TANK OPERATOR.BOXING AND PRESSING SUPERVISOR Work Phone: [facility] 11-12-2023 08:55-0400 Systolic blood pressure 126 mm[Hg] Sharyn Kittoe WEIGH TANK OPERATOR.BOXING AND PRESSING SUPERVISOR Work Phone: [facility] 11-08-2023 15:23-0400 Body temperature 97.11 [degF] Sharyn Kittoe WEIGH TANK OPERATOR.BOXING AND PRESSING SUPERVISOR Work Phone: [facility] 11-08-2023 15:23-0400 Diastolic blood pressure 56 mm[Hg] Sharyn Kittoe WEIGH TANK OPERATOR.BOXING AND PRESSING SUPERVISOR Work Phone: [facility] 11-08-2023 15:23-0400 Heart rate 78 /min Sharyn Kittoe WEIGH TANK OPERATOR.BOXING AND PRESSING SUPERVISOR Work Phone: [facility] 11-08-2023 15:23-0400 Respiratory rate 18 /min Sharyn Kittoe WEIGH TANK OPERATOR.BOXING AND PRESSING SUPERVISOR Work Phone: [facility] 11-08-2023 15:23-0400 SaO2% (BldA) [Mass fraction] 98 % Sharyn Kittoe WEIGH TANK OPERATOR.BOXING AND PRESSING SUPERVISOR Work Phone: [facility] 11-08-2023 15:23-0400 Systolic blood pressure 124 mm[Hg] Sharyn Kimotoe WEIGH TANK OPERATOR.BOXING AND PRESSING SUPERVISOR Work Phone: [facility] 11-06-2023 14:19-0400 Body mass index (BMI) [Ratio] 45.32 kg/m2 Omaira Francisco Javier WEIGH TANK OPERATOR.BOXING AND PRESSING SUPERVISOR Work Phone: [facility] 11-06-2023 14:19-0400 Body temperature 97.9 [degF] Omaira Francisco Javier WEIGH TANK OPERATOR.BOXING AND PRESSING SUPERVISOR Work Phone: [facility] 11-06-2023 14:19-0400 Body weight 112.4 kg Omaira Francisco Javier WEIGH TANK OPERATOR.BOXING AND PRESSING SUPERVISOR Work Phone: [facility] 11-06-2023 14:19-0400 Diastolic blood pressure 68 mm[Hg] Omaira Francisco Javier WEIGH TANK OPERATOR.BOXING AND PRESSING SUPERVISOR Work Phone: [facility] 11-06-2023 14:19-0400 Heart rate 72 /min Omaira Francisco Javier WEIGH TANK OPERATOR.BOXING AND PRESSING SUPERVISOR Work Phone: [facility] 11-06-2023 14:19-0400 Respiratory rate 20 /min Omaira Francisco Javier WEIGH TANK OPERATOR.BOXING AND PRESSING SUPERVISOR Work Phone: [facility] 11-06-2023 14:19-0400 SaO2% (BldA) [Mass fraction] 95 % Omaira Francisco Javier WEIGH TANK OPERATOR.BOXING AND PRESSING SUPERVISOR Work Phone: [facility] 11-06-2023 14:19-0400 Systolic blood pressure 126 mm[Hg] Omaira Francisco Javier WEIGH TANK OPERATOR.BOXING AND PRESSING SUPERVISOR Work Phone: [facility] 11-05-2023 18:19-0400 Body temperature 97.9 [degF] Sharyn Mccaine WEIGH TANK OPERATOR.BOXING AND PRESSING SUPERVISOR Work Phone: [facility] 11-05-2023 18:19-0400 Diastolic blood pressure 72 mm[Hg] Sharyn Malintoe WEIGH TANK OPERATOR.BOXING AND PRESSING SUPERVISOR Work Phone: [facility] 11-05-2023 18:19-0400 Heart rate 67 /min Sharyn Kittoe WEIGH TANK OPERATOR.BOXING AND PRESSING SUPERVISOR Work Phone: [facility] 11-05-2023 18:19-0400 Respiratory rate 18 /min Sharyn Kittoe WEIGH TANK OPERATOR.BOXING AND PRESSING SUPERVISOR Work Phone: [facility] 11-05-2023 18:19-0400 SaO2% (BldA) [Mass fraction] 98 % Sharyn Kittoe WEIGH TANK OPERATOR.BOXING AND PRESSING SUPERVISOR Work Phone: [facility] 11-05-2023 18:19-0400 Systolic blood pressure 124 mm[Hg] Sharyn Kittoe WEIGH TANK OPERATOR.BOXING AND PRESSING SUPERVISOR Work Phone: [facility] 11-01-2023 19:35-0400 Body temperature 98.01 [degF] Sharyn Kittoe WEIGH TANK OPERATOR.BOXING AND PRESSING SUPERVISOR Work Phone: [facility] 11-01-2023 19:35-0400 Diastolic blood pressure 66 mm[Hg] Sharyn Kittoe WEIGH TANK OPERATOR.BOXING AND PRESSING SUPERVISOR Work Phone: [facility] 11-01-2023 19:35-0400 Heart rate 70 /min Sharyn Kittoe WEIGH TANK OPERATOR.BOXING AND PRESSING SUPERVISOR Work Phone: [facility] 11-01-2023 19:35-0400 Respiratory rate 18 /min Sahryn Kittoe WEIGH TANK OPERATOR.BOXING AND PRESSING SUPERVISOR Work Phone: [facility] 11-01-2023 19:35-0400 SaO2% (BldA) [Mass fraction] 97 % Sharyn Kittoe WEIGH TANK OPERATOR.BOXING AND PRESSING SUPERVISOR Work Phone: [facility] 11-01-2023 19:35-0400 Systolic blood pressure 124 mm[Hg] Sharyn Kittoe WEIGH TANK OPERATOR.BOXING AND PRESSING SUPERVISOR Work Phone: [facility] 10-29-2023 15:26-0400 Body temperature 98.01 [degF] Sharyn Kittoe WEIGH TANK OPERATOR.BOXING AND PRESSING SUPERVISOR Work Phone: [facility] 10-29-2023 15:26-0400 Diastolic blood pressure 60 mm[Hg] Sharyn Kittoe WEIGH TANK OPERATOR.BOXING AND PRESSING SUPERVISOR Work Phone: [facility] 10-29-2023 15:26-0400 Heart rate 65 /min Sharny Kittoe WEIGH TANK OPERATOR.BOXING AND PRESSING SUPERVISOR Work Phone: [facility] 10-29-2023 15:26-0400 Respiratory rate 18 /min Sharyn Kittoe WEIGH TANK OPERATOR.BOXING AND PRESSING SUPERVISOR Work Phone: [facility] 10-29-2023 15:26-0400 SaO2% (BldA) [Mass fraction] 98 % Sharyn Kittoe WEIGH TANK OPERATOR.BOXING AND PRESSING SUPERVISOR Work Phone: [facility] 10-29-2023 15:26-0400 Systolic blood pressure 124 mm[Hg] Sharyn Kittoe WEIGH TANK OPERATOR.BOXING AND PRESSING SUPERVISOR Work Phone: [facility] 10-15-2023 09:32-0400 Body height 157.5 cm Ese Marmolejo DPM Work Phone: [facility] 10-15-2023 09:32-0400 Body weight 99.79 kg Ese Marmolejo DPM Work Phone: [facility] 10-15-2023 09:32-0400 Respiratory rate 16 /min Ese Marmolejo DPM Work Phone: [facility] 06-08-2023 18:39-0500 Body temperature 97.81 [degF] Sharyn Kittoe WEIGH TANK OPERATOR.BOXING AND PRESSING SUPERVISOR Work Phone: [facility] 06-08-2023 18:39-0500 Diastolic blood pressure 60 mm[Hg] Sharyn Kittoe WEIGH TANK OPERATOR.BOXING AND PRESSING SUPERVISOR Work Phone: [facility] 06-08-2023 18:39-0500 Heart rate 69 /min Sharyn Kittoe WEIGH TANK OPERATOR.BOXING AND PRESSING SUPERVISOR Work Phone: [facility] 06-08-2023 18:39-0500 Respiratory rate 18 /min Sharyn Kittoe WEIGH TANK OPERATOR.BOXING AND PRESSING SUPERVISOR Work Phone: [facility] 06-08-2023 18:39-0500 SaO2% (BldA) [Mass fraction] 98 % Sharyn Kittoe WEIGH TANK OPERATOR.BOXING AND PRESSING SUPERVISOR Work Phone: [facility] 06-08-2023 18:39-0500 Systolic blood pressure 102 mm[Hg] Sharyn Kittoe WEIGH TANK OPERATOR.BOXING AND PRESSING SUPERVISOR Work Phone: [facility] 05-29-2023 07:32-0500 Body temperature 96.91 [degF] Sharyn Kittoe WEIGH TANK OPERATOR.BOXING AND PRESSING SUPERVISOR Work Phone: [facility] 05-29-2023 07:32-0500 Diastolic blood pressure 68 mm[Hg] Sharyn Kittoe WEIGH TANK OPERATOR.BOXING AND PRESSING SUPERVISOR Work Phone: [facility] 05-29-2023 07:32-0500 Heart rate 79 /min Sharyn Kittoe WEIGH TANK OPERATOR.BOXING AND PRESSING SUPERVISOR Work Phone: [facility] 05-29-2023 07:32-0500 Respiratory rate 18 /min Sharyn Kittoe WEIGH TANK OPERATOR.BOXING AND PRESSING SUPERVISOR Work Phone: [facility] 05-29-2023 07:32-0500 SaO2% (BldA) [Mass fraction] 98 % Sharyn Kittoe WEIGH TANK OPERATOR.BOXING AND PRESSING SUPERVISOR Work Phone: [facility] 05-29-2023 07:32-0500 Systolic blood pressure 109 mm[Hg] Sharyn Kittoe WEIGH TANK OPERATOR.BOXING AND PRESSING SUPERVISOR Work Phone: [facility] 05-28-2023 14:13-0500 Body height 157.5 cm Giorgio Ashland WEIGH TANK OPERATOR.BOXING AND PRESSING SUPERVISOR Work Phone: [facility] 05-28-2023 14:13-0500 Body temperature 97.2 [degF] Giorgio Ashland WEIGH TANK OPERATOR.BOXING AND PRESSING SUPERVISOR Work Phone: [facility] 05-28-2023 14:13-0500 Body weight 109.14 kg Giorgio [employer] WEIGH TANK OPERATOR.BOXING AND PRESSING SUPERVISOR Work Phone: [facility] 05-28-2023 14:13-0500 Diastolic blood pressure 68 mm[Hg] Giorgio Ashland WEIGH TANK OPERATOR.BOXING AND PRESSING SUPERVISOR Work Phone: [facility] 05-28-2023 14:13-0500 Heart rate 66 /min Giorgio [employer]acing [employer] WEIGH TANK OPERATOR.BOXING AND PRESSING SUPERVISOR Work Phone: [facility] 05-28-2023 14:13-0500 Respiratory rate 18 /min Giorgio Facing [employer] WEIGH TANK OPERATOR.BOXING AND PRESSING SUPERVISOR Work Phone: [facility] 05-28-2023 14:13-0500 SaO2% (BldA) [Mass fraction] 99 % Giorgio Ashland WEIGH TANK OPERATOR.BOXING AND PRESSING SUPERVISOR Work Phone: [facility] 05-28-2023 14:13-0500 Systolic blood pressure 144 mm[Hg] Giorgio Ashland WEIGH TANK OPERATOR.BOXING AND PRESSING SUPERVISOR Work Phone: [facility] 04-12-2023 14:24-0400 Diastolic blood pressure 68 mm[Hg] Susan Engelorf DO Work Phone: [facility] 04-12-2023 14:24-0400 Systolic blood pressure 120 mm[Hg] Susan Engelorf DO Work Phone: [facility] 04-12-2023 13:29-0400 Body height 157.5 cm Susan [employer] DO Work Phone: [facility] 04-12-2023 13:29-0400 Body temperature 97.39 [degF] Susan [employer] DO Work Phone: [facility] 04-12-2023 13:29-0400 Heart rate 97 /min Susan [employer] DO Work Phone: [facility] 04-12-2023 13:29-0400 Respiratory rate 20 /min Susan [employer] DO Work Phone: [facility] 04-12-2023 13:29-0400 SaO2% (BldA) [Mass fraction] 90 % Susan [employer] DO Work Phone: [facility] 03-29-2023 21:13-0400 Body temperature 98.01 [degF] Sharyn Andrade WEIGH TANK OPERATOR.BOXING AND PRESSING SUPERVISOR Work Phone: [facility] 03-29-2023 21:13-0400 Diastolic blood pressure 67 mm[Hg] Sharyn Kittoe WEIGH TANK OPERATOR.BOXING AND PRESSING SUPERVISOR Work Phone: [facility] 03-29-2023 21:13-0400 Heart rate 68 /min Sharyn Kittoe WEIGH TANK OPERATOR.BOXING AND PRESSING SUPERVISOR Work Phone: [facility] 03-29-2023 21:13-0400 Respiratory rate 18 /min Sharyn Kittoe WEIGH TANK OPERATOR.BOXING AND PRESSING SUPERVISOR Work Phone: [facility] 03-29-2023 21:13-0400 SaO2% (BldA) [Mass fraction] 98 % Sharyn Kittoe WEIGH TANK OPERATOR.BOXING AND PRESSING SUPERVISOR Work Phone: [facility] 03-29-2023 21:13-0400 Systolic blood pressure 122 mm[Hg] Sharyn Kittoe WEIGH TANK OPERATOR.BOXING AND PRESSING SUPERVISOR Work Phone: [facility] 03-26-2023 09:16-0400 Body temperature 98.01 [degF] Sharyn Kittoe WEIGH TANK OPERATOR.BOXING AND PRESSING SUPERVISOR Work Phone: [facility] 03-26-2023 09:16-0400 Diastolic blood pressure 65 mm[Hg] Sharyn Kittoe WEIGH TANK OPERATOR.BOXING AND PRESSING SUPERVISOR Work Phone: [facility] 03-26-2023 09:16-0400 Heart rate 68 /min Sharyn Kittoe WEIGH TANK OPERATOR.BOXING AND PRESSING SUPERVISOR Work Phone: [facility] 03-26-2023 09:16-0400 Respiratory rate 18 /min Sharyn Kittoe WEIGH TANK OPERATOR.BOXING AND PRESSING SUPERVISOR Work Phone: [facility] 03-26-2023 09:16-0400 SaO2% (BldA) [Mass fraction] 98 % Sharyn Kittoe WEIGH TANK OPERATOR.BOXING AND PRESSING SUPERVISOR Work Phone: [facility] 03-26-2023 09:16-0400 Systolic blood pressure 122 mm[Hg] Sharyn Kittoe WEIGH TANK OPERATOR.BOXING AND PRESSING SUPERVISOR Work Phone: [facility] 03-19-2023 09:24-0400 Body temperature 98.01 [degF] Sharyn Kittoe WEIGH TANK OPERATOR.BOXING AND PRESSING SUPERVISOR Work Phone: [facility] 03-19-2023 09:24-0400 Diastolic blood pressure 78 mm[Hg] Sharyn Kittoe WEIGH TANK OPERATOR.BOXING AND PRESSING SUPERVISOR Work Phone: [facility] 03-19-2023 09:24-0400 Heart rate 78 /min Sharyn Kittoe WEIGH TANK OPERATOR.BOXING AND PRESSING SUPERVISOR Work Phone: [facility] 03-19-2023 09:24-0400 Respiratory rate 18 /min Sharyn Kittoe WEIGH TANK OPERATOR.BOXING AND PRESSING SUPERVISOR Work Phone: [facility] 03-19-2023 09:24-0400 SaO2% (BldA) [Mass fraction] 97 % Sharyn Kittoe WEIGH TANK OPERATOR.BOXING AND PRESSING SUPERVISOR Work Phone: [facility] 03-19-2023 09:24-0400 Systolic blood pressure 116 mm[Hg] Sharyn Kittoe WEIGH TANK OPERATOR.BOXING AND PRESSING SUPERVISOR Work Phone: [facility] 03-15-2023 18:37-0400 Body temperature 98.01 [degF] Sharyn Kittoe WEIGH TANK OPERATOR.BOXING AND PRESSING SUPERVISOR Work Phone: [facility] 03-15-2023 18:37-0400 Diastolic blood pressure 61 mm[Hg] Sharyn Kittoe WEIGH TANK OPERATOR.BOXING AND PRESSING SUPERVISOR Work Phone: [facility] 03-15-2023 18:37-0400 Heart rate 65 /min Sharyn Kittoe WEIGH TANK OPERATOR.BOXING AND PRESSING SUPERVISOR Work Phone: [facility] 03-15-2023 18:37-0400 Respiratory rate 18 /min Sharyn Kittoe WEIGH TANK OPERATOR.BOXING AND PRESSING SUPERVISOR Work Phone: [facility] 03-15-2023 18:37-0400 SaO2% (BldA) [Mass fraction] 98 % Sharyn Kittoe WEIGH TANK OPERATOR.BOXING AND PRESSING SUPERVISOR Work Phone: [facility] 03-15-2023 18:37-0400 Systolic blood pressure 95 mm[Hg] Sharyn Kittoe WEIGH TANK OPERATOR.BOXING AND PRESSING SUPERVISOR Work Phone: [facility] 03-13-2023 11:33-0400 Body temperature 98.01 [degF] Sharyn Kittoe WEIGH TANK OPERATOR.BOXING AND PRESSING SUPERVISOR Work Phone: [facility] 03-13-2023 11:33-0400 Diastolic blood pressure 70 mm[Hg] Sharyn Kittoe WEIGH TANK OPERATOR.BOXING AND PRESSING SUPERVISOR Work Phone: [facility] 03-13-2023 11:33-0400 Heart rate 65 /min Sharyn Kittoe WEIGH TANK OPERATOR.BOXING AND PRESSING SUPERVISOR Work Phone: [facility] 03-13-2023 11:33-0400 Respiratory rate 18 /min Sharyn Kittoe WEIGH TANK OPERATOR.BOXING AND PRESSING SUPERVISOR Work Phone: [facility] 03-13-2023 11:33-0400 SaO2% (BldA) [Mass fraction] 98 % Sharyn Kittoe WEIGH TANK OPERATOR.BOXING AND PRESSING SUPERVISOR Work Phone: [facility] 03-13-2023 11:33-0400 Systolic blood pressure 120 mm[Hg] Sharyn Kittoe WEIGH TANK OPERATOR.BOXING AND PRESSING SUPERVISOR Work Phone: [facility] 01-18-2023 11:27-0400 Body height 157.5 cm Antonio Vaughn DO Work Phone: [facility] 01-18-2023 11:27-0400 Body temperature 97.59 [degF] Antonio Vaughn DO Work Phone: [facility] 01-18-2023 11:27-0400 Body weight 119.3 kg Antonio Vaughn DO Work Phone: [facility] 01-18-2023 11:27-0400 Diastolic blood pressure 71 mm[Hg] Antonio Vaughn DO Work Phone: [facility] 01-18-2023 11:27-0400 Heart rate 83 /min Antonio Vaughn DO Work Phone: [facility] 01-18-2023 11:27-0400 Respiratory rate 22 /min Antonio Vaughn DO Work Phone: [facility] 01-18-2023 11:27-0400 SaO2% (BldA) [Mass fraction] 93 % Antonio Vaughn DO Work Phone: [facility] 01-18-2023 11:27-0400 Systolic blood pressure 133 mm[Hg] Antonio Vaughn DO Work Phone: [facility] 01-01-2023 10:13-0400 Body height 157.5 cm Ese Marmolejo DPM Work Phone: [facility] 01-01-2023 10:13-0400 Body weight 120.2 kg Ese Marmolejo DPM Work Phone: [facility] 01-01-2023 10:13-0400 Respiratory rate 18 /min Ese Marmolejo DPM Work Phone: [facility] 10-22-2022 13:27-0400 Body height 157.5 cm Jennifer Hawkins MD Work Phone: [facility] 10-22-2022 13:27-0400 Body temperature 97.11 [degF] Jennifer Hawkins MD Work Phone: [facility] 10-22-2022 13:27-0400 Body weight 120.39 kg Jennifer Hawkins MD Work Phone: [facility] 10-22-2022 13:27-0400 Diastolic blood pressure 90 mm[Hg] Jennifer Hawkins MD Work Phone: [facility] 10-22-2022 13:27-0400 Heart rate 111 /min Jennifer Hawkins MD Work Phone: [facility] 10-22-2022 13:27-0400 SaO2% (BldA) [Mass fraction] 90 % Jennifer Hawkins MD Work Phone: [facility] 10-22-2022 13:27-0400 Systolic blood pressure 168 mm[Hg] Jennifer Hawkins MD Work Phone: [facility] 10-02-2022 09:48-0400 Body height 157.5 cm Ese Marmolejo DPM Work Phone: [facility] 10-02-2022 09:48-0400 Body weight 113.4 kg Ese Marmolejo DPM Work Phone: [facility] 10-02-2022 09:48-0400 Respiratory rate 16 /min Ese Marmolejo DPM Work Phone: [facility] 09-21-2022 13:55-0400 Body height 157.5 cm Ana Engel DO Work Phone: [facility] 09-21-2022 13:55-0400 Body temperature 98.49 [degF] Ana Engel DO Work Phone: [facility] 09-21-2022 13:55-0400 Diastolic blood pressure 64 mm[Hg] Ana Engel DO Work Phone: [facility] 09-21-2022 13:55-0400 Heart rate 80 /min Ana Enegl DO Work Phone: [facility] 09-21-2022 13:55-0400 Respiratory rate 22 /min Ana Engel DO Work Phone: [facility] 09-21-2022 13:55-0400 SaO2% (BldA) [Mass fraction] 94 % Ana Engel DO Work Phone: [facility] 09-21-2022 13:55-0400 Systolic blood pressure 127 mm[Hg] Ana Engel DO Work Phone: [facility] 02-26-2022 14:56-0400 Diastolic blood pressure 80 mm[Hg] Dahiana Martin MD Work Phone: [facility] 02-26-2022 14:56-0400 Systolic blood pressure 142 mm[Hg] Dahiana Martin MD Work Phone: [facility] 02-26-2022 14:29-0400 Body height 157.5 cm Dahiana Martin MD Work Phone: [facility] 02-26-2022 14:29-0400 Body temperature 97.2 [degF] Dahiana Martin MD Work Phone: [facility] 02-26-2022 14:29-0400 Heart rate 78 /min Dahiana Martin MD Work Phone: [facility] 02-26-2022 14:29-0400 Respiratory rate 16 /min Dahiana Martin MD Work Phone: [facility] 02-09-2022 13:30-0400 Diastolic blood pressure 90 mm[Hg] Lorenzo Torrez MD Work Phone: [facility] 02-09-2022 13:30-0400 Systolic blood pressure 160 mm[Hg] Lorenzo Torrez MD Work Phone: [facility] 02-09-2022 13:20-0400 Body temperature 97 [degF] Lorenzo Torrez MD Work Phone: [facility] 02-09-2022 13:20-0400 Heart rate 95 /min Lorenzo Torrez MD Work Phone: [facility] 02-09-2022 13:20-0400 Respiratory rate 18 /min Lorenzo Torrez MD Work Phone: [facility] 02-09-2022 13:20-0400 SaO2% (BldA) [Mass fraction] 94 % Lorenzo Torrez MD Work Phone: [facility] 01-30-2022 11:30-0400 Diastolic blood pressure 70 mm[Hg] Dahiana Martin MD Work Phone: [facility] 01-30-2022 11:30-0400 Heart rate 94 /min Dahiana Martin MD Work Phone: [facility] 01-30-2022 11:30-0400 SaO2% (BldA) [Mass fraction] 94 % Dahiana Martin MD Work Phone: [facility] 01-30-2022 11:30-0400 Systolic blood pressure 126 mm[Hg] Dahiana Martin MD Work Phone: [facility] 12-21-2021 11:17-0400 Body height 157.5 cm Eliseally Wan DO Work Phone: [facility] 12-21-2021 11:17-0400 Body temperature 97 [degF] Eliseally Wan DO Work Phone: [facility] 12-21-2021 11:17-0400 Diastolic blood pressure 76 mm[Hg] Elise Wan DO Work Phone: [facility] 12-21-2021 11:17-0400 Heart rate 105 /min Elise Wan DO Work Phone: [facility] 12-21-2021 11:17-0400 Respiratory rate 16 /min Elise Wan DO Work Phone: [facility] 12-21-2021 11:17-0400 SaO2% (BldA) [Mass fraction] 94 % Elise Wan DO Work Phone: [facility] 12-21-2021 11:17-0400 Systolic blood pressure 150 mm[Hg] Eliseally Wan DO Work Phone: [facility] 10-31-2021 09:20-0400 Body height 157.5 cm Ese Bennettchuyita DPM Work Phone: [facility] 10-31-2021 09:20-0400 Body weight 120.66 kg Ese Kichuyita DPM Work Phone: [facility] 10-31-2021 09:20-0400 Respiratory rate 16 /min Ese Kichuyita DPM Work Phone: [facility] Encounters Encounter Date Encounter Type Care Provider Facility Start: 12-23-2024 End: 12-25-2024 Telephone encounter Ministerio Esposito APRN.BOXING AND PRESSING SUPERVISOR Work Phone: [facility] [place] Start: 12-14-2024 End: 12-14-2024 Patient encounter procedure Ministerio Esposito APRN.BOXING AND PRESSING SUPERVISOR Work Phone: [facility] [place] Comment on above: Chronic heart failur e with preserved ejection fraction (HCC) (Primary Dx); Primary hypertension; Mixed hyperlipidemia; Presence of cardiac pacemaker; MARY (obstructive sleep apnea); Syncope and collapse Start: 12-14-2024 End: 12-14-2024 ambulatory SELF Facility:[facility] Start: 12-10-2024 End: 12-10-2024 Telephone encounter Ruchi Garcia RN [facility] Comment on above: [place] HFC; hospital ref erral Start: 12-07-2024 End: 12-09-2024 Evaluation and management of inpatient YAZMIN MITCHELL Facility:[facility] Start: 12-07-2024 End: 12-07-2024 Telephone encounter Wilma Leiva RN [facility] Comment on above: Orders; [place] HFC appt contact-no response/deferral Start: 11-18-2024 End: 11-18-2024 Office outpatient visit 25 minutes Jason Moran MD Work Phone: [facility] Comment on above: Pulmonary fibrosis ( HCC) (Primary Dx); Chronic respiratory failure with hypoxia (HCC); Chronic bronchitis, unspecified chronic bronchitis type (HCC); MARY (obstructive sleep apnea); Morbid obesity (HCC); Allergic rhinitis, unspecified seasonality, unspecified trigger Start: 11-18-2024 End: 11-18-2024 ambulatory [facility] Start: 11-16-2024 End: 11-16-[address] Jayla Acevedo MD [place] Work Phone: Start: 11-16-2024 End: 11-16-2024 Departed Referred [facility] Start: 11-16-2024 End: 11-16-2024 [facility] Facility:[place] Start: 11-13-2024 ambulatory [facility] kasandra OLS Facility:[place] Start: 11-13-2024 Registered Referred Sadie Costa [employer] Start: 11-06-2024 End: 11-06-2024 Telephone encounter Rosalind Carnes RN [facility] Comment on above: Appointment ([facility] ailure [facility] appt/ SNF letter) Start: 11-05-2024 End: 11-06-2024 Follow-up encounter Leydi Leon MD Work Phone: [facility] Start: 11-05-2024 End: 11-06-2024 Professional / ancillary services management Leydi Leon MD Work Phone: [facility] Start: 11-04-2024 End: 11-06-2024 ambulatory ISIAH ACEVEDO Facility:[place] [facility] Start: 11-04-2024 End: 11-04-2024 Follow-up encounter Rem Ck [facility] Comment on above: Remote Pacemaker Fol low Up Start: 11-04-2024 End: 11-04-2024 Patient encounter procedure Rem Device Ck [facility] Start: 11-02-2024 End: 11-05-2024 Evaluation and management of inpatient ISIAH ACEVEDO Facility:[place] [facility] Start: 09-25-2024 End: 09-25-[address] Jayla Acevedo MD [place] Work Phone: Start: 09-25-2024 End: 09-25-2024 Departed Referred Luis Phipps Iram Zoe [facility] Start: 09-25-2024 Registered Referred Luis Phipps Iram Zoe [facility] Start: 09-25-2024 End: 09-25-2024 ambulatory Luis TOLENTINO Facility:[place] Start: 09-22-2024 End: 09-22-2024 Emergency department patient visit ISIAH ACEVEDO Facility:[place] [facility] Start: 09-17-2024 End: 09-17-[address] Jayla Acevedo MD [place] Work Phone: Start: 09-17-2024 End: 09-17-2024 Departed Referred Jayla Acevedo [facility] Start: 09-17-2024 End: 09-17-2024 ambulatory Jayla TOLENTINO Facility:[place] Start: 09-14-2024 End: 09-14-2024 Office outpatient visit 25 minutes Jason Moran MD Work Phone: [employer] [facility] [employer] [facility] Comment on above: Pulmonary fibrosis ( HCC) (Primary Dx); MARY (obstructive sleep apnea); Morbid obesity (HCC); Chronic respiratory failure with hypoxia (HCC); Chronic bronchitis, unspecified chronic bronchitis type (HCC); Chronic systolic CHF (congestive heart failure) (HCC) Start: 09-14-2024 End: 09-14-2024 ambulatory JASON MORAN [facility] Start: 09-10-2024 End: 09-10-2024 Subsequent hospital visit by physician [facility] Exam Room [address] [facility] [address] Comment on above: ILD (interstitial suha ng disease) ([facility]) Start: 09-10-2024 End: 09-10-2024 ambulatory VONNIE IVAN [facility] Start: 08-17-2024 End: 09-09-2024 Telephone encounter Vonnie Love APRN [employer] Work Phone: [facility] Central Scheduling Comment on above: Test Scheduling (CT scheduled ) Start: 08-13-2024 End: 08-13-2024 Telephone encounter Vonnie Love APRN [employer] BOXING AND PRESSING SUPERVISOR Work Phone: [facility] Comment on above: Request For Order(s) Start: 08-13-2024 End: 08-13-2024 Office outpatient visit 25 minutes Vonnie Love APRN [employer] Work Phone: [facility] [employer] [facility] [employer] Comment on above: Hospital discharge f ollow-up (Primary Dx); Acute on chronic HFrEF (heart failure with reduced ejection fraction) (HCC); Chronic respiratory failure with hypoxia (HCC); Chronic obstructive pulmonary disease, unspecified COPD type (HCC); ILD (interstitial lung disease) (HCC); MARY (obstructive sleep apnea); Personal history of tobacco use, presenting hazards to health; Severe obesity (BMI >= 40) ([facility]) Start: 08-13-2024 End: 08-13-2024 ambulatory VONNIE IVAN [facility] Start: 07-22-2024 End: 07-22-2024 ambulatory ISIAH BANNER Facility:[facility] Start: 07-22-2024 End: 07-22-2024 Follow-up encounter Rem Ck [facility] Comment on above: Remote Pacemaker Fol low Up Start: 07-22-2024 End: 07-22-2024 Patient encounter procedure Rem Device Ck [facility] Start: 07-21-2024 End: 07-22-2024 Follow-up encounter Leydi Leon MD Work Phone: [facility] Start: 07-21-2024 End: 07-22-2024 Professional / ancillary services management Leydi Leon MD Work Phone: [facility] Start: 07-07-2024 End: 07-15-2024 Evaluation and management of inpatient Selwyn Lai MD Work Phone: [facility] Comment on above: Pneumonia due to inf ectious organism, unspecified laterality, unspecified part of lung (Primary Dx); Fall, initial encounter; Altered mental status, unspecified altered mental status type; Sepsis, due to unspecified organism, unspecified whether acute organ dysfunction present (HCC); Urinary tract infection with hematuria, site unspecified; Acute hypoxemic respiratory failure (HCC) Start: 06-05-2024 ambulatory Jayla TOLENTINO Fac ility:[place] Start: 05-27-2024 End: 05-27-2024 ambulatory Khadijah MCNEIL [employer] Start: 05-27-2024 End: 05-27-2024 Home visit Khadijah MCNEIL [employer] Comment on above: Transition Of Care ( SNF Update ([employer] Concierge Resident) ) Start: 05-20-2024 End: 05-20-2024 ambulatory Luis TOLENTINO Facility:[place] Start: 04-20-2024 End: 12-10-2024 Telephone encounter Vonnie Zieg[facility] Start: 04-14-2024 End: 04-14-2024 Telephone encounter Barbara Herman DO Work Phone: [facility] Comment on above: Forms ([facility] tad- oxygen order) Start: 04-13-2024 End: 04-13-2024 Professional / ancillary services management Leydi Leon MD Work Phone: [facility] Start: 04-13-2024 End: 04-13-2024 ambulatory ANTONIO VAUGHN Facility:[facility] Start: 04-13-2024 End: 04-13-2024 Follow-up encounter Leydi Leon MD Work Phone: [facility] Comment on above: Remote Pacemaker Fol low Up Start: 04-13-2024 End: 04-13-2024 Patient encounter procedure Rem Device Ck [facility] Start: 01-07-2024 Telephone encounter Juliet Maria bhavesh CONLEYBOXING AND PRESSING SUPERVISOR Work Phone: [facility] Comment on above: Orders (CPap) Start: 01-06-2024 End: 01-06-2024 ambulatory LEYDI LEON Facility:[facility] Start: 01-06-2024 Follow-up encounter Leydi strange MD Work Phone: [facility] Start: 01-06-2024 Professional / ancil vasiliy services management Leydi Leon MD Work Phone: [facility] Start: 01-06-2024 End: 01-06-2024 Patient encounter procedure Rem Device Ck [facility] Comment on above: Permanent Pacemaker Start: 01-01-2024 [facility] Start: 01-01-2024 [facility] Comment on above: Population Health Na vigation Outreach ([facility] Attributed Member - Chart Review/) Start: 12-30-2023 ambulatory Khadijah Barnes RN [facility] Start: 12-30-2023 Home visit Khadijah Barnes RN [facility] Comment on above: Transition Of Care ( [facility] discharge to [facility]) Start: 12-30-2023 ambulatory ISIAH ACEVEDO [facility] Start: 12-27-2023 End: 12-29-2023 Evaluation and management of inpatient ANTONIO VAUGHN Facility:[facility] Start: 12-25-2023 ambulatory Luis TOLENTINO Faci lity:[place] Start: 12-18-2023 ambulatory Luis TOLENTINO Faci lity:[place] Start: 12-16-2023 ambulatory Luis TOLENTINO Faci lity:[place] Start: 12-12-2023 ambulatory Khadijah Barnes RN [facility] Start: 12-12-2023 Home visit Khadijah Barnes RN [facility] Comment on above: Transition Of Care ( [facility] discharge to [facility]) Start: 12-10-2023 End: 03-16-2024 Telephone encounter Barbara Herman DO Work Phone: [facility] Comment on above: Orders (CPAP/BIPAP S upplies) Start: 12-04-2023 End: 12-11-2023 Evaluation and management of inpatient [facility] Facility:[facility] Start: 12-03-2023 Telephone encounter Juliet ospina APRN.BOXING AND PRESSING SUPERVISOR Work Phone: [facility] Comment on above: PAP Therapy Follow U p Start: 11-27-2023 Telephone encounter Barbara Hernandez cia DO Work Phone: [facility] Comment on above: Orders (Cpap supplie s) Start: 11-26-2023 ambulatory Dawood Carcamo RN [facility] Start: 11-26-2023 Home visit Dawood Carcamo RN [facility] Comment on above: Weekly phone contact (Recurring) for Transitional Care Management Start: 11-21-2023 Telephone encounter Barbara Hernandez cia DO Work Phone: [facility] Comment on above: Forms (First choice- #[id number]) Forms (First choice- #[id number]) Start: 11-21-2023 End: 11-21-2023 Patient encounter procedure Juliet Mejia APRN.BOXING AND PRESSING SUPERVISOR Work Phone: [facility] Comment on above: Hypercholesteremia ( Primary Dx); MARY (obstructive sleep apnea); Restrictive lung disease; Chronic obstructive pulmonary disease, unspecified COPD type (HCC); Lung fibrosis (HCC); Interstitial lung disease (HCC) Start: 11-19-2023 Telephone encounter Barbara Hernandez cia Work Phone: [facility] Comment on above: Forms (First choice- #[id number]) Start: 11-18-2023 ambulatory Khadijah Barnes RN [facility] Start: 11-18-2023 Home visit Khadijah Barnes RN [facility] Comment on above: Transition Of Care ( Discharged from [facility]) Initial phone contac t for Transitional Care Management Start: 11-15-2023 [facility] Sharyn Kittoe A PRN.BOXING AND PRESSING SUPERVISOR Work Phone: [facility] Comment on above: Chronic heart failur e with preserved ejection fraction (HCC) (Primary Dx); Type 2 diabetes mellitus with complication, without long-term current use of insulin (HCC); MARY (obstructive sleep apnea); Allergic rhinitis, unspecified seasonality, unspecified trigger; Seizure disorder (HCC); Chronic respiratory failure with hypoxia (HCC); Complete atrioventricular block (HCC); Pacemaker; Debility; Morbid obesity (HCC); PVD (peripheral vascular disease) (HCC) Start: 11-13-2023 ambulatory Sharyn Kittoe A PRN.BOXING AND PRESSING SUPERVISOR Work Phone: [facility] Comment on above: Chronic heart failur e with preserved ejection fraction (HCC) (Primary Dx); Chronic respiratory failure with hypoxia (HCC); Complete atrioventricular block (HCC); Pacemaker; Debility Start: 11-13-2023 Telemedicine consult ation with patient Sharyn Kittoe WEIGH TANK OPERATOR.BOXING AND PRESSING SUPERVISOR Work Phone: [facility] Start: 11-12-2023 ambulatory Sharyn Kittoe A PRN.BOXING AND PRESSING SUPERVISOR Work Phone: [facility] Comment on above: Chronic heart failur e with preserved ejection fraction (HCC) (Primary Dx); Chronic respiratory failure with hypoxia (HCC); Complete atrioventricular block (HCC); Pacemaker; Debility Start: 11-12-2023 Telemedicine consult ation with patient Sharyn Kittoe WEIGH TANK OPERATOR.BOXING AND PRESSING SUPERVISOR Work Phone: [facility] Start: 11-08-2023 ambulatory Sharyn Kittoe A PRN.BOXING AND PRESSING SUPERVISOR Work Phone: [facility] Comment on above: Chronic heart failur e with preserved ejection fraction (HCC) (Primary Dx); Chronic respiratory failure with hypoxia (HCC); Complete atrioventricular block (HCC); Pacemaker; Debility; Morbid obesity (HCC) Start: 11-08-2023 Telemedicine consult ation with patient Sharyn Andrade WEIGH TANK OPERATOR.BOXING AND PRESSING SUPERVISOR Work Phone: [facility] Start: 11-07-2023 Telephone encounter Barbara Hernandez cia Work Phone: [facility] Comment on above: Forms (Complete heal thcare- discharge order) Forms (Complete heal thcare- OT re-eval form) Forms (Complete. Hea lthcare- PT re eval) Forms (Complete heal thcare- change order) Forms (Complete. Hea lthcare- order) Forms (Complete heal thcare-change order) Forms (Complete. Hea lthcare- plan of care ( 4.2.24-5.31.24)) Forms (Complete Heal thcare- plan of care (2.2.24-4.1.24)) Forms (Complete heal thcare- recert order) Forms (Complete. Hea lthcare- transfer order) Start: 11-06-2023 ambulatory Omaira Francisco Javier A PRN.BOXING AND PRESSING SUPERVISOR Work Phone: [facility] Comment on above: Chronic heart failur e with preserved ejection fraction (HCC) (Primary Dx); Chronic respiratory failure with hypoxia (HCC); Complete atrioventricular block (HCC); Pacemaker; Debility; Morbid obesity (HCC) Start: 11-06-2023 Telemedicine consult ation with patient Omaira Mcintyre APRN.BOXING AND PRESSING SUPERVISOR Work Phone: [facility] Start: 11-05-2023 ambulatory Sharyn Kittoe A PRN.BOXING AND PRESSING SUPERVISOR Work Phone: [facility] Comment on above: Chronic heart failur e with preserved ejection fraction (HCC) (Primary Dx); Chronic respiratory failure with hypoxia (HCC); Complete atrioventricular block (HCC); Pacemaker; Debility Start: 11-05-2023 Telemedicine consult ation with patient Sharyn Malintoe WEIGH TANK OPERATOR.BOXING AND PRESSING SUPERVISOR Work Phone: [facility] Start: 11-05-2023 End: 11-05-2023 Nursing evaluation of patient and report Nurse Card Ag Joe Donaldson Work Phone: [facility] [place] Comment on above: Presence of cardiac pacemaker (Primary Dx) Start: 11-04-2023 Telephone encounter Lyedi strange MD Work Phone: [facility] [place] Comment on above: Patient Update Start: 11-01-2023 ambulatory Sharyn Miranda PRN.BOXING AND PRESSING SUPERVISOR Work Phone: [facility] Comment on above: Chronic heart failur e with preserved ejection fraction (HCC) (Primary Dx); Chronic respiratory failure with hypoxia (HCC); PVD (peripheral vascular disease) (HCC); Complete atrioventricular block (HCC); Pacemaker Start: 11-01-2023 Telemedicine consult ation with patient Sharyn Andrade APRN.BOXING AND PRESSING SUPERVISOR Work Phone: [facility] Start: 10-29-2023 ambulatory Sharyn Miranda PRN.[facility] Work Phone: [facility] Comment on above: Chronic heart failur e with preserved ejection fraction (HCC) (Primary Dx); Chronic respiratory failure with hypoxia (HCC); PVD (peripheral vascular disease) (HCC); Complete atrioventricular block (HCC); Pacemaker; Debility Start: 10-29-2023 Telemedicine consult ation with patient Sharyn Andrade APRN.BOXING AND PRESSING SUPERVISOR Work Phone: [facility] Start: 10-27-2023 Patient Outreach Ileana Garner RN Mobile Product Manager Comment on above: Transition Of Care ( [facility] Discharged to [facility]) Start: 10-23-2023 Follow-up encounter Leydi strange MD Work Phone: [facility] Start: 10-23-2023 Patient encounter procedure Ro buster Leon MD Work Phone: [facility] Start: 10-22-2023 Telephone encounter Leydi strange MD Work Phone: [facility] Comment on above: Wound Check Start: 10-21-2023 ambulatory Fernando Ng RN AG VN S Start: 10-21-2023 Evaluation and manag ement of inpatient Fernando Ng RN Mobile Product Manager Comment on above: Transition Of Care ( Inpatient TCM visit) Start: 10-16-2023 Telephone encounter Barbara Hernandez cia DO Work Phone: [facility] Comment on above: Patient Update Start: 10-15-2023 End: 10-15-2023 Patient encounter procedure Ese Marmolejo DPM Work Phone: [place] [facility] Comment on above: Onychauxis (Primary Dx); Lymphedema of both lower extremities; PVD (peripheral vascular disease) (HCC); Callus; Swelling of both lower extremities; Type 2 diabetes mellitus with complication, without long-term current use of insulin (HCC) Start: 10-11-2023 End: 10-11-[address]oc Work Phone: [facility] Comment on above: Chronic obstructive pulmonary disease, unspecified COPD type (HCC) (Primary Dx) Start: 10-11-2023 End: 10-11-2023 Tele[address] consultation with patient [facility] Work Phone: [facility] Start: 10-08-2023 Telephone encounter Barbara Hernandez cia DO Work Phone: [facility] [facility] Comment on above: Refill Request Start: 10-07-2023 Telephone encounter Antonio loera DO Work Phone: [facility] Comment on above: Refill Request Start: 10-01-2023 Refill Dahiana Martin MD Work Phone: [facility] Comment on above: Refill Request Start: 09-12-2023 Refill Barbarawiley Herman DO Work Phone: [facility] Comment on above: Refill Request Start: 08-30-2023 Refill Barbara Clement DO Work Phone: [facility] Comment on above: Refill Request Start: 06-24-2023 ambulatory Dawood Carcamo RN AG VNS Start: 06-24-2023 Follow-up encounter Dawood Miranda G Mobile Product Manager Comment on above: Transition Of Care ( TCM follow up) Start: 06-17-2023 ambulatory Dawood Carcamo RN AG VNS Start: 06-17-2023 Follow-up encounter Dawood Miranda G Mobile Product Manager Comment on above: Transition Of Care ( TCM follow up) Start: 06-10-2023 ambulatory Dawood Carcamo RN AG VNS Start: 06-10-2023 Telephone encounter Antonio Benton luz maria DO Work Phone: [facility] Comment on above: Transition Of Care ( [facility], [facility], 06/07/2023) Refill Request Start: 06-09-2023 Patient Outreach Fernando Miranda G Mobile Product Manager Comment on above: Transition Of Care ( DC from [facility] 06/09/23) Start: 06-07-2023 ambulatory Sharyndickson Andrade A PRN.BOXING AND PRESSING SUPERVISOR Work Phone: [facility] Comment on above: Chronic heart failur e with preserved ejection fraction (HCC) (Primary Dx); Chronic respiratory failure with hypoxia (HCC); Type 2 diabetes mellitus with complication, without long-term current use of insulin (HCC); Morbid obesity (HCC); Type 2 diabetes mellitus without complication, without long-term current use of insulin (HCC); MARY (obstructive sleep apnea); Chronic obstructive pulmonary disease, unspecified COPD type (HCC); Debility Start: 06-07-2023 Telemedicine consult ation with patient Sharyndickson Andrade WEIGH TANK OPERATOR.BOXING AND PRESSING SUPERVISOR Work Phone: [facility] Start: 06-07-2023 Telephone encounter Barbara Gar wilbur DO Work Phone: [facility] Comment on above: Appointment (Needs T CM) Start: 05-29-2023 ambulatory Sharyn Kittoe A PRN.BOXING AND PRESSING SUPERVISOR Work Phone: [facility] Comment on above: Chronic heart failur e with preserved ejection fraction (HCC) (Primary Dx); Chronic respiratory failure with hypoxia (HCC); Type 2 diabetes mellitus with complication, without long-term current use of insulin (HCC); Debility Start: 05-29-2023 Telemedicine consult ation with patient Sharyn Kitnimo DAS.BOXING AND PRESSING SUPERVISOR Work Phone: [facility] Start: 05-28-2023 [facility] Giorgio VELÁZQUEZ.BOXING AND PRESSING SUPERVISOR Work Phone: [facility] Comment on above: Debility (Primary Dx ); Morbid obesity (HCC); Chronic heart failure with preserved ejection fraction (HCC); Chronic respiratory failure with hypoxia (HCC); Type 2 diabetes mellitus without complication, without long-term current use of insulin (HCC); Seizure disorder (HCC); Chronic right shoulder pain Start: 05-27-2023 Patient Outreach Ileana Garner RN Mobile Product Manager Comment on above: Transition Of Care ( [facility] Discharged to [facility]) Start: 05-21-2023 ambulatory Fernando Ng RN VN S Start: 05-21-2023 Evaluation and manag ement of inpatient Fernando Ng RN Mobile Product Manager Comment on above: Transition Of Care ( Inpatient TCM visit) Start: 05-20-2023 ambulatory Dawood Carcamo RN VNS Start: 05-20-2023 Telephone encounter Barbara Hernandez cia DO Work Phone: [facility] Comment on above: Patient Update (Seiz ure activity and change in mental status ) Transition Of Care ( [facility], 05/17/2023) Start: 05-10-2023 Telephone encounter [facility] Comment on above: Appointment Patient Update Start: 05-03-2023 Telephone encounter [facility] Comment on above: Appointment Start: 05-01-2023 Telephone encounter Barbara Hernandez cia DO Work Phone: [facility] Comment on above: Forms (Medical servi ce-medical supplies) Start: 04-26-2023 Telephone encounter Barbarawiley Hernandez cia DO Work Phone: [facility] Start: 04-25-2023 ambulatory Dawood Carcamo RN VNS Start: 04-25-2023 Follow-up encounter Dawood Miranda G Mobile Product Manager Comment on above: Transition Of Care ( TCM follow up) Start: 04-23-2023 Telephone encounter Barbara Hernandez cia DO Work Phone: [facility] Comment on above: Medication Problem Start: 04-22-2023 Telephone encounter Antonio loera DO Work Phone: [facility] Comment on above: Orders (CPAP Machine ) Start: 04-18-2023 ambulatory Dawood Carcamo RN AG VNS Start: 04-18-2023 Follow-up encounter Dawood Miranda G Mobile Product Manager Comment on above: Transition Of Care ( TCM follow up) Start: 04-17-2023 Telephone encounter Barbara Hernandez cia DO Work Phone: [facility] Comment on above: Forms ([facility]- order # [id number]) Refill Request Start: 04-12-2023 End: 04-12-2023 Patient encounter procedure Susan Rodriguez DO Work Phone: [facility] Comment on above: History of community acquired pneumonia (Primary Dx); Allergic rhinitis, unspecified seasonality, unspecified trigger; Need for influenza vaccination Start: 04-01-2023 Refill Barbara Herman DO Work Phone: [facility] Comment on above: Refill Request Start: 03-29-2023 Telemedicine consult ation with patient Sharyn Raymond DAS.BOXING AND PRESSING SUPERVISOR Work Phone: [facility] Start: 03-29-2023 Telephone encounter Barbarawiley Hernandez cia DO Work Phone: [facility] Comment on above: Forms (Complete heal [facility] srvs. - orders.) Chronic obstructive pulmonary disease, unspecified COPD type (HCC) (Primary Dx); Type II diabetes mellitus with peripheral circulatory disorder (HCC); PVD (peripheral vascular disease) (HCC); Debility Start: 03-26-2023 [facility] Sharyn Kittoe A PRN.BOXING AND PRESSING SUPERVISOR Work Phone: [facility] Comment on above: Community acquired p [place], unspecified laterality (Primary Dx); Chronic obstructive pulmonary disease, unspecified COPD type (HCC); Type II diabetes mellitus with peripheral circulatory disorder (HCC); PVD (peripheral vascular disease) (HCC); Debility Start: 03-19-2023 [facility] Sharyn Kittoe A PRN.BOXING AND PRESSING SUPERVISOR Work Phone: [facility] Comment on above: Community acquired p [place], unspecified laterality (Primary Dx); Chronic obstructive pulmonary disease, unspecified COPD type (HCC); Type II diabetes mellitus with peripheral circulatory disorder (HCC); Debility Start: 03-15-2023 ambulatory Sharyn VELÁZQUEZ.KALPESH Work Phone: [facility] Comment on above: OPENED IN ERROR (Rudi salome Dx) Community acquired p [place], unspecified laterality (Primary Dx); Chronic obstructive pulmonary disease, unspecified COPD type (HCC); Type II diabetes mellitus with peripheral circulatory disorder (HCC); Debility; Urinary tract infection without hematuria, site unspecified Start: 03-15-2023 Telemedicine consult ation with patient Sharyndickson Malinnimo DAS.BOXING AND PRESSING SUPERVISOR Work Phone: [facility] Start: 03-13-2023 [facility] Sharyn VELÁZQUEZ.BOXING AND PRESSING SUPERVISOR Work Phone: [facility] Comment on above: Community acquired p [place], unspecified laterality (Primary Dx); Chronic obstructive pulmonary disease, unspecified COPD type (HCC); Type II diabetes mellitus with peripheral circulatory disorder (HCC); MARY on CPAP; Debility; Hyperlipidemia, unspecified hyperlipidemia type; Seizures (HCC); Urinary tract infection without hematuria, site unspecified Start: 03-12-2023 Patient Outreach Ileana Garner RN Mobile Product Manager Comment on above: Transition Of Care ( [facility] Discharged to [facility]) Start: 03-06-2023 ambulatory Kaitlin Saenz RN VN S Start: 03-06-2023 Evaluation and manag ement of inpatient Kaitlin Saenz RN Mobile Product Manager Comment on above: Transition Of Care ( Inpatient Visit) Start: 03-05-2023 Refill Dahiana Martin MD Work Phone: [facility] Comment on above: Refill Request Start: 03-04-2023 Telephone encounter Barbara Hernandez cia DO Work Phone: [facility] Comment on above: ER/Urgent Referral ( Diarrhea for 1 week, chills, and abd pain) Start: 02-21-2023 Refill Barbara Herman DO Work Phone: [facility] Comment on above: Refill Request Start: 02-18-2023 Telephone encounter Barbara Hernandez cia DO Work Phone: [facility] Comment on above: Results Start: 02-12-2023 Refill Barbara Herman DO Work Phone: [facility] Comment on above: Results; Refill Requ est (Keppra ) Start: 02-06-2023 Telephone encounter Barbara Hernandez cia DO Work Phone: [facility] Comment on above: Patient Question Start: 01-18-2023 End: 01-18-2023 Patient encounter procedure Antonio Adrian DO Work Phone: [facility] Comment on above: MARY (obstructive sle ep apnea) (Primary Dx); Type 2 diabetes mellitus with complication, without long-term current use of insulin ([facility]); Decreased hearing of both ears; Chronic obstructive pulmonary disease, unspecified COPD type ([facility]); Anxiety; Lymphedema of both lower extremities; Class 3 severe obesity due to excess calories with serious comorbidity and body mass index (BMI) of 45.0 to 49.9 in adult ([facility]) Start: 01-15-2023 Telephone encounter Dahiana aranda MD Work Phone: [facility] Comment on above: Forms (Medical servi ce company-medical suplies) Start: 01-04-2023 Telephone encounter Lupis sales WIRE COILER Work Phone: [facility] Comment on above: Follow Up Start: 01-01-2023 Telephone encounter Dahiana aranda MD Work Phone: [facility] Comment on above: Patient Question Start: 01-01-2023 End: 01-01-2023 Patient encounter procedure Ese Marmolejo DPRebeka Work Phone: [facility] Comment on above: Onychauxis (Primary Dx); Lymphedema of both lower extremities; PVD (peripheral vascular disease) ([facility]); Type 2 diabetes mellitus with complication, without long-term current use of insulin (HCC); Swelling of both lower extremities; Callus; Subungual hematoma of foot, left, initial encounter Start: 12-31-2022 Telephone encounter Dahiana aranda MD Work Phone: [facility] Comment on above: Forms (Complete [facility] srvs. - recert order.) Start: 12-28-2022 Refill Dahiana Martin MD Work Phone: [facility] Comment on above: Refill Request Start: 12-21-2022 Refill Dahiana Martin MD Work Phone: [facility] Comment on above: Refill Request Start: 10-22-2022 Telephone encounter Tami Long DO Work Phone: [facility] Comment on above: Orders (Neurology) Start: 10-22-2022 End: 10-22-2022 Patient encounter procedure Jennifer Hawkins MD Work Phone: [facility] Comment on above: Lymphedema of both l ower extremities (Primary Dx); Type 2 diabetes mellitus with complication, without long-term current use of insulin ([facility]); Morbid obesity with BMI of 45.0-49.9, adult (HCC); Shortness of breath; Leg swelling Start: 10-05-2022 Telephone encounter Dahiana aranda MD Work Phone: [facility] Comment on above: Forms (Complete [facility]- plan of care forms) Start: 10-02-2022 End: 10-02-2022 Patient encounter procedure Ese Marmolejo DPM Work Phone: [facility] Comment on above: Onychauxis (Primary Dx); Lymphedema of both lower extremities; PVD (peripheral vascular disease) ([facility]); Type 2 diabetes mellitus with complication, without long-term current use of insulin ([facility]); Swelling of both lower extremities; Callus Start: 09-25-2022 Telephone encounter Dahiana aranda MD Work Phone: [facility] Comment on above: Referral Start: 09-21-2022 End: 09-21-2022 Patient encounter procedure Ana Engel DO Work Phone: [facility] Comment on above: Seizure disorder (HC C) (Primary Dx); MARY (obstructive sleep apnea); Restrictive lung disease Start: 09-21-2022 Telephone encounter Dahiana aranda MD Work Phone: [facility] Comment on above: Orders Start: 09-06-2022 Telephone encounter Ese Alvarez zan DPM Work Phone: [facility] Comment on above: Appointment Refill Request Start: 08-31-2022 Telephone encounter Dahiana aranda MD Work Phone: [facility] Comment on above: Referral Request Start: 08-17-2022 Telephone encounter Dahiana aranda MD Work Phone: [facility] Comment on above: Forms (Complete [facility] thcare srvs. - order # [id number]) Start: 08-15-2022 Telephone encounter Dahiana aranda MD Work Phone: [facility] Comment on above: Chest Pain Start: 08-02-2022 Refill Peris Rajeevruth Marilia O Work Phone: [facility] Comment on above: Refill Request Start: 07-20-2022 Telephone encounter Dahiana aranda MD Work Phone: [facility] Comment on above: Forms (Complete [employer] thcare srvs. - order # [id number]) Start: 07-18-2022 Telephone encounter Lupis sales WIRE COILER Work Phone: [facility] Comment on above: Mom's Meals Start: 07-04-2022 Refill Dahiana Martin MD Work Phone: [facility] Comment on above: Refill Request Start: 06-11-2022 Telephone encounter Lupis sales WIRE COILER Work Phone: [facility] Comment on above: DJFS - NET TRANSPORT ATION Start: 06-05-2022 Telephone encounter Lupis sales WIRE COILER Work Phone: [facility] Comment on above: Refer / Community Re sources Start: 05-03-2022 Refill Dahiana Martin MD Work Phone: [facility] Comment on above: Refill Request Start: 05-02-2022 Telephone encounter Lupis sales WIRE COILER Work Phone: [facility] Comment on above: Follow Up Start: 05-01-2022 Refill Dahiana Martin MD Work Phone: [facility] Comment on above: Refill Request Start: 04-12-2022 Telephone encounter Lupis sales WIRE COILER Work Phone: [facility] Comment on above: Follow Up Start: 04-10-2022 Telephone encounter Dahiana aranda MD Work Phone: [facility] Comment on above: Forms (Complete heal thcare - order # [id number]) Start: 04-04-2022 End: 04-04-2022 Patient encounter procedure Flu Famp Ag Cfm Work Phone: [facility] Comment on above: Need for influenza v accination (Primary Dx) Start: 04-04-2022 Refill Elise Wan DO Work Phone: [facility] Comment on above: Refill Request Start: 03-23-2022 Telephone encounter Lupis sales WIRE COILER Work Phone: [facility] Comment on above: Follow Up (HOME PHON E NUMBER CHANGE) Start: 03-15-2022 Telephone encounter Lupis sales WIRE COILER Work Phone: [facility] Comment on above: NET TRansportation S ervices Start: 03-13-2022 Refill Dahiana Martin MD Work Phone: [facility] Comment on above: Refill Request Start: 03-02-2022 Telephone encounter Dahiana aranda MD Work Phone: [facility] Comment on above: Results Start: 03-01-2022 End: 03-01-2022 Subsequent hospital visit by physician [facility] Comment on above: Fall, subsequent enc ounter [W19.XXXD] Start: 02-27-2022 Telephone encounter Lupis sales WIRE COILER Work Phone: [facility] Comment on above: Follow Up (Scat Appl ication (Transportation)) Start: 02-26-2022 End: 02-26-2022 Patient encounter procedure Dahiana Martin MD Work Phone: [facility] Comment on above: Fall, subsequent enc ounter (Primary Dx); Pain of left great toe; Stress incontinence Start: 02-22-2022 Telephone encounter Lupis sales WIRE COILER Work Phone: [facility] Comment on above: Social Work Services (Living Will / Other Resources) Start: 02-19-2022 Telephone encounter Lupis sales WIRE COILER Work Phone: [facility] Comment on above: Advance Directives A ssist (Living Will) Start: 02-13-2022 Telephone encounter Lorenzo Torrez MD Work Phone: [facility] Comment on above: Orders (CPAP Supplie s ) Start: 02-09-2022 Telephone encounter Lupis sales WIRE COILER Work Phone: [facility] Comment on above: Social Work Services (Healthcare Power of Full Stack Software Engineer) Start: 02-09-2022 End: 02-09-2022 Patient encounter procedure Lorenzo Torrez MD Work Phone: [facility] Comment on above: MARY (obstructive sle ep apnea) (Primary Dx); Other secondary hypertension Start: 01-30-2022 Telephone encounter Lupis sales WIRE COILER Work Phone: [facility] Comment on above: Social Work Services (Patient Acknowledgement ) Start: 01-30-2022 End: 01-30-2022 Patient encounter procedure Dahiana Martin MD Work Phone: [facility] Comment on above: Skin lesion of breas t (Primary Dx); Need for vaccination Start: 01-29-2022 Telephone encounter Dahiana aranda MD Work Phone: [facility] Comment on above: Forms (Complete. [facility] srvs. - order# [id number]) Start: 12-27-2021 Orders Only Elise Wan DO Work Phone: [facility] Comment on above: Chronic diarrhea (Pr imary Dx) Start: 12-21-2021 End: 12-21-2021 Patient encounter procedure Elise Wan DO Work Phone: [facility] Comment on above: Diarrhea, unspecifie d type (Primary Dx); Type 2 diabetes mellitus without retinopathy (HCC); Stress incontinence Start: 12-11-2021 Telephone encounter Elise chaudhry DO Work Phone: [facility] Comment on above: Patient Question Start: 12-06-2021 Refill Elise Wan DO Work Phone: [facility] Comment on above: Refill Request Start: 11-13-2021 Telephone encounter Elise chaudhry DO Work Phone: [facility] Comment on above: Patient Request (SCA T TRANSPORTATION PHONE CALL ) Start: 10-31-2021 End: 10-31-2021 Patient encounter procedure Ese Marmolejo DPM Work Phone: [facility] Comment on above: Onychauxis (Primary Dx); Lymphedema of both lower extremities; PVD (peripheral vascular disease) ([facility]); Swelling of both lower extremities; Type 2 diabetes mellitus with complication, without long-term current use of insulin (HCC); Callus Start: 10-16-2021 Telephone encounter Elise chaudhry DO Work Phone: [facility] Comment on above: Forms (Complete heal thcare srvcs. - order # [id number]) Start: 10-10-2021 End: 10-10-2021 Subsequent hospital visit by physician Mri 3 [facility] (I-Stat/1.5t) Work Phone: [facility] Comment on above: Unspecified visual f ield defects [H53.40] Start: 02-11-2018 [facility]ulatory [facility] Start: 12-27-2017 Ambulatory [facility] Start: 11-22-2017 Ambulatory [facility] Start: 11-19-2017 [facility] Start: 04-12-2017 Amb[facility]AUGH[facility] Start: 04-09-2017 Amb[facility] Start: 01-22-2017 [facility] Procedures Date Procedure Procedure Detail Performing Clinician Start: 12-07-2024 Electrocardiogram CAROLFORREST PHYLICIA REDDYUR Start: 11-05-2024 PACEMAKER REMOTE CHECK Leydi Leon MD Work Phone: Start: 11-04-2024 Echocardiography VERNELL CHAVEZ ACEVEDO Start: 11-02-2024 Electrocardiogram MARCY ACEVEDO Start: 07-21-2024 PACEMAKER REMOTE CHECK Leydi Leon MD Work Phone: Start: 07-15-2024 Glucose quantitative blood xcpt reagent strip Ba Clement MD Work Phone: Start: 07-15-2024 Glucose quantitative blood xcpt reagent strip Ba Clement MD Work Phone: Start: 07-15-2024 Glucose quantitative blood xcpt reagent strip Ba Clement MD Work Phone: Start: 07-15-2024 Basic metabolic pane l calcium total Ba Clement MD Work Phone: Start: 07-14-2024 End: 07-14-2024 Basic metabolic panel calcium total Ba Clement MD Work Phone: Start: 07-13-2024 Glucose quantitative blood xcpt reagent strip Ba Clement MD Work Phone: Start: 07-13-2024 Glucose quantitative blood xcpt reagent strip Ba Clement MD Work Phone: Start: 07-13-2024 Glucose quantitative blood xcpt reagent strip Ba Clement MD Work Phone: Start: 07-13-2024 Radiologic exam ches t single view Urmila Leung WEIGH TANK OPERATOR - BOXING AND PRESSING SUPERVISOR Work Phone: Start: 07-13-2024 Glucose quantitative blood xcpt reagent strip Ba Clement MD Work Phone: Start: 07-12-2024 Glucose quantitative blood xcpt reagent strip Ba Clement MD Work Phone: Start: 07-12-2024 Glucose quantitative blood xcpt reagent strip Ba Clement MD Work Phone: Start: 07-12-2024 Glucose quantitative blood xcpt reagent strip Ba Clement MD Work Phone: Start: 07-12-2024 Glucose quantitative blood xcpt reagent strip Sadie Barnes MD Work Phone: Start: 07-12-2024 Basic metabolic pane l calcium total Brittany Garcia WEIGH TANK OPERATOR - BOXING AND PRESSING SUPERVISOR Work Phone: Start: 07-11-2024 Glucose quantitative blood xcpt reagent strip Rambo Vogt DO Work Phone: Start: 07-11-2024 Glucose quantitative blood xcpt reagent strip Rambo Vogt DO Work Phone: Start: 07-11-2024 Glucose quantitative blood xcpt reagent strip Rambo Vogt DO Work Phone: Start: 07-11-2024 Radiologic exam ches t single view Brittany Garcia WEIGH TANK OPERATOR - BOXING AND PRESSING SUPERVISOR Work Phone: Start: 07-11-2024 Glucose quantitative blood xcpt reagent strip Rambo Vogt DO Work Phone: Start: 07-11-2024 Comprehensive metabolic panel Selwyn Pena MD Work Phone: Start: 07-10-2024 Glucose quantitative blood xcpt reagent strip Rambo Vogt DO Work Phone: Start: 07-10-2024 Glucose quantitative blood xcpt reagent strip Rambo Vogt DO Work Phone: Start: 07-10-2024 Glucose quantitative blood xcpt reagent strip Rambo Vogt DO Work Phone: Start: 07-10-2024 Radiologic exam ches t single view Muriel Mckeon MD Work Phone: Start: 07-10-2024 Iadna s aureus methi cillin resist amp probe tq Muriel Mckeon MD Work Phone: Start: 07-10-2024 Glucose quantitative blood xcpt reagent strip Rambo Vogt DO Work Phone: Start: 07-10-2024 Comprehensive metabolic panel Selwyn Pena MD Work Phone: Start: 07-09-2024 Glucose quantitative blood xcpt reagent strip Rambo Mcclelland DO Work Phone: Start: 07-09-2024 Echo tthrc r-t 2d w/ wom-mode compl spec&colr d Muriel Mckeon MD Work Phone: Start: 07-09-2024 Glucose quantitative blood xcpt reagent strip Rambomarva Hannaharmony DO Work Phone: Start: 07-09-2024 Radiologic exam ches t single view Muriel Mckeon MD Work Phone: Start: 07-09-2024 Glucose quantitative blood xcpt reagent strip Selwyn Lai MD Work Phone: Start: 07-09-2024 End: 07-09-2024 Comprehensive metabolic panel Selwyn brower MD Work Phone: Start: 07-08-2024 Glucose quantitative blood xcpt reagent strip Selwyn Lai MD Work Phone: Start: 07-08-2024 Drug screen quantita tive levetiracetam Muriel Mckeon MD Work Phone: Start: 07-08-2024 Glucose quantitative blood xcpt reagent strip Selwyn Lai MD Work Phone: Start: 07-08-2024 Ct thorax w/o contra st material Muriel Mckeon MD Work Phone: Start: 07-08-2024 Glucose quantitative blood xcpt reagent strip Selwyn Lai MD Work Phone: Start: 07-08-2024 Ecg routine ecg w/le ast 12 lds trcg only w/o i&r Selwyn Pena MD Work Phone: Start: 07-08-2024 End: 07-08-2024 Comprehensive metabolic panel Selwyn brower MD Work Phone: Start: 07-08-2024 Drug screen quantita tive vancomycin Selwyn Pena MD Work Phone: Start: 07-08-2024 Assay of lactate Mickey Lai MD Work Phone: Start: 07-07-2024 Glucose quantitative blood xcpt reagent strip Selwyn Lai MD Work Phone: Start: 07-07-2024 Respiratory pathogen s DNA and RNA panel - Nasopharynx by ISRAEL with non-probe detection Selwyn Pena MD Work Phone: Start: 07-07-2024 Assay of lactate Mickey Lai MD Work Phone: Start: 07-07-2024 Culture bacterial qu anttative colony count urine Selwyn Lai MD Work Phone: Start: 07-07-2024 Urinalysis complete panel - Urine Selwyn Lai MD Work Phone: Start: 07-07-2024 Assay of troponin quantitative Selwyn Lai MD Work Phone: Start: 07-07-2024 Ct head/brain w/o co ntrast material Selwyn Lai MD Work Phone: Start: 07-07-2024 Radiologic exam ches t single view Selwyn Lai MD Work Phone: Start: 07-07-2024 SARS-COV-2, FLU A/B, AND RSV COMBO Selwyn Lai MD Work Phone: Start: 07-07-2024 Bacteria identified in Blood by Culture Selwyn Lai MD Work Phone: Start: 07-07-2024 Comprehensive metabolic panel Selwyn Lai MD Work Phone: Start: 07-07-2024 Drug screen quantita tive levetiracetam Selwyn Lai MD Work Phone: Start: 07-07-2024 Ecg routine ecg w/le ast 12 lds i&r only Selwyn Lai MD Work Phone: Start: 04-13-2024 PACEMAKER REMOTE CHECK Leydi Leon MD Work Phone: Start: 01-06-2024 PACEMAKER REMOTE CHECK Leydi Leon MD Work Phone: Start: 10-23-2023 PACEMAKER CLINIC CHECK Leydi Leon MD Work Phone: Start: 04-12-2023 INFLUENZA VACCINE, P RSV FREE, AGE 65+ YR, HIGH DOSE, QUADRIVALENT (FLUZONE HIGH-DOSE) Susan Michael DO Work Phone: Start: 01-18-2023 Hemoglobin A1c/Hemoglobin.total in Blood Antonio Vaughn DO Work Phone: Start: 04-04-2022 INFLUENZA SEASONAL QUADRIVALENT HIGH DOSE AGE 65+ Emanuel Vann MD Work Phone: Start: 01-30-2022 [employer] COVI D-19 VACCINE, AGE 12+ YR (OLSON TOP) Dahiana Martin MD Work Phone: Start: 12-21-2021 Hemoglobin A1c/Hemoglobin.total in Blood Elise Wan DO Work Phone: Start: 05-05-2021 Adult depression scr eening assessment Mri (I-Stat/1.5t) Work Phone: Start: 09-06-2020 Mammography Mri (I-Sta t/1.5t) Work Phone: Start: 11-05-2017 Colonoscopy Mri (I-Sta t/1.5t) Work Phone: Plan of Treatment Date Care Activity Detail Author Start: 12-14-2025 BP Controlled (<130/80) BP Controlled (<130/80) [facility] Start: 11-05-2025 Diabetes: Estimated Glomerular Filtration Rate for Kidney Health Diabetes: Estimated Glomerular Filtration Rate for Kidney Health [facility] Start: 11-03-2025 Hepatitis B surface antibody level LDL Cholesterol [facility] Start: 07-15-2025 Creatinine measurement Creatinine Level [facility] Start: 07-15-2025 Diabetes: Estimated Glomerular Filtration Rate for Kidney Health Diabetes: Estimated Glomerular Filtration Rate for Kidney Health [facility] Start: 07-15-2025 Potassium measurement Potassium Level [facility] Start: 07-09-2025 Echocardiography Echocardiogram [facility] Start: 06-18-2025 End: 06-18-2025 Patient encounter procedure 06/18/2025 2:00 PM EST Office Visit [facility] [place] [address] [place] [address] Ministerio Esposito, WEIGH TANK OPERATOR.BOXING AND PRESSING SUPERVISOR [address] [place], [place] [id number] 6 month f/u. eg [facility] [place] Comment on above: 6 month f/u. eg Start: 05-19-2025 End: 05-19-2025 Patient encounter procedure 05/19/2025 10:00 AM EST Office Visit [facility] Pulmonary and Sleep Medicine [facility] [address] [facility] [place] [phone] Jason Moran MD [address] [place] [address] [facility] Pulmonary critical access hospital Sleep Medicine [facility] Start: 05-05-2025 Hemoglobin A1c measurement HbA1C [facility] Start: 03-08-2025 Influenza vaccination Influenza Vaccine (Season Ended) [facility] Start: 02-19-2025 End: 02-19-2025 Patient encounter procedure [facility] Comment on above: PM/BOOKER Start: 01-05-2025 Hemoglobin A1c measurement HbA1C [facility] Start: 01-05-2025 End: 01-05-2025 Patient encounter procedure 01/05/2025 8:30 AM EDT Office Visit [facility] [place] [address] [facility] [address] [place] [address] Nelson Wilde, WEIGH TANK OPERATOR.BOXING AND PRESSING SUPERVISOR [address] [place], [place] [phone] Overdue f/u, [facility]. [facility] [place] Comment on above: Overdue f/u, aflutter. dl Start: 12-30-2024 End: 03-31-2025 CBC panel - Blood by Automated count COMPLETE BLOOD COUNT Lab Routine Atrial flutter, unspecified type (HCC) Expected: 12/30/2024 (Approximate), Expires: 03/31/2025 [place] Work Phone: Comment on above: Expected: 12/30/2024 (Approximate), Expi res: 03/31/2025 Start: 12-14-2024 End: 12-14-2024 Patient encounter procedure 12/14/2024 3:30 PM EDT Office Visit [facility] [place] [address] [place] [address] Ministerio Esposito APRN.BOXING AND PRESSING SUPERVISOR [address] [place] [address] Hospital follow up, CHF- hlk [facility] [place] Comment on above: Hospital follow up, CHF- hlk Start: 11-20-2024 Annual PCP Team Chronic Disease Visit Annual PCP Team Chronic Disease Visit [facility] Start: 11-18-2024 End: 11-18-2024 Patient encounter procedure 11/18/2024 10:45 AM EDT Office Visit [facility] Pulmonary and Sleep Medicine [address] [place] [phone] Jason Moran MD [address] [place] [id number] [facility] Pulmonary and Sleep Medicine [facility] Start: 11-14-2024 BP Controlled (<130/80) BP Controlled (<130/80) [facility] Start: 11-11-2024 BP Controlled (<130/80) BP Controlled (<130/80) [facility] Start: 11-07-2024 BP Controlled (<130/80) BP Controlled (<130/80) [facility] Start: 11-05-2024 BP Controlled (<130/80) BP Controlled (<130/80) [facility] Start: 11-04-2024 BP Controlled (<130/80) BP Controlled (<130/80) [facility] Start: 11-04-2024 End: 11-04-2024 Patient encounter procedure 11/04/2024 8:00 AM EDT Procedure [facility] [address] [place] [address] PM/BOOKER [facility] Comment on above: PM/BOOKER Start: 10-31-2024 BP Controlled (<130/80) BP Controlled (<130/80) [facility] Start: 10-28-2024 BP Controlled (<130/80) BP Controlled (<130/80) [facility] Start: 10-19-2024 Covid-19 Vaccine () Covid-19 Vaccine () [facility] Start: 10-14-2024 Diabetic foot examination Diabetic Foot Exam [facility] Start: 10-02-2024 Annual PCP Team Chronic Disease Visit Annual PCP Team Chronic Disease Visit [facility] Start: 09-14-2024 End: 09-14-2025 Complete PFT pre and post bronchodilator with FENO Complete PFT pre and post bronchodilator with FENO PFT Routine Pulmonary fibrosis (HCC) Chronic respiratory failure with hypoxia (HCC) Chronic bronchitis, unspecified chronic bronchitis type (HCC) Expected: 09/14/2024 (Approximate), Expires: 09/14/2025 [facility] Work Phone: Comment on above: Expected: 09/14/2024 (Approximate), Expi res: 09/14/2025 Start: 09-14-2024 End: 09-14-2024 Patient encounter procedure 09/14/2024 9:45 AM EDT Office Visit [facility] Pulmonary and Sleep Medicine [facility] [address] [place] [phone] Jason Moran MD [address] [place] [address] [facility] Pulmonary and Sleep Medicine [facility] Start: 09-10-2024 End: 09-10-2024 Patient encounter procedure 09/10/2024 4:15 PM EST Appointment [facility] [address] [place] [id number] [facility] [address] Start: 09-10-2024 Subsequent hospital visit by physician 09/10/2024 4:15 PM EST Hospital Encounter [facility] [address] [place] [address] [facility] [address] Start: 09-10-2024 End: 08-13-2025 CT Chest WO contrast [facility] Work Phone: Comment on above: Expected: 09/10/2024, Expires: Once for 1 Occurrenc es starting 09/10/2024 until 09/10/2024 Start: 08-13-2024 End: 08-13-2025 BIPAP BIPAP Respiratory Care Routine MARY (obstructive sleep apnea) Expected: 08/13/2024 (Approximate), Expires: 08/13/2025 [facility] Work Phone: Comment on above: Expected: 08/13/2024 (Approximate), Expi res: 08/13/2025 Start: 07-28-2024 End: 07-28-2024 Patient encounter procedure 07/28/2024 9:10 AM EST Office Visit [facility] Pulmonary and Sleep Medicine [address] [place] [phone] Vonnie Love APRN - [address] [address] [facility] Pulmonary and Sleep Medicine [facility] Start: 07-26-2024 Annual PCP Team Chronic Disease Visit Annual PCP Team Chronic Disease Visit [facility] Start: 07-26-2024 BP Controlled (<130/80) BP Controlled (<130/80) [facility] Start: 07-22-2024 End: 07-22-2024 Patient encounter procedure 07/22/2024 8:00 AM EST Procedure [facility] [address] [place] [address] remote mdt pm/booker/heart block [facility] Comment on above: remote mdt pm/booker/heart block Start: 07-08-2024 Advance Directive Discussion Advance Directive Discussion [facility] Start: 07-08-2024 Medicare Advantage Annual Wellness Visit Medicare Advantage Annual Wellness Visit [facility] Start: 07-07-2024 DTaP/Tdap/Td Vaccines (2 - Tdap) DTaP/Tdap/Td Vaccines (2 - Tdap) [facility] Start: 07-07-2024 Urine microalbumin profile [facility] Start: 06-08-2024 BP Controlled (<130/80) BP Controlled (<130/80) [facility] Start: 06-06-2024 Hemoglobin A1c measurement HbA1C [facility] Start: 06-04-2024 BP Controlled (<130/80) BP Controlled (<130/80) [facility] Start: 05-29-2024 BP Controlled (<130/80) BP Controlled (<130/80) [facility] Start: 04-13-2024 End: 04-13-2024 Patient encounter procedure 04/13/2024 8:00 AM EDT Procedure [facility] [address] [place] [address] med pm/booker/hb [facility] Comment on above: med pm/booker/hb Start: 04-12-2024 Annual PCP Team Chronic Disease Visit Annual PCP Team Chronic Disease Visit [facility] Start: 04-12-2024 BP Controlled (<130/80) BP Controlled (<130/80) [facility] Start: 03-29-2024 BP Controlled (<130/80) BP Controlled (<130/80) [facility] Start: 03-26-2024 BP Controlled (<130/80) BP Controlled (<130/80) [facility] Start: 03-19-2024 BP Controlled (<130/80) BP Controlled (<130/80) [facility] Start: 03-15-2024 BP CONTROLLED (<130/80) BP CONTROLLED (<130/80) [facility] Start: 03-13-2024 BP CONTROLLED (<130/80) BP CONTROLLED (<130/80) [facility] Start: 03-08-2024 Covid-19 Vaccine ( season) Covid-19 Vaccine () [facility] Start: 03-08-2024 Covid-19 Vaccine () Covid-19 Vaccine () [facility] Start: 03-08-2024 Covid-19 Vaccine () Covid-19 Vaccine () [facility] Start: 03-08-2024 Influenza [facility] Start: 02-21-2024 ANNUAL PCP TEAM CHRONIC DISEASE VISIT ANNUAL PCP TEAM CHRONIC DISEASE VISIT [facility] Start: 02-21-2024 BP CONTROLLED (<130/80) BP CONTROLLED (<130/80) [facility] Start: 01-30-2024 End: 04-30-2024 Basic metabolic 2000 panel - Serum or Plasma BASIC METABOLIC PANEL Lab Routine Hypercholesteremia Expected: 01/30/2024 (Approximate), Expires: 04/30/2024 [facility] Comment on above: Expected: 01/30/2024 (Approximate), Expi res: 04/30/2024 Start: 01-30-2024 End: 04-30-2024 Lipid 1996 panel - Serum or Plasma LIPID PANEL BASIC Lab Routine Hypercholesteremia Expected: 01/30/2024, Expires: 04/30/2024 [place] Work Phone: Comment on above: Expected: 01/30/2024, Expires: Start: 01-24-2024 Hemoglobin A1c measurement HbA1C [facility] Start: 01-21-2024 Glaucoma screening Dilated Retinal Exam [facility] Start: 01-21-2024 Hepatitis C antibody, confirmatory test DILATED RETINAL EXAM [facility] Start: 01-19-2024 ANNUAL PCP TEAM CHRONIC DISEASE VISIT ANNUAL PCP TEAM CHRONIC DISEASE VISIT [facility] Start: 01-14-2024 End: 01-14-2024 Patient encounter procedure 01/14/2024 11:00 AM EDT Office Visit [facility] [address] [place] [address] Ese Marmolejo DPM [address] [place] [address] Diabetic foot care, bl feet [facility] Comment on above: Diabetic foot care, bl feet Start: 01-06-2024 End: 01-06-2024 Patient encounter procedure 01/06/2024 8:00 AM EDT Procedure [facility] [address] [facility] [place] [address] pm/mdt/booker/6 wk/autocapture on, patient in fpc not able to come in [facility] Comment on above: pm/mdt/booker/6 wk/autocapture on, patient in fpc not able to come in Start: 12-12-2023 End: 12-12-2023 Patient encounter procedure 12/12/2023 1:20 PM EDT Office Visit [facility] [address] [place] [address] Barbara Herman DO [address] [place], [place] [phone] fpc follow up [facility] Comment on above: fpc follow up Start: 12-05-2023 End: 12-05-2023 Patient encounter procedure 12/05/2023 4:00 PM EDT Procedure [facility] [address] [facility] [place] [address] pm/booker/mdt/syncope/6 wk chk [facility] Comment on above: pm/booker/mdt/syncope/6 wk chk Start: 11-21-2023 End: 11-21-2023 Patient encounter procedure 11/21/2023 8:40 AM EDT Office Visit [facility] [address] [facility] [place] [phone] Juliet Mejia APRN.BOXING AND PRESSING SUPERVISOR [address] [place] [address] ER follow up. Ok per Jaye [facility] Medicine Comment on above: ER follow up. Ok per Jaye Start: 10-30-2023 End: 10-30-2023 Nursing evaluation of patient and report 10/30/2023 11:00 AM EDT Nurse Visit [facility] Cardiology [place] [address] [place] [address] Wound Check - Aquacel [facility] Comment on above: Wound Check - Aquacel Start: 10-23-2023 ANNUAL PCP TEAM CHRONIC DISEASE VISIT ANNUAL PCP TEAM CHRONIC DISEASE VISIT [facility] Start: 10-03-2023 3 comp foot exam completed DIABETIC FOOT EXAM [facility] Start: 10-03-2023 Diabetic foot examination Diabetic Foot Exam [facility] Start: 09-22-2023 ANNUAL PCP TEAM CHRONIC DISEASE VISIT ANNUAL PCP TEAM CHRONIC DISEASE VISIT [facility] Start: 09-22-2023 BP CONTROLLED (<130/80) BP CONTROLLED (<130/80) [facility] Start: 09-05-2023 Covid-19 Vaccine () Covid-19 Vaccine () [facility] Start: 08-21-2023 ANNUAL PCP TEAM CHRONIC DISEASE VISIT ANNUAL PCP TEAM CHRONIC DISEASE VISIT [facility] Start: 08-21-2023 Medicare Annual Wellness Visit Medicare Annual Wellness Visit [facility] Start: 07-21-2023 Hemoglobin A1c measurement HbA1C [facility] Start: 07-21-2023 Hemoglobin A1c/Hemoglobin.total in Blood HBA1C [facility] Start: 07-08-2023 Advance Directive Discussion Advance Directive Discussion [facility] Start: 07-08-2023 Behavioral Health Screening Behavioral Health Screening [facility] Start: 07-07-2023 DEPRESSION ASSESSMENT DEPRESSION ASSESSMENT [facility] Comment on above: Postponed from 07/08/2022 (Declined at t his time) Start: 05-11-2023 ANNUAL PCP TEAM CHRONIC DISEASE VISIT ANNUAL PCP TEAM CHRONIC DISEASE VISIT [facility] Start: 04-20-2023 End: 01-19-2024 ALBUMIN/CREAT RATIO RND UR ALBUMIN/CREAT RATIO RND UR Lab Routine Type 2 diabetes mellitus with complication, without long-term current use of insulin (HCC) Expected: 04/20/2023 (Approximate), Expires: 01/19/2024 [place] Work Phone: Comment on above: Expected: 04/20/2023 (Approximate), Expi res: 01/19/2024 Start: 04-20-2023 End: 01-19-2024 Alpha 1 antitrypsin [Mass/volume] in Serum or Plasma [id number] Lab Routine Chronic obstructive pulmonary disease, unspecified COPD type (HCC) Expected: 04/20/2023 (Approximate), Expires: 01/19/2024 [place] Work Phone: Comment on above: Expected: 04/20/2023 (Approximate), Expi res: 01/19/2024 Start: 04-20-2023 End: 01-19-2024 Comprehensive metabolic 2000 panel - Serum or Plasma COMP METABOLIC PANEL Lab Routine Type 2 diabetes mellitus with complication, without long-term current use of insulin (HCC) Expected: 04/20/2023 (Approximate), Expires: 01/19/2024 [place] Work Phone: Comment on above: Expected: 04/20/2023 (Approximate), Expi res: 01/19/2024 Start: 04-20-2023 End: 01-19-2024 Hemoglobin A1c in Blood HGB A1C Lab Routine Type 2 diabetes mellitus with complication, without long-term current use of insulin (HCC) Expected: 04/20/2023 (Approximate), Expires: 01/19/2024 [place] Work Phone: Comment on above: Expected: 04/20/2023 (Approximate), Expi res: 01/19/2024 Start: 04-20-2023 End: 01-19-2024 Lipid 1996 panel - Serum or Plasma LIPID PANEL BASIC Lab Routine Type 2 diabetes mellitus with complication, without long-term current use of insulin (HCC) Expected: 04/20/2023 (Approximate), Expires: 01/19/2024 [place] Work Phone: Comment on above: Expected: 04/20/2023 (Approximate), Expi res: 01/19/2024 Start: 04-07-2023 COVID-19 VACCINE (2 - Pfizer series) COVID-19 VACCINE (2 - Pfizer series) [facility] Comment on above: Postponed from 03/27/2022 (Postponed To Appropriate Date) Start: 03-08-2023 Covid-19 Vaccine () Covid-19 Vaccine () [facility] Start: 03-08-2023 Influenza vaccination [facility] Start: 02-26-2023 ANNUAL PCP TEAM CHRONIC DISEASE VISIT ANNUAL PCP TEAM CHRONIC DISEASE VISIT [facility] Start: 02-18-2023 Hemoglobin A1c/Hemoglobin.total in Blood HBA1C [facility] Start: 02-09-2023 ANNUAL PCP TEAM CHRONIC DISEASE VISIT ANNUAL PCP TEAM CHRONIC DISEASE VISIT [facility] Start: 01-30-2023 ANNUAL PCP TEAM CHRONIC DISEASE VISIT ANNUAL PCP TEAM CHRONIC DISEASE VISIT [facility] Start: 01-30-2023 BP CONTROLLED (<130/80) BP CONTROLLED (<130/80) [facility] Start: 12-21-2022 ANNUAL PCP TEAM CHRONIC DISEASE VISIT ANNUAL PCP TEAM CHRONIC DISEASE VISIT [facility] Start: 10-29-2022 End: 12-29-2022 Basic metabolic 2000 panel - Serum or Plasma BASIC METABOLIC PNL Lab Routine Lymphedema of both lower extremities Expected: 10/29/2022, Expires: 12/29/2022 [place] Work Phone: Comment on above: Expected: 10/29/2022, Expires: 3 Start: 09-22-2022 Diabetes: Urine Albumin-Creatinine Ratio for Kidney Health Diabetes: Urine Albumin-Creatinine Ratio for Kidney Health [facility] Start: 09-22-2022 Hepatitis B screening URINE ALBUMIN:CREATININE RATIO [facility] Start: 09-14-2022 ANNUAL PCP TEAM CHRONIC DISEASE VISIT ANNUAL PCP TEAM CHRONIC DISEASE VISIT [facility] Start: 09-06-2022 Mammography MAMMOGRAM [facility] Start: 07-08-2022 ADVANCE DIRECTIVE DISCUSSION ADVANCE DIRECTIVE DISCUSSION [facility] Start: 07-08-2022 DEPRESSION ASSESSMENT DEPRESSION ASSESSMENT [facility] Start: 06-22-2022 Hemoglobin A1c/Hemoglobin.total in Blood HBA1C [facility] Start: 05-05-2022 Adult depression screening assessment DEPRESSION SCREENING [facility] Start: 04-18-2022 3 comp foot exam completed DIABETIC FOOT EXAM [facility] Start: 2022 RSV Immunization for Adults (1 - 1-dose 75+ series) RSV Immunization for Adults (1 - 1-dose 75+ series) [facility] Start: 2022 RSV Vaccine (1 - 1-dose 75+ series) RSV Vaccine (1 - 1-dose 75+ series) [facility] Start: 03-27-2022 COVID-19 VACCINE (2 - Pfizer series) COVID-19 VACCINE (2 - Pfizer series) [facility] Start: 03-17-2022 Hemoglobin A1c/Hemoglobin.total in Blood HBA1C [facility] Start: 03-08-2022 Influenza vaccination INFLUENZA (#1) [facility] Start: 02-20-2022 COVID-19 VACCINE (2 - Pfizer series) COVID-19 VACCINE (2 - Pfizer series) [facility] Start: 01-30-2022 Hepatitis C antibody, confirmatory test DILATED RETINAL EXAM [facility] Start: 12-27-2021 End: 02-26-2022 Clostridioides difficile toxin genes [Presence] in Stool by ISRAEL with probe detection C. DIFFICILE PCR Lab Routine Chronic diarrhea Expected: 12/27/2021, Expires: 02/26/2022 [place] Work Phone: Comment on above: Expected: 12/27/2021, Expires: 2 Start: 12-27-2021 End: 02-26-2022 Gastrointestinal pathogens panel - Stool by Culture STOOL CULTURE/EIA Microbiology Routine Chronic diarrhea Expected: 12/27/2021, Expires: 02/26/2022 [place] Work Phone: Comment on above: Expected: 12/27/2021, Expires: 2 Start: 12-27-2021 End: 02-26-2022 Giardia lamblia+Cryptosporidium sp Ag [Presence] in Stool by Immunoassay CRYPTOSPORIDIUM AND GIARDIA ANTIGENS BY EIA Microbiology Routine Chronic diarrhea Expected: 12/27/2021, Expires: 02/26/2022 [place] Work Phone: Comment on above: Expected: 12/27/2021, Expires: 2 Start: 11-11-2021 Hepatitis B surface antibody level LDL CHOLESTEROL [facility] Start: 07-08-2021 ADVANCE DIRECTIVE DISCUSSION ADVANCE DIRECTIVE DISCUSSION [facility] Start: 07-08-2021 DEPRESSION ASSESSMENT DEPRESSION ASSESSMENT [facility] Start: 05-20-2021 BP CONTROLLED (<130/80) BP CONTROLLED (<130/80) [facility] Start: 11-05-2018 Colonoscopy COLONOSCOPY [facility] Start: 2012 BONE DENSITY BONE DENSITY [facility] Start: 2012 Bone Density Screening [facility] Start: 2012 Screening for osteoporosis Bone Density Screening [facility] Start: 2007 Hepatitis B Vaccine (1 of 3 - Risk 3-dose series) Hepatitis B Vaccine (1 of 3 - Risk 3-dose series) [facility] Start: 2007 RSV Vaccine (1 - 1-dose 60+ series) RSV Vaccine (1 - 1-dose 60+ series) [facility] Start: 1992 COLOGUARD (FIT-DNA) COLOGUARD (FIT-DNA) [facility] Start: [address] COLONOGRAPHY [facility] Start: 1992 FECAL OCCULT BLOOD FECAL OCCULT BLOOD [facility] [facility] Start: 1992 SIGMOIDOSCOPY SIGMOIDOSCOPY [facility] Start: 1977 Zoledronic acid therapy ALPHA-1 ANTITRYPSIN DEFICIENCY SCREENING [facility] Start: 1966 Urine microalbumin profile DTaP,Tdap,Td Vaccine (1 - Tdap) [facility] Start: 1965 Annual PCP Team Chronic Disease Visit Annual PCP Team Chronic Disease Visit [facility] Start: 1965 Depression Screening Depression Screening [facility] Start: 1965 Hepatitis B surface antibody level LDL Cholesterol [facility] Start: 1965 Hepatitis C screening Hepatitis C Screening [facility] Start: 1965 Spirometry Spirometry [facility] Start: 1959 Depression Monitoring Depression Monitoring [facility] Start: 1957 Diabetic foot examination Diabetic Foot Exam [facility] Start: 1957 Glaucoma screening Dilated Retinal Exam [facility] Start: 1957 Hepatitis B screening Urine Albumin:Creatinine Ratio [facility] Start: 1952 COVID-19 VACCINE (#1) COVID-19 VACCINE (#1) [facility] Start: 1952 COVID-19 VACCINE (1) COVID-19 VACCINE (1) [facility] Start: 1947 COVID-19 VACCINE (#1) COVID-19 VACCINE (#1) [facility] Start: 1947 Screening for osteoporosis Bone Density Scan [facility] End: 07-07-2024 Bacteria identified in Lower respiratory specimen by Aerobe culture Respiratory culture and Stain Microbiology Routine Once (Lab) for 1 Occurrences starting 07/07/2024 until 07/07/2024 [facility] Comment on above: Once (Lab) for 1 Occurrences starting until 07/07/2024 Debridement nail any method 6/> DEBRIDEMENT OF NAILS, 6 OR MORE Procedures Routine Onychauxis Lymphedema of both lower extremities PVD (peripheral vascular disease) ([facility]) Type 2 diabetes mellitus with complication, without long-term current use of insulin ([facility]) Ordered: 10/31/2021 [place] Work Phone: Comment on above: Ordered: 10/31/2021 Debridement nail any method 6/> DEBRIDEMENT OF NAILS, 6 OR MORE Procedures Routine Onychauxis Lymphedema of both lower extremities PVD (peripheral vascular disease) (HCC) Type 2 diabetes mellitus with complication, without long-term current use of insulin ([facility]) Ordered: 10/02/2022 [place] Work Phone: Comment on above: Ordered: 10/02/2022 Debridement nail any method 6/> DEBRIDEMENT OF NAILS, 6 OR MORE Procedures Routine Onychauxis Lymphedema of both lower extremities PVD (peripheral vascular disease) (HCC) Type 2 diabetes mellitus with complication, without long-term current use of insulin (HCC) Ordered: 01/01/2023 [place] Work Phone: Comment on above: Ordered: 01/01/2023 Debridement nail any method 6/> DEBRIDEMENT OF NAILS, 6 OR MORE Procedures Routine Onychauxis Lymphedema of both lower extremities PVD (peripheral vascular disease) (HCC) Swelling of both lower extremities Type 2 diabetes mellitus with complication, without long-term current use of insulin ([facility]) Ordered: 10/15/2023 [place] Work Phone: Comment on above: Ordered: 10/15/2023 End: 01-02-2024 EPIL EEG ROUTINE EPIL EEG ROUTINE NEUROLOGY Routine Seizure disorder (HCC) 1 Occurrences starting 01/01/2023 until 01/02/2024 [place] Work Phone: Comment on above: 1 Occurrences starting 01/01/2023 until 01/02/2024 End: 07-07-2024 Legionella and Streptococcus Urine Antigen [facility] Work Phone: Comment on above: Once (Lab) for 1 Occurrences starting until 07/07/2024 Paring/cutting benig n hyperkeratotic lesion 1 TRIM HYPERKERATOTIC SKIN LESION, ONE Procedures Routine PVD (peripheral vascular disease) (HCC) Type 2 diabetes mellitus with complication, without long-term current use of insulin (HCC) Callus Ordered: 10/31/2021 [place] Work Phone: Comment on above: Ordered: 10/31/2021 Paring/cutting benig n hyperkeratotic lesion 1 TRIM HYPERKERATOTIC SKIN LESION, ONE Procedures Routine Lymphedema of both lower extremities PVD (peripheral vascular disease) (HCC) Type 2 diabetes mellitus with complication, without long-term current use of insulin (HCC) Callus Ordered: 10/02/2022 [place] Work Phone: Comment on above: Ordered: 10/02/2022 Paring/cutting benig n hyperkeratotic lesion 1 TRIM HYPERKERATOTIC SKIN LESION, ONE Procedures Routine Onychauxis Lymphedema of both lower extremities PVD (peripheral vascular disease) (HCC) Type 2 diabetes mellitus with complication, without long-term current use of insulin (HCC) Ordered: 10/15/2023 [place] Work Phone: Comment on above: Ordered: 10/15/2023 End: 07-07-2024 Urine Hold Cup Urine Hold Cup Lab Timed Once for 1 Occurrences starting 07/07/2024 until 07/07/2024 [facility] Comment on above: Once for 1 Occurrences starting 07/07/20 until 07/07/2024 End: 03-28-2023 XR FOOT GENERAL 3V AP/LAT/OBL LEFT XR FOOT GENERAL 3V AP/LAT/OBL LEFT Radiology Routine Fall, subsequent encounter 1 Occurrences starting 02/26/2022 until 03/28/2023 [place] Work Phone: Comment on above: 1 Occurrences starting 02/26/2022 until 03/28/2023 End: 03-01-2022 XR FOOT GENERAL 3V AP/LAT/OBL LEFT [place] Work Phone: Comment on above: 1 Occurrences starting 03/01/2022 until 03/01/2022 [facility] Immunizations Immunization Date Immunization Notes Care Provider [facility] 07-08-2024 influenza vaccine A& B surf ant adjuvanted (Fluad) HIGH-DOSE injection 0.5 mL Selwyn Lai MD Work Phone: [facility] 04-12-2023 influenza (HD-IIV4) vaccine, age 65+ yr, high dose, quadrivalent, PF (FLUZONE HIGH-DOSE) Susan Rodriguez DO Work Phone: [facility] 04-12-2023 influenza virus vacc ine, unspecified formulation Leydi Leon MD Work Phone: [facility] 04-04-2022 influenza, high-dose , quadrivalent vaccine (FLUZONE HIGH DOSE QUADRIVALENT) Elise Wan DO Work Phone: [facility] 04-04-2022 influenza virus vacc ine, unspecified formulation Sharyn Andrade APRN.BOXING AND PRESSING SUPERVISOR Work Phone: [facility] 01-30-2022 COVID-19 vaccine, ag e 12+ yr ([employer] [facility]) Lupis Davenport WIRE COILER Work Phone: [facility] 03-28-2021 influenza, high-dose , quadrivalent vaccine (FLUZONE HIGH DOSE QUADRIVALENT) Mri (I-Stat/1.5t) Work Phone: [facility] Work Phone: 04-15-2020 influenza, high-dose , quadrivalent vaccine (FLUZONE HIGH DOSE QUADRIVALENT) Mri (I-Stat/1.5t) Work Phone: [facility] 01-06-2020 zoster vaccine recombinant Mri (I-Stat/1.5t) Work Phone: [facility] Work Phone: 08-10-2019 zoster vaccine recombinant Mri (I-Stat/1.5t) Work Phone: [facility] Work Phone: 03-25-2019 influenza, high dose seasonal, preservative-free Mri (I-Stat/1.5t) Work Phone: [facility] 04-01-2018 influenza, high dose seasonal, preservative-free Mri (I-Stat/1.5t) Work Phone: [facility] 04-09-2017 influenza, injectabl e, quadrivalent, contains preservative Selwyn Lai MD Work Phone: [facility] 04-09-2017 influenza, seasonal, injectable Mri (I-Stat/1.5t) Work Phone: [facility] Work Phone: 01-22-2017 pneumococcal conjuga te vaccine, 13 valent Mri (I-Stat/1.5t) Work Phone: [facility] Work Phone: 04-10-2016 influenza, injectabl e, quadrivalent, contains preservative Selwyn Lai MD Work Phone: [facility] 04-10-2016 influenza, seasonal, injectable Mri (I-Stat/1.5t) Work Phone: [facility] Work Phone: 10-11-2015 pneumococcal polysaccharide vaccine, 23 valent Mri (I-Stat/1.5t) Work Phone: [facility] Work Phone: 05-26-2015 influenza virus vacc ine, unspecified formulation Selwyn Lai MD Work Phone: [facility] 05-26-2015 influenza, seasonal, injectable Mri (I-Stat/1.5t) Work Phone: [facility] Work Phone: 07-07-2014 diphtheria, tetanus toxoids and acellular pertussis vaccine Mri (I-Stat/1.5t) Work Phone: [facility] Work Phone: NEGATED: Highlighted row has not occurred!07-15-2024 Seasonal trivalent influenza vaccine, adjuvanted, preservative free Selwyn Lai MD Work Phone: [facility] Comment on above: Deferred: Contraindi cation - pt had flu shot this season Payers Date Payer Category Payer Medicaid HMO UHC ANNA Larsen EDICAID ONLY [id number] 2023 Self-pay 2023 Unknown [id number] 2019 Medicare UHC MEDICARE [facility] DUAL COMPLETE HMO SNP [id number] 2019-Present [phone] [address] [place] [address] Medicare [id number] 2019 Medicare (Managed Care) [id number]. [id number] 2019 Medicare [facility] DUAL COMPLET E [facility] Address: [address] [place] [address] [id number] 2019 Unknown [id number] 2018 Medicaid [facility] MEDICAID [employer] [facility] MEDICAID [id number] 2018-Present [phone] [address] [place] [id number] Medicaid [id number] 2018 Medicaid [id number] 2018 Medicaid [id number] 2012 Medicare 2012 Medicare [id number] Private Health Insurance Unknown [id number] Unknown [id number] Unknown [id number] Unknown [id number] Unknown [id number] Unknown [id number] Unknown [id number] Unknown [id number] Unknown [id number] Social History Date Type Detail Facility Start: 09-18-2018 [facility] History of tobacco use Cigarette Smoker [facility] Start: 09-18-2018 End: 01-18-2023 Tobacco use and exposure Smokeless tobacco non-user [facility] Start: 09-14-2021 End: 11-03-2024 Alcohol intake Current non-drinker of alcohol (finding) [facility] Start: 02-09-2018 Tobacco Comment smoked for [address] [employer] in [employer] [facility] Start: 1945 Sex Assigned At Not on file C [facility] Start: 09-30-2021 End: 05-16-2022 Exposure to SARS-CoV-2 (event) Not sure [facility] Start: 01-30-2022 End: 01-18-2023 Tobacco smoking status NHIS Never smoked tobacco [facility] Start: 01-01-2023 End: 09-23-2024 History of Social function [facility] Work Phone: Start: 01-01-2023 End: 09-23-2024 Tobacco use panel [facility] Work Phone: Adult Depression Screening Assessment 0 [facility] Work Phone: How hard is it for y ou to pay for the very basics like food, housing, medical care, and heating Not very hard [facility] (I/We) worried wheth er (my/our) food would run out before (I/we) got money to buy more. Never true [facility] In the past 12 month s, was there a time when you were not able to pay the mortgage or rent on time? No [facility] Tobacco smoking consumption unknown [facility] History of tobacco use Current smoker [facility] Start: 02-05-2022 End: 10-12-2024 Sex Female (finding) [employer] Start: 1945 Sex Assigned At Female [facility] Medical Equipment Procedure Code Equipment Code Equipment Origin al Text Equipment Identifier Dates Lens Acrysof Ultrasert +25.5 Diopter Acrylic Iol 1 Piece Foldable Uv Blue - [id number] Start: 05-05-2019 Lens Acrysof Ultrasert +25.5 Diopter Acrylic Iol 1 Piece Foldable Uv Blue - [id number] Start: 08-30-2020 Start: 07-27-2021 End: 03-03-2024 Comment on above: 1 Strip twice daily. Use as instructed Use to check Blood G lucose level twice daily. USE TWICE DAILY TO C HECK BLOOD SUGAR DIRECTED [id number] Start: 10-22-2023 [id number] Capsurefix Novus [id number] Start: 10-22-[id number] [place] [address] Rios [id number] Start: 10-22-2023 Goals Date Patient Goal Desired Activity /State Personal health goal Functional Status Date Assessment Result Facility 12-09-2024 Are you deaf, or do you have serious difficulty hearing No 12/09/2024 12:23 PM Mariaelena Grove RN No [facility] 12-09-2024 Are you blind, or do you have serious difficulty seeing, even when wearing glasses No 12/09/2024 12:23 PM Mariaelena Grove RN No [facility] 12-09-2024 Do you have serious difficulty walking or climbing stairs Yes 12/09/2024 12:23 PM Mariaelena Grove RN Yes [facility] 12-09-2024 Do you have difficul ty dressing or bathing Yes 12/09/2024 12:23 PM Mariaelena Grove RN Yes [facility] 12-09-2024 Because of a physica l, mental, or emotional condition, do you have difficulty doing errands alone such as visiting a physician's office or shopping No 12/09/2024 12:23 PM Mariaelena Grove RN No [facility] 11-05-2024 Are you deaf, or do you have serious difficulty hearing No 11/05/2024 4:51 PM EDT Tre Mckeon RN No [facility] 11-05-2024 Do you have serious difficulty walking or climbing stairs Yes 11/05/2024 4:51 PM EDT Tre Mckeon, BLANCA Yes [facility] 11-05-2024 Do you have difficul ty dressing or bathing Yes 11/05/2024 4:51 PM EDT Tre Mckeon, BLANCA Yes [facility] 11-05-2024 Because of a physica l, mental, or emotional condition, do you have difficulty doing errands alone such as visiting a physician's office or shopping Yes 11/05/2024 4:51 PM EDT Tre Mckeon, BLANCA Yes [facility] 12-11-2023 Are you blind, or do you have serious difficulty seeing, even when wearing glasses No 12/11/2023 2:16 PM EDT Kelly Perea RN No [facility] 12-11-2023 Are you deaf, or do you have serious difficulty hearing No 12/11/2023 2:16 PM EDT Kelly Perea RN No [facility] 12-11-2023 Do you have serious difficulty walking or climbing stairs Yes 12/11/2023 2:16 PM EDT Kelly Perea RN Yes [facility] 12-11-2023 Do you have difficul ty dressing or bathing Yes 12/11/2023 2:16 PM EDT Kelly Perea RN Yes [facility] 12-11-2023 Because of a physica l, mental, or emotional condition, do you have difficulty doing errands alone such as visiting a physician's office or shopping Yes 12/11/2023 2:16 PM EDT Kelly Perea RN Yes [facility] Mental Status Date Assessment Result Facility 12-09-2024 Because of a physica l, mental, or emotional condition, do you have serious difficulty concentrating, remembering, or making decisions No 12/09/2024 12:23 PM EDT Mariaelena Cervantes RN No [facility] 11-05-2024 Because of a physica l, mental, or emotional condition, do you have serious difficulty concentrating, remembering, or making decisions Yes 11/05/2024 4:51 PM EDT Tre Mckeon, RN Yes [facility] 12-11-2023 Because of a physica l, mental, or emotional condition, do you have serious difficulty concentrating, remembering, or making decisions No 12/11/2023 2:16 PM EDT Kelly Perea, RN No [facility] Clinical Notes 10-16-2021 to 12-25-2024 Telephone Encounter - Jamila Raza - 12/25/2024 11:25 AM EDTTelephone Encounter - Jamila Raza - 12/25/2024 11:25 AM EDTPatient InstructionsPatient InstructionsPatient Instructions Note Date & Type Note Facility 12-25-2024 Telephone encounter Note Spoke to RN at [facility]. Informed RN about prescription being faxed over along with lab work (CBC) needing to be drawn in a week (12/30/24). Scanned faxed documents into chart. Pt is scheduled w/ GLASS HANDLER Elvin Wilde on . 01/05/25 at 8:30 AM at [facility]. Jamila Raza [facility] 12-25-2024 Miscellaneous Notes Spoke to RN at [facility]. Informed RN about prescription being faxed over along with lab work (CBC) needing to be drawn in a week (12/30/24). Scanned faxed documents into chart. Pt is scheduled w/ SANDRA Wilde on . 01/05/25 at 8:30 AM at [facility]. Jamila Raza Awaiting call back from [facility] to schedule appt. Jamila Raza Spoke with son regarding findings of A-flutter device check from Dr. Leon. Son states that patient now resides in nursing facility, [facility]. Called over and spoke with patient's nurse Umu regarding findings of device check. Explained to both patient and nurse regarding plan of care of initiating Eliquis with the potential of DCCV as well as referral over to electrophysiology. Reviewed patient's most recent lab work as well as hospital stay. There is a concern for potential GI bleed on 10/30/2024, which was deemed to be related to drinking linares juice. Most recent CBC shows hemoglobin at 11.1. Will order a repeat CBC in 1 week. Patient agreeable to plan of care. Patient and nurse requesting Eliquis prescription to be printed and sent over to her facility to be filled. Will print prescription and fax over to [phone] to [facility]. Please call patient and help coordinate an appointment with electrophysiology when possible. Thanks, Ministerio Esposito APRN.BOXING AND PRESSING SUPERVISOR documented in this encounter [facility] 12-25-2024 Telephone encounter Note Awaiting call back from [facility] to schedule appt. Jamila Raza [facility] 12-23-2024 Telephone encounter Note Spoke with son regarding findings of A-flutter device check from Dr. Leon. Son states that patient now resides in nursing facility, [facility]. Called over and spoke with patient's nurse Umu regarding findings of device check. Explained to both patient and nurse regarding plan of care of initiating Eliquis with the potential of DCCV as well as referral over to electrophysiology. Reviewed patient's most recent lab work as well as hospital stay. There is a concern for potential GI bleed on 10/30/2024, which was deemed to be related to drinking linares juice. Most recent CBC shows hemoglobin at 11.1. Will order a repeat CBC in 1 week. Patient agreeable to plan of care. Patient and nurse requesting Eliquis prescription to be printed and sent over to her facility to be filled. Will print prescription and fax over to [phone] to [facility]. Please call patient and help coordinate an appointment with electrophysiology when possible. Thanks, Ministerio Esposito APRN.CNP [facility] 12-23-2024 Telephone encounter Note ----- Message from Reece Guaman MD sent at 12/23/2024 1:45 PM EDT ----- Regarding: RE: new atrial flutter Hi Tone, Can you contact patient and start her on oral anticoagulation if there are no contraindications (nothing I noted on brief review of her chart). I agree that subsequent ISABELLE/CV would certainly be reasonable given that she has had persistent atrial flutter since 11/07. Otherwise, agree that patient should probably formally establish care with electrophysiology as well given she had complete heart block back in 10/29 for which she underwent pacemaker placement. Thanks, Kimberley ----- Message ----- From: Leydi Leon MD Sent: 12/23/2024 1:18 PM EDT To: Nelson Wilde APRN.CNP; Reece Guaman MD; # Subject: new atrial flutter Hi Ton Recent pacemaker interrogation reveals new atrial flutter that has been present since 11/07/2024. This was missed during recent hospitalization, likely because the cycle length of the atrial flutter is long (ie, slow rate) and the second P wave in the 2:1 flutter is buried in the QRS complexes. She is evidently not followed in EP outpatient clinic so I wanted to let you know of the atrial flutter so she can be considered for OAC (or not if risk is too high) and also perhaps to consider DCC if she sustains and is eligible for OAC. If you need/want us to see her we can get her in with Elvin Wilde sometime soon, let me know. Thanks Pierre [facility] Work Phone: 12-23-2024 Miscellaneous Notes ----- Message from Reece Guaman MD sent at 12/23/2024 1:45 PM EDT ----- Regarding: RE: new atrial flutter Hi Tone, Can you contact patient and start her on oral anticoagulation if there are no contraindications (nothing I noted on brief review of her chart). I agree that subsequent ISABELLE/CV would certainly be reasonable given that she has had persistent atrial flutter since 11/07. Otherwise, agree that patient should probably formally establish care with electrophysiology as well given she had complete heart block back in 10/29 for which she underwent pacemaker placement. Thanks, Kimberley ----- Message ----- From: Leydi Leon MD Sent: 12/23/2024 1:18 PM EDT To: Nelson Wilde APRN.CNP; Reece Guaman MD; # Subject: new atrial flutter Hi Ton Recent pacemaker interrogation reveals new atrial flutter that has been present since 11/07/2024. This was missed during recent hospitalization, likely because the cycle length of the atrial flutter is long (ie, slow rate) and the second P wave in the 2:1 flutter is buried in the QRS complexes. She is evidently not followed in EP outpatient clinic so I wanted to let you know of the atrial flutter so she can be considered for OAC (or not if risk is too high) and also perhaps to consider DCC if she sustains and is eligible for OAC. If you need/want us to see her we can get her in with Elvin Wilde sometime soon, let me know. Thanks Iperre documented in this encounter [facility] 12-14-2024 Instructions Ministerio Esposito APRN.CNP - 12/14/2024 3:52 PM EDT We discussed your recent hospital stay and follow-up care: - You were recently hospitalized for two days due to shortness of breath. You are currently following up with general cardiology. - Continue taking Lasix daily as prescribed to help prevent leg swelling and shortness of breath. Let us know if you experience worsening symptoms. - Avoid salt in your diet, as it can negatively affect your heart health. You mentioned you are already avoiding salt, which is excellent--please continue to do so. We discussed your sensitivity to cold air and certain smells: - Your sensitivity to cold air and strong smells, such as air sprays, may be related to your restrictive lung disease. These can cause lung constriction and worsen your symptoms. Avoid exposure to these triggers as much as possible. - You mentioned difficulty with your oxygen tank due to its size. If this continues to be a challenge, let us know so we can explore potential solutions. We discussed your CPAP machine: - You confirmed you have a CPAP machine for sleep apnea. Please continue using it as directed. If you encounter issues with its use or need assistance, let us know. We discussed your pacemaker: - Your pacemaker, placed last year, appears to be functioning well. There are no current concerns with your cardiac health. Follow-up: - I would like to see you again in six months for a follow-up visit. Please schedule this at the dental front office assistant before leaving. - You mentioned having another doctor s appointment in May. Please ensure you attend that as planned. If you have any new or worsening symptoms, such as increased shortness of breath, chest pain, or significant leg swelling, please contact our office or seek medical attention promptly. documented in this encounter [facility] 12-14-2024 History of Present illness Narrative PRIMARY CARE PHYSICIAN: Isiah Acevedo [address] [place] [address] Chief Complaint Patient presents with: [facility] Hospital Follow Up HISTORY OF PRESENT ILLNESS: Ms. Lopes is a 79 year old female who has a past medical history of seizure disorder, Jiménez-Hutson syncope, hypertension, HFpEF, complete atrioventricular block, bradycardia, sinus node dysfunction, hyperlipidemia, sick sinus syndrome, sleep apnea, pneumonia, hypokalemia, UTIs and diabetes type 2 comes into the office for follow-up. Patient is known to Dr. Guaman, who first saw the patient 11/03/2024 for CHF. During this time patient was admitted to the hospital for dyspnea exertion with diarrhea and cough. She stated that she was complaining of dyspnea exertion over the last 2 to 4 weeks and developed a cough over the last week. During her ED course she was found to have a proBNP elevated at 8202, troponins unremarkable at 12, 10 and 9. She was started on ceftriaxone due to concern for possible UTI and recommended for a echocardiogram. Echocardiogram revealed an EF of 50% and her last pacemaker check was in July 2024 which showed no arrhythmias. She was diuresed during hospital stay and transition to p.o. Lasix. Today she feels okay with continued complaints. The patient reports a recent hospitalization last week for two days due to dyspnea. She notes sensitivity to aerosols and cold air, which exacerbates her breathing difficulties. She uses a CPAP machine at night but reports challenges with its application by [facility] staff. She consistently uses 3 L of supplemental oxygen daily, though she finds the oxygen tank cumbersome to maneuver. She experiences intermittent lower extremity edema and has been taking Lasix daily, which she reports is effective, noting increased urinary frequency with four bathroom visits this morning. She denies any chest pain or worsening dyspnea. She adheres to a low-sodium diet, avoiding salt and pepper entirely. She mentions adverse reactions to a vitamin supplement provided at the [facility]pc, which causes gastrointestinal upset and diarrhea lasting three days. Pt denies chest pain, leg swelling, shortness of breath, heart palpitations, orthopnea, cough, fever, dizziness, near syncope or syncope, nausea, vomiting, diaphoresis, or falls. Reviewed medications, recent blood work, and testing. Reviewed with patient and adjusted as needed : PMH, PSH, Fam hx, Social hx, Allergies. Medications: Current Outpatient Medications Medication Sig Dispense Refill Senna 8.6 mg tab Take 8.6 mg by mouth once daily. polyethylene glycol 3350 (MIRALAX) 17 gram/dose powder Take 17 g by mouth once daily. Dissolve dose in 4 - 8 ounces of liquid and take as directed. 476 g 0 magnesium oxide (MAG-OX) 400 mg (241.3 mg magnesium) tablet Take 1 tablet by mouth once daily. 30 tablet 0 levETIRAcetam (KEPPRA) 500 mg tablet Take 500 mg by mouth two times a day. acetaminophen 325 mg cap Take 650 mg by mouth every 6 hours as needed for pain or fever (specify temp.). aspirin 81 mg chewable tablet Take 1 tablet by mouth once daily. polyvinyl alcohol (LIQUIFILM TEARS) 1.4 % ophthalmic solution Use 1 Drop in both eyes as needed. 15 mL 0 albuterol HFA (PROVENTIL HFA, VENTOLIN HFA) 90 mcg/actuation inhaler INHALE 2 PUFFS BY MOUTH EVERY 6 HOURS INSTRUCTED NEEDED 18 g 1 umeclidinium-vilanterol (ANORO ELLIPTA) 62.5-25 mcg/actuation inhaler Inhale 1 Inhalation as instructed once daily. 60 Each 3 atorvastatin (LIPITOR) 80 mg tablet Take 1 tablet by mouth daily at bedtime. 90 tablet 1 fluticasone (FLONASE) 50 mcg/actuation nasal spray Use 1 [place] in each nostril once daily. 16 g 0 furosemide (LASIX) 20 mg tablet Take 1 tablet by mouth once daily. 90 tablet 1 metFORMIN (GLUCOPHAGE) 1,000 mg tablet Take 1 tablet by mouth two times a day with meals. 180 tablet 2 diclofenac (VOLTAREN) 1 % topical gel Apply 4 g to affected area four times a day as needed (Pain). 450 g 2 multivitamin with minerals (VISION/OPTIGEN) tablet Take 1 tablet by mouth once daily. 250 tablet 3 cetirizine (ZYRTEC) 10 mg tablet Take 1 tablet by mouth once daily. 31 tablet 11 Biotin 10,000 mcg cap Take 1 capsule by mouth once daily. prednisoLONE acetate (PRED FORTE) 1 % ophthalmic suspension Use 1 Drop in both eyes three times a day. [id number] 1.7 mg-400 mcg- 2.4 mcg cap Take 1 capsule by mouth once daily. 90 capsule 1 twaphug-tsvqqzioo-eidvvpq D3 (OYSTER SHELL CALCIUM-VITAMIN D) 500 mg-5 mcg (200 unit) per tablet TAKE 1 TABLET BY MOUTH EVERY MORNING 30 tablet 5 Vitamin E external oil Apply 1 application to affected area once daily. (Patient not taking: Reported on 12/14/2024) 30 mL 0 nystatin (MYCOSTATIN) powder APPLY TOPICALLY TO AFFECTED AREAS TWICE DAILY (Patient not taking: Reported on 12/14/2024) 60 g 11 No current facility-administered medications for this visit. Review of Systems Constitutional: Negative for activity change, appetite change, chills, diaphoresis, fatigue, fever and unexpected weight change. Uses oxygen HENT: Negative for facial swelling and trouble swallowing. Eyes: Negative for visual disturbance. Respiratory: Positive for shortness of breath (Chronic shortness of breath). Negative for apnea, cough, chest tightness, wheezing and stridor. Cardiovascular: Negative for chest pain, palpitations and leg swelling. Gastrointestinal: Negative for abdominal distention, abdominal pain, blood in stool, nausea and vomiting. Genitourinary: Negative for hematuria. Musculoskeletal: Negative for arthralgias and myalgias. Neurological: Negative for dizziness, syncope, speech difficulty, weakness, light-headedness, numbness and headaches. Psychiatric/Behavioral: Negative for confusion and sleep disturbance. Physical Examination: Vitals:BP 104/66 Pulse 81 Ht 5' 2" (1.58m) Wt 239 lb (108.4kg) SpO2 96% BMI 43.70 kg/(m^2). Last 2 Encounter Wt Readings: Date: Wt: 12/07/2024 239 lb 13.8 oz (108.8 kg) 11/02/2024 242 lb 11.6 oz (110.1 kg) Physical Exam Vitals reviewed. Constitutional: Appearance: Normal appearance. HENT: Head: Normocephalic. Nose: Nose normal. Eyes: Pupils: Pupils are equal, round, and reactive to light. Neck: Vascular: No carotid bruit. Cardiovascular: Rate and Rhythm: Normal rate and regular rhythm. Pulses: Normal pulses. Heart sounds: Normal heart sounds. No murmur heard. No friction rub. No gallop. Pulmonary: Effort: Pulmonary effort is normal. No respiratory distress. Breath sounds: Normal breath sounds. No stridor. No wheezing, rhonchi or rales. Chest: Chest wall: No tenderness. Abdominal: General: Bowel sounds are normal. There is no distension. Palpations: Abdomen is soft. There is no mass. Tenderness: There is no abdominal tenderness. There is no guarding. Musculoskeletal: General: Normal range of motion. Right lower leg: No edema. Left lower leg: No edema. Skin: General: Skin is warm and dry. Neurological: General: No focal deficit present. Mental Status: She is alert and oriented to person, place, and time. Motor: No weakness. Gait: Gait abnormal (Uses wheelchair). Psychiatric: Mood and Affect: Mood normal. Behavior: Behavior normal. Prior Cardiac Testing EKG 12/07/2024: - Sinus rhythm with first-degree AV block Echo 11/04/2024: -EF 50% CONCLUSIONS: - Technically difficult exam due to body habitus and suboptimal positioning. - Exam indication: Evaluation of known heart failure to guide therapy - The left ventricle is normal in size. There is mild septal left ventricular hypertrophy. Left ventricular systolic function is mildly decreased. EF = 50 5% (visual est.) Definity contrast used for endocardial border detection. Left ventricular diastolic function was not evaluated due to pacing. - The right ventricle is dilated. Right ventricular systolic function is mildly decreased. - No significant valve disease. - Exam was compared with the prior echocardiographic exam performed on 05/15/2023. LV function slightly reduced when compared to report of prior study Cardiac data and report 11/05/2024: -PM remote interrogation. Presenting EGM shows p-synch RV paced @ 90 ppm. Interrogation shows no ventricular high rate or mode switch episodes since last check. Lead impedances and sensing measurements stable. Battery voltage stable. Recommended replacement time is 11.5 years. [facility] CVT Assessment and Plan: ASSESSMENT/PLAN: 1. Chronic heart failure with preserved ejection fraction (HCC) - ICD9: 428.9, ICD10: I50.32 (primary diagnosis) -Ef 50% noted on echocardiogram on 11/04/2024. -Patient currently feels well, appears euvolemic on examination -Currently being managed with Lasix 20 mg -Continue current regimen -Educated on importance of daily weights, daily blood pressure monitoring, and maintaining a cardiac diet. -Discussed foods to avoid such as canned foods, lunch meats, frozen meals, banerjee, sausage, and restaurant meals. -Encouraged to maintain a 2 L fluid restriction. 2. Primary hypertension - ICD9: 401.9, ICD10: I10 -BP 104/66 at time of visit -Currently being managed with lasix -Goal <130/80 -Continue current regimen -Educated patient to monitor blood pressure 1 hour after taking blood pressure medications and write down results to keep for future appointment. 3. Mixed hyperlipidemia - ICD9: 272.2, ICD10: E78.2 -Last lipid panel from 11/03/2024, cholesterol 76, HDL 25, LDL 23, and triglyceride 347. -On Lipitor 80 mg -Continue current regimen -Encouraged healthy lifestyle changes including exercise and diet 4. Presence of cardiac pacemaker - ICD9: V45.01, ICD10: Z95.0 -S/p placement in 2023 -Currently being managed by EP (Dr. Leon) -Continue current regimen 5. MARY (obstructive sleep apnea) - ICD9: 327.23, ICD10: G47.33 -Personal history -Patient has been complaint -Continue current regimen 6. Syncope and collapse - ICD9: 780.2, ICD10: R55 -Personal history -Patient currently denying -Continue current regimen Ministerio Esposito APRN.KALPESH Plan: Continue current regimen, follow up in 1 year Follow up planning: Return in about 6 months (around 06/15/2025) for Follow-up in 6 months with THIAGO or Dr. Guaman . Medical Decision Making: Problems: Moderate: 2+ stable chronic illnesses Data: Unique test result(s) reviewed: 2 Risk: Low: Low risk from testing/treatment Medical Decision Making Level: 3 - Low The above note was partially created using a dictation recognition software. A reasonable attempt has been made to correct any errors. I have confirmed and edited as necessary the [facility] and information obtained by others. Reviewed with patient to call office regarding symptoms and reviewed with patient that if the patient begins having increasing symptoms or if their symptoms became worse in severity to call 911 and present to the closest emergency or urgent care department for further evaluation. documented in this encounter [facility] 12-14-2024 Liz Benito [facility] 12-10-2024 Telephone encounter Note Patient was discharged from [facility] with an order to schedule with the Heart Failure Clinic. However, the patient was then immediately admitted to a custodial facility. A letter was mailed to the patient asking them to contact the Clinic upon discharge from the facility. [facility] 12-10-2024 Miscellaneous Notes Patient was discharged from [facility] with an order to schedule with the Heart Failure Clinic. However, the patient was then immediately admitted to a custodial facility. A letter was mailed to the patient asking them to contact the Clinic upon discharge from the facility. documented in this encounter [facility] 12-08-2024 Note [facility] 12-07-2024 Note SARS-COV-2 (AGENT OF COVID-19) RNA: Not detected INFLUENZA A RNA: Not detected INFLUENZA B RNA: Not detected RESPIRATORY SYNCYTIAL VIRUS (RSV) RNA: Not detected [facility] Comment on above: Performed By: #### 9 [id number] ####[facility]ORATORYCLIA [id number] [place] [address] [facility] 12-07-2024 Telephone encounter Note The patient was discharged from [facility] 11/05/24 with an order to schedule with the Heart Failure Clinic. The Clinic reached out to the patient with no response. Therefore, this is considered a deferral of the Clinic's services at this time. [facility] 12-07-2024 Miscellaneous Notes The patient was discharged from [facility] 11/05/24 with an order to schedule with the Heart Failure Clinic. The Clinic reached out to the patient with no response. Therefore, this is considered a deferral of the Clinic's services at this time. documented in this encounter [facility] 11-18-2024 History of Present illness Narrative Images from the original note were not included. [facility]- Pulmonary and Sleep Medicine [address], [address] [facility] [address] PH: [phone] Visit type: An Established patient 11/18/2024 CHIEF COMPLAINT/REASON FOR REFERRAL: Chief Complaint Patient presents with Follow-up 2month,copd,mary History of Present Illness Ana Lopes is a 79 y.o. female with history of pulmonary fibrosis, COPD chronic respiratory failure on supplemental oxygen, DVT hypertension sleep apnea currently in extended-care facility presents to the office for follow-up on 2 to 3 L supplemental oxygen Patient states that she walks with a physical therapist with a walker Pneumonia vaccine: not sure Seasonal flu vaccine: 2023 COVID vaccine:04/2023 RSV vaccine: not sure MMRC Dyspnea Scale: Grade Description of Breathlessness 0 I only get breathless with strenuous exercise. 1 I get short of breath when hurrying on level ground or walking up a slight hill. 2 On level ground, I walk slower than people of the same age because of breathlessness, or have to stop for breath when walking at my own pace. 3 I stop for breath after walking about 100 yards or after a few minutes on level ground. 4 I am too breathless to leave the house or I am breathless when dressing. PastMedical History Medical History[1] Past Surgical History Surgical History[2] Allergies Allergies[3] Medications Current Medications[4] Social History Social History Tobacco Use Smoking status: Former Smokeless tobacco: Never Tobacco comments: Quit smoking: quit in highschool Substance Use Topics Alcohol use: No Alcohol/week: 0.0 standard drinks of alcohol FamilyHistory Family History[5] Review of Systems Review of Systems Constitutional: Positive for fatigue. Respiratory: Positive for apnea and shortness of breath. Cardiovascular: Positive for leg swelling. Physical Exam Vitals: 11/18/24 1032 BP: 100/62 Pulse: 104 SpO2: 92% Weight: 224 lb (102 kg) Height: 5' 2" (1.575 m) Physical Exam Vitals reviewed. Constitutional: Appearance: She is obese. HENT: Head: Normocephalic and atraumatic. Cardiovascular: Rate and Rhythm: Normal rate and regular rhythm. Pulses: Normal pulses. Heart sounds: Normal heart sounds. Pulmonary: Effort: Pulmonary effort is normal. Breath sounds: Rales present. Musculoskeletal: Cervical back: Normal range of motion. Neurological: Mental Status: She is alert. Psychiatric: Mood and Affect: Mood normal. Behavior: Behavior normal. Data Reviewed and Summarized LABS and Studies: Available studies were personally reviewed. Salient findings summarized in HPI & A/P Imaging: Available studies were personally reviewed. Salient findings summarized in HPI & A/P CT scan of the chest done on 10 September 2024 interpreted by me shows bilateral interstitial changes consistent with fibrosis with mild bronchiectasis there are some areas of groundglass opacities as well stable in comparison to previous CAT scan, 08 July 2024 PFT's: Pulmonary Functions Testing Results: No results found for: "FEV1", "FVC", "QFO9LHT", "TLC", "DLCO" Assessment and Plan 1. Pulmonary fibrosis (HCC) (Primary) PFT never done 2. Chronic respiratory failure with hypoxia (HCC) Continue supplemental oxygen 3. Chronic bronchitis, unspecified chronic bronchitis type (HCC) - ipratropium-albuterol (Duo-Neb) 0.5-2.5 mg/3 mL nebulizer solution; Take 3 mL by nebulization 4 times daily. Dispense: 180 mL; Refill: 1 4. MARY (obstructive sleep apnea) Encourage patient to use CPAP patient currently in a facility 5. Morbid obesity (HCC) -Weight loss 6. Allergic rhinitis, unspecified seasonality, unspecified trigger Continue Flonase Jason Moran MD Pulmonary, Critical Care, & Sleep Medicine Portions of the information within this encounter were entered using an electronic dictation system. Best attempts were made to edit/proofread the information prior to note completion. Despite the review of information, some errors may remain. If there are questions related to the information contained within the note please contact the [1] Past Medical History: Diagnosis Date Allergic rhinitis Anxiety COPD (chronic obstructive pulmonary disease) (HCC) Debility Depression Dizziness DM2 (diabetes mellitus, type 2) (HCC) DVT (deep venous thrombosis) (HCC) GERD (gastroesophageal reflux disease) Hypercholesteremia Hypertension Lymphedema Migraine headache Morbid obesity (HCC) Nephrolithiasis status post perc nephrolithotomy MARY (obstructive sleep apnea) Osteoarthrosis Pneumonia Seizures (HCC) [2] Past Surgical History: Procedure Laterality Date CHOLECYSTECTOMY 1991 EYE SURGERY 2006 orbital I and D KIDNEY STONE SURGERY 2011 right then left nephrolithotomy TONSILLECTOMY (HISTORICAL) [3] Allergies Allergen Reactions Acetaminophen-Codeine Nitroglycerin Other Reaction(s): Cough, Unknown Seizure Omeprazole Diarrhea Propoxyphene Other Reaction(s): Other: See Comments Headache Acetaminophen Nausea And Vomiting Other Reaction(s): GI Upset Codeine Rash Other Reaction(s): Unknown Nabumetone Nausea And Vomiting Other Reaction(s): GI Upset [4] Current Outpatient Medications: acetaminophen (Tylenol) 325 MG suppository, Insert 325 mg into the rectum every 4 hours as needed for mild pain (1-3)., Disp: , Rfl: Alcohol Swabs (Alcohol Prep) 70 % pads, , Disp: , Rfl: aspirin 81 MG chewable tablet, Chew 81 mg daily., Disp: , Rfl: atorvastatin (Lipitor) 80 MG tablet, Take 80 mg by mouth daily., Disp: , Rfl: biotin 10 MG capsule, Take 10,000 mcg by mouth daily., Disp: , Rfl: bisacodyl (Bisacodyl EC) 5 MG EC tablet, Take 5 mg by mouth Daily as needed for constipation. Do not crush, chew, or split., Disp: , Rfl: Calcium Carbonate-Vitamin D (Oyster Shell Calcium/D) 500-5 MG-MCG tablet, Take 1 tablet by mouth daily., Disp: , Rfl: cetirizine (ZyrTEC) 10 MG tablet, Take 0.5 tablets (5 mg) by mouth daily., Disp: , Rfl: 0 Cobalamin Combinations (Neuriva Plus) capsule, Take 1 capsule by mouth daily., Disp: , Rfl: Diclofenac Sodium (Voltaren) 1 % gel, Apply 4 g topically 4 times a day., Disp: , Rfl: fluticasone (Flonase) 50 MCG/ACT nasal spray, 1 spray daily., Disp: , Rfl: furosemide (Lasix) 20 MG tablet, Take 20 mg by mouth daily., Disp: , Rfl: ipratropium-albuterol (Duo-Neb) 0.5-2.5 mg/3 mL nebulizer solution, Take 3 mL by nebulization 4 times daily., Disp: , Rfl: Lancets (OneTouch Delica Plus Uopffi31Q) [facility], , Disp: , Rfl: levETIRAcetam (Keppra) 750 MG tablet, Take 750 mg by mouth twice a day., Disp: , Rfl: magnesium hydroxide (Milk of Magnesia) 400 MG/5ML suspension, Take 30 mL by mouth Nightly., Disp: , Rfl: magnesium oxide (Mag-Ox) 400 MG tablet, Take 400 mg by mouth daily., Disp: , Rfl: metFORMIN (Glucophage) 1000 MG tablet, Take 1 tablet by mouth 2 times daily (with meals)., Disp: , Rfl: Nystop 574324 UNIT/GM powder, Apply 1 Application topically daily., Disp: , Rfl: OneTouch Verio test strip, , Disp: , Rfl: Polyethyl Glycol-Propyl Glycol (Systane) 0.4-0.3 % solution, 1 drop 2 times daily., Disp: , Rfl: polyethylene glycol, PEG, 3350 (Glycolax) 17 GM/SCOOP powder, Take 17 g by mouth daily., Disp: , Rfl: prednisoLONE acetate (Pred-Forte) 1 % ophthalmic suspension, Administer 1 drop into affected eye(s) every 8 hours., Disp: , Rfl: sennosides (Senokot) 8.6 MG tablet, Take 8.6 mg by mouth daily., Disp: , Rfl: umeclidinium-vilanterol (Anoro Ellipta) 62.5-25 MCG/ACT aerosol powder , Inhale 1 Inhalation daily., Disp: , Rfl: Ventolin HFA 108 (90 Base) MCG/ACT inhaler, Inhale 2 puffs three times daily., Disp: , Rfl: Calcium Carb-Cholecalciferol (Oyster Shell Calcium w/D) 500-5 MG-MCG tablet, Take 1 tablet by mouth daily. (Patient not taking: Reported on 11/18/2024), Disp: , Rfl: [5] Family History Problem Relation Name Age of Onset Dementia Mother documented in this encounter [facility] 11-18-2024 Instructions Michaelle Zepeda MA - 11/18/2024 10:45 AM EDT YOUR APPOINTMENT TODAY WAS WITH THE [facility], COPD CLINIC, PULMONARY AND SLEEP MEDICINE OFFICE. PLEASE CALL OUR OFFICE AT [phone] for our [place] office location or [phone] for our [place] location, IF YOU HAVE NOT RECEIVED YOUR TEST RESULTS 7 DAYS AFTER TESTING IS COMPLETED. PLEASE REMEMBER TO REQUEST REFILLS AT YOUR OFFICE VISITS. PHONE/FAX REQUESTS REQUIRE 48-72 HOURS FOR RESPONSE. A FRIENDLY REMINDER COPAYS ARE DUE AT TIME OF SERVICE. THANK YOU. Our Patients Are Important! We want to improve and you can help. After your visit we want you to feel: Listened to, Respected and have your health care explained. You may receive a survey asking you about your visit. Please complete the survey. We will use your feedback to make improvements. COVID-19 VACCINATION INFORMATION: PH. [phone] HEALTH.[email or web address] [facility] Scheduling [phone] [facility] Scheduling [phone] documented in this encounter [facility] 11-06-2024 Telephone encounter Note Patient was discharged from [facility] with an order to schedule with the Heart Failure Clinic. However, the patient was then immediately admitted to a custodial facility. A letter was mailed to the patient asking them to contact the Clinic upon discharge from the facility. [facility] 11-06-2024 Miscellaneous Notes Patient was discharged from [facility] with an order to schedule with the Heart Failure Clinic. However, the patient was then immediately admitted to a custodial facility. A letter was mailed to the patient asking them to contact the Clinic upon discharge from the facility. documented in this encounter [facility] 11-05-2024 Note [facility] 11-05-2024 Note [facility] 11-05-2024 [facility] 11-04-2024 [facility] 11-03-2024 [facility] 11-03-2024 Note [facility] 11-02-2024 Note SARS-COV-2 (AGENT OF COVID-19) RNA: Not detected INFLUENZA A RNA: Not detected INFLUENZA B RNA: Not detected RESPIRATORY SYNCYTIAL VIRUS (RSV) RNA: Not detected [facility] Comment on above: Performed By: #### 9 [id number] ####[facility]ORATORYCLIA [id number] [place] [address] [facility] [facility] 09-22-2024 Note SARS-COV-2 (AGENT OF COVID-19) RNA: Not detected INFLUENZA A RNA: Not detected INFLUENZA B RNA: Not detected RESPIRATORY SYNCYTIAL VIRUS (RSV) RNA: Not detected [facility] Comment on above: Performed By: #### [id number] ####[facility]ORATORYCLIA [id number] [place] [address] [facility] 09-14-2024 History of Present illness Narrative Images from the original note were not included. [facility]- Pulmonary and Sleep Medicine [address] , [address] [facility] [address] PH: [phone] Visit type: An Established patient 09/14/2024 CHIEF COMPLAINT/REASON FOR REFERRAL: Chief Complaint Patient presents with Follow-up 1 month History of Present Illness Ana Lopes is a 79 y.o. female with multiple medical problems including pulmonary fibrosis COPD chronic respiratory failure DVT hypertension hyperlipidemia sleep apnea recent hospitalization from 07 July to 15 July at [facility] for sepsis secondary to pneumonia treated with antibiotics, acute on chronic heart failure with reduced ejection fraction discharged home patient currently at an extended care facility, uses a walker for mobility dyspnea on exertion MMRC Dyspnea Scale: Grade Description of Breathlessness 0 I only get breathless with strenuous exercise. 1 I get short of breath when hurrying on level ground or walking up a slight hill. 2 On level ground, I walk slower than people of the same age because of breathlessness, or have to stop for breath when walking at my own pace. 3 I stop for breath after walking about 100 yards or after a few minutes on level ground. 4 I am too breathless to leave the house or I am breathless when dressing. PastMedical History Past Medical History: Diagnosis Date Allergic rhinitis Anxiety COPD (chronic obstructive pulmonary disease) ([facility]) Debility Depression Dizziness DM2 (diabetes mellitus, type 2) ([facility]) DVT (deep venous thrombosis) ([facility]) GERD (gastroesophageal reflux disease) Hypercholesteremia Hypertension Lymphedema Migraine headache Morbid obesity ([facility]) Nephrolithiasis status post perc nephrolithotomy MARY (obstructive sleep apnea) Osteoarthrosis Pneumonia Seizures (HCC) Past Surgical History Past Surgical History: Procedure Laterality Date CHOLECYSTECTOMY 1992 EYE SURGERY 2006 orbital I and D KIDNEY STONE SURGERY 2012 right then left nephrolithotomy TONSILLECTOMY (HISTORICAL) Allergies Allergies Allergen Reactions Acetaminophen-Codeine Nitroglycerin Other Reaction(s): Cough, Unknown Seizure Omeprazole Diarrhea Propoxyphene Other Reaction(s): Other: See Comments Headache Acetaminophen Nausea And Vomiting Other Reaction(s): GI Upset Codeine Rash Other Reaction(s): Unknown Nabumetone Nausea And Vomiting Other Reaction(s): GI Upset Medications Current Outpatient Medications: acetaminophen (Tylenol) 325 MG suppository, Insert 325 mg into the rectum every 4 hours as needed for mild pain (1-3)., Disp: , Rfl: Alcohol Swabs (Alcohol Prep) 70 % pads, , Disp: , Rfl: aspirin 81 MG chewable tablet, Chew 81 mg daily., Disp: , Rfl: atorvastatin (Lipitor) 80 MG tablet, Take 80 mg by mouth daily., Disp: , Rfl: biotin 10 MG capsule, Take 10,000 mcg by mouth daily., Disp: , Rfl: bisacodyl (Bisacodyl EC) 5 MG EC tablet, Take 5 mg by mouth Daily as needed for constipation. Do not crush, chew, or split., Disp: , Rfl: Calcium Carbonate-Vitamin D (Oyster Shell Calcium/D) 500-5 MG-MCG tablet, Take 1 tablet by mouth daily., Disp: , Rfl: cetirizine (ZyrTEC) 10 MG tablet, Take 0.5 tablets (5 mg) by mouth daily., Disp: , Rfl: 0 Cobalamin Combinations (Neuriva Plus) capsule, Take 1 capsule by mouth daily., Disp: , Rfl: Diclofenac Sodium (Voltaren) 1 % gel, Apply 4 g topically 4 times a day., Disp: , Rfl: fluticasone (Flonase) 50 MCG/ACT nasal spray, 1 spray daily., Disp: , Rfl: furosemide (Lasix) 20 MG tablet, Take 20 mg by mouth daily., Disp: , Rfl: Lancets (OneTouch Delica Plus [id number]) [facility], , Disp: , Rfl: levETIRAcetam (Keppra) 750 MG tablet, Take 750 mg by mouth twice a day., Disp: , Rfl: magnesium hydroxide (Milk of Magnesia) 400 MG/5ML suspension, Take 30 mL by mouth Nightly., Disp: , Rfl: metFORMIN (Glucophage) 1000 MG tablet, Take 1 tablet by mouth 2 times daily (with meals)., Disp: , Rfl: Nystop 650092 UNIT/GM powder, Apply 1 Application topically daily., Disp: , Rfl: OneTouch Verio test strip, , Disp: , Rfl: umeclidinium-vilanterol (Anoro Ellipta) 62.5-25 MCG/ACT aerosol powder , Inhale 1 Inhalation daily., Disp: , Rfl: Ventolin HFA 108 (90 Base) MCG/ACT inhaler, Inhale 2 puffs three times daily., Disp: , Rfl: Social History Social History Tobacco Use Smoking status: Former Smokeless tobacco: Never Tobacco comments: Quit smoking: quit in [employer] Substance Use Topics Alcohol use: No Alcohol/week: 0.0 standard drinks of alcohol FamilyHistory Family History Problem Relation Name Age of Onset Dementia Mother Review of Systems Review of Systems Constitutional: Positive for fatigue. Respiratory: Positive for apnea and shortness of breath. Cardiovascular: Positive for leg swelling. Physical Exam Vitals: 09/14/24 0914 BP: 121/70 Pulse: 62 SpO2: 93% Weight: 227 lb (103 kg) Height: 5' 2" (1.575 m) Physical Exam Vitals reviewed. Constitutional: Appearance: She is obese. HENT: Head: Normocephalic and atraumatic. Cardiovascular: Rate and Rhythm: Normal rate and regular rhythm. Pulses: Normal pulses. Heart sounds: Normal heart sounds. Pulmonary: Effort: Pulmonary effort is normal. Breath sounds: Rales present. Musculoskeletal: Cervical back: Normal range of motion. Right lower leg: Edema present. Left lower leg: Edema present. Neurological: Mental Status: She is alert. Psychiatric: Mood and Affect: Mood normal. Behavior: Behavior normal. Data Reviewed and Summarized LABS and Studies: Available studies were personally reviewed. Salient findings summarized in HPI & A/P Imaging: Available studies were personally reviewed. Salient findings summarized in HPI & A/P CT scan of the chest done on 10 September 2024 interpreted by me shows bilateral interstitial changes consistent with fibrosis with mild bronchiectasis there are some areas of groundglass opacities as well stable in comparison to previous CAT scan, 08 July 2024 PFT's: Pulmonary Functions Testing Results: Ordered Assessment and Plan 1. Pulmonary fibrosis (HCC) (Primary) Await PFT results patient potentially could be a candidate for antifibrotic therapy - Complete PFT pre and post bronchodilator with FENO; Future 2. MARY (obstructive sleep apnea) Encourage CPAP use 3. Morbid obesity (HCC) Counseled on weight loss 4. Chronic respiratory failure with hypoxia (HCC) Continue supplemental oxygen to keep oxygen saturation above 92 percentile - Complete PFT pre and post bronchodilator with FENO; Future 5. Chronic bronchitis, unspecified chronic bronchitis type (HCC) Continue as needed albuterol - Complete PFT pre and post bronchodilator with FENO; Future 6. Chronic systolic CHF (congestive heart failure) ([facility]) Appears to be compensated at this time echocardiogram from July 09, 2024 LVEF was 45% mild hypokinesis mid anteroseptal, indeterminate diastolic dysfunction Jason Moran MD Pulmonary, Critical Care, & Sleep Medicine Portions of the information within this encounter were entered using an electronic dictation system. Best attempts were made to edit/proofread the information prior to note completion. Despite the review of information, some errors may remain. If there are questions related to the information contained within the note please contact the documented in this encounter [facility] 08-21-2024 Telephone encounter Note Name of caller: Zahira Contact phone number: [phone] Relationship to Patient: t [facility] Provider: THIAGO Love CNP Practice: [facility] Chief Complaint/Reason for Call: [facility]pc need the BIPAP order faxed to them. #[phone] Best time of day caller can be reached: PM [facility] 08-21-2024 Miscellaneous Notes Name of caller: Tazloy Contact phone number: [phone] [facility] Provider: THIAGO Love CNP Practice: [facility] Chief Complaint/Reason for Call: fpc need the BIPAP order faxed to them. #[phone] Best time of day caller can be reached: PM Noted, thank you Spoke with nurse taking care of patient at [facility]. She tells me patient does not have active order for BiPAP and would likely need to bring in her own home device to use there. During office visit today, patient stated she is agreeable to resume her PAP therapy. I have placed an order for this, please send to DME supplier. I am aware she hasn't had sleep study done since 2019, so new medicare guidelines may require she have a repeat sleep study to re-instate her PAP. Please let me know if that is the case and if patient is agreeable to new sleep study, I will order. documented in this encounter [facility] 08-17-2024 Telephone encounter Note Your patient has been scheduled for their CT chest WO on 09/10/24 at [facility]. If testing requires an insurance authorization, the authorization must be in place 48 hours prior to the scheduled test or testing will be cancelled. Thank you, Central Scheduling [facility] 08-17-2024 Miscellaneous Notes Your patient has been scheduled for their CT chest WO on 09/10/24 at [facility]. If testing requires an insurance authorization, the authorization must be in place 48 hours prior to the scheduled test or testing will be cancelled. Thank you, Central Scheduling documented in this encounter [facility] 08-13-2024 Telephone encounter Note Noted, thank you [facility] 08-13-2024 Miscellaneous Notes Noted, thank you Spoke with nurse taking care of patient at [facility]. She tells me patient does not have active order for BiPAP and would likely need to bring in her own home device to use there. During office visit today, patient stated she is agreeable to resume her PAP therapy. I have placed an order for this, please send to DME supplier. I am aware she hasn't had sleep study done since 2019, so new medicare guidelines may require she have a repeat sleep study to re-instate her PAP. Please let me know if that is the case and if patient is agreeable to new sleep study, I will order. documented in this encounter [facility] 08-13-2024 Telephone encounter Note Spoke with nurse taking care of patient at [facility]. She tells me patient does not have active order for BiPAP and would likely need to bring in her own home device to use there. During office visit today, patient stated she is agreeable to resume her PAP therapy. I have placed an order for this, please send to DME supplier. I am aware she hasn't had sleep study done since 2019, so new medicare guidelines may require she have a repeat sleep study to re-instate her PAP. Please let me know if that is the case and if patient is agreeable to new sleep study, I will order. [facility] 08-13-2024 History of Present illness Narrative Images from the original note were not included. [facility] Pulmonary Medicine [address] [place] [address] Dr. [place]a [place] [address] Date of Service: 08/13/2024 Visit type: An Established patient Chief Complaint/Reason for Referral: Hospital Follow-up (Copd ) SUBJECTIVE History of Present Illness: Ana Lopes ( 1945) is a 79 y.o. female patient, with significant PMH of seizure disorder, HFrEF, CHB s/p PPM, COPD, chronic hypoxic respiratory failure, MARY, and tobacco use, being seen for hospital follow up. The patient was admitted to [facility] on 07/07-07/15/24 for acute on chronic HFpEF. Pulmonary consulted for pulmonary edema. CXR with patchy opacities in RUL and LLL, though PNA work up negative. Started empiric antibiotics, but discontinued due to negative work up. Treated with diuretics. Remained on baseline 2L O2. Discharged in stable condition to SNF. Today, patient reports dyspnea has been stable at baseline. Feels sleepy, which is normal for her. Reports dry cough for quite a long time. She is unable to quantify how long. Takes anoro daily, which she feels does help. Has chronic nasal congestion, and uses nasal spray which helps. Uses 2L O2 all the time. Spends majority of time in chair, but able to walk short distances such as to the bathroom and back. Working with therapy. States she has resided at SNF for last 8 months, but planning to move to independent living but unsure when. Says she hasn't been using her CPAP because it got recalled and she didn't turn it in yet. Says she would use it, because it did make her feel better before. ESS: ACT: CAT: MMRC Dyspnea Scale: Grade Description of Breathlessness 0 I only get breathless with strenuous exercise. 1 I get short of breath when hurrying on level ground or walking up a slight hill. 2 On level ground, I walk slower than people of the same age because of breathlessness, or have to stop for breath when walking at my own pace. 3 I stop for breath after walking about 100 yards or after a few minutes on level ground. 4 I am too breathless to leave the house or I am breathless when dressing. OBJECTIVE MEDICAL HISTORY: Past Medical History: Diagnosis Date Allergic rhinitis Anxiety COPD (chronic obstructive pulmonary disease) (HCC) Debility Depression Dizziness DM2 (diabetes mellitus, type 2) (HCC) DVT (deep venous thrombosis) (HCC) GERD (gastroesophageal reflux disease) Hypercholesteremia Hypertension Lymphedema Migraine headache Morbid obesity (HCC) Nephrolithiasis status post perc nephrolithotomy MARY (obstructive sleep apnea) Osteoarthrosis Pneumonia Seizures (HCC) SURGICAL HISTORY: Past Surgical History: Procedure Laterality Date CHOLECYSTECTOMY 1991 EYE SURGERY 2005 orbital I and D KIDNEY STONE SURGERY 2011 right then left nephrolithotomy TONSILLECTOMY (HISTORICAL) ALLERGIES: Allergies Allergen Reactions Acetaminophen-Codeine Nitroglycerin Other Reaction(s): Cough, Unknown Seizure Omeprazole Diarrhea Propoxyphene Other Reaction(s): Other: See Comments Headache Acetaminophen Nausea And Vomiting Other Reaction(s): GI Upset Codeine Rash Other Reaction(s): Unknown Nabumetone Nausea And Vomiting Other Reaction(s): GI Upset MEDICATIONS: Current Outpatient Medications: Alcohol Swabs (Alcohol Prep) 70 % pads, , Disp: , Rfl: aspirin 81 MG chewable tablet, Chew 81 mg daily., Disp: , Rfl: atorvastatin (Lipitor) 80 MG tablet, Take 80 mg by mouth daily., Disp: , Rfl: biotin 10 MG capsule, Take 10,000 mcg by mouth daily., Disp: , Rfl: Calcium Carbonate-Vitamin D (Oyster Shell Calcium/D) 500-5 MG-MCG tablet, Take 1 tablet by mouth daily., Disp: , Rfl: cetirizine (ZyrTEC) 10 MG tablet, Take 0.5 tablets (5 mg) by mouth daily., Disp: , Rfl: 0 Cobalamin Combinations (Neuriva Plus) capsule, Take 1 capsule by mouth daily., Disp: , Rfl: Diclofenac Sodium (Voltaren) 1 % gel, Apply 4 g topically 4 times a day., Disp: , Rfl: fluticasone (Flonase) 50 MCG/ACT nasal spray, 1 spray daily., Disp: , Rfl: furosemide (Lasix) 20 MG tablet, Take 20 mg by mouth daily., Disp: , Rfl: Lancets (OneTouch Delica Plus [id number]) [facility], , Disp: , Rfl: levETIRAcetam (Keppra) 750 MG tablet, Take 750 mg by mouth twice a day., Disp: , Rfl: metFORMIN (Glucophage) 1000 MG tablet, Take 1 tablet by mouth 2 times daily (with meals)., Disp: , Rfl: Nystop 751199 UNIT/GM powder, Apply 1 Application topically daily., Disp: , Rfl: OneTouch Verio test strip, , Disp: , Rfl: polyvinyl alcohol (Liquifilm Tears) 1.4 % ophthalmic solution, Administer 1 drop into affected eye(s) if needed., Disp: , Rfl: prednisoLONE acetate (Pred-Forte) 1 % ophthalmic suspension, 1 drop by Other route 3 times a day., Disp: , Rfl: umeclidinium-vilanterol (Anoro Ellipta) 62.5-25 MCG/ACT aerosol powder , Inhale 1 Inhalation daily., Disp: , Rfl: Ventolin HFA 108 (90 Base) MCG/ACT inhaler, Inhale 2 puffs three times daily., Disp: , Rfl: loratadine (Claritin) 10 MG tablet, Take 1 tablet by mouth daily. (Patient not taking: Reported on 08/13/2024), Disp: , Rfl: SOCIAL HISTORY: Social History Tobacco Use Smoking status: Former Smokeless tobacco: Never Tobacco comments: Quit smoking: quit in [employer] Substance Use Topics Alcohol use: No Alcohol/week: 0.0 standard drinks of alcohol FAMILY HISTORY: Family History Problem Relation Name Age of Onset Dementia Mother REVIEW OF SYSTEMS: Review of Systems Constitutional: Negative for activity change, appetite change, chills, fatigue, fever and unexpected weight change. HENT: Negative for congestion, postnasal drip, rhinorrhea, sneezing and sore throat. Respiratory: Positive for cough. Negative for apnea, chest tightness, shortness of breath and wheezing. Cardiovascular: Negative for chest pain, palpitations and leg swelling. Allergic/Immunologic: Negative for environmental allergies. Psychiatric/Behavioral: Negative for sleep disturbance. VITAL SIGNS: BP 107/70 Pulse 60 Ht 5' 2" (1.575 m) Wt 224 lb (102 kg) SpO2 91% Comment: 2 L O2 C BMI 40.97 kg/m PHYSICAL EXAM: Physical Exam DATA REVIEWED: PFT's--05/2021 IMPRESSION: Spirometry shows no obstruction.The reduced FVC suggests restriction. Recommend lung volumes if clinically indicated. The spirometric results may be reflective of the patient's body habitus. The [id number] is normal suggesting again small peripheral airways obstruction as would be seen in COPD or asthma. CXR-- CT Chest--07/08/24 ASSESSMENT and PLAN 1. Hospital discharge follow-up (Primary) -acute pulmonary issues stabilized 2. Acute on chronic HFrEF (heart failure with reduced ejection fraction) ([facility]) -appears clinically stable, euvolemic on exam. Diuretics as per cardiology 3. Chronic respiratory failure with hypoxia ([facility]) -on 2L O2 baseline. Continue supplemental O2, goal to keep pulse ox around 92% 4. Chronic obstructive pulmonary disease, unspecified COPD type ([facility]) -patient reports possible history of. Using anoro with benefit. Continue as prescribed 5. ILD (interstitial lung disease) ([facility]) -possibly indicated on CT imaging as well as PFTs in 2020. Will follow up CT in about 1 more month, and if definite ILD changes, consider repeating PFTs to obtain new baseline 6. MARY (obstructive sleep apnea) -sleep study from 2019 with moderate MARY. Patient reports she has not been using her PAP because it was recalled. Will try to arrange BiPAP therapy, as patient is agreeable to use, and did find benefit with use previously. -previously recommended Auto BiPAP 24-11 cm with PS 5. Will reach out to nursing facility to see if this can be set up there. 7. Personal history of tobacco use, presenting hazards to health -remote, quit in highschool? 8. Severe obesity (BMI >= 40) ([facility]) -BMI 40, likely contributes to dyspnea FOLLOW UP: No follow-ups on file. Portions of the information within this encounter were entered using an electronic dictation system. Best attempts were made to proofread the information prior to note completion. Despite the review of the information, some errors may remain. If there are questions related to the information contained within the note please contact the signing provider directly. Electronically signed by: THIAGO Mendoza CNP Pulmonary & Sleep Medicine documented in this encounter [facility] 08-13-2024 Instructions Michaelle Zepeda MA - 08/13/2024 10:10 AM EST YOUR APPOINTMENT TODAY WAS WITH THE [facility], COPD CLINIC, PULMONARY AND SLEEP MEDICINE OFFICE. PLEASE CALL OUR OFFICE AT [phone] for our [place] office location or [phone] for our [place] location, IF YOU HAVE NOT RECEIVED YOUR TEST RESULTS 7 DAYS AFTER TESTING IS COMPLETED. PLEASE REMEMBER TO REQUEST REFILLS AT YOUR OFFICE VISITS. PHONE/FAX REQUESTS REQUIRE 48-72 HOURS FOR RESPONSE. A FRIENDLY REMINDER COPAYS ARE DUE AT TIME OF SERVICE. THANK YOU. Our Patients Are Important! We want to improve and you can help. After your visit we want you to feel: Listened to, Respected and have your health care explained. You may receive a survey asking you about your visit. Please complete the survey. We will use your feedback to make improvements. COVID-19 VACCINATION INFORMATION: PH. [phone] [email or web address] [facility] Central Scheduling [phone] [facility] Sleep Scheduling [phone] documented in this encounter [facility] 07-15-2024 Note Hospitalist Discharg e Summary Ana Lopes : 1945 Admit date: 07/07/2024 Discharge date: 07/15/2024 Admitting Physician: Selwyn Pena MD Primary Care Physician: Mayur Young Visit Status: Inpatient Code Status: Full Code Acute, acute on chronic, unstable/uncontrolled chronic problems/discharge diagnoses: Sepsis - resolved Pneumonia ?~no s/s of pna , neg urine antigens , neg respiratory panel , blood cultures negative x 48 hours , pulmonology following , this was discussed with antibiotic stewardship and discontinued vanc/zosyn 2 days ago acute on chronic heart failure - initially lasix was IV now PO , and extra dose of IV Lasix and restarted p.o. Lasix after discussion with pulmonology service UTI- urine culture positive for >100,000 e coli , sensitivity resulted , no urinary symptoms , will continue to monitor off abx Chronic hypoxemic respiratory failure - remains on 3 liters home setting , Acute on chronic heart failure with reduced ejection fraction Chronic interstitial lung disease Pacemaker status T2DM with hyperglycemia - improved, continue SS Dysphagia - speech seeing patient , on easy to chew Stable chronic problems affecting care, new non-acute discharge diagnoses: Seizure disorder - no seizures during admission, continue Keppra, right now at 750 twice daily dosage Class 2 obesity- BMI 38 Pacemaker in situ Past Medical History: Diagnosis Date Allergic rhinitis Anxiety COPD (chronic obstructive pulmonary disease) ([facility]) Debility Depression Dizziness DM2 (diabetes mellitus, type 2) ([facility]) DVT (deep venous thrombosis) ([facility]) GERD (gastroesophageal reflux disease) Hypercholesteremia Hypertension Lymphedema Migraine headache Morbid obesity (CMS/HCC) ([facility]) Nephrolithiasis status post perc nephrolithotomy MARY (obstructive sleep apnea) Osteoarthrosis Pneumonia Seizures (CMS/HCC) ([facility]) Procedures: POCT glucose meter Performed by: [facility], [address] [place] [id number] CLIA ID: [id number] POCT glucose meter Performed by: [facility], [address] [place] [id number] CLIA ID: [id number] === 07/07/24 === CT CHEST WO IV CONTRAST - Impression - Impression: Suspected pulmonary edema, superimposed on chronic interstitial changes, scarring/fibrosis. Short-term interval follow-up recommended. Cardiomegaly with cardiac pacemaker. Slightly enlarged main pulmonary artery, which may be seen with pulmonary arterial hypertension. Report Dictated on Electronically Signed By: Khang Pinedo MD Electronically Signed Date/Time: 07/08/2024 11:21 AM EST No results found for this or any previous visit from the past 365 days. LABS Results from last 7 days Lab Units 07/15/24 0240 07/14/24 0500 07/12/24 0411 07/11/24 0235 WBC AUTO 10*3/uL 9.8 9.2 8.7 9.1 HEMOGLOBIN g/dL 11.4* 11.3* 12.0 11.6* HEMATOCRIT % 35.2 35.7 37.9 36.0 PLATELETS 10*3/uL 283 273 270 264 NEUTROS PCT AUTO % 57.4 53.6 -- 45.2 LYMPHS PCT AUTO % 32.4 33.8 -- 34.4 MONOS PCT AUTO % 6.7 8.0 -- 9.3 EOS PCT AUTO % 2.6 3.9 -- 10.2* Results from last 7 days Lab Units 07/15/24 0240 07/14/24 0500 07/12/24 0411 SODIUM mmol/L 140 139 141 POTASSIUM mmol/L 4.3 4.1 4.1 CHLORIDE mmol/L 102 100 102 CO2 mmol/L 30 31 29 BUN mg/dL 26* 24* 21 CREATININE mg/dL 0.78 0.70 0.70 GLUCOSE mg/dL 155* 129* 126* CALCIUM mg/dL 9.1 9.3 9.2 Hospital Course: See discharge diagnoses list above and medication adjustments below in med rec.The patient is discharged in improved and stable condition. 79-year-old female patient is admitted with hypoxemia and lactic acidosis and initially was treated with pneumonia. Pulmonology was consulted, and she was taken off of antibiotics. Also noticed some pulmonary vascular congestion and got Lasix. She did get 3 doses of Zosyn and vancomycin. Pulmonology service recommended auto BiPAP at home and orders are placed on DEBRA and recommended a follow-up CT chest in 6 to 8 weeks She also has a history of heart failure Consults: PHARMACY TO DOSE VANCO IP CONSULT TO PULMONOLOGY IP WOUND CARE NURSE CONSULT TO EVAL IP CONSULT TO DIETITIAN Discharge Instructions: Diet: Dietary Orders (From admission, onward) Start Ordered 07/13/24 1015 Adult diet Easy to Chew; 5 carb choices (75 gm/meal) Diet effective now Comments: CHOPPED MEATS Question Answer Comment Diet type Easy to Chew Carbohydrate restriction: 5 carb choices (75 gm/meal) 07/13/24 1014 Activity: as tolerated Recommended Outpatient Tests: follow up CT chest in 6-8 weeks, cbc and BMP in 3 days Disposition: Patient discharged in stable condition to SNF . Greater than 30 minutes spent discharging the patient and coming up with patient discharge plan. Vitals: BP 111/58 (BP Location: Left arm, Patient Position: Sitting) Pulse 85 Temp 36.5 ?C (97.7 ?F) (Temporal) Resp 1 (more content not included)... [facility] 07-15-2024 Hospital course Narrative Hospitalist Discharge Summary Ana Lopes : 1945 Admit date: 07/07/2024 Discharge date: 07/15/2024 Admitting Physician: Selwyn Pena MD Primary Care Physician: Mayur Young Visit Status: Inpatient Code Status: Full Code Acute, acute on chronic, unstable/uncontrolled chronic problems/discharge diagnoses: Sepsis - resolved Pneumonia ?~no s/s of pna , neg urine antigens , neg respiratory panel , blood cultures negative x 48 hours , pulmonology following , this was discussed with antibiotic stewardship and discontinued vanc/zosyn 2 days ago acute on chronic heart failure - initially lasix was IV now PO , and extra dose of IV Lasix and restarted p.o. Lasix after discussion with pulmonology service UTI- urine culture positive for >100,000 e coli , sensitivity resulted , no urinary symptoms , will continue to monitor off abx Chronic hypoxemic respiratory failure - remains on 3 liters home setting , Acute on chronic heart failure with reduced ejection fraction Chronic interstitial lung disease Pacemaker status T2DM with hyperglycemia - improved, continue SS Dysphagia - speech seeing patient , on easy to chew Stable chronic problems affecting care, new non-acute discharge diagnoses: Seizure disorder - no seizures during admission, continue Keppra, right now at 750 twice daily dosage Class 2 obesity- BMI 38 Pacemaker in situ Past Medical History: Diagnosis Date Allergic rhinitis Anxiety COPD (chronic obstructive pulmonary disease) ([facility]) Debility Depression Dizziness DM2 (diabetes mellitus, type 2) ([facility]) DVT (deep venous thrombosis) ([facility]) GERD (gastroesophageal reflux disease) Hypercholesteremia Hypertension Lymphedema Migraine headache Morbid obesity (CMS/HCC) ([facility]) Nephrolithiasis status post perc nephrolithotomy MARY (obstructive sleep apnea) Osteoarthrosis Pneumonia Seizures ([facility]) ([facility]) Procedures: POCT glucose meter Performed by: [facility], [address] [place] [address] CLIA ID: [id number] POCT glucose meter Performed by: [facility], [address] [facility] [address] CLIA ID: [id number] === 07/07/24 === CT CHEST WO IV CONTRAST - Impression - Impression: Suspected pulmonary edema, superimposed on chronic interstitial changes, scarring/fibrosis. Short-term interval follow-up recommended. Cardiomegaly with cardiac pacemaker. Slightly enlarged main pulmonary artery, which may be seen with pulmonary arterial hypertension. Report Dictated on Electronically Signed By: Khang Pinedo MD Electronically Signed Date/Time: 07/08/2024 11:21 AM EST No results found for this or any previous visit from the past 365 days. LABS Results from last 7 days Lab Units 07/15/24 0240 07/14/24 0500 07/12/24 0411 07/11/24 0235 WBC AUTO 10*3/uL 9.8 9.2 8.7 9.1 HEMOGLOBIN g/dL 11.4* 11.3* 12.0 11.6* HEMATOCRIT % 35.2 35.7 37.9 36.0 PLATELETS 10*3/uL 283 273 270 264 NEUTROS PCT AUTO % 57.4 53.6 -- 45.2 LYMPHS PCT AUTO % 32.4 33.8 -- 34.4 MONOS PCT AUTO % 6.7 8.0 -- 9.3 EOS PCT AUTO % 2.6 3.9 -- 10.2* Results from last 7 days Lab Units 07/15/24 02407/14/24 0500 07/12/24 0411 SODIUM mmol/L 140 139 141 POTASSIUM mmol/L 4.3 4.1 4.1 CHLORIDE mmol/L 102 100 102 CO2 mmol/L 30 31 29 BUN mg/dL 26* 24* 21 CREATININE mg/dL 0.78 0.70 0.70 GLUCOSE mg/dL 155* 129* 126* CALCIUM mg/dL 9.1 9.3 9.2 Hospital Course: See discharge diagnoses list above and medication adjustments below in med rec.The patient is discharged in improved and stable condition. 79-year-old female patient is admitted with hypoxemia and lactic acidosis and initially was treated with pneumonia. Pulmonology was consulted, and she was taken off of antibiotics. Also noticed some pulmonary vascular congestion and got Lasix. She did get 3 doses of Zosyn and vancomycin. Pulmonology service recommended auto BiPAP at home and orders are placed on DEBRA and recommended a follow-up CT chest in 6 to 8 weeks She also has a history of heart failure Consults: PHARMACY TO DOSE VANCO IP CONSULT TO PULMONOLOGY IP WOUND CARE NURSE CONSULT TO EVAL IP CONSULT TO DIETITIAN Discharge Instructions: Diet: Dietary Orders (From admission, onward) Start Ordered 07/13/24 1015 Adult diet Easy to Chew; 5 carb choices (75 gm/meal) Diet effective now Comments: CHOPPED MEATS Question Answer Comment Diet type Easy to Chew Carbohydrate restriction: 5 carb choices (75 gm/meal) 07/13/24 1014 Activity: as tolerated Recommended Outpatient Tests: follow up CT chest in 6-8 weeks, cbc and BMP in 3 days Disposition: Patient discharged in stable condition to SNF . Greater than 30 minutes spent discharging the patient and coming up with patient discharge plan. Vitals: BP 111/58 (BP Location: Left arm, Patient Position: Sitting) Pulse 85 Temp 36.5 C (97.7 F) (Temporal) Resp 17 Ht 5' 4" (1.626 m) Wt 227 lb 1.2 oz (103 kg) SpO2 95% BMI 38.98 kg/m Pulse Ox: SpO2 Av.8 % Min: 91 % Max: 95 % Supplemental O2: O2 Flow Rate (L/min): 2 L/min General appearance: No apparent distress, appears stated age, HEENT: Eyes: No scleral icterus Oral: Tongue is semi-moist Cardiovascular: S1/S2 heard, RRR Respiratory: Clear to auscultation bilaterally Abdomen: Soft, non-tender, non-distended bowel sounds positive Musculoskeletal: No obvious deformities seen Skin: No visible rashes or lesions. Discharge Medications: Medication List START taking these medications predniSONE 20 MG tablet Commonly known as: Deltasone Take 1 tablet (20 mg) by mouth daily for 2 doses. Start taking on: July 16, 2024 CHANGE how you take these medications cetirizine 10 MG tablet Commonly known as: ZyrTEC Take 0.5 tablets (5 mg) by mouth daily. What changed: how much to take CONTINUE taking these medications atorvastatin 80 MG tablet Commonly known as: Lipitor biotin 10 MG capsule Diclofenac Sodium 1 % gel Commonly known as: Voltaren fluticasone 50 MCG/ACT nasal spray Commonly known as: Flonase furosemide 20 MG tablet Commonly known as: Lasix levETIRAcetam 750 MG tablet Commonly known as: Keppra metFORMIN 1000 MG tablet Commonly known as: Glucophage Neuriva Plus capsule Oyster Shell Calcium/D 500-5 MG-MCG tablet umeclidinium-vilanterol 62.5-25 MCG/ACT aerosol powder Commonly known as: Anoro Ellipta Where to Get Your Medications You can get these medications from any pharmacy Bring a paper prescription for each of these medications predniSONE 20 MG tablet Information about where to get these medications is not yet available Ask your nurse or doctor about these medications cetirizine 10 MG tablet Recommended Follow-up: Vonnie Love, WEIGH TANK OPERATOR - BOXING AND PRESSING SUPERVISOR [address] [place] [facility] [id number] Go on 07/28/2024 Pulmonary hospital follow up at 9:10 AM Mayur Scherer [facility] [address] Schedule an appointment as soon as possible for a visit in 1 week(s) for medical follow up for hospital Complexity of Follow up: [] Moderate Complexity: follow up within 7-14 calendar days (23535) [x] Severe Complexity: follow up within 7 calendar days (10341) Follow up Testing, Pending results or Referrals at Transitional Care Visit: [x] Yes, follow up with pulmonology and CT chest in 6-8 weeks [] no Instructions to MA: Please call patient on day after discharge (must document patient contacted within 2 business days of discharge). Follow up questions for MA: 1. Did you get medications filled and taking them as instructed from discharge? 2. Are you following your discharge instructions from your hospital stay? 3. Please confirm patient is scheduled for a follow up appointment within the above time frame. Signed: Ba Clement MD Division of Hospitalist Medicine Inpatient Medical Services/[facility] [place] [facility] 07/15/2024, 1:48 PM documented in this encounter [facility] 07-15-2024 Hospital Discharge instructions Ba Clement MD - 07/15/2024 1:39 PM EST As tolerated Ba Clement MD - 07/15/2024 1:39 PM EST Dietary Orders (From admission, onward) Start Ordered 07/13/24 1015 Adult diet Easy to Chew; 5 carb choices (75 gm/meal) Diet effective now Comments: CHOPPED MEATS Question Answer Comment Diet type Easy to Chew Carbohydrate restriction: 5 carb choices (75 gm/meal) 07/13/24 1014 Ugo Mckinney RN - 07/10/2024 2:52 PM EST Images from the original note were not included. Continuity of Care Form Patient Name: Ana Lopes : 1945 Admit date: 07/07/2024 Discharge date: 07/15/2024 Code Status Order: Full Code Advance Directives: N Admitting Physician: Selwyn Pena MD PCP: Mayur Young Discharging Nurse: ugo Discharging Hospital Unit/Room#: [id number]/B4-464 A Discharging Unit Emergency Contact: Extended Emergency Contact Information Primary Emergency Contact: Chucky Lopes Mobile Relation: Son Preferred language: Romanian Cops needed? No Secondary Emergency Contact: RafaelDelphine Relation: Sibling Past Surgical History: Past Surgical History: Procedure Laterality Date CHOLECYSTECTOMY 1992 EYE SURGERY 2005 orbital I and D KIDNEY STONE SURGERY 2011 right then left nephrolithotomy TONSILLECTOMY (HISTORICAL) Immunization History: Immunization History Administered Date(s) Administered DTaP 07/07/2014 Influenza, Unspecified 05/26/2015 Influenza, injectable, quadrivalent 04/10/2016, 04/09/2017 Pneumococcal Conjugate PCV 13 01/22/2017 Pneumococcal Polysaccharide PPSV23 10/11/2015 Active Problems: Medical Problems Problem List * (Principal) Pneumonia due to infectious organism, unspecified laterality, unspecified part of lung Morbid obesity ([facility]) Seizures ([facility]) Dizziness DM2 (diabetes mellitus, type 2) ([facility]) Debility Fungal skin infection Hypertension Hypercholesteremia Lymphedema Nephrolithiasis Overview Signed 04/19/2022 10:37 PM by Interface, Incoming Problems- [facility] Conversion status post perc nephrolithotomy Osteoarthrosis Migraine headache Anxiety Depression MARY (obstructive sleep apnea) COPD (chronic obstructive pulmonary disease) (HCC) GERD (gastroesophageal reflux disease) Allergic rhinitis Isolation/Infection: Droplet Pneumonia rule out, ESBL Nurse Assessment: Last Vital Signs: BP 110/56 (BP Location: Left arm, Patient Position: Lying) Pulse 71 Temp 36.3 C (97.4 F) (Temporal) Resp 16 Ht 5' 4" (1.626 m) Wt 225 lb (102 kg) SpO2 96% BMI 38.62 kg/m Last documented pain score (0-10 scale): Last Weight: Wt Readings from Last 1 Encounters: 07/10/24 225 lb (102 kg) Mental Status: DEBRA Patient Mental Status: oriented, alert, logical, and thought processes intact IV Access: DEBRA IV Access: None Nursing Mobility/ADLs: Walking Minimal assistance Transfer Minimal assistance Bathing Minimal assistance Dressing Minimal assistance Toileting Minimal assistance Feeding Independent Consumer Loan Specialist Minimal assistance Med Delivery yes Wound Care Documentation and Therapy: Elimination: Continence: Bowel: yes Bladder: no Urinary Catheter: None Colostomy/Ileostomy/Ileal Conduit: None Date of Last BM: Intake/Output Summary (Last 24 hours) at 07/10/2024 1451 Last data filed at 07/09/2024 1751 Gross per 24 hour Intake 50 ml Output -- Net 50 ml I/O last 3 completed shifts: In: 50 (0.5 mL/kg) [P.O.:50] Out: - (0 mL/kg) Weight: 102.1 kg Safety Concerns: at risk for falls and history of seizures Impairments/Disabilities: vision Nutrition Therapy: Current Nutrition Therapy: Oral diet: carb control 5 carbs/meal (2000kcals/day) and dysphagia 3 advanced Routes of Feeding: oral Liquids: thin liquids Daily Fluid Restriction: no Last Modified Barium Swallow with Video (Video Swallowing Test): not done Treatments at the Time of Hospital Discharge: Respiratory Treatments: yes Oxygen Therapy: chronic use of 3 liters NC. Ventilator: Auto Bilevel PAP with max IPAP 24 cmH2O, min EPAP 11 cmH2O, and pressure support of 3-5 cmH2O. Please use at HS and with daytime naps. Full face mask size small. Rehab Therapies: physical therapy and occupational therapy Weight Bearing Status/Restrictions: no restriction Other Medical Equipment (for information only, NOT a DME order): bedside commode, walker, wheeled walker, and wheelchair Other Treatments: none Patient's personal belongings (please select all that are sent with patient): none RN SIGNATURE: MANAGEMENT/SOCIAL WORK SECTION Inpatient Status Date: 07/07/24 Discharging to Facility/ Agency Name: [facility] Address: [address] [place] [id number] Fax: Dialysis Facility (if applicable) Name: Address: Dialysis Schedule: Phone: Fax: Able Bodied Watchman/Air Chief Marshal signature: ICIAN SECTION Name: Ana Lopes Prognosis: {Rehab Prognosis:01249} Condition at Discharge: {Patient Condition:78113} Rehab Potential (if transferring to Rehab): good Recommended Labs or Other Treatments After Discharge: Auto Bilevel PAP with max IPAP 24 cmH2O, min EPAP 11 cmH2O, and pressure support of 3-5 cmH2O. Please use at HS and with daytime naps. Full face mask size small. Will need repeat CT chest in 6-8 weeks. CBC and Bmp in 3 days The individual is being admitted to a nursing facility directly from an [facility] or a unit of a [facility] that is not operated by or licensed by [facility] under section 5119.14 or 5160-3-15.1 5 The individual requires the level of services provided by a nursing facility for the condition for which he or she was treated in the hospital and, Physician Certification: I certify the above information and transfer of Ana Lopes is necessary for the continuing treatment of the diagnosis listed and that she requires custodial facility for less than 30 days. Update Admission H&P: No change in H&P PHYSICIAN SIGNATURE: The following attachments cannot be sent through Care Everywhere.Pneumonia Discharge Instructions, Adult (Romanian)documented in this encounter [facility] 07-15-2024 Note Formatting of this n ote might be different from the original. Asked by [facility] to set transport to return to [facility]. The BLS Vehicle you requested for Ana D. in unit/room [facility] [id number] on 07/15/2024 is scheduled to arrive at 6:00pm EST! [facility] is handling this ride and you can contact them at . Pt, nurse, unit sec, TCC, and facility informed of time. [facility] 07-15-2024 Note Formatting of this n ote might be different from the original. Asked by [facility] to set transport to return to [facility]. The BLS Vehicle you requested for Ana D. in unit/room [facility] [id number] on 07/15/2024 is scheduled to arrive at 6:00pm EST! [facility] is handling this ride and you can contact them at . Pt, nurse, unit sec, TCC, and facility informed of time. [facility] 07-15-2024 Miscellaneous Notes Asked by [facility] to set transport to return to [facility]. The BLS Vehicle you requested for Ana D. in unit/room [facility] [id number] on 07/15/2024 is scheduled to arrive at 6:00pm EST! [facility] is handling this ride and you can contact them at . Pt, nurse, unit sec, TCC, and facility informed of time. LEAD LEVEL DESIGNER tasked in [facility] yesterday to begin [facility] Submitting for auth this AM. TCC will continue to follow. Problem: Knowledge Deficit Goal: Patient/family/caregiver demonstrates understanding of disease process, treatment plan, medications, and discharge instructions Outcome: Progressing Problem: Problem Interventions Goal: Promote nutritional intake Outcome: Progressing IV Lasix changed to PO, pt stated "breathing is much better". PNA testing all neg, atb DC. Will need updated PT and OT notes to submit for [facility] insurance auth. TCC will continue to follow. Problem: Knowledge Deficit Goal: Patient/family/caregiver demonstrates understanding of disease process, treatment plan, medications, and discharge instructions Outcome: Progressing Problem: Potential for Compromised Skin Integrity Goal: Skin Integrity is Maintained or Improved Outcome: Progressing Goal: Nutritional status is improving Outcome: Progressing Problem: Urinary Incontinence Goal: Perineal skin integrity is maintained or improved Outcome: Progressing Problem: Problem Interventions Goal: Promote nutritional intake Outcome: Progressing Pt from [facility]. PT/OT rec SNF, will need auth to return skilled. TCC will continue to follow. S/W, ED bedded Return referral sent via [facility] to [facility] inquiring on needs to return. S/W/TCC team to follow. Problem: Knowledge Deficit Goal: Patient/family/caregiver demonstrates understanding of disease process, treatment plan, medications, and discharge instructions Outcome: Progressing Problem: Potential for Compromised Skin Integrity Goal: Skin Integrity is Maintained or Improved Outcome: Progressing Flowsheets (Taken 07/09/2024103) Skin integrity is maintained or improved: Assess and monitor skin integrity Keep skin clean and dry Identify patients at risk for skin breakdown on admission and per policy Problem: Urinary Incontinence Goal: Perineal skin integrity is maintained or improved Flowsheets (Taken 07/09/2024103) Perineal skin integrity is maintained or improved: Assess genitourinary system, perineal skin, labs (urinalysis), and history of incontinence to include past management, aggravating, and alleviating factors Keep skin clean and dry documented in this encounter [facility] 07-15-2024 Nurse Note Wound Care consulted for Pressure Injury Prevention. Pt's Enrique score= 18 on 07/14 Pt's pressure points assessed. Pt's Heels, Buttocks/coccyx, Back, Elbows, Occiput and ears all intact. Prevention Measures in place, including: [place] sheet (obtained) with pillows/wedges, Foam heel protectors (obtained and applied), Heels elevated off bed on pillows, Sacral foam (obtained and applied), Zinc/Moisture Barrier ointment (obtained), Waffle chair cushion (obtain for pt once getting out of bed to chair). Skin Care precaution order set in place. Dietitian consult in place. PT/OT consult in place. D/W nursing staff. Will continue to follow pt. Please secure chat for any questions or concerns. Xochitl Brown RN [facility] 07-15-2024 Nurse Note Wound Care consulted for Pressure Injury Prevention. Pt's Enrique score= 18 on 07/14 Pt's pressure points assessed. Pt's Heels, Buttocks/coccyx, Back, Elbows, Occiput and ears all intact. Prevention Measures in place, including: [place] sheet (obtained) with pillows/wedges, Foam heel protectors (obtained and applied), Heels elevated off bed on pillows, Sacral foam (obtained and applied), Zinc/Moisture Barrier ointment (obtained), Waffle chair cushion (obtain for pt once getting out of bed to chair). Skin Care precaution order set in place. Dietitian consult in place. PT/OT consult in place. D/W nursing staff. Will continue to follow pt. Please secure chat for any questions or concerns. Xochitl Brown RN documented in this encounter [facility] 07-15-2024 Note Formatting of this n ote might be different from the original. LEAD LEVEL DESIGNER [facility] to begin [facility] auth for [employer]. Submitting for auth this AM. TCC will continue to follow. [facility] 07-15-2024 Note Formatting of this n ote might be different from the original. LEAD LEVEL DESIGNER [facility] to begin [facility] auth for [employer]. Submitting for auth this AM. TCC will continue to follow. [facility] 07-14-2024 Note Hospitalist Progress Note 07/14/[id number]: Please page me ([phone]) for patient care issues. [phone]: Please page [facility] Hospitalist for any issues. Subjective: Admit Date: 07/07/2024 PCP: Mayur Young Room#: [id number]/[id number] Ruth Lopes is a 79 y.o. female who presents with Pneumonia due to infectious organism, unspecified laterality, unspecified part of lung Interval History: Anxious for discharge, preauthorization started for SNF Claims that the cough is still present but is better. She is a resident of [facility] and has some complaints about the diaper change policy denies chest pain, abdominal pain, nausea, vomiting, diarrhea, constipation, fevers, or chills. Awaiting SNF precertification Adult diet Easy to Chew; 5 carb choices (75 gm/meal) 24HR INTAKE/OUTPUT: No intake or output data in the 24 hours ending 07/14/24 1819 LABS: CBC: Recent Labs 07/12/24 0411 07/14/24 0500 WBC 8.7 9.2 RBC 4.09 3.84 HGB 12.0 11.3* HCT 37.9 35.7 MCV 92.7 93.0 RDW 15.4* 15.2* PLT 270 273 BMP: Recent Labs 07/12/24 0411 07/14/24 0500 NA 141 139 K 4.1 4.1 CL 102 100 CO2 29 31 BUN 21 24* CREATININE 0.70 0.70 GLUCOSE 126* 129* CALCIUM 9.2 9.3 ANIONGAP 10 8 LIVER PROFILE: No results for input(s): "AST", "ALT", "BILITOT", "ALKPHOS", "PROT" in the last 72 hours. No lab exists for component: LABALBU PT/INR: No results for input(s): "PROTIME", "INR" in the last 72 hours. CARDIAC ENZYMES: No results for input(s): "TROPONINI" in the last 72 hours. Procalcitonin: No results found for: "PROCAL" @RISRSLTSPECIALTY@ Objective: Vitals: BP 105/55 (BP Location: Right arm, Patient Position: Lying) Pulse 64 Temp (!) 35.9 ?C (96.7 ?F) (Temporal) Resp 18 Ht 5' 4" (1.626 m) Wt 235 lb (107 kg) SpO2 94% BMI 40.34 kg/m? Pulse Ox: SpO2 Av.6 % Min: 94 % Max: 96 % Supplemental O2: O2 Flow Rate (L/min): 2 L/min 07/14/2024 General appearance: Appears anxious, appears stated age, AAOX3 Oral: Tongue is semi-moist Cardiovascular: S1/S2 heard, RRR, positive pacer Respiratory: Diminished breath sounds and compliant with oxygen, mild wheezing Abdomen: Soft, non-tender, non-distended bowel sounds positive Musculoskeletal: Mild lower extremity edema, no calf tenderness , stasis changes skin: No erythema or rash Medications: aspirin, 81 mg, Oral, Daily atorvastatin, 80 mg, Oral, Daily cetirizine, 5 mg, Oral, Daily enoxaparin, 40 mg, SubCUTAneous, Daily furosemide, 20 mg, Oral, Daily Glycopyrrolate-Formoterol, 2 puff, Inhalation, BID guaiFENesin, 600 mg, Oral, BID influenza, 0.5 mL, IntraMUSCular, Prior to discharge insulin lispro, 0-12 Units, SubCUTAneous, TID WC And insulin lispro, 0-12 Units, SubCUTAneous, Nightly ipratropium-albuterol, 3 mL, Nebulization, TID levETIRAcetam, 750 mg, Oral, BID predniSONE, 20 mg, Oral, Daily PRN medications: acetaminophen OR acetaminophen, dextrose, dextrose, glucagon (rDNA), glucose, ondansetron ODT OR ondansetron, polyethylene glycol (PEG) 3350 Assessment Sepsis - resolved Pneumonia ?~no s/s of pna , neg urine antigens , neg respiratory panel , blood cultures negative x 48 hours , pulmonology following , this was discussed with antibiotic stewardship and discontinued vanc/zosyn 2 days ago acute on chronic heart failure - initially lasix was IV now PO , and extra dose of IV Lasix and restarted p.o. Lasix after discussion with pulmonology service UTI- urine culture positive for >100,000 e coli , sensitivity resulted , no urinary symptoms , will continue to monitor off abx Chronic hypoxemic respiratory failure - remains on 3 liters home setting , T2DM with hyperglycemia - improved, continue SS Dysphagia - speech seeing patient , on easy to chew Chronic problems Seizure disorder - no seizures during admission, continue Keppra, right now at 750 twice daily dosage Class 2 obesity- BMI 38 Pacemaker in situ Plan Reviewed CBC and BMP and ordered CBC and BMP in a.m. Restarted Lasix Chest x-ray reviewed personally with atelectasis and chronic changes Monitoring off IV antibiotics Discharge planning with TCC discussed, DC to SNF -am labs, replace lytes prn -increase activity Diet Adult diet Easy to Chew; 5 carb choices (75 gm/meal) DVT Prophylaxis [x] Lovenox, [] Heparin, [] SCDs, [] Ambulation [] Already on Anticoagulation GI Prophylaxis [] PPI, [] H2 Hilary, [] Carafate, [] Diet/Tube Feeds Code Status Full Code Disposition Patient requires continued admission due to sepsis and acute respiratory insufficiency MDM [] Low, [] Moderate,[x] High Patient's risk as above Total time spent (which include face to face and non face to face encounters) : 40 minutes Toxic drug monitoring/narrow therapeutic index drug monitoring : # Drug name : Insulin sliding scale, furosemide # Route administered : Subcutaneous, intravenous # Method of monitoring : Monitoring blood sugars, (more content not included)... [facility] 07-14-2024 History of Present illness Narrative Hospitalist Progress Note 07/14/2024 [phone]: Please page me ([phone]) for patient care issues. [phone]: Please page [facility] Hospitalist for any issues. Subjective: Admit Date: 07/07/2024 PCP: Mayur Young Room#: [id number] Ruth Ana Lopes is a 79 y.o. female who presents with Pneumonia due to infectious organism, unspecified laterality, unspecified part of lung Interval History: Anxious for discharge, preauthorization started for SNF Claims that the cough is still present but is better. She is a resident of [facility] and has some complaints about the diaper change policy denies chest pain, abdominal pain, nausea, vomiting, diarrhea, constipation, fevers, or chills. Awaiting SNF precertification Adult diet Easy to Chew; 5 carb choices (75 gm/meal) 24HR INTAKE/OUTPUT: No intake or output data in the 24 hours ending 07/14/24 1819 LABS: CBC: Recent Labs 07/12/24 0411 07/14/24 0500 WBC 8.7 9.2 RBC 4.09 3.84 HGB 12.0 11.3* HCT 37.9 35.7 MCV 92.7 93.0 RDW 15.4* 15.2* PLT 270 273 BMP: Recent Labs 07/12/24 0411 07/14/24 0500 NA 141 139 K 4.1 4.1 CL 102 100 CO2 29 31 BUN 21 24* CREATININE 0.70 0.70 GLUCOSE 126* 129* CALCIUM 9.2 9.3 ANIONGAP 10 8 LIVER PROFILE: No results for input(s): "AST", "ALT", "BILITOT", "ALKPHOS", "PROT" in the last 72 hours. No lab exists for component: LABALBU PT/INR: No results for input(s): "PROTIME", "INR" in the last 72 hours. CARDIAC ENZYMES: No results for input(s): "TROPONINI" in the last 72 hours. Procalcitonin: No results found for: "PROCAL" @RISRSLTSPECIALTY@ Objective: Vitals: BP 105/55 (BP Location: Right arm, Patient Position: Lying) Pulse 64 Temp (!) 35.9 C (96.7 F) (Temporal) Resp 18 Ht 5' 4" (1.626 m) Wt 235 lb (107 kg) SpO2 94% BMI 40.34 kg/m Pulse Ox: SpO2 Av.6 % Min: 94 % Max: 96 % Supplemental O2: O2 Flow Rate (L/min): 2 L/min 07/14/2024 General appearance: Appears anxious, appears stated age, AAOX3 Oral: Tongue is semi-moist Cardiovascular: S1/S2 heard, RRR, positive pacer Respiratory: Diminished breath sounds and compliant with oxygen, mild wheezing Abdomen: Soft, non-tender, non-distended bowel sounds positive Musculoskeletal: Mild lower extremity edema, no calf tenderness , stasis changes skin: No erythema or rash Medications: aspirin, 81 mg, Oral, Daily atorvastatin, 80 mg, Oral, Daily cetirizine, 5 mg, Oral, Daily enoxaparin, 40 mg, SubCUTAneous, Daily furosemide, 20 mg, Oral, Daily Glycopyrrolate-Formoterol, 2 puff, Inhalation, BID guaiFENesin, 600 mg, Oral, BID influenza, 0.5 mL, IntraMUSCular, Prior to discharge insulin lispro, 0-12 Units, SubCUTAneous, TID WC And insulin lispro, 0-12 Units, SubCUTAneous, Nightly ipratropium-albuterol, 3 mL, Nebulization, TID levETIRAcetam, 750 mg, Oral, BID predniSONE, 20 mg, Oral, Daily PRN medications: acetaminophen OR acetaminophen, dextrose, dextrose, glucagon (rDNA), glucose, ondansetron ODT OR ondansetron, polyethylene glycol (PEG) 3350 Assessment Sepsis - resolved Pneumonia ?~no s/s of pna , neg urine antigens , neg respiratory panel , blood cultures negative x 48 hours , pulmonology following , this was discussed with antibiotic stewardship and discontinued vanc/zosyn 2 days ago acute on chronic heart failure - initially lasix was IV now PO , and extra dose of IV Lasix and restarted p.o. Lasix after discussion with pulmonology service UTI- urine culture positive for >100,000 e coli , sensitivity resulted , no urinary symptoms , will continue to monitor off abx Chronic hypoxemic respiratory failure - remains on 3 liters home setting , T2DM with hyperglycemia - improved, continue SS Dysphagia - speech seeing patient , on easy to chew Chronic problems Seizure disorder - no seizures during admission, continue Keppra, right now at 750 twice daily dosage Class 2 obesity- BMI 38 Pacemaker in situ Plan Reviewed CBC and BMP and ordered CBC and BMP in a.m. Restarted Lasix Chest x-ray reviewed personally with atelectasis and chronic changes Monitoring off IV antibiotics Discharge planning with TCC discussed, DC to SNF -am labs, replace lytes prn -increase activity Diet Adult diet Easy to Chew; 5 carb choices (75 gm/meal) DVT Prophylaxis [x] Lovenox, [] Heparin, [] SCDs, [] Ambulation [] Already on Anticoagulation GI Prophylaxis [] PPI, [] H2 Hilary, [] Carafate, [] Diet/Tube Feeds Code Status Full Code Disposition Patient requires continued admission due to sepsis and acute respiratory insufficiency MDM [] Low, [] Moderate,[x] High Patient's risk as above Total time spent (which include face to face and non face to face encounters) : 40 minutes Toxic drug monitoring/narrow therapeutic index drug monitoring : # Drug name : Insulin sliding scale, furosemide # Route administered : Subcutaneous, intravenous # Method of monitoring : Monitoring blood sugars, check basic metabolic panel Extended Emergency Contact Information Primary Emergency Contact: Chucky Lopes Mobile Relation: Son Preferred language: Romanian Cops needed? No Secondary Emergency Contact: Divya Hall Relation: Sibling Advance Directive: Full Code Discharge planning: SNF per Pt recommendations Ba Clement MD Division of Hospitalist Medicine Inpatient Medical Services/[place] Images from the original note were not included. OCCUPATIONAL THERAPY [facility] Treatment Note Name/MRN: Ana Lopes ([id number]) Date of : 1945 Age: 79 y.o. Room[facility]Bed: [facility] A Visit #: 2 out of 7 visits Discharge Recommendation: Retirement Facility Equipment Needed: No Prior Level of Function Prior Level of ADL Function: Independent Prior Level of Mobility: Independent; Device: Front wheeled walker and Wheelchair - manual FWW for short distances, W/c for longer distances. Prior Level of Transfers: Independent Assessment Pt tolerated session fairly well and continues to improve with OT POC. Pt completed bed mobility with SBA-Min A and toileting tasks with CGA. She performed STS transfers, stand step transfer, BSC transfer, and standing balance with CGA. She is limited by impaired strength, balance, and endurance. Pt would continue to benefit from skilled OT services in order to increase safety and improve functional activity tolerance necessary for ADL task completion. OT rec is SNF upon planned discharge. Subjective Pt supine in bed upon arrival, pleasant and agreeable. Per RN, pt okay to see. Pain: Pt denies any current pain. Medical Precautions: No active isolations Proper PPE donned/doffed in accordance with facility standards. Fall Risk: Cherry Fall Risk Score: 85 (High Risk) Precautions/Restrictions: N/A Family/Caregiver Present: none Objective ADLs Toileting: Contact Guard Pt completed toileting tasks at BSC with CGA, she completed standing pericare. CGA for stability in standing while completing hygiene. Bed Mobility Supine to sit: SBA Sit to supine: Min Assist Pt completed bed mobility from supine to EOB with SBA, HOB elevated and with use of bed rails. Increased time to complete. She required Min A to return to supine for light mgmt of BLEs back into bed. Denied dizziness with positional changes. Transfers/Mobility Sit to stand: Contact Guard Stand to sit: Contact Guard Stand step: Contact Guard Bedside commode: Contact Guard Standing balance: Contact Guard Pt performed STS transfers to/from EOB to FWW with CGA, VC's for hand placement for push up from/reach back to seated surfaces with fair carry over. CGA for stand step transfer to BSC, heavy reliance on FWW. CGA for steadiness. VC's for sequencing/device mgmt with fair carry over. CGA for transfer to/from BSC, she demo'd good hand placement for push up from/reach back to arms of BSC. Pt completed standing balance at FWW for approx 2 min with CGA, she demo'd increased reliance on FWW. Slight instability but no true LOB noted. Device(s) used: Front wheeled walker Cognition -WFL Plan Continue acute OT per plan of care. Safety/Education Safety Safety Devices in place: All fall risk precautions in place, call light within reach, left in bed, gait belt, patient at risk for falls, nurse notified, and no alarms engaged upon entry Restraints: No Education Education Given To: patient Education Provided: OT Role, Plan of Care, ADL Adaptive Strategies, Transfer Training, Energy Conservation, Fall Prevention Education, Discharge Recommendations, and Benefits of Increasing Activity Education Method: Verbal, Demonstration, and Teach Back Barriers to Learning: None Education Outcome: Verbalized Understanding, Demonstrated Understanding, and Continued Education Needed AM-PAC AM-PAC Inpatient Daily Activity Raw Score: 16 ADL Inpatient CMS G-Code Modifier: CK Goals Patient Stated Goal: none stated at this time. Encounter Problems Encounter Problems (Active) Dressing Upper Extremities Patient will complete upper body dressing MOD I (Not Addressed) Start: 07/09/24 Expected End: 07/19/24 Dressings Lower Extremities Patient will dress lower body MOD I (Not Addressed) Start: 07/09/24 Expected End: 07/19/24 Mobility Patient will demonstrate functional mobility with MOD I And FWW (Progressing) Start: 07/09/24 Expected End: 07/19/24 Therapeutic Exercise Pt will demo good participation in BUE exercises to increase endurance and strength for participation in ADL tasks. (Not Addressed) Start: 07/09/24 Expected End: 07/19/24 Toileting Patient will complete toileting tasks at standard toilet with modified independence. (Progressing) Start: 07/09/24 Expected End: 07/19/24 Transfers Patient will complete functional transfer with rolling walker with modified independence in order to prepare for ambulation. (Progressing) Start: 07/09/24 Expected End: 07/19/24 Therapy Time Individual Co-treatment Time In 1018 Time Out 1042 Minutes 24 Timed Code Treatment Minutes: 24 Minutes (1 ADL, 1 THER ACT) CRISTINO Palacio Cosigned by Lida Foss OT at 07/14/2024 2:08 PM EST Images from the original note were not included. PHYSICAL THERAPY [facility] Treatment Note Name/MRN: Ana Lopes ([id number]) Date of : 1945 Age: 79 y.o. Room/Bed: [facility] A Visit #: 2 out of 7 Discharge Recommendation: Retirement Facility Other: TBD at next [facility] Assessment Pt demos minimal progress toward therapy goals. Pt requires SBA to min A for bed mobility, min A for functional transfers and lateral steps EOB. Pt is currently limited by weakness, endurance, fatigue and will benefit from acute skilled PT to address current deficits. Recommendation for SNF remains appropriate. Subjective Pt pleasant and agreeable to therapy session Pain: Pt denies any current pain. Medical Precautions: No active isolations Proper PPE donned/doffed in accordance with facility standards. Fall Risk: Cherry Fall Risk Score: 85 (High Risk) Precautions/Restrictions: N/A Overall Cognitive Status: WFL Overall Orientation Status: Oriented x4 Family/Caregiver Present: none Objective Bed Mobility Supine to sit: SBA Sit to supine: Min Assist Pt completes supine->sit at SBA with HOB elevated and use of bed rails. Increased time and effort required to complete. Pt returns to supine requiring min A x1 to elevate LLE into bed with cues for positioning. Transfers/Mobility Sit to stand: Min Assist Stand to sit: Min Assist Pt completes x2 sit<->stand transfers from EOB to standard walker. Pt requires min A x1 to elevate and assist in controlled descent. Cues provided for hand placement when descending with fair carryover. Lateral steps: Pt completes ~4 lateral steps EOB requiring min A x1 for weightshifting and walker management. X2 bouts with seated rest break between trials. Device(s) used: Standard walker Plan Continue acute PT per plan of care. Safety/Education Safety Safety Devices in place: All fall risk precautions in place, call light within reach, left in bed, gait belt, patient at risk for falls, and no alarms engaged upon entry Restraints: N/A Education Education Given To: patient Education Provided: PT Role, PT Goals, Plan of Care, Transfer Training, Energy Conservation, Equipment, Discharge Recommendations, and Benefits of Increasing Activity Education Method: Verbal and Demonstration Barriers to Learning: None Education Outcome: Verbalized Understanding, Demonstrated Understanding, and Continued Education Needed Outcome Measures AM-PAC AM-PAC Inpatient Mobility Raw Score (No Stairs) : 14 Goals Patient Stated Goal: pt did not state Encounter Problems Encounter Problems (Active) Balance Patient will maintain dynamic standing balance for 5 minutes with modified independence in order to demonstrate decreased risk of falling. (Not Addressed) Start: 07/09/24 Expected End: 07/16/24 Exercise Patient will complete lower extremity exercises for 1-2 sets / 10 reps in order to improve strength and activity tolerance for mobility. (Not Addressed) Start: 07/09/24 Expected End: 07/16/24 Mobility Patient will ambulate 25 feet x 2 with modified independence and rolling walker in order to improve safety and independence with mobility. (Progressing) Start: 07/09/24 Expected End: 07/16/24 Patient will propel the wheelchair for 100 ft and modified independence in order to improve safety and independence with functional mobility. (Not Addressed) Start: 07/09/24 Expected End: 07/16/24 Transfers Patient will perform bed mobility with modified independence in order to improve independence and prepare for out of bed mobility. (Progressing) Start: 07/09/24 Expected End: 07/16/24 Patient will complete functional transfers with rolling walker with modified independence in order to prepare for ambulation. (Progressing) Start: 07/09/24 Expected End: 07/16/24 Therapy Time Individual Co-treatment Time In 0935 Time Out 0945 Minutes 10 Timed Code Treatment Minutes: 8 Minutes (ther act x1) Betzaida Johnson PT Images from the original note were not included. [facility], Pulmonary Medicine [address] [place] [id number] Patient - Ana Lopes, Age - 79 y.o. - 1945 Room Number - [id number] A Consulting - Ba Clement MD Primary Care Physician - Mayur oYung Date of Admission - 07/07/2024 2:12 PM Hospital Day - 7 Chief Complaint Ana Lopes is a 79 y.o. female who presented with chief complaint of altered mental status. Pulmonary following for pulmonary edema Hx Seizure disorder (on Keppra), CHB s/p PPM, reported COPD (no PFT, on Anoro), chronic respiratory failure (2-3 liters NC), prior tobacco use, obesity and MARY not currently using PAP therapy. Interval history Patient awake lying in bed watching TV. States her breathing is better today. Reports occasional productive cough. On 2 L nasal cannula. No new overnight concerns. A pertinent review of systems was performed and was otherwise non-contributory except as detailed in subjective section above. Objective Vitals: BP 105/55 (BP Location: Right arm, Patient Position: Lying) Pulse 64 Temp (!) 35.9 C (96.7 F) (Temporal) Resp 18 Ht 5' 4" (1.626 m) Wt 235 lb (107 kg) SpO2 94% BMI 40.34 kg/m Pulse Ox: SpO2 Av.8 % Min: 94 % Max: 96 % Supplemental O2: O2 Flow Rate (L/min): 2 L/min I/O 24HR INTAKE/OUTPUT: No intake or output data in the 24 hours ending 07/14/24 0937 Exam Physical Exam Vitals and nursing note reviewed. Constitutional: General: She is not in acute distress. Appearance: She is obese. HENT: Head: Normocephalic and atraumatic. Nose: Nose normal. No congestion or rhinorrhea. Eyes: General: No scleral icterus. Conjunctiva/sclera: Conjunctivae normal. Pupils: Pupils are equal, round, and reactive to light. Cardiovascular: Rate and Rhythm: Normal rate and regular rhythm. Pulmonary: Effort: Pulmonary effort is normal. No respiratory distress. Breath sounds: No stridor. Rales present. No wheezing or rhonchi. Chest: Chest wall: No tenderness. Musculoskeletal: Right lower leg: No edema. Left lower leg: No edema. Neurological: General: No focal deficit present. Mental Status: She is alert and oriented to person, place, and time. Mental status is at baseline. Psychiatric: Mood and Affect: Mood normal. Behavior: Behavior normal. Thought Content: Thought content normal. Judgment: Judgment normal. Medications Current Medications aspirin, 81 mg, Oral, Daily atorvastatin, 80 mg, Oral, Daily cetirizine, 5 mg, Oral, Daily enoxaparin, 40 mg, SubCUTAneous, Daily furosemide, 20 mg, Oral, Daily Glycopyrrolate-Formoterol, 2 puff, Inhalation, BID guaiFENesin, 600 mg, Oral, BID influenza, 0.5 mL, IntraMUSCular, Prior to discharge insulin lispro, 0-12 Units, SubCUTAneous, TID WC And insulin lispro, 0-12 Units, SubCUTAneous, Nightly ipratropium-albuterol, 3 mL, Nebulization, TID levETIRAcetam, 750 mg, Oral, BID predniSONE, 20 mg, Oral, Daily PRN Mediations PRN medications: acetaminophen OR acetaminophen, dextrose, dextrose, glucagon (rDNA), glucose, ondansetron ODT OR ondansetron, polyethylene glycol (PEG) 3350 Labs CBC Results from last 7 days Lab Units 07/14/24 0500 WBC AUTO 10*3/uL 9.2 HEMOGLOBIN g/dL 11.3* HEMATOCRIT % 35.7 PLATELETS 10*3/uL 273 BMP: Results from last 7 days Lab Units 07/14/24 0500 07/12/24 0411 07/11/24 0235 SODIUM mmol/L 139 141 137 POTASSIUM mmol/L 4.1 4.1 4.1 CHLORIDE mmol/L 100 102 100 CO2 mmol/L 31 29 30 BUN mg/dL 24* 21 21 CREATININE mg/dL 0.70 0.70 0.74 GLUCOSE mg/dL 129* 126* 124* CALCIUM mg/dL 9.3 9.2 9.0 LIVER PROFILE Results from last 7 days Lab Units 07/11/24 0235 07/10/24 0549 07/09/24 0419 ALK PHOS U/L 81 78 77 BILIRUBIN TOTAL mg/dL 0.3 0.4 0.5 PROTEIN TOTAL g/dL 6.8 6.7 6.5 ALT U/L 6 <6 <6 AST U/L 19 18 21 Cultures COVID/Flu/RSV: Negative Respiratory pathogens PCR: Negative Urine antigens: Negative Urine culture: + E. Coli, ESBL Blood cultures: NGTD x 48 hours MRSA PCR: negative Radiology CXR 07/13/24: MPRESSION: Lines, tubes, and devices: Unchanged dual chamber pacemaker. Lungs and pleura: Likely underlying chronic interstitial coarsening. Patchy opacities in the right upper lung and left lower lobe are similar compared to prior exam. No sizable pleural effusion or pneumothorax. Cardiomediastinal silhouette: Stable cardiomediastinal silhouette. Other: Degenerative changes of the spine and shoulders CT chest 07/08/24: Impression: Suspected pulmonary edema, superimposed on chronic interstitial changes, scarring/fibrosis. Short-term interval follow-up recommended. Cardiomegaly with cardiac pacemaker. Slightly enlarged main pulmonary artery, which may be seen with pulmonary arterial hypertension Echocardiogram 07/09/24: Left Ventricle: Left ventricle is mildly dilated. Normal wall thickness. Mildly reduced left ventricular systolic function. The EF by visual approximation is 45%. Mild hypokinesis of the following segments: mid anteroseptal. Indeterminate diastolic function due to poor image quality. Right Ventricle: Not well visualized. Mildly reduced systolic function. TAPSE is abnormal. Aortic Valve: Mild (1+) regurgitation with a centrally directed jet. Mitral Valve: Valve structure is normal. Mild annular calcification (posterior). Mild to moderate (1-2+) regurgitation. Tricuspid Valve: RVSP is 26 mmHg. Left Atrium: Left atrium size is normal. IVC/SVC: IVC diameter is normal and decreases greater than 50% during inspiration; therefore the estimated right atrial pressure is normal (~3 mmHg). Outpatient testing Pulmonary function test 05/22/21: Located under media tab: No overt airflow obstruction. Reduced VC could be secondary to restriction or air trapping. No lung volumes available. Absolute Value % Predicted Z-score FEV1/FVC 93% FEV1 0.94 44 FVC 1.01 36 TLC RV/TLC DLCO Sleep study 04/08/2019: 1. Moderate obstructive sleep apnea. Respiratory events were associated with oxygen desaturations to a parth of 86.0%. This apnea-hypopnea index (AHI) may be underestimated due to the absence of recorded REM sleep in the baseline portion of the study. 2. At a Bilevel PAP setting of 16/11 cmH2O, during which sleep was recorded in the supine position, the overall apnea-hypopnea index (AHI) was normalized, snoring was eliminated, and oxygen saturation was maintained above 90%. HOWEVER, during this study, the REM related apnea-hypopnea index was not normalized and remained in the severe range on pressure settings as high as 14/9 cmH2O. 3. Abnormal sleep architecture likely due to respiratory events, PAP titration, and first night effect. RECOMMENDATIONS: Due to persistent REM related respiratory events during this study, recommend the following: Auto Bilevel PAP with max IPAP 24 cmH2O, min EPAP 11 cmH2O, and pressure support of 3-5 cmH2O, with humidification. Recommend close clinical follow up as well as PAP data download after 4 weeks of PAP use to determine if changes to the PAP settings are necessary. A standard size ResMed AirFit N10 nasal mask without chin strap was used during this study. Active Hospital Problem List Patient Active Problem List Diagnosis Morbid obesity ([facility]) Seizures ([facility]) Dizziness DM2 (diabetes mellitus, type 2) ([facility]) Debility Fungal skin infection Hypertension Hypercholesteremia Lymphedema Nephrolithiasis Osteoarthrosis Migraine headache Anxiety Depression MARY (obstructive sleep apnea) COPD (chronic obstructive pulmonary disease) ([facility]) GERD (gastroesophageal reflux disease) Allergic rhinitis Pneumonia due to infectious organism, unspecified laterality, unspecified part of lung Assessment Chronic hypoxic respiratory failure Acute on chronic HFrEF (EF 45%) Pulmonary edema Likely underlying chronic ILD/ fibrotic changes CHB s/p PPM Seizure disorder, on Keppra MARY, not on PAP therapy Prior remote tobacco use Obesity, class II Recommendations Respiratory status stable on baseline 2 L nasal cannula. Maintain SpO2 to greater equal to 92% Chest x-ray yesterday with underlying chronic interstitial changes. Patchy opacities noted similar to prior exam PNA workup unrevealing. Patient unable to provide sputum culture. Procal 0.02. She completed 3 days of Zosyn and Vancomycin. Monitoring off antibiotics as per ID stewardship Home dose of Lasix resumed today Bevespi and scheduled DuoNeb's. Resume Anoro discharge. Prior spirometry with no overt airflow obstruction. She does have remote history of tobacco abuse. Diet as per ST recommendations Prior sleep study with moderate MARY. Recommended AutoBiPAP (24-11 cm H2O with pressure support 5 cm H2O). Orders placed on DEBRA for patient to use although she has been declining PAP patient. Recommend follow up CT chest in 6-8 weeks. Advance Directive: Full Code Discharge planning: Stable to discharge from pulmonary standpoint. Hospital follow up scheduled on 07/28/24 with Vonnie Love APRN. Will sign off at this time, please feel free to contact our service for any further questions or changes in clinical status. Case discussed with nurse and patient Questions and concerns addressed. I have discussed the patient's case and plan of care with my collaborating physician Dr. Lemus Images from the original note were not included. Speech-Language Pathology SPEECH LANGUAGE PATHOLOGY [facility] Dysphagia Treatment Note Patient Name: Ana Lopes Evaluation Date: 07/13/2024 Date of : 1945 Admission Date: 07/07/2024 2:12 PM Age: 79 y.o. Room[facility]Bed: [facility] A Subjective Patient alert and cooperative. Seen semi-upright in bed. Answers all basic questions with clear vocal quality. Follows all basic commands. No visitors at bedside. Current Diet: Dietary Orders (From admission, onward) Start Ordered 07/13/24 1015 Adult diet Easy to Chew; 5 carb choices (75 gm/meal) Diet effective now Comments: CHOPPED MEATS Question Answer Comment Diet type Easy to Chew Carbohydrate restriction: 5 carb choices (75 gm/meal) 07/13/24 1014 Aspiration Precautions: - Upright positioning for all PO intake - Small bites/sips - Alternate solid and liquids as needed - Consistent mouth care Oxygen: Oxygen Therapy: Supplemental oxygen O2 Delivery Method: Nasal cannula O2 Flow Rate (L/min): 2 L/min Pt was talking about previous toileting needs. Pain: Pt denies any current pain. PPE Worn: surgical mask, gloves Objective & Assessment Dysphagia Treatment Dysphagia Activity 1: Assess tolerance of recommended diet and advanced diet trials. Pt with appropriate tolerance of easy to chew/soft diet. "I don't eat meat" She does complain about certain foods. Agree to small trial of more cracker with peanut butter. +taking very small bites, chewing is prolonged, however adequate with soft foods for ease and safety. Feel pt is at baseline function. Edentulous and unable to chew if food if regular/hard. Plan & Recommendations Plan: Goals met. Recommend Easy to chew solids (chopped meats) and Thin liquids and meds as tolerated and the following precautions: - Upright positioning for all PO intake - PO only when fully alert - Alternate solid and liquids as needed - Consistent mouth care D/C Recommendations: No follow up therapy recommended post discharge Education Education Given: swallowing strategies, diet recommendations Given To: patient Response: verbalizes understanding Goals Patient Stated Goal: To eat pizza, I like pizza. Encounter Problems Encounter Problems (Resolved) Swallowing Patient will tolerate the least restrictive diet consistency to allow for safe consumption of daily meals (Completed) Start: 07/08/24 Expected End: 07/22/24 Resolved: 07/13/24 Patient will demonstrate safe swallowing Intervention/techniques (Completed) Start: 07/08/24 Expected End: 07/22/24 Resolved: 07/13/24 Therapy Time SENIOR RADIATION THERAPIST Individual Minutes Time In: 1429 Time Out: 1440 Minutes: 11 VALERIANO Torres Hospitalist Progress Note 07/13/2024 [phone]: Please page me ([phone]) for patient care issues. [phone]: Please page [facility] Hospitalist for any issues. Subjective: Admit Date: 07/07/2024 PCP: Mayur Young Room#: [id number] Ruth Lopes is a 79 y.o. female who presents with Pneumonia due to infectious organism, unspecified laterality, unspecified part of lung Interval History: Earlier today she had some cough and difficulty breathing. Discussed with pulmonology service and agreed to give 40 mg of Lasix and restart p.o. Lasix in a.m. chest x-ray also reviewed shows no significant change from before, still with chronic changes in the right lobe infiltrate denies chest pain, abdominal pain, nausea, vomiting, diarrhea, constipation, fevers, or chills. Awaiting SNF precertification Adult diet Easy to Chew; 5 carb choices (75 gm/meal) 24HR INTAKE/OUTPUT: Intake/Output Summary (Last 24 hours) at 07/13/2024 1728 Last data filed at 07/12/2024 2213 Gross per 24 hour Intake 170 ml Output -- Net 170 ml LABS: CBC: Recent Labs 07/11/245 07/12/24 0411 WBC 9.1 8.7 RBC 3.84 4.09 HGB 11.6* 12.0 HCT 36.0 37.9 MCV 93.8 92.7 RDW 15.7* 15.4* PLT 264 270 BMP: Recent Labs 07/11/245 07/12/24 0411 NA 137 141 K 4.1 4.1 CL 100 102 CO2 30 29 BUN 21 21 CREATININE 0.74 0.70 GLUCOSE 124* 126* CALCIUM 9.0 9.2 ANIONGAP 7 10 LIVER PROFILE: Recent Labs 07/11/24234 AST 19 ALT 6 BILITOT 0.3 ALKPHOS 81 PROT 6.8 PT/INR: No results for input(s): "PROTIME", "INR" in the last 72 hours. CARDIAC ENZYMES: No results for input(s): "TROPONINI" in the last 72 hours. Procalcitonin: No results found for: "PROCAL" @RISRSLTSPECIALTY@ Objective: Vitals: BP 157/95 (BP Location: Left arm, Patient Position: Lying) Pulse 74 Temp 36.1 C (96.9 F) (Temporal) Resp 18 Ht 5' 4" (1.626 m) Wt 235 lb 14.3 oz (107 kg) Comment: Bed Scale SpO2 95% BMI 40.49 kg/m Pulse Ox: SpO2 Av.4 % Min: 90 % Max: 96 % Supplemental O2: O2 Flow Rate (L/min): 2 L/min 07/13/2024 General appearance: Appears anxious, appears stated age, AAOX3 Oral: Tongue is semi-moist Cardiovascular: S1/S2 heard, RRR, positive pacer Respiratory: Diminished breath sounds and compliant with oxygen, mild wheezing Abdomen: Soft, non-tender, non-distended bowel sounds positive Musculoskeletal: Mild lower extremity edema, no calf tenderness skin: No erythema or rash Medications: aspirin, 81 mg, Oral, Daily atorvastatin, 80 mg, Oral, Daily cetirizine, 5 mg, Oral, Daily enoxaparin, 40 mg, SubCUTAneous, Daily furosemide, 20 mg, Oral, Daily Glycopyrrolate-Formoterol, 2 puff, Inhalation, BID guaiFENesin, 600 mg, Oral, BID influenza, 0.5 mL, IntraMUSCular, Prior to discharge insulin lispro, 0-12 Units, SubCUTAneous, TID WC And insulin lispro, 0-12 Units, SubCUTAneous, Nightly ipratropium-albuterol, 3 mL, Nebulization, TID levETIRAcetam, 750 mg, Oral, BID predniSONE, 20 mg, Oral, Daily PRN medications: acetaminophen OR acetaminophen, dextrose, dextrose, glucagon (rDNA), glucose, ondansetron ODT OR ondansetron, polyethylene glycol (PEG) 3350 Assessment Sepsis - resolved Pneumonia ?~no s/s of pna , neg urine antigens , neg respiratory panel , blood cultures negative x 48 hours , pulmonology following , this was discussed with antibiotic stewardship and discontinued vanc/zosyn yesterday Acute on chronic heart failure - initially lasix was IV now PO , and extra dose of IV Lasix and restarted p.o. Lasix after discussion with pulmonology service UTI- urine culture positive for >100,000 e coli , sensitivity resulted , no urinary symptoms , will continue to monitor off abx Chronic hypoxemic respiratory failure - remains on 3 liters home setting , T2DM with hyperglycemia - improved, continue SS Dysphagia - speech seeing patient , on easy to chew Chronic problems Seizure disorder - no seizures during admission, continue Keppra, right now at 750 twice daily dosage Class 2 obesity- BMI 38 Pacemaker in situ Plan Reviewed CBC and BMP and ordered CBC and BMP in a.m. Dose of IV Lasix Chest x-ray reviewed personally with atelectasis and chronic changes Monitoring off IV antibiotics -am labs, replace lytes prn -increase activity Diet Adult diet Easy to Chew; 5 carb choices (75 gm/meal) DVT Prophylaxis [x] Lovenox, [] Heparin, [] SCDs, [] Ambulation [] Already on Anticoagulation GI Prophylaxis [] PPI, [] H2 Hilary, [] Carafate, [] Diet/Tube Feeds Code Status Full Code Disposition Patient requires continued admission due to sepsis and acute respiratory insufficiency MDM [] Low, [] Moderate,[x] High Patient's risk as above Total time spent (which include face to face and non face to face encounters) : 40 minutes Toxic drug monitoring/narrow therapeutic index drug monitoring : # Drug name : Insulin sliding scale, furosemide # Route administered : Subcutaneous, intravenous # Method of monitoring : Monitoring blood sugars, check basic metabolic panel Extended Emergency Contact Information Primary Emergency Contact: Chucky Lopes Mobile Relation: Son Preferred language: Romanian Cops needed? No Secondary Emergency Contact: Divya Hall Relation: Sibling Advance Directive: Full Code Discharge planning: SNF per Pt recommendations Ba Clement MD Division of Hospitalist Medicine Inpatient Medical Services/[facility] [place] Nutrition Assessment Type and Reason for Visit: Reassess Nutrition Recommendations/Plan: Continue with Adult diet Easy to Chew; 5 carb choices (75 gm/meal). Will send chopped meats. Please document pt's PO intakes via flowsheet to accurately assess PO intake adequacy. ONS not currently indicated; PO intakes are adequate. Monitor intakes, weights, and labs weekly. RD will follow. 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 Tried to assure pt that she is on solid foods. Pt stated that she does not like receiving ground meats. Per SENIOR RADIATION THERAPIST recommendation on 07/09, recommended Easy to Chew with chopped meats; will modify to reflect the same in order to encourage PO intakes. Pt was sitting on the BSC during RD visit this AM, so RD kept interview brief to give pt privacy. Last documented BM prior to today was 07/06 (7 days if accurate) Estimated Daily Nutrient Needs: Energy Requirements Based On: Kcal/kg Weight Used for Energy Requirements: [place] Weight for Energy Calculation (kg): 55 kg Total Energy Requirements (kcals/day): 0497-5453 (25-30 kcal/kg IBW) Weight Used for Protein Requirements: [place] Weight in Kg Used for Protein Requirements: 55 kg Estimated Total Protein (g/day): 55-83 (1.0-1.5 g protein/kg IBW) Estimated Daily Total Fluid (ml/day): per MD Nutrition Related Findings: no edema; Glucose 126, 124, 120, Hgb 12.0, Hct 37.9, albumin 2.7, Hgb A1c 6.0% (07/08/24) Wound Type: (red coccyx, ab fold) Current Nutrition Therapies: Adult diet Easy to Chew; 5 carb choices (75 gm/meal) Current Oral Intake Average Meal Intake: 76-100%, 51-75% Average Supplements Intake: None Ordered Anthropometric Measures: Height: 162.6 cm (5' 4") Current Body Weight: 107 kg (235 lb) Weight Source: Bed Scale Admission Body Weight: 103 kg (228 lb) (stated) Usual Body Weight: 103 kg (228 lb) (per EMR--> 220# 10/03/23 and 10/15/23; 229.5# 12/28/23. per SNF 28# on 06/11/24) % Weight Change (Calculated): -1.2 [place] Body Weight (lbs) (Calculated): 120 lbs [place] Body Weight (Kg) (Calculated): 55 kg % [place] Body Weight (Calculated): 195.8 % BMI (kg/m2) (Calculated): 40.3 Weight Adjustment For: No Adjustment BMI Categories: Obese Class 3 (BMI 40.0 or greater) Nutrition Diagnosis: Altered nutrition-related lab values related to endocrine dysfuntion as evidenced by lab values Biting/chewing (masticatory) difficulty related to partial or complete edentulism as evidenced by poor dentition, other (comment) (on Easy to Chew diet) Nutrition Interventions: Nutrition Education/Counseling: No recommendation at this time Coordination of Nutrition Care: Continue to monitor while inpatient Plan of Care discussed with: Patient Goals: Previous Goal Met: Progressing toward Goal(s) Goals: PO intake 75% or greater, by next RD assessment, other (specify) Specify Other Goals: Will tolerate diet textures with ease of mastication Nutrition Monitoring and Evaluation: Behavioral-Environmental Outcomes: None Identified Food/Nutrient Intake Outcomes: Diet Advancement/Tolerance, Food and Nutrient Intake Physical Signs/Symptoms Outcomes: Biochemical Data, GI Status, Nausea or Vomiting, Fluid Status or Edema, Nutrition Focused Physical Findings, Skin, Weight Discharge Planning: Continue current diet Darin Dumont RD Contact: *[phone] or via Secure Chat Images from the original note were not included. [facility] [place], Pulmonary Medicine [address] [place], [place] [id number] Patient - Ana Lopes, Age - 79 y.o. - 1945 Room Number - [id number] A Consulting - Ba Clement MD Primary Care Physician - Mayur Hector Date of Admission - 07/07/2024 2:12 PM Hospital Day - 6 Chief Complaint Ana Lopes is a 79 y.o. female who presented with chief complaint of altered mental status. Pulmonary following for pulmonary edema Hx Seizure disorder (on Keppra), CHB s/p PPM, reported COPD (no PFT, on Anoro), chronic respiratory failure (2-3 liters NC), prior tobacco use, obesity and MARY not currently using PAP therapy. Interval history Patient awake lying in bed receiving am breathing treatment. Reports increased cough through the night. Appears comfortable and in no acute distress. On 2 liters NC. Declined PAP last night. No additional concerns at this time. A pertinent review of systems was performed and was otherwise non-contributory except as detailed in subjective section above. Objective Vitals: BP 157/95 (BP Location: Left arm, Patient Position: Lying) Pulse 74 Temp 36.1 C (96.9 F) (Temporal) Resp 18 Ht 5' 4" (1.626 m) Wt 235 lb 14.3 oz (107 kg) Comment: Bed Scale SpO2 95% BMI 40.49 kg/m Pulse Ox: SpO2 Av.8 % Min: 90 % Max: 97 % Supplemental O2: O2 Flow Rate (L/min): 2 L/min I/O 24HR INTAKE/OUTPUT: Intake/Output Summary (Last 24 hours) at 07/13/2024 0908 Last data filed at 07/12/2024 2213 Gross per 24 hour Intake 390 ml Output -- Net 390 ml Exam Physical Exam Vitals and nursing note reviewed. Constitutional: General: She is not in acute distress. Appearance: She is obese. HENT: Head: Normocephalic and atraumatic. Nose: Nose normal. No congestion or rhinorrhea. Eyes: General: No scleral icterus. Conjunctiva/sclera: Conjunctivae normal. Pupils: Pupils are equal, round, and reactive to light. Cardiovascular: Rate and Rhythm: Normal rate and regular rhythm. Pulmonary: Effort: Pulmonary effort is normal. No respiratory distress. Breath sounds: No stridor. Wheezing and rales present. No rhonchi. Chest: Chest wall: No tenderness. Musculoskeletal: Right lower leg: No edema. Left lower leg: No edema. Neurological: General: No focal deficit present. Mental Status: She is alert and oriented to person, place, and time. Mental status is at baseline. Psychiatric: Mood and Affect: Mood normal. Behavior: Behavior normal. Thought Content: Thought content normal. Judgment: Judgment normal. Medications Current Medications aspirin, 81 mg, Oral, Daily atorvastatin, 80 mg, Oral, Daily cetirizine, 5 mg, Oral, Daily enoxaparin, 40 mg, SubCUTAneous, Daily [Held by provider] furosemide, 20 mg, Oral, Daily Glycopyrrolate-Formoterol, 2 puff, Inhalation, BID guaiFENesin, 600 mg, Oral, BID influenza, 0.5 mL, IntraMUSCular, Prior to discharge insulin lispro, 0-12 Units, SubCUTAneous, TID WC And insulin lispro, 0-12 Units, SubCUTAneous, Nightly ipratropium-albuterol, 3 mL, Nebulization, TID levETIRAcetam, 750 mg, Oral, BID predniSONE, 20 mg, Oral, Daily PRN Mediations PRN medications: acetaminophen OR acetaminophen, dextrose, dextrose, glucagon (rDNA), glucose, ondansetron ODT OR ondansetron, polyethylene glycol (PEG) 3350 Labs CBC Results from last 7 days Lab Units 07/12/24 0411 WBC AUTO 10*3/uL 8.7 HEMOGLOBIN g/dL 12.0 HEMATOCRIT % 37.9 PLATELETS 10*3/uL 270 BMP: Results from last 7 days Lab Units 07/12/24 0411 07/11/24 0235 07/10/24 0549 SODIUM mmol/L 141 137 139 POTASSIUM mmol/L 4.1 4.1 3.9 CHLORIDE mmol/L 102 100 104 CO2 mmol/L 29 30 28 BUN mg/dL 21 21 14 CREATININE mg/dL 0.70 0.74 0.77 GLUCOSE mg/dL 126* 124* 120* CALCIUM mg/dL 9.2 9.0 9.0 LIVER PROFILE Results from last 7 days Lab Units 07/11/24 0235 07/10/24 0549 07/09/24 0419 ALK PHOS U/L 81 78 77 BILIRUBIN TOTAL mg/dL 0.3 0.4 0.5 PROTEIN TOTAL g/dL 6.8 6.7 6.5 ALT U/L 6 <6 <6 AST U/L 19 18 21 Cultures COVID/Flu/RSV: Negative Respiratory pathogens PCR: Negative Urine antigens: Negative Urine culture: + E. Coli, ESBL Blood cultures: NGTD x 48 hours MRSA PCR: negative Radiology CXR 07/13/24: - Ordered, pending CT chest 07/08/24: Impression: Suspected pulmonary edema, superimposed on chronic interstitial changes, scarring/fibrosis. Short-term interval follow-up recommended. Cardiomegaly with cardiac pacemaker. Slightly enlarged main pulmonary artery, which may be seen with pulmonary arterial hypertension Echocardiogram 07/09/24: Left Ventricle: Left ventricle is mildly dilated. Normal wall thickness. Mildly reduced left ventricular systolic function. The EF by visual approximation is 45%. Mild hypokinesis of the following segments: mid anteroseptal. Indeterminate diastolic function due to poor image quality. Right Ventricle: Not well visualized. Mildly reduced systolic function. TAPSE is abnormal. Aortic Valve: Mild (1+) regurgitation with a centrally directed jet. Mitral Valve: Valve structure is normal. Mild annular calcification (posterior). Mild to moderate (1-2+) regurgitation. Tricuspid Valve: RVSP is 26 mmHg. Left Atrium: Left atrium size is normal. IVC/SVC: IVC diameter is normal and decreases greater than 50% during inspiration; therefore the estimated right atrial pressure is normal (~3 mmHg). Outpatient testing Pulmonary function test 05/22/21: Located under media tab: No overt airflow obstruction. Reduced VC could be secondary to restriction or air trapping. No lung volumes available. Absolute Value % Predicted Z-score FEV1/FVC 93% FEV1 0.94 44 FVC 1.01 36 TLC RV/TLC DLCO Sleep study 04/08/2019: 1. Moderate obstructive sleep apnea. Respiratory events were associated with oxygen desaturations to a parth of 86.0%. This apnea-hypopnea index (AHI) may be underestimated due to the absence of recorded REM sleep in the baseline portion of the study. 2. At a Bilevel PAP setting of 16/11 cmH2O, during which sleep was recorded in the supine position, the overall apnea-hypopnea index (AHI) was normalized, snoring was eliminated, and oxygen saturation was maintained above 90%. HOWEVER, during this study, the REM related apnea-hypopnea index was not normalized and remained in the severe range on pressure settings as high as 14/9 cmH2O. 3. Abnormal sleep architecture likely due to respiratory events, PAP titration, and first night effect. RECOMMENDATIONS: Due to persistent REM related respiratory events during this study, recommend the following: Auto Bilevel PAP with max IPAP 24 cmH2O, min EPAP 11 cmH2O, and pressure support of 3-5 cmH2O, with humidification. Recommend close clinical follow up as well as PAP data download after 4 weeks of PAP use to determine if changes to the PAP settings are necessary. A standard size ResMed AirFit N10 nasal mask without chin strap was used during this study. Active Hospital Problem List Patient Active Problem List Diagnosis Morbid obesity (HCC) Seizures ([facility]) Dizziness DM2 (diabetes mellitus, type 2) ([facility]) Debility Fungal skin infection Hypertension Hypercholesteremia Lymphedema Nephrolithiasis Osteoarthrosis Migraine headache Anxiety Depression MARY (obstructive sleep apnea) COPD (chronic obstructive pulmonary disease) ([facility]) GERD (gastroesophageal reflux disease) Allergic rhinitis Pneumonia due to infectious organism, unspecified laterality, unspecified part of lung Assessment Chronic hypoxic respiratory failure Acute on chronic HFrEF (EF 45%) Pulmonary edema Likely underlying chronic ILD/ fibrotic changes CHB s/p PPM Seizure disorder, on Keppra MARY, not on PAP therapy Prior remote tobacco use Obesity, class II Recommendations Patient reports increased cough through the night. Wheezing noted on exam this morning while receiving AM breathing treatment. Will get follow up CXR today. Recent CT showed pulmonary edema with chronic interstitial changes. PNA workup unrevealing, however she is unable to provide sputum sample. Procal 0.02. She completed 3 days of Zosyn and Vancomycin. Abx were discontinued last week per ID stewardship recommendations. IV lasix was discontinued by primary team. Po was on hold this morning. Will give x1 40 IV lasix today and resume po tomorrow. CXR ordered as above. Discussed with Dr. Cleemnt. Bevespi and scheduled DuoNeb's. Can resume Anoro at discharge. Prior spirometry with no overt airflow obstruction. Remote history of tobacco use Stable on 2 liters NC. Maintain SpO2 > or = 92% Prior sleep study with moderate MARY. Recommended AutoBiPAP (24-11 cm H2O with pressure support 5 cm H2O). Orders placed on DEBRA for patient to use. Declined PAP therapy last night per RT notes. Recommend follow up CT chest in 6-8 weeks. Advance Directive: Full Code Discharge planning: Hospital follow up scheduled on 07/28/24 with Vonnie Love APRN Case discussed with nurse and patient Questions and concerns addressed. I have discussed the patient's case and plan of care with my collaborating physician Dr. Lemus [facility] Respiratory Care Department Progress Note Comment or reasoning for refusal: Patient was seen in attempts to fulfill CPAP/BiPAP/AutoPAP order. Patient refused PAP therapy/study at this time. Patient was educated on medical need and reasoning for physician order to ensure patient was making an informed medical decision. All of the patient's questions were answered at this time and patient was informed that if the patient changes their mind regarding wearing PAP to hit their "call light" or inform their nurse to contact Respiratory. A second, consecutive night of refusing PAP therapy/study results in order completion in the EMR. If future CPAP/BiPAP/AutoPAP therapy or study is indicated please place another order in the EMR and the assigned Respiratory Therapist will reattempt to fulfill orders. Reason for refusal: Thank you for involving Respiratory in the care of this patient, Hospitalist Progress Note 07/12/2024 [phone]: Please page me [phone]) for patient care issues. [phone]: Please page [facility] Hospitalist for any issues. Subjective: Admit Date: 07/07/2024 PCP: Mayur Young Room#: [id number] A Ana Lopes is a 79 y.o. female who presents with Pneumonia due to infectious organism, unspecified laterality, unspecified part of lung Interval History: Lying in the bed, claims that her breathing is better , she is a resident of extended care facility chart reviewed IV Lasix has been stopped denies chest pain, sob, abdominal pain, nausea, vomiting, diarrhea, constipation, fevers, or chills. Adult diet Easy to Chew; 5 carb choices (75 gm/meal) 24HR INTAKE/OUTPUT: Intake/Output Summary (Last 24 hours) at 07/12/2024 1459 Last data filed at 07/12/2024 0810 Gross per 24 hour Intake 220 ml Output 1500 ml Net -1280 ml LABS: CBC: Recent Labs 07/10/24 0549 07/11/24 0235 07/12/24 0411 WBC 8.8 9.1 8.7 RBC 3.91 3.84 4.09 HGB 11.7 11.6* 12.0 HCT 36.8 36.0 37.9 MCV 94.1 93.8 92.7 RDW 15.8* 15.7* 15.4* PLT 247 264 270 BMP: Recent Labs 07/10/24 0549 07/11/24 0235 07/12/24 0411 NA 139 137 141 K 3.9 4.1 4.1 CL 104 100 102 CO2 28 30 29 BUN 14 21 21 CREATININE 0.77 0.74 0.70 GLUCOSE 120* 124* 126* CALCIUM 9.0 9.0 9.2 ANIONGAP 7 7 10 LIVER PROFILE: Recent Labs 07/10/24 0549 07/11/24 023 AST 18 19 ALT <6 6 BILITOT 0.4 0.3 ALKPHOS 78 81 PROT 6.7 6.8 PT/INR: No results for input(s): "PROTIME", "INR" in the last 72 hours. CARDIAC ENZYMES: No results for input(s): "TROPONINI" in the last 72 hours. Procalcitonin: No results found for: "PROCAL" @RISRSLTSPECIALTY@ Objective: Vitals: BP 95/59 (BP Location: Right arm, Patient Position: Lying) Pulse 86 Temp 37 C (98.6 F) (Temporal) Resp 18 Ht 5' 4" (1.626 m) Wt 233 lb 11 oz (106 kg) Comment: Bed Scale SpO2 97% BMI 40.11 kg/m Pulse Ox: SpO2 Av % Min: 93 % Max: 98 % Supplemental O2: O2 Flow Rate (L/min): 2 L/min 07/12/2024 General appearance: No apparent distress, appears stated age, AAOX3 Oral: Tongue is semi-moist Cardiovascular: S1/S2 heard, RRR, positive pacer Respiratory: Diminished breath sounds and compliant with oxygen Abdomen: Soft, non-tender, non-distended bowel sounds positive Musculoskeletal: Mild lower extremity edema, no calf tenderness skin: No erythema or rash Medications: aspirin, 81 mg, Oral, Daily atorvastatin, 80 mg, Oral, Daily cetirizine, 5 mg, Oral, Daily enoxaparin, 40 mg, SubCUTAneous, Daily [Held by provider] furosemide, 20 mg, Oral, Daily Glycopyrrolate-Formoterol, 2 puff, Inhalation, BID guaiFENesin, 600 mg, Oral, BID influenza, 0.5 mL, IntraMUSCular, Prior to discharge insulin lispro, 0-12 Units, SubCUTAneous, TID WC And insulin lispro, 0-12 Units, SubCUTAneous, Nightly ipratropium-albuterol, 3 mL, Nebulization, TID levETIRAcetam, 750 mg, Oral, BID PRN medications: acetaminophen OR acetaminophen, dextrose, dextrose, glucagon (rDNA), glucose, ondansetron ODT OR ondansetron, polyethylene glycol (PEG) 3350 Assessment Sepsis - resolved Pneumonia ?~no s/s of pna , neg urine antigens , neg respiratory panel , blood cultures negative x 48 hours , pulmonology following , this was discussed with antibiotic stewardship and discontinued vanc/zosyn yesterday Acute on chronic heart failure - initially lasix was IV now PO , and o hold UTI- urine culture positive for >100,000 e coli , sensitivity resulted , no urinary symptoms , will continue to monitor off abx Chronic hypoxemic respiratory failure - remains on 3 liters home setting , hypoxic on RA at 85% T2DM with hyperglycemia - improved, continue SS Dysphagia - speech seeing patient , on easy to chew Chronic problems Seizure disorder - no seizures during admission, continue Keppra, right now at 750 twice daily dosage Class 2 obesity- BMI 38 Pacemaker in situ Plan Reviewed CBC and BMP and ordered CBC and BMP in a.m. Will restart Lasix p.o. Monitoring off IV antibiotics -am labs, replace lytes prn -increase activity Diet Adult diet Easy to Chew; 5 carb choices (75 gm/meal) DVT Prophylaxis [x] Lovenox, [] Heparin, [] SCDs, [] Ambulation [] Already on Anticoagulation GI Prophylaxis [] PPI, [] H2 Hilary, [] Carafate, [] Diet/Tube Feeds Code Status Full Code Disposition Patient requires continued admission due to sepsis and acute respiratory insufficiency MDM [] Low, [] Moderate,[x] High Patient's risk as above Total time spent (which include face to face and non face to face encounters) : 40 minutes Toxic drug monitoring/narrow therapeutic index drug monitoring : # Drug name : Insulin sliding scale # Route administered : Subcutaneous # Method of monitoring : Monitoring blood sugars Extended Emergency Contact Information Primary Emergency Contact: Chucky Lopes Mobile Relation: Son Preferred language: Romanian Cops needed? No Secondary Emergency Contact: Divya Hall Relation: Sibling Advance Directive: Full Code Discharge planning: SNF per Pt recommendations Ba Clement MD Division of Hospitalist Medicine Inpatient Medical Services/[facility] [place] Images from the original note were not included. PHYSICAL THERAPY [facility] Treatment Note Name/MRN: Ana Lopes ([id number]) Date of : 1945 Age: 79 y.o. Room/Bed: [facility] A Visit #: 1 out of 7 visits Discharge Recommendation: Retirement Facility Other: TBD at next leve of care Prior Level of Function Prior Level of ADL Function: Independent Prior Level of Mobility: Independent; Device: Front wheeled walker and Wheelchair - manual FWW for short distances, wheelchair for longer distances OOR Prior Level of Transfers: Independent Assessment Pt demonstrates fair tolerance to session. Pt completes bed mobility with Min A, transfers with CGA-Min A. Pt declines ambulation this session due to fatigue. Pt is limited by fatigue, weakness, and decreased activity tolerance. Pt will continue to benefit from skilled PT services to improve in overall safety and independence. Recommend SNF at discharge. Subjective Pt supine in bed, agreeable to session. Per RN, pt okay for therapy. Pain: Pt denies any current pain. Medical Precautions: No active isolations Proper PPE donned/doffed in accordance with facility standards. Fall Risk: Cherry Fall Risk Score: 70 (High Risk) Precautions/Restrictions: N/A Overall Cognitive Status: WFL Overall Orientation Status: Oriented x4 Family/Caregiver Present: none Objective Bed Mobility Supine to sit: Min Assist Sit to supine: Min Assist Pt completes supine to sit with HOB elevated and use of bedrail. Pt completes with increased time and effort. Pt requires Min A for assisting with lifting trunk upright. Pt completes sit to supine with Min A for assisting lifting B LE into bed. Transfers/Mobility Sit to stand: Contact Guard Stand to sit: Contact Guard Stand step: Contact Guard, Min Assist Bedside commode: Contact Guard Pt completes STS transfer from EOB to FWW with CGA. Pt requires cues for hand placement for transfers. Pt completes stand step transfer from EOB to BSC with FWW and CGA-Min A for balance. Increased flexed posture during transfer. Cues for safety with FWW management. Pt completes transfer from BSC to FWW with CGA. Pt able to complete toilet hygiene, but requires assist for overall completion. Device(s) used: Front wheeled walker Plan Continue acute PT per plan of care. Safety/Education Safety Safety Devices in place: All fall risk precautions in place, call light within reach, left in bed, gait belt, patient at risk for falls, nurse notified, and no alarms engaged upon entry Restraints: No Education Education Given To: patient Education Provided: PT Role, PT Goals, Plan of Care, Transfer Training, Discharge Recommendations, and Benefits of Increasing Activity Education Method: Verbal and Demonstration Barriers to Learning: None Education Outcome: Verbalized Understanding, Demonstrated Understanding, and Continued Education Needed Outcome Measures AM-PAC AM-PAC Inpatient Mobility Raw Score (No Stairs) : 14 Goals Patient Stated Goal: Patient states she wants to stop falling. Encounter Problems Encounter Problems (Active) Balance Patient will maintain dynamic standing balance for 5 minutes with modified independence in order to demonstrate decreased risk of falling. Start: 07/09/24 Expected End: 07/16/24 Exercise Patient will complete lower extremity exercises for 1-2 sets / 10 reps in order to improve strength and activity tolerance for mobility. Start: 07/09/24 Expected End: 07/16/24 Mobility Patient will ambulate 25 feet x 2 with modified independence and rolling walker in order to improve safety and independence with mobility. Start: 07/09/24 Expected End: 07/16/24 Patient will propel the wheelchair for 100 ft and modified independence in order to improve safety and independence with functional mobility. Start: 07/09/24 Expected End: 07/16/24 Transfers Patient will perform bed mobility with modified independence in order to improve independence and prepare for out of bed mobility. Start: 07/09/24 Expected End: 07/16/24 Patient will complete functional transfers with rolling walker with modified independence in order to prepare for ambulation. Start: 07/09/24 Expected End: 07/16/24 Therapy Time Individual Co-treatment Time In 0814 Time Out 0843 Minutes 29 Timed Code Treatment Minutes: 26 Minutes (2 theract) [place] [facility] Images from the original note were not included. OCCUPATIONAL THERAPY [facility] Treatment Note Name/MRN: Ana Lopes ([id number]) Date of : 1945 Age: 79 y.o. Room/Bed: [facility] A Visit #: 1 out of 7 visits Discharge Recommendation: Retirement Facility Equipment Needed: No Prior Level of Function Prior Level of ADL Function: Independent Prior Level of Mobility: Independent; Device: Front wheeled walker and Wheelchair - manual FWW for short distances, W/c for longer distances. Prior Level of Transfers: Independent Assessment Pt in bed upon arrival, agreeable to OT tx. Pt was SBA-min assist for bed-mobility, CGA for STS, CGA for light mobility and CGA for functional transfers. Pt was CGA for LB pericare with increased time to complete. Pt is progressing well OT goals but still remains below baseline. She is limited by increased fatigue, weakness, and instability at this time. She would benefit from skilled OT services to adapt to deficits and increase Occupational Performance. Recommend plan discharge for SNF at this time. Subjective Ok to see for therapy. Pain: Pt denies any current pain. Medical Precautions: No active isolations Proper PPE donned/doffed in accordance with facility standards. Fall Risk: Cherry Fall Risk Score: 70 (High Risk) Precautions/Restrictions: N/A Family/Caregiver Present: none Objective ADLs LE Dressing: Dependent Toileting: Contact Guard Pt was dependent for donning socks d/t limited reach. Pt completed posterior hygiene and anterior in standing with increased time to complete. Bed Mobility Supine to sit: SBA Sit to supine: Min Assist HOB slightly elevated and use of bed-rails. Pt completed supine to sit with increased time to complete. No reports of dizziness with positional changes. Pt returned supine with min assist to elevate BL LE's into bed. Transfers/Mobility Sit to stand: Contact Guard Stand to sit: Contact Guard Stand step: Contact Guard Bedside commode: Contact Guard Standing balance: Contact Guard Functional mobility: Contact Guard Pt completed x2 STS to fww with CGA for steadiness with STS d/t increased fatigue. Pt completed stand step transfer to EOB with heavy reliance of fww and CGA for balance. Pt completed stand pivot transfer with CGA for steadiness and increased time to complete, v/c's for sequencing provided. Pt completed light mobility with CGA and fww. Device(s) used: Front wheeled walker Cognition wfl Plan Continue acute OT per plan of care. Safety/Education Safety Safety Devices in place: All fall risk precautions in place, call light within reach, left in bed, gait belt, patient at risk for falls, and nurse notified Restraints: No Education Education Given To: patient Education Provided: OT Role, Plan of Care, ADL Adaptive Strategies, Transfer Training, Equipment, Fall Prevention Education, Discharge Recommendations, and Benefits of Increasing Activity Education Method: Verbal, Demonstration, and Teach Back Barriers to Learning: None Education Outcome: Continued Education Needed AM-PAC AM-PAC Inpatient Daily Activity Raw Score: 16 ADL Inpatient CMS G-Code Modifier: CK Goals Patient Stated Goal: none stated at this time. Encounter Problems Encounter Problems (Active) Dressing Upper Extremities Patient will complete upper body dressing MOD I (Not Addressed) Start: 07/09/24 Expected End: 07/19/24 Dressings Lower Extremities Patient will dress lower body MOD I (Not Addressed) Start: 07/09/24 Expected End: 07/19/24 Mobility Patient will demonstrate functional mobility with MOD I And FWW (Progressing) Start: 07/09/24 Expected End: 07/19/24 Therapeutic Exercise Pt will demo good participation in BUE exercises to increase endurance and strength for participation in ADL tasks. (Not Addressed) Start: 07/09/24 Expected End: 07/19/24 Toileting Patient will complete toileting tasks at standard toilet with modified independence. (Progressing) Start: 07/09/24 Expected End: 07/19/24 Transfers Patient will complete functional transfer with rolling walker with modified independence in order to prepare for ambulation. (Progressing) Start: 07/09/24 Expected End: 07/19/24 Therapy Time Individual Co-treatment Time In 1257 Time Out 1322 Minutes 25 Timed Code Treatment Minutes: 25 Minutes (1 ADL, 1 ACT) JANAK Ellis/Ankur Cosigned by Mine Mendez OT at 07/11/2024 4:26 PM EST Hospitalist Progress Note 07/11/2024 Subjective: Admit Date: 07/07/2024 PCP: Mayur Young Room#: [id number] A BRIEF HOSPITAL COURSE: Ana is a 79 year old female sent to ED from nursing facility. She was sent in with altered mental status. She was found down. She says she had a seizure but none witnessed or reported. She has some SOB and cough. No cp, n/v, f/c, dizziness Interval History: No overnight issues.She is up to bedside commode. States her breathing feels baseline for her. Appetite is good. Case and plan discussed with patient and bedside nurse. All questions answered. Adult diet Easy to Chew; 5 carb choices (75 gm/meal) 24HR INTAKE/OUTPUT: Intake/Output Summary (Last 24 hours) at 07/11/2024 1206 Last data filed at 07/10/2024 2135 Gross per 24 hour Intake -- Output 1 ml Net -1 ml Past Medical History: Past Medical History: Diagnosis Date Allergic rhinitis Anxiety COPD (chronic obstructive pulmonary disease) ([facility]) Debility Depression Dizziness DM2 (diabetes mellitus, type 2) ([facility]) DVT (deep venous thrombosis) ([facility]) GERD (gastroesophageal reflux disease) Hypercholesteremia Hypertension Lymphedema Migraine headache Morbid obesity ([facility]) ([facility]) Nephrolithiasis status post perc nephrolithotomy MARY (obstructive sleep apnea) Osteoarthrosis Pneumonia Seizures ([facility]) ([facility]) LABS: CBC: Recent Labs 07/09/2441807/10/24 0549 07/11/24 0235 WBC 9.3 8.8 9.1 RBC 3.85 3.91 3.84 HGB 11.6* 11.7 11.6* HCT 36.3 36.8 36.0 MCV 94.3 94.1 93.8 RDW 15.8* 15.8* 15.7* PLT 231 247 264 BMP: Recent Labs 07/09/2441807/10/24 0549 07/11/24 0235 NA 138 139 137 K 3.9 3.9 4.1 CL 107 104 100 CO2 23 28 30 BUN 15 14 21 CREATININE 0.83 0.77 0.74 GLUCOSE 106 120* 124* CALCIUM 8.5* 9.0 9.0 ANIONGAP 8 7 7 LIVER PROFILE: Recent Labs 07/09/24 0419 07/10/24 0549 07/11/24 0235 AST 21 18 19 ALT <6 <6 6 BILITOT 0.5 0.4 0.3 ALKPHOS 77 78 81 PROT 6.5 6.7 6.8 PT/INR: No results for input(s): "PROTIME", "INR" in the last 72 hours. CARDIAC ENZYMES: No results for input(s): "TROPONINI" in the last 72 hours. Procalcitonin: No results found for: "PROCAL" COVID-19 PCR: No results for input(s): "COVID19" in the last 72 hours. Objective: Vitals: BP 105/63 (BP Location: Right arm, Patient Position: Lying) Pulse 85 Temp 36.6 C (97.8 F) (Temporal) Resp 20 Ht 5' 4" (1.626 m) Wt 225 lb (102 kg) SpO2 95% BMI 38.62 kg/m Pulse Ox: SpO2 Av.5 % Min: 93 % Max: 96 % Supplemental O2: O2 Flow Rate (L/min): 2 L/min Physical Exam Vitals and nursing note reviewed. Constitutional: Appearance: Normal appearance. She is obese. HENT: Head: Normocephalic and atraumatic. Nose: Nose normal. Mouth/Throat: Mouth: Mucous membranes are moist. Eyes: Extraocular Movements: Extraocular movements intact. Conjunctiva/sclera: Conjunctivae normal. Pupils: Pupils are equal, round, and reactive to light. Cardiovascular: Rate and Rhythm: Normal rate and regular rhythm. Pulmonary: Effort: Pulmonary effort is normal. Comments: Mild crackles , improved from yesterday Abdominal: General: Bowel sounds are normal. Palpations: Abdomen is soft. Musculoskeletal: General: Normal range of motion. Cervical back: Normal range of motion. Skin: General: Skin is warm and dry. Neurological: General: No focal deficit present. Mental Status: She is alert and oriented to person, place, and time. Psychiatric: Mood and Affect: Mood normal. Behavior: Behavior normal. Thought Content: Thought content normal. Medications: Scheduled PRN aspirin, 81 mg, Oral, Daily atorvastatin, 80 mg, Oral, Daily cetirizine, 5 mg, Oral, Daily enoxaparin, 40 mg, SubCUTAneous, Daily furosemide, 40 mg, IntraVENous, BID [Held by provider] furosemide, 20 mg, Oral, Daily Glycopyrrolate-Formoterol, 2 puff, Inhalation, BID guaiFENesin, 600 mg, Oral, BID influenza, 0.5 mL, IntraMUSCular, Prior to discharge insulin lispro, 0-12 Units, SubCUTAneous, TID WC And insulin lispro, 0-12 Units, SubCUTAneous, Nightly ipratropium-albuterol, 3 mL, Nebulization, TID levETIRAcetam, 750 mg, Oral, BID PRN medications: acetaminophen OR acetaminophen, dextrose, dextrose, glucagon (rDNA), glucose, ondansetron ODT OR ondansetron, polyethylene glycol (PEG) 3350 Continuous Assessment Data: (CAT1) Reviewed 1 notes from different specialty or health system (each=1). (CAT1) Reviewed 2 labs/studies previously ordered by me not previously counted (each=1, panels count as 1). (CAT1) Ordered 2 new labs and/or studies (each=1, panels count as 1). (LOW: 2x CAT1 or independent historian MOD: 3x CAT1 or 1x CAT3 EXTENSIVE: 3x CAT1 and 1x CAT3) Acute, acute on chronic, unstable/uncontrolled chronic problems/diagnoses: Sepsis - resolved Pneumonia ?~no s/s of pna , neg urine antigens , neg respiratory panel , blood cultures negative x 48 hours , pulmonology following , discussed with antibiotic stewardship and discontinued vanc/zosyn today Acute on chronic heart failure - lasix IV 40 mg Bid, cxr is unchanged from previous ~still with pulmonary congestion , repeat cxr today 07/11 was improved. UTI- urine culture positive for >100,000 e coli , sensitivity resulted , no urinary symptoms , will continue to monitor off abx Chronic hypoxemic respiratory failure - remains on 3 liters home setting , hypoxic on RA at 85% T2DM with hyperglycemia - improved, continue SS Dysphagia - speech seeing patient , on easy to chew diet Stable chronic problems affecting care, new non-acute diagnoses: Seizure disorder - no seizures during admission, continue Keppra Class 2 obesity- BMI 38 Pacemaker in situ Plan As a result of the above findings & factors, the following mgmt was pursued: - improved, will discuss urine culture with abx stewardship - am labs, replace lytes prn - PT/OT/CM/SW - delirium precautions: increase activity and limit nighttime disturbances - DVT prophylaxis: enoxaparin and encourage ambulation Complexity: Chronic illness with mild to moderate exacerbation, progression, or side effect of tx (MOD). Risk: Prescription drug/IVF/colloid was initiated, discontinued, adjusted; or reviewed with decision to maintain current orders (MOD). Low risk diagnostic testing or treatment (LOW). Advance Directive: Full Code Anticipated Discharge - Date - 07/12 - Location - Skilled Facility - Pending the following - continues to improved Total time spent (which include face to face and non face to face encounters) : minutes Toxic drug monitoring/narrow therapeutic index drug monitoring : # Drug name : # Route administered : # Method of monitoring : Extended Emergency Contact Information Primary Emergency Contact: Chucky Lopes Mobile Relation: Son Preferred language: Romanian Cops needed? No Secondary Emergency Contact: Divya Hall Relation: Sibling THIAGO Vargsa CNP Division of Hospitalist Medicine [facility] Respiratory Care Department Progress Note Comment or reasoning for refusal: Patient was seen in attempts to fulfill CPAP/BiPAP/AutoPAP order. Patient refused PAP therapy/study at this time. Patient was educated on medical need and reasoning for physician order to ensure patient was making an informed medical decision. All of the patient's questions were answered at this time and patient was informed that if the patient changes their mind regarding wearing PAP to hit their "call light" or inform their nurse to contact Respiratory. A second, consecutive night of refusing PAP therapy/study results in order completion in the EMR. If future CPAP/BiPAP/AutoPAP therapy or study is indicated please place another order in the EMR and the assigned Respiratory Therapist will reattempt to fulfill orders. Reason for refusal: pt states that she tried it last night and it wasn't comfortable. Pt complained about mask not fit/ too tight and no water in PAP. RT offered to add humidity and adjust mask or change it and put some padding for her nose. Pt states "it doesn't matter it's gonna come off anyway". Thank you for involving Respiratory in the care of this patient, Pt chart reviewed and attempted to see for therapy. Pt sleeping upon arrival, states she is too tired to participate in therapy. Unable to encourage. Will continue to follow and attempt as schedule allows. Bettye BRICENO/Ankur Cosigned by Ken Nevarez OT at 07/10/2024 3:11 PM EST Images from the original note were not included. [facility] [place], Pulmonary Medicine [address] [place] [address] Patient - Ana Lopes, Age - 79 y.o. - 1945 Room Number - [id number] A Consulting - Rambo Mcclelland DO Primary Care Physician - Mayur Young Date of Admission - 07/07/2024 2:12 PM Hospital Day - 3 Chief Complaint Ana Lopes is a 79 y.o. female who presented with chief complaint of altered mental status. Pulmonary following for pulmonary edema Hx Seizure disorder (on Keppra), CHB s/p PPM, reported COPD (no PFT, on Anoro), chronic respiratory failure (2-3 liters NC), prior tobacco use, obesity and MARY not currently using PAP therapy. Interval history Patient awake sitting up in bed eating a banana. States her breathing is better today. No chest pain, cough, shortness of breath, nausea, vomiting, fever or chills. On 2 liters NC which is her baseline. No new overnight concerns. A pertinent review of systems was performed and was otherwise non-contributory except as detailed in subjective section above. Objective Vitals: BP 110/56 (BP Location: Left arm, Patient Position: Lying) Pulse 71 Temp 36.3 C (97.4 F) (Temporal) Resp 16 Ht 5' 4" (1.626 m) Wt 225 lb (102 kg) SpO2 96% BMI 38.62 kg/m Pulse Ox: SpO2 Av.2 % Min: 95 % Max: 98 % Supplemental O2: O2 Flow Rate (L/min): 2 L/min I/O 24HR INTAKE/OUTPUT: Intake/Output Summary (Last 24 hours) at 07/10/2024 1426 Last data filed at 07/09/2024 1751 Gross per 24 hour Intake 50 ml Output -- Net 50 ml Exam Physical Exam Vitals and nursing note reviewed. Constitutional: General: She is not in acute distress. Appearance: She is obese. HENT: Head: Normocephalic and atraumatic. Nose: Nose normal. No congestion or rhinorrhea. Eyes: General: No scleral icterus. Conjunctiva/sclera: Conjunctivae normal. Pupils: Pupils are equal, round, and reactive to light. Cardiovascular: Rate and Rhythm: Normal rate and regular rhythm. Pulmonary: Effort: Pulmonary effort is normal. No respiratory distress. Breath sounds: No stridor. Rales present. No wheezing or rhonchi. Chest: Chest wall: No tenderness. Musculoskeletal: Right lower leg: No edema. Left lower leg: No edema. Neurological: General: No focal deficit present. Mental Status: She is alert and oriented to person, place, and time. Mental status is at baseline. Psychiatric: Mood and Affect: Mood normal. Behavior: Behavior normal. Thought Content: Thought content normal. Judgment: Judgment normal. Medications Current Medications aspirin, 81 mg, Oral, Daily atorvastatin, 80 mg, Oral, Daily cetirizine, 5 mg, Oral, Daily enoxaparin, 40 mg, SubCUTAneous, Daily furosemide, 40 mg, IntraVENous, BID [Held by provider] furosemide, 20 mg, Oral, Daily Glycopyrrolate-Formoterol, 2 puff, Inhalation, BID guaiFENesin, 600 mg, Oral, BID influenza, 0.5 mL, IntraMUSCular, Prior to discharge insulin lispro, 0-12 Units, SubCUTAneous, TID WC And insulin lispro, 0-12 Units, SubCUTAneous, Nightly ipratropium-albuterol, 3 mL, Nebulization, TID levETIRAcetam, 750 mg, Oral, BID PRN Mediations PRN medications: acetaminophen OR acetaminophen, dextrose, dextrose, glucagon (rDNA), glucose, ondansetron ODT OR ondansetron, polyethylene glycol (PEG) 3350 Labs CBC Results from last 7 days Lab Units 07/10/24 0549 WBC AUTO 10*3/uL 8.8 HEMOGLOBIN g/dL 11.7 HEMATOCRIT % 36.8 PLATELETS 10*3/uL 247 BMP: Results from last 7 days Lab Units 07/10/24 0549 07/09/24 0419 07/08/24 0515 SODIUM mmol/L 139 138 139 POTASSIUM mmol/L 3.9 3.9 4.1 CHLORIDE mmol/L 104 107 107 CO2 mmol/L 28 23 26 BUN mg/dL 14 15 16 CREATININE mg/dL 0.77 0.83 0.81 GLUCOSE mg/dL 120* 106 127* CALCIUM mg/dL 9.0 8.5* 8.9 LIVER PROFILE Results from last 7 days Lab Units 07/10/24 0549 07/09/24 0419 07/08/24 0515 ALK PHOS U/L 78 77 79 BILIRUBIN TOTAL mg/dL 0.4 0.5 0.6 PROTEIN TOTAL g/dL 6.7 6.5 6.6 ALT U/L <6 <6 <6 AST U/L 18 21 21 Cultures COVID/Flu/RSV: Negative Respiratory pathogens PCR: Negative Urine antigens: Negative Urine culture: + E. Coli, ESBL Blood cultures: NGTD x 48 hours MRSA PCR: negative Radiology CXR 07/10/24: IMPRESSION: Diffuse interstitial edema, unchanged. Cardiomegaly is stable. Interval moderate gastrectasis. CT chest 07/08/24: Impression: Suspected pulmonary edema, superimposed on chronic interstitial changes, scarring/fibrosis. Short-term interval follow-up recommended. Cardiomegaly with cardiac pacemaker. Slightly enlarged main pulmonary artery, which may be seen with pulmonary arterial hypertension Outpatient testing Pulmonary function test 05/22/21: Located under media tab: No overt airflow obstruction. Reduced VC could be secondary to restriction or air trapping. No lung volumes available. Absolute Value % Predicted Z-score FEV1/FVC 93% FEV1 0.94 44 FVC 1.01 36 TLC RV/TLC DLCO Sleep study 04/08/2019: 1. Moderate obstructive sleep apnea. Respiratory events were associated with oxygen desaturations to a parth of 86.0%. This apnea-hypopnea index (AHI) may be underestimated due to the absence of recorded REM sleep in the baseline portion of the study. 2. At a Bilevel PAP setting of 16/11 cmH2O, during which sleep was recorded in the supine position, the overall apnea-hypopnea index (AHI) was normalized, snoring was eliminated, and oxygen saturation was maintained above 90%. HOWEVER, during this study, the REM related apnea-hypopnea index was not normalized and remained in the severe range on pressure settings as high as 14/9 cmH2O. 3. Abnormal sleep architecture likely due to respiratory events, PAP titration, and first night effect. RECOMMENDATIONS: Due to persistent REM related respiratory events during this study, recommend the following: Auto Bilevel PAP with max IPAP 24 cmH2O, min EPAP 11 cmH2O, and pressure support of 3-5 cmH2O, with humidification. Recommend close clinical follow up as well as PAP data download after 4 weeks of PAP use to determine if changes to the PAP settings are necessary. A standard size ResMed AirFit N10 nasal mask without chin strap was used during this study. Active Hospital Problem List Patient Active Problem List Diagnosis Morbid obesity ([facility]) Seizures ([facility]) Dizziness DM2 (diabetes mellitus, type 2) ([facility]) Debility Fungal skin infection Hypertension Hypercholesteremia Lymphedema Nephrolithiasis Osteoarthrosis Migraine headache Anxiety Depression MARY (obstructive sleep apnea) COPD (chronic obstructive pulmonary disease) ([facility]) GERD (gastroesophageal reflux disease) Allergic rhinitis Pneumonia due to infectious organism, unspecified laterality, unspecified part of lung Assessment Chronic hypoxic respiratory failure Acute on chronic HFrEF (EF 45%) Pulmonary edema Likely underlying chronic ILD/ fibrotic changes CHB s/p PPM Seizure disorder, on Keppra MARY, not on PAP therapy Prior remote tobacco use Obesity, class II Recommendations CT chest concerning for pulmonary edema with superimposed chronic interstitial changes. Viral testing, urine antigens and MRSA PCR negative. Patient unable to provide sputum culture. Procal 0.02. Completed 3 days of Zosyn and Vancomycin. Antibiotics discontinued today per ID stewardship recommendations. Follow up CXR today with pulmonary congestion similar to previous imaging. Agree with continuing IV diuresis Echocardiogram EF 45%, indeterminate diastolic function due to poor image quality, Mild AVR, Mild to moderate MVR, RVSP 26 mm Hg. Bevespi and scheduled DuoNeb's. Can resume Anoro at discharge. Prior spirometry with no overt airflow obstruction. She does have remote smoking history. Keppra level pending. Dose was increased back to her previously prescribed dose of [address] Mckeon per patient request. Stable on baseline 3 liters NC. Maintain SpO2 > or = 92% Prior sleep study with moderate MARY. Recommended AutoBiPAP (24-11 cm H2O with pressure support 5 cm H2O). Will place orders on DEBRA so PAP can be arranged for use while at SNF Recommend follow up CT chest in 6-8 weeks. Advance Directive: Full Code Discharge planning: anticipate discharge to SNF in next 24-48 hours as respiratory status improving. Hospital follow up scheduled on 07/28/24 with Vonnie Love APRN Patient will not be seen by Pulmonary over the weekend. Please notify Dr. Mckeon with any urgent needs. Case discussed with nurse and patient Questions and concerns addressed. I have discussed the patient's case and plan of care with my collaborating physician Dr. Mckeon [facility] Respiratory Care Department Progress Note As part of the Respiratory Assessment Program (RAP), the following Respiratory Therapist evaluation has been completed, including a chart review and clinical/physical assessment. Respiratory Therapist RAP Evaluation Guideline Points 0 1 2 3 4 Points Strongly Consider History Factor No Pulmonary conditions Stable Pulmonary condition(s) Surgery or Intervention that may impact Pulmonary system (at risk) Surgery or Intervention that is impacting Pulmonary system Active Exacerbation of Pulmonary Condition 1 Respiratory Pattern Regular, RR= 12-18 POZO or Increased RR= 19-24 Irregular, or RR= 25-30 SOB, talk in short sentences, or RR= 31-35 Severe SOB, accessory muscle use, one word answers, or RR>35 0 Aerosol Med(s), High Flow O2 Breath Sounds Clear Diminished in 1 lobe Diminished in <= 2 lobes Adventitious breath sounds Coarse crackles, Wheezes, or Diminished in >2 lobes 2 Aerosol Med(s), Bronchial Hygiene, Hyperinflation Cough & Sputum Strong cough, no secretion retention or production Weak cough, no secretion retention or production Weak cough, w/ production (less often than Q2hr), or secretion retention No cough, w/ secretion retention or production (less often than Q2hr) Significant secretion production (more often than Q2hr) or mucus plug 0 Aerosol Med(s), Bronchial Hygiene, Hyperinflation Level of Activity Ambulatory Ambulatory with Assist Up in chair or edge of bed (dangle) Non-ambulatory, bedridden with active ROM Completely paralyzed or without active ROM 0 Triage 5 0-2 Triage 4 3-5 Triage 3 6-10 Triage 2 11-14 Triage 1 >=15 Total 3 Triage Score = 4 TRIAGE SCORING - SUGGESTED FREQUENCIES Aerosol Therapy Bronchial Hygiene Hyperinflation Triage Score Q4h & PRN 1 Q4hWA (QID) & PRN 2 TID & PRN 3 BID & PRN 4 PRN 5 Therapy(s) Indicated Yes/No Aerosol Medication Hyperinflation Bronchial Hygiene High Flow Oxygen Flow Rates PEF (L/Sec) IVC FVC FEV1 FEV1/FVC Patient instructed and returned demonstration on use of MDI (with spacer, as appropriate) None RT to enter/modify frequency of treatment order in EMR/EHR to match this RAP evaluation. Based on this RAP evaluation the following therapy is being initiated: duoneb At the following frequency: TID Comments: Thank you for involving Respiratory in the care of this patient, Images from the original note were not included. Speech-Language Pathology SPEECH LANGUAGE PATHOLOGY [facility] Dysphagia Treatment Note Patient Name: Ana Lopes Evaluation Date: 07/10/2024 Date of : 1945 Admission Date: 07/07/2024 2:12 PM Age: 79 y.o. Room/Bed: [facility] A Subjective Patient was sleeping and woke easily; some hard of hearing. Seen upright in bed, after repositioning. Answers all basic questions with clear vocal quality. Follows all basic commands. No visitors at bedside. Spoke with BLANCA Whitlock who cleared pt for treatment. Current Diet: Dietary Orders (From admission, onward) Start Ordered 07/10/24 0912 Adult diet Easy to Chew; 5 carb choices (75 gm/meal) Diet effective now Comments: Ground meats Question Answer Comment Diet type Easy to Chew Carbohydrate restriction: 5 carb choices (75 gm/meal) 07/10/24 0911 Aspiration Precautions: - Upright positioning for all PO intake - Slow rate of intake - Small bites/sips - Alternate solid and liquids - Consistent mouth care Oxygen: Oxygen Therapy: Supplemental oxygen O2 Delivery Method: Nasal cannula O2 Flow Rate (L/min): 2 L/min I don't eat eggs Pain: Pt denies any current pain. PPE Worn: surgical mask, gloves Objective & Assessment Dysphagia Treatment Dysphagia Activity 1: Assess tolerance of recommended diet and advanced diet trials. Pt with continue c/o not getting noodles in her chicken noodle soup. Seen with breakfast tray. Would not trial eggs. Dislike for same, especially after emesis before. Only like fried egg. Pt with good oral control and oral transit of oatmeal. More cracker require some additional manipulation. Overtly functional control and oral transit. Feel pt would be appropriate for soft bread items, however would continue to have difficulty with meats d/t edentulous status. Spoke with physician re: advancement and diet was modified to Easy to chew and will trial ground meats. This will increased food choices and ability to have mixed textures. Plan & Recommendations Plan: Assess advanced diet textures prandially. Recommend Easy to chew solids with ground (?chopped) meats and Thin liquids and meds as tolerated and the following precautions: - Upright positioning for all PO intake - Small bites/sips - Alternate solid and liquids as needed - Consistent mouth care D/C Recommendations: No follow up therapy recommended post discharge Education Education Given: swallowing strategies, diet recommendations Given To: patient Response: demonstrated understanding Goals Patient Stated Goal: "To have hot chocolate" Encounter Problems Encounter Problems (Active) Swallowing Patient will tolerate the least restrictive diet consistency to allow for safe consumption of daily meals (Progressing) Start: 07/08/24 Expected End: 07/22/24 Patient will demonstrate safe swallowing Intervention/techniques (Progressing) Start: 07/08/24 Expected End: 07/22/24 Therapy Time SENIOR RADIATION THERAPIST Individual Minutes Time In: 0839 Time Out: 0856 Minutes: 17 VALERIANO Torres Hospitalist Progress Note 07/10/2024 Subjective: Admit Date: 07/07/2024 PCP: Mayur Young Room#: [id number] A BRIEF HOSPITAL COURSE: Ana is a 79 year old female sent to ED from nursing facility. She was sent in with altered mental status. She was found down. She says she had a seizure but none witnessed or reported. She has some SOB and cough. No cp, n/v, f/c, dizziness Interval History: No overnight issues. Case and plan discussed with patient and bedside nurse. All questions answered. Adult diet Dysphagia - Soft and Bite Sized; 5 carb choices (75 gm/meal) 24HR INTAKE/OUTPUT: Intake/Output Summary (Last 24 hours) at 07/10/2024 0907 Last data filed at 07/09/2024 1751 Gross per 24 hour Intake 50 ml Output -- Net 50 ml Past Medical History: Past Medical History: Diagnosis Date Allergic rhinitis Anxiety COPD (chronic obstructive pulmonary disease) ([facility]) Debility Depression Dizziness DM2 (diabetes mellitus, type 2) ([facility]) DVT (deep venous thrombosis) ([facility]) GERD (gastroesophageal reflux disease) Hypercholesteremia Hypertension Lymphedema Migraine headache Morbid obesity ([facility]) ([facility]) Nephrolithiasis status post perc nephrolithotomy MARY (obstructive sleep apnea) Osteoarthrosis Pneumonia Seizures ([facility]) ([facility]) LABS: CBC: Recent Labs 07/08/24 0515 07/09/24 0419 07/10/24 0549 WBC 9.1 9.3 8.8 RBC 4.19 3.85 3.91 HGB 12.4 11.6* 11.7 HCT 39.2 36.3 36.8 MCV 93.6 94.3 94.1 RDW 15.7* 15.8* 15.8* PLT 277 231 247 BMP: Recent Labs 07/08/24 0515 07/09/24 0419 07/10/24 0549 NA 139 138 139 K 4.1 3.9 3.9 CL 107 107 104 CO2 26 23 28 BUN 16 15 14 CREATININE 0.81 0.83 0.77 GLUCOSE 127* 106 120* CALCIUM 8.9 8.5* 9.0 ANIONGAP 6 8 7 LIVER PROFILE: Recent Labs 07/08/24 0515 07/09/24 0419 07/10/24 0549 AST 21 21 18 ALT <6 <6 <6 BILITOT 0.6 0.5 0.4 ALKPHOS 79 77 78 PROT 6.6 6.5 6.7 PT/INR: No results for input(s): "PROTIME", "INR" in the last 72 hours. CARDIAC ENZYMES: No results for input(s): "TROPONINI" in the last 72 hours. Procalcitonin: Lab Results Component Value Date PROCAL 0.02 07/08/2024 COVID-19 PCR: No results for input(s): "COVID19" in the last 72 hours. Objective: Vitals: BP 110/56 (BP Location: Left arm, Patient Position: Lying) Pulse 81 Temp 36.3 C (97.4 F) (Temporal) Resp 14 Ht 5' 4" (1.626 m) Wt 225 lb (102 kg) SpO2 96% BMI 38.62 kg/m Pulse Ox: SpO2 Av.7 % Min: 95 % Max: 99 % Supplemental O2: O2 Flow Rate (L/min): 2 L/min Physical Exam Vitals and nursing note reviewed. Constitutional: Appearance: Normal appearance. She is obese. HENT: Head: Normocephalic and atraumatic. Nose: Nose normal. Mouth/Throat: Mouth: Mucous membranes are moist. Eyes: Extraocular Movements: Extraocular movements intact. Conjunctiva/sclera: Conjunctivae normal. Pupils: Pupils are equal, round, and reactive to light. Cardiovascular: Rate and Rhythm: Normal rate and regular rhythm. Pulmonary: Effort: Pulmonary effort is normal. Breath sounds: Rales present. Abdominal: General: Bowel sounds are normal. Palpations: Abdomen is soft. Musculoskeletal: General: Normal range of motion. Cervical back: Normal range of motion. Skin: General: Skin is warm and dry. Neurological: General: No focal deficit present. Mental Status: She is alert and oriented to person, place, and time. Psychiatric: Mood and Affect: Mood normal. Behavior: Behavior normal. Thought Content: Thought content normal. Medications: Scheduled PRN aspirin, 81 mg, Oral, Daily atorvastatin, 80 mg, Oral, Daily cetirizine, 5 mg, Oral, Daily enoxaparin, 40 mg, SubCUTAneous, Daily furosemide, 20 mg, Oral, Daily Glycopyrrolate-Formoterol, 2 puff, Inhalation, BID guaiFENesin, 600 mg, Oral, BID influenza, 0.5 mL, IntraMUSCular, Prior to discharge insulin lispro, 0-12 Units, SubCUTAneous, TID WC And insulin lispro, 0-12 Units, SubCUTAneous, Nightly ipratropium-albuterol, 3 mL, Nebulization, 4x daily levETIRAcetam, 750 mg, Oral, BID piperacillin-tazobactam, 3,375 mg, IntraVENous, q8h vancomycin, 1,250 mg, IntraVENous, q24h PRN medications: acetaminophen OR acetaminophen, dextrose, dextrose, glucagon (rDNA), glucose, ondansetron ODT OR ondansetron, polyethylene glycol (PEG) 3350 Continuous Assessment Data: (CAT1) Reviewed 2 notes from different specialty or health system (each=1). (CAT1) Reviewed 2 labs/studies previously ordered by me not previously counted (each=1, panels count as 1). (CAT1) Ordered 2 new labs and/or studies (each=1, panels count as 1). (LOW: 2x CAT1 or independent historian MOD: 3x CAT1 or 1x CAT3 EXTENSIVE: 3x CAT1 and 1x CAT3) Acute, acute on chronic, unstable/uncontrolled chronic problems/diagnoses: Sepsis - resolved Pneumonia ?~no s/s of pna , neg urine antigens , neg respiratory panel , blood cultures negative x 48 hours , pulmonology following , discussed with antibiotic stewardship and discontinued vanc/zosyn today Acute on chronic heart failure - lasix IV 40 mg Bid, cxr is unchanged from previous ~still with pulmonary congestion UTI- urine culture positive for >100,000 e coli , sensitivity still pending , no urinary symptoms Chronic hypoxemic respiratory failure - remains on 3 liters home setting , hypoxic on RA at 85% T2DM with hyperglycemia - improved, continue SS Dysphagia - speech seeing patient , on easy to chew diet Stable chronic problems affecting care, new non-acute diagnoses: Seizure disorder - no seizures during admission, continue Keppra Class 2 obesity- BMI 38 Pacemaker in situ Plan As a result of the above findings & factors, the following mgmt was pursued: - patient with mild heart failure, no s/s of pneumonia at this time, on IV lasix 40 mg BID - am labs, replace lytes prn - PT/OT/CM/SW - delirium precautions: increase activity and limit nighttime disturbances - DVT prophylaxis: enoxaparin and encourage ambulation Complexity: Chronic illness with mild to moderate exacerbation, progression, or side effect of tx (MOD). Risk: Prescription drug/IVF/colloid was initiated, discontinued, adjusted; or reviewed with decision to maintain current orders (MOD). Low risk diagnostic testing or treatment (LOW). Advance Directive: Full Code Anticipated Discharge - Date - likely over the next 48 hours - Location - Skilled Facility - Pending the following - clinical improvement Total time spent (which include face to face and non face to face encounters) : minutes Toxic drug monitoring/narrow therapeutic index drug monitoring : # Drug name : # Route administered : # Method of monitoring : Extended Emergency Contact Information Primary Emergency Contact: Chucky Lopes Mobile Relation: Son Preferred language: Romanian Cops needed? No Secondary Emergency Contact: Divya Hall Relation: Sibling THIAGO Vargas CNP Division of Hospitalist Medicine [facility] Respiratory Care Department Progress Note Comment or reasoning for refusal: Patient was seen in attempts to fulfill CPAP/BiPAP/AutoPAP order. Patient refused PAP therapy/study at this time. Patient was educated on medical need and reasoning for physician order to ensure patient was making an informed medical decision. All of the patient's questions were answered at this time and patient was informed that if the patient changes their mind regarding wearing PAP to hit their "call light" or inform their nurse to contact Respiratory. A second, consecutive night of refusing PAP therapy/study results in order completion in the EMR. If future CPAP/BiPAP/AutoPAP therapy or study is indicated please place another order in the EMR and the assigned Respiratory Therapist will reattempt to fulfill orders. Reason for refusal: doesnt want tonight Thank you for involving Respiratory in the care of this patient, Images from the original note were not included. Speech-Language Pathology SPEECH LANGUAGE PATHOLOGY [facility] Dysphagia Treatment Note Patient Name: Ana Lopes Evaluation Date: 07/09/2024 Date of : 1945 Admission Date: 07/07/2024 2:12 PM Age: 79 y.o. Room/Bed: 35/35 Subjective Patient alert and cooperative. Seen upright in bed. No visitors at bedside. Pt is hard of hearing. I don't like the liquid diet that they are giving me" Pain: Pt denies any current pain. PPE Worn: gloves Objective & Assessment Dysphagia Treatment # of Activities: 1 Dysphagia Activity 1: Assess tolerance of recommended diet and advanced diet trials. Pt with limited mastication d/t edentulous status. Pt is suspected to be on soft foods with ground meats per her description. She ordered chicken noodle soup for lunch and only got broth d/t soft and bite sized diet will not allow mixed textures. Pt taking bites of more cracker with very slow mastication using her gums. Pt is able to gum the soft foods. Will suggest soft easy to chew diet and chop her meats fine. Pt is able to cut up into smaller bites as needed. Foods just need cooked soft for ease of preparation. Plan & Recommendations Plan: RECOMMEND advanced diet to EASY TO CHEW with chopped meat, cook foods soft. (Add chopped meats in comments) - Upright positioning for all PO intake - Slow rate of intake - Small bites/sips - Alternate solid and liquids - Consistent mouth care D/C Recommendations: No follow up therapy recommended post discharge Education Education Given: diet recommendations Given To: patient Response: demonstrated understanding Goals Patient Stated Goal: "To get something other than liquids" Encounter Problems Encounter Problems (Active) Swallowing Patient will tolerate the least restrictive diet consistency to allow for safe consumption of daily meals (Progressing) Start: 07/08/24 Expected End: 07/22/24 Patient will demonstrate safe swallowing Intervention/techniques (Progressing) Start: 07/08/24 Expected End: 07/22/24 Therapy Time VALERIANO Torres Images from the original note were not included. OCCUPATIONAL THERAPY [facility] Initial Evaluation Name/MRN: Ana Lopes ([id number]) Evaluation Date: 07/09/2024 Date of : 1945 Admission Date: 07/07/2024 2:12 PM Age: 79 y.o. Room/Bed: 35/35 Discharge Recommendation: Retirement Facility Equipment Needed: No Assessment IMPRESSION: Pt in 07/07/24 with c/o AMS, falls, potential seizure, and pneumonia. She was previously IND for ADLs, functional transfers / mobility with a FWW per pt report. She is currently contact-guard to min assist for functional transfers/mobility, max assist for lower body ADLs, and standby assist for seated upper body ADLs. No true loss of balance noted during out of activity at this time however increased instability with mild bilateral lower extremity buckling noted this date. She is limited by increased fatigue, weakness, and instability at this time. She would benefit from skilled OT services to address the below. Recommend plan discharge for SNF at this time. Admitting Diagnosis: Falls, potential seizure, AMS, pneumonia Performance Deficits /Impairments: Decreased Functional Mobility, Decreased ADL status, Decreased Strength, Decreased Endurance, Decreased Balance, and Decreased High Level IADLs Prognosis: Good Decision Making: Medium Complexity Subjective Pleasant and cooperative. Okay to see per RN. Agreeable to therapy evaluation. Pain: Pt denies any current pain. Past Medical History: Past Medical History: Diagnosis Date Allergic rhinitis Anxiety COPD (chronic obstructive pulmonary disease) ([facility]) Debility Depression Dizziness DM2 (diabetes mellitus, type 2) ([facility]) DVT (deep venous thrombosis) ([facility]) GERD (gastroesophageal reflux disease) Hypercholesteremia Hypertension Lymphedema Migraine headache Morbid obesity ([facility]) ([facility]) Nephrolithiasis status post perc nephrolithotomy MARY (obstructive sleep apnea) Osteoarthrosis Pneumonia Seizures ([facility]) ([facility]) Past Surgical History: Past Surgical History: Procedure Laterality Date CHOLECYSTECTOMY 1991 EYE SURGERY 2005 orbital I and D KIDNEY STONE SURGERY 2011 right then left nephrolithotomy TONSILLECTOMY (HISTORICAL) Admission Diagnosis: Patient Active Problem List Diagnosis Date Noted Pneumonia due to infectious organism, unspecified laterality, unspecified part of lung 07/07/2024 Fungal skin infection 06/07/2015 Morbid obesity ([facility]) 03/04/2015 Seizures ([facility]) 03/04/2015 Dizziness 03/04/2015 DM2 (diabetes mellitus, type 2) ([facility]) 03/04/2015 Debility 03/04/2015 Hypertension 03/04/2015 Hypercholesteremia 03/04/2015 Lymphedema 03/04/2015 Nephrolithiasis 03/04/2015 Osteoarthrosis 03/04/2015 Migraine headache 03/04/2015 Anxiety 03/04/2015 Depression 03/04/2015 MARY (obstructive sleep apnea) 03/04/2015 COPD (chronic obstructive pulmonary disease) ([facility]) 03/04/2015 GERD (gastroesophageal reflux disease) 03/04/2015 Allergic rhinitis 03/04/2015 Medical Precautions: Droplet Proper PPE donned/doffed in accordance with facility standards. Fall Risk: Cherry Fall Risk Score: 75 (High Risk) Precautions/Restrictions: N/A Family/Caregiver Present: none Overall Cognitive Status: WFL Overall Orientation Status: Oriented x4 Social/Functional History Patient admitted from [facility] . Pt reports she has been there for 6 months and is going to soon be transitioning to Assisted Living at [facility]. Assistive Equipment: front wheeled walker and wheelchair - manual Prior Level of Function Prior Level of ADL Function: Independent Prior Level of Mobility: Independent; Device: Front wheeled walker and Wheelchair - manual FWW for short distances, W/c for longer distances. Prior Level of Transfers: Independent Objective ADLs Toileting: Max Assist Patient up on bedside commode upon arrival this date. Patient required max assist overall for toileting tasks at bedside commode level. Patient requires increased assist for MARIN care and clothing management this time. Heavy reliance on front wheel walker and bedside commode rails for stability and safety during static standing task. She fatigues quickly with out of bed activity and requires return to sitting for safety and activity tolerance. Respiratory therapy in room for breathing treatment following return to bed after toileting. Upper Extremity Assessment AROM: Exceptions: ~ 90 BUE shoulder flexion functionally observed PROM: Not assessed this session Strength: Exceptions: > +3/5 grossly observed with functional activity. Vision: not assessed this session Hearing: normal Bed Mobility Sit to supine: Mod Assist Scooting: Mod Assist Head of bed elevated. Denies distal positional changes. Patient up on bedside commode upon arrival. Mod assist overall for bilateral lower extremity management for return to supine. Increased reliance on bed rails this date. Transfers/Functional Mobility Sit to stand: Contact Guard Stand to sit: Contact Guard Bedside commode: Contact Guard Functional mobility: Min Assist Patient completed to stand transfer from bedside commode to front wheel walker with contact-guard assist overall. Good hand placement noted for proper push up from/reach back for seated surfaces with good bilateral lower extremity management noted for proper base support. Denies dizziness or positional changes at this time. Increased fatigue noted with completion with heavy reliance on front wheel walker once in standing. Good hand placement noted at device. She was able to complete short mobility from bedside commode to edge of bed with min assist overall for stability. No true loss of balance throughout however mild bilateral lower extremity buckling noted at this time. Patient grossly able to assist with self-correcting however min assist required to maintain upright posture. Device(s) used: Front wheeled walker AM-PAC AM-PAC Inpatient Daily Activity Raw Score: 16 ADL Inpatient CMS G-Code Modifier: CK Plan Pt would benefit from skilled acute OT services to address Strengthening, Balance Training, Self-Care/ADL Training, Functional Mobility Training, Endurance Training, Safety Education and Training, Equipment Evaluation/Education, and Patient/Caregiver Training. Frequency: 7 visits during current hospital admission or until additional recommendations are made Barriers: Impaired balance, Lower extremity weakness, Upper extremity weakness, Decreased endurance, Limited safety awareness, and Limited participation Safety/Education Safety Safety Devices in place: All fall risk precautions in place, call light within reach, left in bed, gait belt, patient at risk for falls, nurse notified, and no alarms engaged upon entry Restraints: No Education Education Given To: patient Education Provided: OT Role, Plan of Care, ADL Adaptive Strategies, Transfer Training, Equipment, Fall Prevention Education, Discharge Recommendations, and Benefits of Increasing Activity Education Method: Verbal, Demonstration, and Teach Back Barriers to Learning: None Education Outcome: Verbalized Understanding and Demonstrated Understanding Goals Patient Stated Goal: none stated at this time. Encounter Problems Encounter Problems (Active) Dressing Upper Extremities Patient will complete upper body dressing MOD I Start: 07/09/24 Expected End: 07/19/24 Dressings Lower Extremities Patient will dress lower body MOD I Start: 07/09/24 Expected End: 07/19/24 Mobility Patient will demonstrate functional mobility with MOD I And FWW Start: 07/09/24 Expected End: 07/19/24 Therapeutic Exercise Pt will demo good participation in BUE exercises to increase endurance and strength for participation in ADL tasks. Start: 07/09/24 Expected End: 07/19/24 Toileting Patient will complete toileting tasks at standard toilet with modified independence. Start: 07/09/24 Expected End: 07/19/24 Transfers Patient will complete functional transfer with rolling walker with modified independence in order to prepare for ambulation. Start: 07/09/24 Expected End: 07/19/24 Therapy Time Individual Co-Treatment Co-Evaluation Time In 09 Time Out 0941 Minutes 15 Ken Nevarez OT Patient's Occupational Therapy Plan of Care supervision is transferred to a [facility] Therapy Services Occupational Therapist. Goals and/or treatment plan was established in collaboration with patient/family/other representatives. Images from the original note were not included. PHYSICAL THERAPY [facility] Initial Evaluation Name/MRN: Ana Lopes ([id number]) Evaluation Date: 07/09/2024 Date of : 1945 Admission Date: 07/07/2024 2:12 PM Age: 79 y.o. Room/Bed: 35/35 Discharge Recommendation: Retirement Facility Other: TBD at next [facility] Assessment IMPRESSION: Pt presents with decreased functional mobility, decreased strength, decreased safety awareness, decreased endurance and impaired balance. Pt has decreased standing balance, poor activity tolerance, decreased safety awareness and weakness requiring physical assist of 1 person in order to safely complete minimal OOB mobility placing her at a high risk of falling. Pt could benefit from skilled PT in order to address her decreased functional mobility, strength, balance and safety. Pt has medical history as listed below that that contributes to her clinical presentation. At baseline patient is functionally independent with transfers and short distance ambulation with FWW, uses wheelchair for longer distances. Currently patient is unsafe to return to her prior level of independence secondary to her increased need for assist and fall risks with mobility. Admitting Diagnosis: Pt admitted with altered mental status, fall, SOB, cough, possible seizure, chronic hypoxemic respiratory failure, acute on chronic HFpEF and pulmonary edema. Prognosis: good Performance Deficits /Impairments: Increased Pain, Decreased Functional Mobility, Decreased ADL status, Decreased Strength, Decreased Safety Awareness, Decreased Endurance, and Decreased Balance Decision Making: Medium Complexity Subjective Patient pleasant and agreeable to therapy session this date. Per RN patient okay for therapy. Observation: ED tele and O2 monitoring; incontinent of urine, O2 intact Pain: Lott-Sibley Pain Ratin = Hurts little more Pain Location: R LE Past Medical History: Past Medical History: Diagnosis Date Allergic rhinitis Anxiety COPD (chronic obstructive pulmonary disease) ([facility]) Debility Depression Dizziness DM2 (diabetes mellitus, type 2) ([facility]) DVT (deep venous thrombosis) ([facility]) GERD (gastroesophageal reflux disease) Hypercholesteremia Hypertension Lymphedema Migraine headache Morbid obesity ([facility]) ([facility]) Nephrolithiasis status post perc nephrolithotomy MARY (obstructive sleep apnea) Osteoarthrosis Pneumonia Seizures ([facility]) ([facility]) Past Surgical History: Past Surgical History: Procedure Laterality Date CHOLECYSTECTOMY 1991 EYE SURGERY 2005 orbital I and D KIDNEY STONE SURGERY 2011 right then left nephrolithotomy TONSILLECTOMY (HISTORICAL) Admission Diagnosis: Patient Active Problem List Diagnosis Date Noted Pneumonia due to infectious organism, unspecified laterality, unspecified part of lung 07/07/2024 Fungal skin infection 06/07/2015 Morbid obesity ([facility]) 03/04/2015 Seizures ([facility]) 03/04/2015 Dizziness 03/04/2015 DM2 (diabetes mellitus, type 2) ([facility]) 03/04/2015 Debility 03/04/2015 Hypertension 03/04/2015 Hypercholesteremia 03/04/2015 Lymphedema 03/04/2015 Nephrolithiasis 03/04/2015 Osteoarthrosis 03/04/2015 Migraine headache 03/04/2015 Anxiety 03/04/2015 Depression 03/04/2015 MARY (obstructive sleep apnea) 03/04/2015 COPD (chronic obstructive pulmonary disease) ([facility]) 03/04/2015 GERD (gastroesophageal reflux disease) 03/04/2015 Allergic rhinitis 03/04/2015 Medical Precautions: Droplet Proper PPE donned/doffed in accordance with facility standards. Fall Risk: Cherry Fall Risk Score: 75 (High Risk) Precautions/Restrictions: N/A Family/Caregiver Present: none Overall Cognitive Status: WFL Overall Orientation Status: Oriented x4 Vision: no visual deficits Hearing: normal Social/Functional History Patient admitted from [facility] . Pt reports she has been there for 6 months and is going to soon be transitioning to Assisted Living at [facility]. Assistive Equipment: front wheeled walker and wheelchair - manual Prior Level of Function Prior Level of ADL Function: Independent Prior Level of Mobility: Independent; Device: Front wheeled walker and Wheelchair - manual FWW for short distances, wheelchair for longer distances OOR Prior Level of Transfers: Independent Objective Lower Extremity Assessment AROM: WFL Strength: Pt demonstrates appropriate B LE and quad strength in order to safely participate in OOB mobility, generalized weakness noted Bed Mobility: Supine to sit: SBA Sit to supine: NT patient on BSC end of session Scooting: SBA Denies dizziness with positional changes. Increased time to complete with use of bed rails. Transfers Sit to stand: Contact Guard, to FWW from EOB Stand to sit: Contact Guard Denies dizziness on initial stance. Increased time to complete transitions and cues for hand placement on ascent. Ambulation Ambulation 1 Assistive device(s) used: Front wheeled walker Assist level: Min Assist Distance (ft): 5 ft x 1 Quality of gait: antalgic, reciprocal stepping, B foot clearance, uneven step length, slow trisha, flexed posture Pt demonstrates instability with FWW and need for 1 person assist at this time. Pt with antalgic stepping and c/o R LE pain with stepping. Cues for posture and proximity to FWW to improve safety. Outcome Measures AM-PAC How much HELP from another person do you currently need Turning from your back to your side while in a flat bed without using bedrails?: A Little Moving from lying on your back to sitting on the side of a flat bed without using bedrails?: A Little Moving to and from a bed to a chair (including a wheelchair)?: A Little Standing up from a chair using your arms (wheelchair or bedside chair)?: A Little Walking in a hospital room?: A Little Stair climbing assessed?: No AM-PAC Inpatient Mobility Raw Score (No Stairs) : 15 Plan Pt would benefit from skilled acute PT services to address Strengthening, Gait Training, Balance Training, Self-Care/ADL Training, Functional Mobility Training, Endurance Training, Safety Education and Training, Pain Management, Equipment Evaluation/Education, Neuromuscular Re-Education Training, Home Management Training, Patient/Caregiver Training, and Wheelchair Mobility Training. Frequency: 7 visits Barriers: Pain, Impaired balance, and Decreased endurance Safety/Education Safety Safety Devices in place: All fall risk precautions in place, call light within reach, left in chair, gait belt, patient at risk for falls, nurse notified, no alarms engaged upon entry, and left on BSC in care of OTR Restraints: N/A Education Education Given To: patient Education Provided: PT Role, PT Goals, Gait Training, Plan of Care, Transfer Training, Equipment, Fall Prevention Education, Discharge Recommendations, and Benefits of Increasing Activity Education Method: Verbal, Demonstration, and Teach Back Barriers to Learning: None Education Outcome: Verbalized Understanding, Demonstrated Understanding, and Continued Education Needed Goals Patient Stated Goal: Patient states she wants to stop falling. Encounter Problems Encounter Problems (Active) Balance Patient will maintain dynamic standing balance for 5 minutes with modified independence in order to demonstrate decreased risk of falling. Start: 07/09/24 Expected End: 07/16/24 Exercise Patient will complete lower extremity exercises for 1-2 sets / 10 reps in order to improve strength and activity tolerance for mobility. Start: 07/09/24 Expected End: 07/16/24 Mobility Patient will ambulate 25 feet x 2 with modified independence and rolling walker in order to improve safety and independence with mobility. Start: 07/09/24 Expected End: 07/16/24 Patient will propel the wheelchair for 100 ft and modified independence in order to improve safety and independence with functional mobility. Start: 07/09/24 Expected End: 07/16/24 Transfers Patient will perform bed mobility with modified independence in order to improve independence and prepare for out of bed mobility. Start: 07/09/24 Expected End: 07/16/24 Patient will complete functional transfers with rolling walker with modified independence in order to prepare for ambulation. Start: 07/09/24 Expected End: 07/16/24 Therapy Time Individual Co-Treatment Co-Evaluation Time In 0916 Time Out 0926 Minutes 10 Mica Castillo PT Patient's Physical Therapy Plan of Care supervision is transferred to a [facility] Therapy Services Physical Therapist. Goals and/or treatment plan was established in collaboration with patient/family/other representatives. Images from the original note were not included. [facility] Pulmonary Medicine [address] [place] [id number] Patient - Ana Lopes, Age - 79 y.o. - 1945 Room Number - 35/35 Consulting - Rambo Mcclelland DO Primary Care Physician - Mayur Hector Date of Admission - 07/07/2024 2:12 PM Hospital Day - 2 Chief Complaint: shortness of breath Ana Lopes is a 79 y.o. female who pulmonary is following for pulmonary edema Interval History Patient doing well this morning. Saturating well on home 3 LPM O2. She desaturated to 85% when off oxygen. She feels mildly improved compared to yesterday, still has some cough, non-productive. She is hemodynamically stable and in no acute distress. All other systems reviewed and negative unless otherwise stated in HPI. Objective Vitals: BP 96/50 Pulse 87 Temp 36.4 C (97.6 F) (Temporal) Resp 15 Ht 5' 4" (1.626 m) Wt 225 lb 5 oz (102 kg) SpO2 99% BMI 38.67 kg/m Pulse Ox: SpO2 Av.2 % Min: 95 % Max: 100 % Supplemental O2: O2 Flow Rate (L/min): 3 L/min I/O 24HR INTAKE/OUTPUT: Intake/Output Summary (Last 24 hours) at 07/09/2024 0907 Last data filed at 07/08/2024 1338 Gross per 24 hour Intake 50 ml Output -- Net 50 ml Exam General appearance: Awake, alert, no acute distress. On 3 liters/min NC. HEENT: Normocephalic, atraumatic. No scleral icterus, no right/left eye discharge. Conjunctivae normal. Pupils equal round and reactive to light. Right external ear normal, Left external ear normal. No congestion. Mouth: mucous membranes moist. Pharynx, Oropharynx is clear. No oropharyngeal exudate. Neck: ROM normal, No thyromegaly. No cervical lymphadenopathy Cardiovascular: Regular rate and rhythm. Heart sounds normal. Negative for murmur, friction rub, or gallop. Pulmonary: Effort normal, no respiratory distress. No stridor. Bilateral crackles, no wheezing. Abdomen: Soft, no distention, no abdominal tenderness. No guarding. No masses. Musculoskeletal: ROM normal. Skin: Warm and dry. Skin is not jaundiced. No rash Extremities: No clubbing or cyanosis. No lower extremity edema. Neurological: No focal deficits. Alert and oriented x person, place and time. Mental status is at baseline. No motor weakness. Psychiatric: Mood, behavior, thought content normal. Cooperative with exam. Medications Current Medications aspirin, 81 mg, Oral, Daily atorvastatin, 80 mg, Oral, Daily cetirizine, 5 mg, Oral, Daily enoxaparin, 40 mg, SubCUTAneous, Daily furosemide, 40 mg, IntraVENous, Once furosemide, 20 mg, Oral, Daily Glycopyrrolate-Formoterol, 2 puff, Inhalation, BID guaiFENesin, 600 mg, Oral, BID influenza, 0.5 mL, IntraMUSCular, Prior to discharge insulin lispro, 0-12 Units, SubCUTAneous, TID WC And insulin lispro, 0-12 Units, SubCUTAneous, Nightly ipratropium-albuterol, 3 mL, Nebulization, 4x daily levETIRAcetam, 750 mg, Oral, BID piperacillin-tazobactam, 3,375 mg, IntraVENous, q8h vancomycin, 1,250 mg, IntraVENous, q24h PRN Mediations PRN medications: acetaminophen OR acetaminophen, dextrose, dextrose, glucagon (rDNA), glucose, ondansetron ODT OR ondansetron, polyethylene glycol (PEG) 3350 IV Drips/Infusions Labs CBC Results from last 7 days Lab Units 07/09/24418 WBC AUTO 10*3/uL 9.3 HEMOGLOBIN g/dL 11.6* HEMATOCRIT % 36.3 PLATELETS 10*3/uL 231 BMP: Results from last 7 days Lab Units 07/09/2441807/08/2415 07/07/24 1515 SODIUM mmol/L 138 139 137 POTASSIUM mmol/L 3.9 4.1 5.3* CHLORIDE mmol/L 107 107 104 CO2 mmol/L 23 26 22* BUN mg/dL 15 16 19 CREATININE mg/dL 0.83 0.81 1.00 GLUCOSE mg/dL 106 127* 205* CALCIUM mg/dL 8.5* 8.9 10.0 ABG: LIVER PROFILE Results from last 7 days Lab Units 07/09/2441807/08/24 0515 07/07/24 1515 ALK PHOS U/L 77 79 98 BILIRUBIN TOTAL mg/dL 0.5 0.6 0.5 PROTEIN TOTAL g/dL 6.5 6.6 8.6* ALT U/L <6 <6 12 AST U/L 21 21 34* INR PTT No results found for: "PTT" PFT (05/22/21) - Media tab Absolute Value % Predicted Z-score FEV1/FVC 93% FEV1 0.94 44 FVC 1.01 36 TLC RV/TLC DLCO My personal interpretation: Spirometry shows no overt airflow obstruction. Reduction in vital capacity could be due to restriction or air trapping, but there are no lung volumes. Sleep study 04/08/2019 1. Moderate obstructive sleep apnea. Respiratory events were associated with oxygen desaturations to a parth of 86.0%. This apnea-hypopnea index (AHI) may be underestimated due to the absence of recorded REM sleep in the baseline portion of the study. 2. At a Bilevel PAP setting of 16/11 cmH2O, during which sleep was recorded in the supine position, the overall apnea-hypopnea index (AHI) was normalized, snoring was eliminated, and oxygen saturation was maintained above 90%. HOWEVER, during this study, the REM related apnea-hypopnea index was not normalized and remained in the severe range on pressure settings as high as 14/9 cmH2O. 3. Abnormal sleep architecture likely due to respiratory events, PAP titration, and first night effect. RECOMMENDATIONS: Due to persistent REM related respiratory events during this study, recommend the following: Auto Bilevel PAP with max IPAP 24 cmH2O, min EPAP 11 cmH2O, and pressure support of 3-5 cmH2O, with humidification. Recommend close clinical follow up as well as PAP data download after 4 weeks of PAP use to determine if changes to the PAP settings are necessary. A standard size ResMed AirFit N10 nasal mask without chin strap was used during this study. Cultures N/A Radiology All relevant/recent imaging was personally reviewed by me. Please see official radiology report for details. CT chest without contrast (07/08/24) Impression: Suspected pulmonary edema, superimposed on chronic interstitial changes, scarring/fibrosis. Short-term interval follow-up recommended. Cardiomegaly with cardiac pacemaker. Slightly enlarged main pulmonary artery, which may be seen with pulmonary arterial hypertension. Assessment Chronic hypoxemic respiratory failure Acute on chronic HFpEF Pulmonary edema Likely underlying chronic ILD/fibrotic changes CHB s/p PPM Seizures MARY, not on PAP therapy Prior remote tobacco abuse Obesity, class II Recommendations CT images reviewed, concerning for pulmonary edema superimposed on chronic interstitial changes, cannot rule out infectious process She has significant coronary and mitral valve annular calcification, obtain TTE to better assess cardiac and valve function Recommend continuing diuresis as tolerable, BNP is significantly elevated for age and BMI Agree with empiric antibiotics, she could have had an aspiration event leading to ARDS-like picture, but less likely, try to obtain sputum for analysis Anoro on med list, prior spirometry shows no overt airflow obstruction, she has a remote smoking history, doubt she truly has COPD, she is currently on scheduled Duonebs and Bevespi Keppra level in process, unclear if she had a true seizure episode, but I increased her home Keppra back to her previously prescribed dose of 750 mg BID for now, patient does report missing her afternoon dose prior to initial presentation She is currently saturating well on home 3 LPM O2 Prior sleep study reviewed, continue auto-BiPAP Pulmonary will continue to follow Muriel Mckeon MD Pulmonary & Critical Care Medicine [facility] Hospitalist Progress Note 07/09/2024 Subjective: Admit Date: 07/07/2024 PCP: Mayur Young Room#: 35/35 BRIEF HOSPITAL COURSE: Ana is a 79 year old female sent to ED from nursing facility. She was sent in with altered mental status. She was found down. She says she had a seizure but none witnessed or reported. She has some SOB and cough. No cp, n/v, f/c, dizziness. Will admit for further evaluation and management. Interval History: No overnight issues. She denies feeling short of breath. Upset she could not have a grilled cheese. She is on soft bite seized diet. Case and plan discussed with patient and bedside nurse. All questions answered. Adult diet Dysphagia - Soft and Bite Sized; 5 carb choices (75 gm/meal) 24HR INTAKE/OUTPUT: Intake/Output Summary (Last 24 hours) at 07/09/2024 0858 Last data filed at 07/08/2024 1338 Gross per 24 hour Intake 50 ml Output -- Net 50 ml Past Medical History: Past Medical History: Diagnosis Date Allergic rhinitis Anxiety COPD (chronic obstructive pulmonary disease) ([facility]) Debility Depression Dizziness DM2 (diabetes mellitus, type 2) ([facility]) DVT (deep venous thrombosis) ([facility]) GERD (gastroesophageal reflux disease) Hypercholesteremia Hypertension Lymphedema Migraine headache Morbid obesity (CMS/HCC) ([facility]) Nephrolithiasis status post perc nephrolithotomy MARY (obstructive sleep apnea) Osteoarthrosis Pneumonia Seizures (CMS/HCC) ([facility]) LABS: CBC: Recent Labs 07/07/24 15107/08/24 0515 07/09/24 0419 WBC 10.9* 9.1 9.3 RBC 4.98 4.19 3.85 HGB 14.9 12.4 11.6* HCT 46.3 39.2 36.3 MCV 93.0 93.6 94.3 RDW 15.5* 15.7* 15.8* PLT 321 277 231 BMP: Recent Labs 07/07/24151407/08/24 0515 07/09/24 0419 NA 137 139 138 K 5.3* 4.1 3.9 CL 104 107 107 CO2 22* 26 23 BUN 19 16 15 CREATININE 1.00 0.81 0.83 GLUCOSE 205* 127* 106 CALCIUM 10.0 8.9 8.5* ANIONGAP 11 6 8 LIVER PROFILE: Recent Labs 07/07/24151407/08/24 0515 07/09/24 0419 AST 34* 21 21 ALT 12 <6 <6 BILITOT 0.5 0.6 0.5 ALKPHOS 98 79 77 PROT 8.6* 6.6 6.5 PT/INR: No results for input(s): "PROTIME", "INR" in the last 72 hours. CARDIAC ENZYMES: No results for input(s): "TROPONINI" in the last 72 hours. Procalcitonin: Lab Results Component Value Date PROCAL 0.02 07/08/2024 COVID-19 PCR: No results for input(s): "COVID19" in the last 72 hours. Objective: Vitals: BP 96/50 Pulse 87 Temp 36.4 C (97.6 F) (Temporal) Resp 15 Ht 5' 4" (1.626 m) Wt 225 lb 5 oz (102 kg) SpO2 99% BMI 38.67 kg/m Pulse Ox: SpO2 Av.2 % Min: 95 % Max: 100 % Supplemental O2: O2 Flow Rate (L/min): 3 L/min Physical Exam Constitutional: Appearance: Normal appearance. She is obese. HENT: Head: Normocephalic and atraumatic. Nose: Nose normal. Mouth/Throat: Mouth: Mucous membranes are moist. Eyes: Extraocular Movements: Extraocular movements intact. Conjunctiva/sclera: Conjunctivae normal. Pupils: Pupils are equal, round, and reactive to light. Cardiovascular: Rate and Rhythm: Normal rate and regular rhythm. Pulmonary: Effort: Pulmonary effort is normal. Breath sounds: Rales present. Abdominal: General: Bowel sounds are normal. Palpations: Abdomen is soft. Musculoskeletal: General: Normal range of motion. Cervical back: Normal range of motion. Right lower leg: Edema present. Left lower leg: Edema present. Skin: General: Skin is warm and dry. Neurological: General: No focal deficit present. Mental Status: She is alert and oriented to person, place, and time. Psychiatric: Mood and Affect: Mood normal. Behavior: Behavior normal. Thought Content: Thought content normal. Medications: Scheduled PRN aspirin, 81 mg, Oral, Daily atorvastatin, 80 mg, Oral, Daily cetirizine, 5 mg, Oral, Daily enoxaparin, 40 mg, SubCUTAneous, Daily furosemide, 20 mg, Oral, Daily Glycopyrrolate-Formoterol, 2 puff, Inhalation, BID guaiFENesin, 600 mg, Oral, BID influenza, 0.5 mL, IntraMUSCular, Prior to discharge insulin lispro, 0-12 Units, SubCUTAneous, TID WC And insulin lispro, 0-12 Units, SubCUTAneous, Nightly ipratropium-albuterol, 3 mL, Nebulization, 4x daily levETIRAcetam, 750 mg, Oral, BID piperacillin-tazobactam, 3,375 mg, IntraVENous, q8h vancomycin, 1,250 mg, IntraVENous, q24h PRN medications: acetaminophen OR acetaminophen, dextrose, dextrose, glucagon (rDNA), glucose, ondansetron ODT OR ondansetron, polyethylene glycol (PEG) 3350 Continuous Assessment Data: (CAT1) Reviewed 3 or more notes from different specialty or health system (each=1). (CAT1) Reviewed 3 or more labs/studies ordered by another provider not previously counted (each=1, panels count as 1). (CAT1) Ordered 2 new labs and/or studies (each=1, panels count as 1). (LOW: 2x CAT1 or independent historian MOD: 3x CAT1 or 1x CAT3 EXTENSIVE: 3x CAT1 and 1x CAT3) Acute, acute on chronic, unstable/uncontrolled chronic problems/diagnoses: Sepsis - improved, Pneumonia ? , neg urine antigens , neg respiratory panel , blood cultures negative x 24 hours , pulmonology following Acute on chronic heart failure - lasix IV 40 mg x 1 dose 07/08, now on oral lasix daily 20 mg Chronic hypoxemic respiratory failure - remains on 3 liters home setting , hypoxic on RA at 85% T2DM with hyperglycemia - improved, continue SS Stable chronic problems affecting care, new non-acute diagnoses: Seizure disorder - no seizures during admission, continue Keppra Class 2 obesity- BMI 38 Pacemaker in situ Plan As a result of the above findings & factors, the following mgmt was pursued: - patient improving, likely heart failure not pneumonia , possibly a bit of both? Pulmonology following - am labs, replace lytes prn - PT/OT/CM/SW - delirium precautions: increase activity and limit nighttime disturbances - DVT prophylaxis: enoxaparin and encourage ambulation Complexity: Chronic illness with mild to moderate exacerbation, progression, or side effect of tx (MOD). Acute illness with systemic symptoms (MOD). Risk: Prescription drug/IVF/colloid was initiated, discontinued, adjusted; or reviewed with decision to maintain current orders (MOD). Low risk diagnostic testing or treatment (LOW). Advance Directive: Full Code Anticipated Discharge - Date - 07/10? - Location - [facility] (Non-Skilled) - Pending the following - pulmonology clearance Total time spent (which include face to face and non face to face encounters) : minutes Toxic drug monitoring/narrow therapeutic index drug monitoring : # Drug name : # Route administered : # Method of monitoring : Extended Emergency Contact Information Primary Emergency Contact: OmariChucky Mobile Relation: Son Preferred language: Romanian Cops needed? No Secondary Emergency Contact: Divya Hall Relation: Sibling Brittany Zimmerandre Garcia, WEIGH TANK OPERATOR - BOXING AND PRESSING SUPERVISOR Division of Hospitalist Medicine [facility] Nutrition Assessment Type and Reason for Visit: Initial, Consult (Enrique) Nutrition Recommendations/Plan: Per MNT protocol, downgraded diet per SENIOR RADIATION THERAPIST recommendations to: Soft and Bite Sized: 5 carbohydrate choices/75 g CHO per meal diet Assist patient ion room-service participation and encourage patient to select well balanced meals Please document all oral intake in EMR for most accurate nutrient intake assessment As able, please obtain weekly standing scale weights for most accurate anthropometric data and calculation of macronutrient and fluid needs RDN to continue to monitor weekly: fluid accumulation, weight, skin integrity, trends in lab values, tolerance of PO, improvement in clinical status, discharge planning. 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 Presented to [facility] after an unwitnessed fall from [facility]. Significant labs on admit: K+(5.3), Mg+(1.5), AST(34), WBC(10.9), lactic acid(2.9), troponins(45->33). +Urine with nitrated and leukocytes. Chest imaging on admit with Bilateral mild interstitial infiltrates. Head CT without evidence of an acute intracranial abnormality. Pulmonology consulted, recommending empiric diuresis and antibiotics. Recommending nocturnal BiPAP. Resting in bed at time of assessment, irritable that her lunch ahs not yet been delivered. Alerted patient that it may take up to one hour to deliver. Last oral intake was tuna casserole for supper yesterday . Denies: pain, nausea, GI distress when eating. Per review of chart on Mechanical Soft diet at facility. Per patient UBW is 228#,confirmed with SNF- weight noted on 06/11/24. Difficult to keep on track regarding diet and nutrition concerns as patient was focused on that nurse forgetting to give me my medication. And she called me a liar! . Patient listed many of the medications she was prescribed to RDN. Deferred NFPE Estimated Daily Nutrient Needs: Energy Requirements Based On: Kcal/kg Weight Used for Energy Requirements: [place] Weight for Energy Calculation (kg): 55 kg Total Energy Requirements (kcals/day): 3762-7162 (25-30 kcal/kg IBW) Weight Used for Protein Requirements: [place] Weight in Kg Used for Protein Requirements: 55 kg Estimated Total Protein (g/day): 55-83 (1.0-1.5 g protein/kg IBW) Estimated Daily Total Fluid (ml/day): per MD Nutrition Related Findings: +I/O balance, A+Ox3. +edentulous, Enrique score=12. SENIOR RADIATION THERAPIST recommending Soft and Bite Sized Diet. Meds: Lovenox, insulin, Keppra, Zosyn. Labs: BNP(1548), BGL(114->132->147). Wound Type: Wound Consult Pending Current Nutrition Therapies: Adult diet Dysphagia - Soft and Bite Sized; 5 carb choices (75 gm/meal) Current Oral Intake Average Meal Intake: Unable to assess (No PO since admit) Average Supplements Intake: None Ordered Anthropometric Measures: Height: 162.6 cm (5' 4") Current Body Weight: 102 kg (225 lb 5 oz) Weight Source: Bed Scale Admission Body Weight: 103 kg (228 lb) (stated) Usual Body Weight: 103 kg (228 lb) (per EMR--> 220# 10/03/23 and 10/15/23; 229.5# 12/28/23. per SNF 28# on 06/11/24) % Weight Change (Calculated): -1.2 [place] Body Weight (lbs) (Calculated): 120 lbs [place] Body Weight (Kg) (Calculated): 55 kg % [place] Body Weight (Calculated): 187.8 % BMI (kg/m2) (Calculated): 38.7 Weight Adjustment For: No Adjustment BMI Categories: Obese Class 2 (BMI 35.0 -39.9) Nutrition Diagnosis: Altered nutrition-related lab values related to endocrine dysfuntion as evidenced by lab values related to as evidenced by Nutrition Interventions: Nutrition Education/Counseling: Education not indicated Coordination of Nutrition Care: Continue to monitor while inpatient, Speech Therapy Plan of Care discussed with: patient Goals: Goals: PO intake 50% or greater, prior to discharge Nutrition Monitoring and Evaluation: Behavioral-Environmental Outcomes: None Identified Food/Nutrient Intake Outcomes: Food and Nutrient Intake Physical Signs/Symptoms Outcomes: Biochemical Data, Chewing or Swallowing, GI Status, Meal Time Behavior, Hemodynamic Status, Weight, Skin, Fluid Status or Edema, Nutrition Focused Physical Findings, Nausea or Vomiting Discharge Planning: Continue current diet Nazia Mathis RDN, LDN, Contact: *[phone] Hospitalist Progress Note 07/08/2024 Subjective: Admit Date: 07/07/2024 PCP: Mayur Young Room#: 35/35 Interval History: Doing better overall. Still very weak. SOB better. More alert. No cp, cough, n/v, f/c. Tolerating diet. Case and plan discussed with patient. All questions answered. Adult diet Dysphagia - Soft and Bite Sized; 5 carb choices (75 gm/meal) 24HR INTAKE/OUTPUT: Intake/Output Summary (Last 24 hours) at 07/08/2024 1251 Last data filed at 07/08/2024 0449 Gross per 24 hour Intake 900 ml Output 200 ml Net 700 ml Past Medical History: Past Medical History: Diagnosis Date Allergic rhinitis Anxiety COPD (chronic obstructive pulmonary disease) ([facility]) Debility Depression Dizziness DM2 (diabetes mellitus, type 2) ([facility]) DVT (deep venous thrombosis) ([facility]) GERD (gastroesophageal reflux disease) Hypercholesteremia Hypertension Lymphedema Migraine headache Morbid obesity ([facility]) ([facility]) Nephrolithiasis status post perc nephrolithotomy MARY (obstructive sleep apnea) Osteoarthrosis Pneumonia Seizures ([facility]) ([facility]) LABS: CBC: Recent Labs 07/07/24 1515 07/08/24 0515 WBC 10.9* 9.1 RBC 4.98 4.19 HGB 14.9 12.4 HCT 46.3 39.2 MCV 93.0 93.6 RDW 15.5* 15.7* PLT 321 277 BMP: Recent Labs 07/07/24 1515 07/08/24 0515 NA 137 139 K 5.3* 4.1 CL 104 107 CO2 22* 26 BUN 19 16 CREATININE 1.00 0.81 GLUCOSE 205* 127* CALCIUM 10.0 8.9 ANIONGAP 11 6 LIVER PROFILE: Recent Labs 07/07/24 1515 07/08/24 0515 AST 34* 21 ALT 12 <6 BILITOT 0.5 0.6 ALKPHOS 98 79 PROT 8.6* 6.6 PT/INR: No results for input(s): "PROTIME", "INR" in the last 72 hours. CARDIAC ENZYMES: No results for input(s): "TROPONINI" in the last 72 hours. Procalcitonin: Lab Results Component Value Date PROCAL 0.02 07/08/2024 COVID-19 PCR: No results for input(s): "COVID19" in the last 72 hours. Objective: Vitals: BP 112/55 (BP Location: Left arm, Patient Position: Sitting) Pulse 85 Temp 36.3 C (97.4 F) (Temporal) Resp 19 Ht 5' 4" (1.626 m) Wt 225 lb 5 oz (102 kg) SpO2 98% BMI 38.67 kg/m Pulse Ox: SpO2 Av % Min: 87 % Max: 100 % Supplemental O2: O2 Flow Rate (L/min): 3 L/min Physical Exam Vitals and nursing note reviewed. Constitutional: General: She is not in acute distress. Appearance: She is obese. HENT: Head: Normocephalic. Mouth/Throat: Pharynx: Oropharynx is clear. Eyes: Extraocular Movements: Extraocular movements intact. Cardiovascular: Rate and Rhythm: Normal rate and regular rhythm. Pulses: Normal pulses. Heart sounds: Murmur heard. Pulmonary: Effort: Pulmonary effort is normal. Breath sounds: Rhonchi and rales present. Abdominal: General: Bowel sounds are normal. There is no distension. Palpations: Abdomen is soft. Tenderness: There is no abdominal tenderness. Musculoskeletal: Cervical back: Normal range of motion. Right lower leg: Edema present. Left lower leg: Edema present. Skin: General: Skin is dry. Capillary Refill: Capillary refill takes less than 2 seconds. Neurological: General: No focal deficit present. Mental Status: She is alert and oriented to person, place, and time. Psychiatric: Mood and Affect: Mood normal. Medications: Scheduled PRN aspirin, 81 mg, Oral, Daily enoxaparin, 40 mg, SubCUTAneous, Daily guaiFENesin, 600 mg, Oral, BID influenza, 0.5 mL, IntraMUSCular, Prior to discharge insulin lispro, 0-12 Units, SubCUTAneous, TID WC And insulin lispro, 0-12 Units, SubCUTAneous, Nightly ipratropium-albuterol, 3 mL, Nebulization, 4x daily levETIRAcetam, 750 mg, Oral, BID piperacillin-tazobactam, 3,375 mg, IntraVENous, q8h vancomycin, 1,250 mg, IntraVENous, q24h PRN medications: acetaminophen OR acetaminophen, dextrose, dextrose, glucagon (rDNA), glucose, ondansetron ODT OR ondansetron, polyethylene glycol (PEG) 3350 Continuous Assessment Altered mental status Fall Possible seizure Severe sepsis at 15:15 in the ED Pneumonia Lactic acidosis COPD HFpEF MARY Chronic respiratory failure CHB Leukocytosis Hyperkalemia HTN DM2 Seizure disorder GERD Hyperlipidemia Class 3 obesity Plan Continue to monitor on telemetry, continue oxygen and aerosols and IV antibiotics, Pulmonology following, follow up cultures, I/Os and daily weights. Follow up echocardiogram, diurese, continue IS, POCT, SS insulin, continue PT/OT/SENIOR RADIATION THERAPIST, adjust diet, follow up labs, follow up BP, continue keppra, discharge planning, see orders. - am labs, replace lytes prn - PT/OT/CM/SW - delirium precautions: increase activity - DVT prophylaxis: enoxaparin and encourage ambulation Advance Directive: Full Code Anticipated Discharge - Date - 07/10-07/12 - Location - Skilled Facility - Pending the following - clinical improvement, completion of work up and when OK with Pulmonology Total time spent (which include face to face and non face to face encounters) : 47 minutes Toxic drug monitoring/narrow therapeutic index drug monitoring : # Drug name : vancomycin, SS insulin and lovenox # Route administered : IV and subcutaneous and subcutaneous # Method of monitoring : blood levels/daily BMP and ac/hs blood glucose/daily BMP/hypoglycemia protocol and daily CBC Extended Emergency Contact Information Primary Emergency Contact: Chucky Lopes Mobile Relation: Son Preferred language: Romanian Cops needed? No Secondary Emergency Contact: Divya Hall Relation: Sibling Selwyn Saúl Pena MD Division of Hospitalist Medicine [facility] Images from the original note were not included. Speech-Language Pathology SPEECH LANGUAGE PATHOLOGY [facility] Bedside Swallow Evaluation Patient Name: Ana Lopes Evaluation Date: 07/08/2024 Date of : 1945 Admission Date: 07/07/2024 2:12 PM Age: 79 y.o. Room/Bed: / IMPRESSION: No s/s oropharyngeal dysphagia. No overt clinical s/s pulmonary compromise with PO. Risk factors for aspiration include GERD, MARY, COPD, pna rule out. RECOMMENDATION: Recommend Soft and bite-sized solids and Thin liquids and meds as tolerated and the following precautions: - Upright positioning for all PO intake - Slow rate of intake - Small bites/sips - Alternate solid and liquids - Consistent mouth care Dysphagia NOMS: Level 6: Swallowing is safe, and individual eats and drinks independently and requires no more than minimal cueing. Individual usually self-cues when difficulty occurs. May need to avoid specific food items (e.g., popcorn) or require additional time (due to difficulty with mastication). Pt would benefit from skilled acute SENIOR RADIATION THERAPIST services to address least restrictive diet. Frequency: 3 days/wk for 2 weeks Barriers: None Prognosis: good D/C Recommendations: to be determined Subjective Patient alert and cooperative. Seen upright in bed. Answers all basic questions with clear, strong vocal quality. Follows all basic commands. Visitors at bedside - RN. Spoke with RN, Savannah, who cleared pt to be evaluated. Dysphagia History: No history of SENIOR RADIATION THERAPIST services in EMR with retrospective chart review Baseline Diet: "They have me on ground meat at the [facility]" mechanical soft? Current Diet: Dietary Orders (From admission, onward) Start Ordered 07/07/241 Adult diet Regular; 4 carb choices (60 gm/meal) Diet effective now Question Answer Comment Diet type Regular Carbohydrate restriction: 4 carb choices (60 gm/meal) 07/07/242145 Tube Feeding: no Tracheostomy: no Recent Chest Xray/CT of Chest: XR chest 1 view 07/07/2024 Impression Mild interstitial infiltrates bilaterally may be due to edema or interstitial pneumonia. Report Dictated on Electronically Signed By: Dawood Cosme DO Electronically Signed Date/Time: 07/07/2024 3:37 PM EST Oxygen: Oxygen Therapy: Supplemental oxygen O2 Delivery Method: Nasal cannula O2 Flow Rate (L/min): (S) 3 L/min (decreased to 3L [place]) Past Medical History: Past Medical History: Diagnosis Date Allergic rhinitis Anxiety COPD (chronic obstructive pulmonary disease) ([facility]) Debility Depression Dizziness DM2 (diabetes mellitus, type 2) ([facility]) DVT (deep venous thrombosis) ([facility]) GERD (gastroesophageal reflux disease) Hypercholesteremia Hypertension Lymphedema Migraine headache Morbid obesity ([facility]) ([facility]) Nephrolithiasis status post perc nephrolithotomy MARY (obstructive sleep apnea) Osteoarthrosis Pneumonia Seizures ([facility]) ([facility]) Past Surgical History: Past Surgical History: Procedure Laterality Date CHOLECYSTECTOMY 1992 EYE SURGERY 2005 orbital I and D KIDNEY STONE SURGERY 2012 right then left nephrolithotomy TONSILLECTOMY (HISTORICAL) Admission Diagnosis: Patient Active Problem List Diagnosis Date Noted Pneumonia due to infectious organism, unspecified laterality, unspecified part of lung 07/07/2024 Fungal skin infection 06/07/2015 Morbid obesity ([facility]) 03/04/2015 Seizures ([facility]) 03/04/2015 Dizziness 03/04/2015 DM2 (diabetes mellitus, type 2) ([facility]) 03/04/2015 Debility 03/04/2015 Hypertension 03/04/2015 Hypercholesteremia 03/04/2015 Lymphedema 03/04/2015 Nephrolithiasis 03/04/2015 Osteoarthrosis 03/04/2015 Migraine headache 03/04/2015 Anxiety 03/04/2015 Depression 03/04/2015 MARY (obstructive sleep apnea) 03/04/2015 COPD (chronic obstructive pulmonary disease) ([facility]) 03/04/2015 GERD (gastroesophageal reflux disease) 03/04/2015 Allergic rhinitis 03/04/2015 History of Present Illness: Ana Lopes is a 79 y.o. female who presents to the emergency department patient presents with altered mental status. She said she lowered her self to the ground. She has history of seizures. She has had cough congestion. Patient overall poor historian. By squad. [facility] in from [facility]. Patient Complaint: "I can't chew real hard stuff like peanuts or crusty bread" Pain: Pt denies any current pain. PPE Worn: surgical mask, gloves Objective Bedside swallow eval completed. Oral Motor Mechanism Adequate structure, strength, and ROM in lingual, labial, and buccal musculature. 1 volitional swallow. Edentulous Oral Hygiene: moist, clean Swallowing Examination PO Trials - thin liquid, (cup edge, self administered) - puree, (fed by clinician) - soft and bite sized solids - regular solids Oral Phase Pt with adequate oral receipt of PO trials. No anterior spillage. Mastication with regular appeared disorganized, incomplete, and prolonged. Oral transit time appears prolonged. No oral residue. Additional Observations: Pt reports she was on a ground meat diet in the [facility] (assuming mechanical soft). Pt reports she avoids hard foods, such as peanuts, hard bread, avoids salads, etc. Pharyngeal Phase Hyolaryngeal excursion clinically appears adequate and timely per palpation. 1-2 swallows palpated per bolus, likely indicative of adequate pharyngeal clearance. No overt clinical s/s airway penetration as evidenced by no cough, no throat clear, and no change in vocal quality. Education Education Given: swallowing strategies, diet recommendations Given To: patient and RN Response: verbalizes understanding Goals Patient Stated Goal: "To get up to a room" Encounter Problems Encounter Problems (Active) Swallowing Patient will tolerate the least restrictive diet consistency to allow for safe consumption of daily meals (Initiated) Start: 07/08/24 Expected End: 07/22/24 Patient will demonstrate safe swallowing Intervention/techniques (Initiated) Start: 07/08/24 Expected End: 07/22/24 Therapy Time SENIOR RADIATION THERAPIST Individual Minutes Time In: 0948 Time Out: 0958 Minutes: 10 Rosa Isela Canas CCC-SENIOR RADIATION THERAPIST Pharmacy to Dose Vancomycin - Progress Note Recent Labs 07/07/24 1515 07/08/24 0515 BUN 19 16 CREATININE 1.00 0.81 Lab Results Component Value Date VANCORANDOM 13.2 07/08/2024 Doses, serum creatinine, and vancomycin levels interfaced automatically to [employer] and data has been analyzed and interpreted. Infectious Diagnosis: CAP Est CrCl: 93 mL/min (Cockcroft-Gault) Assessment: Current regimen vancomycin 1250 mg every 24 hours. Predicted AUC = 481 mg/L*hr (goal 400-600 mg/L*hr) Plan: Is the current dose therapeutic? [x] Yes - obtain next level on 07/15/2024 unless predicted AUC is sub-/supra-therapeutic or change in serum creatinine. Trend serum creatinine. Trend AUC using Bayesian Modeling. Orders placed. DATE: 07/08/24 TIME: 6:36 AM Frankie Handley RPh Clinical Pharmacist Available via Secure Chat documented in this encounter [facility] 07-13-2024 Note Hospitalist Progress Note 07/13/2024 [phone]: Please page me ([phone]) for patient care issues. [phone]: Please page [facility] Hospitalist for any issues. Subjective: Admit Date: 07/07/2024 PCP: Mayur Young Room#: [id number] Ruth Lopes is a 79 y.o. female who presents with Pneumonia due to infectious organism, unspecified laterality, unspecified part of lung Interval History: Earlier today she had some cough and difficulty breathing. Discussed with pulmonology service and agreed to give 40 mg of Lasix and restart p.o. Lasix in a.m. chest x-ray also reviewed shows no significant change from before, still with chronic changes in the right lobe infiltrate denies chest pain, abdominal pain, nausea, vomiting, diarrhea, constipation, fevers, or chills. Awaiting SNF precertification Adult diet Easy to Chew; 5 carb choices (75 gm/meal) 24HR INTAKE/OUTPUT: Intake/Output Summary (Last 24 hours) at 07/13/2024 1728 Last data filed at 07/12/2024 2213 Gross per 24 hour Intake 170 ml Output -- Net 170 ml LABS: CBC: Recent Labs 07/11/24 0235 07/12/24 0411 WBC 9.1 8.7 RBC 3.84 4.09 HGB 11.6* 12.0 HCT 36.0 37.9 MCV 93.8 92.7 RDW 15.7* 15.4* PLT 264 270 BMP: Recent Labs 07/11/24 0235 07/12/24 0411 NA 137 141 K 4.1 4.1 CL 100 102 CO2 30 29 BUN 21 21 CREATININE 0.74 0.70 GLUCOSE 124* 126* CALCIUM 9.0 9.2 ANIONGAP 7 10 LIVER PROFILE: Recent Labs 07/11/24 023 AST 19 ALT 6 BILITOT 0.3 ALKPHOS 81 PROT 6.8 PT/INR: No results for input(s): "PROTIME", "INR" in the last 72 hours. CARDIAC ENZYMES: No results for input(s): "TROPONINI" in the last 72 hours. Procalcitonin: No results found for: "PROCAL" @RISRSLTSPECIALTY@ Objective: Vitals: BP 157/95 (BP Location: Left arm, Patient Position: Lying) Pulse 74 Temp 36.1 ?C (96.9 ?F) (Temporal) Resp 18 Ht 5' 4" (1.626 m) Wt 235 lb 14.3 oz (107 kg) Comment: Bed Scale SpO2 95% BMI 40.49 kg/m? Pulse Ox: SpO2 Av.4 % Min: 90 % Max: 96 % Supplemental O2: O2 Flow Rate (L/min): 2 L/min 07/13/2024 General appearance: Appears anxious, appears stated age, AAOX3 Oral: Tongue is semi-moist Cardiovascular: S1/S2 heard, RRR, positive pacer Respiratory: Diminished breath sounds and compliant with oxygen, mild wheezing Abdomen: Soft, non-tender, non-distended bowel sounds positive Musculoskeletal: Mild lower extremity edema, no calf tenderness skin: No erythema or rash Medications: aspirin, 81 mg, Oral, Daily atorvastatin, 80 mg, Oral, Daily cetirizine, 5 mg, Oral, Daily enoxaparin, 40 mg, SubCUTAneous, Daily furosemide, 20 mg, Oral, Daily Glycopyrrolate-Formoterol, 2 puff, Inhalation, BID guaiFENesin, 600 mg, Oral, BID influenza, 0.5 mL, IntraMUSCular, Prior to discharge insulin lispro, 0-12 Units, SubCUTAneous, TID WC And insulin lispro, 0-12 Units, SubCUTAneous, Nightly ipratropium-albuterol, 3 mL, Nebulization, TID levETIRAcetam, 750 mg, Oral, BID predniSONE, 20 mg, Oral, Daily PRN medications: acetaminophen OR acetaminophen, dextrose, dextrose, glucagon (rDNA), glucose, ondansetron ODT OR ondansetron, polyethylene glycol (PEG) 3350 Assessment Sepsis - resolved Pneumonia ?~no s/s of pna , neg urine antigens , neg respiratory panel , blood cultures negative x 48 hours , pulmonology following , this was discussed with antibiotic stewardship and discontinued vanc/zosyn yesterday Acute on chronic heart failure - initially lasix was IV now PO , and extra dose of IV Lasix and restarted p.o. Lasix after discussion with pulmonology service UTI- urine culture positive for >100,000 e coli , sensitivity resulted , no urinary symptoms , will continue to monitor off abx Chronic hypoxemic respiratory failure - remains on 3 liters home setting , T2DM with hyperglycemia - improved, continue SS Dysphagia - speech seeing patient , on easy to chew Chronic problems Seizure disorder - no seizures during admission, continue Keppra, right now at 750 twice daily dosage Class 2 obesity- BMI 38 Pacemaker in situ Plan Reviewed CBC and BMP and ordered CBC and BMP in a.m. Dose of IV Lasix Chest x-ray reviewed personally with atelectasis and chronic changes Monitoring off IV antibiotics -am labs, replace lytes prn -increase activity Diet Adult diet Easy to Chew; 5 carb choices (75 gm/meal) DVT Prophylaxis [x] Lovenox, [] Heparin, [] SCDs, [] Ambulation [] Already on Anticoagulation GI Prophylaxis [] PPI, [] H2 Hilary, [] Carafate, [] Diet/Tube Feeds Code Status Full Code Disposition Patient requires continued admission due to sepsis and acute respiratory insufficiency MDM [] Low, [] Moderate,[x] High Patient's risk as above Total time spent (which include face to face and non face to face encounters) : 40 minutes Toxic drug monitoring/narrow therapeutic index drug monitoring : # Drug name : Insulin sliding scale, furosemide # Route admi (more content not included)... [facility] 07-13-2024 Plan of care note Problem: Knowledge Deficit Goal: Patient/family/caregiver demonstrates understanding of disease process, treatment plan, medications, and discharge instructions Outcome: Progressing Problem: Problem Interventions Goal: Promote nutritional intake Outcome: Progressing [facility] 07-13-2024 Note Formatting of this n ote might be different from the original. IV Lasix changed to PO, pt stated "breathing is much better". PNA testing all neg, atb DC. Will need updated PT and OT notes to submit for [facility] insurance auth. TCC will continue to follow. [facility] 07-13-2024 Note Formatting of this n ote might be different from the original. IV Lasix changed to PO, pt stated "breathing is much better". PNA testing all neg, atb DC. Will need updated PT and OT notes to submit for [facility] insurance auth. TCC will continue to follow. [facility] 07-12-2024 Note [facility] Respiratory Care Department Progress Note Comment or reasoning for refusal: Patient was seen in attempts to fulfill CPAP/BiPAP/AutoPAP order. Patient refused PAP therapy/study at this time. Patient was educated on medical need and reasoning for physician order to ensure patient was making an informed medical decision. All of the patient's questions were answered at this time and patient was informed that if the patient changes their mind regarding wearing PAP to hit their "call light" or inform their nurse to contact Respiratory. A second, consecutive night of refusing PAP therapy/study results in order completion in the EMR. If future CPAP/BiPAP/AutoPAP therapy or study is indicated please place another order in the EMR and the assigned Respiratory Therapist will reattempt to fulfill orders. Reason for refusal: Thank you for involving Respiratory in the care of this patient, [facility] 07-12-2024 Note Hospitalist Progress Note 07/12/2024 [phone]: Please page me ([phone]) for patient care issues. [phone]: Please page [facility] night Hospitalist for any issues. Subjective: Admit Date: 07/07/2024 PCP: Mayur Young Room#: [id number] A Ana Lopes is a 79 y.o. female who presents with Pneumonia due to infectious organism, unspecified laterality, unspecified part of lung Interval History: Lying in the bed, claims that her breathing is better , she is a resident of [facility] care [facility] chart reviewed IV Lasix has been stopped denies chest pain, sob, abdominal pain, nausea, vomiting, diarrhea, constipation, fevers, or chills. Adult diet Easy to Chew; 5 carb choices (75 gm/meal) 24HR INTAKE/OUTPUT: Intake/Output Summary (Last 24 hours) at 07/12/2024 1459 Last data filed at 07/12/2024 0810 Gross per 24 hour Intake 220 ml Output 1500 ml Net -1280 ml LABS: CBC: Recent Labs 07/10/24 0549 07/11/245 07/12/24 0411 WBC 8.8 9.1 8.7 RBC 3.91 3.84 4.09 HGB 11.7 11.6* 12.0 HCT 36.8 36.0 37.9 MCV 94.1 93.8 92.7 RDW 15.8* 15.7* 15.4* PLT 247 264 270 BMP: Recent Labs 07/10/24 0549 07/11/24 0235 07/12/24 041 NA 139 137 141 K 3.9 4.1 4.1 CL 104 100 102 CO2 28 30 29 BUN 14 21 21 CREATININE 0.77 0.74 0.70 GLUCOSE 120* 124* 126* CALCIUM 9.0 9.0 9.2 ANIONGAP 7 7 10 LIVER PROFILE: Recent Labs 07/10/24 0549 07/11/24 023 AST 18 19 ALT <6 6 BILITOT 0.4 0.3 ALKPHOS 78 81 PROT 6.7 6.8 PT/INR: No results for input(s): "PROTIME", "INR" in the last 72 hours. CARDIAC ENZYMES: No results for input(s): "TROPONINI" in the last 72 hours. Procalcitonin: No results found for: "PROCAL" @RISRSLTSPECIALTY@ Objective: Vitals: BP 95/59 (BP Location: Right arm, Patient Position: Lying) Pulse 86 Temp 37 ?C (98.6 ?F) (Temporal) Resp 18 Ht 5' 4" (1.626 m) Wt 233 lb 11 oz (106 kg) Comment: Bed Scale SpO2 97% BMI 40.11 kg/m? Pulse Ox: SpO2 Av % Min: 93 % Max: 98 % Supplemental O2: O2 Flow Rate (L/min): 2 L/min 07/12/2024 General appearance: No apparent distress, appears stated age, AAOX3 Oral: Tongue is semi-moist Cardiovascular: S1/S2 heard, RRR, positive pacer Respiratory: Diminished breath sounds and compliant with oxygen Abdomen: Soft, non-tender, non-distended bowel sounds positive Musculoskeletal: Mild lower extremity edema, no calf tenderness skin: No erythema or rash Medications: aspirin, 81 mg, Oral, Daily atorvastatin, 80 mg, Oral, Daily cetirizine, 5 mg, Oral, Daily enoxaparin, 40 mg, SubCUTAneous, Daily [Held by provider] furosemide, 20 mg, Oral, Daily Glycopyrrolate-Formoterol, 2 puff, Inhalation, BID guaiFENesin, 600 mg, Oral, BID influenza, 0.5 mL, IntraMUSCular, Prior to discharge insulin lispro, 0-12 Units, SubCUTAneous, TID WC And insulin lispro, 0-12 Units, SubCUTAneous, Nightly ipratropium-albuterol, 3 mL, Nebulization, TID levETIRAcetam, 750 mg, Oral, BID PRN medications: acetaminophen OR acetaminophen, dextrose, dextrose, glucagon (rDNA), glucose, ondansetron ODT OR ondansetron, polyethylene glycol (PEG) 3350 Assessment Sepsis - resolved Pneumonia ?~no s/s of pna , neg urine antigens , neg respiratory panel , blood cultures negative x 48 hours , pulmonology following , this was discussed with antibiotic stewardship and discontinued vanc/zosyn yesterday Acute on chronic heart failure - initially lasix was IV now PO , and o hold UTI- urine culture positive for >100,000 e coli , sensitivity resulted , no urinary symptoms , will continue to monitor off abx Chronic hypoxemic respiratory failure - remains on 3 liters home setting , hypoxic on RA at 85% T2DM with hyperglycemia - improved, continue SS Dysphagia - speech seeing patient , on easy to chew Chronic problems Seizure disorder - no seizures during admission, continue Keppra, right now at 750 twice daily dosage Class 2 obesity- BMI 38 Pacemaker in situ Plan Reviewed CBC and BMP and ordered CBC and BMP in a.m. Will restart Lasix p.o. Monitoring off IV antibiotics -am labs, replace lytes prn -increase activity Diet Adult diet Easy to Chew; 5 carb choices (75 gm/meal) DVT Prophylaxis [x] Lovenox, [] Heparin, [] SCDs, [] Ambulation [] Already on Anticoagulation GI Prophylaxis [] PPI, [] H2 Hilary, [] Carafate, [] Diet/Tube Feeds Code Status Full Code Disposition Patient requires continued admission due to sepsis and acute respiratory insufficiency MDM [] Low, [] Moderate,[x] High Patient's risk as above Total time spent (which include face to face and non face to face encounters) : 40 minutes Toxic drug monitoring/narrow therapeutic index drug monitoring : # Drug name : Insulin sliding scale # Route administered : Subcutaneous # Method of monitoring : Monitoring blood sugars Extended Emergency Contact Information Primary Emergency Contact: Chucky Lopes Mobile Relation (more content not included)... [facility] 07-11-2024 Note Hospitalist Progress Note 07/11/2024 Subjective: Admit Date: 07/07/2024 PCP: Mayur Young Room#: [id number] A BRIEF HOSPITAL COURSE: Ana is a 79 year old female sent to ED from nursing facility. She was sent in with altered mental status. She was found down. She says she had a seizure but none witnessed or reported. She has some SOB and cough. No cp, n/v, f/c, dizziness Interval History: No overnight issues.She is up to bedside commode. States her breathing feels baseline for her. Appetite is good. Case and plan discussed with patient and bedside nurse. All questions answered. Adult diet Easy to Chew; 5 carb choices (75 gm/meal) 24HR INTAKE/OUTPUT: Intake/Output Summary (Last 24 hours) at 07/11/2024 1206 Last data filed at 07/10/2024 2135 Gross per 24 hour Intake -- Output 1 ml Net -1 ml Past Medical History: Past Medical History: Diagnosis Date Allergic rhinitis Anxiety COPD (chronic obstructive pulmonary disease) ([facility]) Debility Depression Dizziness DM2 (diabetes mellitus, type 2) ([facility]) DVT (deep venous thrombosis) ([facility]) GERD (gastroesophageal reflux disease) Hypercholesteremia Hypertension Lymphedema Migraine headache Morbid obesity ([facility]/HCC) ([facility]) Nephrolithiasis status post perc nephrolithotomy MARY (obstructive sleep apnea) Osteoarthrosis Pneumonia Seizures ([facility]) ([facility]) LABS: CBC: Recent Labs 07/09/2441807/10/24 0549 07/11/24 0235 WBC 9.3 8.8 9.1 RBC 3.85 3.91 3.84 HGB 11.6* 11.7 11.6* HCT 36.3 36.8 36.0 MCV 94.3 94.1 93.8 RDW 15.8* 15.8* 15.7* PLT 231 247 264 BMP: Recent Labs 07/09/2441807/10/24 0549 07/11/24 023 NA 138 139 137 K 3.9 3.9 4.1 CL 107 104 100 CO2 23 28 30 BUN 15 14 21 CREATININE 0.83 0.77 0.74 GLUCOSE 106 120* 124* CALCIUM 8.5* 9.0 9.0 ANIONGAP 8 7 7 LIVER PROFILE: Recent Labs 07/09/2441807/10/24 0549 07/11/24 0235 AST 21 18 19 ALT <6 <6 6 BILITOT 0.5 0.4 0.3 ALKPHOS 77 78 81 PROT 6.5 6.7 6.8 PT/INR: No results for input(s): "PROTIME", "INR" in the last 72 hours. CARDIAC ENZYMES: No results for input(s): "TROPONINI" in the last 72 hours. Procalcitonin: No results found for: "PROCAL" COVID-19 PCR: No results for input(s): "COVID19" in the last 72 hours. Objective: Vitals: BP 105/63 (BP Location: Right arm, Patient Position: Lying) Pulse 85 Temp 36.6 ?C (97.8 ?F) (Temporal) Resp 20 Ht 5' 4" (1.626 m) Wt 225 lb (102 kg) SpO2 95% BMI 38.62 kg/m? Pulse Ox: SpO2 Av.5 % Min: 93 % Max: 96 % Supplemental O2: O2 Flow Rate (L/min): 2 L/min Physical Exam Vitals and nursing note reviewed. Constitutional: Appearance: Normal appearance. She is obese. HENT: Head: Normocephalic and atraumatic. Nose: Nose normal. Mouth/Throat: Mouth: Mucous membranes are moist. Eyes: Extraocular Movements: Extraocular movements intact. Conjunctiva/sclera: Conjunctivae normal. Pupils: Pupils are equal, round, and reactive to light. Cardiovascular: Rate and Rhythm: Normal rate and regular rhythm. Pulmonary: Effort: Pulmonary effort is normal. Comments: Mild crackles , improved from yesterday Abdominal: General: Bowel sounds are normal. Palpations: Abdomen is soft. Musculoskeletal: General: Normal range of motion. Cervical back: Normal range of motion. Skin: General: Skin is warm and dry. Neurological: General: No focal deficit present. Mental Status: She is alert and oriented to person, place, and time. Psychiatric: Mood and Affect: Mood normal. Behavior: Behavior normal. Thought Content: Thought content normal. Medications: Scheduled PRN aspirin, 81 mg, Oral, Daily atorvastatin, 80 mg, Oral, Daily cetirizine, 5 mg, Oral, Daily enoxaparin, 40 mg, SubCUTAneous, Daily furosemide, 40 mg, IntraVENous, BID [Held by provider] furosemide, 20 mg, Oral, Daily Glycopyrrolate-Formoterol, 2 puff, Inhalation, BID guaiFENesin, 600 mg, Oral, BID influenza, 0.5 mL, IntraMUSCular, Prior to discharge insulin lispro, 0-12 Units, SubCUTAneous, TID WC And insulin lispro, 0-12 Units, SubCUTAneous, Nightly ipratropium-albuterol, 3 mL, Nebulization, TID levETIRAcetam, 750 mg, Oral, BID PRN medications: acetaminophen OR acetaminophen, dextrose, dextrose, glucagon (rDNA), glucose, ondansetron ODT OR ondansetron, polyethylene glycol (PEG) 3350 Continuous Assessment Data: (CAT1) Reviewed 1 notes from different specialty or health system (each=1). (CAT1) Reviewed 2 labs/studies previously ordered by me not previously counted (each=1, panels count as 1). (CAT1) Ordered 2 new labs and/or studies (each=1, panels count as 1). (LOW: 2x CAT1 or independent historian MOD: 3x CAT1 or 1x CAT3 EXTENSIVE: 3x CAT1 and 1x CAT3) Acute, acute on chronic, unstable/uncontrolled chronic problems/diagnoses: Sepsis - resolved Pneumonia ?~no s/s of pna , neg urine antigens , neg respiratory panel , blood cultures negati (more content not included)... [facility] 07-11-2024 Note [facility] Respiratory Care Department Progress Note Comment or reasoning for refusal: Patient was seen in attempts to fulfill CPAP/BiPAP/AutoPAP order. Patient refused PAP therapy/study at this time. Patient was educated on medical need and reasoning for physician order to ensure patient was making an informed medical decision. All of the patient's questions were answered at this time and patient was informed that if the patient changes their mind regarding wearing PAP to hit their "call light" or inform their nurse to contact Respiratory. A second, consecutive night of refusing PAP therapy/study results in order completion in the EMR. If future CPAP/BiPAP/AutoPAP therapy or study is indicated please place another order in the EMR and the assigned Respiratory Therapist will reattempt to fulfill orders. Reason for refusal: pt states that she tried it last night and it wasn't comfortable. Pt complained about mask not fit/ too tight and no water in PAP. RT offered to add humidity and adjust mask or change it and put some padding for her nose. Pt states "it doesn't matter it's gonna come off anyway". Thank you for involving Respiratory in the care of this patient, [facility] 07-10-2024 Plan of care note Problem: Knowledge Deficit Goal: Patient/family/caregiver demonstrates understanding of disease process, treatment plan, medications, and discharge instructions Outcome: Progressing Problem: Potential for Compromised Skin Integrity Goal: Skin Integrity is Maintained or Improved Outcome: Progressing Goal: Nutritional status is improving Outcome: Progressing Problem: Urinary Incontinence Goal: Perineal skin integrity is maintained or improved Outcome: Progressing Problem: Problem Interventions Goal: Promote nutritional intake Outcome: Progressing [facility] 07-10-2024 Note [facility] Respiratory Care Department Progress Note As part of the Respiratory Assessment Program (RAP), the following Respiratory Therapist evaluation has been completed, including a chart review and clinical/physical assessment. Respiratory Therapist RAP Evaluation Guideline Points 0 1 2 3 4 Points Strongly Consider History Factor No Pulmonary conditions Stable Pulmonary condition(s) Surgery or Intervention that may impact Pulmonary system (at risk) Surgery or Intervention that is impacting Pulmonary system Active Exacerbation of Pulmonary Condition 1 Respiratory Pattern Regular, RR= 12-18 POZO or Increased RR= 19-24 Irregular, or RR= 25-30 SOB, talk in short sentences, or RR= 31-35 Severe SOB, accessory muscle use, one word answers, or RR>35 0 Aerosol Med(s), High Flow O2 Breath Sounds Clear Diminished in 1 lobe Diminished in <= 2 lobes Adventitious breath sounds Coarse crackles, Wheezes, or Diminished in >2 lobes 2 Aerosol Med(s), Bronchial Hygiene, Hyperinflation Cough & Sputum Strong cough, no secretion retention or production Weak cough, no secretion retention or production Weak cough, w/ production (less often than Q2hr), or secretion retention No cough, w/ secretion retention or production (less often than Q2hr) Significant secretion production (more often than Q2hr) or mucus plug 0 Aerosol Med(s), Bronchial Hygiene, Hyperinflation Level of Activity Ambulatory Ambulatory with Assist Up in chair or edge of bed (dangle) Non-ambulatory, bedridden with active ROM Completely paralyzed or without active ROM 0 Triage 5 0-2 Triage 4 3-5 Triage 3 6-10 Triage 2 11-14 Triage 1 >=15 Total 3 Triage Score = 4 TRIAGE SCORING - SUGGESTED FREQUENCIES Aerosol Therapy Bronchial Hygiene Hyperinflation Triage Score Q4h & PRN 1 Q4hWA (QID) & PRN 2 TID & PRN 3 BID & PRN 4 PRN 5 Therapy(s) Indicated Yes/No Aerosol Medication Hyperinflation Bronchial Hygiene High Flow Oxygen Flow Rates PEF (L/Sec) IVC FVC FEV1 FEV1/FVC Patient instructed and returned demonstration on use of MDI (with spacer, as appropriate) None RT to enter/modify frequency of treatment order in EMR/EHR to match this RAP evaluation. Based on this RAP evaluation the following therapy is being initiated: duoneb At the following frequency: TID Comments: Thank you for involving Respiratory in the care of this patient, [facility] 07-10-2024 Note Formatting of this n ote might be different from the original. Pt from [facility]. PT/OT rec SNF, will need auth to return skilled. TCC will continue to follow. [facility] 07-10-2024 Note Formatting of this n ote might be different from the original. Pt from [facility]. PT/OT rec SNF, will need auth to return skilled. TCC will continue to follow. [facility] 07-10-2024 Consult note Associated Order (s): PHARMACY TO DOSE VANCO Vancomycin therapy has been discontinued by Brittany Garcia on 07/10/24. Thank you for the consult. Pharmacy signing off for vancomycin dosing. Chloe Garnica PharmD Date: 07/10/24 Time: 9:39 AM [facility] 07-10-2024 Consult note Associated Order (s): PHARMACY TO DOSE VANCO Vancomycin therapy has been discontinued by Brittany Garcia on 07/10/24. Thank you for the consult. Pharmacy signing off for vancomycin dosing. Chloe Garnica PharmD Date: 07/10/24 Time: 9:39 AM Associated Order(s): IP CONSULT TO PULMONOLOGY Images from the original note were not included. [facility] Pulmonary Medicine [address] [place] [id number] [id number] 1945 Date of Admission - 07/07/2024 2:12 PM Date of Evaluation - 07/08/2024 Room - Hospital Day - 1 Consulting - Selwyn Lai MD;Mickey* PCP - Mayur Young Reason for Consult SOB/cough/hx COPD/MARY History of Present Illness Ana Lopes is a 79 y.o. female admitted for possible seizure. Patient has a past medical history of: - seizures on Keppra - CHB s/p PPM - reported COPD on Anoro - chronic hypoxemic respiratory failure on 2-3 LPM - prior tobacco abuse - obesity class II - MARY, not currently on PAP therapy Patient is new to the [facility] pulmonary service, patient has never been evaluated by a supervisor patching in the past. She was given a diagnosis of COPD, currently uses Anoro, but she does not remember the names of her inhalers. She was admitted to [facility] from [facility] in [place] 07/07/24 after she was found unresponsive in bed, unclear if she had a true seizure. Patient reports missing her afternoon dose of Keppra yesterday, she also states dose was reduced from 750 BID to 500 BID recently. She currently feels back to baseline, but she does endorse worsening dyspnea compared to baseline along with associated dry cough. Saturating well on 3 LPM O2. She denies fever, chills, chest pain, wheezing, orthopnea, hemoptysis, abdominal pain, nausea, vomiting, diarrhea, constipation, lightheadedness, dizziness, dysuria, hematuria, melena, hematochezia, leg pain, leg swelling. She endorses a smoking history but cannot tell me when she started or quit, just states she stopped "a long time ago." She is hemodynamically stable and in no acute distress. Active Hospital Problem List Patient Active Problem List Diagnosis Morbid obesity (HCC) Seizures (HCC) Dizziness DM2 (diabetes mellitus, type 2) (HCC) Debility Fungal skin infection Hypertension Hypercholesteremia Lymphedema Nephrolithiasis Osteoarthrosis Migraine headache Anxiety Depression MARY (obstructive sleep apnea) COPD (chronic obstructive pulmonary disease) (HCC) GERD (gastroesophageal reflux disease) Allergic rhinitis Pneumonia due to infectious organism, unspecified laterality, unspecified part of lung Medical History Past Medical History Past Medical History: Diagnosis Date Allergic rhinitis Anxiety COPD (chronic obstructive pulmonary disease) (HCC) Debility Depression Dizziness DM2 (diabetes mellitus, type 2) (HCC) DVT (deep venous thrombosis) (HCC) GERD (gastroesophageal reflux disease) Hypercholesteremia Hypertension Lymphedema Migraine headache Morbid obesity (CMS/HCC) (HCC) Nephrolithiasis status post perc nephrolithotomy MARY (obstructive sleep apnea) Osteoarthrosis Pneumonia Seizures (CMS/HCC) ([facility]) Past Surgical History Past Surgical History: Procedure Laterality Date CHOLECYSTECTOMY 1991 EYE SURGERY 2005 orbital I and D KIDNEY STONE SURGERY 2011 right then left nephrolithotomy TONSILLECTOMY (HISTORICAL) Social History Social History Socioeconomic History Marital status: Spouse name: Not on file Number of children: Not on file Years of education: Not on file Highest education level: Not on file Occupational History Not on file Tobacco Use Smoking status: Former Smokeless tobacco: Never Tobacco comments: Quit smoking: quit in highschool Substance and Sexual Activity Alcohol use: No Alcohol/week: 0.0 standard drinks of alcohol Drug use: No Sexual activity: Not on file Other Topics Concern Not on file Social History Narrative Not on file Social Drivers of Health Financial Resource Strain: Low Risk (05/21/2023) Received from [facility], [facility] Overall Financial Resource Strain (CARDIA) Difficulty of Paying Living Expenses: Not very hard Food Insecurity: Patient Declined (12/29/2023) Received from [facility] Hunger Vital Sign Worried About Running Out of Food in the Last Year: Patient declined Ran Out of Food in the Last Year: Patient declined Transportation Needs: Patient Declined (12/29/2023) Received from [facility] PRAPARE - Transportation Lack of Transportation (Medical): Patient declined Lack of Transportation (Non-Medical): Patient declined Physical Activity: Not on file Stress: Not on file Social Connections: Not on file Intimate Partner Violence: Not on file Housing Stability: Patient Declined (12/29/2023) Received from [facility] Housing Stability Vital Sign Unable to Pay for Housing in the Last Year: Patient declined Number of Places Lived in the Last Year: Not on file Unstable Housing in the Last Year: Patient declined Family History Family History Problem Relation Name Age of Onset Dementia Mother Immunization History Immunization History Administered Date(s) Administered DTaP 07/07/2014 Influenza, Unspecified 05/26/2015 Influenza, injectable, quadrivalent 04/10/2016, 04/09/2017 Pneumococcal Conjugate PCV 13 01/22/2017 Pneumococcal Polysaccharide PPSV23 10/11/2015 Medications Current Medications enoxaparin, 40 mg, SubCUTAneous, Daily guaiFENesin, 600 mg, Oral, BID influenza, 0.5 mL, IntraMUSCular, Prior to discharge insulin lispro, 0-12 Units, SubCUTAneous, TID WC And insulin lispro, 0-12 Units, SubCUTAneous, Nightly ipratropium-albuterol, 3 mL, Nebulization, 4x daily piperacillin-tazobactam, 3,375 mg, IntraVENous, q8h vancomycin, 1,250 mg, IntraVENous, q24h PRN Mediations PRN medications: acetaminophen OR acetaminophen, dextrose, dextrose, glucagon (rDNA), glucose, ondansetron ODT OR ondansetron, polyethylene glycol (PEG) 3350 IV Drips/Infusions Home Medications No current outpatient medications Allergies No Known Allergies Review of Systems General Denies any fever or chills HEENT Denies any diplopia, tinnitus or vertigo Resp See HPI Cardiac Denies any chest pain, palpitations, claudication or edema GI Denies any melena, hematochezia, hematemesis or pyrosis Denies any frequency, urgency, hesitancy or incontinence Heme Denies bruising or bleeding easily Neuro Denies any focal motor or sensory deficits Psychiatric Denies anxiety, depression, suicidal ideation Skin Denies rashes, itching, open sores Vitals height is 5' 4" (1.626 m) and weight is 225 lb 5 oz (102 kg). Her temporal temperature is 36.3 C (97.4 F). Her blood pressure is 122/53 and her pulse is 43 (abnormal). Her respiration is 18 and oxygen saturation is 95%. Body mass index is 38.67 kg/m . 24 Hour intake and output Intake/Output Summary (Last 24 hours) at 07/08/2024 0911 Last data filed at 07/08/2024 0449 Gross per 24 hour Intake 900 ml Output 200 ml Net 700 ml Wt Readings from Last 3 Encounters: 07/07/24 225 lb 5 oz (102 kg) Physical Exam General appearance: Awake, alert, no acute distress. On 3 liters/min NC. HEENT: Normocephalic, atraumatic. Pupils equil and round, External ear normal, conjunctivae normal, negative for scleral icterus. No congestion. Mallampati 3. Neck: ROM normal, supple, trachea midline. No lymphadenopathy Cardiovascular: Regular rate and rhythm. Heart sounds normal. Negative for murmur, friction rub, or gallop. Pulmonary: Effort normal, no respiratory distress. No stridor. Diffuse crackles, no wheezing. Abdomen: Soft, non distended, non tender, bowel sounds normal. No palpable masses. No hepatomegaly Musculoskeletal: ROM normal, Negative for swelling, tenderness or deformity. Skin: Warm, dry. Skin color, texture, turgor normal. Negative for rashes or lesions. Extremities: No clubbing, cyanosis, or extremity edema Neurological: No focal deficits. Alert and oriented x3. Lymphatics: No cervical or axillary lymphadenopathy Psychiatric: Mood, behavior, thought content normal. Cooperative with exam. Labs CBC Results from last 7 days Lab Units 07/08/24 0515 WBC AUTO 10*3/uL 9.1 HEMOGLOBIN g/dL 12.4 HEMATOCRIT % 39.2 PLATELETS 10*3/uL 277 BMP: Results from last 7 days Lab Units 07/08/24 0515 07/07/24 1515 SODIUM mmol/L 139 137 POTASSIUM mmol/L 4.1 5.3* CHLORIDE mmol/L 107 104 CO2 mmol/L 26 22* BUN mg/dL 16 19 CREATININE mg/dL 0.81 1.00 GLUCOSE mg/dL 127* 205* CALCIUM mg/dL 8.9 10.0 ABG: LIVER PROFILE Results from last 7 days Lab Units 07/08/24 0515 07/07/24 1515 ALK PHOS U/L 79 98 BILIRUBIN TOTAL mg/dL 0.6 0.5 PROTEIN TOTAL g/dL 6.6 8.6* ALT U/L <6 12 AST U/L 21 34* INR PTT No results found for: "PTT" Cultures N/A Pulmonary Function Tests (PFT's) PFT (05/22/21) - Media tab Absolute Value % Predicted Z-score FEV1/FVC 93% FEV1 0.94 44 FVC 1.01 36 TLC RV/TLC DLCO My personal interpretation: Spirometry shows no overt airflow obstruction. Reduction in vital capacity could be due to restriction or air trapping, but there are no lung volumes. Sleep History Sleep study 04/08/2019 1. Moderate obstructive sleep apnea. Respiratory events were associated with oxygen desaturations to a parth of 86.0%. This apnea-hypopnea index (AHI) may be underestimated due to the absence of recorded REM sleep in the baseline portion of the study. 2. At a Bilevel PAP setting of 16/11 cmH2O, during which sleep was recorded in the supine position, the overall apnea-hypopnea index (AHI) was normalized, snoring was eliminated, and oxygen saturation was maintained above 90%. HOWEVER, during this study, the REM related apnea-hypopnea index was not normalized and remained in the severe range on pressure settings as high as 14/9 cmH2O. 3. Abnormal sleep architecture likely due to respiratory events, PAP titration, and first night effect. RECOMMENDATIONS: Due to persistent REM related respiratory events during this study, recommend the following: Auto Bilevel PAP with max IPAP 24 cmH2O, min EPAP 11 cmH2O, and pressure support of 3-5 cmH2O, with humidification. Recommend close clinical follow up as well as PAP data download after 4 weeks of PAP use to determine if changes to the PAP settings are necessary. A standard size ResMed AirFit N10 nasal mask without chin strap was used during this study. Radiology All relevant/recent imaging was personally reviewed by me. Please see official radiology report for details. CT chest without contrast (07/08/24) Impression: Suspected pulmonary edema, superimposed on chronic interstitial changes, scarring/fibrosis. Short-term interval follow-up recommended. Cardiomegaly with cardiac pacemaker. Slightly enlarged main pulmonary artery, which may be seen with pulmonary arterial hypertension. Assessment Chronic hypoxemic respiratory failure Acute on chronic HFpEF Pulmonary edema Likely underlying chronic ILD/fibrotic changes CHB s/p PPM Seizures MARY, not on PAP therapy Prior remote tobacco abuse Obesity, class II Recommendations CT images reviewed, concerning for pulmonary edema superimposed on chronic interstitial changes, cannot rule out infectious process She has significant coronary and mitral valve annular calcification, obtain TTE to better assess cardiac and valve function Recommend empiric diuresis, BNP is significantly elevated for age and BMI Agree with empiric antibiotics, she could have had an aspiration event leading to ARDS-like picture, but less likely, try to obtain sputum for analysis Anoro on med list, prior spirometry shows no overt airflow obstruction, she has a remote smoking history, doubt she truly has COPD, she is currently on scheduled Duonebs Keppra level ordered, unclear if she had a true seizure episode, but I increased her home Keppra back to her previously prescribed dose of 750 mg BID for now, patient does report missing her afternoon dose yesterday She is currently saturating well on home 3 LPM O2 Prior sleep study reviewed, recommended auto-BiPAP, order placed Pulmonary will continue to follow Thank you for allowing me to participate in the care of this patient, please feel free to reach out with any questions. Muriel Mckeon MD Pulmonary & Critical Care Medicine [facility] Images from the original note were not included. Pharmacy Managed Vancomycin Dosing Service Consult Note Consult Date: 07/07/24 Patient Name: Ana Lopes Allergies: Patient has no known allergies. Age: 79 y.o. Sex: female Estimated body mass index is 38.67 kg/m as calculated from the following: Height as of this encounter: 1.626 m (5' 4"). Weight as of this encounter: 102 kg (225 lb 5 oz). Lab Results Component Value Date CREATININE 1.00 07/07/2024 BUN 19 07/07/2024 WBC 10.9 (H) 07/07/2024 Calculated CrCl: 75.6 mL/min Consulted By: Dr. Pena Infectious Diagnosis: CAP (AUC Goal 400-600 mg/L*hr) Antimicrobials: Patient recently received an antibiotic (last 12 hours) Date/Time Action Medication Dose Rate 07/07/24 1756 New Bag vancomycin IVPB 1500 mg in 250 mL NS (premix) 1,500 mg 125 mL/hr 07/07/24 1649 New Bag piperacillin-tazobactam (Zosyn) 4,500 mg in sodium chloride 0.9 % 100 mL IVPB Mini-Bag Plus 4,500 mg 200 mL/hr Assessment/Plan: Doses, serum creatinine, and vancomycin levels interfaced automatically to [employer] and data has been analyzed and interpreted. Start Vancomycin 1250 mg Q 24 hours based on patient age, weight, renal function, and infectious diagnosis (12.3 mg/kg). Predicted AUC = 536 mg/L*hr (goal 400-600 mg/L*hr) Will assess level on 07-08-24399 and adjust as appropriate. Trend serum creatinine. Orders placed. Thank you for this consult. Please secure text or call with questions. DATE: 07/07/24 TIME: 9:49 PM Epi Parnell RPh Clinical Pharmacist Available via Secure Chat documented in this encounter [facility] 07-10-2024 Note Hospitalist Progress Note 07/10/2024 Subjective: Admit Date: 07/07/2024 PCP: Mayur Young Room#: [id number] A BRIEF HOSPITAL COURSE: Ana is a 79 year old female sent to ED from nursing facility. She was sent in with altered mental status. She was found down. She says she had a seizure but none witnessed or reported. She has some SOB and cough. No cp, n/v, f/c, dizziness Interval History: No overnight issues. Case and plan discussed with patient and bedside nurse. All questions answered. Adult diet Dysphagia - Soft and Bite Sized; 5 carb choices (75 gm/meal) 24HR INTAKE/OUTPUT: Intake/Output Summary (Last 24 hours) at 07/10/2024 0907 Last data filed at 07/09/2024 1751 Gross per 24 hour Intake 50 ml Output -- Net 50 ml Past Medical History: Past Medical History: Diagnosis Date Allergic rhinitis Anxiety COPD (chronic obstructive pulmonary disease) ([facility]) Debility Depression Dizziness DM2 (diabetes mellitus, type 2) ([facility]) DVT (deep venous thrombosis) ([facility]) GERD (gastroesophageal reflux disease) Hypercholesteremia Hypertension Lymphedema Migraine headache Morbid obesity (CMS/HCC) (HCC) Nephrolithiasis status post perc nephrolithotomy MARY (obstructive sleep apnea) Osteoarthrosis Pneumonia Seizures (CMS/HCC) ([facility]) LABS: CBC: Recent Labs 07/08/24 0515 07/09/24 0419 07/10/24 0549 WBC 9.1 9.3 8.8 RBC 4.19 3.85 3.91 HGB 12.4 11.6* 11.7 HCT 39.2 36.3 36.8 MCV 93.6 94.3 94.1 RDW 15.7* 15.8* 15.8* PLT 277 231 247 BMP: Recent Labs 07/08/24 0515 07/09/24 0419 07/10/24 0549 NA 139 138 139 K 4.1 3.9 3.9 CL 107 107 104 CO2 26 23 28 BUN 16 15 14 CREATININE 0.81 0.83 0.77 GLUCOSE 127* 106 120* CALCIUM 8.9 8.5* 9.0 ANIONGAP 6 8 7 LIVER PROFILE: Recent Labs 07/08/24 0515 07/09/2441807/10/24 0549 AST 21 21 18 ALT <6 <6 <6 BILITOT 0.6 0.5 0.4 ALKPHOS 79 77 78 PROT 6.6 6.5 6.7 PT/INR: No results for input(s): "PROTIME", "INR" in the last 72 hours. CARDIAC ENZYMES: No results for input(s): "TROPONINI" in the last 72 hours. Procalcitonin: Lab Results Component Value Date PROCAL 0.02 07/08/2024 COVID-19 PCR: No results for input(s): "COVID19" in the last 72 hours. Objective: Vitals: BP 110/56 (BP Location: Left arm, Patient Position: Lying) Pulse 81 Temp 36.3 ?C (97.4 ?F) (Temporal) Resp 14 Ht 5' 4" (1.626 m) Wt 225 lb (102 kg) SpO2 96% BMI 38.62 kg/m? Pulse Ox: SpO2 Av.7 % Min: 95 % Max: 99 % Supplemental O2: O2 Flow Rate (L/min): 2 L/min Physical Exam Vitals and nursing note reviewed. Constitutional: Appearance: Normal appearance. She is obese. HENT: Head: Normocephalic and atraumatic. Nose: Nose normal. Mouth/Throat: Mouth: Mucous membranes are moist. Eyes: Extraocular Movements: Extraocular movements intact. Conjunctiva/sclera: Conjunctivae normal. Pupils: Pupils are equal, round, and reactive to light. Cardiovascular: Rate and Rhythm: Normal rate and regular rhythm. Pulmonary: Effort: Pulmonary effort is normal. Breath sounds: Rales present. Abdominal: General: Bowel sounds are normal. Palpations: Abdomen is soft. Musculoskeletal: General: Normal range of motion. Cervical back: Normal range of motion. Skin: General: Skin is warm and dry. Neurological: General: No focal deficit present. Mental Status: She is alert and oriented to person, place, and time. Psychiatric: Mood and Affect: Mood normal. Behavior: Behavior normal. Thought Content: Thought content normal. Medications: Scheduled PRN aspirin, 81 mg, Oral, Daily atorvastatin, 80 mg, Oral, Daily cetirizine, 5 mg, Oral, Daily enoxaparin, 40 mg, SubCUTAneous, Daily furosemide, 20 mg, Oral, Daily Glycopyrrolate-Formoterol, 2 puff, Inhalation, BID guaiFENesin, 600 mg, Oral, BID influenza, 0.5 mL, IntraMUSCular, Prior to discharge insulin lispro, 0-12 Units, SubCUTAneous, TID WC And insulin lispro, 0-12 Units, SubCUTAneous, Nightly ipratropium-albuterol, 3 mL, Nebulization, 4x daily levETIRAcetam, 750 mg, Oral, BID piperacillin-tazobactam, 3,375 mg, IntraVENous, q8h vancomycin, 1,250 mg, IntraVENous, q24h PRN medications: acetaminophen OR acetaminophen, dextrose, dextrose, glucagon (rDNA), glucose, ondansetron ODT OR ondansetron, polyethylene glycol (PEG) 3350 Continuous Assessment Data: (CAT1) Reviewed 2 notes from different specialty or health system (each=1). (CAT1) Reviewed 2 labs/studies previously ordered by me not previously counted (each=1, panels count as 1). (CAT1) Ordered 2 new labs and/or studies (each=1, panels count as 1). (LOW: 2x CAT1 or independent historian MOD: 3x CAT1 or 1x CAT3 EXTENSIVE: 3x CAT1 and 1x CAT3) Acute, acute on chronic, unstable/uncontrolled chronic problems/diagnoses: Sepsis - resolved Pneumonia ?~no s/s of pna , neg urine antigens , neg respiratory panel , blood cultures negative x 48 hours , pulm (more content not included)... [facility] 07-09-2024 Note [facility] Respiratory Care Department Progress Note Comment or reasoning for refusal: Patient was seen in attempts to fulfill CPAP/BiPAP/AutoPAP order. Patient refused PAP therapy/study at this time. Patient was educated on medical need and reasoning for physician order to ensure patient was making an informed medical decision. All of the patient's questions were answered at this time and patient was informed that if the patient changes their mind regarding wearing PAP to hit their "call light" or inform their nurse to contact Respiratory. A second, consecutive night of refusing PAP therapy/study results in order completion in the EMR. If future CPAP/BiPAP/AutoPAP therapy or study is indicated please place another order in the EMR and the assigned Respiratory Therapist will reattempt to fulfill orders. Reason for refusal: doesnt want jose enrique Thank you for involving Respiratory in the care of this patient, [facility] 07-09-2024 Note Formatting of this n ote might be different from the original. S/W, ED bedded Return referral sent via [facility] to [facility] inquiring on needs to return. S/W/TCC team to follow. [facility] 07-09-2024 Note Formatting of this n ote might be different from the original. S/W, ED bedded Return referral sent via [facility] to [facility] inquiring on needs to return. S/W/TCC team to follow. [facility] 07-09-2024 Note S/W, ED bedded [facility] needs to [facility]. S/W/TCC team to follow. [facility] 07-09-2024 Note OCCUPATIONAL THERAPY [facility] Initial Evaluation Name/MRN: Ana Lopes ([id number]) Evaluation Date: 07/09/2024 Date of : 1945 Admission Date: 07/07/2024 2:12 PM Age: 79 y.o. Room/Bed: 35/35 Discharge Recommendation: Retirement Facility Equipment Needed: No Assessment IMPRESSION: Pt in 07/07/24 with c/o AMS, falls, potential seizure, and pneumonia. She was previously IND for ADLs, functional transfers / mobility with a FWW per pt report. She is currently contact-guard to min assist for functional transfers/mobility, max assist for lower body ADLs, and standby assist for seated upper body ADLs. No true loss of balance noted during out of activity at this time however increased instability with mild bilateral lower extremity buckling noted this date. She is limited by increased fatigue, weakness, and instability at this time. She would benefit from skilled OT services to address the below. Recommend plan discharge for SNF at this time. Admitting Diagnosis: Falls, potential seizure, AMS, pneumonia Performance Deficits /Impairments: Decreased Functional Mobility, Decreased ADL status, Decreased Strength, Decreased Endurance, Decreased Balance, and Decreased High Level IADLs Prognosis: Good Decision Making: Medium Complexity Subjective Pleasant and cooperative. Okay to see per RN. Agreeable to therapy evaluation. Pain: Pt denies any current pain. Past Medical History: Past Medical History: Diagnosis Date Allergic rhinitis Anxiety COPD (chronic obstructive pulmonary disease) ([facility]) Debility Depression Dizziness DM2 (diabetes mellitus, type 2) ([facility]) DVT (deep venous thrombosis) ([facility]) GERD (gastroesophageal reflux disease) Hypercholesteremia Hypertension Lymphedema Migraine headache Morbid obesity (CMS/HCC) (HCC) Nephrolithiasis status post perc nephrolithotomy MARY (obstructive sleep apnea) Osteoarthrosis Pneumonia Seizures (CMS/HCC) ([facility]) Past Surgical History: Past Surgical History: Procedure Laterality Date CHOLECYSTECTOMY 1991 EYE SURGERY 2006 orbital I and D KIDNEY STONE SURGERY 2011 right then left nephrolithotomy TONSILLECTOMY (HISTORICAL) Admission Diagnosis: Patient Active Problem List Diagnosis Date Noted Pneumonia due to infectious organism, unspecified laterality, unspecified part of lung 07/07/2024 Fungal skin infection 06/07/2015 Morbid obesity ([facility]) 03/04/2015 Seizures ([facility]) 03/04/2015 Dizziness 03/04/2015 DM2 (diabetes mellitus, type 2) ([facility]) 03/04/2015 Debility 03/04/2015 Hypertension 03/04/2015 Hypercholesteremia 03/04/2015 Lymphedema 03/04/2015 Nephrolithiasis 03/04/2015 Osteoarthrosis 03/04/2015 Migraine headache 03/04/2015 Anxiety 03/04/2015 Depression 03/04/2015 MARY (obstructive sleep apnea) 03/04/2015 COPD (chronic obstructive pulmonary disease) ([facility]) 03/04/2015 GERD (gastroesophageal reflux disease) 03/04/2015 Allergic rhinitis 03/04/2015 Medical Precautions: Droplet Proper PPE donned/doffed in accordance with facility standards. Fall Risk: Cherry Fall Risk Score: 75 (High Risk) Precautions/Restrictions: N/A Family/Caregiver Present: none Overall Cognitive Status: WFL Overall Orientation Status: Oriented x4 Social/Functional History Patient admitted from [facility] . Pt reports she has been there for 6 months and is going to soon be transitioning to Assisted Living at [facility]. Assistive Equipment: front wheeled walker and wheelchair - manual Prior Level of Function Prior Level of ADL Function: Independent Prior Level of Mobility: Independent; Device: Front wheeled walker and Wheelchair - manual FWW for short distances, W/c for longer distances. Prior Level of Transfers: Independent Objective ADLs Toileting: Max Assist Patient up on bedside commode upon arrival this date. Patient required max assist overall for toileting tasks at bedside commode level. Patient requires increased assist for MARIN care and clothing management this time. Heavy reliance on front wheel walker and bedside commode rails for stability and safety during static standing task. She fatigues quickly with out of bed activity and requires return to sitting for safety and activity tolerance. Respiratory therapy in room for breathing treatment following return to bed after toileting. Upper Extremity Assessment AROM: Exceptions: ~ 90 BUE shoulder flexion functionally observed PROM: Not assessed this session Strength: Exceptions: > +3/5 grossly observed with functional activity. Vision: not assessed this session Hearing: normal Bed Mobility Sit to supine: Mod Assist Scooting: Mod Assist Head of bed elevated. Denies distal positional changes. Patient up on bedside commode upon arrival. Mod assist overall for bilateral lower extremity management for return to supine. Increased reliance on bed rails this date. Transfers/Functional Mobility (more content not included)... [facility] 07-09-2024 Note PHYSICAL THERAPY [facility] Initial Evaluation Name/MRN: Ana Lopes ([id number]) Evaluation Date: 07/09/2024 Date of : 1945 Admission Date: 07/07/2024 2:12 PM Age: 79 y.o. Room/Bed: 35/35 Discharge Recommendation: Retirement Facility Other: TBD at [facility] Assessment IMPRESSION: Pt presents with decreased functional mobility, decreased strength, decreased safety awareness, decreased endurance and impaired balance. Pt has decreased standing balance, poor activity tolerance, decreased safety awareness and weakness requiring physical assist of 1 person in order to safely complete minimal OOB mobility placing her at a high risk of falling. Pt could benefit from skilled PT in order to address her decreased functional mobility, strength, balance and safety. Pt has medical history as listed below that that contributes to her clinical presentation. At baseline patient is functionally independent with transfers and short distance ambulation with FWW, uses wheelchair for longer distances. Currently patient is unsafe to return to her prior level of independence secondary to her increased need for assist and fall risks with mobility. Admitting Diagnosis: Pt admitted with altered mental status, fall, SOB, cough, possible seizure, chronic hypoxemic respiratory failure, acute on chronic HFpEF and pulmonary edema. Prognosis: good Performance Deficits /Impairments: Increased Pain, Decreased Functional Mobility, Decreased ADL status, Decreased Strength, Decreased Safety Awareness, Decreased Endurance, and Decreased Balance Decision Making: Medium Complexity Subjective Patient pleasant and agreeable to therapy session this date. Per RN patient okay for therapy. Observation: ED tele and O2 monitoring; incontinent of urine, O2 intact Pain: Lott-Sibley Pain Ratin = Hurts little more Pain Location: R LE Past Medical History: Past Medical History: Diagnosis Date Allergic rhinitis Anxiety COPD (chronic obstructive pulmonary disease) ([facility]) Debility Depression Dizziness DM2 (diabetes mellitus, type 2) ([facility]) DVT (deep venous thrombosis) ([facility]) GERD (gastroesophageal reflux disease) Hypercholesteremia Hypertension Lymphedema Migraine headache Morbid obesity ([facility]) ([facility]) Nephrolithiasis status post perc nephrolithotomy MARY (obstructive sleep apnea) Osteoarthrosis Pneumonia Seizures ([facility] [facility]) ([facility]) Past Surgical History: Past Surgical History: Procedure Laterality Date CHOLECYSTECTOMY 1991 EYE SURGERY 2005 orbital I and D KIDNEY STONE SURGERY 2011 right then left nephrolithotomy TONSILLECTOMY (HISTORICAL) Admission Diagnosis: Patient Active Problem List Diagnosis Date Noted Pneumonia due to infectious organism, unspecified laterality, unspecified part of lung 07/07/2024 Fungal skin infection 06/07/2015 Morbid obesity ([facility]) 03/04/2015 Seizures ([facility]) 03/04/2015 Dizziness 03/04/2015 DM2 (diabetes mellitus, type 2) ([facility]) 03/04/2015 Debility 03/04/2015 Hypertension 03/04/2015 Hypercholesteremia 03/04/2015 Lymphedema 03/04/2015 Nephrolithiasis 03/04/2015 Osteoarthrosis 03/04/2015 Migraine headache 03/04/2015 Anxiety 03/04/2015 Depression 03/04/2015 MARY (obstructive sleep apnea) 03/04/2015 COPD (chronic obstructive pulmonary disease) ([facility]) 03/04/2015 GERD (gastroesophageal reflux disease) 03/04/2015 Allergic rhinitis 03/04/2015 Medical Precautions: Droplet Proper PPE donned/doffed in accordance with facility standards. Fall Risk: Cherry Fall Risk Score: 75 (High Risk) Precautions/Restrictions: N/A Family/Caregiver Present: none Overall Cognitive Status: WFL Overall Orientation Status: Oriented x4 Vision: no visual deficits Hearing: normal Social/Functional History Patient admitted from [facility] . Pt reports she has been there for 6 months and is going to soon be transitioning to Assisted Living at [facility]. Assistive Equipment: front wheeled walker and wheelchair - manual Prior Level of Function Prior Level of ADL Function: Independent Prior Level of Mobility: Independent; Device: Front wheeled walker and Wheelchair - manual FWW for short distances, wheelchair for longer distances OOR Prior Level of Transfers: Independent Objective Lower Extremity Assessment AROM: WFL Strength: Pt demonstrates appropriate B LE and quad strength in order to safely participate in OOB mobility, generalized weakness noted Bed Mobility: Supine to sit: SBA Sit to supine: NT patient on BSC end of session Scooting: SBA Denies dizziness with positional changes. Increased time to complete with use of bed rails. Transfers Sit to stand: Contact Guard, to FWW from EOB Stand to sit: Contact Guard Denies dizziness on initial stance. Increased time to complete transitions and cues for hand placement on ascent. Ambulation Ambulation 1 Assistive device(s) used: Fr (more content not included)... [facility] 07-09-2024 Note Hospitalist Progress Note 07/09/2024 Subjective: Admit Date: 07/07/2024 PCP: Mayur Young Room#: 35/35 BRIEF HOSPITAL COURSE: Ana is a 79 year old female sent to ED from nursing facility. She was sent in with altered mental status. She was found down. She says she had a seizure but none witnessed or reported. She has some SOB and cough. No cp, n/v, f/c, dizziness. Will admit for further evaluation and management. Interval History: No overnight issues. She denies feeling short of breath. Upset she could not have a grilled cheese. She is on soft bite seized diet. Case and plan discussed with patient and bedside nurse. All questions answered. Adult diet Dysphagia - Soft and Bite Sized; 5 carb choices (75 gm/meal) 24HR INTAKE/OUTPUT: Intake/Output Summary (Last 24 hours) at 07/09/2024 0858 Last data filed at 07/08/2024 1338 Gross per 24 hour Intake 50 ml Output -- Net 50 ml Past Medical History: Past Medical History: Diagnosis Date Allergic rhinitis Anxiety COPD (chronic obstructive pulmonary disease) ([facility]) Debility Depression Dizziness DM2 (diabetes mellitus, type 2) ([facility]) DVT (deep venous thrombosis) ([facility]) GERD (gastroesophageal reflux disease) Hypercholesteremia Hypertension Lymphedema Migraine headache Morbid obesity ([facility]/HCC) ([facility]) Nephrolithiasis status post perc nephrolithotomy MARY (obstructive sleep apnea) Osteoarthrosis Pneumonia Seizures ([facility]) ([facility]) LABS: CBC: Recent Labs 07/07/24 1515 07/08/24 0515 07/09/24 0419 WBC 10.9* 9.1 9.3 RBC 4.98 4.19 3.85 HGB 14.9 12.4 11.6* HCT 46.3 39.2 36.3 MCV 93.0 93.6 94.3 RDW 15.5* 15.7* 15.8* PLT 321 277 231 BMP: Recent Labs 07/07/24 1515 07/08/24 0515 07/09/24 0419 NA 137 139 138 K 5.3* 4.1 3.9 CL 104 107 107 CO2 22* 26 23 BUN 19 16 15 CREATININE 1.00 0.81 0.83 GLUCOSE 205* 127* 106 CALCIUM 10.0 8.9 8.5* ANIONGAP 11 6 8 LIVER PROFILE: Recent Labs 07/07/24 1515 07/08/24 0515 07/09/24 0419 AST 34* 21 21 ALT 12 <6 <6 BILITOT 0.5 0.6 0.5 ALKPHOS 98 79 77 PROT 8.6* 6.6 6.5 PT/INR: No results for input(s): "PROTIME", "INR" in the last 72 hours. CARDIAC ENZYMES: No results for input(s): "TROPONINI" in the last 72 hours. Procalcitonin: Lab Results Component Value Date PROCAL 0.02 07/08/2024 COVID-19 PCR: No results for input(s): "COVID19" in the last 72 hours. Objective: Vitals: BP 96/50 Pulse 87 Temp 36.4 ?C (97.6 ?F) (Temporal) Resp 15 Ht 5' 4" (1.626 m) Wt 225 lb 5 oz (102 kg) SpO2 99% BMI 38.67 kg/m? Pulse Ox: SpO2 Av.2 % Min: 95 % Max: 100 % Supplemental O2: O2 Flow Rate (L/min): 3 L/min Physical Exam Constitutional: Appearance: Normal appearance. She is obese. HENT: Head: Normocephalic and atraumatic. Nose: Nose normal. Mouth/Throat: Mouth: Mucous membranes are moist. Eyes: Extraocular Movements: Extraocular movements intact. Conjunctiva/sclera: Conjunctivae normal. Pupils: Pupils are equal, round, and reactive to light. Cardiovascular: Rate and Rhythm: Normal rate and regular rhythm. Pulmonary: Effort: Pulmonary effort is normal. Breath sounds: Rales present. Abdominal: General: Bowel sounds are normal. Palpations: Abdomen is soft. Musculoskeletal: General: Normal range of motion. Cervical back: Normal range of motion. Right lower leg: Edema present. Left lower leg: Edema present. Skin: General: Skin is warm and dry. Neurological: General: No focal deficit present. Mental Status: She is alert and oriented to person, place, and time. Psychiatric: Mood and Affect: Mood normal. Behavior: Behavior normal. Thought Content: Thought content normal. Medications: Scheduled PRN aspirin, 81 mg, Oral, Daily atorvastatin, 80 mg, Oral, Daily cetirizine, 5 mg, Oral, Daily enoxaparin, 40 mg, SubCUTAneous, Daily furosemide, 20 mg, Oral, Daily Glycopyrrolate-Formoterol, 2 puff, Inhalation, BID guaiFENesin, 600 mg, Oral, BID influenza, 0.5 mL, IntraMUSCular, Prior to discharge insulin lispro, 0-12 Units, SubCUTAneous, TID WC And insulin lispro, 0-12 Units, SubCUTAneous, Nightly ipratropium-albuterol, 3 mL, Nebulization, 4x daily levETIRAcetam, 750 mg, Oral, BID piperacillin-tazobactam, 3,375 mg, IntraVENous, q8h vancomycin, 1,250 mg, IntraVENous, q24h PRN medications: acetaminophen OR acetaminophen, dextrose, dextrose, glucagon (rDNA), glucose, ondansetron ODT OR ondansetron, polyethylene glycol (PEG) 3350 Continuous Assessment Data: (CAT1) Reviewed 3 or more notes from different specialty or health system (each=1). (CAT1) Reviewed 3 or more labs/studies ordered by another provider not previously counted (each=1, panels count as 1). (CAT1) Ordered 2 new labs and/or studies (each=1, panels count as 1). (LOW: 2x CAT1 or independent historian MOD: 3x CAT1 or 1x CAT3 EXTENSIVE: 3x CAT1 and 1x CAT3) Acute, acute on chronic, unstable/uncontro (more content not included)... [facility] 07-09-2024 Plan of care note Problem: Knowledge Deficit Goal: Patient/family/caregiver demonstrates understanding of disease process, treatment plan, medications, and discharge instructions Outcome: Progressing Problem: Potential for Compromised Skin Integrity Goal: Skin Integrity is Maintained or Improved Outcome: Progressing Flowsheets (Taken 07/09/2024 0104) Skin integrity is maintained or improved: Assess and monitor skin integrity Keep skin clean and dry Identify patients at risk for skin breakdown on admission and per policy Problem: Urinary Incontinence Goal: Perineal skin integrity is maintained or improved Flowsheets (Taken 07/09/2024103) Perineal skin integrity is maintained or improved: Assess genitourinary system, perineal skin, labs (urinalysis), and history of incontinence to include past management, aggravating, and alleviating factors Keep skin clean and dry [facility] 07-08-2024 Emergency department Note Requested sputum sample from pt. Pt states she is unable to cough up any sputum at this time [facility] 07-08-2024 Emergency department Note Requested sputum sample from pt. Pt states she is unable to cough up any sputum at this time Secure chat with pharmacist for retiming of vancomycin due to pt being difficult IV access and only having one PIV with zosyn running which is not compatible with vancomycin per lexicomp Meal tray ordered Meal tray still not arrived. Called dietary and reordered tray. Per dietary pt was showing up in ED room 24. Dietary updated pt room on their end and will be delivering tray shortly. Meal tray ordered Called lab to see if pt urine sample is available for legionella add-on. Pt arrives via EMS after an unwitnessed fall at [facility]. Per EMS, nursing staff found pt on the floor by her bed. Per EMS, pt states she "slid out of bed". Nursing staff also reports periods of unresponsiveness. Pt is normally A&O x4, was disoriented per nursing staff. Pt unable to recall her birthday upon arrival to the ED. Denies pain. 2L NC at baseline. 85% SpO2 upon EMS arrival. History of seizures. [facility] ED EMERGENCY DEPARTMENT ENCOUNTER Pt Name: Ana Lopes Birthdate 1945 Date of evaluation: 07/07/2024 Provider: Selwyn Lai MD CHIEF COMPLAINT Chief Complaint Patient presents with Altered Mental Status Fall Unwitnessed fall, found by [facility] staff HISTORY OF PRESENT ILLNESS (Location/Symptom, Timing/Onset,Context/Setting, Quality, Duration, Modifying Factors, Severity) Note limiting factors. Ana Lopes is a 79 y.o. female who presents to the emergency department patient presents with altered mental status. She said she lowered her self to the ground. She has history of seizures. She has had cough congestion. Patient overall poor historian. By squad. Sent in from [facility]. HPI Historian is the patient Nurse's notes for past medical history, surgical history, social history were reviewed. Medications and allergies reviewed. PAST MEDICAL HISTORY Past Medical History: Diagnosis Date Allergic rhinitis Anxiety COPD (chronic obstructive pulmonary disease) ([facility]) Debility Depression Dizziness DM2 (diabetes mellitus, type 2) ([facility]) DVT (deep venous thrombosis) ([facility]) GERD (gastroesophageal reflux disease) Hypercholesteremia Hypertension Lymphedema Migraine headache Morbid obesity (CMS/HCC) (HCC) Nephrolithiasis status post perc nephrolithotomy MARY (obstructive sleep apnea) Osteoarthrosis Pneumonia Seizures (CMS/HCC) ([facility]) SURGICALHISTORY Past Surgical History: Procedure Laterality Date CHOLECYSTECTOMY 1991 EYE SURGERY 2005 orbital I and D KIDNEY STONE SURGERY 2012 right then left nephrolithotomy TONSILLECTOMY (HISTORICAL) CURRENT MEDICATIONS Previous Medications No medications on file Patient has no known allergies. FAMILY HISTORY Family History Problem Relation Name Age of Onset Dementia Mother SOCIAL HISTORY Social History Socioeconomic History Marital status: Tobacco Use Smoking status: Former Smokeless tobacco: Never Tobacco comments: Quit smoking: quit in highschool Substance and Sexual Activity Alcohol use: No Alcohol/week: 0.0 standard drinks of alcohol Drug use: No Social Drivers of Health Financial Resource Strain: Low Risk (05/21/2023) [facility], [facility] Overall Financial Resource Strain (CARDIA) Difficulty of Paying Living Expenses: Not very hard Food Insecurity: Patient Declined (12/29/2023) Received from [facility] Hunger Vital Sign Worried About Running Out of Food in the Last Year: Patient declined Ran Out of Food in the Last Year: Patient declined Transportation Needs: Patient Declined (12/29/2023) Received from [facility] PRAPARE - Transportation Lack of Transportation (Medical): Patient declined Lack of Transportation (Non-Medical): Patient declined Housing Stability: Patient Declined (12/29/2023) Received from [facility] Housing Stability Vital Sign Unable to Pay for Housing in the Last Year: Patient declined Unstable Housing in the Last Year: Patient declined SCREENINGS PHYSICAL EXAM (up to 7 for level 4, 8 or more for level 5) @EDTRIAGEVSS@ Appropriate PPE including n 95, gown, gloves, goggles where worn when appropriate with this patient. Physical Exam Vital signs reviewed general: Alert and oriented 3 head: Atraumatic, no cephalhematoma eyes: Equal round reactive to light and accommodating, pupils are equal, round and reactive to light and accommodation oropharynx: Clear and well hydrated neck: Supple heart: Regular rate and rhythm, no murmurs lungs: Coarse breath sounds slightly diminished bilaterally abdomen: Soft nontender, positive bowel sounds, no peritoneal findings. Extremities: Moving all fours, no tenderness. Normal capillary refill. Skin: No rash or lesions -to the exposed skin neurologically: Alert and oriented 3, cranial nerves grossly intact, strength diffusely weak but no focal weakness, sensation, intact. NIH equals 0 DIAGNOSTIC RESULTS RADIOLOGY: Interpretation per the Radiologist below, if availableat the time of this note: CT head wo IV contrast Final Result No CT evidence of an acute intracranial abnormality. Chronic parenchymal changes as described. Report Dictated on Electronically Signed By: Gerard An MD Electronically Signed Date/Time: 07/07/2024 4:10 PM EST XR chest 1 view Final Result Mild interstitial infiltrates bilaterally may be due to edema or interstitial pneumonia. Report Dictated on Electronically Signed By: Dawood Cosme DO Electronically Signed Date/Time: 07/07/2024 3:37 PM EST ED BEDSIDE ULTRASOUND: Performed by ED Physician - none LABS: Labs Reviewed COMPREHENSIVE METABOLIC PANEL - Abnormal Result Value SODIUM 137 POTASSIUM 5.3 (*) CHLORIDE 104 CARBON DIOXIDE 22 (*) ANION GAP 11 UREA NITROGEN 19 CREATININE 1.00 GLUCOSE 205 (*) CALCIUM 10.0 AST (SGOT) 34 (*) ALT 12 ALKALINE PHOSPHATASE 98 ALBUMIN 3.4 BILIRUBIN, TOTAL 0.5 TOTAL PROTEIN 8.6 (*) eGFR 58.1 (*) HIGH SENSITIVITY TROPONIN, SERIAL BASELINE - Abnormal Troponin HS, Serial Baseline 45 (*) MAGNESIUM - Abnormal MAGNESIUM 1.5 (*) Narrative: Higher values can be expected in females during menses. CBC WITH AUTO DIFFERENTIAL - Abnormal Auto WBC 10.9 (*) RBC 4.98 Hemoglobin 14.9 Hematocrit 46.3 MCV 93.0 MCH 29.9 MCHC 32.2 RDW 15.5 (*) Platelets 321 MPV 9.4 nRBC 0.0 Neutrophils Relative 69.5 Lymphocytes Relative 20.1 Monocytes Relative 5.2 Eosinophils Relative 4.0 Basophils Relative 0.7 Immature Grans % 0.5 Neutrophils Absolute 7.6 (*) Lymphocytes Absolute 2.2 Monocytes Absolute 0.6 Eosinophils Absolute 0.4 Basophils Absolute 0.1 Immature Grans Absolute 0.1 (*) LACTIC ACID WITH REFLEX - Abnormal LACTIC ACID 2.9 (*) COMPLETE URINALYSIS - Abnormal Color, Urine Yellow Clarity, Urine Cloudy (*) pH, Urine 5.0 Leukocytes, Urine 500 (*) Nitrite, Urine Positive (*) Protein, Urine Negative Glucose, Urine Normal Bilirubin, Urine Negative Ketones, Urine Negative Urobilinogen, Urine Normal Blood, Urine Negative RBC, Urine 3-5 (*) WBC, Urine 51-100 (*) Squamous Epithelial, Urine 0-2 Bacteria, Urine Many (*) Mucus, Urine Few Hyaline Casts, Urine 3-5 (*) SPECIFIC GRAVITY OF URINE (NUMERIC) 1.014 HIGH SENSITIVITY TROPONIN, SERIAL, SECOND TEST - Abnormal Troponin HS, Serial Second 33 (*) Troponin HS Delta, Baseline to Second -12 SARS-COV-2, FLU A/B, AND RSV COMBO - Normal SARS-CoV-2 Not Detected Respiratory Syncytial Virus Not Detected Influenza A Not Detected Influenza B Not Detected Narrative: Methodology: real-time, RT-PCR The SARS-CoV-2, Flu A/B, and RSV Combo assay is intended for in vitro diagnostic use under the FDA Emergency Use Authorization (EUA). This test has not been FDA cleared or approved. In compliance with this authorization, please visit www.fda.gov/media/872560/download or www.fda.gov/media/241085/download to access the applicable information sheets. BLOOD CULTURE BLOOD CULTURE URINE CULTURE COMPLETE URINALYSIS WITH REFLEX TO CULTURE Narrative: The following orders were created for panel order Urinalysis complete with reflex to Culture. Procedure Abnormality Status --------- ------ Complete Urinalysis[[id number]] Abnormal Final result Please view results for these tests on the individual orders. LEVETIRACETAM LEVEL ([facility]) LACTIC ACID WITH REFLEX All other labs were within normal range or not returned as of thisdictation. EMERGENCYDEPARTMENT COURSE and DIFFERENTIAL DIAGNOSIS/MDM: Vitals: Vitals: 07/07/24 1733 07/07/24 1802 07/07/24 18407/07/241956 BP: 100/69 97/60 Pulse: 108 97 Resp: 25 (!) 28 20 Temp: 37.6 C (99.6 F) TempSrc: Rectal SpO2: 99% 99% Weight: Height: Medical Decision Making EMERGENCY DEPARTMENT COURSE and DIFFERENTIAL DIAGNOSIS/MDM: Vitals: Vitals: 07/07/24 1733 07/07/24 1802 07/07/24 18407/07/241956 BP: 100/69 97/60 Pulse: 108 97 Resp: 25 (!) 28 20 Temp: 37.6 C (99.6 F) TempSrc: Rectal SpO2: 99% 99% Weight: Height: The patient presented with a chief complaint of with altered mental status fall cough. The differential diagnosis associated with this patient's presentation includes pneumonia stroke seizure respiratory difficulty ACS COVID dehydration. Our workup consisted of ordering/reviewing blood work CTA chest x-ray. Patient given 5 and a saline bolus. Lactic acid 2.9. This will be repeated. She does have pneumonia. Given Zosyn and vancomycin. I was at bedside with Dr. Pena and we will get a repeat lactic acid not give her further fluids. This has respiratory rate of 28 but she is really breathing 20 here. Hospitalist will follow-up on the repeat lactic acid. Patient will be admitted. In addition pneumonia patient does have UTI. Urine sent for culture. CORE MEASURE DATA SIRS Criteria Sepsis Criteria Severe Sepsis Criteria Septic Shock Criteria Must meet 2: [] Temperature > 100.4 F (38 C) or < 96.8 F (36 C) [] HR > 90 [] RR > 20 [] WBC > 12 or < 4 or 10% bands Must be confirmed or suspected to move forward with diagnosis of sepsis. Must select at least one: [] Bacterial Infection Confirmed or Suspected. [] Viral Infection Confirmed or Suspected. [] No infection present. Patient does not meet criteria for Sepsis. Must meet 1: [x] Lactate > 2 or [] Signs of Organ Dysfunction: - SBP < 90 or MAP < 65 - Altered mental status - Creatinine > 2 or increased from baseline - Urine Output < 0.5 ml/kg/hr - Bilirubin > 2 - INR > 1.5 - Platelets < 100,000 - Acute Respiratory Failure as evidenced by new need for NIPPV or mechanical ventilation [] No criteria met for Severe Sepsis. Must meet 1: [] Lactate = or > 4 or [] SBP < 90 or MAP < 65 for at least two readings in the first hour after fluid bolus administration [] No criteria met for Septic Shock. No data found. Recent Labs 07/07/24 1515 WBC 10.9* LACTATE 2.9* CREATININE 1.00 BILITOT 0.5 PLT 321 Sepsis Identified at 1515 . Fluid Resuscitation Rational: Due to heart failure, ordered less than 30cc/kg actual body weight. Actual fluid amount given: 500 mL Infection Source: Pulmonary and UTI Reassessment Exam: Not applicable. Patient does not have Septic Shock. Selwyn Lai MD ED Course as of 07/07/241999Jul 07, 20241948 Patient does have UTI. Initial troponin 40 5 repeat is 33. COVID RSV influenza negative. Normal sodium. Potassium 5.3. Lactic acid is 2.9. White blood count 10.9. Patient given IV Zosyn patient given 500 normal saline. Patient given vancomycin. [GS] ED Course User Index [GS] Selwyn Lai MD Diagnoses as of 07/07/241999 Pneumonia due to infectious organism, unspecified laterality, unspecified part of lung Fall, initial encounter Altered mental status, unspecified altered mental status type Sepsis, due to unspecified organism, unspecified whether acute organ dysfunction present (HCC) Urinary tract infection with hematuria, site unspecified Diagnostics considered but not indicated based on history, physical, testing: CT of the chest but not clinical indicated based on history and physical External records reviewed: Outpatient records reviewed patient history acute kidney injury admission 12/27/2023. Has had follow-up with family medicine include clinic 04/14/2024 referral of oxygen order. Radiologic diagnostics interpreted by me: film images such as CT, Ultrasound and MRI are read by the radiologist. Plain radiographic images are visualized and preliminarily interpreted by the emergency physician with the below findings: EKG(s) EKG per my interpretation sinus rhythm left pulm branch block irregular baseline no acute ST elevation or ischemic findings. Xray(s) chest x-ray shows pneumonia per my interpretation CT scan(s) CT of the head no acute process. Discussions with other clinicians: Dr. Pena hospitalist agrees to admit Chronic conditions impacting care: Seizures dizziness diabetes lymphedema GERD Social determinants of health affecting care: In [facility] Shared decision making: Patient agrees to treatment plan ED Medications managed: Medications sodium chloride 0.9 % infusion (has no administration in time range) acetaminophen (Tylenol) tablet 650 mg (650 mg Oral Given 07/07/24 165) sodium chloride 0.9 % bolus 500 mL (0 mL IntraVENous Stopped 07/07/241743) piperacillin-tazobactam (Zosyn) 4,500 mg in sodium chloride 0.9 % 100 mL IVPB Mini-Bag Plus (0 mg IntraVENous Stopped 07/07/241743) vancomycin IVPB 1500 mg in 250 mL NS (premix) (1,500 mg IntraVENous New Bag 07/07/24 175) Prescription drugs prescribed: CRITICAL CARE TIME Total Critical Care time was at least 35 minutes, excluding separately reportable procedures. There was a high probability of clinically significant/life threatening deterioration in the patient's condition which required my urgentintervention. PROCEDURES: Unless otherwise noted below, none Procedures IMPRESSION 1. Pneumonia due to infectious organism, unspecified laterality, unspecified part of lung 2. Fall, initial encounter 3. Altered mental status, unspecified altered mental status type 4. Sepsis, due to unspecified organism, unspecified whether acute organ dysfunction present (HCC) 5. Urinary tract infection with hematuria, site unspecified DISPOSITION/PLAN DISPOSITION Admit 07/07/2024 05:14:49 PM PATIENT REFERRED TO: No follow-up provider specified. DISCHARGE MEDICATIONS: New Prescriptions No medications on file @[facility]([id number]:LAST:1)@ (Comment: Please notethis report has been produced using speech recognition software and may contain errors related to that system including errors in grammar, punctuation, and spelling, as well as words and phrases that may be inappropriate.If there is any questions or concerns please feel free to contact the dictating provider for clarification). Selwyn Lai MD (electronically signed) Attending Emergency Physician Selwyn Lai MD 07/07/241999 documented in this encounter [facility] 07-08-2024 Emergency department Note Secure chat with pharmacist for retiming of vancomycin due to pt being difficult IV access and only having one PIV with zosyn running which is not compatible with vancomycin per lexicomp [facility] 07-08-2024 Emergency department Note Meal tray ordered [facility] 07-08-2024 Emergency department Note Meal tray still not arrived. Called dietary and reordered tray. Per dietary pt was showing up in ED room 24. Dietary updated pt room on their end and will be delivering tray shortly. [facility] 07-08-2024 Note Hospitalist Progress Note 07/08/2024 Subjective: Admit Date: 07/07/2024 PCP: Mayur Young Room#: 35/35 Interval History: Doing better overall. Still very weak. SOB better. More alert. No cp, cough, n/v, f/c. Tolerating diet. Case and plan discussed with patient. All questions answered. Adult diet Dysphagia - Soft and Bite Sized; 5 carb choices (75 gm/meal) 24HR INTAKE/OUTPUT: Intake/Output Summary (Last 24 hours) at 07/08/2024 1251 Last data filed at 07/08/2024 0449 Gross per 24 hour Intake 900 ml Output 200 ml Net 700 ml Past Medical History: Past Medical History: Diagnosis Date Allergic rhinitis Anxiety COPD (chronic obstructive pulmonary disease) ([facility]) Debility Depression Dizziness DM2 (diabetes mellitus, type 2) ([facility]) DVT (deep venous thrombosis) ([facility]) GERD (gastroesophageal reflux disease) Hypercholesteremia Hypertension Lymphedema Migraine headache Morbid obesity (CMS/HCC) ([facility]) Nephrolithiasis status post perc nephrolithotomy MARY (obstructive sleep apnea) Osteoarthrosis Pneumonia Seizures ([facility]/HCC) ([facility]) LABS: CBC: Recent Labs 07/07/24 1515 07/08/24 0515 WBC 10.9* 9.1 RBC 4.98 4.19 HGB 14.9 12.4 HCT 46.3 39.2 MCV 93.0 93.6 RDW 15.5* 15.7* PLT 321 277 BMP: Recent Labs 07/07/24 1515 07/08/24 0515 NA 137 139 K 5.3* 4.1 CL 104 107 CO2 22* 26 BUN 19 16 CREATININE 1.00 0.81 GLUCOSE 205* 127* CALCIUM 10.0 8.9 ANIONGAP 11 6 LIVER PROFILE: Recent Labs 07/07/24 1515 07/08/24 0515 AST 34* 21 ALT 12 <6 BILITOT 0.5 0.6 ALKPHOS 98 79 PROT 8.6* 6.6 PT/INR: No results for input(s): "PROTIME", "INR" in the last 72 hours. CARDIAC ENZYMES: No results for input(s): "TROPONINI" in the last 72 hours. Procalcitonin: Lab Results Component Value Date PROCAL 0.02 07/08/2024 COVID-19 PCR: No results for input(s): "COVID19" in the last 72 hours. Objective: Vitals: BP 112/55 (BP Location: Left arm, Patient Position: Sitting) Pulse 85 Temp 36.3 ?C (97.4 ?F) (Temporal) Resp 19 Ht 5' 4" (1.626 m) Wt 225 lb 5 oz (102 kg) SpO2 98% BMI 38.67 kg/m? Pulse Ox: SpO2 Av % Min: 87 % Max: 100 % Supplemental O2: O2 Flow Rate (L/min): 3 L/min Physical Exam Vitals and nursing note reviewed. Constitutional: General: She is not in acute distress. Appearance: She is obese. HENT: Head: Normocephalic. Mouth/Throat: Pharynx: Oropharynx is clear. Eyes: Extraocular Movements: Extraocular movements intact. Cardiovascular: Rate and Rhythm: Normal rate and regular rhythm. Pulses: Normal pulses. Heart sounds: Murmur heard. Pulmonary: Effort: Pulmonary effort is normal. Breath sounds: Rhonchi and rales present. Abdominal: General: Bowel sounds are normal. There is no distension. Palpations: Abdomen is soft. Tenderness: There is no abdominal tenderness. Musculoskeletal: Cervical back: Normal range of motion. Right lower leg: Edema present. Left lower leg: Edema present. Skin: General: Skin is dry. Capillary Refill: Capillary refill takes less than 2 seconds. Neurological: General: No focal deficit present. Mental Status: She is alert and oriented to person, place, and time. Psychiatric: Mood and Affect: Mood normal. Medications: Scheduled PRN aspirin, 81 mg, Oral, Daily enoxaparin, 40 mg, SubCUTAneous, Daily guaiFENesin, 600 mg, Oral, BID influenza, 0.5 mL, IntraMUSCular, Prior to discharge insulin lispro, 0-12 Units, SubCUTAneous, TID WC And insulin lispro, 0-12 Units, SubCUTAneous, Nightly ipratropium-albuterol, 3 mL, Nebulization, 4x daily levETIRAcetam, 750 mg, Oral, BID piperacillin-tazobactam, 3,375 mg, IntraVENous, q8h vancomycin, 1,250 mg, IntraVENous, q24h PRN medications: acetaminophen OR acetaminophen, dextrose, dextrose, glucagon (rDNA), glucose, ondansetron ODT OR ondansetron, polyethylene glycol (PEG) 3350 Continuous Assessment Altered mental status Fall Possible seizure Severe sepsis at 15:15 in the ED Pneumonia Lactic acidosis COPD HFpEF MARY Chronic respiratory failure CHB Leukocytosis Hyperkalemia HTN DM2 Seizure disorder GERD Hyperlipidemia Class 3 obesity Plan Continue to monitor on telemetry, continue oxygen and aerosols and IV antibiotics, Pulmonology following, follow up cultures, I/Os and daily weights. Follow up echocardiogram, diurese, continue IS, POCT, SS insulin, continue PT/OT/SENIOR RADIATION THERAPIST, adjust diet, follow up labs, follow up BP, continue keppra, discharge planning, see orders. - am labs, replace lytes prn - PT/OT/CM/SW - delirium precautions: increase activity - DVT prophylaxis: enoxaparin and encourage ambulation Advance Directive: Full Code Anticipated Discharge - Date - 07/10-07/12 - Location - Skilled Facility - Pending the following - clinical improvement, completion of work up and when OK with Pulmonology Total time spent (which include face to face and non face to (more content not included)... [facility] 07-08-2024 Emergency department Note Meal tray ordered [facility] 07-08-2024 Consult note Associated Order (s): IP CONSULT TO PULMONOLOGY Images from the original note were not included. [facility] Pulmonary Medicine [address] [place], [place] [id number] [id number] 1945 Date of Admission - 07/07/2024 2:12 PM Date of Evaluation - 07/08/2024 Room - Hospital Day - 1 Consulting - Selwyn Lai MD;[place] PCP - Mayur Young Reason for Consult SOB/cough/hx COPD/MARY History of Present Illness Ana Lopes is a 79 y.o. female admitted for possible seizure. Patient has a past medical history of: - seizures on Keppra - CHB s/p PPM - reported COPD on Anoro - chronic hypoxemic respiratory failure on 2-3 LPM - prior tobacco abuse - obesity class II - MARY, not currently on PAP therapy Patient is new to the [facility] pulmonary service, patient has never been evaluated by a supervisor patching in the past. She was given a diagnosis of COPD, currently uses Anoro, but she does not remember the names of her inhalers. She was admitted to [facility] from [facility] in [place] 07/07/24 after she was found unresponsive in bed, unclear if she had a true seizure. Patient reports missing her afternoon dose of Keppra yesterday, she also states dose was reduced from 750 BID to 500 BID recently. She currently feels back to baseline, but she does endorse worsening dyspnea compared to baseline along with associated dry cough. Saturating well on 3 LPM O2. She denies fever, chills, chest pain, wheezing, orthopnea, hemoptysis, abdominal pain, nausea, vomiting, diarrhea, constipation, lightheadedness, dizziness, dysuria, hematuria, melena, hematochezia, leg pain, leg swelling. She endorses a smoking history but cannot tell me when she started or quit, just states she stopped "a long time ago." She is hemodynamically stable and in no acute distress. Active Hospital Problem List Patient Active Problem List Diagnosis Morbid obesity (HCC) Seizures (HCC) Dizziness DM2 (diabetes mellitus, type 2) ([facility]) Debility Fungal skin infection Hypertension Hypercholesteremia Lymphedema Nephrolithiasis Osteoarthrosis Migraine headache Anxiety Depression MARY (obstructive sleep apnea) COPD (chronic obstructive pulmonary disease) (HCC) GERD (gastroesophageal reflux disease) Allergic rhinitis Pneumonia due to infectious organism, unspecified laterality, unspecified part of lung Medical History Past Medical History Past Medical History: Diagnosis Date Allergic rhinitis Anxiety COPD (chronic obstructive pulmonary disease) (HCC) Debility Depression Dizziness DM2 (diabetes mellitus, type 2) (HCC) DVT (deep venous thrombosis) (HCC) GERD (gastroesophageal reflux disease) Hypercholesteremia Hypertension Lymphedema Migraine headache Morbid obesity (CMS/HCC) (HCC) Nephrolithiasis status post perc nephrolithotomy MARY (obstructive sleep apnea) Osteoarthrosis Pneumonia Seizures (CMS/HCC) (HCC) Past Surgical History Past Surgical History: Procedure Laterality Date CHOLECYSTECTOMY 1991 EYE SURGERY 2005 orbital I and D KIDNEY STONE SURGERY 2011 right then left nephrolithotomy TONSILLECTOMY (HISTORICAL) Social History Social History Socioeconomic History Marital status: Spouse name: Not on file Number of children: Not on file Years of education: Not on file Highest education level: Not on file Occupational History Not on file Tobacco Use Smoking status: Former Smokeless tobacco: Never Tobacco comments: Quit smoking: quit in highschool Substance and Sexual Activity Alcohol use: No Alcohol/week: 0.0 standard drinks of alcohol Drug use: No Sexual activity: Not on file Other Topics Concern Not on file Social History Narrative Not on file Social Drivers of Health Financial Resource Strain: Low Risk (05/21/2023) Received from [facility], [facility] Overall Financial Resource Strain (CARDIA) Difficulty of Paying Living Expenses: Not very hard Food Insecurity: Patient Declined (12/29/2023) Received from [facility] Hunger Vital Sign Worried About Running Out of Food in the Last Year: Patient declined Ran Out of Food in the Last Year: Patient declined Transportation Needs: Patient Declined (12/29/2023) Received from [facility] PRAPARE - Transportation Lack of Transportation (Medical): Patient declined Lack of Transportation (Non-Medical): Patient declined Physical Activity: Not on file Stress: Not on file Social Connections: Not on file Intimate Partner Violence: Not on file Housing Stability: Patient Declined (12/29/2023) Received from [facility] Housing Stability Vital Sign Unable to Pay for Housing in the Last Year: Patient declined Number of Places Lived in the Last Year: Not on file Unstable Housing in the Last Year: Patient declined Family History Family History Problem Relation Name Age of Onset Dementia Mother Immunization History Immunization History Administered Date(s) Administered DTaP 07/07/2014 Influenza, Unspecified 05/26/2015 Influenza, injectable, quadrivalent 04/10/2016, 04/09/2017 Pneumococcal Conjugate PCV 13 01/22/2017 Pneumococcal Polysaccharide PPSV23 10/11/2015 Medications Current Medications enoxaparin, 40 mg, SubCUTAneous, Daily guaiFENesin, 600 mg, Oral, BID influenza, 0.5 mL, IntraMUSCular, Prior to discharge insulin lispro, 0-12 Units, SubCUTAneous, TID WC And insulin lispro, 0-12 Units, SubCUTAneous, Nightly ipratropium-albuterol, 3 mL, Nebulization, 4x daily piperacillin-tazobactam, 3,375 mg, IntraVENous, q8h vancomycin, 1,250 mg, IntraVENous, q24h PRN Mediations PRN medications: acetaminophen OR acetaminophen, dextrose, dextrose, glucagon (rDNA), glucose, ondansetron ODT OR ondansetron, polyethylene glycol (PEG) 3350 IV Drips/Infusions Home Medications No current outpatient medications Allergies No Known Allergies Review of Systems General Denies any fever or chills HEENT Denies any diplopia, tinnitus or vertigo Resp See HPI Cardiac Denies any chest pain, palpitations, claudication or edema GI Denies any melena, hematochezia, hematemesis or pyrosis Denies any frequency, urgency, hesitancy or incontinence Heme Denies bruising or bleeding easily Neuro Denies any focal motor or sensory deficits Psychiatric Denies anxiety, depression, suicidal ideation Skin Denies rashes, itching, open sores Vitals height is 5' 4" (1.626 m) and weight is 225 lb 5 oz (102 kg). Her temporal temperature is 36.3 C (97.4 F). Her blood pressure is 122/53 and her pulse is 43 (abnormal). Her respiration is 18 and oxygen saturation is 95%. Body mass index is 38.67 kg/m . 24 Hour intake and output Intake/Output Summary (Last 24 hours) at 07/08/2024 0911 Last data filed at 07/08/2024 0449 Gross per 24 hour Intake 900 ml Output 200 ml Net 700 ml Wt Readings from Last 3 Encounters: 07/07/24 225 lb 5 oz (102 kg) Physical Exam General appearance: Awake, alert, no acute distress. On 3 liters/min NC. HEENT: Normocephalic, atraumatic. Pupils equil and round, External ear normal, conjunctivae normal, negative for scleral icterus. No congestion. Mallampati 3. Neck: ROM normal, supple, trachea midline. No lymphadenopathy Cardiovascular: Regular rate and rhythm. Heart sounds normal. Negative for murmur, friction rub, or gallop. Pulmonary: Effort normal, no respiratory distress. No stridor. Diffuse crackles, no wheezing. Abdomen: Soft, non distended, non tender, bowel sounds normal. No palpable masses. No hepatomegaly Musculoskeletal: ROM normal, Negative for swelling, tenderness or deformity. Skin: Warm, dry. Skin color, texture, turgor normal. Negative for rashes or lesions. Extremities: No clubbing, cyanosis, or extremity edema Neurological: No focal deficits. Alert and oriented x3. Lymphatics: No cervical or axillary lymphadenopathy Psychiatric: Mood, behavior, thought content normal. Cooperative with exam. Labs CBC Results from last 7 days Lab Units 07/08/24 0515 WBC AUTO 10*3/uL 9.1 HEMOGLOBIN g/dL 12.4 HEMATOCRIT % 39.2 PLATELETS 10*3/uL 277 BMP: Results from last 7 days Lab Units 07/08/24 0515 07/07/24 1515 SODIUM mmol/L 139 137 POTASSIUM mmol/L 4.1 5.3* CHLORIDE mmol/L 107 104 CO2 mmol/L 26 22* BUN mg/dL 16 19 CREATININE mg/dL 0.81 1.00 GLUCOSE mg/dL 127* 205* CALCIUM mg/dL 8.9 10.0 ABG: LIVER PROFILE Results from last 7 days Lab Units 07/08/24 0515 07/07/24 1515 ALK PHOS U/L 79 98 BILIRUBIN TOTAL mg/dL 0.6 0.5 PROTEIN TOTAL g/dL 6.6 8.6* ALT U/L <6 12 AST U/L 21 34* INR PTT No results found for: "PTT" Cultures N/A Pulmonary Function Tests (PFT's) PFT (05/22/21) - Media tab Absolute Value % Predicted Z-score FEV1/FVC 93% FEV1 0.94 44 FVC 1.01 36 TLC RV/TLC DLCO My personal interpretation: Spirometry shows no overt airflow obstruction. Reduction in vital capacity could be due to restriction or air trapping, but there are no lung volumes. Sleep History Sleep study 04/08/2019 1. Moderate obstructive sleep apnea. Respiratory events were associated with oxygen desaturations to a parth of 86.0%. This apnea-hypopnea index (AHI) may be underestimated due to the absence of recorded REM sleep in the baseline portion of the study. 2. At a Bilevel PAP setting of 16/11 cmH2O, during which sleep was recorded in the supine position, the overall apnea-hypopnea index (AHI) was normalized, snoring was eliminated, and oxygen saturation was maintained above 90%. HOWEVER, during this study, the REM related apnea-hypopnea index was not normalized and remained in the severe range on pressure settings as high as 14/9 cmH2O. 3. Abnormal sleep architecture likely due to respiratory events, PAP titration, and first night effect. RECOMMENDATIONS: Due to persistent REM related respiratory events during this study, recommend the following: Auto Bilevel PAP with max IPAP 24 cmH2O, min EPAP 11 cmH2O, and pressure support of 3-5 cmH2O, with humidification. Recommend close clinical follow up as well as PAP data download after 4 weeks of PAP use to determine if changes to the PAP settings are necessary. A standard size ResMed AirFit N10 nasal mask without chin strap was used during this study. Radiology All relevant/recent imaging was personally reviewed by me. Please see official radiology report for details. CT chest without contrast (07/08/24) Impression: Suspected pulmonary edema, superimposed on chronic interstitial changes, scarring/fibrosis. Short-term interval follow-up recommended. Cardiomegaly with cardiac pacemaker. Slightly enlarged main pulmonary artery, which may be seen with pulmonary arterial hypertension. Assessment Chronic hypoxemic respiratory failure Acute on chronic HFpEF Pulmonary edema Likely underlying chronic ILD/fibrotic changes CHB s/p PPM Seizures MARY, not on PAP therapy Prior remote tobacco abuse Obesity, class II Recommendations CT images reviewed, concerning for pulmonary edema superimposed on chronic interstitial changes, cannot rule out infectious process She has significant coronary and mitral valve annular calcification, obtain TTE to better assess cardiac and valve function Recommend empiric diuresis, BNP is significantly elevated for age and BMI Agree with empiric antibiotics, she could have had an aspiration event leading to ARDS-like picture, but less likely, try to obtain sputum for analysis Anoro on med list, prior spirometry shows no overt airflow obstruction, she has a remote smoking history, doubt she truly has COPD, she is currently on scheduled Duonebs Keppra level ordered, unclear if she had a true seizure episode, but I increased her home Keppra back to her previously prescribed dose of 750 mg BID for now, patient does report missing her afternoon dose yesterday She is currently saturating well on home 3 LPM O2 Prior sleep study reviewed, recommended auto-BiPAP, order placed Pulmonary will continue to follow Thank you for allowing me to participate in the care of this patient, please feel free to reach out with any questions. Muriel Mckeon MD Pulmonary & Critical Care Medicine [facility] 07-08-2024 Emergency department Note Called lab to see if pt urine sample is available for legionella add-on. [facility] 07-08-2024 Note Pharmacy to Dose Van comycin - Progress Note Recent Labs 07/07/24 1515 07/08/24 0515 BUN 19 16 CREATININE 1.00 0.81 Lab Results Component Value Date VANCORANDOM 13.2 07/08/2024 Doses, serum creatinine, and vancomycin levels interfaced automatically to [employer] and data has been analyzed and interpreted. Infectious Diagnosis: CAP Est CrCl: 93 mL/min (Cockcroft-Gault) Assessment: Current regimen vancomycin 1250 mg every 24 hours. Predicted AUC = 481 mg/L*hr (goal 400-600 mg/L*hr) Plan: Is the current dose therapeutic? [x] Yes - obtain next level on 07/15/2024 unless predicted AUC is sub-/supra-therapeutic or change in serum creatinine. Trend serum creatinine. Trend AUC using Bayesian Modeling. Orders placed. DATE: 07/08/24 TIME: 6:36 AM Frankie Handley RPh Clinical Pharmacist Available via Secure Chat [employer] [facility] 07-07-2024 Consult note Formatting of th is note is different from the original. Images from the original note were not included. Pharmacy Managed Vancomycin Dosing Service Consult Note Consult Date: 07/07/24 Patient Name: Ana Lopes Allergies: Patient has no known allergies. Age: 79 y.o. Sex: female Estimated body mass index is 38.67 kg/m as calculated from the following: Height as of this encounter: 1.626 m (5' 4"). Weight as of this encounter: 102 kg (225 lb 5 oz). Lab Results Component Value Date CREATININE 1.00 07/07/2024 BUN 19 07/07/2024 WBC 10.9 (H) 07/07/2024 Calculated CrCl: 75.6 mL/min Consulted By: Dr. Pena Infectious Diagnosis: CAP (AUC Goal 400-600 mg/L*hr) Antimicrobials: Patient recently received an antibiotic (last 12 hours) Date/Time Action Medication Dose Rate 07/07/24 1756 New Bag vancomycin IVPB 1500 mg in 250 mL NS (premix) 1,500 mg 125 mL/hr 07/07/24 1649 New Bag piperacillin-tazobactam (Zosyn) 4,500 mg in sodium chloride 0.9 % 100 mL IVPB Mini-Bag Plus 4,500 mg 200 mL/hr Assessment/Plan: Doses, serum creatinine, and vancomycin levels interfaced automatically to [employer] and data has been analyzed and interpreted. Start Vancomycin 1250 mg Q 24 hours based on patient age, weight, renal function, and infectious diagnosis (12.3 mg/kg). Predicted AUC = 536 mg/L*hr (goal 400-600 mg/L*hr) Will assess level on 07-08-24399 and adjust as appropriate. Trend serum creatinine. Orders placed. Thank you for this consult. Please secure text or call with questions. DATE: 07/07/24 TIME: 9:49 PM Epi Parnell RPh Clinical Pharmacist Available via Secure Chat [facility] 07-07-2024 History and physical note Attending History and Physical Admit Date: 07/07/2024 PCP: Mayur Young CHIEF COMPLAINT: altered mental status and fall Reason for Admission: altered mental status and fall History Obtained From: patient/chart HISTORY OF PRESENT ILLNESS: Ana is a 79 y.o. female with past medical history below who presents with chief complaint listed above. She was sent in from facility with altered mental status. She was found down. She says she had a seizure but none witnessed or reported. She has some SOB and cough. No cp, n/v, f/c, dizziness. Will admit for further evaluation and management. Seen and examined in the ED. D/w pt Past Medical History: Past Medical History: Diagnosis Date Allergic rhinitis Anxiety COPD (chronic obstructive pulmonary disease) (HCC) Debility Depression Dizziness DM2 (diabetes mellitus, type 2) ([facility]) DVT (deep venous thrombosis) ([facility]) GERD (gastroesophageal reflux disease) Hypercholesteremia Hypertension Lymphedema Migraine headache Morbid obesity ([facility]/HCC) ([facility]) Nephrolithiasis status post perc nephrolithotomy MARY (obstructive sleep apnea) Osteoarthrosis Pneumonia Seizures ([facility]/HCC) ([facility]) Past Surgical History: Past Surgical History: Procedure Laterality Date CHOLECYSTECTOMY 1991 EYE SURGERY 2005 orbital I and D KIDNEY STONE SURGERY 2011 right then left nephrolithotomy TONSILLECTOMY (HISTORICAL) Social History: Social History Socioeconomic History Marital status: Spouse name: Not on file Number of children: Not on file Years of education: Not on file Highest education level: Not on file Occupational History Not on file Tobacco Use Smoking status: Former Smokeless tobacco: Never Tobacco comments: Quit smoking: quit in highschool Substance and Sexual Activity Alcohol use: No Alcohol/week: 0.0 standard drinks of alcohol Drug use: No Sexual activity: Not on file Other Topics Concern Not on file Social History Narrative Not on file Social Drivers of Health Financial Resource Strain: Low Risk (05/21/2023) Received from [facility], [facility] Overall Financial Resource Strain (CARDIA) Difficulty of Paying Living Expenses: Not very hard Food Insecurity: Patient Declined (12/29/2023) Received from [facility] Hunger Vital Sign Worried About Running Out of Food in the Last Year: Patient declined Ran Out of Food in the Last Year: Patient declined Transportation Needs: Patient Declined (12/29/2023) Received from [facility] PRAPARE - Transportation Lack of Transportation (Medical): Patient declined Lack of Transportation (Non-Medical): Patient declined Physical Activity: Not on file Stress: Not on file Social Connections: Not on file Intimate Partner Violence: Not on file Housing Stability: Patient Declined (12/29/2023) Received from [facility] Housing Stability Vital Sign Unable to Pay for Housing in the Last Year: Patient declined Number of Places Lived in the Last Year: Not on file Unstable Housing in the Last Year: Patient declined Family History: Family History Problem Relation Name Age of Onset Dementia Mother Medications Prior to Admission: No current facility-administered medications on file prior to encounter. No current outpatient medications on file prior to encounter. Allergies: No Known Allergies REVIEW OF SYSTEMS: As per HPI otherwise 10 system review is unremarkable. Vitals: BP 100/69 Pulse 108 Temp (!) 38.3 C (101 F) (Rectal) Resp 25 Ht 5' 4" (1.626 m) Wt 225 lb 5 oz (102 kg) SpO2 99% BMI 38.67 kg/m BMI Classification: Obese (BMI 30.0-39.9) Pulse Ox: SpO2 Av.7 % Min: 87 % Max: 99 % Supplemental O2: O2 Flow Rate (L/min): 4 L/min PHYSICAL EXAM: Physical Exam Vitals and nursing note reviewed. Constitutional: General: She is not in acute distress. Appearance: She is obese. She is ill-appearing. HENT: Head: Normocephalic and atraumatic. Mouth/Throat: Mouth: Mucous membranes are dry. Eyes: Extraocular Movements: Extraocular movements intact. Conjunctiva/sclera: Conjunctivae normal. Pupils: Pupils are equal, round, and reactive to light. Cardiovascular: Rate and Rhythm: Regular rhythm. Tachycardia present. Pulses: Normal pulses. Heart sounds: Murmur heard. Pulmonary: Effort: Pulmonary effort is normal. Breath sounds: Wheezing and rhonchi present. Comments: Coarse breath sounds bilaterally Abdominal: General: Bowel sounds are normal. There is no distension. Palpations: Abdomen is soft. Tenderness: There is no abdominal tenderness. There is no rebound. Musculoskeletal: General: Normal range of motion. Cervical back: Neck supple. Right lower leg: Edema present. Left lower leg: Edema present. Skin: General: Skin is dry. Capillary Refill: Capillary refill takes less than 2 seconds. Neurological: General: No focal deficit present. Mental Status: She is alert. She is disoriented. Motor: Weakness present. Psychiatric: Mood and Affect: Mood normal. DATA: CBC: Recent Labs 07/07/24 1515 WBC 10.9* RBC 4.98 HGB 14.9 HCT 46.3 MCV 93.0 RDW 15.5* PLT 321 BMP: Recent Labs 07/07/24 1515 NA 137 K 5.3* CL 104 CO2 22* BUN 19 CREATININE 1.00 GLUCOSE 205* CALCIUM 10.0 ANIONGAP 11 LIVER PROFILE: Recent Labs 07/07/24 1515 AST 34* ALT 12 BILITOT 0.5 ALKPHOS 98 PROT 8.6* PT/INR: No results for input(s): "PROTIME", "INR" in the last 72 hours. CARDIAC ENZYMES: No results for input(s): "TROPONINI" in the last 72 hours. Procalcitonin: No results found for: "PROCAL" Urine Culture: No results found for this or any previous visit. COVID-19 PCR: No results for input(s): "COVID19" in the last 72 hours. I reviewed: [x] laboratory results [x] radiographic results At the time of today's encounter. Pt was advised of the results. Assessment Altered mental status Fall Possible seizure-reported by patient but no documentation Pneumonia Lactic acidosis COPD MARY Leukocytosis Hyperkalemia HTN DM2 Seizure disorder GERD Hyperlipidemia Class 3 obesity Plan I discussed management with the ED clinician and agree with the need for hospitalization, monitor on telemetry, oxygen, aerosols, antibiotics, Pulmonology evaluation, check ag/PCR/cultures, IS, POCT, SS insulin, review home meds once available, PT/OT/SENIOR RADIATION THERAPIST, home CPAP at hs, follow up labs, follow up BP, may need EEG although no witnessed or reported seizure other than by patient, discharge planning, see admission orders. - am labs, replace lytes prn - PT/OT/CM/SW - delirium precautions: increase activity - DVT prophylaxis: enoxaparin and encourage ambulation Advance Directive: No Order Anticipated Discharge - Date - 07/09-07/11 - Location - Skilled Facility - Pending the following - clinical improvement and completion of work up Total time spent (which include face to face and non face to face encounters) : 64 minutes. Toxic drug monitoring/narrow therapeutic index drug monitoring : # Drug name : # Route administered : # Method of monitoring : Extended Emergency Contact Information Primary Emergency Contact: Chucky Lopes Mobile Relation: Son Preferred language: Romanian Cops needed? No Secondary Emergency Contact: Divya Hall Relation: Sibling Selwyn Pena MD Division of Hospitalist Medicine [employer] [facility] [employer] 07-07-2024 Note Attending History an d Physical Admit Date: 07/07/2024 PCP: Mayur Young CHIEF COMPLAINT: altered mental status and fall Reason for Admission: altered mental status and fall History Obtained From: patient/chart HISTORY OF PRESENT ILLNESS: Ana is a 79 y.o. female with past medical history below who presents with chief complaint listed above. She was sent in from facility with altered mental status. She was found down. She says she had a seizure but none witnessed or reported. She has some SOB and cough. No cp, n/v, f/c, dizziness. Will admit for further evaluation and management. Seen and examined in the ED. D/w pt Past Medical History: Past Medical History: Diagnosis Date Allergic rhinitis Anxiety COPD (chronic obstructive pulmonary disease) ([facility]) Debility Depression Dizziness DM2 (diabetes mellitus, type 2) ([facility]) DVT (deep venous thrombosis) ([facility]) GERD (gastroesophageal reflux disease) Hypercholesteremia Hypertension Lymphedema Migraine headache Morbid obesity ([facility]/HCC) ([facility]) Nephrolithiasis status post perc nephrolithotomy MARY (obstructive sleep apnea) Osteoarthrosis Pneumonia Seizures ([facility]) ([facility]) Past Surgical History: Past Surgical History: Procedure Laterality Date CHOLECYSTECTOMY 1991 EYE SURGERY 2005 orbital I and D KIDNEY STONE SURGERY 2011 right then left nephrolithotomy TONSILLECTOMY (HISTORICAL) Social History: Social History Socioeconomic History Marital status: Spouse name: Not on file Number of children: Not on file Years of education: Not on file Highest education level: Not on file Occupational History Not on file Tobacco Use Smoking status: Former Smokeless tobacco: Never Tobacco comments: Quit smoking: quit in highschool Substance and Sexual Activity Alcohol use: No Alcohol/week: 0.0 standard drinks of alcohol Drug use: No Sexual activity: Not on file Other Topics Concern Not on file Social History Narrative Not on file Social Drivers of Health Financial Resource Strain: Low Risk (05/21/2023) Received from [facility], [facility] Overall Financial Resource Strain (CARDIA) Difficulty of Paying Living Expenses: Not very hard Food Insecurity: Patient Declined (12/29/2023) Received from [facility] Hunger Vital Sign Worried About Running Out of Food in the Last Year: Patient declined Ran Out of Food in the Last Year: Patient declined Transportation Needs: Patient Declined (12/29/2023) Received from [facility] PRAPARE - Transportation Lack of Transportation (Medical): Patient declined Lack of Transportation (Non-Medical): Patient declined Physical Activity: Not on file Stress: Not on file Social Connections: Not on file Intimate Partner Violence: Not on file Housing Stability: Patient Declined (12/29/2023) Received from [facility] Housing Stability Vital Sign Unable to Pay for Housing in the Last Year: Patient declined Number of Places Lived in the Last Year: Not on file Unstable Housing in the Last Year: Patient declined Family History: Family History Problem Relation Name Age of Onset Dementia Mother Medications Prior to Admission: No current facility-administered medications on file prior to encounter. No current outpatient medications on file prior to encounter. Allergies: No Known Allergies REVIEW OF SYSTEMS: As per HPI otherwise 10 system review is unremarkable. Vitals: BP 100/69 Pulse 108 Temp (!) 38.3 ?C (101 ?F) (Rectal) Resp 25 Ht 5' 4" (1.626 m) Wt 225 lb 5 oz (102 kg) SpO2 99% BMI 38.67 kg/m? BMI Classification: Obese (BMI 30.0-39.9) Pulse Ox: SpO2 Av.7 % Min: 87 % Max: 99 % Supplemental O2: O2 Flow Rate (L/min): 4 L/min PHYSICAL EXAM: Physical Exam Vitals and nursing note reviewed. Constitutional: General: She is not in acute distress. Appearance: She is obese. She is ill-appearing. HENT: Head: Normocephalic and atraumatic. Mouth/Throat: Mouth: Mucous membranes are dry. Eyes: Extraocular Movements: Extraocular movements intact. Conjunctiva/sclera: Conjunctivae normal. Pupils: Pupils are equal, round, and reactive to light. Cardiovascular: Rate and Rhythm: Regular rhythm. Tachycardia present. Pulses: Normal pulses. Heart sounds: Murmur heard. Pulmonary: Effort: Pulmonary effort is normal. Breath sounds: Wheezing and rhonchi present. Comments: Coarse breath sounds bilaterally Abdominal: General: Bowel sounds are normal. There is no distension. Palpations: Abdomen is soft. Tenderness: There is no abdominal tenderness. There is no rebound. Musculoskeletal: General: Normal range of motion. Cervical back: Neck supple. Right lower leg: Edema present. Left lower leg: Edema present. Skin: General: Skin is dry. Capillary Refill: Capillary refill takes less than 2 seconds. Neurological: General: No focal deficit present. Mental Status: She is alert. (more content not included)... [facility] 07-07-2024 History and physical note Attending History and Physical Admit Date: 07/07/2024 PCP: Mayur Young CHIEF COMPLAINT: altered mental status and fall Reason for Admission: altered mental status and fall History Obtained From: patient/chart HISTORY OF PRESENT ILLNESS: Ana is a 79 y.o. female with past medical history below who presents with chief complaint listed above. She was sent in from facility with altered mental status. She was found down. She says she had a seizure but none witnessed or reported. She has some SOB and cough. No cp, n/v, f/c, dizziness. Will admit for further evaluation and management. Seen and examined in the ED. D/w pt Past Medical History: Past Medical History: Diagnosis Date Allergic rhinitis Anxiety COPD (chronic obstructive pulmonary disease) ([facility]) Debility Depression Dizziness DM2 (diabetes mellitus, type 2) ([facility]) DVT (deep venous thrombosis) ([facility]) GERD (gastroesophageal reflux disease) Hypercholesteremia Hypertension Lymphedema Migraine headache Morbid obesity (CMS/HCC) (HCC) Nephrolithiasis status post perc nephrolithotomy MARY (obstructive sleep apnea) Osteoarthrosis Pneumonia Seizures (CMS/HCC) ([facility]) Past Surgical History: Past Surgical History: Procedure Laterality Date CHOLECYSTECTOMY 1991 EYE SURGERY 2005 orbital I and D KIDNEY STONE SURGERY 2011 right then left nephrolithotomy TONSILLECTOMY (HISTORICAL) Social History: Social History Socioeconomic History Marital status: Spouse name: Not on file Number of children: Not on file Years of education: Not on file Highest education level: Not on file Occupational History Not on file Tobacco Use Smoking status: Former Smokeless tobacco: Never Tobacco comments: Quit smoking: quit in highschool Substance and Sexual Activity Alcohol use: No Alcohol/week: 0.0 standard drinks of alcohol Drug use: No Sexual activity: Not on file Other Topics Concern Not on file Social History Narrative Not on file Social Drivers of Health Financial Resource Strain: Low Risk (05/21/2023) Received from [facility], [facility] Overall Financial Resource Strain (CARDIA) Difficulty of Paying Living Expenses: Not very hard Food Insecurity: Patient Declined (12/29/2023) Received from [facility] Hunger Vital Sign Worried About Running Out of Food in the Last Year: Patient declined Ran Out of Food in the Last Year: Patient declined Transportation Needs: Patient Declined (12/29/2023) Received from [facility] PRAPARE - Transportation Lack of Transportation (Medical): Patient declined Lack of Transportation (Non-Medical): Patient declined Physical Activity: Not on file Stress: Not on file Social Connections: Not on file Intimate Partner Violence: Not on file Housing Stability: Patient Declined (12/29/2023) Received from [facility] Housing Stability Vital Sign Unable to Pay for Housing in the Last Year: Patient declined Number of Places Lived in the Last Year: Not on file Unstable Housing in the Last Year: Patient declined Family History: Family History Problem Relation Name Age of Onset Dementia Mother Medications Prior to Admission: No current facility-administered medications on file prior to encounter. No current outpatient medications on file prior to encounter. Allergies: No Known Allergies REVIEW OF SYSTEMS: As per HPI otherwise 10 system review is unremarkable. Vitals: BP 100/69 Pulse 108 Temp (!) 38.3 C (101 F) (Rectal) Resp 25 Ht 5' 4" (1.626 m) Wt 225 lb 5 oz (102 kg) SpO2 99% BMI 38.67 kg/m BMI Classification: Obese (BMI 30.0-39.9) Pulse Ox: SpO2 Av.7 % Min: 87 % Max: 99 % Supplemental O2: O2 Flow Rate (L/min): 4 L/min PHYSICAL EXAM: Physical Exam Vitals and nursing note reviewed. Constitutional: General: She is not in acute distress. Appearance: She is obese. She is ill-appearing. HENT: Head: Normocephalic and atraumatic. Mouth/Throat: Mouth: Mucous membranes are dry. Eyes: Extraocular Movements: Extraocular movements intact. Conjunctiva/sclera: Conjunctivae normal. Pupils: Pupils are equal, round, and reactive to light. Cardiovascular: Rate and Rhythm: Regular rhythm. Tachycardia present. Pulses: Normal pulses. Heart sounds: Murmur heard. Pulmonary: Effort: Pulmonary effort is normal. Breath sounds: Wheezing and rhonchi present. Comments: Coarse breath sounds bilaterally Abdominal: General: Bowel sounds are normal. There is no distension. Palpations: Abdomen is soft. Tenderness: There is no abdominal tenderness. There is no rebound. Musculoskeletal: General: Normal range of motion. Cervical back: Neck supple. Right lower leg: Edema present. Left lower leg: Edema present. Skin: General: Skin is dry. Capillary Refill: Capillary refill takes less than 2 seconds. Neurological: General: No focal deficit present. Mental Status: She is alert. She is disoriented. Motor: Weakness present. Psychiatric: Mood and Affect: Mood normal. DATA: CBC: Recent Labs 07/07/24 1515 WBC 10.9* RBC 4.98 HGB 14.9 HCT 46.3 MCV 93.0 RDW 15.5* PLT 321 BMP: Recent Labs 07/07/24 1515 NA 137 K 5.3* CL 104 CO2 22* BUN 19 CREATININE 1.00 GLUCOSE 205* CALCIUM 10.0 ANIONGAP 11 LIVER PROFILE: Recent Labs 07/07/24 1515 AST 34* ALT 12 BILITOT 0.5 ALKPHOS 98 PROT 8.6* PT/INR: No results for input(s): "PROTIME", "INR" in the last 72 hours. CARDIAC ENZYMES: No results for input(s): "TROPONINI" in the last 72 hours. Procalcitonin: No results found for: "PROCAL" Urine Culture: No results found for this or any previous visit. COVID-19 PCR: No results for input(s): "COVID19" in the last 72 hours. I reviewed: [x] laboratory results [x] radiographic results At the time of today's encounter. Pt was advised of the results. Assessment Altered mental status Fall Possible seizure-reported by patient but no documentation Pneumonia Lactic acidosis COPD MAYR Leukocytosis Hyperkalemia HTN DM2 Seizure disorder GERD Hyperlipidemia Class 3 obesity Plan I discussed management with the ED clinician and agree with the need for hospitalization, monitor on telemetry, oxygen, aerosols, antibiotics, Pulmonology evaluation, check ag/PCR/cultures, IS, POCT, SS insulin, review home meds once available, PT/OT/SENIOR RADIATION THERAPIST, home CPAP at hs, follow up labs, follow up BP, may need EEG although no witnessed or reported seizure other than by patient, discharge planning, see admission orders. - am labs, replace lytes prn - PT/OT/CM/SW - delirium precautions: increase activity - DVT prophylaxis: enoxaparin and encourage ambulation Advance Directive: No Order Anticipated Discharge - Date - 07/09-07/11 - Location - Skilled Facility - Pending the following - clinical improvement and completion of work up Total time spent (which include face to face and non face to face encounters) : 64 minutes. Toxic drug monitoring/narrow therapeutic index drug monitoring : # Drug name : # Route administered : # Method of monitoring : Extended Emergency Contact Information Primary Emergency Contact: Chucky Lopes Mobile Relation: Son Preferred language: Romanian Cops needed? No Secondary Emergency Contact: Divya Hall Relation: Sibling Selwyn Saúl Pena MD Division of Hospitalist Medicine [facility] [employer] documented in this encounter [facility] 07-07-2024 Emergency department Note Pt arrives via EMS after an unwitnessed fall at [facility]. Per EMS, nursing staff found pt on the floor by her bed. Per EMS, pt states she "slid out of bed". Nursing staff also reports periods of unresponsiveness. Pt is normally A&O x4, was disoriented per nursing staff. Pt unable to recall her birthday upon arrival to the ED. Denies pain. 2L NC at baseline. 85% SpO2 upon EMS arrival. History of seizures. [facility] 07-07-2024 Physician Emergency department Note [facility] ED EMERGENCY DEPARTMENT ENCOUNTER Pt Name: Ana Lopes Birthdate 1945 Date of evaluation: 07/07/2024 Provider: Selwyn Lai MD CHIEF COMPLAINT Chief Complaint Patient presents with Altered Mental Status Fall Unwitnessed fall, found by [facility] staff HISTORY OF PRESENT ILLNESS (Location/Symptom, Timing/Onset,Context/Setting, Quality, Duration, Modifying Factors, Severity) Note limiting factors. Ana Lopes is a 79 y.o. female who presents to the emergency department patient presents with altered mental status. She said she lowered her self to the ground. She has history of seizures. She has had cough congestion. Patient overall poor historian. By squad. Sent in from [facility]. HPI Historian is the patient Nurse's notes for past medical history, surgical history, social history were reviewed. Medications and allergies reviewed. PAST MEDICAL HISTORY Past Medical History: Diagnosis Date Allergic rhinitis Anxiety COPD (chronic obstructive pulmonary disease) ([facility]) Debility Depression Dizziness DM2 (diabetes mellitus, type 2) ([facility]) DVT (deep venous thrombosis) ([facility]) GERD (gastroesophageal reflux disease) Hypercholesteremia Hypertension Lymphedema Migraine headache Morbid obesity ([facility]) ([facility]) Nephrolithiasis status post perc nephrolithotomy MARY (obstructive sleep apnea) Osteoarthrosis Pneumonia Seizures ([facility]) ([facility]) SURGICALHISTORY Past Surgical History: Procedure Laterality Date CHOLECYSTECTOMY 1991 EYE SURGERY 2005 orbital I and D KIDNEY STONE SURGERY 2011 right then left nephrolithotomy TONSILLECTOMY (HISTORICAL) CURRENT MEDICATIONS Previous Medications No medications on file Patient has no known allergies. FAMILY HISTORY Family History Problem Relation Name Age of Onset Dementia Mother SOCIAL HISTORY Social History Socioeconomic History Marital status: Tobacco Use Smoking status: Former Smokeless tobacco: Never Tobacco comments: Quit smoking: quit in highschool Substance and Sexual Activity Alcohol use: No Alcohol/week: 0.0 standard drinks of alcohol Drug use: No Social Drivers of Health Financial Resource Strain: Low Risk (05/21/2023) Received from [facility], [facility] Overall Financial Resource Strain (CARDIA) Difficulty of Paying Living Expenses: Not very hard Food Insecurity: Patient Declined (12/29/2023) Received from [facility] Hunger Vital Sign Worried About Running Out of Food in the Last Year: Patient declined Ran Out of Food in the Last Year: Patient declined Transportation Needs: Patient Declined (12/29/2023) Received from [facility] PRAPARE - Transportation Lack of Transportation (Medical): Patient declined Lack of Transportation (Non-Medical): Patient declined Housing Stability: Patient Declined (12/29/2023) Received from [facility] Housing Stability Vital Sign Unable to Pay for Housing in the Last Year: Patient declined Unstable Housing in the Last Year: Patient declined SCREENINGS PHYSICAL EXAM (up to 7 for level 4, 8 or more for level 5) @EDTRIAGEVSS@ Appropriate PPE including n 95, gown, gloves, goggles where worn when appropriate with this patient. Physical Exam Vital signs reviewed general: Alert and oriented 3 head: Atraumatic, no cephalhematoma eyes: Equal round reactive to light and accommodating, pupils are equal, round and reactive to light and accommodation oropharynx: Clear and well hydrated neck: Supple heart: Regular rate and rhythm, no murmurs lungs: Coarse breath sounds slightly diminished bilaterally abdomen: Soft nontender, positive bowel sounds, no peritoneal findings. Extremities: Moving all fours, no tenderness. Normal capillary refill. Skin: No rash or lesions -to the exposed skin neurologically: Alert and oriented 3, cranial nerves grossly intact, strength diffusely weak but no focal weakness, sensation, intact. NIH equals 0 DIAGNOSTIC RESULTS RADIOLOGY: Interpretation per the Radiologist below, if availableat the time of this note: CT head wo IV contrast Final Result No CT evidence of an acute intracranial abnormality. Chronic parenchymal changes as described. Report Dictated on Electronically Signed By: Gerard An MD Electronically Signed Date/Time: 07/07/2024 4:10 PM EST XR chest 1 view Final Result Mild interstitial infiltrates bilaterally may be due to edema or interstitial pneumonia. Report Dictated on Electronically Signed By: Dawood Cosme DO Electronically Signed Date/Time: 07/07/2024 3:37 PM EST ED BEDSIDE ULTRASOUND: Performed by ED Physician - none LABS: Labs Reviewed COMPREHENSIVE METABOLIC PANEL - Abnormal Result Value SODIUM 137 POTASSIUM 5.3 (*) CHLORIDE 104 CARBON DIOXIDE 22 (*) ANION GAP 11 UREA NITROGEN 19 CREATININE 1.00 GLUCOSE 205 (*) CALCIUM 10.0 AST (SGOT) 34 (*) ALT 12 ALKALINE PHOSPHATASE 98 ALBUMIN 3.4 BILIRUBIN, TOTAL 0.5 TOTAL PROTEIN 8.6 (*) eGFR 58.1 (*) HIGH SENSITIVITY TROPONIN, SERIAL BASELINE - Abnormal Troponin HS, Serial Baseline 45 (*) MAGNESIUM - Abnormal MAGNESIUM 1.5 (*) Narrative: Higher values can be expected in females during menses. CBC WITH AUTO DIFFERENTIAL - Abnormal Auto WBC 10.9 (*) RBC 4.98 Hemoglobin 14.9 Hematocrit 46.3 MCV 93.0 MCH 29.9 MCHC 32.2 RDW 15.5 (*) Platelets 321 MPV 9.4 nRBC 0.0 Neutrophils Relative 69.5 Lymphocytes Relative 20.1 Monocytes Relative 5.2 Eosinophils Relative 4.0 Basophils Relative 0.7 Immature Grans % 0.5 Neutrophils Absolute 7.6 (*) Lymphocytes Absolute 2.2 Monocytes Absolute 0.6 Eosinophils Absolute 0.4 Basophils Absolute 0.1 Immature Grans Absolute 0.1 (*) LACTIC ACID WITH REFLEX - Abnormal LACTIC ACID 2.9 (*) COMPLETE URINALYSIS - Abnormal Color, Urine Yellow Clarity, Urine Cloudy (*) pH, Urine 5.0 Leukocytes, Urine 500 (*) Nitrite, Urine Positive (*) Protein, Urine Negative Glucose, Urine Normal Bilirubin, Urine Negative Ketones, Urine Negative Urobilinogen, Urine Normal Blood, Urine Negative RBC, Urine 3-5 (*) WBC, Urine 51-100 (*) Squamous Epithelial, Urine 0-2 Bacteria, Urine Many (*) Mucus, Urine Few Hyaline Casts, Urine 3-5 (*) SPECIFIC GRAVITY OF URINE (NUMERIC) 1.014 HIGH SENSITIVITY TROPONIN, SERIAL, SECOND TEST - Abnormal Troponin HS, Serial Second 33 (*) Troponin HS Delta, Baseline to Second -12 SARS-COV-2, FLU A/B, AND RSV COMBO - Normal SARS-CoV-2 Not Detected Respiratory Syncytial Virus Not Detected Influenza A Not Detected Influenza B Not Detected Narrative: Methodology: real-time, RT-PCR The SARS-CoV-2, Flu A/B, and RSV Combo assay is intended for in vitro diagnostic use under the FDA Emergency Use Authorization (EUA). This test has not been FDA cleared or approved. In compliance with this authorization, please visit www.fda.gov/media/183424/download or www.fda.gov/media/982191/download to access the applicable information sheets. BLOOD CULTURE BLOOD CULTURE URINE CULTURE COMPLETE URINALYSIS WITH REFLEX TO CULTURE Narrative: The following orders were created for panel order Urinalysis complete with reflex to Culture. Procedure Abnormality Status --------- ------ Complete Urinalysis[[id number]] Abnormal Final result Please view results for these tests on the individual orders. LEVETIRACETAM LEVEL ([facility]) LACTIC ACID WITH REFLEX All other labs were within normal range or not returned as of thisdictation. EMERGENCYDEPARTMENT COURSE and DIFFERENTIAL DIAGNOSIS/MDM: Vitals: Vitals: 07/07/24 1733 07/07/24 1802 07/07/24 1845 07/07/24 1957 BP: 100/69 97/60 Pulse: 108 97 Resp: 25 (!) 28 20 Temp: 37.6 C (99.6 F) TempSrc: Rectal SpO2: 99% 99% Weight: Height: Medical Decision Making EMERGENCY DEPARTMENT COURSE and DIFFERENTIAL DIAGNOSIS/MDM: Vitals: Vitals: 07/07/24 1733 07/07/24 1802 07/07/24 1845 07/07/24 1957 BP: 100/69 97/60 Pulse: 108 97 Resp: 25 (!) 28 20 Temp: 37.6 C (99.6 F) TempSrc: Rectal SpO2: 99% 99% Weight: Height: The patient presented with a chief complaint of with altered mental status fall cough. The differential diagnosis associated with this patient's presentation includes pneumonia stroke seizure respiratory difficulty ACS COVID dehydration. Our workup consisted of ordering/reviewing blood work CTA chest x-ray. Patient given 5 and a saline bolus. Lactic acid 2.9. This will be repeated. She does have pneumonia. Given Zosyn and vancomycin. I was at bedside with Dr. Pena and we will get a repeat lactic acid not give her further fluids. This has respiratory rate of 28 but she is really breathing 20 here. Hospitalist will follow-up on the repeat lactic acid. Patient will be admitted. In addition pneumonia patient does have UTI. Urine sent for culture. CORE MEASURE DATA SIRS Criteria Sepsis Criteria Severe Sepsis Criteria Septic Shock Criteria Must meet 2: [] Temperature > 100.4 F (38 C) or < 96.8 F (36 C) [] HR > 90 [] RR > 20 [] WBC > 12 or < 4 or 10% bands Must be confirmed or suspected to move forward with diagnosis of sepsis. Must select at least one: [] Bacterial Infection Confirmed or Suspected. [] Viral Infection Confirmed or Suspected. [] No infection present. Patient does not meet criteria for Sepsis. Must meet 1: [x] Lactate > 2 or [] Signs of Organ Dysfunction: - SBP < 90 or MAP < 65 - Altered mental status - Creatinine > 2 or increased from baseline - Urine Output < 0.5 ml/kg/hr - Bilirubin > 2 - INR > 1.5 - Platelets < 100,000 - Acute Respiratory Failure as evidenced by new need for NIPPV or mechanical ventilation [] No criteria met for Severe Sepsis. Must meet 1: [] Lactate = or > 4 or [] SBP < 90 or MAP < 65 for at least two readings in the first hour after fluid bolus administration [] No criteria met for Septic Shock. No data found. Recent Labs 07/07/24 1515 WBC 10.9* LACTATE 2.9* CREATININE 1.00 BILITOT 0.5 PLT 321 Sepsis Identified at 1515 . Fluid Resuscitation Rational: Due to heart failure, ordered less than 30cc/kg actual body weight. Actual fluid amount given: 500 mL Infection Source: Pulmonary and UTI Reassessment Exam: Not applicable. Patient does not have Septic Shock. Selwyn Lai MD ED Course as of 07/07/241999Jul 07, 20241948 Patient does have UTI. Initial troponin 40 5 repeat is 33. COVID RSV influenza negative. Normal sodium. Potassium 5.3. Lactic acid is 2.9. White blood count 10.9. Patient given IV Zosyn patient given 500 normal saline. Patient given vancomycin. [GS] ED Course User Index [GS] Selwyn Lai MD Diagnoses as of 07/07/241999 Pneumonia due to infectious organism, unspecified laterality, unspecified part of lung Fall, initial encounter Altered mental status, unspecified altered mental status type Sepsis, due to unspecified organism, unspecified whether acute organ dysfunction present (HCC) Urinary tract infection with hematuria, site unspecified Diagnostics considered but not indicated based on history, physical, testing: CT of the chest but not clinical indicated based on history and physical External records reviewed: Outpatient records reviewed patient history acute kidney injury admission 12/27/2023. Has had follow-up with family medicine include clinic 04/14/2024 referral of oxygen order. Radiologic diagnostics interpreted by me: film images such as CT, Ultrasound and MRI are read by the radiologist. Plain radiographic images are visualized and preliminarily interpreted by the emergency physician with the below findings: EKG(s) EKG per my interpretation sinus rhythm left pulm branch block irregular baseline no acute ST elevation or ischemic findings. Xray(s) chest x-ray shows pneumonia per my interpretation CT scan(s) CT of the head no acute process. Discussions with other clinicians: Dr. Pena hospitalist agrees to admit Chronic conditions impacting care: Seizures dizziness diabetes lymphedema GERD Social determinants of health affecting care: In fpc Shared decision making: Patient agrees to treatment plan ED Medications managed: Medications sodium chloride 0.9 % infusion (has no administration in time range) acetaminophen (Tylenol) tablet 650 mg (650 mg Oral Given 07/07/24 1654) sodium chloride 0.9 % bolus 500 mL (0 mL IntraVENous Stopped 07/07/24 174) piperacillin-tazobactam (Zosyn) 4,500 mg in sodium chloride 0.9 % 100 mL IVPB Mini-Bag Plus (0 mg IntraVENous Stopped 07/07/24 174) vancomycin IVPB 1500 mg in 250 mL NS (premix) (1,500 mg IntraVENous New Bag 07/07/24 175) Prescription drugs prescribed: CRITICAL CARE TIME Total Critical Care time was at least 35 minutes, excluding separately reportable procedures. There was a high probability of clinically significant/life threatening deterioration in the patient's condition which required my urgentintervention. PROCEDURES: Unless otherwise noted below, none Procedures IMPRESSION 1. Pneumonia due to infectious organism, unspecified laterality, unspecified part of lung 2. Fall, initial encounter 3. Altered mental status, unspecified altered mental status type 4. Sepsis, due to unspecified organism, unspecified whether acute organ dysfunction present (HCC) 5. Urinary tract infection with hematuria, site unspecified DISPOSITION/PLAN DISPOSITION Admit 07/07/2024 05:14:49 PM PATIENT REFERRED TO: No follow-up provider specified. DISCHARGE MEDICATIONS: New Prescriptions No medications on file @[id number]:LAST:1)@ (Comment: Please notethis report has been produced using speech recognition software and may contain errors related to that system including errors in grammar, punctuation, and spelling, as well as words and phrases that may be inappropriate.If there is any questions or concerns please feel free to contact the dictating provider for clarification). Selwyn Lai MD (electronically signed) Attending Emergency Physician Selwyn Lai MD 07/07/241999 [facility] 05-27-2024 Note HNO ID: [id number] Author: ANTONIO VAUGHN DO Service: ? Author Type: Physician Type: Progress Notes Filed: 05/27/2024 10:31 Note Text: Noted. Thanks Antonio Vaughn DO [facility] 05-27-2024 History of Present illness Narrative Noted. Thanks Antonio Vaughn DO Patient is now a permanent resident of [facility] the care of facility physician, Dr. Isiah Acevedo MD . Dr. Isiah Acevedo MD will manage all patient care hereafter (including refilling prescriptions). [facility] chart updated to reflect PCP change. Khadijah Barnes RN documented in this encounter [facility] 05-27-2024 Note [facility] 04-14-2024 Telephone encounter Note Please review and complete. Form will be placed in your temp file.Thank you [facility] 04-14-2024 Miscellaneous Notes Please review and complete. Form will be placed in your temp file.Thank you documented in this encounter [facility] 01-07-2024 Telephone encounter Note I called Annamaria from [employer] and had to leave a . I advised her of Rosa Isela Solorzano's response and as soon as we get patient scheduled we will let their office know. Sindy Thomas [facility] 01-07-2024 Miscellaneous Notes I called Annamaria from [employer] and had to leave a . I advised her of Rosa Isela Solorzano's response and as soon as we get patient scheduled we will let their office know. Sindy Thomas Contacted pt's sister Divya. Divya states pt is in a facility due to pneumonia. Pt has been at [facility] ([phone]) for about 3 weeks. Per nurse Shore at [facility] the pt has no orders for CPAP and has not been using CPAP. Kathrine Moon LPN Images from the original note were not included. Tami Solorzano PA-C [facility] Clinical Pool1 hour ago (10:20 AM) Please call patient and ask if she is using her CPAP. How many nights of the week she is using and for how many hours. On the note from 11/21/23 it was not stated that patient is using and benefiting from the C-Pap machine. If she is using it that is not an issue, but if she is not using it she will need a new sleep study and it could be a home sleep study which her insurance will cover. Annamaria from [employer] called and was asking. If you have any questions call Leigh Ann (Annamaria is covering while out) @ [phone] opt#1. Thanks, Sindy Thomas documented in this encounter [facility] 01-07-2024 Telephone encounter Note Contacted pt's sister Divya. Divya states pt is in a facility due to pneumonia. Pt has been at [facility] ([phone]) for about 3 weeks. Per nurse Shore at [facility] the pt has no orders for CPAP and has not been using CPAP. Kathrine Moon LPN [facility] 01-07-2024 Telephone encounter Note Images from the original note were not included. Tami Solorzano PA-C [facility] Clinical Pool1 hour ago (10:20 AM) Please call patient and ask if she is using her CPAP. How many nights of the week she is using and for how many hours. [facility] 01-07-2024 Telephone encounter Note On the note from 11/21/23 it was not stated that patient is using and benefiting from the C-Pap machine. If she is using it that is not an issue, but if she is not using it she will need a new sleep study and it could be a home sleep study which her insurance will cover. Annamaria from [employer] called and was asking. If you have any questions call Leigh Ann (Annamaria is covering while out) @ [phone] opt#1. ThanksSindy [facility] 01-01-2024 Note [facility] 01-01-2024 History of Present illness Narrative [facility] POPULATION HEALTH NAVIGATION OUTREACH Action/FYI [facility] MED REC 12-29-2023- RN DC TO [facility] 12-30-2023 UPLOADED Patient Identified by Name and : Yes, via EPIC - no outreach needed Reason for Outreach Care Gap or Scheduling Wellness Visits Care Gap Reviewed:: [facility] Outreach Outcome/Action Population Health Navigation Workflow Cute PDF and Portal Submission Payer: [facility] Navigation Signature: [place] January 01, 2024 12:11 PM documented in this encounter [facility] 12-30-2023 Note HNO ID: [id number] Author: KHADIJAH BARNES RN Service: ? Author Type: Registered Nurse Type: Progress Notes Filed: 12/30/2023 08:06 Note Text: TRANSITION CARE MANAGEMENT (TCM) DISCHARGE TO POST ACUTE FACILITY POST ACUTE TRANSFER SUMMARY: -Pt discharged from [facility] on 12/29/2023. -Post Acute Facility Admitted to [facility] -Admitted for: SAQIB Office PCC will follow at discharge. Khadijah Barnes RN December 30, 2023 [facility] 12-30-2023 Note [facility] 12-30-2023 History of Present illness Narrative TRANSITION CARE MANAGEMENT (TCM) DISCHARGE TO POST ACUTE FACILITY POST ACUTE TRANSFER SUMMARY: -Pt discharged from [facility] on 12/29/2023. -Post Acute Facility Admitted to [facility] -Admitted for: SAQIB Office PCC will follow at discharge. Khadijah Barnes RN December 30, 2023 documented in this encounter [facility] 12-30-2023 Note Patient Outreach (AG ACM) ANA LOPES ([id number]) 1945 F DEF Date Time Provider Department 12/30/[address] [facility] During your visit today, we recorded the following information about you: Khadijah Barnes RN 12/30/2023 8:06 AM Signed TRANSITION CARE MANAGEMENT (TCM) DISCHARGE TO POST ACUTE FACILITY POST ACUTE TRANSFER SUMMARY: -Pt discharged from [facility] on 12/29/2023. -Post Acute Facility Admitted to [facility] -Admitted for: SAQIB Office PCC will follow at discharge. Khadijah Barnes RN December 30, 2023 Allergies As of Date: 12/30/2023 Noted Allergy Reaction CODEINE 03/09/2023 16 - Unknown NITROGLYCERIN 03/09/2023 16 - Unknown Date Reviewed: 12/27/2023 Reviewed by: Umang Phillips, BLANCA - Fully Assessed Reason for Visit: Transition Of Care [4074] Cmt: [facility] discharge [facility] Prescriptions as of 12/30/2023 - amoxicillin (AMOXIL) 875 mg tablet Take 1 tablet by mouth every 12 hours for 5 days. - furosemide (LASIX) 20 mg tablet Take 2 tablets by mouth once daily for 7 days, THEN 1 tablet once daily. - levETIRAcetam (KEPPRA) 750 mg tablet Take 1 tablet by mouth two times a day. - cetirizine (ZYRTEC) 10 mg tablet Take 1 tablet by mouth once daily. - metFORMIN (GLUCOPHAGE) 1,000 mg tablet Take 1 tablet by mouth two times a day with meals. - atorvastatin (LIPITOR) 80 mg tablet Take 1 tablet by mouth once daily. - polyvinyl alcohol (LIQUIFILM TEARS) 1.4 % ophthalmic solution Use 1 Drop in both eyes as needed (both eyes). - albuterol HFA (PROVENTIL HFA, VENTOLIN HFA) 90 mcg/actuation inhaler Inhale 2 Puffs as instructed every 6 hours as needed for wheezing/shortness of breath. - umeclidinium-vilanterol (ANORO ELLIPTA) 62.5-25 mcg/actuation inhaler Inhale 1 Inhalation as instructed once daily. - soinxoy-kasogilld-nwtjpmw D3 (OYSTER SHELL CALCIUM-VITAMIN D) 500 mg-5 mcg (200 unit) per tablet Take 1 tablet by mouth once daily. - N4-ybnir-[id number]-qihgnn-dtctqaiybj 1.7 mg-400 mcg- 2.4 mcg cap Take 1 capsule by mouth once daily. - fluticasone (FLONASE ALLERGY RELIEF) 50 mcg/actuation nasal spray Use 1 [place] in each nostril once daily. - aspirin 81 mg chewable tablet Take 1 tablet by mouth once daily. - diclofenac (VOLTAREN ARTHRITIS PAIN) 1 % topical gel Apply 4 g to affected area four times daily. - Biotin 10,000 mcg cap Take 1 capsule by mouth once daily. - prednisoLONE acetate (PRED FORTE) 1 % ophthalmic suspension Use 1 Drop in both eyes three times a day. 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] 10/19/2023 Anxiety disorder, unspecified [F41.9] 03/09/2023 Dependence on supplemental oxygen [Z99.81] 10/19/2023 12/28/2023 Hyperlipidemia, unspecified [E78.5] 10/25/2023 Hypertensive heart disease with heart failure (*05/24/2023 Interstitial pulmonary disease, unspecified (HC*10/25/2023 Morbid (severe) obesity with alveolar hypoventi*03/09/2023 Obstructive sleep apnea (adult) (pediatric) [G4*03/09/2023 Presence of cardiac pacemaker [Z95.0] 10/22/2023 Rheumatoid arthritis, unspecified (HCC) [M06.9] 10/25/2023 Type 2 diabetes mellitus without complication, *03/09/2023 Sick sinus syndrome (HCC) [I49.5] 10/25/2023 Pneumonia of left lung due to infectious organi*12/04/2023 12/10/2023 Seizure disorder (HCC) [G40.909] 12/04/2023 Lymphedema [I89.0] 12/04/2023 Pneumonia, unspecified organism [J18.9] 12/04/2023 12/10/2023 Fall [W19.XXXA] 12/04/2023 12/10/2023 UTI (urinary tract infection) [N39.0] 12/05/2023 Pannus, abdominal [E65] 12/05/2023 SAQIB (acute kidney injury) (HCC) [N17.9] 12/28/2023 12/29/2023 Seasonal rhinitis [J30.2] 12/28/2023 Encounter Status:Closed by KHADIJAH BARNES on 12/30/23 [facility] 12-29-2023 Note HNO ID: [id number] Author: VELVET ROY LSW Service: Care Management Author Type: Air Chief Marshal Type: Care Mgt Initial Assessment Filed: 12/29/2023 10:35 Note Text: CARE MANAGEMENT: ASSESSMENT AND DISCHARGE PLAN SERVICE DATE: December 29, 2023 SERVICE TIME: 10:33 AM PCP: Antonio Vaughn DO Primary Contact: Extended Emergency Contact Information Primary Emergency Contact: Ed Lopes Mobile Relation: Son Secondary Emergency Contact: Divya Dorantes Mobile Relation: Sister Admission Status: Inpatient Insurance Provider: [facility] DUAL COMPLETE HMO POS SNP Discharge Planning requested by: Per Department Practice Potential Transition Plans Retirement Facility/Intermediate Care Facility Advance Directives Current Advance Directive: None Playground Official Attempted to Assist with AD Completion: Yes Action: Patient Unwilling Current Living Arrangements and Support Lives with: (facility) Type of Residence: Extended Care Facility Does the patient have to climb stairs at home?: No Care Facility Name: [facility] Support: Family members How do you manage to accomplish the following: Needs Assistance: Ambulation;Bathe/Shower;Dress;Martha ls/Meal Prep;Going to the bathroom;Medication Management Dependent: Transportation to appointments/community Current Services/Equipment Current Post-Acute Service(s): None Discharge Planning Patient Goal(s): General wellness [place] Explained: [place] Given: Yes Level of Care Discussed: Retirement Facility Are you interested in bedside delivery of your medications? No Discharge Planning Participant(s): Family Patient/Family Comments: Caregiver Assessment: Caregiver is ready, willing and able to meet the patient's needs as recommended by the inter-professional team: Yes Name of Caregiver: facility Transport at Discharge: Transportation Arrangements: Ambulance Transportation Agency and Phone #:: [facility] ( [facility] ) [phone] / [phone] Date of Trip: 12/29/23 Time of Trip: 0300 Type of Service: BLS Non-emergency Is Patient Medicaid Pending?: No Was transportation financial coverage discussed with family?: Patient;Family Rocket Scientist Location: [facility] Destination: [facility] Financial Care Management Responsibility: Yes Needs Prior to Discharge: Needs Prior to Discharge: Ready for Discharge Post-Acute Discharge Plan: Patient is a return to [facility]. Facility able to have patient return today. [facility] 3pm. Updated pt's sister, unable to leave patient's son vm it was full. Summary of care completed. SIGNATURE: EULALIA Gooden PATIENT NAME: Ana Lopes DATE: December 29, 2023 TIME: 10:33 AM CONTACT #: [phone] [facility] 12-29-2023 Note HNO ID: [id number] Author: VELVET ROY LSW Service: Care Management Author Type: Air Chief Marshal Type: Care Mgt Progress Note Filed: 12/29/2023 10:15 Note Text: CARE MANAGEMENT PROGRESS NOTE SERVICE DATE: 12/29/2023 SERVICE TIME: 10:10 AM LOS: 1 day Post-Acute Discharge Planning Patient Goal(s): [place] Explained: Discharge Planning Participant(s): Patient/Family Comments: Anticipated # of Days Until Discharge: Transport at Discharge: [facility] 3pm Needs Prior to Discharge: Needs Prior to Discharge: Ready for Discharge Post-Acute Discharge Plan: Patient discharging back to [facility]. Sw updated facility. Sw spoke to patient's sister due to son's vm full and unable to leave a message. Summary of care completed. Packet placed on chart. SIGNATURE: EULALIA Gooden PATIENT NAME: Ana Lopes DATE: December 29, 2023 TIME: 10:10 AM PAGER/CONTACT #: [phone] [facility] 12-29-2023 Note HNO ID: [id number] Author: VELVET ROY LSW Service: Care Management Author Type: Air Chief Marshal Type: Care Mgt Progress Note Filed: 12/29/2023 09:39 Note Text: CARE MANAGEMENT PROGRESS NOTE SERVICE DATE: 12/29/2023 SERVICE TIME: 9:23 AM LOS: 1 day Sw sent referral to [facility]. Patient ready for dc. Sw sent updates and asked what is needed for return to facility. [facility] return. Facility checking to see if she needs precert to return. Facility to call this sw back with update. Packet completed. SIGNATURE: EULALIA Gooden PATIENT NAME: Ana Lopes DATE: December 29, 2023 TIME: 9:23 AM PAGER/CONTACT #: [phone] [facility] 12-29-2023 Note HNO ID: [id number] Author: TAMI LONG DO Service: Family Practice Author Type: Resident Type: Progress Notes Filed: 12/29/2023 23:50 Note Text: Attestation signed by Tami Long DO at 12/29/2023 11:50 PM Attending Note I evaluated the patient 12/29/23 and personally participated in the clayton components. I agree with the resident's findings and plan as documented and have discussed the case and management of the patient's care with the resident. Plan of care discussed with: Provider, RN, Patient. Pt markedly improved No N/V/D since admission Eating well and tolerating all intake Pt back to baseline - PLAN: CM to assist with getting pt back to SNF Signature: Tami Long DO Date: December 29, 2023 Time: 11:49 PM [facility] ([facility]) Inpatient Service PROGRESS NOTE Admit Date/Time: 12/27/2023 4:16 PM Length of Stay: 1 Brief Summary: Ana Lopes is a 78 year old female presented with past medical history of Type II DM, sick sinus syndrome s/p pacemaker, HTN, HFpEF, HLD, seizure disorder, MARY, morbid obesity with hypoventilation syndrome, COPD, interstitial pulmonary disease, lymphedema, and RAMON who was admitted to [facility] for SAQIB. Interval History: No acute overnight events. Patient sitting in bed, no concerns at this time. Patient notes she did eat full breakfast and is feeling well today. Objective Medications: Current Facility-Administered Medications Medication Dose Route Frequency Provider Last Rate Last Admin cefTRIAXone iv piggyback 1 g in dextrose (iso-osmotic) 50 mL (ROCEPHIN) 1 g INTRAVENOUS q 24 H Mino Penn DO Stopped at 12/29/23 0949 levETIRAcetam 750 mg tab(s) (KEPPRA) 750 mg ORAL BID Oscar, Lanny, DO 750 mg at 12/29/23 0919 cetirizine 10 mg tab(s) (ZYRTEC) 10 mg ORAL DAILY Oscar, Lanny, DO 10 mg at 12/29/23 0918 atorvastatin 80 mg tab(s) (LIPITOR) 80 mg ORAL DAILY Oscar, Lanny, DO 80 mg at 12/29/23 0919 albuterol HFA 90 mcg/actuation 2 Puff (PROVENTIL HFA, VENTOLIN HFA) 2 Puff INHALATION q 6 H PRN Oscar, Lanny, DO umeclidinium 62.5 mcg - vilanterol 25 mcg inhaler (ANORO ELLIPTA) 1 Inhalation INHALATION DAILY Oscar, Lanny, DO 1 Inhalation at 12/29/23 0919 calcium-cholecalciferol (D3) 2 tablet tab(s) (OSCAL+D 250) 2 tablet ORAL DAILY Oscar, Lanny, DO 2 tablet at 12/29/23 0918 prednisoLONE acetate 1 % 1 Drop (PRED FORTE) 1 Drop BOTH EYES TID Oscar, Lanny, DO 1 Drop at 12/29/23 0919 aspirin 81 mg chewable tab(s) 81 mg ORAL DAILY Oscar, Lanny, DO 81 mg at 12/29/23 0918 diclofenac 1 % 4 g topical gel (VOLTAREN) 4 g TOPICAL QID Oscar, Lanny, DO heparin 5,000 Units injection 5,000 Units SUBCUTANEOUS q 12 H Oscar, Lanny, DO 5,000 Units at 12/29/23 0919 dextrose 15 gram/32 mL 15 g (TRUEPLUS) 15 g ORAL PRN Oscar, Lanny, DO Or glucagon 1 mg injection 1 mg INTRAMUSCULAR PRN Oscar, Lanny, DO Or dextrose 10% iv bolus 12.5 g INTRAVENOUS PRN Oscar, Lanny, DO insulin lispro injection (rapid acting) (ADMElog) SUBCUTANEOUS w MEALS AND HS Oscar, Lanny, DO acetaminophen 650 mg tab(s) (TYLENOL) 650 mg ORAL q 6 H PRN Norm, Ken, MD 650 mg at 12/29/23 0918 NaCl 0.9% iv flush bag 20 mL INTRAVENOUS PRN Yary Pelaez S, DO BP 122/55 Pulse 61 Temp 36.8 ?C (98.3 ?F) (Oral) Resp 18 Ht 157.5 cm (5' 2") Wt 104.1 kg (229 lb 8 oz) SpO2 97% BMI 41.98 kg/m? Physical Exam Vitals and nursing note reviewed. Constitutional: General: She is not in acute distress. HENT: Head: Normocephalic and atraumatic. Eyes: Conjunctiva/sclera: Conjunctivae normal. Cardiovascular: Rate and Rhythm: Normal rate and regular rhythm. Heart sounds: No murmur heard. No friction rub. No gallop. Pulmonary: Effort: Pulmonary effort is normal. No respiratory distress. Breath sounds: Normal breath sounds. No stridor. No wheezing, rhonchi or rales. Musculoskeletal: Right lower leg: No edema. Left lower leg: No edema. Skin: General: Skin is warm and dry. Coloration: Skin is not jaundiced. Neurological: General: No focal deficit present. Mental Status: She is alert. Today's Lab Data: Recent Labs 12/29/23 0511 12/28/23 0455 12/27/23 1807 WBC 7.59 < > 9.34 RBC 3.62* < > 3.91 HB 11.1* < > 12.0 HCT 34.9* < > 37.6 MCV 96.4 < > 96.2 MCH 30.7 < > 30.7 MCHC 31.8 < > 31.9 RDWCV 14.0 < > 13.9 PLT 157 < > 190 MPV 9.4 < > 9.7 NEUTP -- -- 53.2 LYMPHP -- -- 30.6 MONOP -- -- 8.6 EODINP -- -- 7.0 BASOP -- -- 0.4 ABSNEUT -- -- 4.97 ABSMONO -- -- 0.80 ABSEOSIN -- -- 0.65* ABSBASO -- -- 0.04 GLUC 102* < > 102* BUN 12 < > 10 CREAT 0.82 < > 1.08* NA 139 < > 140 K 3.8 < > 3.7 CHLOR 99 < > 94* CO2 31* < > 38* TPROT -- -- 7.0 ALB -- -- 3.5* CA 8.6 < > 9.0 ALKPHOS -- -- 87 TBILI -- -- 0 (more content not included)... [facility] 12-29-2023 Note [facility] 12-28-2023 Note HNO ID: [id number] Author: TAMI LONG DO Service: Family Practice Author Type: Resident Type: Progress Notes Filed: 12/28/2023 17:34 Note Text: Attestation signed by Tami Long DO at 12/28/2023 5:34 PM Attending Note I evaluated the patient 12/28/23 and personally participated in the clayton components. I agree with the resident's findings and plan as documented and have discussed the case and management of the patient's care with the resident. Plan of care discussed with: Provider, RN, Patient. Pt markedly improved clinically in AM, IVF and replacement of elytes No diarrhea since admission - Monitor another 24 hours DSP Signature: Tami Long DO Date: December 28, 2023 Time: 5:33 PM [facility] ([facility]) Inpatient Service PROGRESS NOTE Admit Date/Time: 12/27/2023 4:16 PM Length of Stay: 0 Brief Summary: Ana Lopes is a 78 year old female presented with past medical history of Type II DM, sick sinus syndrome s/p pacemaker, HTN, HFpEF, HLD, seizure disorder, MARY, morbid obesity with hypoventilation syndrome, COPD, interstitial pulmonary disease, lymphedema, and RAMON who was admitted to [facility] for SAQIB in setting of diarrhea and vomiting. Interval History: Patient endorsing headache and feeling dehydrated. Denied abdominal pain, current diarrhea, nausea, vomiting, chest pain, and shortness of breath. Objective Medications: Current Facility-Administered Medications Medication Dose Route Frequency Provider Last Rate Last Admin levETIRAcetam 750 mg tab(s) (KEPPRA) 750 mg ORAL BID Oscar, Lanny, DO cetirizine 10 mg tab(s) (ZYRTEC) 10 mg ORAL DAILY Oscar, Lanny, DO atorvastatin 80 mg tab(s) (LIPITOR) 80 mg ORAL DAILY Oscar, Lanny, DO albuterol HFA 90 mcg/actuation 2 Puff (PROVENTIL HFA, VENTOLIN HFA) 2 Puff INHALATION q 6 H PRN Oscar, Lanny, DO umeclidinium 62.5 mcg - vilanterol 25 mcg inhaler (ANORO ELLIPTA) 1 Inhalation INHALATION DAILY Oscar, Lanny, DO calcium-cholecalciferol (D3) 2 tablet tab(s) (OSCAL+D 250) 2 tablet ORAL DAILY Oscar, Lanny, DO prednisoLONE acetate 1 % 1 Drop (PRED FORTE) 1 Drop BOTH EYES TID Oscar, Lanny, DO aspirin 81 mg chewable tab(s) 81 mg ORAL DAILY Oscar, Lanny, DO diclofenac 1 % 4 g topical gel (VOLTAREN) 4 g TOPICAL QID Oscar, Lanny, DO heparin 5,000 Units injection 5,000 Units SUBCUTANEOUS q 12 H Oscar, Lanny, DO cefTRIAXone iv piggyback 1 g in dextrose (iso-osmotic) 50 mL (ROCEPHIN) 1 g INTRAVENOUS q 24 H Oscar, Lanny, DO dextrose 15 gram/32 mL 15 g (TRUEPLUS) 15 g ORAL PRN Oscar, Lanny, DO Or glucagon 1 mg injection 1 mg INTRAMUSCULAR PRN Oscar, Lanny, DO Or dextrose 10% iv bolus 12.5 g INTRAVENOUS PRN Oscar, Lanny, DO insulin lispro injection (rapid acting) (ADMElog) SUBCUTANEOUS w MEALS AND HS Oscar, Lanny, DO iv contrast (radiology procedure) INTRAVENOUS DIRECTED PRN Merly Gutierrez DO NaCl 0.9% iv flush bag 20 mL INTRAVENOUS PRN Yary Pelaez S, DO BP 141/64 Pulse 62 Temp 36.6 ?C (97.9 ?F) (Oral) Resp 18 Ht 157.5 cm (5' 2") Wt 104.1 kg (229 lb 8 oz) SpO2 97% BMI 41.98 kg/m? Physical Exam Constitutional: Appearance: She is obese. HENT: Head: Normocephalic and atraumatic. Cardiovascular: Rate and Rhythm: Normal rate and regular rhythm. Heart sounds: Normal heart sounds. Pulmonary: Effort: Pulmonary effort is normal. Breath sounds: Normal breath sounds. Abdominal: General: Abdomen is flat. Bowel sounds are normal. There is no distension. Palpations: Abdomen is soft. Tenderness: There is no abdominal tenderness. Musculoskeletal: Right lower leg: No edema. Left lower leg: No edema. Skin: Capillary Refill: Capillary refill takes less than 2 seconds. Neurological: Mental Status: She is alert. Today's Lab Data: Recent Labs 12/28/23 0455 12/27/23 1807 WBC 9.18 9.34 RBC 3.63* 3.91 HB 11.0* 12.0 HCT 35.2* 37.6 MCV 97.0 96.2 MCH 30.3 30.7 MCHC 31.3 31.9 RDWCV 14.0 13.9 PLT 166 190 MPV 9.6 9.7 NEUTP -- 53.2 LYMPHP -- 30.6 MONOP -- 8.6 EODINP -- 7.0 BASOP -- 0.4 ABSNEUT -- 4.97 ABSMONO -- 0.80 ABSEOSIN -- 0.65* ABSBASO -- 0.04 GLUC 88 102* BUN 13 10 CREAT 0.89 1.08* NA 141 140 K 3.5* 3.7 CHLOR 98 94* CO2 33* 38* TPROT -- 7.0 ALB -- 3.5* CA 8.3* 9.0 ALKPHOS -- 87 TBILI -- 0.4 AST -- 16 ALT -- 9 Imaging: XR CHEST 1V FRONTAL Final Result IMPRESSION: Chronic lung disease. Director Patient: RAY Transcribe Date/Time: Dec 28 2023 2:01A Dictated by : RACHANA TUTTLE MD This examination was interpreted and the report reviewed and electronically signed by: RACHANA TUTTLE MD on Dec 28 2023 2:03AM EST CT ABD/PEL W IVCON Final Result IMPRESSION: 1. No evidence of significant intra-abdominal o (more content not included)... [facility] 12-28-2023 Note [facility] 12-12-2023 Note HNO ID: [id number] Author: KHADIJAH BARNES RN Service: ? Author Type: Registered Nurse Type: Progress Notes Filed: 12/12/2023 07:55 Note Text: TRANSITION CARE MANAGEMENT (TCM) DISCHARGE TO POST ACUTE FACILITY POST ACUTE TRANSFER SUMMARY: -Pt discharged from [facility] on 12/11/2023. -Post Acute Facility Admitted to [facility] -Admitted for: Pneumonia, Unspecified organism Office PCC will follow at discharge. Khadijah Barnes RN December 12, 2023 [facility] 12-12-2023 History of Present illness Narrative TRANSITION CARE MANAGEMENT (TCM) DISCHARGE TO POST ACUTE FACILITY POST ACUTE TRANSFER SUMMARY: -Pt discharged from [facility] on 12/11/2023. -Post Acute Facility Admitted to [facility] -Admitted for: Pneumonia, Unspecified organism Office PCC will follow at discharge. Khadijah Barnes RN December 12, 2023 documented in this encounter [facility] 12-12-2023 Note Patient Outreach (AG ACM) ANA LOPES ([id number]) 1945 F DEF Date Time Provider Department 12/12/[address] [facility] During your visit today, we recorded the following information about you: Khadijah Barnes RN 12/12/2023 7:55 AM Signed TRANSITION CARE MANAGEMENT (TCM) DISCHARGE TO POST ACUTE FACILITY POST ACUTE TRANSFER SUMMARY: -Pt discharged from [facility] on 12/11/2023. -Post Acute Facility Admitted to [facility] -Admitted for: Pneumonia, Unspecified organism Office PCC will follow at discharge. Khadijah Barnes RN December 12, 2023 Allergies As of Date: 12/12/2023 (No Known Allergies) Date Reviewed: 12/06/2023 Reviewed by: Clemente Davis RN - Fully Assessed Reason for Visit: Transition Of Care [4074] Cmt: [facility] discharge to [facility] Prescriptions as of 12/12/2023 - furosemide (LASIX) 20 mg tablet Take 2 tablets by mouth once daily for 7 days, THEN 1 tablet once daily. - levETIRAcetam (KEPPRA) 750 mg tablet Take 1 tablet by mouth two times a day. - cetirizine (ZYRTEC) 10 mg tablet Take 1 tablet by mouth once daily. - metFORMIN (GLUCOPHAGE) 1,000 mg tablet Take 1 tablet by mouth two times a day with meals. - atorvastatin (LIPITOR) 80 mg tablet Take 1 tablet by mouth once daily. - polyvinyl alcohol (LIQUIFILM TEARS) 1.4 % ophthalmic solution Use 1 Drop in both eyes as needed (both eyes). - albuterol HFA (PROVENTIL HFA, VENTOLIN HFA) 90 mcg/actuation inhaler Inhale 2 Puffs as instructed every 6 hours as needed for wheezing/shortness of breath. - umeclidinium-vilanterol (ANORO ELLIPTA) 62.5-25 mcg/actuation inhaler Inhale 1 Inhalation as instructed once daily. - qcutmoc-cyvukomut-fzvjitl D3 (OYSTER SHELL CALCIUM-VITAMIN D) 500 mg-5 mcg (200 unit) per tablet Take 1 tablet by mouth once daily. - R2-cimbu-[id number]-ffimuj-bsuhinugda 1.7 mg-400 mcg- 2.4 mcg cap Take 1 capsule by mouth once daily. - fluticasone (FLONASE ALLERGY RELIEF) 50 mcg/actuation nasal spray Use 1 [place] in each nostril once daily. - aspirin 81 mg chewable tablet Take 1 tablet by mouth once daily. - diclofenac (VOLTAREN ARTHRITIS PAIN) 1 % topical gel Apply 4 g to affected area four times daily. - Biotin 10,000 mcg cap Take 1 capsule by mouth once daily. - predniSONE (DELTASONE) 20 mg tablet Take 2 tablets by mouth once daily for 2 doses. - prednisoLONE acetate (PRED FORTE) 1 % ophthalmic suspension Use 1 Drop in both eyes three times a day. 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] 10/19/2023 Anxiety disorder, unspecified [F41.9] 03/09/2023 Dependence on supplemental oxygen [Z99.81] 10/19/2023 Hyperlipidemia, unspecified [E78.5] 10/25/2023 Hypertensive heart disease with heart failure (*05/24/2023 Interstitial pulmonary disease, unspecified (HC*10/25/2023 Morbid (severe) obesity with alveolar hypoventi*03/09/2023 Obstructive sleep apnea (adult) (pediatric) [G4*03/09/2023 Presence of cardiac pacemaker [Z95.0] 10/22/2023 Rheumatoid arthritis, unspecified (HCC) [M06.9] 10/25/2023 Type 2 diabetes mellitus without complication, *03/09/2023 Sick sinus syndrome (HCC) [I49.5] 10/25/2023 Pneumonia of left lung due to infectious organi*12/04/2023 12/10/2023 Seizure disorder (HCC) [G40.909] 12/04/2023 Lymphedema [I89.0] 12/04/2023 Pneumonia, unspecified organism [J18.9] 12/04/2023 12/10/2023 Fall [W19.XXXA] 12/04/2023 12/10/2023 UTI (urinary tract infection) [N39.0] 12/05/2023 12/10/2023 Pannus, abdominal [E65] 12/05/2023 Encounter Status:Closed by KHADIJAH BARNES on 12/12/23 [facility] 12-11-2023 Note HNO ID: [id number] Author: FRANKIE YOUSSEF DO Service: Family Practice Author Type: Resident Type: Progress Notes Filed: 12/13/2023 14:16 Note Text: Documentation Query Based on your medical judgment of the clinical indicators outlined below, please clarify the condition: (Please type X next to your response and sign) Clinical Indicators: 12/04/23 11:12 12/05/23 04:29 12/06/23 01:53 12/07/23 05:44 12/08/23 04:59 WBC 7.90 9.26 7.18 7.38 7.23 12/04/23 18:33 12/04/23 23:29 12/05/23 00:35 12/05/23 00:44 12/05/23 03:47 Pulse 60 105 101 99 67 Temp 38.8 (101.9) 36.9 ?C (98.4 ?F) 38.6 ?C (101.4 ?F) Resp 32 26 22 22 12/04/23 11:17 Lactate 1.2 12/04/23 1645 Admit to inpatient 12/04/23 Chest Xray:Full report 12/04/23 IMPRESSION: Suspected centralized pulmonary vascular congestion.Left basilar atelectasis or developing pneumonia..." 12/04/23 H/P "... Pneumonia of left lung... Continue Azithromycin and Rocephin-AP/lat chest xray repeat AM-Monitor CBC, CMP..." 12/05/23 Nursing PN "... Pt's HR 105; RR 32 which triggers sepsis alert...." 12/05/23 [facility] Plan of Care PN "... Triggered sepsis for tachycardia and tachypnea. Patient was resting comfortably and tachypneic and tachycardic on exam. Lungs were positive for crackles and mild wheezes. Current plan is stat VBG, 40 mg IV Lasix, and DuoNeb now. Can consider escalating antibiotics...." 12/05/23 [facility] PN"... Interval History: Overnight tachypnea and tachycardic, triggered sepsis. Noted to have crackles AND wheezes on exam. Given 40 mg IV Lasix and Duonebs. VBG unremarkable. Febrile tmax of 101.4F given Tylenol..." 12/06/23 Family Practice PN "... Metabolic Encephalopathy... Pneumonia of left lung Acute on chronic respiratory failure with hypoxia..." 12/11/23 D/C Summary "... Reason For Admission: Fall and acute on chronic hypoxic respiratory failure altered mental status in the setting of left lung pneumonia and UTI... Patient was started on IV antibiotics. UTI resolved... Her course was complicated by worsening of breathing likely due to COPD exacerbation vs edema. She was given a dose of lasix and started on steroid course that improved her respiratory status and lung exam. Patient was started on 4 day oral steroid course, completed 2 days, and continuing on Lasix... Patient will be discharged to SNF in stable condition..." Please clarify the diagnosis associated with the following clinical indicators Left lung pneumonia and UTI only x Sepsis Severe Sepsis related to acute hypoxic respiratory failure and metabolic encephalopathy Other, please specify If Sepsis, Please clarify the present on admission status: x Present on admission Not present on admission Clinically unable to determine [facility] 12-11-2023 Note HNO ID: [id number] Author: ADAMARIS ORR RPh Service: Pharmacy Author Type: Pharmacist Type: Plan of Care Filed: 12/11/2023 12:49 Note Text: DISCHARGE MEDICATION REVIEW BY PHARMACY Patient Name: Ana Lopes Account #: Data Unavailable Admission Date: 12/04/2023 Date of Contact: December 11, 2023 Time of Contact: 12:48 PM Medication list was reviewed by a Pharmacist for drug interactions or drug related problems:Yes Below is a summary of pharmacist recommendations discussed with LIP: No Recommendations at this time from Discharge Medication List. *My recommendations were included into the synthesis and development of this medication discharge plan and discussed during plan of care patient rounds* Adamaris Orr RPh December 11, 2023 12:48 PM Pager: [phone] 12/11/2023 12:48 PM Medication List START taking these medications predniSONE 20 mg tablet Commonly known as: DELTASONE Take 2 tablets by mouth once daily for 2 doses. Start taking on: December 12, 2023 CHANGE how you take these medications furosemide 20 mg tablet Commonly known as: LASIX Take 2 tablets by mouth once daily for 7 days, THEN 1 tablet once daily. Start taking on: December 11, 2023 What changed: See the new instructions. CONTINUE taking these medications albuterol HFA 90 mcg/actuation inhaler Commonly known as: PROVENTIL HFA, VENTOLIN HFA Inhale 2 Puffs as instructed every 6 hours as needed for wheezing/shortness of breath. aspirin 81 mg chewable tablet Take 1 tablet by mouth once daily. atorvastatin 80 mg tablet Commonly known as: LIPITOR Take 1 tablet by mouth once daily. R0-mxusm-[id number]-jwfkba-akztqjuunk 1.7 mg-400 mcg- 2.4 mcg Cap Take 1 capsule by mouth once daily. Biotin 10,000 mcg Cap Take 1 capsule by mouth once daily. aaexpqm-qhdvxzxnf-btdrirg D3 500 mg-5 mcg (200 unit) per tablet Commonly known as: Oyster Shell Calcium-Vitamin D Take 1 tablet by mouth once daily. cetirizine 10 mg tablet Commonly known as: ZyrTEC Take 1 tablet by mouth once daily. diclofenac 1 % topical gel Commonly known as: VOLTAREN ARTHRITIS PAIN Apply 4 g to affected area four times daily. fluticasone 50 mcg/actuation nasal spray Commonly known as: FLONASE ALLERGY RELIEF Use 1 [place] in each nostril once daily. levETIRAcetam 750 mg tablet Commonly known as: KEPPRA Take 1 tablet by mouth two times a day. metFORMIN 1,000 mg tablet Commonly known as: GLUCOPHAGE Take 1 tablet by mouth two times a day with meals. polyvinyl alcohol 1.4 % ophthalmic solution Commonly known as: LIQUIFILM TEARS Use 1 Drop in both eyes as needed (both eyes). PRED FORTE 1 % ophthalmic suspension Generic drug: prednisoLONE acetate umeclidinium-vilanterol 62.5-25 mcg/actuation inhaler Commonly known as: ANORO ELLIPTA Inhale 1 Inhalation as instructed once daily. [facility] 12-11-2023 Note HNO ID: [id number] Author: LEW DUBON DO Service: Family Practice Author Type: Resident Type: Progress Notes Filed: 12/11/2023 20:32 Note Text: Attestation signed by Lew Dubon DO at 12/11/2023 8:32 PM Attending Note I evaluated the patient and personally participated in the clayton components. I agree with the resident's findings and plan as documented and have discussed the case and management of the patient's care with the resident. Plan of care discussed with: Provider, RN, Patient. Signature: Lew Dubon DO Date: December 11, 2023 Time: 8:31 PM [facility] ([facility]) Inpatient Service PROGRESS NOTE Admit Date/Time: 12/04/2023 10:15 AM Length of Stay: 7 Brief Summary: Ana Lopes is a 78 year old female presented with past medical history of of epilepsy, DM type II, HFpEF, COPD (on chronic 2L NC), interstitial lung disease, MARY, obesity, h/o complete heart block with pacemaker placement 10/21 admitted for acute on chronic hypoxic respiratory failure altered mental status in the setting of left lung pneumonia Interval History: Endorsed improved breathing. Denied chest pain. Urinated a lot with Lasix overnight. Objective Medications: Current Facility-Administered Medications Medication Dose Route Frequency Provider Last Rate Last Admin predniSONE 40 mg tab(s) (DELTASONE) 40 mg ORAL DAILY Mino Penn DO 40 mg at 12/10/23 0926 insulin lispro injection (rapid acting) (ADMElog) SUBCUTANEOUS w MEALS Aric Guadalupe MD 6 Units at 12/10/23 1648 acetylcysteine 100 mg/mL (10 %) 200 mg (MUCOMYST) 2 mL INHALATION q 4 H while awake Aric Guadalupe MD 200 mg at 12/11/23 0755 guaiFENesin 600 mg ER tab(s) (MUCINEX) 600 mg ORAL q 12 H Frankie Youssef, DO 600 mg at 12/10/232053 senna-docusate 8.6-50 mg 1 tablet (SENNA-S) 1 tablet ORAL BID Frankie Youssef DO 1 tablet at 12/10/232053 sodium chloride 0.65 % 2 Boulder 2 Boulder EACH NOSTRIL TID (6AM/12PM/9PM) Lew Dubon DO 2 [place]oulder at 12/10/232053 miconazole 2 % 1 application topical powder 1 application TOPICAL BID Raul Green, DO 1 application at 12/10/232099 dextrose 15 gram/32 mL 15 g (TRUEPLUS) 15 g ORAL PRN Elizabeth Mcclain DO Or glucagon 1 mg injection 1 mg INTRAMUSCULAR PRN Elizabeth Mcclain DO Or dextrose 10% iv bolus 12.5 g INTRAVENOUS PRN Elizabeth Mcclain DO heparin 5,000 Units injection 5,000 Units SUBCUTANEOUS q 8 H Justin Hairston MD 5,000 Units at 12/11/23 0541 NaCl 0.9% iv flush bag 20 mL INTRAVENOUS PRN Tami Solorzano PA-C 20 mL/hr at 12/09/23 1010 20 mL at 12/09/23 1010 levETIRAcetam 750 mg tab(s) (KEPPRA) 750 mg ORAL BID Tami Solorzano PA-C 750 mg at 12/10/232053 cetirizine 10 mg tab(s) (ZYRTEC) 10 mg ORAL DAILY Tami Solorzano PA-C 10 mg at 12/10/23916 atorvastatin 80 mg tab(s) (LIPITOR) 80 mg ORAL DAILY Tmai Solorzano PA-C 80 mg at 12/10/23 0919 umeclidinium 62.5 mcg - vilanterol 25 mcg inhaler (ANORO ELLIPTA) 1 Inhalation INHALATION DAILY Tami Solorzano PA-C 1 Inhalation at 12/10/23915 prednisoLONE acetate 1 % 1 Drop (PRED FORTE) 1 Drop BOTH EYES TID Tami Solorzano PA-C 1 Drop at 12/10/232053 aspirin 81 mg chewable tab(s) 81 mg ORAL DAILY Tami Solorzano PA-C 81 mg at 12/10/23 0917 ipratropium-albuterol 3 mL nebulizer solution (DUONEB) 3 mL INHALATION q 4 H while awake Tami Solorzano PA-C 3 mL at 12/11/23 0755 acetaminophen 650 mg tab(s) (TYLENOL) 650 mg ORAL q 6 H PRN Raul Green, BP 121/52 Pulse 62 Temp 36.4 ?C (97.6 ?F) (Oral) Resp 14 Ht 157.5 cm (5' 2") Wt 107.9 kg (237 lb 14 oz) SpO2 98% BMI 43.51 kg/m? Physical Exam Constitutional: Appearance: She is obese. HENT: Head: Normocephalic and atraumatic. Nose: Nose normal. Comments: With nasal cannula Mouth/Throat: Mouth: Mucous membranes are moist. Pharynx: Oropharynx is clear. Cardiovascular: Rate and Rhythm: Normal rate and regular rhythm. Pulses: Normal pulses. Heart sounds: Normal heart sounds. Pulmonary: Effort: Pulmonary effort is normal. Breath sounds: Wheezing (mild wheezing on exhalation) present. Comments: Coarse breath sounds Abdominal: General: Abdomen is flat. Bowel sounds are normal. Palpations: Abdomen is soft. Skin: General: Skin is warm and dry. Capillary Refill: Capillary refill takes less than 2 seconds. Neurological: General: No focal deficit present. Mental Status: She is alert and oriented to person, place, and time. Psychiatric: Mood and Affect: Mood normal. Behavior: Behavior normal. Today's Lab Data: Recent Labs 12/11/23 0642 WBC 12.78* RBC 3.87* HB 11.6 HCT 36.6 MCV 94.6 MCH 30.0 MCHC 31.7 RDWCV 13.1 PLT 348 MPV 9.1 GLUC 195* BUN 26* CREAT 0.59 N (more content not included)... [facility] 12-10-2023 Telephone encounter Note Noted, thank you! [facility] 12-10-2023 Miscellaneous Notes Noted, thank you! Order received for Cpap/Bipap supplies. Faxed order, OV notes and demographics to [facility]. Di Kaur LPN documented in this encounter [facility] 12-10-2023 Telephone encounter Note Order received for Cpap/Bipap supplies. Faxed order, OV notes and demographics to [facility]. Di Kaur LPN [facility] 12-10-2023 Note HNO ID: [id number] Author: CHITRA JACKSON ? Service: Care Management Author Type: ? Type: Care Mgt Progress Note Filed: 12/10/2023 08:30 Note Text: [facility] PRECERT NOTE [facility] DUAL COMPLETE HMO POS SNP approved [facility] for [place]. For any additional questions regarding approvals, transport or care management needs, please contact the CM assigned to this patient in the Treatment Team. SIGNATURE: Chitra Jackson DATE: December 10, 2023 TIME: 8:29 AM [facility] 12-10-2023 Note HNO ID: [id number] Author: LEW DUBON DO Service: Family Practice Author Type: Resident Type: Progress Notes Filed: 12/10/2023 20:17 Note Text: Attestation signed by Lew Dubon DO at 12/10/2023 8:17 PM Attending Note I evaluated the patient and personally participated in the clayton components. I agree with the resident's findings and plan as documented and have discussed the case and management of the patient's care with the resident. Plan of care discussed with: Provider, RN, Patient. Signature: Lew Dubon DO Date: December 10, 2023 Time: 8:17 PM [facility] Medicine ([facility]) Inpatient Service PROGRESS NOTE Admit Date/Time: 12/04/2023 10:15 AM Length of Stay: 6 Brief Summary: Ana Lopes is a 78 year old female presented with past medical history of of epilepsy, DM type II, HFpEF, COPD (on chronic 2L NC), interstitial lung disease, MARY, obesity, h/o complete heart block with pacemaker placement 10/21 admitted for acute on chronic hypoxic respiratory failure altered mental status in the setting of left lung pneumonia Interval History: Feeling better. Does not want CPAP machine. Denied SOB and endorsed cough. Still has not had BM. Objective Medications: Current Facility-Administered Medications Medication Dose Route Frequency Provider Last Rate Last Admin predniSONE 40 mg tab(s) (DELTASONE) 40 mg ORAL DAILY Mino Penn DO acetylcysteine 100 mg/mL (10 %) 200 mg (MUCOMYST) 2 mL INHALATION q 4 H while awake Aric Guadalupe MD 200 mg at 12/09/232008 guaiFENesin 600 mg ER tab(s) (MUCINEX) 600 mg ORAL q 12 H Frankie Youssef DO 600 mg at 12/09/232117 senna-docusate 8.6-50 mg 1 tablet (SENNA-S) 1 tablet ORAL BID Frankie Youssef DO 1 tablet at 12/09/232117 sodium chloride 0.65 % 2 Boulder 2 [place] EACH NOSTRIL TID (6AM/12PM/9PM) Lew Dubon DO 2 [place] at 12/07/23 1245 miconazole 2 % 1 application topical powder 1 application TOPICAL BID Raul Green DO 1 application at 12/09/232118 dextrose 15 gram/32 mL 15 g (TRUEPLUS) 15 g ORAL PRN Elizabeth Mcclain DO Or glucagon 1 mg injection 1 mg INTRAMUSCULAR PRN Elizabeth Mcclain DO Or dextrose 10% iv bolus 12.5 g INTRAVENOUS PRN Elizabeth Mcclain DO insulin lispro injection (rapid acting) (ADMElog) SUBCUTANEOUS w MEALS Elizabeth Mcclain DO 1 Units at 12/08/23 1344 heparin 5,000 Units injection 5,000 Units SUBCUTANEOUS q 8 H Justin Hairston MD 5,000 Units at 12/10/23 0511 NaCl 0.9% iv flush bag 20 mL INTRAVENOUS PRN Tami Solorzano PA-C 20 mL/hr at 12/09/23 1010 20 mL at 12/09/23 1010 levETIRAcetam 750 mg tab(s) (KEPPRA) 750 mg ORAL BID Tami Solorzano PA-C 750 mg at 12/09/232118 cetirizine 10 mg tab(s) (ZYRTEC) 10 mg ORAL DAILY Tami Solorzano PA-C 10 mg at 12/09/23 1019 atorvastatin 80 mg tab(s) (LIPITOR) 80 mg ORAL DAILY Tami Solorzano PA-C 80 mg at 12/09/23 1019 umeclidinium 62.5 mcg - vilanterol 25 mcg inhaler (ANORO ELLIPTA) 1 Inhalation INHALATION DAILY Tami Solorzano PA-C 1 Inhalation at 12/09/23 1018 prednisoLONE acetate 1 % 1 Drop (PRED FORTE) 1 Drop BOTH EYES TID Tami Solorzano PA-C 1 Drop at 12/09/232117 aspirin 81 mg chewable tab(s) 81 mg ORAL DAILY Tami Solorzano PA-C 81 mg at 12/09/23 1018 ipratropium-albuterol 3 mL nebulizer solution (DUONEB) 3 mL INHALATION q 4 H while awake Tami Solorzano PA-C 3 mL at 12/09/232008 acetaminophen 650 mg tab(s) (TYLENOL) 650 mg ORAL q 6 H PRN Raul Green DO BP 123/65 Pulse 68 Temp 36.4 ?C (97.5 ?F) (Oral) Resp 18 Ht 157.5 cm (5' 2") Wt 109.3 kg (240 lb 15.4 oz) SpO2 95% BMI 44.07 kg/m? Physical Exam Constitutional: Comments: Eating breakfast HENT: Head: Normocephalic and atraumatic. Mouth/Throat: Mouth: Mucous membranes are moist. Cardiovascular: Rate and Rhythm: Normal rate and regular rhythm. Pulmonary: Effort: Pulmonary effort is normal. Breath sounds: Normal breath sounds. No rales. Wheezes: right and left upper lobes on exhale. Abdominal: General: Abdomen is flat. Palpations: Abdomen is soft. Tenderness: There is no abdominal tenderness. Neurological: General: No focal deficit present. Mental Status: She is oriented to person, place, and time. Today's Lab Data: Recent Labs 12/09/23 0246 WBC 10.03 RBC 3.94 HB 11.9 HCT 39.0 MCV 99.0 MCH 30.2 MCHC 30.5 RDWCV 13.3 PLT 274 MPV 10.2 GLUC 123* BUN 17 CREAT 0.77 NA 139 K 4.2 CHLOR 102 CO2 29 CA 8.1* Imaging: XR CHEST 2V FRONTAL/LAT Final Result IMPRESSION: Cardiomegaly, bilateral hilar prominence and bilateral interstitial parenchymal changes as described above. Correlation with prior outside exams and follow-up exams are recommended. Director Patient: RAAD (more content not included)... [facility] 12-09-2023 Note HNO ID: [id number] Author: LEW DUBON DO Service: Family Practice Author Type: Resident Type: Progress Notes Filed: 12/09/2023 13:51 Note Text: Attestation signed by Lew Dubon DO at 12/09/2023 1:51 PM Attending Note I evaluated the patient and personally participated in the clayton components. I agree with the resident's findings and plan as documented and have discussed the case and management of the patient's care with the resident. Plan of care discussed with: Provider, RN, Patient. Still with cough and chest congestion. Adjust therapy. Monitor. Anticipate discharge potential in the next 1-2 days. Signature: Lew Dubon DO Date: December 09, 2023 Time: 1:51 PM [facility] Medicine ([facility]) Inpatient Service PROGRESS NOTE Admit Date/Time: 12/04/2023 10:15 AM Length of Stay: 5 Brief Summary: Ana Lopes is a 78 year old female presented with past medical history of of epilepsy, DM type II, HFpEF, COPD (on chronic 2L NC), interstitial lung disease, MARY, obesity, h/o complete heart block with pacemaker placement 10/21 admitted for acute on chronic hypoxic respiratory failure altered mental status in the setting of left lung pneumonia Interval History: Patient feels like "hell". Endorsed shortness of breath and rib pain. Feels she still has a cold. No bowel movement in days. Objective Medications: Current Facility-Administered Medications Medication Dose Route Frequency Provider Last Rate Last Admin guaiFENesin 600 mg ER tab(s) (MUCINEX) 600 mg ORAL q 12 H Frankie Youssef DO 600 mg at 12/08/232048 senna-docusate 8.6-50 mg 1 tablet (SENNA-S) 1 tablet ORAL BID Frankie Youssef DO 1 tablet at 12/08/232048 azithromycin 500 mg tab(s) (ZITHROMAX) 500 mg ORAL DAILY Adamaris Orr RPh 500 mg at 12/08/23 0811 benzonatate 100 mg cap(s) (TESSALON PERLE) 100 mg ORAL TID PRN Lew Dubon DO 100 mg at 12/06/23 1734 sodium chloride 0.65 % 2 [place] 2 [place] EACH NOSTRIL TID (6AM/12PM/9PM) Lew Dubon DO 2 [place] at 12/07/23 1245 miconazole 2 % 1 application topical powder 1 application TOPICAL BID Raul Green DO 1 application at 12/08/232048 dextrose 15 gram/32 mL 15 g (TRUEPLUS) 15 g ORAL PRN Elizabeth Mcclain DO Or glucagon 1 mg injection 1 mg INTRAMUSCULAR PRN Elizabeth Mcclain DO Or dextrose 10% iv bolus 12.5 g INTRAVENOUS PRN Elizabeth Mcclain DO insulin lispro injection (rapid acting) (ADMElog) SUBCUTANEOUS w MEALS Elizabeth Mcclain DO 1 Units at 12/08/23 1344 heparin 5,000 Units injection 5,000 Units SUBCUTANEOUS q 8 H Justin Hairston MD 5,000 Units at 12/09/23 0543 NaCl 0.9% iv flush bag 20 mL INTRAVENOUS PRN Tami Solorzano PA-C cefTRIAXone iv piggyback 1 g in dextrose (iso-osmotic) 50 mL (ROCEPHIN) 1 g INTRAVENOUS q 24 H Tami Solorzano PA-C Stopped at 12/08/23 0841 levETIRAcetam 750 mg tab(s) (KEPPRA) 750 mg ORAL BID Tami Solorzano PA-C 750 mg at 12/08/23 204 cetirizine 10 mg tab(s) (ZYRTEC) 10 mg ORAL DAILY Tami Solorzano PA-C 10 mg at 12/08/23 0900 atorvastatin 80 mg tab(s) (LIPITOR) 80 mg ORAL DAILY Tami Solorzano PA-C 80 mg at 12/08/23 0811 umeclidinium 62.5 mcg - vilanterol 25 mcg inhaler (ANORO ELLIPTA) 1 Inhalation INHALATION DAILY Tami Solorzano PA-C 1 Inhalation at 12/08/23 0811 prednisoLONE acetate 1 % 1 Drop (PRED FORTE) 1 Drop BOTH EYES TID Tami Solorzano PA-C 1 Drop at 12/08/23 205 furosemide 20 mg tab(s) (LASIX) 20 mg ORAL DAILY Tami Solorzano PA-C 20 mg at 12/08/23 0818 aspirin 81 mg chewable tab(s) 81 mg ORAL DAILY Jeanine KEREN Garrett 81 mg at 12/08/23 0811 ipratropium-albuterol 3 mL nebulizer solution (DUONEB) 3 mL INHALATION q 4 H while awake Tami Solorzano PA-C 3 mL at 12/08/23 1935 acetaminophen 650 mg tab(s) (TYLENOL) 650 mg ORAL q 6 H PRN Norma, Salam, DO BP 95/61 Pulse 110 Temp 36.2 ?C (97.2 ?F) (Axillary) Resp 20 Ht 157.5 cm (5' 2") Wt 109.3 kg (240 lb 15.4 oz) SpO2 93% BMI 44.07 kg/m? Physical Exam Constitutional: Comments: Finishing Duoneb treatment HENT: Head: Normocephalic and atraumatic. Mouth/Throat: Mouth: Mucous membranes are moist. Eyes: Pupils: Pupils are equal, round, and reactive to light. Cardiovascular: Rate and Rhythm: Normal rate and regular rhythm. Pulmonary: Breath sounds: Examination of the right-upper field reveals decreased breath sounds, wheezing and rales. Examination of the left-upper field reveals decreased breath sounds, wheezing and rales. Examination of the right-middle field reveals decreased breath sounds, wheezing and rales. Examination of the left-middle field reveals decreased breath sounds, wheezing and rales. Examination of the right-lower field reveals decreased b (more content not included)... [facility] 12-08-2023 Note HNO ID: [id number] Author: DARCY MOREIRA LISW Service: Care Management Author Type: Air Chief Marshal Type: Care Mgt Progress Note Filed: 12/08/2023 16:19 Note Text: CARE MANAGEMENT PROGRESS NOTE SERVICE DATE: 12/08/2023 SERVICE TIME: 4:17 PM LOS: 4 days Needs Prior to Discharge: Insurance Authorization SW spoke with son and [employer] [place] is FOC. Patient was seen by PT/OT today and updated clinicals have been sent to [facility]. Physician attestation completed, will need pending discharge order. SIGNATURE: CHERRIE Caballero PATIENT NAME: Ana Lopes DATE: December 08, 2023 TIME: 4:16 PM PAGER/CONTACT #: [phone] [facility] 12-08-2023 Note HNO ID: [id number] Author: LEW DUBON DO Service: Care Management Author Type: Air Chief Marshal Type: Care Mgt Progress Note Filed: 12/08/2023 11:46 Note Text: Attestation signed by Lew Dubon DO at 12/08/2023 11:46 AM Attending Note I have reviewed the care management progress note and agree with documented certification required. Signature: Lew Dubon DO Date: December 08, 2023 Time: 11:45 AM CARE MANAGEMENT PROGRESS NOTE SERVICE DATE: 12/08/2023 SERVICE TIME: 11:42 AM LOS: 4 days Physician Certification of Less Than 30 Days Post-Acute Nursing Facility Needed Earliest Possible Discharge Date: 12/08/23 To the best of my knowledge, all information provided about the individual is a true and an accurate reflection of Ana Lopes's needs. I certify that following the inpatient level of care, a post-acute nursing facility stay is required for less than 30 days related to the condition(s) for which the patient was treated during the inpatient level of care: Principal Problem: Fall Active Problems: Chronic respiratory failure with hypoxia (HCC) Chronic obstructive pulmonary disease, unspecified (HCC) Chronic diastolic (congestive) heart failure (HCC) Body mass index (BMI) 45.0-49.9, adult (HCC) Atrioventricular block, complete (HCC) Dependence on supplemental oxygen Hyperlipidemia, unspecified Hypertensive heart disease with heart failure (HCC) Interstitial pulmonary disease, unspecified (HCC) Morbid (severe) obesity with alveolar hypoventilation (HCC) Obstructive sleep apnea (adult) (pediatric) Presence of cardiac pacemaker Rheumatoid arthritis, unspecified (HCC) Type 2 diabetes mellitus without complication, without long-term current use of insulin (HCC) Pneumonia of left lung due to infectious organism Seizure disorder (HCC) Lymphedema Pneumonia, unspecified organism UTI (urinary tract infection) Pannus, abdominal Resolved Problems: * No resolved hospital problems. * Physician: Lew Dubon DO SIGNATURE: EULALIA Han PATIENT NAME: Ana Lopes DATE: December 08, 2023 TIME: 11:42 AM PAGER/CONTACT #: [phone] [facility] 12-08-2023 Note HNO ID: [id number] Author: LEW DUBON DO Service: Family Practice Author Type: Resident Type: Progress Notes Filed: 12/08/2023 11:23 Note Text: Attestation signed by Lew Dubon DO at 12/08/2023 11:23 AM Attending Note I evaluated the patient and personally participated in the clayton components. I agree with the resident's findings and plan as documented and have discussed the case and management of the patient's care with the resident. Plan of care discussed with: Provider, RN, Patient. Ana sounds a bit more congested today. Will add guaifenesin to help break up some of the chest mucus. Anticipate discharge to skilled facility for rehab secondary to weakness in the next 24-48 hours Signature: Lew Dubon DO Date: December 08, 2023 Time: 11:22 AM [facility] Medicine ([facility]) Inpatient Service PROGRESS NOTE Admit Date/Time: 12/04/2023 10:15 AM Length of Stay: 4 Brief Summary: Ana Lopes is a 78 year old female presented with past medical history of of epilepsy, DM type II, HFpEF, COPD (on chronic 2L NC), interstitial lung disease, MARY, obesity, h/o complete heart block with pacemaker placement 10/21 admitted for acute on chronic hypoxic respiratory failure altered mental status in the setting of left lung pneumonia Interval History: No acute events overnight. WBC stable within normal limits. Creatinine stable and within normal limits. Stable hyper glycemia noted. Patient endorses continued sensation of chest congestion and productive cough. She denies fevers or chills at this time. She also denies chest pain or new onset shortness of breath. She reports that she will not utilize CPAP therapy as it is not tolerable to her. Objective Medications: Current Facility-Administered Medications Medication Dose Route Frequency Provider Last Rate Last Admin azithromycin 500 mg tab(s) (ZITHROMAX) 500 mg ORAL DAILY Adamaris Orr RPh 500 mg at 12/07/23 0941 benzonatate 100 mg cap(s) (TESSALON PERLE) 100 mg ORAL TID PRN Lew Dubon DO 100 mg at 12/06/23 1734 sodium chloride 0.65 % 2 [place] 2 [place] EACH NOSTRIL TID (6AM/12PM/9PM) Lew Dubon DO 2 [place] at 12/07/23 1245 miconazole 2 % 1 application topical powder 1 application TOPICAL BID Raul Green DO 1 application at 12/07/23 2116 dextrose 15 gram/32 mL 15 g (TRUEPLUS) 15 g ORAL PRN Elizabeth Mcclain DO Or glucagon 1 mg injection 1 mg INTRAMUSCULAR PRN Elizabeth Mcclain DO Or dextrose 10% iv bolus 12.5 g INTRAVENOUS PRN Elizabeth Mcclain DO insulin lispro injection (rapid acting) (ADMElog) SUBCUTANEOUS w MEALS Elizabeth Mcclain DO 1 Units at 12/07/23 1244 heparin 5,000 Units injection 5,000 Units SUBCUTANEOUS q 8 H Justin Hairston MD 5,000 Units at 12/08/23 0537 NaCl 0.9% iv flush bag 20 mL INTRAVENOUS PRN Tami Solorzano PA-C cefTRIAXone iv piggyback 1 g in dextrose (iso-osmotic) 50 mL (ROCEPHIN) 1 g INTRAVENOUS q 24 H Tami Solorzano PA-C Stopped at 12/07/23 1011 levETIRAcetam 750 mg tab(s) (KEPPRA) 750 mg ORAL BID Tami Solorzano PA-C 750 mg at 12/07/232113 cetirizine 10 mg tab(s) (ZYRTEC) 10 mg ORAL DAILY Tami Solorzano PA-C 10 mg at 12/07/23 0941 atorvastatin 80 mg tab(s) (LIPITOR) 80 mg ORAL DAILY Tami Solorzano PA-C 80 mg at 12/07/23 0940 umeclidinium 62.5 mcg - vilanterol 25 mcg inhaler (ANORO ELLIPTA) 1 Inhalation INHALATION DAILY Tami Solorzano PA-C 1 Inhalation at 12/07/23 0941 prednisoLONE acetate 1 % 1 Drop (PRED FORTE) 1 Drop BOTH EYES TID Tami Solorzano PA-C 1 Drop at 12/07/232115 furosemide 20 mg tab(s) (LASIX) 20 mg ORAL DAILY Tami Solorzano PA-C 20 mg at 12/07/23 0941 aspirin 81 mg chewable tab(s) 81 mg ORAL DAILY Tami Solorzano PA-C 81 mg at 12/07/23 0940 ipratropium-albuterol 3 mL nebulizer solution (DUONEB) 3 mL INHALATION q 4 H while awake Tami Solorzano PA-C 3 mL at 12/07/23 1934 acetaminophen 650 mg tab(s) (TYLENOL) 650 mg ORAL q 6 H PRN Raul Green, DO BP 118/60 Pulse 90 Temp 37.1 ?C (98.7 ?F) (Oral) Resp 16 Ht 157.5 cm (5' 2") Wt 110.9 kg (244 lb 7.8 oz) SpO2 95% BMI 44.72 kg/m? Physical Exam Vitals and nursing note reviewed. Constitutional: General: She is not in acute distress. Appearance: She is not toxic-appearing or diaphoretic. HENT: Nose: Nose normal. Eyes: Extraocular Movements: Extraocular movements intact. Conjunctiva/sclera: Conjunctivae normal. Pupils: Pupils are equal, round, and reactive to light. Cardiovascular: Rate and Rhythm: Normal rate and regular rhythm. Heart sounds: Normal heart sounds. Pulmonary: Effort: No tachypnea, accessory muscle usage, respiratory distress or retractions. Breath sounds: Examination of the right-upper fiel (more content not included)... [facility] 12-07-2023 Note HNO ID: [id number] Author: LEW DUBON DO Service: Family Practice Author Type: Resident Type: Progress Notes Filed: 12/07/2023 21:47 Note Text: Attestation signed by Lew Dubon DO at 12/07/2023 9:47 PM Attending Note I evaluated the patient and personally participated in the clayton components. I agree with the resident's findings and plan as documented and have discussed the case and management of the patient's care with the resident. Plan of care discussed with: Provider, RN, Patient. Signature: Lew Dubon DO Date: December 07, 2023 Time: 9:47 PM [facility] Family Medicine ([facility]) Inpatient Service PROGRESS NOTE Admit Date/Time: 12/04/2023 10:15 AM Length of Stay: 3 Brief Summary: Ana Lopes is a 78 year old female presented with past medical history of of epilepsy, DM type II, HFpEF, COPD (on chronic 2L NC), interstitial lung disease, MARY, obesity, h/o complete heart block with pacemaker placement 10/21 admitted for acute on chronic hypoxic respiratory failure altered mental status in the setting of left lung pneumonia Interval History: Patient denies any overnight events. She states that she still has a persistent cough that has not improved much since admission. Patient states that she is willing to go to a SNF but does not want to go out of state, as her son would like for her to move closer to him. Objective Medications: Current Facility-Administered Medications Medication Dose Route Frequency Provider Last Rate Last Admin azithromycin 500 mg tab(s) (ZITHROMAX) 500 mg ORAL DAILY Adamaris Orr RPh 500 mg at 12/07/23 0941 benzonatate 100 mg cap(s) (TESSALON PERLE) 100 mg ORAL TID PRN Lew Dubon DO 100 mg at 12/06/23 1734 sodium chloride 0.65 % 2 [place] 2 [place] EACH NOSTRIL TID (6AM/12PM/9PM) Lew Dubon DO 2 [place] at 12/07/23 1245 miconazole 2 % 1 application topical powder 1 application TOPICAL BID NormaRaul, DO 1 application at 12/07/23 0941 dextrose 15 gram/32 mL 15 g (TRUEPLUS) 15 g ORAL PRN Elizabeth Mcclain DO Or glucagon 1 mg injection 1 mg INTRAMUSCULAR PRN Elizabeth Mcclain DO Or dextrose 10% iv bolus 12.5 g INTRAVENOUS PRN Elizabeth Mcclain DO insulin lispro injection (rapid acting) (ADMElog) SUBCUTANEOUS w MEALS Elizabeth Mcclain DO 1 Units at 12/07/23 1244 heparin 5,000 Units injection 5,000 Units SUBCUTANEOUS q 8 H Justin Hairston MD 5,000 Units at 12/07/23 1259 NaCl 0.9% iv flush bag 20 mL INTRAVENOUS PRN Tami Solorzano PA-C cefTRIAXone iv piggyback 1 g in dextrose (iso-osmotic) 50 mL (ROCEPHIN) 1 g INTRAVENOUS q 24 H Tami Solorzano PA-C Stopped at 12/07/23 1011 levETIRAcetam 750 mg tab(s) (KEPPRA) 750 mg ORAL BID Tami Solorzano PA-C 750 mg at 12/07/23 0941 cetirizine 10 mg tab(s) (ZYRTEC) 10 mg ORAL DAILY Tami Solorzano PA-C 10 mg at 12/07/23 0941 atorvastatin 80 mg tab(s) (LIPITOR) 80 mg ORAL DAILY Tami Solorzano PA-C 80 mg at 12/07/23 0940 umeclidinium 62.5 mcg - vilanterol 25 mcg inhaler (ANORO ELLIPTA) 1 Inhalation INHALATION DAILY Tami Solorzano PA-C 1 Inhalation at 12/07/23 0941 prednisoLONE acetate 1 % 1 Drop (PRED FORTE) 1 Drop BOTH EYES TID Tami Solorzano PA-C 1 Drop at 12/07/23 1245 furosemide 20 mg tab(s) (LASIX) 20 mg ORAL DAILY Tami Solorzano PA-C 20 mg at 12/07/23 0941 aspirin 81 mg chewable tab(s) 81 mg ORAL DAILY Tami Solorzano PA-C 81 mg at 12/07/23 0940 ipratropium-albuterol 3 mL nebulizer solution (DUONEB) 3 mL INHALATION q 4 H while awake Tami Solorzano PA-C 3 mL at 12/07/23 1133 acetaminophen 650 mg tab(s) (TYLENOL) 650 mg ORAL q 6 H PRN Norma, Salam, DO BP 108/55 Pulse 89 Temp 36.9 ?C (98.4 ?F) (Oral) Resp 20 Ht 157.5 cm (5' 2") Wt 110.2 kg (242 lb 15.2 oz) SpO2 97% BMI 44.44 kg/m? Physical Exam Vitals and nursing note reviewed. Constitutional: General: She is not in acute distress. Appearance: She is ill-appearing. HENT: Head: Normocephalic and atraumatic. Eyes: Extraocular Movements: Extraocular movements intact. Pupils: Pupils are equal, round, and reactive to light. Cardiovascular: Rate and Rhythm: Regular rhythm. Tachycardia present. Pulses: Normal pulses. Heart sounds: Normal heart sounds. No murmur heard. No friction rub. No gallop. Pulmonary: Effort: Pulmonary effort is normal. No respiratory distress. Breath sounds: Examination of the left-lower field reveals rales. Rales present. No rhonchi. Comments: On 2L NC Abdominal: Palpations: Abdomen is soft. Comments: Pannus in left abdomen non-tender. No active drainage Musculoskeletal: Right lower le+ Edema present. Left lower le+ Edema present. Skin: General: Skin is warm. Capillary Refill: Capillary re (more content not included)... [facility] 12-06-2023 Note HNO ID: [id number] Author: LEW DUBON DO Service: Family Practice Author Type: Resident Type: Progress Notes Filed: 12/06/2023 20:33 Note Text: Attestation signed by Lew Dubon DO at 12/06/2023 8:33 PM Attending Note I evaluated the patient and personally participated in the clayton components. I agree with the resident's findings and plan as documented and have discussed the case and management of the patient's care with the resident. Plan of care discussed with: Provider, RN, Patient. Metabolic Encephalopathy Signature: Lew Dubon DO Date: December 06, 2023 Time: 8:33 PM [facility] Family Medicine ([facility]) Inpatient Service PROGRESS NOTE Admit Date/Time: 12/04/2023 10:15 AM Length of Stay: 2 Brief Summary: Ana Lopes is a 78 year old female presented with past medical history of of epilepsy, DM type II, HFpEF, COPD (on chronic 2L NC), interstitial lung disease, MARY, obesity, h/o complete heart block with pacemaker placement 10/21 admitted for acute on chronic hypoxic respiratory failure altered mental status in the setting of left lung pneumonia Interval History: NAONE Tolerating PO, denies chest pain, SOB, N/V Hemodynamically stable Objective Medications: Current Facility-Administered Medications Medication Dose Route Frequency Provider Last Rate Last Admin miconazole 2 % 1 application topical powder 1 application TOPICAL BID Norma Salam, DO 1 application at 12/05/232019 dextrose 15 gram/32 mL 15 g (TRUEPLUS) 15 g ORAL PRN Elizabeth Mcclain DO Or glucagon 1 mg injection 1 mg INTRAMUSCULAR PRN Elizabeth Mcclain DO Or dextrose 10% iv bolus 12.5 g INTRAVENOUS PRN Elizabeth Mcclain DO insulin lispro injection (rapid acting) (ADMElog) SUBCUTANEOUS w MEALS Elizabeth Mcclain DO 1 Units at 12/05/23 1218 heparin 5,000 Units injection 5,000 Units SUBCUTANEOUS q 8 H Justin Hairston MD 5,000 Units at 12/06/23 0006 NaCl 0.9% iv flush bag 20 mL INTRAVENOUS PRN Tami Solorzano PA-C cefTRIAXone iv piggyback 1 g in dextrose (iso-osmotic) 50 mL (ROCEPHIN) 1 g INTRAVENOUS q 24 H Tami Solorzano PA-C Stopped at 12/05/23 09 azithromycin 500 mg in D5W 250 mL Vial-Bag (ZITHROMAX) 500 mg INTRAVENOUS DAILY Tami Solorzano PA-C Stopped at 12/05/23 09 levETIRAcetam 750 mg tab(s) (KEPPRA) 750 mg ORAL BID Tami Solorzano PA-C 750 mg at 12/05/232016 cetirizine 10 mg tab(s) (ZYRTEC) 10 mg ORAL DAILY Tami Solorzano PA-C 10 mg at 12/05/23 08 atorvastatin 80 mg tab(s) (LIPITOR) 80 mg ORAL DAILY Tami Solorzano PA-C 80 mg at 12/05/23 08 umeclidinium 62.5 mcg - vilanterol 25 mcg inhaler (ANORO ELLIPTA) 1 Inhalation INHALATION DAILY Tami Solorzano PA-C 1 Inhalation at 12/05/23 0848 prednisoLONE acetate 1 % 1 Drop (PRED FORTE) 1 Drop BOTH EYES TID Tami Solorzano PA-C 1 Drop at 12/05/232017 furosemide 20 mg tab(s) (LASIX) 20 mg ORAL DAILY Jeanine KEREN Garrett 20 mg at 12/05/23 0845 aspirin 81 mg chewable tab(s) 81 mg ORAL DAILY Tami Solorzano PA-C 81 mg at 12/05/23 0845 ipratropium-albuterol 3 mL nebulizer solution (DUONEB) 3 mL INHALATION q 4 H while awake Tami Solorzano PA-C 3 mL at 12/05/231948 acetaminophen 650 mg tab(s) (TYLENOL) 650 mg ORAL q 6 H PRN Raul Green, DO BP 103/61 Pulse 100 Temp 37.1 ?C (98.7 ?F) (Axillary) Resp 18 Ht 157.5 cm (5' 2") Wt 115.2 kg (253 lb 15.5 oz) SpO2 96% BMI 46.45 kg/m? Physical Exam Constitutional: General: She is not in acute distress. Appearance: She is ill-appearing. HENT: Head: Normocephalic and atraumatic. Mouth/Throat: Mouth: Mucous membranes are dry. Pharynx: No oropharyngeal exudate or posterior oropharyngeal erythema. Eyes: Extraocular Movements: Extraocular movements intact. Pupils: Pupils are equal, round, and reactive to light. Cardiovascular: Rate and Rhythm: Regular rhythm. Tachycardia present. Pulses: Normal pulses. Heart sounds: Normal heart sounds. No murmur heard. No friction rub. No gallop. Pulmonary: Effort: Pulmonary effort is normal. No respiratory distress. Breath sounds: Examination of the left-lower field reveals rales. Rales present. No rhonchi. Comments: On 2L NC Abdominal: Palpations: Abdomen is soft. There is no mass. Tenderness: There is no abdominal tenderness. There is no guarding. Comments: Pannus in left abdomen non-tender. No active drainage Musculoskeletal: Right lower le+ Edema present. Left lower le+ Edema present. Skin: General: Skin is warm. Capillary Refill: Capillary refill takes less than 2 seconds. Neurological: Mental Status: She is alert and oriented to person, place, and time. Mental status is at baseline. Motor: Weakness present. Today's Lab Data: Recen (more content not included)... [facility] 12-05-2023 Note HNO ID: [id number] Author: ADAMARIS ORR RPh Service: Pharmacy Author Type: Pharmacist Type: Plan of Care Filed: 12/05/2023 14:23 Note Text: PHARMACY MEDICATION REVIEW Patient Name: Ana Lopes : 1945 The following medications were updated within the [employer] medication list: Medications ADDED to [employer] medication list N/A Medications CHANGED on [employer] medication list N/A Medications REMOVED from [employer] medication list N/A Additional comments: Significant past medications:Levetiracetam - unclear if patient truly has has sustained history of seizures. Patient has history of altered mental status, falls, and questionable seizure history. Patient with behavioral changes, looking into levetiracetam level during presentation admission and evaluation of potential ULISSES. The below information represents the best possible medication history: Yes Medication history completed by: Pharmacist: Adamaris Orr RPh Source of history: Patient: Reliability of source: unable to provide, longterm/Other ROSEANN Luu - patient discharged following surgical convalescence on 11/16, Pharmacy records: [facility] and [facility] pharmacy, and [facility] records Medication nonadherence identified: Unable to assess Reconciliation completed: Yes Completed by: Adamaris Orr RPh Medications intentionally held at admission: Metformin Patient interested in Bedside Delivery Services or using OP Pharmacy at discharge? Unable to assess - patient very altered presently, unclear dispo plan Preferred outpatient pharmacy: [facility] [address] [address] [facility] [phone] [id number] Allergies: No Known Allergies Prior to Admission Medications Prescriptions Last Dose Informant Patient Reported? Taking? [id number] 1.7 mg-400 mcg- 2.4 mcg cap Yes Yes Sig: Take 1 capsule by mouth once daily. Biotin 10,000 mcg cap Yes Yes Sig: Take 1 capsule by mouth once daily. albuterol HFA (PROVENTIL HFA, VENTOLIN HFA) 90 mcg/actuation inhaler Yes Yes Sig: Inhale 2 Puffs as instructed every 6 hours as needed for wheezing/shortness of breath. aspirin 81 mg chewable tablet Yes Yes Sig: Take 81 mg by mouth once daily. atorvastatin (LIPITOR) 80 mg tablet Yes Yes Sig: Take 80 mg by mouth once daily. cuipzqj-muytlxxlb-kiziaex D3 (OYSTER SHELL CALCIUM-VITAMIN D) 500 mg-5 mcg (200 unit) per tablet Yes Yes Sig: Take 1 tablet by mouth once daily. cetirizine (ZYRTEC) 10 mg tablet Yes Yes Sig: Take 10 mg by mouth once daily. diclofenac (VOLTAREN ARTHRITIS PAIN) 1 % topical gel Yes Yes Sig: Apply 4 g to affected area four times daily. fluticasone (FLONASE ALLERGY RELIEF) 50 mcg/actuation nasal spray Yes Yes Sig: Use 1 [place] in each nostril once daily. furosemide (LASIX) 20 mg tablet Yes Yes Sig: Take 20 mg by mouth once daily. levETIRAcetam (KEPPRA) 750 mg tablet Yes Yes Sig: Take 750 mg by mouth two times a day. metFORMIN (GLUCOPHAGE) 1,000 mg tablet Yes Yes Sig: Take 1,000 mg by mouth two times a day with meals. polyvinyl alcohol (LIQUIFILM TEARS) 1.4 % ophthalmic solution Yes Yes Sig: Use 1 Drop in both eyes as needed (both eyes). prednisoLONE acetate (PRED FORTE) 1 % ophthalmic suspension Yes Yes Sig: Use 1 Drop in both eyes three times a day. umeclidinium-vilanterol (ANORO ELLIPTA) 62.5-25 mcg/actuation inhaler Yes Yes Sig: Inhale 1 Puff as instructed once daily. Facility-Administered Medications: None Adamaris Orr RPh 12/05/2023 [facility] 12-05-2023 Note HNO ID: [id number] Author: LEW DUBON DO Service: Family Practice Author Type: Resident Type: Progress Notes Filed: 12/05/2023 21:46 Note Text: Attestation signed by Lew Dubon DO at 12/05/2023 9:46 PM Attending Note I evaluated the patient and personally participated in the clayton components. I agree with the resident's findings and plan as documented and have discussed the case and management of the patient's care with the resident. Plan of care discussed with: Provider, RN, Patient. Signature: Lew Dubon DO Date: December 05, 2023 Time: 9:46 PM [facility] ([facility]) Inpatient Service PROGRESS NOTE Admit Date/Time: 12/04/2023 10:15 AM Length of Stay: 1 Brief Summary: Ana Lopes is a 78 year old female presented with past medical history of of epilepsy, DM type II, HFpEF, COPD (on chronic 2L NC), interstitial lung disease, MARY, obesity, h/o complete heart block with pacemaker placement 10/21 admitted for acute on chronic hypoxic respiratory failure altered mental status in the setting of left lung pneumonia Interval History: Overnight tachypnea and tachycardic, triggered sepsis. Noted to have crackles AND wheezes on exam. Given 40 mg IV Lasix and Duonebs. VBG unremarkable. Febrile tmax of 101.4F given Tylenol This morning vitals stable, Afebrile Tolerating PO Mental status at baseline Objective Medications: Current Facility-Administered Medications Medication Dose Route Frequency Provider Last Rate Last Admin miconazole 2 % 1 application topical powder 1 application TOPICAL BID Raul Green DO 1 application at 12/05/23 0848 dextrose 15 gram/32 mL 15 g (TRUEPLUS) 15 g ORAL PRN Elizabeth Mcclain DO Or glucagon 1 mg injection 1 mg INTRAMUSCULAR PRN Elizabeth Mcclain DO Or dextrose 10% iv bolus 12.5 g INTRAVENOUS PRN Elizabeth Mcclain DO insulin lispro injection (rapid acting) (ADMElog) SUBCUTANEOUS w Elizabeth Hill DO 1 Units at 12/05/23 1218 heparin 5,000 Units injection 5,000 Units SUBCUTANEOUS q 8 H Justin Hairston MD NaCl 0.9% iv flush bag 20 mL INTRAVENOUS PRN Tami Solorzano PA-C cefTRIAXone iv piggyback 1 g in dextrose (iso-osmotic) 50 mL (ROCEPHIN) 1 g INTRAVENOUS q 24 H Tami Solorzano PA-C Stopped at 12/05/23 0915 azithromycin 500 mg in D5W 250 mL Vial-Bag (ZITHROMAX) 500 mg INTRAVENOUS DAILY Tami Solorzano PA-C Stopped at 12/05/23 0945 levETIRAcetam 750 mg tab(s) (KEPPRA) 750 mg ORAL BID Tami Solorzano PA-C 750 mg at 12/05/23 0845 cetirizine 10 mg tab(s) (ZYRTEC) 10 mg ORAL DAILY Tami Solorzano PA-C 10 mg at 12/05/23 0845 atorvastatin 80 mg tab(s) (LIPITOR) 80 mg ORAL DAILY Tami Solorzano PA-C 80 mg at 12/05/23 0845 umeclidinium 62.5 mcg - vilanterol 25 mcg inhaler (ANORO ELLIPTA) 1 Inhalation INHALATION DAILY Tami Solorzano PA-C 1 Inhalation at 12/05/23 0848 prednisoLONE acetate 1 % 1 Drop (PRED FORTE) 1 Drop BOTH EYES TID Tami Solorzano PA-C 1 Drop at 12/05/23 1218 furosemide 20 mg tab(s) (LASIX) 20 mg ORAL DAILY Tami Solorzano PA-C 20 mg at 12/05/23 0845 aspirin 81 mg chewable tab(s) 81 mg ORAL DAILY Tami Solorzano PA-C 81 mg at 12/05/23 0845 ipratropium-albuterol 3 mL nebulizer solution (DUONEB) 3 mL INHALATION q 4 H while awake Tami Solorzano PA-C 3 mL at 12/05/23 1107 acetaminophen 650 mg tab(s) (TYLENOL) 650 mg ORAL q 6 H PRN Raul Green DO BP (!) 105/46 Pulse (!) 59 Temp 36.5 ?C (97.7 ?F) (Oral) Resp 19 Ht 157.5 cm (5' 2") Wt 109.2 kg (240 lb 11.9 oz) SpO2 95% BMI 44.03 kg/m? Physical Exam Constitutional: General: She is not in acute distress. Appearance: She is ill-appearing. HENT: Head: Normocephalic and atraumatic. Mouth/Throat: Mouth: Mucous membranes are dry. Pharynx: No oropharyngeal exudate or posterior oropharyngeal erythema. Eyes: Extraocular Movements: Extraocular movements intact. Pupils: Pupils are equal, round, and reactive to light. Cardiovascular: Rate and Rhythm: Regular rhythm. Tachycardia present. Pulses: Normal pulses. Heart sounds: Normal heart sounds. No murmur heard. No friction rub. No gallop. Pulmonary: Effort: Pulmonary effort is normal. No respiratory distress. Breath sounds: Examination of the left-lower field reveals rales. Rales present. No rhonchi. Comments: On 2L NC Abdominal: Palpations: Abdomen is soft. There is no mass. Tenderness: There is no abdominal tenderness. There is no guarding. Comments: Pannus in left abdomen with excoriations, non-tender. No active drainage Musculoskeletal: Right lower le+ Edema present. Left lower le+ Edema present. Skin: General: Skin is warm. Capillary Refill: Capillary refill takes less than 2 seconds. Neurol (more content not included)... [facility] 12-05-2023 Note HNO ID: [id number] Author: RAUL GREEN DO Service: Family Practice Author Type: Resident Type: Plan of Care Filed: 12/05/2023 00:18 Note Text: Went to the bedside to evaluate patient. Triggered sepsis for tachycardia and tachypnea. Patient was resting comfortably and tachypneic and tachycardic on exam. Lungs were positive for crackles and mild wheezes. Current plan is stat VBG, 40 mg IV Lasix, and DuoNeb now. Can consider escalating antibiotics. Raul Green DO [facility], PGY-I 12/05/2023 12:18 AM [facility] 12-03-2023 Telephone encounter Note [facility] received your PAP therapy order. At this time the patient does not meet the criteria for insurance coverage. To provide PAP therapy for the patient the following is needed: A PAP prescription to include- PAP therapy, heated humidification, pressure settings, lifetime supplies, date and signature. Any hand written additions to the current script need to be signed and dated. Once the above criteria is received we can continue processing your request. Thank you, [facility] [phone] # fax [facility] 12-03-2023 Miscellaneous Notes [facility] received your PAP therapy order. At this time the patient does not meet the criteria for insurance coverage. To provide PAP therapy for the patient the following is needed: A PAP prescription to include- PAP therapy, heated humidification, pressure settings, lifetime supplies, date and signature. Any hand written additions to the current script need to be signed and dated. Once the above criteria is received we can continue processing your request. Thank you, [facility] [phone] # fax documented in this encounter [facility] 11-27-2023 Telephone encounter Note Order received for cpap supplies. Faxed order, OV notes and demographics to [facility]. [facility] 11-27-2023 Miscellaneous Notes Order received for cpap supplies. Faxed order, OV notes and demographics to [facility]. documented in this encounter [facility] 11-26-2023 History of Present illness Narrative AG TRANSITIONAL CARE MANAGEMENT (TCM) FOLLOW-UP NOTE Provider Action/FYI: Patient identified by name and date of : YES Spoke to: patient Diagnosis: N/A Summary: PCC contacted patient for PCC follow up. Patient said she is doing well today. Patient has no questions or concerns fro 11/21/2023 appointment. PCC instructed patient to call [phone] with any questions or concerns. Health leads screening tool questions performed? No N/A Concerns: It Professional plan for next outreach: Will follow-up 2 weeks Signature: Dawood Carcamo RN November 26, 2023 documented in this encounter [facility] 11-21-2023 Telephone encounter Note Please review and complete. Will be placed in your temp file.Thank you [facility] 11-21-2023 Miscellaneous Notes Please review and complete. Will be placed in your temp file.Thank you documented in this encounter [facility] 11-21-2023 Telephone encounter Note Please review and complete. Will be placed in your temp file.Thank you [facility] 11-21-2023 Miscellaneous Notes Please review and complete. Will be placed in your temp file.Thank you documented in this encounter [facility] 11-21-2023 History of Present illness Narrative Images from the original note were not included. Juliet Mejia APRN [facility] [address] [place] [address] Care Center / [address] [place], [place] [address] Visit Date: November 21, 2023 Name: Ana Lopes Date of : 1945 MRN/E #: [id number] Chief Complaint: Patient presents with: ER F/U: 10/19/23 for breakthrough seizure Subjective HPI Ana Lopes is a 78 year old female here with the following complaint(s): -Pt presents to office today with her aide for a follow-up appointment after a recent hospital stay (10/18-10/25/23); initially presented to ED for concern of breakthrough seizure, no seizure-like activity seen on EEG but had symptomatic pauses on telemetry for which cardiology was consulted - Pt underwent pacemaker insertion on 10/21 due to intermittent complete heart block; she reports no complaints regarding her pacemaker - She then stayed in a rehab facility for about a month (10/24/11/16/23) to improve her ability to walk; patient felt this was beneficial - She presents today in a wheelchair but reports walking often, using walker around house - Personal aide is with her 6-7 days per week and keeps her compliant with prescribed medications - Pt has no complaints today other than needing a new CPAP ordered; her aide states previous CPAP model was recalled - Pt is on 2L of oxygen via nasal cannula 28/01; pulse ox readings normally 99% when wearing oxygen, drops to 88-93% without supplemental oxygen Review of Systems Constitutional: Negative. HENT: Negative. Eyes: Negative. Respiratory: Negative. Cardiovascular: Negative. Gastrointestinal: Negative. Endocrine: Negative. Genitourinary: Negative. Musculoskeletal: Negative. Skin: Negative. Allergic/Immunologic: Negative. Neurological: Negative. Hematological: Negative. Psychiatric/Behavioral: Negative. Social History Tobacco Use Smoking status: Never Smokeless tobacco: Never Vaping Use Vaping Use: Never used Substance Use Topics Alcohol use: No Drug use: No ALLERGIES Allergen Reactions Nitroglycerin Cough Seizure Omeprazole Diarrhea Propoxyphene Other: See Comments Headache Acetaminophen GI Upset Codeine Rash Nabumetone GI Upset Current Outpatient Medications Medication Sig albuterol HFA (PROVENTIL HFA, VENTOLIN HFA) 90 mcg/actuation inhaler INHALE 2 PUFFS BY MOUTH EVERY 6 HOURS INSTRUCTED NEEDED aspirin (VALORIE CHEWABLE ASPIRIN) 81 mg chewable tablet Orally [id number]-etzptticoj 1.7 mg-400 mcg- 2.4 mcg cap Take 1 capsule by mouth once daily. umeclidinium-vilanterol (ANORO ELLIPTA) 62.5-25 mcg/actuation inhaler Inhale 1 Inhalation as instructed once daily. atorvastatin (LIPITOR) 80 mg tablet Take 1 tablet by mouth daily at bedtime. fluticasone (FLONASE) 50 mcg/actuation nasal spray Use 1 [place] in each nostril once daily. furosemide (LASIX) 20 mg tablet Take 1 tablet by mouth once daily. levETIRAcetam (KEPPRA) 750 mg tablet Take 1 tablet by mouth two times a day. metFORMIN (GLUCOPHAGE) 1,000 mg tablet Take 1 tablet by mouth two times a day with meals. BIOTIN 10,000 TABLET Take 1 tablet by mouth once daily. tskvviz-vvgjjtghb-ozmxyjd D3 (OYSTER SHELL CALCIUM-VITAMIN D) 500 mg-5 mcg (200 unit) per tablet TAKE 1 TABLET BY MOUTH EVERY MORNING Vitamin E external oil Apply 1 application to affected area once daily. prednisoLONE acetate (PRED FORTE, ECONOPRED PLUS) 1 % ophthalmic suspension 1 Drop three times a day. Both eyes nystatin (MYCOSTATIN) powder APPLY TOPICALLY TO AFFECTED AREAS TWICE DAILY diclofenac (VOLTAREN) 1 % topical gel Apply 4 g to affected area four times a day as needed (Pain). multivitamin with minerals (VISION/OPTIGEN) tablet Take 1 tablet by mouth once daily. cetirizine (ZYRTEC) 10 mg tablet Take 1 tablet by mouth once daily. polyvinyl alcohol (LIQUIFILM TEARS) 1.4 % ophthalmic solution Use 1 Drop in both eyes as needed. No current facility-administered medications for this visit. Objective 11/21/23 0850 BP: 134/76 Pulse: 89 Resp: 14 Temp: 36.1 C (97 F) TempSrc: Temporal SpO2: 97% Height: 5' 2" (1.575 m) Body mass index is 45.32 kg/m . Physical Exam Vitals reviewed. Exam conducted with a casing runner present. Constitutional: Appearance: Normal appearance. She is obese. HENT: Head: Normocephalic and atraumatic. Nose: Comments: Nasal canula in place for O2 Mouth/Throat: Mouth: Mucous membranes are moist. Pharynx: Oropharynx is clear. Eyes: Conjunctiva/sclera: Conjunctivae normal. Cardiovascular: Rate and Rhythm: Normal rate and regular rhythm. Pulses: Normal pulses. Heart sounds: Normal heart sounds. Comments: Pacemaker, no signs of infection at placement site Pulmonary: Effort: Pulmonary effort is normal. Breath sounds: Normal breath sounds. Comments: On oxygen, 2 LPM Skin: General: Skin is warm and dry. Neurological: Mental Status: She is alert. Psychiatric: Mood and Affect: Mood normal. Behavior: Behavior normal. Thought Content: Thought content normal. Judgment: Judgment normal. Results for orders placed or performed during the hospital encounter of 10/19/23 GLUCOSE, BLOOD (POC) Result Value Ref Range Glucose, Point of Care 127 (A) 74 - 99 mg/dL COMPREHENSIVE METABOLIC PANEL Result Value Ref Range Protein, Total 6.9 6.3 - 8.0 g/dL Albumin 3.6 (L) 3.9 - 4.9 g/dL Calcium, Total 9.2 8.5 - 10.2 mg/dL Bilirubin, Total 0.3 0.2 - 1.3 mg/dL Alkaline Phosphatase 100 34 - 123 U/L AST 19 13 - 35 U/L ALT 11 7 - 38 U/L Glucose 116 (H) 74 - 99 mg/dL BUN 20 7 - 21 mg/dL Creatinine 0.80 0.58 - 0.96 mg/dL Sodium 142 136 - 144 mmol/L Potassium 5.4 (H) 3.7 - 5.1 mmol/L Chloride 103 97 - 105 mmol/L CO2 30 22 - 30 mmol/L Anion Gap 9 9 - 18 mmol/L Estimated Glomerular Filtration Rate 76 >=60 mL/min/1.73m MAGNESIUM Result Value Ref Range Magnesium 1.6 (L) 1.7 - 2.3 mg/dL LIPASE Result Value Ref Range Lipase 36 16 - 61 U/L HIGH SENSITIVITY TROPONIN T (INITIAL) Result Value Ref Range CLAIRE High Sensitivity 7 <12 ng/L COMPLETE BLOOD COUNT AND DIFFERENTIAL Result Value Ref Range WBC 9.36 3.70 - 11.00 k/uL RBC 4.16 3.90 - 5.20 m/uL Hemoglobin 13.0 11.5 - 15.5 g/dL Hematocrit 40.4 36.0 - 46.0 % MCV 97.1 80.0 - 100.0 fL MCH 31.3 26.0 - 34.0 pg MCHC 32.2 30.5 - 36.0 g/dL RDW-CV 12.8 11.5 - 15.0 % Platelet Count 255 150 - 400 k/uL MPV 9.4 9.0 - 12.7 fL Neutrophils % 59.6 % Abs Neut 5.58 1.45 - 7.50 k/uL Lymphocytes % 24.5 % Abs Lymph 2.29 1.00 - 4.00 k/uL Monocytes % 7.5 % Abs [place] 0.70 <0.87 k/uL Eosinophils % 7.7 % Abs Eosin 0.72 (H) <0.46 k/uL Basophils % 0.5 % Abs Baso 0.05 <0.11 k/uL Immature Granulocytes % 0.2 % Abs Immature Gran <0.03 <0.10 k/uL NRBC 0.0 /100 WBC Absolute nRBC <0.01 <0.01 k/uL Diff Type Auto URINALYSIS WITH MICROSCOPIC, REFLEX CULTURE Specimen: Urine (Nonspecific) Result Value Ref Range Color Light Yellow yellow Clarity Clear Clear Glucose, Urine Negative Trace, Negative Bilirubin, Urine Negative Negative Ketones, Urine Negative Negative, Trace Specific [place], Ur 1.014 1.005 - 1.030 Hemoglobin/Blood,Ur Trace Negative, Trace pH, Urine 5.5 5.0 - 8.0 Protein, Urine Negative Trace, Negative Urobilinogen Normal Normal Nitrites 2+ (A) Negative Leuk Esterase 250 [place]/uL (A) Negative, 25 [place]/uL WBC, Urine 11-25 /HPF (A) 0-5 /HPF RBC, Urine 3-5 /HPF (A) 0-3 /HPF Bacteria Few (A) None Seen /HPF LEVETIRACETAM Result Value Ref Range Levetiracetam 34.4 12.0 - 46.0 ug/mL HIGH SENSITIVITY TROPONIN T (SECOND) Result Value Ref Range CLAIRE High Sensitivity 7 <12 ng/L POTASSIUM Result Value Ref Range Potassium 6.4 (HH) 3.7 - 5.1 mmol/L BASIC METABOLIC PANEL Result Value Ref Range Glucose 102 (H) 74 - 99 mg/dL BUN 18 7 - 21 mg/dL Creatinine 0.71 0.58 - 0.96 mg/dL Sodium 140 136 - 144 mmol/L Potassium 5.6 (H) 3.7 - 5.1 mmol/L Chloride 103 97 - 105 mmol/L CO2 30 22 - 30 mmol/L Anion Gap 7 (L) 9 - 18 mmol/L Calcium, Total 9.0 8.5 - 10.2 mg/dL Estimated Glomerular Filtration Rate 88 >=60 mL/min/1.73m GLUCOSE, BLOOD (POC) Result Value Ref Range Glucose, Point of Care 109 (A) 74 - 99 mg/dL BASIC METABOLIC PANEL Result Value Ref Range Glucose 85 74 - 99 mg/dL BUN 17 7 - 21 mg/dL Creatinine 0.67 0.58 - 0.96 mg/dL Sodium 137 136 - 144 mmol/L Potassium 5.3 (H) 3.7 - 5.1 mmol/L Chloride 102 97 - 105 mmol/L CO2 31 (H) 22 - 30 mmol/L Anion Gap 4 (L) 9 - 18 mmol/L Calcium, Total 8.9 8.5 - 10.2 mg/dL Estimated Glomerular Filtration Rate 91 >=60 mL/min/1.73m COMPLETE BLOOD COUNT Result Value Ref Range WBC 9.43 3.70 - 11.00 k/uL RBC 3.92 3.90 - 5.20 m/uL Hemoglobin 12.4 11.5 - 15.5 g/dL Hematocrit 38.0 36.0 - 46.0 % MCV 96.9 80.0 - 100.0 fL MCH 31.6 26.0 - 34.0 pg MCHC 32.6 30.5 - 36.0 g/dL RDW-CV 13.0 11.5 - 15.0 % Platelet Count 225 150 - 400 k/uL MPV 9.2 9.0 - 12.7 fL Absolute nRBC <0.01 <0.01 k/uL GLUCOSE, BLOOD (POC) Result Value Ref Range Glucose, Point of Care 81 74 - 99 mg/dL GLUCOSE, BLOOD (POC) Result Value Ref Range Glucose, Point of Care 110 (A) 74 - 99 mg/dL GLUCOSE, BLOOD (POC) Result Value Ref Range Glucose, Point of Care 126 (A) 74 - 99 mg/dL GLUCOSE, BLOOD (POC) Result Value Ref Range Glucose, Point of Care 125 (A) 74 - 99 mg/dL BASIC METABOLIC PANEL Result Value Ref Range Glucose 109 (H) 74 - 99 mg/dL BUN 17 7 - 21 mg/dL Creatinine 0.81 0.58 - 0.96 mg/dL Sodium 139 136 - 144 mmol/L Potassium 5.0 3.7 - 5.1 mmol/L Chloride 100 97 - 105 mmol/L CO2 35 (H) 22 - 30 mmol/L Anion Gap 4 (L) 9 - 18 mmol/L Calcium, Total 9.4 8.5 - 10.2 mg/dL Estimated Glomerular Filtration Rate 75 >=60 mL/min/1.73m COMPLETE BLOOD COUNT Result Value Ref Range WBC 9.49 3.70 - 11.00 k/uL RBC 4.15 3.90 - 5.20 m/uL Hemoglobin 13.1 11.5 - 15.5 g/dL Hematocrit 40.2 36.0 - 46.0 % MCV 96.9 80.0 - 100.0 fL MCH 31.6 26.0 - 34.0 pg MCHC 32.6 30.5 - 36.0 g/dL RDW-CV 12.8 11.5 - 15.0 % Platelet Count 241 150 - 400 k/uL MPV 9.1 9.0 - 12.7 fL Absolute nRBC <0.01 <0.01 k/uL GLUCOSE, BLOOD (POC) Result Value Ref Range Glucose, Point of Care 96 74 - 99 mg/dL GLUCOSE, BLOOD (POC) Result Value Ref Range Glucose, Point of Care 221 (A) 74 - 99 mg/dL GLUCOSE, BLOOD (POC) Result Value Ref Range Glucose, Point of Care 168 (A) 74 - 99 mg/dL GLUCOSE, BLOOD (POC) Result Value Ref Range Glucose, Point of Care 110 (A) 74 - 99 mg/dL GLUCOSE, BLOOD (POC) Result Value Ref Range Glucose, Point of Care 181 (A) 74 - 99 mg/dL BASIC METABOLIC PANEL Result Value Ref Range Glucose 130 (H) 74 - 99 mg/dL BUN 20 7 - 21 mg/dL Creatinine 0.71 0.58 - 0.96 mg/dL Sodium 137 136 - 144 mmol/L Potassium 4.6 3.7 - 5.1 mmol/L Chloride 101 97 - 105 mmol/L CO2 31 (H) 22 - 30 mmol/L Anion Gap 5 (L) 9 - 18 mmol/L Calcium, Total 9.3 8.5 - 10.2 mg/dL Estimated Glomerular Filtration Rate 88 >=60 mL/min/1.73m COMPLETE BLOOD COUNT Result Value Ref Range WBC 8.93 3.70 - 11.00 k/uL RBC 4.11 3.90 - 5.20 m/uL Hemoglobin 12.8 11.5 - 15.5 g/dL Hematocrit 40.2 36.0 - 46.0 % MCV 97.8 80.0 - 100.0 fL MCH 31.1 26.0 - 34.0 pg MCHC 31.8 30.5 - 36.0 g/dL RDW-CV 13.0 11.5 - 15.0 % Platelet Count 231 150 - 400 k/uL MPV 9.0 9.0 - 12.7 fL Absolute nRBC <0.01 <0.01 k/uL GLUCOSE, BLOOD (POC) Result Value Ref Range Glucose, Point of Care 126 (A) 74 - 99 mg/dL GLUCOSE, BLOOD (POC) Result Value Ref Range Glucose, Point of Care 130 (A) 74 - 99 mg/dL GLUCOSE, BLOOD (POC) Result Value Ref Range Glucose, Point of Care 192 (A) 74 - 99 mg/dL GLUCOSE, BLOOD (POC) Result Value Ref Range Glucose, Point of Care 190 (A) 74 - 99 mg/dL BASIC METABOLIC PANEL Result Value Ref Range Glucose 146 (H) 74 - 99 mg/dL BUN 21 7 - 21 mg/dL Creatinine 0.74 0.58 - 0.96 mg/dL Sodium 136 136 - 144 mmol/L Potassium 4.7 3.7 - 5.1 mmol/L Chloride 99 97 - 105 mmol/L CO2 31 (H) 22 - 30 mmol/L Anion Gap 6 (L) 9 - 18 mmol/L Calcium, Total 9.2 8.5 - 10.2 mg/dL Estimated Glomerular Filtration Rate 84 >=60 mL/min/1.73m COMPLETE BLOOD COUNT Result Value Ref Range WBC 11.18 (H) 3.70 - 11.00 k/uL RBC 4.11 3.90 - 5.20 m/uL Hemoglobin 12.7 11.5 - 15.5 g/dL Hematocrit 39.2 36.0 - 46.0 % MCV 95.4 80.0 - 100.0 fL MCH 30.9 26.0 - 34.0 pg MCHC 32.4 30.5 - 36.0 g/dL RDW-CV 12.8 11.5 - 15.0 % Platelet Count 245 150 - 400 k/uL MPV 9.3 9.0 - 12.7 fL Absolute nRBC <0.01 <0.01 k/uL GLUCOSE, BLOOD (POC) Result Value Ref Range Glucose, Point of Care 127 (A) 74 - 99 mg/dL GLUCOSE, BLOOD (POC) Result Value Ref Range Glucose, Point of Care 162 (A) 74 - 99 mg/dL GLUCOSE, BLOOD (POC) Result Value Ref Range Glucose, Point of Care 143 (A) 74 - 99 mg/dL GLUCOSE, BLOOD (POC) Result Value Ref Range Glucose, Point of Care 177 (A) 74 - 99 mg/dL BASIC METABOLIC PANEL Result Value Ref Range Glucose 132 (H) 74 - 99 mg/dL BUN 22 (H) 7 - 21 mg/dL Creatinine 0.69 0.58 - 0.96 mg/dL Sodium 136 136 - 144 mmol/L Potassium 4.3 3.7 - 5.1 mmol/L Chloride 96 (L) 97 - 105 mmol/L CO2 32 (H) 22 - 30 mmol/L Anion Gap 8 (L) 9 - 18 mmol/L Calcium, Total 9.5 8.5 - 10.2 mg/dL Estimated Glomerular Filtration Rate 90 >=60 mL/min/1.73m COMPLETE BLOOD COUNT Result Value Ref Range WBC 11.45 (H) 3.70 - 11.00 k/uL RBC 4.21 3.90 - 5.20 m/uL Hemoglobin 13.2 11.5 - 15.5 g/dL Hematocrit 40.7 36.0 - 46.0 % MCV 96.7 80.0 - 100.0 fL MCH 31.4 26.0 - 34.0 pg MCHC 32.4 30.5 - 36.0 g/dL RDW-CV 13.0 11.5 - 15.0 % Platelet Count 220 150 - 400 k/uL MPV 9.1 9.0 - 12.7 fL Absolute nRBC <0.01 <0.01 k/uL GLUCOSE, BLOOD (POC) Result Value Ref Range Glucose, Point of Care 171 (A) 74 - 99 mg/dL GLUCOSE, BLOOD (POC) Result Value Ref Range Glucose, Point of Care 201 (A) 74 - 99 mg/dL GLUCOSE, BLOOD (POC) Result Value Ref Range Glucose, Point of Care 107 (A) 74 - 99 mg/dL GLUCOSE, BLOOD (POC) Result Value Ref Range Glucose, Point of Care 130 (A) 74 - 99 mg/dL BASIC METABOLIC PANEL Result Value Ref Range Glucose 144 (H) 74 - 99 mg/dL BUN 21 7 - 21 mg/dL Creatinine 0.69 0.58 - 0.96 mg/dL Sodium 136 136 - 144 mmol/L Potassium 4.1 3.7 - 5.1 mmol/L Chloride 96 (L) 97 - 105 mmol/L CO2 36 (H) 22 - 30 mmol/L Anion Gap 4 (L) 9 - 18 mmol/L Calcium, Total 9.4 8.5 - 10.2 mg/dL Estimated Glomerular Filtration Rate 90 >=60 mL/min/1.73m COMPLETE BLOOD COUNT Result Value Ref Range WBC 10.10 3.70 - 11.00 k/uL RBC 4.08 3.90 - 5.20 m/uL Hemoglobin 12.7 11.5 - 15.5 g/dL Hematocrit 39.3 36.0 - 46.0 % MCV 96.3 80.0 - 100.0 fL MCH 31.1 26.0 - 34.0 pg MCHC 32.3 30.5 - 36.0 g/dL RDW-CV 13.0 11.5 - 15.0 % Platelet Count 218 150 - 400 k/uL MPV 9.1 9.0 - 12.7 fL Absolute nRBC <0.01 <0.01 k/uL GLUCOSE, BLOOD (POC) Result Value Ref Range Glucose, Point of Care 143 (A) 74 - 99 mg/dL GLUCOSE, BLOOD (POC) Result Value Ref Range Glucose, Point of Care 218 (A) 74 - 99 mg/dL URINE CULTURE IF INDICATED Specimen: Urine (Nonspecific) Result Value Ref Range Culture, Urine >=100,000 CFU/ml Klebsiella pneumoniae (A) Culture, Urine (A) 50,000-<100,000 CFU/ml Lactose fermenting gram negative rods Susceptibility Klebsiella pneumoniae - MINIMUM INHIBITORY CONCENTRATION ([place]) Ampicillin Resistant Cefazolin* Susceptible * For uncomplicated urinary tract infections, cefazolin results can be used to predict susceptibility or resistance to cephalexin. Ceftriaxone Susceptible Cefepime Susceptible Ertapenem Susceptible Meropenem Susceptible Aztreonam Susceptible Ampicillin/Sulbact Susceptible Piperacillin/Tazobac Susceptible Gentamicin Susceptible Trimeth sulfameth Susceptible Ciprofloxacin Susceptible Nitrofurantoin Susceptible ECG COMPLETE Result Value Ref Range Ventricular Rate 68 BPM Atrial Rate 68 BPM P-R Interval 188 ms QRS Duration 74 ms QT Interval 376 ms QTC Calculation ([place]) 399 ms Calculated P [place] 20 degrees Calculated R [place] 6 degrees Calculated T [place] 14 degrees ECG COMPLETE Result Value Ref Range Ventricular Rate 57 BPM Atrial Rate 57 BPM P-R Interval 194 ms QRS Duration 76 ms QT Interval 390 ms QTC Calculation ([place]) 379 ms Calculated P [place] 17 degrees Calculated R [place] 7 degrees Calculated T [place] 4 degrees ECG COMPLETE Result Value Ref Range Ventricular Rate 60 BPM Atrial Rate 60 BPM P-R Interval 218 ms QRS Duration 76 ms QT Interval 388 ms QTC Calculation ([place]) 388 ms Calculated R [place] 5 degrees Calculated T [place] 13 degrees EKG Result Value Ref Range Ventricular Rate 68 BPM Atrial Rate 68 BPM P-R Interval 188 ms QRS Duration 74 ms QT Interval 376 ms QTC Calculation ([place]ett) 399 ms Calculated P [place] 20 degrees Calculated R [place] 6 degrees Calculated T [place] 14 degrees Plan and Recommendations: Encounter Diagnosis ICD-10-CM 1. Hypercholesteremia Ordered routine labs to be collected before next visit. Has appointment with Dr. Herman on 12/11. E78.00 LIPID PANEL BASIC BASIC METABOLIC PANEL 2. MARY (obstructive sleep apnea) New order for CPAP placed. G47.33 Discussed the above with the patient using shared decision-making. The patient is in agreement with the diagnostic and treatment plans. Return for follow-up as scheduled with Dr. Herman. Provider: JUAN ANTONIO Ji and Yesi Wan PA-C student [facility] [phone] November 21, 2023 Attending Note I personally saw and examined the patient. I reviewed the student's note. I agree with the student's assessment and plan unless otherwise noted. Signature: Juliet Mejia APRN.CNP November 21, 2023 2:18 PM documented in this encounter [facility] 11-19-2023 Telephone encounter Note Will complete on 11/26 when I am in office next. [facility] 11-19-2023 Miscellaneous Notes Will complete on 11/26 when I am in office next. Please review and complete. Will be placed in your temp file.Thank you documented in this encounter [facility] 11-19-2023 Telephone encounter Note Please review and complete. Will be placed in your temp file.Thank you [facility] 11-18-2023 History of Present illness Narrative TRANSITIONAL CARE MANAGEMENT (TCM) COMMUNITY MONITORING PROGRAM - [place] Provider Action/FYI: Patient has 11/21/2023 TCM appointment. Patient feels better. Patient declined Medication review. Patient has a nurse come out to home on to fill out pill box. PCC instructed patient to call [phone] with any questions or concerns. Dawood Carcamo RN November 18, 2023 12:38 PM SUMMARY: Pt discharged from [facility] on 11/16/2023. Admitted for: Breakthrough Seizure Patient seen Inpatient JULIA Visit? No. Patient seen ICARE Program? No. Contact made with patient: Yes Hi my name is Dawood Carcamo RN and I am calling from the [facility] on behalf of your PCP, Antonio Vaughn, DO I understand you were recently in the hospital so I am calling to check in with you to ensure you are feeling well now that you re home. Do you mind if I ask you a few questions related to your hospital stay and well-being Yes Contact with patient post discharge, spoke to patient. Patient identified by name and . Do you feel your health is BETTER, WORSE, or the SAME since leaving the hospital? Better ACTION TAKEN: Patient indicated symptoms are better or same, no action required. Continue outreach. N/A MEDICATIONS: Many patients have questions or concerns about their medications once they are home. Do you have any questions about taking your medications or which medication you should be on? No Do you need any medication refills at this time, including any of the medications you might take only when needed? No ACTION TAKEN: No action required For RNs or Pharmacy completing outreach ONLY, was a medication review completed? No SOCIAL: We would like to make sure you have what you need so that your basics needs are met - including your personal safety. HEALTH LEADS SCREENING TOOL QUESTIONS: Do you often feel you lack companionship? No Do you ever need help reading or understanding hospital materials? Yes sister and In the last 12 months, have you changed how you take medications to save money? No In the past 12 months, has lack of transportation kept you from medical appointments, work or getting things you need like food, or supplies? No In the last 12 months, did you ever eat less than you felt you should because there wasn't enough money for food? No During the winter, do you anticipate having a problem paying your heating bill? No In the next 2 months, are you worried you might not have stable housing? No Would you like to speak with a social work steam press tender to help give you support for any of these needs? No It can be normal to feel anxious or down during a time like this. Would you like to talk to a mental health professional about how you have been feeling? No ACTION TAKEN: No action taken DISCHARGE INTRUCTIONS: Your discharge instructions / After Visit Summary (AVS) are important in guiding you through the recovery process. Do you have any questions related to your discharge instructions? No Do you have all the necessary equipment and supplies at home? Yes ACTION TAKEN: No action required WRAP AROUND SERVICES: N/A Patient educated on importance of primary care provider follow up visit as well as specialty provider follow up visits as indicated. Inform the patient that if they have any questions or concerns prior to that appointment, to call their Primary Care Provider 's office right away. Primary care provider first education provided. I would like to help you schedule a hospital follow-up virtual or telephone visit with your PCP. ACTION TAKEN: TCM Primary Care Provider Visit Scheduled: Yes - Appt date: 11/21/2023 with Susan Mejia Your doctor would like us to remind you of the recommendations regarding the coronavirus (Covid19) outbreak: Avoid public places as much as possible. Avoid close contact (within 6 feet) with others you don't live with, especially if they are sick. Stay home if you are sick. Wash your hands regularly for at least 20 seconds with soap and water. Wear a cloth mask in public places to help reduce community spread. Do not go to your Doctor's office unless instructed to do so. For any non-emergency symptoms, call your Doctor's office to get instructions on how to manage (we might recommend a telephone or virtual visit). For emergency symptoms, proceed to Emergency Department as usual but inform them of cough and fever symptoms DREA if present (or call on the way if possible). documented in this encounter [facility] 11-18-2023 History of Present illness Narrative Received notification via [facility]: Patient discharged form [facility] to home with home health (agency unknown) on 11/16/2023. A discharge summary and medication list has been requested .PCC notified. Khadijah Barnes RN November 18, 2023 documented in this encounter [facility] 11-15-2023 History of Present illness Narrative Images from the original note were not included. Connected Care Unit Discharge Summary SNF Connected Care Program [address], [address] ([address]) [place] [address] CONNECTED CARE DISCHARGE SUMMARY Service Date: 11/15/2023 Admission Date: 10/25/2023 Discharge Date: 11/16/2023 Facility: [facility] Level of Care: Skilled SNF Attending: Elvin Calderon [facility] Primary Care Physician: Antonio Vaughn DO Principal Diagnosis: (I50.32) Chronic heart failure with preserved ejection fraction (HCC) (primary encounter diagnosis) (E11.8) Type 2 diabetes mellitus with complication, without long-term current use of insulin (HCC) Plan: atorvastatin (LIPITOR) 80 mg tablet, metFORMIN (GLUCOPHAGE) 1,000 mg tablet (G47.33) MARY (obstructive sleep apnea) Plan: albuterol HFA (PROVENTIL HFA, VENTOLIN HFA) 90 mcg/actuation inhaler (J30.9) Allergic rhinitis, unspecified seasonality, unspecified trigger Plan: fluticasone (FLONASE) 50 mcg/actuation nasal spray (G40.909) Seizure disorder (HCC) Plan: levETIRAcetam (KEPPRA) 750 mg tablet (J96.11) Chronic respiratory failure with hypoxia (HCC (I44.2) Complete atrioventricular block (HCC) (Z95.0) Pacemaker (R53.81) Debility (E66.01) Morbid obesity (HCC) (I73.9) PVD (peripheral vascular disease) (HCC) Subacute Course: Ana Lopes is a 78 year old female with past medical history of epilepsy, DM type II, HFpEF, COPD (on chronic 3L NC), interstitial lung disease, MARY, obesity who presented via EMS to [facility] ED due to concern for breakthrough seizures. Neurology was consulted and continuous bedside EEG ordered. There was no evidence of seizure-like activity during monitoring. She was advised to follow up with epilepsy outpatient and continue Keppra. Patient noted to have symptomatic pauses on tele for which cardiology was consulted. She underwent PPM insertion on 10/21 due to intermittent complete heart block. Patient tolerated procedure well without complications post-operatively. She was discharged in stable condition to SNF with close outpatient follow up with epilepsy, cardiology, EP and PCP. Snf dc Summ: Pt has been participating and tolerating her therapy. She is now able to transfere and ambulate to the bathroom with her walker. Her pacemaker site is healed and open to air. Pt has dc plan for 11/16/2023 due to insurance cut. She is pending appeal decision but states she is willing to dc home if she looses her appeal. She lives at home alone and has aides who assist her medications were reviewed and sent to her community pharmacy. Tests/Procedures: none Transitions of Care Critical Issues: Imaging follow-up: None Lab Monitoring Needed: None Specialists Follow-Up: cardiology Discharge Physical Exam: Physical Exam Constitutional: General: She is not in acute distress. Appearance: She is not ill-appearing. HENT: Head: Normocephalic. Mouth/Throat: Mouth: Mucous membranes are moist. Eyes: Pupils: Pupils are equal, round, and reactive to light. Cardiovascular: Rate and Rhythm: Normal rate and regular rhythm. Pulses: Normal pulses. Heart sounds: Normal heart sounds. Pulmonary: Effort: Pulmonary effort is normal. No respiratory distress. Breath sounds: No wheezing, rhonchi or rales. Abdominal: General: Bowel sounds are normal. There is no distension. Palpations: Abdomen is soft. Tenderness: There is no abdominal tenderness. Musculoskeletal: Cervical back: Neck supple. Right lower leg: No edema. Left lower leg: No edema. Skin: Findings: No bruising, erythema or rash. Neurological: General: No focal deficit present. Mental Status: She is alert and oriented to person, place, and time. Psychiatric: Mood and Affect: Mood normal. Behavior: Behavior normal. Thought Content: Thought content normal. Discharge Condition: Stable Discharge Disposition: Home/Community Discharge Medications: BIOTIN 10,000 TABLET Take 1 tablet by mouth once daily. wzpzvih-tsvpgmywx-tqfyejf D3 (OYSTER SHELL CALCIUM-VITAMIN D) 500 mg-5 mcg (200 unit) per tablet TAKE 1 TABLET BY MOUTH EVERY MORNING Vitamin E external oil Apply 1 application to affected area once daily. prednisoLONE acetate (PRED FORTE, ECONOPRED PLUS) 1 % ophthalmic suspension 1 Drop three times a day. Both eyes polyvinyl alcohol (LIQUIFILM TEARS) 1.4 % ophthalmic solution Use 1 Drop in both eyes as needed. nystatin (MYCOSTATIN) powder APPLY TOPICALLY TO AFFECTED AREAS TWICE DAILY diclofenac (VOLTAREN) 1 % topical gel Apply 4 g to affected area four times a day as needed (Pain). multivitamin with minerals (VISION/OPTIGEN) tablet Take 1 tablet by mouth once daily. cetirizine (ZYRTEC) 10 mg tablet Take 1 tablet by mouth once daily. albuterol HFA (PROVENTIL HFA, VENTOLIN HFA) 90 mcg/actuation inhaler INHALE 2 PUFFS BY MOUTH EVERY 6 HOURS INSTRUCTED NEEDED aspirin (VALORIE CHEWABLE ASPIRIN) 81 mg chewable tablet Orally [id number] 1.7 mg-400 mcg- 2.4 mcg cap Take 1 capsule by mouth once daily. umeclidinium-vilanterol (ANORO ELLIPTA) 62.5-25 mcg/actuation inhaler Inhale 1 Inhalation as instructed once daily. atorvastatin (LIPITOR) 80 mg tablet Take 1 tablet by mouth daily at bedtime. fluticasone (FLONASE) 50 mcg/actuation nasal spray Use 1 [place] in each nostril once daily. furosemide (LASIX) 20 mg tablet Take 1 tablet by mouth once daily. levETIRAcetam (KEPPRA) 750 mg tablet Take 1 tablet by mouth two times a day. metFORMIN (GLUCOPHAGE) 1,000 mg tablet Take 1 tablet by mouth two times a day with meals. Functional Status: Modified independent + [facility] Scheduled Future Appointments: Future Appointments Date Time Provider Department Center 11/21/2023 8:40 AM Juliet Mejia APRN.CNP [facility] 12/05/2023 4:00 PM [facility] 12/12/2023 1:20 PM Barbara Herman DO [facility] 01/14/2024 11:00 AM Ese Marmolejo DPM [id number] Prior to discharge, staff to schedule follow up appointment for patient to see PCP within 7-10 days of discharge. I spent 35 minutes in the visit, with more than 50% of the total uryq-ta-eyoa time of the visit in counseling / coordination of care. Sharyn Andrade APRN.CNP documented in this encounter [facility] 11-13-2023 History of Present illness Narrative Images from the original note were not included. Connected Care Unit Progress Note Patient Name: Ana Lopes Patient Facility: [facility] Admit Date 10/25/2023 Level of Care: Skilled SNF Attending: Nelson Calderon D.O. Service Date: 11/13/2023 Code Status: Full Code Chief Complaint: Evaluation regarding debility and rehabilitation progress. ASSESSMENT AND PLAN (I50.32) Chronic heart failure with preserved ejection fraction (HCC) - EF=63% when checked 05/15/2023 - Continue on Furosemide - On chronic oxygen; no chest pain or shortness of breath; BLE edema noted (J96.11) Chronic respiratory failure with hypoxia (HCC) - On 2L oxygen; 2-3L baseline - Continue on Anoro Ellipta and Albuterol - No shortness of breath or chest tightness Complete atrioventricular block (HCC) [I44.2] Pacemaker [Z95.0] Medtronic dual-chamber pacemaker implanted 10/22/2023; RV septal lead paced QRS 120 ms Incision site covered with dressing F/u with EP Dr leon (R53.81) Debility (primary encounter diagnosis) - Certify therapies - Maintain high falls risk precautions - pt/staff verbalize understanding validated via teach back - Monitor safety awareness Appointments for Next 60 Days Date Time Provider Location Dept Phone 12/05/2023 4:00 PM [facility] [phone] HPI: (Per hospital dc summ Ana Lopes is a 78 year old female with past medical history of epilepsy, DM type II, HFpEF, COPD (on chronic 3L NC), interstitial lung disease, MARY, obesity who presented via EMS to [facility] ED due to concern for breakthrough seizures. Neurology was consulted and continuous bedside EEG ordered. There was no evidence of seizure-like activity during monitoring. She was advised to follow up with epilepsy outpatient and continue Keppra. Patient noted to have symptomatic pauses on tele for which cardiology was consulted. She underwent PPM insertion on 10/21 due to intermittent complete heart block. Patient tolerated procedure well without complications post-operatively. She was discharged in stable condition to SNF with close outpatient follow up with epilepsy, cardiology, EP and PCP. 11/13/23 Update Pt is stable she is seen in her room with her sister visiting she reports doing well states she is able to transfer herself and walk to her bathroom with her rollators she denies any CP or SOB with exertion or therapy she is requesting dc back home soon nursing has no concerns to report PAST MEDICAL HISTORY Diagnosis Date Anxiety 02/06/2018 Bradycardia 10/21/2023 Class 3 obesity with alveolar hypoventilation without serious comorbidity with body mass index (BMI) of 45.0 to 49.9 in adult (HCC) 04/01/2018 Complete atrioventricular block (HCC) 10/21/2023 Diabetes mellitus, type 2 (HCC) Hypercholesteremia Lymphedema of both lower extremities 02/09/2018 Nephrolithiasis 10/14/2020 status post perc nephrolithotomy MARY (obstructive sleep apnea) 02/06/2018 Presence of cardiac pacemaker 10/22/2023 Medtronic dual-chamber pacemaker implanted 10/22/2023; RV septal lead paced QRS 120 ms; indication: CHB; system will be MRI conditional after 6 weeks post implant Restrictive lung disease 03/13/2018 PFT 03/11/18: 38% of predicted FVC, reduced TLC, moderately reduced Diffusing capacity Rheumatoid arthritis (HCC) Seizure disorder (HCC) 02/06/2018 Type 2 diabetes mellitus with complication, without long-term current use of insulin (HCC) 02/26/2018 SUBJECTIVE: Review of Systems Constitutional: Negative for appetite change, chills, fatigue and fever. HENT: Negative for congestion and trouble swallowing. Eyes: Negative for visual disturbance. Respiratory: Negative for apnea, chest tightness, shortness of breath and wheezing. Cardiovascular: Negative for chest pain, palpitations and leg swelling. Gastrointestinal: Negative for abdominal distention, abdominal pain, constipation, diarrhea, nausea and vomiting. Endocrine: Negative for polydipsia, polyphagia and polyuria. Genitourinary: Negative for difficulty urinating, dysuria and frequency. Musculoskeletal: Positive for gait problem. Neurological: Positive for weakness. Psychiatric/Behavioral: Negative for agitation, behavioral problems and confusion. No reports of falls/injuries, changes in cognition/behaviors, or any uncontrolled pain exacerbations. Medications: Medications listed in Epic during SNF admission may not be current. Refer to facility record. Patient records, current medications, most recent labs, family/social history (unchanged) Reviewed. Refer to facility records. OBJECTIVE: Latest Reference Range & Units 10/25/23 04:40 Sodium 136 - 144 mmol/L 136 Potassium 3.7 - 5.1 mmol/L 4.1 Chloride 97 - 105 mmol/L 96 (L) CO2 22 - 30 mmol/L 36 (H) BUN 7 - 21 mg/dL 21 Creatinine 0.58 - 0.96 mg/dL 0.69 Glucose 74 - 99 mg/dL 144 (H) Calcium 8.5 - 10.2 mg/dL 9.4 Anion Gap 9 - 18 mmol/L 4 (L) eGFR >=60 mL/min/1.73m 90 (L): Data is abnormally low (H): Data is abnormally high Vital Signs: BP 132/76 Pulse 68 Temp 36.7 C (98 F) Resp 18 SpO2 98% Physical Exam: Physical Exam Constitutional: General: She is not in acute distress. Appearance: She is not ill-appearing. HENT: Head: Normocephalic. Mouth/Throat: Mouth: Mucous membranes are moist. Eyes: Pupils: Pupils are equal, round, and reactive to light. Cardiovascular: Rate and Rhythm: Normal rate and regular rhythm. Pulses: Normal pulses. Heart sounds: Normal heart sounds. Pulmonary: Effort: Pulmonary effort is normal. No respiratory distress. Breath sounds: No wheezing, rhonchi or rales. Abdominal: General: Bowel sounds are normal. There is no distension. Palpations: Abdomen is soft. Tenderness: There is no abdominal tenderness. Musculoskeletal: Cervical back: Neck supple. Right lower leg: No edema. Left lower leg: No edema. Skin: Findings: No bruising, erythema or rash. Neurological: General: No focal deficit present. Mental Status: She is alert and oriented to person, place, and time. Motor: Weakness present. Gait: Gait abnormal. Psychiatric: Mood and Affect: Mood normal. Behavior: Behavior normal. Thought Content: Thought content normal. POC discussed with appropriate parties and nursing staff. Previous progress note was copied forward updated where appropriate and reflective of current medical decision making today 11/13/23 Electronically signed by Sharyn Andrade APRN.BOXING AND PRESSING SUPERVISOR documented in this encounter [facility] 11-12-2023 History of Present illness Narrative Images from the original note were not included. Connected Care Unit Progress Note Patient Name: Ana Lopes Patient Facility: [facility] Admit Date 10/25/2023 Level of Care: Skilled SNF Attending: Nelson Calderon D.O. Service Date: 11/12/2023 Code Status: Full Code Chief Complaint: Evaluation regarding debility and rehabilitation progress. ASSESSMENT AND PLAN (I50.32) Chronic heart failure with preserved ejection fraction (HCC) - EF=63% when checked 05/15/2023 - Continue on Furosemide - On chronic oxygen; no chest pain or shortness of breath; BLE edema noted (J96.11) Chronic respiratory failure with hypoxia (HCC) - On 2L oxygen; 2-3L baseline - Continue on Anoro Ellipta and Albuterol - No shortness of breath or chest tightness Complete atrioventricular block (HCC) [I44.2] Pacemaker [Z95.0] Medtronic dual-chamber pacemaker implanted 10/22/2023; RV septal lead paced QRS 120 ms Incision site covered with dressing F/u with EP Dr leon (R53.81) Debility (primary encounter diagnosis) - Certify therapies - Maintain high falls risk precautions - pt/staff verbalize understanding validated via teach back - Monitor safety awareness Appointments for Next 60 Days Date Time Provider Location Dept Phone 12/05/2023 4:00 PM [facility] [phone] HPI: (Per hospital dc summ Ana Lopes is a 78 year old female with past medical history of epilepsy, DM type II, HFpEF, COPD (on chronic 3L NC), interstitial lung disease, MARY, obesity who presented via EMS to [facility] ED due to concern for breakthrough seizures. Neurology was consulted and continuous bedside EEG ordered. There was no evidence of seizure-like activity during monitoring. She was advised to follow up with epilepsy outpatient and continue Keppra. Patient noted to have symptomatic pauses on tele for which cardiology was consulted. She underwent PPM insertion on 10/21 due to intermittent complete heart block. Patient tolerated procedure well without complications post-operatively. She was discharged in stable condition to SNF with close outpatient follow up with epilepsy, cardiology, EP and PCP. 11/12/23 Update Pt is stable she is seen self propelling in WC she reports no pain or discomfort denies pain at the pacer site. She reports that therapy is ongoing and she can walk a few steps with a walker nursing has no new concerns cont to monitor PAST MEDICAL HISTORY Diagnosis Date Anxiety 02/06/2018 Bradycardia 10/21/2023 Class 3 obesity with alveolar hypoventilation without serious comorbidity with body mass index (BMI) of 45.0 to 49.9 in adult (HCC) 04/01/2018 Complete atrioventricular block (HCC) 10/21/2023 Diabetes mellitus, type 2 (HCC) Hypercholesteremia Lymphedema of both lower extremities 02/09/2018 Nephrolithiasis 10/14/2020 status post perc nephrolithotomy MARY (obstructive sleep apnea) 02/06/2018 Presence of cardiac pacemaker 10/22/2023 Medtronic dual-chamber pacemaker implanted 10/22/2023; RV septal lead paced QRS 120 ms; indication: CHB; system will be MRI conditional after 6 weeks post implant Restrictive lung disease 03/13/2018 PFT 03/11/18: 38% of predicted FVC, reduced TLC, moderately reduced Diffusing capacity Rheumatoid arthritis ([facility]) Seizure disorder ([facility]) 02/06/2018 Type 2 diabetes mellitus with complication, without long-term current use of insulin ([facility]) 02/26/2018 SUBJECTIVE: Review of Systems Constitutional: Negative for appetite change, chills, fatigue and fever. HENT: Negative for congestion and trouble swallowing. Eyes: Negative for visual disturbance. Respiratory: Negative for apnea, chest tightness, shortness of breath and wheezing. Cardiovascular: Negative for chest pain, palpitations and leg swelling. Gastrointestinal: Negative for abdominal distention, abdominal pain, constipation, diarrhea, nausea and vomiting. Endocrine: Negative for polydipsia, polyphagia and polyuria. Genitourinary: Negative for difficulty urinating, dysuria and frequency. Musculoskeletal: Positive for gait problem. Neurological: Positive for weakness. Psychiatric/Behavioral: Negative for agitation, behavioral problems and confusion. No reports of falls/injuries, changes in cognition/behaviors, or any uncontrolled pain exacerbations. Medications: Medications listed in Epic during SNF admission may not be current. Refer to facility record. Patient records, current medications, most recent labs, family/social history (unchanged) Reviewed. Refer to facility records. OBJECTIVE: Latest Reference Range & Units 10/25/23 04:40 Sodium 136 - 144 mmol/L 136 Potassium 3.7 - 5.1 mmol/L 4.1 Chloride 97 - 105 mmol/L 96 (L) CO2 22 - 30 mmol/L 36 (H) BUN 7 - 21 mg/dL 21 Creatinine 0.58 - 0.96 mg/dL 0.69 Glucose 74 - 99 mg/dL 144 (H) Calcium 8.5 - 10.2 mg/dL 9.4 Anion Gap 9 - 18 mmol/L 4 (L) eGFR >=60 mL/min/1.73m 90 (L): Data is abnormally low (H): Data is abnormally high Vital Signs: BP 126/62 Pulse 78 Temp 36.7 C (98 F) Resp 18 SpO2 98% Physical Exam: Physical Exam Constitutional: General: She is not in acute distress. Appearance: She is not ill-appearing. HENT: Head: Normocephalic. Mouth/Throat: Mouth: Mucous membranes are moist. Eyes: Pupils: Pupils are equal, round, and reactive to light. Cardiovascular: Rate and Rhythm: Normal rate and regular rhythm. Pulses: Normal pulses. Heart sounds: Normal heart sounds. Pulmonary: Effort: Pulmonary effort is normal. No respiratory distress. Breath sounds: No wheezing, rhonchi or rales. Abdominal: General: Bowel sounds are normal. There is no distension. Palpations: Abdomen is soft. Tenderness: There is no abdominal tenderness. Musculoskeletal: Cervical back: Neck supple. Right lower leg: No edema. Left lower leg: No edema. Skin: Findings: No bruising, erythema or rash. Neurological: General: No focal deficit present. Mental Status: She is alert and oriented to person, place, and time. Motor: Weakness present. Gait: Gait abnormal. Psychiatric: Mood and Affect: Mood normal. Behavior: Behavior normal. Thought Content: Thought content normal. POC discussed with appropriate parties and nursing staff. Previous progress note was copied forward updated where appropriate and reflective of current medical decision making today 11/12/23 Electronically signed by Sharyn Andrade APRN.BOXING AND PRESSING SUPERVISOR documented in this encounter [facility] 11-08-2023 History of Present illness Narrative Images from the original note were not included. Connected Care Unit Progress Note Patient Name: Ana Lopes Patient Facility: [facility] Admit Date 10/25/2023 Level of Care: Skilled SNF Attending: Nelson Calderon D.O. Service Date: 11/08/2023 Code Status: Full Code Chief Complaint: Evaluation regarding debility and rehabilitation progress. ASSESSMENT AND PLAN (I50.32) Chronic heart failure with preserved ejection fraction (HCC) - EF=63% when checked 05/15/2023 - Continue on Furosemide - On chronic oxygen; no chest pain or shortness of breath; BLE edema noted (J96.11) Chronic respiratory failure with hypoxia (HCC) - On 2L oxygen; 2-3L baseline - Continue on Anoro Ellipta and Albuterol - No shortness of breath or chest tightness Complete atrioventricular block (HCC) [I44.2] Pacemaker [Z95.0] Medtronic dual-chamber pacemaker implanted 10/22/2023; RV septal lead paced QRS 120 ms Incision site covered with dressing F/u with EP Dr leon (R53.81) Debility (primary encounter diagnosis) (E66.01) Morbid obesity (HCC) - Certify therapies - Maintain high falls risk precautions - pt/staff verbalize understanding validated via teach back - Monitor safety awareness Appointments for Next 60 Days Date Time Provider Location Dept Phone 12/05/2023 4:00 PM [facility] [phone] HPI: (Per hospital dc summ Ana Lopes is a 78 year old female with past medical history of epilepsy, DM type II, HFpEF, COPD (on chronic 3L NC), interstitial lung disease, MARY, obesity who presented via EMS to [facility] ED due to concern for breakthrough seizures. Neurology was consulted and continuous bedside EEG ordered. There was no evidence of seizure-like activity during monitoring. She was advised to follow up with epilepsy outpatient and continue Keppra. Patient noted to have symptomatic pauses on tele for which cardiology was consulted. She underwent PPM insertion on 10/21 due to intermittent complete heart block. Patient tolerated procedure well without complications post-operatively. She was discharged in stable condition to SNF with close outpatient follow up with epilepsy, cardiology, EP and PCP. 11/08/23 Update Pt is stable she is up in her room reports improved pain she is able to walk with her walker nursing has no concerns to report cont to monitor hydration encouraged PAST MEDICAL HISTORY Diagnosis Date Anxiety 02/06/2018 Bradycardia 10/21/2023 Class 3 obesity with alveolar hypoventilation without serious comorbidity with body mass index (BMI) of 45.0 to 49.9 in adult (HCC) 04/01/2018 Complete atrioventricular block (HCC) 10/21/2023 Diabetes mellitus, type 2 (HCC) Hypercholesteremia Lymphedema of both lower extremities 02/09/2018 Nephrolithiasis 10/14/2020 status post perc nephrolithotomy MARY (obstructive sleep apnea) 02/06/2018 Presence of cardiac pacemaker 10/22/2023 Medtronic dual-chamber pacemaker implanted 10/22/2023; RV septal lead paced QRS 120 ms; indication: CHB; system will be MRI conditional after 6 weeks post implant Restrictive lung disease 03/13/2018 PFT 03/11/18: 38% of predicted FVC, reduced TLC, moderately reduced Diffusing capacity Rheumatoid arthritis (HCC) Seizure disorder ([facility]) 02/06/2018 Type 2 diabetes mellitus with complication, without long-term current use of insulin ([facility]) 02/26/2018 SUBJECTIVE: Review of Systems Constitutional: Negative for appetite change, chills, fatigue and fever. HENT: Negative for congestion and trouble swallowing. Eyes: Negative for visual disturbance. Respiratory: Negative for apnea, chest tightness, shortness of breath and wheezing. Cardiovascular: Negative for chest pain, palpitations and leg swelling. Gastrointestinal: Negative for abdominal distention, abdominal pain, constipation, diarrhea, nausea and vomiting. Endocrine: Negative for polydipsia, polyphagia and polyuria. Genitourinary: Negative for difficulty urinating, dysuria and frequency. Musculoskeletal: Positive for gait problem. Neurological: Positive for weakness. Psychiatric/Behavioral: Negative for agitation, behavioral problems and confusion. No reports of falls/injuries, changes in cognition/behaviors, or any uncontrolled pain exacerbations. Medications: Medications listed in Epic during SNF admission may not be current. Refer to facility record. Patient records, current medications, most recent labs, family/social history (unchanged) Reviewed. Refer to facility records. OBJECTIVE: Latest Reference Range & Units 10/25/23 04:40 Sodium 136 - 144 mmol/L 136 Potassium 3.7 - 5.1 mmol/L 4.1 Chloride 97 - 105 mmol/L 96 (L) CO2 22 - 30 mmol/L 36 (H) BUN 7 - 21 mg/dL 21 Creatinine 0.58 - 0.96 mg/dL 0.69 Glucose 74 - 99 mg/dL 144 (H) Calcium 8.5 - 10.2 mg/dL 9.4 Anion Gap 9 - 18 mmol/L 4 (L) eGFR >=60 mL/min/1.73m 90 (L): Data is abnormally low (H): Data is abnormally high Vital Signs: BP 124/56 Pulse 78 Temp 36.2 C (97.1 F) Resp 18 SpO2 98% Physical Exam: Physical Exam Constitutional: General: She is not in acute distress. Appearance: She is not ill-appearing. HENT: Head: Normocephalic. Mouth/Throat: Mouth: Mucous membranes are moist. Eyes: Pupils: Pupils are equal, round, and reactive to light. Cardiovascular: Rate and Rhythm: Normal rate and regular rhythm. Pulses: Normal pulses. Heart sounds: Normal heart sounds. Pulmonary: Effort: Pulmonary effort is normal. No respiratory distress. Breath sounds: No wheezing, rhonchi or rales. Abdominal: General: Bowel sounds are normal. There is no distension. Palpations: Abdomen is soft. Tenderness: There is no abdominal tenderness. Musculoskeletal: Cervical back: Neck supple. Right lower leg: No edema. Left lower leg: No edema. Skin: Findings: No bruising, erythema or rash. Neurological: General: No focal deficit present. Mental Status: She is alert and oriented to person, place, and time. Motor: Weakness present. Gait: Gait abnormal. Psychiatric: Mood and Affect: Mood normal. Behavior: Behavior normal. Thought Content: Thought content normal. POC discussed with appropriate parties and nursing staff. Previous progress note was copied forward updated where appropriate and reflective of current medical decision making today 11/08/23 Electronically signed by Sharyn Andrade APRN.BOXING AND PRESSING SUPERVISOR documented in this encounter [facility] 11-07-2023 Telephone encounter Note Please review and complete. Will be placed in your temp file.Thank you [facility] 11-07-2023 Miscellaneous Notes Please review and complete. Will be placed in your temp file.Thank you documented in this encounter [facility] 11-07-2023 Telephone encounter Note Please review and complete. Will be placed in your temp file.Thank you [facility] 11-07-2023 Miscellaneous Notes Please review and complete. Will be placed in your temp file.Thank you documented in this encounter [facility] 11-07-2023 Telephone encounter Note Please review and complete. Will be placed in your temp file.Thank you [facility] 11-07-2023 Miscellaneous Notes Please review and complete. Will be placed in your temp file.Thank you documented in this encounter [facility] 11-07-2023 Telephone encounter Note Please review and complete. Will be placed in your temp file.Thank you [facility] 11-07-2023 Miscellaneous Notes Please review and complete. Will be placed in your temp file.Thank you documented in this encounter [facility] 11-07-2023 Telephone encounter Note Please review and complete. Will be placed in your temp file.Thank you [facility] 11-07-2023 Miscellaneous Notes Please review and complete. Will be placed in your temp file.Thank you documented in this encounter [facility] 11-07-2023 Telephone encounter Note Please review and complete. Will be placed in your temp file.Thank you [facility] 11-07-2023 Miscellaneous Notes Please review and complete. Will be placed in your temp file.Thank you documented in this encounter [facility] 11-07-2023 Telephone encounter Note Please review and complete. Will be placed in your temp file.Thank you [facility] 11-07-2023 Miscellaneous Notes Please review and complete. Will be placed in your temp file.Thank you documented in this encounter [facility] 11-07-2023 Telephone encounter Note Please review and complete. Will be placed in your temp file.Thank you [facility] 11-07-2023 Miscellaneous Notes Please review and complete. Will be placed in your temp file.Thank you documented in this encounter [facility] 11-07-2023 Telephone encounter Note Please review and complete. Will be placed in your temp file.Thank you [facility] 11-07-2023 Miscellaneous Notes Please review and complete. Will be placed in your temp file.Thank you documented in this encounter [facility] 11-07-2023 Telephone encounter Note Please review and complete. Will be placed in your temp file.Thank you [facility] 11-07-2023 Miscellaneous Notes Please review and complete. Will be placed in your temp file.Thank you documented in this encounter [facility] 11-07-2023 Telephone encounter Note Please review and complete. Will be placed in your temp file.Thank you [facility] 11-07-2023 Miscellaneous Notes Please review and complete. Will be placed in your temp file.Thank you documented in this encounter [facility] 11-06-2023 History of Present illness Narrative Images from the original note were not included. Connected Care Unit Progress Note Patient Name: Ana Lopes Patient Facility: [facility] Admit Date 10/25/2023 Level of Care: Skilled SNF Attending: Nelson Calderon D.O. Service Date: 11/06/2023 Code Status: Full Code Chief Complaint: Evaluation regarding debility and rehabilitation progress. ASSESSMENT AND PLAN (I50.32) Chronic heart failure with preserved ejection fraction (HCC) - EF=63% when checked 05/15/2023 - Continue on Furosemide - On chronic oxygen; no chest pain or shortness of breath; BLE edema noted (J96.11) Chronic respiratory failure with hypoxia (HCC) - On 2L oxygen; 2-3L baseline - Continue on Anoro Ellipta and Albuterol - No shortness of breath or chest tightness Complete atrioventricular block (HCC) [I44.2] Pacemaker [Z95.0] Medtronic dual-chamber pacemaker implanted 10/22/2023; RV septal lead paced QRS 120 ms Incision site covered with dressing F/u with EP Dr leon (R53.81) Debility (primary encounter diagnosis) (E66.01) Morbid obesity (HCC) - Certify therapies - Maintain high falls risk precautions - pt/staff verbalize understanding validated via teach back - Monitor safety awareness Appointments for Next 60 Days Date Time Provider Location Dept Phone 12/05/2023 4:00 PM [facility] [phone] HPI: (Per hospital dc summ Ana Lopes is a 78 year old female with past medical history of epilepsy, DM type II, HFpEF, COPD (on chronic 3L NC), interstitial lung disease, MARY, obesity who presented via EMS to [facility] ED due to concern for breakthrough seizures. Neurology was consulted and continuous bedside EEG ordered. There was no evidence of seizure-like activity during monitoring. She was advised to follow up with epilepsy outpatient and continue Keppra. Patient noted to have symptomatic pauses on tele for which cardiology was consulted. She underwent PPM insertion on 10/21 due to intermittent complete heart block. Patient tolerated procedure well without complications post-operatively. She was discharged in stable condition to SNF with close outpatient follow up with epilepsy, cardiology, EP and PCP. 11/05/23 Update Pt is stable she is seen in bed and reports doing well her pacemaker site is open to air incision CDI she denies pain and discomfort states she is working with therapy but has difficulty walking nursing has no new concerns to report Update 11/06/2023 Pt seen sitting up in WC after using the restroom. Pt was able to stand with assistance but gets short of breath easily. Pt wanted her oxygen back on. Pt states therapy is going well. 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 She denies any complaints at this time. Will cont to monitor. PAST MEDICAL HISTORY Diagnosis Date Anxiety 02/06/2018 Bradycardia 10/21/2023 Class 3 obesity with alveolar hypoventilation without serious comorbidity with body mass index (BMI) of 45.0 to 49.9 in adult (HCC) 04/01/2018 Complete atrioventricular block (HCC) 10/21/2023 Diabetes mellitus, type 2 (HCC) Hypercholesteremia Lymphedema of both lower extremities 02/09/2018 Nephrolithiasis 10/14/2020 status post perc nephrolithotomy MARY (obstructive sleep apnea) 02/06/2018 Presence of cardiac pacemaker 10/22/2023 Medtronic dual-chamber pacemaker implanted 10/22/2023; RV septal lead paced QRS 120 ms; indication: CHB; system will be MRI conditional after 6 weeks post implant Restrictive lung disease 03/13/2018 PFT 03/11/18: 38% of predicted FVC, reduced TLC, moderately reduced Diffusing capacity Rheumatoid arthritis ([facility]) Seizure disorder ([facility]) 02/06/2018 Type 2 diabetes mellitus with complication, without long-term current use of insulin ([facility]) 02/26/2018 SUBJECTIVE: Review of Systems Constitutional: Negative for appetite change, chills, fatigue and fever. HENT: Negative for congestion and trouble swallowing. Eyes: Negative for visual disturbance. Respiratory: Negative for apnea, chest tightness, shortness of breath and wheezing. Cardiovascular: Negative for chest pain, palpitations and leg swelling. Gastrointestinal: Negative for abdominal distention, abdominal pain, constipation, diarrhea, nausea and vomiting. Endocrine: Negative for polydipsia, polyphagia and polyuria. Genitourinary: Negative for difficulty urinating, dysuria and frequency. Musculoskeletal: Positive for gait problem. Neurological: Positive for weakness. Psychiatric/Behavioral: Negative for agitation, behavioral problems and confusion. No reports of falls/injuries, changes in cognition/behaviors, or any uncontrolled pain exacerbations. Medications: Medications listed in Epic during SNF admission may not be current. Refer to facility record. Patient records, current medications, most recent labs, family/social history (unchanged) Reviewed. Refer to facility records. OBJECTIVE: 11/04/2023 Vital Signs: BP 126/68 Pulse 72 Temp 36.6 C (97.9 F) Resp 20 Wt 112.4 kg (247 lb 12.8 oz) SpO2 95% BMI 45.32 kg/m Physical Exam: Physical Exam Constitutional: General: She is not in acute distress. Appearance: She is not ill-appearing. HENT: Head: Normocephalic. Mouth/Throat: Mouth: Mucous membranes are moist. Eyes: Pupils: Pupils are equal, round, and reactive to light. Cardiovascular: Rate and Rhythm: Normal rate and regular rhythm. Pulses: Normal pulses. Heart sounds: Normal heart sounds. Pulmonary: Effort: Pulmonary effort is normal. No respiratory distress. Breath sounds: No wheezing, rhonchi or rales. Abdominal: General: Bowel sounds are normal. There is no distension. Palpations: Abdomen is soft. Tenderness: There is no abdominal tenderness. Musculoskeletal: Cervical back: Neck supple. Right lower leg: No edema. Left lower leg: No edema. Skin: Findings: No bruising, erythema or rash. Neurological: General: No focal deficit present. Mental Status: She is alert and oriented to person, place, and time. Motor: Weakness present. Gait: Gait abnormal. Psychiatric: Mood and Affect: Mood normal. Behavior: Behavior normal. Thought Content: Thought content normal. POC discussed with appropriate parties and nursing staff. Previous progress note was copied forward updated where appropriate and reflective of current medical decision making today 11/06/2023 Electronically signed by Omaira Mcintyre APRN.BOXING AND PRESSING SUPERVISOR documented in this encounter [facility] 11-05-2023 Nurse Note Sulma from [facility] calls to report she was present with pt when Lt ACW Aquacel dressing was removed by their wound nurse. She reports Lt ACW Aquacel dressing removes easily. Incision is well approximated without bleeding, drainage. edema or redness. Sulma reports pt denies pain at site or fever/chills. Karee voices understanding that pt may shower but not submerge in water. Karee voices understanding that movement restrictions remain in place for Lt shoulder. Carmela Henderson RN [facility] 11-05-2023 Nurse Note Sulma from [facility] calls to report she was present with pt when Lt ACW Aquacel dressing was removed by their wound nurse. She reports Lt ACW Aquacel dressing removes easily. Incision is well approximated without bleeding, drainage. edema or redness. Sulma reports pt denies pain at site or fever/chills. Sulma voices understanding that pt may shower but not submerge in water. Sulma voices understanding that movement restrictions remain in place for Lt shoulder. Carmela Henderson RN documented in this encounter [facility] 11-05-2023 History of Present illness Narrative Images from the original note were not included. Connected Care Unit Progress Note Patient Name: Ana Lopes Patient Facility: [facility] Admit Date 10/25/2023 Level of Care: Skilled SNF Attending: Nelson Calderon D.O. Service Date: 11/05/2023 Code Status: Full Code Chief Complaint: Evaluation regarding debility and rehabilitation progress. ASSESSMENT AND PLAN (I50.32) Chronic heart failure with preserved ejection fraction (HCC) - EF=63% when checked 05/15/2023 - Continue on Furosemide - On chronic oxygen; no chest pain or shortness of breath; BLE edema noted (J96.11) Chronic respiratory failure with hypoxia (HCC) - On 2L oxygen; 2-3L baseline - Continue on Anoro Ellipta and Albuterol - No shortness of breath or chest tightness Complete atrioventricular block (HCC) [I44.2] Pacemaker [Z95.0] Medtronic dual-chamber pacemaker implanted 10/22/2023; RV septal lead paced QRS 120 ms Incision site covered with dressing F/u with EP Dr leon (R53.81) Debility (primary encounter diagnosis) (E66.01) Morbid obesity (HCC) - Certify therapies - Maintain high falls risk precautions - pt/staff verbalize understanding validated via teach back - Monitor safety awareness Appointments for Next 60 Days Date Time Provider Location Dept Phone 12/05/2023 4:00 PM [facility] [phone] HPI: (Per hospital dc summ Ana Lopes is a 78 year old female with past medical history of epilepsy, DM type II, HFpEF, COPD (on chronic 3L NC), interstitial lung disease, MARY, obesity who presented via EMS to [facility] ED due to concern for breakthrough seizures. Neurology was consulted and continuous bedside EEG ordered. There was no evidence of seizure-like activity during monitoring. She was advised to follow up with epilepsy outpatient and continue Keppra. Patient noted to have symptomatic pauses on tele for which cardiology was consulted. She underwent PPM insertion on 10/21 due to intermittent complete heart block. Patient tolerated procedure well without complications post-operatively. She was discharged in stable condition to SNF with close outpatient follow up with epilepsy, cardiology, EP and PCP. 11/05/23 Update Pt is stable she is seen in bed and reports doing well her pacemaker site is open to air incision CDI she denies pain and discomfort states she is working with therapy but has difficulty walking nursing has no new concerns to report PAST MEDICAL HISTORY Diagnosis Date Anxiety 02/06/2018 Bradycardia 10/21/2023 Class 3 obesity with alveolar hypoventilation without serious comorbidity with body mass index (BMI) of 45.0 to 49.9 in adult ([facility]) 04/01/2018 Complete atrioventricular block ([facility]) 10/21/2023 Diabetes mellitus, type 2 ([facility]) Hypercholesteremia Lymphedema of both lower extremities 02/09/2018 Nephrolithiasis 10/14/2020 status post perc nephrolithotomy MARY (obstructive sleep apnea) 02/06/2018 Presence of cardiac pacemaker 10/22/2023 Medtronic dual-chamber pacemaker implanted 10/22/2023; RV septal lead paced QRS 120 ms; indication: CHB; system will be MRI conditional after 6 weeks post implant Restrictive lung disease 03/13/2018 PFT 03/11/18: 38% of predicted FVC, reduced TLC, moderately reduced Diffusing capacity Rheumatoid arthritis ([facility]) Seizure disorder ([facility]) 02/06/2018 Type 2 diabetes mellitus with complication, without long-term current use of insulin ([facility]) 02/26/2018 SUBJECTIVE: Review of Systems Constitutional: Negative for appetite change, chills, fatigue and fever. HENT: Negative for congestion and trouble swallowing. Eyes: Negative for visual disturbance. Respiratory: Negative for apnea, chest tightness, shortness of breath and wheezing. Cardiovascular: Negative for chest pain, palpitations and leg swelling. Gastrointestinal: Negative for abdominal distention, abdominal pain, constipation, diarrhea, nausea and vomiting. Endocrine: Negative for polydipsia, polyphagia and polyuria. Genitourinary: Negative for difficulty urinating, dysuria and frequency. Musculoskeletal: Positive for gait problem. Neurological: Positive for weakness. Psychiatric/Behavioral: Negative for agitation, behavioral problems and confusion. No reports of falls/injuries, changes in cognition/behaviors, or any uncontrolled pain exacerbations. Medications: Medications listed in Epic during SNF admission may not be current. Refer to facility record. Patient records, current medications, most recent labs, family/social history (unchanged) Reviewed. Refer to facility records. OBJECTIVE: Latest Reference Range & Units 10/25/23 04:40 Sodium 136 - 144 mmol/L 136 Potassium 3.7 - 5.1 mmol/L 4.1 Chloride 97 - 105 mmol/L 96 (L) CO2 22 - 30 mmol/L 36 (H) BUN 7 - 21 mg/dL 21 Creatinine 0.58 - 0.96 mg/dL 0.69 Glucose 74 - 99 mg/dL 144 (H) Calcium 8.5 - 10.2 mg/dL 9.4 Anion Gap 9 - 18 mmol/L 4 (L) eGFR >=60 mL/min/1.73m 90 (L): Data is abnormally low (H): Data is abnormally high Vital Signs: BP 124/72 Pulse 67 Temp 36.6 C (97.9 F) Resp 18 SpO2 98% Physical Exam: Physical Exam Constitutional: General: She is not in acute distress. Appearance: She is not ill-appearing. HENT: Head: Normocephalic. Mouth/Throat: Mouth: Mucous membranes are moist. Eyes: Pupils: Pupils are equal, round, and reactive to light. Cardiovascular: Rate and Rhythm: Normal rate and regular rhythm. Pulses: Normal pulses. Heart sounds: Normal heart sounds. Pulmonary: Effort: Pulmonary effort is normal. No respiratory distress. Breath sounds: No wheezing, rhonchi or rales. Abdominal: General: Bowel sounds are normal. There is no distension. Palpations: Abdomen is soft. Tenderness: There is no abdominal tenderness. Musculoskeletal: Cervical back: Neck supple. Right lower leg: No edema. Left lower leg: No edema. Skin: Findings: No bruising, erythema or rash. Neurological: General: No focal deficit present. Mental Status: She is alert and oriented to person, place, and time. Motor: Weakness present. Gait: Gait abnormal. Psychiatric: Mood and Affect: Mood normal. Behavior: Behavior normal. Thought Content: Thought content normal. POC discussed with appropriate parties and nursing staff. Previous progress note was copied forward updated where appropriate and reflective of current medical decision making today 11/05/23 Electronically signed by Sharyn Andrade APRN.BOXING AND PRESSING SUPERVISOR documented in this encounter [facility] 11-04-2023 Telephone encounter Note Spoke with Sulma. She reports Aquacel dressing remains in place. She reports there is a wound nurse on site who knows how to remove Aquacel dressings. Sulma reports the wound nurse will remove the dressing today then call me. Carmela Henderson RN [facility] 11-04-2023 Miscellaneous Notes Spoke with Sulma. She reports Aquacel dressing remains in place. She reports there is a wound nurse on site who knows how to remove Aquacel dressings. Sulma reports the wound nurse will remove the dressing today then call me. Carmela Henderson RN Sulma [phone] call received from [facility]. Pt was transferred to SNF after post op. Pt missed her wound check apt. She still has the aqua cell in place. Please return call with instructions. Fred Berkowitz LPN documented in this encounter [facility] 11-04-2023 Telephone encounter Note Sulma [phone] call received from [facility]. Pt was transferred to SNF after post op. Pt missed her wound check apt. She still has the aqua cell in place. Please return call with instructions. Fred Berkowitz LPN [facility] 11-01-2023 History of Present illness Narrative Images from the original note were not included. Connected Care Unit Progress Note Patient Name: Ana Lopes Patient Facility: [facility] Admit Date 10/25/2023 Level of Care: Skilled SNF Attending: Nelson Calderon D.O. Service Date: 11/01/2023 Code Status: Full Code Chief Complaint: Evaluation regarding debility and rehabilitation progress. ASSESSMENT AND PLAN (I50.32) Chronic heart failure with preserved ejection fraction (HCC) - EF=63% when checked 05/15/2023 - Continue on Furosemide - On chronic oxygen; no chest pain or shortness of breath; BLE edema noted (J96.11) Chronic respiratory failure with hypoxia (HCC) - On 2L oxygen; 2-3L baseline - Continue on Anoro Ellipta and Albuterol - No shortness of breath or chest tightness Complete atrioventricular block (HCC) [I44.2] Pacemaker [Z95.0] Medtronic dual-chamber pacemaker implanted 10/22/2023; RV septal lead paced QRS 120 ms Incision site covered with dressing F/u with EP Dr leon (R53.81) Debility (primary encounter diagnosis) (E66.01) Morbid obesity (HCC) - Certify therapies - Maintain high falls risk precautions - pt/staff verbalize understanding validated via teach back - Monitor safety awareness Appointments for Next 60 Days Date Time Provider Location Dept Phone 12/05/2023 4:00 PM [facility] [phone] HPI: (Per hospital dc summ Ana Lopes is a 78 year old female with past medical history of epilepsy, DM type II, HFpEF, COPD (on chronic 3L NC), interstitial lung disease, MARY, obesity who presented via EMS to [facility] ED due to concern for breakthrough seizures. Neurology was consulted and continuous bedside EEG ordered. There was no evidence of seizure-like activity during monitoring. She was advised to follow up with epilepsy outpatient and continue Keppra. Patient noted to have symptomatic pauses on tele for which cardiology was consulted. She underwent PPM insertion on 10/21 due to intermittent complete heart block. Patient tolerated procedure well without complications post-operatively. She was discharged in stable condition to SNF with close outpatient follow up with epilepsy, cardiology, EP and PCP. 11/01/23 Update Patient is stable she is seen in her room she reports no pain at the pacemaker site today no new acute concerns nursing staff has no new acute concerns she is tolerating her baseline oxygen Encouraged hydration labs reviewed and stable she is compliant with therapy PAST MEDICAL HISTORY Diagnosis Date Anxiety 02/06/2018 Bradycardia 10/21/2023 Class 3 obesity with alveolar hypoventilation without serious comorbidity with body mass index (BMI) of 45.0 to 49.9 in adult (HCC) 04/01/2018 Complete atrioventricular block (HCC) 10/21/2023 Diabetes mellitus, type 2 (HCC) Hypercholesteremia Lymphedema of both lower extremities 02/09/2018 Nephrolithiasis 10/14/2020 status post perc nephrolithotomy MARY (obstructive sleep apnea) 02/06/2018 Presence of cardiac pacemaker 10/22/2023 Medtronic dual-chamber pacemaker implanted 10/22/2023; RV septal lead paced QRS 120 ms; indication: CHB; system will be MRI conditional after 6 weeks post implant Restrictive lung disease 03/13/2018 PFT 03/11/18: 38% of predicted FVC, reduced TLC, moderately reduced Diffusing capacity Rheumatoid arthritis (HCC) Seizure disorder ([facility]) 02/06/2018 Type 2 diabetes mellitus with complication, without long-term current use of insulin ([facility]) 02/26/2018 SUBJECTIVE: Review of Systems Constitutional: Negative for appetite change, chills, fatigue and fever. HENT: Negative for congestion and trouble swallowing. Eyes: Negative for visual disturbance. Respiratory: Negative for apnea, chest tightness, shortness of breath and wheezing. Cardiovascular: Negative for chest pain, palpitations and leg swelling. Gastrointestinal: Negative for abdominal distention, abdominal pain, constipation, diarrhea, nausea and vomiting. Endocrine: Negative for polydipsia, polyphagia and polyuria. Genitourinary: Negative for difficulty urinating, dysuria and frequency. Musculoskeletal: Positive for gait problem. Neurological: Positive for weakness. Psychiatric/Behavioral: Negative for agitation, behavioral problems and confusion. No reports of falls/injuries, changes in cognition/behaviors, or any uncontrolled pain exacerbations. Medications: Medications listed in Epic during SNF admission may not be current. Refer to facility record. Patient records, current medications, most recent labs, family/social history (unchanged) Reviewed. Refer to facility records. OBJECTIVE: Latest Reference Range & Units 10/25/23 04:40 Sodium 136 - 144 mmol/L 136 Potassium 3.7 - 5.1 mmol/L 4.1 Chloride 97 - 105 mmol/L 96 (L) CO2 22 - 30 mmol/L 36 (H) BUN 7 - 21 mg/dL 21 Creatinine 0.58 - 0.96 mg/dL 0.69 Glucose 74 - 99 mg/dL 144 (H) Calcium 8.5 - 10.2 mg/dL 9.4 Anion Gap 9 - 18 mmol/L 4 (L) eGFR >=60 mL/min/1.73m 90 (L): Data is abnormally low (H): Data is abnormally high Vital Signs: BP 124/66 Pulse 70 Temp 36.7 C (98 F) Resp 18 SpO2 97% Physical Exam: Physical Exam Constitutional: General: She is not in acute distress. Appearance: She is not ill-appearing. HENT: Head: Normocephalic. Mouth/Throat: Mouth: Mucous membranes are moist. Eyes: Pupils: Pupils are equal, round, and reactive to light. Cardiovascular: Rate and Rhythm: Normal rate and regular rhythm. Pulses: Normal pulses. Heart sounds: Normal heart sounds. Pulmonary: Effort: Pulmonary effort is normal. No respiratory distress. Breath sounds: No wheezing, rhonchi or rales. Abdominal: General: Bowel sounds are normal. There is no distension. Palpations: Abdomen is soft. Tenderness: There is no abdominal tenderness. Musculoskeletal: Cervical back: Neck supple. Right lower leg: No edema. Left lower leg: No edema. Skin: Findings: No bruising, erythema or rash. Neurological: General: No focal deficit present. Mental Status: She is alert and oriented to person, place, and time. Motor: Weakness present. Gait: Gait abnormal. Psychiatric: Mood and Affect: Mood normal. Behavior: Behavior normal. Thought Content: Thought content normal. POC discussed with appropriate parties and nursing staff. Previous progress note was copied forward updated where appropriate and reflective of current medical decision making today 10/31 Electronically signed by Sharyn Andrade APRN.BOXING AND PRESSING SUPERVISOR documented in this encounter [facility] 10-29-2023 History of Present illness Narrative Images from the original note were not included. Connected Care Unit Progress Note Patient Name: Ana Lopes Patient Facility: [facility] Admit Date 10/25/2023 Level of Care: Skilled SNF Attending: Nelson Calderon D.O. Service Date: 10/29/2023 Code Status: Full Code Chief Complaint: Evaluation regarding debility and rehabilitation progress. ASSESSMENT AND PLAN (I50.32) Chronic heart failure with preserved ejection fraction (HCC) - EF=63% when checked 05/15/2023 - Continue on Furosemide - On chronic oxygen; no chest pain or shortness of breath; BLE edema noted (J96.11) Chronic respiratory failure with hypoxia (HCC) - On 2L oxygen; 2-3L baseline - Continue on Anoro Ellipta and Albuterol - No shortness of breath or chest tightness Complete atrioventricular block (HCC) [I44.2] Pacemaker [Z95.0] Medtronic dual-chamber pacemaker implanted 10/22/2023; RV septal lead paced QRS 120 ms Incision site covered with dressing (R53.81) Debility (primary encounter diagnosis) (E66.01) Morbid obesity (HCC) - Certify therapies - Maintain high falls risk precautions - pt/staff verbalize understanding validated via teach back - Monitor safety awareness Appointments for Next 60 Days Date Time Provider Location Dept Phone 10/30/2023 11:00 AM NURSE [facility]ARD [facility] [phone] 12/05/2023 4:00 PM [facility] IRINA [phone] HPI: (Per hospital dc summ Ana Lopes is a 78 year old female with past medical history of epilepsy, DM type II, HFpEF, COPD (on chronic 3L NC), interstitial lung disease, MARY, obesity who presented via EMS to [facility] ED due to concern for breakthrough seizures. Neurology was consulted and continuous bedside EEG ordered. There was no evidence of seizure-like activity during monitoring. She was advised to follow up with epilepsy outpatient and continue Keppra. Patient noted to have symptomatic pauses on tele for which cardiology was consulted. She underwent PPM insertion on 10/21 due to intermittent complete heart block. Patient tolerated procedure well without complications post-operatively. She was discharged in stable condition to SNF with close outpatient follow up with epilepsy, cardiology, EP and PCP. 10/29/23 Update Patient is stable she is seen and examined in her room she admits to SNF for rehab after she underwent sx for pacemaker implantation she is alert and oriented times 3 reports pain at the site no new acute concerns nursing staff has no new acute concerns she seems to be in no acute respiratory distress she is tolerating her baseline oxygen Encouraged hydration labs reviewed and stable PAST MEDICAL HISTORY Diagnosis Date Anxiety 02/06/2018 Bradycardia 10/21/2023 Class 3 obesity with alveolar hypoventilation without serious comorbidity with body mass index (BMI) of 45.0 to 49.9 in adult (HCC) 04/01/2018 Complete atrioventricular block (HCC) 10/21/2023 Diabetes mellitus, type 2 ([facility]) Hypercholesteremia Lymphedema of both lower extremities 02/09/2018 Nephrolithiasis 10/14/2020 status post perc nephrolithotomy MARY (obstructive sleep apnea) 02/06/2018 Presence of cardiac pacemaker 10/22/2023 Medtronic dual-chamber pacemaker implanted 10/22/2023; RV septal lead paced QRS 120 ms; indication: CHB; system will be MRI conditional after 6 weeks post implant Restrictive lung disease 03/13/2018 PFT 03/11/18: 38% of predicted FVC, reduced TLC, moderately reduced Diffusing capacity Rheumatoid arthritis ([facility]) Seizure disorder ([facility]) 02/06/2018 Type 2 diabetes mellitus with complication, without long-term current use of insulin ([facility]) 02/26/2018 SUBJECTIVE: Review of Systems Constitutional: Negative for appetite change, chills, fatigue and fever. HENT: Negative for congestion and trouble swallowing. Eyes: Negative for visual disturbance. Respiratory: Negative for apnea, chest tightness, shortness of breath and wheezing. Cardiovascular: Negative for chest pain, palpitations and leg swelling. Gastrointestinal: Negative for abdominal distention, abdominal pain, constipation, diarrhea, nausea and vomiting. Endocrine: Negative for polydipsia, polyphagia and polyuria. Genitourinary: Negative for difficulty urinating, dysuria and frequency. Musculoskeletal: Positive for gait problem. Neurological: Positive for weakness. Psychiatric/Behavioral: Negative for agitation, behavioral problems and confusion. No reports of falls/injuries, changes in cognition/behaviors, or any uncontrolled pain exacerbations. Medications: Medications listed in Epic during SNF admission may not be current. Refer to facility record. Patient records, current medications, most recent labs, family/social history (unchanged) Reviewed. Refer to facility records. OBJECTIVE: Latest Reference Range & Units 10/25/23 04:40 Sodium 136 - 144 mmol/L 136 Potassium 3.7 - 5.1 mmol/L 4.1 Chloride 97 - 105 mmol/L 96 (L) CO2 22 - 30 mmol/L 36 (H) BUN 7 - 21 mg/dL 21 Creatinine 0.58 - 0.96 mg/dL 0.69 Glucose 74 - 99 mg/dL 144 (H) Calcium 8.5 - 10.2 mg/dL 9.4 Anion Gap 9 - 18 mmol/L 4 (L) eGFR >=60 mL/min/1.73m 90 (L): Data is abnormally low (H): Data is abnormally high Vital Signs: BP 124/60 Pulse 65 Temp 36.7 C (98 F) Resp 18 SpO2 98% Physical Exam: Physical Exam Constitutional: General: She is not in acute distress. Appearance: She is not ill-appearing. HENT: Head: Normocephalic. Mouth/Throat: Mouth: Mucous membranes are moist. Eyes: Pupils: Pupils are equal, round, and reactive to light. Cardiovascular: Rate and Rhythm: Normal rate and regular rhythm. Pulses: Normal pulses. Heart sounds: Normal heart sounds. Pulmonary: Effort: Pulmonary effort is normal. No respiratory distress. Breath sounds: No wheezing, rhonchi or rales. Abdominal: General: Bowel sounds are normal. There is no distension. Palpations: Abdomen is soft. Tenderness: There is no abdominal tenderness. Musculoskeletal: Cervical back: Neck supple. Right lower leg: No edema. Left lower leg: No edema. Skin: Findings: No bruising, erythema or rash. Neurological: General: No focal deficit present. Mental Status: She is alert and oriented to person, place, and time. Motor: Weakness present. Gait: Gait abnormal. Psychiatric: Mood and Affect: Mood normal. Behavior: Behavior normal. Thought Content: Thought content normal. POC discussed with appropriate parties and nursing staff. Electronically signed by Sharyn Andrade APRN.BOXING AND PRESSING SUPERVISOR documented in this encounter [facility] 10-27-2023 History of Present illness Narrative TRANSITION CARE MANAGEMENT (TCM) DISCHARGE TO POST ACUTE FACILITY POST ACUTE TRANSFER SUMMARY: -Pt discharged from [facility] on 10/25/2023. -Post Acute Facility Admitted to [facility] -Admitted for: Breakthrough seizure Office PCC will follow at discharge Ileana Garner RN October 27, 2023 5:16 PM documented in this encounter [facility] 10-22-2023 Miscellaneous Notes Follow up(s) scheduled. Patient to be notified upon discharge. Lanny Bro Ms. Lopes needs an appointment with a nurse in 7 - 10 days for wound check and Aquacel dressing removal after pacemaker surgical procedure today. Leydi Leon MD October 22, 2023 1:21 PM documented in this encounter [facility] 10-21-2023 History of Present illness Narrative [facility] Transitional Care Management (TCM) Inpatient Patient Visit/Outreach Provider Action/FYI May dc to SNF Uses [facility] or son for transportation. Patient Admitted To [facility] on 10/19/23 Patient admitted for Seizure Contact Made with Patient at bedside Yes, room [facility]- Patient identified by name and date of . Others Present at bedside No ,name relationship to patient , permission to include in bedside discussion Patient introduced to the transitional care management team; explained our purpose, mission, and provided hours of operation, M-F 8-4 PM, excluding holidays. We provided them with resources and our contact information. Resources: Primary Care Provider First Card, Transitional Care Management Card, eClarity Flyer, TCM RN business Card, yes Patient educated on importance of primary care provider follow up visit as well as specialty provider follow up visits as indicated. Scheduled PCP follow up appointment No Discharge plans appear to be other than Home or Home Health Care Date , Time , Does patient have any concerns or barriers to returning home? No Health leads screening tool questions: Do you often feel you lack companionship? No Do you ever need help reading or understanding hospital materials? Yes Sometimes. In the last 12 months, have you changed how you take medications to save money? No In the past 12 months, has lack of transportation kept you from medical appointments, work, or getting things you need like food, or supplies? No In the last 12 months, did you ever eat less than you felt you should because there wasn't enough money for food? No During the winter, do you anticipate having a problem paying your heating bill? No In the next 2 months, are you worried you might not have stable housing? No If needs identified: Would you like to receive assistance with any of these needs after discharge? No Resources/Referrals None Advanced Directives: Already in chart Living Will: Declined Meds to bed initiated No Educated patient on post discharge expectations, contingency management, and post-discharge programs available to them. Encouraged patient to refer to and read the hospital discharge summary again once they are home. HRTIC NA If Yes, Confirm demographics, where patient will reside at discharge. TCM RN to do referral upon discharge. We have your contact number as [phone], , is this the best number to contact you? Yes Address: [facility] [address] [facility] [address] , is this where you will be staying after discharge? Yes Do you give us permission to speak to anyone else if you are unavailable to speak to us? Yes son and sister name Ed Lopes, relationship son and contact number [phone] . Sister, Divya [phone] Fernando Ng RN October 21, 2023 1:30 PM documented in this encounter [facility] 10-17-2023 Miscellaneous Notes Spoke with Ana Lopes on October 17, 2023. Informed of providers message, patient verbalized understanding, and denies questions. Patient states Neuro appointment is on Saturday. Radha Driscoll LPN Images from the original note were not included. Yeimi Silva, DO You; [facility] Clinical Pool 1 hour ago (7:20 AM) FK Patient should schedule follow-up appointment with neurology if she is having breakthrough seizures. Additionally, if they are occurring more frequently or the patient is hitting her head during them she should present to the ED for further evaluation. Patient advised this nurse she was told to call the office to inform PCP of seizure activity. Patient informed this nurse patient had a seizure this morning while sitting on the toilet. Patient states "I hit my head on the tub when I came to I was on the floor". Patient denies injury states paramedics were called and patient was assessed, they did not transport patient to the hospital (head to toe assessment and vitals were good). Patient also informed this nurse she had "a seizure yesterday while half asleep in bed". Patients aide was present and advised appointment for neurology referral was never made, central scheduling phone number provided to aide. Please advise. Radha Driscoll LPN documented in this encounter [facility] 10-15-2023 Miscellaneous Notes Addended by: ESE MARMOLEJO on: 10/15/2023 10:24 AM Modules accepted: Orders documented in this encounter [facility] 10-15-2023 History of Present illness Narrative Chief Complaint: Diabetic nail care HPI: This is a 78 year old female presents for diabetic nail care. Patient states that feet are doing well. No new issues. Has been hospitalized a couple times due to other medical issues - seizure and pneumonia. Now on oxygen at all times. Patient states her blood sugar have been around the 120s. Has been using DM shoes and inserts. No other pedal complaints. PCP: Tami Long, PAST MEDICAL HISTORY Diagnosis Date Diabetes (HCC) Hypercholesteremia Nephrolithiasis 10/14/2020 status post perc nephrolithotomy Rheumatoid arthritis (HCC) : Current Outpatient Medications Medication Sig Incontinence Pad, Liner, Disp pads Use as many pads/liners daily as needed Diaper,Brief, Adult,Disposable (PREVAIL UNDERWEAR) 1 Units once daily. Disposable Gloves (DISPOSABLE LATEX-FREE GLOVES) [facility] 1 Box as directed. yebhfek-omfdwzlqa-vmcufdt D3 (OYSTER SHELL CALCIUM-VITAMIN D) 500 mg-5 mcg (200 unit) per tablet TAKE 1 TABLET BY MOUTH EVERY MORNING Vitamin E external oil Apply 1 application to affected area once daily. lancets (GeekChicDailyUCH DELICA PLUS LANCET) 30 gauge USE TWICE DAILY TO CHECK BLOOD SUGAR DIRECTED umeclidinium-vilanterol (ANORO ELLIPTA) 62.5-25 mcg/actuation inhaler Inhale 1 Inhalation as instructed once daily. furosemide (LASIX) 20 mg tablet Take 1 tablet by mouth once daily. fluticasone (FLONASE) 50 mcg/actuation nasal spray Use 1 [place]oulder in each nostril once daily. atorvastatin (LIPITOR) 80 mg tablet Take 1 tablet by mouth daily at bedtime. B6/folic/B12/coffee/phosphatid (NEURIVA PLUS BRAIN PERFORMANCE ORAL) Take by mouth. prednisoLONE acetate (PRED FORTE, ECONOPRED PLUS) 1 % ophthalmic suspension 1 Drop three times a day. polyvinyl alcohol (LIQUIFILM TEARS) 1.4 % ophthalmic solution Use 1 Drop in both eyes as needed. albuterol HFA (PROVENTIL HFA, VENTOLIN HFA) 90 mcg/actuation inhaler INHALE 2 PUFFS BY MOUTH EVERY 6 HOURS INSTRUCTED NEEDED levETIRAcetam (KEPPRA) 750 mg tablet Take 1 tablet by mouth two times a day. metFORMIN (GLUCOPHAGE) 1,000 mg tablet Take 1 tablet by mouth two times a day with meals. nystatin (MYCOSTATIN) powder APPLY TOPICALLY TO AFFECTED AREAS TWICE DAILY diclofenac (VOLTAREN) 1 % topical gel Apply 4 g to affected area four times a day as needed (Pain). Latex Gloves (LATEX GLOVES, LARGE) misc 1 Units once daily. multivitamin with minerals (VISION/OPTIGEN) tablet Take 1 tablet by mouth once daily. alcohol swabs (ALCOHOL PREP PADS) APPLY TOPICALLY TO AFFECTED AREA(S) EVERY DAY DIRECTED blood sugar diagnostic (ONETOUCH VERIO TEST STRIPS) test strip 1 Strip twice daily. Use as instructed cetirizine (ZYRTEC) 10 mg tablet Take 1 tablet by mouth once daily. Incontinence Pad, Liner, Disp pads 1 Pad as needed. aspirin (VALORIE CHEWABLE ASPIRIN) 81 mg chewable tablet Orally (Patient not taking: Reported on 10/03/2023) No current facility-administered medications for this visit. : ALLERGIES Allergen Reactions Nitroglycerin Cough Seizure Omeprazole Diarrhea Propoxyphene Other: See Comments Headache Acetaminophen GI Upset Codeine Rash Nabumetone GI Upset REVIEW OF SYSTEMS see tech note Physical Exam: On General Observation: Patient is a pleasant, cooperative, morbidly obese 78 year old adult female. The patient is alert and oriented to time, place and person. Patient has normal affect and mood. Presents in wheelchair today Resp 16 Ht 157.5 cm (5' 2") Wt 99.8 kg (220 lb) BMI 40.24 kg/m Vascular: DP pulses are palpable. PT pulses faintly palpable secondary to edema. CFT less than 3 seconds to all digits bilateral. Skin temperature is warm to warm from proximal to distal bilateral. Hair growth is absent. Chronic discoloration to left LE consistent with venous insuffiencey. Moderate pitting edema noted. + varicosities noted. Neuro: Light touch intact bilateral. Protective sensation diminished forefoot right foot, absent to the left forefoot via Dundee Sonali 5.07 monofilament bilateral. No clonus noted. Babinski reflex not elicited bilateral. Dermatological: Skin appears well hydrated and supple. Good color, texture, turgor. Toenails 1,2,3,4,5 bilateral are elongated and thickness but nondystrophic. Subungual hematoma noted to distal aspect of the left hallux nail plate. Webspaces 1-4 are clean, dry, intact bilateral. No rashes, subcutaneous nodules, or open lesions noted. Hyperkeratosis noted sub 5th metatarsal head right foot. Musculoskeletal/Orthopaedic: General foot morphology: rectus arch +5/5 muscle strength Dorsiflexion, Plantarflexion, Inversion, Eversion B/L ROM of the 1st MTPJ is limited without pain or crepitus bilateral. ROM of the MTJ/STJ is full without pain or crepitus bilateral. Ankle joint ROM is decreased in dorsiflexion B/L. t. No pain to the metatarsal heads, no pain with ROM of digits 2-5 on the right. No pain to palpation of the left hallux Hemoglobin A1C (%) Date Value 07/26/2023 6.1 02/06/2018 6.8 Hemoglobin A1C (POCT) (%) Date Value 01/18/2023 7.4 08/21/2022 6.7 12/21/2021 6.9 09/14/2021 7.4 06/16/2021 10.3 ASSESSMENT: This 78 year old female diabetic female patient presents today with PVD/venous insufficiency, lymphedema and onychauxis bilateral feet, callus right foot. . Plan: Patient was examined and evaluated. Patient was educated on clinical and radiographic findings, diagnosis and treatment options. Patient states that she understands all that has been explained and all questions were answered to her apparent satisfaction. - DM foot exam performed - Patient was educated on the complications related to diabetes particularly ocular, renal and neurological and the effects of neuropathy on pedal health - Discussed guidelines for home preventative foot care and signs and symptoms to watch for. - Advised patient on avoidance of barefoot walking and monitoring feet daily. - Continue DM shoes and inserts. - Nails 1-5 B/L were debrided in thickness and length with nail nippers without incident. q9 modifier - Debrided callus x 1 right foot without incident. Q9 - Continue elevation and compression for PVD and lymphedema. - Advised patient to follow up in 3 months or sooner should they have any problems or concerns prior to that time. - Instructed pt to contact our office if any foot problems develop before next visit. Ese Marmolejo DPM REVIEW OF SYSTEMS: GENERAL: Well developed, well nourished. No acute distress PAIN: Negative for pain, history of chronic pain or current treatment for chronic pain conditions CARDIOVASCULAR: Negative for chest pain, leg swelling and palpations. MSK: Positive for joint swelling SKIN: Negative for lesions, rash, itching, metal sensitivity NEURO: Negative for seizure, trauma, numbness/tingling of extremities. ENDOCRINE: Positive for diabetic associated symptoms HEMATOLOGY: Negative for excessive bleeding, clots, bleeding disorders. documented in this encounter [facility] 10-11-2023 History of Present illness Narrative HOME OXYGEN PATIENT ASSESSMENT Portable Oxygen Conserver Evaluation Current prescribed oxygen therapy: 3lpm rest, 4lpm exertion Patient was using prescribed oxygen on arrival: Yes Baseline oximetry Continuous O2 3 lpm Saturation at Rest 95% Continuous O2 4 lpm Saturation with Exertion 91% Titration oximetry Pulse Dose 02 setting 3lpm required to maintain Sp02 > or = to 90% at rest. Saturation 95% Pulse Dose 02 setting 4lpm required to maintain Sp02 > or = to 90% with exertion. Saturation 91% Plan of Care Patient provided Pulse Dose portable oxygen system: Small cylinders with pulse dose regulator Clinical Respiratory Medication Reconciliation: Ellipta every day, Albuterol Q6h prn PLAN Problem/Need: Optimize Portable O2 System Goal: Provide optimal portability Action/Intervention: Assessed and provided patient with optimal portable system. Additional comments: TRANSITION TO EQUIPMENT MAINTENANCE documented in this encounter [facility] 10-09-2023 Miscellaneous Notes Please see note below Addended by: BARBARA HERMAN on: 10/09/2023 05:20 PM Modules accepted: Orders No "other orders". Reordered patient's prior orders for listed supplies. Will need to be faxed to [facility]. Thank you! Patient called the office requesting a refill for Incontinent underwear, pads/liners, and gloves. Please advise. Can you please place the orders in "other orders" thank you. Orders need to be faxed to [facility]. Radha Driscoll LPN documented in this encounter [facility] 10-07-2023 Miscellaneous Notes The pharmacy contacted the office, requesting refills of kbagxxq-xzvohzvyv-xesqqno D3. Patient prefers prescriptions to be e prescribed to [facility] rx pharmacy at [facility]. Last Office Visit Date: 10/03/2023 Last [facility] Visit: Visit date not found Future Appointment: Visit date not found Radha Max documented in this encounter [facility] 09-12-2023 Miscellaneous Notes Pharmacy faxed requesting the following refill Refill(s) Requested: Requested Prescriptions Pending Prescriptions Disp Refills lancets (ONETOUCH DELICA PLUS LANCET) 30 gauge 100 Each 11 Sig: USE TWICE DAILY TO CHECK BLOOD SUGAR DIRECTED ALLERGIES Allergen Reactions Nitroglycerin Cough Seizure Omeprazole Diarrhea Propoxyphene Other: See Comments Headache Acetaminophen GI Upset Codeine Rash Nabumetone GI Upset (home) [phone] (cell) Last Office Visit Date: 07/26/2023 Last [facility] Visit: Visit date not found Future Appointment: 10/03/2023 The patients preferred pharmacy has been captured for this encounter? yes Request is for script(s) to be escript to pharmacy. Kelvin Marks LPN documented in this encounter [facility] 08-30-2023 Miscellaneous Notes Pharmacy faxed requesting the following refill Refill(s) Requested: Requested Prescriptions Pending Prescriptions Disp Refills umeclidinium-vilanterol (ANORO ELLIPTA) 62.5-25 mcg/actuation inhaler 60 Each 3 Sig: Inhale 1 Inhalation as instructed once daily. ALLERGIES Allergen Reactions Nitroglycerin Cough Seizure Omeprazole Diarrhea Propoxyphene Other: See Comments Headache Acetaminophen GI Upset Codeine Rash Nabumetone GI Upset (home) [phone] (cell) Last Office Visit Date: 07/26/2023 Last [facility] Visit: Visit date not found Future Appointment: 10/03/2023 The patients preferred pharmacy has been captured for this encounter? yes Request is for script(s) to be escript to pharmacy. Kelvin Marks LPN documented in this encounter [facility] 06-24-2023 History of Present illness Narrative AG TRANSITIONAL CARE MANAGEMENT (TCM) FOLLOW-UP NOTE Provider Action/FYI: Patient identified by name and date of : YES Spoke to: patient Diagnosis: N/A Summary: Dr. Herman, I contacted patient for TCM follow up. Patient missed her TCM appointment and had new appointment rescheduled for 07/26/2022. I attempted to reschedule earlier and patient declined. Patient said she can not do chewable aspirin and is buying the 81 mg coated aspirin instead. PCC instructed patient to call [phone] with any questions or concerns. Health leads screening tool questions performed? No N/A Concerns: It Professional plan for next outreach: Will follow-up 1 week Signature: Dawood Carcamo RN June 24, 2023 documented in this encounter [facility] 06-17-2023 History of Present illness Narrative AG TRANSITIONAL CARE MANAGEMENT (TCM) FOLLOW-UP NOTE Provider Action/FYI: Patient identified by name and date of : YES Spoke to: patient Diagnosis: N/A Summary: PCC contacted patient for TCM follow up. Patient has no sob, chest pain or weight gain. PCC reminded patient that she has an appointment on 06/19/2023 at 0920. Patient concerned she may not have her aid to help bring her in with an appointment at 0920. PCC asked if 0940 start time would help and patient confirmed that this would help. PCC made patient appointment to start at 0940. PCC instructed patient to call [phone] with any questions or concerns. Health leads screening tool questions performed? No N/A Concerns: It Professional plan for next outreach: Will follow-up 1 week Signature: Dawood Carcamo RN June 17, 2023 documented in this encounter [facility] 06-10-2023 Miscellaneous Notes Patient requesting the following refill Requested Prescriptions Pending Prescriptions Disp Refills furosemide (LASIX) 20 mg tablet Sig: Take 1 tablet by mouth once daily. Vitamin E external oil 30 mL 0 Sig: Apply 1 application to affected area once daily. umeclidinium-vilanterol (ANORO ELLIPTA) 62.5-25 mcg/actuation inhaler 60 Each 0 Sig: Inhale 1 Inhalation as instructed once daily. Allergies: Nitroglycerin, Omeprazole, Propoxyphene, Acetaminophen, Codeine, and Nabumetone (home) [phone] (cell) Last Visit date: 04/12/2023 Future appointment: 06/18/2023 The patients preferred pharmacy has been captured for this encounter? yes Request is for script(s) to be escript to pharmacy. Dawood Carcamo RN documented in this encounter [facility] 06-10-2023 History of Present illness Narrative TRANSITIONAL CARE MANAGEMENT (TCM) COMMUNITY MONITORING PROGRAM - [facility] Provider Action/FYI: TCM 06/19/[address] Brown Patient currently on 2L of oxygen and has no portable oxygen to bring with her. Patient reviewed medications with home care nurse who came today. Dawood Carcamo RN June 10, 2023 2:13 PM SUMMARY: Pt discharged from [facility] on 06/07/2024. Admitted for: AMS Patient seen Inpatient JULIA Visit? Yes. Patient seen ICARE Program? No. Contact made with patient: Yes Hi my name is Dawood Carcamo RN and I am calling from the [facility] on behalf of your PCP, Antonio Vaughn, DO I understand you were recently in the hospital so I am calling to check in with you to ensure you are feeling well now that you re home. Do you mind if I ask you a few questions related to your hospital stay and well-being Yes Contact with patient post discharge, spoke to patient. Patient identified by name and . Do you feel your health is BETTER, WORSE, or the SAME since leaving the hospital? Better ACTION TAKEN: Patient indicated symptoms are better or same, no action required. Continue outreach. N/A MEDICATIONS: Many patients have questions or concerns about their medications once they are home. Do you have any questions about taking your medications or which medication you should be on? No Do you need any medication refills at this time, including any of the medications you might take only when needed? yes ACTION TAKEN: Patient needs refill(s) - Routed to PCP, indicated the medications and preferred pharmacy in the FYI box. For RNs or Pharmacy completing outreach ONLY, was a medication review completed? No Patient went over medication with home care nurse SOCIAL: We would like to make sure you have what you need so that your basics needs are met - including your personal safety. HEALTH LEADS SCREENING TOOL QUESTIONS: Do you often feel you lack companionship? No Do you ever need help reading or understanding hospital materials? Sometimes, Can call son if need In the last 12 months, have you changed how you take medications to save money? No In the past 12 months, has lack of transportation kept you from medical appointments, work or getting things you need like food, or supplies? No In the last 12 months, did you ever eat less than you felt you should because there wasn't enough money for food? No During the winter, do you anticipate having a problem paying your heating bill? No In the next 2 months, are you worried you might not have stable housing? No Would you like to speak with a social work steam press tender to help give you support for any of these needs? No It can be normal to feel anxious or down during a time like this. Would you like to talk to a mental health professional about how you have been feeling? No ACTION TAKEN: No action taken DISCHARGE INTRUCTIONS: Your discharge instructions / After Visit Summary (AVS) are important in guiding you through the recovery process. Do you have any questions related to your discharge instructions? No Do you have all the necessary equipment and supplies at home? Yes ACTION TAKEN: No action required WRAP AROUND SERVICES: N/A Patient educated on importance of primary care provider follow up visit as well as specialty provider follow up visits as indicated. Inform the patient that if they have any questions or concerns prior to that appointment, to call their Primary Care Provider 's office right away. Primary care provider first education provided. I would like to help you schedule a hospital follow-up virtual or telephone visit with your PCP. ACTION TAKEN: [facility] Primary Care Provider Visit Scheduled: Yes - Appt date: 06/19/[address] Brown Your doctor would like us to remind you of the recommendations regarding the coronavirus (Covid19) outbreak: Avoid public places as much as possible. Avoid close contact (within 6 feet) with others you don't live with, especially if they are sick. Stay home if you are sick. Wash your hands regularly for at least 20 seconds with soap and water. Wear a cloth mask in public places to help reduce community spread. Do not go to your Doctor's office unless instructed to do so. For any non-emergency symptoms, call your Doctor's office to get instructions on how to manage (we might recommend a telephone or virtual visit). For emergency symptoms, proceed to Emergency Department as usual but inform them of cough and fever symptoms DREA if present (or call on the way if possible). documented in this encounter [facility] 06-10-2023 History of Present illness Narrative PRIMARY CARE COORDINATION QUICK NOTE Provider Action/FYI Patient identified by name and date . Noted Dawood Carcamo RN June 10, 2023 1:34 PM Received notification via Careport: Patient discharged from [facility] 06/09/2023 to home with home care (agency name unknown). A discharge summary and medication list has been requested. Ileana Garner RN Patient discharged from [facility] to home with unknown [facility] Agency with the dg of CHF. Fernando Ng RN documented in this encounter [facility] 06-10-2023 Miscellaneous Notes Pt needs TCM questions asked. Was admitted into the hospital. Another message was sent to slick to reach out to patient. Radha Max ----- Message from Linda Phan sent at 06/10/2023 11:26 AM EST ----- [facility]ard[facility]ins[facility]ute/tay/ Barbara Herman/ Wait list,Oxigen PT, H. follow up Subject Line Format: Medicine / Antonio Vaughn DO / [Issue] Select Department Name For Pool Routing Assistance: FAMP AG ACC CFM => AG FAMP ACC CFM APPT CTR TRIAGE POOL [[id number]] = Patient: Ana Lopes Date of : 1945 Primary Care Provider: Antonio Vaughn DO The reason I am contacting the office is: Sooner Appointment - Patient is requesting a sooner appointment - current appointment on 06/20/23 at 2 pm with Barbara Herman and patient is already on the waitlist. Person calling if other than patient: n Best contact number: [phone] Thank you, Linda Phan June 10, 2023 11:26 AM documented in this encounter [facility] 06-07-2023 Miscellaneous Notes Pt was in hospital for 5 days and gets out of rehab on 06/09/23. Needs TCM. Please call on cell # [phone] documented in this encounter [facility] 06-07-2023 History of Present illness Narrative Images from the original note were not included. Connected Care Unit Discharge Summary SNF Connected Care Program [place] [address], [address] [place] [address] CONNECTED CARE DISCHARGE SUMMARY Service Date: 06/08/2023 Admission Date: 05/24/2023 Discharge Date: 06/09/2023 [facility]: [facility] Level of Care: Skilled SNF Attending: Elvin Calderon Connected Care Primary Care Physician:: Antonio Vaughn DO Principal Diagnosis: (I50.32) Chronic heart failure with preserved ejection fraction (HCC) (primary encounter diagnosis) (J96.11) Chronic respiratory failure with hypoxia (HCC) (E11.8) Type 2 diabetes mellitus with complication, without long-term current use of insulin (HCC) (E66.01) Morbid obesity (HCC) (E11.9)Type 2 diabetes mellitus without complication, without long-term current use of insulin (HCC) (G47.33) MARY (obstructive sleep apnea) (J44.9) Chronic obstructive pulmonary disease, unspecified COPD type (HCC) (R53.81) Debility Subacute Course: Ana is a 78 year old female with a pertinent PMH of COPD/asthma with recent initiation of oxygen (3 L NC), restrictive lung disease, pulmonary HTN, MARY (not on CPAP), HFpEF, T2DM, and elevated BMI, who presented to [facility] with complaint of dizziness and right-sided headache concerning for a seizure. Workup for seizure unremarkable. Based on history and physical it was more likely a vasovagal syncope. Patient was stable during inpatient stay with no concerning symptoms. Mild WBC elevation with no clinical signs of infection. PT/OT recommended SNF. Patient was discharged to SNF in stable condition. DC summary from SNF: pt admitted to SNF for rehab and has been able to progress with her therapy she had no new acute concerns or acuites she is now scheduled to dc home with HH. She denies any pain states she needs to have another CPAP machine since her old one broke she is advised to ff with her pcp sleep medicine ok to dc home with HH Tests/Procedures: NONE Transitions of Care Critical Issues: Imaging follow-up: None Lab Monitoring Needed: None Specialists Follow-Up: Yes, pcp Discharge Physical Exam: Physical Exam Constitutional: General: She is not in acute distress. Appearance: She is not ill-appearing. HENT: Head: Normocephalic. Mouth/Throat: Mouth: Mucous membranes are moist. Eyes: Pupils: Pupils are equal, round, and reactive to light. Cardiovascular: Rate and Rhythm: Normal rate and regular rhythm. Pulses: Normal pulses. Heart sounds: Normal heart sounds. Pulmonary: Effort: Pulmonary effort is normal. No respiratory distress. Breath sounds: No wheezing, rhonchi or rales. Abdominal: General: Bowel sounds are normal. There is no distension. Palpations: Abdomen is soft. Tenderness: There is no abdominal tenderness. Musculoskeletal: Cervical back: Neck supple. Right lower leg: No edema. Left lower leg: No edema. Skin: Findings: No bruising, erythema or rash. Neurological: General: No focal deficit present. Mental Status: She is alert and oriented to person, place, and time. Psychiatric: Mood and Affect: Mood normal. Behavior: Behavior normal. Thought Content: Thought content normal. Discharge Condition: Stable Discharge Disposition: Home/Community Discharge Medications: furosemide (LASIX) 20 mg tablet Take 1 tablet by mouth once daily. umeclidinium-vilanterol (ANORO ELLIPTA) 62.5-25 mcg/actuation inhaler Inhale 1 Inhalation as instructed once daily. Vitamin E external oil Apply 1 application to affected area once daily. B6/folic/B12/coffee/phosphatid (NEURIVA PLUS BRAIN PERFORMANCE ORAL) Take by mouth. prednisoLONE acetate (PRED FORTE, ECONOPRED PLUS) 1 % ophthalmic suspension 1 Drop three times a day. fluticasone (FLONASE) 50 mcg/actuation nasal spray Use 1 [place] in each nostril once daily. polyvinyl alcohol (LIQUIFILM TEARS) 1.4 % ophthalmic solution Use 1 Drop in both eyes as needed. albuterol HFA (PROVENTIL HFA, VENTOLIN HFA) 90 mcg/actuation inhaler INHALE 2 PUFFS BY MOUTH EVERY 6 HOURS INSTRUCTED NEEDED aspirin (VALORIE CHEWABLE ASPIRIN) 81 mg chewable tablet Orally atorvastatin (LIPITOR) 80 mg tablet Take 1 tablet by mouth daily at bedtime. levETIRAcetam (KEPPRA) 750 mg tablet Take 1 tablet by mouth two times a day. metFORMIN (GLUCOPHAGE) 1,000 mg tablet Take 1 tablet by mouth two times a day with meals. nystatin (MYCOSTATIN) powder APPLY TOPICALLY TO AFFECTED AREAS TWICE DAILY diclofenac (VOLTAREN) 1 % topical gel Apply 4 g to affected area four times a day as needed (Pain). lancets (XillianTVTOUCH DELICA PLUS LANCET) 30 gauge USE TWICE DAILY TO CHECK BLOOD SUGAR DIRECTED Latex Gloves (LATEX GLOVES, LARGE) misc 1 Units once daily. multivitamin with minerals (VISION/OPTIGEN) tablet Take 1 tablet by mouth once daily. alcohol swabs (ALCOHOL PREP PADS) APPLY TOPICALLY TO AFFECTED AREA(S) EVERY DAY DIRECTED blood sugar diagnostic (ONETOUCH VERIO TEST STRIPS) test strip 1 Strip twice daily. Use as instructed cetirizine (ZYRTEC) 10 mg tablet Take 1 tablet by mouth once daily. Diaper,Brief, Adult,Disposable (PREVAIL UNDERWEAR) 1 Units once daily. Incontinence Pad, Liner, Disp pads 1 Pad as needed. tetywbm-fskddpcfk-kmnjmtl D3 (OYSTER SHELL CALCIUM-VITAMIN D) 500 mg-5 mcg (200 unit) per tablet TAKE 1 TABLET BY MOUTH EVERY MORNING Functional Status: Modified independent + [facility] Scheduled Future Appointments: Future Appointments Date Time Provider Department Center 06/20/2023 2:00 PM Barbara Herman DO [facility] [place] [facility] 07/16/2023 1:30 PM [facility] 07/30/2023 10:00 AM Ese Marmolejo DPM [id number] Prior to discharge, staff to schedule follow up appointment for patient to see PCP within 7-10 days of discharge. I spent 31 minutes in the visit, with more than 50% of the total lvlv-ev-trud time of the visit in counseling / coordination of care. Sharyn Andrade APRN.CNP documented in this encounter [facility] 05-29-2023 History of Present illness Narrative Images from the original note were not included. Connected Care Unit Progress Note Patient Name: Ana Lopes Patient Facility: [facility] Admit Date 05/24/2023 Level of Care: Skilled SNF Attending: Nelson Calderon D.O. Service Date: 05/29/2023 Code Status: Full Code Chief Complaint: Evaluation regarding debility and rehabilitation progress. ASSESSMENT AND PLAN (I50.32) Chronic heart failure with preserved ejection fraction (HCC) - EF=63% when checked 05/15/2023 - Continue on Furosemide - On chronic oxygen; no chest pain or shortness of breath; BLE edema noted (J96.11) Chronic respiratory failure with hypoxia (HCC) - On 2L oxygen; 2-3L baseline - Continue on Anoro Ellipta and Albuterol - No shortness of breath or chest tightness (E11.9) Type 2 diabetes mellitus without complication, without long-term current use of insulin (HCC) - Continue on Metformin - Blood Glucose Range: 149 - 201 (R53.81) Debility (primary encounter diagnosis) (E66.01) Morbid obesity (HCC) - Certify therapies - Maintain high falls risk precautions - pt/staff verbalize understanding validated via teach back - Monitor safety awareness Appointments for Next 60 Days Date Time Provider Location Dept Phone 07/16/2023 1:30 PM [facility] [phone] HPI: (Per Dr. Reis) Ana is a 78 year old female with a pertinent PMH of COPD/asthma with recent initiation of oxygen (3 L NC), restrictive lung disease, pulmonary HTN, MARY (not on CPAP), HFpEF, T2DM, and elevated BMI, who presented to [facility] with complaint of dizziness and right-sided headache concerning for a seizure. Workup for seizure unremarkable. Based on history and physical it was more likely a vasovagal syncope. Patient was stable during inpatient stay with no concerning symptoms. Mild WBC elevation with no clinical signs of infection. PT/OT recommended SNF. Patient was discharged to SNF in stable condition. 05/29/2023 Update Patient visualized in bed she reports no new concerns she is denies pain and discomfort reports working and tolerating therapy nursing has no concerns to report cont to monitor PAST MEDICAL HISTORY Diagnosis Date Diabetes (HCC) Hypercholesteremia Nephrolithiasis 10/14/2020 status post perc nephrolithotomy Rheumatoid arthritis (HCC) SUBJECTIVE: Review of Systems Constitutional: Negative for appetite change, chills, fatigue and fever. HENT: Negative for congestion and trouble swallowing. Eyes: Negative for visual disturbance. Respiratory: Negative for apnea, chest tightness, shortness of breath and wheezing. Cardiovascular: Negative for chest pain, palpitations and leg swelling. Gastrointestinal: Negative for abdominal distention, abdominal pain, constipation, diarrhea, nausea and vomiting. Endocrine: Negative for polydipsia, polyphagia and polyuria. Genitourinary: Negative for difficulty urinating, dysuria and frequency. Musculoskeletal: Positive for gait problem. Neurological: Positive for weakness. Psychiatric/Behavioral: Negative for agitation, behavioral problems and confusion. No reports of falls/injuries, changes in cognition/behaviors, or any uncontrolled pain exacerbations. Medications: Medications listed in [facility] during SNF admission may not be current. Refer to facility record. Patient records, current medications, most recent labs, family/social history (unchanged) Reviewed. Refer to facility records. OBJECTIVE: Vital Signs: BP 109/68 Pulse 79 Temp 36.1 C (96.9 F) Resp 18 SpO2 98% Physical Exam: Physical Exam Constitutional: General: She is not in acute distress. Appearance: She is not ill-appearing. HENT: Head: Normocephalic. Mouth/Throat: Mouth: Mucous membranes are moist. Eyes: Pupils: Pupils are equal, round, and reactive to light. Cardiovascular: Rate and Rhythm: Normal rate and regular rhythm. Pulses: Normal pulses. Heart sounds: Normal heart sounds. Pulmonary: Effort: Pulmonary effort is normal. No respiratory distress. Breath sounds: No wheezing, rhonchi or rales. Abdominal: General: Bowel sounds are normal. There is no distension. Palpations: Abdomen is soft. Tenderness: There is no abdominal tenderness. Musculoskeletal: Cervical back: Neck supple. Right lower leg: No edema. Left lower leg: No edema. Skin: Findings: No bruising, erythema or rash. Neurological: General: No focal deficit present. Mental Status: She is alert and oriented to person, place, and time. Motor: Weakness present. Gait: Gait abnormal. Psychiatric: Mood and Affect: Mood normal. Behavior: Behavior normal. Thought Content: Thought content normal. POC discussed with appropriate parties and nursing staff. Previous progress note was copied forward updated where appropriate and reflective of current medical decision making today 05/29/23 Electronically signed by Sharyn Andrade APRN.BOXING AND PRESSING SUPERVISOR documented in this encounter [facility] 05-28-2023 History of Present illness Narrative Images from the original note were not included. Connected Care Unit Progress Note Patient Name: Ana Lopes Patient Facility: [facility] Admit Date 05/24/2023 Level of Care: Skilled SNF Attending: Nelson Calderon D.O. Service Date: 05/28/2023 Code Status: Full Code Chief Complaint: Evaluation regarding debility and rehabilitation progress. ASSESSMENT AND PLAN (R53.81) Debility (primary encounter diagnosis) (E66.01) Morbid obesity (HCC) - Certify therapies - Maintain high falls risk precautions - pt/staff verbalize understanding validated via teach back - Monitor safety awareness (I50.32) Chronic heart failure with preserved ejection fraction (HCC) - EF=63% when checked 05/15/2023 - Continue on Furosemide - On chronic oxygen; no chest pain or shortness of breath; BLE edema noted (J96.11) Chronic respiratory failure with hypoxia (HCC) - On 2L oxygen; 2-3L baseline - Continue on Anoro Ellipta and Albuterol - No shortness of breath or chest tightness (E11.9) Type 2 diabetes mellitus without complication, without long-term current use of insulin (HCC) - Continue on Metformin - Blood Glucose Range: 149 - 201 (G40.909) Seizure disorder (HCC) - Continue on Levetiracetam (M25.511, G89.29) Chronic right shoulder pain - States she has chronic pain that was worsened with lying in the cot while in the ER - Lidocaine Patch Ordered Appointments for Next 60 Days Date Time Provider Location Dept Phone 07/16/2023 1:30 PM [facility] [phone] HPI: (Per Dr. Reis) Ana is a 78 year old female with a pertinent PMH of COPD/asthma with recent initiation of oxygen (3 L NC), restrictive lung disease, pulmonary HTN, MARY (not on CPAP), HFpEF, T2DM, and elevated BMI, who presented to [facility] with complaint of dizziness and right-sided headache concerning for a seizure. Workup for seizure unremarkable. Based on history and physical it was more likely a vasovagal syncope. Patient was stable during inpatient stay with no concerning symptoms. Mild WBC elevation with no clinical signs of infection. PT/OT recommended SNF. Patient was discharged to SNF in stable condition. 05/28/2023 Update Patient visualized sitting up on the side of her bed, working with PT/OT. She endorses a lot of frustration over her current situation, stating she needs a CPAP and that she's had a lot of pain in her shoulder and back after being in a cot in the ER. PAST MEDICAL HISTORY Diagnosis Date Diabetes (HCC) Hypercholesteremia Nephrolithiasis 10/14/2020 status post perc nephrolithotomy Rheumatoid arthritis (HCC) SUBJECTIVE: Review of Systems Constitutional: Positive for activity change and fatigue. Negative for appetite change, chills, diaphoresis and fever. HENT: Negative. Eyes: Negative. Respiratory: Negative for apnea, chest tightness and shortness of breath. Cardiovascular: Negative for chest pain and leg swelling. Gastrointestinal: Negative for abdominal pain. Endocrine: Negative. Genitourinary: Negative for difficulty urinating and dysuria. Musculoskeletal: Positive for arthralgias, back pain and gait problem. Skin: Negative for color change. Allergic/Immunologic: Negative. Neurological: Positive for syncope and weakness. Negative for dizziness and light-headedness. Hematological: Negative. Psychiatric/Behavioral: Positive for dysphoric mood. No reports of falls/injuries, changes in cognition/behaviors, or any uncontrolled pain exacerbations. Medications: Medications listed in Epic during SNF admission may not be current. Refer to facility record. Patient records, current medications, most recent labs, family/social history (unchanged) Reviewed. Refer to facility records. OBJECTIVE: Vital Signs: BP 144/68 Pulse 66 Temp 36.2 C (97.2 F) Resp 18 Ht 157.5 cm (5' 2") Wt 109.1 kg (240 lb 9.6 oz) SpO2 99% BMI 44.01 kg/m Physical Exam: Physical Exam Vitals reviewed. Constitutional: General: She is not in acute distress. Appearance: She is not ill-appearing or toxic-appearing. HENT: Head: Normocephalic. Right Ear: External ear normal. Left Ear: External ear normal. Nose: Nose normal. Mouth/Throat: Mouth: Mucous membranes are moist. Pharynx: Oropharynx is clear. Eyes: Extraocular Movements: Extraocular movements intact. Pupils: Pupils are equal, round, and reactive to light. Cardiovascular: Rate and Rhythm: Normal rate and regular rhythm. Pulmonary: Effort: Pulmonary effort is normal. Breath sounds: Normal breath sounds. Comments: On 2L Oxygen Via Nasal Cannula Abdominal: General: Abdomen is flat. Bowel sounds are normal. Palpations: Abdomen is soft. Musculoskeletal: General: Normal range of motion. Right shoulder: Tenderness present. Cervical back: Normal range of motion. Thoracic back: Tenderness present. Lumbar back: Tenderness present. Right lower leg: Edema present. Left lower leg: Edema present. Skin: General: Skin is warm and dry. Neurological: Mental Status: She is alert and oriented to person, place, and time. Mental status is at baseline. Motor: Weakness present. Gait: Gait abnormal. Psychiatric: Mood and Affect: Mood is depressed. Affect is angry. Speech: Speech normal. POC discussed with appropriate parties and nursing staff. Electronically signed by Giorgio López APRN.BOXING AND PRESSING SUPERVISOR documented in this encounter [facility] 05-27-2023 History of Present illness Narrative TRANSITION CARE MANAGEMENT (TCM) DISCHARGE TO POST ACUTE FACILITY POST ACUTE TRANSFER SUMMARY: -Pt discharged from [facility] on 05/24/2023. -Post Acute Facility Admitted to [facility] -Admitted for: Syncope/Collapse Office PCC will follow at discharge Ileana Garner RN May 27, 2023 7:12 AM documented in this encounter [facility] 05-21-2023 History of Present illness Narrative [facility] Transitional Care Management (TCM) Inpatient Patient Visit/Outreach Provider Action/FYI Stated she doesn't jacquelin men. Has ION MAURER Declined appointment. Patient Admitted To [facility] on 05/1323 Patient admitted for PNA Contact Made with Patient at bedside Yes, room 4405 Patient identified by name and date of . Others Present at bedside No ,name relationship to patient , permission to include in bedside discussion NA Patient introduced to the transitional care management team; explained our purpose, mission, and provided hours of operation, M-F 8-4 PM, excluding holidays. We provided them with resources and our contact information. Resources: Primary Care Provider First Card, Transitional Care Management Card, eClarity Flyer, ERASTO RN business Card, yes Patient educated on importance of primary care provider follow up visit as well as specialty provider follow up visits as indicated. Scheduled PCP follow up appointment Declined Date , Time , Does patient have any concerns or barriers to returning home? No Health leads screening tool questions: Do you often feel you lack companionship? No Do you ever need help reading or understanding hospital materials? No In the last 12 months, have you changed how you take medications to save money? No In the past 12 months, has lack of transportation kept you from medical appointments, work, or getting things you need like food, or supplies? No In the last 12 months, did you ever eat less than you felt you should because there wasn't enough money for food? No During the winter, do you anticipate having a problem paying your heating bill? No In the next 2 months, are you worried you might not have stable housing? No If needs identified: Would you like to receive assistance with any of these needs after discharge? No Resources/Referrals None Advanced Directives: Already in chart Living Will: Already in chart Meds to bed initiated No Educated patient on post discharge expectations, contingency management, and post-discharge programs available to them. Encouraged patient to refer to and read the hospital discharge summary again once they are home. HRTIC NA If Yes, Confirm demographics, where patient will reside at discharge. TCM RN to do referral upon discharge. We have your contact number as 330 , is this the best number to contact you? Yes Address: [address] [place] [address] , is this where you will be staying after discharge? Yes Do you give us permission to speak to anyone else if you are unavailable to speak to us? Yes name natalie Acevedo son and contact number [phone] Fernando Ng RN May 21, 2023 3:21 PM documented in this encounter [facility] 05-21-2023 History of Present illness Narrative PRIMARY CARE COORDINATION QUICK NOTE Provider Action/FYI Patient identified by name and date . Patient readmitted Dawood Carcamo RN May 21, 2023 8:16 AM TCM Home Visit Referral Source of Stratification: TCM [facility] Admission Status: Discharged Readmission Risk Score: 24 RUDI Score: 12 Patient meets program referral criteria: No Patient does not qualify for High Risk TCM Home Visit program due to: Discharged home, does not meet program criteria Dawood Carcamo RN May 20, 2023 11:27 AM TRANSITIONAL CARE MANAGEMENT (TCM) COMMUNITY MONITORING PROGRAM - JOE Provider Action/FYI: Patient is on her way to ER per her caregiver Nelson. Dawood Carcamo RN May 20, 2023 11:39 AM SUMMARY: Pt discharged from [facility] on 05/17/2023. Admitted for: Pulmonary Edema Patient seen Inpatient JULIA Visit? Yes. Patient seen ICARE Program? No. Contact made with patient: No - next outreach attempt will be on next day Outreach ended documented in this encounter [facility] 05-20-2023 Miscellaneous Notes Patient had a seizure per TREE TRIMMING SUPERVISOR Nelson Wan LPN. Active seizure today. While on phone patient states she "feels like hell" and "doesn't know how she got here". Due to change in mental status and active seizures this nurse recommends calling squad to have patient evaluated at ER. Understanding verbalized. documented in this encounter [facility] 05-14-2023 History of Past i llness Narrative Problem Noted Date Diagnosed Date Resolved Date Acute pulmonary edema 05/14/20232022 Pneumonia 03/05/2023 03/05/2023 Asymptomatic bacteriuria 03/05/202304/2023 Nephrolithiasis 10/14/2020 03/29/2023 Overview: status post perc nephrolithotomy Pseudophakia of left eye 09/16/2020 Hypertension 02/06/2018 03/09/2023 Seizure disorder 02/06/2018 03/09/2023 Last Assessment & Plan: -Keppra 1000mg BID -D/C Topiramate -D/C cEEG -MRI Brain when able - Okay to extubate from our standpoint. documented as of this encounter (statuses as of 05/20/2023) [facility] History of Past illness Narrative* Problem Noted Date Diagnosed Date Resolved Date Acute pulmonary edema 05/14/20232022 Pneumonia 03/05/2023 03/05/2023 Asymptomatic bacteriuria 03/05/202304/2023 Nephrolithiasis 10/14/2020 03/29/2023 Overview: status post perc nephrolithotomy Pseudophakia of left eye 09/16/2020 Hypertension 02/06/2018 03/09/2023 Seizure disorder 02/06/2018 03/09/2023 Last Assessment & Plan: -Keppra 1000mg BID -D/C Topiramate -D/C cEEG -MRI Brain when able - Okay to extubate from our standpoint. documented as of this encounter (statuses as of 05/21/2023) [facility] History of Past illness Narrative* Problem Noted Date Diagnosed Date Resolved Date Acute pulmonary edema 05/14/20232022 Pneumonia 03/05/2023 03/05/2023 Asymptomatic bacteriuria 03/05/202304/2023 Nephrolithiasis 10/14/2020 03/29/2023 Overview: status post perc nephrolithotomy Pseudophakia of left eye 09/16/2020 Hypertension 02/06/2018 03/09/2023 Seizure disorder 02/06/2018 03/09/2023 Last Assessment & Plan: -Keppra 1000mg BID -D/C Topiramate -D/C cEEG -MRI Brain when able - Okay to extubate from our standpoint. documented as of this encounter (statuses as of 05/21/2023) [facility] History of Past illness Narrative* Problem Noted Date Diagnosed Date Resolved Date Acute pulmonary edema 05/14/20232022 Pneumonia 03/05/2023 03/05/2023 Asymptomatic bacteriuria 03/05/202304/2023 Nephrolithiasis 10/14/2020 03/29/2023 Overview: status post perc nephrolithotomy Pseudophakia of left eye 09/16/2020 Hypertension 02/06/2018 03/09/2023 Seizure disorder 02/06/2018 03/09/2023 Last Assessment & Plan: -Keppra 1000mg BID -D/C Topiramate -D/C cEEG -MRI Brain when able - Okay to extubate from our standpoint. documented as of this encounter (statuses as of 05/22/2023) [facility] History of Past illness Narrative* Problem Noted Date Diagnosed Date Resolved Date Acute pulmonary edema 05/14/20232022 Pneumonia 03/05/2023 03/05/2023 Asymptomatic bacteriuria 03/05/202304/2023 Nephrolithiasis 10/14/2020 03/29/2023 Overview: status post perc nephrolithotomy Pseudophakia of left eye 09/16/2020 Hypertension 02/06/2018 03/09/2023 Seizure disorder 02/06/2018 03/09/2023 Last Assessment & Plan: -Keppra 1000mg BID -D/C Topiramate -D/C cEEG -MRI Brain when able - Okay to extubate from our standpoint. documented as of this encounter (statuses as of 05/27/2023) [facility] History of Past illness Narrative* Problem Noted Date Diagnosed Date Resolved Date Acute pulmonary edema 05/14/20232022 Pneumonia 03/05/2023 03/05/2023 Asymptomatic bacteriuria 03/05/202304/2023 Nephrolithiasis 10/14/2020 03/29/2023 Overview: status post perc nephrolithotomy Pseudophakia of left eye 09/16/2020 Hypertension 02/06/2018 03/09/2023 Seizure disorder 02/06/2018 03/09/2023 Last Assessment & Plan: -Keppra 1000mg BID -D/C Topiramate -D/C cEEG -MRI Brain when able - Okay to extubate from our standpoint. documented as of this encounter (statuses as of 05/29/2023) [facility] History of Past illness Narrative* Problem Noted Date Diagnosed Date Resolved Date Acute pulmonary edema 05/14/20232022 Pneumonia 03/05/2023 03/05/2023 Asymptomatic bacteriuria 03/05/202304/2023 Nephrolithiasis 10/14/2020 03/29/2023 Overview: status post perc nephrolithotomy Pseudophakia of left eye 09/16/2020 Hypertension 02/06/2018 03/09/2023 Seizure disorder 02/06/2018 03/09/2023 Last Assessment & Plan: -Keppra 1000mg BID -D/C Topiramate -D/C cEEG -MRI Brain when able - Okay to extubate from our standpoint. documented as of this encounter (statuses as of 05/30/2023) [facility] History of Past illness Narrative* Problem Noted Date Diagnosed Date Resolved Date Acute pulmonary edema 05/14/20232022 Pneumonia 03/05/2023 03/05/2023 Asymptomatic bacteriuria 03/05/202304/2023 Nephrolithiasis 10/14/2020 03/29/2023 Overview: status post perc nephrolithotomy Pseudophakia of left eye 09/16/2020 Hypertension 02/06/2018 03/09/2023 Seizure disorder 02/06/2018 03/09/2023 Last Assessment & Plan: -Keppra 1000mg BID -D/C Topiramate -D/C cEEG -MRI Brain when able - Okay to extubate from our standpoint. documented as of this encounter (statuses as of 06/07/2023) [facility] History of Past illness Narrative* Problem Noted Date Diagnosed Date Resolved Date Acute pulmonary edema 05/14/20232022 Pneumonia 03/05/2023 03/05/2023 Asymptomatic bacteriuria 03/05/202304/2023 Nephrolithiasis 10/14/2020 03/29/2023 Overview: status post perc nephrolithotomy Pseudophakia of left eye 09/16/2020 Hypertension 02/06/2018 03/09/2023 Seizure disorder 02/06/2018 03/09/2023 Last Assessment & Plan: -Keppra 1000mg BID -D/C Topiramate -D/C cEEG -MRI Brain when able - Okay to extubate from our standpoint. documented as of this encounter (statuses as of 06/08/2023) [facility] History of Past illness Narrative* Problem Noted Date Diagnosed Date Resolved Date Acute pulmonary edema 05/14/20232022 Pneumonia 03/05/2023 03/05/2023 Asymptomatic bacteriuria 03/05/202304/2023 Nephrolithiasis 10/14/2020 03/29/2023 Overview: status post perc nephrolithotomy Pseudophakia of left eye 09/16/2020 Hypertension 02/06/2018 03/09/2023 Seizure disorder 02/06/2018 03/09/2023 Last Assessment & Plan: -Keppra 1000mg BID -D/C Topiramate -D/C cEEG -MRI Brain when able - Okay to extubate from our standpoint. documented as of this encounter (statuses as of 06/10/2023) [facility] History of Past illness Narrative* Problem Noted Date Diagnosed Date Resolved Date Acute pulmonary edema 05/14/20232022 Pneumonia 03/05/2023 03/05/2023 Asymptomatic bacteriuria 03/05/202304/2023 Nephrolithiasis 10/14/2020 03/29/2023 Overview: status post perc nephrolithotomy Pseudophakia of left eye 09/16/2020 Hypertension 02/06/2018 03/09/2023 Seizure disorder 02/06/2018 03/09/2023 Last Assessment & Plan: -Keppra 1000mg BID -D/C Topiramate -D/C cEEG -MRI Brain when able - Okay to extubate from our standpoint. documented as of this encounter (statuses as of 06/10/2023) [facility] History of Past illness Narrative* Problem Noted Date Diagnosed Date Resolved Date Acute pulmonary edema 05/14/20232022 Pneumonia 03/05/2023 03/05/2023 Asymptomatic bacteriuria 03/05/202304/2023 Nephrolithiasis 10/14/2020 03/29/2023 Overview: status post perc nephrolithotomy Pseudophakia of left eye 09/16/2020 Hypertension 02/06/2018 03/09/2023 Seizure disorder 02/06/2018 03/09/2023 Last Assessment & Plan: -Keppra 1000mg BID -D/C Topiramate -D/C cEEG -MRI Brain when able - Okay to extubate from our standpoint. documented as of this encounter (statuses as of 06/11/2023) [facility]11-07-2023 History of Past illness Narrative* Problem Noted Date Diagnosed Date Resolved Date Acute pulmonary edema 05/14/20232022 Pneumonia 03/05/2023 03/05/2023 Asymptomatic bacteriuria 03/05/202304/2023 Nephrolithiasis 10/14/2020 03/29/2023 Overview: status post perc nephrolithotomy Pseudophakia of left eye 09/16/2020 Hypertension 02/06/2018 03/09/2023 Seizure disorder 02/06/2018 03/09/2023 Last Assessment & Plan: -Keppra 1000mg BID -D/C Topiramate -D/C cEEG -MRI Brain when able - Okay to extubate from our standpoint. documented as of this encounter (statuses as of 06/11/2023) [facility] History of Past illness Narrative* Problem Noted Date Diagnosed Date Resolved Date Acute pulmonary edema 05/14/20232022 Pneumonia 03/05/2023 03/05/2023 Asymptomatic bacteriuria 03/05/202304/2023 Nephrolithiasis 10/14/2020 03/29/2023 Overview: status post perc nephrolithotomy Pseudophakia of left eye 09/16/2020 Hypertension 02/06/2018 03/09/2023 Seizure disorder 02/06/2018 03/09/2023 Last Assessment & Plan: -Keppra 1000mg BID -D/C Topiramate -D/C cEEG -MRI Brain when able - Okay to extubate from our standpoint. documented as of this encounter (statuses as of 06/17/2023) [facility] History of Past illness Narrative* Problem Noted Date Diagnosed Date Resolved Date Acute pulmonary edema 05/14/20232022 Pneumonia 03/05/2023 03/05/2023 Asymptomatic bacteriuria 03/05/202304/2023 Nephrolithiasis 10/14/2020 03/29/2023 Overview: status post perc nephrolithotomy Pseudophakia of left eye 09/16/2020 Hypertension 02/06/2018 03/09/2023 Seizure disorder 02/06/2018 03/09/2023 Last Assessment & Plan: -Keppra 1000mg BID -D/C Topiramate -D/C cEEG -MRI Brain when able - Okay to extubate from our standpoint. documented as of this encounter (statuses as of 06/25/2023) [facility] History of Past illness Narrative* Problem Noted Date Diagnosed Date Resolved Date Acute pulmonary edema 05/14/20232022 Pneumonia 03/05/2023 03/05/2023 Asymptomatic bacteriuria 03/05/202304/2023 Nephrolithiasis 10/14/2020 03/29/2023 Overview: status post perc nephrolithotomy Pseudophakia of left eye 09/16/2020 Hypertension 02/06/2018 03/09/2023 Seizure disorder 02/06/2018 03/09/2023 Last Assessment & Plan: -Keppra 1000mg BID -D/C Topiramate -D/C cEEG -MRI Brain when able - Okay to extubate from our standpoint. documented as of this encounter (statuses as of 08/31/2023) [facility] History of Past illness Narrative* Problem Noted Date Diagnosed Date Resolved Date Acute pulmonary edema 05/14/20232022 Pneumonia 03/05/2023 03/05/2023 Asymptomatic bacteriuria 03/05/202304/2023 Nephrolithiasis 10/14/2020 03/29/2023 Overview: status post perc nephrolithotomy Pseudophakia of left eye 09/16/2020 Hypertension 02/06/2018 03/09/2023 Seizure disorder 02/06/2018 03/09/2023 Last Assessment & Plan: -Keppra 1000mg BID -D/C Topiramate -D/C cEEG -MRI Brain when able - Okay to extubate from our standpoint. documented as of this encounter (statuses as of 09/12/2023) [facility] History of Past illness Narrative* Problem Noted Date Diagnosed Date Resolved Date Acute pulmonary edema 05/14/20232022 Pneumonia 03/05/2023 03/05/2023 Asymptomatic bacteriuria 03/05/202304/2023 Nephrolithiasis 10/14/2020 03/29/2023 Overview: status post perc nephrolithotomy Pseudophakia of left eye 09/16/2020 Hypertension 02/06/2018 03/09/2023 Seizure disorder 02/06/2018 03/09/2023 Last Assessment & Plan: -Keppra 1000mg BID -D/C Topiramate -D/C cEEG -MRI Brain when able - Okay to extubate from our standpoint. documented as of this encounter (statuses as of 10/07/2023) [facility] History of Past illness Narrative* Problem Noted Date Diagnosed Date Resolved Date Acute pulmonary edema 05/14/20232022 Pneumonia 03/05/2023 03/05/2023 Asymptomatic bacteriuria 03/05/202304/2023 Nephrolithiasis 10/14/2020 03/29/2023 Overview: status post perc nephrolithotomy Pseudophakia of left eye 09/16/2020 Hypertension 02/06/2018 03/09/2023 Seizure disorder 02/06/2018 03/09/2023 Last Assessment & Plan: -Keppra 1000mg BID -D/C Topiramate -D/C cEEG -MRI Brain when able - Okay to extubate from our standpoint. documented as of this encounter (statuses as of 10/09/2023) [facility] History of Past illness Narrative* Problem Noted Date Diagnosed Date Resolved Date Acute pulmonary edema 05/14/20232022 Pneumonia 03/05/2023 03/05/2023 Asymptomatic bacteriuria 03/05/202304/2023 Nephrolithiasis 10/14/2020 03/29/2023 Overview: status post perc nephrolithotomy Pseudophakia of left eye 09/16/2020 Hypertension 02/06/2018 03/09/2023 Seizure disorder 02/06/2018 03/09/2023 Last Assessment & Plan: -Keppra 1000mg BID -D/C Topiramate -D/C cEEG -MRI Brain when able - Okay to extubate from our standpoint. documented as of this encounter (statuses as of 10/10/2023) [facility] History of Past illness Narrative* Problem Noted Date Diagnosed Date Resolved Date Acute pulmonary edema 05/14/20232022 Pneumonia 03/05/2023 03/05/2023 Asymptomatic bacteriuria 03/05/202304/2023 Nephrolithiasis 10/14/2020 03/29/2023 Overview: status post perc nephrolithotomy Pseudophakia of left eye 09/16/2020 Hypertension 02/06/2018 03/09/2023 Seizure disorder 02/06/2018 03/09/2023 Last Assessment & Plan: -Keppra 1000mg BID -D/C Topiramate -D/C cEEG -MRI Brain when able - Okay to extubate from our standpoint. documented as of this encounter (statuses as of 10/11/2023) [facility] History of Past illness Narrative* Problem Noted Date Diagnosed Date Resolved Date Acute pulmonary edema 05/14/20232022 Pneumonia 03/05/2023 03/05/2023 Asymptomatic bacteriuria 03/05/202304/2023 Nephrolithiasis 10/14/2020 03/29/2023 Overview: status post perc nephrolithotomy Pseudophakia of left eye 09/16/2020 Hypertension 02/06/2018 03/09/2023 Seizure disorder 02/06/2018 03/09/2023 Last Assessment & Plan: -Keppra 1000mg BID -D/C Topiramate -D/C cEEG -MRI Brain when able - Okay to extubate from our standpoint. documented as of this encounter (statuses as of 10/16/2023) [facility] History of Past illness Narrative* Problem Noted Date Diagnosed Date Resolved Date Acute pulmonary edema 05/14/20232022 Pneumonia 03/05/2023 03/05/2023 Asymptomatic bacteriuria 03/05/202304/2023 Nephrolithiasis 10/14/2020 03/29/2023 Overview: status post perc nephrolithotomy Pseudophakia of left eye 09/16/2020 Hypertension 02/06/2018 03/09/2023 Seizure disorder 02/06/2018 03/09/2023 Last Assessment & Plan: -Keppra 1000mg BID -D/C Topiramate -D/C cEEG -MRI Brain when able - Okay to extubate from our standpoint. documented as of this encounter (statuses as of 10/18/2023) [facility] History of Past illness Narrative* Problem Noted Date Diagnosed Date Resolved Date Acute pulmonary edema 05/14/20232022 Pneumonia 03/05/2023 03/05/2023 Asymptomatic bacteriuria 03/05/202304/2023 Infiltrate of upper lobe of right lung present on imaging study 12/23/2020 10/19/2023 Nephrolithiasis 10/14/2020 03/29/2023 Overview: status post perc nephrolithotomy Pseudophakia of left eye 09/16/2020 Hypertension 02/06/2018 03/09/2023 documented as of this encounter (statuses as of 10/22/2023) [facility] History of Past illness Narrative* Problem Noted Date Diagnosed Date Resolved Date Acute pulmonary edema 05/14/20232022 Pneumonia 03/05/2023 03/05/2023 Asymptomatic bacteriuria 03/05/202304/2023 Infiltrate of upper lobe of right lung present on imaging study 12/23/2020 10/19/2023 Nephrolithiasis 10/14/2020 03/29/2023 Overview: status post perc nephrolithotomy Pseudophakia of left eye 09/16/2020 Hypertension 02/06/2018 03/09/2023 documented as of this encounter (statuses as of 10/23/2023) [facility] History of Past illness Narrative* Problem Noted Date Diagnosed Date Resolved Date Acute pulmonary edema 05/14/20232022 Pneumonia 03/05/2023 03/05/2023 Asymptomatic bacteriuria 03/05/202304/2023 Infiltrate of upper lobe of right lung present on imaging study 12/23/2020 10/19/2023 Nephrolithiasis 10/14/2020 03/29/2023 Overview: status post perc nephrolithotomy Pseudophakia of left eye 09/16/2020 Hypertension 02/06/2018 03/09/2023 documented as of this encounter (statuses as of 10/23/2023) [facility] History of Past illness Narrative* Problem Noted Date Diagnosed Date Resolved Date Acute pulmonary edema 05/14/20232022 Pneumonia 03/05/2023 03/05/2023 Asymptomatic bacteriuria 03/05/202304/2023 Infiltrate of upper lobe of right lung present on imaging study 12/23/2020 10/19/2023 Nephrolithiasis 10/14/2020 03/29/2023 Overview: status post perc nephrolithotomy Pseudophakia of left eye 09/16/2020 Hypertension 02/06/2018 03/09/2023 documented as of this encounter (statuses as of 10/27/2023) [facility]11-03-2023 Miscellaneous Notes* Telephone Encounter - Barbara Herman DO - 05/10/2023 4:29 PM EDT Just spoke to patient over the phone. Stated that when her nurse came over earlier in the day, her O2 sat was 87%. Did not want to use oxygen. Said her chest pain and SOB has resolved after taking a nap. I advised her to go visit the ER due to her oxygen saturation and chest pain, but she declined.Strongly recommended to her to visit the ER if her chest pain returns/persists or if her shortness of breath worsens. Stated that she will call us on Saturday to schedule an appointment. * Telephone Encounter - Betzaida Sanders LPN - 05/10/2023 4:23 PM EDT Pt going to ER * Telephone Encounter - Chanel Hidalgo LPN - 05/10/2023 10:43 AM EDT Pt called in and reported Chest pain on left side Sob Cough Chest pain began Last week with coughing hard No radiation Comes, goes Pain level at time of coughing is a 5 Pt reports relief comes when she is Relaxing, and can stop coughing Pt reports using Cough medicine (otc) breathing treatment, Vicks, nasal spray Please advise documented in this encounterUniversity Hospitals [facility]11-[facility]-2023 Miscellaneous Notes* Telephone Encounter - Olga Saunders - 05/10/2023 11:29 AM EDT Spoke with patient and appointment was made Olga Reddy * Telephone Encounter - Olga Saunders - 05/10/2023 11:29 AM EDT ----- Message from Marivel Samson sent at 05/10/2023 10:58 AM EDT ----- Regarding: Orthopedics/Danuta Foot: Diabetic Foot Care/Reschedule Appointment For Later Time Contact: Orthopedics/[facility]: Diabetic Foot Care/Reschedule Appointment For Later Time Patient has been identified by name and Date of (Y/N): y Patient: Ana Lopes Date of : 1945 Previous Provider Seen: Dr Marmolejo Body Part(s) Identified: b/l feet Diagnosis/Reason For Visit: needs to reschedule 06/04/23 appt w/ Dr Marmolejo for DFC to a later time, preferable after 11:00 am Reason for the call/escalation: per sched tool If reason for call/escalation is discharge from ED/ER or Hospital, which facility was the patient seen at: n/a Was an appointment scheduled (Y/N): n Person calling if other than patient: n/a Return call to if other than patient: n/a Best contact number: [phone] Thank you, Marivel Samson May 10, 2023 10:59 AM documented in this encounterUniversity Hospitals [facility]10-27-2023 Miscellaneous Notes* Telephone Encounter - Olga Saunders - 05/03/2023 3:05 PM EDT Spoke with patient and appointment was made Olga Reddy * Telephone Encounter - Olga Saunders - 05/03/2023 1:20 PM EDT ----- Message from Coretta Hoyos sent at 05/03/2023 12:01 PM EDT ----- Regarding: Orthopedics / [facility]: Diabetic Foot Care / Unable To Schedule Dx Subject Line Format: Orthopedics / [Provider Name or "Open & Body Part"] / [Issue] Patient has been identified by name and Date of (Y/N): Yes Patient: Ana Lopes Date of : 1945 Previous Provider Seen: Ese Marmolejo DPM Body Part(s) Identified: bi feet Diagnosis/Reason For Visit: Diabetic Foot Care Reason for the call/escalation:The pt would like to make an appt with for Diabetic foot care.I was not able to make the appt due to the questionnaire denial. Please be sure to follow up with the pt on this matter. If reason for call/escalation is discharge from ED/ER or Hospital, which facility was the patient seen at: na Was an appointment scheduled (Y/N): no Person calling if other than patient: pt Return call to if other than patient: pt Best contact number: [phone] / [phone] Thank you, Coretta Hoyos May 03, 2023 12:01 PM documented in this encounterUniversity Hospitals [facility]10-25-2023 Miscellaneous Notes* Telephone Encounter - Jeannie Childs - 05/01/2023 3:03 PM EDT Please review and complete. Will be placed in your temp file.Thank you documented in this encounterUniversity Hospitals [facility] Center10-19-2023 History of Present illness Narrative* Dawood Carcamo RN - 04/25/2023 11:06 AM EDT AG TRANSITIONAL CARE MANAGEMENT (TCM) FOLLOW-UP NOTE Provider Action/FYI: Patient identified by name and date of : YES Spoke to: patient Diagnosis: PNA Summary: PCC contacted patient for TCM follow up. Patient's only concern was Vitamin E was ordered as a pill vs a spray. PCC made patient aware Vitamin E oil was sent to patient's pharmacy yesterday. Patient has no other questions or concerns at this time. PCC instructed patient to call [phone] with any questions or concerns. Health leads screening tool questions performed? No N/A Concerns: It Professional plan for next outreach: Will follow-up 2 weeks Signature: Dawood Carcamo RN April 25, 2023 documented in this encounterUniversity Hospitals [facility] Center10-18-2023 Miscellaneous Notes* Addendum Note - Barbara Herman DO - 04/24/2023 12:33 PM EDTAddended by: BARBARA HERMAN on: 04/24/2023 12:33 PM Modules accepted: Orders * Telephone Encounter - Chanel Hidalgo LPN - 04/23/2023 4:38 PM EDT Pt called in and reported that the prescription of vitamin is not sufficient. Pt states she does not need an oral, but a cream since it is for her buttocks. Pt is requesting to have a cream sent overto preferred pharmacy. documented in this encounterUniversity Hospitals [facility] Center10-16-2023 Miscellaneous Notes* Telephone Encounter - Antonio Vaughn DO - 04/22/2023 3:09 PM EDT These orders were already placed on 01/21/23. I see that the order was signed and sent under scanned documents on 01/17/23 and 01/30/23. I'll route to cliniical [place] to help follow up on what happened to the order. Not sure if she got the machine or not, since she was admitted to hospital then to SNF in February until end of March. Thanks Antonio Vaughn DO * Telephone Encounter - Ileana Watson - 04/22/2023 2:19 PM EDT Patient is requesting order for new CPAP machine . Ileana documented in this encounterUniversity Hospitals [facility] Center10-12-2023 History of Present illness Narrative* Dawood Carcamo RN - 04/18/2023 12:42 PM EDT AG TRANSITIONAL CARE MANAGEMENT (TCM) FOLLOW-UP NOTE Provider Action/FYI: Patient identified by name and date of : YES Spoke to: patient Diagnosis: PNA What is your activity like? Active, Doing therapy, bingo Are you moving around the house and getting out or sitting in bed or a chair all day? yes Encouraged movement to improve lungs. Summary: PCC contacted patient for TCM follow up. Patient is doing better. Patient has no issues breathing and her energy level has improved. Patientsaid she has been going to the grocery store with her aide. Patient has been going out and playing Bingo. Patient said she has been trying to stay active. Patient only issue is her cpap machine is not working right. PCC recommended patient look on the machine for the company that delivered CPAP. PCC made patient aware to call back if patient having issues contacting their CPAP supplier. PCC instructed patient to call [phone] with any questions or concerns. Health leads screening tool questions performed? N/A N/A Concerns: It Professional plan for next outreach: Will follow-up 1 week Signature: Dawood Carcamo RN April 18, 2023 documented in this encounterUniversity Hospitals Port[facility] Center10-11-2023 Miscellaneous Notes* Telephone Encounter - Chanel Hidalgo LPN - 04/17/2023 1:54 PM EDT Pt called in requesting, a refill for Vitamin E. Pt is reporting her bottom is rough and raw from going to the restroom frequently. Please advise. documented in this encounterUniversity Hospitals Portage Medical Center10-11-2023 Miscellaneous Notes* Telephone Encounter - Zehra Guaman - 04/17/2023 10:14 AM EDT Please review and complete. Will be placed in your temp file. Thank you. documented in this encounterUniversity Hospitals Port[facility] Center10-06-2023 History of Present illness Narrative* Manas Watt MD - 04/12/2023 5:59 PM EDT Attending Note I evaluated the patient and personally participated in the clayton components. I agree with the resident's findings and plan as documented and have discussed the case and management of the patient with the resident. I agree with the clayton elements of the history. I agree with the clayton elements of the physical exam. I have reviewed the findings with the resident. I agree with the diagnosis of: History of community acquired pneumonia (primary encounter diagnosis) Allergic rhinitis, unspecified seasonality, unspecified trigger Need for influenza vaccination and agree with the resident's plan of care. See resident's note for further details. Manas Watt MD * Susan Rodriguez, - 04/12/2023 1:51 PM EDT Transitional Care Management TCM Eligibility Documentation The following information was gathered during the initial Patient Outreach Encounter. Date of Outreach: 04/08/2023 Outreach Attempt 1: Contact Made Date of Discharge 04/05/2023 Some recent data might be hidden Summary Discharged from: [facility] Admit Date: 03/05/23 Admitted for: pneumonia Kelvin Marks LPN Provider Documentation Ana Lopes is a 77 year old female here today for a follow up to recent hospitalization. I havereviewed the patient's hospital course including diagnostic testing performed during this hospitalization, their discharge medications, and my assessment and plan with the patient and any family members present at today's visit. HPI: Patient with PMH of seizure disorder, DM type II, HTN, COPD, MARY (CPAP), morbid obesity, lymphedema, OA who was admitted to [facility] from 03/05-03/09 due to CAP with new O2 requirement. Patient was successfully weaned to RA prior to admission. She was initiated on ceftriaxone and then transitioned to cefdinir and doxycyline for home-going. [facility] Patient states since discharge home she has been feeling well. No acute complaints. She lives by herself, but has a sister that helps care for her. She also has home health aids that visit every Saturday, Saturday, Saturday, . Additionally, she has home PT. Patient notes her legs have been feeling weak since hospitalization. She typically uses a rollator or wheelchair. Patient denies fevers, chills, cough, congestion, SOB, chest pain, nausea, vomiting, abdominal pain, dysuria, urinary frequency/urgency. Patient is eating and drinking without difficulty. She is checking her sugars every morning. Morning blood sugar is typically between 100-104. She takes metformin 1,000 mg BID. Patientnotes she has not been wearing her CPAP at night because the mask is uncomfortable. She does have acontact that she plans to reach out regarding a new mask. Review of Systems Constitutional: Negative for chills, fever and malaise/fatigue. HENT: Negative for congestion and sore throat. Respiratory: Negative for cough, sputum production and shortness of breath. Cardiovascular: Negative for chest pain and leg swelling. Gastrointestinal: Negative for abdominal pain, constipation, diarrhea, nausea and vomiting. Genitourinary: Negative for dysuria, frequency and urgency. Musculoskeletal: Negative for joint pain and myalgias. Neurological: Positive for weakness. Negative for dizziness, tingling, focal weakness and headaches. Vitals BP 120/68 Pulse 97 Temp (Src) 97.4 (Temporal) Resp 20 Ht 5' 2" (1.58m) Wt 0 lb (0.0kg) SpO2 90% Physical Exam Vitals reviewed. Constitutional: General: She is not in acute distress. Appearance: She is obese. She is not ill-appearing or toxic-appearing. HENT: Head: Normocephalic and atraumatic. Eyes: Extraocular Movements: Extraocular movements intact. Pupils: Pupils are equal, round, and reactive to light. Cardiovascular: Rate and Rhythm: Normal rate and regular rhythm. Pulses: Normal pulses. Heart sounds: Normal heart sounds. Pulmonary: Effort: Pulmonary effort is normal. No respiratory distress. Breath sounds: Normal breath sounds. No wheezing, rhonchi or rales. Abdominal: General: Abdomen is flat. Palpations: Abdomen is soft. Musculoskeletal: General: Normal range of motion. Cervical back: Normal range of motion and neck supple. Comments: Chronic lymphedema to bilateral lower extremities, swelling at baseline per patient Skin: General: Skin is warm and dry. Neurological: General: No focal deficit present. Mental Status: She is oriented to person, place, and time. ASSESSMENT/PLAN: 1. History of community acquired pneumonia - ICD9: V12.61, ICD10: Z87.01 (primary diagnosis) - Resolved - Course of antibiotics completed - Patient to continue home care with aid and PT - Follow up in 3 months for chronic conditions 2. Allergic rhinitis, unspecified seasonality, unspecified trigger - ICD9: 477.9, ICD10: J30.9 - REFILL ONLY - FLUTICASONE PROPIONATE 50 MCG/ACTUATION NASAL SPRAY,SUSPENSION 3. Need for influenza vaccination - ICD9: V04.81, ICD10: Z23 - INFLUENZA VACCINE, PRSV FREE, AGE 65+ YR, HIGH DOSE, QUADRIVALENT (FLUZONE HIGH-DOSE) Susan Rodriguez DO April 12, 2023 1:51 PM documented in this encounterUniversity Hospitals Portage Medical Center10-06-2023 Instructions* Patient Instructions* Susan Rodriguez DO - 04/12/2023 2:07 PM EDT Thank you for arriving to your appointment today! Below is a brief summary of our appointment. You were seen for: Hospital follow up Medication changes: None Next appointment: Follow up in 3 months for chronic problems PRACTICAL SUGGESTIONS TO INCORPORATE MEDITERRANEAN DIET CATEGORY CONSUME AVOID Fruits and vegetables Wide variety of whole fruits and vegetables; try for at least 7-10 servings per day Vegetables prepared in butter or cream sauce High-fiber breads, cereals, and pasta Whole grain bread and cereal, bran, brown rice Sweets, white bread, biscuits, breadsticks, and other refined carbohydrates Protein that is low in saturated fat Lean cuts of meat (fat trimmed) or poultry (no skin); low-fat dairy foods (skim mild, yogurt) Banerjee, sausage, other processed or high-fat meat, milk or cheese that is not low-fat, ice cream Fish or other source of omega-3 fatty acids, at least 1 or 2 times per week [place], trout, [place],water-packed tuna, mackerel (or fish oil supplement); flaxseed, spinach, walnuts Fried fish ( except when bishop fried in olive oil) Healthy oils for cooking, salad dressing, and other uses Extra-virgin olive oil, canola oil, flaxseed oil ("high-oleic" sunflower or safflower oil may also be an option) [place]-6 oils, (corn, sunflower, safflower, soybean, peanut) Peas, beans, legumes, and nuts Soybeans, lentils, or any kind of peas, beans, or legumes; tree nuts(eg. Almonds,pecans, walnuts, [place] nuts) Heavily salted or honey-roasted nuts; stale or rancid nuts Alcohol One 5-oz glass of wine, a 12-oz beer, or a 1.5oz drink containing distilled spirits with the evening meal Limit to no more than 1 drink daily for women, 2 drinks daily for men Fat Emphasize whole, natural foods as above; look for 'trans-fatty acid -free" margarine and snack foods Fast food, fried food, margarine, chips, crackers, baked goods, doughnuts, any processed food made with partially hydrogenated oil documented in this encounterUniversity Hospitals [facility]10-06-2023 Nurse Note* Kelvin Marks LPN - 04/12/2023 1:47 PM EDT Immunization History - influenza (HD-IIV4) vaccine, age 65+ yr, high dose, quadrivalent, PF (FLUZONE HIGH-DOSE) (Given) - Date: 04/12/2023 - Lot #: [id number] - Dose: 0.7 mL - Site: Left deltoid - Correspondent: Sanofi Pasteur - Given By: KELVIN MARKS - Expiration Date: 01/05/2024 Influenza virus vaccine given as ordered. Kelvin Marks LPN documented in this encounterUniversity Hospitals Portage Medical Center09-25-2023 Miscellaneous Notes* Addendum Note - Lanny Robledo LPN - 04/01/2023 9:48 AM EDTAddended by: LANNY ROBLEDO on: 04/01/2023 09:48 AM Modules accepted: Orders * Telephone Encounter - Lanny Robledo LPN - 04/01/2023 9:46 AM EDT Patient called requesting the following refills. Patient states that she has been experiencing excessively dry eyes and nose since being in the SNF. Patient states that she is to be released on Saturday and would like these medications added to her order. Patient's call transferred to dental front office assistant to schedule follow up appointment, per request. Refill(s) Requested: Requested Prescriptions Pending Prescriptions Disp Refills polyvinyl alcohol (LIQUIFILM TEARS) 1.4 % ophthalmic solution Sig: Use 1 Drop in both eyes as needed. fluticasone (FLONASE) 50 mcg/actuation nasal spray 16 g 11 Sig: Use 1 [place] in each nostril once daily. ALLERGIES Allergen Reactions Nitroglycerin Cough Seizure Omeprazole Diarrhea Propoxyphene Other: See Comments Headache Acetaminophen GI Upset Codeine Rash Nabumetone GI Upset (home) [phone] (cell) Last Office Visit Date: 02/20/2023 Last Distance Health Visit: Visit date not found Future Appointment: Visit date not found The patients preferred pharmacy has been captured for this encounter? not asked Request is for script(s) to be escript to pharmacy. Lanny Robledo LPN * Telephone Encounter - Annamaria Felix - 04/01/2023 9:35 AM EDT The patient/caregiver contacted the office, requesting refills of sinus medication that she puts upher nose. Patient prefers prescriptions to be e prescribed to [facility]'s pharmacy at [address] [place] [address], [place] location. [phone] Last Office Visit Date: 02/20/2023 Last Distance Health Visit: Visit date not found Future Appointment: Visit date not found Annamaria Felix documented in this encounterUniversity Hospitals Portage Medical Center09-22-2023 Miscellaneous Notes* Telephone Encounter - Barbara Herman DO - 03/29/2023 12:10 PM EDT Forms reviewed and completed. Placed in my folder in [facility]. Thank you! * Telephone Encounter - Zehra Guaman - 03/29/2023 7:03 AM EDT Please review and complete. Will be placed in your temp file. Thank you. documented in this encounterUniversity Hospitals Portage Medical Center09-22-2023 History of Present illness Narrative* Sharyn Andrade APRN.BOXING AND PRESSING SUPERVISOR - 03/29/2023 9:41 AM EDT Images from the original note were not included. Connected Care Unit Progress Note Patient Name: Ana Lopes Patient Facility: [facility] Admit Date 03/09/2023 Level of Care: Medicaid SNF Attending: ELVIN CALDERON Service Date: 03/29/2023 Code Status: Full code Chief Complaint: Evaluation regarding skilled therapy progress ASSESSMENT AND PLAN (J44.9) Chronic obstructive pulmonary disease, unspecified COPD type (HCC) No signs of exacerbation She is tolerting RA Continue meds spiriva and ipratrpium bromide Maintain O2 sats above 90% (E11.51) Type II diabetes mellitus with peripheral circulatory disorder ([facility]) Continue with daily accu checks Not on insulin cont metformin 1000mg bid Monitor labs BMP and A1c Continue with controlled carbohydrate diet PVD (peripheral vascular disease) ([facility]) [I73.9] As evidenced by cool and hairless extremities BLE venous stasis and discoloration on both legs some erethema as well as hypertrophic monitor closely for infectious process No open areas seen continue to monitor for skin integrity Podiatry to ff in facility (R53.81) Debility PT/OT to cont and treat for gait, mobility, and balance Requires skilled PT for improving strength and balance, decreasing risk for falls, improving ability to do ADLs, and for returning close to prior level of functioning Frequent checks to provide hydration and toileting HPI: (Per hospital dc summ Ana is a 77 year old female with a pertinent PMH of seizure disorder,DM2, HTN, COPD (without oxygen at baseline), MARY (uses CPAP at home) morbid obesity who was admitted for community acquired pneumonia (with new oxygen requirement) and UTI. She was treated with ceftriaxone (transitioned to cefdinir) and doxycycline. She received NS IV bolus X2 for mild dehydration. Urine culture showed no growth. All her other conditions were optimized with her home medication regimen. She was skilled for SNF and will discharge to [facility] with outpatient follow up. Interval HPI 03/29/2023 Pt is stable she is seen and examined in her room she is alert and oriented times 3 she denies any new concerns she states she plans to return home next Saturday nursing has no concerns to report PAST MEDICAL HISTORY Diagnosis Date Diabetes (HCC) Hypercholesteremia Rheumatoid arthritis (HCC) SUBJECTIVE: Review of Systems Constitutional: Negative for appetite change, chills, fatigue and fever. HENT: Negative for congestion and trouble swallowing. Eyes: Negative for visual disturbance. Respiratory: Negative for apnea, chest tightness, shortness of breath and wheezing. Cardiovascular: Negative for chest pain, palpitations and leg swelling. Gastrointestinal: Negative for abdominal distention, abdominal pain, constipation, diarrhea, nauseaand vomiting. Endocrine: Negative for polydipsia, polyphagia and polyuria. Genitourinary: Negative for difficulty urinating, dysuria and frequency. Musculoskeletal: Positive for gait problem. Neurological: Positive for weakness. Psychiatric/Behavioral: Negative for agitation, behavioral problems and confusion. No reports of falls/injuries, changes in cognition/behaviors, or any uncontrolled pain exacerbations. Medications: Medications listed in Epic during SNF admission may not be current. Refer to facility record. Patient records, current medications, most recent labs, family/social history (unchanged) Reviewed.Refer to facility records. OBJECTIVE: Labs/diagnostics: Latest Reference Range & Units 03/09/23 03:08 Sodium 136 - 144 mmol/L 139 Potassium 3.7 - 5.1 mmol/L 4.5 Chloride 97 - 105 mmol/L 102 CO2 22 - 30 mmol/L 30 BUN 7 - 21 mg/dL 24 (H) Creatinine 0.58 - 0.96 mg/dL 0.97 (H) Glucose 74 - 99 mg/dL 109 (H) Calcium 8.5 - 10.2 mg/dL 9.1 (H): Data is abnormally high Latest Reference Range & Units 03/09/23 03:08 WBC 3.70 - 11.00 k/uL 9.19 RBC 3.90 - 5.20 m/uL 4.18 Hemoglobin 11.5 - 15.5 g/dL 12.5 Hematocrit 36.0 - 46.0 % 39.6 Platelet Count 150 - 400 k/uL 237 MCV 80.0 - 100.0 fL 94.7 MCH 26.0 - 34.0 pg 29.9 MCHC 30.5 - 36.0 g/dL 31.6 MPV 9.0 - 12.7 fL 9.2 RDW-CV 11.5 - 15.0 % 13.5 Vital Signs: BP 122/67 Pulse 68 Temp 36.7 C (98 F) Resp 18 SpO2 98% Physical Exam: Physical Exam Constitutional: General: She is not in acute distress. Appearance: She is not ill-appearing. HENT: Head: Normocephalic. Mouth/Throat: Mouth: Mucous membranes are moist. Eyes: Pupils: Pupils are equal, round, and reactive to light. Cardiovascular: Rate and Rhythm: Normal rate and regular rhythm. Pulses: Normal pulses. Heart sounds: Normal heart sounds. Pulmonary: Effort: Pulmonary effort is normal. No respiratory distress. Breath sounds: No wheezing, rhonchi or rales. Abdominal: General: Bowel sounds are normal. There is no distension. Palpations: Abdomen is soft. Tenderness: There is no abdominal tenderness. Musculoskeletal: Cervical back: Neck supple. Right lower leg: No edema. Left lower leg: No edema. Skin: Findings: No bruising, erythema or rash. Neurological: General: No focal deficit present. Mental Status: She is alert and oriented to person, place, and time. Motor: Weakness present. Gait: Gait abnormal. Psychiatric: Mood and Affect: Mood normal. Behavior: Behavior normal. Thought Content: Thought content normal. POC discussed with appropriate parties and nursing staff. Previous progress note was copied forward updated where appropriate and reflective of current medical decision making today 03/29/2023 Electronically signed by Sharyn Andrade APRN.KALPESH documented in this encounterUniversity Hospitals Portage [facility] Center09-19-2023 History of Present illness Narrative* Sharyn Andrade APRN.CNP - 03/26/2023 9:16 AM EDT Images from the original note were not included. Connected Care Unit Progress Note Patient Name: Ana Lopes Patient Facility: [facility] Admit Date 03/09/2023 Level of Care: Medicaid SNF Attending: ELVIN CALDERON Service Date: 03/22/2023 Code Status: Full code Chief Complaint: Evaluation regarding skilled therapy progress ASSESSMENT AND PLAN (J18.9) Community acquired pneumonia, unspecified laterality (primary encounter diagnosis) Continue meds albuterol inhaler Received IV antibiotics Continue to monitor (J44.9) Chronic obstructive pulmonary disease, unspecified COPD type ([facility]) No signs of exacerbation She is tolerting RA Continue meds spiriva and ipratrpium bromide Maintain O2 sats above 90% (E11.51) Type II diabetes mellitus with peripheral circulatory disorder ([facility]) Continue with daily accu checks Not on insulin cont metformin 1000mg bid Monitor labs BMP and A1c Continue with controlled carbohydrate diet PVD (peripheral vascular disease) ([facility]) [I73.9] As evidenced by cool and hairless extremities BLE venous stasis and discoloration on both legs some erethema seen pt states it not worse monitor closely for infectious process No open areas seen continue to monitor for skin integrity Podiatry to ff in facility (R53.81) Debility PT/OT to cont and treat for gait, mobility, and balance Requires skilled PT for improving strength and balance, decreasing risk for falls, improving ability to do ADLs, and for returning close to prior level of functioning Frequent checks to provide hydration and toileting HPI: (Per hospital dc summ Ana is a 77 year old female with a pertinent PMH of seizure disorder,DM2, HTN, COPD (without oxygen at baseline), MARY (uses CPAP at home) morbid obesity who was admitted for community acquired pneumonia (with new oxygen requirement) and UTI. She was treated with ceftriaxone (transitioned to cefdinir) and doxycycline. She received NS IV bolus X2 for mild dehydration. Urine culture showed no growth. All her other conditions were optimized with her home medication regimen. She was skilled for SNF and will discharge to [facility] with outpatient follow up. Interval HPI 03/26/2023 Pt is stable she is seen and examined in her room she is alert and oriented times 3 she denies any new concerns her therapy under part A run out she is now flipped over to her medicaid she continues to remain in the SNF pt states she is not sure when she can return to her apartment because its being treated for bedbugs nursing staff has no new acute concerns she is tolerating RA. Encouraged hydration labs reviewed and stable. PAST MEDICAL HISTORY Diagnosis Date Diabetes (HCC) Hypercholesteremia Rheumatoid arthritis (HCC) SUBJECTIVE: Review of Systems Constitutional: Negative for appetite change, chills, fatigue and fever. HENT: Negative for congestion and trouble swallowing. Eyes: Negative for visual disturbance. Respiratory: Negative for apnea, chest tightness, shortness of breath and wheezing. Cardiovascular: Negative for chest pain, palpitations and leg swelling. Gastrointestinal: Negative for abdominal distention, abdominal pain, constipation, diarrhea, nauseaand vomiting. Endocrine: Negative for polydipsia, polyphagia and polyuria. Genitourinary: Negative for difficulty urinating, dysuria and frequency. Musculoskeletal: Positive for gait problem. Neurological: Positive for weakness. Psychiatric/Behavioral: Negative for agitation, behavioral problems and confusion. No reports of falls/injuries, changes in cognition/behaviors, or any uncontrolled pain exacerbations. Medications: Medications listed in Epic during SNF admission may not be current. Refer to facility record. Patient records, current medications, most recent labs, family/social history (unchanged) Reviewed.Refer to facility records. OBJECTIVE: Labs/diagnostics: Latest Reference Range & Units 03/09/23 03:08 Sodium 136 - 144 mmol/L 139 Potassium 3.7 - 5.1 mmol/L 4.5 Chloride 97 - 105 mmol/L 102 CO2 22 - 30 mmol/L 30 BUN 7 - 21 mg/dL 24 (H) Creatinine 0.58 - 0.96 mg/dL 0.97 (H) Glucose 74 - 99 mg/dL 109 (H) Calcium 8.5 - 10.2 mg/dL 9.1 (H): Data is abnormally high Latest Reference Range & Units 03/09/23 03:08 WBC 3.70 - 11.00 k/uL 9.19 RBC 3.90 - 5.20 m/uL 4.18 Hemoglobin 11.5 - 15.5 g/dL 12.5 Hematocrit 36.0 - 46.0 % 39.6 Platelet Count 150 - 400 k/uL 237 MCV 80.0 - 100.0 fL 94.7 MCH 26.0 - 34.0 pg 29.9 MCHC 30.5 - 36.0 g/dL 31.6 MPV 9.0 - 12.7 fL 9.2 RDW-CV 11.5 - 15.0 % 13.5 Vital Signs: BP 122/65 Pulse 68 Temp 36.7 C (98 F) Resp 18 SpO2 98% Physical Exam: Physical Exam Constitutional: General: She is not in acute distress. Appearance: She is not ill-appearing. HENT: Head: Normocephalic. Mouth/Throat: Mouth: Mucous membranes are moist. Eyes: Pupils: Pupils are equal, round, and reactive to light. Cardiovascular: Rate and Rhythm: Normal rate and regular rhythm. Pulses: Normal pulses. Heart sounds: Normal heart sounds. Pulmonary: Effort: Pulmonary effort is normal. No respiratory distress. Breath sounds: No wheezing, rhonchi or rales. Abdominal: General: Bowel sounds are normal. There is no distension. Palpations: Abdomen is soft. Tenderness: There is no abdominal tenderness. Musculoskeletal: Cervical back: Neck supple. Right lower leg: No edema. Left lower leg: No edema. Skin: Findings: No bruising, erythema or rash. Neurological: General: No focal deficit present. Mental Status: She is alert and oriented to person, place, and time. Motor: Weakness present. Gait: Gait abnormal. Psychiatric: Mood and Affect: Mood normal. Behavior: Behavior normal. Thought Content: Thought content normal. POC discussed with appropriate parties and nursing staff. Previous progress note was copied forward updated where appropriate and reflective of current medical decision making today 03/26/2023 Electronically signed by Sharyn Andrade APRN.BOXING AND PRESSING SUPERVISOR documented in this encounterUniversity Hospitals Portage Medical Center09-12-2023 History of Present illness Narrative* Sharyn Andrade APRN.BOXING AND PRESSING SUPERVISOR - 03/19/2023 9:25 AM EDT Images from the original note were not included. Connected Care Unit Progress Note Patient Name: Ana Lopes Patient Facility: [facility] Admit Date 03/09/2023 Level of Care: Skilled SNF Attending: ELVIN CALDERON Service Date: 03/19/2023 Code Status: Full code Chief Complaint: Evaluation regarding skilled therapy progress ASSESSMENT AND PLAN (J18.9) Community acquired pneumonia, unspecified laterality (primary encounter diagnosis) Continue meds albuterol inhaler Received IV antibiotics Continue to monitor (J44.9) Chronic obstructive pulmonary disease, unspecified COPD type (HCC) No signs of exacerbation She is tolerting RA Continue meds spiriva and ipratrpium bromide Maintain O2 sats above 90% (E11.51) Type II diabetes mellitus with peripheral circulatory disorder (HCC) Continue with daily accu checks Insulin as scheduled to optimize BS Monitor labs BMP and A1c Continue with controlled carbohydrate diet (R53.81) Debility PT/OT eval and treat for gait, mobility, and balance Requires skilled PT for improving strength and balance, decreasing risk for falls, improving ability to do ADLs, and for returning close to prior level of functioning Frequent checks to provide hydration and toileting HPI: (Per hospital dc summ Ana is a 77 year old female with a pertinent PMH of seizure disorder,DM2, HTN, COPD (without oxygen at baseline), MARY (uses CPAP at home) morbid obesity who was admitted for community acquired pneumonia (with new oxygen requirement) and UTI. She was treated with ceftriaxone (transitioned to cefdinir) and doxycycline. She received NS IV bolus X2 for mild dehydration. Urine culture showed no growth. All her other conditions were optimized with her home medication regimen. She was skilled for SNF and will discharge to [facility] with outpatient follow up. Interval HPI 03/19/2023 Pt is stable she is seen and examined in her room she is alert and oriented times 3 she denies any new concerns she plans to return home soon states her therapy is gong well. nursing staff has no new acute concerns she is tolerating RA. Encouraged hydration labs reviewed and stable PAST MEDICAL HISTORY Diagnosis Date Diabetes (HCC) Hypercholesteremia Rheumatoid arthritis (HCC) SUBJECTIVE: Review of Systems Constitutional: Negative for appetite change, chills, fatigue and fever. HENT: Negative for congestion and trouble swallowing. Eyes: Negative for visual disturbance. Respiratory: Negative for apnea, chest tightness, shortness of breath and wheezing. Cardiovascular: Negative for chest pain, palpitations and leg swelling. Gastrointestinal: Negative for abdominal distention, abdominal pain, constipation, diarrhea, nauseaand vomiting. Endocrine: Negative for polydipsia, polyphagia and polyuria. Genitourinary: Negative for difficulty urinating, dysuria and frequency. Musculoskeletal: Positive for gait problem. Neurological: Positive for weakness. Psychiatric/Behavioral: Negative for agitation, behavioral problems and confusion. No reports of falls/injuries, changes in cognition/behaviors, or any uncontrolled pain exacerbations. Medications: Medications listed in Epic during SNF admission may not be current. Refer to facility record. Patient records, current medications, most recent labs, family/social history (unchanged) Reviewed.Refer to facility records. OBJECTIVE: Labs/diagnostics: Latest Reference Range & Units 03/09/23 03:08 Sodium 136 - 144 mmol/L 139 Potassium 3.7 - 5.1 mmol/L 4.5 Chloride 97 - 105 mmol/L 102 CO2 22 - 30 mmol/L 30 BUN 7 - 21 mg/dL 24 (H) Creatinine 0.58 - 0.96 mg/dL 0.97 (H) Glucose 74 - 99 mg/dL 109 (H) Calcium 8.5 - 10.2 mg/dL 9.1 (H): Data is abnormally high Latest Reference Range & Units 03/09/23 03:08 WBC 3.70 - 11.00 k/uL 9.19 RBC 3.90 - 5.20 m/uL 4.18 Hemoglobin 11.5 - 15.5 g/dL 12.5 Hematocrit 36.0 - 46.0 % 39.6 Platelet Count 150 - 400 k/uL 237 MCV 80.0 - 100.0 fL 94.7 MCH 26.0 - 34.0 pg 29.9 MCHC 30.5 - 36.0 g/dL 31.6 MPV 9.0 - 12.7 fL 9.2 RDW-CV 11.5 - 15.0 % 13.5 Vital Signs: BP 116/78 Pulse 78 Temp 36.7 C (98 F) Resp 18 SpO2 97% Physical Exam: Physical Exam Constitutional: General: She is not in acute distress. Appearance: She is not ill-appearing. HENT: Head: Normocephalic. Mouth/Throat: Mouth: Mucous membranes are moist. Eyes: Pupils: Pupils are equal, round, and reactive to light. Cardiovascular: Rate and Rhythm: Normal rate and regular rhythm. Pulses: Normal pulses. Heart sounds: Normal heart sounds. Pulmonary: Effort: Pulmonary effort is normal. No respiratory distress. Breath sounds: No wheezing, rhonchi or rales. Abdominal: General: Bowel sounds are normal. There is no distension. Palpations: Abdomen is soft. Tenderness: There is no abdominal tenderness. Musculoskeletal: Cervical back: Neck supple. Right lower leg: No edema. Left lower leg: No edema. Skin: Findings: No bruising, erythema or rash. Neurological: General: No focal deficit present. Mental Status: She is alert and oriented to person, place, and time. Motor: Weakness present. Gait: Gait abnormal. Psychiatric: Mood and Affect: Mood normal. Behavior: Behavior normal. Thought Content: Thought content normal. POC discussed with appropriate parties and nursing staff. Previous progress note was copied forward updated where appropriate and reflective of current medical decision making today 03/19/2023 Electronically signed by Sharyn Andrade APRN.CNP documented in this encounterUniversity Hospitals Portage [facility] Center09-08-2023 History of Present illness Narrative* Sharyn Andrade APRN.CNP - 03/15/2023 11:13 AM EDT Opened in error documented in this encounterUniversity Hospitals Portage Medical Center09-08-2023 History of Present illness Narrative* Sharyn Andrade APRN.CNP - 03/15/2023 9:34 AM EDT Images from the original note were not included. Connected Care Unit Progress Note Patient Name: Ana Lopes Patient Facility[facility] Admit Date 03/09/2023 Level of Care: Skilled SNF Attending: ELVIN CALDERON Service Date: 03/15/2023 Code Status: Full code Chief Complaint: Evaluation regarding skilled therapy progress ASSESSMENT AND PLAN (J18.9) Community acquired pneumonia, unspecified laterality (primary encounter diagnosis) Continue meds albuterol inhaler Received IV antibiotics Continue to monitor (J44.9) Chronic obstructive pulmonary disease, unspecified COPD type (HCC) No signs of exacerbation She is tolerting RA Continue meds spiriva and ipratrpium bromide Maintain O2 sats above 90% (E11.51) Type II diabetes mellitus with peripheral circulatory disorder (HCC) Continue with daily accu checks Insulin as scheduled to optimize BS Monitor labs BMP and A1c Continue with controlled carbohydrate diet (R53.81) Debility PT/OT eval and treat for gait, mobility, and balance Requires skilled PT for improving strength and balance, decreasing risk for falls, improving ability to do ADLs, and for returning close to prior level of functioning Frequent checks to provide hydration and toileting Urinary tract infection without hematuria, site unspecified [N39.0] Received ceftriaxone and keflex Encouraged hydration HPI: (Per hospital dc summ Ana is a 77 year old female with a pertinent PMH of seizure disorder,DM2, HTN, COPD (without oxygen at baseline), MARY (uses CPAP at home) morbid obesity who was admitted for community acquired pneumonia (with new oxygen requirement) and UTI. She was treated with ceftriaxone (transitioned to cefdinir) and doxycycline. She received NS IV bolus X2 for mild dehydration. Urine culture showed no growth. All her other conditions were optimized with her home medication regimen. She was skilled for SNF and will discharge to [facility] with outpatient follow up. Interval HPI 03/15/2023 Pt is stable she isseen and examined in her room she is alert and oriented times 3 reports no new acute concerns. She Reports participating and tolerating therapy nursing staff has no new acute concerns she seems to be in no acute respiratory distress she is tolerating RA. Encouraged hydration labs reviewed and stable PAST MEDICAL HISTORY Diagnosis Date Diabetes (HCC) Hypercholesteremia Rheumatoid arthritis (HCC) SUBJECTIVE: Review of Systems Constitutional: Negative for appetite change, chills, fatigue and fever. HENT: Negative for congestion and trouble swallowing. Eyes: Negative for visual disturbance. Respiratory: Negative for apnea, chest tightness, shortness of breath and wheezing. Cardiovascular: Negative for chest pain, palpitations and leg swelling. Gastrointestinal: Negative for abdominal distention, abdominal pain, constipation, diarrhea, nauseaand vomiting. Endocrine: Negative for polydipsia, polyphagia and polyuria. Genitourinary: Negative for difficulty urinating, dysuria and frequency. Musculoskeletal: Positive for gait problem. Neurological: Positive for weakness. Psychiatric/Behavioral: Negative for agitation, behavioral problems and confusion. No reports of falls/injuries, changes in cognition/behaviors, or any uncontrolled pain exacerbations. Medications: Medications listed in Epic during SNF admission may not be current. Refer to facility record. Patient records, current medications, most recent labs, family/social history (unchanged) Reviewed.Refer to facility records. OBJECTIVE: Labs/diagnostics: Latest Reference Range & Units 03/09/23 03:08 Sodium 136 - 144 mmol/L 139 Potassium 3.7 - 5.1 mmol/L 4.5 Chloride 97 - 105 mmol/L 102 CO2 22 - 30 mmol/L 30 BUN 7 - 21 mg/dL 24 (H) Creatinine 0.58 - 0.96 mg/dL 0.97 (H) Glucose 74 - 99 mg/dL 109 (H) Calcium 8.5 - 10.2 mg/dL 9.1 (H): Data is abnormally high Latest Reference Range & Units 03/09/23 03:08 WBC 3.70 - 11.00 k/uL 9.19 RBC 3.90 - 5.20 m/uL 4.18 Hemoglobin 11.5 - 15.5 g/dL 12.5 Hematocrit 36.0 - 46.0 % 39.6 Platelet Count 150 - 400 k/uL 237 MCV 80.0 - 100.0 fL 94.7 MCH 26.0 - 34.0 pg 29.9 MCHC 30.5 - 36.0 g/dL 31.6 MPV 9.0 - 12.7 fL 9.2 RDW-CV 11.5 - 15.0 % 13.5 Vital Signs: BP 95/61 Pulse 65 Temp 36.7 C (98 F) Resp 18 SpO2 98% Physical Exam: Physical Exam Constitutional: General: She is not in acute distress. Appearance: She is not ill-appearing. HENT: Head: Normocephalic. Mouth/Throat: Mouth: Mucous membranes are moist. Eyes: Pupils: Pupils are equal, round, and reactive to light. Cardiovascular: Rate and Rhythm: Normal rate and regular rhythm. Pulses: Normal pulses. Heart sounds: Normal heart sounds. Pulmonary: Effort: Pulmonary effort is normal. No respiratory distress. Breath sounds: No wheezing, rhonchi or rales. Abdominal: General: Bowel sounds are normal. There is no distension. Palpations: Abdomen is soft. Tenderness: There is no abdominal tenderness. Musculoskeletal: Cervical back: Neck supple. Right lower leg: No edema. Left lower leg: No edema. Skin: Findings: No bruising, erythema or rash. Neurological: General: No focal deficit present. Mental Status: She is alert and oriented to person, place, and time. Motor: Weakness present. Gait: Gait abnormal. Psychiatric: Mood and Affect: Mood normal. Behavior: Behavior normal. Thought Content: Thought content normal. POC discussed with appropriate parties and nursing staff. Previous progress note was copied forward updated where appropriate and reflective of current medical decision making today 03/15/2023 Electronically signed by Sharyn Andrade APRN.CNP documented in this encounterUniversity Hospitals Portage [facility] Center09-06-2023 History of Present illness Narrative* Sharyn Andrade APRN.CNP - 03/13/2023 9:22 AM EDT Images from the original note were not included. Connected Care Unit Progress Note Patient Name: Ana Lopes Patient Facility: [facility] Admit Date 03/09/2023 Level of Care: Skilled SNF Attending: ELVIN CALDERON Service Date: 03/13/2023 Code Status: Full code Chief Complaint: Evaluation regarding skilled therapy progress ASSESSMENT AND PLAN (J18.9) Community acquired pneumonia, unspecified laterality (primary encounter diagnosis) Continue meds albuterol inhaler Received IV antibiotics Continue to monitor (J44.9) Chronic obstructive pulmonary disease, unspecified COPD type (HCC) No signs of exacerbation She is tolerting RA Continue meds spiriva and ipratrpium bromide Maintain O2 sats above 90% (E11.51) Type II diabetes mellitus with peripheral circulatory disorder (HCC) Continue with daily accu checks Insulin as scheduled to optimize BS Monitor labs BMP and A1c Continue with controlled carbohydrate diet (G47.33) MARY on CPAP Cont with CPAP at bed time Maintain O2 stats at 90% or better (R53.81) Debility PT/OT eval and treat for gait, mobility, and balance Requires skilled PT for improving strength and balance, decreasing risk for falls, improving ability to do ADLs, and for returning close to prior level of functioning Frequent checks to provide hydration and toileting (E78.5) Hyperlipidemia, unspecified hyperlipidemia type Stable cont hyperlipidemia Seizures (HCC) [R56.9] continue keppra Monitor for seizures Urinary tract infection without hematuria, site unspecified [N39.0] Received ceftriaxone and keflex Encouraged hydration HPI: (Per hospital dc summ Ana is a 77 year old female with a pertinent PMH of seizure disorder,DM2, HTN, COPD (without oxygen at baseline), MARY (uses CPAP at home) morbid obesity who was admitted for community acquired pneumonia (with new oxygen requirement) and UTI. She was treated with ceftriaxone (transitioned to cefdinir) and doxycycline. She received NS IV bolus X2 for mild dehydration. Urine culture showed no growth. All her other conditions were optimized with her home medication regimen. She was skilled for SNF and will discharge to [facility] with outpatient follow up. Interval HPI 03/13/2023 Pt is seen and examined in her room she is alert and oriented times 3 reportsno new acute concerns. She Reports participating and tolerating therapy she admits to SNF for rehaband plans to return home after therapy is completed nursing staff has no new acute concerns she seems to be in no acute respiratory distress she is tolerating RA. Encouraged hydration labs reviewed and stable PAST MEDICAL HISTORY Diagnosis Date Diabetes (HCC) Hypercholesteremia Rheumatoid arthritis (HCC) SUBJECTIVE: Review of Systems Constitutional: Negative for appetite change, chills, fatigue and fever. HENT: Negative for congestion and trouble swallowing. Eyes: Negative for visual disturbance. Respiratory: Negative for apnea, chest tightness, shortness of breath and wheezing. Cardiovascular: Negative for chest pain, palpitations and leg swelling. Gastrointestinal: Negative for abdominal distention, abdominal pain, constipation, diarrhea, nauseaand vomiting. Endocrine: Negative for polydipsia, polyphagia and polyuria. Genitourinary: Negative for difficulty urinating, dysuria and frequency. Musculoskeletal: Positive for gait problem. Neurological: Positive for weakness. Psychiatric/Behavioral: Negative for agitation, behavioral problems and confusion. No reports of falls/injuries, changes in cognition/behaviors, or any uncontrolled pain exacerbations. Medications: Medications listed in Epic during SNF admission may not be current. Refer to facility record. Patient records, current medications, most recent labs, family/social history (unchanged) Reviewed.Refer to facility records. OBJECTIVE: Labs/diagnostics: Latest Reference Range & Units 03/09/23 03:08 Sodium 136 - 144 mmol/L 139 Potassium 3.7 - 5.1 mmol/L 4.5 Chloride 97 - 105 mmol/L 102 CO2 22 - 30 mmol/L 30 BUN 7 - 21 mg/dL 24 (H) Creatinine 0.58 - 0.96 mg/dL 0.97 (H) Glucose 74 - 99 mg/dL 109 (H) Calcium 8.5 - 10.2 mg/dL 9.1 (H): Data is abnormally high Latest Reference Range & Units 03/09/23 03:08 WBC 3.70 - 11.00 k/uL 9.19 RBC 3.90 - 5.20 m/uL 4.18 Hemoglobin 11.5 - 15.5 g/dL 12.5 Hematocrit 36.0 - 46.0 % 39.6 Platelet Count 150 - 400 k/uL 237 MCV 80.0 - 100.0 fL 94.7 MCH 26.0 - 34.0 pg 29.9 MCHC 30.5 - 36.0 g/dL 31.6 MPV 9.0 - 12.7 fL 9.2 RDW-CV 11.5 - 15.0 % 13.5 Vital Signs: BP 120/70 Pulse 65 Temp 36.7 C (98 F) Resp 18 SpO2 98% Physical Exam: Physical Exam Constitutional: General: She is not in acute distress. Appearance: She is not ill-appearing. HENT: Head: Normocephalic. Mouth/Throat: Mouth: Mucous membranes are moist. Eyes: Pupils: Pupils are equal, round, and reactive to light. Cardiovascular: Rate and Rhythm: Normal rate and regular rhythm. Pulses: Normal pulses. Heart sounds: Normal heart sounds. Pulmonary: Effort: Pulmonary effort is normal. No respiratory distress. Breath sounds: No wheezing, rhonchi or rales. Abdominal: General: Bowel sounds are normal. There is no distension. Palpations: Abdomen is soft. Tenderness: There is no abdominal tenderness. Musculoskeletal: Cervical back: Neck supple. Right lower leg: No edema. Left lower leg: No edema. Skin: Findings: No bruising, erythema or rash. Neurological: General: No focal deficit present. Mental Status: She is alert and oriented to person, place, and time. Motor: Weakness present. Gait: Gait abnormal. Psychiatric: Mood and Affect: Mood normal. Behavior: Behavior normal. Thought Content: Thought content normal. POC discussed with appropriate parties and nursing staff. Electronically signed by Sharyn Andrade APRN.BOXING AND PRESSING SUPERVISOR documented in this encounterUniversity Hospitals Portage [facility] Center09-05-2023 History of Present illness Narrative* Ileana Garner RN - 03/12/2023 6:56 AM EDT TRANSITION CARE MANAGEMENT (TCM) DISCHARGE TO POST ACUTE FACILITY POST ACUTE TRANSFER SUMMARY: -Pt discharged from [facility] on 03/09/2023 -Post Acute Facility Ad[facility] to [facility] -Admitted for : Pneumonia Office PCC will follow at discharge Ileana Garner RN March 12, 2023 6:58 AM documented in this encounterUniversity Hospitals Portage [facility] Center08-30-2023 History of Present illness Narrative* Kaitlin Saenz RN - 03/06/2023 12:46 PM EDT [facility] Transitional Care Management (TCM) Inpatient Patient Visit/Outreach Provider Action/FYI PNA, declined scheduling TCM. Patient notes that she has bedbugs in home. States that the building is to treat. PNA Kaitlin Saenz RN Patient Admitted To [facility] on 03/05/23 Patient admitted for PNA Contact Made with Patient at bedside Yes, room [facility]- Patient identified by name and date of . Others Present at bedside No ,name N/A relationship to patient N/A, permission to include in bedside discussion N/A Patient introduced to the transitional care management team; explained our purpose, mission, and provided hours of operation, M-F 8-4 PM, excluding holidays. We provided them with resources and our contact information. Resources: Primary Care Provider First Card, Transitional Care Management Card, eClarity Flyer, TCMRN business Card, Provided Patient educated on importance of primary care provider follow up visit as well as specialty provider follow up visits as indicated. Scheduled PCP follow up appointment Declined Date , Does patient have any concerns or barriers to returning home? No Health leads screening tool questions: Do you often feel you lack companionship? No Do you ever need help reading or understanding hospital materials? No In the last 12 months, have you changed how you take medications to save money? No In the past 12 months, has lack of transportation kept you from medical appointments, work, or getting things you need like food, or supplies? No, Patient uses [employer] In the last 12 months, did you ever eat less than you felt you should because there wasn't enough money for food? No During the winter, do you anticipate having a problem paying your heating bill? No In the next 2 months, are you worried you might not have stable housing? No If needs identified: Would you like to receive assistance with any of these needs after discharge? No Resources/Referrals None Advanced Directives: Already in chart Living Will: Declined Meds to bed initiated No Educated patient on post discharge expectations, contingency management, and post-discharge programs available to them. Encouraged patient to refer to and read the hospital discharge summary again once they are home. [facility] Accepts If Yes, Confirm demographics, where patient will reside at discharge. TCM RN to do referral upon discharge. We have your contact number as [phone] , is this the best number to contact you? Yes [facility] [address] [facility] [address] [facility] [address] , is this where you will be staying after discharge? Yes Do you give us permission to speak to anyone else if you are unavailable to speak to us? Yes name Divya, relationship sister and contact number [phone] Kaitlin Saenz RN March 06, 2023 12:49 PM documented in this encounterUniversity Hospitals Portage Medical Center08-29-2023 History of Past illness Narrative* Problem Noted Date Diagnosed Date Resolved Date Pneumonia 03/05/2023 03/05/2023 documented as of this encounter (statuses as of 03/06/2023) [facility]08-29-[facility] History of Past illness Narrative* Problem Noted Date Diagnosed Date Resolved Date Pneumonia 03/05/2023 03/05/2023 documented as of this encounter (statuses as of 03/06/2023) [facility]08-29-[facility] History of Past illness Narrative* Problem Noted Date Diagnosed Date Resolved Date Pneumonia 03/05/2023 03/05/2023 documented as of this encounter (statuses as of 03/07/2023) [place] [address]-29-2023 History of Past illness Narrative* Problem Noted Date Diagnosed Date Resolved Date Pneumonia 03/05/2023 03/05/2023 Hypertension 02/06/2018 03/09/2023 Seizure disorder 02/06/2018 03/09/2023 Last Assessment & Plan: -Keppra 1000mg BID -D/C Topiramate -D/C cEEG -MRI Brain when able - Okay to extubate from our standpoint. documented as of this encounter (statuses as of 03/12/2023) [facility]08[facility] History of Past illness Narrative* Problem Noted Date Diagnosed Date Resolved Date Pneumonia 03/05/2023 03/05/2023 Hypertension 02/06/2018 03/09/2023 Seizure disorder 02/06/2018 03/09/2023 Last Assessment & Plan: -Keppra 1000mg BID -D/C Topiramate -D/C cEEG -MRI Brain when able - Okay to extubate from our standpoint. documented as of this encounter (statuses as of 03/13/2023) [facility]08[facility] History of Past illness Narrative* Problem Noted Date Diagnosed Date Resolved Date Pneumonia 03/05/2023 03/05/2023 Hypertension 02/06/2018 03/09/2023 Seizure disorder 02/06/2018 03/09/2023 Last Assessment & Plan: -Keppra 1000mg BID -D/C Topiramate -D/C cEEG -MRI Brain when able - Okay to extubate from our standpoint. documented as of this encounter (statuses as of 03/15/2023) [facility]08[facility] History of Past illness Narrative* Problem Noted Date Diagnosed Date Resolved Date Pneumonia 03/05/2023 03/05/2023 Hypertension 02/06/2018 03/09/2023 Seizure disorder 02/06/2018 03/09/2023 Last Assessment & Plan: -Keppra 1000mg BID -D/C Topiramate -D/C cEEG -MRI Brain when able - Okay to extubate from our standpoint. documented as of this encounter (statuses as of 03/16/2023) [facility] History of Past illness Narrative* Problem Noted Date Diagnosed Date Resolved Date Pneumonia 03/05/2023 03/05/2023 Hypertension 02/06/2018 03/09/2023 Seizure disorder 02/06/2018 03/09/2023 Last Assessment & Plan: -Keppra 1000mg BID -D/C Topiramate -D/C cEEG -MRI Brain when able - Okay to extubate from our standpoint. documented as of this encounter (statuses as of 03/20/2023) [facility] of Past illness Narrative* Problem Noted Date Diagnosed Date Resolved Date Pneumonia 03/05/2023 03/05/2023 Hypertension 02/06/2018 03/09/2023 Seizure disorder 02/06/2018 03/09/2023 Last Assessment & Plan: -Keppra 1000mg BID -D/C Topiramate -D/C cEEG -MRI Brain when able - Okay to extubate from our standpoint. documented as of this encounter (statuses as of 03/26/2023) [facility] of Past illness Narrative* Problem Noted Date Diagnosed Date Resolved Date Pneumonia 03/05/2023 03/05/2023 Nephrolithiasis 10/14/2020 03/29/2023 Overview: status post perc nephrolithotomy Pseudophakia of left eye 09/16/2020 Hypertension 02/06/2018 03/09/2023 Seizure disorder 02/06/2018 03/09/2023 Last Assessment & Plan: -Keppra 1000mg BID -D/C Topiramate -D/C cEEG -MRI Brain when able - Okay to extubate from our standpoint. documented as of this encounter (statuses as of 03/29/2023) [facility] of Past illness Narrative* Problem Noted Date Diagnosed Date Resolved Date Pneumonia 03/05/2023 03/05/2023 Nephrolithiasis 10/14/2020 03/29/2023 Overview: status post perc nephrolithotomy Pseudophakia of left eye 09/16/2020 Hypertension 02/06/2018 03/09/2023 Seizure disorder 02/06/2018 03/09/2023 Last Assessment & Plan: -Keppra 1000mg BID -D/C Topiramate -D/C cEEG -MRI Brain when able - Okay to extubate from our standpoint. documented as of this encounter (statuses as of 03/30/2023) [facility] of Past illness Narrative* Problem Noted Date Diagnosed Date Resolved Date Pneumonia 03/05/2023 03/05/2023 Nephrolithiasis 10/14/2020 03/29/2023 Overview: status post perc nephrolithotomy Pseudophakia of left eye 09/16/2020 Hypertension 02/06/2018 03/09/2023 Seizure disorder 02/06/2018 03/09/2023 Last Assessment & Plan: -Keppra 1000mg BID -D/C Topiramate -D/C cEEG -MRI Brain when able - Okay to extubate from our standpoint. documented as of this encounter (statuses as of 04/01/2023) [facility] of Past illness Narrative* Problem Noted Date Diagnosed Date Resolved Date Pneumonia 03/05/2023 03/05/2023 Nephrolithiasis 10/14/2020 03/29/2023 Overview: status post perc nephrolithotomy Pseudophakia of left eye 09/16/2020 Hypertension 02/06/2018 03/09/2023 Seizure disorder 02/06/2018 03/09/2023 Last Assessment & Plan: -Keppra 1000mg BID -D/C Topiramate -D/C cEEG -MRI Brain when able - Okay to extubate from our standpoint. documented as of this encounter (statuses as of 04/13/2023) [facility] of Past illness Narrative* Problem Noted Date Diagnosed Date Resolved Date Pneumonia 03/05/2023 03/05/2023 Nephrolithiasis 10/14/2020 03/29/2023 Overview: status post perc nephrolithotomy Pseudophakia of left eye 09/16/2020 Hypertension 02/06/2018 03/09/2023 Seizure disorder 02/06/2018 03/09/2023 Last Assessment & Plan: -Keppra 1000mg BID -D/C Topiramate -D/C cEEG -MRI Brain when able - Okay to extubate from our standpoint. documented as of this encounter (statuses as of 04/17/2023) [facility] of Past illness Narrative* Problem Noted Date Diagnosed Date Resolved Date Pneumonia 03/05/2023 03/05/2023 Nephrolithiasis 10/14/2020 03/29/2023 Overview: status post perc nephrolithotomy Pseudophakia of left eye 09/16/2020 Hypertension 02/06/2018 03/09/2023 Seizure disorder 02/06/2018 03/09/2023 Last Assessment & Plan: -Keppra 1000mg BID -D/C Topiramate -D/C cEEG -MRI Brain when able - Okay to extubate from our standpoint. documented as of this encounter (statuses as of 04/18/2023) [facility] of Past illness Narrative* Problem Noted Date Diagnosed Date Resolved Date Pneumonia 03/05/2023 03/05/2023 Nephrolithiasis 10/14/2020 03/29/2023 Overview: status post perc nephrolithotomy Pseudophakia of left eye 09/16/2020 Hypertension 02/06/2018 03/09/2023 Seizure disorder 02/06/2018 03/09/2023 Last Assessment & Plan: -Keppra 1000mg BID -D/C Topiramate -D/C cEEG -MRI Brain when able - Okay to extubate from our standpoint. documented as of this encounter (statuses as of 04/23/2023) [facility] of Past illness Narrative* Problem Noted Date Diagnosed Date Resolved Date Pneumonia 03/05/2023 03/05/2023 Nephrolithiasis 10/14/2020 03/29/2023 Overview: status post perc nephrolithotomy Pseudophakia of left eye 09/16/2020 Hypertension 02/06/2018 03/09/2023 Seizure disorder 02/06/2018 03/09/2023 Last Assessment & Plan: -Keppra 1000mg BID -D/C Topiramate -D/C cEEG -MRI Brain when able - Okay to extubate from our standpoint. documented as of this encounter (statuses as of 04/24/2023) [facility] of Past illness Narrative* Problem Noted Date Diagnosed Date Resolved Date Pneumonia 03/05/2023 03/05/2023 Nephrolithiasis 10/14/2020 03/29/2023 Overview: status post perc nephrolithotomy Pseudophakia of left eye 09/16/2020 Hypertension 02/06/2018 03/09/2023 Seizure disorder 02/06/2018 03/09/2023 Last Assessment & Plan: -Keppra 1000mg BID -D/C Topiramate -D/C cEEG -MRI Brain when able - Okay to extubate from our standpoint. documented as of this encounter (statuses as of 04/25/2023) [facility] of Past illness Narrative* Problem Noted Date Diagnosed Date Resolved Date Pneumonia 03/05/2023 03/05/2023 Nephrolithiasis 10/14/2020 03/29/2023 Overview: status post perc nephrolithotomy Pseudophakia of left eye 09/16/2020 Hypertension 02/06/2018 03/09/2023 Seizure disorder 02/06/2018 03/09/2023 Last Assessment & Plan: -Keppra 1000mg BID -D/C Topiramate -D/C cEEG -MRI Brain when able - Okay to extubate from our standpoint. documented as of this encounter (statuses as of 04/26/2023) [facility] of Past illness Narrative* Problem Noted Date Diagnosed Date Resolved Date Pneumonia 03/05/2023 03/05/2023 Nephrolithiasis 10/14/2020 03/29/2023 Overview: status post perc nephrolithotomy Pseudophakia of left eye 09/16/2020 Hypertension 02/06/2018 03/09/2023 Seizure disorder 02/06/2018 03/09/2023 Last Assessment & Plan: -Keppra 1000mg BID -D/C Topiramate -D/C cEEG -MRI Brain when able - Okay to extubate from our standpoint. documented as of this encounter (statuses as of 05/02/2023) [facility] of Past illness Narrative* Problem Noted Date Diagnosed Date Resolved Date Pneumonia 03/05/2023 03/05/2023 Nephrolithiasis 10/14/2020 03/29/2023 Overview: status post perc nephrolithotomy Pseudophakia of left eye 09/16/2020 Hypertension 02/06/2018 03/09/2023 Seizure disorder 02/06/2018 03/09/2023 Last Assessment & Plan: -Keppra 1000mg BID -D/C Topiramate -D/C cEEG -MRI Brain when able - Okay to extubate from our standpoint. documented as of this encounter (statuses as of 05/03/2023) [facility] of Past illness Narrative* Problem Noted Date Diagnosed Date Resolved Date Pneumonia 03/05/2023 03/05/2023 Nephrolithiasis 10/14/2020 03/29/2023 Overview: status post perc nephrolithotomy Pseudophakia of left eye 09/16/2020 Hypertension 02/06/2018 03/09/2023 Seizure disorder 02/06/2018 03/09/2023 Last Assessment & Plan: -Keppra 1000mg BID -D/C Topiramate -D/C cEEG -MRI Brain when able - Okay to extubate from our standpoint. documented as of this encounter (statuses as of 05/11/2023) [facility] Miscellaneous Notes* Telephone Encounter - Tete Coello LPN - 03/04/2023 9:49 AM EDT Pt called in stating that she has had diarrhea since last Saturday. She now has chills and abd pain that started on the left quadrant but is now on right and left. She rates the pain as a 8/10 and verysharp. She denies fever and vomiting or blood in the stool. I advised the patient that she needed to go to the ER and she was in agreement. She said that she would have to call the paramedics in order to get to the hospital. documented in this encounterUniversity Hospitals Portage [facility]08-17-2023 Miscellaneous Notes* Addendum Note - Radha Driscoll LPN - 02/21/2023 11:20 AM EDTAddended by: RADHA DRISCOLL on: 02/21/2023 11:20 AM Modules accepted: Orders * Telephone Encounter - Radha Driscoll LPN - 02/21/2023 11:15 AM EDT Patient called requesting the following refill Refill(s) Requested: Requested Prescriptions Pending Prescriptions Disp Refills lancets (ONETOUCH DELICA PLUS LANCET) 30 gauge 100 Each 11 ALLERGIES Allergen Reactions Nitroglycerin Cough Seizure Omeprazole Diarrhea Propoxyphene Other: See Comments Headache Acetaminophen GI Upset Codeine Rash Nabumetone GI Upset (home) [phone] (cell) Last Office Visit Date: 02/20/2023 Last Distance Health Visit: Visit date not found Future Appointment: Visit date not found The patients preferred pharmacy has been captured for this encounter? yes Request is for script(s) to be escript to pharmacy. Radha Drisclol LPN * Telephone Encounter - Sindy Thomas - 02/21/2023 10:37 AM EDT The patient/caregiver contacted the office, requesting refills of ONETOUCH DELICA PLUS LANCET 30 gauge. Patient prefers prescriptions to be e prescribed to [facility] pharmacy at [address] [facility][1]. Last Office Visit Date: 02/20/2023 Last Distance Health Visit: Visit date not found Future Appointment: Visit date not found Sindy Thomas documented in this encounterUniversity Hospitals Portage Medical Center08-14-2023 Miscellaneous Notes* Telephone Encounter - Di Kaur LPN - 02/18/2023 2:18 PM EDT Pt called in to return Dr. Herman phone call about EEG lab results. Wasn't able to find any notes in the chart to give pt results. Pt stated provider LVM to come in for apt so pt was transferred up front to make f/u apt. Di Kaur LPN documented in this encounterUniversity Hospitals Portage Medical Center08-09-2023 Miscellaneous Notes* Telephone Encounter - Barbara Herman DO - 02/13/2023 8:29 AM EDT Patient has requested a call for interpretation of EEG, however I have called her cell and home phone 4 times in the past week and she has not picked up. * Telephone Encounter - Lanny Robledo LPN - 02/12/2023 10:25 AM EDT Patient called requesting the following refill, as well as interpretation of her "brain scan." Please advise. Refill(s) Requested: Requested Prescriptions Pending Prescriptions Disp Refills levETIRAcetam (KEPPRA) 750 mg tablet 60 tablet 2 Sig: Take 1 tablet by mouth twice daily. ALLERGIES Allergen Reactions Nitroglycerin Cough Seizure Omeprazole Diarrhea Propoxyphene Other: See Comments Headache Acetaminophen GI Upset Codeine Rash Nabumetone GI Upset (home) [phone] (cell) Last Office Visit Date: 01/18/2023 Last [facility] Visit: Visit date not found Future Appointment: Visit date not found The patients preferred pharmacy has been captured for this encounter? not asked Request is for script(s) to be escript to pharmacy. Lanny Robledo LPN documented in this encounterUniversity Hospitals Portage Medical Center08-02-2023 Miscellaneous Notes* Telephone Encounter - Jonh Newman - 02/06/2023 9:53 AM EDT Pt called about her results from her scan [phone] Jonh Newman documented in this encounterUniversity Hospitals Portage Medical Center07-14-2023 History of Present illness Narrative* Antonio Vaughn DO - 01/18/2023 11:42 AM EDT Images from the original note were not included. [facility] Medicine Subjective Diabetes, decreased hearing and new CPAP machine. Patient states she does not like male providers. She would prefer seeing female doctor. DM2 - controlled A1c today is 7.4% in back office. Sugars in the morning are slightly higher. Taking 1000mg metformin BID, not on anything else. Component Latest Ref Rng & Units 09/14/2021 12/21/2021 08/21/2022 01/18/2023 Hemoglobin A1C (POCT) 4.2 - 5.6 % 7.4 (A) 6.9 (A) 6.7 (A) 7.4 (A) MARY Got BiPAP supplies last year. However states she needs a new machine. Her current one was ordered in 2018 and has stopped working. CPAP/BIPAP FOLLOW UP The type of sleep therapy equipment patient currently using: BiPAP The AIM usedfor sleep therapy equipment:NPC III How many hours per night does the patient use sleep therapy equipment? 3-4 How often is the patient waking up at night on average 4 times per night. Does the patient still get tired during the day? No Does the patient feel the sleep therapy equipment is beneficial: has been beneficial Settin/11 cmH2O, pressure support 3-5cm Does patient require humidification? Yes CPAP compliance issues: Any problems with mask or headgear? no, uses full face mask Pressure intolerance? No Nose/mouth dryness? No Mask related skin irritation? No Comments:none Sleep study 04/08/2019 1. Moderate obstructive sleep apnea. Respiratory events were associated with oxygen desaturations to a parth of 86.0%. This apnea-hypopnea index (AHI) may be underestimated due to the absence of recorded REM sleep in the baseline portion of the study. 2. At a Bilevel PAP setting of 16/11 cmH2O, during which sleep was recorded in the supine position, the overall apnea-hypopnea index (AHI) was normalized, snoring was eliminated, and oxygen saturation was maintained above 90%. HOWEVER, during this study, the REM related apnea-hypopnea index was not normalized and remained in the severe range on pressure settings as high as 14/9 cmH2O. 3. Abnormal sleep architecture likely due to respiratory events, PAP titration, and first night effect. RECOMMENDATIONS: Due to persistent REM related respiratory events during this study, recommend the following: Auto Bilevel PAP with max IPAP 24 cmH2O, min EPAP 11 cmH2O, and pressure support of 3-5 cmH2O, with humidification. Recommend close clinical follow up as well as PAP data download after 4 weeks of PAP use to determine if changes to the PAP settings are necessary. A standard size ResMed AirFit N10 nasal mask without chin strap was used during this study. Hearing - slight decreased hearing, but not very significant, just wanted both ears checked. No ringing, no dizziness, no headaches. No vision changes. Review of Systems: GENERAL: No weight loss, malaise or fevers. RESPIRATORY: no cough, has chronic SOB CARDIOVASCULAR: Negative for chest pain, leg swelling, hypertension, CHF or palpitations GI: No nausea, vomiting, or diarrhea The remainder of the review of systems is negative. Current Outpatient Medications Medication Sig Dispense Refill rahrafp-zyiiyhedg-nsnhbhz D3 (OYSTER SHELL CALCIUM-VITAMIN D) 500 mg-5 mcg (200 unit) per tablet TAKE 1 TABLET BY MOUTH EVERY MORNING 30 tablet 5 levETIRAcetam (KEPPRA) 750 mg tablet TAKE 1 TABLET BY MOUTH TWICE DAILY 60 tablet 2 blood sugar diagnostic (GeekChicDailyUCH VERIO TEST STRIPS) test strip 1 Strip twice daily. Use as instructed 60 Strip 11 nystatin (MYCOSTATIN) powder APPLY TOPICALLY TO AFFECTED AREAS TWICE DAILY 60 g 11 metFORMIN (GLUCOPHAGE) 1,000 mg tablet Take 1 tablet by mouth twice daily with meals. 62 tablet 11 albuterol HFA (PROVENTIL HFA, VENTOLIN HFA) 90 mcg/actuation inhaler INHALE 2 PUFFS BY MOUTH EVERY 6 HOURS INSTRUCTED NEEDED 8.5 g 11 furosemide (LASIX) 20 mg tablet Take 1 tablet by mouth once daily. 30 tablet 5 atorvastatin (LIPITOR) 80 mg tablet Take 1 tablet by mouth daily at bedtime. 30 tablet 5 cetirizine (ZYRTEC) 10 mg tablet Take 1 tablet by mouth once daily. 30 tablet 5 diclofenac (VOLTAREN) 1 % topical gel Apply 4 g to affected area four times daily as needed (Pain).450 g 2 alcohol swabs APPLY 1 APPLICATION TOPICALLY TO THE AFFECTED AREA(S) EVERY DAY 100 Each 11 Incontinence Pad, Liner, Disp pads Latex Gloves (LATEX GLOVES, LARGE) misc 1 Units once daily. 120 Each 11 mupirocin (BACTROBAN) 2 % ointment Apply 1 application to affected area three times daily. 22 g 0 ONETOUCH DELICA PLUS LANCET 30 gauge USE TWICE DAILY TO CHECK BLOOD SUGAR DIRECTED 100 Each 11 Lancets lancets Use to check Blood Glucose level twice daily. 200 Each 2 Diaper,Brief, Adult,Disposable (PREVAIL UNDERWEAR) misc 1 Units once daily. 48 Each 5 multivitamin with minerals (VISION/OPTIGEN) tablet Take 1 tablet by mouth once daily. aspirin (VALORIE CHEWABLE ASPIRIN) 81 mg chewable tablet Orally No current facility-administered medications for this visit. Objective Vitals: BP 133/71 Pulse 83 Temp 36.4 C (97.6 F) (Temporal) Resp 22 Ht 5' 2" (1.575 m) Wt 263 lb (119.3 kg) SpO2 93% BMI 48.10 kg/m PHYSICAL EXAM: General Appearance: Well appearing, alert, in no acute distress, well-hydrated, well nourished. Obese Ears: TM clear b/l, no wax Lungs: Lungs clear to auscultation. No wheezing, rhonchi, rales. decreased breath sounds b/l, speaking in full sentences Heart: RRR without murmur, gallop, or rubs. Extremities: No deformities, +1 edema of both legs, skin discoloration, clubbing or cyanosis. Good capillary refill. In wheelchair A+O x 3 Not anxious Talkative Most recent Labs/Imaging Reviewed. Component Latest Ref Rng & Units 08/15/2022 08/15/2022 08/21/2022 12/27/2022 01/18/2023 10:03 AM 11:35 AM WBC 3.70 - 11.00 k/uL 11.09 (H) RBC 3.90 - 5.20 m/uL 4.66 Hemoglobin 11.5 - 15.5 g/dL 13.9 Hematocrit 36.0 - 46.0 % 44.8 MCV 80.0 - 100.0 fL 96.1 MCH 26.0 - 34.0 pg 29.8 MCHC 30.5 - 36.0 g/dL 31.0 RDW-CV 11.5 - 15.0 % 13.8 Platelet Count 150 - 400 k/uL 241 MPV 9.0 - 12.7 fL 9.0 DTYPE Auto Glucose 74 - 99 mg/dL 123 (H) 138 (H) BUN 7 - 21 mg/dL 19 24 (H) Creatinine 0.58 - 0.96 mg/dL 0.82 0.95 Sodium 136 - 144 mmol/L 141 140 Potassium 3.7 - 5.1 mmol/L 4.3 4.4 Chloride 97 - 105 mmol/L 100 102 CO2 22 - 30 mmol/L 31 (H) 25 Anion Gap 9 - 18 mmol/L 10 13 Calcium 8.5 - 10.2 mg/dL 9.9 10.0 eGFR >=60 mL/min/1.73m 75 63 CLAIRE High Sensitivity <12 ng/L 7 8 NT Pro BNP <450 pg/mL <50 Hemoglobin A1C (POCT) 4.2 - 5.6 % 6.7 (A) 7.4 (A) Impression/Recommendations 1. MARY (obstructive sleep apnea) - ICD9: 327.23, ICD10: G47.33 (primary diagnosis) 2. Type 2 diabetes mellitus with complication, without long-term current use of insulin ([facility]) - ICD9: 250.90, ICD10: E11.8 3. Decreased hearing of both ears - ICD9: 389.9, ICD10: H91.93 4. Chronic obstructive pulmonary disease, unspecified COPD type ([facility]) - ICD9: 496, ICD10: J44.9 5. Anxiety - ICD9: 300.00, ICD10: F41.9 6. Lymphedema of both lower extremities - ICD9: 457.1, ICD10: I89.0 7. Class 3 severe obesity due to excess calories with serious comorbidity and body mass index (BMI)of 45.0 to 49.9 in adult ([facility]) - ICD9: 278.01, V85.42, ICD10: E66.01, Z68.42 1. MARY (obstructive sleep apnea) - ICD9: 327.23, ICD10: G47.33 (primary diagnosis) New bipap order. Per last titration study in 2019 - PAP THERAPY ORDER 2. Type 2 diabetes mellitus with complication, without long-term current use of insulin ([facility]) - ICD9: 250.90, ICD10: E11.8 - Controlled - Worsening control - Continue current medications, no changes today, patient admits to not adhering to her diet as strictly recently. - consider GLP1 in the future since she is morbidly obese, and diabetic if there are no contraindications. - future labs ordered. - ALBUMIN/CREAT RATIO RND UR - LIPID PANEL BASIC - HGB A1C - COMP METABOLIC PANEL 3. Decreased hearing of both ears - ICD9: 389.9, ICD10: H91.93 Ears unremarkable, may be age related. Patient declined audiology referal for testing. Ok with conversation etc. monitor 4. Chronic obstructive pulmonary disease, unspecified COPD type (HCC) - ICD9: 496, ICD10: J44.9 Add on lab Stable monitor - [id number] BL 5. Anxiety - ICD9: 300.00, ICD10: F41.9 Chronic, not formally addressed Monitor Does not like "male doctors" may have PTSD etc, consider discussing further in the future Schedule with female doctor for next visit. 6. Lymphedema of both lower extremities - ICD9: 457.1, ICD10: I89.0 Chronic, stable, compression stockings, elevation, lasix as prescribed In wheel chair, monitor 7. Class 3 severe obesity due to excess calories with serious comorbidity and body mass index (BMI)of 45.0 to 49.9 in adult (HCC) - ICD9: 278.01, V85.42, ICD10: E66.01, Z68.42 Consider GLP1 Antonio Vaughn DO Family Medicine I spent a total of 40 minutes on the date of the service which included preparing to see the patient, oxvr-ao-hjsr patient care, completing clinical documentation, obtaining and/or reviewing separately obtained history, performing a medically appropriate examination, counseling and educating the pat ient/family/caregiver, and ordering medications, tests, or procedures. [employer] may have been used in producing this note. Use clinical judgement to account for grammatical or spelling errors. documented in this encounterUniversity Hospitals Portage Medical Center07-11-2023 Miscellaneous Notes* Telephone Encounter - Jeannie Childs - 01/15/2023 9:01 AM EDT Please review and complete. Will be placed in your temp file. Thank you documented in this encounterUniversity Hospitals Portage Medical Center06-30-2023 Miscellaneous Notes* Telephone Encounter - EULALIA Craig - 01/04/2023 1:31 PM EDT Reason for Contact: returning call from patient Type of Contact: phone Present: spoke to patient via telephone Summary: Patient reported she has bedbugs.Patient advised she has contacted [facility] and theywould clean but has advised she has to throw away her suitcases, and she does not want to do that. Asked patient if she could ask her soon to front the cost of professional business analyst sales operations if she could notto help make progress.Patient reported son has advised he is coming to help but has not yet come. Patient reported feeling fine and thanked SW for callback. Plan: n/a Approximate time spent with patient: 10 minutes EULALIA Craig documented in this encounterUniversity Hospitals Portage Medical Center06-27-2023 Miscellaneous Notes* Telephone Encounter - Jonh Newman - 01/01/2023 1:38 PM EDT I got pt scheduled of her EEG on 01/25 Jonh Newman * Addendum Note - Dahiana Martin MD - 01/01/2023 12:36 PM EDTAddended by: DAHIANA MARTIN on: 01/01/2023 12:36 PM Modules accepted: Orders * Telephone Encounter - Dahiana Martin MD - 01/01/2023 12:32 PM EDT She is scheduled to see Dr. Vaughn for an appt on 01/18- no EEG is scheduled. There is a telephone encounter on 10/22 that Radha Max was able to schedule her an appointment for an EEG- which she did have scheduled on 10/26, but was then canceled. I see nothing else in Epic. I went ahead and placed an order for an EEG for the patient. Please help her schedule it again. Thanks, Dahiana Martin M.D. January 01, 2023 12:35 PM * Telephone Encounter - Jonh Newman - 01/01/2023 12:16 PM EDT Pt called about getting her EEG test done on 01/18. She said she had a paper that said she was scheduled for that Jonh Newman documented in this encounterUniversity Hospitals Portage Medical Center06-27-2023 History of Present illness Narrative* Ese Marmolejo, DPRebeka - 01/01/2023 10:04 AM EDT Chief Complaint: Diabetic nail care HPI: This is a 77 year old female presents for diabetic nail care. Patient states that feet are doing well. Patient states her blood sugar have been around the 120s. Has been using DM shoes and inserts. She reports a recent bug bed infestation at home. She relates she has noticed multiple bite larios on her feet, as well as her whole body. She also relates a dresser falling on her left big toe a week ago. No pain or issues with this currently. Does relate noticing dried blood underlying. No other pedal complaints. PCP: Tami Long, DO PAST MEDICAL HISTORY Diagnosis Date Diabetes (HCC) Hypercholesteremia Rheumatoid arthritis (HCC) : Current Outpatient Medications Medication Sig jtrfhzx-plvyjppme-jnswhrd D3 (OYSTER SHELL CALCIUM-VITAMIN D) 500 mg-5 mcg (200 unit) per tablet TAKE 1 TABLET BY MOUTH EVERY MORNING levETIRAcetam (KEPPRA) 750 mg tablet TAKE 1 TABLET BY MOUTH TWICE DAILY blood sugar diagnostic (ONETOUCH VERIO TEST STRIPS) test strip 1 Strip twice daily. Use as instructed nystatin (MYCOSTATIN) powder APPLY TOPICALLY TO AFFECTED AREAS TWICE DAILY metFORMIN (GLUCOPHAGE) 1,000 mg tablet Take 1 tablet by mouth twice daily with meals. albuterol HFA (PROVENTIL HFA, VENTOLIN HFA) 90 mcg/actuation inhaler INHALE 2 PUFFS BY MOUTH EVERY 6 HOURS INSTRUCTED NEEDED furosemide (LASIX) 20 mg tablet Take 1 tablet by mouth once daily. atorvastatin (LIPITOR) 80 mg tablet Take 1 tablet by mouth daily at bedtime. cetirizine (ZYRTEC) 10 mg tablet Take 1 tablet by mouth once daily. diclofenac (VOLTAREN) 1 % topical gel Apply 4 g to affected area four times daily as needed (Pain). alcohol swabs APPLY 1 APPLICATION TOPICALLY TO THE AFFECTED AREA(S) EVERY DAY Incontinence Pad, Liner, Disp pads Latex Gloves (LATEX GLOVES, LARGE) misc 1 Units once daily. mupirocin (BACTROBAN) 2 % ointment Apply 1 application to affected area three times daily. ONETOUCH DELICA PLUS LANCET 30 gauge USE TWICE DAILY TO CHECK BLOOD SUGAR DIRECTED Lancets lancets Use to check Blood Glucose level twice daily. Diaper,Brief, Adult,Disposable (PREVAIL UNDERWEAR) misc 1 Units once daily. multivitamin with minerals (VISION/OPTIGEN) tablet Take 1 tablet by mouth once daily. No current facility-administered medications for this visit. : ALLERGIES Allergen Reactions Nitroglycerin Cough Seizure Omeprazole Diarrhea Propoxyphene Other: See Comments Headache Acetaminophen GI Upset Codeine Rash Nabumetone GI Upset REVIEW OF SYSTEMS see tech note Physical Exam: On General Observation: Patient is a pleasant, cooperative, morbidly obese 77 year old adult female. The patient is alert and oriented to time, place and person. Patient has normal affect and mood. Presents in wheelchair today Resp 18 Ht 157.5 cm (5' 2") Wt 120.2 kg (265 lb) BMI 48.47 kg/m Vascular: DP pulses are palpable. PT pulses faintly palpation secondary to edema. CFT less than 3 seconds to all digits bilateral. Skin temperature is warm to warm from proximal to distal bilateral. Hair growth is absent. Chronic discoloration to left LE consistent with venous insuffiencey. Moderate pitting edema noted. + varicosities noted. Neuro: Light touch intact bilateral. Protective sensation intact right foot, absent to the left forefoot via Dundee Sonali 5.07 monofilament bilateral. No clonus noted. Babinski reflex not elicited bilateral. Dermatological: Skin appears well hydrated and supple. Good color, texture, turgor. Toenails 1,2,3,4,5 bilateral are elongated and thickness but nondystrophic. Subungual hematoma noted to proximal aspect of the lefthallux nail plate. Nail well adhered. Webspaces 1-4 are clean, dry, intact bilateral. No rashes, subcutaneous nodules, or open lesions noted. Hyperkeratosis noted sub 5th metatarsal head right foot. Multiple bug bite larios noted on bilateral dorsal feet and LE. Musculoskeletal/Orthopaedic: General foot morphology: rectus arch +5/5 muscle strength Dorsiflexion, Plantarflexion, Inversion, Eversion B/L ROM of the 1st MTPJ is limited without pain or crepitus bilateral. ROM of the MTJ/STJ is full without pain or crepitus bilateral. Ankle joint ROM is decreased in dorsiflexion B/L. Diffuse mild pain on palpation of the bases of digits 2-5 on the left foot. No pain to the metatarsal heads, no pain with ROM of digits 2- 5 on the right. No pain to palpation of the left hallux Hemoglobin A1C (%) Date Value 02/06/2018 6.8 Hemoglobin A1C (POCT) (%) Date Value 08/21/2022 6.7 12/21/2021 6.9 09/14/2021 7.4 06/16/2021 10.3 08/15/2020 7.2 ASSESSMENT: This 77 year old female diabetic female patient presents today with PVD/venous insufficiency, lymphedema and onychauxis bilateral feet, callus right foot. New subungual hematoma left hallux. Plan: Patient was examined and evaluated. Patient was educated on clinical and radiographic findings, diagnosis and treatment options. Patient states that she understands all that has been explained and all questions were answered to her apparent satisfaction. - Patient was educated on the complications related to diabetes particularly ocular, renal and neurological and the effects of neuropathy on pedal health - Discussed guidelines for home preventative foot care and signs and symptoms to watch for. - Advised patient on avoidance of barefoot walking and monitoring feet daily. - Continue DM shoes and inserts. - Nails 1-5 B/L were debrided in thickness and length with nail nippers without incident. q9 modifier - Advised patient to follow up in 3 months or sooner should they have any problems or concerns prior to that time. - Instructed pt to contact our office if any foot problems develop before next visit. Umu Ashraf DPM PGY3 Patient was seen, evaluated, discussed and treated with the above resident, all clayton components of the exam and treatment were reviewed. I agree with the findings and treatment plan as outlined the above note. Ese Marmolejo DPM documented in this encounterUniversity Hospitals Portage Medical Center06-26-2023 Miscellaneous Notes* Telephone Encounter - Zehra Guaman - 12/31/2022 11:44 AM EDT Please review and complete. Will be placed in your temp file. Thank you. documented in this encounterUniversity Hospitals Portage Medical Center06-23-2023 Miscellaneous Notes* Telephone Encounter - Dahiana Martin MD - 12/28/2022 11:45 AM EDT The following approved medication requests have been transmitted electronically. Requested Prescriptions Signed Prescriptions Disp Refills hocsxfc-dufzlanfb-tilsgtb D3 (OYSTER SHELL CALCIUM-VITAMIN D) 500 mg-5 mcg (200 unit) per tablet 30tablet 5 Sig: TAKE 1 TABLET BY MOUTH EVERY MORNING Authorizing Provider: DAHIANA MARTIN M.D. December 28, 2022 11:45 AM documented in this encounterUniversity Hospitals Portage Medical Center06-17-2023 Miscellaneous Notes* Telephone Encounter - Dahiana Martin MD - 12/22/2022 7:39 AM EDT The following approved medication requests have been transmitted electronically. Requested Prescriptions Signed Prescriptions Disp Refills blood sugar diagnostic (ONETOUCH VERIO TEST STRIPS) test strip 60 Strip 11 Si Strip twice daily. Use as instructed Authorizing Provider: DAHIANA MARTIN M.D. December 22, 2022 7:39 AM * Telephone Encounter - Radha Driscoll LPN - 12/21/2022 2:59 PM EDT Patient called requesting medication refill, please review pending order and advise. Radha Driscoll LPN documented in this encounterUniversity Hospitals Portage Medical Center04-20-2023 History of Present illness Narrative* Spring Nelson MD - 10/25/2022 5:02 PM EDT Attending Note I agree with the resident's findings and plan as documented and have discussed the case and management of the patient's care with the resident. I agree with the clayton elements of the history. I agree with the clayton elements of the physical exam. I reviewed the findings with the resident, . I agree with the diagnosis of Type 2 diabetes mellitus with complication, without long-term currentuse of insulin (hcc) Lymphedema of both lower extremities (primary encounter diagnosis) Morbid obesity with bmi of 45.0-49.9, adult (hcc) Shortness of breath Leg swelling and agree with the resident's plan of care. See resident's note for furthur details. * Jennifer Hawkins MD - 10/22/2022 1:15 PM EDT Images from the original note were not included. Jennifer Hawkins MD [facility] [address] [place] [address] [facility] / [address] [place] [address] Visit Date: October 22, 2022 Name: Ana Lopes Date of : 1945 MRN/E #: [id number] Chief Complaint: No chief complaint on file. Subjective Ana Lopes is a 77 year old female here with the following complaint(s): HPI Follow up DM - Patient presents to the office for DM follow up. - complaints with DM medications - last Hgb A1c 08/30 - 6.7 % on metformin Hx of seizure disorder - was admitted ~2 years ago for syncope/collapse. Was started on keppra and was informed to follow up with neurology which she has not. Per patient, she has not had any episodes since discharge. Patient states she does not like to be seen by male provider as they make her scared. Hypertension - presented with home reading and stable with SBP 130's -150's/80-90's - Her blood pressure mildly elevated at this visit. - also endorsing increase in weight from her previous visit. On lasix 20 mg daily and complaint with medication. Denies dizziness or lightheadedness at this time. Social History Tobacco Use Smoking status: Never Smokeless tobacco: Never Vaping Use Vaping Use: Never used Substance Use Topics Alcohol use: No Drug use: No ALLERGIES Allergen Reactions Nitroglycerin Cough Seizure Omeprazole Diarrhea Propoxyphene Other: See Comments Headache Acetaminophen GI Upset Codeine Rash Nabumetone GI Upset Current Outpatient Medications Medication Sig albuterol HFA (PROVENTIL HFA, VENTOLIN HFA) 90 mcg/actuation inhaler INHALE 2 PUFFS BY MOUTH EVERY 6 HOURS INSTRUCTED NEEDED levETIRAcetam (KEPPRA) 750 mg tablet Take 1 tablet by mouth twice daily. blood sugar diagnostic (ONETOUCH VERIO TEST STRIPS) test strip 1 Strip twice daily. Use as instructed furosemide (LASIX) 20 mg tablet Take 1 tablet by mouth once daily. atorvastatin (LIPITOR) 80 mg tablet Take 1 tablet by mouth daily at bedtime. cetirizine (ZYRTEC) 10 mg tablet Take 1 tablet by mouth once daily. glzvdej-rqjipindu-cinjsdj D3 (OYSTER SHELL CALCIUM-VITAMIN D) 500 mg-5 mcg (200 unit) per tablet TAKE 1 TABLET BY MOUTH EVERY MORNING diclofenac (VOLTAREN) 1 % topical gel Apply 4 g to affected area four times daily as needed (Pain). alcohol swabs APPLY 1 APPLICATION TOPICALLY TO THE AFFECTED AREA(S) EVERY DAY Incontinence Pad, Liner, Disp pads Latex Gloves (LATEX GLOVES, LARGE) misc 1 Units once daily. mupirocin (BACTROBAN) 2 % ointment Apply 1 application to affected area three times daily. ONETOUCH DELICA PLUS LANCET 30 gauge USE TWICE DAILY TO CHECK BLOOD SUGAR DIRECTED nystatin (NYSTOP) powder APPLY TOPICALLY TO AFFECTED AREA(S) two TIMES DAILY Lancets lancets Use to check Blood Glucose level twice daily. Diaper,Brief, Adult,Disposable (PREVAIL UNDERWEAR) misc 1 Units once daily. multivitamin with minerals (VISION/OPTIGEN) tablet Take 1 tablet by mouth once daily. metFORMIN (GLUCOPHAGE) 1,000 mg tablet Take 1 tablet by mouth twice daily with meals. No current facility-administered medications for this visit. I have confirmed and edited as necessary the chief complaint, medications, past medical, family andsocial histories. Objective 10/22/22 1327 BP: 168/90 BP Site: Right Arm BP Position: Sitting Pulse: 111 Temp: 36.2 C (97.1 F) TempSrc: Temporal SpO2: 90% Weight: 265 lb 6.4 oz (120.4 kg) Height: 5' 2" (1.575 m) Body mass index is 48.54 kg/m . Physical Exam Constitutional: Appearance: Normal appearance. She is obese. HENT: Head: Normocephalic and atraumatic. Cardiovascular: Rate and Rhythm: Normal rate and regular rhythm. Pulses: Normal pulses. Heart sounds: Normal heart sounds. Pulmonary: Effort: Pulmonary effort is normal. Breath sounds: Normal breath sounds. Musculoskeletal: General: Tenderness present. No swelling (2+). Cervical back: Normal range of motion and neck supple. Right lower leg: Edema present. Left lower leg: Edema present. Neurological: Mental Status: She is alert. Assessment / Plan Ana was seen today for diabetes. Diagnoses and all orders for this visit: Lymphedema of both lower extremities - BASIC METABOLIC PNL; Future - recommend to take 2 tabs (40mg) 1 week, recheck BMP and return back to her daily 20mg Lasix after. Type 2 diabetes mellitus with complication, without long-term current use of insulin ([facility]) - metFORMIN (GLUCOPHAGE) 1,000 mg tablet; Take 1 tablet by mouth twice daily with meals. No medication adjustment today. Stable Morbid obesity with BMI of 45.0-49.9, adult ([facility]) Recommend Diet changes. Patient unable to exercise.m Shortness of breath Leg swelling As stated above. No follow-ups on file. Discussed the above with the patient using shared decision-making. The patient is in agreement with the diagnostic and treatment plans. Provider: Jennifer Hawkins M.D. Precetor: Dr. Nelson Date: October 22, 2022 Time: 1:15 PM documented in this encounterUniversity Hospitals Portage Medical Center04-17-2023 Miscellaneous Notes* Telephone Encounter - Jennifer Hawkins MD - 10/22/2022 4:44 PM EDT Noted. Thank you for notifying me. She was okay seeing a male when I discussed with her if potentially no female provider. Thanks for your help. Jennifer Hawkins MD * Telephone Encounter - Rdaha Max - 10/22/2022 3:08 PM EDT Called neurology to make pt an appointment but before scheduling her for an appointment with a neurologist they told me she had to have an EEG test done so I was able to schedule that appointment forher. As for the appointment with a neurologist, pt refuses to see a male physician, the only female physicians are located in [place] at [facility] and she refused to drive there. Radha documented in this encounterUniversity Hospitals Portage Medical Center04-17-2023 Instructions* Patient Instructions* Jennifer Hawkins MD - 10/22/2022 2:33 PM EDT Increase lasix 40mg daily for 1 week and check BMP Return to 20mg lasix after 1 week of 40mg daily documented in this encounterUniversity Hospitals Portage Medical Center03-31-2023 Miscellaneous Notes* Telephone Encounter - Jeannie Childs - 10/05/2022 10:31 AM EDT Please review and complete. Will be placed in your temp file. Thank you documented in this encounterUniversity Hospitals Portage Medical Center03-28-2023 History of Present illness Narrative* Ese Marmolejo DPM - 10/02/2022 11:10 AM EDT Chief Complaint: Diabetic nail care HPI: This is a 77 year old female presents for diabetic nail care. Patient states that feet are doing well. Patient states her blood sugar have been around the 120s. Has been using DM shoes and inserts. Needs new Rx. No other pedal complaints. PCP: Tami Long DO PAST MEDICAL HISTORY Diagnosis Date Diabetes (HCC) Hypercholesteremia Rheumatoid arthritis (HCC) : Current Outpatient Medications Medication Sig albuterol HFA (PROVENTIL HFA, VENTOLIN HFA) 90 mcg/actuation inhaler INHALE 2 PUFFS BY MOUTH EVERY 6 HOURS INSTRUCTED NEEDED levETIRAcetam (KEPPRA) 750 mg tablet Take 1 tablet by mouth twice daily. blood sugar diagnostic (XillianTVTOUCH VERIO TEST STRIPS) test strip 1 Strip twice daily. Use as instructed furosemide (LASIX) 20 mg tablet Take 1 tablet by mouth once daily. atorvastatin (LIPITOR) 80 mg tablet Take 1 tablet by mouth daily at bedtime. cetirizine (ZYRTEC) 10 mg tablet Take 1 tablet by mouth once daily. hphpodu-vllrdupsi-bphphoe D3 (OYSTER SHELL CALCIUM-VITAMIN D) 500 mg-5 mcg (200 unit) per tablet TAKE 1 TABLET BY MOUTH EVERY MORNING diclofenac (VOLTAREN) 1 % topical gel Apply 4 g to affected area four times daily as needed (Pain). alcohol swabs APPLY 1 APPLICATION TOPICALLY TO THE AFFECTED AREA(S) EVERY DAY Incontinence Pad, Liner, Disp pads Latex Gloves (LATEX GLOVES, LARGE) misc 1 Units once daily. mupirocin (BACTROBAN) 2 % ointment Apply 1 application to affected area three times daily. XillianTVTOUCH DELICA PLUS LANCET 30 gauge USE TWICE DAILY TO CHECK BLOOD SUGAR DIRECTED nystatin (NYSTOP) powder APPLY TOPICALLY TO AFFECTED AREA(S) two TIMES DAILY Lancets lancets Use to check Blood Glucose level twice daily. Diaper,Brief, Adult,Disposable (PREVAIL UNDERWEAR) misc 1 Units once daily. multivitamin with minerals (VISION/OPTIGEN) tablet Take 1 tablet by mouth once daily. metFORMIN (GLUCOPHAGE) 1,000 mg tablet Take 1 tablet by mouth twice daily with meals. No current facility-administered medications for this visit. : ALLERGIES Allergen Reactions Nitroglycerin Cough Seizure Omeprazole Diarrhea Propoxyphene Other: See Comments Headache Acetaminophen GI Upset Codeine Rash Nabumetone GI Upset REVIEW OF SYSTEMS see tech note Physical Exam: On General Observation: Patient is a pleasant, cooperative, morbidly obese 77 year old adult female. The patient is alert and oriented to time, place and person. Patient has normal affect and mood. Presents in wheelchair today Resp 16 Ht 157.5 cm (5' 2") Wt 113.4 kg (250 lb) BMI 45.73 kg/m Vascular: DP pulses are palpable. PT pulses faintly palpation secondary to edema. CFT less than 3 seconds to all digits bilateral. Skin temperature is warm to warm from proximal to distal bilateral. Hair growth is absent. Chronic discoloration to left LE consistent with venous insuffiencey. Moderate pitting edema noted. + varicosities noted. Neuro: Light touch intact bilateral. Protective sensation intact right foot, absent to the left forefoot via Dundee Sonali 5.07 monofilament bilateral. No clonus noted. Babinski reflex not elicited bilateral. Dermatological: Skin appears well hydrated and supple. Good color, texture, turgor. Toenails 1,2,3,4,5 bilateral are elongated and thickness but nondystrophic. Webspaces 1-4 are clean, dry, intact bilateral. No rashes, subcutaneous nodules, or open lesions noted. Hyperkeratosis noted sub 5th metatarsal head right foot Musculoskeletal/Orthopaedic: General foot morphology: rectus arch +5/5 muscle strength Dorsiflexion, Plantarflexion, Inversion, Eversion B/L ROM of the 1st MTPJ is limited without pain or crepitus bilateral. ROM of the MTJ/STJ is full without pain or crepitus bilateral. Ankle joint ROM is decreased in dorsiflexion B/L. Diffuse mild pain on palpation of the bases of digits 2-5 on the left foot. No pain to the metatarsal heads, no pain with ROM of digits 2- 5 on the right. Hemoglobin A1C (%) Date Value 02/06/2018 6.8 Hemoglobin A1C (POCT) (%) Date Value 08/21/2022 6.7 12/21/2021 6.9 09/14/2021 7.4 06/16/2021 10.3 08/15/2020 7.2 ASSESSMENT: This 77 year old female diabetic female patient presents today with PVD/venous insufficiency, lymphedema and onychauxis bilateral feet, callus right foot. Plan: Patient was examined and evaluated. Patient was educated on clinical and radiographic findings, diagnosis and treatment options. Patient states that she understands all that has been explained and all questions were answered to her apparent satisfaction. - DM foot evaluation performed - Patient was educated on the complications related to diabetes particularly ocular, renal and neurological and the effects of neuropathy on pedal health - Discussed guidelines for home preventative foot care and signs and symptoms to watch for. - Advised patient on avoidance of barefoot walking and monitoring feet daily. - Continue DM shoes and inserts. Rx new DM shoes and inserts - Nails 1-5 B/L were debrided in thickness and length with nail nippers without incident. q9 modifier - Debrided hyperkeratosis right foot x 1 without incident. Q9 modifier - Advised patient to follow up in 3 months or sooner should they have any problems or concerns prior to that time. - Instructed pt to contact our office if any foot problems develop before next visit. Umu Ashraf DPM PGY2 Patient was seen, evaluated, discussed and treated with the above resident, all clayton components of the exam and treatment were reviewed. I agree with the findings and treatment plan as outlined the above note. Ese Marmolejo DPM * Felix Miranda - 10/02/2022 9:44 AM EDT REVIEW OF SYSTEMS: GENERAL: Well developed, well nourished. No acute distress PAIN: Negative for pain, history of chronic pain or current treatment for chronic pain conditions CARDIOVASCULAR: Negative for chest pain, leg swelling and palpations. MSK: Positive for joint swelling SKIN: Negative for lesions, rash, itching, metal sensitivity NEURO: Negative for seizure, trauma, numbness/tingling of extremities. ENDOCRINE: Positive for diabetic associated symptoms HEMATOLOGY: Negative for excessive bleeding, clots, bleeding disorders. documented in this encounterUniversity Hospitals Portage Medical Center03-21-2023 Miscellaneous Notes* Telephone Encounter - Annamaria Felix - 09/25/2022 12:02 PM EDT Referral to Neurology entered into the [facility] portal on 09/04/22. Confirmation number [id number]. Pt scheduled with Lida Hu on 09/13/22 documented in this encounterUniversity Hospitals Portage Medical Center03-17-2023 Miscellaneous Notes* Telephone Encounter - Jonh Newman - 09/21/2022 3:18 PM EDT Pt left her prescription paper for you I will place it in your inbox Jonh Newman documented in this encounterUniversity Hospitals Portage Medical Center03-17-2023 Instructions* Patient Instructions* Ana Engel DO - 09/21/2022 2:57 PM EDT 10 Anxiety Management Techniques Cluster 1: Distressing Physical Arousal 1. Manage the body Avoid alcohol, nicotine, sugar and caffeine Exercise Rule out thyroid, hormonal changes 2. Breathe: Practice diaphragmatic breathing 10 times a day for one minute 3. Mindful Awareness-changing focus off future catastrophe into the present moment by Close eyes and breathe, noticing body, intake of air, heart beats, body sensations With eyes closed, shift awareness away from body to everything they feel, smell, hear Cluster 2: Tension, Stress and Dread 4. Don't listen when worry calls your name Ignore the voice of worry, say "Stop" to yourself, or tell yourself "it's just my brain firing wrong" Remember feelings of dread based on physiological arousal lead to worry 5. Knowing, not showing anger Ask yourself, "IF I were angry, what might I be angry about?" Frequently anxiety is a result of suppressed anger 6. Have a little fun Find ways to laugh. Rent comedies, play with children, enjoy your pets Schedule re-creation time Cluster 3: Mental Anguish of Rumination 7. Turning it OFF Writing it down in a "wasteful worry" journal Imagining putting it in a jar and closing the lid 8. Persistent Interruption of rumination Persistent thought stopping and thought replacement 9. Worry well, but only once Worry through all the issues Do anything that must be done at the present time Set a time when it'll be necessary to think about the worry again Write that time on a calendar Whenever the thought pops up again, say "Stop! I already worried" 10. Learn to plan instead of worry Concretely identifying the problem Listing the problem-solving options Picking one of the options Writing out a plan of action documented in this encounterUniversity Hospitals Portage Medical Center03-17-2023 History of Present illness Narrative* Ana nEgel DO - 09/21/2022 2:17 PM EDT Images from the original note were not included. [facility] [address] [place] [address] [facility] / [address] [place], [place] [address] Visit Date: September 21, 2022 Name: Ana Lopes Date of : 1945 MRN/E #: [id number] Chief Complaint: Diabetes Subjective Ana Lopes is a 77 year old female here with the following complaint(s): HPI Lung disease Seizures Limited mobility - States that her nurse comes to the house and organizzes her medications - States that she miss her medications occasionally - Chesks blood sugar every day Lowest 107 Highest 200s - Bring it next time - States that meals [employer] wheels bring her meals, has to tell them that she cant eat certain food. Brings breakfast, lunch and dinner - States that the aid comes Saturday and Saturday and Saturday, No one comes on the Saturday. - Says her son is her support, he comes from [place] when he can. - Has a walker at home, does not have to use steps in her home - Recent fall about 2 months ago - States that she has not followed up with Neurologist, however has not had seizures in at least a year, she has had what she described as a "black out" - States that she does not want to see male providers, also states that she is afraid of hospitals because of COVID, pozo not want to go to the hospital to see her doctor Review of Systems Constitutional: Negative for activity change, fatigue and fever. Respiratory: Negative for chest tightness, shortness of breath and wheezing. Cardiovascular: Negative for chest pain and palpitations. Gastrointestinal: Negative for abdominal pain, blood in stool, constipation, diarrhea, nausea and vomiting. Genitourinary: Negative for decreased urine volume, difficulty urinating, dysuria, frequency and urgency. Neurological: Negative for dizziness, seizures, weakness and headaches. ALLERGIES Allergen Reactions Nitroglycerin Cough Seizure Omeprazole Diarrhea Propoxyphene Other: See Comments Headache Acetaminophen GI Upset Codeine Rash Nabumetone GI Upset Current Outpatient Medications Medication Sig blood sugar diagnostic (XillianTVTOUCH VERIO TEST STRIPS) test strip 1 Strip twice daily. Use as instructed furosemide (LASIX) 20 mg tablet Take 1 tablet by mouth once daily. atorvastatin (LIPITOR) 80 mg tablet Take 1 tablet by mouth daily at bedtime. cetirizine (ZYRTEC) 10 mg tablet Take 1 tablet by mouth once daily. vvwvtya-mwfexmjfq-nkwjwpv D3 (OYSTER SHELL CALCIUM-VITAMIN D) 500 mg-5 mcg (200 unit) per tablet TAKE 1 TABLET BY MOUTH EVERY MORNING metFORMIN (GLUCOPHAGE) 1,000 mg tablet Take 1 tablet by mouth twice daily with meals. diclofenac (VOLTAREN) 1 % topical gel Apply 4 g to affected area four times daily as needed (Pain). alcohol swabs APPLY 1 APPLICATION TOPICALLY TO THE AFFECTED AREA(S) EVERY DAY Incontinence Pad, Liner, Disp pads Latex Gloves (LATEX GLOVES, LARGE) misc 1 Units once daily. mupirocin (BACTROBAN) 2 % ointment Apply 1 application to affected area three times daily. ONETOUCH DELICA PLUS LANCET 30 gauge USE TWICE DAILY TO CHECK BLOOD SUGAR DIRECTED nystatin (NYSTOP) powder APPLY TOPICALLY TO AFFECTED AREA(S) two TIMES DAILY Lancets lancets Use to check Blood Glucose level twice daily. Diaper,Brief, Adult,Disposable (PREVAIL UNDERWEAR) misc 1 Units once daily. multivitamin with minerals (VISION/OPTIGEN) tablet Take 1 tablet by mouth once daily. albuterol HFA (PROVENTIL HFA, VENTOLIN HFA) 90 mcg/actuation inhaler INHALE 2 PUFFS BY MOUTH EVERY 6 HOURS INSTRUCTED NEEDED levETIRAcetam (KEPPRA) 750 mg tablet Take 1 tablet by mouth twice daily. No current facility-administered medications for this visit. Objective 09/21/22 1355 BP: 127/64 Pulse: 80 Resp: 22 Temp: 36.9 C (98.5 F) TempSrc: Temporal SpO2: 94% Height: 5' 2" (1.575 m) Body mass index is 45.73 kg/m . Physical Exam Constitutional: General: She is not in acute distress. Appearance: She is obese. She is not toxic-appearing or diaphoretic. Comments: Overall poor history, could not recall medications Physical examination limited due to body habitus Cardiovascular: Rate and Rhythm: Normal rate and regular rhythm. Pulses: Normal pulses. Heart sounds: Normal heart sounds. No murmur heard. No friction rub. No gallop. Pulmonary: Effort: Pulmonary effort is normal. No respiratory distress. Breath sounds: Normal breath sounds. No wheezing. Chest: Chest wall: No tenderness. Musculoskeletal: Comments: Sitting in wheel chair, has limited mobility Neurological: Mental Status: She is alert. Results for orders placed or performed in visit on 08/21/22 HEMOGLOBIN A1C (POC) Result Value Ref Range Hemoglobin A1C (POCT) 6.7 (A) 4.2 - 5.6 % Assessment / Plan Ana was seen today for diabetes. Diagnoses and all orders for this visit: #Seizure disorder (HCC) Patient encouraged to follow up with Neurologist Medication refills sent to pharmacy - levETIRAcetam (KEPPRA) 750 mg tablet; Take 1 tablet by mouth twice daily. #Restrictive lung disease #MARY (obstructive sleep apnea) Follow up to further discuss lung disease, needed to determine specific lung disease to allow for appropriate management - albuterol HFA (PROVENTIL HFA, VENTOLIN HFA) 90 mcg/actuation inhaler; INHALE 2 PUFFS BY MOUTH EVERY 6 HOURS INSTRUCTED NEEDED Return in about 4 weeks (around 10/19/2022) for Breathing status. Discussed the above with the patient using shared decision-making. The patient is in agreement with the diagnostic and treatment plans. Plan discussed with and approved by Attending Physician unless otherwise indicated. Medical Decision Making: Problems: Moderate: 2+ stable chronic illnesses Data: Unique source(s) for external note(s) reviewed: 3+ Unique test result(s) reviewed: 3+ Risk: Low: Low risk from testing/treatment Moderate: Drug management Medical Decision Making Level: 4 - Moderate Provider: Ana Engel DO Date: September 21, 2022 Time: 2:17 PM documented in this encounterUniversity Hospitals Portage Medical Center03-02-2023 Miscellaneous Notes* Telephone Encounter - Dahiana Martin MD - 09/06/2022 11:47 AM EST The following approved medication requests have been transmitted electronically. Requested Prescriptions Signed Prescriptions Disp Refills blood sugar diagnostic (ONETOUCH VERIO TEST STRIPS) test strip 60 Strip 11 Si Strip twice daily. Use as instructed Authorizing Provider: DAHIANA MARTIN M.D. September 06, 2022 11:47 AM * Telephone Encounter - Paloma Robertson LPN - 09/06/2022 9:19 AM EST Patient called requesting the following refill Refill(s) Requested: Requested Prescriptions Pending Prescriptions Disp Refills blood sugar diagnostic (ONETOUCH VERIO TEST STRIPS) test strip 60 Strip 11 Si Strip twice daily. Use as instructed ALLERGIES Allergen Reactions Nitroglycerin Cough Seizure Omeprazole Diarrhea Propoxyphene Other: See Comments Headache Acetaminophen GI Upset Codeine Rash Nabumetone GI Upset (home) [phone] (cell) Last Office Visit Date: 08/21/2022 Last [facility] Visit: Visit date not found Future Appointment: 09/21/2022 The patients preferred pharmacy has been captured for this encounter? yes Request is for script(s) to be escript to pharmacy. Paloma Robertson LPN documented in this encounterUniversity Hospitals Portage Medical Center03-02-2023 Miscellaneous Notes* Telephone Encounter - Olga Reddy - 09/06/2022 9:33 AM EST Spoke with patient and appointment was made Olga Reddy * Telephone Encounter - Olga Fernandez Director Of [employer] - 09/06/2022 9:33 AM EST ----- Message from Burke Bryant sent at 09/06/2022 9:06 AM EST ----- Regarding: Orthopedics / Teeman Foot: Nail Clipping / Unable To Schedule Dx Subject Line Format: Orthopedics / [Provider Name or "Open & Body Part"] / [Issue] Patient has been identified by name and Date of (Y/N): yes Patient: Ana Lopes Date of : 1945 Previous Provider Seen: danuta Body Part(s) Identified: feet Diagnosis/Reason For Visit: nail clipping Reason for the call/escalation: unable to make appt If reason for call/escalation is discharge from ED/ER or Hospital, which facility was the patient seen at: no Was an appointment scheduled (Y/N): no Person calling if other than patient: no Return call to if other than patient: no Best contact number: [phone] Thank you, Burke Bryant September 06, 2022 9:06 AM documented in this encounterUniversity Hospitals Portage Medical Center02-24-2023 Miscellaneous Notes* Telephone Encounter - Paloma Robertson LPN - 08/31/2022 2:55 PM EST Telephone call received from patient, requesting a referral to a female neurologist. Patient was given a 30 day supply for Keppra by Dr. Valle but patient states they will no longer fill medication since she has not followed up with their office. Please advise. documented in this encounterUniversity Hospitals Portage Medical Center02-24-2023 Miscellaneous Notes* Telephone Encounter - Kelvin Chavez LPN - 08/31/2022 1:35 PM EST Patient notified. She did state she will only see women doctors and is scheduling with a provider in [place] Kelvin Hansinger, NEON SIGN MAKER * Telephone Encounter - Kelvin Chavez LPN - 08/02/2022 1:32 PM EST Pharmacy [employer] message requesting the following refill Refill(s) Requested: Requested Prescriptions Pending Prescriptions Disp Refills levETIRAcetam (KEPPRA) 750 mg tablet [Pharmacy Med Name: levETIRAcetam 750 MG Tablet] 62 tablet 11 Sig: TAKE 1 TABLET BY MOUTH TWICE DAILY ALLERGIES Allergen Reactions Nitroglycerin Cough Seizure Omeprazole Diarrhea Propoxyphene Other: See Comments Headache Acetaminophen GI Upset Codeine Rash Nabumetone GI Upset (home) [phone] (cell) Last Office Visit Date: 09/12/2020 Last [facility] Visit: Visit date not found Future Appointment: Visit date not found The patients preferred pharmacy has been captured for this encounter? yes Request is for script(s) to be escript to pharmacy. Kelvin Chavez LPN documented in this encounterUniversity Hospitals Portage Medical Center02-10-2023 Miscellaneous Notes* Telephone Encounter - Zehra Guaman - 08/17/2022 7:45 AM EST Please review and complete. Will be placed in your temp file. Thank you. documented in this encounterUniversity Hospitals Portage Medical Center02-09-2023 Miscellaneous Notes* Telephone Encounter - Dahiana Martni MD - 08/16/2022 9:09 AM EST Noted. Was seen in the ED yesterday and discharged. Thanks, Dahiana Martin M.D. August 16, 2022 9:10 AM * Telephone Encounter - Ileana Chiu LPN - 08/15/2022 9:11 AM EST Patient called reporting severe chest pain to the Lt side of her chest and left arm. Audible wheezing and SOB noted through out conversation. Symptoms began 3 days ago, increasing in pain, denies VARGAS,dizziness, vision changes. Patient stated she attempted to press her life alert button but it is not functioning. Informed patient of need to contact emergency services to request transport to ED forfurther evaluation. This nurse offered to assist patient with calling emergency services, patient declined stated she will call. documented in this encounterUniversity Hospitals Portage Medical Center01-26-2023 Miscellaneous Notes* Telephone Encounter - Dahiana Martin MD - 08/02/2022 6:52 PM EST The following approved medication requests have been transmitted electronically. Requested Prescriptions Signed Prescriptions Disp Refills furosemide (LASIX) 20 mg tablet 30 tablet 5 Sig: Take 1 tablet by mouth once daily. Authorizing Provider: DAHIANA MARTIN atorvastatin (LIPITOR) 80 mg tablet 30 tablet 5 Sig: Take 1 tablet by mouth daily at bedtime. Authorizing Provider: DAHIANA MARTIN cetirizine (ZYRTEC) 10 mg tablet 30 tablet 5 Sig: Take 1 tablet by mouth once daily. Authorizing Provider: DAHIANA MARTIN M.D. August 02, 2022 6:52 PM documented in this [facility]01-13-2023 Miscellaneous Notes* Telephone Encounter - Zehra Guaman - 07/20/2022 8:23 AM EST Please review and complete. Will be placed in your temp file. Thank you. documented in this [facility]01-11-2023 Miscellaneous Notes* Telephone Encounter - EULALIA Craig - 07/18/2022 4:57 PM EST Patient left voice message regarding a problem with [employer]. Returned call, A[facility] Bodied Watchman at [facility] assisted patient to resolve. Time involved: 10 minutes EULALIA Craig documented in this encounterUniversity Hospitals Portage Medical Center12-29-2022 Miscellaneous Notes* Telephone Encounter - Dahiana Martin MD - 07/05/2022 8:21 AM EST The following approved medication requests have been transmitted electronically. Requested Prescriptions Signed Prescriptions Disp Refills yyncome-hcveaxpli-izpeshe D3 (OYSTER SHELL CALCIUM-VITAMIN D) 500 mg-5 mcg (200 unit) per tablet 90tablet 1 Sig: TAKE 1 TABLET BY MOUTH EVERY MORNING Authorizing Provider: DAHIANA MARTIN M.D. July 05, 2022 8:21 AM * Telephone Encounter - Kelvin Marks LPN - 07/04/2022 2:18 PM EST Pharmacy requesting the following refill Requested Prescriptions Pending Prescriptions Disp Refills ebvjtis-mwfxnpfup-heseohr D3 (OYSTER SHELL CALCIUM-VITAMIN D) 500 mg-5 mcg (200 unit) per tablet 30tablet 2 Sig: TAKE 1 TABLET BY MOUTH EVERY MORNING Allergies: Nitroglycerin, Omeprazole, Propoxyphene, Acetaminophen, Codeine, and Nabumetone (home) [phone] (cell) Last Visit date: 05/11/22 Future appointment: 07/12/22 The patients preferred pharmacy has been captured for this encounter? yes Request is for script(s) to be escript to pharmacy. Kelvin Marks LPN documented in this encounterUniversity Hospitals Portage Medical Center12-05-2022 Miscellaneous Notes* Telephone Encounter - EULALIA Craig - 06/11/2022 9:48 AM EST Received VM from [facility] confirming renewal of patient's bus transportation privileges. EULALIA Craig documented in this encounterUniversity Hospitals Portage Medical Center11-29-2022 Miscellaneous Notes* Telephone Encounter - EULALIA Craig - 06/05/2022 5:44 PM EST Received call from Rosario Lopes on 06/04/22 anmd 06/05/ health aide Need to renew free transportation Wants [employer] meals Called patient to confirm receipt of voice message and that on Saturday we will work together to get what she needs. Time involved: 5 minutes EULALIA Craig documented in this encounterUniversity Hospitals Portage Medical Center10-28-2022 Miscellaneous Notes* Telephone Encounter - Dahiana Martin MD - 05/04/2022 10:57 AM EDT The following approved medication requests have been transmitted electronically. Requested Prescriptions Pending Prescriptions Disp Refills atorvastatin (LIPITOR) 80 mg tablet 30 tablet 2 Sig: Take 1 tablet by mouth daily at bedtime. Dahiana Matrin M.D. May 04, 2022 10:58 AM documented in this [facility]10-28-2022 Miscellaneous Notes* Telephone Encounter - Dahiana Martin MD - 05/04/2022 8:59 AM EDT The following approved medication requests have been transmitted electronically. Requested Prescriptions Refused Prescriptions Disp Refills zwrqlir-qtsjoczrm-mqlkfra D3 (OYSTER SHELL CALCIUM-VITAMIN D) 500 mg-5 mcg (200 unit) per tablet 30tablet 4 Sig: Pt is only taking once daily. Refused By: DAHIANA MARTIN Reason for Refusal: Records indicate that there is a valid prescription at the pharmacy Dahiana Martin M.D. May 04, 2022 8:59 AM * Telephone Encounter - Marcie Ryan LPN - 05/03/2022 8:57 AM EDT Patient called requesting the following refill Refill(s) Requested: Requested Prescriptions Pending Prescriptions Disp Refills exzybyi-ngmqagqdz-jafhqfz D3 (OYSTER SHELL CALCIUM-VITAMIN D) 500 mg-5 mcg (200 unit) per tablet 30tablet 4 Sig: Pt is only taking once daily. ALLERGIES Allergen Reactions Nitroglycerin Cough Seizure Omeprazole Diarrhea Propoxyphene Other: See Comments Headache Acetaminophen GI Upset Codeine Rash Nabumetone GI Upset (home) [phone] (cell) Last Office Visit Date: 04/04/2022 Last [facility] Visit: Visit date not found Future Appointment: 05/11/2022 The patients preferred pharmacy has been captured for this encounter? yes Request is for script(s) to be escript to pharmacy. Marcie Ryan LPN documented in this encounterUniversity Hospitals Portage Medical Center10-28-2022 Miscellaneous Notes* Telephone Encounter - Dahiana Martin MD - 05/04/2022 8:11 AM EDT She has a poor understanding of what she takes and doesn't take. I can refill it for now and clarify with her the next time I see her what she takes. Thanks! The following approved medication requests have been transmitted electronically. Requested Prescriptions Signed Prescriptions Disp Refills gnnngiv-jaepofskl-kzjvoah D3 (OYSTER SHELL CALCIUM-VITAMIN D) 500 mg-5 mcg (200 unit) per tablet 30tablet 2 Sig: TAKE 1 TABLET BY MOUTH EVERY MORNING Authorizing Provider: DAHIANA MARTIN M.D. May 04, 2022 8:11 AM * Telephone Encounter - Tete Coello LPN - 05/01/2022 11:20 AM EDT Pt called and requested this medication but it was on the discontinued list. Pt insists that she isstill taking it. Please review and advise. documented in this encounterUniversity Hospitals Portage Medical Center10-26-2022 Miscellaneous Notes* Telephone Encounter - Paloma Robertson LPN - 05/02/2022 3:24 PM EDT Telephone call to patient to follow up on concerns for tremor. Patient reports she has been experiencing diarrhea and bilateral hand tremors x 3 days. Patient states the tremor is intermittent. Patient denies weakness in bilateral hands or lower extremities. Patient denies CP, VARGAS, palpitations, dizziness, decreased appetite, fever, or slurred speech. Patient monitoring BS and states she has been running in 120's. Scheduled for acute appointment, advised if symptoms worsen if patient advised to follow up in ED for evaluation. * Telephone Encounter - Paloma Robertson LPN - 05/02/2022 3:18 PM EDT Images from the original note were not included. EULALIA Davenport MD; [facility] Clinical Pool 31 minutes ago (2:47 PM) CG Patient reports she has been trembling/shaky for the past three days and would like to speak with aprofessional about it. Thanks * Telephone Encounter - EULALIA Craig - 05/02/2022 2:40 PM EDT Outcall to patient. Patient read letter from [employer] - ). Letter asks patient if she wants to switch medical plans. Patient wants to remain with [facility]. Open enrollment is between May 08 and May. Reiterated that transportation expires at end of May. Patient will call me and so she can re-enroll herself with my assistance. Time involved: 9 minutes EULALIA Craig * Telephone Encounter - EULALIA Craig - 05/02/2022 12:07 PM EDT Reason for Contact: [place] of Transportation Type of Contact: Phone Present: spoke to patient via telephone Summary: Patient called to report she got a letter to renew her transportation. SW reviewed prior notes and shared that coverage was slated to end on 06/06/22. Patient reported feeling shaky for past three days . She will call office and I would report to themedical staff. Patient would like a call back. Plan: Patient will call later in afternoon after finding letter to confirm end date of transporation services. Approximate time spent with patient: 5 minutes EULALIA Craig documented in this encounterUniversity Hospitals Portage Medical Center10-06-2022 Miscellaneous Notes* Telephone Encounter - EULALIA Craig - 04/12/2022 3:40 PM EDT Reason for Contact: Returning call Type of Contact: Phone Present: spoke to patient via telephone Summary: Patient wanted to ensure her land line number was updated in system to [phone]. Patient discussed recent appliances broken and this SW discussed safety precautions and removal (microwave and toaster oven). Patient reports having discontinued [employer] because the food was too spicy and is cooking for herself currently. Patient confirmed having eaten breakfast and lunch and that she does ok cooking for herself. Plan: Patient will see this SW in May on an upcoming appt. Approximate time spent with patient: 12 minutes EULALIA Craig * Telephone Encounter - EULALIA Craig - 04/12/2022 3:39 PM EDT Patient called to provide new landline number. (04/11/22) Requested a call back. EULALIA Craig documented in this encounterUniversity Hospitals Portage Medical Center10-04-2022 Miscellaneous Notes* Telephone Encounter - Zehra Guaman - 04/10/2022 12:00 PM EDT Please review and complete. Will be placed in your temp file. Thank you. documented in this encounterUniversity Hospitals Portage Medical Center09-28-2022 Nurse Note* Kelvin Marks LPN - 04/04/2022 1:58 PM EDT Influenza virus vaccine given as ordered. Kelvin Marks LPN documented in this encounterUniversity Hospitals Portage Medical Center09-28-2022 Miscellaneous Notes* Telephone Encounter - Idalia Perez LPN - 04/04/2022 11:47 AM EDT Refill(s) Requested: Requested Prescriptions Pending Prescriptions Disp Refills cetirizine (ZYRTEC) 10 mg tablet [Pharmacy Med Name: Cetirizine HCl 10 MG Tablet] 31 tablet 11 Sig: TAKE 1 TABLET BY MOUTH EVERY DAY furosemide (LASIX) 20 mg tablet [Pharmacy Med Name: Furosemide 20 MG Tablet] 31 tablet 11 Sig: TAKE 1 TABLET BY MOUTH EVERY DAY ALLERGIES Allergen Reactions Nitroglycerin Cough Seizure Omeprazole Diarrhea Propoxyphene Other: See Comments Headache Acetaminophen GI Upset Codeine Rash Nabumetone GI Upset (home) [phone] (work) [phone] (cell) Last Office Visit Date: 02/26/2022 Last [facility] Visit: Visit date not found Future Appointment: 04/04/2022 The patients preferred pharmacy has been captured for this encounter? yes Request is for script(s) to be escript to pharmacy. Ana Friedman LPN documented in this encounterUniversity Hospitals Portage Medical Center09-16-2022 Miscellaneous Notes* Telephone Encounter - EULALIA Craig - 03/23/2022 1:38 PM EDT Reason for Contact: Patient called to update her telephone number in our system Type of Contact: phone Present: spoke to patient via telephone Summary: Patient is changing her home number (see "work phone") and it will take effect in April.Meanwhile the home phone number is functioning. Cell phone number remains unchanged. Plan: none Approximate time spent with patient:: 5 minutes EULALIA Craig documented in this encounterUniversity Hospitals Portage Medical Center09-08-2022 Miscellaneous Notes* Telephone Encounter - EULALIA Craig - 03/15/2022 9:24 AM EDT Made outcall to patient to provide update. She will make an appointment for the end of the month. Time involved: 5 minutes EULALIA Craig * Telephone Encounter - EULALIA Craig - 03/15/2022 9:21 AM EDT [employer] called to provide information. This SW was able to renew free medical visit transportation. Patient is good as of 03/15/2022 through 06/06/2022 Patient should call last week of May to renew and leave her first and last name, last 4 of social security and date of to renew EVERY THREE MONTHS due to My Care Plan she has. Time involved: 5 minutes EULALIA Craig * Telephone Encounter - EULALIA Craig - 03/15/2022 8:40 AM EDT Junior, message from Mrs. Lopes. Jf contacted her that she does not have rides. This SW contacted [facility]- fax was not received but patient has ADA through 2024. It is NET she may not have which would be covered by [facility] which covers the cost in full of medical visits. Currently Medical visits will cost $2.00 and Non Medical $2.50. Contacted NET: [phone] Left vm with direct contact details Contacting patient: Patient indicates she didn't know that NET was covering the free rides. Patient authorized this sw to refile if they allow me over phone/ Patient indicated she wants only female docotrs and keeps getting men. This SW advised I would contact the head of the office to ensure this happens. Also encouraged patient to make a point of this when she makes appointments, documented in this encounterUniversity Hospitals Portage Medical Center09-06-2022 Miscellaneous Notes* Telephone Encounter - Dahiana Martin MD - 03/13/2022 11:38 AM EDT The following approved medication requests have been transmitted electronically. Requested Prescriptions Pending Prescriptions Disp Refills alcohol swabs 100 Each 11 Sig: APPLY 1 APPLICATION TOPICALLY TO THE AFFECTED AREA(S) EVERY DAY Dahiana Martin M.D. March 13, 2022 11:38 AM * Telephone Encounter - Ileana Chiu LPN - 03/13/2022 8:36 AM EDT Pharmacy faxed requesting the following refill Refill(s) Requested: Requested Prescriptions Pending Prescriptions Disp Refills alcohol swabs 100 Each 11 ALLERGIES Allergen Reactions Nitroglycerin Cough Seizure Omeprazole Diarrhea Propoxyphene Other: See Comments Headache Acetaminophen GI Upset Codeine Rash Nabumetone GI Upset (home) [phone] (cell) Last Office Visit Date: 02/26/2022 Last [facility] Visit: Visit date not found Future Appointment: Visit date not found The patients preferred pharmacy has been captured for this encounter? yes Request is for script(s) to be escript to pharmacy. Ileana Chiu LPN documented in this encounterUniversity Hospitals Portage Medical Center08-26-2022 Miscellaneous Notes* Telephone Encounter - Dahiana Martin MD - 03/02/2022 3:26 PM EDT Called patient- verified name & . Discussed results of XR that did not show any fracture but did show some arthritic changes. She hadno further questions. Dahiana Martin M.D. March 02, 2022 3:52 PM documented in this encounterUniversity Hospitals Portage Medical Center08-25-2022 Miscellaneous Notes* [facility] - RT Nataliya(R) - 03/01/2022 11:15 AM EDT Radiology Service Progress Note PATIENT NAME: Ana Lopes DATE OF SERVICE: March 01, 2022 TIME: 11:49 AM PATIENT IDENTITY VERIFICATION COMPLETED USING TWO (2) IDENTIFIERS: Name and Date of confirmedby patient verbally and Name and Date of confirmed by identification band. FALL SCREENING: Has the patient had 2 falls in the last year or 1 fall with injury or currently using an Ambulatory Assistive Device (Walker, Cane, Wheelchair, Crutches, etc.)? Yes, Patient High Riskfor Falls What interventions were put in place to prevent falls during this visit? Yellow "Falls Risk Wristband" Applied, Instructed Patient to Remain Seated (Not on Exam Table) Until Exam, and Increased Observations by Caregivers PATIENT GENDER DATA: Female. status: : No status: NO. PATIENT RELEVANT IMPLANT DATA REVIEWED: Not Applicable RADIOLOGY DEPARTMENT: General X-ray: Exam(s) Completed: Lower Extremity X- Ray(s): Foot, Left PERIPHERAL IV DATA: Not applicable SIGNED BY: RT Angeline(R) March 01, 2022 11:49 AM documented in this encounterUniversity Hospitals Portage Medical Center08-23-2022 Miscellaneous Notes* Telephone Encounter - EULALIA Craig - 02/27/2022 10:53 AM EDT SCAT APPLICATION APPT SCHEDULED 03/01/2022 AT 1PM documented in this encounterUniversity Hospitals Portage Medical Center08-22-2022 History of Present illness Narrative* Fernando Zelaya MD - 02/26/2022 5:02 PM EDT Attending Note I confirm the clayton elements of the history. I confirm the clayton elements of the physical exam. I reviewed the findings with the resident. I confirm the diagnosis of Fall, subsequent encounter (primary encounter diagnosis) Pain of left great toe Stress incontinence and agree with the resident's plan of care. See resident's note for furthur details. Fernando Zelaya MD * Dahiana Martin MD - 02/26/2022 2:40 PM EDT Dahiana Martin M.D. [facility] Medicine ([facility]) Outpatient Office Note 1 [facility] / [address] [place], [place] [address] Visit Date: February 22, 2022 Name: Ana Lopes Date of : 1945 MRN/E #: [id number] Subjective Ana Lopes is a 76 year old female here today to discuss ED follow up. Summary of ED visit 02/02/22: Landed on left knee- knee and hip XR neg, ambulated at baseline discharged home - OV 02/09/22: MARY- CPAP/BIPAP Supplies ordered, HTN- most likely 2/2 MARY- refused meds ED follow up - Knee pain resolved - But also landed on toe, and it hurts - No redness - Fall was mechanical in nature after she was changing incontinence pads on her bed - Bruised her left knee and right leg, but have since resolved - No fevers, chills - Eating and drinking well - Okay to walk in certain shoes - Denies lightheadedness/dizziness Social History Tobacco Use Smoking status: Never Smokeless tobacco: Never Vaping Use Vaping Use: Never used Substance Use Topics Alcohol use: No Drug use: No ALLERGIES Allergen Reactions Nitroglycerin Cough Seizure Omeprazole Diarrhea Propoxyphene Other: See Comments Headache Acetaminophen GI Upset Codeine Rash Nabumetone GI Upset Current Outpatient Medications Medication Sig calcium carbonate (TUMS 500 ORAL) Take by mouth. ergocalciferol, vitamin D2, (VITAMIN D2 ORAL) Take by mouth. Incontinence Pad, Liner, Disp pads atorvastatin (LIPITOR) 80 mg tablet Take 1 tablet by mouth daily at bedtime. mupirocin (BACTROBAN) 2 % ointment Apply 1 application to affected area three times daily. ONETOUCH DELICA PLUS LANCET 30 gauge USE TWICE DAILY TO CHECK BLOOD SUGAR DIRECTED nystatin (NYSTOP) powder APPLY TOPICALLY TO AFFECTED AREA(S) two TIMES DAILY metFORMIN (GLUCOPHAGE) 1,000 mg tablet TAKE 1 TABLET BY MOUTH TWICE DAILY WITH MEALS levETIRAcetam (KEPPRA) 750 mg tablet TAKE 1 TABLET BY MOUTH TWICE DAILY blood sugar diagnostic (ONETOUCH VERIO TEST STRIPS) test strip 1 Strip twice daily. Use as instructed Lancets lancets Use to check Blood Glucose level twice daily. cetirizine (ZYRTEC) 10 mg tablet Take 1 tablet by mouth once daily. furosemide (LASIX) 20 mg tablet Take 1 tablet by mouth once daily. alcohol swabs APPLY 1 APPLICATION TOPICALLY TO THE AFFECTED AREA(S) EVERY DAY albuterol HFA (PROVENTIL HFA, VENTOLIN HFA) 90 mcg/actuation inhaler INHALE 2 PUFFS BY MOUTH EVERY 6 HOURS INSTRUCTED NEEDED Diaper,Brief, Adult,Disposable (PREVAIL UNDERWEAR) misc 1 Units once daily. multivitamin with minerals (VISION/OPTIGEN) tablet Take 1 tablet by mouth once daily. diclofenac (VOLTAREN) 1 % topical gel Latex Gloves (LATEX GLOVES, LARGE) misc 1 Units once daily. No current facility-administered medications for this visit. I have confirmed and edited as necessary the chief complaint, medications, past medical, family andsocial histories. Objective 02/26/22 1429 02/26/22 1456 BP: 161/70 142/80 Pulse: 78 Resp: 16 Temp: 36.2 C (97.2 F) TempSrc: Temporal Height: 5' 2" (1.575 m) Body mass index is 51.76 kg/m . Physical Exam Vitals and nursing note reviewed. Constitutional: General: She is not in acute distress. Appearance: Normal appearance. She is not ill-appearing. HENT: Head: Normocephalic and atraumatic. Cardiovascular: Rate and Rhythm: Normal rate. Pulmonary: Effort: Pulmonary effort is normal. Musculoskeletal: Comments: Minimal swelling with TTP noted over left great toe. No redness or heat. Full ROM of ankle and 5/5 strength of foot. No bruising noted over either lower extremity. Skin: General: Skin is warm and dry. Neurological: General: No focal deficit present. Mental Status: She is alert. Mental status is at baseline. Psychiatric: Mood and Affect: Mood normal. Behavior: Behavior normal. Results for orders placed or performed in visit on 12/21/21 HEMOGLOBIN A1C (POC) Result Value Ref Range Hemoglobin A1C (POCT) 6.9 (A) 4.2 - 5.6 % Assessment & Plan ASSESSMENT/PLAN: 1. Fall, subsequent encounter - ICD9: V58.89, E888.9, ICD10: W19.XXXD (primary diagnosis) - Mechanical in nature. Denies any lightheadedness/dizziness - Lower extremities healed well- landed on left knee, imaging normal in the ED. Also hit left greattoe which was not addressed then - Continues to have pain in the left great toe. Will order XR to further evaluate for any fracture,though not likely given mostly benign exam - Educated to take Tylenol or Ibuprofen for pain relief - XR FOOT GENERAL 3V AP/LAT/OBL LEFT 2. Pain of left great toe - ICD9: 729.5, ICD10: M79.675 - See above 3. Stress incontinence - ICD9: [id number], ICD10: N39.3 - Per patient request - LATEX GLOVES Return in about 4 weeks (around 03/26/2022) for Physical. Discussed the above with the patient and my preceptor using shared decision-making. The patient is in agreement with the diagnostic and treatment plans. Provider: Dahiana Martin MD Date: 02/22/2022 Time: 5:13 PM documented in this encounterUniversity Hospitals Portage Medical Center08-18-2022 Miscellaneous Notes* Telephone Encounter - EULALIA Craig - 02/22/2022 2:16 PM EDT Reason for Contact: Living Will Type of Contact: FACE TO FACE Present: spoke to patient in person and accompanied by son Chucky. Summary: This SW discussed with patient and son the meaning of The Living Will. Patient remains undecided about making this decision at this time. Patient is wanting to change financial power of trust and estates attorney and beneficiary information on an insurance policy. Supported family by providing Radiological Health Specialist contact information. Patient's son volunteered to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 seizures or tremors PHYSICAL EXAM: 12/21/21 1117 BP: 150/76 Pulse: 105 Resp: 16 Temp: 36.1 C (97 F) TempSrc: Temporal SpO2: 94% Height: 5' 2" (1.575 m) General: Elderly obese woman in no acute distress Eyes: No exudates, conjunctiva normal HENT: Normocephalic, no nasal discharge Resp: Clear to auscultation bilaterally, Normal effort Heart: Regular rate and rhythm, no murmur appreciated Abdomen: Non-tender, non-distended Neurologic: Grossly normal sensation Musculoskeletal: Normal ROM Skin: Warm and dry Laboratory Testing: Most recent labs reviewed. Imaging: Most recent imaging reviewed. ASSESSMENT/PLAN: 1. Diarrhea, unspecified type - ICD9: 787.91, ICD10: R19.7 (primary diagnosis) - Unclear etiology. May be related to metformin, although no recent changes in dosage. Now chronic,so will check stool studies. - Advised continued supportive care including hydration - CRYPTOSPORIDIUM AND GIARDIA ANTIGENS BY EIA - STOOL CULTURE/EIA - C. DIFFICILE PCR 2. Type 2 diabetes mellitus without retinopathy (HCC) - ICD9: 250.00, ICD10: E11.9 - Controlled, A1c 6.9 - Continue current medications - If stool studies normal above, consider decreasing dose metformin 3. Stress incontinence - ICD9: [id number], ICD10: N39.3 - Confirmed patient has incontinence supplies - Reviewed form with patient, which was a patient/insurance form not a physician form Elise Wan DO documented in this encounterUniversity Hospitals Portage Medical Center06-06-2022 Miscellaneous Notes* Telephone Encounter - Paloma Robertson LPN - 12/11/2021 2:06 PM EDT Telephone call received from patient states she has been experiencing increased dizziness and shakiness. Patient states her BS have been running 100- 140s. Patient taking Metformin 1000 mg tablet twice daily. Patient's last A1C was 7.4 on 09/14/21, patient was previously at 10.3% on 06/16/21. Patient was transferred to dental front office assistant for a follow up appointment. Patient also needs a face to face to discuss incontinence supplies. documented in this encounterUniversity [facility]als [facility]06-01-2022 Miscellaneous Notes* Telephone Encounter - Ileana Chiu LPN - 12/06/2021 2:37 PM EDT Pharmacy called requesting the following refill Refill(s) Requested: Pending Prescriptions Disp Refills NYSTATIN 100,000 UNIT/GRAM TOPICAL POWDER 60 g 11 Sig: APPLY TOPICALLY TO AFFECTED AREA(S) two TIMES DAILY ANDREA: No ALLERGIES Allergen Reactions Nitroglycerin Cough Seizure Omeprazole Diarrhea Propoxyphene Other: See Comments Headache Acetaminophen GI Upset Codeine Rash Nabumetone GI Upset (home) [phone] (cell) Last Office Visit Date: 09/14/2021 Last [facility] Visit: Visit date not found Future Appointment: 12/08/2021 The patients preferred pharmacy has been captured for this encounter? yes Request is for script(s) to be escript to pharmacy. Ileana Chiu LPN documented in this encounterUniversity Hospitals [facility]05-11-2022 Miscellaneous Notes* Telephone Encounter - Elise Wan DO - 11/15/2021 2:32 PM EDT [employer] forms were completed 06/26/2021 - see scanned documents. If she needs updated forms completed, she needs to make an appointment to get them completed in the office. It can be with any provider. Elise Wan DO * Telephone Encounter - Sindy Thomas - 11/13/2021 9:59 AM EDT Patient called and is asking you to call [facility] to get her ride reinstated @[phone] as it will come to an end the end of November. She received a letter stating so. I told her there probably is a form for Dr. Wan to complete and she advised me I was wrong! Thank you, Sindy Thomas documented in this encounterUniversity Hospitals [facility]04-26-2022 History of Present illness Narrative* Ese Marmolejo, DPM - 10/31/2021 9:26 AM EDT Chief Complaint: Diabetic nail care HPI: This is a 76 year old female presents for diabetic nail care. Patient states that feet are doing well. Patient states her blood sugar have been around the 140s. Has been using DM shoes and inserts. No other pedal complaints. Spring Nelson MD: PAST MEDICAL HISTORY Diagnosis Date Diabetes (HCC) Rheumatoid arthritis (HCC) : Current Outpatient Medications Medication Sig levETIRAcetam (KEPPRA) 750 mg tablet TAKE 1 TABLET BY MOUTH TWICE DAILY blood sugar diagnostic (ONETOUCH VERIO TEST STRIPS) test strip 1 Strip twice daily. Use as instructed Lancets lancets Use to check Blood Glucose level twice daily. Incontinence Pad, Liner, Disp (BLADDER CONTROL PAD EXTRA PLUS) pads Change pad 4 times daily as needed cetirizine (ZYRTEC) 10 mg tablet Take 1 tablet by mouth once daily. furosemide (LASIX) 20 mg tablet Take 1 tablet by mouth once daily. glucosamine/msm/chondroit sulf (GLUCOSAMINE [id number] ORAL) Take by mouth once daily. MEDICATION, NON-DATABASE once daily. Prevagen alcohol swabs APPLY 1 APPLICATION TOPICALLY TO THE AFFECTED AREA(S) EVERY DAY qywwhog-tntbtkhwl-naeciyu D3 (OYSTER SHELL CALCIUM-VITAMIN D) 500 mg(1,250mg) - 200 unit per tablet TAKE 1 TABLET BY MOUTH EVERY MORNING atorvastatin (LIPITOR) 80 mg tablet TAKE 1 TABLET BY MOUTH AT BEDTIME PULSE OXIMETER CONTEC 1 Piece once daily. Check oxygen saturation when feeling dizzy or short of breath. If O2< 88%, please call the office. albuterol HFA (PROVENTIL HFA, VENTOLIN HFA) 90 mcg/actuation inhaler INHALE 2 PUFFS BY MOUTH EVERY 6 HOURS INSTRUCTED NEEDED nystatin (NYSTOP) powder APPLY TOPICALLY TO AFFECTED AREA(S) two TIMES DAILY DL-Vitamin E Acetate oil Apply 1 application to affected area once daily. prednisoLONE acetate (PRED FORTE, ECONOPRED PLUS) 1 % ophthalmic suspension Use 1 Drop in the left eye four times daily. Diaper,Brief, Adult,Disposable (PREVAIL UNDERWEAR) misc 1 Units once daily. Incontinence Pad, Liner, Disp (PREVAIL PADS) pads 1 Units once daily. fluticasone (FLONASE) 50 mcg/actuation nasal spray USE 1 SPRAY IN EACH NOSTRIL EVERY DAY alpha tocopheryl acetate (VITAMIN E) 100 unit capsule Take 100 Units by mouth once daily. multivitamin with minerals (HAIR,SKIN AND NAILS) tablet Take 1 tablet by mouth once daily. propylene glycol (SYSTANE BALANCE) 0.6 % drop Use 2 Drops in the right eye once daily. aspirin, enteric coated (ASPIRIN, ENTERIC COATED) 81 mg EC tablet Take 81 mg by mouth once daily. metFORMIN (GLUCOPHAGE) 1,000 mg tablet TAKE 1 TABLET BY MOUTH TWICE DAILY WITH MEALS No current facility-administered medications for this visit. : ALLERGIES Allergen Reactions Nitroglycerin Cough Seizure Omeprazole Diarrhea Propoxyphene Other: See Comments Headache Acetaminophen GI Upset Codeine Rash Nabumetone GI Upset REVIEW OF SYSTEMS see tech note Physical Exam: On General Observation: Patient is a pleasant, cooperative, morbidly obese 76 year old adult female. The patient is alert and oriented to time, place and person. Patient has normal affect and mood. Presents in wheelchair today Resp 16 Ht 157.5 cm (5' 2") Wt 120.7 kg (266 lb) BMI 48.65 kg/m Vascular: DP pulses are palpable. PT pulses faintly palpation secondary to edema. CFT less than 3 seconds to all digits bilateral. Skin temperature is warm to warm from proximal to distal bilateral. Hair growth is absent. Chronic discoloration to left LE consistent with venous insuffiencey. Moderate pitting edema noted. + varicosities noted. Neuro: Light touch intact bilateral. Protective sensation intact to arch and heel on the right and dorsum of the foot bilaterally but absent to remaining pedal sites bilaterally via Dundee Sonali 5.07 monofilament bilateral. No clonus noted. Babinski reflex not elicited bilateral. Dermatological: Skin appears well hydrated and supple. Good color, texture, turgor. Toenails 1,2,3,4,5 bilateral are elongated and thickness but nondystrophic. Webspaces 1-4 are clean, dry, intact bilateral. No rashes, subcutaneous nodules, or open lesions noted. Hyperkeratosis noted sub 5th metatarsal head right foot Musculoskeletal/Orthopaedic: General foot morphology: rectus arch +5/5 muscle strength Dorsiflexion, Plantarflexion, Inversion, Eversion B/L ROM of the 1st MTPJ is limited without pain or crepitus bilateral. ROM of the MTJ/STJ is full without pain or crepitus bilateral. Ankle joint ROM is decreased in dorsiflexion B/L. Diffuse mild pain on palpation of the bases of digits 2-5 on the left foot. No pain to the metatarsal heads, no pain with ROM of digits 2- 5 on the right. Hemoglobin A1C (%) Date Value 02/06/2018 6.8 Hemoglobin A1C (POCT) (%) Date Value 09/14/2021 7.4 06/16/2021 10.3 08/15/2020 7.2 HGBA1C (%) Date Value 01/07/2020 6.8 05/12/2019 5.6 09/18/2018 6.8 05/07/2018 7.2 ASSESSMENT: This 76 year old female diabetic female patient presents today with PVD/venous insufficiency, lymphedema and onychauxis bilateral feet, callus right foot. Plan: Patient was examined and evaluated. Patient was educated on clinical and radiographic findings, diagnosis and treatment options. Patient states that she understands all that has been explained and all questions were answered to her apparent satisfaction. - Patient was educated on the complications related to diabetes particularly ocular, renal and neurological and the effects of neuropathy on pedal health - Discussed guidelines for home preventative foot care and signs and symptoms to watch for. - Advised patient on avoidance of barefoot walking and monitoring feet daily. - Continue DM shoes and inserts - Nails 1-5 B/L were debrided in thickness and length with nail nippers without incident. q9 modifier - Debrided hyperkeratosis right foot x 1 without incident. Q9 modifier - Advised patient to follow up in 3 months or sooner should they have any problems or concerns prior to that time. - Instructed pt to contact our office if any foot problems develop before next visit. Umu Ashraf DPM PGY2 Patient was seen, evaluated, discussed and treated with the above resident, all clayton components of the exam and treatment were reviewed. I agree with the findings and treatment plan as outlined the above note. Ese Marmolejo DPM * Ese Marmolejo DPM - 10/31/2021 8:49 AM EDT REVIEW OF SYSTEMS: GENERAL: Well developed, well nourished. No acute distress PAIN: Negative for pain, history of chronic pain or current treatment for chronic pain conditions CARDIOVASCULAR: Negative for chest pain, leg swelling and palpations. MSK: Positive for joint swelling SKIN: Negative for lesions, rash, itching, metal sensitivity NEURO: Negative for seizure, trauma, numbness/tingling of extremities. ENDOCRINE: Positive for diabetic associated symptoms HEMATOLOGY: Negative for excessive bleeding, clots, bleeding disorders. documented in this encounterUniversity [facility]als [facility]04-11-2022 Miscellaneous Notes* Telephone Encounter - Zehra Guaman - 10/16/2021 8:59 AM EDT Please review and complete. Will be placed in your temp file. Thank you. [facility]* Diagnosis Onychauxis- Primary Other specified disease of nail Lymphedema of both lower extremities PVD (peripheral vascular disease) (HCC) Peripheral vascular disease, unspecified Swelling of both lower extremities Type 2 diabetes mellitus with complication, without long-term current use of insulin ([facility]) Callus Corns and callosities documented in this encounter [facility]* Diagnosis Diarrhea, unspecified type- Primary Type 2 diabetes mellitus without retinopathy ([facility]) Type II or unspecified type diabetes mellitus without mention of complication, not stated as uncontrolled Stress incontinence Female stress incontinence documented in this encounter [facility] note* Diagnosis Chronic diarrhea- Primary Diarrhea documented in this encounter [facility] note* Diagnosis Skin lesion of breast- Primary Unspecified breast disorder Need for vaccination Need for prophylactic vaccination and inoculation against unspecified single disease [facility] Diagnosis MARY (obstructive sleep apnea)- Primary Obstructive sleep apnea (adult) (pediatric) Other secondary hypertension [facility] Fall, subsequent encounter- Primary Pain of left great toe Stress incontinence Female stress incontinence [facility]* Diagnosis Fall, subsequent encounter [facility] encounter [facility]* Diagnosis Type 2 diabetes mellitus with complication, without long-term current use of insulin ([facility]) documented [facility] this encounter [facility] Diagnosis Shortness of breath [facility]* Diagnosis Need for influenza vaccination- Primary Need for prophylactic vaccination and inoculation against influenza [facility]* Diagnosis Hypercholesteremia Pure hypercholesterolemia [facility]* Diagnosis Controlled type 2 diabetes mellitus without complication, without long-term current use of insulin (HCC) documented [facility] this encounter [facility]* Diagnosis Seizure disorder ([facility])- Primary Unspecified epilepsy without mention of intractable epilepsy MARY (obstructive sleep apnea) Obstructive sleep apnea (adult) (pediatric) Restrictive lung disease Other diseases of lung, not elsewhere classified documented [facility] this encounter [facility]* Diagnosis Onychauxis- Primary Other specified disease of nail Lymphedema of both lower extremities PVD (peripheral vascular disease) ([facility]) Peripheral vascular disease, unspecified Type 2 diabetes mellitus with complication, without long-term current use of insulin (HCC) Swelling of both lower extremities Callus Corns and callosities documented [facility] this encounter [facility]* Diagnosis Lymphedema of both lower extremities- Primary Type 2 diabetes mellitus with complication, without long-term current use of insulin ([facility]) Morbid obesity with BMI of 45.0-49.9, adult (HCC) Morbid obesity Shortness of breath Leg swelling Swelling of limb documented in this [facility]* Diagnosis Controlled type 2 diabetes mellitus without complication, without long-term current use of insulin (HCC) documented in this encounter [facility]* Diagnosis Onychauxis- Primary Other specified disease of nail Lymphedema of both lower extremities PVD (peripheral vascular disease) ([facility]) Peripheral vascular disease, unspecified Type 2 diabetes mellitus with complication, without long-term current use of insulin (HCC) Swelling of both lower extremities Callus Corns and callosities Subungual hematoma of foot, left, initial encounter documented in this encounter [facility]* Diagnosis Seizure disorder (HCC)- Primary Unspecified epilepsy without mention of intractable epilepsy documented in this [facility]* Diagnosis MARY (obstructive sleep apnea)- Primary Obstructive sleep apnea (adult) (pediatric) Type 2 diabetes mellitus with complication, without long-term current use of insulin (HCC) Decreased hearing of both ears Chronic obstructive pulmonary disease, unspecified COPD type (HCC) Anxiety Anxiety state, unspecified Lymphedema of both lower extremities Class 3 severe obesity due to excess calories with serious comorbidity and body mass index (BMI) of 45.0 to 49.9 in adult (HCC) documented in this encounter [facility]* Diagnosis Seizure disorder (HCC) Unspecified epilepsy without mention of intractable epilepsy [facility] Diagnosis Leg swelling- Primary Swelling of limb Type 2 diabetes mellitus with complication, without long-term current use of insulin (HCC) Allergic rhinitis, unspecified seasonality, unspecified trigger documented in this encounter [facility]* Diagnosis Community acquired pneumonia, unspecified laterality- Primary Chronic obstructive pulmonary disease, unspecified COPD type (HCC) Type II diabetes mellitus with peripheral circulatory disorder (HCC) Type II or unspecified type diabetes mellitus with peripheral circulatory disorders, not stated as uncontrolled MARY on CPAP Obstructive sleep apnea (adult) (pediatric) Debility Debility, unspecified Hyperlipidemia, unspecified hyperlipidemia type Seizures (HCC) Other convulsions Urinary tract infection without hematuria, site unspecified documented in this encounter [facility]* Diagnosis OPENED IN ERROR- Primary To allow closing an encounter opened in error (used in SmartSet) documented in this encounter [facility]* Diagnosis Community acquired pneumonia, unspecified laterality- Primary Chronic obstructive pulmonary disease, unspecified COPD type (HCC) Type II diabetes mellitus with peripheral circulatory disorder (HCC) Type II or unspecified type diabetes mellitus with peripheral circulatory disorders, not stated as uncontrolled Debility Debility, unspecified Urinary tract infection without hematuria, site unspecified documented in this encounter [facility] note* Diagnosis Community acquired pneumonia, unspecified laterality- Primary Chronic obstructive pulmonary disease, unspecified COPD type (HCC) Type II diabetes mellitus with peripheral circulatory disorder (HCC) Type II or unspecified type diabetes mellitus with peripheral circulatory disorders, not stated as uncontrolled Debility Debility, unspecified documented [facility] this [facility] Diagnosis Community acquired pneumonia, unspecified laterality- Primary Chronic obstructive pulmonary disease, unspecified COPD type (HCC) Type II diabetes mellitus with peripheral circulatory disorder (HCC) Type II or unspecified type diabetes mellitus with peripheral circulatory disorders, not stated as uncontrolled PVD (peripheral vascular disease) (HCC) Peripheral vascular disease, unspecified Debility Debility, unspecified [facility]* Diagnosis Chronic obstructive pulmonary disease, unspecified COPD type (HCC)- Primary Type II diabetes mellitus with peripheral circulatory disorder (HCC) Type II or unspecified type diabetes mellitus with peripheral circulatory disorders, not stated as uncontrolled PVD (peripheral vascular disease) (HCC) Peripheral vascular disease, unspecified Debility Debility, unspecified documented [facility] this encounter [facility]* Diagnosis History of community acquired pneumonia- Primary Allergic rhinitis, unspecified seasonality, unspecified trigger Need for influenza vaccination Need for prophylactic vaccination and inoculation against influenza [facility]* Diagnosis Debility- Primary Debility, unspecified Morbid obesity (HCC) Morbid obesity Chronic heart failure with preserved ejection fraction (HCC) Chronic respiratory failure with hypoxia (HCC) Chronic respiratory failure Type 2 diabetes mellitus without complication, without long-term current use of insulin (HCC) Seizure disorder (HCC) Unspecified epilepsy without mention of intractable epilepsy Chronic right shoulder pain Pain in joint, shoulder region [facility]* Diagnosis Chronic heart failure with preserved ejection fraction (HCC)- Primary Chronic respiratory failure with hypoxia (HCC) Chronic respiratory failure Type 2 diabetes mellitus with complication, without long-term current use of insulin (HCC) Debility Debility, unspecified documented [facility] this encounter [facility]* Diagnosis Chronic heart failure with preserved ejection fraction (HCC)- Primary Chronic respiratory failure with hypoxia (HCC) Chronic respiratory failure Type 2 diabetes mellitus with complication, without long-term current use of insulin (HCC) Morbid obesity (HCC) Morbid obesity Type 2 diabetes mellitus without complication, without long-term current use of insulin (HCC) MARY (obstructive sleep apnea) Obstructive sleep apnea (adult) (pediatric) Chronic obstructive pulmonary disease, unspecified COPD type (HCC) Debility Debility, unspecified [facility]* Diagnosis Stress incontinence- Primary Female stress incontinence [facility]* Diagnosis Chronic obstructive pulmonary disease, unspecified COPD type (HCC)- Primary [facility]* Diagnosis Onychauxis- Primary Other specified disease of nail Lymphedema of both lower extremities PVD (peripheral vascular disease) (HCC) Peripheral vascular disease, unspecified Callus Corns and callosities Swelling of both lower extremities Type 2 diabetes mellitus with complication, without long-term current use of insulin (HCC) [facility]* Diagnosis Chronic heart failure with preserved ejection fraction (HCC)- Primary Chronic respiratory failure with hypoxia (HCC) Chronic respiratory failure PVD (peripheral vascular disease) (HCC) Peripheral vascular disease, unspecified Complete atrioventricular block (HCC) Atrioventricular block, complete Pacemaker Cardiac pacemaker in situ Debility Debility, unspecified [facility]* Diagnosis Chronic heart failure with preserved ejection fraction (HCC)- Primary Chronic respiratory failure with hypoxia (HCC) Chronic respiratory failure PVD (peripheral vascular disease) (HCC) Peripheral vascular disease, unspecified Complete atrioventricular block (HCC) Atrioventricular block, complete Pacemaker Cardiac pacemaker in situ [facility]* Diagnosis Chronic heart failure with preserved ejection fraction (HCC)- Primary Chronic respiratory failure with hypoxia (HCC) Chronic respiratory failure Complete atrioventricular block (HCC) Atrioventricular block, complete Pacemaker Cardiac pacemaker in situ Debility Debility, unspecified documented [facility] this encounter [facility]* Diagnosis Chronic heart failure with preserved ejection fraction (HCC)- Primary Chronic respiratory failure with hypoxia (HCC) Chronic respiratory failure Complete atrioventricular block (HCC) Atrioventricular block, complete Pacemaker Cardiac pacemaker in situ Debility Debility, unspecified Morbid obesity (HCC) Morbid obesity [facility]* Diagnosis Chronic heart failure with preserved ejection fraction (HCC)- Primary Type 2 diabetes mellitus with complication, without long-term current use of insulin (HCC) MARY (obstructive sleep apnea) Obstructive sleep apnea (adult) (pediatric) Allergic rhinitis, unspecified seasonality, unspecified trigger Seizure disorder (HCC) Unspecified epilepsy without mention of intractable epilepsy Chronic respiratory failure with hypoxia (HCC) Chronic respiratory failure Complete atrioventricular block (HCC) Atrioventricular block, complete Pacemaker Cardiac pacemaker in situ Debility Debility, unspecified Morbid obesity (HCC) Morbid obesity PVD (peripheral vascular disease) (HCC) Peripheral vascular disease, unspecified [facility]* Diagnosis Hypercholesteremia- Primary Pure hypercholesterolemia MARY (obstructive sleep apnea) Obstructive sleep apnea (adult) (pediatric) Restrictive lung disease Other diseases of lung, not elsewhere classified Chronic obstructive pulmonary disease, unspecified COPD type ([facility]) Lung fibrosis (HCC) Postinflammatory pulmonary fibrosis Interstitial lung disease (HCC) Postinflammatory pulmonary fibrosis documented in this encounter [facility]* Diagnosis Heart block- Primary Conduction disorder, unspecified documented in this encounter [facility] note* Diagnosis Presence of cardiac pacemaker- Primary Cardiac pacemaker in situ documented in this encounter [facility] note* Diagnosis Seizure (HCC)- Primary Other convulsions Acute cystitis without hematuria Acute cystitis SOB (shortness of breath) Shortness of breath HB (heart block)- Primary Conduction disorder, unspecified documented in this encounter [facility] note* Diagnosis Pneumonia due to infectious organism, unspecified laterality, unspecified part of lung- Primary Pneumonia due to infectious organism, unspecified laterality, unspecified part of lung Fall, initial encounter Altered mental status, unspecified altered mental status type Sepsis, due to unspecified organism, unspecified whether acute organ dysfunction present ([facility]) Urinary tract infection with hematuria, site unspecified Acute hypoxemic respiratory failure ([facility]) documented in this encounter [facility] note* Diagnosis Seizure (HCC)- Primary Other convulsions Acute cystitis without hematuria Acute cystitis SOB (shortness of breath) Shortness of breath Syncope, unspecified syncope type- Primary documented in this encounter [facility]* Diagnosis Hospital discharge follow-up- Primary Other follow-up examination Acute on chronic HFrEF (heart failure with reduced ejection fraction) ([facility]) Chronic respiratory failure with hypoxia (HCC) Chronic obstructive pulmonary disease, unspecified COPD type (HCC) ILD (interstitial lung disease) ([facility]) Postinflammatory pulmonary fibrosis MARY (obstructive sleep apnea) Obstructive sleep apnea (adult) (pediatric) Personal history of tobacco use, presenting hazards to health Severe obesity (BMI >= 40) ([facility]) documented in this encounter [facility] note* Diagnosis MARY (obstructive sleep apnea)- Primary Obstructive sleep apnea (adult) (pediatric) [facility] Diagnosis MARY (obstructive sleep apnea)- Primary Obstructive sleep apnea (adult) (pediatric) [facility] Diagnosis ILD (interstitial lung disease) (HCC) Postinflammatory pulmonary fibrosis documented in this encounter [facility] note* Diagnosis Pulmonary fibrosis (HCC)- Primary Postinflammatory pulmonary fibrosis MARY (obstructive sleep apnea) Obstructive sleep apnea (adult) (pediatric) Morbid obesity (HCC) Morbid obesity Chronic respiratory failure with hypoxia (HCC) Chronic bronchitis, unspecified chronic bronchitis type (HCC) Chronic systolic CHF (congestive heart failure) (HCC) documented in this encounter [facility] noteNo assessment information availableWSalem [facility] Work Phone: Evaluation note* Diagnosis Seizure (HCC)- Primary Other convulsions Acute cystitis without hematuria Acute cystitis SOB (shortness of breath) Shortness of breath Syncope, unspecified syncope type- Primary documented in this encounter [facility] note* Diagnosis Pulmonary fibrosis (HCC)- Primary Postinflammatory pulmonary fibrosis Chronic respiratory failure with hypoxia (HCC) Chronic bronchitis, unspecified chronic bronchitis type (HCC) MARY (obstructive sleep apnea) Obstructive sleep apnea (adult) (pediatric) Morbid obesity (HCC) Morbid obesity Allergic rhinitis, unspecified seasonality, unspecified trigger documented in this encounter [facility] note* Diagnosis Seizure (HCC)- Primary Other convulsions Acute cystitis without hematuria Acute cystitis SOB (shortness of breath) Shortness of breath Chronic heart failure with preserved ejection fraction (HCC)- Primary Primary hypertension Unspecified essential hypertension Mixed hyperlipidemia 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 MARY (obstructive sleep apnea) Obstructive sleep apnea (adult) (pediatric) Syncope and collapse documented in this encounter [facility] note* Diagnosis Seizure (HCC)- Primary Other convulsions Acute cystitis without hematuria Acute cystitis SOB (shortness of breath) Shortness of breath Atrial flutter, unspecified type (HCC)- Primary documented in this encounter [facility] for referral (narrative)* Diagnostic Procedure Only (Routine) - Pending Review Specialty Diagnoses / Procedures Referred By Olivier t Referred To Contact XR IMAGING Diagnoses Fall, subsequent encounter Procedures XR FOOT GENERAL 3V AP/LAT/OBL LEFT RADEX FOOT COMPLETE MINIMUM 3 VIEWS Fernando Zelaya MD [address] [facility] [address] [place] [address] Xr Imaging Referral ID Status Reason Start Date Expiration Date Visits Requested Visits Authorized [id number] Pending Review Auto-Generat ed Referral 02/26/2022 03/28/2023 1 1 [facility] for referral (narrative)* Diagnostic Procedure Only (Routine) - Closed Specialty Diagnoses / Procedures Referred By Contac t Referred To Contact XR IMAGING Diagnoses Fall, subsequent encounter Procedures XR FOOT GENERAL 3V AP/LAT/OBL LEFT RADEX FOOT COMPLETE MINIMUM 3 VIEWS Fernando Zelaya MD [address] [facility] [address] [place] [address] Xr Imaging Referral ID Status Reason Start Date Expiration Date V isits Requested Visits Authorized [id number] Closed Auto-Generate d Referral 02/26/2022 03/28/2023 1 1 [facility] for referral (narrative)* Outpatient Procedure (Routine) - Authorized Specialty Diagnoses / Procedures Referred By Contac t Referred To Contact [facility] Diagnoses Seizure disorder (HCC) Procedures EPIL EEG ROUTINE ELECTROENCEPHALOGRAM REC COMA/SLEEP ONLY Tami Long DO [address] [place] [address] Neurological [place] [address] [place] [address] Referral ID Status Reason Start Date Expiration Date Visits Requested Visits Authorized [id number] Authorized Auto-Generat ed Referral 01/01/2023 01/02/2024 1 1 [facility] for referral (narrative)No reason for referral information availableWSalem Regional [facility] Work Phone: Reason for visit Narrative* Diagnostic Procedure Only (Routine) - Closed Specialty Diagnoses / Procedures Referred By Contac t Referred To Contact XR IMAGING Diagnoses Fall, subsequent encounter Procedures XR FOOT GENERAL 3V AP/LAT/OBL LEFT RADEX FOOT COMPLETE MINIMUM 3 VIEWS Fernando Zelaya MD [address] [facility] [address] [place] [address] Xr Imaging Referral ID Status Reason Start Date Expiration Date V isits Requested Visits Authorized [id number] Closed Auto-Generate d Referral 02/26/2022 03/28/2023 1 1 [facility] for visit Narrative* Imaging (Routine) - Closed Specialty Diagnoses / Procedures Referred By Olivier t Referred To Contact Radiology Diagnoses ILD (interstitial lung disease) (HCC) Procedures CT chest wo IV contrast Vonnie Love APRN - [employer] [address] [place] [id number] Phone: tel: fax: Referral ID Status Reason Start Date Expiration Date Visits Re quested Visits Authorized [id number] Closed 08/13/2024 08/13/2025 1 1 [facility] Summary Purpose Family History No Family History Records FoundNo Family History Records FoundNo Family History Records FoundNo Family History Records FoundNo Family History Records FoundNo Family History Records FoundNo Family History Records FoundNo Family History Records FoundNo Family History Records FoundNo Family History Records Found Advance Directives No Advanced Directives Records FoundDocuments on File Type Date Recorded 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 Advance Directive(s) 02/14/2022 10:00 AM Date Activated Date Inactivated Comments 05/21/2023 8:02 AM 05/24/2023 4:47 PM Question Answer Comments Full Code Order Discussed With: Patient Date Activated Date Inactivated Comments 03/05/2023 4:35 PM 03/09/2023 6:34 PM Question Answer Comments Full Code Order Discussed With: Patient Documents on File Type Date Recorded 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 Advance Directive(s) 10/10/2021 12:53 PM Advance Directive(s) 12/23/2020 2:03 PM Advance Directive(s) 08/30/2020 6:35 AM Advance Directive(s) 04/15/2020 5:17 PM Advance Directive(s) 05/14/2019 10:20 AM Advance Directive(s) 05/05/2019 10:41 AM Documents on File Type Date Recorded 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 Advance Directive(s) 10/10/2021 12:53 PM Advance Directive(s) 12/23/2020 2:03 PM Advance Directive(s) 08/30/2020 6:35 AM Advance Directive(s) 04/15/2020 5:17 PM Advance Directive(s) 05/14/2019 10:20 AM Advance Directive(s) 05/05/2019 10:41 AM Documents on File Type Date Recorded 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 Advance Directive(s) 02/02/2022 10:11 AM Advance Directive(s) 10/10/2021 12:53 PM Advance Directive(s) 12/23/2020 2:03 PM Advance Directive(s) 08/30/2020 6:35 AM Advance Directive(s) 04/15/2020 5:17 PM Advance Directive(s) 05/14/2019 10:20 AM Advance Directive(s) 05/05/2019 10:41 AM Documents on File Type Date Recorded 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 Advance Directive(s) 02/14/2022 10:00 AM Latest Code Status on File Code Status Date Activated Date Inactivated Comments Full Code 03/05/2023 4:35 PM Question Answer Comments Full Code Order Discussed With: Patient Latest Code Status on File Code Status Date Activated Date Inactivated Comments Full Code 03/05/2023 4:35 PM 03/09/2023 6:34 PM Question Answer Comments Full Code Order Discussed With: Patient Latest Code Status on File Code Status Date Activated Date Inactivated Comments Full Code 05/21/2023 8:02 AM Question Answer Comments Full Code Order Discussed With: Patient Code Status History Code Status Date Activated Date Inactivated Comments Full Code 03/05/2023 4:35 PM 03/09/2023 6:34 PM Question Answer Comments Full Code Order Discussed With: Patient Latest Code Status on File Code Status Date Activated Date Inactivated Comments Full Code 05/21/2023 8:02 AM 05/24/2023 4:47 PM Question Answer Comments Full Code Order Discussed With: Patient Date Activated Date Inactivated Comments 10/19/2023 6:42 PM Date Activated Date Inactivated Comments 05/21/2023 8:02 AM 05/24/2023 4:47 PM Date Activated Date Inactivated Comments 03/05/2023 4:35 PM 03/09/2023 6:34 PM Question Answer Comments Full Code Order Discussed With: Patient Date Activated Date Inactivated Comments 10/19/2023 6:42 PM 10/25/2023 4:49 PM Date Activated Date Inactivated Comments 07/07/2024 9:46 PM 07/15/2024 8:28 PM Date Activated Date Inactivated Comments 07/07/2024 9:46 PM 07/15/2024 8:28 PM Date Activated Date Inactivated Comments 11/03/2024 2:42 AM 11/05/2024 8:57 PM Date Activated Date Inactivated Comments 10/19/2023 6:42 PM 10/25/2023 4:49 PM Date Activated Date Inactivated Comments 05/21/2023 8:02 AM 05/24/2023 4:47 PM Date Activated Date Inactivated Comments 03/05/2023 4:35 PM 03/09/2023 6:34 PM Question Answer Comments Full Code Order Discussed With: Patient Date Activated Date Inactivated Comments 12/07/2024 8:48 PM Date Activated Date Inactivated Comments 11/03/2024 2:42 AM 11/05/2024 8:57 PM Date Activated Date Inactivated Comments 10/19/2023 6:42 PM 10/25/2023 4:49 PM Date Activated Date Inactivated Comments 05/21/2023 8:02 AM 05/24/2023 4:47 PM Date Activated Date Inactivated Comments 03/05/2023 4:35 PM 03/09/2023 6:34 PM Question Answer Comments Full Code Order Discussed With: Patient Date Activated Date Inactivated Comments 12/07/2024 8:48 PM 12/09/2024 5:05 PM Health Concerns Infection Onset Date Last Indicated Resolved Time COVID-19 Rule-Out 03/05/2023 03/05/2023 03/05/2023 2:25 PM EDT Infection Onset Date Last Indicated Resolved Time COVID-19 Rule-Out 05/20/2023 05/20/2023 05/20/2023 3:36 PM EST Infection Onset Date Last Indicated Resolved Time COVID-19 Rule-Out 03/05/2023 03/05/2023 03/05/2023 2:25 PM EDT COVID-19 Rule-Out 05/14/2023 05/14/2023 05/14/2023 12:23 PM EST COVID-19 Rule-Out 05/20/2023 05/20/2023 05/20/2023 3:36 PM EST Medications Administered Section Administered Medications Medication Order MAR Action Action Date Dose Rate Site tuberculin skin test, unspecified formulation Given 03/09/2023 tuberculin skin test, unspecified formulation Given 03/19/2023 Chief Complaint and Reason for Visit Chief Complaint Admit Date INTERMEDIATE LAB WORK September 17, 2024 4 :00am Chief Complaint Admit Date INTERMEDIATE LAB WORK September 17, 2024 4 :00am LABWORK September 25, 2024 5:0 0am Chief Complaint Admit Date INTERMEDIATE LAB WORK September 17, 2024 4 :00am LABWORK September 25, 2024 5:0 0am LABWORK November 16, 2024 5:00a m Additional Source Comments INFORMATION SOURCE (unrecogn ized section and content) DATE CREATED AUTHOR 12/25/2017 [facility] DATE CREATED AUTHOR AUTHOR'S ORGANIZ ATION 01/11/2018 [facility] DATE CREATED AUTHOR AUTHOR'S ORGANIZ ATION 08/31/2020 [facility] DATE CREATED AUTHOR AUTHOR'S ORGANIZ ATION 04/27/2021 [facility] DATE CREATED AUTHOR AUTHOR'S ORGANIZ ATION 09/13/2023 [facility] DATE CREATED AUTHOR AUTHOR'S ORGANIZ ATION [facility] DATE CREATED AUTHOR AUTHOR'S ORGANIZ ATION 11/19/2024 [facility] DATE CREATED AUTHOR AUTHOR'S ORGANIZ ATION 12/06/2024 [facility] DATE CREATED AUTHOR AUTHOR'S ORGANIZ ATION 12/11/2024 [facility] DATE CREATED AUTHOR AUTHOR'S ORGANIZ ATION 12/26/2024 [facility] [place] Source Comments (unrecognize d section and content) In the event this informatio n is protected by the Federal Confidentiality of Alcohol and Drug Abuse Patient Records regulations: The Federal rules restrict any use of the information to criminally investigate or prosecute any alcohol or drug abuse patient.[facility] CenterIn the event this information is protected by the Federal Confidentiality of Alcohol and Drug Abuse Patient Records regulations: The Federal rules restrict any use of the information to criminally investigate or prosecute any alcohol or drug abuse patient.[facility] CenterIn the event this information is protected by the Federal Confidentiality of Alcohol and Drug Abuse Patient Records regulations: The Federal rules restrict any use of the information to criminally investigate or prosecute any alcohol or drug abuse patient.[facility] CenterIn the event this information is protected by the Federal Confidentiality of Alcohol and Drug Abuse Patient Records regulations: The Federal rules restrict any use of the information to criminally investigate or prosecute any alcohol or drug abuse patient.[facility] CenterIn the event this information is protected by the Federal Confidentiality of Alcohol and Drug Abuse Patient Records regulations: The Federal rules restrict any use of the information to criminally investigate or prosecute any alcohol or drug abuse patient.[facility] CenterIn the event this information is protected by the Federal Confidentiality of Alcohol and Drug Abuse Patient Records regulations: The Federal rules restrict any use of the information to criminally investigate or prosecute any alcohol or drug abuse patient.[facility] CenterIn the event this information is protected by the Federal Confidentiality of Alcohol and Drug Abuse Patient Records regulations: The Federal rules restrict any use of the information to criminally investigate or prosecute any alcohol or drug abuse patient.[facility] CenterIn the event this information is protected by the Federal Confidentiality of Alcohol and Drug Abuse Patient Records regulations: The Federal rules restrict any use of the information to criminally investigate or prosecute any alcohol or drug abuse patient.[facility] CenterIn the event this information is protected by the Federal Confidentiality of Alcohol and Drug Abuse Patient Records regulations: The Federal rules restrict any use of the information to criminally investigate or prosecute any alcohol or drug abuse patient.[facility] CenterIn the event this information is protected by the Federal Confidentiality of Alcohol and Drug Abuse Patient Records regulations: The Federal rules restrict any use of the information to criminally investigate or prosecute any alcohol or drug abuse patient.[facility] CenterIn the event this information is protected by the Federal Confidentiality of Alcohol and Drug Abuse Patient Records regulations: The Federal rules restrict any use of the information to criminally investigate or prosecute any alcohol or drug abuse patient.[facility] CenterIn the event this information is protected by the Federal Confidentiality of Alcohol and Drug Abuse Patient Records regulations: The Federal rules restrict any use of the information to criminally investigate or prosecute any alcohol or drug abuse patient.[facility] CenterIn the event this information is protected by the Federal Confidentiality of Alcohol and Drug Abuse Patient Records regulations: The Federal rules restrict any use of the information to criminally investigate or prosecute any alcohol or drug abuse patient.[facility] CenterIn the event this information is protected by the Federal Confidentiality of Alcohol and Drug Abuse Patient Records regulations: The Federal rules restrict any use of the information to criminally investigate or prosecute any alcohol or drug abuse patient.[facility] CenterIn the event this information is protected by the Federal Confidentiality of Alcohol and Drug Abuse Patient Records regulations: The Federal rules restrict any use of the information to criminally investigate or prosecute any alcohol or drug abuse patient.[facility] CenterIn the event this information is protected by the Federal Confidentiality of Alcohol and Drug Abuse Patient Records regulations: The Federal rules restrict any use of the information to criminally investigate or prosecute any alcohol or drug abuse patient.[facility] CenterIn the event this information is protected by the Federal Confidentiality of Alcohol and Drug Abuse Patient Records regulations: The Federal rules restrict any use of the information to criminally investigate or prosecute any alcohol or drug abuse patient.[facility] CenterIn the event this information is protected by the Federal Confidentiality of Alcohol and Drug Abuse Patient Records regulations: The Federal rules restrict any use of the information to criminally investigate or prosecute any alcohol or drug abuse patient.[facility] CenterIn the event this information is protected by the Federal Confidentiality of Alcohol and Drug Abuse Patient Records regulations: The Federal rules restrict any use of the information to criminally investigate or prosecute any alcohol or drug abuse patient.[facility] CenterIn the event this information is protected by the Federal Confidentiality of Alcohol and Drug Abuse Patient Records regulations: The Federal rules restrict any use of the information to criminally investigate or prosecute any alcohol or drug abuse patient.[facility] CenterIn the event this information is protected by the Federal Confidentiality of Alcohol and Drug Abuse Patient Records regulations: The Federal rules restrict any use of the information to criminally investigate or prosecute any alcohol or drug abuse patient.[facility] CenterIn the event this information is protected by the Federal Confidentiality of Alcohol and Drug Abuse Patient Records regulations: The Federal rules restrict any use of the information to criminally investigate or prosecute any alcohol or drug abuse patient.[facility] CenterIn the event this information is protected by the Federal Confidentiality of Alcohol and Drug Abuse Patient Records regulations: The Federal rules restrict any use of the information to criminally investigate or prosecute any alcohol or drug abuse patient.[facility] CenterIn the event this information is protected by the Federal Confidentiality of Alcohol and Drug Abuse Patient Records regulations: The Federal rules restrict any use of the information to criminally investigate or prosecute any alcohol or drug abuse patient.[facility] CenterIn the event this information is protected by the Federal Confidentiality of Alcohol and Drug Abuse Patient Records regulations: The Federal rules restrict any use of the information to criminally investigate or prosecute any alcohol or drug abuse patient.[facility] CenterIn the event this information is protected by the Federal Confidentiality of Alcohol and Drug Abuse Patient Records regulations: The Federal rules restrict any use of the information to criminally investigate or prosecute any alcohol or drug abuse patient.[facility] CenterIn the event this information is protected by the Federal Confidentiality of Alcohol and Drug Abuse Patient Records regulations: The Federal rules restrict any use of the information to criminally investigate or prosecute any alcohol or drug abuse patient.[facility] CenterIn the event this information is protected by the Federal Confidentiality of Alcohol and Drug Abuse Patient Records regulations: The Federal rules restrict any use of the information to criminally investigate or prosecute any alcohol or drug abuse patient.[facility] CenterIn the event this information is protected by the Federal Confidentiality of Alcohol and Drug Abuse Patient Records regulations: The Federal rules restrict any use of the information to criminally investigate or prosecute any alcohol or drug abuse patient.[facility] CenterIn the event this information is protected by the Federal Confidentiality of Alcohol and Drug Abuse Patient Records regulations: The Federal rules restrict any use of the information to criminally investigate or prosecute any alcohol or drug abuse patient.[facility] CenterIn the event this information is protected by the Federal Confidentiality of Alcohol and Drug Abuse Patient Records regulations: The Federal rules restrict any use of the information to criminally investigate or prosecute any alcohol or drug abuse patient.[facility] CenterIn the event this information is protected by the Federal Confidentiality of Alcohol and Drug Abuse Patient Records regulations: The Federal rules restrict any use of the information to criminally investigate or prosecute any alcohol or drug abuse patient.[facility] CenterIn the event this information is protected by the Federal Confidentiality of Alcohol and Drug Abuse Patient Records regulations: The Federal rules restrict any use of the information to criminally investigate or prosecute any alcohol or drug abuse patient.[facility] CenterIn the event this information is protected by the Federal Confidentiality of Alcohol and Drug Abuse Patient Records regulations: The Federal rules restrict any use of the information to criminally investigate or prosecute any alcohol or drug abuse patient.[facility] CenterIn the event this information is protected by the Federal Confidentiality of Alcohol and Drug Abuse Patient Records regulations: The Federal rules restrict any use of the information to criminally investigate or prosecute any alcohol or drug abuse patient.[facility] CenterIn the event this information is protected by the Federal Confidentiality of Alcohol and Drug Abuse Patient Records regulations: The Federal rules restrict any use of the information to criminally investigate or prosecute any alcohol or drug abuse patient.[facility] CenterIn the event this information is protected by the Federal Confidentiality of Alcohol and Drug Abuse Patient Records regulations: The Federal rules restrict any use of the information to criminally investigate or prosecute any alcohol or drug abuse patient.[facility] CenterIn the event this information is protected by the Federal Confidentiality of Alcohol and Drug Abuse Patient Records regulations: The Federal rules restrict any use of the information to criminally investigate or prosecute any alcohol or drug abuse patient.[facility] CenterIn the event this information is protected by the Federal Confidentiality of Alcohol and Drug Abuse Patient Records regulations: The Federal rules restrict any use of the information to criminally investigate or prosecute any alcohol or drug abuse patient.[facility] CenterIn the event this information is protected by the Federal Confidentiality of Alcohol and Drug Abuse Patient Records regulations: The Federal rules restrict any use of the information to criminally investigate or prosecute any alcohol or drug abuse patient.[facility] CenterIn the event this information is protected by the Federal Confidentiality of Alcohol and Drug Abuse Patient Records regulations: The Federal rules restrict any use of the information to criminally investigate or prosecute any alcohol or drug abuse patient.[facility] CenterIn the event this information is protected by the Federal Confidentiality of Alcohol and Drug Abuse Patient Records regulations: The Federal rules restrict any use of the information to criminally investigate or prosecute any alcohol or drug abuse patient.[facility] CenterIn the event this information is protected by the Federal Confidentiality of Alcohol and Drug Abuse Patient Records regulations: The Federal rules restrict any use of the information to criminally investigate or prosecute any alcohol or drug abuse patient.[facility] CenterIn the event this information is protected by the Federal Confidentiality of Alcohol and Drug Abuse Patient Records regulations: The Federal rules restrict any use of the information to criminally investigate or prosecute any alcohol or drug abuse patient.[facility] CenterIn the event this information is protected by the Federal Confidentiality of Alcohol and Drug Abuse Patient Records regulations: The Federal rules restrict any use of the information to criminally investigate or prosecute any alcohol or drug abuse patient.[facility] CenterIn the event this information is protected by the Federal Confidentiality of Alcohol and Drug Abuse Patient Records regulations: The Federal rules restrict any use of the information to criminally investigate or prosecute any alcohol or drug abuse patient.[facility] CenterIn the event this information is protected by the Federal Confidentiality of Alcohol and Drug Abuse Patient Records regulations: The Federal rules restrict any use of the information to criminally investigate or prosecute any alcohol or drug abuse patient.[facility] CenterIn the event this information is protected by the Federal Confidentiality of Alcohol and Drug Abuse Patient Records regulations: The Federal rules restrict any use of the information to criminally investigate or prosecute any alcohol or drug abuse patient.[facility] CenterIn the event this information is protected by the Federal Confidentiality of Alcohol and Drug Abuse Patient Records regulations: The Federal rules restrict any use of the information to criminally investigate or prosecute any alcohol or drug abuse patient.[facility] CenterIn the event this information is protected by the Federal Confidentiality of Alcohol and Drug Abuse Patient Records regulations: The Federal rules restrict any use of the information to criminally investigate or prosecute any alcohol or drug abuse patient.[facility] CenterIn the event this information is protected by the Federal Confidentiality of Alcohol and Drug Abuse Patient Records regulations: The Federal rules restrict any use of the information to criminally investigate or prosecute any alcohol or drug abuse patient.[facility] CenterIn the event this information is protected by the Federal Confidentiality of Alcohol and Drug Abuse Patient Records regulations: The Federal rules restrict any use of the information to criminally investigate or prosecute any alcohol or drug abuse patient.[facility] CenterIn the event this information is protected by the Federal Confidentiality of Alcohol and Drug Abuse Patient Records regulations: The Federal rules restrict any use of the information to criminally investigate or prosecute any alcohol or drug abuse patient.[facility] CenterIn the event this information is protected by the Federal Confidentiality of Alcohol and Drug Abuse Patient Records regulations: The Federal rules restrict any use of the information to criminally investigate or prosecute any alcohol or drug abuse patient.[facility] CenterIn the event this information is protected by the Federal Confidentiality of Alcohol and Drug Abuse Patient Records regulations: The Federal rules restrict any use of the information to criminally investigate or prosecute any alcohol or drug abuse patient.[facility] CenterIn the event this information is protected by the Federal Confidentiality of Alcohol and Drug Abuse Patient Records regulations: The Federal rules restrict any use of the information to criminally investigate or prosecute any alcohol or drug abuse patient.[facility] CenterIn the event this information is protected by the Federal Confidentiality of Alcohol and Drug Abuse Patient Records regulations: The Federal rules restrict any use of the information to criminally investigate or prosecute any alcohol or drug abuse patient.[facility] CenterIn the event this information is protected by the Federal Confidentiality of Alcohol and Drug Abuse Patient Records regulations: The Federal rules restrict any use of the information to criminally investigate or prosecute any alcohol or drug abuse patient.[facility] CenterIn the event this information is protected by the Federal Confidentiality of Alcohol and Drug Abuse Patient Records regulations: The Federal rules restrict any use of the information to criminally investigate or prosecute any alcohol or drug abuse patient.[facility] CenterIn the event this information is protected by the Federal Confidentiality of Alcohol and Drug Abuse Patient Records regulations: The Federal rules restrict any use of the information to criminally investigate or prosecute any alcohol or drug abuse patient.[facility] CenterIn the event this information is protected by the Federal Confidentiality of Alcohol and Drug Abuse Patient Records regulations: The Federal rules restrict any use of the information to criminally investigate or prosecute any alcohol or drug abuse patient.[facility] CenterIn the event this information is protected by the Federal Confidentiality of Alcohol and Drug Abuse Patient Records regulations: The Federal rules restrict any use of the information to criminally investigate or prosecute any alcohol or drug abuse patient.[facility] CenterIn the event this information is protected by the Federal Confidentiality of Alcohol and Drug Abuse Patient Records regulations: The Federal rules restrict any use of the information to criminally investigate or prosecute any alcohol or drug abuse patient.[facility] CenterIn the event this information is protected by the Federal Confidentiality of Alcohol and Drug Abuse Patient Records regulations: The Federal rules restrict any use of the information to criminally investigate or prosecute any alcohol or drug abuse patient.[facility] CenterIn the event this information is protected by the Federal Confidentiality of Alcohol and Drug Abuse Patient Records regulations: The Federal rules restrict any use of the information to criminally investigate or prosecute any alcohol or drug abuse patient.[facility] CenterIn the event this information is protected by the Federal Confidentiality of Alcohol and Drug Abuse Patient Records regulations: The Federal rules restrict any use of the information to criminally investigate or prosecute any alcohol or drug abuse patient.[facility] CenterIn the event this information is protected by the Federal Confidentiality of Alcohol and Drug Abuse Patient Records regulations: The Federal rules restrict any use of the information to criminally investigate or prosecute any alcohol or drug abuse patient.[facility] CenterIn the event this information is protected by the Federal Confidentiality of Alcohol and Drug Abuse Patient Records regulations: The Federal rules restrict any use of the information to criminally investigate or prosecute any alcohol or drug abuse patient.[facility] CenterIn the event this information is protected by the Federal Confidentiality of Alcohol and Drug Abuse Patient Records regulations: The Federal rules restrict any use of the information to criminally investigate or prosecute any alcohol or drug abuse patient.[facility] CenterIn the event this information is protected by the Federal Confidentiality of Alcohol and Drug Abuse Patient Records regulations: The Federal rules restrict any use of the information to criminally investigate or prosecute any alcohol or drug abuse patient.[facility] CenterIn the event this information is protected by the Federal Confidentiality of Alcohol and Drug Abuse Patient Records regulations: The Federal rules restrict any use of the information to criminally investigate or prosecute any alcohol or drug abuse patient.[facility] CenterIn the event this information is protected by the Federal Confidentiality of Alcohol and Drug Abuse Patient Records regulations: The Federal rules restrict any use of the information to criminally investigate or prosecute any alcohol or drug abuse patient.[facility] CenterIn the event this information is protected by the Federal Confidentiality of Alcohol and Drug Abuse Patient Records regulations: The Federal rules restrict any use of the information to criminally investigate or prosecute any alcohol or drug abuse patient.[facility] CenterIn the event this information is protected by the Federal Confidentiality of Alcohol and Drug Abuse Patient Records regulations: The Federal rules restrict any use of the information to criminally investigate or prosecute any alcohol or drug abuse patient.[facility] CenterIn the event this information is protected by the Federal Confidentiality of Alcohol and Drug Abuse Patient Records regulations: The Federal rules restrict any use of the information to criminally investigate or prosecute any alcohol or drug abuse patient.[facility] CenterIn the event this information is protected by the Federal Confidentiality of Alcohol and Drug Abuse Patient Records regulations: The Federal rules restrict any use of the information to criminally investigate or prosecute any alcohol or drug abuse patient.[facility] CenterIn the event this information is protected by the Federal Confidentiality of Alcohol and Drug Abuse Patient Records regulations: The Federal rules restrict any use of the information to criminally investigate or prosecute any alcohol or drug abuse patient.[facility] CenterIn the event this information is protected by the Federal Confidentiality of Alcohol and Drug Abuse Patient Records regulations: The Federal rules restrict any use of the information to criminally investigate or prosecute any alcohol or drug abuse patient.[facility] CenterIn the event this information is protected by the Federal Confidentiality of Alcohol and Drug Abuse Patient Records regulations: The Federal rules restrict any use of the information to criminally investigate or prosecute any alcohol or drug abuse patient.[facility] CenterIn the event this information is protected by the Federal Confidentiality of Alcohol and Drug Abuse Patient Records regulations: The Federal rules restrict any use of the information to criminally investigate or prosecute any alcohol or drug abuse patient.[facility] CenterIn the event this information is protected by the Federal Confidentiality of Alcohol and Drug Abuse Patient Records regulations: The Federal rules restrict any use of the information to criminally investigate or prosecute any alcohol or drug abuse patient.[facility] CenterIn the event this information is protected by the Federal Confidentiality of Alcohol and Drug Abuse Patient Records regulations: The Federal rules restrict any use of the information to criminally investigate or prosecute any alcohol or drug abuse patient.[facility] CenterIn the event this information is protected by the Federal Confidentiality of Alcohol and Drug Abuse Patient Records regulations: The Federal rules restrict any use of the information to criminally investigate or prosecute any alcohol or drug abuse patient.[facility] CenterIn the event this information is protected by the Federal Confidentiality of Alcohol and Drug Abuse Patient Records regulations: The Federal rules restrict any use of the information to criminally investigate or prosecute any alcohol or drug abuse patient.[facility] CenterIn the event this information is protected by the Federal Confidentiality of Alcohol and Drug Abuse Patient Records regulations: The Federal rules restrict any use of the information to criminally investigate or prosecute any alcohol or drug abuse patient.[facility] CenterIn the event this information is protected by the Federal Confidentiality of Alcohol and Drug Abuse Patient Records regulations: The Federal rules restrict any use of the information to criminally investigate or prosecute any alcohol or drug abuse patient.[facility] CenterIn the event this information is protected by the Federal Confidentiality of Alcohol and Drug Abuse Patient Records regulations: The Federal rules restrict any use of the information to criminally investigate or prosecute any alcohol or drug abuse patient.[facility] CenterIn the event this information is protected by the Federal Confidentiality of Alcohol and Drug Abuse Patient Records regulations: The Federal rules restrict any use of the information to criminally investigate or prosecute any alcohol or drug abuse patient.[facility] CenterIn the event this information is protected by the Federal Confidentiality of Alcohol and Drug Abuse Patient Records regulations: The Federal rules restrict any use of the information to criminally investigate or prosecute any alcohol or drug abuse patient.[facility] CenterIn the event this information is protected by the Federal Confidentiality of Alcohol and Drug Abuse Patient Records regulations: The Federal rules restrict any use of the information to criminally investigate or prosecute any alcohol or drug abuse patient.[facility] CenterIn the event this information is protected by the Federal Confidentiality of Alcohol and Drug Abuse Patient Records regulations: The Federal rules restrict any use of the information to criminally investigate or prosecute any alcohol or drug abuse patient.[facility] CenterIn the event this information is protected by the Federal Confidentiality of Alcohol and Drug Abuse Patient Records regulations: The Federal rules restrict any use of the information to criminally investigate or prosecute any alcohol or drug abuse patient.[facility]In the event this information is protected by the Federal Confidentiality of Alcohol and Drug Abuse Patient Records regulations: The Federal rules restrict any use of the information to criminally investigate or prosecute any alcohol or drug abuse patient.[facility] CenterIn the event this information is protected by the Federal Confidentiality of Alcohol and Drug Abuse Patient Records regulations: The Federal rules restrict any use of the information to criminally investigate or prosecute any alcohol or drug abuse patient.[facility]In the event this information is protected by the Federal Confidentiality of Alcohol and Drug Abuse Patient Records regulations: The Federal rules restrict any use of the information to criminally investigate or prosecute any alcohol or drug abuse patient.[facility] CenterIn the event this information is protected by the Federal Confidentiality of Alcohol and Drug Abuse Patient Records regulations: The Federal rules restrict any use of the information to criminally investigate or prosecute any alcohol or drug abuse patient.[facility]In the event this information is protected by the Federal Confidentiality of Alcohol and Drug Abuse Patient Records regulations: The Federal rules restrict any use of the information to criminally investigate or prosecute any alcohol or drug abuse patient.[facility] CenterIn the event this information is protected by the Federal Confidentiality of Alcohol and Drug Abuse Patient Records regulations: The Federal rules restrict any use of the information to criminally investigate or prosecute any alcohol or drug abuse patient.[facility] CenterIn the event this information is protected by the Federal Confidentiality of Alcohol and Drug Abuse Patient Records regulations: The Federal rules restrict any use of the information to criminally investigate or prosecute any alcohol or drug abuse patient.[facility] CenterIn the event this information is protected by the Federal Confidentiality of Alcohol and Drug Abuse Patient Records regulations: The Federal rules restrict any use of the information to criminally investigate or prosecute any alcohol or drug abuse patient.[facility] CenterIn the event this information is protected by the Federal Confidentiality of Alcohol and Drug Abuse Patient Records regulations: The Federal rules restrict any use of the information to criminally investigate or prosecute any alcohol or drug abuse patient.[facility] CenterIn the event this information is protected by the Federal Confidentiality of Alcohol and Drug Abuse Patient Records regulations: The Federal rules restrict any use of the information to criminally investigate or prosecute any alcohol or drug abuse patient.[facility] CenterIn the event this information is protected by the Federal Confidentiality of Alcohol and Drug Abuse Patient Records regulations: The Federal rules restrict any use of the information to criminally investigate or prosecute any alcohol or drug abuse patient.[facility] CenterIn the event this information is protected by the Federal Confidentiality of Alcohol and Drug Abuse Patient Records regulations: The Federal rules restrict any use of the information to criminally investigate or prosecute any alcohol or drug abuse patient.[facility] CenterIn the event this information is protected by the Federal Confidentiality of Alcohol and Drug Abuse Patient Records regulations: The Federal rules restrict any use of the information to criminally investigate or prosecute any alcohol or drug abuse patient.[facility] CenterIn the event this information is protected by the Federal Confidentiality of Alcohol and Drug Abuse Patient Records regulations: The Federal rules restrict any use of the information to criminally investigate or prosecute any alcohol or drug abuse patient.[facility] CenterIn the event this information is protected by the Federal Confidentiality of Alcohol and Drug Abuse Patient Records regulations: The Federal rules restrict any use of the information to criminally investigate or prosecute any alcohol or drug abuse patient.[facility] CenterIn the event this information is protected by the Federal Confidentiality of Alcohol and Drug Abuse Patient Records regulations: The Federal rules restrict any use of the information to criminally investigate or prosecute any alcohol or drug abuse patient.[facility]In the event this information is protected by the Federal Confidentiality of Alcohol and Drug Abuse Patient Records regulations: The Federal rules restrict any use of the information to criminally investigate or prosecute any alcohol or drug abuse patient.[facility] CenterIn the event this information is protected by the Federal Confidentiality of Alcohol and Drug Abuse Patient Records regulations: The Federal rules restrict any use of the information to criminally investigate or prosecute any alcohol or drug abuse patient.[facility] CenterIn the event this information is protected by the Federal Confidentiality of Alcohol and Drug Abuse Patient Records regulations: The Federal rules restrict any use of the information to criminally investigate or prosecute any alcohol or drug abuse patient.[facility]In the event this information is protected by the Federal Confidentiality of Alcohol and Drug Abuse Patient Records regulations: The Federal rules restrict any use of the information to criminally investigate or prosecute any alcohol or drug abuse patient.[facility] CenterIn the event this information is protected by the Federal Confidentiality of Alcohol and Drug Abuse Patient Records regulations: The Federal rules restrict any use of the information to criminally investigate or prosecute any alcohol or drug abuse patient.[facility]In the event this information is protected by the Federal Confidentiality of Alcohol and Drug Abuse Patient Records regulations: The Federal rules restrict any use of the information to criminally investigate or prosecute any alcohol or drug abuse patient.[facility] CenterIn the event this information is protected by the Federal Confidentiality of Alcohol and Drug Abuse Patient Records regulations: The Federal rules restrict any use of the information to criminally investigate or prosecute any alcohol or drug abuse patient.[facility] CenterIn the event this information is protected by the Federal Confidentiality of Alcohol and Drug Abuse Patient Records regulations: The Federal rules restrict any use of the information to criminally investigate or prosecute any alcohol or drug abuse patient.[facility] CenterIn the event this information is protected by the Federal Confidentiality of Alcohol and Drug Abuse Patient Records regulations: The Federal rules restrict any use of the information to criminally investigate or prosecute any alcohol or drug abuse patient.[facility] CenterIn the event this information is protected by the Federal Confidentiality of Alcohol and Drug Abuse Patient Records regulations: The Federal rules restrict any use of the information to criminally investigate or prosecute any alcohol or drug abuse patient.[facility] CenterIn the event this information is protected by the Federal Confidentiality of Alcohol and Drug Abuse Patient Records regulations: The Federal rules restrict any use of the information to criminally investigate or prosecute any alcohol or drug abuse patient.[facility] CenterIn the event this information is protected by the Federal Confidentiality of Alcohol and Drug Abuse Patient Records regulations: The Federal rules restrict any use of the information to criminally investigate or prosecute any alcohol or drug abuse patient.[facility] CenterIn the event this information is protected by the Federal Confidentiality of Alcohol and Drug Abuse Patient Records regulations: The Federal rules restrict any use of the information to criminally investigate or prosecute any alcohol or drug abuse patient.[facility] CenterIn the event this information is protected by the Federal Confidentiality of Alcohol and Drug Abuse Patient Records regulations: The Federal rules restrict any use of the information to criminally investigate or prosecute any alcohol or drug abuse patient.[facility] CenterIn the event this information is protected by the Federal Confidentiality of Alcohol and Drug Abuse Patient Records regulations: The Federal rules restrict any use of the information to criminally investigate or prosecute any alcohol or drug abuse patient.[facility] CenterIn the event this information is protected by the Federal Confidentiality of Alcohol and Drug Abuse Patient Records regulations: The Federal rules restrict any use of the information to criminally investigate or prosecute any alcohol or drug abuse patient.[facility] CenterIn the event this information is protected by the Federal Confidentiality of Alcohol and Drug Abuse Patient Records regulations: The Federal rules restrict any use of the information to criminally investigate or prosecute any alcohol or drug abuse patient.[facility] CenterIn the event this information is protected by the Federal Confidentiality of Alcohol and Drug Abuse Patient Records regulations: The Federal rules restrict any use of the information to criminally investigate or prosecute any alcohol or drug abuse patient.[facility] CenterIn the event this information is protected by the Federal Confidentiality of Alcohol and Drug Abuse Patient Records regulations: The Federal rules restrict any use of the information to criminally investigate or prosecute any alcohol or drug abuse patient.[facility] CenterIn the event this information is protected by the Federal Confidentiality of Alcohol and Drug Abuse Patient Records regulations: The Federal rules restrict any use of the information to criminally investigate or prosecute any alcohol or drug abuse patient.[facility] CenterIn the event this information is protected by the Federal Confidentiality of Alcohol and Drug Abuse Patient Records regulations: The Federal rules restrict any use of the information to criminally investigate or prosecute any alcohol or drug abuse patient.[facility] CenterIn the event this information is protected by the Federal Confidentiality of Alcohol and Drug Abuse Patient Records regulations: The Federal rules restrict any use of the information to criminally investigate or prosecute any alcohol or drug abuse patient.[facility] CenterIn the event this information is protected by the Federal Confidentiality of Alcohol and Drug Abuse Patient Records regulations: The Federal rules restrict any use of the information to criminally investigate or prosecute any alcohol or drug abuse patient.[facility] CenterIn the event this information is protected by the Federal Confidentiality of Alcohol and Drug Abuse Patient Records regulations: The Federal rules restrict any use of the information to criminally investigate or prosecute any alcohol or drug abuse patient.[facility] CenterIn the event this information is protected by the Federal Confidentiality of Alcohol and Drug Abuse Patient Records regulations: The Federal rules restrict any use of the information to criminally investigate or prosecute any alcohol or drug abuse patient.[facility] CenterIn the event this information is protected by the Federal Confidentiality of Alcohol and Drug Abuse Patient Records regulations: The Federal rules restrict any use of the information to criminally investigate or prosecute any alcohol or drug abuse patient.[facility] CenterIn the event this information is protected by the Federal Confidentiality of Alcohol and Drug Abuse Patient Records regulations: The Federal rules restrict any use of the information to criminally investigate or prosecute any alcohol or drug abuse patient.[facility] CenterIn the event this information is protected by the Federal Confidentiality of Alcohol and Drug Abuse Patient Records regulations: The Federal rules restrict any use of the information to criminally investigate or prosecute any alcohol or drug abuse patient.[facility] CenterIn the event this information is protected by the Federal Confidentiality of Alcohol and Drug Abuse Patient Records regulations: The Federal rules restrict any use of the information to criminally investigate or prosecute any alcohol or drug abuse patient.[facility] CenterIn the event this information is protected by the Federal Confidentiality of Alcohol and Drug Abuse Patient Records regulations: The Federal rules restrict any use of the information to criminally investigate or prosecute any alcohol or drug abuse patient.[facility] CenterIn the event this information is protected by the Federal Confidentiality of Alcohol and Drug Abuse Patient Records regulations: The Federal rules restrict any use of the information to criminally investigate or prosecute any alcohol or drug abuse patient.[facility] CenterIn the event this information is protected by the Federal Confidentiality of Alcohol and Drug Abuse Patient Records regulations: The Federal rules restrict any use of the information to criminally investigate or prosecute any alcohol or drug abuse patient.[facility] CenterIn the event this information is protected by the Federal Confidentiality of Alcohol and Drug Abuse Patient Records regulations: The Federal rules restrict any use of the information to criminally investigate or prosecute any alcohol or drug abuse patient.[facility] CenterIn the event this information is protected by the Federal Confidentiality of Alcohol and Drug Abuse Patient Records regulations: The Federal rules restrict any use of the information to criminally investigate or prosecute any alcohol or drug abuse patient.[facility] CenterIn the event this information is protected by the Federal Confidentiality of Alcohol and Drug Abuse Patient Records regulations: The Federal rules restrict any use of the information to criminally investigate or prosecute any alcohol or drug abuse patient.[facility] CenterIn the event this information is protected by the Federal Confidentiality of Alcohol and Drug Abuse Patient Records regulations: The Federal rules restrict any use of the information to criminally investigate or prosecute any alcohol or drug abuse patient.[facility] CenterIn the event this information is protected by the Federal Confidentiality of Alcohol and Drug Abuse Patient Records regulations: The Federal rules restrict any use of the information to criminally investigate or prosecute any alcohol or drug abuse patient.[facility] CenterIn the event this information is protected by the Federal Confidentiality of Alcohol and Drug Abuse Patient Records regulations: The Federal rules restrict any use of the information to criminally investigate or prosecute any alcohol or drug abuse patient.[facility] CenterIn the event this information is protected by the Federal Confidentiality of Alcohol and Drug Abuse Patient Records regulations: The Federal rules restrict any use of the information to criminally investigate or prosecute any alcohol or drug abuse patient.[facility] CenterIn the event this information is protected by the Federal Confidentiality of Alcohol and Drug Abuse Patient Records regulations: The Federal rules restrict any use of the information to criminally investigate or prosecute any alcohol or drug abuse patient.[facility] CenterIn the event this information is protected by the Federal Confidentiality of Alcohol and Drug Abuse Patient Records regulations: The Federal rules restrict any use of the information to criminally investigate or prosecute any alcohol or drug abuse patient.[facility] CenterIn the event this information is protected by the Federal Confidentiality of Alcohol and Drug Abuse Patient Records regulations: The Federal rules restrict any use of the information to criminally investigate or prosecute any alcohol or drug abuse patient.[facility] CenterIn the event this information is protected by the Federal Confidentiality of Alcohol and Drug Abuse Patient Records regulations: The Federal rules restrict any use of the information to criminally investigate or prosecute any alcohol or drug abuse patient.[facility] CenterIn the event this information is protected by the Federal Confidentiality of Alcohol and Drug Abuse Patient Records regulations: The Federal rules restrict any use of the information to criminally investigate or prosecute any alcohol or drug abuse patient.[facility] CenterIn the event this information is protected by the Federal Confidentiality of Alcohol and Drug Abuse Patient Records regulations: The Federal rules restrict any use of the information to criminally investigate or prosecute any alcohol or drug abuse patient.[facility] CenterIn the event this information is protected by the Federal Confidentiality of Alcohol and Drug Abuse Patient Records regulations: The Federal rules restrict any use of the information to criminally investigate or prosecute any alcohol or drug abuse patient.[facility] CenterIn the event this information is protected by the Federal Confidentiality of Alcohol and Drug Abuse Patient Records regulations: The Federal rules restrict any use of the information to criminally investigate or prosecute any alcohol or drug abuse patient.[facility] CenterIn the event this information is protected by the Federal Confidentiality of Alcohol and Drug Abuse Patient Records regulations: The Federal rules restrict any use of the information to criminally investigate or prosecute any alcohol or drug abuse patient.[facility] CenterIn the event this information is protected by the Federal Confidentiality of Alcohol and Drug Abuse Patient Records regulations: The Federal rules restrict any use of the information to criminally investigate or prosecute any alcohol or drug abuse patient.[facility] CenterIn the event this information is protected by the Federal Confidentiality of Alcohol and Drug Abuse Patient Records regulations: The Federal rules restrict any use of the information to criminally investigate or prosecute any alcohol or drug abuse patient.[facility] CenterIn the event this information is protected by the Federal Confidentiality of Alcohol and Drug Abuse Patient Records regulations: The Federal rules restrict any use of the information to criminally investigate or prosecute any alcohol or drug abuse patient.[facility] CenterIn the event this information is protected by the Federal Confidentiality of Alcohol and Drug Abuse Patient Records regulations: The Federal rules restrict any use of the information to criminally investigate or prosecute any alcohol or drug abuse patient.[facility] CenterIn the event this information is protected by the Federal Confidentiality of Alcohol and Drug Abuse Patient Records regulations: The Federal rules restrict any use of the information to criminally investigate or prosecute any alcohol or drug abuse patient.[facility] CenterIn the event this information is protected by the Federal Confidentiality of Alcohol and Drug Abuse Patient Records regulations: The Federal rules restrict any use of the information to criminally investigate or prosecute any alcohol or drug abuse patient.[facility] CenterIn the event this information is protected by the Federal Confidentiality of Alcohol and Drug Abuse Patient Records regulations: The Federal rules restrict any use of the information to criminally investigate or prosecute any alcohol or drug abuse patient.[facility] CenterIn the event this information is protected by the Federal Confidentiality of Alcohol and Drug Abuse Patient Records regulations: The Federal rules restrict any use of the information to criminally investigate or prosecute any alcohol or drug abuse patient.[facility] CenterIn the event this information is protected by the Federal Confidentiality of Alcohol and Drug Abuse Patient Records regulations: The Federal rules restrict any use of the information to criminally investigate or prosecute any alcohol or drug abuse patient.[facility] Reason for Visit (unrecogniz ed section and content) Specialty Diagnoses / Procedures Referred By Contac t Referred To Contact [facility] [place] H47.923. H53.40 - MRI/ORBITS WWO REF#[id number] KWESI JARAMILLO ORDER Procedures NECK W/WO MRI WWO IKER [address] Adamaris Mandel Jr., DO [address] [place] [address] [facility] [place] [address] [place] [address] Referral ID Status Reason Start Date Expiration Date Visits Re quested Visits Authorized [id number] Closed 06/26/2021 07/07/2022 1 1 Specialty Diagnoses / Procedures Referred By Contac t Referred To Contact [facility] Diagnoses H47.923. H53.40, - MRI/BRAIN WWO REF#[id number] KWESI FAXIN ORDER Procedures MRI BRAIN COMBO MRI WWO NEU1 [address] Adamaris Mandel Fabian Wong., DO [address] [place] [address] [facility] [place] [address] [place] [address] Referral ID Status Reason Start Date Expiration Date Visits Re quested Visits Authorized [id number] Closed 06/26/2021 07/07/2022 1 1 Reason Comments Forms Complete healthcare srvcs. - order # [id number] Reason Comments Follow Up Reason Comments Patient Request SCAT TRANSPORTATION PHONE CALL Reason Onset Date Comments Refill Request 12/06/2021 Reason Comments Patient Question Reason Comments Incontinence form for incont supp lies Reason Comments Forms Complete. healthcare srvs. - order# [id number] Reason Comments Social Work Services Patient Acknowledge ment Reason Comments Breast Problem left breast has area that is discolored. 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 Reason Comments Follow Up F/u to d/c CPAP and chronic conditons Reason Comments Orders CPAP Supplies Reason Comments Living Will Reason Comments Social Work Services Living Will / Other Resources Reason Comments ER F/U 02/02/22 [facility] ER fall , contusion left knee Incontinence Needs refill on prev ail bladder control pad 16 inch heavy absorbency Reason Comments Follow Up Scat Application (Tr ansportation) Reason Comments Results Reason Onset Date Comments Refill Request 03/13/2022 Reason Comments NET TRansportation Services Reason Comments Follow Up HOME PHONE NUMBER CH YADI Reason Comments Refill Request Reason Onset Date Comments Nurse Visit Immunizations 04/04/2022 Flu vaccination Reason Comments Forms Complete healthcare - order # [id number] Reason Onset Date Comments Refill Request 05/01/2022 Reason Onset Date Comments Refill Request 05/03/2022 Reason Comments Reason Comments DJFS - NET TRANSPORTATION Reason Onset Date Comments Refill Request 07/04/2022 Reason Comments Mom's Meals Reason Comments Forms Complete Healthcare srvs. - order # [id number] Reason Comments Chest Pain Reason Comments Forms Complete healthcare srvs. - order # [id number] Reason Comments Referral Request Reason Comments Appointment Reason Onset Date Comments Refill Request 09/06/2022 Reason Comments Orders Reason Comments Referral Reason Comments Diabetes Reason Comments Forms Complete healthcare- plan of care forms Reason Comments Orders Neurology Reason Onset Date Comments Refill Request 12/21/2022 Reason Comments Forms Complete healthcare srvs. - recert order. Reason Comments Established Patient Follow Up Reason Comments Patient Question Reason Comments Forms Medical service comp any-medical suplies Reason Comments Results Refill Request Kepp Reason Onset Date Comments Transition Of Care 03/06/2023 Inpatient Vis it Reason Onset Date Comments Transition Of Care 03/12/2023 [facility] Discharg ed to [facility] Reason Comments Forms Complete healthcare srvs. - orders. Reason Onset Date Comments Immunizations 04/12/2023 Flu vaccination Transition Of Care -03/09/23 [facility] pneumonia went to SNF on 03/09/23 and D/C on 04/05/23 Reason Comments Forms [facility]- o rder # [id number] Reason Onset Date Comments Transition Of Care 04/18/2023 TCM follow up Reason Comments Orders CPAP Machine Reason Comments Medication Problem Reason Onset Date Comments Transition Of Care 04/25/2023 TCM follow up Reason Comments Forms Medical service-medi timmy supplies Reason Comments Patient Update Reason Comments Patient Update Seizure activity and change in mental status Reason Onset Date Comments Transition Of Care 05/20/2023 TCM, [facility], Reason Comments ER/Urgent Referral Diarrhea for 1 week, chills, and abd pain Reason Onset Date Comments Transition Of Care 05/21/2023 Inpatient TCM visit Reason Onset Date Comments Transition Of Care 05/27/2023 [facility] [place] Discharg ed to [facility] Reason Comments Appointment Needs TCM Reason Onset Date Comments Transition Of Care 06/09/2023 [facility] 06/09/23 Reason Onset Date Comments Transition Of Care 06/10/2023 [facility], 06/07/2023 Reason Onset Date Comments Refill Request 06/10/2023 Reason Onset Date Comments Transition Of Care 06/17/2023 TCM follow up Reason Onset Date Comments Transition Of Care 06/24/2023 TCM follow up Reason Onset Date Comments Refill Request 08/30/2023 Reason Onset Date Comments Refill Request 09/12/2023 Reason Onset Date Comments Refill Request 10/08/2023 Reason Comments O2 Assessment Reason Onset Date Comments Transition Of Care 10/21/2023 Inpatient TCM visit Reason Onset Date Comments Wound Check 10/22/2023 Reason Onset Date Comments Transition Of Care 10/27/2023 [facility] Discharg ed to [facility] Reason Comments Forms Complete healthcare- discharge order Reason Comments Forms Complete healthcare- OT re-eval form Reason Comments Forms Complete. Healthcare - PT re eval Reason Comments Forms Complete healthcare- change order Reason Comments Forms Complete. Healthcare - order Reason Comments Forms Complete healthcare- change order Reason Comments Forms Complete. Healthcare - plan of care ( 4.2.24-5.31.24) Reason Comments Forms Complete Healthcare- plan of care (2.2.24-4.1.24) Reason Comments Forms Complete healthcare- recert order Reason Comments Forms Complete. Healthcare - transfer order Reason Onset Date Comments Transition Of Care 11/18/2023 Discharged fr om [facility] Reason Comments Forms [facility]- #[id number] Reason Comments Forms [facility]- #36211 2 Reason Comments Forms [facility]- #[id number] 1 Reason Comments ER F/U 10/19/23 for breakthr ough seizure Reason Comments Orders Cpap supplies Reason Comments PAP Therapy Follow Up Reason Onset Date Comments Transition Of Care 12/12/2023 [facility] discharg e to [facility] Reason Onset Date Comments Transition Of Care 12/30/2023 [facility] discharg e to [facility] Reason Onset Date Comments Population Health Navigation Outreach 01/01/2024 [facility] Attributed Member - Chart Review Reason Comments Permanent Pacemaker Reason Comments Orders CPap Reason Comments Wound Check Reason Comments Orders CPAP/BIPAP Supplies Reason Comments Remote Pacemaker Follow Up Reason Comments Forms [facility]- ox ygen order Reason Onset Date Comments Transition Of Care 05/27/2024 SNF Update (L rosalie Term Resident) Reason Comments Altered Mental Status Fall Unwitnessed fall, fo und by fpc staff Specialty Diagnoses / Procedures Referred By Contac t Referred To Contact Diagnoses Pneumonia due to infectious organism, unspecified laterality, unspecified part of lung Procedures - Selwyn Pena MD [address] [place] [address] Phone: tel: fax: [facility] [address] [place] [address] Phone: tel: Referral ID Status Reason Start Date Expiration Date Visits Re quested Visits Authorized [id number] 1 1 Reason Comments Hospital Follow-up Copd Reason Onset Date Comments Request For Order(s) 08/13/2024 Reason Onset Date Comments Test Scheduling 08/17/2024 CT scheduled Reason Comments Follow-up 1 month Reason Comments Appointment Heart Failure Clinic appt/ SNF letter Reason Comments Follow-up 2month,copd,mary Reason Comments Orders [facility] app[facility] contact-no response/deferral Reason Comments [facility]; hospital referral Reason Comments CARD Hospital Follow Up Care Teams (unrecognized sec tion and content) Delicatessen Clerk Relationship Specialty Start Date End Date Shivani Meneses MD [address] [place], [place] [id number] PCP - General Family Practice 01/07/20 Elise Wan DO [address] [place], [place] [phone] PCP Resident Family Practice 03/16/21 Delicatessen Clerk Relationship Specialty Start Date End Date Shivani Meneses MD [address] [place] [address] [place], [place] [id number] PCP - General Family Practice 01/07/20 Elise Wan DO [address] [place], [place] [id number] PCP Resident Family Practice 03/16/21 Delicatessen Clerk Relationship Specialty Start Date End Date Shivani Meneses MD [address] [place] [address] [place], [place] [id number] PCP - General Family Practice 01/07/20 Elise Wan DO [address] [place], [place] [phone] PCP Resident Family Practice 03/16/21 Delicatessen Clerk Relationship Specialty Start Date End Date Shivani Meneses MD [address] [place] [address] [place], [place] [id number] PCP - General Family Practice 01/07/20 Elise Wan DO [address] [place] [address] PCP Resident Family Practice 03/16/21 Delicatessen Clerk Relationship Specialty Start Date End Date Shivani Meneses MD [address] [place] [address] PCP - General Family Practice 01/07/20 Elise Wan DO [address] [place] [address] PCP Resident Family Practice 03/16/21 Delicatessen Clerk Relationship Specialty Start Date End Date Shivani Meneses MD [address] [place] [address] PCP - General Family Practice 01/07/20 Elise Wan DO [address] [place] [address] PCP Resident Family Practice 03/16/21 Delicatessen Clerk Relationship Specialty Start Date End Date Shivani Meneses MD [address] [place] [address] PCP - General Family Practice 01/07/20 Elise Wan DO [address] [place] [address] PCP Resident Family Practice 03/16/21 Delicatessen Clerk Relationship Specialty Start Date End Date Tami Long DO [address] [place] [address] PCP - General Family Practice 01/11/22 Dahiana Martin MD [address] [place] [address] [place] [address] PCP Resident Family Practice 01/11/22 Delicatessen Clerk Relationship Specialty Start Date End Date Taim Long DO [address] [place] [address] PCP - General Family Practice 01/11/22 Dahiana Martin MD [address] [place], [place] [id number] [phone] PCP Resident Family Practice 01/11/22 Delicatessen Clerk Relationship Specialty Start Date End Date Plate, Tami S, DO [address] [place] [address] PCP - General Family Practice 01/11/22 Dahiana Martin MD [address] [address] [place], [place] [id number] [phone] PCP Resident Family Practice 01/11/22 Delicatessen Clerk Relationship Specialty Start Date End Date Plate, Tami S, DO [address] [place] [address] PCP - General Family Practice 01/11/22 Dahiana Martin MD [address] [place] [address] [place] [address] PCP Resident Family Practice 01/11/22 Delicatessen Clerk Relationship Specialty Start Date End Date Plate, Tami Ponce DO [address] [place] [address] PCP - General Family Practice 01/11/22 Dahiana Martin MD [address] [place] [address] [place] [address] PCP Resident Family Practice 01/11/22 Delicatessen Clerk Relationship Specialty Start Date End Date Plate, Tami S, DO [address] [place] [address] PCP - General Family Practice 01/11/22 Dahiana Martin MD [address] [place] [address] [place] [address] PCP Resident Family Practice 01/11/22 Delicatessen Clerk Relationship Specialty Start Date End Date Plate, Tami Ponce, DO [address] [place] [address] PCP - General Family Practice 01/11/22 Dahiana Martin MD [address] [place] [address] [place] [address] PCP Resident Family Practice 01/11/22 Delicatessen Clerk Relationship Specialty Start Date End Date Plate, Tami Ponce DO [address] [place], [place] [id number] [phone] PCP - General Family Practice 01/11/22 Dahiana Martin MD [address] [place] [address] [place], [place] [phone] PCP Resident Family Practice 01/11/22 Delicatessen Clerk Relationship Specialty Start Date End Date Plate, Tami Ponce DO [address] [place] [address] PCP - General Family Practice 01/11/22 Dahiana Martin MD [address] [place] [address] [place], [place] [id number] [phone] PCP Resident Family Practice 01/11/22 Delicatessen Clerk Relationship Specialty Start Date End Date Plate, Tami Ponce DO [address] [place] [address] PCP - General Family Practice 01/11/22 Dahiana Martin MD [address] [place] [address] [place] [address] PCP Resident Family Practice 01/11/22 Delicatessen Clerk Relationship Specialty Start Date End Date Plate, Tami Ponce DO [address] [place] [address] PCP - General Family Practice 01/11/22 Dahiana Martin MD [address] [place] [address] [place] [address] PCP Resident Family Practice 01/11/22 Delicatessen Clerk Relationship Specialty Start Date End Date Plate, Tami S, DO [address] [place] [address] PCP - General Family Practice 01/11/22 Dahiana Martin MD [address] [place] [address] [place] [address] PCP Resident Family Practice 01/11/22 Delicatessen Clerk Relationship Specialty Start Date End Date Plate, Tami Ponce DO [address] [place] [address] PCP - General Family Practice 01/11/22 Dahiana Martin MD [address] [place] [address] [place] [address] PCP Resident Family Practice 01/11/22 Delicatessen Clerk Relationship Specialty Start Date End Date Plate, Tami Ponce DO [address] [place] [address] PCP - General Family Medicine 01/11/22 Dahiana Martin MD [address] [place] [address] [place] [address] PCP Resident Family Medicine 01/11/22 Delicatessen Clerk Relationship Specialty Start Date End Date Plate, Tami Ponce DO [address] [place] [address] PCP - General Family Medicine 01/11/22 Dahiana Martin MD [address] [place] [address] [place] [address] PCP Resident Family Medicine 01/11/22 Delicatessen Clerk Relationship Specialty Start Date End Date Plate, Tami S DO [address] [place] [address] PCP - General Family Medicine 01/11/22 Dahiana Martin MD [address] [place] [address] [place], [place] [phone] PCP Resident Family Medicine 01/11/22 Delicatessen Clerk Relationship Specialty Start Date End Date Plate, Tami Ponce DO [address] [place] [address] PCP - General Family Medicine 01/11/22 Dahiana Martin MD [address] [place] [address] [place] [address] PCP Resident Family Medicine 01/11/22 Delicatessen Clerk Relationship Specialty Start Date End Date PlateTami DO [address] [place] [address] PCP - General Family Medicine 01/11/22 Dahiana Martin MD [address] [place] [address] [place] [address] PCP Resident Family Medicine 01/11/22 Delicatessen Clerk Relationship Specialty Start Date End Date Plate, Tami Ponce DO [address] [place] [address] PCP - General Family Medicine 01/11/22 Dahiana Martin MD [address] [place] [address] [place] [address] PCP Resident Family Medicine 01/11/22 Delicatessen Clerk Relationship Specialty Start Date End Date Plate, Tami Ponce DO [address] [place] [address] PCP - General Family Medicine 01/11/22 Dahiana Martin MD [address] [place] [address] [place] [address] PCP Resident Family Medicine 01/11/22 Delicatessen Clerk Relationship Specialty Start Date End Date Dahiana Martin MD, MD [address] [place] [address] PCP - General 08/15/22 Dahiana Martin MD [address] [place] [address] [place] [address] PCP Resident Family Medicine 01/11/22 Delicatessen Clerk Relationship Specialty Start Date End Date Dahiana Martin MD, MD [address] [place] [address] PCP - General 08/15/22 Dahiana Martin MD [address] [place] [address] [place] [address] PCP Resident Family Medicine 01/11/22 Delicatessen Clerk Relationship Specialty Start Date End Date Tami Long DO [address] [place] [address] PCP - General Family Medicine 01/11/22 08/14/22 Dahiana Martin MD, MD [address] [place] [address] PCP - General 08/15/22 08/20/22 Tami Long DO [address] [place] [address] PCP - General Family Medicine 08/21/22 Dahiana Martin MD [address] [place] [address] [place] [address] PCP Resident Family Medicine 01/11/22 Delicatessen Clerk Relationship Specialty Start Date End Date Tami Long DO [address] [place] [address] PCP - General Family Medicine 08/21/22 Dahiana Martin MD [address] [place] [address] [place] [address] PCP Resident Family Medicine 01/11/22 Delicatessen Clerk Relationship Specialty Start Date End Date Plate, Tami Ponce, DO [address] [place] [address] PCP - General Family Medicine 08/21/22 Dahiana Martin MD [address] [place] [address] [place] [address] PCP Resident Family Medicine 01/11/22 Delicatessen Clerk Relationship Specialty Start Date End Date Eduardo, Tami Ponce, DO [address] [place] [address] PCP - General Family Medicine 08/21/22 Dahiana Martin MD [address] [place] [address] [place] [address] PCP Resident Family Medicine 01/11/22 Delicatessen Clerk Relationship Specialty Start Date End Date Plate, Tami Ponce DO [address] [place] [address] PCP - General Family Medicine 08/21/22 Dahiana Martin MD [address] [place] [address] [place] [address] PCP Resident Family Medicine 01/11/22 Delicatessen Clerk Relationship Specialty Start Date End Date Plate, Tami Ponce, DO [address] [place] [address] PCP - General Family Medicine 08/21/22 Dahiana Martin MD [address] [place] [address] [place] [address] PCP Resident Family Medicine 01/11/22 Delicatessen Clerk Relationship Specialty Start Date End Date Plate, Tami S, DO [address] [place] [address] PCP - General Family Medicine 08/21/22 aDhiana Martin MD [address] [place] [address] [place] [address] PCP Resident Family Medicine 01/11/22 Delicatessen Clerk Relationship Specialty Start Date End Date Plate, Tami Rosario DO [address] [place] [address] PCP - General Family Medicine 08/21/22 Dahiana Martin MD [address] [place] [address] [place] [address] PCP Resident Family Medicine 01/11/22 Delicatessen Clerk Relationship Specialty Start Date End Date Plate, Tami Rosario DO [address] [place] [address] PCP - General Family Medicine 08/21/22 Dahiana Martin MD [address] [place] [address] [place] [address] PCP Resident Family Medicine 01/11/22 Delicatessen Clerk Relationship Specialty Start Date End Date Tami Long DO [address] [place] [address] PCP - General Family Medicine 08/21/22 Dahiana Martin MD [address] [place] [address] [place] [address] PCP Resident Family Medicine 01/11/22 Delicatessen Clerk Relationship Specialty Start Date End Date Plate, Tami Rosario DO [address] [place] [address] PCP - General Family Medicine 08/21/22 Dahiana Martin MD [address] [place] [address] [place] [address] PCP Resident Family Medicine 01/11/22 Delicatessen Clerk Relationship Specialty Start Date End Date PlateTami DO [address] [address] [place], [place] [id number] PCP - General Family Medicine 08/21/22 Dahiana Martin MD [address] [place] [address] [place], [place] [id number] PCP Resident Family Medicine 01/11/22 Delicatessen Clerk Relationship Specialty Start Date End Date Tami Long DO [address] [address] [place], [place] [id number] PCP - General Family Medicine 08/21/22 Dahiana Martin MD [address] [place] [address] [place], [place] [address] PCP Resident Family Medicine 01/11/22 Delicatessen Clerk Relationship Specialty Start Date End Date Antonio Vaughn DO [address] [place] [address] [place], [place] [id number] PCP - General Family Medicine 01/05/23 Barbara Herman DO [address] [place] [address] PCP Resident 01/05/23 Delicatessen Clerk Relationship Specialty Start Date End Date Antonio Vaughn DO [address] [place] [address] [place] [address] PCP - General Family Medicine 01/05/23 Barbara Herman DO [address] [place] [address] [place], [place] [id number] PCP Resident Family Medicine 01/05/23 Delicatessen Clerk Relationship Specialty Start Date End Date Antonio Vaughn DO [address] [place] [address] [place], [place] [id number] PCP - General Family Medicine 01/05/23 Barbara Herman DO [address] [place] [address] [place], [place] [address] PCP Resident Family Medicine 01/05/23 Delicatessen Clerk Relationship Specialty Start Date End Date Antonoi Vaughn DO [address] [place] [address] [place], [place] [address] PCP - General Family Medicine 01/05/23 Barbara Herman DO [address] [place] [address] [place], [place] [address] PCP Resident Family Medicine 01/05/23 Delicatessen Clerk Relationship Specialty Start Date End Date Antonio Vaughn DO [address] [place] [address] [place], [place] [address] PCP - General Family Medicine 01/05/23 Barbara Herman DO [address] [place] [address] [place], [place] [address] PCP Resident Family Medicine 01/05/23 Delicatessen Clerk Relationship Specialty Start Date End Date Antonio Vaughn DO [address] [place] [address] [place], [place] [phone] PCP - General Family Medicine 01/05/23 Barbara Herman DO [address] [place] [address] PCP Resident Family Medicine 01/05/23 Delicatessen Clerk Relationship Specialty Start Date End Date Antonio Vaughn DO [address] [place] [address] [place], [place] [address] PCP - General Family Medicine 01/05/23 Barbara Herman DO [address] [place] [address] [place], [place] [address] PCP Resident Family Medicine 01/05/23 Delicatessen Clerk Relationship Specialty Start Date End Date Antonio Vaughn DO [address] [place] [address] [place], [place] [address] PCP - General Family Medicine 01/05/23 Barbara Herman DO [address] [place] [address] [place], [place] [address] PCP Resident Family Medicine 01/05/23 Delicatessen Clerk Relationship Specialty Start Date End Date Antonio Vaughn DO [address] [place] [address] [place], [place] [address] PCP - General Family Medicine 01/05/23 Barbara Herman DO [address] [place] [address] [place], [place] [address] PCP Resident Family Medicine 01/05/23 Delicatessen Clerk Relationship Specialty Start Date End Date Antonio Vaughn DO [address] [place] [address] [place], [place] [id number] PCP - General Family Medicine 01/05/23 Barbara Herman DO [address] [place] [address] [place], [place] [address] PCP Resident Family Medicine 01/05/23 Delicatessen Clerk Relationship Specialty Start Date End Date Antonio Vaughn DO [address] [place] [address] [place], [place] [phone] PCP - General Family Medicine 01/05/23 Barbara Herman DO [address] [place] [address] [place], [place] [address] PCP Resident Family Medicine 01/05/23 Dawood Carcamo, maintenance controller Manager Desktop 04/08/23 Delicatessen Clerk Relationship Specialty Start Date End Date Antonio Vaughn DO [address] [place] [address] [place], [place] [phone] PCP - General Family Medicine 01/05/23 Barbara Herman DO [address] [place] [address] PCP Resident Family Medicine 01/05/23 Dawood Carcamo, maintenance controller Manager Desktop 04/08/23 Delicatessen Clerk Relationship Specialty Start Date End Date Antonio Vaughn DO [address] [place] [address] [place], [place] [id number] PCP - General Family Medicine 01/05/23 Barbara Herman DO [address] [place] [address] PCP Resident Family Medicine 01/05/23 Dawood Carcamo, maintenance controller Manager Desktop 04/08/23 Delicatessen Clerk Relationship Specialty Start Date End Date Antonio Vaughn DO [address] [place] [address] [place] [address] PCP - General Family Medicine 01/05/23 Barbara Herman DO [address] [place] [address] [place], [place] [address] PCP Resident Family Medicine 01/05/23 Dawood Carcamo, maintenance controller Manager Desktop 04/08/23 Delicatessen Clerk Relationship Specialty Start Date End Date Antonio Vaughn DO [address] [place] [address] [place], [place] [phone] PCP - General Family Medicine 01/05/23 Barbara Herman DO [address] [place] [address] [place], [place] [address] PCP Resident Family Medicine 01/05/23 Dawood Carcamo maintenance controller Manager Desktop 04/08/23 Delicatessen Clerk Relationship Specialty Start Date End Date Antonio Vaughn DO [address] [place] [address] [place], [place] [phone] PCP - General Family Medicine 01/05/23 Barbara Herman DO [address] [place] [address] [place], [place] [address] PCP Resident Family Medicine 01/05/23 Dawood Carcamo RN Primary Care Manager Desktop 04/08/23 Delicatessen Clerk Relationship Specialty Start Date End Date Antonio Vaughn DO [address] [place] [address] [place], [place] [address] PCP - General Family Medicine 01/05/23 Barbara Herman DO [address] [place] [address] [place], [place] [address] PCP Resident Family Medicine 01/05/23 Dawood Carcamo maintenance controller Manager Desktop 04/08/23 Delicatessen Clerk Relationship Specialty Start Date End Date Antonio Vaughn DO [address] [place] [address] [place], [place] [address] PCP - General Family Medicine 01/05/23 Barbara Herman DO [address] [place] [address] PCP Resident Family Medicine 01/05/23 Dawood Carcamo, maintenance controller Manager Desktop 04/08/23 Antonio Vaughn DO [address] [place] [address] [place], [place] [phone] Referring Family Medicine 05/17/23 Delicatessen Clerk Relationship Specialty Start Date End Date Antonio Vaughn DO [address] [place] [address] [place], [place] [address] PCP - General Family Medicine 01/05/23 Barbara Herman DO [address] [place] [address] [place], [place] [address] PCP Resident Family Medicine 01/05/23 Dawood Carcamo, maintenance controller Manager Desktop 04/08/23 Antonio Vaughn DO [address] [place] [address] [place], [place] [address] Referring Family Medicine 05/17/23 Delicatessen Clerk Relationship Specialty Start Date End Date Antonio Vaughn DO [address] [place] [address] [place], [place] [address] PCP - General Family Medicine 01/05/23 Barbara Herman DO [address] [place] [address] [place], [place] [address] PCP Resident Family Medicine 01/05/23 Dawood Carcamo, maintenance controller Manager Desktop 04/08/23 Antonio Vaughn DO [address] [place] [address] [place], [place] [phone] Referring Family Medicine 05/17/23 Delicatessen Clerk Relationship Specialty Start Date End Date Antonio Vaughn DO [address] [place] [address] [place], [place] [address] PCP - General Family Medicine 01/05/23 Barbara Herman DO [address] [place] [address] [place], [place] [phone] PCP Resident Family Medicine 01/05/23 Dawood Carcamo, maintenance controller Manager Desktop 04/08/23 Delicatessen Clerk Relationship Specialty Start Date End Date Antonio Vaughn DO [address] [place] [address] [place], [place] [phone] PCP - General Family Medicine 01/05/23 Barbara Herman DO [address] [place] [address] [place], [place] [address] PCP Resident Family Medicine 01/05/23 Delicatessen Clerk Relationship Specialty Start Date End Date Antonio Vaughn DO [address] [place] [address] [place], [place] [address] PCP - General Family Medicine 01/05/23 Barbara Herman DO [address] [place] [address] [place], [place] [address] PCP Resident Family Medicine 01/05/23 Susan Rodriguez DO [address] [place] [address] [place], [place] [phone] Referring Family Medicine 10/07/23 Delicatessen Clerk Relationship Specialty Start Date End Date Antonio Vaughn DO [address] [place] [address] [place], [place] [address] PCP - General Family Medicine 01/05/23 Barbara Herman DO [address] [place] [address] [place], [place] [address] PCP Resident Family Medicine 01/05/23 Susan Rodriguez DO [address] [place] [address] [place], [place] [address] Referring Family Medicine 10/07/23 Delicatessen Clerk Relationship Specialty Start Date End Date Antonio Vaughn DO [address] [place] [address] [place], [place] [address] PCP - General Family Medicine 01/05/23 Barbara Herman DO [address] [place] [address] [place], [place] [address] PCP Resident Family Medicine 01/05/23 Susan Rodriguez DO [address] [place] [address] [place], [place] [phone] Referring Family Medicine 10/07/23 Delicatessen Clerk Relationship Specialty Start Date End Date Antonio Vaughn DO [address] [place] [address] [place], [place] [address] PCP - General Family Medicine 01/05/23 Barbara Herman DO [address] [place] [address] PCP Resident Family Medicine 01/05/23 Susan Rodriguez DO [address] [place] [address] [place] [address] Referring Family Medicine 10/07/23 Delicatessen Clerk Relationship Specialty Start Date End Date Antonio Vaughn DO [address] [place] [address] [place], [place] [address] PCP - General Family Medicine 01/05/23 Barbara Herman DO [address] [place] [address] PCP Resident Family Medicine 01/05/23 Susan Rodriguez DO [address] [place] [address] [place], [place] [address] Referring Family Medicine 10/07/23 Delicatessen Clerk Relationship Specialty Start Date End Date Antonio Vaughn DO [address] [place] [address] [place], [place] [address] PCP - General Family Medicine 01/05/23 Barbara Herman DO [address] [place] [address] [place], [place] [address] PCP Resident Family Medicine 01/05/23 Susan Rodriguez DO [address] [place] [address] [place], [place] [phone] Referring Family Medicine 10/07/23 Delicatessen Clerk Relationship Specialty Start Date End Date Antonio Vaughn DO [address] [place] [address] [place], [place] [address] PCP - General Family Medicine 01/05/23 Barbara Herman DO [address] [place] [address] [place], [place] [address] PCP Resident Family Medicine 01/05/23 Susan Rodriguez DO [address] [place] [address] [place], [place] [address] Referring Family Medicine 10/07/23 Delicatessen Clerk Relationship Specialty Start Date End Date Antonio Vaughn DO [address] [place] [address] [place], [place] [address] PCP - General Family Medicine 01/05/23 Barbara Herman DO [address] [place] [address] [place], [place] [address]16[address]07 PCP Resident Family Medicine 01/05/23 Susan Rodriguez DO [address] [place] [address] [place] [address] Referring Family Medicine 10/07/23 Delicatessen Clerk Relationship Specialty Start Date End Date Antonio Vaughn DO [address] [place] [address] [place], [place] [address] PCP - General Family Medicine 01/05/23 Barbara Herman DO [address] [place] [address] [place], [place] [address] PCP Resident Family Medicine 01/05/23 Susan Rodriguez DO [address] [place] [address] [place], [place] [address] Referring Family Medicine 10/07/23 Delicatessen Clerk Relationship Specialty Start Date End Date Antonio Vaughn DO [address] [place] [address] [place], [place] [address] PCP - General Family Medicine 01/05/23 Barbara Herman DO [address] [place] [address] PCP Resident Family Medicine 01/05/23 Susan Rodriguez DO [address] [place] [address] [place], [place] [address] Referring Family Medicine 10/07/23 Delicatessen Clerk Relationship Specialty Start Date End Date Antonio Vaughn DO [address] [place] [address] [place], [place] [phone] PCP - General Family Medicine 01/05/23 Barbara Herman DO [address] [place] [address] [place], [place] [phone] PCP Resident Family Medicine 01/05/23 Susan Rodriguez DO [address] [place] [address] [place], [place] [address] Referring Family Medicine 10/07/23 Delicatessen Clerk Relationship Specialty Start Date End Date Antonio Vaughn DO [address] [place] [address] [place], [place] [address] PCP - General Family Medicine 01/05/23 Barbara Herman DO [address] [place] [address] [place], [place] [address] PCP Resident Family Medicine 01/05/23 Susan Rodriguez DO [address] [place] [address] [place], [place] [phone] Referring Family Medicine 10/07/23 Delicatessen Clerk Relationship Specialty Start Date End Date Antonio Vaughn DO [address] [place] [address] [place], [place] [phone] PCP - General Family Medicine 01/05/23 Barbara Hemran DO [address] [place] [address] [place], [place] [address] PCP Resident Family Medicine 01/05/23 Susan Rodriguez DO [address] [place] [address] [place], [place] [address] Referring Family Medicine 10/07/23 Dawood Carcamo, maintenance controller Manager Desktop 11/18/23 Delicatessen Clerk Relationship Specialty Start Date End Date Antonio Vaughn DO [address] [place] [address] [place], [place] [address] PCP - General Family Medicine 01/05/23 Barbara Herman DO [address] [place] [address] [place], [place] [address] PCP Resident Family Medicine 01/05/23 Susan Rodriguez DO [address] [place] [address] [place], [place] [address] Referring Family Medicine 10/07/23 Dawood Carcamo, maintenance controller Manager Desktop 11/18/23 Delicatessen Clerk Relationship Specialty Start Date End Date Antonio Vaughn DO [address] [place] [address] [place], [place] [address] PCP - General Family Medicine 01/05/23 Barbara Herman DO [address] [place] [address] [place], [place] [address] PCP Resident Family Medicine 01/05/23 Susan Rodriguez DO [address] [place] [address] [place], [place] [phone] Referring Family Medicine 10/07/23 Dawood Carcamo, maintenance controller Manager Desktop 11/18/23 Delicatessen Clerk Relationship Specialty Start Date End Date Antonio Vaughn DO [address] [place] [address] [place], [place] [address] PCP - General Family Medicine 01/05/23 Barbara Herman DO [address] [place] [address] [place], [place] [phone] PCP Resident Family Medicine 01/05/23 Susan Rodriguez DO [address] [place] [address] [place], [place] [phone] Referring Family Medicine 10/07/23 Dawood Carcamo maintenance controller Manager Desktop 11/18/23 Delicatessen Clerk Relationship Specialty Start Date End Date Antonio Vaughn DO [address] [place] [address] [place], [place] [phone] PCP - General Family Medicine 01/05/23 Barbara Herman DO [address] [place] [address] [place], [place] [address] PCP Resident Family Medicine 01/05/23 Susan Rodriguez DO [address] [place] [address] [place], [place] [phone] Referring Family Medicine 10/07/23 Dawood Carcamo RN Primary Care Manager Desktop 11/18/23 Delicatessen Clerk Relationship Specialty Start Date End Date Antonio Vaughn DO [address] [place] [address] [place], [place] [phone] PCP - General Family Medicine 01/05/23 Barbara Herman DO [address] [place] [address] PCP Resident Family Medicine 01/05/23 Susan Rodriguez DO [address] [place] [address] [place], [place] [phone] Referring Family Medicine 10/07/23 Dawood Carcamo maintenance controller Manager Desktop 11/18/23 Delicatessen Clerk Relationship Specialty Start Date End Date Antonio Vaughn DO [address] [place] [address] [place], [place] [id number] PCP - General Family Medicine 12/04/23 Delicatessen Clerk Relationship Specialty Start Date End Date Antonio Vaughn DO [address] [place], [place] [id number] PCP - General Family Medicine 12/04/23 Delicatessen Clerk Relationship Specialty Start Date End Date Antonio Vaughn DO [address] [place], [place] [id number] PCP - General Family Medicine 01/05/23 Barbara Herman DO [address] [place] [address] PCP Resident Family Medicine 01/05/23 Susan Rodriguez DO [address] [place] [address] Referring Family Medicine 10/07/23 Delicatessen Clerk Relationship Specialty Start Date End Date Antonio Vaughn DO [address] [place], [place] [id number] PCP - General Family Medicine 01/05/23 Barbara Herman DO [address] [place] [address] PCP Resident Family Medicine 01/05/23 Susan Rodriguez DO [address] [place], [place] [id number] Referring Family Medicine 10/07/23 Delicatessen Clerk Relationship Specialty Start Date End Date Antonio Vaughn DO [address] [place], [place] [id number] PCP - General Family Medicine 01/05/23 Barbara Herman DO 1 [place], [place] [id number] PCP Resident Family Medicine 01/05/23 Susan Rodriguez DO 1 [facility] [address] [place], [place] [id number] Referring Family Medicine 10/07/23 Delicatessen Clerk Relationship Specialty Start Date End Date Isiah Acevedo MD 1 [place], [place] [id number] PCP - General Internal Medicine 05/27/24 Delicatessen Clerk Relationship Specialty Start Date End Date Mayur Young [address] [place], [place] [id number] PCP - General 01/01/19 Delicatessen Clerk Relationship Specialty Start Date End Date Isiah Acevedo MD 1 [place], [place] [id number] PCP - General Internal Medicine 05/27/24 Delicatessen Clerk Relationship Specialty Start Date End Date Mayur Young [address] [place] [address] PCP - General 01/01/19 Delicatessen Clerk Relationship Specialty Start Date End Date Mayur Young [address] [place] [address] PCP - General 01/01/19 Delicatessen Clerk Relationship Specialty Start Date End Date Mayur Young [address] [place] [address] PCP - General 01/01/19 Delicatessen Clerk Relationship Specialty Start Date End Date Mayur Young [address] [place] [address] PCP - General 01/01/19 Delicatessen Clerk Relationship Specialty Start Date End Date Mayur Young [address] [place], [place] [phone] PCP - General 01/01/19 Team Status: Inactive Member Role Status Dates Dr. Jayla TOLENTINO MD Attending Provider Active Start: September 17, 2024 End: September 17, 2024 Dr. Jayla TOLENTINO MD Referring Provider Active Start: September 17, 2024 End: September 17, 2024 Team Status: Active Member Role Status Dates Luis TOLENTINO Attending Provider Active Sta rt: September 25, 2024 Team Status: Inactive Member Role Status Dates Luis TOLENTINO Attending Provider Active Sta rt: September 25, 2024 End: September 25, 2024 Delicatessen Clerk Relationship Specialty Start Date End Date Isiah Acevedo MD 1 [place], [place] [phone] PCP - General Internal Medicine 05/27/24 Delicatessen Clerk Relationship Specialty Start Date End Date Isiah Acevedo MD [address] [place] [id number] PCP - General Internal Medicine 05/27/24 Delicatessen Clerk Relationship Specialty Start Date End Date Isiah Acevedo MD 1 [place], [place] [phone] PCP - General Internal Medicine 05/27/24 Delicatessen Clerk Relationship Specialty Start Date End Date Mayur Young [address] [place], [place] [id number] PCP - General 01/01/19 Team Status: Active Member Role Status Dates Sadie TOLENTINO MD Attending Provider Active Start: November 13, 2024 Team Status: Inactive Member Role Status Dates Sadie TOLENTINO MD Attending Provider Active Start: November 16, 2024 End: November 16, 2024 Delicatessen Clerk Relationship Specialty Start Date End Date Isiah Acevedo MD 1 [place], [place] [phone] PCP - General Internal Medicine 05/27/24 Delicatessen Clerk Relationship Specialty Start Date End Date Antonio Vaughn DO [address] [phone] PCP - General Family Medicine 12/04/23 05/26/24 Isiah Acevedo MD 1 [place], [place] [phone] PCP - General Internal Medicine 05/27/24 Antonio Vaughn DO [address] [id number] Family Medicine 12/04/23 05/26/24 Barbara Herman DO 1 [place], [place] [phone] PCP Resident Family Medicine 01/05/23 05/26/24 Susan Rodriguez DO [address] [phone] Referring Family Medicine 10/07/23 05/26/24 Delicatessen Clerk Relationship Specialty Start Date End Date Isiah Acevedo MD 1 [place], [place] [phone] PCP - General Internal Medicine 05/27/24 Delicatessen Clerk Relationship Specialty Start Date End Date Isiah Acevedo MD 1 [place], [place] [phone] PCP - General Internal Medicine 05/27/24 Delicatessen Clerk Relationship Specialty Start Date End Date Isiah Acevedo MD 1 [place], [place] [phone] (work) PCP - General Internal Medicine 05/27/24 Scheduled Active and Recently Administ ered Medications (unrecognized section and content) Medication Order 07/13/2024 07/14/2024 07/15/2024 aspirin EC tablet 81 mg 81 mg, Oral, Daily, First dose on Sat07/08/24 at 1150, Do not crush, chew, or split. 0947 (Given - Provider: Nhi Rizzo RN) 0837 (Given - Provider: Medhat Chow RN) 09 (Given - Provider: Ugo Mckinney RN) atorvastatin (Lipitor) tablet 80 mg 80 mg, Oral, Daily, First dose on Romina 07/09/24 at 0800 0946 (Given - Provider: Nhi Rizzo RN) 0837 (Given - Provider: Medhat Chow RN) 09 (Given - Provider: Ugo Mckinney RN) cetirizine (ZyrTEC) tablet 5 mg 5 mg, Oral, Daily, First dose on Sat07/09/24 at 0800 0947 (Given - Provider: Nhi Rizzo RN) 0837 (Given - Provider: Medhat Chow RN) 0906 (Given - Provider: Ugo Mckinney RN) enoxaparin (Lovenox) syringe 40 mg 40 mg, SubCUTAneous, Every 24 hours scheduled (Daily), First dose on Sat07/08/24 at 0900, Indication of Use: Prophylaxis-DVT/PE, Indications: Prophylaxis of Venous Thromboembolism 0946 (Given - Provider: Nhi Rizzo RN) 0838 (Given - Provider: Medhat Chow RN) 0905 (Given - Provider: Ugo Mckinney RN) furosemide (Lasix) injection 40 mg (COMPLETED) 40 mg, IntraVENous, Once, On 07/13/24 at 0930, For 1 dose 0947 (Given - Provider: Nhi Rizzo RN) furosemide (Lasix) tablet 20 mg 20 mg, Oral, Daily, First dose on Romina 07/09/24 at 0800 0800 (Dose Auto Held - Provider: Muriel Mckeon MD)0921 (Unheld by provider - Provider: Urmila Leung APRN - BOXING AND PRESSING SUPERVISOR) 0837 (Given - Provider: Medhat Chow RN) 09 (Given - Provider: Ugo Mckinney, BLANCA) Glycopyrrolate-Formoter ol (Bevespi Aerosphere) 9-4.8 MCG/ACT inhaler 2 puff 2 puff, Inhalation, 2 times daily, First dose on Sat07/09/24 at 0800 0953 (Given - Provider: Nhi Rizzo RN)1999 (Not Given - Provider: Irwin Mcgill RN - Reason: Patient/family refused) 0838 (Given - Provider: Medhat Chow RN)2042 (Given - Provider: Irwin Mcgill, BLANCA) 0910 (Given - Provider: Ugo Mckinney, BLANCA)1999 (Canceled Entry - Provider: Automatic Discharge Provider - Comment: Automatically canceled at discontinue of medication order) guaiFENesin (Mucinex) 12 hr tablet 600 mg 600 mg, Oral, 2 times daily, First dose on Sat07/07/24 at 2200, Administer with plenty of fluids to ensure proper action. Do not crush, chew, or split. 0947 (Given - Provider: Nhi Rizzo RN)0 (Given - Provider: Irwin Mcgill, BLANCA) 0837 (Given - Provider: Medhat Chow, BLANCA)2041 (Given - Provider: Irwin Mcgill RN) 09 (Given - Provider: Ugo Mckinney, BLANCA) influenza vaccine A&B surf ant adjuvanted (Fluad) HIGH-DOSE injection 0.5 mL 0.5 mL, IntraMUSCular, Prior to discharge, Starting on Sat07/08/24 at 0900, For 1 dose 1709 (Not Given - Provider: Ugo Mckinney, BLANCA - Reason: Contraindicated - Comment: pt had flu shot this season) Insulin Lispro (Humalog) injection 0-12 Units(Linked Group 1) 0-12 Units, SubCUTAneous, 3 times daily with meals, First dose on Sat07/08/24 at 0800, Medium Dose Correction Algorithm Glucose: Dose: LESS than 150 No Insulin 150-199 2 Units 200-249 4 Units 250-299 6 Units 300-349 8 Units 350-400 10 Units Above 400 12 Units 0800 (Not Given - Provider: Nhi Rizzo RN - Reason: Order parameters not met)1258 (Given - Provider: Nhi Rizzo RN)1716 (Given - Provider: Nhi Rizzo RN) 0800 (Not Given - Provider: Medhat Chow, BLANCA - Reason: Order parameters not met)1205 (Given - Provider: Medhat Chow RN)1709 (Given - Provider: Medhat Chow, BLANCA) 0906 (Given - Provider: Ugo Mckinney RN)1232 (Given - Provider: Ugo Mckinney RN)1752 (Given - Provider: Ugo Mckinney RN) Insulin Lispro (Humalog) injection 0-12 Units(Linked Group 1) 0-12 Units, SubCUTAneous, Nightly, First dose on Sat07/07/24 at 2200, If eating or bolus tube feeding: Medium Dose Correction Algorithm Glucose: Dose: LESS than 150 No Insulin 150-199 2 Units 200-249 4 Units 250-299 6 Units 300-349 8 Units 350-400 10 Units Above 400 12 Units 2140 (Given - Provider: Irwin Mcgill RN) 2041 (Given - Provider: Irwin Mcgill RN) ipratropium-albuterol (Duo-Neb) 0.5-2.5 mg/3 mL nebulizer solution 3 mL 3 mL, Nebulization, 3 times daily, First dose (after last modification) on Sat07/10/24 at 2000 0854 (Given - Provider: Salome Gibbons RCP)1400 (Canceled Entry - Provider: Automatic Discharge Provider - Comment: Automatically canceled at discontinue of medication order)2052 (Given - Provider: Alvaro Graff RRT) 0913 (Given - Provider: Walker Dempsey)1419 (Given - Provider: Walker Dempsey)1999 (Given - Provider: Alvaro Graff RRT) 0820 (Given - Provider: Salome Gibbons RCP)1435 (Given - Provider: Salome Gibbons RCP)1999 (Canceled Entry - Provider: Automatic Discharge Provider - Comment: Automatically canceled at discontinue of medication order) levETIRAcetam (Keppra) tablet 750 mg 750 mg, Oral, 2 times daily, First dose on Sat07/08/24 at 1120, Do not crush or chew. 0946 (Given - Provider: Nhi Rizzo RN)2139 (Given - Provider: Irwin Mcgill RN) 0837 (Given - Provider: Medhat Chow, RN)2041 (Given - Provider: Irwin Mcgill RN) 09 (Given - Provider: Ugo Mckinney, RN) predniSONE (Deltasone) tablet 20 mg 20 mg, Oral, Daily, First dose on Sat07/13/24 at 0915, For 5 doses 0948 (Given - Provider: Nhi Rizzo RN) 0837 (Given - Provider: Medhat Chow, BLANCA) 09 (Given - Provider: Ugo Mckinney RN) PRN Medication Order 07/13/2024 07/14/2024 07/15/2024 acetaminophen (Tylenol) suppository 650 mg(Linked Group 2) 650 mg, Rectal, Every 6 hours PRN, mild pain (1-3), fever, For temp greater than 100.4 F (38 C), Starting on Sat07/07/24 at 2146, Administer if oral route cannot be used. Maximum dose of acetaminophen is 4000 mg from all sources in 24 hours. acetaminophen (Tylenol) tablet 650 mg(Linked Group 2) 650 mg, Oral, Every 6 hours PRN, mild pain (1-3), fever, For temp greater than 100.4 F (38 C), Starting on Sat07/07/24 at 2146, Maximum dose of acetaminophen is 4000 mg from all sources in 24 hours. dextrose 5 % infusion 100 mL/hr, IntraVENous, PRN, Blood sugar less than 70mg/dL, Starting on Sat07/07/24 at 2156, Start infusion following administration of dextrose 50% or glucagon. dextrose 50 % solution 12.5 g 12.5 g, IntraVENous, PRN, low blood sugar, Blood glucose less than 70 mg/dL and patient NOT ALERT or NPO., Starting on Sat07/07/24 at 2156, If patient does not respond within 5 minutes, repeat dose x1. Start D5W at 100 mL/hour until ordering provider can be reached. Repeat blood glucose in 15 minutes. If blood glucose is less than 70 mg/dL, repeat treatment and recheck blood glucose in 15 minutes x2. If using Glucostabilizer, dose as instructed per system. glucagon (human recombinant) injection 1 mg 1 mg, IntraMUSCular, PRN, low blood sugar, Blood glucose less than 70 mg/dL and patient NOT ALERT or NPO and does not have IV access., Starting on Sat07/07/24 at 2156, After administration, attempt intravenous access and start D5W at 100 mL/hr. Repeat blood glucose in 15 minutes x2 and notify provider. glucose oral gel 15 g 15 g, Oral, As needed, low blood sugar, Starting on Sat07/07/24 at 2156, If blood glucose less than 50 mg/dL and patient ALERT and NOT NPO, give 2 tubes glucose gel. If blood glucose less than 70 mg/dL and patient ALERT and NOT NPO, give 1 tube glucose gel. Repeat blood glucose in 15 minutes. If blood glucose is less than 70 mg/dL, repeat treatment and recheck blood glucose in 15 minutes x2 and notify provider. ondansetron (Zofran) injection 4 mg(Linked Group 3) 4 mg, IntraVENous, Every 6 hours PRN, nausea, vomiting, Starting on Sat07/07/24 at 2146, 1st Line. Give IV if patient is unable to take orally. If inadequate response within 60 minutes, proceed to next-line agent or contact provider if no further options ordered. ondansetron ODT (Zofran-ODT) disintegrating tablet 4 mg(Linked Group 3) 4 mg, Oral, Every 8 hours PRN, nausea, vomiting, Starting on Sat07/07/24 at 2146, 1st Line. If inadequate response within 60 minutes, proceed to next-line agent or contact provider if no further options ordered. Patient should allow tablet to dissolve on tongue. Do not remove from blister pack until just before administering. polyethylene glycol (PEG) 3350 (Miralax) packet 17 g 17 g, Oral, Daily PRN, constipation, Starting on Sat07/07/24 at 2146, 1st line for treatment of constipation - give scheduled if no bowel movement in past 24 hours. Linked Groups Order Group 1: Insulin Lispro (Humalog) injection 0-12 UnitsJump to med 0-12 Units, SubCUTAneous, 3 times daily with meals, First dose on Sat07/08/24 at 0800, Medium Dose Correction Algorithm Glucose: Dose: LESS than 150 No Insulin 150-199 2 Units 200-249 4 Units 250-299 6 Units 300-349 8 Units 350-400 10 Units Above 400 12 Units And Insulin Lispro (Humalog) injection 0-12 UnitsJump to med 0-12 Units, SubCUTAneous, Nightly, First dose on Sat07/07/24 at 2200, If eating or bolus tube feeding: Medium Dose Correction Algorithm Glucose: Dose: LESS than 150 No Insulin 150-199 2 Units 200-249 4 Units 250-299 6 Units 300-349 8 Units 350- 400 10 Units Above 400 12 Units Group 2: acetaminophen (Tylenol) tablet 650 mgJump to med 650 mg, Oral, Every 6 hours PRN, mild pain (1-3), fever, For temp greater than 100.4 F (38 C), Starting on Sat07/07/24 at 2146, Maximum dose of acetaminophen is 4000 mg from all sources in 24 hours. Or acetaminophen (Tylenol) suppository 650 mgJump to med 650 mg, Rectal, Every 6 hours PRN, mild pain (1-3), fever, For temp greater than 100.4 F (38 C), Starting on Sat07/07/24 at 2146, Administer if oral route cannot be used. Maximum dose of acetaminophen is 4000 mg from all sources in 24 hours. Group 3: ondansetron ODT (Zofran-ODT) disintegrating tablet 4 mgJump to med 4 mg, Oral, Every 8 hours PRN, nausea, vomiting, Starting on Sat07/07/24 at 2146, 1st Line. If inadequate response within 60 minutes, proceed to next-line agent or contact provider if no further options ordered. Patient should allow tablet to dissolve on tongue. Do not remove from blister pack until just before administering. Or ondansetron (Zofran) injection 4 mgJump to med 4 mg, IntraVENous, Every 6 hours PRN, nausea, vomiting, Starting on Sat07/07/24 at 2146, 1st Line. Give IV if patient is unable to take orally. If inadequate response within 60 minutes, proceed to next-line agent or contact provider if no further options ordered. Goals (unrecognized section and content) Goals may be documented in a n alternate sectionGoals may be documented in an alternate sectionGoals may be documented in an alternate section FOR RECORDS PERTAINING TO PATIENTS WHO ARE OR HAVE BEEN ENROLLED IN A CHEMICAL DEPENDENCY/SUBSTANCEABUSE PROGRAM, SOME INFORMATION MAY BE OMITTED. This clinical summary was aggregated from multiple sources. Caution should be exercised in using it in the provision of clinical care. This summary normalizes information from multiple sources, and as a consequence, information in this document may materially change the coding, format and clinical context of patient data. In addition, data may be omitted in some cases. CLINICAL DECISIONS SHOULD BE BASED ON THE PRIMARY CLINICAL RECORDS. [email or web address] provides no warranty or guarantee of the accuracy or completeness of information in this document.
[2024-12-30 07:42] LABS: Hematocrit 38.7 % (37-47); Hemoglobin 11.9 g/dL (12.0-15.0); Mean Corp Hgb Conc 30.7 g/dL (32-36); Mean Corpuscular Hgb 29.4 pg (27.0-32.0); Mean Corpuscular Volume 95.6 fL (81-99); Mean Platelet Vol. 9.6 fl (6.2-12.0); Platelet Count 340 K/mm3 (150-450); RBC Distribution Width CV 15.2 % (11.6-14.6); RBC Distribution Width SD 52.9 fl (35.1-43.9); Red Blood Count 4.05 M/mm3 (4.2-5.4); White Blood Count 13.1 K/mm3 (4.4-11.0)
== END ==
LOC: OLS.SANC 05:00
DX: I48.91 Unspecified atrial fibrillation (principal); I11.0 Hypertensive heart disease with heart failure; I50.9 Heart failure, unspecified; J44.9 Chronic obstructive pulmonary disease, unspecified; E78.5 Hyperlipidemia, unspecified
CPT/HCPCS: 36415; 85027